=== PATIENT | female | born 1980 | race Asian ===

== ENCOUNTER → 2021-01-28 12:27 | Outpatient (BNVA) | payer MEDICAID, SELFPAY | PROVIDERS: PCP Internal Medicine; Referring Provider Internal Medicine; Visit Provider Physician Assistant | DX: Z01.818 Encounter for other preprocedural examination (principal); E66.01 Morbid (severe) obesity due to excess calories; Z98.84 Bariatric surgery status | CPT/HCPCS: 99202 ==

== ENCOUNTER 2021-02-04 07:30 | Outpatient (REF) | payer MEDICAID, SELFPAY ==
[2021-02-04 07:58] LABS: MANUAL DIFF FLAG NO
[2021-02-04 08:15] LABS: Basophils Percent Auto 0.5 % (0-2); Eosinophils Absolute Auto 0.2 X10*3/uL (0.0-0.4); Eosinophils Percent Auto 2.9 % (0-4); Hemoglobin 12.8 g/dl (12.0-16.0); Imm Gran Abs Auto 0.02 X10*3/uL (0.00-0.03); Imm Gran Pct Auto 0.3 % (0.0-0.4); Lymphocytes Absolute Auto 2.5 X10*3/uL (1.2-4.9); Lymphocytes Percent Auto 33.4 % (20-40); Mean Corpuscular Hemoglobin 28.4 pg (27.0-33.0); Mean Corpuscular Volume 88.9 fL (80.0-98.0); Mean Platelet Volume 10.9 fL (9.4-12.3); Monocytes Absolute Auto 0.5 X10*3/uL (0.1-1.2); Monocytes Percent Auto 6.7 % (2-11); Neutrophils Absolute Auto 4.3 x10*3/uL (2.0-8.3); Neutrophils Percent Auto 56.2 % (45-73); Platelet Count 251 X10*3/uL (160-400); Red Cell Distribution Width 13.9 % (11.0-16.0); White Blood Count 7.6 X10*3/uL (4.8-10.8)
[2021-02-04 08:24] LABS: Estimated Average Glucose 108 mg/dL; Hemoglobin A1c % 5.4 %
[2021-02-04 08:48] LABS: Alanine Aminotransferase 30 U/L (0-31); Albumin Level 3.9 g/dL (3.5-5.0); Alkaline Phosphatase 65 U/L (39-117); Aspartate Amino Transferase 25 U/L (5-31); Bilirubin Direct 0.2 mg/dL (0.0-0.5); Bilirubin Total 0.2 mg/dL (0.0-1.0); Total Protein 6.8 g/dL (6.5-8.0)
[2021-02-04 08:49] LABS: Alanine Aminotransferase 31 U/L (0-31); Albumin Level 3.9 g/dL (3.5-5.0); Alkaline Phosphatase 67 U/L (39-117); Anion Gap 10 (12-20); Aspartate Amino Transferase 27 U/L (5-31); Bilirubin Total 0.3 mg/dL (0.0-1.0); Blood Urea Nitrogen 16 mg/dL (9-16); C Reactive Protein 0.29 mg/dL (< or = 0.50); Calcium 8.8 mg/dL (8.4-10.2); Carbon Dioxide 28 mmol/L (22-29); Chloride 107 mmol/L (96-108); Cholesterol 157 mg/dL; Estimated Glomerular Filt Rate > 60; Glucose Random 100 mg/dL (60-115); HDL Cholesterol 48 mg/dL; Iron 71 mcg/dL (30-160); LDL Cholesterol Calculated 93 mg/dl; Percent Iron Saturation 17 % (15-50); Potassium 4.2 mmol/L (3.3-5.1); Sodium 141 mmol/L (135-145); Total Iron Binding Capacity 423 mcg/dL (228-428); Total Protein 6.7 g/dL (6.5-8.0); Triglycerides 84 mg/dL; Unsaturated Iron Binding 352 ug/dL
[2021-02-04 09:10] LABS: Thyroid Stimulating Hormone 3.94 uIU/mL (0.32-4.0)
[2021-02-04 09:21] LABS: Ferritin 14 ng/mL (10-122); TSH reflex Free T4 3.73 uIU/mL (0.32-4.0); Vitamin D 25-OH Total 26.9 ng/mL (>30)
[2021-02-04 09:29] LABS: Folate 8.4 ng/mL (> or = 4.0); Vitamin B12 1330 pg/mL (200-900)
[2021-02-04 09:45] LABS: Insulin 11 uU/mL (2-29)
[2021-02-07 04:42] LABS: PTHI 32 pg/mL (14-64)
[2021-02-07 15:17] LABS: Zinc 65 mcg/dL (60-130)
[2021-02-08 11:51] LABS: Vitamin B1 11 nmol/L (8-30)
[2021-02-09 00:41] LABS: Vitamin A 32 mcg/dL (38-98)
== END 2021-02-04 07:31 | disposition home or self-care (01) ==
LOC: HO.LAB 07:30
PROVIDERS: Physician Assistant; Absent Provider Physician Assistant Medical; Visit Provider Nurse Practitioner Psychiatric/Mental Health
DX: Z01.818 Encounter for other preprocedural examination (principal); E66.01 Morbid (severe) obesity due to excess calories; F32.A Depression, unspecified; L73.2 Hidradenitis suppurativa; Z79.899 Other long term (current) drug therapy; Z98.84 Bariatric surgery status
CPT/HCPCS: 36415; 80053; 80061; 80076; 82248; 82306; 82607; 82728; 82746; 83036; 83525; 83540; 83970; 84425; 84443; 84590; 84630; 85025; 86140

== ENCOUNTER → 2021-02-16 08:13 | Outpatient (BNVA) | payer MEDICAID, SELFPAY | PROVIDERS: PCP Internal Medicine; Visit Provider Physician Assistant ==

== ENCOUNTER → 2021-03-09 08:11 | Outpatient (BNVA) | payer MEDICAID, SELFPAY | PROVIDERS: PCP Internal Medicine; Visit Provider Dietitian, Registered | DX: E66.01 Morbid (severe) obesity due to excess calories (principal); Z68.41 Body mass index [BMI] 40.0-44.9, adult | CPT/HCPCS: 97802 ==

== ENCOUNTER → 2021-03-16 08:12 | Outpatient (BNVA) | payer MEDICAID, SELFPAY | PROVIDERS: PCP Internal Medicine; Visit Provider Physician Assistant ==

== ENCOUNTER 2021-03-18 08:44 | Outpatient (REF) | payer MEDICAID, SELFPAY ==
--- NOTE | ~2021-03-18 | FL_ITS ---
EXAMINATION: XR FLUOROSCOPY UPPER GI WITH AIR CLINICAL INFORMATION: Preprocedure evaluation. COMPARISON: None TECHNIQUE: Air-contrast upper GI examination. FINDINGS: Patient swallowed thin and thick barium without difficulty. Patient states that she has no trouble swallowing pills. There is normal apposition of the vocal cords while saying E . There is normal elevation of the soft palate while saying candy . No nasopharyngeal reflux or tracheal aspiration was identified. No Zenker's diverticulum or significant cricopharyngeal hypertrophy is seen. The esophagus demonstrated normal distensibility without persistent stricture or ulceration. No significant hiatal hernia identified. No gastroesophageal reflux was elicited during the study including with water siphon test. Patient is status post gastric bypass surgery with no definite ulceration or abnormal mass appreciated on the views that could be obtainable. There is no obstruction to flow of contrast. Visualized bowel loops are unremarkable. FLUOROSCOPY TIME: 2.0 minutes DOSE AREA PRODUCT: 21.069 Gy-cm2 (wilburn-centimeter squared). FL/FL upper GI w air IMPRESSION: No significant abnormality appreciated with patient being status post prior gastric bypass surgery.
--- NOTE | ~2021-03-18 | US_ITS ---
EXAMINATION: US COMPLETE ABDOMEN WITH LIVER ELASTOGRAPHY CLINICAL INFORMATION: Preprocedural examination. COMPARISON: None. TECHNIQUE: Real-time imaging of the abdominal viscera. Noninvasive ultrasound liver fibrosis assessment is performed using Rohit ElastPQ point quantification shear wave elastography (pSWE) with a C5-2 MHz transducer. Multiple elastography samples are obtained. FINDINGS: PANCREAS: Normal. The visualized pancreatic head and body are normal in appearance. The remainder of the pancreas is obscured from visualization by the overlying bowel gas. ABDOMINAL AORTA: The proximal, middle, and distal aortic segments are normal in caliber. INFERIOR VENA CAVA: Visualized portions are normal. LIVER: Normal. The liver demonstrates normal size, contour and echogenicity. No focal lesion or intrahepatic biliary duct dilatation. The right lobe measures 14.7 cm in length. The left lobe measures 10.7 cm in length. Portal flow is towards the liver (hepatopetal). Shear wave liver elastography median stiffness is 1.2 m/s (reference: normal median stiffness is 1.3 m/s or less). IQR/median stiffness to assess sampling precision is 0.15 (reference: good quality data set is IQR/median stiffness of 0.15 or less). GALLBLADDER: Normal. The gallbladder is physiologically distended without evidence of stones, sludge, polyps, wall thickening or pericholecystic fluid. COMMON BILE DUCT: Normal in caliber measuring 0.3 cm in diameter. RIGHT KIDNEY: Normal. No hydronephrosis. No renal calculi or focal parenchymal lesions. The kidney measures 11.7 cm in maximum dimension. LEFT KIDNEY: Normal. No hydronephrosis. No renal calculi or focal parenchymal lesions. The kidney measures 12.0 cm in maximum dimension. SPLEEN: Normal. The spleen measures 11.7 cm in maximum dimension. FREE FLUID: None. US/US abdomen comp w elastography IMPRESSION: 1. Unremarkable sonographic appearance of the abdomen. 2. Liver elastography: Measurements are consistent with a high probability of normal liver stiffness. REFERENCE: Society of Radiologists in Ultrasound Liver Stiffness Thresholds (2020): LIVER STIFFNESS THRESHOLDS: *Liver Stiffness equal or less than 1.3 m/s: High probability of being normal. *Liver Stiffness less than 1.7 m/s: In the absence of other known clinical signs, rules out compensated advanced chronic liver disease. *Liver Stiffness 1.7-2.1 m/s: Suggestive of compensated advanced chronic liver disease but need further test for confirmation. *Liver Stiffness over 2.1 m/s: Rules in compensated advanced chronic liver disease. *Liver Stiffness over 2.4 m/s: Suggestive of clinically significant portal hypertension. QUALITY OF DATA SET: *IQR/Median value equal or less than 0.15 implies a quality data set. *IQR/Median value over 0.15 implies a poor quality data set. SIGNIFICANT CHANGE FROM PRIOR EXAM: Significant change if liver stiffness measurement is 10% or greater from prior exam. OTHER CONSIDERATIONS: The stage of liver fibrosis may be overestimated in the setting of acute hepatitis, liver inflammation, elevated liver function tests, hepatic vascular congestion, obstructive cholestasis, non-fasting state, and infiltrative diseases such as amyloidosis and lymphoma. In some patients with NAFLD, the liver stiffness thresholds for compensated advanced chronic liver disease may be lower. In causes other than viral hepatitis and NAFLD, liver stiffness thresholds are not well established.
== END 2021-03-18 08:45 | disposition home or self-care (01) ==
LOC: HO.US 08:44
PROVIDERS: Visit Provider Physician Assistant
DX: Z01.818 Encounter for other preprocedural examination (principal); E66.01 Morbid (severe) obesity due to excess calories; Z98.84 Bariatric surgery status
CPT/HCPCS: 74246; 76705; 76981

== ENCOUNTER 2021-04-08 12:43 | Outpatient (REF) | payer MEDICAID, SELFPAY ==
[2021-04-09 11:03] LABS: H Pylori Breath Test Negative (Negative)
== END 2021-04-08 12:44 | disposition home or self-care (01) ==
LOC: CF 12:43
PROVIDERS: PCP Internal Medicine; Referring Provider Internal Medicine; Visit Provider Physician Assistant
DX: Z01.818 Encounter for other preprocedural examination (principal); E66.01 Morbid (severe) obesity due to excess calories; Z98.84 Bariatric surgery status; Z11.0 Encounter for screening for intestinal infectious diseases
CPT/HCPCS: 36415; 83013; 99211

== ENCOUNTER → 2021-04-10 07:57 | Outpatient (BNVA) | payer MEDICAID, SELFPAY | PROVIDERS: PCP Internal Medicine; Visit Provider Physician Assistant ==

== ENCOUNTER 2021-04-23 09:16 | Outpatient (REF) | payer MEDICAID, SELFPAY ==
--- NOTE | ~2021-04-23 | XR_ITS ---
EXAMINATION: XR CHEST CLINICAL INFORMATION: Encounter for other preprocedural examination COMPARISON: Previous chest x-ray May 2019 TECHNIQUE: 2 views of the chest were obtained. FINDINGS: No significant abnormality is noted involving the heart, lungs, mediastinum, bony thorax or soft tissues. XR/XR chest 2V IMPRESSION: Unremarkable examination.
--- NOTE | 2021-04-23 09:26 | ECG_ITS ---
Test Reason : z01.818 Blood Pressure : / mmHG Vent. Rate : 075 BPM Atrial Rate : 075 BPM P-R Int : 180 ms QRS Dur : 094 ms QT Int : 392 ms P-R-T Axes : 039 036 021 degrees QTc Int : 437 ms Normal sinus rhythm Nonspecific T wave abnormality Abnormal ECG No previous ECGs available Referred By: Chantell Andrade Electronically Signed By:Rober Mckeon
== END 2021-04-23 09:17 | disposition home or self-care (01) ==
LOC: HO.XRAY 09:16
PROVIDERS: Visit Provider Physician Assistant
DX: Z01.818 Encounter for other preprocedural examination (principal)
CPT/HCPCS: 71046; 93005

== ENCOUNTER 2021-04-30 15:11 | Day surgery (SDC) | payer MEDICAID, SELFPAY ==
--- NOTE | 2021-04-29 10:41 | P.CONAN_ITS ---
Documented by User: Reena Squires NP 04/29/21 10:43 HPI - Anesthesia Eval Consult details Narrative: 40yo F for Upper Endoscopy s/p gastric bypass 2011 [facility] Active Problems Active Problems: All Active Problems (Updated 02/13/21 @ 10:49 by Freya Duarte, [facility]) Bipolar 1 disorder (Acute) Hx of borderline personality disorder (Acute) ADHD (Acute) Chronic post-traumatic stress disorder (PTSD) (Acute) Pre-op evaluation (Acute) Gastric bypass status for obesity (Acute) Morbid obesity (Acute) Past Medical History Medical History ADHD Bipolar 1 disorder Chronic post-traumatic stress disorder (PTSD) Hx of borderline personality disorder Family History Family History Mother Obesity Diabetes mellitus Sister No problems noted. Son Leukemia Obesity Surgical History Surgical History Gastric bypass status for obesity Social History Social History Alcohol intake: never Patient Tobacco Use Status: Never used Tobacco Advance Directives: No Advance Directives Information Provided: No Meds Allergies Allergy/AdvReac Type Severity Reaction Status Date / Time No Known Allergies Allergy Unverified 01/28/21 12:46 Home Medications Medication Instructions Recorded Confirmed Last Taken Type adalimumab 40 mg/0.4 mL 40 mg SUBCUT QWEEK 01/28/21 03/16/21 Unknown History subcutaneous syringe kit (Humira(CF)) bupropion HCl 300 mg 24 hr tablet, 300 mg PO QAM 01/28/21 03/16/21 Unknown History extended release (Wellbutrin XL) clonazepam 1 mg tablet (Klonopin) 1 mg PO DAILY PRN 01/28/21 03/16/21 Unknown History minocycline 100 mg capsule 100 mg PO BID 01/28/21 03/16/21 Unknown History spironolactone 100 mg tablet 100 mg PO BID 01/28/21 03/16/21 Unknown History ziprasidone HCl 80 mg capsule 80 mg PO BID 01/28/21 03/16/21 Unknown History Exam Exam Date and Time: April 29, 2021 1041 Pertinent Lab Results Pertinent Lab Results: Laboratory Tests 02/04/21 02/04/21 07:55 07:55 WBC 7.6 Hgb 12.8 Hct 40.0 Plt Count 251 Sodium 141 Potassium 4.2 Chloride 107 Carbon Dioxide 28 BUN 16 Creatinine 0.90 Narrative Narrative: EKG 04/2021 Vent. Rate : 075 BPM ? ? Atrial Rate : 075 BPM ?? P-R Int : 180 ms? QRS Dur : 094 ms ? ? QT Int : 392 ms ? ? ? P-R-T Axes : 039 036 021 degrees ?? QTc Int : 437 ms ? Normal sinus rhythm Nonspecific T wave abnormality Abnormal ECG No previous ECGs available Assessment and Plan Assessment Anesthesia Assessment: Chart Reviewed Documented by User: Marysol Rasmussen MD 04/30/21 15:48 [facility] Active Problems Active Problems: All Active Problems (Updated 02/13/21 @ 10:49 by Freya Duarte, [facility]) Bipolar 1 disorder (Acute) Hx of borderline personality disorder (Acute) ADHD (Acute) Chronic post-traumatic stress disorder (PTSD) (Acute) Pre-op evaluation (Acute) Gastric bypass status for obesity (Acute) Morbid obesity (Acute) Hydradenitis suppurativa Past Medical History Medical History ADHD Bipolar 1 disorder Chronic post-traumatic stress disorder (PTSD) Hx of borderline personality disorder Family History Family History Mother Obesity Diabetes mellitus Sister No problems noted. Son Leukemia Obesity Family history of problems with anesthesia: No Surgical History Surgical History Gastric bypass status for obesity History of Problems with Anesthesia: No Social History Social History Alcohol intake: never Patient Tobacco Use Status: Never used Tobacco Advance Directives: No Advance Directives Information Provided: No Meds Allergies Allergy/AdvReac Type Severity Reaction Status Date / Time No Known Allergies Allergy Unverified 01/28/21 12:46 Home Medications Medication Instructions Recorded Confirmed Last Taken Type adalimumab 40 mg/0.4 mL 40 mg SUBCUT QWEEK 01/28/21 03/16/21 Unknown History subcutaneous syringe kit (Humira(CF)) bupropion HCl 300 mg 24 hr tablet, 300 mg PO QAM 01/28/21 03/16/21 Unknown History extended release (Wellbutrin XL) clonazepam 1 mg tablet (Klonopin) 1 mg PO DAILY PRN 01/28/21 03/16/21 Unknown History minocycline 100 mg capsule 100 mg PO BID 01/28/21 03/16/21 Unknown History spironolactone 100 mg tablet 100 mg PO BID 01/28/21 03/16/21 Unknown History ziprasidone HCl 80 mg capsule 80 mg PO BID 01/28/21 03/16/21 Unknown History Exam Height,Weight and Vital Signs: Height 5 ft 3 in Weight 106.141 kg Vital Signs Temp Pulse Resp BP Pulse Ox 04/30/21 15:08 97.9 F 77 18 115/74 99 Airway Mallampati Class: II TM Dist: >3cm Neck ROM: Full Loose/Missing/Broken Teeth: Yes (Broken top left) Heart: RRR Lungs: CTAB Assessment and Plan Assessment Anesthesia Assessment: Anesthesia Plan Discussed Final Anesthetic Review Family History of Problems with Anesthesia: No History of Problems with Anesthesia: No NPO: Yes ASA Class: III Final Preanesthetic Review: No Changes in Pt Med Stat, Meds/Allgs Chart Reviewed, Consent Obtained/Reviewed and Anes Risks/Benef Reviewed Patient Risk: Intermediate Procedure Risk: Low Assessment/Block/Sedation in SS: Assess/Block/Sedation-SS Anesthetic Plan Anesthetic Plan: MAC: Disposition: Standard PACU
[2021-04-29 13:37] LABS: COVID-19 Test Negative (Negative); IDNOW Serial# 9DD0AD1C
--- NOTE | 2021-04-29 20:03 | MHC.SHP ---
Pre-Procedural Eval Section A Date of Service: 04/29/21 The patient is an INPATIENT: No The History & Physical has been completed within 30 days and I have reviewed it.: Yes Section B Chief Complaint: bariatric surgery Relevant Family History (Specify if Yes): No Relevant Social History: None Present Medications: None Medical History: No relevant PMH History of Previous Operations: Relevant previous surgery/procedure and date(s) (laparosocpic gastric bypass) Allergies: Allergies Allergy/AdvReac Type Severity Reaction Status Date / Time No Known Allergies Allergy Unverified 01/28/21 12:46 Review of Systems Sugical H&P ROS: Negative: Constitution, Cardiovascular, Respiratory, Neurological, Psychiatric, Hem-Onc, Allergic/Immunologic, Gastrointestinal, Genitourinary, Musculoskeletal, Integumentary, Endocrine and Eyes/Ears/Nose/Throat Exam Surgical H&P Exam: Normal: HEENT, Normal: Heart, Normal: Lungs, Normal: Extremities, Normal: Abdomen, Normal: Skin and Normal: Neurological Plan Diagnosis/Plan: Unchanged (Upper endoscopy to assess causes of GERD, weight gain and anatomy of previous gastric bypass) I have reviewed the history and physical and performed a pertinent physical examination on my patient. No changes have occurred unless specified.
[2021-04-30 15:08] VITALS: BP 115/74; PULSE 77; RESP 18; TEMP 36.6; O2SAT 99; BMI 41.4
[2021-04-30 16:02] LABS: UPreg QC Valid YES; Urine Pregnancy NEGATIVE (NEGATIVE)
--- NOTE | 2021-04-30 16:07 | P.BOP_ITS ---
Brief Operative Note Date of Service: 04/30/21 Pre-op diagnosis: GERD Post-op diagnosis: same Procedure: PROCEDURE DATE: ?04/30/2021 PREOPERATIVE DIAGNOSIS: GERD, s/p gastric bypass POSTOPERATIVE DIAGNOSIS: ?Same as above. 1) Redundant gastric pouch, 2) Candy cane gastro-jejunostomy PROCEDURE: Pefnocbd-iimdil-aftjfazlujz with biopsies Surgeon: ?Jamar Faulkner M.D.. Ph.D. Gas Reverser: ?None ? Anesthesia: IV sedation Estimated blood loss: ?Minimal FINDINGS AND PROCEDURE: ? OPERATIVE INDICATIONS: ?The patient is a 40 year old female known to me who underwent a laparoscopic gastric bypass at [facility]. The patient had inadequate weight loss so far and has GERD.? Based on this information I recommended an upper endoscopy to evaluate the patient's symptoms.? Risks and complications of the surgery were discussed with the patient in advance particularly the possibility of perforation or bleeding that may require surgical intervention. The patient understood the risks and was in agreement with the plan. ? PROCEDURE: After informed consent was obtained by the patient, the patient was ?transferred to the Operating Room and was placed in the supine position.? After successful induction of IV sedation, a mouth block was placed and the patient was placed in the left lateral decubitus position. An upper endoscopy was performed next, the oropharynx and esophagus appeared within the normal limits. There was no hiatal hernia.? The z-line was smooth. Two biopsies were obtained from the distal esophagus 2-3 cm proximal to the GE junction and two biopsies from the GE junction. The gastric pouch was entered, appeared to be large with significant lateral redundancy. There was no gastritis and the gastrojejunostomy was patent. A biopsy was obtained from the gastric pouch. No significant bleeding was noted from any of the biopsy sites. There was no anastomotic ulcer.?There was an elongated blind end of the Paige limb (candy cane anatomy). At that point the scope was advanced into the proximal small intestine (proximal Paige limb) which appeared to be normal as well. The Paige limb and the pouch were decompressed and the scope was withdrawn from the patient's mouth. The patient was awaken and was transferred in stable condition to the Recovery Room for further care. I was present and performed all steps of the procedure. There were no residents to assist with this case. Jamar Faulkner M.D., Ph.D. Surgeon: Mart Faulkner MD Anesthesia: MAC Was an Gas Reverser used for this Procedure?: No Estimated blood loss (mL): 0 IV fluids (mL): 500 Urine output (mL): 0 (No Chery to record) Pathology: other (1) gastric pouch, 2) GEJx1, 3) distal esophagus x1) Condition: stable Disposition: PACU
[2021-04-30 16:34] VITALS: BP 109/77; PULSE 85; RESP 14; TEMP 37.1; O2SAT 98
[2021-04-30 16:49] VITALS: BP 109/67; PULSE 74; RESP 18; O2SAT 100
== END 2021-04-30 17:01 | disposition home or self-care (01) ==
PROVIDERS: Nurse Practitioner; PCP Internal Medicine; Visit Provider Surgery
PROC: 0DJ08ZZ Inspection of Upper Intestinal Tract, Via Natural or Artificial Opening Endoscopic (ICD-10-PCS; CPT 43235; principal; 2021-04-30 15:50)
DX: K21.9 Gastro-esophageal reflux disease without esophagitis (principal); K91.1 Postgastric surgery syndromes; Z98.84 Bariatric surgery status; E66.01 Morbid (severe) obesity due to excess calories; Z68.41 Body mass index [BMI] 40.0-44.9, adult; Z20.822 Contact with and (suspected) exposure to COVID-19
CPT/HCPCS: 43239; 81025; 87635; 88305; 88341; 88342; J2250

== ENCOUNTER → 2021-05-01 08:37 | Outpatient (BNVA) | payer MEDICAID, SELFPAY | PROVIDERS: PCP Internal Medicine; Visit Provider Surgery ==

== ENCOUNTER → 2021-05-05 07:47 | Outpatient (REF) | payer MEDICAID, SELFPAY ==
--- NOTE | 2021-05-05 07:58 | CA_ITS ---
Acquisition Time: 2021-05-05 08:02:21 Total Exercise Time: 00:07:00 Test Indications: Abnormal ECG Medications: BUPROPION CLONAZAPAM MINOCYCLINE ADALIMUMAB Protocol: JAYRO Max HR: 173 BPM 95% of Pred: 182 BPM Max BP: 140/084 mmHG Max Work Load: 8.5 METS Exercise stress test with exercise 7 min of Jayro protocol, without anginal symptoms, with one PVC, with normotensive response to exercise, without EKG changes meeting criteria for ischemia. Test reviewed with Dr Vila. Referred By: Mart Faulkner Overread By: MADIHA ORELLANA
== END ==
LOC: HO.CARD 07:47
PROVIDERS: Visit Provider Surgery
DX: R94.31 Abnormal electrocardiogram [ECG] [EKG] (principal); Z79.899 Other long term (current) drug therapy
CPT/HCPCS: 93017

== ENCOUNTER → 2021-05-06 08:09 | Outpatient (BNVA) | payer MEDICAID, SELFPAY | PROVIDERS: PCP Internal Medicine; Visit Provider Surgery ==

== ENCOUNTER → 2021-05-07 13:45 | Outpatient (BNVA) | payer MEDICAID, SELFPAY | PROVIDERS: PCP Internal Medicine; Visit Provider Surgery ==

== ENCOUNTER 2021-05-13 06:10 | Inpatient (IN) | payer MEDICAID, SELFPAY ==
[2021-05-07 11:32] LABS: MANUAL DIFF FLAG NO
[2021-05-07 11:39] LABS: Basophils Percent Auto 0.4 % (0-2); Eosinophils Absolute Auto 0.2 X10*3/uL (0.0-0.4); Eosinophils Percent Auto 2.6 % (0-4); Hematocrit 40.3 % (37.0-47.0); Hemoglobin 12.9 g/dl (12.0-16.0); Imm Gran Abs Auto 0.08 X10*3/uL (0.00-0.03); Imm Gran Pct Auto 0.9 % (0.0-0.4); Lymphocytes Absolute Auto 2.3 X10*3/uL (1.2-4.9); Lymphocytes Percent Auto 24.6 % (20-40); Mean Corpuscular Hemoglobin 28.2 pg (27.0-33.0); Mean Platelet Volume 10.9 fL (9.4-12.3); Monocytes Absolute Auto 0.5 X10*3/uL (0.1-1.2); Monocytes Percent Auto 5.5 % (2-11); Neutrophils Absolute Auto 6.1 x10*3/uL (2.0-8.3); Platelet Count 276 X10*3/uL (160-400); Red Blood Count 4.58 X10*6/uL (4.20-5.50); Red Cell Distribution Width 13.8 % (11.0-16.0); White Blood Count 9.3 X10*3/uL (4.8-10.8)
[2021-05-07 12:03] LABS: Estimated Average Glucose 114 mg/dL; Hemoglobin A1C 152.6057 umol/L; Hemoglobin A1c % 5.6 %
[2021-05-07 12:11] LABS: Alanine Aminotransferase 32 U/L (0-31); Albumin Level 4.2 g/dL (3.5-5.0); Alkaline Phosphatase 69 U/L (39-117); Anion Gap 11 (12-20); Aspartate Amino Transferase 24 U/L (5-31); Bilirubin Total 0.5 mg/dL (0.0-1.0); Blood Urea Nitrogen 16 mg/dL (9-16); C Reactive Protein 0.26 mg/dL (< or = 0.50); Calcium 9.1 mg/dL (8.4-10.2); Carbon Dioxide 26 mmol/L (22-29); Chloride 104 mmol/L (96-108); Cholesterol 141 mg/dL; Estimated Glomerular Filt Rate > 60; Glucose Random 107 mg/dL (60-115); HDL Cholesterol 43 mg/dL; INTERNATIONAL NORM RATIO 1.1 (0.9-1.1); LDL Cholesterol Calculated 85 mg/dl; Potassium 4.3 mmol/L (3.3-5.1); Prothrombin Time 12.1 SEC (9.9-13.0); Sodium 137 mmol/L (135-145); Total Protein 7.2 g/dL (6.5-8.0); Triglycerides 65 mg/dL
[2021-05-07 12:13] LABS: Partial Thromboplastin Time 36.2 SEC (24.1-38.0)
[2021-05-07 12:24] LABS: TSH reflex Free T4 1.97 uIU/mL (0.32-4.0)
[2021-05-07 12:33] LABS: Insulin 12 uU/mL (2-29)
[2021-05-08 10:07] VITALS: BMI 40.7
--- NOTE | 2021-05-09 00:26 | P.HPSUR_ITS ---
Pre-Procedural Eval Section A Date of Service: 05/09/21 The patient is an INPATIENT: Yes The History & Physical has been completed within 30 days and I have reviewed it.: Yes Section B Chief Complaint: obesity Relevant Family History (Specify if Yes): No Relevant Social History: None Present Medications: None Medical History: No relevant PMH History of Previous Operations: Relevant previous surgery/procedure and date(s) (gastric bypass) Allergies: Allergies Allergy/AdvReac Type Severity Reaction Status Date / Time No Known Allergies Allergy Unverified 05/08/21 10:02 Review of Systems Sugical H&P ROS: Negative: Constitution, Cardiovascular, Respiratory, Neurological, Psychiatric, Hem-Onc, Allergic/Immunologic, Gastrointestinal, Genitourinary, Musculoskeletal, Integumentary, Endocrine and Eyes/Ears/Nos e/Throat Exam Surgical H&P Exam: Normal: HEENT, Normal: Heart, Normal: Lungs, Normal: Extremities, Normal: Abdomen, Normal: Skin and Normal: Neurological Plan Diagnosis/Plan: Unchanged I have reviewed the history and physical and performed a pertinent physical examination on my patient. No changes have occurred unless specified.
--- NOTE | 2021-05-12 10:01 | P.CONAN_ITS ---
Documented by User: Reena Squires NP 05/12/21 10:03 HPI - Anesthesia Eval Consult details Narrative: 40yo F for Gastrectomy Sleeve, EGD, poss diaphragmatic hernia, poss ventral hernia, poss open with Revision Gastric Bypass s/p EGD with TIVA 04/30/2021 s/p gastric bypass 2011 [facility] Active Problems Active Problems: All Active Problems (Updated 05/08/21 @ 10:03 by Mery Mares RN) Morbid obesity (Acute) Pre-op evaluation (Acute) Abnormal EKG (Acute) Gastric bypass status for obesity (Acute) Past Medical History Medical History (Updated 05/13/21 @ 11:20 by Mart Faulkner MD) ADHD Bipolar 1 disorder Chronic post-traumatic stress disorder (PTSD) Depression Hidradenitis Hx of borderline personality disorder Family History Family History Mother Obesity Diabetes mellitus Sister No problems noted. Son Leukemia Obesity Family history of problems with anesthesia: No Surgical History Surgical History (Updated 05/13/21 @ 11:20 by Mart Faulkner MD) Gastric bypass status for obesity Hx of esophagogastroduodenoscopy History of Problems with Anesthesia: No Social History Social History Are you a primary nurse behavioral health care to a significant other at home: No Do you presently have visiting nurse or other home services: No Alcohol intake: never Patient Tobacco Use Status: Never used Tobacco Use of substances other than those prescribed or required for medical reasons: No Currently Displaying Signs/Symptoms of Drug Intoxication Withdrawal: No Have you been hit, kicked, punched, or otherwise hurt by someone within the past year? If so, by whom?: No Are you DNR?: No Advance Directives: No Advance Directives Information Provided: Yes (mailed w/ instructions) Advance Directives on File: No Recently lost weight without trying: No How much weight loss: 24-33 pounds Eating poorly because of decreased appetite: No Nutrition screen score: 3 Nutrition Risks: No Nutritional Risk Patient : No FDLMP: 04/17/21 : No Meds Allergies Allergy/AdvReac Type Severity Reaction Status Date / Time No Known Allergies Allergy Unverified 05/08/21 10:02 Home Medications Medication Instructions Recorded Confirmed Last Taken Type bupropion HCl 300 mg 24 hr tablet, 300 mg PO QAM 01/28/21 05/08/21 05/07/21 History extended release (Wellbutrin XL) clonazepam 1 mg tablet (Klonopin) 1 mg PO DAILY PRN 01/28/21 05/08/21 05/07/21 History minocycline 100 mg capsule 100 mg PO BID 01/28/21 05/08/21 05/07/21 History spironolactone 100 mg tablet 100 mg PO BID 01/28/21 05/08/21 05/07/21 History valacyclovir 500 mg tablet 1 tab PO DAILY 05/08/21 05/08/21 Unknown History ziprasidone HCl 80 mg capsule 2 cap PO BEDTIME 05/08/21 05/08/21 Unknown History Exam Exam Date and Time: May 12, 2021 1001 Height,Weight and Vital Signs: Height 5 ft 3 in Weight 104.326 kg Pertinent Lab Results Pertinent Lab Results: Laboratory Tests 05/07/21 05/07/21 05/07/21 11:16 11:30 11:30 WBC 9.3 RBC 4.58 Hgb 12.9 Hct 40.3 MCV 88.0 MCH 28.2 MCHC 32.0 RDW 13.8 Plt Count 276 MPV 10.9 Immature Gran % (Auto) 0.9 H Neut % (Auto) 66.0 Lymph % (Auto) 24.6 [place] % (Auto) 5.5 Eos % (Auto) 2.6 Baso % (Auto) 0.4 Lymph # (Auto) 2.3 [place] # (Auto) 0.5 Eos # (Auto) 0.2 Baso # (Auto) 0.0 Abs Immat Gran (auto) 0.08 H Absolute Neuts (auto) 6.1 Absolute Nucleated RBC 0.000 Nucleated RBC % (auto) 0.0 PT 12.1 INR 1.1 APTT 36.2 Sodium Potassium Chloride Carbon Dioxide Anion Gap BUN Creatinine Estim Creat Clear Calc Estimated GFR Random Glucose Estimat Average Glucose Hemoglobin A1c % Insulin Level Calcium Total Bilirubin AST ALT Alkaline Phosphatase C-Reactive Protein Total Protein Albumin Triglycerides Cholesterol LDL Cholesterol, Calc HDL Cholesterol TSH Blood Type O Positive Antibody Screen NEGATIVE 05/07/21 05/07/21 11:30 11:30 WBC RBC Hgb Hct MCV MCH MCHC RDW Plt Count MPV Immature Gran % (Auto) Neut % (Auto) Lymph % (Auto) [place] % (Auto) Eos % (Auto) Baso % (Auto) Lymph # (Auto) [place] # (Auto) Eos # (Auto) Baso # (Auto) Abs Immat Gran (auto) Absolute Neuts (auto) Absolute Nucleated RBC Nucleated RBC % (auto) PT INR APTT Sodium 137 Potassium 4.3 Chloride 104 Carbon Dioxide 26 Anion Gap 11 L BUN 16 Creatinine 0.82 Estim Creat Clear Calc TNP Estimated GFR > 60 Random Glucose 107 Estimat Average Glucose 114 Hemoglobin A1c % 5.6 Insulin Level 12 Calcium 9.1 Total Bilirubin 0.5 AST 24 ALT 32 H Alkaline Phosphatase 69 C-Reactive Protein 0.26 Total Protein 7.2 Albumin 4.2 Triglycerides 65 Cholesterol 141 LDL Cholesterol, Calc 85 HDL Cholesterol 43 TSH 1.97 Blood Type Antibody Screen Narrative Narrative: EKG 04/2021 Vent. Rate : 075 BPM ? ? Atrial Rate : 075 BPM ?? P-R Int : 180 ms? QRS Dur : 094 ms ? ? QT Int : 392 ms ? ? ? P-R-T Axes : 039 036 021 degrees ?? QTc Int : 437 ms ? Normal sinus rhythm Nonspecific T wave abnormality Abnormal ECG No previous ECGs available Assessment and Plan Assessment Anesthesia Assessment: Chart Reviewed Final Anesthetic Review Family History of Problems with Anesthesia: No History of Problems with Anesthesia: No Documented by User: Glen Jimenez MD 05/13/21 14:54 [facility] Past Medical History Medical History (Updated 05/13/21 @ 11:20 by Mart Faulkner MD) ADHD Bipolar 1 disorder Chronic post-traumatic stress disorder (PTSD) Depression Hidradenitis Hx of borderline personality disorder Family History Family History Mother Obesity Diabetes mellitus Sister No problems noted. Son Leukemia Obesity Surgical History Surgical History (Updated 05/13/21 @ 11:20 by Mart Faulkner MD) Gastric bypass status for obesity Hx of esophagogastroduodenoscopy Social History Social History Are you a primary nurse behavioral health care to a significant other at home: No Do you presently have visiting nurse or other home services: No Alcohol intake: never Patient Tobacco Use Status: Never used Tobacco Use of substances other than those prescribed or required for medical reasons: No Currently Displaying Signs/Symptoms of Drug Intoxication Withdrawal: No Have you been hit, kicked, punched, or otherwise hurt by someone within the past year? If so, by whom?: No Are you DNR?: No Advance Directives: No Advance Directives Information Provided: Yes (mailed w/ instructions) Advance Directives on File: No Recently lost weight without trying: No How much weight loss: 24-33 pounds Eating poorly because of decreased appetite: No Nutrition screen score: 3 Nutrition Risks: No Nutritional Risk Patient : No FDLMP: 04/17/21 : No Meds Allergies Allergy/AdvReac Type Severity Reaction Status Date / Time No Known Allergies Allergy Unverified 05/08/21 10:02 Home Medications Medication Instructions Recorded Confirmed Last Taken Type bupropion HCl 300 mg 24 hr tablet, 300 mg PO QAM 01/28/21 05/08/21 05/07/21 History extended release (Wellbutrin XL) clonazepam 1 mg tablet (Klonopin) 1 mg PO DAILY PRN 01/28/21 05/08/21 05/07/21 History minocycline 100 mg capsule 100 mg PO BID 01/28/21 05/08/21 05/07/21 History spironolactone 100 mg tablet 100 mg PO BID 01/28/21 05/08/21 05/07/21 History valacyclovir 500 mg tablet 1 tab PO DAILY 05/08/21 05/08/21 Unknown History ziprasidone HCl 80 mg capsule 2 cap PO BEDTIME 05/08/21 05/08/21 Unknown History Exam Airway Mallampati Class: III TM Dist: >3cm Neck ROM: Full Loose/Missing/Broken Teeth: Yes (Molar , chipped ) Heart: rrr Lungs: bl breath sounds Assessment and Plan Assessment Anesthesia Assessment: Anesthesia Plan Discussed Final Anesthetic Review NPO: Yes ASA Class: III Final Preanesthetic Review: Meds/Allgs Chart Reviewed, Consent Obtained/Reviewed and Anes Risks/Benef Reviewed Patient Risk: High Procedure Risk: Intermediate Anesthetic Plan Anesthetic Plan: GA Disposition: Inp. Admit - Standard Bed
[2021-05-12 13:23] LABS: COVID-19 Test Negative (Negative)
[2021-05-13] VITALS (13 sets, daily range): BP systolic 107–138; BP diastolic 58–88; PULSE 62–88; RESP 16–18; TEMP 36.3–37.1; O2SAT 98–100
[2021-05-13 06:35] LABS: UPreg QC Valid YES; Urine Pregnancy NEGATIVE (NEGATIVE)
[2021-05-13] MEDS: Lactated Ringers 1,000 ML 100 ML IVCONT ×3 (07:12→22:24)
--- NOTE | 2021-05-13 08:16 | P.BOP_ITS ---
Brief Operative Note Date of Service: 05/13/21 Pre-op diagnosis: Refractory morbid obesity and comorbidities (see below) Post-op diagnosis: same (Extensive adhesions and large gastric pouch) Procedure: INITIAL PATIENT BMI ON PRESENTATION AT OUR OFFICE: 45.6 kg/m2 LAST BMI BEFORE SURGERY: 41.3 kg/m2 COMORBIDITIES: depression ?The patient presented to the Weight Management Program with significant obesity that was negatively impacting the patient's comorbidities as listed above.? The program is a phased program with a special focus on preoperative medical weight management to promote substantial weight loss and prepare the patients for the second phase of the program: bariatric surgery. The patient participated in an intensive weekly lifestyle ?intervention and exercise program during which the patient ?has lost between the initial office visit and the last preoperative visit 29.4 lbs, or 11.25% of initial actual body weight. It was deemed appropriate for the patient to now have bariatric surgery. In light of the current Covid-19 pandemic and the well documented strong association of obesity and increased risk of worse outcomes if infected with Covid-19 (REFERENCES: https://pubmed.ncbi.nlm.nih.gov/33858073/ ,? https://pubmed.ncbi.nlm.nih.gov/18205817/ ), any delay in undergoing bariatric surgery may lead to the patient's worsening health condition and increased?risk of more severe Covid-19 disease if infected. In addition a recent?study from [facility] published in [facility] on 03/09/2021 ([email or web address]) found that, among patients with obesity, substantial weight loss achieved with surgery was associated with improved outcomes of COVID-19 infection. The findings suggest that obesity can be a modifiable risk factor for the severity of COVID-19 infection. In addition, the patient met the BMI-criteria for bariatric surgery based on the BMI on initial presentation. The patient should not be penalized for achieving such weight loss because ?it is not sustainable long-term without surgical intervention and it was achieved in preparation for bariatric surgery ?under my direction and based on my published research ([email or web address] and? https://www.soard.org/article/[email or web address](02)11841-X/pdf ) ?that a 10% preoperati ve weight loss improves long-term weight loss after surgery and reduces perioperative complications.? Insurance carriers such as [facility] have endorsed my recommendations ?and have included in their policies criteria to include a 10% preoperative weight loss requirement. PROCEDURE: [id number], laparoscopic repair of incarcerated diaphragmatic hernia, laparoscopic lysis of adhesions and laparoscopic sleeve gastrectomy INDICATIONS: This is a 40 year-old female with a history of failed gastric bypass surgery and associated comorbid conditions as described previously. After appropriate workup, the patient was electively scheduled for laparoscopic, possibly open sleeve gastrectomy of the gastric pouch. The risks and complications of the procedure were discussed with the patient in advance, particularly the possibility of ; pulmonary embolism; staple line leak; bleeding; GERD; cardiac, pulmonary, or renal complications; as well as long-term problems such as insufficient weight loss, vitamin deficiency, strictures, or ulcers. The patient understood all the risks, and was in agreement to proceed with surgery. DESCRIPTION OF PROCEDURE: After informed consent was obtained from the patient, the patient was given preoperative antibiotics, and was transferred to the operating room. After successful induction of general anesthesia, pneumatic compressive devices were placed on both lower extremities. An upper endoscopy was performed next. The oropharynx and esophagus appeared to be within normal limits. There was no diaphragmatic hernia present consistent with the findings of the preoperative upper GI. The stomach was entered. Then after all fluid and air were suctioned and the stomach was fully decompressed, the scope was withdrawn and secured in the mid esophagus. The patient was then prepped and draped in the usual sterile manner, and abdominal access was established at the right upper quadrant with the Ellen technique. A 12 mm blunt port was inserted, and the abdomen was insufflated with CO2 to a pressure of 15 mmHg. Under direct visualization, additional ports were placed, specifically two 5 mm Versi-step ports to the left upper quadrant, and a 5 mm Versi-Step port to the right upper quadrant. 1% lidocained plan was used to infiltrate all port sites as well as all fascia defects. Using the EndoClose suture passer device, I placed a #1 Polysorb tie across the falciform ligament in order to retract it up against the abdominal wall and prevent injury of the ligament with our instruments during the procedure. Following that, the patient was placed in a steep reverse Trendelenburg position. An additional 5 mm port was placed to the right flank for the Mediflex retractor that was used to retract the left lobe of the liver. There were adhesions between the undersurface of the left lobe of the liver which was lysed with the Thunderbeat. Once this was done the liver retractor was re-positioned to get exposure to the hiatal area. Some omental fat overlying the Paige limb was mobilized and the gastro- jejunostomy was identified. I continued by dissecting between the gastric remnant and the gastric pouch . There were some posterior short gastric vessels that were not previously divided. Those were clipped and divided with the Thunderbeat. Separation of the gastric pouch from the spleen was difficult because of the severe fibrotic reaction from the use of Peristrips at the previous operation. Nevertheless, those were divided and that allowed exposure to the left deidra The gastro-esophageal fat pad was opened with the ultrasonic device (Thunderbeat, Olympus) and the anterior esophagus and hiatus were exposed. The angle of His was opened with the ultrasonic device the fundus of the stomach from any diaphragmatic and splenic attachments. Adhesiolysis took approximately 90 min to complete. There was an obvious significant-sized hiatal hernia. I continued dissecting along the hiatus toward the left deidra and the angle of His. I fully mobilized the fat pad that was incarcerated in the hernia. I then continued by dissecting even further into the posterior retro-esophageal space all the way to the angle of His. I continued to mobilize the esophagus into the mediastinum circumferentially. Both vagal nerves were seen and preserved. At that point, I was able to have at least 3 to 5 cm of esophagus into the abdomen.? After I completely mobilized the esophagus from both the left and right deidra and I had a good mobilization of the esophagus circumferentially, I closed the hernia defect with two interrupted #0 Surgidac sutures using the Endo Stitch device, which were placed one anterior and one posterior to the esophagus. ? There was significant redundancy of the stomach laterally and posteriorly. The redundant stomach was then divided with one Endo JONATHAN-45 and one JONATHAN-60 articulating purple load using the AEON stapler and loads. Every effort was made that the gastric sleeve had a tubular shape and an even caliber throughout. Once the sleeve resection was completed, the staple line of the gastric sleeve was reinforced with Hemoclips. The resected stomach was retrieved without difficulty from the Ellen port. ?An upper endoscopy was performed. There was no narrowing at the GE junction. The scope was easily advanced all the way to the jejunum which was clearly visualized. There was no narrowing anywhere and the sleeve's caliber was even throughout. The sleeve's staple line was inspected and there was no evidence of ischemia, bleeding or dehiscence. At that point the gastroscope was withdrawn from the patient?s mouth while we were decompressing the bowel and the stomach from any remaining air. I looked into the lesser sac to see how the sleeve was situating and it was situating well. There was no bleeding from the staple line, spleen, or short gastric vessels. The Mediflex retractor was removed, and the undersurface of the liver was inspected and there was no bleeding. The patient was placed in supine position. I closed the fascial defect of the 12 mm port site with a figure of eight #1 Polysorb suture. Then 100 cc 0.25 % Marcaine plain with 10 mg of Dexamethasone were used to infiltrate the fascial closure as well as all skin incisions. At this point, the abdomen was deflated, all ports were removed under direct vision, and no bleeding was noted from any of the port sites. The skin incisions were irrigated with saline and were closed with 4-0 absorbable monofilament sutures. Steri-Strips and OpSites were used to cover all incisions. The patient was extubated and was transferred in stable condition to the recovery room for further care. I was present and performed all kang parts of the procedure. Luisito Andrade was the ophthalmic assistant. There were no residents to assist with this case. Jamar Faulkner MD, PhD, FACS Surgeon: Mart Faulkner MD Anesthesia: GETA, local and other (TAP block) Was an Restaurant Manager used for this Procedure?: No Restaurant Manager: Chantell Andrade Estimated blood loss (mL): 10 IV fluids (mL): 2,800 Pathology: other (stomach) Condition: stable Disposition: PACU
--- NOTE | 2021-05-13 08:19 | PM.PNGS ---
Subjective Subjective Date of Service: 05/14/21 Interval history: Patient has mild incisional pain, but was able to ambulate and use the incentive spirometer. She is tolerating phase 1 bariatric diet Physical Exam Vital Signs: Vital Signs: Last Vital Signs Temp 97.6 F 05/13/21 06:30 Pulse 74 05/13/21 06:30 Resp 18 05/13/21 06:30 BP 122/74 05/13/21 06:30 Pulse Ox 98 05/13/21 06:30 BMI result Body Mass Index 40.7 GI: Inspection: Yes normal to inspection, Yes incision (clean, dry and intact) and Yes obesity Extrem: Right lower extremity: normal to inspection (no calf tenderness) Left lower extremity: normal to inspection (no calf tenderness) Objective Data Active Medications Lactated Ringer's (Lr) 1,000 mls @ 100 mls/hr IVCONT .Q10H [facility] Last Admin: 05/13/21 07:12 Dose: 100 mls/hr Documented by: ERNESTO Labs CBC & Chem 7: 05/14/21 06:05 05/14/21 06:05 Labs: Laboratory Results - last 24 hr 05/12/21 05/13/21 13:00 06:15 Urine Test NEGATIVE COVID-19 (LG) Negative COVID-19 Clin Com See Note Procedures Date of Service Date of Service: 05/14/21 Progress Note: A&P Assessment and plan (1) Morbid obesity: Status: Acute Assessment and Plan: s/p laparoscopic sleeve gastrectomy of the gastric pouch, lysis of adhesions Doing well Check am labs. If OK, will discharge home? (2) Gastric bypass status for obesity: Status: Acute (3) Depression: (4) Hidradenitis: (5) S/P laparoscopic sleeve gastrectomy: Status: Acute (6) Intra-abdominal adhesions: Status: Acute Fall Risk Details Current Medications: Current Medications Lactated Ringer's (Lr) 1,000 mls @ 100 mls/hr IVCONT .Q10H [facility] Last Admin: 05/13/21 07:12 Dose: 100 mls/hr Documented by: Time Spent With Patient Time: Total time spent is greater than 50% in coordination of care (as documented) at patient's floor/unit and/or counseling patient: Time with patient: less than 15 minutes Quality Stroke Does the patient have a stroke diagnosis?: No VTE Prior VTE?: No VTE Risk Level:: Surgical - moderate VTE Device Contraindication: N/A - Device Ordered VTE Drug Contraindication: Treatment Not Indicated
[2021-05-13] MEDS: Famotidine/PF 20 MG/2 ML VIAL IVPUSH ×2 (11:51→20:01)
--- NOTE | 2021-05-13 12:00 | P.DS_ITS ---
DS: Providers Provider Date of Service: 05/14/21 Date of admission: 05/13/21 06:10 Primary care physician: Carlo Santana MD DS: Diagnosis Discharge Diagnosis (1) Morbid obesity: Status: Acute (2) Gastric bypass status for obesity: Status: Acute (3) Depression: (4) Hidradenitis: (5) S/P laparoscopic sleeve gastrectomy: Status: Acute (6) Intra-abdominal adhesions: Status: Acute DS: Summary Hospital Course Hospital Course: ADMITTING DIAGNOSIS: morbid obesity, s/p GBP, ADHD, Bipolar, PTSD DISCHARGE DIAGNOSIS: same, s/p laparoscopic sleeve gastrectomy and lysis of adhesions PAST SURGICAL HISTORY: RNYGBP 2011 PROCEDURE: upper endoscopy, laparoscopic sleeve gastrectomy and lysis of adhesions DISCHARGE SUMMARY: History of Present Illness: The patient is a 40 year-old woman with a BMI of 45.6 kg/m2 and associated co- morbidities as described above. The patient had extensive work-up,lost 29.4 lbs preoperatively and was electively scheduled for laparoscopic, possible open sleeve gastrectomy s/p RNYGBP. Risks and complications of the surgery were discussed with the patient in advance, particularly the possibility of , pulmonary embolism, anastomotic leak, bleeding, bowel injury, GERD, cardiac, renal or pulmonary complications. The patient understood all the risks and was in agreement with the surgical plan. Hospital Course: The patient underwent an uneventful laparoscopic sleeve gastrectomy with lysis of adhesions on the day of admission. Postoperatively, the patient was transferred to the surgical floor. The patient received IV Acetaminophen and IV dilaudid for pain control. Patient was started on bariatric phase 1 diet POD #0. On postoperative day one, the patient was feeling well without nausea, vomiting, fevers, or tachycardia. The patient had some mild incisional pain and the abdomen was soft. Woodrow drain was placed in abdominal cavity. On the morning of postoperative day one, the patient was continued on 1 ounce of water or ice every half hour. During the day, the patient did fairly well, having some incisional pain, but able to ambulate adequately and to tolerate liquids well. Since the patient is doing well, we decided that the patient was ready to be discharged. The patient was given instructions to follow-up with me next week and to call my office for any fever over 101, persistent abdominal pain, nausea, vomiting, GERD, symptoms of DVT such as calf tenderness, or leg swelling, or pulmonary embolism such as chest pain or shortness of breath. The patient was also instructed to drink 40-60 ounces of liquids per day using the 1-ounce cups. The patient had been given prescriptions for Tylenol for pain, Zofran prn for nausea, and pantoprazole and carafate previously. The patient was encouraged to ambulate and use the incentive spirometer. The patient was allowed to shower, but no baths, and encouraged to stay active at home. All of these instructions were given to the patient personally. All questions were answered and the patient understood all instructions, the instructions were also given to the patient in print. Time Spent with Patient Time attestation: Total time spent providing and/or coordinating discharge services: Discharge coordination time: Less than 30 minutes Quality: Stroke Does the patient have a stroke diagnosis?: No Physical Exam Vital Signs: Vital Signs: Last Vital Signs Temp 97.5 F 05/13/21 11:23 Pulse 78 05/13/21 11:53 Resp 16 05/13/21 11:53 BP 127/88 05/13/21 11:53 Pulse Ox 99 05/13/21 11:53 BMI result Body Mass Index 40.7 DS: Data Data Completed and Pending Pending studies at discharge: Pending at discharge 05/13/21 10:52 Surgical [PTH] Routine Labs on day of discharge: Laboratory Results - last 24 hr 05/12/21 05/13/21 13:00 06:15 Urine Test NEGATIVE COVID-19 (LG) Negative COVID-19 Clin Com See Note Discharge Plan Discharge Anticipated Discharge Date/Time: 05/14/21 10:21 Patient Disposition: Home, Self-Care Discharge Diagnosis: s/p sleeve gastrectomy Referrals: Carlo Santana MD [Primary Care Provider] - 1 Week Discharge Medications: Continued ziprasidone HCl 80 mg capsule 2 cap PO BEDTIME 0RF valacyclovir 500 mg tablet 1 tab PO DAILY 0RF pantoprazole 40 mg tablet,delayed release (DR/EC) 40 mg PO DAILY Qty: 30 2RF sucralfate 100 mg/mL suspension 10 ml PO BID Qty: 400 2RF ondansetron HCl 4 mg tablet 4 mg PO Q12H Qty: 20 0RF minocycline 100 mg capsule 100 mg PO BID 0RF bupropion HCl [Wellbutrin XL] 300 mg tablet extended release 24 hr 300 mg PO QAM 0RF clonazepam [Klonopin] 1 mg tablet 1 mg PO DAILY PRN (Reason: Anxiety) 0RF Held spironolactone 100 mg tablet 100 mg PO BID 0RF Hold Instructions: Discuss restart with Dr Faulkner Discontinued cholecalciferol (vitamin D3) 50 mcg (2,000 unit) capsule 50 mcg PO DAILY Qty: 30 6RF vitamin A palmitate 10,000 unit tablet 20,000 unit PO DAILY 14 Days Qty: 28 0RF polyethylene glycol 3350 [Miralax] 17 gram powder in packet 17 g PO DAILY Qty: 14 0RF Rx Instructions: Mix each packet with 8oz of water and do 7 packets on 05/11/21 and another 7 packets on Discharge Orders: Discharge Order (Routine); Ordered 05/14/21 Ordered By: Mart Faulkner Diet: other Activity on Discharge: No heavy lifting Stand Alone Forms: Patient Portal Discharge page Care Plan Goals: weight loss Health Concerns: obesity Plan of Treatment: No tub baths, sex or returning to work until discussed at first post op appointment. No exercise, alcohol, tobacco or illegal drug use. Continue to use incentive spirometer hourly while awake. Walk in home for 5- 10 minutes every 2 hours during the first week. Continue phase 1 diet today and start phase 2 diet tomorrow morning. Follow all instructions in the bariatric handbook and call with any questions. 1. Please call your doctor or come back to the emergency room should any new symptoms arise. 2. You will receive a courtesy call from [facility] 24-48 hours after discharge. 3. Activity: abstain from alcohol, practice limited stair climbing, no bending, no driving, no exercise, no illicit substances, no lifting, no sex, no tub bath, no work. 4. Diet: continue as discussed with Dr. Faulkner. 5. Dressing Change/Wound Care: Do not change or remove surgical dressings unless they are wet or soiled. 6. Call your doctor if: - Your temperature exceeds 101.5 F - You experience excessive pain or swelling - You have an unexpected reaction to medication - You have excessive bleeding - You experience continued vomiting/nausea - Your incision begins to separate - Your incision shows signs of infection such as increased redness, swelling, excessive pain, heat, or drainage (light blood or clear fluid is normal) 7. General instructions: No lifting greater than 5 lbs for the next 4 weeks[address] driving within 24 hours of taking narcotic pain medications. If you do not move your bowels in the next 2 days, please take milk of magnesia over the counter. Please follow the post op diet and do not advance your diet until you are seen in the office in about 2 weeks. Please walk around your home every hour or two to prevent blood clots from forming in your legs. You do not need to wake from sleeping to walk. Please sleep in a bed or couch to prevent kinking at the hips and knees. Please take your incentive spirometer (your lung forge utility worker) home with you and use it for the next few days to prevent pneumonias. You may shower, no hot tubs, baths or swimming pools. Please call the office with any questions or concerns such as increasing abdominal pain, fever, chills, shortness of breath, chest pain, leg pain or swelling, or redness or drainage from your incisions. Do not hesitate to contact the office with any questions at [phone]. 8. Drain care per Dr Faulkner. The patient's medical history has been reviewed and they are considered low risk for post op DVT and therefore DVT prophylaxis is not considered necessary. Travel after surgery was reviewed. The patient has not disclosed any travel plans during the first 30 days after surgery and they have been advised that within the first 30 days after surgery any bus, plane, train or car travel over 2 hours in duration is contraindicated due to the possibility of developing blood clots from immobility. Any travel, needs to include periods of ambulation of 10 minutes in duration every 2 hours. The patient was instructed to discuss any plans for travel during this period with their bariatric surgeon. Assessment: stable, post op sleeve gastrectomy Discharge Date/Time: 05/14/21 09:16
[2021-05-13 12:18] LABS: Hematocrit 37.6 % (37.0-47.0); Hemoglobin 12.1 g/dl (12.0-16.0)
[2021-05-13] MEDS: Metoclopramide HCl 10 MG/2 ML VIAL IVPUSH (12:22)
[2021-05-13 12:31] LABS: Anion Gap 11 (12-20); Blood Urea Nitrogen 12 mg/dL (9-16); Calcium 8.7 mg/dL (8.4-10.2); Carbon Dioxide 26 mmol/L (22-29); Chloride 105 mmol/L (96-108); Creatinine Clr Calc Pharmacy 110.1; Estimated Glomerular Filt Rate > 60; Glucose Random 166 mg/dL (60-115); Potassium 4.3 mmol/L (3.3-5.1); Sodium 138 mmol/L (135-145)
[2021-05-13] MEDS: ondansetron HCL 4 MG/2 ML VIAL IVPUSH ×2 (13:03→19:57)
[2021-05-13] MEDS: ceFAZolin Sodium/Dextrose,Iso 2 GM/50 ML PIGGYBACK IV (13:23)
[2021-05-13] MEDS: clonazePAM 1 MG TABLET PO (21:13)
[2021-05-13] MEDS: HYDROmorphone HCl 0.5 MG/0.5 ML SYRINGE 0.25 MG IVPUSH (23:04)
[2021-05-14 00:05] VITALS: RESP 18
[2021-05-14] MEDS: 0.9 % Sodium Chloride Flush 3 ML SYRINGE IVFLUSH ×2 (00:41→07:11)
[2021-05-14] MEDS: HYDROmorphone HCl 0.5 MG/0.5 ML SYRINGE 0.25 MG IVPUSH (03:06)
[2021-05-14 04:00] VITALS: BP 104/63; PULSE 74; RESP 16; TEMP 36.5; O2SAT 99
[2021-05-14] MEDS: ondansetron HCL 4 MG/2 ML VIAL IVPUSH (04:27)
[2021-05-14 06:52] LABS: MANUAL DIFF FLAG NO
[2021-05-14 06:59] LABS: Basophils Percent Auto 0.1 % (0-2); Eosinophils Percent Auto 0.1 % (0-4); Hematocrit 31.1 % (37.0-47.0); Imm Gran Abs Auto 0.07 X10*3/uL (0.00-0.03); Imm Gran Pct Auto 0.5 % (0.0-0.4); Lymphocytes Absolute Auto 1.9 X10*3/uL (1.2-4.9); Mean Corpuscular HGB Conc 32.2 g/dl (31.0-35.0); Mean Corpuscular Hemoglobin 28.4 pg (27.0-33.0); Mean Corpuscular Volume 88.4 fL (80.0-98.0); Mean Platelet Volume 11.7 fL (9.4-12.3); Monocytes Absolute Auto 0.8 X10*3/uL (0.1-1.2); Neutrophils Absolute Auto 10.9 x10*3/uL (2.0-8.3); Neutrophils Percent Auto 79.3 % (45-73); Platelet Count 209 X10*3/uL (160-400); Red Blood Count 3.52 X10*6/uL (4.20-5.50); Red Cell Distribution Width 13.8 % (11.0-16.0); White Blood Count 13.8 X10*3/uL (4.8-10.8)
[2021-05-14] MEDS: Famotidine/PF 20 MG/2 ML VIAL IVPUSH (07:10)
[2021-05-14] MEDS: buPROPion HCl XL 300 MG TAB.ER.24H PO (07:10)
[2021-05-14 07:19] LABS: Anion Gap 9 (12-20); Blood Urea Nitrogen 9 mg/dL (9-16); Carbon Dioxide 27 mmol/L (22-29); Chloride 106 mmol/L (96-108); Creatinine Clr Calc Pharmacy 135.5; Estimated Glomerular Filt Rate > 60; Glucose Random 95 mg/dL (60-115); Potassium 3.8 mmol/L (3.3-5.1); Sodium 138 mmol/L (135-145)
[2021-05-14 07:20] VITALS: BP 100/56; PULSE 52; RESP 18; TEMP 36.5; O2SAT 100
--- NOTE | 2021-05-14 09:48 | MHC.CM.PN ---
EMR REVIEWED, PT S/P LAP SLEEVE GASTRECTOMY, CM MET W/PT AND S.O. WHO WAS AT BEDSIDE, PT REPORTS SHE LIVES W/S.O., IS INDEPENDENT W/ALL CARE, PT DENIES USE OF DME AND HAS NO HOME SERVICES, PT VERIFIES PCP [facility] PADRON VACCINE X2, PT HAS COMPLETED A HCP AND NAMED HER S.O. DOREEN LANDIN [phone] HER [facility] AND HAS CHOSEN NO ALTERNATE AT THIS TIME. PT WILL D/C W/CARIDAD DRAIN AND HAS HAD SUFFICIENT TRAINING FROM RN. D/C PLAN: HOME TODAY W/OUTPT FOLLOW-UP IN SURGEONS OFFICE, S.O. FOR TRANSPORT.
--- NOTE | 2021-05-14 12:27 | HO.POSTANES ---
Post Anesthesia Evaluation Post Anesthesia Evaluation Vital Signs: Vital Signs Temp Pulse Resp BP Pulse Ox 05/14/21 07:20 97.7 F 52 18 100/56 L 100 05/14/21 04:00 97.7 F 74 16 104/63 99 Anesthesia: General Endotracheal-GETA Mental Status: Awake Pain Control: Satisfactory Nausea/Vomiting: None Hydration: Adequate Anesthesia-Related Issues: No Anes. Related Issues
== END 2021-05-14 09:16 | disposition home or self-care (01) | DRG 403 ==
LOC: HO.SSSA 06:14 → HO.S3 11:16
PROVIDERS: Nurse Practitioner; Physician Assistant; Admitting Provider Surgery; PCP Internal Medicine; Visit Provider Surgery
PROC: 0DB64Z3 Excision of Stomach, Percutaneous Endoscopic Approach, Vertical (ICD-10-PCS; CPT 43845; principal; 2021-05-13 07:30)
DX: E66.01 Morbid (severe) obesity due to excess calories (principal); K44.0 Diaphragmatic hernia with obstruction, without gangrene; F32.A Depression, unspecified; L73.2 Hidradenitis suppurativa; K66.0 Peritoneal adhesions (postprocedural) (postinfection); Z68.41 Body mass index [BMI] 40.0-44.9, adult; Z20.822 Contact with and (suspected) exposure to COVID-19; Z79.899 Other long term (current) drug therapy
CPT/HCPCS: 36415; 80048; 80053; 80061; 81025; 83036; 83525; 84443; 85014; 85018; 85025; 85610; 85730; 86140; 86850; 86900; 86901; 87635; 88307; 88342; 99024; A4649; J0131; J0690; J1100; J1170; J2250; J2370; J2405; J2550; J2765; J3010

== ENCOUNTER → 2021-05-18 07:53 | Outpatient (BNVA) | payer MEDICAID, SELFPAY | PROVIDERS: PCP Internal Medicine; Referring Provider Internal Medicine; Visit Provider Surgery | DX: E66.01 Morbid (severe) obesity due to excess calories (principal); Z68.41 Body mass index [BMI] 40.0-44.9, adult | CPT/HCPCS: 99212 ==

== ENCOUNTER → 2021-06-19 08:22 | Outpatient (BNVA) | payer MEDICAID, SELFPAY | PROVIDERS: PCP Internal Medicine; Visit Provider Surgery | DX: E66.9 Obesity, unspecified (principal); Z68.38 Body mass index [BMI] 38.0-38.9, adult | CPT/HCPCS: 99212 ==

== ENCOUNTER → 2021-07-16 08:10 | Outpatient (BNVA) | payer MEDICAID, SELFPAY | PROVIDERS: PCP Internal Medicine; Visit Provider Dietitian, Registered | DX: Z48.815 Encounter for surgical aftercare following surgery on the digestive system (principal); Z98.84 Bariatric surgery status | CPT/HCPCS: 97803 ==

== ENCOUNTER → 2021-07-21 08:11 | Outpatient (BNVA) | payer MEDICAID, SELFPAY | PROVIDERS: PCP Internal Medicine; Referring Provider Surgery; Visit Provider Dietitian, Registered | DX: Z13.89 Encounter for screening for other disorder (principal) ==

== ENCOUNTER 2021-09-22 11:17 | Outpatient (REF) | payer MEDICAID, SELFPAY ==
[2021-09-22 13:40] LABS: MANUAL DIFF FLAG NO
[2021-09-22 13:46] LABS: Basophils Absolute Auto 0.1 X10*3/uL (0.0-0.2); Basophils Percent Auto 0.6 % (0-2); Eosinophils Absolute Auto 0.2 X10*3/uL (0.0-0.4); Eosinophils Percent Auto 2.5 % (0-4); Hematocrit 41.3 % (37.0-47.0); Hemoglobin 13.4 g/dl (12.0-16.0); Imm Gran Abs Auto 0.04 X10*3/uL (0.00-0.03); Imm Gran Pct Auto 0.4 % (0.0-0.4); Lymphocytes Absolute Auto 2.2 X10*3/uL (1.2-4.9); Lymphocytes Percent Auto 23.3 % (20-40); Mean Corpuscular HGB Conc 32.4 g/dl (31.0-35.0); Mean Corpuscular Hemoglobin 29.6 pg (27.0-33.0); Mean Corpuscular Volume 91.4 fL (80.0-98.0); Mean Platelet Volume 11.3 fL (9.4-12.3); Monocytes Absolute Auto 0.4 X10*3/uL (0.1-1.2); Monocytes Percent Auto 4.5 % (2-11); Neutrophils Absolute Auto 6.5 x10*3/uL (2.0-8.3); Neutrophils Percent Auto 68.7 % (45-73); Platelet Count 269 X10*3/uL (160-400); Red Blood Count 4.52 X10*6/uL (4.20-5.50); Red Cell Distribution Width 15.2 % (11.0-16.0); White Blood Count 9.5 X10*3/uL (4.8-10.8)
[2021-09-22 14:05] LABS: Alanine Aminotransferase 29 U/L (0-31); Albumin Level 4.2 g/dL (3.5-5.0); Alkaline Phosphatase 86 U/L (39-117); Anion Gap 13 (12-20); Aspartate Amino Transferase 27 U/L (5-31); Bilirubin Direct < 0.2 mg/dL (0.0-0.5); Bilirubin Total 0.2 mg/dL (0.0-1.0); Blood Urea Nitrogen 22 mg/dL (9-16); Calcium 9.6 mg/dL (8.4-10.2); Carbon Dioxide 26 mmol/L (22-29); Chloride 103 mmol/L (96-108); Estimated Glomerular Filt Rate > 60; Glucose Random 113 mg/dL (60-115); Potassium 4.8 mmol/L (3.3-5.1); Sodium 137 mmol/L (135-145); Total Protein 7.3 g/dL (6.5-8.0)
[2021-09-26 00:02] LABS: TS Negative Control Passed; TS Panel A 0; TS Panel B 0; TS Positive Control Passed; TSpotTB Negative (Negative)
== END 2021-09-22 11:18 | disposition home or self-care (01) ==
LOC: HO.HMGCLDS 11:17
PROVIDERS: Visit Provider Physician Assistant Medical
DX: L73.2 Hidradenitis suppurativa (principal); Z79.899 Other long term (current) drug therapy
CPT/HCPCS: 36415; 80048; 80076; 85025; 86481

== ENCOUNTER 2022-06-03 18:04 | Outpatient (REF) | payer MEDICAID, SELFPAY ==
--- NOTE | ~2022-06-03 | MR_ITS ---
EXAMINATION: MR LUMBAR SPINE WITHOUT CONTRAST CLINICAL INFORMATION: Lower back pain with left-sided sciatica. COMPARISON: Plain films of the lumbar spine 07/16/2017. TECHNIQUE: MRI of the lumbar spine was obtained using routine sequences without contrast. FINDINGS: VERTEBRAL BODIES AND PARASPINAL STRUCTURES: There is a mild grade 1 anterolisthesis of L4 on L5. There are retrolistheses of L1 on L2 and L3 on L4. There is multilevel narrowing of intervertebral disc height throughout the spine, sparing L5-S1. This is most severe at L1-L2 and L4-L5. Vertebral body heights are maintained, and no fractures are demonstrated. There are degenerative endplate contour changes with mild edematous signal at L3-L4. There is a Schmorl's node in superior endplate of L2 with mild edematous signal. Vertebral body heights are maintained and no fractures are demonstrated. Overall, marrow signal is homogenous. The visualized retroperitoneal structures are unremarkable. There is an incompletely visualized right ovarian cyst measuring up to 5.1 cm. CONUS MEDULLARIS AND CAUDA EQUINA: Normal, terminating at the level of T12-L1. The lower thoracic spinal cord appears normal. The cauda equina nerve roots and filum terminale appear normal. SPINAL LEVELS: T12-L1: The facet joints appear normal bilaterally. Disc contour is normal. There is no central stenosis or foraminal narrowing. L1-L2: There is mild bilateral facet arthropathy with ligamenta flava hypertrophy and small facet joint effusions. There is a shallow posterior disc protrusion without significant mass effect on the thecal sac extending into the inferior neural foramina without definite exiting nerve root impingement. There is no central stenosis. L2-L3: There is mild bilateral facet arthropathy. There is a small right foraminal disc protrusion with an annular fissure and there may be impingement on the exiting right L2 nerve root. The left neural foramen is patent, and there is no central stenosis. L3-L4: There is moderate bilateral facet arthropathy with ligamenta flava hypertrophy and facet joint effusions. There is a broad-based posterior disc protrusion which is focally more prominent in the midline with some distortion of the ventral thecal sac and there is narrowing of the subarticular recess on the left. There is mild central stenosis. There are bilateral foraminal disc protrusions extending far laterally, more prominent on the left and there is impingement on the exiting and extraforaminal L3 nerve roots, more severely on the left. L4-L5: There is severe bilateral facet arthropathy with ligamenta flava hypertrophy and facet joint effusions. There may be a small synovial cyst developing anteromedially off the left facet joint and there is some distortion of the dorsal thecal sac laterally on the left. There is unroofing of the disc as a result of the anterolisthesis. There are bilateral foraminal disc protrusions without definite exiting nerve root impingement. There is mild narrowing of the bilateral subarticular recesses, but there is no significant central stenosis. L5-S1: There is markedly severe right and severe left facet arthropathy. There is a shallow posterior disc protrusion without mass effect on the thecal sac and there is no central stenosis. There is no foraminal nerve root impingement MR/MR lumbar spine wo con IMPRESSION: 1. There is a grade 1 anterolisthesis of L4 on L5 secondary to facet arthropathy. There may be a small synovial cyst developing anteromedially on the left. There are bilateral foraminal disc protrusions without definite exiting nerve root impingement. There is no significant central stenosis. 2. At L3-L4 there is moderate facet arthropathy. There is a broad-based posterior disc protrusion extending far laterally with impingement on the exiting and extraforaminal L3 nerve roots, more severely on the left. There is mild central stenosis. 3. At L2-L3 there is a small right foraminal disc protrusion with an annular fissure and there may be impingement on the exiting right L2 nerve root. There is no central stenosis. 4. At L5-S1 there is markedly severe right and severe left facet arthropathy. There is no central stenosis or foraminal nerve root impingement. 5. There is a right sided ovarian cyst measuring up to 5.1 cm. Recommend prompt follow-up pelvic ultrasound.
== END 2022-06-03 18:05 | disposition home or self-care (01) ==
LOC: HO.MRI 18:04
PROVIDERS: PCP Internal Medicine; Visit Provider Internal Medicine
DX: M54.42 Lumbago with sciatica, left side (principal)
CPT/HCPCS: 72148

== ENCOUNTER 2022-06-21 14:47 | Outpatient (REF) | payer MEDICAID, SELFPAY ==
--- NOTE | ~2022-06-21 | XR_ITS ---
EXAMINATION: XR shoulder LT min 2V, XR shoulder RT min 2V CLINICAL INFORMATION: Reason for Exam pain COMPARISON: None TECHNIQUE: 4 views of the bilateral shoulders XR/XR shoulder LT min 2V FINDINGS/IMPRESSION: * Punctate calcifications adjacent to the right humeral head may reflect intra-articular loose bodies versus early hydroxyapatite deposition disease. * Left shoulder joint is unremarkable.
--- NOTE | ~2022-06-21 | XR_ITS ---
EXAMINATION: XR shoulder LT min 2V, XR shoulder RT min 2V CLINICAL INFORMATION: Reason for Exam pain COMPARISON: None TECHNIQUE: 4 views of the bilateral shoulders XR/XR shoulder RT min 2V FINDINGS/IMPRESSION: * Punctate calcifications adjacent to the right humeral head may reflect intra-articular loose bodies versus early hydroxyapatite deposition disease. * Left shoulder joint is unremarkable.
== END 2022-06-21 14:48 | disposition home or self-care (01) ==
LOC: HO.XRAY 14:47
PROVIDERS: Absent Provider Internal Medicine; PCP Internal Medicine; Visit Provider Internal Medicine
DX: M25.511 Pain in right shoulder (principal); M25.512 Pain in left shoulder
CPT/HCPCS: 73030

== ENCOUNTER 2022-07-07 11:50 | Outpatient (REF) | payer MEDICAID, SELFPAY ==
--- NOTE | ~2022-07-07 | XR_ITS ---
EXAMINATION: Lumbar spine, right shoulder, bilateral foot. CLINICAL INDICATION: Fell in shower with pain. COMPARISON: Right shoulder 06/21/2022 TECHNIQUE: lumbar spine 4 views. Right shoulder 4 views. 3 views each foot. FINDINGS: Lumbar spine: There is normal lumbar lordosis. There is mild dextroscoliosis lumbar spine. No visible acute fracture, dislocation or subluxation seen. No bony erosive changes. SI joints are symmetrical and normal. There is mild loss of L4-L5 disc height. There is minimal ventral spondylosis seen throughout the lumbar spine. Rest of the disc heights, vertebral heights and alignment is normal. No aggressive lytic or sclerotic process seen. Right shoulder: The glenohumeral joint and AC joint space is maintained normal. There is mild superior distal clavicular spurring at the AC joint. No loose bodies or bony erosive changes seen. The soft tissues are normal. Left foot: There is no visible acute fracture, dislocation or subluxation seen. There is an accessory bone at the proximal end of fifth metatarsal. The ankle mortise and subtalar joints are normal. This is associated with this mild soft tissue swelling. There is no abnormal joint effusion. The soft tissues are normal. Right foot: No acute fracture or dislocation seen. A small accessory bone in the proximal end of fifth metatarsal with mild soft tissue swelling. The ankle mortise and subtalar joints are normal. XR/XR foot RT min 3V IMPRESSION: Mild degenerative changes right lateral clavicle. No acute fracture or dislocation seen right shoulder. Mild degenerative changes L4-L5 disc level without any visible acute fracture or dislocation. There is minimal ventral spondylosis throughout lumbar spine. Bilateral axillary ossicles at the proximal end of fifth metatarsal with mild soft tissue swelling likely cause of pain as there is an arrow pointing to the area of pain. No acute fracture or dislocation in either foot.
== END 2022-07-07 11:51 | disposition home or self-care (01) ==
LOC: HO.XRAY 11:50
PROVIDERS: PCP Internal Medicine; Visit Provider Internal Medicine
DX: M79.672 Pain in left foot (principal); M79.671 Pain in right foot
CPT/HCPCS: 73630

== ENCOUNTER 2022-07-08 11:19 | Outpatient (REF) | payer MEDICAID, SELFPAY ==
[2022-07-08 11:39] LABS: MANUAL DIFF FLAG NO
[2022-07-08 12:10] LABS: Basophils Absolute Auto 0.1 X10*3/uL (0.0-0.2); Basophils Percent Auto 0.6 % (0-2); Eosinophils Absolute Auto 0.1 X10*3/uL (0.0-0.4); Eosinophils Percent Auto 0.8 % (0-4); Hematocrit 42.3 % (37.0-47.0); Hemoglobin 14.3 g/dl (12.0-16.0); Imm Gran Abs Auto 0.04 X10*3/uL (0.00-0.03); Imm Gran Pct Auto 0.4 % (0.0-0.4); Lymphocytes Absolute Auto 2.3 X10*3/uL (1.2-4.9); Lymphocytes Percent Auto 24.9 % (20-40); Mean Corpuscular HGB Conc 33.8 g/dl (31.0-35.0); Mean Corpuscular Hemoglobin 31.6 pg (27.0-33.0); Mean Corpuscular Volume 93.6 fL (80.0-98.0); Monocytes Absolute Auto 0.5 X10*3/uL (0.1-1.2); Monocytes Percent Auto 5.5 % (2-11); Neutrophils Absolute Auto 6.3 x10*3/uL (2.0-8.3); Neutrophils Percent Auto 67.8 % (45-73); Platelet Count 260 X10*3/uL (160-400); Red Blood Count 4.52 X10*6/uL (4.20-5.50); Red Cell Distribution Width 12.4 % (11.0-16.0); White Blood Count 9.3 X10*3/uL (4.8-10.8)
[2022-07-08 12:24] LABS: Partial Thromboplastin Time 30.5 SEC (26.0-36.4); Prothrombin Time 11.8 SEC (10.0-13.1)
[2022-07-08 12:48] LABS: Erythrocyte Sedimentation Rate 6 MM/HR (0-20)
[2022-07-15 12:12] LABS: Anti Nuclear Antibody Pattern Nuclear, Homogeneous; Anti Nuclear Antibody Screen POSITIVE (NEGATIVE)
== END 2022-07-08 11:20 | disposition home or self-care (01) ==
LOC: HO.LAB 11:19
PROVIDERS: PCP Internal Medicine; Visit Provider Internal Medicine
DX: Z01.84 Encounter for antibody response examination (principal); G89.29 Other chronic pain; M54.42 Lumbago with sciatica, left side
CPT/HCPCS: 36415; 85025; 85610; 85652; 85730; 86038; 86039

== ENCOUNTER 2022-07-12 07:40 | Emergency (ER) | payer MEDICAID, SELFPAY ==
--- NOTE | ~2022-07-12 | XR_ITS ---
EXAMINATION: Lumbar spine, right shoulder, bilateral foot. CLINICAL INDICATION: Fell in shower with pain. COMPARISON: Right shoulder 06/21/2022 TECHNIQUE: lumbar spine 4 views. Right shoulder 4 views. 3 views each foot. FINDINGS: Lumbar spine: There is normal lumbar lordosis. There is mild dextroscoliosis lumbar spine. No visible acute fracture, dislocation or subluxation seen. No bony erosive changes. SI joints are symmetrical and normal. There is mild loss of L4-L5 disc height. There is minimal ventral spondylosis seen throughout the lumbar spine. Rest of the disc heights, vertebral heights and alignment is normal. No aggressive lytic or sclerotic process seen. Right shoulder: The glenohumeral joint and AC joint space is maintained normal. There is mild superior distal clavicular spurring at the AC joint. No loose bodies or bony erosive changes seen. The soft tissues are normal. Left foot: There is no visible acute fracture, dislocation or subluxation seen. There is an accessory bone at the proximal end of fifth metatarsal. The ankle mortise and subtalar joints are normal. This is associated with this mild soft tissue swelling. There is no abnormal joint effusion. The soft tissues are normal. Right foot: No acute fracture or dislocation seen. A small accessory bone in the proximal end of fifth metatarsal with mild soft tissue swelling. The ankle mortise and subtalar joints are normal. XR/XR lumbar spine 2-3V IMPRESSION: Mild degenerative changes right lateral clavicle. No acute fracture or dislocation seen right shoulder. Mild degenerative changes L4-L5 disc level without any visible acute fracture or dislocation. There is minimal ventral spondylosis throughout lumbar spine. Bilateral axillary ossicles at the proximal end of fifth metatarsal with mild soft tissue swelling likely cause of pain as there is an arrow pointing to the area of pain. No acute fracture or dislocation in either foot.
--- NOTE | ~2022-07-12 | XR_ITS ---
EXAMINATION: Lumbar spine, right shoulder, bilateral foot. CLINICAL INDICATION: Fell in shower with pain. COMPARISON: Right shoulder 06/21/2022 TECHNIQUE: lumbar spine 4 views. Right shoulder 4 views. 3 views each foot. FINDINGS: Lumbar spine: There is normal lumbar lordosis. There is mild dextroscoliosis lumbar spine. No visible acute fracture, dislocation or subluxation seen. No bony erosive changes. SI joints are symmetrical and normal. There is mild loss of L4-L5 disc height. There is minimal ventral spondylosis seen throughout the lumbar spine. Rest of the disc heights, vertebral heights and alignment is normal. No aggressive lytic or sclerotic process seen. Right shoulder: The glenohumeral joint and AC joint space is maintained normal. There is mild superior distal clavicular spurring at the AC joint. No loose bodies or bony erosive changes seen. The soft tissues are normal. Left foot: There is no visible acute fracture, dislocation or subluxation seen. There is an accessory bone at the proximal end of fifth metatarsal. The ankle mortise and subtalar joints are normal. This is associated with this mild soft tissue swelling. There is no abnormal joint effusion. The soft tissues are normal. Right foot: No acute fracture or dislocation seen. A small accessory bone in the proximal end of fifth metatarsal with mild soft tissue swelling. The ankle mortise and subtalar joints are normal. XR/XR shoulder RT min 2V IMPRESSION: Mild degenerative changes right lateral clavicle. No acute fracture or dislocation seen right shoulder. Mild degenerative changes L4-L5 disc level without any visible acute fracture or dislocation. There is minimal ventral spondylosis throughout lumbar spine. Bilateral axillary ossicles at the proximal end of fifth metatarsal with mild soft tissue swelling likely cause of pain as there is an arrow pointing to the area of pain. No acute fracture or dislocation in either foot.
[2022-07-12 07:55] VITALS: BP 142/82; PULSE 94; RESP 16; TEMP 36.6; O2SAT 100; BMI 38.0
--- NOTE | 2022-07-12 08:00 | ED_ITS ---
HPI - Extremity Problem General Chief complaint: Extremity Injury, Upper Stated complaint: Fall T-1/R shoulder pain/Back pain Time Seen by Provider: 07/12/22 07:58 Source: patient Mode of arrival: ambulatory History of Present Illness HPI Narrative: 41-year-old female with past medical history of ADHD, bipolar, PTSD, depression, hidradenitis, s/p gastric sleeve '22, presenting to the ED complaining of right shoulder and low back pain s/p mechanical fall in shower around 22:00 last night. Reports slipped and fell falling onto right side, catching self, denies head trauma or LOC. Denies direct injury to back. Denies incontinence/re tention, numbness, tingling, weakness, hematuria, abdominal pain, headache MD Complaint: extremity pain Related Data Home Medications Medication Instructions Recorded Confirmed bupropion HCl 300 mg 24 hr tablet, 300 mg PO QAM 01/28/21 05/18/21 extended release (Wellbutrin XL) clonazepam 1 mg tablet (Klonopin) 1 mg PO DAILY PRN Anxiety 01/28/21 05/18/21 minocycline 100 mg capsule 100 mg PO BID 01/28/21 05/08/21 spironolactone 100 mg tablet 100 mg PO BID 01/28/21 05/08/21 valacyclovir 500 mg tablet 1 tab PO DAILY 05/08/21 05/08/21 ziprasidone HCl 80 mg capsule 2 cap PO BEDTIME 05/08/21 05/18/21 Previous Rx's Medication Instructions Recorded ondansetron HCl 4 mg tablet 4 mg PO Q12H nausea and vomiting 05/06/21 #20 tabs pantoprazole 40 mg tablet,delayed 40 mg PO DAILY #30 tabs 05/06/21 release sucralfate 100 mg/mL oral 10 ml PO BID #400 mL 05/06/21 suspension Allergies Allergy/AdvReac Type Severity Reaction Status Date / Time No Known Allergies Allergy Verified 07/12/22 07:58 Review of Systems Review of Systems: Constitutional: No Fever, No Chills ENT/Mouth: No Ear Pain, No Nasal Congestion, No sore throat, No Rhinorrhea, No Swallowing Difficulty Cardiovascular: No Chest Pain, No SOB Respiratory: No Cough, No Sputum Gastrointestinal: No Nausea, No Vomiting, No Diarrhea, No Constipation, No Abdominal pain Genitourinary: No Dysuria, No Urinary Frequency, No Hematuria, No Urinary Incontinence/retention, No Flank Pain Musculoskeletal: + joint pain, No Myalgias, No Joint Swelling Skin: No Skin Lesions, No rash Neuro: No Weakness, No Numbness, No Paresthesias Yes all other systems are reviewed and are negative Constitutional: Constitutional: Reports as per [facility] Past Medical History Attestation statement: The following information was validated with the patient. Medical History Abnormal EKG ADHD Bipolar 1 disorder Chronic post-traumatic stress disorder (PTSD) Depression Hidradenitis Hx of borderline personality disorder Intra-abdominal adhesions Pre-op evaluation Surgical History Gastric bypass status for obesity Hx of esophagogastroduodenoscopy S/P laparoscopic sleeve gastrectomy Family History Family History Mother Obesity Diabetes mellitus Sister No problems noted. Son Leukemia Obesity Social History Social History Are you a primary health care facilities inspector to a significant other at home: No Do you presently have visiting nurse or other home services: No Alcohol intake: never Patient Tobacco Use Status: Never used Tobacco Advance Directives: Yes Advance Directives on File: Yes Advance Directives Date on File: 05/15/21 service: No Current occupational status: unemployed Physical Exam Vital Signs: Vital Signs: Last Vital Signs Temp 97.8 F 07/12/22 07:55 Pulse 94 07/12/22 07:55 Resp 16 07/12/22 07:55 BP 142/82 H 07/12/22 07:55 Pulse Ox 100 07/12/22 07:55 O2 Del Method Room Air 07/12/22 07:55 BMI result Body Mass Index 38.0 Const: General: cooperative, healthy appearing and no acute distress Orientation/consciousness: patient oriented x3 Limitations: no limitations HEENT: Head: Yes normal to inspection and Yes atraumatic Ears: hearing grossly normal bilaterally General nose exam: Normal external nose present Face and sinus: Yes normal facial exam Eyes: General: appearance normal, both eyes and all related structures EOM: EOMs intact bilaterally Neck: Neck: Yes normal visual inspection and Yes no meningeal signs Resp: Effort & Inspection: normal respiratory effort and no respiratory distress Auscultation: clear to auscultation bilaterally Cardio: Rate: regular rate Heart sounds: S1 normal heart sound present and S2 normal heart sound present Peripheral pulses: Peripheral pulses 2+ throughout GI: Inspection: Yes normal to inspection Palpation (GI): Soft to palpation, nontender, no guarding and not rigid : General: Yes no CVA tenderness Back/Spine/Pelvis: Other: No midline cervical/thoracic/lumbar spinous tenderness/step-off or deformity. + right-sided trapezius muscle/cervical paraspinal tenderness to palpation. + bilateral lumbar paraspinal/MSK tenderness to palpation reproducing subjective complaints Back: no CVA tenderness Skin: Rashes: no rashes Wounds: no wounds Neuro: Other: Strength intact throughout. No saddle anesthesia. Sensation intact to light touch. Neurovascular intact distally General: patient oriented x3, tone normal, moves all extremities, no meningeal signs, no focal motor deficits and CN's II-XI intact bilaterally Gait exam (Neuro): Normal gait present Motor exam (neuro): 5/5 motor strength present throughout Extrem: General: Yes normal to inspection Course Course Course Narrative: XR lumbar spine 2-3V/XR shoulder RT min 2V IMPRESSION: Mild degenerative changes right lateral clavicle. No acute fracture or dislocation seen right shoulder. ? Mild degenerative changes L4-L5 disc level without any visible acute fracture or dislocation. There is minimal ventral spondylosis throughout lumbar spine. ? Bilateral axillary ossicles at the proximal end of fifth metatarsal with mild soft tissue swelling likely cause of pain as there is an arrow pointing to the area of pain. ? No acute fracture or dislocation in either foot. >> patient outpatient foot x-rays on 07/07 which were read at the same time as ED images today. Results discussed with patient including worrisome signs and symptoms and strict return precautions, and when to return to the emergency department. They verbalized understanding and feel safe for discharge at this time. Medications Administered Discontinued Medications Generic Name Dose Route Start Last Admin Trade Name Fremaggy PRN Reason Stop Dose Admin Lidocaine 1 patch 07/12/22 08:14 07/12/22 09:01 Lidocaine 4 % Patch Adh..Patch TRANSDERMA 07/12/22 08:15 1 patch ONCE ONE Administration Protocol Medical Decision Making Medical Decision Making MDM Narrative: 41-year-old female with past medical history of ADHD, bipolar, PTSD, depression, hidradenitis, s/p gastric sleeve '22, presenting to the ED complaining of right shoulder and low back pain s/p mechanical fall in shower around 22:00 last night. On exam vital signs stable, NAD, nontoxic appearing, no midline spinous tenderness or red flag symptoms. PE as above. Concern for strain vs MSK pain/spasming. Low suspicion for fracture, cauda equina, cord compression, or epidural abscess. Low suspicion for pyelo/UTI were cervical dissection plan: X-ray, pain control, re-evaluate Please refer to course for remaining clinical decision making, interpretation of labs/imaging results, and discussions with consultants and/or family members. Differential Diagnosis Differential Diagnoses: The differential diagnosis associated with the presentation includes As above Admission/Observation Consideration of admission/observation: Escalation of care including admission/observation considered Lab Data MDM Lab Attestation statement: I reviewed the patient's lab results. Radiology Impression Discussion of test interpretation with radiology: I have reviewed the radiologist's reading. External Record Review External record reviewed: Inpatient record, Office record, Outpatient record, Prior outpatient labs, Prior outpatient radiology, Primary care record and Outside ED record Discharge Plan Discharge Patient Disposition: Home, Self-Care Prescriptions: No Action ziprasidone HCl 80 mg capsule 2 cap PO BEDTIME valacyclovir 500 mg tablet 1 tab PO DAILY pantoprazole 40 mg tablet,delayed release (DR/EC) 40 mg PO DAILY Qty: 30 2RF sucralfate 100 mg/mL suspension 10 ml PO BID Qty: 400 2RF ondansetron HCl 4 mg tablet 4 mg PO Q12H Qty: 20 0RF minocycline 100 mg capsule 100 mg PO BID spironolactone 100 mg tablet 100 mg PO BID Hold Instructions: Discuss restart with Dr Faulkner bupropion HCl [Wellbutrin XL] 300 mg tablet extended release 24 hr 300 mg PO QAM clonazepam [Klonopin] 1 mg tablet 1 mg PO DAILY PRN (Reason: Anxiety) Referrals: Carlo Santana MD [Primary Care Provider] - 5 days
[2022-07-12] MEDS: Lidocaine 4 % Patch ADH..PATCH 1 PATCH TRANSDERMA (09:01)
== END 2022-07-12 11:13 | disposition home or self-care (01) ==
PROVIDERS: Emergency Provider Emergency Medicine; PCP Internal Medicine
DX: M25.511 Pain in right shoulder (principal); M54.50 Low back pain, unspecified; Z79.899 Other long term (current) drug therapy
CPT/HCPCS: 72100; 73030; 99282; 99283

== ENCOUNTER 2022-07-16 12:55 | Outpatient (REF) | payer MEDICAID, SELFPAY ==
--- NOTE | ~2022-07-16 | US_ITS ---
EXAMINATION: US PELVIS CLINICAL INFORMATION: Ovarian cyst on MRI. 41-year-old, LMP 06/28/2022 COMPARISON: Lumbar spine MRI dated 06/03/2022 TECHNIQUE: Ultrasound of the pelvis is performed using both transabdominal and transvaginal transducers along with Doppler. Transvaginal imaging is performed due to inadequate visualization transabdominally. FINDINGS: Uterus: The uterus is anteverted and measures 9.0 x 3.6 x 5.1 cm. The double wall endometrial thickness is 0.6 mm. The uterus is smooth in contour and has normal myometrial echogenicity. No visible fibroid. Adnexa: Both ovaries are visualized. There is normal color flow to the adnexa. There is no ovarian torsion. There is no pelvic ascites or fluid collection. Right ovary measures 6.9 x 4.6 x 5.4 cm. Unilocular anechoic avascular cyst measures 5.2 x 3.8 x 4.8 cm. Left ovary measures 4.4 x 2.1 x 1.9 cm. US/US pelvic and transvaginal IMPRESSION: Right ovarian unilocular anechoic avascular cyst measures 5.2 cm. Findings likely represent a probable benign cyst. Recommend followup ultrasonography in 3-6 months.
== END 2022-07-16 12:56 | disposition home or self-care (01) ==
LOC: HO.HMGCX 12:55
PROVIDERS: PCP Internal Medicine; Visit Provider Internal Medicine
DX: N83.201 Unspecified ovarian cyst, right side (principal)
CPT/HCPCS: 76830; 76856

== ENCOUNTER → 2022-07-23 13:13 | Outpatient (BNVA) | payer MEDICAID, SELFPAY | PROVIDERS: PCP Internal Medicine; Visit Provider Nurse Practitioner Family | DX: M54.16 Radiculopathy, lumbar region (principal); M62.838 Other muscle spasm; M47.816 Spondylosis without myelopathy or radiculopathy, lumbar region; M53.3 Sacrococcygeal disorders, not elsewhere classified | CPT/HCPCS: 99202 ==

== ENCOUNTER → 2022-07-29 10:51 | Outpatient (BNVA) | payer MEDICAID, SELFPAY | PROVIDERS: PCP Internal Medicine; Referring Provider Internal Medicine; Visit Provider Physician Assistant Surgical | DX: E66.9 Obesity, unspecified (principal); Z68.37 Body mass index [BMI] 37.0-37.9, adult; Z98.84 Bariatric surgery status | CPT/HCPCS: 99212 ==

== ENCOUNTER 2022-08-17 05:48 | Outpatient (REF) | payer MEDICAID, SELFPAY ==
--- NOTE | ~2022-08-17 | FL_ITS ---
EXAMINATION: XR FLUOROSCOPY WITH IMAGES CLINICAL INFORMATION: Spondylosis without myelopathy or radiculopathy, lumbar region. COMPARISON: None available. TECHNIQUE: Fluoroscopy Supervised By: Dr. Badillo. Fluoroscopy Time: 0.6 min. Cumulative Dose: 8.56 mGy. DAP: 0.148 Gycm2. Images: 6. FINDINGS: Images demonstrate needle placement and contrast injection adjacent to the bilateral lateral L3, L4 and L5 vertebral bodies FL/FL guidance in treatment room IMPRESSION: Fluoroscopy guidance for pain management procedure.
== END 2022-08-17 05:49 | disposition home or self-care (01) ==
LOC: CF 05:48
PROVIDERS: Visit Provider Anesthesiology
DX: M47.816 Spondylosis without myelopathy or radiculopathy, lumbar region (principal); M54.16 Radiculopathy, lumbar region; M62.838 Other muscle spasm; M53.3 Sacrococcygeal disorders, not elsewhere classified
CPT/HCPCS: 64493; 64494

== ENCOUNTER → 2022-08-19 10:38 | Outpatient (BNVA) | payer MEDICAID, SELFPAY | PROVIDERS: PCP Internal Medicine; Visit Provider Nurse Practitioner Family | DX: M53.3 Sacrococcygeal disorders, not elsewhere classified (principal); M47.816 Spondylosis without myelopathy or radiculopathy, lumbar region; M25.50 Pain in unspecified joint | CPT/HCPCS: 99212 ==

== ENCOUNTER 2022-08-23 07:52 | Outpatient (REF) | payer MEDICAID, SELFPAY ==
[2022-08-23 09:07] LABS: Alanine Aminotransferase 25 U/L (0-31); Albumin Level 4.2 g/dL (3.5-5.0); Alkaline Phosphatase 52 U/L (39-117); Anion Gap 11 (12-20); Aspartate Amino Transferase 24 U/L (5-31); Bilirubin Total 0.4 mg/dL (0.0-1.0); Blood Urea Nitrogen 10 mg/dL (9-16); C Reactive Protein < 0.10 mg/dL (< or = 0.50); Calcium 9.5 mg/dL (8.4-10.2); Carbon Dioxide 25 mmol/L (22-29); Chloride 109 mmol/L (96-108); Cholesterol 159 mg/dL; Estimated Glomerular Filt Rate > 60; Glucose Random 91 mg/dL (60-115); HDL Cholesterol 40 mg/dL; LDL Cholesterol Calculated 99 mg/dl; Potassium 4.3 mmol/L (3.3-5.1); Sodium 141 mmol/L (135-145); Total Protein 6.7 g/dL (6.5-8.0); Triglycerides 104 mg/dL
[2022-08-23 09:08] LABS: Estimated Average Glucose 97 mg/dL
[2022-08-23 09:56] LABS: Folate 11.2 ng/mL (> or = 4.0); Insulin 13 uU/mL (2-29); TSH reflex Free T4 1.73 uIU/mL (0.32-4.0); Vitamin B12 773 pg/mL (200-900); Vitamin D 25-OH Total 28.9 ng/mL (>30)
[2022-08-24 12:39] LABS: Calcium (PTHI) 8.8 mg/dL (8.6-10.2); PTHI 10 pg/mL (16-77)
[2022-08-28 00:14] LABS: Zinc 73 mcg/dL (60-130)
[2022-08-28 11:23] LABS: Vitamin B1 8 nmol/L (8-30)
[2022-08-29 01:09] LABS: Vitamin A 51 mcg/dL (38-98)
== END 2022-08-23 07:53 | disposition home or self-care (01) ==
LOC: HO.LAB 07:52
PROVIDERS: PCP Internal Medicine; Visit Provider Physician Assistant Surgical
DX: Z98.84 Bariatric surgery status (principal)
CPT/HCPCS: 36415; 80053; 80061; 82306; 82607; 82746; 83036; 83525; 83970; 84425; 84443; 84590; 84630; 86140

== ENCOUNTER → 2022-09-02 11:31 | Day surgery (SDC) | payer MEDICAID, SELFPAY ==
--- NOTE | 2022-09-01 09:07 | P.CONAN_ITS ---
Documented by User: Reena Squires NP 09/01/22 09:11 HPI - Anesthesia Eval Consult details Narrative: 42yo F for Left L4-L5 Transforaminal Epidural Steroid Injection Hx gastric bypass 05/2021 [facility] Active Problems Active Problems: All Active Problems (Updated 05/18/21 @ 07:59 by Aurora Mena LPN) Polyarthralgia (Acute) Sacroiliac joint pain (Acute) Lumbar facet arthropathy (Acute) Lumbar back pain with radiculopathy affecting left lower extremity (Acute) BMI 38.0-38.9,adult (Acute) Obesity (Acute) Intra-abdominal adhesions (Acute) S/P laparoscopic sleeve gastrectomy (Acute) Morbid obesity (Acute) Gastric bypass status for obesity (Acute) Past Medical History Medical History Abnormal EKG ADHD Bipolar 1 disorder Chronic post-traumatic stress disorder (PTSD) Depression Hidradenitis Hx of borderline personality disorder Intra-abdominal adhesions Pre-op evaluation Family History Family History Mother Obesity Diabetes mellitus Sister No problems noted. Son Leukemia Obesity Family history of problems with anesthesia: No Surgical History Surgical History Gastric bypass status for obesity Hx of esophagogastroduodenoscopy S/P laparoscopic sleeve gastrectomy History of Problems with Anesthesia: No Social History Social History Are you a primary director of healthcare systems to a significant other at home: No Do you presently have visiting nurse or other home services: No Alcohol intake: never Patient Tobacco Use Status: Never used Tobacco Use of substances other than those prescribed or required for medical reasons: No Are you DNR?: No Advance Directives: No Advance Directives Information Provided: Yes Advance Directives Date on File: 05/15/21 service: No Current occupational status: unemployed Meds Allergies Allergy/AdvReac Type Severity Reaction Status Date / Time No Known Allergies Allergy Verified 08/19/22 11:00 Home Medications Medication Instructions Recorded Confirmed Last Taken Type bupropion HCl 300 mg 24 hr tablet, 300 mg PO QAM 01/28/21 07/29/22 05/07/21 History extended release (Wellbutrin XL) minocycline 100 mg capsule 100 mg PO BID 01/28/21 07/29/22 05/07/21 History spironolactone 100 mg tablet 100 mg PO BID 01/28/21 07/29/22 05/07/21 History valacyclovir 500 mg tablet 1 tab PO DAILY 05/08/21 07/29/22 Unknown History ziprasidone HCl 80 mg capsule 2 cap PO BEDTIME 05/08/21 07/29/22 Unknown History amlodipine 5 mg tablet 5 mg PO QAM 07/23/22 07/29/22 Unknown History lidocaine 5 % topical ointment topical mild pain 07/23/22 07/29/22 Unknown History celecoxib 200 mg capsule 200 mg PO moderate pain 07/29/22 07/29/22 Unknown History meloxicam 15 mg tablet 15 mg PO QAM 07/29/22 07/29/22 Unknown History methocarbamol 500 mg tablet 500 mg PO Q6H 07/29/22 07/29/22 Unknown History betamethasone dipropionate 0.05 % topical 08/19/22 Unknown History topical ointment cetirizine 10 mg tablet 10 mg PO QAM 08/19/22 Unknown History dulaglutide 0.75 mg/0.5 mL 0.75 mg subcut QWEEK 08/19/22 Unknown History subcutaneous pen injector (Trulicity) hydrocodone 5 mg-acetaminophen 325 1 tab PO Q6H PRN severe pain 08/19/22 Unknown History mg tablet Exam Exam Date and Time: September 01, 2022 0907 Pertinent Lab Results Pertinent Lab Results: Laboratory Tests 07/08/22 08/23/22 11:37 08:04 WBC 9.3 Hgb 14.3 Hct 42.3 Plt Count 260 Sodium 141 Potassium 4.3 Chloride 109 H Carbon Dioxide 25 BUN 10 Creatinine 0.83 Assessment and Plan Assessment Anesthesia Assessment: Chart Reviewed Final Anesthetic Review Family History of Problems with Anesthesia: No History of Problems with Anesthesia: No Documented by User: Ann Ca MD 09/02/22 12:54 [facility] Past Medical History Medical History Abnormal EKG ADHD Bipolar 1 disorder Chronic post-traumatic stress disorder (PTSD) Depression Hidradenitis Hx of borderline personality disorder Intra-abdominal adhesions Pre-op evaluation Family History Family History Mother Obesity Diabetes mellitus Sister No problems noted. Son Leukemia Obesity Surgical History Surgical History Gastric bypass status for obesity Hx of esophagogastroduodenoscopy S/P laparoscopic sleeve gastrectomy Social History Social History Are you a primary director of healthcare systems to a significant other at home: No Do you presently have visiting nurse or other home services: No Alcohol intake: never Patient Tobacco Use Status: Never used Tobacco Use of substances other than those prescribed or required for medical reasons: No Are you DNR?: No Advance Directives: No Advance Directives Information Provided: Yes Advance Directives Date on File: 05/15/21 service: No Current occupational status: unemployed Meds Allergies Allergy/AdvReac Type Severity Reaction Status Date / Time No Known Allergies Allergy Verified 08/19/22 11:00 Home Medications Medication Instructions Recorded Confirmed Last Taken Type bupropion HCl 300 mg 24 hr tablet, 300 mg PO QAM 01/28/21 07/29/22 05/07/21 History extended release (Wellbutrin XL) minocycline 100 mg capsule 100 mg PO BID 01/28/21 07/29/22 05/07/21 History spironolactone 100 mg tablet 100 mg PO BID 01/28/21 07/29/22 05/07/21 History valacyclovir 500 mg tablet 1 tab PO DAILY 05/08/21 07/29/22 Unknown History ziprasidone HCl 80 mg capsule 2 cap PO BEDTIME 05/08/21 07/29/22 Unknown History amlodipine 5 mg tablet 5 mg PO QAM 07/23/22 07/29/22 Unknown History lidocaine 5 % topical ointment topical mild pain 07/23/22 07/29/22 Unknown History celecoxib 200 mg capsule 200 mg PO moderate pain 07/29/22 07/29/22 Unknown History meloxicam 15 mg tablet 15 mg PO QAM 07/29/22 07/29/22 Unknown History methocarbamol 500 mg tablet 500 mg PO Q6H 07/29/22 07/29/22 Unknown History betamethasone dipropionate 0.05 % topical 08/19/22 Unknown History topical ointment cetirizine 10 mg tablet 10 mg PO QAM 08/19/22 Unknown History dulaglutide 0.75 mg/0.5 mL 0.75 mg subcut QWEEK 08/19/22 Unknown History subcutaneous pen injector (Trulicity) hydrocodone 5 mg-acetaminophen 325 1 tab PO Q6H PRN severe pain 08/19/22 Unknown History mg tablet Exam Airway Mallampati Class: II TM Dist: >3cm Neck ROM: Full Heart: rrr Lungs: cta Assessment and Plan Assessment Anesthesia Assessment: Anesthesia Plan Discussed Final Anesthetic Review NPO: Yes ASA Class: II Final Preanesthetic Review: No Changes in Pt Med Stat, Meds/Allgs Chart Reviewed, Consent Obtained/Reviewed and Anes Risks/Benef Reviewed Patient Risk: Low Procedure Risk: Low Anesthetic Plan Anesthetic Plan: MAC: Disposition: Standard PACU
[2022-09-02 12:39] LABS: UPreg QC Valid YES
[2022-09-02 12:40] LABS: Urine Pregnancy NEGATIVE (NEGATIVE)
[2022-09-02 12:41] VITALS: BP 132/90; PULSE 61; RESP 18; TEMP 36.1; O2SAT 98
--- NOTE | 2022-09-02 13:05 | PC.NURSE ---
pt decision not to consent for injection without anesthesia. self cancel. no iv started
== END ==
PROVIDERS: Nurse Practitioner; PCP Internal Medicine; Visit Provider Anesthesiology
DX: M54.16 Radiculopathy, lumbar region (principal); Z53.29 Procedure and treatment not carried out because of patient's decision for other reasons
CPT/HCPCS: 81025

== ENCOUNTER → 2022-09-03 08:26 | Outpatient (BNVA) | payer MEDICAID, SELFPAY | PROVIDERS: PCP Internal Medicine; Visit Provider Physician Assistant ==

== ENCOUNTER 2022-10-07 13:40 | Outpatient (AMB) | payer MEDICAID, SELFPAY ==
[2022-10-07 14:01] VITALS: BMI 37.2
--- NOTE | 2022-10-07 14:01 | MHC.OFFVIS ---
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 Patient reports that she has had ongoing shoulder pain for about 1-2 year now, painful ROM, weakness and complains of stiff neck. 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 She complains of pain, stiffness, and limited ROM of her shoulder, as well as some stiffness in her neck. She says this has been present for 1-2 years now. She says her pain is worse at night She follows with Pain Management for lumbar arthropathy, polyarthralgia and SI joint pain. She has received a lumbar spine injection on 08/17/22, with some relief. [facility] Medical History Abnormal EKG ADHD Bipolar 1 disorder Chronic post-traumatic stress disorder (PTSD) Depression Hidradenitis Hx of borderline personality disorder Intra-abdominal adhesions Pre-op evaluation Surgical History Gastric bypass status for obesity Hx of esophagogastroduodenoscopy S/P laparoscopic sleeve gastrectomy Family History Mother Obesity Diabetes mellitus Sister No problems noted. Son Leukemia Obesity Social History Are you a primary healthcare sales representative to a significant other at home: No Do you presently have visiting nurse or other home services: No Alcohol intake: never Patient Tobacco Use Status: Never used Tobacco Advance Directives Date on File: 05/15/21 service: No Current occupational status: unemployed Review of Systems Const All systems reviewed & are unremarkable except as noted in HPI and below Physical Exam Vital Signs: BMI result Body Mass Index 37.2 Const General: no acute distress, alert and awake Orientation/consciousness: patient oriented x3 HEENT Head: Yes normocephalic and Yes atraumatic Eyes EOM: EOMs intact bilaterally Resp Effort & Inspection: normal respiratory effort and able to speak in complete sentences Cardio Jugular venous distension: no JVD Skin General skin exam: turgor normal Rashes: no rashes Neuro General: patient oriented x3 Extrem Other: Right Shoulder: + H/N Neg empty can 90/30/130/L5 Psych Appearance: grossly normal Affect: normal affect Attitude: cooperative Office Procedures Joint Injection/Drain Joint Injection/Drain Details: Injected 1 mL of Decadron and 3 mL 1% lidocaine and 3 mL of 0.25% Marcaine. Site was prepped using aseptic technique. Patient tolerated the procedure well. Primary Site: right shoulder Approach Used: posterolateral Coding - Large joint Procedure code (CPT) selection complete Results Reviewed Results Reviewed: 10/07/22 14:28 BUPivacaine MPF 0.25 % [Sensorcaine-MPF 0.25% 10 ML] 10 ml .ROUTE .STK-MED ONE Lidocaine HCl 2 % MPF [Xylocaine 2 % MPF] 5 ml .ROUTE .STK-MED ONE dexAMETHasone sod phosphate [Decadron] 4 mg .ROUTE .STK-MED ONE I personally reviewed relevant radiographs. Nl right shoulder radiographs Assessment & Plan Assessment & Plan (1) Impingement syndrome of right shoulder: Code(s): M75.41 - Impingement syndrome of right shoulder Plan: This is a 42 year old woman with right shoulder impingement, with mild OA on radiographs. She has pain with daily activity, worse with overhead activity and at night. I discussed her diagnosis and treatment options. I injected her right shoulder today, which she tolerated well, and she was provided a handout of shoulder exercises to perform at home. If her symptoms persist or worsen we can consider formal PT. (2) Arthritis of right shoulder region: Code(s): M19.011 - Primary osteoarthritis, right shoulder Plan Scribed for Chuy Noriega MD by Toñito Camarillo, medical genetics director, on 10/07/22 at 2:30 PM, EST. Coding Level of Care Code New Pt Level 4 (09481) Diagnoses Impingement syndrome of right shoulder M75.41 Arthritis of right shoulder region M19.011 CPT Codes Coding - Large joint: 56266 - Large joint ([id number])
== END 2022-10-07 14:37 | disposition home or self-care (01) ==
PROVIDERS: PCP Internal Medicine; Visit Provider Orthopaedic Surgery
DX: M75.41 Impingement syndrome of right shoulder (principal); M19.011 Primary osteoarthritis, right shoulder
CPT/HCPCS: 20610; 99204

== ENCOUNTER → 2022-10-07 13:40 | Outpatient (BNVA) | payer MEDICAID, SELFPAY | PROVIDERS: PCP Internal Medicine; Visit Provider Orthopaedic Surgery | DX: M75.41 Impingement syndrome of right shoulder (principal); M19.011 Primary osteoarthritis, right shoulder | CPT/HCPCS: 20610; 99202; J1100 ==

== ENCOUNTER 2022-10-13 11:03 | Outpatient (AMB) | payer MEDICAID, SELFPAY ==
--- NOTE | 2022-10-13 11:06 | A.OFFVIS_ITS ---
Intake VS Expanded 10/13/22 11:11 Height 5 ft 3.5 in Weight 194 lb 3.2 oz BMI 33.9 BP 126/84 Blood Pressure Location Rt brachial Blood Pressure Position Sitting Pulse 73 Pulse Source Pulse Oximeter Temp 97.8 F Temperature Source Temporal Artery Scan Pulse Oximetry 98 Oxygen Delivery Method Room Air Body Fat 75.8 Body Fat Percentage 39.1 Free Fat Mass 118.2 Muscle Mass 112.2 Visceral Mass 9.0 Water Mass 84.4 BMR 1,634 Intake Visit Reasons: (OV) PO LSG 05/13/21 Allergies No Known Allergies Allergy (Verified 10/13/22 11:08) HPI HPI Comments History of Present Illness Details This?is a?42?yo female who is s/p LSG 05/13/2021. Presents for 17 month post op visit. Weight at last visit on 07/29/2022 was 212.6 pounds with a BMI of 37.7, weight today is 194.2 pounds, representing a 18.4 pound weight loss with a BMI today of 34.4.? Denies abdominal pain, but states many things she eats makes her sick - nauseated. Rare coffee drinker. Present meal plan includes: at last visit discussed goal of 2 premade shakes per day which will get her 60g protein- did not feel full with these eats fruits, veg not taking MVI All meals last 20 - 30 minutes and does not drink and eat at the same time. Exercise routine includes: none, has a lot of fatigue and chronic pain Pt reports problems of excess skin of abdomen and upper legs. Pt reports rashes of excess skin of abdomen, painful and worse when weather is hot. Has tried a chafing deoderant stick which has not resolved the problem. Moisture collects in skin fold and smells unpleasant so she has to wash multiple times a day. Has to wear compressive waistbands on her pants to hold excess skin in place. The excess skin is very heavy and worsens her back pain due to the weight of the skin in front of her body. Pt reports chafing and friction of excess skin of upper thighs. Chafing deoderant stick has not resolved these issues. Cannot wear shorts due to skin being on contact worsening the friction. Has tried shapewear to hold skin in place but this does not help as moisture will collect in the skin folds and fabric, and result in unpleasant odor. Movement and range of motion is limited due to the discomfort resulting from the excess skin, particularly considering her chronic pain and the weight of the excess skin. [facility] Medical History Abnormal EKG ADHD Bipolar 1 disorder Chronic post-traumatic stress disorder (PTSD) Depression Hidradenitis Hx of borderline personality disorder Intra-abdominal adhesions Pre-op evaluation Surgical History Gastric bypass status for obesity Hx of esophagogastroduodenoscopy S/P laparoscopic sleeve gastrectomy Family History Mother Obesity Diabetes mellitus Sister No problems noted. Son Leukemia Obesity Social History Are you a primary child care provider to a significant other at home: No Do you presently have visiting nurse or other home services: No Alcohol intake: never Patient Tobacco Use Status: Never used Tobacco Advance Directives Date on File: 05/15/21 service: No Current occupational status: unemployed Assessment & Plan Assessment & Plan (1) Obesity: Code(s): E66.9 - Obesity, unspecified (2) S/P laparoscopic sleeve gastrectomy: Comment: 05/13/21 Code(s): Z98.84 - Bariatric surgery status Plan Discussed ensuring adequate protein intake every day. Also discussed avoiding triggering foods that can precipitate nausea. Pt may be experiencing a degree of dumping syndrome as she reports nausea after eating foods high in carbs like potato chips. She does not have any difficulty with liquids, meats like chicken, fruits or veg. Gave pt handout on protein cobb and discussed trying unflavored Isopure which pt was interested in. Recommended 2 servings a day for 40g protein and pt should get an additional 35-40g from foods. Clotrimazole ointment ordered for issues of excess skin. PPI refill provided. RTC 3 months. Patient is obese and is not considered stable at this time. I spent a total of 30 minutes reviewing/updating records, examining the patient and counseling the patient on weight management as detailed above. Medications: New clotrimazole 1% 1 appl topical BID 45 grams 3RF Changed From pantoprazole 20 mg PO DAILY 90 tabs 1RF To pantoprazole 40 mg (2 x 20 mg) PO BID 180 tabs 3RF Coding Level of Care Code Est Pt Level 4 (15690) Diagnoses Obesity E66.9 S/P laparoscopic sleeve gastrectomy Z98.84
[2022-10-13 11:11] VITALS: BP 126/84; PULSE 73; TEMP 36.6; O2SAT 98; BMI 33.9
== END 2022-10-13 11:51 | disposition home or self-care (01) ==
PROVIDERS: PCP Internal Medicine; Visit Provider Physician Assistant Surgical
DX: E66.9 Obesity, unspecified (principal); Z98.84 Bariatric surgery status
CPT/HCPCS: 99214

== ENCOUNTER → 2022-10-13 11:03 | Outpatient (BNVA) | payer MEDICAID, SELFPAY | PROVIDERS: PCP Internal Medicine; Visit Provider Physician Assistant Surgical | DX: E66.9 Obesity, unspecified (principal); Z98.84 Bariatric surgery status; Z68.33 Body mass index [BMI] 33.0-33.9, adult | CPT/HCPCS: 99214 ==

== ENCOUNTER 2022-10-15 15:46 | Outpatient (AMB) | payer MEDICAID, SELFPAY ==
--- NOTE | 2022-10-15 15:47 | A.OFFVIS_ITS ---
Intake Vital Signs 10/15/22 15:51 Height 5 ft 3 in Weight 195 lb 6 oz BMI 34.6 BP 130/89 Blood Pressure Location Rt brachial Position Sitting Pulse 72 Pulse Source Pulse Oximeter Pulse Oximetry (%) 98 Oxygen Delivery Method Room Air Intake Visit Reasons: follow up Allergies No Known Allergies Allergy (Verified 10/15/22 15:52) HPI HPI Comments History of Present Illness Details Patient presents today to discuss interventional procedure for left sided radiculopathy. Patient reports she declined Left L4-L5 TFESI injection on 09/02/22 due to local instead of sedation anesthesia. Denies any recent cough, cold, infection, fever or other significant changes in medical history since last office visit. Patient denies any bladder or bowel incontinence or saddle anesthesia. PRIOR: Patient presents today to assess response to Bilateral Diagnostic L3-L4-DRL5 MBB on 08/19/[address] Badillo. Patient reports 0% pain relief since procedure. She endorses left sided radicular pain and pain across her lower back. Patient was informed that lumbar medial branch blocks are diagnostic injections designed to determine if a patient's back pain is generated from the lumbar facet joints. We also reviewed that she has pending injections for left L4-L5 TFESI with sedation. She reports minimal effect with recent Medrol Pedrito, 5 day script of tramadol and muscle relaxant. She was also prescribed recently Vicodin by her PCP with mild analgesia. Patient also reports easy fatigability, numbness and tingling in her upper and lower extremities, multiple symmetrical tender points and multiple joint. She is concerned for inflammatory arthritis and request referral to Rheumatology. Denies any recent cough, cold, infection, fever or other significant changes in medical history since last office visit. Patient denies any bladder or bowel incontinence or saddle anesthesia. PRIOR: Patient is a pleasant 41 years old female presents today with low back pain with left sided radiculopathy. Denies any inciting events. 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 Patient reports pain has been progressively worse since last July 2021. She currently is not employed and has been on permanent disability. Back pain is axial and also radiates to distal left leg laterally and posteriorly with associated numbness and tingling in her left ankle and foot but also reports bilateral neuropathy pain in both feet. Patient reports she tried physical therapy at [facility] but had to stop due to exacerbation of pain. Denies previous back surgery or injections. Reports history of gastric bypass surgery and tries to avoid regular use of NSAIDs. Pain affects her daily activities, functioning, sleep, mood, social interactions and quality of life. Lumbar spine xray and MRI imaging was reviewed and is noted below. Denies any bladder or bowel incontinence or saddle anesthesia. Location Chronic low back pain Duration Since July 2021 Characteristics of symptom or complaint Throbbing, shooting, stabbing, sharp, burning, tingling, heavy, radiating Aggravating or associated factors Sitting, walking standing, changing positions Relieving factors Heat therapy, Tylenol, lidocaine pathces, cyclobenzaprine, Ibuprofen Treatment [facility] Medical History Abnormal EKG ADHD Bipolar 1 disorder Chronic post-traumatic stress disorder (PTSD) Depression Hidradenitis Hx of borderline personality disorder Intra-abdominal adhesions Pre-op evaluation Surgical History Gastric bypass status for obesity Hx of esophagogastroduodenoscopy S/P laparoscopic sleeve gastrectomy Family History Mother Obesity Diabetes mellitus Sister No problems noted. Son Leukemia Obesity Social History Are you a primary day care aide to a significant other at home: No Do you presently have visiting nurse or other home services: No Alcohol intake: never Patient Tobacco Use Status: Never used Tobacco Advance Directives Date on File: 05/15/21 service: No Current occupational status: unemployed Review of Systems Const All systems reviewed & are unremarkable except as noted in HPI and below Physical Exam Vital Signs: Last Vital Signs Pulse 72 10/15/22 15:51 BP 130/89 10/15/22 15:51 Pulse Ox 98 10/15/22 15:51 Oxygen Delivery Method Room Air 10/15/22 15:51 BMI result Body Mass Index 34.6 General: Appears afebrile. Alert and oriented. Mood and affect appropriate. Follows and participates in conversation appropriately. Respiratory effort is unlabored. Able to transition from sit to stand unassisted. Ambulates with bilaterally normal heel strike and toe off, reports imbalance on left side/ Back/Spine/Pelvis Cervical Spine: cervical ROM normal and No Cervical spine tenderness Thoracic/Lumbar Spine: thoracic and lumbar spine normal to inspection, No Thoracic/lumbar spine scar(s), Lasegue's sign positive on the left and localized, pain with thoraco-lumbar ROM, paraspinal muscle tenderness, thoraco- lumbar ROM limited, No thoracic spinal tenderness and lumbar spinal tenderness Pelvis: buttock tenderness on the left Sacroiliac joints: bilaterally tender to palpation Results Reviewed Results Reviewed: Lumbar spine, right shoulder, bilateral foot 07/12/22 CLINICAL INDICATION: Fell in shower with pain. COMPARISON: Right shoulder 06/21/2022 TECHNIQUE: lumbar spine 4 views. Right shoulder 4 views. 3 views each foot. FINDINGS: Lumbar spine: There is normal lumbar lordosis. There is mild dextroscoliosis lumbar spine. No visible acute fracture, dislocation or subluxation seen. No bony erosive changes. SI joints are symmetrical and normal. There is mild loss of L4-L5 disc height. There is minimal ventral spondylosis seen throughout the lumbar spine. Rest of the disc heights, vertebral heights and alignment is normal. No aggressive lytic or sclerotic process seen. Right shoulder: The glenohumeral joint and AC joint space is maintained normal. There is mild superior distal clavicular spurring at the AC joint. No loose bodies or bony erosive changes seen. The soft tissues are normal. Left foot: There is no visible acute fracture, dislocation or subluxation seen. There is an accessory bone at the proximal end of fifth metatarsal. The ankle mortise and subtalar joints are normal. This is associated with this mild soft tissue swelling. There is no abnormal joint effusion. The soft tissues are normal. Right foot: No acute fracture or dislocation seen. A small accessory bone in the proximal end of fifth metatarsal with mild soft tissue swelling. The ankle mortise and subtalar joints are normal. IMPRESSION: Mild degenerative changes right lateral clavicle. No acute fracture or dislocation seen right shoulder. Mild degenerative changes L4-L5 disc level without any visible acute fracture or dislocation. There is minimal ventral spondylosis throughout lumbar spine. Bilateral axillary ossicles at the proximal end of fifth metatarsal with mild soft tissue swelling likely cause of pain as there is an arrow pointing to the area of pain. No acute fracture or dislocation in either foot. MR LUMBAR SPINE WITHOUT CONTRAST 06/03/22 CLINICAL INFORMATION: Lower back pain with left-sided sciatica. COMPARISON: Plain films of the lumbar spine 07/16/2017. FINDINGS: VERTEBRAL BODIES AND PARASPINAL STRUCTURES: There is a mild grade 1 anterolisthesis of L4 on L5. There are retrolistheses of L1 on L2 and L3 on L4. There is multilevel narrowing of intervertebral disc height throughout the spine, sparing L5-S1. This is most severe at L1-L2 and L4-L5. Vertebral body heights are maintained, and no fractures are demonstrated. There are degenerative endplate contour changes with mild edematous signal at L3-L4. There is a Schmorl's node in superior endplate of L2 with mild edematous signal. Vertebral body heights are maintained and no fractures are demonstrated. Overall, marrow signal is homogenous. The visualized retroperitoneal structures are unremarkable. There is an incompletely visualized right ovarian cyst measuring up to 5.1 cm. CONUS MEDULLARIS AND CAUDA EQUINA: Normal, terminating at the level of T12-L1. The lower thoracic spinal cord appears normal. The cauda equina nerve roots and filum terminale appear normal. SPINAL LEVELS: T12-L1: The facet joints appear normal bilaterally. Disc contour is normal. There is no central stenosis or foraminal narrowing. L1-L2: There is mild bilateral facet arthropathy with ligamenta flava hypertrophy and small facet joint effusions. There is a shallow posterior disc protrusion without significant mass effect on the thecal sac extending into the inferior neural foramina without definite exiting nerve root impingement. There is no central stenosis. L2-L3: There is mild bilateral facet arthropathy. There is a small right foraminal disc protrusion with an annular fissure and there may be impingement on the exiting right L2 nerve root. The left neural foramen is patent, and there is no central stenosis. L3-L4: There is moderate bilateral facet arthropathy with ligamenta flava hypertrophy and facet joint effusions. There is a broad-based posterior disc protrusion which is focally more prominent in the midline with some distortion of the ventral thecal sac and there is narrowing of the subarticular recess on the left. There is mild central stenosis. There are bilateral foraminal disc protrusions extending far laterally, more prominent on the left and there is impingement on the exiting and extraforaminal L3 nerve roots, more severely on the left. L4-L5: There is severe bilateral facet arthropathy with ligamenta flava hypertrophy and facet joint effusions. There may be a small synovial cyst developing anteromedially off the left facet joint and there is some distortion of the dorsal thecal sac laterally on the left. There is unroofing of the disc as a result of the anterolisthesis. There are bilateral foraminal disc protrusions without definite exiting nerve root impingement. There is mild narrowing of the bilateral subarticular recesses, but there is no significant central stenosis. L5-S1: There is markedly severe right and severe left facet arthropathy. There is a shallow posterior disc protrusion without mass effect on the thecal sac and there is no central stenosis. There is no foraminal nerve root impingement IMPRESSION: 1. There is a grade 1 anterolisthesis of L4 on L5 secondary to facet arthropathy. There may be a small synovial cyst developing anteromedially on the left. There are bilateral foraminal disc protrusions without definite exiting nerve root impingement. There is no significant central stenosis. 2. At L3-L4 there is moderate facet arthropathy. There is a broad-based posterior disc protrusion extending far laterally with impingement on the exiting and extraforaminal L3 nerve roots, more severely on the left. There is mild central stenosis. 3. At L2-L3 there is a small right foraminal disc protrusion with an annular fissure and there may be impingement on the exiting right L2 nerve root. There is no central stenosis. 4. At L5-S1 there is markedly severe right and severe left facet arthropathy. There is no central stenosis or foraminal nerve root impingement. 5. There is a right sided ovarian cyst measuring up to 5.1 cm. Recommend prompt follow-up pelvic ultrasound. Assessment & Plan Assessment & Plan (1) Sacroiliac joint pain: Code(s): M53.3 - Sacrococcygeal disorders, not elsewhere classified (2) Lumbar facet arthropathy: Code(s): M47.816 - Spondylosis without myelopathy or radiculopathy, lumbar region (3) Lumbar back pain with radiculopathy affecting left lower extremity: Code(s): M54.16 - Radiculopathy, lumbar region Plan 1. Discussed TFESI injections with local vs sedation at greater length. Expectations, risks and benefits were reviewed. Patient requests Dr. Ferrer for her back injection under local anesthesia. 2. For ongoing radicular left sided back pain, will proceed with Left L4-L5 TFESI with local and fluoroscopy. Patient is aware to call if pain worsens or if she develops any red flag symptoms to seek emergency care. Patient denies any cauda equina syndrome symptoms at this time. All questions were answered and patient agreed with the plan. Follow up after injections and sooner if needed. Anticoagulation: Patient not on anticoagulant Justification for interventional therapy: ? Patient with average pain > 6/10 ? Patient has exhausted conservative therapy, NSAIDs, physical therapy The risks, consequences, alternatives, and benefits of various treatment options were discussed with the patient in great detail, including conservative management, injections and procedures. Patient was informed of hyperglycemic effects of steroids. Coding Level of Care Code Est Pt Level 3 (10841) Diagnoses Sacroiliac joint pain M53.3 Lumbar facet arthropathy M47.816 Lumbar back pain with radiculopathy affecting left lower extremity M54.16
[2022-10-15 15:51] VITALS: BP 130/89; PULSE 72; O2SAT 98; BMI 34.6
== END 2022-10-15 16:01 | disposition home or self-care (01) ==
PROVIDERS: PCP Internal Medicine; Visit Provider Nurse Practitioner Family
DX: M53.3 Sacrococcygeal disorders, not elsewhere classified (principal); M47.816 Spondylosis without myelopathy or radiculopathy, lumbar region; M54.16 Radiculopathy, lumbar region
CPT/HCPCS: 99213

== ENCOUNTER → 2022-10-15 15:46 | Outpatient (BNVA) | payer MEDICAID, SELFPAY | PROVIDERS: PCP Internal Medicine; Visit Provider Nurse Practitioner Family | DX: M53.3 Sacrococcygeal disorders, not elsewhere classified (principal); M47.816 Spondylosis without myelopathy or radiculopathy, lumbar region; M54.16 Radiculopathy, lumbar region | CPT/HCPCS: 99213 ==

== ENCOUNTER 2022-11-02 14:03 | Outpatient (REF) | payer MEDICAID, SELFPAY ==
[2022-11-02 18:21] LABS: Appearance Urine Clear; Color Urine Yellow; Glucose Urine UA Negative (Negative); Leukocyte Esterase Urine Negative (Negative); Nitrite Urine Negative (Negative); PH 5.5 (5.0-9.0); Specific Gravity - Urine >= 1.030 (1.005-1.025); Urine Blood Negative (Negative); Urine Ketones 15 mg/dL (Negative); Urine Protein Negative (Neg-Trace)
[2022-11-02 18:46] LABS: TSH reflex Free T4 1.93 uIU/mL (0.32-4.0)
[2022-11-02 19:07] LABS: Alanine Aminotransferase 20 U/L (0-31); Albumin Level 4.1 g/dL (3.5-5.0); Alkaline Phosphatase 54 U/L (39-117); Anion Gap 13 (12-20); Aspartate Amino Transferase 18 U/L (5-31); Bilirubin Total 0.3 mg/dL (0.0-1.0); Blood Urea Nitrogen 12 mg/dL (9-16); Calcium 9.2 mg/dL (8.4-10.2); Carbon Dioxide 23 mmol/L (22-29); Chloride 109 mmol/L (96-108); Estimated Glomerular Filt Rate > 60; Glucose Random 57 mg/dL (60-115); Potassium 3.7 mmol/L (3.3-5.1); Sodium 141 mmol/L (135-145)
== END 2022-11-02 14:04 | disposition home or self-care (01) ==
LOC: HO.CHCLDS 14:03
PROVIDERS: Visit Provider Family Medicine
DX: N39.46 Mixed incontinence (principal); R19.7 Diarrhea, unspecified
CPT/HCPCS: 36415; 80053; 81003; 84443; 87086

== ENCOUNTER 2022-11-04 10:51 | Outpatient (REF) | payer MEDICAID, SELFPAY ==
--- NOTE | ~2022-11-04 | XR_ITS ---
EXAMINATION: XR ABDOMEN KUB CLINICAL INDICATION: Diarrhea and abdominal pain. COMPARISON: None available. TECHNIQUE: AP view of the abdomen. FINDINGS: The bowel gas pattern is normal with no evidence of ileus or obstruction. There are left upper quadrant surgical clips and anastomotic staple lines. No unusual soft tissue calcifications are noted. There is no acute osseous abnormality. There is a mild lumbar dextroscoliosis. XR/XR KUB IMPRESSION: Unremarkable examination.
== END 2022-11-04 10:52 | disposition home or self-care (01) ==
LOC: HO.XRAY 10:51
PROVIDERS: PCP Internal Medicine; Visit Provider Family Medicine
DX: R19.7 Diarrhea, unspecified (principal)
CPT/HCPCS: 74018

== ENCOUNTER 2022-11-10 06:04 | Outpatient (REF) | payer MEDICAID, SELFPAY ==
--- NOTE | ~2022-11-10 | FL_ITS ---
EXAMINATION: XR FLUOROSCOPY WITH IMAGES CLINICAL INFORMATION: Left lumbar injection. Radiculopathy, lumbar region. COMPARISON: None available. TECHNIQUE: Fluoroscopy Supervised By: Dr. Shamar Ferrer. Fluoroscopy Time: 0.4 minutes. Cumulative Dose: 9.22 mGy. DAP: 1.33 Gycm2. Images: 4. FINDINGS: Images demonstrate needle placement and contrast injection adjacent to the left posterior lateral L4 vertebrae FL/FL guidance in treatment room IMPRESSION: Fluoroscopy guidance for pain management procedure
== END 2022-11-10 06:05 | disposition home or self-care (01) ==
LOC: CF 06:04
PROVIDERS: Visit Provider Internal Medicine
DX: M54.16 Radiculopathy, lumbar region (principal)
CPT/HCPCS: 64483; J1100

== ENCOUNTER 2022-11-10 07:32 | Outpatient (AMB) | payer MEDICAID, SELFPAY ==
[2022-11-10 07:37] VITALS: BP 120/86; PULSE 81; RESP 14; O2SAT 99
--- NOTE | 2022-11-10 07:37 | MHC.OFFVIS ---
Intake Vital Signs 11/10/22 07:37 BP 120/86 Blood Pressure Location Rt brachial Position Sitting Respiration 14 Pulse 81 Pulse Source Pulse Oximeter Pulse Oximetry (%) 99 Oxygen Delivery Method Room Air Intake Visit Reasons: Left L4-L5 TFESI Intake Note: Pt states there is no possibility of Allergies No Known Allergies Allergy (Verified 11/10/22 07:39) HPI Left L4-L5 TFESI HPI Details Patient presents for scheduled procedure. Denies any recent cough, cold, infection, fever or other significant changes in medical history since last office visit. [facility]LY [facility] Medical History Abnormal EKG ADHD Bipolar 1 disorder Chronic post-traumatic stress disorder (PTSD) Depression Hidradenitis Hx of borderline personality disorder Intra-abdominal adhesions Pre-op evaluation Surgical History Gastric bypass status for obesity Hx of esophagogastroduodenoscopy S/P laparoscopic sleeve gastrectomy Family History Mother Obesity Diabetes mellitus Sister No problems noted. Son Leukemia Obesity Social History Are you a primary companion caregiver to a significant other at home: No Do you presently have visiting nurse or other home services: No Alcohol intake: never Patient Tobacco Use Status: Never used Tobacco Advance Directives Date on File: 05/15/21 service: No Current occupational status: unemployed Physical Exam Vital Signs: Last Vital Signs Pulse 81 11/10/22 07:37 Resp 14 11/10/22 07:37 BP 120/86 11/10/22 07:37 Pulse Ox 99 11/10/22 07:37 Oxygen Delivery Method Room Air 11/10/22 07:37 Office Procedures Details: Transforaminal epidural steroid injection, Left L4 After obtaining written consent, pre-procedure blood pressure and heart rate were stable and recorded in the nursing record. The patient was placed in the prone position on the fluoroscopy table. The lumbosacral area was prepped with chloraprep, allowed to dry and draped in sterile fashion. Using fluoroscopy, the skin overlying our target was anesthetized with 0.5% lidocaine. A 22 gauge 5 inch spinal needle was advanced to the safe triangle in the upper pole of the left L4 foramen. No paresthesias were elicited with needle placement and aspiration was negative for blood and CSF. Correct needle position was confirmed with approximately 1 ml contrast dye (Isovue 300 mg/ml) injected under real-time fluoroscopy. No evidence of vascular or intrathecal uptake was seen and there was both epidural and peripheral spread of the contrast agent. 10 mg dexamethasone plus 1 ml containing 0.5% lidocaine was slowly injected. The needle was flushed and removed. The skin was cleansed and a sterile bandages were applied. The patient tolerated the procedure well and no complications were encountered. Following the procedure the patient's vital signs were stable. The patient was discharged home in good condition with post-procedural instructions. Time Out: Immediately prior to the procedure, the following was verbally confirmed that there is a signed consent form and that the correct patient, planned procedure, site and side are consistent with documentation and that necessary equipment and/or blood products are available prior to the start of the case. Complications: none EBL: <5 cc 18312 - Lumbar/Sacral Procedure code (CPT) selection complete Assessment & Plan Assessment & Plan (1) Lumbar back pain with radiculopathy affecting left lower extremity: Code(s): M54.16 - Radiculopathy, lumbar region Plan Patient is status post left L4 TFESI. Patient tolerated procedure well and was discharged home in stable condition with discharge instructions. All questions were answered. We will follow-up via telephone or in clinic to assess response to therapy. A follow-up appointment was made during today's visit. Orders: Orders FL guidance in treatment room Today M54.16 - Radiculopathy, lumbar region Coding Level of Care Code Procedure Only Diagnoses Lumbar back pain with radiculopathy affecting left lower extremity M54.16 CPT Codes Transforaminal Epidural Steroid Inj - TESI 3: 60153 - Lumbar/Sacral ([id number])
== END 2022-11-10 08:41 | disposition home or self-care (01) ==
LOC: HO.PMCPRC 07:32
PROVIDERS: PCP Internal Medicine; Visit Provider Internal Medicine
DX: M54.16 Radiculopathy, lumbar region (principal)
CPT/HCPCS: 64483

== ENCOUNTER 2022-12-02 10:51 | Outpatient (AMB) | payer MEDICAID, SELFPAY ==
[2022-12-02 11:01] VITALS: BP 122/74; PULSE 77; TEMP 36.7; O2SAT 98; BMI 33.7
--- NOTE | 2022-12-02 11:01 | A.OFFVIS_ITS ---
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 Required: No Accompanied by: Self / Same As Patient Allergies No Known Allergies Allergy (Verified 12/02/22 11:09) Medication List - Last Reconciled 12/02/22 by Caitlin Bacon MD acetaminophen 500 mg PO Q8H PRN adalimumab (Humira) 40 mg subcut QWEEK amlodipine 5 mg PO QAM betamethasone dipropionate 0.05% topical bupropion HCl (Wellbutrin XL) 300 mg PO QAM celecoxib 200 mg PO cetirizine 10 mg PO QAM cholecalciferol (vitamin D3) 25 mcg PO DAILY clotrimazole 1% 1 appl topical BID dulaglutide (Trulicity) 1.5 mg subcut QWEEK gabapentin 100 mg PO BEDTIME hydrocodone-acetaminophen 5-325 mg 1 tab PO Q6H PRN lidocaine 5% (Lidoderm) 1 patch topical DAILY PRN MDD remove after 12 hours lidocaine 5% topical methocarbamol 750 mg PO Q8H PRN 30 days ondansetron HCl 8 mg PO Q8H PRN pantoprazole 40 mg (2 x 20 mg) PO BID spironolactone 100 mg PO BID valacyclovir 1 tab PO DAILY ziprasidone HCl 2 caps PO BEDTIME HPI HPI Comments History of Present Illness Details This is a 42-year-old female who presents for evaluation of diffuse pain. Patient stated that she has had diffuse pain for at least 2 years. She was evaluated by Pain Management for her back pain and had a procedure and was not helpful. She also did physical therapy and it was not helpful. Patient is on disability on basis of her depression. She is on Humira weekly for hidradenitis suppurativa and states that it is helpful. Patient had 3 pregnancies, 1 live , 1 and 1 miscarriage. No known history of DVT/PE PFSH Medical History Intra-abdominal adhesions Depression Hidradenitis Abnormal EKG Bipolar 1 disorder Hx of borderline personality disorder ADHD Chronic post-traumatic stress disorder (PTSD) Pre-op evaluation Surgical History S/P laparoscopic sleeve gastrectomy Hx of esophagogastroduodenoscopy Gastric bypass status for obesity Family History Mother Obesity Diabetes mellitus Sister No problems noted. Son Leukemia Obesity Social History Are you a primary restorative care technician to a significant other at home: No Do you presently have visiting nurse or other home services: No Alcohol intake: never Patient Tobacco Use Status: Never used Tobacco Advance Directives Date on File: 05/15/21 service: No Current occupational status: unemployed Female Reproductive History Menstrual Total pregnancies: 3 Number of Living Children: 1 Ab induced: 1 Ab spontaneous: 1 Review of Systems Const Reports fatigue and Reports weakness GI Reports constipation and Reports heartburn Musc Reports back pain, Reports arthralgias and Reports stiffness Skin/Breast Reports unusual bruising Neuro Reports weakness Psych Reports anxiety and Reports depression Endo Reports fatigue Physical Exam Vital Signs: Last Vital Signs Temp 98.1 F 12/02/22 11:01 Pulse 77 12/02/22 11:01 BP 122/74 12/02/22 11:01 Pulse Ox 98 12/02/22 11:01 BMI result Body Mass Index 33.7 Const General: cooperative, healthy appearing and comfortable Nutritional Appearance: obese Orientation/consciousness: patient oriented x3 Limitations: no limitations HEENT Head: Yes normocephalic and Yes atraumatic Mouth: moist mucous membranes Resp Effort & Inspection: normal respiratory effort and able to speak in complete sentences Auscultation: clear to auscultation bilaterally Skin Other: tanned skin Neuro General: patient oriented x3 Extrem Other: No active synovitis Normal nailfold capillaroscopy Multiple fibromyalgia tender points Assessment & Plan Assessment & Plan (1) Fibromyalgia, primary: Code(s): M79.7 - Fibromyalgia Plan: This is a 42-year-old female who presents for evaluation of diffuse pain. I do not see any evidence of an autoimmune rheumatic disease upon my evaluation. Clinical picture consistent with fibromyalgia. She is on Humira for hidradenitis suppurativa prescribed by Dermatology Discussed management of fibromyalgia with patient. Is a noninflammatory, non- autoimmune central afferent processing disorder leading to a diffuse pain syndrome. Patient follows up regularly with a psychiatrist and a psychotherapist. Patient had a sleep study recent and sleep apnea was ruled out. advised patient to Try to follow sleep hygiene practices. Discuss CBT for sleep with psychotherapist. Patient would benefit from increased physical activity, either through formal physical therapy or by joining a gym. Advised patient that she should start activity slowly and increase as tolerated. Consider low-impact exercises such as walking, swimming, aqua therapy stretching, yoga. Follow-up with PCP Plan I spent 25 minutes reviewing patient's chart, evaluating patient, counseling patient and documenting in the chart Coding Level of Care Code New Pt Level 3 (55465) Diagnoses Fibromyalgia, primary M79.7
== END 2022-12-02 11:31 | disposition home or self-care (01) ==
PROVIDERS: PCP Internal Medicine; Visit Provider Student in an Organized Health Care Education/Training Program
DX: M79.7 Fibromyalgia (principal)
CPT/HCPCS: 99203

== ENCOUNTER → 2022-12-02 10:51 | Outpatient (BNVA) | payer MEDICAID, SELFPAY | PROVIDERS: PCP Internal Medicine; Visit Provider Student in an Organized Health Care Education/Training Program ==

== ENCOUNTER 2022-12-09 08:38 | Outpatient (AMB) | payer MEDICAID, SELFPAY ==
--- NOTE | 2022-12-09 08:39 | A.OFFVIS_ITS ---
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 Ferrer. Patient reports 0% pain relief post procedure with no improvement in her functioning, mobility or sleep. She continues to reports widespread diffuse body pain consistent with fibromyalgia, axial low back pain with left sided radiculopathy. Patient also had no pain relief with diagnostic lumbar medial branch blocks. Unfortunately, given no pain relief, patient is not candidate for peripheral nerve stimulation with Sprint PNS trial or RFA procedures. We discussed neurosurgical referral for ongoing left sided radiculopathy. Patient is interested in [facility] PT for chronic back pain and fibromyalgia. She was encouraged to follow up with her psychologist for CBT therapy, as well as consider aqua therapy. This was also recommended by recent Rheumatology evaluation. Denies any recent cough, cold, infection, fever or other significant changes in medical history since last office visit. Patient denies any bladder or bowel incontinence or saddle anesthesia. Past Procedures: 11/10/22: Left L4 TFESI-0% pain relief Chris Ferrer 08/19/22: Bilateral Diagnostic L3-L4-DRL 5 MBB-0% pain relief Dr. Badillo PRIOR: Patient is a pleasant 41 years old female presents today with low back pain with left sided radiculopathy. Denies any inciting events. 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 Patient reports pain has been progressively worse since last July 2021. She currently is not employed and has been on permanent disability. Back pain is axial and also radiates to distal left leg laterally and posteriorly with associated numbness and tingling in her left ankle and foot but also reports bilateral neuropathy pain in both feet. Patient reports she tried physical therapy at [facility] but had to stop due to exacerbation of pain. Denies previous back surgery or injections. Reports history of gastric bypass surgery and tries to avoid regular use of NSAIDs. Pain affects her daily activities, functioning, sleep, mood, social interactions and quality of life. Lumbar spine xray and MRI imaging was reviewed and is noted below. Denies any bladder or bowel incontinence or saddle anesthesia. Location Chronic low back pain Duration Since July 2021 Characteristics of symptom or complaint Throbbing, shooting, stabbing, sharp, burning, tingling, heavy, radiating Aggravating or associated factors Sitting, walking standing, changing positions Relieving factors Heat therapy, Tylenol, lidocaine pathces, cyclobenzaprine, Ibuprofen Treatment PT at [facility] Medical History Intra-abdominal adhesions Depression Hidradenitis Abnormal EKG Bipolar 1 disorder Hx of borderline personality disorder ADHD Chronic post-traumatic stress disorder (PTSD) Pre-op evaluation Surgical History S/P laparoscopic sleeve gastrectomy Hx of esophagogastroduodenoscopy Gastric bypass status for obesity Family History Mother Obesity Diabetes mellitus Sister No problems noted. Son Leukemia Obesity Social History Are you a primary toddler caregiver to a significant other at home: No Do you presently have visiting nurse or other home services: No Alcohol intake: never Patient Tobacco Use Status: Never used Tobacco Advance Directives Date on File: 05/15/21 service: No Current occupational status: unemployed Review of Systems Const All systems reviewed & are unremarkable except as noted in HPI and below Reports as per HPI, Reports difficulty sleeping, Reports fatigue, Denies fever(s), Denies frequent falls, Reports lethargy, Denies malaise, Denies weakness and Denies weight loss ENT Reports neck pain Musc Reports back pain, Reports arthralgias, Reports neck pain, Reports radiating pain into limb, Reports stiffness and Reports tingling Neuro Denies frequent falls, Reports tingling and Denies weakness Endo Reports fatigue Physical Exam Vital Signs: Last Vital Signs Pulse 69 12/09/22 08:54 BP 120/61 12/09/22 08:54 Pulse Ox 100 12/09/22 08:54 Oxygen Delivery Method Room Air 12/09/22 08:54 BMI result Body Mass Index 32.6 General: Appears afebrile. Alert and oriented. Mood and affect appropriate. Follows and participates in conversation appropriately. Respiratory effort is unlabored. Able to transition from sit to stand unassisted. Ambulates with bilaterally normal heel strike and toe off Back/Spine/Pelvis Other: Lumbar extension and flexion reproduces significant pain. Multiple widespread TTPs 16/16 bilaterally, including upper and lower extremities. Cervical Spine: cervical ROM normal, cervical muscular tenderness and No Cervical spine tenderness Thoracic/Lumbar Spine: thoracic and lumbar spine normal to inspection, No Thoracic/lumbar spine scar(s), Lasegue's sign negative, straight leg raise negative bilaterally, paraspinal muscle tenderness, No thoracic spinal tenderness and lumbar spinal tenderness Pelvis: buttock tenderness on the left Sacroiliac joints: bilaterally tender to palpation Results Reviewed Results Reviewed: Lumbar spine, right shoulder, bilateral foot 07/12/22 CLINICAL INDICATION: Fell in shower with pain. COMPARISON: Right shoulder 06/21/2022 TECHNIQUE: lumbar spine 4 views. Right shoulder 4 views. 3 views each foot. FINDINGS: Lumbar spine: There is normal lumbar lordosis. There is mild dextroscoliosis lumbar spine. No visible acute fracture, dislocation or subluxation seen. No bony erosive changes. SI joints are symmetrical and normal. There is mild loss of L4-L5 disc height. There is minimal ventral spondylosis seen throughout the lumbar spine. Rest of the disc heights, vertebral heights and alignment is normal. No aggressive lytic or sclerotic process seen. Right shoulder: The glenohumeral joint and AC joint space is maintained normal. There is mild superior distal clavicular spurring at the AC joint. No loose bodies or bony erosive changes seen. The soft tissues are normal. Left foot: There is no visible acute fracture, dislocation or subluxation seen. There is an accessory bone at the proximal end of fifth metatarsal. The ankle mortise and subtalar joints are normal. This is associated with this mild soft tissue swelling. There is no abnormal joint effusion. The soft tissues are normal. Right foot: No acute fracture or dislocation seen. A small accessory bone in the proximal end of fifth metatarsal with mild soft tissue swelling. The ankle mortise and subtalar joints are normal. IMPRESSION: Mild degenerative changes right lateral clavicle. No acute fracture or dislocation seen right shoulder. Mild degenerative changes L4-L5 disc level without any visible acute fracture or dislocation. There is minimal ventral spondylosis throughout lumbar spine. Bilateral axillary ossicles at the proximal end of fifth metatarsal with mild soft tissue swelling likely cause of pain as there is an arrow pointing to the area of pain. No acute fracture or dislocation in either foot. MR LUMBAR SPINE WITHOUT CONTRAST 06/03/22 CLINICAL INFORMATION: Lower back pain with left-sided sciatica. COMPARISON: Plain films of the lumbar spine 07/16/2017. FINDINGS: VERTEBRAL BODIES AND PARASPINAL STRUCTURES: There is a mild grade 1 anterolisthesis of L4 on L5. There are retrolistheses of L1 on L2 and L3 on L4. There is multilevel narrowing of intervertebral disc height throughout the spine, sparing L5-S1. This is most severe at L1-L2 and L4-L5. Vertebral body heights are maintained, and no fractures are demonstrated. There are degenerative endplate contour changes with mild edematous signal at L3-L4. There is a Schmorl's node in superior endplate of L2 with mild edematous signal. Vertebral body heights are maintained and no fractures are demonstrated. Overall, marrow signal is homogenous. The visualized retroperitoneal structures are unremarkable. There is an incompletely visualized right ovarian cyst measuring up to 5.1 cm. CONUS MEDULLARIS AND CAUDA EQUINA: Normal, terminating at the level of T12-L1. The lower thoracic spinal cord appears normal. The cauda equina nerve roots and filum terminale appear normal. SPINAL LEVELS: T12-L1: The facet joints appear normal bilaterally. Disc contour is normal. There is no central stenosis or foraminal narrowing. L1-L2: There is mild bilateral facet arthropathy with ligamenta flava hypertrophy and small facet joint effusions. There is a shallow posterior disc protrusion without significant mass effect on the thecal sac extending into the inferior neural foramina without definite exiting nerve root impingement. There is no central stenosis. L2-L3: There is mild bilateral facet arthropathy. There is a small right foraminal disc protrusion with an annular fissure and there may be impingement on the exiting right L2 nerve root. The left neural foramen is patent, and there is no central stenosis. L3-L4: There is moderate bilateral facet arthropathy with ligamenta flava hypertrophy and facet joint effusions. There is a broad-based posterior disc protrusion which is focally more prominent in the midline with some distortion of the ventral thecal sac and there is narrowing of the subarticular recess on the left. There is mild central stenosis. There are bilateral foraminal disc protrusions extending far laterally, more prominent on the left and there is impingement on the exiting and extraforaminal L3 nerve roots, more severely on the left. L4-L5: There is severe bilateral facet arthropathy with ligamenta flava hypertrophy and facet joint effusions. There may be a small synovial cyst developing anteromedially off the left facet joint and there is some distortion of the dorsal thecal sac laterally on the left. There is unroofing of the disc as a result of the anterolisthesis. There are bilateral foraminal disc protrusions without definite exiting nerve root impingement. There is mild narrowing of the bilateral subarticular recesses, but there is no significant central stenosis. L5-S1: There is markedly severe right and severe left facet arthropathy. There is a shallow posterior disc protrusion without mass effect on the thecal sac and there is no central stenosis. There is no foraminal nerve root impingement IMPRESSION: 1. There is a grade 1 anterolisthesis of L4 on L5 secondary to facet arthropathy. There may be a small synovial cyst developing anteromedially on the left. There are bilateral foraminal disc protrusions without definite exiting nerve root impingement. There is no significant central stenosis. 2. At L3-L4 there is moderate facet arthropathy. There is a broad-based posterior disc protrusion extending far laterally with impingement on the exiting and extraforaminal L3 nerve roots, more severely on the left. There is mild central stenosis. 3. At L2-L3 there is a small right foraminal disc protrusion with an annular fissure and there may be impingement on the exiting right L2 nerve root. There is no central stenosis. 4. At L5-S1 there is markedly severe right and severe left facet arthropathy. There is no central stenosis or foraminal nerve root impingement. 5. There is a right sided ovarian cyst measuring up to 5.1 cm. Recommend prompt follow-up pelvic ultrasound. Assessment & Plan Assessment & Plan (1) Fibromyalgia, primary: Code(s): M79.7 - Fibromyalgia (2) Lumbar back pain with radiculopathy affecting left lower extremity: Code(s): M54.16 - Radiculopathy, lumbar region (3) Polyarthralgia: Code(s): M25.50 - Pain in unspecified joint (4) Sacroiliac joint pain: Code(s): M53.3 - Sacrococcygeal disorders, not elsewhere classified (5) Lumbar facet arthropathy: Code(s): M47.816 - Spondylosis without myelopathy or radiculopathy, lumbar region Plan Patient is status post left L4 TFESI with no pain relief as well as previous diagnostic lumbar MBBs also provided no pain relief. Unfortunately, she is not candidate for further interventional treatments at this time for her low back pain with left radicular symptoms. Recommend to pursue CBT with her current psychologist and consider aqua therapy for widespread body pain consistent with fibromyalgia. Patient is aware importance of daily physical activity, sleep hygiene, weight loss, adequate hydration and stress management. She takes Percocet 5-325 mg TID prn and I will increase her Gabapentin from 100 mg to 300 mg at bedtime. Script sent to [facility] for [facility] for chronic back pain and fibromyalgia. All questions and concerns have been answered and patient agreed with the plan. Follow up as needed. Medications: Changed From gabapentin 100 mg PO BEDTIME M54.16 - Radiculopathy, lumbar region, M79.7 - Fibromyalgia To gabapentin 300 mg PO BEDTIME 30 days 30 caps 1RF pain M54.16 - Radiculopathy, lumbar region, M79.7 - Fibromyalgia Coding Level of Care Code Est Pt Level 4 (66011) Diagnoses Fibromyalgia, primary M79.7 Lumbar back pain with radiculopathy affecting left lower extremity M54.16 Polyarthralgia M25.50 Sacroiliac joint pain M53.3 Lumbar facet arthropathy M47.816
[2022-12-09 08:54] VITALS: BP 120/61; PULSE 69; O2SAT 100; BMI 32.6
== END 2022-12-09 09:15 | disposition home or self-care (01) ==
PROVIDERS: PCP Internal Medicine; Visit Provider Nurse Practitioner Family
DX: M79.7 Fibromyalgia (principal); M54.16 Radiculopathy, lumbar region; M25.50 Pain in unspecified joint; M53.3 Sacrococcygeal disorders, not elsewhere classified; M47.816 Spondylosis without myelopathy or radiculopathy, lumbar region
CPT/HCPCS: 99214

== ENCOUNTER → 2022-12-09 08:38 | Outpatient (BNVA) | payer MEDICAID, SELFPAY | PROVIDERS: PCP Internal Medicine; Visit Provider Nurse Practitioner Family | DX: M79.7 Fibromyalgia (principal); M47.26 Other spondylosis with radiculopathy, lumbar region; M25.50 Pain in unspecified joint; M53.3 Sacrococcygeal disorders, not elsewhere classified; Z98.890 Other specified postprocedural states | CPT/HCPCS: 99212 ==

== ENCOUNTER 2023-01-07 10:38 | Outpatient (AMB) | payer MEDICAID, SELFPAY ==
--- NOTE | 2023-01-07 10:54 | A.OFFVIS_ITS ---
Intake Intake Visit Reasons: stress and urge urinary incontinence Intake Note: NEW Patient presents today to established treatment for Urge Urinary Incontinence: Meds- None Allergies to Antibiotic- No Known Allergies Blood Thinner- None PVR- 16 mL Patient Symptoms: Waking up more than 4x at night, Urine leakage. 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 01/07/2023? She presents today for an evaluation of urge urinary incontinence. She has a past medical history of status post gastric bypass in 2011 at [facility], status post gastric sleeve in 05/13/2021, and history of chronic PTSD, bipolar 1, and depression. She also has a history of chronic lower back pain, fibromyalgia, and arthritis. She states that she has had frequency of urination specifically at night time. She is up 4-6 times to urinate and sometimes she leaks before getting into the bathroom. Patient is taking medication to help her sleep at 8 PM. She also takes Spironolactone 200 mg each morning. FH-her son was diagnosed with leukemia at the age 3 and currently, he is doing well. She states that she has occasional burning with urination that may last about a week and goes away on its own. She drinks only water approximately 60 ounces. She adds lemon juice to the water. Patient states that she does drink soda or coffee. She has been taking Trulicity for weight loss. She was prescribed oxybutynin daily by her PCP which she states did not help her urinary symptoms. She denies any history of cigarette smoking. I reviewed the urine culture results from 11/02/2022 which came back 10,000 to 50,000 cfu/ml mixed bacterial aren characteristic of urogenital contamination. Evaluation today?UA?leukocytes: negative; blood: negative. Plan: Ordered retroperitoneum US. Ordered Vesicare 10 mg at bed time. Follow-up in 3 months. [facility] Medical History Intra-abdominal adhesions Depression Hidradenitis Abnormal EKG Bipolar 1 disorder Hx of borderline personality disorder ADHD Chronic post-traumatic stress disorder (PTSD) Pre-op evaluation Surgical History S/P laparoscopic sleeve gastrectomy Hx of esophagogastroduodenoscopy Gastric bypass status for obesity Family History Mother Obesity Diabetes mellitus Sister No problems noted. Son Leukemia Obesity Social History Are you a primary career advisor to a significant other at home: No Do you presently have visiting nurse or other home services: No Alcohol intake: never Patient Tobacco Use Status: Never used Tobacco Advance Directives Date on File: 05/15/21 service: No Current occupational status: unemployed Review of Systems Const All systems reviewed & are unremarkable except as noted in HPI and below Reports no additional complaints Eyes Reports no additional complaints ENT Reports no additional complaints Card Denies dyspnea Resp Denies cough and Denies dyspnea GI Reports no additional complaints Reports no additional complaints Musc Reports no additional complaints Skin/Breast Denies rash and Denies unusual bruising Neuro Reports no additional complaints Psych Reports no additional complaints Endo Reports no additional complaints Rashard/Lymph Reports no additional complaints Aller/Immun Reports no additional complaints Physical Exam Const General: cooperative, healthy appearing and no acute distress Orientation/consciousness: patient oriented x3 HEENT Head: Yes normal to inspection, Yes normocephalic and Yes atraumatic Eyes Conjunctivae: conjunctivae normal Neck Neck: Yes normal visual inspection and Yes trachea midline Chest Chest palpation & inspection: normal inspection of the chest Resp Effort & Inspection: normal respiratory effort Cardio Rate: regular rate GI Inspection: Yes normal to inspection Skin General skin exam: no rashes or lesions noted Neuro General: patient oriented x3 Extrem General: No edema Psych Appearance: grossly normal Office Procedures Post Void Residual Post Residual Void Post Void Residual (PVR): 16 [id number] Void Residual by ultrasound Results AMB Urinalysis, Automated UA Leukoctes 0 Sera/uL Last Edit by JAMAL Gonzalez on 01/07/23 11:32 UA Nitrite Negative Last Edit by JAMAL Gonzalez on 01/07/23 11:32 UA Urobilinogen 0.2 mg/dL Last Edit by JAMAL Gonzalez on 01/07/23 11:3 2 UA Protein 0 mg/dL Last Edit by JAMAL Gonzalez on 01/07/23 11:32 UA pH 6.0 Last Edit by JAMAL Gonzalez on 01/07/23 11:32 UA Blood 0 Shukri/uL Last Edit by JAMAL Gonzalez on 01/07/23 11:32 UA Specific [place] 1.025 Last Edit by JAMAL Gonzalez on 01/07/23 11: 32 UA Ketone Positive Last Edit by JAMAL Gonzalez on 01/07/23 11:32 15 mg [place] 01/07/23 11:32 UA Bilirubin 0 mg/dL Last Edit by JAMAL Gonzalez on 01/07/23 11:32 UA Glucose 0 mg/dL Last Edit by JAMAL Gonzalez on 01/07/23 11:32 Results Reviewed Results Reviewed: Laboratory Last Values Urine pH (Auto) 6.0 01/07/23 11:30 Specific [place] (Auto) 1.025 01/07/23 11:30 Urine Protein (Auto) 0 mg/dL 01/07/23 11:30 Glucose (UA)(Auto) 0 mg/dL 01/07/23 11:30 Urine Ketones (Auto) Positive 01/07/23 11:30 Urine Blood (Auto) 0 Shukri/uL 01/07/23 11:30 Urine Nitrite (Auto) Negative 01/07/23 11:30 Urine Bilirubin (Auto) 0 mg/dL 01/07/23 11:30 Urine Urobilinogen (Auto) 0.2 mg/dL 01/07/23 11:30 Leukocyte Esterase (Auto) 0 Sera/uL 01/07/23 11:30 Ordered: Urine Culture Procedure Result Verified Site Urine Culture Final 11/04/22-1218 Report Result 10,000 to 50,000 cfu/ml Mixed bacterial aren characteristic of urogenital contamination. Assessment & Plan Assessment & Plan (1) Nocturia: Code(s): R35.1 - Nocturia (2) Urge incontinence of urine: Code(s): N39.41 - Urge incontinence Plan Ordered retroperitoneum US. Ordered Vesicare 10 mg at bed time. Follow-up in 3 months. Orders: Orders AMB Urinalysis Automated Today Z13.9 - Encounter for screening, unspecified AMB Post Void Residual by ultrasound Today N39.8 - Other specified disorders of urinary system US retroperitoneal comp Today R35.1 - Nocturia Medications: New solifenacin (Vesicare) 10 mg PO BEDTIME 30 tabs 3RF Patient Instructions: The patient had an opportunity to ask questions regarding treatment plan. All questions were answered. Imaging, Laboratory studies and physical exam results were discussed and reviewed in detail. No major barriers to understanding were identified. The patient expressed understanding and agreement with the above treatment plan. The patient is aware they should contact our office by phone for worsening of their current condition or the appearance of new symptoms. Compliance is encouraged with any medications and followup testing that is ordered. It is a privilege to be allowed the opportunity to participate in the urologic care of your patient. If you have any questions or concerns regarding treatment for the above conditions please do not hesitate to contact me. The office telephone contact is [phone]. This note is constructed in part using voice recognition software. While every effort has been made to ensure accuracy literary agent errors may have been included. Yours sincerely, Luis Manuel Singh MD Coding Level of Care Code New Pt Level 4 (88349) Diagnoses Nocturia R35.1 Urge incontinence of urine N39.41 CPT Codes Post Residual Void - PVR CPT Code: 85298-Elcb Void Residual by ultrasound ([id number])
== END 2023-01-07 11:53 | disposition home or self-care (01) ==
PROVIDERS: PCP Internal Medicine; Visit Provider Urology
DX: R35.1 Nocturia (principal); N39.41 Urge incontinence; Z13.9 Encounter for screening, unspecified
CPT/HCPCS: 99204

== ENCOUNTER → 2023-01-07 10:38 | Outpatient (BNVA) | payer MEDICAID, SELFPAY | PROVIDERS: PCP Internal Medicine; Visit Provider Urology | DX: R35.1 Nocturia (principal); N39.41 Urge incontinence | CPT/HCPCS: 51798; 81003 ==

== ENCOUNTER 2023-01-18 07:13 | Outpatient (REF) | payer MEDICAID, SELFPAY ==
--- NOTE | ~2023-01-18 | XR_ITS ---
EXAMINATION: XR CERVICAL SPINE CLINICAL INFORMATION: Neck pain for 3 to COMPARISON: None available. TECHNIQUE: 5 views of the cervical spine, inclusive of flexion and extension views, were obtained. FINDINGS: There is straightening of cervical lordosis with narrowing of C5-C6 intervertebral disc space with marginal spurring. Neuroforamina are not encroached. Soft tissues unremarkable. XR/XR cervical spine 5V IMPRESSION: Degenerative changes at C5-C6 level.
== END 2023-01-18 07:14 | disposition home or self-care (01) ==
LOC: HO.XRAY 07:13
PROVIDERS: PCP Internal Medicine; Visit Provider Internal Medicine
DX: M54.2 Cervicalgia (principal)
CPT/HCPCS: 72050

== ENCOUNTER 2023-02-08 13:55 | Outpatient (REF) | payer MEDICAID, SELFPAY | END 2023-02-08 13:56 | disposition home or self-care (01) | LOC: HO.HOSX 13:55 | PROVIDERS: PCP Internal Medicine; Visit Provider Physician Assistant | DX: M47.816 Spondylosis without myelopathy or radiculopathy, lumbar region (principal); M54.2 Cervicalgia | CPT/HCPCS: 99212 ==

== ENCOUNTER 2023-02-08 13:55 | Outpatient (AMB) | payer MEDICAID, SELFPAY ==
--- NOTE | 2023-02-08 14:14 | HO.SPINEOV ---
Intake Intake Visit Reasons: radiculopathy Intake Note: Ms. Sandy is here today c/o neck pain. MRI done @ [facility] [place]. Sign Language Teacher Required: No Allergies No Known Allergies Allergy (Verified 01/07/23 11:21) Assessment & Plan Assessment & Plan (1) Lumbar facet arthropathy: Code(s): M47.816 - Spondylosis without myelopathy or radiculopathy, lumbar region (2) Neck pain: Code(s): M54.2 - Cervicalgia Plan Dear Cary Thank you for referring Mrs Sandy to our office today. She is a 42-year-old female who presents to the office today for evaluation of 2 separate issues. Her original referral was for back pain going down her left leg but she is also telling me now that she has had neck pain on the right side going down her right arm with numbness of her hands now for many months as well. Her back pain and left leg pain started about 2 or 3 years ago and has steadily gotten worse. It starts in her back goes down into her left outer thigh and goes into her left calf. It is aggravated with standing and walking. It will bother her at night however. She went through physical therapy, medication trials including Tylenol, Celebrex, gabapentin as well as Percocet. Nothing seems to help it from a medical standpoint. She tried cortisone injections including median branch blocks and TFE without any significant improvement. In terms of her neck pain, it is mostly on the right side and can radiate down her arm but the primary symptom is neck pain. It goes into her forearm and biceps area. Sometimes she will have to cry herself to sleep. She has an overlapping diagnosis of fibromyalgia. PMH: The patient reports recent diagnosis of hypertension, she has had gastric weight loss surgery twice, currently takes Trulicity to help with weight loss. She has a history of anxiety, depression, borderline personality and is on Geodon, hydroxyzine, intra-abdominal adhesions, sacroiliac pain, fibromyalgia, hidradenitis. She denies any cardiac history, strokes, renal disorders or blood clotting/bleeding disorders. Social hx: She does not smoke, denies any drug use or significant alcohol consumption Medications: Tylenol, Percocet, Trulicity, Geodon, hydroxyzine, Humira, spironolactone, gabapentin, Celebrex, VESIcare, methocarbamol, Wellbutrin, amlodipine Allergies: None Physical exam: She is awake alert oriented, no acute distress, she has some mild strength loss in her hands but I am not sure if this is related to effort. The rest of her motor examination is normal. Positive straight leg raise at 30 degrees in the left side. Reflexes hyperreflexic on the left with a Lay sign on her left hand. Imaging review: Lumbar MRI done at [facility] shows multilevel degenerative disc disease, she has a diffuse degenerative disc at L3-4, at L4-5 there is a grade 1 spondylolisthesis. There is significant facet arthropathy at L4-5 as well as L3-4 on the left. There is a slight amount of facet arthropathy at L2-3 as well. I do not see any evidence of nerve compression. Impression: 42 year old female presents with 2 separate issues today. The 1st is that she has had low back pain going down to her left outer thigh and calf now for a few years. It sounds like lumbar radiculopathy coming from the L4-5 region, however her MRI imaging does not show any nerve compression. She does have evidence of a spondylolisthesis and facet arthropathy at this level so I would like split standing flexion-extension x-rays to evaluate for dynamic instability. At this time she is very scared of having any kind of back surgery and I do not think she is really interested in surgical intervention at this time. I told her she can carry on with foot ever conservative treatment she thinks is helpful and if she does come to the point of surgery we can discuss. As a secondary issue, she talked about her neck pain on the right side of the neck which will radiate down into her right arm and forearm at times. Her neck x-rays show degenerative disc disease at C5-6 with significant anterior osteophytes. She has possibly some hand weakness but does have hyperreflexia. The hyperreflexia can be a side effect of hers psychiatric medications, however because of the degenerative disc at C5-6 I would like to rule out spinal cord compression and will get a cervical MRI. Thank you for allowing us to care for your patient. The total time spent with this visit with this patient was 65 minutes reviewing history, physical exam, cervical x-ray and lumbar MRI imaging review, and implementation of treatment plan or further diagnostic testing Cj Hammond MD,PhD [facility] Orders: Orders XR lumbar spine 4V min Today M47.816 - Spondylosis without myelopathy or radiculopathy, lumbar region MR cervical spine wo con Today M54.2 - Cervicalgia Coding Level of Care Code New Pt Level 5 (93851) Diagnoses Lumbar facet arthropathy M47.816 Neck pain M54.2
== END 2023-02-08 15:01 | disposition home or self-care (01) ==
PROVIDERS: PCP Internal Medicine; Referring Provider Nurse Practitioner Family; Visit Provider Physician Assistant
DX: M47.816 Spondylosis without myelopathy or radiculopathy, lumbar region (principal); M54.2 Cervicalgia
CPT/HCPCS: 99205

== ENCOUNTER 2023-02-10 10:03 | Outpatient (AMB) | payer MEDICAID, SELFPAY ==
--- NOTE | 2023-02-10 10:30 | A.OFFVIS_ITS ---
Intake VS Expanded 02/10/23 10:39 BP 133/62 Blood Pressure Location Rt brachial Blood Pressure Position Sitting Pulse 76 Pulse Source Pulse Oximeter Temp 97.2 F Temperature Source Tympanic Pulse Oximetry 100 Oxygen Delivery Method Room Air Height 5 ft 3.5 in Weight 173 lb 6.4 oz BMI 30.2 Body Fat % 33.3 Body Fat Mass 57.8 Fat Free Mass 115.6 Visceral Fat Rating 6.0 Body Water % 47.6 Body Water Mass 82.4 Muscle Mass/Score 109.6 Basal Metabolic Rate/Score 1,571 Intake Visit Reasons: (OV) PO LSG 05/13/21 Allergies No Known Allergies Allergy (Verified 02/10/23 10:33) Medication List - Last Reconciled 02/10/23 by KAYLEIGH Lord acetaminophen 500 mg PO BID PRN adalimumab (Humira) 40 mg subcut QWEEK amlodipine 5 mg PO QAM betamethasone dipropionate 0.05% topical celecoxib 200 mg PO cetirizine 10 mg PO QAM chlorhexidine gluconate 4% (Hibiclens) topical DAILY cholecalciferol (vitamin D3) 25 mcg PO DAILY clotrimazole 1% 1 appl topical BID dulaglutide (Trulicity) 1.5 mg subcut QWEEK gabapentin 300 mg PO BEDTIME 30 days incontinence pad, liner, disp (Dry Comfort pads) As directed lidocaine 5% (Lidoderm) 1 patch topical DAILY PRN MDD remove after 12 hours lidocaine 5% topical methocarbamol 750 mg PO Q8H PRN 30 days ondansetron HCl 8 mg PO Q8H PRN oxycodone-acetaminophen 5-325 mg 1 tab PO Q6H PRN solifenacin (Vesicare) 10 mg PO BEDTIME spironolactone 100 mg PO BID valacyclovir 1 tab PO DAILY ziprasidone HCl 2 caps PO BEDTIME HPI HPI Comments History of Present Illness Details This?is a?42?yo female who is s/p LSG 05/13/2021. Presents for 20 month post op visit. Weight at last visit on 10/13/2022 was 194.2 pounds with a BMI of 33.9, weight today is 173.4 pounds, representing a 20.8 pound weight loss with a BMI today of 30.2.? No complaints of nausea, emesis, abdominal pain or reflux, or constipation. Present meal plan includes: eating fruits, drinking water thinks she is not getting enough protein in meal plan will have meats like steak with peppers All meals last 20 - 30 minutes and does not drink and eat at the same time. Exercise routine includes: none, has a lot of fatigue and chronic pain Pt reports problems of excess skin of abdomen, upper arms and upper legs. Pt reports rashes of excess skin of abdomen, painful and worse when weather is hot. Has tried a chafing deoderant stick which has not resolved the problem. Mo isture collects in skin fold and smells unpleasant so she has to wash multiple times a day. Has to wear compressive waistbands on her pants to hold excess skin in place. The excess skin is very heavy and worsens her back pain due to the weight of the skin in front of her body. Pt reports chafing and friction of excess skin of upper thighs. Chafing deoderant stick has not resolved these issues. Cannot wear shorts due to skin being on contact worsening the friction. Has tried shapewear to hold skin in place but this does not help as moisture will collect in the skin folds and fabric, and result in unpleasant odor. Movement and range of motion is limited due to the discomfort resulting from the excess skin, particularly considering her chronic pain and the weight of the excess skin. Pt now reports new issues of excess skin of upper arms. She has started to experience rashes and painful chafing where skin rubs against her torso. She has tried the prescription Rx cream given but this did not resolve the problem. Can only wear loose sleeves as tighter clothing irritates the skin. She finds walking to become more difficult because of the rubbing of the skin on her torso when her arms move. The heaviness of the excess skin causes worsening of her chronic pain. She recently found out she has worsening vertebrae problems in her neck and the weight of the excess skin of the arms has been pulling on this and causing increased discomfort. [facility] Medical History Intra-abdominal adhesions Depression Hidradenitis Abnormal EKG Bipolar 1 disorder Hx of borderline personality disorder ADHD Chronic post-traumatic stress disorder (PTSD) Pre-op evaluation Surgical History S/P laparoscopic sleeve gastrectomy Hx of esophagogastroduodenoscopy Gastric bypass status for obesity Family History Mother Obesity Diabetes mellitus Sister No problems noted. Son Leukemia Obesity Social History Are you a primary pediatric critical care nurse to a significant other at home: No Do you presently have visiting nurse or other home services: No Alcohol intake: never Patient Tobacco Use Status: Never used Tobacco Advance Directives Date on File: 05/15/21 service: No Current occupational status: unemployed Physical Exam Vital Signs: Last Vital Signs Temp 97.2 F 02/10/23 10:39 Pulse 76 02/10/23 10:39 BP 133/62 02/10/23 10:39 Pulse Ox 100 02/10/23 10:39 Oxygen Delivery Method Room Air 02/10/23 10:39 BMI result Body Mass Index 30.2 Assessment & Plan Assessment & Plan (1) Obesity: Code(s): E66.9 - Obesity, unspecified (2) S/P laparoscopic sleeve gastrectomy: Comment: 05/13/21 Code(s): Z98.84 - Bariatric surgery status (3) Excess skin: Code(s): L98.7 - Excessive and redundant skin and subcutaneous tissue Plan Pt is mostly interested in skin removal surgery for arms and abdomen at this time. Goal of weight loss of another 10lbs prior to submission to insurance. Pt needs more protein in her meal plan, we discussed again today. She was agreeable to two Isopure shakes per day, unflavored, 1 scoop each; 1 15g protein bar (recommended Celebrate brand as she likes strawberry flavor), and one meal of 4 forks protein, 4 forks salad/veg. Discussed the importance of getting adequate protein intake prior to another operation which requires good nutrition for optimal healing. RTC 3 months, discussed that pt may call office for sooner appt if she reaches her goal weight before then. Patient is obese and is not considered stable at this time. I spent a total of 30 minutes reviewing/updating records, examining the patient and counseling the patient on weight management as detailed above. Coding Level of Care Code Est Pt Level 4 (77925) Diagnoses Obesity E66.9 S/P laparoscopic sleeve gastrectomy Z98.84 Excess skin L98.7
[2023-02-10 10:39] VITALS: BP 133/62; PULSE 76; TEMP 36.2; O2SAT 100; BMI 30.2
== END 2023-02-10 11:08 | disposition home or self-care (01) ==
PROVIDERS: PCP Internal Medicine; Visit Provider Physician Assistant Surgical
DX: E66.9 Obesity, unspecified (principal); Z68.30 Body mass index [BMI] 30.0-30.9, adult; Z90.3 Acquired absence of stomach [part of]; Z98.84 Bariatric surgery status; L98.7 Excessive and redundant skin and subcutaneous tissue
CPT/HCPCS: 99214

== ENCOUNTER 2023-02-10 10:03 | Outpatient (REF) | payer MEDICAID, SELFPAY | END 2023-02-10 10:04 | disposition home or self-care (01) | LOC: HO.XRAY 10:03 | PROVIDERS: Absent Provider Physician Assistant; PCP Internal Medicine; Referring Provider Internal Medicine; Visit Provider Physician Assistant Surgical | DX: M25.551 Pain in right hip (principal); E66.9 Obesity, unspecified; L98.7 Excessive and redundant skin and subcutaneous tissue; Z98.84 Bariatric surgery status | CPT/HCPCS: 99212 ==

== ENCOUNTER 2023-02-11 11:33 | Outpatient (REF) | payer MEDICAID, SELFPAY ==
--- NOTE | ~2023-02-11 | XR_ITS ---
EXAMINATION: XR LUMBOSACRAL SPINE WITH OBLIQUES CLINICAL INFORMATION: Spondylosis without myelopathy or radiculopathy, lumbar region. COMPARISON: None available. TECHNIQUE: 6 views of the lumbar spine including AP, and lateral views as well as lateral view of the lumbosacral junction and flexion and extension views. FINDINGS: Mildly exaggerated lumbar lordosis. There is degenerative change present with marked disc space narrowing at L4-L5 and to a lesser extent at L1-L2. No bony destructive lesions, fractures or dislocations seen. There is grade 1 anterolisthesis with forward slippage of L4 upon L5. In extension, this is 8 mm and in flexion increases to 10 mm. This appears slightly increased when compared to the prior study from 07/12/2022 when this distance was 6 mm. Suture line and surgical clips present overlying the region of the stomach secondary to prior gastric surgery XR/XR lumbar spine 4V min IMPRESSION: Degenerative changes L4-L5 and L1-L2 with grade 1 anterolisthesis of L4 upon L5 which increases from extension to flexion and appears more prominent than in July of 2022.
--- NOTE | ~2023-02-11 | XR_ITS ---
EXAMINATION: XR HIP, RIGHT CLINICAL INFORMATION: Right hip pain COMPARISON: None available. TECHNIQUE: Two views of the right hip. FINDINGS: No fracture. Alignment is anatomic. Hip joint space is maintained. Soft tissues are unremarkable. XR/XR hip RT min 2V IMPRESSION: Normal right hip.
== END 2023-02-11 11:34 | disposition home or self-care (01) ==
LOC: HO.XRAY 11:33
PROVIDERS: PCP Internal Medicine; Visit Provider Physician Assistant
DX: M47.816 Spondylosis without myelopathy or radiculopathy, lumbar region (principal); M25.551 Pain in right hip
CPT/HCPCS: 72110; 73502

== ENCOUNTER 2023-03-30 10:45 | Outpatient (AMB) | payer MEDICAID, SELFPAY ==
--- NOTE | 2023-03-30 10:39 | MHC.OFFVISWM ---
Intake VS Expanded 03/30/23 10:45 Height 5 ft 3.5 in Weight 154 lb 7 oz BMI 26.9 Intake Visit Reasons: VIDEO PO LSG 05/13/21 Allergies No Known Allergies Allergy (Verified 02/10/23 10:33) Medication List - Last Reconciled 03/30/23 by KAYLEIGH Lord acetaminophen 500 mg PO TID PRN adalimumab (Humira) 40 mg subcut QWEEK amlodipine 5 mg PO QAM betamethasone dipropionate 0.05% topical celecoxib 200 mg PO cetirizine 10 mg PO QAM chlorhexidine gluconate 4% (Hibiclens) topical DAILY cholecalciferol (vitamin D3) 25 mcg PO DAILY clotrimazole 1% 1 appl topical BID dulaglutide (Trulicity) 1.5 mg subcut QWEEK gabapentin 300 mg PO BEDTIME 30 days incontinence pad, liner, disp (Dry Comfort pads) As directed lidocaine 5% (Lidoderm) 1 patch topical DAILY PRN MDD remove after 12 hours lidocaine 5% topical methocarbamol 750 mg PO Q8H PRN 30 days ondansetron HCl 8 mg PO Q8H PRN oxycodone-acetaminophen 5-325 mg 1 tab PO Q6H PRN solifenacin (Vesicare) 10 mg PO BEDTIME spironolactone 100 mg PO BID valacyclovir 1 tab PO DAILY ziprasidone HCl 2 caps PO BEDTIME HPI HPI Comments History of Present Illness Details This?is a?42?yo female who is s/p LSG 05/13/2021. Presents for 22 month post op visit. Weight at last visit on 02/10/2023 was 173.4 pounds with a BMI of 30.2, weight today is 154.7 pounds, representing an 18.7 pound weight loss with a BMI today of 26.9.? No complaints of nausea, emesis, abdominal pain or reflux, or constipation. Present meal plan includes: two Isopure shakes per day, unflavored, 1 scoop each; 1 15g protein bar (recommended Celebrate brand as she likes strawberry flavor), and one meal of 4 forks protein, 4 forks salad/veg Pt reports doing well on this meal plan (created at last visit), getting adequate protein. Pt reports ongoing problems of excess skin of abdomen, upper arms and upper legs. Pt reports rashes of excess skin of abdomen, painful and worse when weather is hot. Has tried a chafing deoderant stick which has not resolved the problem. More recently tried clotrimazole ointment and again this did not completely resolve the rashes. Moisture collects in skin fold and smells unpleasant so she has to wash multiple times a day. Has to wear compressive waistbands on her pants to hold excess skin in place. The excess skin is very heavy and worsens her back pain due to the weight of the skin in front of her body. Pt reports chafing and friction of excess skin of upper thighs. Chafing deodorant stick has not resolved these issues. Cannot wear shorts due to skin being on contact worsening the friction. Has tried shapewear to hold skin in place but this does not help as moisture will collect in the skin folds and fabric, and result in unpleasant odor. Movement and range of motion is limited due to the discomfort resulting from the excess skin, particularly considering her chronic pain and the weight of the excess skin. Pt reports new issues of excess skin of upper arms. She has started to experience rashes and painful chafing where skin rubs against her torso. She has tried the prescription Rx cream given but this did not resolve the problem. Can only wear loose sleeves as tighter clothing irritates the skin. She finds walking to become more difficult because of the rubbing of the skin on her torso when her arms move. The heaviness of the excess skin causes worsening of her chronic pain. She recently found out she has worsening vertebrae problems in her neck and the weight of the excess skin of the arms has been pulling on this and causing increased discomfort. [facility] Medical History Intra-abdominal adhesions Depression Hidradenitis Abnormal EKG Bipolar 1 disorder Hx of borderline personality disorder ADHD Chronic post-traumatic stress disorder (PTSD) Pre-op evaluation Surgical History S/P laparoscopic sleeve gastrectomy Hx of esophagogastroduodenoscopy Gastric bypass status for obesity Family History Mother Obesity Diabetes mellitus Sister No problems noted. Son Leukemia Obesity Social History Are you a primary manager care management to a significant other at home: No Do you presently have visiting nurse or other home services: No Alcohol intake: never Patient Tobacco Use Status: Never used Tobacco Advance Directives Date on File: 05/15/21 service: No Current occupational status: unemployed Assessment & Plan Assessment & Plan (1) Excess skin: Code(s): L98.7 - Excessive and redundant skin and subcutaneous tissue (2) S/P laparoscopic sleeve gastrectomy: Comment: 05/13/21 Code(s): Z98.84 - Bariatric surgery status (3) Overweight: Code(s): E66.3 - Overweight Plan At this time pt is primarily interested in excess skin removal of arms/abdomen. Regarding abdomen, pt has been experiencing ongoing painful and malodorous rashes refractory to the use of topical Rx treatment. She is also experiencing ongoing pain and limitation of physical function due to the discomfort caused by the heaviness of the skin, and is experiencing worsening of her chronic pain. She would benefit from definitive treatment of panniculectomy. Regarding upper arms, pt has been experiencing ongoing chafing and painful rashes refractory to the use of topical Rx treatment. She is also experiencing ongoing pain and limitation of physical function due to the discomfort caused by the heaviness of the skin, including limitations of activities of daily living such as walking, and is experiencing worsening of her chronic pain. She would benefit from definitive treatment of brachioplasty. Pt to come into office for an updated physical exam, photos, and weight check. Will then submit to insurance for authorization. Patient is overweight and with ongoing issues of excess skin, and is not considered stable at this time. I spent a total of 30 minutes reviewing/updating records, examining the patient and counseling the patient on weight management as detailed above. Telehealth Telehealth Location of provider rendering services: practice address Location of patient: address on file Patient Identification confirmed using: Name, : Yes Telehealth method: voice only Patient verbally consented to treatment: Yes Patient verbally consented to billing insurance company: Yes Patient informed of any privacy concerns related to visit: Yes Minutes spent on Phone/Video with Pt.: 18 Coding Level of Care Code Tele Est Pt Level 4 (68643) Diagnoses Excess skin L98.7 S/P laparoscopic sleeve gastrectomy Z98.84 Overweight E66.3
[2023-03-30 10:45] VITALS: BMI 26.9
== END 2023-03-30 10:57 | disposition home or self-care (01) ==
LOC: HO.HBS 10:45
PROVIDERS: PCP Internal Medicine; Visit Provider Physician Assistant Surgical
DX: L98.7 Excessive and redundant skin and subcutaneous tissue (principal); Z98.84 Bariatric surgery status; E66.3 Overweight
CPT/HCPCS: 99214

== ENCOUNTER → 2023-03-30 10:45 | Outpatient (BNVA) | payer MEDICAID, SELFPAY | PROVIDERS: PCP Internal Medicine; Visit Provider Physician Assistant Surgical ==

== ENCOUNTER → 2023-03-31 10:41 | Outpatient (BNVA) | payer MEDICAID, SELFPAY | PROVIDERS: PCP Internal Medicine; Visit Provider Physician Assistant Surgical ==

== ENCOUNTER 2023-04-01 08:29 | Outpatient (REF) | payer MEDICAID, SELFPAY ==
--- NOTE | ~2023-04-01 | MR_ITS ---
EXAMINATION: MR CERVICAL SPINE WITHOUT CONTRAST CLINICAL INFORMATION: Cervicalgia COMPARISON: Cervical radiographs 01/18/2023 TECHNIQUE: MRI of the cervical spine was obtained using routine sequences without contrast. FINDINGS: Straightening of the normal cervical lordosis with shallow dextrocurvature of the cervical spine. Cervical vertebral body heights are maintained. No significant spondylolisthesis. Degenerative endplate changes with fatty marrow signal at C5-C6. The cervical spinal cord is normal in signal. C2-C3: No significant spinal canal or neural foraminal stenosis. C3-C4: A central disc protrusion indents the ventral thecal sac without significant spinal canal or neural foraminal stenosis. C4-C5: Trace central disc protrusion indents the ventral thecal sac without significant spinal canal or neural foraminal stenosis. C5-C6: Disc osteophyte complex indents the ventral thecal sac with mild canal stenosis. There is uncovertebral spurring with minimal impingement of the neural foramen. C6-C7: Small central disc protrusion indents the ventral thecal sac without significant spinal canal or neural foraminal stenosis. C7-T1: No significant spinal canal or neural foraminal stenosis. MR/MR cervical spine wo con IMPRESSION: Straightening of the normal cervical lordosis with mild multilevel degenerative changes as described above. This is most prominent at C5-C6 where there is mild spinal canal stenosis and minimal impingement of the neural foramen.
== END 2023-04-01 08:30 | disposition home or self-care (01) ==
LOC: HO.MRI 08:29
PROVIDERS: PCP Internal Medicine; Visit Provider Physician Assistant
DX: M54.2 Cervicalgia (principal)
CPT/HCPCS: 72141

== ENCOUNTER 2023-04-11 11:17 | Outpatient (AMB) | payer MEDICAID, SELFPAY ==
--- NOTE | 2023-04-11 11:18 | A.OFFVIS_ITS ---
Intake Intake Visit Reasons: 3m/US not completed Intake Note: Patient presents today for a follow-up for Urge Urinary Incontinence: Patient No show to US appt. JOHN Meds- Vesicare Allergies to Antibiotic- No Known Allergies Blood Thinner- None Post Void Residual: 17 mL Line Walker Required: No Accompanied by: Self / Same As Patient Allergies No Known Allergies Allergy (Verified 05/13/23 14:07) Medication List - Last Reconciled 04/11/23 by Luis Manuel Singh MD acetaminophen 500 mg PO TID PRN adalimumab (Humira) 40 mg subcut QWEEK amlodipine 5 mg PO QAM betamethasone dipropionate 0.05% topical celecoxib 200 mg PO cetirizine 10 mg PO QAM chlorhexidine gluconate 4% (Hibiclens) topical DAILY cholecalciferol (vitamin D3) 25 mcg PO DAILY clotrimazole 1% 1 appl topical BID dulaglutide (Trulicity) 1.5 mg subcut QWEEK gabapentin 300 mg PO BEDTIME 30 days incontinence pad, liner, disp (Dry Comfort pads) As directed lidocaine 5% (Lidoderm) 1 patch topical DAILY PRN MDD remove after 12 hours lidocaine 5% topical methocarbamol 750 mg PO Q8H PRN 30 days ondansetron HCl 8 mg PO Q8H PRN oxycodone-acetaminophen 5-325 mg 1 tab PO Q6H PRN pantoprazole 20 mg PO BID solifenacin (Vesicare) 10 mg PO BEDTIME spironolactone 100 mg PO BID valacyclovir 1 tab PO DAILY ziprasidone HCl 2 caps PO BEDTIME HPI HPI Comments History of Present Illness Details Peri is a 42-year-old female who presents today to the office for follow up. 04/11/23--Peri is a 42-year-old female who was initially evaluated 01/07/2023 for mixed urinary incontinence. She was started on VESIcare 10 mg daily. She states the medication has been helping. She did not show up for her renal ultrasound that was ordered. Urinalysis-microscopic hematuria. Plan discussed-will reschedule renal ultrasound, continue VESIcare. Consider office cystoscopy on follow-up. Review of chart: 01/07/2023? She presents today for an evaluation of urge urinary incontinence. She has a past medical history of status post gastric bypass in 2011 at [facility], status post gastric sleeve in 05/13/2021, and history of chronic PTSD, bipolar 1, and depression. She also has a history of chronic lower back pain, fibromyalgia, and arthritis. She states that she has had frequency of urination specifically at night time. She is up 4-6 times to urinate and sometimes she leaks before getting into the bathroom. Patient is taking medication to help her sleep at 8 PM. She also takes Spironolactone 200 mg each morning. FH-her son was diagnosed with leukemia at the age 3 and currently, he is doing well. She states that she has occasional burning with urination that may last about a week and goes away on its own. She drinks only water approximately 60 ounces. She adds lemon juice to the water. Patient states that she does drink soda or coffee. She has been taking Trulicity for weight loss. She was prescribed oxybutynin daily by her PCP which she states did not help her urinary symptoms. She denies any history of cigarette smoking. I reviewed the urine culture results from 11/02/2022 which came back 10,000 to 50,000 cfu/ml mixed bacterial aren characteristic of urogenital contamination. Evaluation today?UA?leukocytes: negative; blood: negative. Plan Trial anticholinergic -Vesicare 10 mg daily, renal US ordered. 04/11/23--Plan: retroperitoneum US. Cont Vesicare 10 mg at bed time. Follow-up in 6-8weeks for cysto PFSH Medical History Intra-abdominal adhesions Depression Hidradenitis Abnormal EKG Bipolar 1 disorder Hx of borderline personality disorder ADHD Chronic post-traumatic stress disorder (PTSD) Pre-op evaluation Surgical History S/P laparoscopic sleeve gastrectomy Hx of esophagogastroduodenoscopy Gastric bypass status for obesity Family History Mother Obesity Diabetes mellitus Sister No problems noted. Son Leukemia Obesity Social History Are you a primary long term care pharmacist to a significant other at home: No Do you presently have visiting nurse or other home services: No Alcohol intake: never Patient Tobacco Use Status: Never used Tobacco Advance Directives Date on File: 05/15/21 service: No Current occupational status: unemployed Review of Systems Const All systems reviewed & are unremarkable except as noted in HPI and below Reports no additional complaints Eyes Reports no additional complaints ENT Reports no additional complaints Card Denies dyspnea Resp Denies cough and Denies dyspnea GI Reports no additional complaints Reports no additional complaints Musc Reports no additional complaints Skin/Breast Denies rash and Denies unusual bruising Neuro Reports no additional complaints Psych Reports no additional complaints Endo Reports no additional complaints Rashard/Lymph Reports no additional complaints Aller/Immun Reports no additional complaints Office Procedures Post Void Residual Post Residual Void Post Void Residual (PVR): 17 [id number] Void Residual by ultrasound Results AMB Urinalysis, Automated UA Leukoctes 0 Sera/uL Last Edit by JAMAL Gonzalez on 04/11/23 11:40 UA Nitrite Negative Last Edit by JAMAL Gonzalez on 04/11/23 11:40 UA Urobilinogen 0.2 mg/dL Last Edit by JAMAL Gonzalez on 04/11/23 11:4 0 UA Protein 15 mg/dL Last Edit by JAMAL Gonzalez on 04/11/23 11:40 UA pH 6.0 Last Edit by JAMAL Gonzalez on 04/11/23 11:40 UA Blood 25 Shukri/uL Last Edit by JAMAL Gonzalez on 04/11/23 11:40 UA Specific [place] 1.025 Last Edit by JAMAL Gonzalez on 04/11/23 11: 40 UA Ketone Negative Last Edit by JAMAL Gonzalez on 04/11/23 11:40 UA Bilirubin 0 mg/dL Last Edit by JAMAL Gonzalez on 04/11/23 11:40 UA Glucose 0 mg/dL Last Edit by JAMAL Gonzalez on 04/11/23 11:40 Results Reviewed Results Reviewed: Laboratory Last Values Urine pH (Auto) 6.0 04/11/23 11:24 Specific [place] (Auto) 1.025 04/11/23 11:24 Urine Protein (Auto) 15 mg/dL 04/11/23 11:24 Glucose (UA)(Auto) 0 mg/dL 04/11/23 11:24 Urine Ketones (Auto) Negative 04/11/23 11:24 Urine Blood (Auto) 25 Shukri/uL 04/11/23 11:24 Urine Nitrite (Auto) Negative 04/11/23 11:24 Urine Bilirubin (Auto) 0 mg/dL 04/11/23 11:24 Urine Urobilinogen (Auto) 0.2 mg/dL 04/11/23 11:24 Leukocyte Esterase (Auto) 0 Sera/uL 04/11/23 11:24 Assessment & Plan Assessment & Plan (1) Urge incontinence of urine: Code(s): N39.41 - Urge incontinence (2) Nocturia: Code(s): R35.1 - Nocturia (3) Microscopic hematuria: Code(s): R31.29 - Other microscopic hematuria Plan retroperitoneum US. Cont Vesicare 10 mg at bed time. Follow-up in 6-8weeks for cysto Orders: Orders AMB Urinalysis Automated 04/11/23 Z13.9 - Encounter for screening, unspecified AMB Post Void Residual by ultrasound 04/11/23 N39.8 - Other specified disorders of urinary system US retroperitoneal comp 04/11/23 N39.41 - Urge incontinence, R35.1 - Nocturia Medications: Refilled solifenacin (Vesicare) 10 mg PO BEDTIME 90 tabs 3RF Patient Instructions: The patient had an opportunity to ask questions regarding treatment plan. All questions were answered. Laboratory studies and physical exam results were discussed and reviewed in detail. No major barriers to understanding were identified. The patient expressed understanding and agreement with the above treatment plan. The patient is aware they should contact our office by phone for worsening of their current condition or the appearance of new symptoms. Compliance is encouraged with any medications and followup testing that is ordered. It is a privilege to be allowed the opportunity to participate in the urologic care of your patient. If you have any questions or concerns regarding treatment for the above conditions please do not hesitate to contact me. The office telephone contact is [phone]. This note is constructed in part using voice recognition software. While every effort has been made to ensure accuracy snuff blender errors may have been included. Yours sincerely, Luis Manuel Singh MD Coding Level of Care Code Est Pt Level 4 (52530) Diagnoses Urge incontinence of urine N39.41 Nocturia R35.1 Microscopic hematuria R31.29 CPT Codes Post Residual Void - PVR CPT Code: [id number] Void Residual by ultrasound ([id number])
== END 2023-04-11 12:16 | disposition home or self-care (01) ==
PROVIDERS: PCP Internal Medicine; Visit Provider Urology
DX: N39.41 Urge incontinence (principal); R35.1 Nocturia; R31.29 Other microscopic hematuria
CPT/HCPCS: 99214

== ENCOUNTER → 2023-04-11 11:17 | Outpatient (BNVA) | payer MEDICAID, SELFPAY | PROVIDERS: PCP Internal Medicine; Visit Provider Urology | DX: N39.41 Urge incontinence (principal); R35.1 Nocturia; R31.29 Other microscopic hematuria | CPT/HCPCS: 51798; 81003; 99212 ==

== ENCOUNTER 2023-05-02 17:13 | Emergency (ER) | payer MEDICAID, SELFPAY ==
--- NOTE | 2023-05-02 18:24 | ED_ITS ---
HPI - Extremity Injury (Lower) General Chief Complaint: General Medical Stated Complaint: inner thigh pain Time Seen by Provider: 05/02/23 19:48 Source: patient Mode of arrival: ambulatory Limitations: no limitations History of Present Illness HPI Narrative: Patient is a 42-year-old female who presents to the emergency department for evaluation of chronic right hip pain radiating down to the right lower extremity down to her foot and into her groin. Reports that this has been increasing over the past month. She reports the pain is too severe when she is bending forward to tie her shoes. She is requesting an MRI at this time. She states ?I could call my doctor tomorrow and get an MRI but I want 1 here today?. She denies any precipitating injury, fevers, chills, genitourinary symptoms, bladder bowel dy sfunction, inability to bear weight or ambulate. Related Data Home Medications Medication Instructions Recorded Confirmed spironolactone 100 mg tablet 100 mg PO BID 01/28/21 04/11/23 valacyclovir 500 mg tablet 1 tab PO DAILY 05/08/21 04/11/23 ziprasidone HCl 80 mg capsule 2 cap PO BEDTIME 05/08/21 04/11/23 amlodipine 5 mg tablet 5 mg PO QAM 07/23/22 04/11/23 lidocaine 5 % topical ointment topical mild pain 07/23/22 04/11/23 celecoxib 200 mg capsule 200 mg PO moderate pain 07/29/22 04/11/23 betamethasone dipropionate 0.05 % topical 08/19/22 04/11/23 topical ointment cetirizine 10 mg tablet 10 mg PO QAM 08/19/22 04/11/23 adalimumab 40 mg/0.8 mL 40 mg subcut QWEEK 12/02/22 04/11/23 subcutaneous syringe kit (Humira) dulaglutide 1.5 mg/0.5 mL 1.5 mg subcut QWEEK 12/02/22 04/11/23 subcutaneous pen injector (Trulicity) ondansetron HCl 4 mg tablet 8 mg PO Q8H PRN nausea/vomiting 12/02/22 04/11/23 chlorhexidine gluconate 4 % topical DAILY 12/09/22 04/11/23 topical liquid (Hibiclens) oxycodone-acetaminophen 5 mg-325 1 tab PO Q6H PRN severe pain 12/09/22 04/11/23 mg tablet Previous Rx's Medication Instructions Recorded lidocaine 5 % topical patch 1 patch topical DAILY PRN pain #30 07/12/22 (Lidoderm) ea cholecalciferol (vitamin D3) 25 25 mcg PO DAILY #90 caps 08/30/22 mcg (1,000 unit) capsule incontinence pad, liner, disp (Dry #144 ea 01/17/23 Comfort pads) methocarbamol 750 mg tablet 750 mg PO Q8H PRN muscle 01/17/23 spasticity 30 days #90 tabs acetaminophen 500 mg tablet 500 mg PO TID PRN for pain #90 tabs 03/17/23 gabapentin 300 mg capsule 300 mg PO BEDTIME pain 30 days #30 03/28/23 caps clotrimazole 1 % topical cream 1 appl topical BID #45 grams 03/30/23 pantoprazole 20 mg tablet,delayed 20 mg PO BID #90 tabs 03/31/23 release solifenacin 10 mg tablet (Vesicare) 10 mg PO BEDTIME #90 tabs 04/11/23 Allergies Allergy/AdvReac Type Severity Reaction Status Date / Time No Known Allergies Allergy Verified 04/11/23 11:20 Review of Systems Review of Systems: Yes all other systems are reviewed and are negative PMFSH Past Medical History Attestation statement: The following information was validated with the patient. Source: old records reviewed Medical History Intra-abdominal adhesions Depression Hidradenitis Abnormal EKG Bipolar 1 disorder Hx of borderline personality disorder ADHD Chronic post-traumatic stress disorder (PTSD) Pre-op evaluation Surgical History S/P laparoscopic sleeve gastrectomy Hx of esophagogastroduodenoscopy Gastric bypass status for obesity Family History Family History Mother Obesity Diabetes mellitus Sister No problems noted. Son Leukemia Obesity Social History Social History Are you a primary healthcare advisory services manager to a significant other at home: No Do you presently have visiting nurse or other home services: No Alcohol intake: never Patient Tobacco Use Status: Never used Tobacco Advance Directives: Yes Advance Directives on File: Yes Advance Directives Date on File: 05/15/21 service: No Current occupational status: unemployed Physical Exam Vital Signs: Vital Signs: Last Vital Signs Temp 98.5 F 05/02/23 18:25 Pulse 105 H 05/02/23 18:25 Resp 18 05/02/23 18:25 BP 157/74 H 05/02/23 18:25 Pulse Ox 98 05/02/23 18:25 O2 Del Method Room Air 05/02/23 18:25 BMI result Body Mass Index 29.2 Appearance: Alert.?Oriented to person, place and time. No acute distress.?Normal affect. Eyes: Pupils equal, round and reactive to light.? ENT: Pharynx normal.?? Neck: Normal inspection.? Neck supple.?? CVS: Heart sounds normal. Normal heart rate and rhythm.? Pulses normal.?? Respiratory: No respiratory distress.? Lung sounds clear to auscultation bilaterally?? Abdomen: Soft and non-tender. Normoactive bowel sounds. No CVA tenderness? Back: No midline lumbar spine tenderness, step-offs, deformities. Skin: Skin warm and dry.? Normal skin color.? Extremities: No lower extremity edema.? No calf ttp? Neuro: Moves all extremities spontaneously. Sensation intact bilaterally. No focal neuro deficits. Ambulates with normal steady gait. Course Course Course Narrative: RME: 42 year-old F w/ PMHx depression, bipolar, hidradenitis, ADHD, PTSD, Fibromyalgia, LGS '22 presenting to the ED c/o intermittent right hip pain radiating to RLE and groin x 1 mos. States she is unable to bend over. States she had an MRI of her hip in the summer & is here for another MRI Ambulating w/steady gait Unable to see MRI in system Full HPI, ROS and PE to be performed by primary ED provider. Medical Decision Making Medical Decision Making MDM Narrative: Patient is a 42-year-old female PMHx depression, bipolar, hidradenitis, ADHD, PTSD, Fibromyalgia, LGS '22 presenting for acute on chronic right hip pain over the past month without any recent precipitating injury. Upon review she had an unremarkable x-ray of the hip in February of 2023, when reviewing her pain management note from October of 2022 it does appear as though she had an MRI dated 4 06/03/2022 (though this is not in our medical record system I anticipate that she had this elsewhere), which reveals anterolisthesis and facet arthropa thy as per impression provided below, pain management did not feel as though she was a candidate for any further interventional treatments and recommended CBT/continued management with Percocet t.i.d. and gabapentin 300 mg at bedtime. Upon examination she has near full range of motion to the right hip, no obvious deformity. She is ambulatory with steady gait. Has no reported bladder bowel dysfunction, she declines any examination of rectal tone. Has no midline lumbar spine tenderness, step-offs, deformities. She states that she wants an MRI here today and that is the only reason that she came here, she states ?I do not want any pain medication?. I do not see any indication for emergent MRI of the hip and patient was made aware of this, she did become upset and stated ?I do not need to see you anymore? and then walked out of the room. She was deemed stable for discharge, and I recommended that she follow-up further outpatient with her primary care provider/pain management. Differential Diagnosis Differential Diagnoses: The differential diagnosis associated with the presentation includes (Arthritis, lumbar radiculopathy, muscular strain) Admission/Observation Consideration of admission/observation: Escalation of care including admission/observation considered (See narrative above) Independent Historian Clinical information obtained from an independent historian. History obtained from or confirmed by: Spouse (Present who confirms history) External Record Review External record reviewed: Outpatient record (As per narrative above) and Prior outpatient radiology IMPRESSION: 1. There is a grade 1 anterolisthesis of L4 on L5 secondary to facet arthropathy. There may be a small synovial cyst developing anteromedially on the left. There are bilateral foraminal disc protrusions without definite exiting nerve root impingement. There is no significant central stenosis. 2. At L3-L4 there is moderate facet arthropathy. There is a broad-based posterior disc protrusion extending far laterally with impingement on the exiting and extraforaminal L3 nerve roots, more severely on the left. There is mild central stenosis. 3. At L2-L3 there is a small right foraminal disc protrusion with an annular fissure and there may be impingement on the exiting right L2 nerve root. There is no central stenosis. 4. At L5-S1 there is markedly severe right and severe left facet arthropathy. There is no central stenosis or foraminal nerve root impingement. Tests considered The following testing was considered but not selected: See narrative above Prescription Management I considered prescription management with: Pain Medication (Acetaminophen/ibuprofen, continued outpatient management) Discharge Plan Discharge Clinical Impression: Acute hip pain Patient Disposition: Home, Self-Care Instructions: Hip Pain (ED) Additional Instructions: Continue taking your medications as prescribed. Follow-up with your primary care provider. Prescriptions: No Action cholecalciferol (vitamin D3) 25 mcg (1,000 unit) capsule 25 mcg PO DAILY Qty: 90 3RF (DME) Dry Comfort Pad See Rx Instructions .Route Qty: 144 0RF Rx Instructions: As directed methocarbamol 750 mg tablet 750 mg PO Q8H PRN (Reason: muscle spasticity) 30 Days Qty: 90 3RF acetaminophen 500 mg tablet 500 mg PO TID PRN (Reason: for pain) Qty: 90 3RF gabapentin 300 mg capsule 300 mg PO BEDTIME 30 Days Qty: 30 3RF clotrimazole 1 % cream 1 appl topical BID Qty: 45 3RF ziprasidone HCl 80 mg capsule 2 cap PO BEDTIME valacyclovir 500 mg tablet 1 tab PO DAILY lidocaine [Lidoderm] 5 % adhesive patch,medicated 1 patch topical DAILY MDD remove after 12 hours PRN (Reason: pain) Qty: 30 0RF Rx Instructions: leave on most painful area for up to 12 hrs spironolactone 100 mg tablet 100 mg PO BID Hold Instructions: Discuss restart with Dr Faulkner celecoxib 200 mg capsule 200 mg PO chlorhexidine gluconate [Hibiclens] 4 % liquid topical DAILY oxycodone-acetaminophen 5-325 mg tablet 1 tab PO Q6H PRN (Reason: severe pain) lidocaine 5 % ointment topical amlodipine 5 mg tablet 5 mg PO QAM cetirizine 10 mg tablet 10 mg PO QAM betamethasone dipropionate 0.05 % ointment topical Trulicity 1.5 mg/0.5 mL pen injector 1.5 mg subcut QWEEK ondansetron HCl 4 mg tablet 8 mg PO Q8H PRN (Reason: nausea/vomiting) Humira 40 mg/0.8 mL syringe kit 40 mg subcut QWEEK solifenacin [Vesicare] 10 mg tablet 10 mg PO BEDTIME Qty: 90 3RF pantoprazole 20 mg tablet,delayed release (DR/EC) 20 mg PO BID Qty: 90 3RF Referrals: Carlo Santana MD [Primary Care Provider] -
[2023-05-02 18:25] VITALS: BP 157/74; PULSE 105; RESP 18; TEMP 36.9; O2SAT 98; BMI 29.2
--- NOTE | 2023-05-02 20:36 | PC.NURSE ---
ed provider to bedside. pt states provider cannot help pt. pt left prior to discharge paperwork
== END 2023-05-02 21:26 | disposition home or self-care (01) ==
PROVIDERS: Emergency Provider Student in an Organized Health Care Education/Training Program; PCP Internal Medicine
DX: M25.551 Pain in right hip (principal)
CPT/HCPCS: 99282

== ENCOUNTER 2023-05-06 | Outpatient (REF) | payer MEDICAID, SELFPAY | END 2023-05-06 00:01 | disposition home or self-care (01) | LOC: CF | PROVIDERS: PCP Internal Medicine; Visit Provider Physician Assistant | DX: N39.41 Urge incontinence (principal); R35.1 Nocturia | CPT/HCPCS: 99212 ==

== ENCOUNTER 2023-05-06 10:23 | Outpatient (AMB) | payer MEDICAID, SELFPAY ==
--- NOTE | 2023-05-06 10:38 | A.SPINEOV_ITS ---
Intake Intake Visit Reasons: f/up after ER Intake Note: Ms. Sandy is here today c/o right side joint, groin and leg throbbing pain. No new imaging done. [employer] Required: No Allergies No Known Allergies Allergy (Verified 04/11/23 11:20) Assessment & Plan Assessment & Plan (1) Lumbar radiculopathy: Code(s): M54.16 - Radiculopathy, lumbar region Plan Peri is a pleasant 42-year-old female who comes in today as a follow-up for evaluation of 2-3 weeks of severe low back pain with radiculopathy into her right lower extremity. When describing her radiculopathy she runs her hand over posterior buttocks across her anterior thigh over her anterior knee in terminates it at the anterior ankle. She reports no known inciting incident, but reports over the course of the last few weeks her pain has significantly intensified and turned into a unbearable shooting pain. She also reports hypersensitivity to touch, and states that she can not touch her low back or her right leg without experiencing pain. She reports that in the past she has gone to physical therapy, attempted at home exercise regimens, done regular stretching routines, and used a plethora of [id number] remedies without significant relief of her pain. She is currently taking Percocet which she reports provides only modest relief of her pain. She is here today to inquire about why her pain has significantly intensified. On exam the patient has 5/5 strength of her lower extremities. She has hypersensitivity to touch over her lumbar spine and right lower extremity. The rest of her sensation is grossly intact. Her reflexes are 2+ intact. She is able to ambulate well with the assistance of a cane, and rises from a seated position without much difficulty. (-) Diaz's, (-) clonus, (+) right-sided straight leg raise, (-) left-sided straight leg raise. Peri is a pleasant 42-year-old female who comes in today as a follow-up with severe low back pain and shooting pains into her right lower extremity. She reports this is significantly worse than when she was last seen here. She reports no inciting incident and states this happened idiopathically. When describing her pain seems as though it is in a right-sided L4 distribution, however she has no increased weakness with dorsiflexion or knee extension, and her patellar reflex on the right remains intact. I would like to order her a MRI of the lumbar spine to evaluate for any acute nerve root impingement given her disclosed severity of symptoms and her positive straight leg raise on exam. Total amount of time spent in this visit was 20 minutes in discussion of symptoms, MRI imaging results and subsequent plan of care Karl Hammond MD,PhD [facility] Orders: Orders MR lumbar spine wo con Today M54.16 - Radiculopathy, lumbar region Coding Level of Care Code Est Pt Level 3 (46293) Diagnoses Lumbar radiculopathy M54.16
== END 2023-05-06 11:10 | disposition home or self-care (01) ==
PROVIDERS: PCP Internal Medicine; Visit Provider Physician Assistant
DX: M54.16 Radiculopathy, lumbar region (principal)
CPT/HCPCS: 99213

== ENCOUNTER 2023-05-10 11:14 | Outpatient (AMB) | payer MEDICAID, SELFPAY ==
--- NOTE | 2023-05-10 11:17 | A.OFFVIS_ITS ---
Intake VS Expanded 05/10/23 11:25 BP 122/59 L Blood Pressure Location Rt brachial Blood Pressure Position Sitting Pulse 73 Pulse Source Pulse Oximeter Temp 96.8 F Temperature Source Tympanic Pulse Oximetry 100 Oxygen Delivery Method Room Air Height 5 ft 3.5 in Weight 159 lb 6.4 oz BMI 27.8 Body Fat % 31.7 Body Fat Mass 50.4 Fat Free Mass 109.0 Visceral Fat Rating 6.0 Body Water % 48.8 Body Water Mass 77.8 Muscle Mass/Score 103.4 Basal Metabolic Rate/Score 1,478 Intake Visit Reasons: (OV) PO LSG 05/13/21 Allergies No Known Allergies Allergy (Verified 04/11/23 11:20) Medication List - Last Reconciled 05/10/23 by KAYLEIGH Lord acetaminophen 500 mg PO TID PRN adalimumab (Humira) 40 mg subcut QWEEK amlodipine 5 mg PO QAM betamethasone dipropionate 0.05% topical celecoxib 200 mg PO cetirizine 10 mg PO QAM chlorhexidine gluconate 4% (Hibiclens) topical DAILY cholecalciferol (vitamin D3) 25 mcg PO DAILY clotrimazole 1% 1 appl topical BID dulaglutide (Trulicity) 1.5 mg subcut QWEEK gabapentin 300 mg PO BEDTIME 30 days incontinence pad, liner, disp (Dry Comfort pads) As directed lidocaine 5% (Lidoderm) 1 patch topical DAILY PRN MDD remove after 12 hours lidocaine 5% topical methocarbamol 750 mg PO Q8H PRN ondansetron HCl 8 mg PO Q8H PRN oxycodone-acetaminophen 5-325 mg 1 tab PO Q6H PRN pantoprazole 20 mg PO BID solifenacin (Vesicare) 10 mg PO BEDTIME spironolactone 100 mg PO BID valacyclovir 1 tab PO DAILY ziprasidone HCl 2 caps PO BEDTIME HPI HPI Comments History of Present Illness Details This?is a?42?yo female who is s/p LSG 05/13/2021. Seen in followup for ongoing issues of excess skin. Weight change of -2.4lbs since last visit on 03/30/2023. Present meal plan includes: two Isopure shakes per day, unflavored, 1 scoop each; 1 15g protein bar (recommended Cele[employer] brand as she likes strawberry flavor), and one meal of 4 forks protein, 4 forks salad/veg Pt reports doing well on this meal plan, getting adequate protein. Pt reports ongoing problems of excess skin of abdomen, upper arms and upper legs. Pt reports rashes of excess skin of abdomen, painful and worse when weather is hot. Has tried a chafing deoderant stick which has not resolved the problem. More recently tried clotrimazole ointment and again this did not completely resolve the rashes. Moisture collects in skin fold and smells unpleasant so she has to wash multiple times a day. Has to wear compressive waistbands on her pants to hold excess skin in place. The excess skin is very heavy and worsens her back pain due to the weight of the skin in front of her body. Pt reports chafing and friction of excess skin of upper thighs. Chafing deodorant stick has not resolved these issues. Cannot wear shorts due to skin being on contact worsening the friction. Has tried shapewear to hold skin in place but this does not help as moisture will collect in the skin folds and fabric, and result in unpleasant odor. Movement and range of motion is limited due to the discomfort resulting from the excess skin, particularly considering her chronic pain and the weight of the excess skin. Pt reports issues of excess skin of upper arms. She has started to experience rashes and painful chafing where skin rubs against her torso. She has tried the prescription Rx cream given but this did not resolve the problem. Can only wear loose sleeves as tighter clothing irritates the skin. She finds walking to become more difficult because of the rubbing of the skin on her torso when her arms move. The heaviness of the excess skin causes worsening of her chronic pain. She recently found out she has worsening vertebrae problems in her neck and the weight of the excess skin of the arms has been pulling on this and causing increased discomfort. [facility] Medical History Intra-abdominal adhesions Depression Hidradenitis Abnormal EKG Bipolar 1 disorder Hx of borderline personality disorder ADHD Chronic post-traumatic stress disorder (PTSD) Pre-op evaluation Surgical History S/P laparoscopic sleeve gastrectomy Hx of esophagogastroduodenoscopy Gastric bypass status for obesity Family History Mother Obesity Diabetes mellitus Sister No problems noted. Son Leukemia Obesity Social History Are you a primary client care specialist to a significant other at home: No Do you presently have visiting nurse or other home services: No Alcohol intake: never Patient Tobacco Use Status: Never used Tobacco Advance Directives Date on File: 05/15/21 service: No Current occupational status: unemployed Physical Exam Vital Signs: Last Vital Signs Temp 96.8 F 05/10/23 11:25 Pulse 73 05/10/23 11:25 BP 122/59 L 05/10/23 11:25 Pulse Ox 100 05/10/23 11:25 Oxygen Delivery Method Room Air 05/10/23 11:25 BMI result Body Mass Index 27.8 Assessment & Plan Assessment & Plan (1) Overweight: Code(s): E66.3 - Overweight (2) Excess skin: Code(s): L98.7 - Excessive and redundant skin and subcutaneous tissue (3) S/P laparoscopic sleeve gastrectomy: Comment: 05/13/21 Code(s): Z98.84 - Bariatric surgery status Plan Pt is interested in pursuing arms and abdomen skin removal first. Regarding abdomen, pt has been experiencing ongoing painful and malodorous rashes refractory to the use of topical Rx treatment. She is also experiencing ongoing pain and limitation of physical function due to the discomfort caused by the heaviness of the skin, and is experiencing worsening of her chronic pain. She would benefit from definitive treatment of panniculectomy. Regarding upper arms, pt has been experiencing ongoing chafing and painful rashes refractory to the use of topical Rx treatment. She is also experiencing ongoing pain and limitation of physical function due to the discomfort caused by the heaviness of the skin, including limitations of activities of daily living such as walking, and is experiencing worsening of her chronic pain. She would benefit from definitive treatment of brachioplasty. RTC 1 month to monitor stability of weight. Patient is overweight and with ongoing issues of excess skin, and is not considered stable at this time. I spent a total of 30 minutes reviewing/updating records, examining the patient and counseling the patient on weight management as detailed above. Coding Level of Care Code Est Pt Level 4 (20791) Diagnoses Overweight E66.3 Excess skin L98.7 S/P laparoscopic sleeve gastrectomy Z98.84
[2023-05-10 11:25] VITALS: BP 122/59; PULSE 73; TEMP 36; O2SAT 100; BMI 27.8
== END 2023-05-10 11:54 | disposition home or self-care (01) ==
PROVIDERS: PCP Internal Medicine; Visit Provider Physician Assistant Surgical
DX: E66.3 Overweight (principal); L98.7 Excessive and redundant skin and subcutaneous tissue; Z98.84 Bariatric surgery status
CPT/HCPCS: 99214

== ENCOUNTER → 2023-05-10 11:14 | Outpatient (BNVA) | payer MEDICAID, SELFPAY | PROVIDERS: PCP Internal Medicine; Visit Provider Physician Assistant Surgical | DX: E66.3 Overweight (principal); L98.7 Excessive and redundant skin and subcutaneous tissue; Z98.84 Bariatric surgery status; Z68.27 Body mass index [BMI] 27.0-27.9, adult | CPT/HCPCS: 99212 ==

== ENCOUNTER 2023-05-13 13:59 | Outpatient (AMB) | payer MEDICAID, SELFPAY ==
--- NOTE | 2023-05-13 14:01 | A.OFFVIS_ITS ---
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 Denies any recent trauma, injury or falls. Patient reports her pain starts at right buttock and shoots down into her right groin and right lower extremity at anterior thigh and anterior and lateral lower leg at the ankle level. She has pending repeat lumbar spine MRI scheduled on 05/18/23 per recent [facility] visit. Patient's main concern today is right hip pain. She presents with right groin and right lateral hip pain. Her most recent hip xray imaging in 2022 was normal. Per lumbar spine MRI 05/2022, at L2-L3 there is a small right foraminal disc protrusion with an annular fissure and there may be impingement on the exiting right L2 nerve root. We will re-evaluate this with new upcoming MRI and consider injection at that level. Patient requests right hip MRI. We discussed to hold off on this until her lumbar spine MRI is complete as well as pursue formal physical therapy. Patient declined PT at this time due to significant aggravation of pain with any movement, weight bearing, prolonged walking, standing or sitting. Patient also reports numbness and tingling in her hands and right leg and right foot. She reports history of chronic back and neck pain with radicular symptoms. Patient reports history of RNYGBP done at [facility] 2011 and gastric sleeve in 2021 at [facility] and has been taking vitamin supplements since then. Her vitamin B1 and B12 levels were normal as of 08/2022. She denies previous EMG or NVC studies. Patient denies any fever, chills, shortness of breaths, weakness, foot drop, locking or catching, popping or clicking sensations, instability, swelling, bladder or bowel incontinence or saddle anesthesia. Reports positive COVID illness last week. Past Procedures: 11/10/22: Left L4 TFESI-0% pain relief D eugenia Lopezais 08/19/22: Bilateral Diagnostic L3-L4-DRL 5 MBB-0% pain relief Dr. Badillo PRIOR: Patient is a pleasant 41 years old female presents today with low back pain with left sided radiculopathy. Denies any inciting events. 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 Patient reports pain has been progressively worse since last July 2021. She currently is not employed and has been on permanent disability. Back pain is axial and also radiates to distal left leg laterally and posteriorly with associated numbness and tingling in her left ankle and foot but also reports bilateral neuropathy pain in both feet. Patient reports she tried physical therapy at [facility] but had to stop due to exacerbation of pain. Denies previous back surgery or injections. Reports history of gastric bypass surgery and tries to avoid regular use of NSAIDs. Pain affects her daily activities, functioning, sleep, mood, social interactions and quality of life. Lumbar spine xray and MRI imaging was reviewed and is noted below. Denies any bladder or bowel incontinence or saddle anesthesia. Location Chronic low back pain Duration Since July 2021 Characteristics of symptom or complaint Throbbing, shooting, stabbing, sharp, burning, tingling, heavy, radiating Aggravating or associated factors Sitting, walking standing, changing positions Relieving factors Heat therapy, Tylenol, lidocaine pathces, cyclobenzaprine, Ibuprofen Treatment PT at [facility] Medical History Intra-abdominal adhesions Depression Hidradenitis Abnormal EKG Bipolar 1 disorder Hx of borderline personality disorder ADHD Chronic post-traumatic stress disorder (PTSD) Pre-op evaluation Surgical History S/P laparoscopic sleeve gastrectomy Hx of esophagogastroduodenoscopy Gastric bypass status for obesity Family History Mother Obesity Diabetes mellitus Sister No problems noted. Son Leukemia Obesity Social History Are you a primary resident care coordinator to a significant other at home: No Do you presently have visiting nurse or other home services: No Alcohol intake: never Patient Tobacco Use Status: Never used Tobacco Advance Directives Date on File: 05/15/21 service: No Current occupational status: unemployed Review of Systems Const All systems reviewed & are unremarkable except as noted in HPI and below Physical Exam Vital Signs: Last Vital Signs Pulse 81 05/13/23 14:06 BP 121/65 05/13/23 14:06 Pulse Ox 97 05/13/23 14:06 Oxygen Delivery Method Room Air 05/13/23 14:06 BMI result Body Mass Index 28.1 General: Appears afebrile. Alert and oriented. Mood and affect appropriate. Follows and participates in conversation appropriately. Respiratory effort is unlabored. Able to transition from sit to stand unassisted. Ambulates with bilaterally normal heel strike and toe off Back/Spine/Pelvis Other: Lumbar extension and flexion reproduces significant pain. Right groin pain with I/E hip rotations. Multiple widespread TTPs 16/16 bilaterally, including upper and lower extremities. Cervical Spine: cervical ROM normal, cervical muscular tenderness and No Cervical spine tenderness Thoracic/Lumbar Spine: thoracic and lumbar spine normal to inspection, No Thoracic/lumbar spine scar(s), Lasegue's sign positive on the right and diffuse, paraspinal muscle tenderness, No thoracic spinal tenderness, lumbar spinal tenderness and straight leg raise positive right at 50 degrees Pelvis: buttock tenderness on the right Sacroiliac joints: bilaterally (+Marcus's test) tender to palpation Extrem General: Yes capillary refill normal, Yes no clubbing, cyanosis or edema and Yes no calf tenderness Right lower extremity: hip/thigh Details: tenderness (lateral hip); no swelling, no ecchymosis, no crepitus and no unusual warmth Results Reviewed Results Reviewed: MR LUMBAR SPINE WITHOUT CONTRAST 06/03/22 CLINICAL INFORMATION: Lower back pain with left-sided sciatica. COMPARISON: Plain films of the lumbar spine 07/16/2017. FINDINGS: VERTEBRAL BODIES AND PARASPINAL STRUCTURES: There is a mild grade 1 anterolisthesis of L4 on L5. There are retrolistheses of L1 on L2 and L3 on L4. There is multilevel narrowing of intervertebral disc height throughout the spine, sparing L5-S1. This is most severe at L1-L2 and L4-L5. Vertebral body heights are maintained, and no fractures are demonstrated. There are degenerative endplate contour changes with mild edematous signal at L3-L4. There is a Schmorl's node in superior endplate of L2 with mild edematous signal. Vertebral body heights are maintained and no fractures are demonstrated. Overall, marrow signal is homogenous. The visualized retroperitoneal structures are unremarkable. There is an incompletely visualized right ovarian cyst measuring up to 5.1 cm. CONUS MEDULLARIS AND CAUDA EQUINA: Normal, terminating at the level of T12-L1. The lower thoracic spinal cord appears normal. The cauda equina nerve roots and filum terminale appear normal. SPINAL LEVELS: T12-L1: The facet joints appear normal bilaterally. Disc contour is normal. There is no central stenosis or foraminal narrowing. L1-L2: There is mild bilateral facet arthropathy with ligamenta flava hypertrophy and small facet joint effusions. There is a shallow posterior disc protrusion without significant mass effect on the thecal sac extending into the inferior neural foramina without definite exiting nerve root impingement. There is no central stenosis. L2-L3: There is mild bilateral facet arthropathy. There is a small right foraminal disc protrusion with an annular fissure and there may be impingement on the exiting right L2 nerve root. The left neural foramen is patent, and there is no central stenosis. L3-L4: There is moderate bilateral facet arthropathy with ligamenta flava hypertrophy and facet joint effusions. There is a broad-based posterior disc protrusion which is focally more prominent in the midline with some distortion of the ventral thecal sac and there is narrowing of the subarticular recess on the left. There is mild central stenosis. There are bilateral foraminal disc protrusions extending far laterally, more prominent on the left and there is impingement on the exiting and extraforaminal L3 nerve roots, more severely on the left. L4-L5: There is severe bilateral facet arthropathy with ligamenta flava hypertrophy and facet joint effusions. There may be a small synovial cyst developing anteromedially off the left facet joint and there is some distortion of the dorsal thecal sac laterally on the left. There is unroofing of the disc as a result of the anterolisthesis. There are bilateral foraminal disc protrusions without definite exiting nerve root impingement. There is mild narrowing of the bilateral subarticular recesses, but there is no significant central stenosis. L5-S1: There is markedly severe right and severe left facet arthropathy. There is a shallow posterior disc protrusion without mass effect on the thecal sac and there is no central stenosis. There is no foraminal nerve root impingement IMPRESSION: 1. There is a grade 1 anterolisthesis of L4 on L5 secondary to facet arthropathy. There may be a small synovial cyst developing anteromedially on the left. There are bilateral foraminal disc protrusions without definite exiting nerve root impingement. There is no significant central stenosis. 2. At L3-L4 there is moderate facet arthropathy. There is a broad-based posterior disc protrusion extending far laterally with impingement on the exiting and extraforaminal L3 nerve roots, more severely on the left. There is mild central stenosis. 3. At L2-L3 there is a small right foraminal disc protrusion with an annular fissure and there may be impingement on the exiting right L2 nerve root. There is no central stenosis. 4. At L5-S1 there is markedly severe right and severe left facet arthropathy. There is no central stenosis or foraminal nerve root impingement. 5. There is a right sided ovarian cyst measuring up to 5.1 cm. Recommend prompt follow-up pelvic ultrasound. Assessment & Plan Assessment & Plan (1) Numbness and tingling in both hands: Code(s): R20.0 - Anesthesia of skin; R20.2 - Paresthesia of skin (2) Numbness and tingling of right leg: Code(s): R20.0 - Anesthesia of skin; R20.2 - Paresthesia of skin (3) Lumbar radiculopathy: Code(s): M54.16 - Radiculopathy, lumbar region (4) Lumbar facet arthropathy: Code(s): M47.816 - Spondylosis without myelopathy or radiculopathy, lumbar region (5) Right hip pain: Code(s): M25.551 - Pain in right hip Plan Pending lumbar spine MRI on 05/18/23 with [facility] follow up for surgical candidacy on 05/24/23. Discussed previous lumbar spine MRI results, overlapping symptoms of hip and back radiculopathy pathology. Will hold off on hip MRI at this time. Patient declined PT at this time as this was minimally effective in the past and currently reports significant aggravation of pain with any activity. If no significant changes on new MRI, will consider right L2-L3 YULI injection. If no relief, will proceed with hip MRI then. EMG and NVC studies for upper extremities and RLE to further evaluate chronic numbness and tingling. All questions and concerns have been answered and patient agreed with the plan. Follow up for EMG/NVC studies and sooner as needed. Orders: Orders NE nerve conduction velocity Today R20.0 - Anesthesia of skin, R20.2 - Paresthesia of skin NE electromyogram (EMG) Today R20.0 - Anesthesia of skin, R20.2 - Paresthesia of skin Coding Level of Care Code Est Pt Level 4 (26200) Diagnoses Numbness and tingling in both hands R20.0; R20.2 Numbness and tingling of right leg R20.0; R20.2 Lumbar radiculopathy M54.16 Lumbar facet arthropathy M47.816 Right hip pain M25.551
[2023-05-13 14:06] VITALS: BP 121/65; PULSE 81; O2SAT 97; BMI 28.1
== END 2023-05-13 14:24 | disposition home or self-care (01) ==
PROVIDERS: PCP Internal Medicine; Visit Provider Nurse Practitioner Family
DX: R20.0 Anesthesia of skin (principal); R20.2 Paresthesia of skin; M54.16 Radiculopathy, lumbar region; M47.816 Spondylosis without myelopathy or radiculopathy, lumbar region; M25.551 Pain in right hip
CPT/HCPCS: 99214

== ENCOUNTER → 2023-05-13 13:59 | Outpatient (BNVA) | payer MEDICAID, SELFPAY | PROVIDERS: PCP Internal Medicine; Visit Provider Nurse Practitioner Family | DX: M54.16 Radiculopathy, lumbar region (principal); M47.816 Spondylosis without myelopathy or radiculopathy, lumbar region; M25.551 Pain in right hip; R20.0 Anesthesia of skin; R20.2 Paresthesia of skin | CPT/HCPCS: 99212 ==

== ENCOUNTER 2023-05-17 15:14 | Outpatient (REF) | payer MEDICAID, SELFPAY ==
--- NOTE | ~2023-05-17 | US_ITS ---
EXAMINATION: US RETROPERITONEAL LIMITED (RENAL ONLY) CLINICAL INFORMATION: Urge incontinence. COMPARISON: . Ultrasound abdomen 01/24/2018. TECHNIQUE: Real-time imaging of the kidneys. FINDINGS: RIGHT KIDNEY: 10.3 x 4.2 x 4.9 cm (SAG x AP x TRV). The kidney is normal in size, contour, and echogenicity. Renal cortical thickness is normal. No calculi or focal parenchymal lesions. No hydronephrosis. LEFT KIDNEY: 10.5 x 5.5 x 4.5 cm (SAG x AP x TRV). The kidney is normal in size, contour, and echogenicity. Renal cortical thickness is normal. No calculi or focal parenchymal lesions. No hydronephrosis. US/US retroperitoneal limited IMPRESSION: Unremarkable renal ultrasound.
== END 2023-05-17 15:15 | disposition home or self-care (01) ==
LOC: HO.US 15:14
PROVIDERS: PCP Internal Medicine; Visit Provider Urology
DX: N39.41 Urge incontinence (principal); R35.1 Nocturia
CPT/HCPCS: 76775

== ENCOUNTER 2023-05-18 19:19 | Outpatient (REF) | payer MEDICAID, SELFPAY ==
--- NOTE | ~2023-05-18 | MR_ITS ---
EXAMINATION: MR LUMBAR SPINE WITHOUT CONTRAST CLINICAL INFORMATION: 42-year-old with radiculopathy, lumbar region. Self-reported fibromyalgia with right leg pain and weakness. COMPARISON: 06/03/2022 MRI. TECHNIQUE: MRI of the lumbar spine was obtained using routine sequences without contrast. FINDINGS: CORONAL ALIGNMENT: There is mild lower lumbar dextrocurvature, mildly convex to the right at L4-L5 only partially imaged on current study and not imaged on previous exam. SAGITTAL ALIGNMENT: There is grade 1 rotatory anterolisthesis asymmetric to the left at L4-L5 similar to the previous exam without spondylolysis. There is grade 1 retrolisthesis at L3-L4 slightly progressed from previous study. Mild grade 1 retrolisthesis at L2-L3 also appears slightly more prominent on current study with stable grade 1 retrolisthesis at L1-L2. LUMBOSACRAL JUNCTION: Transitional lumbosacral anatomy with lowest lumbar-like segment labeled as L5, which appears partially sacralized on the right. VERTEBRAL BODIES: Stable vertebral body heights. No interval compression fractures. DISC SPACES AND ENDPLATES: [id number] intervertebral disc space height loss asymmetric to the left at L4-L5 with disc desiccation stable in appearance. [id number] disc volume loss at L3-L4 asymmetric to the left, slightly progressed from previous exam with a stable small Schmorl's node along the superior endplate of L4 on the left. Minor spondylosis is unchanged. Mild disc volume loss at L2-L3 with disc desiccation is stable. [id number] intervertebral disc space height loss asymmetric to the right at L1-L2 with disc desiccation, central Schmorl's nodes and spondylosis stable in appearance. Schmorl's nodes noted along the superior and inferior endplates of T12 are unchanged. SPINAL CANAL: No abnormal developmental findings. BONE MARROW: No significant marrow-replacing process or bone marrow edema. Type I degenerative marrow signal changes are seen along the endplates asymmetric to the left at L3-L4 progressed from previous study. There is a 1 cm low T1/high T2 signal focus in the L2 vertebral body close to the superior endplate which is unchanged in appearance from previous exam and may reflect an atypical lipid poor 9 vertebral hemangioma. CONUS MEDULLARIS: Terminates at L1. Morphology and signal is normal. INTRADURAL NERVE ROOTS: There is some crowding of the intradural nerve roots at L3-L4 progressed from previous study. Otherwise grossly within normal limits. L5-S1: Small, shallow central disc protrusion without neural impingement stable in appearance. Moderate right and mild left-sided facet arthropathy noted without significant canal or neuroforaminal stenosis stable in appearance. L4-L5: Unroofing of the posterior disc margin asymmetric to the left consistent with rotatory anterolisthesis stable in appearance. There is associated mild flattening of the ventral dural sac similar to prior study. Ligamentum flavum thickening and moderate to severe bilateral facet joint arthropathy is similar to the previous exam without significant central spinal canal stenosis. There is narrowing of the left lateral recess, with encroachment on the traversing left L5 nerve root unchanged in appearance. There is mild craniocaudal neuroforaminal narrowing on the left without definite exiting neural impingement stable in appearance. L3-L4: Retrolisthesis at this level somewhat progressed from previous exam. There is disc bulging with a superimposed central disc herniation slightly more apparent on current study, with increased flattening of the ventral dural sac. Ligamentum flavum thickening and moderate to marked bilateral facet joint arthropathy are stable. There is moderate central spinal canal stenosis somewhat progressed from the previous exam with progression of crowding of the intradural nerve roots. There is crowding of the subarticular zones on the current study which encroaches on the traversing L4 nerve roots bilaterally progressed from previous study. There is mild to moderate right and moderate to severe left-sided neural foraminal narrowing impinging on the exiting L3 nerve roots bilaterally similar to the previous exam. L2-L3: Mild retrolisthesis slightly more apparent on current study. Bilateral subarticular to foraminal disc protrusions stable on the right and slightly progressed on the left with mild indentation of the ventral thecal sac on both sides of midline progressed from previous study. No significant central canal stenosis. [id number]-gv-[id number] bilateral facet joint arthropathy is stable with mild narrowing of the subarticular zones bilaterally on current study without neural impingement. No significant neural foraminal stenosis. L1-L2: Stable retrolisthesis, with disc bulging and right paravertebral/posterolateral disc osteophyte complex stable in appearance with mild indentation of the ventral thecal sac asymmetric to the right without central canal stenosis stable in appearance. Minor foraminal narrowing noted on the right without neural impingement unchanged in appearance. T12-L1: Normal annular contour. No facet arthrosis, canal or foraminal stenosis. PARAVERTEBRAL AND INCLUDED EXTRASPINAL SOFT TISSUES: The visualized paravertebral soft tissues and included retroperitoneal structures are unremarkable within the limitations of the exam. Within the pelvis on the employment agency manager view, there is a 5.5 cm cystic structure in the expected location of the right adnexa, similar in appearance to the previous study, based on evaluation of the employment agency manager view. MR/MR lumbar spine wo con IMPRESSION: 1. Mild lower lumbar dextrocurvature convex to the right at L4-L5, not imaged on previous exam. Multilevel subluxations as described, stable at L4-L5, progressed at L3-L4 and L2-L3. 2. Multilevel discogenic degenerative changes and spondylosis, with progression of disc volume loss at L3-L4 since the previous exam and progression of retrolisthesis at this level with disc bulging and central disc herniation at this level. Moderate central spinal canal stenosis at this level progressed from previous study with progression of crowding of the intradural nerve roots and encroachment on the traversing L4 nerve roots bilaterally progressed from previous study. [id number]-ya-ivzysl left and [id number]-[id number] right-sided neural foraminal stenosis at L3-L4, similar to previous exam, with impingement on the exiting L3 nerve roots bilaterally, similar to previous exam. 3. Left lateral recess stenosis at L4-L5 with mild encroachment on the traversing left L5 nerve root unchanged in appearance. 4. Multilevel bilateral facet joint arthropathy as described above largely unchanged in appearance. 5. A 5.5 cm cystic structure in the expected location of the right adnexa on the employment agency manager view similar to the previous study. As noted on the previous study, this likely reflects a physiologic right ovarian cyst but is not definitely characterized as simple-appearing based on this study and therefore follow up ultrasound may be indicated.
== END 2023-05-18 19:20 | disposition home or self-care (01) ==
LOC: HO.MRI 19:19
PROVIDERS: PCP Internal Medicine; Visit Provider Physician Assistant
DX: M54.16 Radiculopathy, lumbar region (principal)
CPT/HCPCS: 72148

== ENCOUNTER → 2023-05-24 14:43 | Outpatient (BNVA) | payer MEDICAID, SELFPAY | PROVIDERS: PCP Internal Medicine; Visit Provider Neurological Surgery | DX: M25.551 Pain in right hip (principal) | CPT/HCPCS: 99212 ==

== ENCOUNTER 2023-06-02 07:39 | Outpatient (AMB) | payer MEDICAID, SELFPAY ==
[2023-06-02 07:42] VITALS: BMI 28.1
--- NOTE | 2023-06-02 07:42 | MHC.OFFVIS ---
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 The patient states that her symptoms have gotten worse over the last year in spite of continued non operative treatments. She did have an MRI of her lumbar spine which showed evidence of severe stenosis. The patient was sent to our office for evaluation of her right hip pain. She describes her hip pain as burning in nature. The pain does at times radiate into her right groin. She has done physical therapy which aggravated her pain. She has also tried Tylenol, anti-inflammatory medicines and narcotics which gave her minimal relief. She does walk with a cane because of her symptoms. The patient does have a history of fibromyalgia. Allergies No Known Allergies Allergy (Verified 05/13/23 14:07) Medication List - Last Reconciled 06/02/23 by Solo Billingsley MD acetaminophen 500 mg PO TID PRN adalimumab (Humira) 40 mg subcut QWEEK amlodipine 5 mg PO QAM aripiprazole 2 mg PO DAILY betamethasone dipropionate 0.05% topical celecoxib 200 mg PO cetirizine 10 mg PO QAM chlorhexidine gluconate 4% (Hibiclens) topical DAILY cholecalciferol (vitamin D3) 25 mcg PO DAILY clonazepam 1 mg PO DAILY PRN clotrimazole 1% 1 appl topical BID dulaglutide (Trulicity) 1.5 mg subcut QWEEK duloxetine 30 mg PO BID gabapentin 300 mg PO BEDTIME 30 days hydroxyzine HCl mg PO incontinence pad, liner, disp (Dry Comfort pads) As directed lidocaine 5% (Lidoderm) 1 patch topical DAILY PRN MDD remove after 12 hours lidocaine 5% topical methocarbamol 750 mg PO Q8H PRN ondansetron HCl 8 mg PO Q8H PRN oxybutynin chloride ER 5 mg PO QAM oxycodone-acetaminophen 5-325 mg 1 tab PO Q6H PRN pantoprazole 20 mg PO BID solifenacin (Vesicare) 10 mg PO BEDTIME spironolactone 100 mg PO BID topiramate 50 mg PO BID valacyclovir 1 tab PO DAILY ziprasidone HCl 2 caps PO BEDTIME PFSH Medical History Intra-abdominal adhesions Depression Hidradenitis Abnormal EKG Bipolar 1 disorder Hx of borderline personality disorder ADHD Chronic post-traumatic stress disorder (PTSD) Pre-op evaluation Surgical History S/P laparoscopic sleeve gastrectomy Hx of esophagogastroduodenoscopy Gastric bypass status for obesity Family History Mother Obesity Diabetes mellitus Sister No problems noted. Son Leukemia Obesity Social History Are you a primary residential child care counselor to a significant other at home: No Do you presently have visiting nurse or other home services: No Alcohol intake: never Patient Tobacco Use Status: Never used Tobacco Advance Directives Date on File: 05/15/21 service: No Current occupational status: unemployed Physical Exam Vital Signs: BMI result Body Mass Index 28.1 Const Other: Well-nourished well-developed very friendly female awake alert and oriented x3 in no acute distress Extrem Other: Bilateral lower extremity examination shows good capillary refill, no skin lesions noted, normal sensation light touch Right hip examination shows slightly decreased range of motion when compared to her left hip, pain with range of motion, diffuse tenderness along her thigh, bursa, low back and sacroiliac joint Results Reviewed Results Reviewed: X-rays of the patient's right hip show no significant degenerative changes Assessment & Plan Assessment & Plan (1) Right hip pain: Code(s): M25.551 - Pain in right hip Plan Ms. Sandy presents with progressively worsening low back pain which radiates down her right leg as well as associated right leg weakness due to lumbar stenosis. She also has right hip pain possibly due to avascular necrosis of her femoral head. Thus, in order to help rule out hip pathology as a main source of her symptoms I will send her for an MRI of her right hip. I will see her back once the MRI is completed to discuss the findings. Feel free to call me at any time should questions regarding her orthopedic management arise. I spent 22 minutes in reviewing the patient's records and imaging studies, seeing the patient and documenting in the medical record. Orders: Orders MR hip RT wo con Today M25.551 - Pain in right hip Coding Level of Care Code New Pt Level 2 (98361) Diagnoses Right hip pain M25.551
== END 2023-06-02 08:06 | disposition home or self-care (01) ==
PROVIDERS: PCP Internal Medicine; Visit Provider Orthopaedic Surgery
DX: M25.551 Pain in right hip (principal)
CPT/HCPCS: 99202

== ENCOUNTER → 2023-06-02 07:39 | Outpatient (BNVA) | payer MEDICAID, SELFPAY | PROVIDERS: PCP Internal Medicine; Visit Provider Orthopaedic Surgery | DX: E66.3 Overweight (principal); L98.7 Excessive and redundant skin and subcutaneous tissue; M54.50 Low back pain, unspecified; M25.551 Pain in right hip; Z71.3 Dietary counseling and surveillance; Z98.84 Bariatric surgery status; Z79.899 Other long term (current) drug therapy | CPT/HCPCS: 99202; 99212 ==

== ENCOUNTER 2023-06-02 11:09 | Outpatient (AMB) | payer MEDICAID, SELFPAY ==
--- NOTE | 2023-06-02 11:13 | A.OFFVIS_ITS ---
Intake VS Expanded 06/02/23 11:18 BP 133/86 Blood Pressure Location Rt brachial Blood Pressure Position Sitting Pulse 77 Pulse Source Pulse Oximeter Temp 97.0 F Temperature Source Tympanic Pulse Oximetry 98 Oxygen Delivery Method Room Air Height 5 ft 3.5 in Weight 156 lb 6.4 oz BMI 27.3 Body Fat % 29.9 Body Fat Mass 46.8 Fat Free Mass 109.6 Visceral Fat Rating 5.0 Body Water % 50.1 Body Water Mass 78.2 Muscle Mass/Score 104.0 Basal Metabolic Rate/Score 1,480 Intake Visit Reasons: (OV) PO LSG 05/13/21 Allergies No Known Allergies Allergy (Verified 06/02/23 11:24) Medication List - Last Reconciled 06/02/23 by KAYLEIGH Lord acetaminophen 500 mg PO TID PRN adalimumab (Humira) 40 mg subcut QWEEK amlodipine 5 mg PO QAM aripiprazole 2 mg PO DAILY betamethasone dipropionate 0.05% topical celecoxib 200 mg PO cetirizine 10 mg PO QAM chlorhexidine gluconate 4% (Hibiclens) topical DAILY cholecalciferol (vitamin D3) 25 mcg PO DAILY clonazepam 1 mg PO DAILY PRN clotrimazole 1% 1 appl topical BID dulaglutide (Trulicity) 1.5 mg subcut QWEEK duloxetine 30 mg PO BID gabapentin 300 mg PO BEDTIME 30 days hydroxyzine HCl mg PO incontinence pad, liner, disp (Dry Comfort pads) As directed lidocaine 5% (Lidoderm) 1 patch topical DAILY PRN MDD remove after 12 hours lidocaine 5% topical methocarbamol 750 mg PO Q8H PRN ondansetron HCl 8 mg PO Q8H PRN oxybutynin chloride ER 5 mg PO QAM oxycodone-acetaminophen 5-325 mg 1 tab PO Q6H PRN pantoprazole 20 mg PO BID solifenacin (Vesicare) 10 mg PO BEDTIME spironolactone 100 mg PO BID topiramate 50 mg PO BID valacyclovir 1 tab PO DAILY ziprasidone HCl 2 caps PO BEDTIME HPI HPI Comments History of Present Illness Details This?is a?42?yo female who is s/p LSG 05/13/2021. Seen in followup for ongoing issues of excess skin. Weight change of -3bs since last visit one month ago. Present meal plan includes: two Isopure shakes per day, unflavored, 1 scoop each; 1 15g protein bar (recommended Celebrate brand as she likes strawberry flavor), and one meal of 4 forks protein, 4 forks salad/veg Pt reports doing well on this meal plan, getting adequate protein. Pt reports ongoing problems of excess skin of abdomen, upper arms and upper legs. Pt reports rashes of excess skin of abdomen, painful and worse when weather is hot. Has tried a chafing deoderant stick which has not resolved the problem. More recently tried clotrimazole ointment and again this did not completely resolve the rashes. Moisture collects in skin fold and smells unpleasant so she has to wash multiple times a day. Has to wear compressive waistbands on her pa nts to hold excess skin in place. The excess skin is very heavy and worsens her back pain due to the weight of the skin in front of her body. Pt reports chafing and friction of excess skin of upper thighs. Chafing deodorant stick has not resolved these issues. Cannot wear shorts due to skin being on contact worsening the friction. Has tried shapewear to hold skin in place but this does not help as moisture will collect in the skin folds and fabric, and result in unpleasant odor. Movement and range of motion is limited due to the discomfort resulting from the excess skin, particularly considering her chronic pain and the weight of the excess skin. Pt reports issues of excess skin of upper arms. She has started to experience rashes and painful chafing where skin rubs against her torso. She has tried the prescription Rx cream given but this did not resolve the problem. Can only wear loose sleeves as tighter clothing irritates the skin. She finds walking to become more difficult because of the rubbing of the skin on her torso when her arms move. The heaviness of the excess skin causes worsening of her chronic pain. She recently found out she has worsening vertebrae problems in her neck and the weight of the excess skin of the arms has been pulling on this and causing increased discomfort. COUNT INCLUDES [facility] Medical History Intra-abdominal adhesions Depression Hidradenitis Abnormal EKG Bipolar 1 disorder Hx of borderline personality disorder ADHD Chronic post-traumatic stress disorder (PTSD) Pre-op evaluation Surgical History S/P laparoscopic sleeve gastrectomy Hx of esophagogastroduodenoscopy Gastric bypass status for obesity Family History Mother Obesity Diabetes mellitus Sister No problems noted. Son Leukemia Obesity Social History Are you a primary career services manager to a significant other at home: No Do you presently have visiting nurse or other home services: No Alcohol intake: never Patient Tobacco Use Status: Never used Tobacco Advance Directives Date on File: 05/15/21 service: No Current occupational status: unemployed Physical Exam Vital Signs: Last Vital Signs Temp 97.0 F 06/02/23 11:18 Pulse 77 06/02/23 11:18 BP 133/86 06/02/23 11:18 Pulse Ox 98 06/02/23 11:18 Oxygen Delivery Method Room Air 06/02/23 11:18 BMI result Body Mass Index 27.3 Assessment & Plan Assessment & Plan (1) Overweight: Code(s): E66.3 - Overweight (2) Excess skin: Code(s): L98.7 - Excessive and redundant skin and subcutaneous tissue (3) S/P laparoscopic sleeve gastrectomy: Comment: 05/13/21 Code(s): Z98.84 - Bariatric surgery status Plan Pt is interested in pursuing arms and abdomen skin removal first. Regarding abdomen, pt has been experiencing ongoing painful and malodorous rashes refractory to the use of topical Rx treatment. She is also experiencing ongoing pain and limitation of physical function due to the discomfort caused by the heaviness of the skin, and is experiencing worsening of her chronic pain. She would benefit from definitive treatment of panniculectomy. Regarding upper arms, pt has been experiencing ongoing chafing and painful rashes refractory to the use of topical Rx treatment. She is also experiencing ongoing pain and limitation of physical function due to the discomfort caused by the heaviness of the skin, including limitations of activities of daily living such as walking, and is experiencing worsening of her chronic pain. She would benefit from definitive treatment of brachioplasty. RTC 1 month to monitor stability of weight. At that time we can take new photos to document extent of excess skin. Patient is overweight and with ongoing issues of excess skin, and is not considered stable at this time. I spent a total of 30 minutes reviewing/updating records, examining the patient and counseling the patient on weight management as detailed above. Coding Level of Care Code Est Pt Level 4 (54317) Diagnoses Overweight E66.3 Excess skin L98.7 S/P laparoscopic sleeve gastrectomy Z98.84
[2023-06-02 11:18] VITALS: BP 133/86; PULSE 77; TEMP 36.1; O2SAT 98; BMI 27.3
== END 2023-06-02 11:53 | disposition home or self-care (01) ==
PROVIDERS: PCP Internal Medicine; Visit Provider Physician Assistant Surgical
DX: E66.3 Overweight (principal); L98.7 Excessive and redundant skin and subcutaneous tissue; Z98.84 Bariatric surgery status
CPT/HCPCS: 99499

== ENCOUNTER 2023-06-09 13:21 | Outpatient (REF) | payer MEDICAID, SELFPAY ==
--- NOTE | 2023-06-09 13:25 | EMG_ITS ---
Chief complaint: Right lower back pain radiating to right leg, tingling on right groin going down to right foot, tingling/pain left hip down to thigh, bilateral hand numbness, right sided neck pain, tingling in right arm Reason for referral: Evaluate for lumbar radiculopathy versus neuropathy, evaluate for Carpal Tunnel Syndrome versus radiculopathy Referred by: Cary Garcia NP Procedure done: Bilateral upper extremities NCS/EMG Precautions and/or limitations: None The limb temperature was monitored continuously and remained between 32-36 degrees C during the performance of the NCS. Nerve Conduction Studies Anti Sensory Summary Table ?Stim Site NR Onset (ms) Norm Onset (ms) Peak (ms) Norm Peak (ms) O-P Amp (?V) Norm O-P Amp Site1 Site2 Delta-0 (ms) Dist (cm) Shaheen (m/s) Norm Shaheen (m/s) Left Median Anti Sensory (2nd Digit) Wrist ? 2.7 3.4 <3.6 49.6 >10 Wrist 2nd Digit 2.7 14.0 52 Right Median Anti Sensory (2nd Digit) Wrist ? 2.7 3.3 <3.6 54.4 >10 Wrist 2nd Digit 2.7 14.0 52 Right Radial Anti Sensory (Thumb) Forearm ? 1.5 2.1 <3.1 35.2 Forearm Thumb 1.5 0.0 Left Sural Anti Sensory (Lat Mall) Calf ? 3.1 3.8 <4.0 7.7 >5.0 Calf Lat Mall 3.1 14.0 45 Right Sural Anti Sensory (Lat Mall) Calf ? 2.8 3.4 <4.0 14.4 >5.0 Calf Lat Mall 2.8 14.0 50 Left Ulnar Anti Sensory (5th Digit) Wrist ? 2.8 3.1 <3.7 24.1 >15.0 Wrist 5th Digit 2.8 14.0 50 Right Ulnar Anti Sensory (5th Digit) Wrist ? 2.3 3.1 <3.7 35.0 >15.0 Wrist 5th Digit 2.3 14.0 61 Motor Summary Table ?Stim Site NR Onset (ms) Norm Onset (ms) O-P Amp (mV) Norm O-P Amp iAmp (mV) Amp (1st) (%) Site1 Site2 Delta-0 (ms) Dist (cm) Shaheen (m/s) Norm Shaheen (m/s) Left Median Motor (Abd Poll Brev) Wrist ? 3.3 <3.9 11.4 >4.5 13.4 100.0 Elbow Wrist 3.5 20.0 57 >45 Elbow ? 6.8 11.2 13.5 98.2 Right Median Motor (Abd Poll Brev) Wrist ? 3.1 <3.9 11.2 >4.5 12.7 100.0 Elbow Wrist 3.4 20.0 59 >45 Elbow ? 6.5 13.1 15.1 117.0 Left Peroneal Motor (Ext Dig Brev) Ankle ? 3.9 <4.0 4.4 >2.5 5.2 100.0 Ankle Ext Dig Brev 3.9 0.0 B Fib ? 11.8 4.2 4.8 95.5 B Fib Ankle 7.9 31.5 40 >40 Poplt ? 13.0 4.1 4.7 93.2 Poplt B Fib 1.2 5.0 42 >40 Right Peroneal Motor (Ext Dig Brev) Ankle ? 4.0 <4.0 5.4 >2.5 6.5 100.0 Ankle Ext Dig Brev 4.0 0.0 B Fib ? 10.6 4.6 5.5 85.2 B Fib Ankle 6.6 30.5 46 >40 Poplt ? 11.6 4.8 5.7 88.9 Poplt B Fib 1.0 4.5 45 >40 Left Tibial Motor (Abd Beal Brev) Ankle ? 3.6 <5 12.9 >2.5 17.7 100.0 Ankle Abd Beal Brev 3.6 0.0 Knee ? 11.2 14.1 19.8 109.3 Knee Ankle 7.6 35.0 46 >40 Right Tibial Motor (Abd Beal Brev) Ankle ? 3.6 <5 16.9 >2.5 22.2 100.0 Ankle Abd Beal Brev 3.6 0.0 Knee ? 11.0 20.0 27.3 118.3 Knee Ankle 7.4 35.0 47 >40 Left Ulnar Motor (Abd Dig Minimi) Wrist ? 3.0 <3.0 8.4 >5 10.5 100.0 B Elbow Wrist 3.0 18.5 62 >45 B Elbow ? 6.0 5.9 7.2 70.2 A Elbow B Elbow 1.0 10.0 100 >45 A Elbow ? 7.0 7.9 9.8 94.0 Right Ulnar Motor (Abd Dig Minimi) Wrist ? 2.9 <3.0 12.9 >5 15.3 100.0 B Elbow Wrist 3.1 18.0 58 >45 B Elbow ? 6.0 12.3 15.0 95.3 A Elbow B Elbow 1.4 10.0 71 >45 A Elbow ? 7.4 12.0 14.7 93.0 EMG ?Side Muscle Nerve Root Ins Act Fibs Psw Amp Dur Poly Recrt Int Pat Comment Right 1stDorInt Ulnar C8-T1 Nml Nml Nml Nml Nml 0 Nml Complete Right FlexCarRad Median C6-7 Nml Nml Nml Nml Nml 0 Nml Complete Right Biceps Musculocut C5-6 Nml Nml Nml Nml Nml 0 Nml Complete Right Triceps Radial C6-7-8 Nml Nml Nml Nml Nml 0 Nml Complete Right Deltoid Axillary C5-6 Nml Nml Nml Nml Nml 0 Nml Complete Right AbdHallucis MedPlantar S1-2 Nml Nml Nml Nml Nml 0 Nml Complete Right AntTibialis Dp Br Peron L4-5 Nml Nml Nml Nml Nml 0 Nml Complete Right PostTibialis Tibial L5, S1 Nml Nml Nml Nml Nml 0 Nml Complete Right MedGastroc Tibial S1-2 Nml Nml Nml Nml Nml 0 Nml Complete Right VastusMed Femoral L2-4 Nml Nml Nml Nml Nml 0 Nml Complete Left AbdHallucis MedPlantar S1-2 Nml Nml Nml Nml Nml 0 Nml Complete Left AntTibialis Dp Br Peron L4-5 Nml Nml Nml Nml Nml 0 Nml Complete Left MedGastroc Tibial S1-2 Nml Nml Nml Nml Nml 0 Nml Complete Left VastusMed Femoral L2-4 Nml Nml Nml Nml Nml 0 Nml Complete Paraspinal EMG ?Side Muscle Nerve Root Ins Act Fibs Psw Comment Right Cervical Upper Rami Nml Nml Nml Right Cervical Mid Rami Nml Nml Nml Right Cervical Lower Rami Nml Nml Nml Right Lumbar Upper Rami Nml Nml Nml Right Lumbar Mid Rami Nml Nml Nml Right Lumbar Lower Rami Nml Nml Nml Left Lumbar Upper Rami Nml Nml Nml Left Lumbar Mid Rami Nml Nml Nml Left Lumbar Lower Rami Nml Nml Nml FINDINGS: All motor and sensory nerves tested on bilateral lower extremities and upper extremities showed normal latencies, amplitudes and conduction velocities. Concentric needle EMG was performed in selected muscles of the bilateral lower extremities, right upper extremity, bilateral lumbar paraspinals, right cervical paraspinals. Study revealed Signs of electric abnormalities as shown in the table below. IMPRESSION: 1. This is a normal study. 2. There is no electrodiagnostic evidence for median neuropathy, ulnar neuropathy, brachial plexopathy, or cervical radiculopathy. 3. There is no electrodiagnostic evidence for peroneal neuropathy, tibial neuropathy, lumbosacral plexopathy, lumbar radiculopathy, or peripheral neuropathy. Thank you for your kind referral. Debbie Boone MD, BATSHEVA Board Certified, [place] [employer] and [employer] (ABPMR) Board Certified, [place] Board [employer] Electrodiagnostic [employer] (ABEM) CODIN [id number] x 3 MTDD
== END 2023-06-09 13:22 | disposition home or self-care (01) ==
LOC: HO.NEURO 13:21
PROVIDERS: PCP Internal Medicine; Visit Provider Nurse Practitioner Family
DX: R20.0 Anesthesia of skin (principal); R20.2 Paresthesia of skin
CPT/HCPCS: 95886; 95913

== ENCOUNTER → 2023-06-09 13:25 | Outpatient (BNV) | payer MEDICAID, SELFPAY | PROVIDERS: PCP Internal Medicine; Visit Provider Physical Medicine & Rehabilitation | DX: M79.604 Pain in right leg (principal); M54.50 Low back pain, unspecified; M25.552 Pain in left hip; M79.641 Pain in right hand; M79.642 Pain in left hand; R20.2 Paresthesia of skin | CPT/HCPCS: 95885; 95886; 95913 ==

== ENCOUNTER 2023-06-14 07:12 | Outpatient (REF) | payer MEDICAID, SELFPAY ==
--- NOTE | ~2023-06-14 | MR_ITS ---
EXAMINATION: MR HIP WITHOUT CONTRAST, RIGHT CLINICAL INFORMATION: Pain in the right hip. COMPARISON: X-ray of the right hip 02/11/2023. MRI lumbosacral spine May 2022. Ultrasound of the pelvis July 2022. TECHNIQUE: MRI of the right hip was obtained using routine sequences on a high-field strength magnet. FINDINGS: BONE/CARTILAGE: There is cartilage thinning and/or heterogeneity along the posterior superior aspect of the joint. There are no marginal osteophytes. Findings indicative of mild arthrosis. There is a mild joint effusion and synovitis. LABRUM/CAPSULE: Intact MUSCLES/TENDONS: Normal. NEUROVASCULAR STRUCTURES: Normal. SUBCUTANEOUS SOFT TISSUES: Normal. ADDITIONAL FINDINGS: Limited evaluation of the pelvis in the coronal plane was also performed as part of the examination protocol. Incidental note made of degenerative disc changes in the lower lumbosacral spine with disc bulging at 2 adjacent levels likely L3-L4 and L4-L5 with a transitional lumbosacral junction. This is more fully evaluated on prior MRI of lumbosacral spine May 2022. Remaining bone and joints in the pelvis unremarkable. There is a prominent septated cyst versus 2 adjacent cysts in the right adnexal region likely reflecting ovarian cyst. The larger cyst or cystic area measures 3.5 cm craniocaudal with the adjacent cyst or cystic area measuring 3.8 cm. Intrapelvic soft tissues otherwise unremarkable. MR/MR hip RT wo con IMPRESSION: 1. Mild arthrosis of the right hip joint with a mild joint effusion and synovitis. 2. Labrum intact. 3. Incidental note made of degenerative disc changes in the lower lumbosacral spine more fully evaluated on prior MRI lumbosacral spine May 2022. Incidental note made of a prominent septated cyst versus 2 adjacent cysts versus slightly complex cyst in the right adnexal region. A single cyst is noted on prior ultrasound July 2022 albeit smaller in size. Consider follow-up ultrasound in 3 to 6 months to ensure stability.
== END 2023-06-14 07:13 | disposition home or self-care (01) ==
LOC: HO.MRI 07:12
PROVIDERS: PCP Internal Medicine; Visit Provider Orthopaedic Surgery
DX: M25.551 Pain in right hip (principal)
CPT/HCPCS: 73721

== ENCOUNTER 2023-06-15 09:33 | Outpatient (AMB) | payer MEDICAID, SELFPAY ==
[2023-06-15 09:34] VITALS: BMI 27.2
--- NOTE | 2023-06-15 09:34 | MHC.OFFVIS ---
Intake Vital Signs 06/15/23 09:34 Height 5 ft 3.5 in Weight 156 lb BMI 27.2 Intake Visit Reasons: ov- right hip MRI Review Intake Note: Peri is a 42 year old female who presents with complaints of progressively worsening low back pain which radiates down her right leg as well as right hip pain. The patient states that her symptoms have gotten worse over the last year in spite of continued non operative treatments. She did have an MRI of her lumbar spine which showed evidence of severe stenosis. The patient was sent to our office for evaluation of her right hip pain. She describes her hip pain as burning in nature. The pain does at times radiate into her right groin. She has done physical therapy which aggravated her pain. She has also tried Tylenol, anti-inflammatory medicines and narcotics which gave her minimal relief. She does walk with a cane because of her symptoms. The patient does have a history of fibromyalgia. The patient walks with a cane because of her symptoms. Allergies No Known Allergies Allergy (Verified 06/02/23 11:24) Medication List - Last Reconciled 06/15/23 by Solo Billingsley MD acetaminophen 500 mg PO TID PRN adalimumab (Humira) 40 mg subcut QWEEK amlodipine 5 mg PO QAM aripiprazole 2 mg PO DAILY betamethasone dipropionate 0.05% topical celecoxib 200 mg PO cetirizine 10 mg PO QAM chlorhexidine gluconate 4% (Hibiclens) topical DAILY cholecalciferol (vitamin D3) 25 mcg PO DAILY clonazepam 1 mg PO DAILY PRN clotrimazole 1% 1 appl topical BID dulaglutide (Trulicity) 1.5 mg subcut QWEEK duloxetine 30 mg PO BID gabapentin 300 mg PO BEDTIME 30 days hydroxyzine HCl mg PO incontinence pad, liner, disp (Dry Comfort pads) As directed lidocaine 5% (Lidoderm) 1 patch topical DAILY PRN MDD remove after 12 hours lidocaine 5% topical methocarbamol 750 mg PO Q8H PRN ondansetron HCl 8 mg PO Q8H PRN oxybutynin chloride ER 5 mg PO QAM oxycodone-acetaminophen 5-325 mg 1 tab PO Q6H PRN pantoprazole 20 mg PO BID solifenacin (Vesicare) 10 mg PO BEDTIME spironolactone 100 mg PO BID topiramate 50 mg PO BID valacyclovir 1 tab PO DAILY ziprasidone HCl 2 caps PO BEDTIME PFSH Medical History Intra-abdominal adhesions Depression Hidradenitis Abnormal EKG Bipolar 1 disorder Hx of borderline personality disorder ADHD Chronic post-traumatic stress disorder (PTSD) Pre-op evaluation Surgical History S/P laparoscopic sleeve gastrectomy Hx of esophagogastroduodenoscopy Gastric bypass status for obesity Family History Mother Obesity Diabetes mellitus Sister No problems noted. Son Leukemia Obesity Social History Are you a primary child care center assistant director to a significant other at home: No Do you presently have visiting nurse or other home services: No Alcohol intake: never Patient Tobacco Use Status: Never used Tobacco Advance Directives Date on File: 05/15/21 service: No Current occupational status: unemployed Physical Exam Vital Signs: BMI result Body Mass Index 27.2 Const Other: Well-nourished well-developed very friendly female awake alert and oriented x3 in no acute distress Extrem Other: Bilateral lower extremity examination shows good capillary refill, no skin lesions noted, normal sensation light touch Right hip examination shows minimal discomfort with range of motion, minimal tenderness over her bursa, no crepitus with range of motion Results Reviewed Results Reviewed: MRI of the patient's right hip shows mild degenerative changes, no evidence of avascular necrosis, no labral tearing Assessment & Plan Assessment & Plan (1) Right hip pain: Code(s): M25.551 - Pain in right hip Plan Ms. Sandy Presents with low back pain which radiates down her right leg most likely due to lumbar stenosis. Based on the patient's physical findings and her right hip MRI which shows only mild degenerative changes I do not feel that the patient's symptoms are coming from hip pathology. The patient is instructed to make a follow-up appointment wiith our neurosurgery team. She will follow up with me on an as-needed basis. I spent 22 minutes in reviewing the patient's records and imaging studies, seeing the patient and documenting in the medical record. Coding Level of Care Code Est Pt Level 2 (78645) Diagnoses Right hip pain M25.551
== END 2023-06-15 10:00 | disposition home or self-care (01) ==
PROVIDERS: PCP Internal Medicine; Referring Provider Internal Medicine; Visit Provider Orthopaedic Surgery
DX: M25.551 Pain in right hip (principal)
CPT/HCPCS: 99213

== ENCOUNTER → 2023-06-15 09:33 | Outpatient (BNVA) | payer MEDICAID, SELFPAY | PROVIDERS: PCP Internal Medicine; Visit Provider Orthopaedic Surgery | DX: M54.50 Low back pain, unspecified (principal); M25.551 Pain in right hip; M79.7 Fibromyalgia | CPT/HCPCS: 99212 ==

== ENCOUNTER 2023-06-21 12:16 | Outpatient (REF) | payer MEDICAID, SELFPAY ==
--- NOTE | ~2023-06-21 | US_ITS ---
EXAMINATION: US PELVIS LIMITED (BLADDER) CLINICAL INFORMATION: Urge incontinence. COMPARISON: Renal ultrasound 05/17/2023. TECHNIQUE: Real-time imaging of the bladder. FINDINGS: BLADDER: Urinary bladder is partially distended and may be equivocally thick-walled given degree of underdistention. Bilateral ureteral jets are demonstrated. Prevoid bladder volume is 183 mL. Postvoid bladder volume is 5.8 mL. ADDITIONAL FINDINGS: A 7.6 cm right ovarian cyst, incompletely assessed increased in size from prior previously 4.9 cm recommend correlation with dedicated transvaginal/transabdominal ultrasound pelvis. US/US retroperitoneal limited IMPRESSION: * Urinary bladder is partially distended and may be equivocally thick-walled given degree of underdistention, recommend correlation with symptoms of cystitis. * A 7.6 cm right ovarian cyst, incompletely assessed, increased in size from prior recommend correlation with dedicated transvaginal/transabdominal ultrasound pelvis, and gynecologic evaluation and management as findings may reflect a low-grade enlarging cystic neoplasm. [place] neon sign erector Elizabeth Miranda confirmed receipt of these findings and recommendations with COLETTE Burgos RN at the office of ordering provider Luis Manuel Singh, at 2:30 PM 06/29/2023 with read back confirmation and it was ascertained that the content and urgency of the report was understood at the time of direct communication.
== END 2023-06-21 12:17 | disposition home or self-care (01) ==
LOC: HO.US 12:16
PROVIDERS: PCP Internal Medicine; Visit Provider Urology
DX: N39.41 Urge incontinence (principal); R35.1 Nocturia
CPT/HCPCS: 76775; 99212

== ENCOUNTER 2023-06-21 13:31 | Outpatient (AMB) | payer MEDICAID, SELFPAY ==
--- NOTE | 2023-06-21 15:46 | A.SPINEOV_ITS ---
Intake Intake Visit Reasons: discuss possible sx Intake Note: Ms. Sandy is here to discuss possible sx [employer] Required: No Allergies No Known Allergies Allergy (Verified 06/21/23 15:47) Assessment & Plan Assessment & Plan (1) Spondylolisthesis, lumbar region: Code(s): M43.16 - Spondylolisthesis, lumbar region Plan Mrs Sandy is back to see us after orthopedic evaluation. Dr Billingsley felt as though the pain coming down her leg into her groin and into her thigh was more consistent with lumbar origin than anything coming from the hip. I reviewed her x-rays and her MRI done at [place] with her again showing grade 1 spondylolisthesis with increased translation anteriorly with flexion almost to a grade 2 spondylolisthesis. She also has degenerative disc disease and moderate stenosis at L3-4. In light of the fact that she has the back pain and the leg pain with a dynamic instability, typically Dr. Hammond treat this with interbody fusion. The typical approaches he would choose would be either oblique lumbar or trans Kambin. We did briefly discuss risks benefits of surger y etc.. I will need to review the films with him for a final surgical opinion. If we did proceed with surgery the patient would have to stop her Humira 6 weeks before surgery to have time for it to clear out, and would need to stop her Trulicity 1 week before. I did discuss this with her. I will call her back once I have a chance to have a final surgical decision with Dr. Hammond. Total amount of time spent in this visit was 20 minutes in discussion of symptoms, lumbar MRI imaging results and subsequent plan of care Cj Hammond MD,PhD [facility] Coding Level of Care Code Est Pt Level 3 (35454) Diagnoses Spondylolisthesis, lumbar region M43.16
== END 2023-06-21 16:09 | disposition home or self-care (01) ==
PROVIDERS: PCP Internal Medicine; Visit Provider Physician Assistant
DX: M43.16 Spondylolisthesis, lumbar region (principal)
CPT/HCPCS: 99213

== ENCOUNTER 2023-06-30 11:12 | Outpatient (AMB) | payer MEDICAID, SELFPAY ==
--- NOTE | 2023-06-30 11:19 | A.OFFVIS_ITS ---
Intake VS Expanded 06/30/23 11:39 BP 131/66 Blood Pressure Location Rt brachial Blood Pressure Position Sitting Pulse 80 Pulse Source Pulse Oximeter Temp 97.5 F Temperature Source Tympanic Pulse Oximetry 97 Oxygen Delivery Method Room Air Height 5 ft 3.5 in Weight 161 lb 3.2 oz BMI 28.1 Body Fat % 25.9 Body Fat Mass 41.6 Fat Free Mass 119.4 Visceral Fat Rating 4.0 Body Water % 52.9 Body Water Mass 85.4 Muscle Mass/Score 113.6 Basal Metabolic Rate/Score 1,593 Intake Visit Reasons: (OV) PO LSG 05/13/21 Allergies No Known Allergies Allergy (Verified 06/30/23 11:51) Medication List - Last Reconciled 06/30/23 by KAYLEIGH Lord acetaminophen 500 mg PO TID PRN adalimumab (Humira) 40 mg subcut QWEEK amlodipine 5 mg PO QAM aripiprazole 2 mg PO DAILY betamethasone dipropionate 0.05% topical celecoxib 200 mg PO cetirizine 10 mg PO QAM chlorhexidine gluconate 4% (Hibiclens) topical DAILY cholecalciferol (vitamin D3) 25 mcg PO DAILY clonazepam 1 mg PO DAILY PRN clotrimazole 1% 1 appl topical BID dulaglutide (Trulicity) 1.5 mg subcut QWEEK duloxetine 30 mg PO BID gabapentin 300 mg PO BEDTIME 30 days hydroxyzine HCl mg PO incontinence pad, liner, disp (Dry Comfort pads) As directed lidocaine 5% (Lidoderm) 1 patch topical DAILY PRN MDD remove after 12 hours lidocaine 5% topical methocarbamol 750 mg PO Q8H PRN ondansetron HCl 8 mg PO Q8H PRN oxybutynin chloride ER 5 mg PO QAM oxycodone-acetaminophen 5-325 mg 1 tab PO Q6H PRN pantoprazole 20 mg PO BID solifenacin (Vesicare) 10 mg PO BEDTIME spironolactone 100 mg PO BID topiramate 50 mg PO BID valacyclovir 1 tab PO DAILY ziprasidone HCl 2 caps PO BEDTIME HPI HPI Comments History of Present Illness Details This?is a?42?yo female who is s/p LSG 05/13/2021. Seen in followup for ongoing issues of excess skin. Weight change of +4.8lbs since last OV 1 month ago. Weight has remained relatively stable for the last 3 months with less than 5% deviance. Olga has been on hold for 3 weeks already. Present meal plan includes: two Isopure shakes per day, unflavored, 1 scoop each; 1 15g protein bar (recommended Celebrate brand as she likes strawberry flavor), and one meal of 4 forks protein, 4 forks salad/veg Pt reports doing well on this meal plan, getting adequate protein. Pt reports ongoing problems of excess skin of abdomen, upper arms and upper legs. Pt reports rashes of excess skin of abdomen, painful and worse when weather is hot. Has tried a chafing deoderant stick which has not resolved the problem. More recently tried clotrimazole ointment and again this did not completely resolve the rashes. Moisture collects in skin fold and smells unpleasant so she has to wash multiple times a day. Has to wear compressive waistbands on her pants to hold excess skin in place. The excess skin is very heavy and worsens her back pain due to the weight of the skin in front of her body. Pt reports chafing and friction of excess skin of upper thighs. Chafing deodorant stick has not resolved these issues. Cannot wear shorts due to skin being on contact worsening the friction. Has tried shapewear to hold skin in place but this does not help as moisture will collect in the skin folds and fabric, and result in unpleasant odor. Movement and range of motion is limited due to the discomfort resulting from the excess skin, particularly considering her chronic pain and the weight of the excess skin. Pt reports issues of excess skin of upper arms. She has started to experience rashes and painful chafing where skin rubs against her torso. She has tried the prescription Rx cream given but this did not resolve the problem. Can only wear loose sleeves as tighter clothing irritates the skin. She finds walking to become more difficult because of the rubbing of the skin on her torso when her arms move. The heaviness of the excess skin causes worsening of her chronic pain. She recently found out she has worsening vertebrae problems in her neck and the weight of the excess skin of the arms has been pulling on this and causing increased discomfort. [facility] Medical History Intra-abdominal adhesions Depression Hidradenitis Abnormal EKG Bipolar 1 disorder Hx of borderline personality disorder ADHD Chronic post-traumatic stress disorder (PTSD) Pre-op evaluation Surgical History S/P laparoscopic sleeve gastrectomy Hx of esophagogastroduodenoscopy Gastric bypass status for obesity Family History Mother Obesity Diabetes mellitus Sister No problems noted. Son Leukemia Obesity Social History Are you a primary childcare center administrator to a significant other at home: No Do you presently have visiting nurse or other home services: No Alcohol intake: never Patient Tobacco Use Status: Never used Tobacco Advance Directives Date on File: 05/15/21 service: No Current occupational status: unemployed Assessment & Plan Assessment & Plan (1) Overweight: Code(s): E66.3 - Overweight (2) Excess skin: Code(s): L98.7 - Excessive and redundant skin and subcutaneous tissue (3) S/P laparoscopic sleeve gastrectomy: Comment: 05/13/21 Code(s): Z98.84 - Bariatric surgery status Plan Pt is interested in pursuing arms and abdomen skin removal first. Regarding abdomen, pt has been experiencing ongoing painful and malodorous rashes refractory to the use of topical Rx treatment. She is also experiencing ongoing pain and limitation of physical function due to the discomfort caused by the heaviness of the skin, and is experiencing worsening of her chronic pain. She would benefit from definitive treatment of panniculectomy. Regarding upper arms, pt has been experiencing ongoing chafing and painful rashes refractory to the use of topical Rx treatment. She is also experiencing ongoing pain and limitation of physical function due to the discomfort caused by the heaviness of the skin, including limitations of activities of daily living such as walking, and is experiencing worsening of her chronic pain. She would benefit from definitive treatment of brachioplasty. Photos taken today. Will submit to insurance for authorization of panniculectomy and brachioplasty. Patient is overweight and with ongoing issues of excess skin, and is not considered stable at this time. I spent a total of 30 minutes reviewing/updating records, examining the patient and counseling the patient on weight management as detailed above. Coding Level of Care Code Est Pt Level 4 (32955) Diagnoses Overweight E66.3 Excess skin L98.7 S/P laparoscopic sleeve gastrectomy Z98.84
[2023-06-30 11:39] VITALS: BP 131/66; PULSE 80; TEMP 36.4; O2SAT 97; BMI 28.1
== END 2023-06-30 12:03 | disposition home or self-care (01) ==
PROVIDERS: PCP Internal Medicine; Visit Provider Physician Assistant Surgical
DX: E66.3 Overweight (principal); L98.7 Excessive and redundant skin and subcutaneous tissue; Z98.84 Bariatric surgery status
CPT/HCPCS: 99214

== ENCOUNTER → 2023-06-30 11:12 | Outpatient (BNVA) | payer MEDICAID, SELFPAY | PROVIDERS: PCP Internal Medicine; Visit Provider Physician Assistant Surgical | DX: E66.3 Overweight (principal); L98.7 Excessive and redundant skin and subcutaneous tissue; L73.2 Hidradenitis suppurativa; K66.0 Peritoneal adhesions (postprocedural) (postinfection); Z68.28 Body mass index [BMI] 28.0-28.9, adult; Z98.84 Bariatric surgery status | CPT/HCPCS: 99212 ==

== ENCOUNTER 2023-07-20 11:23 | Outpatient (AMB) | payer MEDICAID, SELFPAY ==
--- NOTE | 2023-07-20 13:16 | A.OFFVIS_ITS ---
VS Expanded 07/20/23 13:18 Height 5 ft 3.5 in Weight 154 lb BMI 26.8 Intake Visit Reasons: TV Pannic/Brachio Consult *SEE COMMENTS* Allergies No Known Allergies Allergy (Verified 06/30/23 11:51) HPI HPI TV Pannic/Brachio Consult *SEE COMMENTS*: Details: Start time: 1.07pm, End time: 1.37pm ?I spent 25 minutes speaking with the patient on the phone plus an additional 5 minutes reviewing and updating records for a total of 30 minutes HPI Comments Details: This?is a?42?yo female who is s/p LSG 05/13/2021. Seen in followup for ongoing issues of excess skin. Overall weight loss since surgery: 107.4lbs, or 41.1% BWL Present meal plan includes: two Isopure shakes per day, unflavored, 1 scoop each in water; 1 15g protein bar (recommended Celebrate brand as she likes strawberry flavor), and one meal of 4 forks protein, 4 forks salad/veg Pt reports doing well on this meal plan, getting adequate protein. Pt reports ongoing problems of excess skin of abdomen, upper arms and upper legs. Pt reports rashes of excess skin of abdomen, painful and worse when weather is hot. Has tried a chafing deoderant stick which has not resolved the problem. More recently tried clotrimazole ointment and again this did not completely resolve the rashes. Moisture collects in skin fold and smells unpleasant so she has to wash multiple times a day. Has to wear compressive waistbands on her pants to hold excess skin in place. The excess skin is very heavy and worsens her back pain due to the weight of the skin in front of her body. Pt reports issues of excess skin of upper arms. She has started to experience rashes and painful chafing where skin rubs against her torso. She has tried the prescription Rx cream given but this did not resolve the problem. Can only wear loose sleeves as tighter clothing irritates the skin. She finds walking to become more difficult because of the rubbing of the skin on her torso when her arms move. The heaviness of the excess skin causes worsening of her chronic pain. She recently found out she has worsening vertebrae problems in her neck and the weight of the excess skin of the arms has been pulling on this and causing increased discomfort. [facility] Medical History Intra-abdominal adhesions Depression Hidradenitis Abnormal EKG Bipolar 1 disorder Hx of borderline personality disorder ADHD Chronic post-traumatic stress disorder (PTSD) Pre-op evaluation Surgical History S/P laparoscopic sleeve gastrectomy Hx of esophagogastroduodenoscopy Gastric bypass status for obesity Family History Mother Obesity Diabetes mellitus Sister No problems noted. Son Leukemia Obesity Social History Are you a primary emergency care attendant to a significant other at home: No Do you presently have visiting nurse or other home services: No Alcohol intake: never Patient Tobacco Use Status: Never used Tobacco Advance Directives Date on File: 05/15/21 service: No Current occupational status: unemployed Telehealth Telehealth Telehealth Platform: Telephone Location of provider rendering services: practice address Location of patient: address on file Patient Identification confirmed using: Name, : Yes Telehealth method: voice only Patient verbally consented to treatment: Yes Patient verbally consented to billing insurance company: Yes Patient informed of any privacy concerns related to visit: Yes Minutes spent on Phone/Video with Pt.: 30 Assessment & Plan Assessment & Plan (1) Panniculitis: Code(s): M79.3 - Panniculitis, unspecified Category: Medical Plan: 1. Plan for bilateral brachioplasty and panniculectomy. Risks of infection, bleeding, asymmetry, wound dehiscence and blood clots were discussed with the patient. 2. You will have a drain the abdomen that may stay a few weeks before it may be removed 3. You will need to be doing sponge baths the first 1-2 weeks. No showers. You need to have help at home to get you up and limit your activities as much as possible for at least the 4-6 weeks after surgery 4. We will arrange for a visiting nurse to come at home to help you with dressing changes and send me pictures of the procedures. We will send at your home supplies for the dressing changes. 5. Continue same nutritional plan of 2 Isopure shakes with one scoop each in water, one Celebrate protein bar and one meal (4 forks of protein and 4 forks of salad or vegetables) This will improve weight loss and healing after surgery. 6. Continue all vitamins 7. Risks and complications were discussed the possibility of bleeding that may require transfusion, loss of the umbilicus, wound dehiscence or infection, dog ears , flap asymmetry. We also discussed the importance of strict avoidance of weight lifting. . 8 aspirin, motrin, ibuprofen, Aleve, Advil, Naproxyn. Only Tylenol is OK
[2023-07-20 13:18] VITALS: BMI 26.8
== END 2023-07-20 13:38 | disposition home or self-care (01) ==
LOC: HO.HBS 11:23
PROVIDERS: PCP Internal Medicine; Visit Provider Surgery
DX: M79.3 Panniculitis, unspecified (principal); E66.3 Overweight; Z68.26 Body mass index [BMI] 26.0-26.9, adult; Z98.84 Bariatric surgery status
CPT/HCPCS: 99214

== ENCOUNTER → 2023-07-20 11:23 | Outpatient (BNVA) | payer MEDICAID, SELFPAY | PROVIDERS: PCP Internal Medicine; Visit Provider Surgery ==

== ENCOUNTER 2023-07-25 08:21 | Outpatient (AMB) | payer MEDICAID, SELFPAY ==
--- NOTE | 2023-07-25 08:26 | A.OFFVIS_ITS ---
Vital Signs 07/25/23 08:36 Height 5 ft 3.5 in Weight 156 lb 6 oz BMI 27.3 BP 144/88 H Blood Pressure Location Lt brachial Position Left Lateral Respiration 16 Pulse 71 Pulse Source Pulse Oximeter Pulse Oximetry (%) 100 Oxygen Delivery Method Room Air Intake Visit Reasons: Lower back pain goes down both legs Intake Note: Patient comes in for lower back pain that radiates down to bilateral legs. Reports pain 10/10. Allergies No Known Allergies Allergy (Verified 07/25/23 08:38) HPI Comments Details: Peri is very pleasant 42 years old female who is in my office for the follow- up and medication refill. In the past she received medial branch block with me in lower lumbar spine which did not alleviate her pain at all, she also received transforaminal epidural steroid injection (by Dr. Ferrer) which also resulted in no improvement. She is currently under observation of Dr. Hammond, she is planned to go for L4-5 posterior fusion. She is here to renew her medications. I will renew them with 12 refills. [facility] [place] Medical History Intra-abdominal adhesions Depression Hidradenitis Abnormal EKG Bipolar 1 disorder Hx of borderline personality disorder ADHD Chronic post-traumatic stress disorder (PTSD) Pre-op evaluation Surgical History S/P laparoscopic sleeve gastrectomy Hx of esophagogastroduodenoscopy Gastric bypass status for obesity Family History Mother Obesity Diabetes mellitus Sister No problems noted. Son Leukemia Obesity Social History Are you a primary foster care case manager to a significant other at home: No Do you presently have visiting nurse or other home services: No Alcohol intake: never Patient Tobacco Use Status: Never used Tobacco Advance Directives Date on File: 05/15/21 service: No Current occupational status: unemployed Review of Systems Const All systems reviewed & are unremarkable except as noted in HPI and below Physical Exam Vital Signs: Last Vital Signs Pulse 71 07/25/23 08:36 Resp 16 07/25/23 08:36 BP 144/88 H 07/25/23 08:36 Pulse Ox 100 07/25/23 08:36 Oxygen Delivery Method Room Air 07/25/23 08:36 BMI result Body Mass Index 27.3 General: Appears afebrile. Alert and oriented. Mood and affect appropriate. Follows and participates in conversation appropriately. Respiratory effort is unlabored. Able to transition from sit to stand unassisted. Ambulates with bilaterally normal heel strike and toe off Back/Spine/Pelvis Other: Lumbar extension and flexion reproduces significant pain. Right groin pain with I/E hip rotations. Multiple widespread TTPs 16/16 bilaterally, including upper and lower extremities. Cervical Spine: cervical ROM normal, cervical muscular tenderness and No Cervical spine tenderness Thoracic/Lumbar Spine: thoracic and lumbar spine normal to inspection, No Thoracic/lumbar spine scar(s), Lasegue's sign positive on the right and diffuse, paraspinal muscle tenderness, No thoracic spinal tenderness, lumbar spinal tenderness and straight leg raise positive right at 50 degrees Pelvis: buttock tenderness on the right Sacroiliac joints: bilaterally (+Marcus's test) tender to palpation Extrem General: Yes capillary refill normal, Yes no clubbing, cyanosis or edema and Yes no calf tenderness Right lower extremity: hip/thigh Details: tenderness (lateral hip); no swelling, no ecchymosis, no crepitus and no unusual warmth Results Reviewed Results Reviewed: MR LUMBAR SPINE WITHOUT CONTRAST 06/03/22 CLINICAL INFORMATION: Lower back pain with left-sided sciatica. COMPARISON: Plain films of the lumbar spine 07/16/2017. FINDINGS: VERTEBRAL BODIES AND PARASPINAL STRUCTURES: There is a mild grade 1 anterolisthesis of L4 on L5. There are retrolistheses of L1 on L2 and L3 on L4. There is multilevel narrowing of intervertebral disc height throughout the spine, sparing L5-S1. This is most severe at L1-L2 and L4-L5. Vertebral body heights are maintained, and no fractures are demonstrated. There are degenerative endplate contour changes with mild edematous signal at L3-L4. There is a Schmorl's node in superior endplate of L2 with mild edematous signal. Vertebral body heights are maintained and no fractures are demonstrated. Overall, marrow signal is homogenous. The visualized retroperitoneal structures are unremarkable. There is an incompletely visualized right ovarian cyst measuring up to 5.1 cm. CONUS MEDULLARIS AND CAUDA EQUINA: Normal, terminating at the level of T12-L1. The lower thoracic spinal cord appears normal. The cauda equina nerve roots and filum terminale appear normal. SPINAL LEVELS: T12-L1: The facet joints appear normal bilaterally. Disc contour is normal. There is no central stenosis or foraminal narrowing. L1-L2: There is mild bilateral facet arthropathy with ligamenta flava hypertrophy and small facet joint effusions. There is a shallow posterior disc protrusion without significant mass effect on the thecal sac extending into the inferior neural foramina without definite exiting nerve root impingement. There is no central stenosis. L2-L3: There is mild bilateral facet arthropathy. There is a small right foraminal disc protrusion with an annular fissure and there may be impingement on the exiting right L2 nerve root. The left neural foramen is patent, and there is no central stenosis. L3-L4: There is moderate bilateral facet arthropathy with ligamenta flava hypertrophy and facet joint effusions. There is a broad-based posterior disc protrusion which is focally more prominent in the midline with some distortion of the ventral thecal sac and there is narrowing of the subarticular recess on the left. There is mild central stenosis. There are bilateral foraminal disc protrusions extending far laterally, more prominent on the left and there is impingement on the exiting and extraforaminal L3 nerve roots, more severely on the left. L4-L5: There is severe bilateral facet arthropathy with ligamenta flava hypertrophy and facet joint effusions. There may be a small synovial cyst developing anteromedially off the left facet joint and there is some distortion of the dorsal thecal sac laterally on the left. There is unroofing of the disc as a result of the anterolisthesis. There are bilateral foraminal disc protrusions without definite exiting nerve root impingement. There is mild narrowing of the bilateral subarticular recesses, but there is no significant central stenosis. L5-S1: There is markedly severe right and severe left facet arthropathy. There is a shallow posterior disc protrusion without mass effect on the thecal sac and there is no central stenosis. There is no foraminal nerve root impingement IMPRESSION: 1. There is a grade 1 anterolisthesis of L4 on L5 secondary to facet arthropathy. There may be a small synovial cyst developing anteromedially on the left. There are bilateral foraminal disc protrusions without definite exiting nerve root impingement. There is no significant central stenosis. 2. At L3-L4 there is moderate facet arthropathy. There is a broad-based posterior disc protrusion extending far laterally with impingement on the exiting and extraforaminal L3 nerve roots, more severely on the left. There is mild central stenosis. 3. At L2-L3 there is a small right foraminal disc protrusion with an annular fissure and there may be impingement on the exiting right L2 nerve root. There is no central stenosis. 4. At L5-S1 there is markedly severe right and severe left facet arthropathy. There is no central stenosis or foraminal nerve root impingement. 5. There is a right sided ovarian cyst measuring up to 5.1 cm. Recommend prompt follow-up pelvic ultrasound. Assessment & Plan Assessment & Plan (1) Numbness and tingling in both hands: Code(s): R20.0 - Anesthesia of skin; R20.2 - Paresthesia of skin Category: Medical (2) Numbness and tingling of right leg: Code(s): R20.0 - Anesthesia of skin; R20.2 - Paresthesia of skin Category: Medical (3) Lumbar radiculopathy: Code(s): M54.16 - Radiculopathy, lumbar region Category: Medical (4) Lumbar facet arthropathy: Code(s): M47.816 - Spondylosis without myelopathy or radiculopathy, lumbar region Category: Medical (5) Right hip pain: Code(s): M25.551 - Pain in right hip Category: Medical Plan She is scheduled for neurosurgery procedure. Her medications will be refilled as below. She is welcome to come back if her pain persists after neurosurgical procedure. No new appointment for now will be scheduled. She would need to give us a call after surgery if she wants to continue with us. Medications: Changed From methocarbamol 750 mg PO Q8H PRN 90 tabs 3RF for muscle spasm M62.838 - Other muscle spasm To methocarbamol 750 mg PO Q8H PRN 90 tabs 12RF for muscle spasm 30 days M62.838 - Other muscle spasm From acetaminophen 500 mg PO TID PRN 90 tabs 3RF for pain M47.816 - Spondylosis without myelopathy or radiculopathy, lumbar region, M53.3 - Sacrococcygeal disorders, not elsewhere classified, M54.16 - Radiculopathy, lumbar region To acetaminophen 500 mg PO TID PRN 90 tabs 12RF for pain 30 days M47.816 - Spondylosis without myelopathy or radiculopathy, lumbar region, M53.3 - Sacrococcygeal disorders, not elsewhere classified, M54.16 - Radiculopathy, lumbar region Refilled gabapentin 300 mg PO BEDTIME 30 caps 12RF pain 30 days M54.16 - Radiculopathy, lumbar region, M79.7 - Fibromyalgia Coding Level of Care Code Est Pt Level 3 (33961) Diagnoses Numbness and tingling in both hands R20.0; R20.2 Numbness and tingling of right leg R20.0; R20.2 Lumbar radiculopathy M54.16 Lumbar facet arthropathy M47.816 Right hip pain M25.551
[2023-07-25 08:36] VITALS: BP 144/88; PULSE 71; RESP 16; O2SAT 100; BMI 27.3
== END 2023-07-25 09:21 | disposition home or self-care (01) ==
PROVIDERS: PCP Internal Medicine; Referring Provider Internal Medicine; Visit Provider Anesthesiology
DX: R20.0 Anesthesia of skin (principal); R20.2 Paresthesia of skin; M54.16 Radiculopathy, lumbar region; M47.816 Spondylosis without myelopathy or radiculopathy, lumbar region; M25.551 Pain in right hip
CPT/HCPCS: 99213

== ENCOUNTER → 2023-07-25 08:21 | Outpatient (BNVA) | payer MEDICAID, SELFPAY | PROVIDERS: PCP Internal Medicine; Visit Provider Anesthesiology | DX: M25.551 Pain in right hip (principal); M54.16 Radiculopathy, lumbar region; M47.816 Spondylosis without myelopathy or radiculopathy, lumbar region; R20.0 Anesthesia of skin; R20.2 Paresthesia of skin | CPT/HCPCS: 99212 ==

== ENCOUNTER 2023-08-10 13:06 | Outpatient (AMB) | payer MEDICAID, SELFPAY ==
[2023-08-10 15:55] VITALS: BMI 27.2
--- NOTE | 2023-08-10 15:55 | MHC.OFFVISWM ---
VS Expanded 08/10/23 15:55 Height 5 ft 3.5 in Weight 156 lb BMI 27.2 Intake Visit Reasons: TV Pre Op Panniculectomy 08/16/23 Allergies No Known Allergies Allergy (Verified 08/10/23 15:56) Medication List - Last Reconciled 08/10/23 by Mart Faulkner MD acetaminophen 500 mg PO TID PRN 30 days amlodipine 5 mg PO QAM betamethasone dipropionate 0.05% 1 topical DAILY PRN celecoxib 200 mg PO DAILY cephalexin 500 mg PO Q12H cetirizine 10 mg PO QAM cholecalciferol (vitamin D3) 25 mcg PO DAILY clonazepam 1 mg PO DAILY PRN docusate sodium (Colace) 100 mg PO DAILY dulaglutide (Trulicity) 3 mg subcut QWEEK duloxetine 30 mg PO BID hydroxyzine HCl 25 mg PO BEDTIME incontinence pad, liner, disp (Dry Comfort pads) As directed lidocaine 5% (Lidoderm) 1 patch topical DAILY PRN MDD remove after 12 hours lidocaine 5% 1 appl topical DAILY PRN methocarbamol 750 mg PO Q8H PRN 30 days ondansetron HCl 8 mg PO Q8H PRN oxybutynin chloride ER 5 mg PO QAM oxycodone-acetaminophen 7.5-325 mg 1 tab PO Q6H PRN pantoprazole 20 mg PO BID PRN solifenacin (Vesicare) 10 mg PO BEDTIME spironolactone 100 mg PO BID ziprasidone HCl 2 caps PO BEDTIME HPI HPI TV Pre Op Panniculectomy 08/16/23: Details: Start time: 2pm, End time: 2.30pm ?I spent 20 minutes speaking with the patient on the phone plus an additional 10 minutes reviewing and updating records for a total of 30 minutes HPI Comments Details: Overall weight loss: 107lbs, or 41% TBWL Is doing two Isopure protein shakes (half scoop each in water), 2 Celebrate protein bars and one meal PFSH Medical History (Updated 08/10/23 @ 15:54 by Mart Faulkner MD) Postgastrectomy malabsorption History of headache Arthritis Fibromyalgia HTN (hypertension) Intra-abdominal adhesions Depression Hidradenitis Abnormal EKG Bipolar 1 disorder Hx of borderline personality disorder ADHD Chronic post-traumatic stress disorder (PTSD) Pre-op evaluation Surgical History S/P laparoscopic sleeve gastrectomy Hx of esophagogastroduodenoscopy Gastric bypass status for obesity Family History Mother Obesity Diabetes mellitus Sister No problems noted. Son Leukemia Obesity Social History Are you a primary career development coordinator/teacher to a significant other at home: No Do you presently have visiting nurse or other home services: No Alcohol intake: never Patient Tobacco Use Status: Never used Tobacco Advance Directives Date on File: 05/15/21 service: No Current occupational status: unemployed Telehealth Telehealth Telehealth Platform: Telephone Location of provider rendering services: practice address Location of patient: address on file Patient Identification confirmed using: Name, : Yes Telehealth method: voice only Patient verbally consented to treatment: Yes Patient verbally consented to billing insurance company: Yes Patient informed of any privacy concerns related to visit: Yes Minutes spent on Phone/Video with Pt.: 30 Assessment & Plan Assessment & Plan (1) Excess skin: Code(s): L98.7 - Excessive and redundant skin and subcutaneous tissue Category: Medical Plan: 1. Plan for panniculectomy. Risks of infection, bleeding, asymmetry, wound dehiscence and blood clots were discussed with the patient. 2. You will have a drain the abdomen that may stay a few weeks before it may be removed 3. You will need to be doing sponge baths the first 1-2 weeks. No showers. You need to have help at home to get you up and limit your activities as much as possible for at least the 4-6 weeks after surgery 4. We will arrange for a visiting nurse to come at home to help you with dressing changes and send me pictures of the procedures. We will send at your home supplies for the dressing changes. 5. Continue present nutritional plan of two Isopure protein shakes (half scoop each in water), 2 Celebrate protein bars and one meal. This will improve weight loss and healing after surgery. 6. Continue all vitamins 7. Stop Celexocib and Gabapentin as of tomorrow 08/11/23. 8. Do blood work not fasting any day between tomorrow 08/11/23 and Tuesday08/12/23 and mixing picker tender the antibiotic prescription from your pharmacy 9. Risks and complications were discussed the possibility of bleeding that may require transfusion, loss of the umbilicus, wound dehiscence or infection, dog ears , flap asymmetry. We also discussed the importance of strict avoidance of weight lifting. 10. Avoid aspirin, motrin, ibuprofen, Aleve, Advil, Naproxyn. Only Tylenol is OK Orders: Orders Comprehensive Met. Panel Today K91.2 - Postsurgical malabsorption, not elsewhere classified, Z90.3 - Acquired absence of stomach [part of] Vitamin A Today K91.2 - Postsurgical malabsorption, not elsewhere classified, Z90.3 - Acquired absence of stomach [part of] Hemoglobin A1c Today K91.2 - Postsurgical malabsorption, not elsewhere classified, Z90.3 - Acquired absence of stomach [part of] Prothrombin Time INR Today K91.2 - Postsurgical malabsorption, not elsewhere classified, Z90.3 - Acquired absence of stomach [part of] Vitamin B1 Today K91.2 - Postsurgical malabsorption, not elsewhere classified, Z90.3 - Acquired absence of stomach [part of] Lipid Panel Today K91.2 - Postsurgical malabsorption, not elsewhere classified, Z90.3 - Acquired absence of stomach [part of] Type and Screen Today K91.2 - Postsurgical malabsorption, not elsewhere classified, Z90.3 - Acquired absence of stomach [part of] Vitamin B12 Today K91.2 - Postsurgical malabsorption, not elsewhere classified, Z90.3 - Acquired absence of stomach [part of] Partial Thromboplastin Time Today K91.2 - Postsurgical malabsorption, not elsewhere classified, Z90.3 - Acquired absence of stomach [part of] Vitamin D 25-OH Total Today K91.2 - Postsurgical malabsorption, not elsewhere classified, Z90.3 - Acquired absence of stomach [part of] Complete Blood Count Auto Diff Today K91.2 - Postsurgical malabsorption, not elsewhere classified, Z90.3 - Acquired absence of stomach [part of] Ferritin Today K91.2 - Postsurgical malabsorption, not elsewhere classified, Z90.3 - Acquired absence of stomach [part of] TSH reflex Free T4 Today K91.2 - Postsurgical malabsorption, not elsewhere classified, Z90.3 - Acquired absence of stomach [part of] C Reactive Protein Today K91.2 - Postsurgical malabsorption, not elsewhere classified, Z90.3 - Acquired absence of stomach [part of] Zinc Today K91.2 - Postsurgical malabsorption, not elsewhere classified, Z90.3 - Acquired absence of stomach [part of] IRON PROFILE Today K91.2 - Postsurgical malabsorption, not elsewhere classified, Z90.3 - Acquired absence of stomach [part of] Medications: New cephalexin 500 mg PO Q12H 60 caps 2RF M79.3 - Panniculitis, unspecified docusate sodium (Colace) 100 mg PO DAILY 90 caps 0RF K59.00 - Constipation, unspecified
== END 2023-08-10 16:09 | disposition home or self-care (01) ==
LOC: HO.HBS 13:07
PROVIDERS: PCP Internal Medicine; Referring Provider Internal Medicine; Visit Provider Surgery
DX: L98.7 Excessive and redundant skin and subcutaneous tissue (principal)
CPT/HCPCS: 99214

== ENCOUNTER → 2023-08-10 13:06 | Outpatient (BNVA) | payer MEDICAID, SELFPAY | PROVIDERS: PCP Internal Medicine; Visit Provider Surgery ==

== ENCOUNTER → 2023-08-11 10:56 | Outpatient (BNVA) | payer MEDICAID, SELFPAY | PROVIDERS: PCP Internal Medicine; Visit Provider Surgery ==

== ENCOUNTER 2023-08-16 09:04 | Day surgery (SDC) | payer MEDICAID, SELFPAY ==
[2023-08-10 12:52] VITALS: BMI 26.7
[2023-08-13 07:25] LABS: MANUAL DIFF FLAG NO
[2023-08-13 08:43] LABS: Basophils Absolute Auto 0.1 X10*3/uL (0.0-0.2); Eosinophils Absolute Auto 0.1 X10*3/uL (0.0-0.4); Eosinophils Percent Auto 1.9 % (0-4); Hematocrit 42.7 % (37.0-47.0); Hemoglobin 14.3 g/dl (12.0-16.0); Imm Gran Abs Auto 0.02 X10*3/uL (0.00-0.03); Imm Gran Pct Auto 0.3 % (0.0-0.4); Mean Corpuscular HGB Conc 33.5 g/dl (31.0-35.0); Mean Corpuscular Hemoglobin 32.8 pg (27.0-33.0); Mean Corpuscular Volume 97.9 fL (80.0-98.0); Mean Platelet Volume 9.7 fL (9.4-12.3); Monocytes Absolute Auto 0.5 X10*3/uL (0.1-1.2); Monocytes Percent Auto 6.5 % (2-11); Neutrophils Absolute Auto 3.6 x10*3/uL (2.0-8.3); Neutrophils Percent Auto 49.3 % (45-73); Platelet Count 379 X10*3/uL (160-400); Red Blood Count 4.36 X10*6/uL (4.20-5.50); Red Cell Distribution Width 13.2 % (11.0-16.0); White Blood Count 7.3 X10*3/uL (4.8-10.8)
[2023-08-13 08:48] LABS: INTERNATIONAL NORM RATIO 0.9 (0.9-1.1); Prothrombin Time 10.5 SEC (11.1-13.3)
[2023-08-13 08:51] LABS: Partial Thromboplastin Time 28.4 SEC (26.0-36.8)
[2023-08-13 09:25] LABS: Alanine Aminotransferase 28 U/L (0-31); Albumin Level 4.5 g/dL (3.5-5.0); Alkaline Phosphatase 59 U/L (39-117); Anion Gap 12 (12-20); Aspartate Amino Transferase 28 U/L (5-31); Bilirubin Total 0.2 mg/dL (0.0-1.0); Blood Urea Nitrogen 12 mg/dL (9-16); C Reactive Protein < 0.10 mg/dL (< or = 0.50); Calcium 9.7 mg/dL (8.4-10.2); Carbon Dioxide 26 mmol/L (22-29); Chloride 106 mmol/L (96-108); Cholesterol 173 mg/dL (<200); Creatinine Clr Calc Pharmacy 89.3; Estimated Glomerular Filt Rate > 60; Glucose Random 93 mg/dL (60-115); HDL Cholesterol 69 mg/dL (>40); Iron 89 mcg/dL (30-160); LDL Cholesterol Calculated 82 mg/dL (<100); Percent Iron Saturation 24 % (15-50); Potassium 4.4 mmol/L (3.3-5.1); Sodium 140 mmol/L (135-145); Total Iron Binding Capacity 378 mcg/dL (228-428); Total Protein 7.7 g/dL (6.5-8.0); Triglycerides 111 mg/dL (<150); Unsaturated Iron Binding 289 ug/dL
[2023-08-13 09:30] LABS: Estimated Average Glucose 91 mg/dL; Hemoglobin A1c % 4.8 % (<6.0)
[2023-08-13 09:38] LABS: Vitamin B12 561 pg/mL (200-900)
[2023-08-13 09:58] LABS: Ferritin 37 ng/mL (10-250); TSH reflex Free T4 3.94 uIU/mL (0.32-4.0); Vitamin D 25-OH Total 36.8 ng/mL (>30)
[2023-08-16] VITALS (10 sets, daily range): BP systolic 97–122; BP diastolic 56–80; PULSE 76–108; RESP 16; TEMP 36.7–36.9; O2SAT 97–100
[2023-08-16] MEDS: Aprepitant 32 MG/4.4 ML VIAL IVPUSH (09:32)
[2023-08-16] MEDS: Lactated Ringers 1,000 ML 100 ML IVCONT (09:32)
[2023-08-16 09:39] LABS: UPreg QC Valid YES; Urine Pregnancy NEGATIVE (NEGATIVE)
--- NOTE | 2023-08-16 11:10 | P.CONAN_ITS ---
Documented by User: Reena Squires NP 08/15/23 08:47 HPI - Anesthesia Eval Consult details Narrative: 43yo F for Panniculectomy PMFSH Active Problems Active Problems: All Active Problems Postgastrectomy malabsorption (Acute) Ovarian cyst (Acute) Panniculitis (Acute) Spondylolisthesis, lumbar region (Acute) Right hip pain (Acute) Numbness and tingling of right leg (Acute) Numbness and tingling in both hands (Acute) Lumbar radiculopathy (Acute) Microscopic hematuria (Acute) Overweight (Acute) Excess skin (Acute) Neck pain (Acute) Urge incontinence of urine (Acute) Nocturia (Acute) Fibromyalgia, primary (Acute) Arthritis of right shoulder region (Acute) Impingement syndrome of right shoulder (Acute) Polyarthralgia (Acute) Sacroiliac joint pain (Acute) Lumbar facet arthropathy (Acute) Lumbar back pain with radiculopathy affecting left lower extremity (Acute) BMI 38.0-38.9,adult (Acute) Obesity (Acute) Morbid obesity (Acute) Intra-abdominal adhesions (Acute) S/P laparoscopic sleeve gastrectomy (Acute) Gastric bypass status for obesity (Acute) Past Medical History Medical History Postgastrectomy malabsorption History of headache Arthritis Fibromyalgia HTN (hypertension) Intra-abdominal adhesions Depression Hidradenitis Abnormal EKG Bipolar 1 disorder Hx of borderline personality disorder ADHD Chronic post-traumatic stress disorder (PTSD) Pre-op evaluation Family History Family History Mother Obesity Diabetes mellitus Sister No problems noted. Son Leukemia Obesity Family history of problems with anesthesia: No Surgical History Surgical History S/P laparoscopic sleeve gastrectomy Hx of esophagogastroduodenoscopy Gastric bypass status for obesity History of Problems with Anesthesia: No Social History Social History Are you a primary school childcare attendant to a significant other at home: No Do you presently have visiting nurse or other home services: No Alcohol intake: never Patient Tobacco Use Status: Never used Tobacco Use of substances other than those prescribed or required for medical reasons: No Have you been hit, kicked, punched, or otherwise hurt by someone within the past year? If so, by whom?: No Are you DNR?: No Advance Directives: No Advance Directives Information Provided: Yes Advance Directives on File: Yes Advance Directives Date on File: 05/15/21 Recently lost weight without trying: No Eating poorly because of decreased appetite: No Nutrition Risks: No Nutritional Risk Patient : No : No Poor oral hygiene: Yes (crowns upper and lower) service: No Current occupational status: unemployed Meds Allergies Allergy/AdvReac Type Severity Reaction Status Date / Time No Known Allergies Allergy Verified 08/16/23 09:35 Home Medications ?Medication ?Instructions ?Recorded ?Confirmed ?Last Taken ?Type spironolactone 100 mg tablet 100 mg PO BID 01/28/21 08/16/23 08/15/23 History ziprasidone HCl 80 mg capsule 2 cap PO BEDTIME 05/08/21 08/16/23 08/15/23 History amlodipine 5 mg tablet 5 mg PO QAM 07/23/22 08/16/23 08/16/23 History lidocaine 5 % topical ointment 1 appl topical DAILY PRN mild pain 07/23/22 08/10/23 Unknown History celecoxib 200 mg capsule 200 mg PO DAILY moderate pain 07/29/22 08/16/23 08/02/23 History betamethasone dipropionate 0.05 % 1 topical DAILY PRN Rash 08/19/22 08/10/23 Unknown History topical ointment cetirizine 10 mg tablet 10 mg PO QAM 08/19/22 08/16/23 08/16/23 History ondansetron HCl 4 mg tablet 8 mg PO Q8H PRN nausea/vomiting 12/02/22 08/10/23 Unknown History clonazepam 1 mg tablet 1 mg PO DAILY PRN anxiety 05/13/23 08/10/23 Unknown History duloxetine 30 mg capsule,delayed 30 mg PO BID 05/13/23 08/16/23 08/16/23 History release hydroxyzine HCl 25 mg tablet 25 mg PO BEDTIME 05/13/23 08/16/23 08/15/23 History oxybutynin chloride 5 mg 5 mg PO QAM 05/13/23 08/16/23 08/16/23 History tablet,extended release 24 hr dulaglutide 3 mg/0.5 mL 3 mg subcut QWEEK 08/10/23 08/16/23 08/02/23 History subcutaneous pen injector (Trulicity) oxycodone-acetaminophen 7.5 mg-325 1 tab PO Q6H PRN severe pain 08/10/23 08/10/23 Unknown History mg tablet pantoprazole 20 mg tablet,delayed 20 mg PO BID PRN Acid Reflux 08/10/23 08/16/23 08/16/23 History release Exam Height,Weight and Vital Signs: Height 5 ft 3 in Weight 68.492 kg Pertinent Lab Results Pertinent Lab Results: Lab Results 08/13/23 08/13/23 Range/Units 07:18 07:23 WBC 7.3 (4.8-10.8) X10*3/uL RBC 4.36 (4.20-5.50) X10*6/uL Hgb 14.3 (12.0-16.0) g/dl Hct 42.7 (37.0-47.0) % MCV 97.9 (80.0-98.0) fL MCH 32.8 (27.0-33.0) pg MCHC 33.5 (31.0-35.0) g/dl RDW 13.2 (11.0-16.0) % Plt Count 379 D (160-400) X10*3/uL MPV 9.7 (9.4-12.3) fL Immature Gran % (Auto) 0.3 (0.0-0.4) % Neut % (Auto) 49.3 (45-73) % Lymph % (Auto) 41.0 H (20-40) % [place] % (Auto) 6.5 (2-11) % Eos % (Auto) 1.9 (0-4) % Baso % (Auto) 1.0 (0-2) % Lymph # (Auto) 3.0 (1.2-4.9) X10*3/uL [place] # (Auto) 0.5 (0.1-1.2) X10*3/uL Eos # (Auto) 0.1 (0.0-0.4) X10*3/uL Baso # (Auto) 0.1 (0.0-0.2) X10*3/uL Abs Immat Gran (auto) 0.02 (0.00-0.03) X10*3/uL Absolute Neuts (auto) 3.6 (2.0-8.3) x10*3/uL Absolute Nucleated RBC 0.000 (0.0-0.012) X10*3/uL Nucleated RBC % (auto) 0.0 (0.0-0.2) /100WBC PT 10.5 L (11.1-13.3) SEC INR 0.9 (0.9-1.1) APTT 28.4 (26.0-36.8) SEC Sodium 140 (135-145) mmol/L Potassium 4.4 (3.3-5.1) mmol/L Chloride 106 (96-108) mmol/L Carbon Dioxide 26 (22-29) mmol/L Anion Gap 12 (12-20) BUN 12 (9-16) mg/dL Creatinine 0.77 (0.5-1.4) mg/dL Estim Creat Clear Calc 89.3 Estimated GFR > 60 Random Glucose 93 (60-115) mg/dL Estimat Average Glucose 91 mg/dL Hemoglobin A1c % 4.8 (<6.0) % Calcium 9.7 (8.4-10.2) mg/dL Iron 89 (30-160) mcg/dL TIBC 378 (228-428) mcg/dL % Saturation 24 (15-50) % Unsat Iron Binding 289 ug/dL Ferritin 37 (10-250) ng/mL Total Bilirubin 0.2 (0.0-1.0) mg/dL AST 28 (5-31) U/L ALT 28 (0-31) U/L Alkaline Phosphatase 59 (39-117) U/L C-Reactive Protein < 0.10 (< or = 0.50) mg/dL Total Protein 7.7 (6.5-8.0) g/dL Albumin 4.5 (3.5-5.0) g/dL Triglycerides 111 (<150) mg/dL Cholesterol 173 (<200) mg/dL LDL Cholesterol, Calc 82 (<100) mg/dL HDL Cholesterol 69 (>40) mg/dL Vitamin B12 561 (200-900) pg/mL 25-OH Vitamin D Total 36.8 (>30) ng/mL TSH 3.94 (0.32-4.0) uIU/mL Blood Type O Positive Antibody Screen NEGATIVE Narrative Narrative: EKG 2021 Vent. Rate : 075 BPM Atrial Rate : 075 BPM P-R Int : 180 ms QRS Dur : 094 ms QT Int : 392 ms P-R-T Axes : 039 036 021 degrees QTc Int : 437 ms Normal sinus rhythm Nonspecific T wave abnormality Abnormal ECG No previous ECGs available Assessment and Plan Assessment Anesthesia Assessment: Chart Reviewed Final Anesthetic Review Family History of Problems with Anesthesia: No History of Problems with Anesthesia: No Documented by User: Miriam Sousa DO 08/16/23 11:12 HPI - Anesthesia Eval Anesthesia Pre-Procedure Meds Is the patient on any of the following meds?: GLP1/DPP4 If yes to any meds - educate patient: Pt education - increased risk of aspiration and/or euvolemic DKA PMFSH Past Medical History Medical History Postgastrectomy malabsorption History of headache Arthritis Fibromyalgia HTN (hypertension) Intra-abdominal adhesions Depression Hidradenitis Abnormal EKG Bipolar 1 disorder Hx of borderline personality disorder ADHD Chronic post-traumatic stress disorder (PTSD) Pre-op evaluation Family History Family History Mother Obesity Diabetes mellitus Sister No problems noted. Son Leukemia Obesity Family history of problems with anesthesia: No Surgical History Surgical History S/P laparoscopic sleeve gastrectomy Hx of esophagogastroduodenoscopy Gastric bypass status for obesity History of Problems with Anesthesia: No Social History Social History Are you a primary school childcare attendant to a significant other at home: No Do you presently have visiting nurse or other home services: No Alcohol intake: never Patient Tobacco Use Status: Never used Tobacco Use of substances other than those prescribed or required for medical reasons: No Have you been hit, kicked, punched, or otherwise hurt by someone within the past year? If so, by whom?: No Are you DNR?: No Advance Directives: No Advance Directives Information Provided: Yes Advance Directives on File: Yes Advance Directives Date on File: 05/15/21 Recently lost weight without trying: No Eating poorly because of decreased appetite: No Nutrition Risks: No Nutritional Risk Patient : No : No Poor oral hygiene: Yes (crowns upper and lower) service: No Current occupational status: unemployed Meds Allergies Allergy/AdvReac Type Severity Reaction Status Date / Time No Known Allergies Allergy Verified 08/16/23 09:35 Home Medications ?Medication ?Instructions ?Recorded ?Confirmed ?Last Taken ?Type spironolactone 100 mg tablet 100 mg PO BID 01/28/21 08/16/23 08/15/23 History ziprasidone HCl 80 mg capsule 2 cap PO BEDTIME 05/08/21 08/16/23 08/15/23 History amlodipine 5 mg tablet 5 mg PO QAM 07/23/22 08/16/23 08/16/23 History lidocaine 5 % topical ointment 1 appl topical DAILY PRN mild pain 07/23/22 08/10/23 Unknown History celecoxib 200 mg capsule 200 mg PO DAILY moderate pain 07/29/22 08/16/23 08/02/23 History betamethasone dipropionate 0.05 % 1 topical DAILY PRN Rash 08/19/22 08/10/23 Unknown History topical ointment cetirizine 10 mg tablet 10 mg PO QAM 08/19/22 08/16/23 08/16/23 History ondansetron HCl 4 mg tablet 8 mg PO Q8H PRN nausea/vomiting 12/02/22 08/10/23 Unknown History clonazepam 1 mg tablet 1 mg PO DAILY PRN anxiety 05/13/23 08/10/23 Unknown History duloxetine 30 mg capsule,delayed 30 mg PO BID 05/13/23 08/16/23 08/16/23 History release hydroxyzine HCl 25 mg tablet 25 mg PO BEDTIME 05/13/23 08/16/23 08/15/23 History oxybutynin chloride 5 mg 5 mg PO QAM 05/13/23 08/16/23 08/16/23 History tablet,extended release 24 hr dulaglutide 3 mg/0.5 mL 3 mg subcut QWEEK 08/10/23 08/16/23 08/02/23 History subcutaneous pen injector (Trulicity) oxycodone-acetaminophen 7.5 mg-325 1 tab PO Q6H PRN severe pain 08/10/23 08/10/23 Unknown History mg tablet pantoprazole 20 mg tablet,delayed 20 mg PO BID PRN Acid Reflux 08/10/23 08/16/23 08/16/23 History release Exam Exam Date and Time: August 16, 2023 1110 Height,Weight and Vital Signs: Height 5 ft 3 in Weight 68.492 kg Height 5 ft 3 in Weight 68.492 kg Vital Signs Temperature 98.1 F 08/16/23 09:29 Pulse Rate 76 08/16/23 09:29 Respiratory Rate 16 08/16/23 09:29 Blood Pressure 112/80 08/16/23 09:29 Pulse Oximetry 98 08/16/23 09:29 Oxygen Delivery Method Room Air 08/16/23 09:29 Temperature 98.1 F 08/16/23 09:29 Pulse Rate 76 08/16/23 09:29 Respiratory Rate 16 08/16/23 09:29 Blood Pressure 112/80 08/16/23 09:29 Pulse Oximetry 98 08/16/23 09:29 Oxygen Delivery Method Room Air 08/16/23 09:29 Airway Mallampati Class: I TM Dist: >3cm Neck ROM: Full Loose/Missing/Broken Teeth: Yes (broken molar left side, otherwise no loose teeth) Heart: S1S2 Lungs: CTAB Assessment and Plan Assessment Anesthesia Assessment: Anesthesia Plan Discussed and Chart Reviewed Final Anesthetic Review Family History of Problems with Anesthesia: No History of Problems with Anesthesia: No NPO: Yes ASA Class: III Final Preanesthetic Review: No Changes in Pt Med Stat, Meds/Allgs Chart Reviewed, Consent Obtained/Reviewed and Anes Risks/Benef Reviewed Patient Risk: Low Procedure Risk: Low Anesthetic Plan Anesthetic Plan: GA and Agree w/ Assess. and Plan Disposition: Standard PACU
--- NOTE | 2023-08-16 11:29 | P.BOP_ITS ---
Brief Operative Note Date of Service: 08/16/23 Pre-op diagnosis: Excess skin Post-op diagnosis: same Procedure: PROCEDURE: Panniculectomy with umbilical transposition and bilateral subcutaneous fat flaps INDICATION: This a 43 year old female who underwent laparoscopic sleeve gastrectomy on 05/13/2021. She had an excellent result achieving a BMI of 26.9 kg/m2 with a total weight loss of 107.4lbs, or 41% of her TBWL. As a result, she has developed panniculitis which has not resolved despite continuous use of clotrimazole ointment as well as skin irritation. On exam she has extreme skin laxity due to massive weight loss, with the abdominal pannus completely hanging 4cm below the pubis. Panniculectomy was recommended. We discussed the two options for the panniculectomy of using a combined vertical and horizontal incisions or just a horizontal (bikini) incision. It was my recommendation to do only horizontal incision based on her body habitus and skin laxity. The patient agreed with this. Risks and complications were discussed with the patient including bleeding, infection, umbilical loss, flap necrosis, asymmetry, dehiscence, seroma, VTE. The patient understood the risks and was in agreement to proceed with surgery. PROCEDURE: The incisions were appropriately marked at the preop area with the patient standing and laying down. After induction of general anesthesia a Chery catheter and pneumatic compression devices were placed. The patient was prepped and draped in the usual sterile manner and the incisions were marked again and confirmed. The skin was infiltrated with lidocaine and epinephrine. The #10 blade scalpel was used for the large incisions and the #15 blade scalpel for the umbilicus. Cautery was used to divide the subcutaneous tissues until the fascia was identified. Then I used the cautery to separate the pannus from the fascia. The inferior incision was made initially and I mobilized the flap for a several centimeters cephalad to the umbilicus. The umbilicus was incised circumferentially and detached from the surrounding tissues all the way to the fascia while its stalk was preserved. With the patient in reflex position I confirmed that the skin flaps were appropriate and would allow for the tissues to come together with reasonable tension. At that point a horizontal incision was made 4 cm above the umbilicus. #10 blade was used for the skin, cautery for the dermis and for the remaining tissues. A subcutaneous fat flap was raised from the upper skin flap in order to fill the space under the skin and support the closure of the two flaps. In addition the inferior flap was mobilized caudally for a few centimeters to create a space for the subcutaneous fat flap as well as relieve tension from the closure. A circumferential incision was made at the area where the umbilicus would be re-implanted. The umbilicus was appropriately oriented and was delivered through the defect and was secured in place with a Foss. No bleeding was noted anywhere. One CARIDAD drain was placed from the left corner of the horizontal incision across the wound and was secured in place with a silk suture. A total of 7ml of Zynrelef was applied on top of the fascia and under the subcutaneous fat flaps. The subcutaneous fat flap was secured under the inferior flap with several interrupted 3.0 Monocryl sutures. The two flaps were brought together and were attached at the midline of the horizontal incision with a #3.0 Monocryl suture. At that point the umbilicus was properly oriented and was re-approximated to the skin with 8 interrupted 3.0 Monocryl sutures. In a similar fashion the skin flaps were re-approximated with multiple 3.0 Monocryl sutures. The skin was closed in all incisions and umbilicus with 4.0 Monocryl sutures. Steri-strips, xeroform gauzes and gauzes were used to cover the incisions. An abdominal binder was also placed. The was awaken and was transferred to the recover room in a stable condition. I was present and performed the entire procedure. Leeann was the application assistant. Jamar Faulkner MD, PhD, FACS Surgeon: Mart Faulkner MD Anesthesia: GETA, local and other (7ml Zynrelef) Was an Weigher Alloy used for this Procedure?: No Weigher Alloy: Cira Bradshaw Estimated blood loss (mL): 10 IV fluids (mL): 2,000 Urine output (mL): 200 Pathology: other (abdominal pannus) Condition: stable Disposition: PACU
--- NOTE | 2023-08-16 11:41 | MHC.SHP ---
Pre-Procedural Eval Section A - 24 Hr Update-Section A only Date of Service: 08/16/23 The patient is an INPATIENT: No The patient has been examined within 24 hours of the surgical procedure. The History & Physical has been completed within 30 days and I have reviewed it.: No Section B - Complete if H&P > 30 days Chief Complaint: Excessive and redundant skin and subcutaneous Relevant Family History (Specify if Yes): No Relevant Social History: None Present Medications: None Medical History: No relevant PMH History of Previous Operations: Relevant previous surgery/procedure and date(s) (lap sleeve gastrectomy) Allergies: Allergies Allergy/AdvReac Type Severity Reaction Status Date / Time No Known Allergies Allergy Verified 08/16/23 09:35 Review of Systems Sugical H&P ROS: Negative: Constitution, Cardiovascular, Respiratory, Neurological, Psychiatric, Hem-Onc, Allergic/Immunologic, Gastrointestinal, Genitourinary, Musculoskeletal, Integumentary, Endocrine and Eyes/Ears/Nose/Throat Exam Surgical H&P Exam: Normal: HEENT, Normal: Heart, Normal: Lungs, Normal: Extremities, Normal: Abdomen, Normal: Skin and Normal: Neurological Plan Diagnosis/Plan: Unchanged I have reviewed the history and physical and performed a pertinent physical examination on my patient. No changes have occurred unless specified. Time Spent With Patient Time: Total time managing care of this patient today ____ minutes.
[2023-08-16 12:18] LABS: Zinc 102 mcg/dL (60-130)
--- NOTE | 2023-08-16 15:30 | P.F2F_ITS ---
Service Date Service Date: 08/16/23 Encounter Date of encounter: 08/16/23 Reasons for Services Signs and symptoms assessed: s/p panniculectomy with drain placement Reason for group home: other (wound care, drain care) Homebound: Leaving the home is medically contraindicated at this time without the asist of a device and/or another person due th the listed conditions above and below. Reason homebound: unable to drive Certification: Based on the above findings, I certify that this patient is confined to the home and needs intermittent group home care, physical therapy and/or speech therapy, or continues to need occupational therapy. The patient is under my care, and I have initiated the establishment of the plan of care. The patient will be followed by a physician who will periodically review the plan of care. Time Spent With Patient Time: Total time managing care of this patient today __30__ minutes.
[2023-08-17 14:38] LABS: Vitamin A 76 mcg/dL (38-98)
[2023-08-18 15:58] LABS: Vitamin B1 10 nmol/L (8-30)
== END 2023-08-16 17:16 | disposition home or self-care (01) ==
PROVIDERS: Nurse Practitioner; PCP Internal Medicine; Visit Provider Surgery
PROC: 0JB80ZZ Excision of Abdomen Subcutaneous Tissue and Fascia, Open Approach (ICD-10-PCS; CPT 15830; principal; 2023-08-16 11:40)
DX: L98.7 Excessive and redundant skin and subcutaneous tissue (principal); M79.3 Panniculitis, unspecified; K91.2 Postsurgical malabsorption, not elsewhere classified; I10 Essential (primary) hypertension; Z98.84 Bariatric surgery status
CPT/HCPCS: 15830; 15847; 36415; 80053; 80061; 81025; 82306; 82607; 82728; 83036; 83540; 84425; 84443; 84590; 84630; 85025; 85610; 85730; 86140; 86850; 86900; 86901; 88304; C9088; C9145; J0131; J0690; J1100; J2250; J2405; J2704; J3010; J3370

== ENCOUNTER → 2023-08-16 09:04 | Outpatient (BNV) | payer MEDICAID, SELFPAY | PROVIDERS: PCP Internal Medicine; Visit Provider Surgery | DX: M79.3 Panniculitis, unspecified (principal); L98.7 Excessive and redundant skin and subcutaneous tissue | CPT/HCPCS: 15830 ==

== ENCOUNTER → 2023-08-18 13:30 | Outpatient (BNVA) | payer MEDICAID, SELFPAY | PROVIDERS: PCP Internal Medicine; Visit Provider Surgery | DX: Z48.817 Encounter for surgical aftercare following surgery on the skin and subcutaneous tissue (principal); K91.2 Postsurgical malabsorption, not elsewhere classified; Z90.3 Acquired absence of stomach [part of]; Z98.84 Bariatric surgery status; T81.31XA Disruption of external operation (surgical) wound, not elsewhere classified, initial encounter | CPT/HCPCS: 99212 ==

== ENCOUNTER 2023-08-18 14:06 | Outpatient (AMB) | payer MEDICAID, SELFPAY ==
[2023-08-18 15:09] VITALS: BP 143/73; PULSE 85; TEMP 36; O2SAT 100
--- NOTE | 2023-08-18 15:09 | MHC.OFFVISWM ---
VS Expanded 08/18/23 15:09 BP 143/73 H Blood Pressure Location Rt brachial Blood Pressure Position Sitting Pulse 85 Pulse Source Pulse Oximeter Temp 96.8 F Temperature Source Tympanic Pulse Oximetry 100 Oxygen Delivery Method Room Air Intake Visit Reasons: (OV) s/p Panniculectomy 08/16/23 Allergies No Known Allergies Allergy (Verified 08/18/23 15:11) HPI Comments Details: 43 yo female s/p panniculectomy 08/16/23, developed 3 areas of dehiscence mid-incision. This was fairly superficial in nature. Patient was prepped and draped in standard surgical sterile fashion. The area was anesthetized with 15 mL 1% lidocaine. A running 2 0 nylon suture was placed to encompass approximated skin, the areas of dehiscence, and then approximated skin. Patient tolerated the procedure well and the entire incision was dressed with Xeroform, folded 4 x 4, ABD pad and Medipore tape. She will return to the office as previously scheduled on Tuesday. She will continue antibiotics as she has been doing. She will continue the meal plan as she has been doing. [facility] Medical History (Updated 08/18/23 @ 15:28 by KAYLEIGH Ross) Postgastrectomy malabsorption History of headache Arthritis Fibromyalgia HTN (hypertension) Intra-abdominal adhesions Depression Hidradenitis Abnormal EKG Bipolar 1 disorder Hx of borderline personality disorder ADHD Chronic post-traumatic stress disorder (PTSD) Pre-op evaluation Surgical History S/P laparoscopic sleeve gastrectomy Hx of esophagogastroduodenoscopy Gastric bypass status for obesity Family History Mother Obesity Diabetes mellitus Sister No problems noted. Son Leukemia Obesity Social History Are you a primary career professional to a significant other at home: No Do you presently have visiting nurse or other home services: No Alcohol intake: never Patient Tobacco Use Status: Never used Tobacco Advance Directives Date on File: 05/15/21 service: No Current occupational status: unemployed Physical Exam Vital Signs: Last Vital Signs Temp 96.8 F 08/18/23 15:09 Pulse 85 08/18/23 15:09 BP 143/73 H 06/06/24 15:09 Pulse Ox 100 08/18/23 15:09 Oxygen Delivery Method Room Air 08/18/23 15:09 Skin Other: Assessment & Plan Assessment & Plan (1) External incisional dehiscence: Code(s): T81.31XA - Disruption of external operation (surgical) wound, not elsewhere classified, initial encounter Category: Medical Plan: Dehiscence corrected. Continue antibiotics. Continue meal plan. Return to the office as scheduled on Tuesday. Text with any questions or concerns.
== END 2023-08-18 15:28 | disposition home or self-care (01) ==
LOC: HO.HBS 14:06
PROVIDERS: PCP Internal Medicine; Visit Provider Physician Assistant Surgical
DX: T81.31XA Disruption of external operation (surgical) wound, not elsewhere classified, initial encounter (principal)
CPT/HCPCS: 99024

== ENCOUNTER 2023-08-22 10:17 | Outpatient (AMB) | payer MEDICAID, SELFPAY ==
--- NOTE | 2023-08-22 10:20 | A.OFFVIS_ITS ---
VS Expanded 08/22/23 10:44 BP 137/73 Blood Pressure Location Rt brachial Blood Pressure Position Sitting Pulse 91 Pulse Source Pulse Oximeter Temp 96.7 F L Temperature Source Tympanic Pulse Oximetry 98 Oxygen Delivery Method Room Air Intake Visit Reasons: (OV) s/p Panniculectomy 08/16/23 Allergies No Known Allergies Allergy (Verified 08/18/23 15:11) HPI Comments Details: Patient is a pleasant 43-year-old female who returns to the office today in follow-up. She is status post panniculectomy on 08/16/2023. She developed midline incisional dehiscence on 08/18/2023 and came into the office for a 2 0 nylon running stitch to correct the defect. She reports no complaints of pain or excess drainage. No further evidence of dehiscence. She continues antibiotics and meal plan. [facility] Medical History (Updated 08/18/23 @ 15:28 by KAYLEIGH Rsos) Postgastrectomy malabsorption History of headache Arthritis Fibromyalgia HTN (hypertension) Intra-abdominal adhesions Depression Hidradenitis Abnormal EKG Bipolar 1 disorder Hx of borderline personality disorder ADHD Chronic post-traumatic stress disorder (PTSD) Pre-op evaluation Surgical History (Updated 08/22/23 @ 10:44 by KAYLEIGH Ross) S/P laparoscopic sleeve gastrectomy Hx of esophagogastroduodenoscopy Gastric bypass status for obesity Family History Mother Obesity Diabetes mellitus Sister No problems noted. Son Leukemia Obesity Social History Are you a primary daycare provider to a significant other at home: No Do you presently have visiting nurse or other home services: No Alcohol intake: never Patient Tobacco Use Status: Never used Tobacco Advance Directives Date on File: 05/15/21 service: No Current occupational status: unemployed Physical Exam Skin Other: Previously noted area of dehiscence, subsequently corrected by a running suture remains intact. The rest of the incision is clean, dry, intact. Umbilicus is somewhat ecchymotic although viable. No evidence of infection. Assessment & Plan Assessment & Plan (1) S/P panniculectomy: Code(s): Z98.890 - Other specified postprocedural states Category: Surgical Plan: Doing well after correction of deficit from midline incisional dehiscence. Reports 40-50 mL of serosanguineous fluid from the collection bulb. She will continue to wear her abdominal binder, continue antibiotics and meal plan. Return to the office in 1 week.
[2023-08-22 10:44] VITALS: BP 137/73; PULSE 91; TEMP 35.9; O2SAT 98
== END 2023-08-22 10:45 | disposition home or self-care (01) ==
LOC: HO.HBS 10:17
PROVIDERS: PCP Internal Medicine; Visit Provider Physician Assistant Surgical
DX: Z48.89 Encounter for other specified surgical aftercare (principal)
CPT/HCPCS: 99024

== ENCOUNTER → 2023-08-22 10:17 | Outpatient (BNVA) | payer MEDICAID, SELFPAY | PROVIDERS: PCP Internal Medicine; Visit Provider Physician Assistant Surgical | DX: Z48.817 Encounter for surgical aftercare following surgery on the skin and subcutaneous tissue (principal); Z98.890 Other specified postprocedural states | CPT/HCPCS: 99212 ==

== ENCOUNTER → 2023-08-29 10:54 | Outpatient (BNVA) | payer MEDICAID, SELFPAY | PROVIDERS: PCP Internal Medicine; Visit Provider Surgery ==

== ENCOUNTER 2023-09-01 11:18 | Outpatient (AMB) | payer MEDICAID, SELFPAY ==
[2023-09-01 13:11] VITALS: BP 122/64; PULSE 78; TEMP 36.6; O2SAT 99
--- NOTE | 2023-09-01 13:11 | MHC.OFFVISWM ---
VS Expanded 09/01/23 13:11 BP 122/64 Blood Pressure Location Rt brachial Blood Pressure Position Sitting Pulse 78 Pulse Source Pulse Oximeter Temp 97.8 F Temperature Source Temporal Artery Scan Pulse Oximetry 99 Oxygen Delivery Method Room Air Intake Visit Reasons: (OV) s/p Panniculectomy 08/16/23 Allergies No Known Allergies Allergy (Verified 09/01/23 13:11) HPI Comments Details: Patient is a 43-year-old female who underwent panniculectomy on 08/16/2023. She had midline transverse abdominal incision dehiscence on 08/18 23, this was sutured. She returned to the office several days later having done too much activity with increased drainage from the dehisced area. The tissue further as result of the increased activity requiring quarter-inch packing. She returned to the office again today after having had a fall last night and concerned that the drain was not functioning. The area of dehiscence worsened slightly and she denies any other pain. She denies fevers although the fluid collection is now somewhat more purulent. Additionally, the drain suture while still intact, is somewhat loose. [facility] Medical History (Updated 08/18/23 @ 15:28 by KAYLEIGH Ross) Postgastrectomy malabsorption History of headache Arthritis Fibromyalgia HTN (hypertension) Intra-abdominal adhesions Depression Hidradenitis Abnormal EKG Bipolar 1 disorder Hx of borderline personality disorder ADHD Chronic post-traumatic stress disorder (PTSD) Pre-op evaluation Surgical History S/P laparoscopic sleeve gastrectomy Hx of esophagogastroduodenoscopy Gastric bypass status for obesity Family History Mother Obesity Diabetes mellitus Sister No problems noted. Son Leukemia Obesity Social History Are you a primary post acute care nurse to a significant other at home: No Do you presently have visiting nurse or other home services: No Alcohol intake: never Patient Tobacco Use Status: Never used Tobacco Advance Directives Date on File: 05/15/21 service: No Current occupational status: unemployed Physical Exam Vital Signs: Last Vital Signs Temp 97.8 F 09/01/23 13:11 Pulse 78 09/01/23 13:11 BP 122/64 09/01/23 13:11 Pulse Ox 99 09/01/23 13:11 Oxygen Delivery Method Room Air 09/01/23 13:11 Skin Other: Seropurulent discharge from midline incisional dehiscence. Assessment & Plan Assessment & Plan (1) S/P panniculectomy: Code(s): Z98.890 - Other specified postprocedural states Category: Surgical Plan: Patient again instructed to be more careful and do no significant activity. She did have a slip and fall as this was an accident. Given the change in drainage, I will add doxycycline 100 mg p.o. b.i.d. for 2 weeks. The drain was secured with another 3-0 polypropylene suture. The drain itself is functioning appropriately. We will have her return to the office on Tuesday. Medications: New doxycycline monohydrate 100 mg PO BID 28 tabs 0RF 14 days
== END 2023-09-01 16:30 | disposition home or self-care (01) ==
LOC: HO.HBS 11:18
PROVIDERS: PCP Internal Medicine; Visit Provider Physician Assistant Surgical
DX: Z98.890 Other specified postprocedural states (principal)
CPT/HCPCS: 99024

== ENCOUNTER → 2023-09-01 11:18 | Outpatient (BNVA) | payer MEDICAID, SELFPAY | PROVIDERS: PCP Internal Medicine; Visit Provider Physician Assistant Surgical | DX: Z48.817 Encounter for surgical aftercare following surgery on the skin and subcutaneous tissue (principal); T81.32XA Disruption of internal operation (surgical) wound, not elsewhere classified, initial encounter; K91.2 Postsurgical malabsorption, not elsewhere classified; Z90.3 Acquired absence of stomach [part of]; Z98.84 Bariatric surgery status | CPT/HCPCS: 99212 ==

== ENCOUNTER 2023-09-05 12:09 | Outpatient (AMB) | payer MEDICAID, SELFPAY ==
--- NOTE | 2023-09-05 12:01 | A.OFFVIS_ITS ---
Intake Visit Reasons: (OV) s/p Panniculectomy 08/16/23 Allergies No Known Allergies Allergy (Verified 09/01/23 13:11) HPI Comments Details: 43-year-old female returns to the office today in follow-up at the request of Dr. Faulkner for evaluation of her midline incisional dehiscence. Over the weekend, the wound opened further. She states that due to her air conditioning being broken, she had increased perspiration and when she went to change her dressing the midline incision opened further. She has been packing this with iodoform gauze. Additionally, she states approximately 100 mL of serosanguineous fluid within the collection bulb. This appears less purulent. She continues taking the ceftriaxone and doxycycline. She continues the meal plan as directed by Dr. Faulkner. [facility] Medical History (Updated 08/18/23 @ 15:28 by AKYLEIGH Ross) Postgastrectomy malabsorption History of headache Arthritis Fibromyalgia HTN (hypertension) Intra-abdominal adhesions Depression Hidradenitis Abnormal EKG Bipolar 1 disorder Hx of borderline personality disorder ADHD Chronic post-traumatic stress disorder (PTSD) Pre-op evaluation Surgical History S/P laparoscopic sleeve gastrectomy Hx of esophagogastroduodenoscopy Gastric bypass status for obesity Family History Mother Obesity Diabetes mellitus Sister No problems noted. Son Leukemia Obesity Social History Are you a primary neonatal intensive care unit nurse to a significant other at home: No Do you presently have visiting nurse or other home services: No Alcohol intake: never Patient Tobacco Use Status: Never used Tobacco Advance Directives Date on File: 05/15/21 service: No Current occupational status: unemployed Physical Exam Skin Other: Midline incisional dehiscence measuring approximately 2 x 3 cm. This tunnels approximately 3.7 cm inferiorly and slightly towards the left. There is no significant odor or drainage. The base of the wound has healthy granular tissue. Assessment & Plan Assessment & Plan (1) External incisional dehiscence: Code(s): T81.31XA - Disruption of external operation (surgical) wound, not elsewhere classified, initial encounter Category: Medical Plan: Continue all treatment plans including dual antibiotics, packing the open wound, dressing the rest of the wound. Continue meal plan as directed by Dr. Faulkner. Continue abdominal binder. Return to the clinic 1 week.
== END 2023-09-05 12:48 | disposition home or self-care (01) ==
LOC: HO.HBS 12:09
PROVIDERS: PCP Internal Medicine; Visit Provider Physician Assistant Surgical
DX: T81.31XA Disruption of external operation (surgical) wound, not elsewhere classified, initial encounter (principal)
CPT/HCPCS: 99024

== ENCOUNTER → 2023-09-05 12:09 | Outpatient (BNVA) | payer MEDICAID, SELFPAY | PROVIDERS: PCP Internal Medicine; Visit Provider Physician Assistant Surgical | DX: T81.31XA Disruption of external operation (surgical) wound, not elsewhere classified, initial encounter (principal) | CPT/HCPCS: 99212 ==

== ENCOUNTER 2023-09-13 14:41 | Outpatient (AMB) | payer MEDICAID, SELFPAY ==
[2023-09-13 15:16] VITALS: BP 139/79; PULSE 70; TEMP 36.7; O2SAT 100
--- NOTE | 2023-09-13 15:16 | MHC.OFFVISWM ---
VS Expanded 09/13/23 15:16 BP 139/79 Blood Pressure Location Rt brachial Blood Pressure Position Sitting Pulse 70 Pulse Source Pulse Oximeter Temp 98.1 F Temperature Source Temporal Artery Scan Pulse Oximetry 100 Oxygen Delivery Method Room Air Intake Visit Reasons: (OV) s/p Panniculectomy 08/16/23 Allergies No Known Allergies Allergy (Verified 09/13/23 15:17) Medication List - Last Reconciled 09/13/23 by KAYLEIGH Lord acetaminophen 500 mg PO TID PRN 30 days amlodipine 5 mg PO QAM betamethasone dipropionate 0.05% 1 topical DAILY PRN celecoxib 200 mg PO DAILY cephalexin 500 mg PO Q12H cetirizine 10 mg PO QAM cholecalciferol (vitamin D3) 25 mcg PO DAILY clonazepam 1 mg PO DAILY PRN docusate sodium (Colace) 100 mg PO DAILY doxycycline monohydrate 100 mg PO BID 14 days dulaglutide (Trulicity) 3 mg subcut QWEEK duloxetine 30 mg PO BID hydroxyzine HCl 25 mg PO BEDTIME incontinence pad, liner, disp (Dry Comfort pads) As directed lidocaine 5% (Lidoderm) 1 patch topical DAILY PRN MDD remove after 12 hours lidocaine 5% 1 appl topical DAILY PRN methocarbamol 750 mg PO Q8H PRN 30 days ondansetron HCl 8 mg PO Q8H PRN oxybutynin chloride ER 5 mg PO QAM oxycodone-acetaminophen 7.5-325 mg 1 tab PO Q6H PRN pantoprazole 20 mg PO BID PRN solifenacin (Vesicare) 10 mg PO BEDTIME spironolactone 100 mg PO BID ziprasidone HCl 2 caps PO BEDTIME HPI Comments Details: Pt seen in followup of dehiscence after panniculectomy. On dual abx. Has been changing wound packing daily. Drain output between 20-50ml daily. No fevers at home. Drain stops holding suction when packing is removed. [facility] Medical History (Updated 08/18/23 @ 15:28 by KAYLEIGH Ross) Postgastrectomy malabsorption History of headache Arthritis Fibromyalgia HTN (hypertension) Intra-abdominal adhesions Depression Hidradenitis Abnormal EKG Bipolar 1 disorder Hx of borderline personality disorder ADHD Chronic post-traumatic stress disorder (PTSD) Pre-op evaluation Surgical History S/P laparoscopic sleeve gastrectomy Hx of esophagogastroduodenoscopy Gastric bypass status for obesity Family History Mother Obesity Diabetes mellitus Sister No problems noted. Son Leukemia Obesity Social History Are you a primary customer care consultant to a significant other at home: No Do you presently have visiting nurse or other home services: No Alcohol intake: never Patient Tobacco Use Status: Never used Tobacco Advance Directives Date on File: 05/15/21 service: No Current occupational status: unemployed Physical Exam Vital Signs: Last Vital Signs Temp 98.1 F 09/13/23 15:16 Pulse 70 09/13/23 15:16 BP 139/79 09/13/23 15:16 Pulse Ox 100 09/13/23 15:16 Oxygen Delivery Method Room Air 09/13/23 15:16 Const General: cooperative, comfortable and no acute distress Orientation/consciousness: patient oriented x3 GI Other: wound appears clean with pink base and granulation tissue. Open area at surface 4.5x3cm with maximum depth 2.5cm. tunnels from 3-7o'clock with max tunneling at 4 o'clock to 5cm Neuro General: patient oriented x3 Assessment & Plan Assessment & Plan (1) S/P panniculectomy: Code(s): Z98.890 - Other specified postprocedural states Category: Surgical (2) External incisional dehiscence: Code(s): T81.31XA - Disruption of external operation (surgical) wound, not elsewhere classified, initial encounter Category: Medical (3) Overweight: Code(s): E66.3 - Overweight Category: Medical (4) S/P laparoscopic sleeve gastrectomy: Comment: 05/13/21 Code(s): Z98.84 - Bariatric surgery status Category: Surgical Plan Wound repacked, photos taken and sent to Dr. Atkinson. Continue to measure drain output daily. Concern for connection between drain and open wound- Dr Atkinson notified and will proceed based on his opinion. Continue dual abx. RTC 1 week. I spent a total of 30 minutes reviewing/updating records, examining the patient and counseling the patient on weight management as detailed above.
== END 2023-09-13 15:47 | disposition home or self-care (01) ==
PROVIDERS: PCP Internal Medicine; Visit Provider Physician Assistant Surgical
DX: Z98.890 Other specified postprocedural states (principal); T81.31XA Disruption of external operation (surgical) wound, not elsewhere classified, initial encounter; E66.3 Overweight; Z98.84 Bariatric surgery status
CPT/HCPCS: 99024

== ENCOUNTER → 2023-09-13 14:41 | Outpatient (BNVA) | payer MEDICAID, SELFPAY | PROVIDERS: PCP Internal Medicine; Visit Provider Physician Assistant Surgical | DX: T81.31XD Disruption of external operation (surgical) wound, not elsewhere classified, subsequent encounter (principal); E66.3 Overweight; Z98.890 Other specified postprocedural states; Z98.84 Bariatric surgery status; Z79.2 Long term (current) use of antibiotics | CPT/HCPCS: 99212 ==

== ENCOUNTER 2023-09-20 11:01 | Outpatient (AMB) | payer MEDICAID, SELFPAY ==
--- NOTE | 2023-09-20 11:04 | MHC.OFFVISWM ---
VS Expanded 09/20/23 11:14 BP 134/79 Blood Pressure Location Rt brachial Blood Pressure Position Sitting Pulse 77 Pulse Source Pulse Oximeter Temp 96.3 F L Temperature Source Tympanic Pulse Oximetry 95 Oxygen Delivery Method Room Air Intake Visit Reasons: (OV) s/p Panniculectomy 08/16/23 Allergies No Known Allergies Allergy (Verified 09/20/23 11:17) Medication List - Last Reconciled 09/20/23 by KAYLEIGH Lord acetaminophen 500 mg PO TID PRN 30 days amlodipine 5 mg PO QAM betamethasone dipropionate 0.05% 1 topical DAILY PRN celecoxib 200 mg PO DAILY cephalexin 500 mg PO Q12H cetirizine 10 mg PO QAM cholecalciferol (vitamin D3) 25 mcg PO DAILY clonazepam 1 mg PO DAILY PRN docusate sodium (Colace) 100 mg PO DAILY doxycycline monohydrate 100 mg PO BID 14 days dulaglutide (Trulicity) 3 mg subcut QWEEK duloxetine 30 mg PO BID hydroxyzine HCl 25 mg PO BEDTIME incontinence pad, liner, disp (Dry Comfort pads) As directed lidocaine 5% (Lidoderm) 1 patch topical DAILY PRN MDD remove after 12 hours lidocaine 5% 1 appl topical DAILY PRN methocarbamol 750 mg PO Q8H PRN 30 days ondansetron HCl 8 mg PO Q8H PRN oxybutynin chloride ER 5 mg PO QAM oxycodone-acetaminophen 7.5-325 mg 1 tab PO Q6H PRN pantoprazole 20 mg PO BID PRN solifenacin (Vesicare) 10 mg PO BEDTIME spironolactone 100 mg PO BID ziprasidone HCl 2 caps PO BEDTIME HPI Comments Details: Pt seen in followup of dehiscence after panniculectomy. On dual abx. Has been changing wound packing daily and moistening packing as recommended by Dr. Atkinson after last visit. Pt believes character of drain output has changed. No fevers at home. [facility] Medical History (Updated 08/18/23 @ 15:28 by KAYLEIGH Ross) Postgastrectomy malabsorption History of headache Arthritis Fibromyalgia HTN (hypertension) Intra-abdominal adhesions Depression Hidradenitis Abnormal EKG Bipolar 1 disorder Hx of borderline personality disorder ADHD Chronic post-traumatic stress disorder (PTSD) Pre-op evaluation Surgical History S/P laparoscopic sleeve gastrectomy Hx of esophagogastroduodenoscopy Gastric bypass status for obesity Family History Mother Obesity Diabetes mellitus Sister No problems noted. Son Leukemia Obesity Social History Are you a primary insurance healthcare representative to a significant other at home: No Do you presently have visiting nurse or other home services: No Alcohol intake: never Patient Tobacco Use Status: Never used Tobacco Advance Directives Date on File: 05/15/21 service: No Current occupational status: unemployed Physical Exam Vital Signs: Last Vital Signs Temp 96.3 F L 09/20/23 11:14 Pulse 77 09/20/23 11:14 BP 134/79 09/20/23 11:14 Pulse Ox 95 09/20/23 11:14 Oxygen Delivery Method Room Air 09/20/23 11:14 Const General: cooperative, comfortable and no acute distress Orientation/consciousness: patient oriented x3 GI Other: soft, nontender, nondistended, edges of panniculectomy incision healing well, open area 4x4x1.5cm, max undermining 4cm at 4oclock with undermining from 3-7oclock with some granulation/fibrinous tissue at base, no necrotic tissue, drain output cloudy red Neuro General: patient oriented x3 Assessment & Plan Assessment & Plan (1) S/P panniculectomy: Code(s): Z98.890 - Other specified postprocedural states Category: Surgical (2) External incisional dehiscence: Code(s): T81.31XA - Disruption of external operation (surgical) wound, not elsewhere classified, initial encounter Category: Medical (3) Overweight: Code(s): E66.3 - Overweight Category: Medical Plan Will replace packing and cover with Tegaderm per Dr. Atkinson to help ensure a seal so drain can hold suction. Monitor drain output volume and character. Continue binder, replaced with smaller size to help maintain pressure/support. Continue abx. RTC 1 week. I spent a total of 45 minutes reviewing/updating records, examining the patient and counseling the patient on weight management as detailed above.
[2023-09-20 11:14] VITALS: BP 134/79; PULSE 77; TEMP 35.7; O2SAT 95
== END 2023-09-20 12:25 | disposition home or self-care (01) ==
LOC: HO.HBS 11:01
PROVIDERS: PCP Internal Medicine; Visit Provider Physician Assistant Surgical
DX: E66.3 Overweight (principal); Z48.817 Encounter for surgical aftercare following surgery on the skin and subcutaneous tissue; Z98.890 Other specified postprocedural states
CPT/HCPCS: 99024

== ENCOUNTER → 2023-09-20 11:01 | Outpatient (BNVA) | payer MEDICAID, SELFPAY | PROVIDERS: PCP Internal Medicine; Visit Provider Physician Assistant Surgical | DX: T81.31XA Disruption of external operation (surgical) wound, not elsewhere classified, initial encounter (principal); E66.3 Overweight | CPT/HCPCS: 99212 ==

== ENCOUNTER 2023-09-22 10:58 | Outpatient (AMB) | payer MEDICAID, SELFPAY ==
--- NOTE | 2023-09-22 11:19 | A.OFFVIS_ITS ---
Vital Signs 09/22/23 11:24 Height 5 ft 3.5 in Weight 149 lb 8 oz BMI 26.1 BP 134/78 Blood Pressure Location Lt brachial Position Sitting Respiration 16 Pulse 84 Pulse Source Pulse Oximeter Pulse Oximetry (%) 100 Oxygen Delivery Method Room Air Intake Visit Reasons: TINGLING IN HANDS Intake Note: Patient comes in for tingling in hands. Reports pain /10. Allergies No Known Allergies Allergy (Verified 09/22/23 11:23) HPI Comments Details: Peri is very pleasant 42 years old female who is in my office for the follow- up and medication refill. In the past she received medial branch block with me in lower lumbar spine which did not alleviate her pain at all, she also received transforaminal epidural steroid injection (by Dr. Ferrer) which also resulted in no improvement. She is currently under observation of Dr. Hammond, she is arcelia nned to go for L4-5 posterior fusion. She was rescheduled for 11/23/2023 to go for this procedure. She also reports tingling sensation in bilateral hands. She was diagnose with nerve root compression cervical spine. She is considered to be a candidate for cervical surgery as well. Attention was attracted today on physical exam that she might have some sacroiliac joint problems on the right. The physical exam see as below. I will schedule her for diagnostic sacroiliac joint injection on the right. She would like to have Ativan prescribed before the procedure. I will do so when she has in the injection area. She is here to renew her medications. I will renew them with 12 refills. [facility] Medical History (Updated 09/22/23 @ 16:30 by Noel Badillo MD) Postgastrectomy malabsorption History of headache Arthritis Fibromyalgia HTN (hypertension) Intra-abdominal adhesions Depression Hidradenitis Abnormal EKG Bipolar 1 disorder Hx of borderline personality disorder ADHD Chronic post-traumatic stress disorder (PTSD) Pre-op evaluation Surgical History S/P laparoscopic sleeve gastrectomy Hx of esophagogastroduodenoscopy Gastric bypass status for obesity Family History Mother Obesity Diabetes mellitus Sister No problems noted. Son Leukemia Obesity Social History (Reviewed 09/13/23 @ 15:17 by ANTHONY Lubin Are you a primary animal care worker to a significant other at home: No Do you presently have visiting nurse or other home services: No Alcohol intake: never Patient Tobacco Use Status: Never used Tobacco Advance Directives Date on File: 05/15/21 service: No Current occupational status: unemployed Review of Systems Const All systems reviewed & are unremarkable except as noted in HPI and below Physical Exam Vital Signs: Last Vital Signs Pulse 84 09/22/23 11:24 Resp 16 09/22/23 11:24 BP 134/78 09/22/23 11:24 Pulse Ox 100 09/22/23 11:24 Oxygen Delivery Method Room Air 09/22/23 11:24 BMI result Body Mass Index 26.1 General: Appears afebrile. Alert and oriented. Mood and affect appropriate. Follows and participates in conversation appropriately. Respiratory effort is unlabored. Able to transition from sit to stand unassisted. Ambulates with bilaterally normal heel strike and toe off Back/Spine/Pelvis Other: Lumbar extension and flexion reproduces significant pain. Right groin pain with I/E hip rotations. Multiple widespread TTPs 16/16 bilaterally, including upper and lower extremities. Marcus test, pelvic compression test, Gaenslen test, all positive on the right. Cervical Spine: cervical ROM normal, cervical muscular tenderness and No Cervical spine tenderness Thoracic/Lumbar Spine: thoracic and lumbar spine normal to inspection, Lasegue's sign positive on the right and diffuse, paraspinal muscle tenderness, No thoracic spinal tenderness, lumbar spinal tenderness and straight leg raise positive right at 50 degrees Pelvis: buttock tenderness on the right Sacroiliac joints: bilaterally (+Marcus's test) tender to palpation Extrem General: Yes capillary refill normal, Yes no clubbing, cyanosis or edema and Yes no calf tenderness Right lower extremity: hip/thigh Details: tenderness (lateral hip); no swelling, no ecchymosis, no crepitus and no unusual warmth Assessment & Plan Assessment & Plan (1) Numbness and tingling in both hands: Code(s): R20.0 - Anesthesia of skin; R20.2 - Paresthesia of skin Category: Medical (2) Numbness and tingling of right leg: Code(s): R20.0 - Anesthesia of skin; R20.2 - Paresthesia of skin Category: Medical (3) Lumbar radiculopathy: Code(s): M54.16 - Radiculopathy, lumbar region Category: Medical (4) Lumbar facet arthropathy: Code(s): M47.816 - Spondylosis without myelopathy or radiculopathy, lumbar region Category: Medical (5) Right hip pain: Code(s): M25.551 - Pain in right hip Category: Medical (6) Sacroiliitis: Code(s): M46.1 - Sacroiliitis, not elsewhere classified Category: Medical (7) Sacroiliac joint dysfunction of right side: Code(s): M53.3 - Sacrococcygeal disorders, not elsewhere classified Category: Medical Plan She is scheduled for neurosurgery procedure. Attention was attracted today on possible sacroiliitis on the right. I will schedule this patient for sacroiliac joint injection diagnostic on the right. She wants Ativan for this procedure will give her Ativan order before the injection in the injection area. She is under care of Dr. Faulkner and team for dehiscence of the panniculectomy wound. However I do not think that this is something which could prevent me to perform diagnostic SI joint injection. We will be no steroid in the injectate. Patient Instructions: I here by testify that I spent 35 minutes in conversation with this patient as well as planning her care and organizing this note. Coding Level of Care Code Est Pt Level 4 (12275) Diagnoses Numbness and tingling in both hands R20.0; R20.2 Numbness and tingling of right leg R20.0; R20.2 Lumbar radiculopathy M54.16 Lumbar facet arthropathy M47.816 Right hip pain M25.551 Sacroiliitis M46.1 Sacroiliac joint dysfunction of right side M53.3
[2023-09-22 11:24] VITALS: BP 134/78; PULSE 84; RESP 16; O2SAT 100; BMI 26.1
== END 2023-09-22 12:07 | disposition home or self-care (01) ==
PROVIDERS: PCP Internal Medicine; Visit Provider Anesthesiology
DX: R20.0 Anesthesia of skin (principal); R20.2 Paresthesia of skin; M54.16 Radiculopathy, lumbar region; M47.816 Spondylosis without myelopathy or radiculopathy, lumbar region; M25.551 Pain in right hip; M46.1 Sacroiliitis, not elsewhere classified; M53.3 Sacrococcygeal disorders, not elsewhere classified
CPT/HCPCS: 99214

== ENCOUNTER → 2023-09-22 10:58 | Outpatient (BNVA) | payer MEDICAID, SELFPAY | PROVIDERS: PCP Internal Medicine; Visit Provider Anesthesiology | DX: M54.16 Radiculopathy, lumbar region (principal); M47.816 Spondylosis without myelopathy or radiculopathy, lumbar region; M25.551 Pain in right hip; M46.1 Sacroiliitis, not elsewhere classified; M53.3 Sacrococcygeal disorders, not elsewhere classified; R20.0 Anesthesia of skin; R20.2 Paresthesia of skin | CPT/HCPCS: 99212 ==

== ENCOUNTER 2023-09-27 11:37 | Outpatient (AMB) | payer MEDICAID, SELFPAY ==
--- NOTE | 2023-09-27 11:44 | MHC.OFFVISWM ---
VS Expanded 09/27/23 11:47 BP 141/82 H Blood Pressure Location Rt brachial Blood Pressure Position Sitting Pulse 79 Pulse Source Pulse Oximeter Temp 97.2 F Temperature Source Tympanic Pulse Oximetry 100 Oxygen Delivery Method Room Air Intake Visit Reasons: (OV) s/p Panniculectomy 08/16/23 Allergies No Known Allergies Allergy (Verified 09/27/23 11:50) HPI Comments Details: 43-year-old female is status post panniculectomy performed on 08/16/2023. She has had incisional dehiscence. This unfortunately happened due to an accident at home. The area of dehiscence is midline, with approximately 3-3.5 cm of undermining in the inferior and slight left position. The exposed tissue is healthy and granular. When the dehisced area is not covered with a Tegaderm, the collection bulb does not hold suction. Otherwise she has approximately 20-25 mL of seropurulent fluid coming from the collection bulb daily. She continues her antibiotics, abdominal binder, and reports following the prescribed meal plan. She denies any fever or pain. [facility] Medical History (Updated 09/22/23 @ 16:30 by Noel Badillo MD) Postgastrectomy malabsorption History of headache Arthritis Fibromyalgia HTN (hypertension) Intra-abdominal adhesions Depression Hidradenitis Abnormal EKG Bipolar 1 disorder Hx of borderline personality disorder ADHD Chronic post-traumatic stress disorder (PTSD) Pre-op evaluation Surgical History S/P laparoscopic sleeve gastrectomy Hx of esophagogastroduodenoscopy Gastric bypass status for obesity Family History Mother Obesity Diabetes mellitus Sister No problems noted. Son Leukemia Obesity Social History Are you a primary healthcare analyst to a significant other at home: No Do you presently have visiting nurse or other home services: No Alcohol intake: never Patient Tobacco Use Status: Never used Tobacco Advance Directives Date on File: 05/15/21 service: No Current occupational status: unemployed Physical Exam Vital Signs: Last Vital Signs Temp 97.2 F 09/27/23 11:47 Pulse 79 09/27/23 11:47 BP 141/82 H 09/27/23 11:47 Pulse Ox 100 09/27/23 11:47 Oxygen Delivery Method Room Air 09/27/23 11:47 Skin Other: Approximately 1.5 x 2 cm open area with a proximally 3 cm of undermining in the inferior and slight left position. Healthy granular tissue. No odor. Assessment & Plan Assessment & Plan (1) S/P panniculectomy: Code(s): Z98.890 - Other specified postprocedural states Category: Surgical Plan: Continue current treatment plans with abdominal binder, monitoring drainage. She has been instructed to continue to pack her open wound as directed. Return to clinic 1 week. (2) External incisional dehiscence: Code(s): T81.31XA - Disruption of external operation (surgical) wound, not elsewhere classified, initial encounter Category: Medical Plan: As above
[2023-09-27 11:47] VITALS: BP 141/82; PULSE 79; TEMP 36.2; O2SAT 100
== END 2023-09-27 12:07 | disposition home or self-care (01) ==
PROVIDERS: PCP Internal Medicine; Visit Provider Physician Assistant Surgical
DX: Z98.890 Other specified postprocedural states (principal); T81.31XA Disruption of external operation (surgical) wound, not elsewhere classified, initial encounter
CPT/HCPCS: 99024

== ENCOUNTER → 2023-09-27 11:37 | Outpatient (BNVA) | payer MEDICAID, SELFPAY | PROVIDERS: PCP Internal Medicine; Visit Provider Physician Assistant Surgical | DX: T81.31XA Disruption of external operation (surgical) wound, not elsewhere classified, initial encounter (principal); X58.XXXA Exposure to other specified factors, initial encounter; Y93.9 Activity, unspecified; Y92.9 Unspecified place or not applicable; Y99.9 Unspecified external cause status; Z48.817 Encounter for surgical aftercare following surgery on the skin and subcutaneous tissue; Z87.2 Personal history of diseases of the skin and subcutaneous tissue | CPT/HCPCS: 99212 ==

== ENCOUNTER 2023-10-14 10:02 | Outpatient (AMB) | payer MEDICAID, SELFPAY ==
--- NOTE | 2023-10-14 10:03 | A.OFFVIS_ITS ---
VS Expanded 10/14/23 10:06 BP 126/75 Blood Pressure Location Rt brachial Blood Pressure Position Sitting Pulse 95 Pulse Source Pulse Oximeter Temp 96.3 F L Temperature Source Temporal Artery Scan Pulse Oximetry 97 Oxygen Delivery Method Room Air Intake Visit Reasons: (OV) s/p Panniculectomy 08/16/23 Allergies No Known Allergies Allergy (Verified 10/14/23 10:06) HPI Comments Details: 43-year-old female is status post panniculectomy performed on 08/16/2023. She has had incisional dehiscence. This unfortunately happened due to an accident at home. The area of dehiscence is midline, with approximately 3-3.5 cm of undermining in the inferior and slight left position. The exposed tissue is healthy and granular. She reports mild drainage from the midline dehiscence and continues approximately 20 mL of serous fluid from the collection bulb. The skin suture is no longer attached although the black dot of the Woodrow drain remains within the body and suctioned is held when Tegaderm as over the midline dehiscence. She was scheduled to be seen in the wound clinic on 10/23 however we were able to get her an appointment sooner on 10/18. She continues antibiotics. [facility] Medical History (Updated 09/22/23 @ 16:30 by Noel Badillo MD) Postgastrectomy malabsorption History of headache Arthritis Fibromyalgia HTN (hypertension) Intra-abdominal adhesions Depression Hidradenitis Abnormal EKG Bipolar 1 disorder Hx of borderline personality disorder ADHD Chronic post-traumatic stress disorder (PTSD) Pre-op evaluation Surgical History S/P laparoscopic sleeve gastrectomy Hx of esophagogastroduodenoscopy Gastric bypass status for obesity Family History Mother Obesity Diabetes mellitus Sister No problems noted. Son Leukemia Obesity Social History Are you a primary senior care manager to a significant other at home: No Do you presently have visiting nurse or other home services: No Alcohol intake: never Patient Tobacco Use Status: Never used Tobacco Advance Directives Date on File: 05/15/21 service: No Current occupational status: unemployed Physical Exam Vital Signs: Last Vital Signs Temp 96.3 F L 10/14/23 10:06 Pulse 95 10/14/23 10:06 BP 126/75 10/14/23 10:06 Pulse Ox 97 10/14/23 10:06 Oxygen Delivery Method Room Air 10/14/23 10:06 Skin Other: Approximately 2.5 x 1.3 by 1.5 cm open area with greatest tunneling inferiorly at 3.5 cm. No significant odor or purulent drainage. Granular base. Assessment & Plan Assessment & Plan (1) S/P panniculectomy: Code(s): Z98.890 - Other specified postprocedural states Category: Surgical Plan: Status post panniculectomy on 08/16/2023. Despite the skin suture of the Woodrow drain becoming dislodged, the black dot of the drain remains within the body and suctioned is held when Tegaderm was placed over the midline incision. I suspect that the drain will become dislodged or will need to be removed at her appointment with wound clinic on 10/18. This is a reasonable approach, es pecially if no longer holding suction. Continue oral antibiotics for 2 weeks once the drain comes out. (2) External incisional dehiscence: Code(s): T81.31XA - Disruption of external operation (surgical) wound, not elsewhere classified, initial encounter Category: Medical Plan: Continue packing with 1 in packing strip until seen by wound clinic on 10/19/2023.
[2023-10-14 10:06] VITALS: BP 126/75; PULSE 95; TEMP 35.7; O2SAT 97
== END 2023-10-14 10:41 | disposition home or self-care (01) ==
PROVIDERS: PCP Internal Medicine; Visit Provider Physician Assistant Surgical
DX: Z98.890 Other specified postprocedural states (principal); T81.31XA Disruption of external operation (surgical) wound, not elsewhere classified, initial encounter
CPT/HCPCS: 99024

== ENCOUNTER → 2023-10-14 10:02 | Outpatient (BNVA) | payer MEDICAID, SELFPAY | PROVIDERS: PCP Internal Medicine; Visit Provider Physician Assistant Surgical | DX: T81.31XA Disruption of external operation (surgical) wound, not elsewhere classified, initial encounter (principal); Z98.890 Other specified postprocedural states | CPT/HCPCS: 99212 ==

== ENCOUNTER 2023-10-17 14:10 | Outpatient (AMB) | payer MEDICAID, SELFPAY ==
--- NOTE | 2023-10-17 14:13 | MHC.OFFVIS ---
Vital Signs 10/17/23 14:18 Height 5 ft 3.5 in Weight 149 lb 8 oz BMI 26.1 BP 134/70 Blood Pressure Location Lt brachial Position Sitting Respiration 16 Pulse 69 Pulse Source Pulse Oximeter Pulse Oximetry (%) 98 Oxygen Delivery Method Room Air Intake Visit Reasons: Tingling on right tight Intake Note: Patient comes in for follow up. Reports pain 09/20. Allergies No Known Allergies Allergy (Verified 10/14/23 10:06) HPI Comments Details: Peri is very pleasant 42 years old female who is in my office for the follow-up In the past she received medial branch block with me in lower lumbar spine which did not alleviate her pain at all, she also received transforaminal epidural steroid injection (by Dr. Ferrer) which also resulted in no improvement. She is currently under observation of Dr. Hammond, she is planned to go for L4-5 posterior fusion. She was rescheduled for 11/23/2023 to go for this procedure. She also reports tingling sensation in bilateral hands. She was diagnose with nerve root compression cervical spine. She is considered to be a candidate for cervical surgery as well. Attention was attracted today on physical exam that she might have some sacroiliac joint problems on the right. she went for bariatric surgery and after significant pain reduction she went for panniculectomy. Unfortunately the panniculectomy got complicated by wound dehiscence. Dr. Hammond he is reluctant to operate on her it was planned before until the dehiscence wound will completely heal. She requests me to prescribe some medications to temporize her pain syndrome. We agreed that we will try gabapentin 600 mg t.i.d.. [facility] Medical History (Updated 09/22/23 @ 16:30 by Noel Badillo MD) Postgastrectomy malabsorption History of headache Arthritis Fibromyalgia HTN (hypertension) Intra-abdominal adhesions Depression Hidradenitis Abnormal EKG Bipolar 1 disorder Hx of borderline personality disorder ADHD Chronic post-traumatic stress disorder (PTSD) Pre-op evaluation Surgical History S/P laparoscopic sleeve gastrectomy Hx of esophagogastroduodenoscopy Gastric bypass status for obesity Family History Mother Obesity Diabetes mellitus Sister No problems noted. Son Leukemia Obesity Social History Are you a primary care consultant to a significant other at home: No Do you presently have visiting nurse or other home services: No Alcohol intake: never Patient Tobacco Use Status: Never used Tobacco Advance Directives Date on File: 05/15/21 service: No Current occupational status: unemployed Review of Systems Const All systems reviewed & are unremarkable except as noted in HPI and below Physical Exam Vital Signs: Last Vital Signs Pulse 69 10/17/23 14:18 Resp 16 10/17/23 14:18 BP 134/70 10/17/23 14:18 Pulse Ox 98 10/17/23 14:18 Oxygen Delivery Method Room Air 10/17/23 14:18 BMI result Body Mass Index 26.1 General: Appears afebrile. Alert and oriented. Mood and affect appropriate. Follows and participates in conversation appropriately. Respiratory effort is unlabored. Able to transition from sit to stand unassisted. Ambulates with bilaterally normal heel strike and toe off Back/Spine/Pelvis Other: Lumbar extension and flexion reproduces significant pain. Right groin pain with I/E hip rotations. Multiple widespread TTPs 16/16 bilaterally, including upper and lower extremities. Marcus test, pelvic compression test, Gaenslen test, all positive on the right. Cervical Spine: cervical ROM normal, cervical muscular tenderness and No Cervical spine tenderness Thoracic/Lumbar Spine: thoracic and lumbar spine normal to inspection, Lasegue's sign positive on the right and diffuse, paraspinal muscle tenderness, No thoracic spinal tenderness, lumbar spinal tenderness and straight leg raise positive right at 50 degrees Pelvis: buttock tenderness on the right Sacroiliac joints: bilaterally (+Marcus's test) tender to palpation Extrem General: Yes capillary refill normal, Yes no clubbing, cyanosis or edema and Yes no calf tenderness Right lower extremity: hip/thigh Details: tenderness (lateral hip); no swelling, no ecchymosis, no crepitus and no unusual warmth Assessment & Plan Assessment & Plan (1) Numbness and tingling in both hands: Code(s): R20.0 - Anesthesia of skin; R20.2 - Paresthesia of skin Category: Medical (2) Numbness and tingling of right leg: Code(s): R20.0 - Anesthesia of skin; R20.2 - Paresthesia of skin Category: Medical (3) Lumbar radiculopathy: Code(s): M54.16 - Radiculopathy, lumbar region Category: Medical (4) Lumbar facet arthropathy: Code(s): M47.816 - Spondylosis without myelopathy or radiculopathy, lumbar region Category: Medical (5) Right hip pain: Code(s): M25.551 - Pain in right hip Category: Medical (6) Sacroiliitis: Code(s): M46.1 - Sacroiliitis, not elsewhere classified Category: Medical (7) Sacroiliac joint dysfunction of right side: Code(s): M53.3 - Sacrococcygeal disorders, not elsewhere classified Category: Medical Plan She is scheduled for neurosurgery procedure however unable to go for it because of the implications from panniculectomy/wound dehiscence.. Sacroiliac joint diagnostic injection of the left was planned in the past to help her pain.. She requests me to prescribe some medications for her to help her to go for the procedure. I discussed it with the patient today and offered her 600 mg of gabapentin meanwhile to help her pain. Medications: New gabapentin 600 mg PO TID 90 tabs 4RF 30 days Coding Level of Care Code Est Pt Level 3 (06201) Diagnoses Numbness and tingling in both hands R20.0; R20.2 Numbness and tingling of right leg R20.0; R20.2 Lumbar radiculopathy M54.16 Lumbar facet arthropathy M47.816 Right hip pain M25.551 Sacroiliitis M46.1 Sacroiliac joint dysfunction of right side M53.3
[2023-10-17 14:18] VITALS: BP 134/70; PULSE 69; RESP 16; O2SAT 98; BMI 26.1
== END 2023-10-17 15:37 | disposition home or self-care (01) ==
PROVIDERS: PCP Internal Medicine; Referring Provider Internal Medicine; Visit Provider Anesthesiology
DX: R20.0 Anesthesia of skin (principal); R20.2 Paresthesia of skin; M54.16 Radiculopathy, lumbar region; M47.816 Spondylosis without myelopathy or radiculopathy, lumbar region; M25.551 Pain in right hip; M46.1 Sacroiliitis, not elsewhere classified; M53.3 Sacrococcygeal disorders, not elsewhere classified
CPT/HCPCS: 99213

== ENCOUNTER → 2023-10-17 14:10 | Outpatient (BNVA) | payer MEDICAID, SELFPAY | PROVIDERS: PCP Internal Medicine; Visit Provider Anesthesiology | DX: M47.26 Other spondylosis with radiculopathy, lumbar region (principal); M25.551 Pain in right hip; M46.1 Sacroiliitis, not elsewhere classified; R20.2 Paresthesia of skin; R20.0 Anesthesia of skin; M53.3 Sacrococcygeal disorders, not elsewhere classified | CPT/HCPCS: 99212 ==

== ENCOUNTER 2023-10-19 08:09 | Outpatient (RCR) | payer MEDICAID, SELFPAY | END 2024-02-03 13:59 | disposition home or self-care (01) | LOC: HO.WCC 08:09 | PROVIDERS: PCP Internal Medicine; Visit Provider Surgery | DX: T81.31XD Disruption of external operation (surgical) wound, not elsewhere classified, subsequent encounter (principal); Z79.899 Other long term (current) drug therapy | CPT/HCPCS: 11042; 97597; 99212 ==

== ENCOUNTER 2023-12-17 09:23 | Outpatient (REF) | payer MEDICAID, SELFPAY ==
[2023-12-17 09:43] LABS: MANUAL DIFF FLAG NO
[2023-12-17 10:49] LABS: Basophils Absolute Auto 0.1 X10*3/uL (0.0-0.2); Basophils Percent Auto 0.9 % (0-2); Eosinophils Absolute Auto 0.2 X10*3/uL (0.0-0.4); Eosinophils Percent Auto 3.4 % (0-4); Hematocrit 38.1 % (37.0-47.0); Hemoglobin 12.9 g/dl (12.0-16.0); Imm Gran Abs Auto 0.01 X10*3/uL (0.00-0.03); Imm Gran Pct Auto 0.1 % (0.0-0.4); Lymphocytes Absolute Auto 2.6 X10*3/uL (1.2-4.9); Lymphocytes Percent Auto 38.3 % (20-40); Mean Corpuscular HGB Conc 33.9 g/dl (31.0-35.0); Mean Corpuscular Hemoglobin 32.4 pg (27.0-33.0); Mean Corpuscular Volume 95.7 fL (80.0-98.0); Mean Platelet Volume 9.8 fL (9.4-12.3); Monocytes Absolute Auto 0.6 X10*3/uL (0.1-1.2); Monocytes Percent Auto 9.3 % (2-11); Neutrophils Absolute Auto 3.2 x10*3/uL (2.0-8.3); Platelet Count 543 X10*3/uL (160-400); Red Blood Count 3.98 X10*6/uL (4.20-5.50); Red Cell Distribution Width 13.7 % (11.0-16.0); White Blood Count 6.7 X10*3/uL (4.8-10.8)
[2023-12-17 11:55] LABS: Alanine Aminotransferase 24 U/L (0-31); Albumin Level 3.4 g/dL (3.5-5.0); Alkaline Phosphatase 83 U/L (39-117); Anion Gap 12 (12-20); Aspartate Amino Transferase 19 U/L (5-31); Bilirubin Total 0.3 mg/dL (0.0-1.0); Blood Urea Nitrogen 13 mg/dL (9-16); C Reactive Protein 1.02 mg/dL (< or = 0.50); Calcium 8.4 mg/dL (8.4-10.2); Carbon Dioxide 23 mmol/L (22-29); Chloride 110 mmol/L (96-108); Estimated Glomerular Filt Rate > 60; Glucose Random 83 mg/dL (60-115); Potassium 3.8 mmol/L (3.3-5.1); Sodium 141 mmol/L (135-145); Total Protein 6.3 g/dL (6.5-8.0)
[2023-12-17 12:32] LABS: Erythrocyte Sedimentation Rate 12 MM/HR (0-20)
[2023-12-19 20:59] LABS: Immunoglobulin A 149 mg/dL (47-310); Transglutaminase IgA <1.0 U/mL
== END 2023-12-17 09:24 | disposition home or self-care (01) ==
LOC: HO.LAB 09:23
PROVIDERS: PCP Internal Medicine; Visit Provider Internal Medicine
DX: R19.7 Diarrhea, unspecified (principal)
CPT/HCPCS: 36415; 80053; 82784; 85025; 85652; 86140; 86364

== ENCOUNTER 2023-12-18 08:29 | Outpatient (REF) | payer MEDICAID, SELFPAY ==
[2023-12-19 09:40] LABS: Leukocytes Stool Qualitative NEGATIVE (NEGATIVE)
[2023-12-19 12:22] LABS: Adenovirus F 40/41 Not Detected (Not Detect.); Astrovirus Not Detected (Not Detect.); Campylobacter Not Detected (Not Detect.); Cryptosporidium Not Detected (Not Detect.); Cyclospora cayetanensis Not Detected (Not Detect.); E. coli EAEC Not Detected (Not Detect.); E. coli EPEC Not Detected (Not Detect.); E. coli ETEC Not Detected (Not Detect.); E. coli STEC Not Detected (Not Detect.); Entamoeba histolytica Not Detected (Not Detect.); Giardia lamblia Not Detected (Not Detect.); Norovirus GI/GII Not Detected (Not Detect.); Plesiomonas shigelloides Not Detected (Not Detect.); Rotavirus A Not Detected (Not Detect.); Salmonella Not Detected (Not Detect.); Sapovirus Not Detected (Not Detect.); Shigella sp./EIEC Not Detected (Not Detect.); Vibrio Not Detected (Not Detect.); Vibrio Cholerae Not Detected (Not Detect.); Yersinia enterocolitica Not Detected (Not Detect.)
[2023-12-26 01:54] LABS: Calprotectin, Fecal 3410 mcg/g
== END 2023-12-18 08:30 | disposition home or self-care (01) ==
LOC: HO.LNP 08:29
PROVIDERS: Visit Provider Internal Medicine
DX: R19.7 Diarrhea, unspecified (principal)
CPT/HCPCS: 83993; 87507; 89055

== ENCOUNTER 2023-12-21 10:12 | Outpatient (REF) | payer MEDICAID, SELFPAY ==
[2023-12-21 11:29] LABS: MANUAL DIFF FLAG NO
[2023-12-21 11:56] LABS: Prothrombin Time 11.2 SEC (10.9-12.4)
[2023-12-21 11:59] LABS: Basophils Absolute Auto 0.1 X10*3/uL (0.0-0.2); Basophils Percent Auto 0.7 % (0-2); Eosinophils Absolute Auto 0.2 X10*3/uL (0.0-0.4); Eosinophils Percent Auto 2.7 % (0-4); Hematocrit 39.7 % (37.0-47.0); Hemoglobin 13.1 g/dl (12.0-16.0); Imm Gran Abs Auto 0.01 X10*3/uL (0.00-0.03); Imm Gran Pct Auto 0.1 % (0.0-0.4); Lymphocytes Absolute Auto 1.6 X10*3/uL (1.2-4.9); Lymphocytes Percent Auto 23.5 % (20-40); Mean Corpuscular Hemoglobin 31.6 pg (27.0-33.0); Mean Corpuscular Volume 95.9 fL (80.0-98.0); Mean Platelet Volume 9.7 fL (9.4-12.3); Monocytes Percent Auto 15.1 % (2-11); Neutrophils Absolute Auto 3.9 x10*3/uL (2.0-8.3); Neutrophils Percent Auto 57.9 % (45-73); Platelet Count 532 X10*3/uL (160-400); Red Blood Count 4.14 X10*6/uL (4.20-5.50); Red Cell Distribution Width 13.4 % (11.0-16.0); White Blood Count 6.8 X10*3/uL (4.8-10.8)
[2023-12-21 12:21] LABS: Anion Gap 10 (12-20); Blood Urea Nitrogen 16 mg/dL (9-16); Calcium 8.7 mg/dL (8.4-10.2); Carbon Dioxide 22 mmol/L (22-29); Chloride 111 mmol/L (96-108); Estimated Glomerular Filt Rate > 60; Glucose Random 102 mg/dL (60-115); Potassium 4.1 mmol/L (3.3-5.1); Sodium 139 mmol/L (135-145)
== END 2023-12-21 10:13 | disposition home or self-care (01) ==
LOC: HO.CHCLDS 10:12
PROVIDERS: Visit Provider Family Medicine
DX: Z01.810 Encounter for preprocedural cardiovascular examination (principal); R20.0 Anesthesia of skin; R20.2 Paresthesia of skin; M54.16 Radiculopathy, lumbar region; M47.816 Spondylosis without myelopathy or radiculopathy, lumbar region; M53.3 Sacrococcygeal disorders, not elsewhere classified
CPT/HCPCS: 36415; 80048; 85025; 85610; 99212

== ENCOUNTER 2023-12-21 15:08 | Outpatient (AMB) | payer MEDICAID, SELFPAY ==
--- NOTE | 2023-12-21 15:11 | A.OFFVIS_ITS ---
Vital Signs 12/21/23 15:16 Height 5 ft 3.5 in Weight 124 lb 8 oz BMI 21.7 BP 123/58 L Blood Pressure Location Lt brachial Position Sitting Respiration 16 Pulse 75 Pulse Source Pulse Oximeter Pulse Oximetry (%) 100 Oxygen Delivery Method Room Air Intake Visit Reasons: discuss other options Intake Note: Patient comes in to discuss options. Reports pain 10/21. Allergies No Known Allergies Allergy (Verified 12/21/23 15:16) HPI Comments Details: Peri is very pleasant 42 years old female who is in my office for the follow- up .In the past she received medial branch block with me in lower lumbar spine which did not alleviate her pain at all, she also received transforaminal epidural steroid injection (by Dr. Ferrer) which also resulted in no improvement. She is currently under observation of Dr. Hammond, she is planned to go for L4-5 posterior fusion. She was rescheduled for 11/23/2023 to go for this procedure, then it was canceled again because of the dehiscence of the a panniculectomy wound and now it is scheduled for 01/04/2024. She requests me to help her pain until the surgery. She requests me to increase the dose of methocarbamol. I will increase it to 1000 mg t.i.d.. This is still a moderate dose maximal dose of methocarbamol is 4-5000 mg in divided doses a day. She is also requesting me to prescribe her Tylenol Arthritis 650 mg extended- release. I will prescribe her this medication. She was diagnose with nerve root compression cervical spine. She is considered to be a candidate for cervical surgery as well. In the past on physical exam attention was attracted to sacroiliac joint problems on the right. she went for bariatric surgery and after significant pain reduction she went for panniculectomy. Unfortunately the panniculectomy got complicated by wound dehiscence. Dr. Hammond he is reluctant to operate on her it was planned before until the dehiscence wound will completely heal. She requests me to prescribe some medications to temporize her pain syndrome. [facility] Medical History (Updated 09/22/23 @ 16:30 by Noel Badillo MD) Postgastrectomy malabsorption History of headache Arthritis Fibromyalgia HTN (hypertension) Intra-abdominal adhesions Depression Hidradenitis Abnormal EKG Bipolar 1 disorder Hx of borderline personality disorder ADHD Chronic post-traumatic stress disorder (PTSD) Pre-op evaluation Surgical History S/P laparoscopic sleeve gastrectomy Hx of esophagogastroduodenoscopy Gastric bypass status for obesity Family History Mother Obesity Diabetes mellitus Sister No problems noted. Son Leukemia Obesity Social History Are you a primary primary care nurse practitioner to a significant other at home: No Do you presently have visiting nurse or other home services: No Alcohol intake: never Patient Tobacco Use Status: Never used Tobacco Advance Directives Date on File: 05/15/21 service: No Current occupational status: unemployed Review of Systems Const All systems reviewed & are unremarkable except as noted in HPI and below Physical Exam Vital Signs: Last Vital Signs Pulse 75 12/21/23 15:16 Resp 16 12/21/23 15:16 BP 123/58 L 12/21/23 15:16 Pulse Ox 100 12/21/23 15:16 Oxygen Delivery Method Room Air 12/21/23 15:16 BMI result Body Mass Index 21.7 General: Appears afebrile. Alert and oriented. Mood and affect appropriate. Follows and participates in conversation appropriately. Respiratory effort is unlabored. Able to transition from sit to stand unassisted. Ambulates with bilaterally normal heel strike and toe off Back/Spine/Pelvis Other: Lumbar extension and flexion reproduces significant pain. Right groin pain with I/E hip rotations. Multiple widespread TTPs bilaterally, including upper and lower extremities. Marcus test, pelvic compression test, Gaenslen test, all positive on the right. Cervical Spine: cervical ROM normal, cervical muscular tenderness and No Cervical spine tenderness Thoracic/Lumbar Spine: thoracic and lumbar spine normal to inspection, Lasegue's sign positive on the right and diffuse, paraspinal muscle tenderness, No thoracic spinal tenderness, lumbar spinal tenderness and straight leg raise positive right at 50 degrees Pelvis: buttock tenderness on the right Sacroiliac joints: bilaterally (+Marcus's test) tender to palpation Extrem General: Yes capillary refill normal, Yes no clubbing, cyanosis or edema and Yes no calf tenderness Right lower extremity: hip/thigh Details: tenderness (lateral hip); no swelling, no ecchymosis, no crepitus and no unusual warmth Assessment & Plan Assessment & Plan (1) Numbness and tingling in both hands: Code(s): R20.0 - Anesthesia of skin; R20.2 - Paresthesia of skin Category: Medical (2) Numbness and tingling of right leg: Code(s): R20.0 - Anesthesia of skin; R20.2 - Paresthesia of skin Category: Medical (3) Lumbar radiculopathy: Code(s): M54.16 - Radiculopathy, lumbar region Category: Medical (4) Lumbar facet arthropathy: Code(s): M47.816 - Spondylosis without myelopathy or radiculopathy, lumbar region Category: Medical (5) Right hip pain: Code(s): M25.551 - Pain in right hip Category: Medical (6) Sacroiliitis: Code(s): M46.1 - Sacroiliitis, not elsewhere classified Category: Medical (7) Sacroiliac joint dysfunction of right side: Code(s): M53.3 - Sacrococcygeal disorders, not elsewhere classified Category: Medical Plan She is scheduled for neurosurgery procedure however unable to go for it because of the implications from panniculectomy/wound dehiscence. Finally she will be able to be scheduled for surgery to be performed on 01/04/2024. Hopefully this will help most of her lower back pain. In the past sacroiliac joint problem on the left worse also considered by me.. Sacroiliac joint diagnostic injection of the left was planned in the past to help her pain.. She requests me to increase the dose of methocarbamol and also order Tylenol Arthritis 650 mg for her because [id number] it is quite expensive for her she can not afford it. This patient will schedule appointment with me as needed in the future after she goes for a surgery with Dr. Hammond. Medications: New methocarbamol 1,000 mg PO TID 90 tabs 5RF 30 days acetaminophen ER (Tylenol Arthritis Pain) 650 mg PO Q8H PRN 90 tabs 5RF pain 30 days Discontinued methocarbamol Discontinued Reason: Doctor's Order 750 mg PO Q8H 30 days PRN 90 tabs 6RF for muscle spasm M62.838 - Other muscle spasm Coding Level of Care Code Est Pt Level 3 (64667) Diagnoses Numbness and tingling in both hands R20.0; R20.2 Numbness and tingling of right leg R20.0; R20.2 Lumbar radiculopathy M54.16 Lumbar facet arthropathy M47.816 Right hip pain M25.551 Sacroiliitis M46.1 Sacroiliac joint dysfunction of right side M53.3
[2023-12-21 15:16] VITALS: BP 123/58; PULSE 75; RESP 16; O2SAT 100; BMI 21.7
== END 2023-12-21 15:22 | disposition home or self-care (01) ==
PROVIDERS: PCP Internal Medicine; Referring Provider Internal Medicine; Visit Provider Anesthesiology
DX: R20.0 Anesthesia of skin (principal); R20.2 Paresthesia of skin; M54.16 Radiculopathy, lumbar region; M47.816 Spondylosis without myelopathy or radiculopathy, lumbar region; M25.551 Pain in right hip; M46.1 Sacroiliitis, not elsewhere classified; M53.3 Sacrococcygeal disorders, not elsewhere classified
CPT/HCPCS: 99213

== ENCOUNTER 2023-12-22 | Outpatient (REF) | payer MEDICAID, SELFPAY ==
[2023-12-22 10:29] VITALS: BP 116/60; PULSE 89; RESP 16; O2SAT 99; BMI 22.5
--- NOTE | 2023-12-23 13:07 | HO.ANESPROP2 ---
HPI - Anesthesia Eval Consult details Narrative: 43yo F for L4-5 Oblique Lumbar Interbody Fusion, 01/31/24 Medically optimized s/p panniculectomy 08/2023 with GA-ETT 7 PONV: good effect with scop patch Anesthesia Pre-Procedure Meds Is the patient on any of the following meds?: GLP1/DPP4 PMFSH Active Problems Active Problems: All Active Problems Sacroiliac joint dysfunction of right side (Acute) Sacroiliitis (Acute) S/P panniculectomy (Acute) External incisional dehiscence (Acute) Ovarian cyst (Acute) Panniculitis (Acute) Spondylolisthesis, lumbar region (Acute) Right hip pain (Acute) Numbness and tingling of right leg (Acute) Numbness and tingling in both hands (Acute) Lumbar radiculopathy (Acute) Microscopic hematuria (Acute) Overweight (Acute) Excess skin (Acute) Neck pain (Acute) Urge incontinence of urine (Acute) Nocturia (Acute) Fibromyalgia, primary (Acute) Arthritis of right shoulder region (Acute) Impingement syndrome of right shoulder (Acute) Polyarthralgia (Acute) Sacroiliac joint pain (Acute) Lumbar facet arthropathy (Acute) Lumbar back pain with radiculopathy affecting left lower extremity (Acute) BMI 38.0-38.9,adult (Acute) Obesity (Acute) Morbid obesity (Acute) Postgastrectomy malabsorption (Acute) Intra-abdominal adhesions (Acute) S/P laparoscopic sleeve gastrectomy (Acute) Gastric bypass status for obesity (Acute) Past Medical History Medical History (Updated 12/22/23 @ 10:14 by Ashli Ivan RN) Back pain Diarrhea Numbness Insomnia Postgastrectomy malabsorption History of headache Arthritis Fibromyalgia HTN (hypertension) Intra-abdominal adhesions Depression Hidradenitis Abnormal EKG Bipolar 1 disorder Hx of borderline personality disorder ADHD Chronic post-traumatic stress disorder (PTSD) Pre-op evaluation Family History Family History Mother Obesity Diabetes mellitus Sister No problems noted. Son Leukemia Obesity Family history of problems with anesthesia: No Surgical History Surgical History S/P panniculectomy S/P laparoscopic sleeve gastrectomy Hx of esophagogastroduodenoscopy Gastric bypass status for obesity History of Problems with Anesthesia: Yes (PONV) Social History Social History Are you a primary health care sanitary technician to a significant other at home: No Do you presently have visiting nurse or other home services: No Alcohol intake: never Patient Tobacco Use Status: Never used Tobacco Advance Directives Date on File: 05/15/21 service: No Current occupational status: unemployed Meds Allergies Allergy/AdvReac Type Severity Reaction Status Date / Time No Known Allergies Allergy Verified 01/27/24 10:25 Home Medications ?Medication ?Instructions ?Recorded ?Confirmed ?Last Taken ?Type spironolactone 100 mg tablet 200 mg PO QAM 01/28/21 12/22/23 08/15/23 History ziprasidone HCl 80 mg capsule 2 cap PO BEDTIME 05/08/21 12/22/23 08/15/23 History amlodipine 5 mg tablet 5 mg PO QAM 07/23/22 12/22/23 08/16/23 History lidocaine 5 % topical ointment 1 appl topical DAILY PRN mild pain 07/23/22 12/22/23 Unknown History celecoxib 200 mg capsule 200 mg PO DAILY PRN moderate pain 07/29/22 12/22/23 08/02/23 History ondansetron HCl 4 mg tablet 8 mg PO Q8H PRN nausea/vomiting 12/02/22 12/22/23 Unknown History clonazepam 1 mg tablet 1 mg PO BEDTIME PRN anxiety 05/13/23 12/22/23 Unknown History duloxetine 30 mg capsule,delayed 30 mg PO BID 05/13/23 12/22/23 08/16/23 History release oxybutynin chloride 5 mg 5 mg PO BEDTIME 05/13/23 12/22/23 08/16/23 History tablet,extended release 24 hr methocarbamol 1,000 mg tablet 1,000 mg PO TID PRN Muscle Spasm 12/22/23 12/22/23 Unknown History oxycodone-acetaminophen 7.5 mg-325 1 tab PO Q6H PRN severe pain 12/22/23 12/22/23 Unknown History mg tablet pantoprazole 20 mg tablet,delayed 20 mg PO BID PRN Acid Reflux 12/22/23 12/22/23 Unknown History release Exam Height,Weight and Vital Signs: Height 5 ft 3 in Weight 57.606 kg Last Vital Signs Pulse 89 12/22/23 10:29 Resp 16 12/22/23 10:29 BP 116/60 12/22/23 10:29 Pulse Ox 99 12/22/23 10:29 O2 Del Method Room Air 12/22/23 10:29 Pertinent Lab Results Pertinent Lab Results: Laboratory Tests 12/22/23 11:15 Blood Type O Positive Antibody Screen NEGATIVE Laboratory Tests 12/21/23 10:18 WBC 6.8 Hgb 13.1 Hct 39.7 Plt Count 532 H Sodium 139 Potassium 4.1 Chloride 111 H Carbon Dioxide 22 BUN 16 Creatinine 0.78 Narrative Narrative: EKG 11/2023 SR Slight left precordial repolarization disturbance Exercise stress 2021 Protocol: JAYRO Max HR: 173 BPM 95% of Pred: 182 BPM Max BP: 140/084 mmHG Max Work Load: 8.5 METS Exercise stress test with exercise 7 min of Jayro protocol, without anginal symptoms, with one PVC, with normotensive response to exercise, without EKG changes meeting criteria for ischemia. Test reviewed with Dr Vila. Assessment and Plan Assessment Anesthesia Assessment: Anesthesia Plan Discussed and PAT Visit Final Anesthetic Review Family History of Problems with Anesthesia: No History of Problems with Anesthesia: Yes (PONV)
== END 2023-12-22 00:01 ==
LOC: HO.PAT
PROVIDERS: PCP Internal Medicine; Visit Provider Neurological Surgery
DX: Z01.812 Encounter for preprocedural laboratory examination (principal); M43.16 Spondylolisthesis, lumbar region
CPT/HCPCS: 86850; 86900; 86901

== ENCOUNTER 2023-12-23 22:33 | Emergency (ER) | payer MEDICAID, SELFPAY ==
--- NOTE | 2023-12-23 | ECG_ITS ---
Test Reason : CHEST PAIN Blood Pressure : / mmHG Vent. Rate : 074 BPM Atrial Rate : 074 BPM P-R Int : 164 ms QRS Dur : 080 ms QT Int : 354 ms P-R-T Axes : 045 067 -49 degrees QTc Int : 392 ms Normal sinus rhythm Cannot rule out Anterior infarct , age undetermined Abnormal ECG When compared with ECG of 23-APR-2021 09:32, Nonspecific T wave abnormality, worse in Inferior leads Referred By: Generic ED Physician Electronically Signed By:SANTOS MENDENHALL MD
[2023-12-23 22:46] VITALS: BP 117/68; PULSE 86; RESP 18; TEMP 36.2; O2SAT 99; BMI 21.1
[2023-12-23 23:10] LABS: MANUAL DIFF FLAG NO
[2023-12-23 23:11] LABS: Basophils Percent Auto 0.6 % (0-2); Eosinophils Absolute Auto 0.1 X10*3/uL (0.0-0.4); Eosinophils Percent Auto 2.1 % (0-4); Hematocrit 36.1 % (37.0-47.0); Hemoglobin 12.4 g/dl (12.0-16.0); Imm Gran Abs Auto 0.02 X10*3/uL (0.00-0.03); Imm Gran Pct Auto 0.3 % (0.0-0.4); Lymphocytes Absolute Auto 2.6 X10*3/uL (1.2-4.9); Lymphocytes Percent Auto 37.6 % (20-40); Mean Corpuscular HGB Conc 34.3 g/dl (31.0-35.0); Mean Corpuscular Hemoglobin 32.5 pg (27.0-33.0); Mean Corpuscular Volume 94.8 fL (80.0-98.0); Mean Platelet Volume 9.4 fL (9.4-12.3); Monocytes Percent Auto 14.3 % (2-11); Neutrophils Absolute Auto 3.1 x10*3/uL (2.0-8.3); Neutrophils Percent Auto 45.1 % (45-73); Platelet Count 463 X10*3/uL (160-400); Red Blood Count 3.81 X10*6/uL (4.20-5.50); Red Cell Distribution Width 13.3 % (11.0-16.0); White Blood Count 6.8 X10*3/uL (4.8-10.8)
[2023-12-23 23:25] LABS: Alanine Aminotransferase 22 U/L (0-31); Albumin Level 3.3 g/dL (3.5-5.0); Alkaline Phosphatase 84 U/L (39-117); Anion Gap 12 (12-20); Aspartate Amino Transferase 31 U/L (5-31); Bilirubin Total 0.2 mg/dL (0.0-1.0); Blood Urea Nitrogen 18 mg/dL (9-16); Calcium 8.7 mg/dL (8.4-10.2); Carbon Dioxide 19 mmol/L (22-29); Chloride 109 mmol/L (96-108); Creatinine Clr Calc Pharmacy 76.5; Estimated Glomerular Filt Rate > 60; Glucose Random 107 mg/dL (60-115); Lipase 13 U/L (8-78); Sodium 136 mmol/L (135-145); Total Protein 6.1 g/dL (6.5-8.0)
[2023-12-23 23:34] LABS: Troponin-I High Sensitivity < 2.7 ng/L (<3.5-17.0)
[2023-12-23 23:51] LABS: Influenza A PCR NEGATIVE (Negative); Influenza B PCR NEGATIVE (Negative); Resp Syncy Virus RNA Qual PCR NEGATIVE (Negative); SARS COV2 PCR INHOUSE NEGATIVE (Negative)
== END 2023-12-24 00:30 | disposition left against medical advice (07) ==
LOC: HO.ED 12-24 00:30
PROVIDERS: Emergency Provider Emergency Medicine; PCP Internal Medicine
DX: R19.7 Diarrhea, unspecified (principal); R51.9 Headache, unspecified; R68.83 Chills (without fever); Z03.818 Encounter for observation for suspected exposure to other biological agents ruled out
CPT/HCPCS: 0241U; 80053; 83690; 84484; 85025; 93005; 99283

== ENCOUNTER → 2023-12-23 22:53 | Outpatient (BNV) | payer MEDICAID, SELFPAY | PROVIDERS: Emergency Provider Emergency Medicine; PCP Internal Medicine; Visit Provider Internal Medicine Cardiovascular Disease | DX: R94.31 Abnormal electrocardiogram [ECG] [EKG] (principal) | CPT/HCPCS: 93010 ==

== ENCOUNTER 2023-12-24 | Outpatient (REF) | payer MEDICAID, SELFPAY ==
[2023-12-27 13:56] LABS: Adenovirus F 40/41 Not Detected (Not Detect.); Astrovirus Not Detected (Not Detect.); Campylobacter Not Detected (Not Detect.); Cryptosporidium Not Detected (Not Detect.); Cyclospora cayetanensis Not Detected (Not Detect.); E. coli EAEC Not Detected (Not Detect.); E. coli EPEC Not Detected (Not Detect.); E. coli ETEC Not Detected (Not Detect.); E. coli STEC Not Detected (Not Detect.); Entamoeba histolytica Not Detected (Not Detect.); Giardia lamblia Not Detected (Not Detect.); Norovirus GI/GII Not Detected (Not Detect.); Plesiomonas shigelloides Not Detected (Not Detect.); Rotavirus A Not Detected (Not Detect.); Salmonella Not Detected (Not Detect.); Sapovirus Not Detected (Not Detect.); Shigella sp./EIEC Not Detected (Not Detect.); Vibrio Not Detected (Not Detect.); Vibrio Cholerae Not Detected (Not Detect.); Yersinia enterocolitica Not Detected (Not Detect.)
== END 2023-12-24 00:01 | disposition home or self-care (01) ==
LOC: HO.LNP
PROVIDERS: Visit Provider Internal Medicine
DX: R19.7 Diarrhea, unspecified (principal)
CPT/HCPCS: 87507

== ENCOUNTER 2024-01-06 13:16 | Outpatient (REF) | payer MEDICAID, SELFPAY ==
[2024-01-06 14:57] LABS: C Reactive Protein < 0.10 mg/dL (< or = 0.50)
== END 2024-01-06 13:17 | disposition home or self-care (01) ==
LOC: HO.CHCLDS 13:16
PROVIDERS: Visit Provider Internal Medicine
DX: R19.7 Diarrhea, unspecified (principal)
CPT/HCPCS: 36415; 86140

== ENCOUNTER 2024-01-19 09:11 | Outpatient (REF) | payer MEDICAID, SELFPAY ==
[2024-01-28 03:19] LABS: Calprotectin, Fecal 11 mcg/g
== END 2024-01-19 09:12 | disposition home or self-care (01) ==
LOC: HO.LNP 09:11
PROVIDERS: Visit Provider Internal Medicine
DX: R19.7 Diarrhea, unspecified (principal)
CPT/HCPCS: 83993

== ENCOUNTER 2024-01-26 11:57 | Outpatient (REF) | payer MEDICAID, SELFPAY ==
[2024-01-27 08:24] LABS: HBS Num1 20.73 mIU/mL (0-7.99); HBsAGNum1 0.26 S/CO (0.00-0.99); HIV AB/AG Nonreactive (Nonreactive); HIV Num 1 0.07 S/CO (0.00-0.99); Hepatitis B Surface Antigen Negative (Negative); ~Hepatitis B Surface Antibody REACTIVE (Nonreactive); ~Hepatitis C Antibody Nonreactive (Nonreactive)
== END 2024-01-26 11:58 | disposition home or self-care (01) ==
LOC: HO.CHCLDS 11:57
PROVIDERS: Visit Provider Internal Medicine
DX: R19.7 Diarrhea, unspecified (principal)
CPT/HCPCS: 36415; 86706; 86803; 87340; 87389

== ENCOUNTER 2024-01-27 10:08 | Outpatient (AMB) | payer MEDICAID, SELFPAY ==
--- NOTE | 2024-01-27 10:19 | A.OFFVIS_ITS ---
VS Expanded 01/27/24 10:32 BP 130/78 Blood Pressure Location Rt brachial Blood Pressure Position Sitting Pulse 87 Pulse Source Pulse Oximeter Temp 97.9 F Temperature Source Temporal Artery Scan Pulse Oximetry 100 Oxygen Delivery Method Room Air Height 5 ft 3.5 in Weight 117 lb 3.2 oz BMI 20.4 Body Fat % 16.6 Body Fat Mass 19.4 Fat Free Mass 97.6 Visceral Fat Rating 2.0 Body Water % 59.5 Body Water Mass 69.6 Muscle Mass/Score 92.6 Basal Metabolic Rate/Score 1,291 Intake Visit Reasons: (ov) PO LSG 05/13/21 - PO s/p Panniculectomy 08/16/23 Allergies No Known Allergies Allergy (Verified 01/27/24 10:25) HPI Comments Details: 43-year-old female returns to the office today in follow-up. She is status post panniculectomy performed 08/16/2023 and sleeve gastrectomy performed 05/13/2021. She did have dehiscence of the midline of the panniculectomy necessitating referral to the wound clinic. She has since healed from that. She presents to the office today in follow-up. Weight today is 117.2 lb with a BMI of 20.4. She states that she was scheduled to have laminectomy of the lumbar spine but this has been put on hold as her primary care physician whom she said she saw this month said she should not have surgery as she may have underlying Crohn's disease. Workup for this is pending. She is scheduled to see GI on 02/07/2024. She additionally is receiving nutritional recommendations through her primary care physician who suggested she do boost ready to drink shake 2 per day. She states that she is doing this as well as a Argentine yogurt and snacking on fruit such as oranges, bananas, berries. She does state that she does does have protein including beef, fish, chicken although is unable to quantify how much. She does not like vegetables very much but does eat salad. She reports taking a multivitamin. She is not exercising regularly but is walking her dog daily. [facility] Medical History (Updated 12/22/23 @ 10:14 by Ashli Ivan RN) Back pain Diarrhea Numbness Insomnia Postgastrectomy malabsorption History of headache Arthritis Fibromyalgia HTN (hypertension) Intra-abdominal adhesions Depression Hidradenitis Abnormal EKG Bipolar 1 disorder Hx of borderline personality disorder ADHD Chronic post-traumatic stress disorder (PTSD) Pre-op evaluation Surgical History S/P panniculectomy S/P laparoscopic sleeve gastrectomy Hx of esophagogastroduodenoscopy Gastric bypass status for obesity Family History Mother Obesity Diabetes mellitus Sister No problems noted. Son Leukemia Obesity Social History Are you a primary outdoor emergency care technician to a significant other at home: No Do you presently have visiting nurse or other home services: No Alcohol intake: never Patient Tobacco Use Status: Never used Tobacco Advance Directives Date on File: 05/15/21 service: No Current occupational status: unemployed Physical Exam Vital Signs: Last Vital Signs Temp 97.9 F 01/27/24 10:32 Pulse 87 01/27/24 10:32 BP 130/78 01/27/24 10:32 Pulse Ox 100 01/27/24 10:32 Oxygen Delivery Method Room Air 01/27/24 10:32 BMI result Body Mass Index 20.4 Skin Other: Transverse abdominal incision has healed. Assessment & Plan Assessment & Plan (1) S/P laparoscopic sleeve gastrectomy: Comment: 05/13/21 Code(s): Z98.84 - Bariatric surgery status Category: Surgical Plan: Patient is receiving nutritional care through her primary care physician. I did encourage her to continue the boost supplement although suggested increasing her vegetables to include green leafy vegetables such as broccoli or spinach or Kale. I suggested Argentine yogurt. She is walking as she is able. She is currently under the care of her primary care physician regarding the diarrhea and has been prescribed prednisone. She additionally has been referred to GI for workup of possible Crohn's disease. She certainly may continue to follow-up here in our office and we will have her return to the office for her 3 year postop appointment in May. Recommend bariatric multivitamin as well as calcium plus D. (2) S/P panniculectomy: Code(s): Z98.890 - Other specified postprocedural states Category: Surgical Plan: Healed
[2024-01-27 10:32] VITALS: BP 130/78; PULSE 87; TEMP 36.6; O2SAT 100; BMI 20.4
== END 2024-01-27 10:48 | disposition home or self-care (01) ==
PROVIDERS: PCP Internal Medicine; Visit Provider Physician Assistant Surgical
DX: L98.7 Excessive and redundant skin and subcutaneous tissue (principal); Z90.3 Acquired absence of stomach [part of]; Z98.84 Bariatric surgery status
CPT/HCPCS: 99213

== ENCOUNTER → 2024-01-27 10:08 | Outpatient (BNVA) | payer MEDICAID, SELFPAY | PROVIDERS: PCP Internal Medicine; Visit Provider Physician Assistant Surgical | DX: Z98.84 Bariatric surgery status (principal); Z98.890 Other specified postprocedural states | CPT/HCPCS: 99212 ==

== ENCOUNTER 2024-02-02 09:01 | Outpatient (REF) | payer MEDICAID, SELFPAY ==
--- NOTE | ~2024-02-02 | XR_ITS ---
EXAMINATION: XR RIBS, LEFT CLINICAL INFORMATION: tenderness and depression of the left lower rib cage COMPARISON: Chest radiograph 04/23/2021 TECHNIQUE: 3 views of the left ribs were obtained. FINDINGS: The visualized lungs are clear. No consolidation, pneumothorax, or pleural effusion. The cardiomediastinal silhouette and visualized pulmonary vasculature are normal. Osseous structures are unremarkable. Ribs are intact. No fractures are identified. XR/XR ribs LT 2V IMPRESSION: No acute osseous abnormalities. Electronically signed by: Alexy Lai MD 02/22/2024 05:12 PM DOMENICO
== END 2024-02-02 09:02 | disposition home or self-care (01) ==
LOC: HO.XRAY 09:01
PROVIDERS: PCP Internal Medicine; Visit Provider Internal Medicine
DX: R07.81 Pleurodynia (principal)
CPT/HCPCS: 71100

== ENCOUNTER 2024-02-07 15:00 | Outpatient (AMB) | payer MEDICAID, SELFPAY ==
[2024-02-07 15:10] VITALS: BP 139/90; PULSE 70; BMI 21.8
--- NOTE | 2024-02-07 15:10 | A.OFFVIS_ITS ---
Vital Signs 02/07/24 15:10 Height 5 ft 3.5 in Weight 124 lb 12.506 oz BMI 21.8 BP 139/90 H Blood Pressure Location Lt brachial Position Sitting Pulse 70 Intake Visit Reasons: incontinence on bowels Intake Note: Peri presents to in office visit today as a new patient for bowel incontinence. CC: Onset of fecal incontinence a year ago. Now worse per patient, she states that after she eats then food gets right through her . She also reports rectal mucous and pain around navel. Stools are most of the time watery and patient has to wear Depends underwear. Business Support Coordinator Required: No Accompanied by: Self / Same As Patient Allergies No Known Allergies Allergy (Verified 02/07/24 15:21) HPI HPI incontinence on bowels: Details: 43-year-old female with past medical history of panniculitis, status post panniculectomy, spondylolisthesis of lumbar region, lumbar radiculopathy, abdirahman yarthralgia, history of morbid obesity is here today for initial consultation. Patient reports that she lost over 100 lb and was able to do that by doing gastric bypass in 2011 at [facility], however patient lost weight and then she gained all of her weight back. Patient had postsurgical wound adhesions and excess skin and had panniculectomy. In 07/01/2021 patient had laparoscopic sleeve gastrectomy and last year she started developing symptoms of diarrhea no matter what she eats. Patient currently weighs 124 lb her BMI is 21.8. Patient reports that no matter what she eats solid or liquid she would have diarrhea almost immediately. Patient reports that she has been wearing diapers as time because she is upright that she will have accident. Patient denies any melena, hematochezia, unintentional weight loss. Patient has been followed in bariatric every few months. Last visit was 1 week ago. Patient denies any dyspepsia, dysphagia or odynophagia. Denies any chills or fevers. Patient denies any family history of inflammatory bowel disease. [facility] Medical History (Updated 02/21/24 @ 19:46 by Cristel Rendon, VP [employer]-) Overweight Morbid obesity Obesity BMI 38.0-38.9,adult Back pain Diarrhea Numbness Insomnia Postgastrectomy malabsorption History of headache Arthritis Fibromyalgia HTN (hypertension) Intra-abdominal adhesions Depression Hidradenitis Abnormal EKG Bipolar 1 disorder Hx of borderline personality disorder ADHD Chronic post-traumatic stress disorder (PTSD) Pre-op evaluation Surgical History (Updated 02/21/24 @ 19:48 by Cristel Rendon [facility]) S/P panniculectomy S/P laparoscopic sleeve gastrectomy Hx of esophagogastroduodenoscopy Gastric bypass status for obesity Family History Mother Obesity Diabetes mellitus Sister No problems noted. Son Leukemia Obesity Social History Are you a primary resident care associate to a significant other at home: No Do you presently have visiting nurse or other home services: No Alcohol intake: never Patient Tobacco Use Status: Never used Tobacco Advance Directives Date on File: 05/15/21 service: No Current occupational status: unemployed Review of Systems Const Denies weight gain and Denies weight loss ENT Reports no additional complaints, Denies dysphagia and Denies odynophagia Card Reports no additional complaints Resp Reports no additional complaints GI Reports abdominal pain, Denies belching, Denies melena, Reports bloating, Denies change in bowel habits, Denies dysphagia, Denies excessive flatus, Denies dyspepsia, Denies heartburn, Reports diarrhea, Reports loose stools, Denies nausea, Denies odynophagia and Denies vomiting Musc Reports no additional complaints Neuro Reports no additional complaints Psych Reports no additional complaints Endo Reports no additional complaints Physical Exam Vital Signs: Last Vital Signs Pulse 70 02/07/24 15:10 BP 139/90 H 02/07/24 15:10 BMI result Body Mass Index 21.8 Const General: healthy appearing, no acute distress and well developed Nutritional Appearance: well nourished Orientation/consciousness: patient oriented x3 Resp Effort & Inspection: normal respiratory effort, able to speak in complete sentences, no tracheal deviation and symmetric chest movement Auscultation: clear to auscultation bilaterally Cardio Rate: regular rate GI Inspection: No distended Palpation (GI): Soft to palpation, not firm, nontender and No hepatosplenomegaly present Auscultation: normal bowel sounds General: Yes no CVA tenderness Back/Spine/Pelvis Back: no CVA tenderness Skin General skin exam: elasticity normal, turgor normal and dry skin Neuro General: patient oriented x3 Psych Appearance: grossly normal Mental Status: mental status grossly normal Assessment & Plan Assessment & Plan (1) S/P laparoscopic sleeve gastrectomy: Code(s): Z98.84 - Bariatric surgery status Category: Surgical (2) S/P panniculectomy: Code(s): Z98.890 - Other specified postprocedural states Category: Surgical (3) Postprandial diarrhea: Code(s): K52.9 - Noninfective gastroenteritis and colitis, unspecified (4) Postgastrectomy malabsorption: Code(s): K91.2 - Postsurgical malabsorption, not elsewhere classified; Z90.3 - Acquired absence of stomach [part of] Category: Medical Plan Most likely patient is suffering from post gastrectomy malabsorption, will check her vitamin levels, will check fecal calprotectin and pancreatic elastase to rule out inflammatory bowel disease and pancreatic insufficiency. Will check vitamin B12, folate, vitamin-D level. Patient was encouraged to increase fiber in her diet and take probiotics. Discussed with patient low FODMAP diet. List of food recommended as well as list of food to avoid given to patient. Due to patient's change in the bowel pattern in the last year patient will be sent for colonoscopy. Patient will return to the office in 2 months, sooner on as needed basis. She is agreeable to this plan and verbalizes understanding of instructions. She was given the opportunity to ask questions and all questions answered. Thank you for allowing me to participate in her care Orders: Orders Vitamin B12 and Folate 02/07/24 R19.7 - Diarrhea, unspecified Calprotectin, Fecal 02/07/24 R15.9 - Full incontinence of feces Pancreatic Elastase-1 02/07/24 R10.9 - Unspecified abdominal pain Vitamin D 25-OH (D2 and D3) 02/07/24 E55.9 - Vitamin D deficiency, unspecified Coding Level of Care Code New Pt Level 4 (19133) Diagnoses S/P laparoscopic sleeve gastrectomy Z98.84 S/P panniculectomy Z98.890 Postprandial diarrhea K52.9 Postgastrectomy malabsorption K91.2; Z90.3 Time Spent (min) 45 Comment 30 minutes spent with patient and additional 15 minutes spent reviewing her records
== END 2024-02-07 15:50 | disposition home or self-care (01) ==
PROVIDERS: PCP Internal Medicine; Visit Provider Nurse Practitioner Family
DX: Z98.84 Bariatric surgery status (principal); Z98.890 Other specified postprocedural states; K52.9 Noninfective gastroenteritis and colitis, unspecified; K91.2 Postsurgical malabsorption, not elsewhere classified; Z90.3 Acquired absence of stomach [part of]
CPT/HCPCS: 99204

== ENCOUNTER → 2024-02-07 15:00 | Outpatient (BNVA) | payer MEDICAID, SELFPAY | PROVIDERS: PCP Internal Medicine; Visit Provider Nurse Practitioner Family | DX: K52.9 Noninfective gastroenteritis and colitis, unspecified (principal); K91.2 Postsurgical malabsorption, not elsewhere classified; R15.9 Full incontinence of feces; E55.9 Vitamin D deficiency, unspecified; R10.9 Unspecified abdominal pain; Z98.84 Bariatric surgery status; Z98.890 Other specified postprocedural states | CPT/HCPCS: 99212 ==

== ENCOUNTER 2024-02-29 07:27 | Outpatient (REF) | payer MEDICAID, SELFPAY ==
--- OUTSIDE RECORDS SUMMARY | 2024-02-29 07:31 | XMS_ITS | Continuity of Care Document ---
Author Organization [facility] ter Address [address] [place] [id number] Care Team Providers Care Call Center Professional Name Role Phone Max CAPELLAN, Carlo Primary Care Physician [facility] [id number] Date(s): 12/26/23 - 02/12/[address] [id number] Attending Physician: Oscar Aquino MD Admitting Physician: Oscar Aquino MD Referring Physician: Aubrey Gunn DO Encounter Type: Pre-Outpt Allergies, Adverse Reactions, Alerts Substance Criticality Severity Reaction Reaction Severity Status cyclobenzaprine ? reaction Act shalom Immunizations Given and Recorded Vaccine Date Status Refusal Reason influenza virus vaccine, inactivated 1 02/24/10 [facility] anthony tetanus-diphtheria toxoids (Td) 2 11/13/08 Given FluLaval (oldterm) 3 11/13/08 Given 1Admin Note: vis given 10/21/09 2Admin Note: VIS given dated 01/30/08 3Admin Note: VIS given dated 10/22/08 Medications Geodon 60 mg oral capsule 2 capsules, By Mouth, Daily, 0 Refills, Maintenance, 10/06/12 2:36:35 PM EDT Start Date: 10/06/12 Status: Ordered Repeat number: 1 Klonopin 1 mg oral tablet 1 tablet = 1 mg, By Mouth, Daily at bedtime, PRN Anxiety, 0 Refills, Maintenance, 05/23/13 2:02:10 PM EDT Start Date: 05/23/13 Status: Ordered Repeat number: 1 minocycline 50 mg oral tablet 1 tablet = 50 mg, By Mouth, Daily, 0 Refills, Maintenance, 03/28/12 9:55:38 AM EST Start Date: 03/28/12 Status: Ordered Repeat number: 1 Multivitamin By Mouth, Daily, 0 Refills, Maintenance, 03/28/12 9:56:10 AM EST Start Date: 03/28/12 Status: Ordered Repeat number: 1 omeprazole 20 mg oral enteric coated capsule 1 capsule = 20 mg, By Mouth, 2 times a day, # 60 capsule, 6 Refills, Maintenance, 08/29/20 2:01:00 PM EDT, [facility]/pharmacy #[id number] Start Date: 08/29/20 Status: Ordered Quantity: 60.0 Unit: capsule Repeat number: 7 Spironolactone By Mouth, 0 Refills, Maintenance, 07/30/10 6:39:26 PM EDT Start Date: 07/30/10 Status: Ordered Repeat number: 1 Problem List Condition Confirmation Course Effective Dates Status Health St atus Informant Bipolar disorder Confirmed Active Obesity (BMI 30-39.9) Confirmed Active Depression Confirmed Active Infertility, female, secondary Confirmed Active PCOS (polycystic ovarian syndrome) Confirmed Active Social History Social History Type Response Smoking Status Never (less than 100 in lifetime) entered on: 06/08/18 Sex Sex Representation Female (finding) Patient Care team information Care Team Personnel Name: Carlo Santana MD Position: [facility] Outreach Member Role: PCP Address: [address] [place] [address] Telecom: Care Team Related Persons Name: DOREEN LANDIN Insurance Providers Guarantor name: LEWIS ABAD Health Plan Information #: 1 Payer: [employer] Member Number: [id number] Policy Number: NA Group Number: NA Health Plan Information #: 2 Payer: [employer] Member Number: [id number] Policy Number: NA Group Number: NA
[2024-02-29 09:12] LABS: Folate 6.6 ng/mL (> or = 4.0); Vitamin B12 643 pg/mL (200-900)
[2024-03-05 11:04] LABS: Vitamin D 25-OH, D2 <4 ng/mL; Vitamin D 25-OH, D3 24 ng/mL; Vitamin D 25-OH, Total 24 ng/mL (30-100)
== END 2024-02-29 07:28 | disposition home or self-care (01) ==
LOC: HO.LAB 07:27
PROVIDERS: PCP Internal Medicine; Visit Provider Nurse Practitioner Family
DX: R19.7 Diarrhea, unspecified (principal); E55.9 Vitamin D deficiency, unspecified
CPT/HCPCS: 36415; 82306; 82607; 82746

== ENCOUNTER 2024-03-08 08:32 | Outpatient (REF) | payer MEDICAID, SELFPAY ==
[2024-03-13 18:54] LABS: Pancreatic Elastase-1 501 mcg/g (>200)
[2024-03-14 19:09] LABS: Calprotectin, Fecal 368 mcg/g
== END 2024-03-08 08:33 | disposition home or self-care (01) ==
LOC: HO.LAB 08:32
PROVIDERS: PCP Internal Medicine; Visit Provider Nurse Practitioner Family
DX: R15.9 Full incontinence of feces (principal); R10.9 Unspecified abdominal pain
CPT/HCPCS: 82656; 83993

== ENCOUNTER 2024-03-16 09:12 | Outpatient (AMB) | payer MEDICAID, SELFPAY ==
[2024-03-16 09:16] VITALS: BP 124/62; PULSE 64; O2SAT 100; BMI 22.5
--- NOTE | 2024-03-16 09:16 | A.OFFVIS_ITS ---
Vital Signs 03/16/24 09:16 Height 5 ft 3 in Weight 126 lb 15.78 oz BMI 22.5 BP 124/62 Blood Pressure Location Lt brachial Position Sitting Pulse 64 Pulse Source Pulse Oximeter Pulse Oximetry (%) 100 Oxygen Delivery Method Room Air Intake Visit Reasons: Discuss colo FUV Intake Note: ESTABLISHED PATIENT Reason; 2 mos FUV. Changes/concerns? Discuss colo. Needs pads, PCP ordered previously but was not approved. Allergies No Known Allergies Allergy (Verified 03/16/24 09:16) HPI HPI Discuss colo FUV: Details: LAST VISIT: S/P laparoscopic sleeve gastrectomy S/P panniculectomy Postprandial diarrhea Postgastrectomy malabsorption Plan Most likely patient is suffering from post gastrectomy malabsorption, will check her vitamin levels, will check fecal calprotectin and pancreatic elastase to rule out inflammatory bowel disease and pancreatic insufficiency. Will check vitamin B12, folate, vitamin-D level. Patient was encouraged to increase fiber in her diet and take probiotics. Discussed with patient low FODMAP diet. List of food recommended as well as list of food to avoid given to patient. Due to patient's change in the bowel pattern in the last year patient will be sent for colonoscopy. Patient will return to the office in 2 months, sooner on as needed basis. She is agreeable to this plan and verbalizes understanding of instructions. She was given the opportunity to ask questions and all questions answered. ? Thank you for allowing me to participate in her care Orders Orders Vitamin B12 and Folate 02/07/24 R19.7 Calprotectin, Fecal 02/07/24 R15.9 Pancreatic Elastase-1 02/07/24 R10.9 Vitamin D 25-OH (D2 and D3) 02/07/24 E55.9 TODAY'S VISIT: Patient is here today for follow-up and to discuss lab results. Normal pancreatic elastase, vitamin-D level slightly low. Patient is taking supplements. Fecal calprotectin continues to be high. Patient reports no family history of IBD. She continues to have a postprandial loose stools. Denies any mucus or blood in her stool. Patient reports that she is trying to avoid dietary triggers. Trying to eat more fiber. Takes fiber supplements. Symptoms slightly better but she continues to have loose stools. Patient denies melena, hematochezia, unintentional weight loss or ribbon like stools. Patient denies any dyspepsia, dysphagia or odynophagia. Patient reports pain in the lower abdomen, over the area where she surgeries. Patient reports feeling tender to touch. Feeling like she is swollen and hard in low pelvic area where she had her surgery [facility] Medical History (Updated 03/16/24 @ 09:54 by Cristel Rendon, [facility]-) Elevated fecal calprotectin Overweight Morbid obesity Obesity BMI 38.0-38.9,adult Back pain Diarrhea Numbness Insomnia Postgastrectomy malabsorption History of headache Arthritis Fibromyalgia HTN (hypertension) Intra-abdominal adhesions Depression Hidradenitis Abnormal EKG Bipolar 1 disorder Hx of borderline personality disorder ADHD Chronic post-traumatic stress disorder (PTSD) Pre-op evaluation Surgical History S/P panniculectomy S/P laparoscopic sleeve gastrectomy Hx of esophagogastroduodenoscopy Gastric bypass status for obesity Family History Mother Obesity Diabetes mellitus Sister No problems noted. Son Leukemia Obesity Social History Are you a primary caretaker resort to a significant other at home: No Do you presently have visiting nurse or other home services: No Alcohol intake: never Patient Tobacco Use Status: Never used Tobacco Advance Directives Date on File: 05/15/21 service: No Current occupational status: unemployed Review of Systems Const Denies weight gain and Denies weight loss ENT Reports no additional complaints, Denies dysphagia and Denies odynophagia Card Reports no additional complaints Resp Reports no additional complaints GI Reports abdominal pain, Denies belching, Denies melena, Reports bloating, Denies change in bowel habits, Denies dysphagia, Denies excessive flatus, Denies dyspep yomi, Denies heartburn, Denies diarrhea, Reports loose stools, Denies nausea, Denies odynophagia and Denies vomiting Reports no additional complaints Musc Reports no additional complaints Neuro Reports no additional complaints Psych Reports no additional complaints Endo Reports no additional complaints Physical Exam Vital Signs: Last Vital Signs Pulse 64 03/16/24 09:16 BP 124/62 03/16/24 09:16 Pulse Ox 100 03/16/24 09:16 Oxygen Delivery Method Room Air 03/16/24 09:16 BMI result Body Mass Index 22.5 Const General: healthy appearing, no acute distress and well developed Nutritional Appearance: well nourished Orientation/consciousness: patient oriented x3 Resp Effort & Inspection: normal respiratory effort, able to speak in complete sentences, no tracheal deviation and symmetric chest movement Auscultation: clear to auscultation bilaterally Cardio Rate: regular rate GI Other: Postsurgical scars Inspection: No distended Palpation (GI): Soft to palpation, not firm, Tenderness to palpation present (GI) and No hepatosplenomegaly present Auscultation: normal bowel sounds General: Yes no CVA tenderness Back/Spine/Pelvis Back: no CVA tenderness Skin General skin exam: elasticity normal, turgor normal and dry skin Neuro General: patient oriented x3 Psych Appearance: grossly normal Mental Status: mental status grossly normal Assessment & Plan Assessment & Plan (1) S/P laparoscopic sleeve gastrectomy: Code(s): Z98.84 - Bariatric surgery status Category: Surgical (2) S/P panniculectomy: Code(s): Z98.890 - Other specified postprocedural states Category: Surgical (3) Postgastrectomy malabsorption: Code(s): K91.2 - Postsurgical malabsorption, not elsewhere classified; Z90.3 - Acquired absence of stomach [part of] Category: Medical (4) Elevated fecal calprotectin: Code(s): R19.5 - Other fecal abnormalities Category: Medical (5) Postprandial diarrhea: Code(s): K52.9 - Noninfective gastroenteritis and colitis, unspecified Plan Patient continues to have a positive fecal calprotectin. Will schedule her for colonoscopy. Message will be sent to surgical schedulers to book that for patient. In the meantime I will send patient for CT enterography to rule out IBD. Patient will get BUN and creatinine before going for the scan. Patient reports that her bowels are better, less diarrhea. Patient is avoiding dietary triggers. Eating very small amounts. Abdominal pain and tenderness in the lower abdomen possible adhesion versus ventral post surgical hernia. Patient denies any fever or chills. Status post panniculectomy. Patient denies any melena, hematochezia. Patient did not lose any more weight currently her weight is stable at 126. Patient has a follow-up appointment with me in April. She is agreeable to current plan of care and verbalizes understanding of instructions. She was given the opportunity to ask questions and all questions answered. Thank you for allowing me to participate in her care Orders: Orders Blood Urea Nitrogen Today R10.11 - Right upper quadrant pain CT enterography Today R19.5 - Other fecal abnormalities Creatinine Today R10.11 - Right upper quadrant pain Coding Level of Care Code Est Pt Level 4 (32794) Diagnoses S/P laparoscopic sleeve gastrectomy Z98.84 S/P panniculectomy Z98.890 Postgastrectomy malabsorption K91.2; Z90.3 Elevated fecal calprotectin R19.5 Postprandial diarrhea K52.9 Time Spent (min) 35 Comment 20 minutes spent with patient and additional 15 minutes spent reviewing her records
== END 2024-03-16 09:49 | disposition home or self-care (01) ==
PROVIDERS: PCP Internal Medicine; Visit Provider Nurse Practitioner Family
DX: Z98.84 Bariatric surgery status (principal); Z98.890 Other specified postprocedural states; K91.2 Postsurgical malabsorption, not elsewhere classified; Z90.3 Acquired absence of stomach [part of]; R19.5 Other fecal abnormalities; K52.9 Noninfective gastroenteritis and colitis, unspecified
CPT/HCPCS: 99214

== ENCOUNTER → 2024-03-16 09:12 | Outpatient (BNVA) | payer MEDICAID, SELFPAY | PROVIDERS: PCP Internal Medicine; Visit Provider Nurse Practitioner Family | DX: K91.2 Postsurgical malabsorption, not elsewhere classified (principal); K52.9 Noninfective gastroenteritis and colitis, unspecified; R19.5 Other fecal abnormalities; Z90.3 Acquired absence of stomach [part of]; Z98.890 Other specified postprocedural states; Z98.84 Bariatric surgery status | CPT/HCPCS: 99212 ==

== ENCOUNTER 2024-04-05 09:34 | Outpatient (REF) | payer MEDICAID, SELFPAY ==
--- NOTE | ~2024-04-05 | CT_ITS ---
EXAMINATION: CT ABDOMEN PELVIS ENTEROGRAPHY WITHOUT IV CONTRAST HISTORY: R19.5 - Other fecal abnormalities COMPARISON: There are no prior studies for comparison. TECHNIQUE: CT scan of the abdomen and pelvis was performed following administration of 85 mL Omnipaque 350 using standard departmental protocol. Coronal and sagittal reformatted images were generated and reviewed. The patient received low density Volumen oral contrast material for CT enterography. This CT exam was performed with one or more of the following dose reduction techniques: automated exposure control, adjustment of the mA and/or kV according to patient size, use of iterative reconstruction technique. DLP: 295 mGy-cm FINDINGS: LOWER CHEST: The visualized lung bases are clear. There is no pleural effusion. CARDIOVASCULATURE: The heart is normal in size. There is no pericardial effusion. LIVER: The liver is normal in size and contour. No liver mass is identified. The hepatic and portal veins are patent. GALLBLADDER / BILE DUCTS: The gallbladder is unremarkable. There is no intra or extrahepatic biliary ductal dilatation. SPLEEN: The spleen is normal in size. No focal splenic lesion is identified. PANCREAS: The pancreas is unremarkable in appearance. ADRENAL GLANDS: Within normal limits. KIDNEYS/RETROPERITONEUM: No renal calculi are identified. There is no hydronephrosis. There is a 1.5 cm cyst at the upper pole of the left kidney. LYMPH NODES: No abdominal or pelvic lymphadenopathy. VASCULATURE: The abdominal aorta is normal in caliber. MESENTERY/PERITONEUM: No free fluid. No masses. There is no free intraperitoneal gas. STOMACH: Postsurgical changes are noted involving the stomach. SMALL BOWEL: Small bowel is normal in caliber and is distended with oral contrast. There is a small bowel anastomosis in the left upper quadrant. There is no abnormal small bowel mucosal hyperenhancement. No stricture is seen. COLON: The colon is unremarkable. APPENDIX: Normal. URINARY BLADDER/PELVIC ORGANS: The urinary bladder is unremarkable. The uterus is unremarkable. There is a 5.2 cm cystic structure in the right posterior pelvis, likely related to the right ovary. The left ovary is unremarkable. BONES / SOFT TISSUES: No suspicious bony or soft tissue abnormalities. CT/CT enterography IMPRESSION: 1. Postsurgical changes involving the stomach and proximal small bowel. Otherwise unremarkable CT enterography. 2. 5.2 cm probable right ovarian cyst. Correlation with ultrasound is suggested. Electronically signed by: Freeman Scanlon MD 04/05/2024 11:34 AM DOMENICO
[2024-04-05] MEDS: Sorbitol/Mannit/Xanth Imaging 500 ML LIQUID 1500 ML PO (11:11)
[2024-04-05] MEDS: iohexoL 350 MG/ML 100 ML INFUS..BTL IV (11:11)
== END 2024-04-05 09:35 | disposition home or self-care (01) ==
LOC: HO.CT 09:34
PROVIDERS: PCP Internal Medicine; Visit Provider Nurse Practitioner Family
DX: R19.5 Other fecal abnormalities (principal)
CPT/HCPCS: 74177; Q9967

== ENCOUNTER → 2024-04-05 09:41 | Outpatient (BNV) | payer MEDICAID, SELFPAY | PROVIDERS: PCP Internal Medicine; Visit Provider Radiology Diagnostic Radiology | DX: N83.201 Unspecified ovarian cyst, right side (principal) | CPT/HCPCS: 74177 ==

== ENCOUNTER 2024-04-09 08:48 | Outpatient (AMB) | payer MEDICAID, SELFPAY ==
--- NOTE | 2024-04-09 08:53 | MHC.OFFVIS ---
Intake Visit Reasons: follow up leakage Intake Note: Patient is present for Urinary Leakage Concerns Urology Med: Oxybutynin, Incontinence Pad Antibiotic Allergies: None Blood Thinners: None Last PVR:17ml PVR: 19ml Signal Worker Required: No Accompanied by: Self / Same As Patient Allergies No Known Allergies Allergy (Verified 04/09/24 09:01) Medication List - Last Reconciled 04/09/24 by Luis Manuel Singh MD acetaminophen (Tylenol) 325 mg PO TID PRN 30 days amlodipine 5 mg PO QAM clonazepam 1 mg PO BEDTIME PRN dulaglutide (Trulicity) mg subcut QWEEK duloxetine 30 mg PO BID food supplemt, lactose-reduced (Boost High Protein) ea PO BID hydroxyzine pamoate 50 mg PO Q8H PRN incontinence pad, liner, disp (Dry Comfort pads) As directed lidocaine 5% 1 appl topical DAILY PRN methocarbamol 750 mg PO Q8H PRN ondansetron HCl 8 mg PO Q8H PRN oxybutynin chloride ER 10 mg PO DAILY pantoprazole 20 mg PO BID PRN spironolactone 200 mg PO QAM topiramate 50 mg PO BID PRN ziprasidone HCl 2 caps PO BEDTIME HPI Comments Details: 04/09/24--Peri is a 43-year-old female who presents today to the office for follow up mixed urinary incontinence. Peri is currently on oxybutynin 5 mg daily. She states that the VESIcare was not covered. She is wearing pads for intermittent urine leakage and also fecal incontinence. She states she is being followed by GI for her bowel symptoms. She had a recent CT scan 04/05/2024 ordered by GI. I have reviewed results small left renal cyst no hydronephrosis or suspicious parenchymal lesions. Again noted right ovarian cyst. The patient states that she we will be following up with teletypesetter operator regarding the ovarian cyst. She states she is following up with [facility] for possible back surgery due to degenerative disc disease in her lumbar and cervical vertebrae. I will increase oxybutynin from 5 mg to 10 mg. I have discussed other therapies to consider include neuromodulation, InterStim therapy. 04/11/23--Peri is a 42-year-old female who was initially evaluated 01/07/2023 for mixed urinary incontinence. She was started on VESIcare 10 mg daily. She states the medication has been helping. She did not show up for her renal ultrasound that was ordered. Urinalysis-microscopic hematuria. Plan discussed-will reschedule renal ultrasound, continue VESIcare. Consider office cystoscopy on follow-up. 01/07/2023?She presents today for an evaluation of urge urinary incontinence. She has a past medical history of status post gastric bypass in 2011 at [facility], status post gastric sleeve in 05/13/2021, and history of chronic PTSD, bipolar 1, and depression. She also has a history of chronic lower back pain, fibromyalgia, and arthritis. She states that she has had frequency of urination specifically at night time. She is up 4-6 times to urinate and sometimes she leaks before getting into the bathroom. Patient is taking medication to help her sleep at 8 PM. She also takes Spironolactone 200 mg each morning. FH-her son was diagnosed with leukemia at the age 3 and currently, he is doing well. She states that she has occasional burning with urination that may last about a week and goes away on its own. She drinks only water approximately 60 ounces. She adds lemon juice to the water. Patient states that she does drink soda or coffee. She has been taking Trulicity for weight loss. She was prescribed oxybutynin daily by her PCP which she states did not help her urinary symptoms. She denies any history of cigarette smoking. I reviewed the urine culture results from 11/02/2022 which came back 10,000 to 50,000 cfu/ml mixed bacterial aren characteristic of urogenital contamination. Evaluation today?UA?leukocytes: negative; blood: negative. Plan Trial anticholinergic -Vesicare 10 mg daily, renal US ordered. REPLACED BY [facility] Medical History Elevated fecal calprotectin Overweight Morbid obesity Obesity BMI 38.0-38.9,adult Back pain Diarrhea Numbness Insomnia Postgastrectomy malabsorption History of headache Arthritis Fibromyalgia HTN (hypertension) Intra-abdominal adhesions Depression Hidradenitis Abnormal EKG Bipolar 1 disorder Hx of borderline personality disorder ADHD Chronic post-traumatic stress disorder (PTSD) Pre-op evaluation Surgical History S/P panniculectomy S/P laparoscopic sleeve gastrectomy Hx of esophagogastroduodenoscopy Gastric bypass status for obesity Family History Mother Obesity Diabetes mellitus Sister No problems noted. Son Leukemia Obesity Social History Are you a primary director of primary care to a significant other at home: No Do you presently have visiting nurse or other home services: No Alcohol intake: never Patient Tobacco Use Status: Never used Tobacco Advance Directives Date on File: 05/15/21 service: No Current occupational status: unemployed Review of Systems Const All systems reviewed & are unremarkable except as noted in HPI and below Reports no additional complaints Eyes Reports no additional complaints ENT Reports no additional complaints Card Reports no additional complaints Resp Reports no additional complaints GI Reports no additional complaints Reports as per HPI Musc Reports no additional complaints Skin/Breast Reports system reviewed and no additional complaints, except as documented Neuro Reports no additional complaints Psych Reports no additional complaints Endo Reports no additional complaints Rashard/Lymph Reports no additional complaints Aller/Immun Reports no additional complaints Office Procedures Post Void Residual Post Residual Void Post Void Residual (PVR): 19 [id number]-[id number] Void Residual by ultrasound Results AMB Urinalysis, Automated UA Leukoctes 0 Sera/uL Last Edit by JAMAL Rey on 04/09/24 09:12 UA Nitrite Negative Last Edit by April Espinal [facility] on 04/09/24 09:12 UA Urobilinogen 0.2 mg/dL Last Edit by JAMAL Rey on 04/09/24 09:12 UA Protein 15 mg/dL Last Edit by April Espinal [facility] on 04/09/24 09:12 UA pH 5.5 Last Edit by JAMAL Rey on 04/09/24 09:12 UA Blood 0 Shukri/uL Last Edit by April Espinal [facility] on 04/09/24 09:12 UA Specific Aurora 1.025 Last Edit by KELSIE Rey on 04/09/24 09:12 UA Ketone Negative Last Edit by JAMAL Rey on 04/09/24 09:12 UA Bilirubin 0 mg/dL Last Edit by JAMAL Rey on 04/09/24 09:12 UA Glucose 0 mg/dL Last Edit by JAMAL Rey on 04/09/24 09:12 Results Reviewed Results Reviewed: Date of Service: 04/05/24 EXAMINATION: CT ABDOMEN PELVIS ENTEROGRAPHY WITHOUT IV CONTRAST HISTORY: R19.5 - Other fecal abnormalities COMPARISON: There are no prior studies for comparison. TECHNIQUE: CT scan of the abdomen and pelvis was performed following administration of 85 mL Omnipaque 350 using standard departmental protocol. Coronal and sagittal reformatted images were generated and reviewed. The patient received low density Volumen oral contrast material for CT enterography. This CT exam was performed with one or more of the following dose reduction techniques: automated exposure control, adjustment of the mA and/or kV according to patient size, use of iterative reconstruction technique. DLP: 295 mGy-cm FINDINGS: LOWER CHEST: The visualized lung bases are clear. There is no pleural effusion. CARDIOVASCULATURE: The heart is normal in size. There is no pericardial effusion. LIVER: The liver is normal in size and contour. No liver mass is identified. The hepatic and portal veins are patent. GALLBLADDER / BILE DUCTS: The gallbladder is unremarkable. There is no intra or extrahepatic biliary ductal dilatation. SPLEEN: The spleen is normal in size. No focal splenic lesion is identified. PANCREAS: The pancreas is unremarkable in appearance. ADRENAL GLANDS: Within normal limits. KIDNEYS/RETROPERITONEUM: No renal calculi are identified. There is no hydronephrosis. There is a 1.5 cm cyst at the upper pole of the left kidney. LYMPH NODES: No abdominal or pelvic lymphadenopathy. VASCULATURE: The abdominal aorta is normal in caliber. MESENTERY/PERITONEUM: No free fluid. No masses. There is no free intraperitoneal gas. STOMACH: Postsurgical changes are noted involving the stomach. SMALL BOWEL: Small bowel is normal in caliber and is distended with oral contrast. There is a small bowel anastomosis in the left upper quadrant. There is no abnormal small bowel mucosal hyperenhancement. No stricture is seen. COLON: The colon is unremarkable. APPENDIX: Normal. URINARY BLADDER/PELVIC ORGANS: The urinary bladder is unremarkable. The uterus is unremarkable. There is a 5.2 cm cystic structure in the right posterior pelvis, likely related to the right ovary. The left ovary is unremarkable. BONES / SOFT TISSUES: No suspicious bony or soft tissue abnormalities. IMPRESSION: 1. Postsurgical changes involving the stomach and proximal small bowel. Otherwise unremarkable CT enterography. 2. 5.2 cm probable right ovarian cyst. Correlation with ultrasound is suggested. Date of Service: 06/21/23 US PELVIS LIMITED (BLADDER) CLINICAL INFORMATION: Urge incontinence. COMPARISON: Renal ultrasound 05/17/2023. TECHNIQUE: Real-time imaging of the bladder. FINDINGS: BLADDER: Urinary bladder is partially distended and may be equivocally thick-walled given degree of underdistention. Bilateral ureteral jets are demonstrated. Prevoid bladder volume is 183 mL. Postvoid bladder volume is 5.8 mL. ADDITIONAL FINDINGS: A 7.6 cm right ovarian cyst, incompletely assessed increased in size from prior previously 4.9 cm recommend correlation with dedicated transvaginal/transabdominal ultrasound pelvis. IMPRESSION: * Urinary bladder is partially distended and may be equivocally thick-walled given degree of underdistention, recommend correlation with symptoms of cystitis. * A 7.6 cm right ovarian cyst, incompletely assessed, increased in size from prior recommend correlation with dedicated transvaginal/transabdominal ultrasound pelvis, and gynecologic evaluation and management as findings may reflect a low-grade enlarging cystic neoplasm. Assessment & Plan Assessment & Plan (1) Urge incontinence of urine: Code(s): N39.41 - Urge incontinence Category: Medical (2) Fecal incontinence: Code(s): R15.9 - Full incontinence of feces Category: Medical (3) Voiding dysfunction: Code(s): N39.8 - Other specified disorders of urinary system Category: Medical Plan Increase oxybutynin to 10 mg daily. Protective pads refilled. Follow-up in 6 months Orders: Orders AMB Urinalysis Automated Today Z13.9 - Encounter for screening, unspecified AMB Post Void Residual by ultrasound Today N39.41 - Urge incontinence Medications: New oxybutynin chloride ER 10 mg PO DAILY 90 tabs 4RF Refilled incontinence pad, liner, disp (Dry Comfort pads) As directed 144 ea 3RF Patient Instructions: The patient had an opportunity to ask questions regarding treatment plan. The patient expressed understanding and agreement with the above treatment plan. The patient is aware they should contact our office by phone for worsening of their current condition or the appearance of new symptoms. Compliance is encouraged with any medications and followup testing that is ordered. It is a privilege to be allowed the opportunity to participate in the urologic care of your patient. If you have any questions or concerns regarding treatment for the above conditions please do not hesitate to contact me. The office telephone contact is [phone]. This note is constructed in part using voice recognition software. While every effort has been made to ensure accuracy outside plant engineer errors may have been included. Yours sincerely, Luis Manuel Singh MD Coding Level of Care Code Est Pt Level 4 (18838) Diagnoses Urge incontinence of urine N39.41 Fecal incontinence R15.9 Voiding dysfunction N39.8 CPT Codes Post Residual Void - PVR CPT Code: 96716-Wmrw Void Residual by ultrasound ([id number])
--- OUTSIDE RECORDS SUMMARY | 2024-04-09 12:57 | XMS_ITS | Encounter Summary ---
Author Organization [employer] Address [address] [place] [address] Care Team Providers Care Spud Grader Name Role Phone Carlo Santana MD Primary Care Provider [phone] Reason for Visit * Reason Onset Date Comments Med Refill 01/25/2024 Encounter Details Date Type Department Care Team ([facility] st Contact Info) Description 01/25/2024 Telephone [facility] [address] [place] [address] Carlo Santana MD [address] [place], [place] [id number] Med Refill Social History Tobacco Use Types Packs/Day Years Used Date Smoking Tobacco: Never Passive Smoke Exposure: Never Smokeless Tobacco: Never Alcohol Use Standard Drinks/Week Comments Never 0 (1 standard drink = 0.6 oz pur e alcohol) Depression Answer Date Recorded Patient Health Questionnaire-9 Score 15 01/26/2024 Patient Health Questionnaire-9 Score 15 01/26/2024 Last PHQ-9: Questionnaire Data Not on file 1 03/27/2023 Housing Stability Answer Date Recorded What is your housing situation today? I have dionne william 01/19/[address] you li ve. Do you have problems with any of the following? None of the above 01/19/2024 Food Insecurity Answer Date Recorded Within the past 12 months, y ou worried that your food would run out before you got money to buy more: Never True 01/19/2024 Within the past 12 months,th e food you bought just didn't last and you didn't have enough money to get more: Never True 09/2023 Transportation Answer Date Recorded In the past 12 months, has l ack of transportation kept you from medical appts, meetings, work or from getting things needed for daily living? No 01/19/2024 Utilities Answer Date Recorded In the past 12 months, has t he electric, gas, oil or water company threatened to shut off services in your home? No 01/19/2024 Depression Answer Date Recorded Patient Health Questionnaire-2 Score 3 01/26/2024 Internet Access Answer Date Recorded Internet Access Q1 Yes 01/19/2024 Internet Access Q2 Not on file 01/19/2024 Comments No Sex and Gender Information Value Date Recorded Sex Assigned at Female 01/11/2022 10:34 AM EDT Legal Sex Female 10:34 AM EDT Gender Identity Female 01/11/2022 10:34 AM EDT Sexual Orientation Straight 01/11/2022 10 :34 AM EDT documented as of this encounter Miscellaneous Notes * Telephone Encounter - Braden Cool - 01/25/2024 8:33 AM EST Tc from pt requesting a refill for oxyCODONE-acetaminophen (Percocet) 7.5-325 MG tablet documented in this encounter Plan of Treatment Upcoming Encounters Date Type Department Care Team ([facility] st Contact Info) Description 05/31/2024 11:00 AM EDT Clinical Support [facility] [address] [place] [address] 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 RN [address] [place] [address] documented as of this encounter Visit Diagnoses Not on filedocumented in this encounter Additional Health Concerns Assessment Noted Time PHQ-9 Depression Total Score: 3 06/04/19 23 3:42 PM EDT documented as of this encounter Care Teams Spud Grader Relationship Specialty Start Date End Date Carlo Santana MD [address] [place] [address] PCP - General Internal Medicine 12/28/17 documented as of this encounter
--- OUTSIDE RECORDS SUMMARY | 2024-04-09 12:57 | XMS_ITS | Encounter Summary ---
Author Organization [employer] Address [address] [place] [address] Care Team Providers Care Head Of Visual Merchandising Name Role Phone Carlo Santana MD Primary Care Provider [phone]- [phone] Reason for Visit * Reason Onset Date Comments Results 01/03/2024 Encounter Details Date Type Department Care Team ([facility] st Contact Info) Description 01/03/2024 Telephone [facility] [address] [place] [address] Carlo Santana MD [address] [place], [place] [phone] Results Social History Tobacco Use Types Packs/Day Years Used Date Smoking Tobacco: Never Passive Smoke Exposure: Never Smokeless Tobacco: Never Alcohol Use Standard Drinks/Week Comments Never 0 (1 standard drink = 0.6 oz pur e alcohol) Depression Answer Date Recorded Patient Health Questionnaire-9 Score 3 06/03/2022 Housing Stability Answer Date Recorded What is your housing situation today? I have dionne william 12/27/[address] you li ve. Do you have problems with any of the following? None of the above 12/27/2022 Food Insecurity Answer Date Recorded Within the past 12 months, y ou worried that your food would run out before you got money to buy more: Never True 12/27/2022 Within the past 12 months,th e food you bought just didn't last and you didn't have enough money to get more: Never True Transportation Answer Date Recorded In the past 12 months, has l ack of transportation kept you from medical appts, meetings, work or from getting things needed for daily living? No 12/27/2022 Utilities Answer Date Recorded In the past 12 months, has t he electric, gas, oil or water company threatened to shut off services in your home? No 12/27/2022 Depression Answer Date Recorded Patient Health Questionnaire-2 Score 0 06/03/2022 Comments No Sex and Gender Information Value Date Recorded Sex Assigned at Female 01/11/2022 10:34 AM EDT Legal Sex Female 10:34 AM EDT Gender Identity Female 01/11/2022 10:34 AM EDT Sexual Orientation Straight 01/11/2022 10 :34 AM EDT documented as of this encounter Miscellaneous Notes * Telephone Encounter - Wing Romeo RN - 01/06/2024 12:45 PM EDT Please advise, [facility] stated insurance has a DUR on the oxycodone. Spoke to Gala who recommended PCP to call pt's insurance and have a peer to peer to clear up what the issue is. Relayed this to pt and she is waiting to get active labs done at the moment. * Telephone Encounter - Carlo Santana MD - 01/06/2024 8:52 AM EDT I met Ms Peri Sandy this morning in the lobby who reports missing her oxycodone. A new script will be generated. I communicated the results of the colby protectin to her which is c/w IBD. Pt has an appointment w/ GI in January. Still has watery diarrhea and is losing weight. Treatment could be started but C diff is missing. I will also order fecal lactoferrin, a CRP to confirm the diagnosis prior to starting treatment. * Telephone Encounter - Fallon Lindsey RN - 01/05/2024 11:27 AM EDT Calprotectin 3410 H mcg/g Reference Range: <50 Normal 50-120 Borderline >120 Elevated Calprotectin in Crohn's disease and ulcerative colitis can be five to several thousand times above the reference population (50 mcg/g or less). Levels are usually 50 mcg/g or less in healthy patients and with irritable bowel syndrome. Repeat testing in 4-6 weeks is suggested for borderline values. THIS TEST WAS PERFORMED AT: [email or web address] [address] [place] [address] CHERYL MOLINA MD,PHD,BATSHEVA Dr. Santana, This is the results found on [employer] for pt recent Calprotectin stool testing. Pt would like a call back with the interpretation of the results. * Telephone Encounter - Quan Mena - 01/03/2024 11:01 AM EDT TC from pt requesting call back regarding Results. Type of results: Labs Date when done: 12/24/23 Facility: [facility] labs documented in this encounter Plan of Treatment Upcoming Encounters Date Type Department Care Team (Late st Contact Info) Description 05/31/2024 11:00 AM EDT Clinical Support [facility] [address] [place] [address] 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, HUGO [address] [place] [address] documented as of this encounter Visit Diagnoses Not on filedocumented in this encounter Additional Health Concerns Assessment Noted Time PHQ-9 Depression Total Score: 3 06/04/19 23 3:42 PM EDT documented as of this encounter Care Teams Head Of Visual Merchandising Relationship Specialty Start Date End Date Carlo Santana MD [address] [place] [address] PCP - General Internal Medicine 12/28/17 documented as of this encounter
--- OUTSIDE RECORDS SUMMARY | 2024-04-09 12:57 | XMS_ITS | Encounter Summary ---
Author Organization [employer] Address [address] [place] [address] 7 [place] [address] Care Team Providers Care Dial Brusher Name Role Phone Carlo Santana MD Primary Care Provider +1- [phone] Reason for Visit * Reason Onset Date Comments Medication Question 01/31/2024 Encounter Details Date Type Department Care Team ([facility] Contact Info) Description 01/31/2024 Telephone [facility] MED & PEDS [address] [place] [address] Carlo Santana MD 505 [place] [address] Medication Question Social History Tobacco Use Types Packs/Day Years [...] encounter Miscellaneous Notes * Telephone Encounter - Kallie Mayorga LPN - 01/31/2024 10:10 AM EST Game Warden communicated with the patient's insurance provider, who indicated that prior authorization is not required. Oxycodone was discontinued because the patient received a prescription for acetaminophen 600 mg from another physician's office on January 25, 2024. I requested that the [place] CST nurse join this discussion to ensure she is informed about the patient's situation. The insurance expressed concerns regarding the patient's liver health due to the use of these medications. An override for Oxycodone was granted; however, it was noted that it will be revoked if the patient continuesto use this medication (acetaminophen 600 mg). This information is being shared with both the RIB BUILDER nurse and the primary care physician to facilitate discussion at the next appointment. * Telephone Encounter - 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 RN - 01/31/2024 9:33 AM EST TC to pt's pharm, [facility] regarding message below. Per pharmacist PA is required and can't do short supply. Pt will be out of medication today. Please f/u. Ty! * Telephone Encounter - Maddie Emely - 01/31/2024 8:12 AM EST Tc from pt requesting a call back regarding medication oxyCODONE-acetaminophen (Percocet) 7.5-325 MG tablet . States PA is needed but wanted to know if some medication can be given until PA is approved. ( PA request has been sent to specialist) documented in this encounter Plan of Treatment Upcoming Encounters Date Type Department Care Team (Late st Contact Info) Description 05/31/2024 11:00 AM EDT Clinical Support [facility] MED & PEDS [address] [place] [address] 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, HUGO 505 [place] [address] documented as of this encounter Visit Diagnoses Not on filedocumented in this encounter Additional Health Concerns Assessment Noted Time PHQ-9 Depression Total Score: 15 024 11:50 AM EST documented as of this encounter Care Teams Dial Brusher Relationship Specialty Start Date End Date Carlo Santana MD 505 [place] [address] PCP - General Internal Medicine 12/28/17 documented as of this encounter
--- OUTSIDE RECORDS SUMMARY | 2024-04-09 12:57 | XMS_ITS | Encounter Summary ---
Author Organization [employer] Address [address] [facility] 7 [place] [address] Care Team Providers Care Service Desk Associate Name Role Phone Carlo Santana MD Primary Care Provider +1- [phone] Reason for Visit * Reason Comments Med Refill Encounter Details Date Type Department Care Team ([facility] st Contact Info) Description 04/09/2024 Refill [facility] MEDICINE [address] [place] [address] Carlo Santana MD 505 [place], [place] [phone] Diarrhea, unspecified type; Bipolar affective disorder, remission status unspecified (CMS/HCC); Diarrhea, unspecified type; [place] (generalized anxiety disorder) Social History Tobacco Use Types Packs/Day Years [...] AM EDT documented as of this encounter Plan of Treatment Upcoming Encounters Date Type Department Care Team (Late st Contact Info) Description 05/31/2024 11:00 AM EDT Clinical Support [facility] CHC MED & PEDS 505 [place] [address] 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, HUGO 505 [place] [address] documented as of this encounter Visit Diagnoses Diagnosis Diarrhea, unspecified type Bipolar affective disorder, remission status unspecified ([facility]) [place] (generalized anxiety disorder) Generalized anxiety disorder documented in this encounter Additional Health Concerns Assessment Noted Time PHQ-9 Depression Total Score: 15 024 11:50 AM EST documented as of this encounter Care Teams Service Desk Associate Relationship Specialty Start Date End Date Carlo Santana MD 505 [place] [address] PCP - General Internal Medicine 12/28/17 documented as of this encounter
--- OUTSIDE RECORDS SUMMARY | 2024-04-09 12:57 | XMS_ITS | Encounter Summary ---
Author Organization [employer] Address [address] [place] [address] 7 [place] [address] Care Team Providers Care Automatic Nailing Machine Feeder Name Role Phone Carlo Santana MD Primary Care Provider +1- [phone] Reason for Visit * Reason Onset Date Comments PA 01/31/2024 Encounter Details Date Type Department Care Team ([facility] st Contact Info) Description 01/31/2024 Telephone [facility] CHC MED & PEDS [address] [place] [address] Carlo Santana MD 505 [place] [address] PA Social History Tobacco Use Types Packs/Day Years [...] encounter Miscellaneous Notes * Telephone Encounter - Maddie Han - 01/31/2024 8:09 AM EST Tc from pt calling to inform needs a PA for medication oxyCODONE-acetaminophen (Percocet) 7.5-325 MG tablet . documented in this encounter Plan of Treatment Upcoming Encounters Date Type Department Care Team ([facility] st Contact Info) Description 05/31/2024 11:00 AM EDT Clinical Support [facility] CHC MED & PEDS [address] [place] [address] 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 RN 505 [place] [address] documented as of this encounter Visit Diagnoses Not on filedocumented in this encounter Additional Health Concerns Assessment Noted Time PHQ-9 Depression Total Score: 15 024 11:50 AM EST documented as of this encounter Care Teams Automatic Nailing Machine Feeder Relationship Specialty Start Date End Date Carlo Santana MD [address] [place] [address] PCP - General Internal Medicine 12/28/17 documented as of this encounter
--- OUTSIDE RECORDS SUMMARY | 2024-04-09 12:57 | XMS_ITS | Encounter Summary ---
Author Organization [employer] Address [address] [place] [address] 7 [place] [address] Care Team Providers Care Sociology Faculty Member Name Role Phone Carlo Santana MD Primary Care Provider +1- [phone] Reason for Visit * Reason Onset Date Comments Med Change Request 09/14/2023 Encounter Details Date Type Department Care Team ([facility] st Contact Info) Description 09/14/2023 Telephone [facility] MED & PEDS 505 [place] [address] Carlo Santana MD 505 [place] [address] Med Change Request Social History Tobacco Use Types Packs/Day Years [...] Patient Health Questionnaire-2 Score 0 06/03/2022 Comments Unknown Sex and Gender Information Value Date Recorded Sex Assigned at Female 01/11/2022 10:34 AM EDT Legal Sex Female 10:34 AM EDT Gender Identity Female 01/11/2022 10:34 AM EDT Sexual Orientation Straight 01/11/2022 10 :34 AM EDT documented as of this encounter Miscellaneous Notes * Telephone Encounter - Ashley Romaine - 09/14/2023 11:56 AM EDT Tc from pt states ziprasidone (Geodon) 80 MG capsule directions was made wrong. States is supposed to take 2 in the morning and prescription was written for 1 in the morning. Please contact pt at [phone] documented in this encounter Plan of Treatment Upcoming Encounters Date Type Department Care Team ([facility] st Contact Info) Description 05/31/2024 11:00 AM EDT Clinical Support [facility] CHC MED & PEDS 505 [place] [address] 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, HUGO 505 [place] [address] documented as of this encounter Visit Diagnoses Not on filedocumented in this encounter Additional Health Concerns Assessment Noted Time PHQ-9 Depression Total Score: 3 06/04/19 23 3:42 PM EDT documented as of this encounter Care Teams Sociology Faculty Member Relationship Specialty Start Date End Date Carlo Santana MD 505 [place] [address] PCP - General Internal Medicine 12/28/17 documented as of this encounter
--- OUTSIDE RECORDS SUMMARY | 2024-04-09 12:57 | XMS_ITS | Encounter Summary ---
Author Organization [employer] Address 75 [facility] 7 [place] [address] Care Team Providers Care Mold Press Operator Name Role Phone Carlo Santana MD Primary Care Provider +1- [phone] Reason for Visit * Reason Onset Date Comments Prior Authorization 02/07/2024 Encounter Details Date Type Department Care Team ([facility] st Contact Info) Description 02/07/2024 Telephone [facility] MEDICINE [address] [place] [address] Carlo Santana MD 505 [place] [address] Prior Authorization Social History Tobacco Use Types Packs/Day Years [...] Telephone Encounter - Kallie Mayorga LPN - 02/08/2024 10:28 AM EST No pa needed. Rx has no refills needs new Rx * Telephone Encounter - Quan Mena - 02/07/2024 9:45 AM EST Tc from pt bernard in regards to clonazePAM (KlonoPIN) 1 MG tablet stating medication needs a PA. documented in this encounter Plan of Treatment Upcoming Encounters Date Type Department Care Team (Late st Contact Info) Description 05/31/2024 11:00 AM EDT Clinical Support [facility] CHC MED & PEDS 505 [place] [address] 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, RN 505 [place] [address] documented as of this encounter Visit Diagnoses Not on filedocumented in this encounter Additional Health Concerns Assessment Noted Time PHQ-9 Depression Total Score: 15 024 11:50 AM EST documented as of this encounter Care Teams Mold Press Operator Relationship Specialty Start Date End Date Carlo Santana MD [address] [place] [address] PCP - General Internal Medicine 12/28/17 documented as of this encounter
--- OUTSIDE RECORDS SUMMARY | 2024-04-09 12:57 | XMS_ITS | Encounter Summary ---
Author Organization [employer] Address [address] [place] [address] 7 [place] [address] Care Team Providers Care Drug Room Clerk Name Role Phone Carlo Santana MD Primary Care Provider +1- [phone] Reason for Visit * Reason Onset Date Comments Med Refill 09/14/2023 Encounter Details Date Type Department Care Team ([facility] st Contact Info) Description 09/14/2023 Telephone [facility] MED & PEDS [address] [place] [address] Carlo Santana MD 505 [place] [address] Med Refill Social History Tobacco Use Types [...] encounter Miscellaneous Notes * Telephone Encounter - Hien Jarquin - 09/14/2023 3:55 PM EDT Pt is also requesting: lidocaine (Xylocaine) 5 % ointment * Telephone Encounter - Ashley Gavin - 09/14/2023 11:58 AM EDT TC from pt requesting medication refill. Medications needing refill : lidocaine (Lidoderm) 5 % patch To be sent to: [facility]/pharmacy #[id number] LEATHA PHILLIPS - [address] [facility] documented in this encounter Plan of Treatment Upcoming Encounters Date Type Department Care Team ([facility] st Contact Info) Description 05/31/2024 11:00 AM EDT Clinical Support [facility] MED & PEDS [address] [place] [address] 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, HUGO 505 [place] [address] documented as of this encounter Visit Diagnoses Not on filedocumented in this encounter Additional Health Concerns Assessment Noted Time PHQ-9 Depression Total Score: 3 06/04/19 23 3:42 PM EDT documented as of this encounter Care Teams Drug Room Clerk Relationship Specialty Start Date End Date Carlo Santana MD 505 [place] [address] PCP - General Internal Medicine 12/28/17 documented as of this encounter
--- OUTSIDE RECORDS SUMMARY | 2024-04-09 12:57 | XMS_ITS | Encounter Summary ---
Author Organization [employer] Address [address] [facility] 7 [place] [address] Care Team Providers Care Battery Builder Name Role Phone Carlo Santana MD Primary Care Provider +1- [phone] Reason for Visit * Reason Onset Date Comments Prior Authorization 12/29/2023 Encounter Details Date Type Department Care Team ([facility] st Contact Info) Description 12/29/2023 Telephone [facility] MEDICINE [address] [place] [address] Carlo Santana MD 505 [place], [place] [phone] Prior Authorization Social History Tobacco Use Types [...] encounter Miscellaneous Notes * Telephone Encounter - Rand Savage RN - 01/03/2024 1:56 PM EDT Noted. PA was generated and sent to , pending approval. * Telephone Encounter - Quan Mena - 12/29/2023 9:06 AM EDT Tc from pt stating she was informed by [facility] pharmacy that oxyCODONE-acetaminophen (Percocet) 7.5-325MG tablet needs a PA. If any questions for the pt you can contact them at [phone]. documented in this encounter Plan of Treatment Upcoming Encounters Date Type Department Care Team (Late st Contact Info) Description 05/31/2024 11:00 AM EDT Clinical Support [facility] MED & PEDS 505 [place] [address] 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, RN 505 [place] [address] documented as of this encounter Visit Diagnoses Not on filedocumented in this encounter Additional Health Concerns Assessment Noted Time PHQ-9 Depression Total Score: 3 06/04/19 23 3:42 PM EDT documented as of this encounter Care Teams Battery Builder Relationship Specialty Start Date End Date Carlo Santana MD [address] [place] [address] PCP - General Internal Medicine 12/28/17 documented as of this encounter
--- OUTSIDE RECORDS SUMMARY | 2024-04-09 12:57 | XMS_ITS | Encounter Summary ---
Author Organization [employer] Address [address] [place] [address] 7 [place] [address] Care Team Providers Care Dean Of Students Name Role Phone Carlo Santana MD Primary Care Provider +1- [phone] Reason for Visit * Reason Onset Date Comments Prior Authorization 09/02/2023 Encounter Details Date Type Department Care Team ([facility] Contact Info) Description 09/02/2023 Telephone [facility] MED & PEDS [address] [place] [address] Carlo Santana MD 505 [place] [address] Prior Authorization Social History Tobacco Use Types [...] Telephone Encounter - Kallie Mayorga LPN - 09/06/2023 10:30 AM EDT Tc from pt requesting states on PA for medication ziprasidone (Geodon) 80 MG capsule . If changed to One capsule pa not needed , per * Telephone Encounter - Maddie Han - 09/06/2023 9:17 AM EDT Tc from pt requesting states on PA for medication ziprasidone (Geodon) 80 MG capsule . * Telephone Encounter - Ashley Gavin - 09/02/2023 12:43 PM EDT Tc from pt states PA is needed for ziprasidone (Geodon) 80 MG capsule documented in this encounter Plan of Treatment Upcoming Encounters Date Type Department Care Team (Late st Contact Info) Description 05/31/2024 11:00 AM EDT Clinical Support [facility] MED & PEDS [address] [place] [address] 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, RN 505 [place] [address] documented as of this encounter Visit Diagnoses Diagnosis Bipolar affective disorder, remission status unspecified (CMS/[facility]) documented in this encounter Additional Health Concerns Assessment Noted Time PHQ-9 Depression Total Score: 3 06/04/19 23 3:42 PM EDT documented as of this encounter Care Teams Dean Of Students Relationship Specialty Start Date End Date Carlo Santana MD [address] [place] [address] PCP - General Internal Medicine 12/28/17 documented as of this encounter
--- OUTSIDE RECORDS SUMMARY | 2024-04-09 12:57 | XMS_ITS | Encounter Summary ---
Author Organization [employer] Address [address] [facility] 7 [place] [address] Care Team Providers Care Direct Sales Professional Name Role Phone Carlo Santana MD Primary Care Provider +1- [phone] Reason for Visit * Reason Onset Date Comments Med Refill 12/28/2023 Encounter Details Date Type Department Care Team ([facility] st Contact Info) Description 12/28/2023 Telephone [facility] MEDICINE [address] [place] [address] Carlo Santana MD [address] [facility] [address] [place], [place] [phone] Med Refill Social History Tobacco Use Types Packs/Day Years Used Date Smoking Tobacco: Never Passive Smoke Exposure: Never Smokeless Tobacco: Never Alcohol Use Standard Drinks/Week Comments Never 0 (1 standard drink = 0.6 oz pur e alcohol) Depression Answer Date Recorded Patient Health Questionnaire-9 Score 3 06/03/2022 Housing Stability Answer Date Recorded What is your housing situation today? I have dionnenicole william 12/27/[address] you [...] encounter Miscellaneous Notes * Telephone Encounter - Олег Neil - 12/28/2023 2:12 PM EDT TC from pt requesting medication refill. Medications needing refill : oxyCODONE-acetaminophen (Percocet) 7.5-325 MG tablet To be sent to: [facility]/pharmacy #[id number] Patient indicated lost medication further information not provided documented in this encounter Plan of Treatment Upcoming Encounters Date Type Department Care Team (Late st Contact Info) Description 05/31/2024 11:00 AM EDT Clinical Support [facility] MED & PEDS 505 [place] [address] 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 RN 505 [place] [address] documented as of this encounter Visit Diagnoses Not on filedocumented in this encounter Additional Health Concerns Assessment Noted Time PHQ-9 Depression Total Score: 3 06/04/19 23 3:42 PM EDT documented as of this encounter Care Teams Direct Sales Professional Relationship Specialty Start Date End Date Carlo Santana MD 505 [place] [address] PCP - General Internal Medicine 12/28/17 documented as of this encounter
--- OUTSIDE RECORDS SUMMARY | 2024-04-09 12:57 | XMS_ITS | Encounter Summary ---
Author Organization [employer] Address [address] [facility] 7 [place] [address] Care Team Providers Care Wood Type Cutter Name Role Phone Carlo Santana MD Primary Care Provider +1- [phone] Reason for Visit * Reason Onset Date Comments Medication Question 12/28/2023 Encounter Details Date Type Department Care Team ([facility] st Contact Info) Description 12/28/2023 Telephone [facility] MEDICINE [address] [place] [address] Carlo Santana MD [address] [facility] [address] [place], [place] [phone] Medication Question Social History Tobacco Use Types [...] encounter Miscellaneous Notes * Telephone Encounter - Quan Mena - 12/29/2023 9:04 AM EDT Tc from pt called in regards to message prior stated she did officially receive medication. * Telephone Encounter - Quan Mena - 12/28/2023 2:46 PM EDT Tc from pt calling In regards to sulfamethoxazole-trimethoprim (Bactrim DS) 800- 160 MG tablet stating she lost medication and is requesting for pcp to send a new script. If any questions you can contact pt at [phone]. documented in this encounter Plan of Treatment Upcoming Encounters Date Type Department Care Team ([facility] st Contact Info) Description 05/31/2024 11:00 AM EDT Clinical Support [facility] MED & PEDS 505 [place] [address] 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, HGUO 505 [place] [address] documented as of this encounter Visit Diagnoses Not on filedocumented in this encounter Additional Health Concerns Assessment Noted Time PHQ-9 Depression Total Score: 3 06/04/19 23 3:42 PM EDT documented as of this encounter Care Teams Wood Type Cutter Relationship Specialty Start Date End Date Carlo Santana MD [address] [place] [address] PCP - General Internal Medicine 12/28/17 documented as of this encounter
--- OUTSIDE RECORDS SUMMARY | 2024-04-09 12:58 | XMS_ITS | Encounter Summary ---
Author Organization [employer] Address [address] [place] [address] 7 [place] [address] Care Team Providers Care Washer Operator Name Role Phone Carlo Santana MD Primary Care Provider +1- [phone] Encounter Details Date Type Department Care Team ([facility] st Contact Info) Description 01/06/2024 Orders Only [facility] CHC MED & PEDS [address] [place], [place] [phone] Carlo Santana MD 505 [place] [address] Diarrhea, unspecified type (Primary Dx); Chronic left-sided low back pain with left-sided sciatica Social History Tobacco Use Types Packs/Day Years [...] Description 05/31/2024 11:00 AM EDT Clinical Support [facility] MED & PEDS 505 [place] [address] 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 RN 505 [place] [address] Scheduled Orders Name Type Priority Associated Diagnoses Orde r Schedule Lactoferrin, Qualitative, Stool Lab Routine Diarrhea, unspecified type Expected: 01/06/2024 (Approximate), Expires: 01/05/2025 Clostridioides difficile Toxins A and B, EIA Microbiology Routine Diarrhea, unspecified type Expected: 01/06/2024 (Approximate), Expires: 01/05/2025 documented as of this encounter Procedures Procedure Name Priority Date/Time Associated Diagnosis Comments C-REACTIVE PROTEIN Routine 01/06/2024 1: 18 PM EDT Diarrhea, unspecified type documented in this encounter Results * C-reactive Protein (01/06/2024 1:18 PM EDT) C Reactive Protein <0.10 < or = 0.50 mg/dL [facility] Blood Venous blood specimen / Unknown 01/06/2024 1:18 PM EDT 01/06/2024 2:16 PM EDT Carlo Santana MD LAB BLOOD ORDERABLES Final Result [facility] [address] [place] [address] [phone] documented in this encounter Visit Diagnoses Diagnosis Diarrhea, unspecified type- Primary Chronic left-sided low back pain with left-sided sciatica documented in this encounter Additional Health Concerns Assessment Noted Time PHQ-9 Depression Total Score: 3 06/04/19 23 3:42 PM EDT documented as of this encounter Care Teams Washer Operator Relationship Specialty Start Date End Date Carlo Satnana MD [address] [place] [address] PCP - General Internal Medicine 12/28/17 documented as of this encounter
--- OUTSIDE RECORDS SUMMARY | 2024-04-09 12:58 | XMS_ITS | Encounter Summary ---
Author Organization [employer] Address [address] [facility] 7 [place] [address] Care Team Providers Care Kelp Or Seagrass Gatherer Name Role Phone Carlo Santana MD Primary Care Provider +1- [phone] Encounter Details Date Type Department Care Team (Late st Contact Info) Description 04/03/2024 Telephone [facility] MEDICINE [address] [place] [address] Carlo Santana MD [address] [facility] [address] [place], [place] [phone] Social History Tobacco Use Types Packs/Day Years [...] housing situation today? I have dionnenicole william 01/19/[address] you [...] Description 05/31/2024 11:00 AM EDT Clinical Support [facility] CHC MED & PEDS [address] [place] [address] 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, RN [address] [place] [address] documented as of this encounter Visit Diagnoses Not on filedocumented in this encounter Additional Health Concerns Assessment Noted Time PHQ-9 Depression Total Score: 15 024 11:50 AM EST documented as of this encounter Care Teams Kelp Or Seagrass Gatherer Relationship Specialty Start Date End Date Carlo Santana MD 505 [place] [address] PCP - General Internal Medicine 12/28/17 documented as of this encounter
--- OUTSIDE RECORDS SUMMARY | 2024-04-09 12:58 | XMS_ITS | Encounter Summary ---
Author Organization [employer] Address 75 [facility] 7 [place] [address] Care Team Providers Care Salon Leader Name Role Phone Carlo Santana MD Primary Care Provider +1- [phone] Reason for Visit * Reason Onset Date Comments Nurse Triage 04/03/2024 Encounter Details Date Type Department Care Team (Late st Contact Info) Description 04/03/2024 Telephone [facility] MEDICINE [address] [place] [address] Carlo Santana MD [address] [facility] [address] [place], [place] [phone] Nurse Triage Social History Tobacco Use Types Packs/Day Years [...] encounter Miscellaneous Notes * Telephone Encounter - Louise Rosenberg RN - 04/03/2024 4:20 PM EST called pt to triage, spoke to pt. pt states several months duration of strange episodes of chills, sweats, intermittent dizziness, night sweats, intermittent weakness, feeling faint intermittently, and headaches. pt denies actual fainting, illness symptoms, fevers, or other associated symptoms. pt has already scheduled appt with PCP on 04/09 and she is ok with waiting for that appt. advised to call back if worsening or new concerns. pt understands and agrees with plan. insurance verified. Protocol Used: No Protocol Available (Adult) Protocol-Based Disposition: See in Office or Video Visit within 2 Weeks Video visit offer not recorded Positive Triage Question: * Nursing judgment * All higher-acuity triage questions were negative Care Advice Discussed: * Reasons To Call Back - New symptoms develop - You become worse * Telephone Encounter - Urvashi Martinez - 04/03/2024 1:27 PM EST Symptoms: Headache, Flashes Outcome: Schedule a same-day appointment or talk to a nurse or provider today Reason: Caller denied all higher acuity questions The caller accepted this outcome. [phone] documented in this encounter Plan of Treatment Upcoming Encounters Date Type Department Care Team ([facility] st Contact Info) Description 05/31/2024 11:00 AM EDT Clinical Support [facility] MED & PEDS [address] [place] [address] 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, HUGO [address] [place] [address] documented as of this encounter Visit Diagnoses Not on filedocumented in this encounter Additional Health Concerns Assessment Noted Time PHQ-9 Depression Total Score: 15 024 11:50 AM EST documented as of this encounter Care Teams Salon Leader Relationship Specialty Start Date End Date Carlo Santana MD [address] [place] [address] PCP - General Internal Medicine 12/28/17 documented as of this encounter
--- OUTSIDE RECORDS SUMMARY | 2024-04-09 12:58 | XMS_ITS | Encounter Summary ---
Author Organization [employer] Address [address] [place] [address] 7 [place] [address] Care Team Providers Care Property Claims Manager Name Role Phone Carlo Santana MD Primary Care Provider +1- [phone] Reason for Visit * Reason Onset Date Comments Prior Authorization 03/23/2024 Encounter Details Date Type Department Care Team ([facility] Contact Info) Description 03/23/2024 Telephone [facility] MED & PEDS [address] [place] [address] Carlo Santana MD [address] [place] [address] Prior Authorization Social History Tobacco Use Types [...] Telephone Encounter - Kallie Mayorga LPN - 03/23/2024 9:55 AM EST Pa submitted for OXY to documented in this encounter Plan of Treatment Upcoming Encounters Date Type Department Care Team ([facility] st Contact Info) Description 05/31/2024 11:00 AM EDT Clinical Support [facility] MED & PEDS [address] [place] [address] 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 RN [address] [place] [address] documented as of this encounter Visit Diagnoses Not on filedocumented in this encounter Additional Health Concerns Assessment Noted Time PHQ-9 Depression Total Score: 15 024 11:50 AM EST documented as of this encounter Care Teams Property Claims Manager Relationship Specialty Start Date End Date Carlo Santana MD [address] [place] [address] PCP - General Internal Medicine 12/28/17 documented as of this encounter
--- OUTSIDE RECORDS SUMMARY | 2024-04-09 12:58 | XMS_ITS | Encounter Summary ---
Author Organization [employer] Address 75 [facility] 7 [place] [address] Care Team Providers Care Cloth Bin Packer Name Role Phone Carlo Santana MD Primary Care Provider +1- [phone] Reason for Visit * Reason Onset Date Comments Nurse Triage 03/21/2024 Encounter Details Date Type Department Care Team (Late st Contact Info) Description 03/21/2024 Telephone [facility] MEDICINE [address] [place] [address] Carlo Santana MD [address] [facility] [address] [place], [place] [phone] Nurse Triage Social History Tobacco Use Types [...] encounter Miscellaneous Notes * Telephone Encounter - Rosalina Armenta RN - 03/21/2024 3:54 PM EST Triage call Pt reports seen by chief safety officer and Pt believes they may have Crohns disease. Pt report cold sores on inside of mouth for several days. Pt reports chronic right sided pain , right shoulder to shoulder blade and elbow to shoulder. Pt reports , I have fibromyalgia . Pt reports painis so much worse, severe and requests to see only Dr. Santana. ASK apt 03/22/24 @ 230pm. Pt agreeswith disposition and insurance is verified as active prior to booking. Protocol Used: Muscle Aches and Body Pain (Adult) Protocol-Based Disposition: Go to Office or Video Visit Now Override (Final) Disposition: See in Office or Video Visit Today or Tomorrow Override Reason: Desired specific provider Positive Triage Question: * Severe pain (e.g., excruciating, unable to do any normal activities) and not improved 2 hours after pain medicine * All higher-acuity triage questions were negative Care Advice Discussed: * Reassurance and Education - Mild Muscle Pain * Pain Medicines * Pain Medicines - Extra Notes and Warnings * Reasons To Call Back - Fever occurs - Pain lasts longer than 7 days - You become worse * Telephone Encounter - Quan Mena - 03/21/2024 3:31 PM EST Symptoms: Pain - Severe Outcome: Schedule an urgent appointment (within 1 hour) or talk to a nurse or provider soon Reason: Joint pain Please contact pt at [phone]. documented in this encounter Plan of Treatment Upcoming Encounters Date Type Department Care Team (Late st Contact Info) Description 05/31/2024 11:00 AM EDT Clinical Support [facility] MED & PEDS [address] [place] [address] 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 RN 505 [place] [address] documented as of this encounter Visit Diagnoses Diagnosis Acute pain of both shoulders documented in this encounter Additional Health Concerns Assessment Noted Time PHQ-9 Depression Total Score: 15 024 11:50 AM EST documented as of this encounter Care Teams Cloth Bin Packer Relationship Specialty Start Date End Date Carlo Santana MD [address] [place] [address] PCP - General Internal Medicine 12/28/17 documented as of this encounter
--- OUTSIDE RECORDS SUMMARY | 2024-04-09 12:58 | XMS_ITS | Encounter Summary ---
Author Organization [employer] Address 75 [facility] 7 [place] [address] Care Team Providers Care Webmethods Consultant Name Role Phone Carlo Santana MD Primary Care Provider +1- [phone] Reason for Visit * Reason Onset Date Comments Med Refill 03/21/2024 Encounter Details Date Type Department Care Team (Late st Contact Info) Description 03/21/2024 Refill [facility] MEDICINE [address] [place] [address] Carlo Santana MD [address] [place], [place] [phone] Chronic left-sided low back pain with left-sided [...] Telephone Encounter - Quan Mena - 03/21/2024 3:34 PM EST TC from pt requesting medication refill. Medications needing refill: oxyCODONE-acetaminophen (Percocet) 7.5-325 MG tablet To be sent to: [facility]/pharmacy #[id number] - [place]HA PHILLIPS - [address] [facility] documented in this encounter Plan of Treatment Upcoming Encounters Date Type Department Care Team ([facility] st Contact Info) Description 05/31/2024 11:00 AM EDT Clinical Support [facility] MED & PEDS [address] [place] [address] 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, HUGO [address] [place] [address] documented as of this encounter Visit Diagnoses Diagnosis Chronic left-sided low back pain with left-sided sciatica documented in this encounter Additional Health Concerns Assessment Noted Time PHQ-9 Depression Total Score: 15 024 11:50 AM EST documented as of this encounter Care Teams Webmethods Consultant Relationship Specialty Start Date End Date Carlo Santana MD [address] [place] [address] PCP - General Internal Medicine 12/28/17 documented as of this encounter
--- OUTSIDE RECORDS SUMMARY | 2024-04-09 12:59 | XMS_ITS | Encounter Summary ---
Author Organization [employer] Address [address] [place] [address] 7 [place] [address] Care Team Providers Care Cement Tester Assistant Name Role Phone Carlo Santana MD Primary Care Provider +1- [phone] Reason for Visit * Reason Comments controlled substance treatment Encounter Details Date Type Department Care Team ([facility] Contact Info) Description 03/12/2024 9:30 AM EST Telemedicine [facility] MED & PEDS [address] [place] [address] 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, RN [address] [place] [address] Chronic left-sided low back pain with left-sided [...] AM EDT documented as of this encounter Progress Notes * 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 RN - 03/12/2024 9:30 AM EST S: HOUSE DIRECTOR Televisit. Patient is taking Percocet 7.5-325mg Q 6hr PRN for low back pain. Clonazepam 1mg every day PRN. No adverse effects. Current pain level is 7- 8/10 located in the R leg, neck and back.Patient reports 50% pain relief from the medication. Gabapentin 100mg tid. Patient denies smoking cigarettes, ETOH or illicit drugs use. Patient f/u with pain management. Patient also uses Lidocaine ointment. No questions/ concerns at this time. O: VSS. HOUSE DIRECTOR tier 4. DIRECTOR OF OPTIMIZATION checked on 03/12/24. No discrepancies noted. Pill count performed over the phone. Patient stated she has 56 Percocet left, 54 expected. 0 Clonazepam, 0 expected. Medication isnot being overused. A: Chronic opioid use r/t chronic pain. P: Patient to cont. with current pain medication regimen, and take medications only as directed. f/u for next HOUSE DIRECTOR NV, scheduled for 05/31/24 @11am. f/u sooner PRN. Patient verbalized understanding andagreed to plan. documented in this encounter Plan of Treatment Upcoming Encounters Date Type Department Care Team ([facility] st Contact Info) Description 05/31/2024 11:00 AM EDT Clinical Support [facility] MED & PEDS [address] [place] [address] 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 RN [address] [place] [address] documented as of this encounter Visit Diagnoses Diagnosis Chronic left-sided low back pain with left-sided sciatica documented in this encounter Additional Health Concerns Assessment Noted Time PHQ-9 Depression Total Score: 15 024 11:50 AM EST documented as of this encounter Care Teams Cement Tester Assistant Relationship Specialty Start Date End Date Carlo Santana MD [address] [place] [address] PCP - General Internal Medicine 12/28/17 documented as of this encounter
--- OUTSIDE RECORDS SUMMARY | 2024-04-09 12:59 | XMS_ITS | Encounter Summary ---
Author Organization [employer] Address [address] [place] [address] 7t [place] [address] Care Team Providers Care Oil Tank Car Cleaner Name Role Phone Carlo Santana MD Primary Care Provider +1 [phone] Encounter Details Date Type Department Care Team (Late st Contact Info) Description 03/08/2024 Orders Only GENERIC EXTERNAL DATA DEPARTMENT Provider, Generic External Data Social History Tobacco Use Types Packs/Day Years [...] t he electric, gas, oil or water [employer] threatened to shut off services in your [...] Upcoming Encounters Date Type Department Care Team ([facility] st Contact Info) Description 05/31/2024 11:00 AM EDT Clinical Support [facility] MED & PEDS [address] [place] [address] 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, RN [address] [place] [address] documented as of this encounter Procedures Procedure Name Priority Date/Time Associated Diagnosis Comments CT ENTEROGRAPHY ABDOMEN PELVIS W CONTRAST Routine 04/05/2024 10:51 AM EST CALPROTECTIN, STOOL Routine 03/08/2024 7 :47 AM EST PANCREATIC ELASTASE, FECAL Routine 03/08/2024 7:47 AM EST documented in this encounter Results * CT Enterography Abdomen Pelvis w/ Contrast (04/05/2024 10:51 AM EST) Anatomical Region Laterality Modality Computed Tomogra phy 04/05/2024 10:5 1 AM EST Narrative 04/05/2024 11:37 AM EST ? [facility] ?[address] ?[place] [address] ? CT Scan Report ? Signed ? Patient: Du,Peri M ?MR#: [id number] ?? [id number] ? : 1980 ?Acct:[id number] ? Age/Sex: 43 / F ?ADM Date: /23/25 ? Loc: HO.CT ? Attending Dr: Cristel ARIAS ? Ordering Physician: Cristel Rendon ?? Date of Service: 04/05/24 ?? Procedure(s): CT enterography ?? Accession Number(s): [id number] ? cc: Carlo Santana MD; Cristel Rendon ? Report Number: ?? [id number]: Total DLP = ??295.00 mGy-cm ?? EXAMINATION: ??CT ABDOMEN PELVIS ENTEROGRAPHY WITHOUT IV CONTRAST ? HISTORY: R19.5 - Other fecal abnormalities ? COMPARISON: There are no prior studies for comparison. ? TECHNIQUE: CT scan of the abdomen and pelvis was performed following ?? administration of 85 mL Omnipaque 350 using standard departmental ?? protocol. ?? Coronal and sagittal reformatted images were generated and ?? reviewed. The patient received low density Volumen oral contrast ?? material for CT enterography. ? This CT exam was performed with one or more of the following dose ?? reduction techniques: automated exposure control, adjustment of the mA ?? and/or kV according to patient size, use of iterative reconstruction ?? technique. ? DLP: 295 mGy-cm ? FINDINGS: ? LOWER CHEST: The visualized lung bases are clear. There is no pleural ?? effusion. ? CARDIOVASCULATURE: The heart is normal in size. ??There is no ?? pericardial effusion. ? LIVER: ??The liver is normal in size and contour. ??No liver mass is ?? identified. ??The hepatic and portal veins are patent. ? GALLBLADDER / BILE DUCTS: ??The gallbladder is unremarkable. There is no ?? intra or extrahepatic biliary ductal dilatation. ? SPLEEN: The spleen is normal in size. No focal splenic lesion is ?? identified. ? PANCREAS: The pancreas is unremarkable in appearance. ? ADRENAL GLANDS: Within normal limits. ? KIDNEYS/RETROPERITONEUM: No renal calculi are identified. There is no ?? hydronephrosis. ??There is a 1.5 cm cyst at the upper pole of the left ?? kidney. ? LYMPH NODES: ??No abdominal or pelvic lymphadenopathy. ? VASCULATURE: ??The abdominal aorta is normal in caliber. ? MESENTERY/PERITONEUM: No free fluid. No masses. ??There is no free ?? intraperitoneal gas. ? STOMACH: ??Postsurgical changes are noted involving the stomach. ? SMALL BOWEL: ?? Small bowel is normal in caliber and is distended with ?? oral contrast. There is a small bowel anastomosis in the left upper ?? quadrant. There is no abnormal small bowel mucosal hyperenhancement. No ?? stricture is seen. ? COLON: ??The colon is unremarkable. ? APPENDIX: ??Normal. ? URINARY BLADDER/PELVIC ORGANS: The urinary bladder is unremarkable. ? The uterus is unremarkable. There is a 5.2 cm cystic structure in the ?? right posterior pelvis, likely related to the right ovary. The left ?? ovary is unremarkable. ? BONES / SOFT TISSUES: ??No suspicious bony or soft tissue abnormalities. ? CT/CT enterography ?? IMPRESSION: ?? 1. Postsurgical changes involving the stomach and proximal small bowel. ?? Otherwise unremarkable CT enterography. ? 2. 5.2 cm probable right ovarian cyst. Correlation with ultrasound is ?? suggested. ? Electronically signed by: ??Freeman Scanlon MD ??04/05/2024 11:34 AM EST ?? RP ? Dictated By: ?Freeman Scanlon MD ? Signed By: ?<Electronically signed by Freeman Scanlon MD in OV> ?04/05/24 1134 ? DD/ 1051 ? TD/TT: 04/05/24 1108 ? Paleologist: ? Procedure Note Geovanny Villalobos - 04/05/[address] [address] [address] Scan Report Signed Patient: Peri Sandy MMR#: [id number] : 1980Acct:[id number] Age/Sex: 43 / FADM Date: 04/05/24 Loc: HO.CT Attending Dr: Cristel Rendon [facility] Ordering Physician: Cristel Rendon [facility] Date of Service: 04/05/24 Procedure(s): CT enterography Accession Number(s): [id number] cc: Carlo Santana MD; Cristel Rendon [facility] Report Number: [id number]: Total DLP = 295.00 mGy-cm EXAMINATION: CT ABDOMEN PELVIS ENTEROGRAPHY WITHOUT IV CONTRAST HISTORY: R19.5 - Other fecal abnormalities COMPARISON: There are no prior studies for comparison. TECHNIQUE: CT scan of the abdomen and pelvis was performed following administration of 85 mL Omnipaque 350 using standard departmental protocol. Coronal and sagittal reformatted images were generated and reviewed. The patient received low density Volumen oral contrast material for CT enterography. This CT exam was performed with one or more of the following dose reduction techniques: automated exposure control, adjustment of the mA and/or kV according to patient size, use of iterative reconstruction technique. DLP: 295 mGy-cm FINDINGS: LOWER CHEST: The visualized lung bases are clear. There is no pleural effusion. CARDIOVASCULATURE: The heart is normal in size. There is no pericardial effusion. LIVER: The liver is normal in size and contour. No liver mass is identified. The hepatic and portal veins are patent. GALLBLADDER / BILE DUCTS: The gallbladder is unremarkable. There is no intra or extrahepatic biliary ductal dilatation. SPLEEN: The spleen is normal in size. No focal splenic lesion is identified. PANCREAS: The pancreas is unremarkable in appearance. ADRENAL GLANDS: Within normal limits. KIDNEYS/RETROPERITONEUM: No renal calculi are identified. There is no hydronephrosis. There is a 1.5 cm cyst at the upper pole of the left kidney. LYMPH NODES: No abdominal or pelvic lymphadenopathy. VASCULATURE: The abdominal aorta is normal in caliber. MESENTERY/PERITONEUM: No free fluid. No masses. There is no free intraperitoneal gas. STOMACH: Postsurgical changes are noted involving the stomach. SMALL BOWEL: Small bowel is normal in caliber and is distended with oral contrast. There is a small bowel anastomosis in the left upper quadrant. There is no abnormal small bowel mucosal hyperenhancement. No stricture is seen. COLON: The colon is unremarkable. APPENDIX: Normal. URINARY BLADDER/PELVIC ORGANS: The urinary bladder is unremarkable. The uterus is unremarkable. There is a 5.2 cm cystic structure in the right posterior pelvis, likely related to the right ovary. The left ovary is unremarkable. BONES / SOFT TISSUES: No suspicious bony or soft tissue abnormalities. CT/CT enterography IMPRESSION: 1. Postsurgical changes involving the stomach and proximal small bowel. Otherwise unremarkable CT enterography. 2. 5.2 cm probable right ovarian cyst. Correlation with ultrasound is suggested. Electronically signed by: Freeman Scanlon MD 04/05/2024 11:34 AM EST RP Dictated By: Freeman Scanlon MD Signed By: <Electronically signed by Freeman Scanlon MD in OV> 04/05/24 1134 DD/ 1051 TD/TT: 04/05/24 1108 Paleologist: [facility] External Provider IMG CT PROCEDURES Final Result * (ABNORMAL) Calprotectin, Stool (03/08/2024 7:47 AM EST) Calprotectin,Fecal 368(A) mcg/g [facility] Comment:Reference Range: <50 Normal 50-120 Borderline >120 ElevatedCalprotectin in Crohn's disease and ulcerative colitis canbe five to several thousand times above the referencepopulation (50 mcg/g or less). Levels are usually 50 mcg/gor less in healthy patients and with irritable bowelsyndrome. Repeat testing in 4-6 weeks is suggested forborderline values.THIS TEST WAS PERFORMED AT:[email or web address] [id number] [facility] [place] [address]ITONOCHERYL MOLINA MD,PHD,BATSHEVA 03/08/2024 7:47 AM EST 03/08/2024 9:18 AM EST Generic External Data Provider LAB BODY FLUIDS A ND STOOLS ORDERABLES Final Result [facility] [address] [place] [address] [phone] * Pancreatic elastase, fecal (03/08/2024 7:47 AM EST) Pancreatic Elastase 1 501 >200 mcg/g [facility] Comment:E-1 mcg/g feces Inte rpretation <100 Severe exocrine pancreatic insufficiency 100-200 Mild to moderate exocrine pancreatic insufficiency >200 NormalTHIS TEST WAS PERFORMED AT:[email or web address] [id number] [place] [address]JZLEPCHERYL MOLINA MD,PHD,BATSHEVA 03/08/2024 7:47 AM EST 03/08/2024 9:18 AM EST us Generic External Data Provider LAB BODY FLUIDS A ND STOOLS ORDERABLES Final Result [facility] [address] [place] [address] [phone] documented in this encounter Visit Diagnoses Not on filedocumented in this encounter Additional Health Concerns Assessment Noted Time PHQ-9 Depression Total Score: 15 01/25/ 024 11:50 AM EST documented as of this encounter Care Teams Oil Tank Car Cleaner Relationship Specialty Start Date End Date Carlo Santana MD [address] [place] [address] PCP - General Internal Medicine 12/28/17 documented as of this encounter
--- OUTSIDE RECORDS SUMMARY | 2024-04-09 12:59 | XMS_ITS | Encounter Summary ---
Author Organization [employer] Address [address] [facility] 7 [place] [address] Care Team Providers Care Refrigeration Service Technician Name Role Phone Carlo Santana MD Primary Care Provider +1- [phone] Reason for Visit * Reason Onset Date Comments Medication Question 08/15/2023 Encounter Details Date Type Department Care Team ([facility] st Contact Info) Description 08/15/2023 Telephone [facility] [address] [place] [address] Carlo Santana MD [address] [address] [place], [place] [id number] Medication Question Social History Tobacco Use Types [...] your housing situation today? I have dionne iwlliam 01/19/[address] you li [...] Access Q2 Not on file 01/19/2024 Comments Unknown Sex and Gender Information Value Date Recorded Sex Assigned at Female 01/11/2022 10:34 AM EDT Legal Sex Female 10:34 AM EDT Gender Identity Female 01/11/2022 10:34 AM EDT Sexual Orientation Straight 01/11/2022 10 :34 AM EDT documented as of this encounter Miscellaneous Notes * Telephone Encounter - Abby Man RN - 08/18/2023 11:56 AM EDT Tc from pt requesting a call back , states discussed with PCP on refilling script for clonazepam 1 mg, hydroxyzine 25 mg and ziprasidone 80 mg. Pt stated they are currently on a wait list to see a new psychiatrist and would like to know if PCP will sign off on script until they are seen. Would you be willing to continue these medications for pt. Until she gets to see new Psychiatrist or do you want me to make appt for pt. To discuss with you? Please Advise. * Telephone Encounter - Braden Cool - 08/15/2023 3:22 PM EDT Tc from pt requesting a call back , states discussed with PCP on refilling script for clonazepam 1 mg, hydroxyzine 25 mg and ziprasidone 80 mg. Pt stated they are currently on a wait list to see a new psychiatrist and would like to know if PCP will sign off on script until they are seen. Please contact at [phone] documented in this encounter Plan of Treatment Upcoming Encounters Date Type Department Care Team (Late st Contact Info) Description 05/31/2024 11:00 AM EDT Clinical Support [facility] [address] [place] [address] 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, RN [address] [place] [address] documented as of this encounter Visit Diagnoses Not on filedocumented in this encounter Additional Health Concerns Assessment Noted Time PHQ-9 Depression Total Score: 3 06/04/19 23 3:42 PM EDT documented as of this encounter Care Teams Refrigeration Service Technician Relationship Specialty Start Date End Date Carlo Santana MD [address] [place] [address] PCP - General Internal Medicine 12/28/17 documented as of this encounter
--- OUTSIDE RECORDS SUMMARY | 2024-04-09 12:59 | XMS_ITS | Encounter Summary ---
Author Organization [employer] Address [address] [place] [address] Care Team Providers Care Electric Wirer Name Role Phone Carlo Santana MD Primary Care Provider +1- [phone] Reason for Referral * Imaging (Routine) - Authorized Specialty Diagnoses / Procedures Referred By Contac t Referred To Contact Radiology Diagnoses Transaminitis Procedures US Abdomen Complete Carlo Santana MD [address] [place] [address] Phone: tel: fax: [address] Phone: tel: fax: Referral ID Status Reason Start Date Expiration Date V isits Requested Visits Authorized [id number] Authorized 03/23/2024 03/23/2025 1 1 Reason for Visit * Reason Comments Med Refill Encounter Details Date Type Department Care Team (Late st Contact Info) Description 03/21/2024 Refill [facility] MED & PEDS [address] [place] [address] Carlo Santana MD [address] [place] [address] Chronic left-sided low back pain with left-sided sciatica (Primary Dx); Transaminitis Social History Tobacco Use Types Packs/Day Years [...] encounter Miscellaneous Notes * Telephone Encounter - 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 RN - 03/23/2024 11:35 AM EST Spoke with PCP. Per PCP ok to send Oxycodone 10mg tid PRN and Tylenol 325mg. TC to pt, pt notified,verbalized understanding. * Telephone Encounter - 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 RN - 03/23/2024 8:50 AM EST Pharmacy stating Percocet 7.5-325 mg needs a PA. Asking if we can send Rx for Oxycodone only, without Tylenol. Can you please send it if you agree. Pt will be out of med. documented in this encounter Plan of Treatment Upcoming Encounters Date Type Department Care Team ([facility] st Contact Info) Description 05/31/2024 11:00 AM EDT Clinical Support [facility] CH[facility] MED & PEDS [address] [place] [address] 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 RN [address] [place] [address] Scheduled Orders Name Type Priority Associated Diagnoses Orde r Schedule US Abdomen Complete Imaging Routine Transaminitis Expected: 03/23/2024, Expires: 03/23/2025 documented as of this encounter Visit Diagnoses Diagnosis Chronic left-sided low back pain with left-sided sciatica- Primary Transaminitis Nonspecific elevation of levels of transaminase or lactic acid dehydrogenase (LDH) documented in this encounter Additional Health Concerns Assessment Noted Time PHQ-9 Depression Total Score: 15 01/25/ 024 11:50 AM EST documented as of this encounter Care Teams Electric Wirer Relationship Specialty Start Date End Date Carlo Santana MD [address] [place] [address] PCP - General Internal Medicine 12/28/17 documented as of this encounter
--- OUTSIDE RECORDS SUMMARY | 2024-04-09 12:59 | XMS_ITS | Encounter Summary ---
Author Organization [employer] Address [address] [place] [address] Care Team Providers Care Casting Machine Operator Helper Name Role Phone Carlo Santana MD Primary Care Provider [phone]- [phone] Reason for Referral * Consultation (Routine) - Authorized Specialty Diagnoses / Procedures Referred By Contac t Referred To Contact Neurosurgery Diagnoses Chronic left-sided low back pain with left-sided sciatica Carlo Santana MD [address] [place] [address] Phone: tel: fax: Neurosurgery, [address] [place] [address] Phone: tel: fax: Referral ID Status Reason Start Date Expiration Date Visits Requested Visits Authorized [id number] Authorized Specialty Services Required 03/22/2024 03/22/2025 1 1 Reason for Visit * Reason Comments Shoulder Pain Encounter Details Date Type Department Care Team (Latest Contact Info) Description 03/22/2024 2:30 PM EST Office Visit [facility] MED & PEDS [address] [place], [place] [phone] Carlo Santana MD [address] [place] [address] Chronic left shoulder pain (Primary Dx); Muscle spasm; Rib pain; Chronic left-sided low back pain with left-sided sciatica; Neck pain; Lumbar radiculopathy Social History Tobacco Use Types Packs/Day Years [...] AM EDT documented as of this encounter Last Filed Vital Signs Vital Sign Reading Time Taken Comments Blood Pressure 136/80 03/22/2024 2:47 PM EST Pulse 101 03/22/2024 2:47 PM EST Temperature 36.4 ??C (97.5 ??F) 03/22/2024 2:47 PM ES T Respiratory Rate 20 03/22/2024 2:47 PM EST Oxygen Saturation 98% 03/22/2024 2:47 PM EST Inhaled Oxygen Concentration - - Weight 57.2 kg (126 lb) 03/22/2024 2:47 PM EST Height 161.3 cm (5' 3.5 ) 03/22/2024 2:47 PM EST Body Mass Index 21.97 03/22/2024 2:47 PM EST documented in this encounter Progress Notes * Carlo Santana MD - 03/22/2024 2:30 PM EST Subjective Patient ID: Peri Sandy is a 43 y.o. female who presents for Shoulder Pain. Shoulder Pain This is a new problem. The current episode started more than 1 month ago. The problem occurs constantly. Started insidiously 6 months ago. Was initially intermittent and is becoming more constant. Exacerbated by reaching overhead, Improved w/ rest and not moving. Cannot pinpoint the culprit. No h/o fall or trauma reported. No associated fever. Patient Active Problem List Diagnosis Chronic right-sided low back pain with right-sided sciatica Acute pain of both shoulders Borderline personality disorder (CMS/HCC) Insomnia Bipolar disorder (CMS/HCC) Obesity with body mass index 30 or greater PCOS (polycystic ovarian syndrome) Posttraumatic stress disorder Very poor mobility Mixed stress and urge urinary incontinence Diarrhea VALENTINA (generalized anxiety disorder) Secondary female infertility Heartburn Acne Depressive disorder Hidradenitis suppurativa Preop cardiovascular exam Current Outpatient Medications on File Prior to Visit Medication Sig Dispense Refill amLODIPine (Norvasc) 5 MG tablet TAKE 1 TABLET BY MOUTH EVERY MORNING 90 tablet 2 ARIPiprazole (Abilify) 2 MG tablet Take 2 mg by mouth Once per day. cetirizine (ZyrTEC) 10 MG tablet TAKE 1 TABLET BY MOUTH EVERY DAY IN THE MORNING 90 tablet 3 clonazePAM (KlonoPIN) 1 MG tablet Take 1 tablet (1 mg) by mouth if needed each day for anxiety. 30 tablet 0 D3-1000 25 MCG (1000 UT) capsule Take 1 capsule (25 mcg) by mouth Once per day. 90 capsule 0 DULoxetine (Cymbalta) [address] capsule TAKE 1 CAPSULE BY MOUTH TWICE A DAY. DO NOT CRUSH OR CHEW. 60 capsule 2 gabapentin (Neurontin) 600 MG tablet TAKE 1 TABLET BY MOUTH 3 TIMES A DAY FOR 30 DAYS hydrOXYzine pamoate (Vistaril) 50 MG capsule TAKE 1 CAPSULE BY MOUTH EVERY 8 HOURS IF NEEDED FOR ITCHING 90 capsule 3 lidocaine (Lidoderm) 5 % patch APPLY 1 PATCH TOPICALLY EVERY DAY REMOVE AND DISCARD PATCH WITHIN 12HOURS OR DIRECTED BY MD. 30 patch 1 methocarbamol (Robaxin) 500 MG tablet Take 1 tablet (500 mg) by mouth 4 times daily. 30 tablet 0 naloxone (Narcan) 4 mg/0.1 mL nasal spray Administer 0.1 mL into affected nostril(s). [place] 0.1 milliliter by intranasal route in 1 nostril may repeat dose every 2-3 minutes as needed alternating nostrils with each dose Nutritional Supplements (Boost High Protein) liquid DRINK 1 CAN TWICE DAILY 5688 mL 11 ondansetron (Zofran) 4 MG tablet TAKE 2 TABLETS BY MOUTH EVERY 8 HOURS NEEDED FOR NAUSEA OR VOMITING 30 tablet 3 oxybutynin XL (Ditropan-XL) 5 MG 24 hr tablet TAKE 1 TABLET (5 MG) BY MOUTH IN THE MORNING . DO NOTCRUSH, CHEW, OR SPLIT 30 tablet 2 [START ON 03/23/2024] oxyCODONE-acetaminophen (Percocet) 7.5-325 MG tablet Take 1 tablet by mouth every 6 (six) hours if needed for severe pain. Do not start before March 23, 2024. 112 tablet 0 solifenacin (VESIcare) 10 MG tablet Take 10 mg by mouth at bedtime. spironolactone (Aldactone) 50 MG tablet Take 1 tablet by mouth 1 (one) time each day. topiramate 50 MG tablet TAKE 1 TABLET BY MOUTH TWICE A DAY 60 tablet 11 valACYclovir (Valtrex) 500 MG tablet Take 500 mg by mouth Once per day. ziprasidone (Geodon) 80 MG capsule TAKE 1 CAPSULE BY MOUTH IN THE EVENING. 60 capsule 1 [DISCONTINUED] celecoxib (CeleBREX) 200 MG capsule TAKE 1 CAPSULE BY MOUTH IN THE MORNING AND AT BEDTIME NEEDED FOR MODERATE PAIN 60 capsule 0 [DISCONTINUED] lidocaine (Xylocaine) 5 % ointment APPLY 5 GRAMS TO AFFECTED AREA 4 TIMES A DAY NEEDED FOR MILD PAIN 240 g 0 [DISCONTINUED] Nutritional Supplements (Ensure High Protein) liquid DRINK 1 CAN TWICE DAILY 237 mL 0 [DISCONTINUED] oxyCODONE-acetaminophen (Percocet) 7.5-325 MG tablet Take 1 tablet by mouth every 6 (six) hours if needed for severe pain. Do not start before February 28, 2024. 112 tablet 0 No current facility-administered medications on file prior to visit. Allergies Allergen Reactions Cyclobenzaprine Other reaction(s): ? reaction Review of Systems Constitutional: Negative for appetite change, chills and diaphoresis. Eyes: Negative for pain, redness and itching. Respiratory: Negative for shortness of breath, wheezing and stridor. Cardiovascular: Negative for leg swelling. Gastrointestinal: Negative for anal bleeding and blood in stool. Musculoskeletal: Left shoulder pain Objective BP 136/80 (BP Location: Left arm, Patient Position: Sitting, BP Cuff Size: Adult) Pulse 101 Temp 97.5 ??F (36.4 ??C) (Oral) Resp 20 Ht 5' 3.5 (1.613 m) Wt 126 lb (57.2 kg) SpO2 98% BMI21.97 kg/m?? Physical Exam Constitutional: General: She is not in acute distress. Appearance: Normal appearance. She is not ill-appearing, toxic-appearing or diaphoretic. Cardiovascular: Rate and Rhythm: Normal rate. Pulmonary: Effort: Pulmonary effort is normal. Breath sounds: No rales. Musculoskeletal: Right shoulder: Normal. Left shoulder: Tenderness present. Decreased range of motion. Neurological: Mental Status: She is alert. Assessment/Plan Diagnoses and all orders for this visit: Chronic left shoulder pain Comments: Moist heat Pt declines a steroid injections ? Bicipital tendinitis I will refer to physical therapy if the x-ray is normal. I believe this will prevent frozen shoulder. Orders: - celecoxib (CeleBREX) 200 MG capsule; TAKE 1 CAPSULE BY MOUTH IN THE MORNING AND AT BEDTIME NEEDED FOR MODERATE PAIN - lidocaine (Xylocaine) 5 % ointment; APPLY 5 GRAMS TO AFFECTED AREA 4 TIMES A DAY NEEDED FOR MILD PAIN - XR Shoulder 2+ Views Left; Future Muscle spasm - celecoxib (CeleBREX) 200 MG capsule; TAKE 1 CAPSULE BY MOUTH IN THE MORNING AND AT BEDTIME NEEDED FOR MODERATE PAIN Rib pain - lidocaine (Xylocaine) 5 % ointment; APPLY 5 GRAMS TO AFFECTED AREA 4 TIMES A DAY NEEDED FOR MILD PAIN Chronic left-sided low back pain with left-sided sciatica Comments: Follow up w/ pain management Continue w. COT for now Moist heat/lidocaine as directed Orders: - lidocaine (Xylocaine) 5 % ointment; APPLY 5 GRAMS TO AFFECTED AREA 4 TIMES A DAY NEEDED FOR MILD PAIN - Referral to Neurosurgery; Future Neck pain Comments: Continue with the COT and lidocaine as prescribed Orders: - lidocaine (Xylocaine) 5 % ointment; APPLY 5 GRAMS TO AFFECTED AREA 4 TIMES A DAY NEEDED FOR MILD PAIN documented in this encounter Plan of Treatment Upcoming Encounters Date Type Department Care Team (Late st Contact Info) Description 05/31/2024 11:00 AM EDT Clinical Support [facility] & PEDS [address] [place] [address] 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 RN [address] [place] [address] Scheduled Orders Name Type Priority Associated Diagnoses Orde r Schedule XR Shoulder 2+ Views Left Imaging Routine Chronic left shoulder pain Expected: 03/22/2024, Expires: 03/22/2025 Scheduled Referrals Name Type Priority Associated Diagnoses Order Schedule Referral to Neurosurgery Outpatient Referral Routine Chronic left-sided low back pain with left-sided sciatica Expected: 03/22/2024 (Approximate), Expires: 03/22/2025 documented as of this encounter Visit Diagnoses Diagnosis Chronic left shoulder pain- Primary Pain in joint, shoulder region Muscle spasm Spasm of muscle Rib pain Unspecified chest pain Chronic left-sided low back pain with left-sided sciatica Neck pain Cervicalgia Lumbar radiculopathy Thoracic or lumbosacral neuritis or radiculitis, unspecified documented in this encounter Additional Health Concerns Assessment Noted Time PHQ-9 Depression Total Score: 15 024 11:50 AM EST documented as of this encounter Care Teams Casting Machine Operator Helper Relationship Specialty Start Date End Date Carlo Santana MD [address] [place] [address] PCP - General Internal Medicine 12/28/17 documented as of this encounter
--- OUTSIDE RECORDS SUMMARY | 2024-04-09 12:59 | XMS_ITS | Encounter Summary ---
Author Organization [employer] Address [address] [facility] 7 [place] [address] Care Team Providers Care Machine Operators Name Role Phone Carlo Santana MD Primary Care Provider [phone]- [phone] Reason for Visit * Reason Onset Date Comments Results 03/15/2024 Encounter Details Date Type Department Care Team (Late st Contact Info) Description 03/15/2024 Telephone [facility] MEDICINE [address] [place] [address] Carlo Santana MD [address] [facility] [facility] [address] [place], [place] [phone] Results Social History Tobacco Use Types Packs/Day [...] encounter Miscellaneous Notes * Telephone Encounter - Fallon Lindsey RN - 03/16/2024 2:00 PM EST TC placed to pt to inform that the Calprotectin, stool testing and pancreatic elastase were orderedby [facility]. Pt confirms that she had a f/u with them today and they addressed all questions and concerns that she had. * Telephone Encounter - Rosita Deleon RN - 03/15/2024 9:44 AM EST Please review and advise. * Telephone Encounter - Patricia Espinal - 03/15/2024 8:05 AM EST TC from pt requesting call back regarding Results. Type of results: Calprotectin, stool pancreatic elastase Date when done: 03/08/2024 Facility: [facility] documented in this encounter Plan of Treatment Upcoming Encounters Date Type Department Care Team (Late st Contact Info) Description 05/31/2024 11:00 AM EDT Clinical Support [facility] MED & PEDS [address] [place] [address] 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, HUGO [address] [place] [address] documented as of this encounter Visit Diagnoses Not on filedocumented in this encounter Additional Health Concerns Assessment Noted Time PHQ-9 Depression Total Score: 15 024 11:50 AM EST documented as of this encounter Care Teams Machine Operators Relationship Specialty Start Date End Date Carlo Santana MD [address] [place] [address] PCP - General Internal Medicine 12/28/17 documented as of this encounter
--- OUTSIDE RECORDS SUMMARY | 2024-04-09 12:59 | XMS_ITS | Encounter Summary ---
Author Organization [employer] Address [address] [facility] 7t [place] [address] Care Team Providers Care Program Engineer Name Role Phone Carlo Santana MD Primary Care Provider [phone] Encounter Details Date Type Department Care Team (Latest Contact Info) Description 03/12/2024 Travel Social History Tobacco Use Types Packs/Day Years [...] t he electric, gas, oil or water [employer] threatened to shut off services in your [...] Description 05/31/2024 11:00 AM EDT Clinical Support [facility] PEDS [address] [place] [address] 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, RN [address] [place] [address] documented as of this encounter Visit Diagnoses Not on filedocumented in this encounter Additional Health Concerns Assessment Noted Time PHQ-9 Depression Total Score: 15 024 11:50 AM EST documented as of this encounter Care Teams Program Engineer Relationship Specialty Start Date End Date Carlo Santana MD [address] [place] [address] PCP - General Internal Medicine 12/28/17 documented as of this encounter
--- OUTSIDE RECORDS SUMMARY | 2024-04-09 12:59 | XMS_ITS | Encounter Summary ---
Author Organization [employer] Address [address] [facility] 7t [place] [address] Care Team Providers Care Gold Leaf Laborer Name Role Phone Carlo Santana MD Primary Care Provider +1 [phone] Encounter Details Date Type Department Care Team (Latest Contact Info) Description 03/22/2024 Travel Social History Tobacco Use Types Packs/Day [...] t he electric, gas, oil or water [employer] threatened to shut off services in your [...] 11:00 AM EDT Clinical Support [facility] CHC MED & PEDS [address] [place] [address] 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, RN [address] [place] [address] documented as of this encounter Visit Diagnoses Not on filedocumented in this encounter Additional Health Concerns Assessment Noted Time PHQ-9 Depression Total Score: 15 024 11:50 AM EST documented as of this encounter Care Teams Gold Leaf Laborer Relationship Specialty Start Date End Date Carlo Santana MD [address] [place] [address] PCP - General Internal Medicine 12/28/17 documented as of this encounter
--- OUTSIDE RECORDS SUMMARY | 2024-04-09 12:59 | XMS_ITS | Encounter Summary ---
Author Organization [employer] Address [address] [place] [address] 7 [place] [address] Care Team Providers Care Licensed Funeral Director Name Role Phone Carlo Santana MD Primary Care Provider +1- [phone] Reason for Visit * Reason Onset Date Comments Med Refill 03/12/2024 Encounter Details Date Type Department Care Team ([facility] st Contact Info) Description 03/12/2024 Refill [facility] CHC MED & PEDS [address] [place] [address] Carlo Santana MD [address] [place] [address] VALENTINA (generalized anxiety disorder) Social History Tobacco [...] * Telephone Encounter - Maddie Han - 03/12/2024 11:28 AM EST TC from pt requesting medication refill. Medications needing refill : oxyCODONE-acetaminophen (Percocet) 7.5-325 MG tablet clonazePAM (KlonoPIN) 1 MG tablet To be sent to: [facility]/pharmacy #[id number] - [place]HA PHILLIPS - [address] [facility] documented in this encounter Plan of Treatment Upcoming Encounters Date Type Department Care Team (Late st Contact Info) Description 05/31/2024 11:00 AM EDT Clinical Support [facility] MED & PEDS [address] [place] [address] 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, HUGO [address] [place] [address] documented as of this encounter Visit Diagnoses Diagnosis VALENTINA (generalized anxiety disorder) Generalized anxiety disorder documented in this encounter Additional Health Concerns Assessment Noted Time PHQ-9 Depression Total Score: 15 024 11:50 AM EST documented as of this encounter Care Teams Licensed Funeral Director Relationship Specialty Start Date End Date Carlo Santana MD [address] [place] [address] PCP - General Internal Medicine 12/28/17 documented as of this encounter
--- OUTSIDE RECORDS SUMMARY | 2024-04-09 12:59 | XMS_ITS | Encounter Summary ---
Author Organization [employer] Address [address] [facility] 7 [place] [address] Care Team Providers Care Quality Director Name Role Phone Carlo Santana MD Primary Care Provider +1- [phone] Reason for Visit * Reason Onset Date Comments Medication Question 03/23/2024 Encounter Details Date Type Department Care Team ([facility] st Contact Info) Description 03/23/2024 Telephone [facility] MEDICINE [address] [place] [address] Carlo Santana MD [address] [facility] [address] [place], [place] [phone] Medication Question Social History Tobacco Use Types [...] encounter Miscellaneous Notes * Telephone Encounter - Patricia Espinal - 03/23/2024 8:23 AM EST Tc from pt requesting a callback as Oxycodone needs a PA due tylenol being in pt med list [phone] documented in this encounter Plan of Treatment Upcoming Encounters Date Type Department Care Team ([facility] st Contact Info) Description 05/31/2024 11:00 AM EDT Clinical Support [facility] CHC MED & PEDS [address] [place] [address] 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, HUGO [address] [place] [address] documented as of this encounter Visit Diagnoses Not on filedocumented in this encounter Additional Health Concerns Assessment Noted Time PHQ-9 Depression Total Score: 15 024 11:50 AM EST documented as of this encounter Care Teams Quality Director Relationship Specialty Start Date End Date Carlo Santana MD [address] [place] [address] PCP - General Internal Medicine 12/28/17 documented as of this encounter
--- OUTSIDE RECORDS SUMMARY | 2024-04-09 13:00 | XMS_ITS | Encounter Summary ---
Author Organization [employer] Address [address] [place] [address] Care Team Providers Care Hand Flatwork Finisher Name Role Phone Carlo Santana MD Primary Care Provider +1- [phone] Reason for Referral * Imaging (Routine) - Closed Specialty Diagnoses / Procedures Referred By Contac t Referred To Contact Diagnoses Right ovarian cyst Procedures Us Pelvis complete Carlo Santana MD [address] [place] [address] Phone: tel: fax: [address] Phone: tel: fax: Referral ID Status Reason Start Date Expiration Date Visits Re quested Visits Authorized [id number] Closed 07/08/2022 01/04/2023 1 1 * Imaging (Routine) - Closed Specialty Diagnoses / Procedures Referred By Contac t Referred To Contact Diagnoses Right ovarian cyst Procedures US Pelvis Transvaginal Carlo Santana MD [address] [place] [address] Phone: tel: fax: [address] Phone: tel: fax: Referral ID Status Reason Start Date Expiration Date Visits Re quested Visits Authorized [id number] Closed 07/08/2022 01/04/2023 1 1 Encounter Details Date Type Department Care Team ([facility] Contact Info) Description 07/08/2022 Orders Only [facility] MED & PEDS [address] [place] [address] Carlo Santana MD [address] [place] [address] Right ovarian cyst (Primary Dx) Social History Tobacco Use Types Packs/Day Years Used Date Smoking Tobacco: Never Passive Smoke Exposure: Never Smokeless Tobacco: Never Alcohol Use Standard Drinks/Week Comments Never 0 (1 standard drink = 0.6 oz pur e alcohol) Depression Answer Date Recorded Patient Health Questionnaire-9 Score 3 06/03/2022 Depression Answer Date Recorded Patient Health Questionnaire-2 Score 0 06/03/2022 Comments Unknown Sex and Gender Information Value Date Recorded Sex Assigned at Female 01/11/2022 10:34 AM EDT Legal Sex Female 10:34 AM EDT Gender Identity Female 01/11/2022 10:34 AM EDT Sexual Orientation Straight 01/11/2022 10 :34 AM EDT COVID-19 Exposure Response Date Recorded In the last 10 days, have yo u been in contact with someone who was confirmed or suspected to have Coronavirus/COVID-19? No / Unsure 07/05/2022 12:34 PM EDT documented as of this encounter Plan of Treatment Upcoming Encounters Date Type Department Care Team ([facility] Contact Info) Description 05/31/2024 11:00 AM EDT Clinical Support [facility] MED & PEDS [address] [place] [address] 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 RN 505 [place] [address] Scheduled Orders Name Type Priority Associated Diagnoses Orde r Schedule US Pelvis Transvaginal Imaging Routine Right ovarian cyst Expected: 07/08/2022, Expires: 07/09/2023 Us Pelvis complete Imaging Routine Right ovarian cyst Expected: 07/08/2022, Expires: 07/09/2023 documented as of this encounter Procedures Procedure Name Priority Date/Time Associated Diagnosis Comments CBC WITH AUTO DIFFERENTIAL Routine 07/08/2022 11:37 AM EDT Right ovarian cyst APTT Routine 07/08/2022 11:37 AM EDT Right ovarian cyst SED RATE BY MODIFIED WESTERGREN Routine 07/08/2022 11:37 AM EDT Right ovarian cyst PROTHROMBIN TIME-INR Routine 07/08/2022 11:37 AM EDT Right ovarian cyst TRUDY SCREEN, IFA, W/REFL TITER AND PATTERN Routine 07/08/2022 11:37 AM EDT Right ovarian cyst documented in this encounter Results * (ABNORMAL) TRUDY SCR, IFA W/Refl Titer and Pattern (07/08/2022 11:37 AM EDT) Anti Nuclear Antibody Screen POSITIV E(A) NEGATIVE [facility] Comment:TRUDY IFA is a first l ine screen for detecting thepresence of up to approximately 150 autoantibodies invarious autoimmune diseases. A positive TRUDY IFA resultis suggestive of autoimmune disease and reflexes totiter and pattern. Further laboratory testing may beconsidered if clinically indicated.For additional information, please refer [email or web address]/faq/[email or web address](This link is being provided for informational/educational purposes only.) TRUDY Titer 1:640(A ) titer [facility] Comment:Reference Range <1:4 0 Negative 1:40-1:80 Low Antibody Level >1:80 Elevated Antibody Level TRUDY Pattern Nuclear , Homogen eous(A) [facility] Comment:Homogeneous pattern is associated with systemic lupuserythematosus (SLE), drug-induced lupus and juvenileidiopathic arthritis.AC-1: HomogeneousInternational Consensus on TRUDY Patterns(https://doi.org/10.1515/tmge-5232-4524)THIS TEST WAS PERFORMED AT:[address] [place] [phone] [id number] HUTTON MD TRUDY TITER 2 (REF LAB) [facility] 2 [facility] TRUDY TITER 3 [facility] TRUDY PATTERN 3 [facility] 07/08/2022 11:3 7 AM EDT 07/08/2022 11:37 AM EDT [facility] External Provider LAB BLO OD ORDERABLES Final Result Performing Organization Address [facility] Co de Phone Number [facility] [address] [place] [address] [phone] * Sed Rate by Modified Magdalene (07/08/2022 11:37 AM EDT) Erythrocyte Sedimentation Rate 6 0 - 20 MM/HR [facility] Comment:Patients with polycy themia and many hemoglobin abnormalitiesmay have depressed sed rates whereas patients with anemiamay have elevated sed rates. 07/08/2022 11:3 7 AM EDT 07/08/2022 11:37 AM EDT [facility] External Provider LAB BLO OD ORDERABLES Final Result Performing Organization Address [facility] de Phone Number [facility] [address] [place] [address] [phone] * APTT (07/08/2022 11:37 AM EDT) Partial Thromboplastin Time 30.5 26.0 - 36.4 SEC [facility] 07/08/2022 11:3 7 AM EDT 07/08/2022 11:37 AM EDT [facility] External Provider LAB BLO OD ORDERABLES Final Result Performing Organization Address [facility] de Phone Number [facility] [address] [place] [address] [phone] * Prothrombin Time-INR (07/08/2022 11:37 AM EDT) [facility] Prothrombin Time 11.8 10.0 - 13.1 SEC [facility] INTERNATIONAL NORM RATIO 1.0 0.9 - 1.1 [facility] Comment:INTERNATIONAL NORMAL IZED RATIO (INR) REFERENCE RANGES Reference RangeFor patients not on anticoagulant therapy: 0.9 - 1.1INR ranges for oral anticoagulanttherapy:For prevention and treatment of venous thrombosis and pulmonary embolism: 2.0 - 3.0For acute myocardial infarction with aspirin therapy: 2.0 - 3.0For acute myocardial infarction without aspirin therapy: 3.0 - 4.0For patients with mechanical prosthetic heart valves: 2.5 - 3.5 07/08/2022 11:3 7 AM EDT 07/08/2022 11:37 AM EDT [facility] External Provider LAB BLO OD ORDERABLES Final Result Performing Organization Address City/State/[facility] Co de Phone Number [facility] [address] [place] [phone] * (ABNORMAL) CBC auto differential (07/08/2022 11:37 AM EDT) [facility] White Blood Count 9.3 4.8 - 10.8 X10*3/uL [facility] Red Blood Count 4.52 4.20 - 5.50 X10*6/uL [facility] Hemoglobin 14.3 12.0 - 16.0 g/dl [facility] Hematocrit 42.3 37.0 - 47.0 % [facility] Mean Corpuscular Volume 93.6 80.0 - 98.0 fL [facility] Mean Corpuscular Hemoglobin 31.6 27.0 - 33.0 pg [facility] Mean Corpuscular HGB Conc 33.8 31.0 - 35.0 g/dl [facility] Red Cell Distribution Width 12.4 11.0 - 16.0 % [facility] Platelet Count 260 160 - 400 X10*3/uL [facility] Mean Platelet Volume 11.0 9.4 - 12.3 fL [facility] Neutrophils Percent Auto 67.8 45 - 73 % [facility] Imm Gran Pct Auto 0.4 0.0 - 0.4 % [facility] Lymphocytes Percent Auto 24.9 20 - 40 % [facility] Monocytes Percent Auto 5.5 2 - 11 % [facility] Eosinophils Percent Auto 0.8 0 - 4 % [facility] Basophils Percent Auto 0.6 0 - 2 % [facility] NRBC Pct Auto 0.0 0.0 - 0.2 /100WBC [facility] Neutrophils Absolute Auto 6.3 2.0 - 8.3 x10*3/uL [facility] Imm Gran Abs Auto 0.04(H) 0.00 - 0.03 X10*3/uL [facility] Lymphocytes Absolute Auto 2.3 1.2 - 4.9 X10*3/uL [facility] Monocytes Absolute Auto 0.5 0.1 - 1.2 X10*3/uL [facility] Eosinophils Absolute Auto 0.1 0.0 - 0.4 X10*3/uL [facility] Basophils Absolute Auto 0.1 0.0 - 0.2 X10*3/uL [facility] NRBC Abs Auto 0.000 0.0 - 0.012 X10*3/uL [facility] 07/08/2022 11:3 7 AM EDT 07/08/2022 11:37 AM EDT us [facility] External Provider LAB BLO OD ORDERABLES Final Result [facility] [address] [place] [address] [phone] documented in this encounter Visit Diagnoses Diagnosis Right ovarian cyst- Primary Other and unspecified ovarian cyst documented in this encounter Additional Health Concerns Assessment Noted Time PHQ-9 Depression Total Score: 3 06/04/19 23 3:42 PM EDT documented as of this encounter Care Teams Hand Flatwork Finisher Relationship Specialty Start Date End Date Carlo Santana MD [address] [place] [address] PCP - General Internal Medicine 12/28/17 documented as of this encounter
--- OUTSIDE RECORDS SUMMARY | 2024-04-09 13:00 | XMS_ITS | Encounter Summary ---
Author Organization [employer] Address [address] [facility] 7 [place] [address] Care Team Providers Care Timber Management Assistant Name Role Phone Carlo Santana MD Primary Care Provider [phone]- [phone] Reason for Visit * Reason Onset Date Comments FYI 08/10/2023 Encounter Details Date Type Department Care Team (Late st Contact Info) Description 08/10/2023 Telephone [facility] MEDICINE [address] [place] [address] Carlo Santana MD [address] [place], [place] [phone] FYI Social History Tobacco Use Types Packs/Day Years [...] encounter Miscellaneous Notes * Telephone Encounter - Angel Luis Oreilly - 08/10/2023 2:06 PM EDT Tc from patient calling to report to the provider that the following medication is functioning oxyCODONE-acetaminophen (Percocet) 7.5-325 MG tablet , ondansetron (Zofran) 4 MG tablet and ziprasidone (Geodon) 60 MG capsule documented in this encounter Plan of Treatment Upcoming Encounters Date Type Department Care Team (Late st Contact Info) Description 05/31/2024 11:00 AM EDT Clinical Support [facility] MED & PEDS [address] [place] [address] 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, HUGO [address] [place] [address] documented as of this encounter Visit Diagnoses Not on filedocumented in this encounter Additional Health Concerns Assessment Noted Time PHQ-9 Depression Total Score: 3 06/04/19 23 3:42 PM EDT documented as of this encounter Care Teams Timber Management Assistant Relationship Specialty Start Date End Date Carlo Santana MD [address] [place] [address] PCP - General Internal Medicine 12/28/17 documented as of this encounter
--- OUTSIDE RECORDS SUMMARY | 2024-04-09 13:00 | XMS_ITS | Encounter Summary ---
Author Organization [employer] Address [address] [place] [address] [address], [place] [address] Care Team Providers Care Sweatband Cutting Machine Operator Name Role Phone Carlo Santana MD Primary Care Provider Encounter Details Date Type Department Care Team (Late st Contact Info) Description 11/03/2022 Orders Only [facility] MED & PEDS [address] [place] [address] Carlo Santana MD [address] [place] [address] Obesity (BMI 30-39.9) (Primary Dx); Chronic left-sided low back pain [...] 11:00 AM EDT Clinical Support [facility] MED & PEDS [address] [place] [address] 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, RN [address] [place] [address] documented as of this encounter Visit Diagnoses Diagnosis Obesity (BMI 30-39.9)- Primary Chronic left-sided low back pain with left-sided sciatica documented in this encounter Additional Health Concerns Assessment Noted Time PHQ-9 Depression Total Score: 3 06/04/19 23 3:42 PM EDT documented as of this encounter Care Teams Sweatband Cutting Machine Operator Relationship Specialty Start Date End Date Carlo Santana MD [address] [place] [address] PCP - General Internal Medicine 12/28/17 documented as of this encounter
--- OUTSIDE RECORDS SUMMARY | 2024-04-09 13:00 | XMS_ITS | Encounter Summary ---
Author Organization [employer] Address [address] [facility] 7 [place] [address] Care Team Providers Care Lab Technician Name Role Phone Carlo Santana MD Primary Care Provider +1- [phone] Reason for Visit * Reason Onset Date Comments Med Refill 12/27/2023 Encounter Details Date Type Department Care Team ([facility] st Contact Info) Description 12/27/2023 Telephone [facility] MEDICINE [address] [place] [address] Carlo Santana MD [address] [facility] [address] [place], [place] [phone] Med Refill Social History Tobacco Use Types [...] * Telephone Encounter - Braden Cool - 12/27/2023 8:13 AM EDT Tc from pt requesting a refill for oxyCODONE-acetaminophen (Percocet) 7.5-325 MG tablet documented in this encounter Plan of Treatment Upcoming Encounters Date Type Department Care Team ([facility] st Contact Info) Description 05/31/2024 11:00 AM EDT Clinical Support [facility] MED & PEDS [address] [place] [address] 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 RN [address] [place] [address] documented as of this encounter Visit Diagnoses Not on filedocumented in this encounter Additional Health Concerns Assessment Noted Time PHQ-9 Depression Total Score: 3 06/04/19 23 3:42 PM EDT documented as of this encounter Care Teams Lab Technician Relationship Specialty Start Date End Date Carlo Santana MD [address] [place] [address] PCP - General Internal Medicine 12/28/17 documented as of this encounter
--- OUTSIDE RECORDS SUMMARY | 2024-04-09 13:00 | XMS_ITS | Encounter Summary ---
Author Organization [employer] Address [address] [facility] 7 [place] [address] Care Team Providers Care Hospice Director Name Role Phone Carol Santana MD Primary Care Provider [phone]- [phone] Reason for Visit * Reason Onset Date Comments Call Back Request 07/20/2023 Encounter Details Date Type Department Care Team ([facility] st Contact Info) Description 07/20/2023 Telephone [facility] MEDICINE [address] [place] [address] Carlo Santana MD [address] [facility] [address] [place], [place] [phone] Call Back Request Social History Tobacco Use Types Packs/Day [...] * Telephone Encounter - Hien Jarquin - 07/20/2023 8:10 AM EDT Tc from pt requesting a call back in regards appt for today, no further details provided. documented in this encounter Plan of Treatment Upcoming Encounters Date Type Department Care Team (Late st Contact Info) Description 05/31/2024 11:00 AM EDT Clinical Support [facility] MED & PEDS [address] [place] [address] 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, HUGO [address] [place] [address] documented as of this encounter Visit Diagnoses Not on filedocumented in this encounter Additional Health Concerns Assessment Noted Time PHQ-9 Depression Total Score: 3 06/04/19 23 3:42 PM EDT documented as of this encounter Care Teams Hospice Director Relationship Specialty Start Date End Date Carlo Santana MD [address] [place] [address] PCP - General Internal Medicine 12/28/17 documented as of this encounter
--- OUTSIDE RECORDS SUMMARY | 2024-04-09 13:00 | XMS_ITS | Encounter Summary ---
Author Organization [employer] Address [address] [place] [address] Care Team Providers Care Mobile Marketing Specialist Name Role Phone Carlo Santana MD Primary Care Provider +1- [phone] Reason for Referral * Consultation (Routine) - Closed Specialty Diagnoses / Procedures Referred By Contfina t Referred To Contact Pain Medicine Diagnoses Chronic left-sided low back pain with left-sided sciatica Lumbar radiculopathy Chronic right-sided low back pain with right-sided sciatica Carlo Santana MD [address] [place] [address] Phone: tel: fax: [facility] [address] [place] [address] Phone: tel: fax: Referral ID Status Reason Start Date Expiration Date V isits Requested Visits Authorized [id number] Closed Specialty Services Required 07/29/2023 07/28/2024 1 1 Encounter Details Date Type Department Care Team ([facility] st Contact Info) Description 07/29/2023 Orders Only [facility] CH[facility] MED & PEDS [address] [place] [address] Carlo Santana MD [address] [place] [address] Chronic left-sided low back pain with left-sided sciatica (Primary Dx); Lumbar radiculopathy; Chronic right-sided low back pain with right-sided sciatica Social History Tobacco Use Types Packs/Day [...] 05/31/2024 11:00 AM EDT Clinical Support [facility] MED & PEDS [address] [place] [address] 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, HUGO [address] [place] [address] Scheduled Referrals Name Type Priority Associated Diagnoses Orde r Schedule Referral to Pain Medicine Outpatient Referral Routine Chronic left-sided low back pain with left-sided sciatica Lumbar radiculopathy Chronic right-sided low back pain with right-sided sciatica Expected: 07/29/2023 (Approximate), Expires: 07/28/2024 documented as of this encounter Visit Diagnoses Diagnosis Chronic left-sided low back pain with left-sided sciatica- Primary Lumbar radiculopathy Thoracic or lumbosacral neuritis or radiculitis, unspecified Chronic right-sided low back pain with right-sided sciatica documented in this encounter Additional Health Concerns Assessment Noted Time PHQ-9 Depression Total Score: 3 06/04/19 23 3:42 PM EDT documented as of this encounter Care Teams Mobile Marketing Specialist Relationship Specialty Start Date End Date Carlo Santana MD [address] [place] [address] PCP - General Internal Medicine 12/28/17 documented as of this encounter
--- OUTSIDE RECORDS SUMMARY | 2024-04-09 13:00 | XMS_ITS | Encounter Summary ---
Author Organization [employer] Address [address] [facility] 7 [place] [address] Care Team Providers Care Salesperson Recreational Vehicles Name Role Phone Carlo Santana MD Primary Care Provider +1- [phone] Reason for Visit * Reason Onset Date Comments Medication Question 12/01/2022 Encounter Details Date Type Department Care Team ([facility] st Contact Info) Description 12/01/2022 Telephone [facility] MEDICINE [address] [place] [address] Carlo Santana MD [address] [facility] [address] [place], [place] [phone] Medication Question Social History Tobacco Use Types [...] * Telephone Encounter - Braden Cool - 12/01/2022 10:33 AM EDT Tc from pt requesting to speak a RN or PCP in regards to script for lidocaine (Xylocaine) 5 % ointment, states would like an increase in grams. Please contact at [phone] documented in this encounter Plan of Treatment Upcoming Encounters Date Type Department Care Team ([facility] Contact Info) Description 05/31/2024 11:00 AM EDT Clinical Support [facility] MED & PEDS [address] [place] [address] 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 RN [address] [place] [address] documented as of this encounter Visit Diagnoses Not on filedocumented in this encounter Additional Health Concerns Assessment Noted Time PHQ-9 Depression Total Score: 3 06/04/19 23 3:42 PM EDT documented as of this encounter Care Teams Salesperson Recreational Vehicles Relationship Specialty Start Date End Date Carlo Santana MD [address] [place] [address] PCP - General Internal Medicine 12/28/17 documented as of this encounter
--- OUTSIDE RECORDS SUMMARY | 2024-04-09 13:00 | XMS_ITS | Encounter Summary ---
Author Organization [employer] Address [address] [facility] 7 [place] [address] Care Team Providers Care Fan Runner Name Role Phone Carlo Santana MD Primary Care Provider +1- [phone] Reason for Visit * Reason Onset Date Comments Med Refill 11/25/2022 Encounter Details Date Type Department Care Team (Late st Contact Info) Description 11/25/2022 Telephone [facility] MEDICINE [address] [place] [address] Carlo Santana MD [address] [place], [place] [phone] Med Refill Social History Tobacco Use Types [...] * Telephone Encounter - Braden Cool - 11/25/2022 9:14 AM EDT Tc from pt requesting a refill for oxyCODONE-acetaminophen (Percocet) 5-325 MG tablet documented in this encounter Plan of Treatment Upcoming Encounters Date Type Department Care Team ([facility] st Contact Info) Description 05/31/2024 11:00 AM EDT Clinical Support [facility] MED & PEDS [address] [place] [address] 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 RN [address] [place] [address] documented as of this encounter Visit Diagnoses Not on filedocumented in this encounter Additional Health Concerns Assessment Noted Time PHQ-9 Depression Total Score: 3 06/04/19 23 3:42 PM EDT documented as of this encounter Care Teams Fan Runner Relationship Specialty Start Date End Date Carlo Santana MD [address] [place] [address] PCP - General Internal Medicine 12/28/17 documented as of this encounter
--- OUTSIDE RECORDS SUMMARY | 2024-04-09 13:00 | XMS_ITS | Encounter Summary ---
Author Organization [employer] Address [address] [facility] 7 [place] [address] Care Team Providers Care Architectural Technologist Name Role Phone Carlo Santana MD Primary Care Provider +1- [phone] Reason for Visit * Reason Onset Date Comments Prior Authorization 12/27/2023 Encounter Details Date Type Department Care Team ([facility] st Contact Info) Description 12/27/2023 Telephone [facility] MEDICINE [address] [place] [address] Carlo Santana MD [address] [place] [address] Prior Authorization Social History Tobacco Use Types [...] Telephone Encounter - Rand Savage RN - 12/28/2023 10:57 AM EDT PA was initiated and sent to for approval. Pending decision. Notes were sent to [facility]. * Telephone Encounter - Braden Cool - 12/27/2023 8:12 AM EDT Tc from pt stating script for clonazePAM (KlonoPIN) 1 MG tablet requires a PA. documented in this encounter Plan of Treatment Upcoming Encounters Date Type Department Care Team (Late st Contact Info) Description 05/31/2024 11:00 AM EDT Clinical Support [facility] MED & PEDS 505 [facility] [place] [address] 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, HUGO [address] [place] [address] documented as of this encounter Visit Diagnoses Not on filedocumented in this encounter Additional Health Concerns Assessment Noted Time PHQ-9 Depression Total Score: 3 06/04/19 23 3:42 PM EDT documented as of this encounter Care Teams Architectural Technologist Relationship Specialty Start Date End Date Carlo Santana MD [address] [place] [address] PCP - General Internal Medicine 12/28/17 documented as of this encounter
--- OUTSIDE RECORDS SUMMARY | 2024-04-09 13:00 | XMS_ITS | Encounter Summary ---
Author Organization [employer] Address 75 [facility] 7 [place] [address] Care Team Providers Care Charge Authorizer Name Role Phone Carlo Santana MD Primary Care Provider +1- [phone] Reason for Visit * Reason Onset Date Comments triage 08/10/2022 Encounter Details Date Type Department Care Team (Late st Contact Info) Description 08/10/2022 Telephone [facility] MEDICINE [address] [place] [address] Carlo Santana MD [address] [place], [place] [phone] triage Social History Tobacco Use Types Packs/Day Years [...] suspected to have Coronavirus/COVID-19? No / Unsure 08/05/2022 3:30 PM EDT documented as of this encounter Miscellaneous Notes * Telephone Encounter - Ashley Romaine - 08/10/2022 4:05 PM EDT Symptom: Medication Reaction Outcome: Schedule an urgent appointment (within 1 hour) or talk to a nurse or provider soon Reason: Caller denied all higher acuity questions The caller accepted this outcome documented in this encounter Plan of Treatment Upcoming Encounters Date Type Department Care Team (Late st Contact Info) Description 05/31/2024 11:00 AM EDT Clinical Support [facility] MED & PEDS [address] [place] [address] 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 RN 505 [place] [address] documented as of this encounter Visit Diagnoses Not on filedocumented in this encounter Additional Health Concerns Assessment Noted Time PHQ-9 Depression Total Score: 3 06/04/19 23 3:42 PM EDT documented as of this encounter Care Teams Charge Authorizer Relationship Specialty Start Date End Date Carlo Santana MD 505 [place] [address] PCP - General Internal Medicine 12/28/17 documented as of this encounter
--- OUTSIDE RECORDS SUMMARY | 2024-04-09 13:00 | XMS_ITS | Encounter Summary ---
Author Organization [id number] Address 75 [facility] 7 [place] [address] Care Team Providers Care Light Rail Signal Technician Name Role Phone Carlo Santana MD Primary Care Provider +1- [phone] Encounter Details Date Type Department Care Team (Late st Contact Info) Description 08/05/2023 Telephone [facility] MEDICINE 230 [place] [address] Carlo Santana MD [address] [facility] [address] [place], [place] [phone] Social History Tobacco Use Types Packs/Day Years [...] Upcoming Encounters Date Type Department Care Team ([facility] st Contact Info) Description 05/31/2024 11:00 AM EDT Clinical Support [facility] MED & PEDS 505 [place] [address] 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, RN 505 [place] [address] documented as of this encounter Visit Diagnoses Not on filedocumented in this encounter Additional Health Concerns Assessment Noted Time PHQ-9 Depression Total Score: 3 06/04/19 23 3:42 PM EDT documented as of this encounter Care Teams Light Rail Signal Technician Relationship Specialty Start Date End Date Carlo Santana MD 505 [place] [address] PCP - General Internal Medicine 12/28/17 documented as of this encounter
--- OUTSIDE RECORDS SUMMARY | 2024-04-09 13:00 | XMS_ITS | Encounter Summary ---
Author Organization [employer] Address 75 [facility] 7 [place] [address] Care Team Providers Care Stereoplotter Operator Name Role Phone Carlo Santana MD Primary Care Provider +1- [phone] Reason for Visit * Reason Onset Date Comments r/s SANTHOSH ARIAS 08/17/2022 Encounter Details Date Type Department Care Team (Late st Contact Info) Description 08/17/2022 Telephone [facility] MEDICINE 230 [place] [address] Carlo Santana MD 505 [place], [place] [phone] r/s SANTHOSH RN Social History Tobacco Use Types Packs/Day Years [...] suspected to have Coronavirus/COVID-19? No / Unsure 09/10/2022 10:30 AM EDT documented as of this encounter Miscellaneous Notes * Telephone Encounter - Braden Cool - 08/17/2022 11:47 AM EDT Tc from pt requesting to r/s UNIT REACTOR OPERATOR RN appt scheduled for 08/17/22 @ 10am Please contact at [phone] documented in this encounter Plan of Treatment Upcoming Encounters Date Type Department Care Team (Late st Contact Info) Description 05/31/2024 11:00 AM EDT Clinical Support [facility] CHC MED & PEDS 505 [place] [address] 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, RN 505 [place] [address] documented as of this encounter Visit Diagnoses Not on filedocumented in this encounter Additional Health Concerns Assessment Noted Time PHQ-9 Depression Total Score: 3 06/04/19 23 3:42 PM EDT documented as of this encounter Care Teams Stereoplotter Operator Relationship Specialty Start Date End Date Carlo Santana MD [address] [place] [address] PCP - General Internal Medicine 12/28/17 documented as of this encounter
--- OUTSIDE RECORDS SUMMARY | 2024-04-09 13:00 | XMS_ITS | Encounter Summary ---
Author Organization [employer] Address 75 [facility] 7 [place] [address] Care Team Providers Care Bundler Seasonal Greenery Name Role Phone Carlo Santana MD Primary Care Provider +1- [phone] Reason for Visit * Reason Onset Date Comments Referral 07/25/2023 Encounter Details Date Type Department Care Team (Late st Contact Info) Description 07/25/2023 Telephone [facility] MEDICINE [address] [place] [address] Carlo Santana MD [address] [facility] [address] [place], [place] [phone] Referral Social History Tobacco Use Types Packs/Day Years [...] Telephone Encounter - Wing Romeo RN - 07/29/2023 11:46 AM EDT Please advise, tc to pt in regards to moving pain management to [facility] in [place]. Pt stated she called the [place] office and it didn't go well. States she felt like shewasn't getting good treatment there. Stated message for new referral suggestion would be sent to PCP and advised that it would be up to the provider and the referral wait time could be lengthy. Pt verbalized understanding and agreement with plan. * Telephone Encounter - Ashley Gavin - 07/29/2023 8:12 AM EDT Tc from pt requesting to speak with a nurse in regards to message above. States will be moving forward with switching locations. Please contact pt at [phone] * Telephone Encounter - Rand Savage RN - 07/28/2023 2:55 PM EDT Returned call to pt regarding message below. Pt stated she did not say another referral to Urology she said pain management. Pt is currently seen Pain management in [place] and has tried two different doctors. The first one told her her pain was in her head, and was very rude and dismissive. The socond doctor, she stated was no well prepared for her visit and not aware of what she has tried and not tried. I advised pt that if she decides to go with a different location, the wait times for EDGING CATCHER appts can be lengthy. Pt advised if maybe she can try to resolve issues directly with this office so there won't be a lapse in care. Pt states she will call [facility] and speak to their client service and consulting manager andsee if maybe she can try another provider. Pt advised to call their office and based on response they give her she can think about it and decide and speak with PCP next on appt. Pt agrees with plan. Will send to PCP as FYI and if pt does decide she will wants to switch [place] * Telephone Encounter - Quan Mena - 07/25/2023 3:01 PM EDT Tc from pt calling in regards to urology referral, stating she's not satisfied with care and would like to change location. Pt is requesting to be referred to [facility] instead pt provided location [address] [facility]. If nay questions you can contact pt at [phone]. documented in this encounter Plan of Treatment Upcoming Encounters Date Type Department Care Team (Late st Contact Info) Description 05/31/2024 11:00 AM EDT Clinical Support [facility] CHC MED & PEDS 505 [place] [address] 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 RN 505 [place] [address] documented as of this encounter Visit Diagnoses Not on filedocumented in this encounter Additional Health Concerns Assessment Noted Time PHQ-9 Depression Total Score: 3 06/04/19 23 3:42 PM EDT documented as of this encounter Care Teams Bundler Seasonal Greenery Relationship Specialty Start Date End Date Carlo Santana MD 505 [place] [address] PCP - General Internal Medicine 12/28/17 documented as of this encounter
--- OUTSIDE RECORDS SUMMARY | 2024-04-09 13:00 | XMS_ITS | Encounter Summary ---
Author Organization [employer] Address 75 [facility] 7 [place] [address] Care Team Providers Care Box Toe Stitcher Name Role Phone Carlo Santana MD Primary Care Provider +1- [phone] Reason for Visit * Reason Onset Date Comments Med Refill 01/17/2023 Encounter Details Date Type Department Care Team ([facility] st Contact Info) Description 01/17/2023 Telephone [facility] MEDICINE [address] [place] [address] Carlo Santana MD [address] [place], [place] [phone] Med Refill Social History Tobacco Use Types [...] * Telephone Encounter - Braden Cool - 01/17/2023 9:24 AM EST Tc from pt requesting a refill for celecoxib (CeleBREX) 200 MG capsule & Hydroxyzine HCL 25 mg however financial underwriter does not script on med list, Please contact at [phone] documented in this encounter Plan of Treatment Upcoming Encounters Date Type Department Care Team ([facility] st Contact Info) Description 05/31/2024 11:00 AM EDT Clinical Support [facility] MED & PEDS 505 [place] [address] 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 RN 505 [place] [address] documented as of this encounter Visit Diagnoses Not on filedocumented in this encounter Additional Health Concerns Assessment Noted Time PHQ-9 Depression Total Score: 3 06/04/19 23 3:42 PM EDT documented as of this encounter Care Teams Box Toe Stitcher Relationship Specialty Start Date End Date Carlo Santana MD 505 [place] [address] PCP - General Internal Medicine 12/28/17 documented as of this encounter
--- OUTSIDE RECORDS SUMMARY | 2024-04-09 13:00 | XMS_ITS | Encounter Summary ---
Author Organization [employer] Address [address] [place] [address] 7 [place] [address] Care Team Providers Care Drone Pilot Name Role Phone Carlo Santana MD Primary Care Provider +1- [phone] Encounter Details Date Type Department Care Team ([facility] st Contact Info) Description 01/19/2023 Orders Only [facility] CHC MED & PEDS [address] [place], [place] [phone] Carlo Santana MD 505 [place], [place] [phone] Neck pain (Primary Dx); Chronic left-sided low back pain [...] 11:00 AM EDT Clinical Support [facility] MED & PEDS [address] [place] [address] 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 RN 505 [place] [address] documented as of this encounter Visit Diagnoses Diagnosis Neck pain- Primary Cervicalgia Chronic left-sided low back pain with left-sided sciatica documented in this encounter Additional Health Concerns Assessment Noted Time PHQ-9 Depression Total Score: 3 06/04/19 23 3:42 PM EDT documented as of this encounter Care Teams Drone Pilot Relationship Specialty Start Date End Date Carlo Santana MD 505 [place] [address] PCP - General Internal Medicine 12/28/17 documented as of this encounter
--- OUTSIDE RECORDS SUMMARY | 2024-04-09 13:00 | XMS_ITS | Encounter Summary ---
Author Organization [employer] Address [address] [place] [address] 7 [place] [address] Care Team Providers Care Extrusion Supervisor Name Role Phone Carlo Santana MD Primary Care Provider +1- [phone] Encounter Details Date Type Department Care Team ([facility] st Contact Info) Description 08/17/2023 Orders Only [facility] CHC MED & PEDS [address] [place], [place] [phone] Carlo Santana MD 505 [place], [place] [phone] Bipolar affective disorder, remission status unspecified (CMS/HCC) (Primary Dx) Social History Tobacco Use Types [...] Upcoming Encounters Date Type Department Care Team ([facility] st Contact Info) Description 05/31/2024 11:00 AM EDT Clinical Support [facility] MED & PEDS [address] [place] [address] 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 RN 505 [place] [address] documented as of this encounter Visit Diagnoses Diagnosis Bipolar affective disorder, remission status unspecified (CMS/[facility])- Primary documented in this encounter Additional Health Concerns Assessment Noted Time PHQ-9 Depression Total Score: 3 06/04/19 23 3:42 PM EDT documented as of this encounter Care Teams Extrusion Supervisor Relationship Specialty Start Date End Date Carlo Santana MD 505 [place] [address] PCP - General Internal Medicine 12/28/17 documented as of this encounter
--- OUTSIDE RECORDS SUMMARY | 2024-04-09 13:01 | XMS_ITS | Encounter Summary ---
Author Organization [employer] Address 75 [facility] 7 [place] [address] Care Team Providers Care Duty Manager Name Role Phone Carlo Santana MD Primary Care Provider +1- [phone] Reason for Visit * Reason Onset Date Comments Med Refill 09/22/2023 Encounter Details Date Type Department Care Team (Late st Contact Info) Description 09/22/[address] [facility] MEDICINE [address] [place] [address] Carlo Santana MD 505 [place], [place] [phone] Med Refill Social History Tobacco Use Types [...] Telephone Encounter - Rand Savage RN - 09/26/2023 3:48 PM EDT Noted. Pt is scheduled with PCP this Tuesday. * Telephone Encounter - Roberta Reid LPN - 09/22/2023 12:42 PM EDT Triage call returned to patient at listed number. CHC identified to patient and patient confirmed . Patient reports that incoming message was incorrectly sent to Triage. Denies urinary symptoms atthis time. The reason for the call is related to fecal incontinence. Happens at night mostly I have to fart and I shit myself . Patient reports that she was previously on medication but it didn't work . Patient denies specific foods as triggers to incontinence. Patient is reporting that she wants a televisit to discuss multiple medical concerns with PCP. No additional information obtained. ( please see 09/19 note post office visit with [facility]). Patient is angry at baseline and correcting any question as asked by Triage. Unable to discuss home care recommendations at time of call. Team tasked to update PCP and follow with patient. Phone number as listed is accurate. Multiple (2) protocols were used on this call. Disposition for Call: Discuss with PCP and Callback by Nurse within 1 Hour Protocol Used: Difficult Call (Adult) Protocol-Based Disposition: Discuss with PCP and Callback by Nurse within 1 Hour Video visit not offered Positive Triage Question: * Angry or rude caller and doesn't respond to 5 minutes of triager counseling and sick adult (or caller) * All higher-acuity triage questions were negative Care Advice Discussed: * Reasons To Call Back - You have other questions or concerns - You become worse Protocol Used: Diarrhea (Adult) Protocol-Based Disposition: See in Office or Video Visit within 3 Days Override (Final) Disposition: Discuss with PCP and Callback by Nurse Today Override Reason: Caller refused suggested disposition Override Notes: Patient wants Televisit with PCP only for medical concerns Video visit not offered Positive Triage Question: * Patient wants to be seen * All higher-acuity triage questions were negative * Telephone Encounter - Braden Cool - 09/22/2023 12:17 PM EDT Symptom: Urine Symptoms Outcome: Schedule a same-day appointment or talk to a nurse or provider today Reason: Frequent urination - unable to hold urine. The caller accepted this outcome Please contact at [phone] documented in this encounter Plan of Treatment Upcoming Encounters Date Type Department Care Team (Late st Contact Info) Description 05/31/2024 11:00 AM EDT Clinical Support [facility] MED & PEDS [address] [place] [address] 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, HUGO 505 [place], [place] [phone] documented as of this encounter Visit Diagnoses Not on filedocumented in this encounter Additional Health Concerns Assessment Noted Time PHQ-9 Depression Total Score: 3 06/04/19 23 3:42 PM EDT documented as of this encounter Care Teams Duty Manager Relationship Specialty Start Date End Date Carlo Santana MD [address] [place] [address] PCP - General Internal Medicine 12/28/17 documented as of this encounter
--- OUTSIDE RECORDS SUMMARY | 2024-04-09 13:01 | XMS_ITS | Encounter Summary ---
Author Organization [employer] Address 75 [facility] 7 [place] [address] Care Team Providers Care Billing And Insurance Coordinator Name Role Phone Carlo Santana MD Primary Care Provider +1- [phone] Reason for Visit * Reason Onset Date Comments Med Refill 01/14/2023 Encounter Details Date Type Department Care Team ([facility] st Contact Info) Description 01/14/2023 Telephone [facility] MEDICINE [address] [place] [address] Carlo Santana MD [address] [facility] [address] [place], [place] [phone] Med Refill Social History Tobacco Use Types [...] Telephone Encounter - Angel Luis Oreilly - 01/14/2023 10:04 AM EDT Tc from patient requesting medication refill for oxyCODONE-acetaminophen (Percocet) 5-325 MG tablet. documented in this encounter Plan of Treatment Upcoming Encounters Date Type Department Care Team (Late st Contact Info) Description 05/31/2024 11:00 AM EDT Clinical Support [facility] CHC MED & PEDS 505 [place] [address] 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, HUGO 505 [place] [address] documented as of this encounter Visit Diagnoses Not on filedocumented in this encounter Additional Health Concerns Assessment Noted Time PHQ-9 Depression Total Score: 3 06/04/19 23 3:42 PM EDT documented as of this encounter Care Teams Billing And Insurance Coordinator Relationship Specialty Start Date End Date Carlo Santana MD 505 [place] [address] PCP - General Internal Medicine 12/28/17 documented as of this encounter
--- OUTSIDE RECORDS SUMMARY | 2024-04-09 13:01 | XMS_ITS | Encounter Summary ---
Author Organization [employer] Address 75 [facility] 7 [place] [address] Care Team Providers Care Advisor Advocate Angel Co Founder Name Role Phone Carlo Santana MD Primary Care Provider +1- [phone] Reason for Visit * Reason Onset Date Comments Referral 07/26/2022 Encounter Details Date Type Department Care Team (Late st Contact Info) Description 07/26/2022 Telephone [facility] MEDICINE [address] [place] [address] Carlo Santana MD 505 [place], [place] [phone] Referral Social History Tobacco Use Types Packs/Day [...] suspected to have Coronavirus/COVID-19? No / Unsure 07/27/2022 1:29 PM EDT documented as of this encounter Miscellaneous Notes * Telephone Encounter - Michael Martins - 07/26/2022 10:01 AM EDT Tc from pt requesting a call back regarding pain management referral stated was not satisfied. Please contact pt at [phone] documented in this encounter Plan of Treatment Upcoming Encounters Date Type Department Care Team (Late st Contact Info) Description 05/31/2024 11:00 AM EDT Clinical Support [facility] MED & PEDS 505 [place] [address] 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, RN 505 [place] [address] documented as of this encounter Visit Diagnoses Not on filedocumented in this encounter Additional Health Concerns Assessment Noted Time PHQ-9 Depression Total Score: 3 06/04/19 23 3:42 PM EDT documented as of this encounter Care Teams Advisor Advocate Angel Co Founder Relationship Specialty Start Date End Date Carlo Santana MD 505 [place] [address] PCP - General Internal Medicine 12/28/17 documented as of this encounter
--- OUTSIDE RECORDS SUMMARY | 2024-04-09 13:01 | XMS_ITS | Encounter Summary ---
Author Organization [employer] Address 75 [facility] 7 [place] [address] Care Team Providers Care Personal Financial Advisor Name Role Phone Carlo Santana MD Primary Care Provider +1- [phone] Reason for Visit * Reason Onset Date Comments Med Refill 02/28/2024 Medication Question 02/28/2024 Encounter Details Date Type Department Care Team ([facility] st Contact Info) Description 02/28/2024 Telephone [facility] MEDICINE 230 [place] [address] Carlo Santana MD [address] [facility] [address] [place], [place] [phone] Med Refill; Medication Question Social History Tobacco Use Types [...] encounter Miscellaneous Notes * Telephone Encounter - Grabiel Taylor - 02/28/2024 8:07 AM EST TC from pt stating that She needs a PA for med oxyCODONE-acetaminophen (Percocet) 7.5-325 MG tablet If any questions contact pt at [phone] documented in this encounter Plan of Treatment Upcoming Encounters Date Type Department Care Team ([facility] st Contact Info) Description 05/31/2024 11:00 AM EDT Clinical Support [facility] MED & PEDS 505 [place] [address] 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 RN 505 [place] [address] documented as of this encounter Visit Diagnoses Not on filedocumented in this encounter Additional Health Concerns Assessment Noted Time PHQ-9 Depression Total Score: 15 024 11:50 AM EST documented as of this encounter Care Teams Personal Financial Advisor Relationship Specialty Start Date End Date Carlo Santana MD 505 [place] [address] PCP - General Internal Medicine 12/28/17 documented as of this encounter
--- OUTSIDE RECORDS SUMMARY | 2024-04-09 13:01 | XMS_ITS | Encounter Summary ---
Author Organization [employer] [facility] Address [address] [place] [address] 7 [place] [address] Care Team Providers Care Tool Clerk Name Role Phone Carlo Santana MD Primary Care Provider +1- [phone] Encounter Details Date Type Department Care Team (Latest Contact Info) Description 10/14/2021 Abstract [facility] CONVERSIONS Dental, Provider, DDS Social History Tobacco Use Types Packs/Day Years Used Date Smoking Tobacco: Never Assessed Comments Unknown Sex and Gender Information Value [...] Description 05/31/2024 11:00 AM EDT Clinical Support [facility] CHC MED & PEDS 505 [place] [address] 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, HUGO 505 [place] [address] documented as of this encounter Visit Diagnoses Not on filedocumented in this encounter Care Teams Tool Clerk Relationship Specialty Start Date End Date Carlo Santana MD 505 [place] [address] PCP - General Internal Medicine 12/28/17 documented as of this encounter
--- OUTSIDE RECORDS SUMMARY | 2024-04-09 13:01 | XMS_ITS | Encounter Summary ---
Author Organization [employer] Address 75 [facility] 7 [place] [address] Care Team Providers Care Plate Take Out Worker Name Role Phone Carlo Santana MD Primary Care Provider +1- [phone] Reason for Visit * Reason Onset Date Comments Appointment Request 09/20/2023 Encounter Details Date Type Department Care Team ([facility] st Contact Info) Description 09/20/2023 Telephone [facility] MEDICINE 230 [place] [address] Carlo Santana MD [address] [facility] [address] [place], [place] [phone] Appointment Request Social History Tobacco Use Types Packs/Day [...] * Telephone Encounter - Hien Jarquin - 09/20/2023 9:15 AM EDT Tc from pt requesting a tele health visit with PCP. Stated just a follow up, no further details provided. documented in this encounter Plan of Treatment Upcoming Encounters Date Type Department Care Team (Late st Contact Info) Description 05/31/2024 11:00 AM EDT Clinical Support [facility] MED & PEDS 505 [place] [address] 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 RN 505 [place] [address] documented as of this encounter Visit Diagnoses Not on filedocumented in this encounter Additional Health Concerns Assessment Noted Time PHQ-9 Depression Total Score: 3 06/04/19 23 3:42 PM EDT documented as of this encounter Care Teams Plate Take Out Worker Relationship Specialty Start Date End Date Carlo Santana MD 505 [place] [address] PCP - General Internal Medicine 12/28/17 documented as of this encounter
--- OUTSIDE RECORDS SUMMARY | 2024-04-09 13:01 | XMS_ITS | Encounter Summary ---
Author Organization [employer] Address [address] [facility] 7 [place] [address] Care Team Providers Care Security Supervisor Name Role Phone Cralo Santana MD Primary Care Provider [phone]- [phone] Reason for Visit * Reason Onset Date Comments Med Refill 09/17/2023 Encounter Details Date Type Department Care Team (Late st Contact Info) Description 09/17/2023 Refill [facility] MEDICINE [address] [place] [address] Carlo Santana MD [address] [place], [place] [phone] Chronic left-sided low back pain with left-sided [...] & [facility] MED [facility]EDS [address] [place] [address] 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, HUGO [address] [place] [address] documented as of this encounter Visit Diagnoses Diagnosis Chronic left-sided low back pain with left-sided sciatica documented in this encounter Additional Health Concerns Assessment Noted Time PHQ-9 Depression Total Score: 3 06/04/19 23 3:42 PM EDT documented as of this encounter Care Teams Security Supervisor Relationship Specialty Start Date End Date Carlo Santana MD [address] [place] [address] PCP - General Internal Medicine 12/28/17 documented as of this encounter
--- OUTSIDE RECORDS SUMMARY | 2024-04-09 13:01 | XMS_ITS | Encounter Summary ---
Author Organization [employer] Address [address] [place] [address] 7 [place] [address] Care Team Providers Care Chief Operator Synthesis Name Role Phone Carlo Santana MD Primary Care Provider +1- [phone] Reason for Visit * Reason Onset Date Comments Medication Question 01/25/2023 Encounter Details Date Type Department Care Team ([facility] st Contact Info) Description 01/25/2023 Telephone [facility] CHC MED & PEDS [address] [place] [address] Carlo Santana MD [address] [place] [address] Medication Question Social History Tobacco Use Types [...] Telephone Encounter - Rand Savage RN - 01/28/2023 9:09 AM EST TC X2 to pt regarding message below. Unable to LVM as VM is not set up. * Telephone Encounter - Jaylen Thibodeaux - 01/27/2023 3:56 PM EST Tc from pt returning phone call Please contact pt at [phone] * Telephone Encounter - Rand Savage RN - 01/27/2023 3:29 PM EST TC X1 to pt regarding message below. No answer and VM is not set up. Pt to return call PRN. * Telephone Encounter - Rand Savage RN - 01/26/2023 9:29 AM EST Pt was last seen on 01/13/23. Pt is stating trulicity is not helping her loose weight. Please adviseif appt should be scheduled to discuss different options. Please advise. * Telephone Encounter - Jaylen Thibodeaux - 01/25/2023 2:33 PM EST Tc from pt requesting a call from a nurse to call in regards to medication being used to lose weight: dulaglutide (Trulicity) 1.5 MG/0.5ML solution pen-injector. Pt states medication is no longer working states not losing any weight. Please contact pt at [phone] documented in this encounter Plan of Treatment Upcoming Encounters Date Type Department Care Team (Late st Contact Info) Description 05/31/2024 11:00 AM EDT Clinical Support [facility] MED & PEDS [address] [place] [address] 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, RN [address] [place] [address] documented as of this encounter Visit Diagnoses Diagnosis Low back pain radiating down leg documented in this encounter Additional Health Concerns Assessment Noted Time PHQ-9 Depression Total Score: 3 06/04/19 23 3:42 PM EDT documented as of this encounter Care Teams Chief Operator Synthesis Relationship Specialty Start Date End Date Carlo Santana MD [address] [place] [address] PCP - General Internal Medicine 12/28/17 documented as of this encounter
--- OUTSIDE RECORDS SUMMARY | 2024-04-09 13:01 | XMS_ITS | Encounter Summary ---
Author Organization [employer] [facility] Address [address] [place] [address] 7 [place] [address] Care Team Providers Care Unemployment Benefits Claims Taker Name Role Phone Carlo Santana MD Primary Care Provider +1- [phone] Encounter Details Date Type Department Care Team (Latest Contact Info) Description 04/18/2018 Abstract [facility] CONVERSIONS Dental, Provider, DDS Social History Tobacco [...] Description 05/31/2024 11:00 AM EDT Clinical Support [facility] CHC MED & PEDS [address] [place] [address] 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, HUGO [address] [place] [address] documented as of this encounter Visit Diagnoses Not on filedocumented in this encounter Care Teams Unemployment Benefits Claims Taker Relationship Specialty Start Date End Date Carlo Santana MD [address] [place] [address] PCP - General Internal Medicine 12/28/17 documented as of this encounter
--- OUTSIDE RECORDS SUMMARY | 2024-04-09 13:01 | XMS_ITS | Encounter Summary ---
Author Organization [employer] Address [address] [facility] 7 [place] [address] Care Team Providers Care Travel Money Advisor Name Role Phone Carlo Santana MD Primary Care Provider +1- [phone] Reason for Visit * Reason Onset Date Comments Call Back Request 02/28/2024 Encounter Details Date Type Department Care Team ([facility] st Contact Info) Description 02/28/2024 Telephone [facility] MEDICINE [address] [place] [address] Carlo Santana MD [address] [facility] [place] [address] Call Back Request Social History Tobacco Use [...] * Telephone Encounter - Quan Mena - 02/28/2024 4:08 PM EST Tc from pt requesting call back regarding upcoming appt on 03/12. documented in this encounter Plan of Treatment Upcoming Encounters Date Type Department Care Team ([facility] st Contact Info) Description 05/31/2024 11:00 AM EDT Clinical Support [facility] MED & PEDS [address] [place] [address] 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 RN [address] [place] [address] documented as of this encounter Visit Diagnoses Not on filedocumented in this encounter Additional Health Concerns Assessment Noted Time PHQ-9 Depression Total Score: 15 024 11:50 AM EST documented as of this encounter Care Teams Travel Money Advisor Relationship Specialty Start Date End Date Carlo Santana MD [address] [place] [address] PCP - General Internal Medicine 12/28/17 documented as of this encounter
--- OUTSIDE RECORDS SUMMARY | 2024-04-09 13:01 | XMS_ITS | Encounter Summary ---
Author Organization [employer] Address [address] [place] [address] 7 [place] [address] Care Team Providers Care Welt Sole Layer Name Role Phone Carlo Santana MD Primary Care Provider +1- [phone] Reason for Visit * Reason Onset Date Comments Results 02/14/2023 Encounter Details Date Type Department Care Team ([facility] st Contact Info) Description 02/14/2023 Telephone [facility] CHC MED & PEDS [address] [place] [address] Carlo Santana MD [address] [place] [address] Results Social History Tobacco Use Types Packs/Day [...] Telephone Encounter - Rand Savage RN - 02/18/2023 3:38 PM EST Returned call to pt and informed of normal XR of R hip. Pt verbalized understanding and agrees withplan. * Telephone Encounter - Ashley Gavin - 02/14/2023 9:01 AM EST Tc from pt requesting results on xray to hip on 02/09. Please contact pt at [phone] documented in this encounter Plan of Treatment Upcoming Encounters Date Type Department Care Team (Late st Contact Info) Description 05/31/2024 11:00 AM EDT Clinical Support [facility] MED & PEDS [address] [place] [address] 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, HUGO [address] [place] [address] documented as of this encounter Visit Diagnoses Not on filedocumented in this encounter Additional Health Concerns Assessment Noted Time PHQ-9 Depression Total Score: 3 06/04/19 23 3:42 PM EDT documented as of this encounter Care Teams Welt Sole Layer Relationship Specialty Start Date End Date Carlo Santana MD [address] [place] [address] PCP - General Internal Medicine 12/28/17 documented as of this encounter
--- OUTSIDE RECORDS SUMMARY | 2024-04-09 13:01 | XMS_ITS | Encounter Summary ---
Author Organization [employer] Address [address] [facility] 7 [place] [address] Care Team Providers Care Insurance Compliance Analyst Name Role Phone Carlo Santana MD Primary Care Provider +1- [phone] Reason for Visit * Reason Onset Date Comments Med Refill 08/10/2022 Encounter Details Date Type Department Care Team (Late st Contact Info) Description 08/10/2022 Telephone [facility] MEDICINE [address] [place] [address] Carlo Santana MD [address] [place], [place] [phone] Med Refill Social History Tobacco Use Types [...] * Telephone Encounter - Braden Cool - 08/10/2022 8:50 AM EDT Tc from pt requesting refill for HYDROcodone-acetaminophen ([place]) 5-325 MG tablet documented in this encounter Plan of Treatment Upcoming Encounters Date Type Department Care Team (Late st Contact Info) Description 05/31/2024 11:00 AM EDT Clinical Support [facility] MED & PEDS [address] [place] [address] 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, HUGO [address] [place] [address] documented as of this encounter Visit Diagnoses Not on filedocumented in this encounter Additional Health Concerns Assessment Noted Time PHQ-9 Depression Total Score: 3 06/04/19 23 3:42 PM EDT documented as of this encounter Care Teams Insurance Compliance Analyst Relationship Specialty Start Date End Date Carlo Santana MD [address] [place] [address] PCP - General Internal Medicine 12/28/17 documented as of this encounter
--- OUTSIDE RECORDS SUMMARY | 2024-04-09 13:01 | XMS_ITS | Clinical Summary ---
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 reaction Medications * This document contains information received from the source organization and may not represent a complete record from that organization. naloxone (Narcan) 4 mg/0.1 mL nasal spray Administer 0.1 mL into affected nostril(s). [place] 0.1 milliliter by intranasal route in 1 nostril may repeat dose every 2-3 minutes as needed alternating nostrils with each dose 11/12/19 22 Active spironolactone (Aldactone) 50 MG tablet Take 1 tablet by mouth 1 (one) time each day. Active amLODIPine (Norvasc) 5 MG tablet TAKE 1 TABLET BY MOUTH EVERY MORNING 90 tablet 2 07/01/19 24 Active cetirizine (ZyrTEC) 10 MG tabletIndicati ons:Seasonal allergies TAKE 1 TABLET BY MOUTH EVERY DAY IN THE MORNING 90 tablet 3 07/07/19 24 Active oxybutynin XL (Ditropan-XL) 5 MG 24 hr tablet TAKE 1 TABLET (5 MG) BY MOUTH IN THE MORNING . DO NOT CRUSH, CHEW, OR SPLIT 30 tablet 2 10/11/19 24 Active methocarbamol (Robaxin) 500 MG tabletIndicati ons:Muscle spasm Take 1 tablet (500 mg) by mouth 4 times daily. 30 tablet 11/07/19 24 Active topiramate 50 MG tabletIndicati ons:New daily persistent headache TAKE 1 TABLET BY MOUTH TWICE A DAY 60 tablet 11 12/02/19 24 Active ziprasidone (Geodon) 80 MG capsuleIndicat ions:Bipolar affective disorder, remission status unspecified (CMS/HCC) TAKE 1 CAPSULE BY MOUTH IN THE EVENING. 60 capsule 1 12/05/19 24 Active ARIPiprazole (Abilify) 2 MG tablet Take 2 mg by mouth Once per day. 09/08/19 24 Active solifenacin (VESIcare) 10 MG tablet Take 10 mg by mouth at bedtime. 10/19/19 24 Active valACYclovir (Valtrex) 500 MG tablet Take 500 mg by mouth Once per day. 04/11/19 24 Active gabapentin (Neurontin) 600 MG tablet TAKE 1 TABLET BY MOUTH 3 TIMES A DAY FOR 30 DAYS 10/17/19 24 Active DULoxetine (Cymbalta) [address] capsule TAKE 1 CAPSULE BY MOUTH TWICE A DAY. DO NOT CRUSH OR CHEW. 60 capsule 2 12/20/19 24 Active hydrOXYzine pamoate (Vistaril) 50 MG capsuleIndicat ions:Bipolar affective disorder, remission status unspecified (CMS/HCC) TAKE 1 CAPSULE BY MOUTH EVERY 8 HOURS IF NEEDED FOR ITCHING 90 capsule 3 12/28/19 24 Active ondansetron (Zofran) 4 MG tablet TAKE 2 TABLETS BY MOUTH EVERY 8 HOURS NEEDED FOR NAUSEA OR VOMITING 30 tablet 3 02/07/20 24 Active D3-1000 25 MCG (1000 UT) capsule Take 1 capsule (25 mcg) by mouth Once per day. 90 capsule 02/20/20 24 Active lidocaine (Lidoderm) 5 % patchIndicatio ns:Chronic left-sided low back pain with left-sided sciatica APPLY 1 PATCH TOPICALLY EVERY DAY REMOVE AND DISCARD PATCH WITHIN 12 HOURS OR DIRECTED BY MD. 30 patch 1 02/20/20 24 Active Nutritional Supplements (Boost High Protein) liquidIndicati ons:Hypoprotei nemia (CMS/HCC) DRINK 1 CAN TWICE DAILY 5688 mL 11 03/16/19 25 Active oxyCODONE-acet aminophen (Percocet) 7.5-325 MG tabletIndicati ons:Chronic left-sided low back pain with left-sided sciatica Take 1 tablet by mouth every 6 (six) hours if needed for severe pain. Do not start before March 23, 2024. 112 tablet 03/23/19 25 Active celecoxib (CeleBREX) 200 MG capsuleIndicat ions:Chronic left shoulder pain,Muscle spasm TAKE 1 CAPSULE BY MOUTH IN THE MORNING AND AT BEDTIME NEEDED FOR MODERATE PAIN 60 capsule 03/22/19 25 Active lidocaine (Xylocaine) 5 % ointmentIndica tions:Chronic left shoulder pain,Rib pain,Chronic left-sided low back pain with left-sided sciatica,Neck pain APPLY 5 GRAMS TO AFFECTED AREA 4 TIMES A DAY NEEDED FOR MILD PAIN 240 g 03/22/19 25 Active oxyCODONE (Roxicodone) 10 MG immediate release tabletIndicati ons:Chronic left-sided low back pain with left-sided sciatica Take 1 tablet (10 mg) by mouth every 8 (eight) hours if needed for severe pain for up to 28 days. 84 tablet 03/23/19 25 025 Active acetaminophen (Tylenol) 325 MG tabletIndicati ons:Chronic left-sided low back pain with left-sided sciatica Take 2 tablets (650 mg) by mouth every 6 (six) hours if needed for mild pain. 84 tablet 03/23/19 25 Active amitriptyline (Elavil) 10 MG tabletIndicati ons:Diarrhea, unspecified type Take 1 tablet (10 mg) by mouth at bedtime. 30 tablet 04/09/19 25 025 Active clonazePAM (KlonoPIN) 1 MG tabletIndicati ons:VALENTINA (generalized anxiety disorder) Take 1 tablet (1 mg) by mouth if needed each day for anxiety. 30 tablet 04/09/19 25 Active lidocaine (Xylocaine) 5 % ointmentIndica tions:Rib pain,Chronic left-sided low back pain with left-sided sciatica,Neck pain APPLY 5 GRAMS TO AFFECTED AREA 4 TIMES A DAY NEEDED FOR MILD PAIN 240 g 01/26/20 24 025 Discontinued(R eorder (will not trigger notification to Pharmacy)) Nutritional Supplements (Ensure High Protein) liquidIndicati ons:Hypoprotei nemia (CMS/HCC) DRINK 1 CAN TWICE DAILY 237 mL 01/31/20 24 025 Discontinued clonazePAM (KlonoPIN) 1 MG tabletIndicati ons:VALENTINA (generalized anxiety disorder) Take 1 tablet (1 mg) by mouth if needed each day for anxiety. 30 tablet 02/08/20 24 024 Discontinued(R eorder (will not trigger notification to Pharmacy)) oxyCODONE-acet aminophen (Percocet) 7.5-325 MG tabletIndicati ons:Chronic left-sided low back pain with left-sided sciatica Take 1 tablet by mouth every 6 (six) hours if needed for severe pain. Do not start before February 28, 2024. 112 tablet 02/28/20 24 025 Discontinued(R eorder (will not trigger notification to Pharmacy)) celecoxib (CeleBREX) 200 MG capsuleIndicat ions:Muscle spasm TAKE 1 CAPSULE BY MOUTH IN THE MORNING AND AT BEDTIME NEEDED FOR MODERATE PAIN 60 capsule 02/28/20 24 025 Discontinued(R eorder (will not trigger notification to Pharmacy)) clonazePAM (KlonoPIN) 1 MG tabletIndicati ons:VALENTINA (generalized anxiety disorder) Take 1 tablet (1 mg) by mouth if needed each day for anxiety. 30 tablet 03/12/20 24 025 Discontinued(R eorder (will not trigger notification to Pharmacy)) Active Problems Problem Noted Date Diagnosed Date Lumbar radiculopathy 03/22/2024 Secondary female infertility 12/09/2023 Depressive disorder 12/09/2023 Hidradenitis suppurativa 12/09/2023 Preop cardiovascular exam 12/09/2023 Assessment & Plan (12/09/2023 9:58 AM EDT): Patient was seen for pre-operative evaluation. Patient reports no symptoms of CP at rest or with exertion, dyspnea at rest or with exertion, PND, LE edema, claudication, or palpitations. Patient has no hx of ischemic heart disease, CHF, CVD, diabetes, recent anticoagulant or antithrombotic use, person or family hx of coagulopathy. Patient reports no history of stress test, cardiac cath or coronary revascularization. Patients without any known cardiac risk factors (will undergo low risk surgery, no hx of ischemic heart disease, no h/o CVD, no h/o CHF, & no insulin dependent diabetes mellitus or known renal failure). According to the RCRI, this number of risk factors stratifies the patient to Class O, which carries a 0.4% risk of major CV complications. In this case, CV Risk is low for the intended procedure. VALENTINA (generalized anxiety disorder) 08/01/2023 Assessment & Plan (08/01/2023 3:27 PM EDT): During IBH Consult Peri presenting with excessive worry/anxiety, difficulty controlling worry, restless/keyed up/On edge, easily fatigued, difficulty concentrating/Mind going blank , irritability, and sleep disturbance difficulty falling asleep and Fear of abandonment, Pattern of unstable and intense interpersonal relationships, Impulsivity, Feelings of emptiness, and Intense anger; for a period of 18+ mo, for all symptoms in the context of family issues. Peri reports having a complicated sleep routine making it difficult to manage sxs. Was connected with services for the last 15 years. Now engaged with [facility] for OP, and waiting to be connected with psych provider. Severe anxiety is interfering with daily activities and affecting her interpersonal relationships. PLAN: (check all that apply) Continue with current services (defined as services in the past 12 months) Behavioral Health Integration Plan Patient Self Plan Patient to utilize skills provided in intervention , Patient to reach out to [facility] team as needed, Patient to engage in OP therapy , and Patient to reach out to [facility] as needed. Pt reports being connected with [facility] for individual therapy. She completed third OP session and was added to wait list for psych provider within [facility]. Mixed stress and urge urinary incontinence 11/02 Assessment & Plan (11/02/2022 3:34 PM EDT): Patient with history of stress incontinence and urgency, ? bladder prolapse during pelvic exam. Will refer to urologist for further evaluation. Will send urine for culture. Will start oxybutinin. Diarrhea 11/02/2022 Assessment & Plan (11/02/2022 2:11 PM EDT): Patient with watery diarrhea present for x4 weeks. Normal tone upon examination with internal Hemorid. Will send KUB and labs. and start on imodium. Very poor mobility 08/26/2022 Borderline personality disorder 07/06/2022 Insomnia 07/06/2022 Bipolar disorder 07/06/2022 Assessment & Plan (08/01/2023 3:27 PM EDT): During IBH Consult Peri presenting with excessive worry/anxiety, difficulty controlling worry, restless/keyed up/On edge, easily fatigued, difficulty concentrating/Mind going blank , irritability, and sleep disturbance difficulty falling asleep and Fear of abandonment, Pattern of unstable and intense interpersonal relationships, Impulsivity, Feelings of emptiness, and Intense anger; for a period of 18+ mo, for all symptoms in the context of family issues. Peri reports having a complicated sleep routine making it difficult to manage sxs. Was connected with MH services for the last 15 years. Now engaged with [facility] for OP, and waiting to be connected with psych provider. Severe anxiety is interfering with daily activities and affecting her interpersonal relationships. PLAN: (check all that apply) Continue with current services (defined as services in the past 12 months) Behavioral Health Integration Plan Patient Self Plan Patient to utilize skills provided in intervention , Patient to reach out to [facility] team as needed, Patient to engage in OP therapy , and Patient to reach out to [facility] as needed. Pt reports being connected with [facility] for individual therapy. She completed third OP session and was added to wait list for psych provider within [facility]. Obesity with body mass index 30 or greater 07/06 PCOS (polycystic ovarian syndrome) 07/06/2022 Posttraumatic stress disorder 07/06/2022 Acute pain of both shoulders 06/03/2022 Assessment & Plan (06/04/2022 9:23 AM EDT): No recent traumatic event, ordered xray, told to rest, avoid heavy lifting, apply lidocaine and cold pads Chronic right-sided low back pain with right-jamal ed sciatica 04/26/2022 Assessment & Plan (04/26/2022 5:23 PM EST): No warning sign/symptoms, chronic pain, she never visited ortho, denied recent injury. Told to rest, apply ice/heat pads, will provide lidocaine patches and will order meloxicam to be taken PRN, patient not interested in PT, she has tried it before without improvement of symptoms, also will place order for MRI. Heartburn 11/20/2015 Acne 05/21/2013 Encounters Date Type Department Care Team Description 04/09/2024 11:00 AM EST Office Visit [facility] [address] [place] [address] Carlo Santana MD Diarrhea, unspecified type (Primary Dx); Muscle spasm; Lumbar radiculopathy; VALENTINA (generalized anxiety disorder) 04/09/2024 Refill [facility] [address] [place] [address] Carlo Santana MD Diarrhea, unspecified type; Bipolar affective disorder, remission status unspecified ([facility]); Diarrhea, unspecified type; VALENTINA (generalized anxiety disorder) 04/03/[address] [address] Carlo Santana MD 04/03/[address] [address] Carlo Santana MD Nurse Triage 03/23/2024 Telephone [facility] [address] [place] [address] Carlo Santana MD Prior Authorization 03/23/[address] [address] Carlo Santana MD Medication Question 03/22/2024 2:30 PM EST Office Visit [facility] [address] [place] [address] Carlo Santana MD Chronic left shoulder pain (Primary Dx); Muscle spasm; Rib pain; Chronic left-sided low back pain with left-sided sciatica; Neck pain; Lumbar radiculopathy 03/22/2024 Travel 03/21/2024 Refill [facility] [address] [place] [address] Carlo Santana MD Chronic left-sided low back pain with left-sided sciatica 03/21/[address] [address] Carlo Santana MD Nurse Triage 03/21/2024 Refill [facility] [address] [place] [address] Carlo Santana MD Chronic left-sided low back pain with left-sided sciatica (Primary Dx); Transaminitis 03/15/2024 Refill [facility] [address] [place] [address] Carlo Santana MD Hypoproteinemia (CMS/HCC) 03/15/2024 Telephone [facility] [address] [place] [address] Carlo Santana MD Results 03/12/2024 9:30 AM EST Telemedicine [facility] [address] [place] [address] 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 RN Chronic left-sided low back pain with left-sided sciatica 03/12/2024 Refill [facility] [address] [place] [address] Carlo Santana MD VALENTINA (generalized anxiety disorder) 03/12/2024 Travel 03/08/2024 Orders Only GENERIC EXTERNAL DATA DEPARTMENT Provider, Generic External Data 03/05/2024 Orders Only [facility] [address] [place] [address] Carlo Santana MD 02/29/2024 Orders Only GENERIC EXTERNAL DATA DEPARTMENT Provider, Generic External Data 02/28/[address] [address] Carlo Santana MD Call Back Request 02/28/[address] [address] Carlo Santana MD Med Refill; Medication Question 02/28/2024 Refill [facility] [address] [place] [address] Carlo Santana MD Muscle spasm 02/27/[address] [address] Carlo Santana MD callback requested 02/23/2024 Orders Only [facility] [address] [place] [address] Alpa Avila MD Borderline personality disorder (CMS/HCC) (Primary Dx); Posttraumatic stress disorder; VALENTINA (generalized anxiety disorder); Depressive disorder 02/22/[address] [address] Carlo Santana MD Referral 02/20/2024 Refill [facility] [address] [place] [address] Carlo Santana MD Chronic left-sided low back pain with left-sided sciatica 02/20/[address] [address] Carlo Santana MD Med Refill 02/20/[address] [address] Carlo Santana MD Med Refill 02/20/2024 Refill [facility] [address] [place] [address] Carlo Santana MD Chronic left-sided low back pain with left-sided sciatica 02/08/2024 Orders Only [facility] [address] [place] [address] Carlo Santana MD VALENTINA (generalized anxiety disorder) (Primary Dx) 02/07/2024 Telephone [facility] [address] [place] [address] Jaquelin Mason, typing teacher Question 02/07/[address] [address] Carlo Santana MD Prior Authorization 02/07/2024 Refill [facility] [address] [place] [address] Carlo Santana MD 02/07/[address] [address] Carlo Santana MD Med Refill 01/31/2024 Refill [facility] [address] [place] [address] Carlo Santana MD Hypoproteinemia (CMS/HCC) 01/31/2024 Telephone [facility] [address] [place] [address] Carlo Santana MD Medication Question 01/31/2024 Telephone [facility] [address] [place] [address] Carlo Santana MD PA 01/30/2024 Telephone [facility] [address] [place] [address] Carlo Santana MD Results 01/26/2024 10:45 AM EST Office Visit [facility] [address] [place] [address] Carlo Santana MD Annual physical exam (Primary Dx); Diarrhea, unspecified type; Encounter for screening mammogram for malignant neoplasm of breast; Rib pain; Need for vaccination; Chronic left-sided low back pain with left-sided sciatica; Chronic left-sided low back pain with left-sided sciatica; Neck pain 01/26/2024 Refill [facility] [address] [place] [address] Carlo Santana MD Muscle spasm 01/26/2024 Travel 01/25/2024 Refill [facility] [address] [place] [address] Carlo Santana MD Chronic left-sided low back pain with left-sided sciatica 01/25/2024 Telephone [facility] [address] [place] [address] Carlo Santana MD Med Refill 01/25/2024 Refill [facility] [address] [place] [address] Carlo Santana MD Chronic left-sided low back pain with left-sided sciatica; Neck pain; Chronic left-sided low back pain with left-sided sciatica 01/19/2024 Patient Outreach [facility] [address] [place] [address] Carlo Santana MD Pre-visit Planning (SDOH negative, Tobacco screening negative. ) 01/18/2024 Telephone [facility] [address] [place] [address] Carlo Santana MD Nurse Triage from Last 3 Months Immunizations Name Administration Dates Next Due Influenza Whole 11/13/2008 Influenza injectable quadriv alent IIV4 with preservative 12/26/2018,12/30/2017 Influenza injectable quadrivalent preservative f ree 01/17/2023,01/07/2021 Influenza, IIV3, injectable 05/21/2013, 0 Influenza, seasonal, injectable, preservative fr ee 01/26/2024 Moderna Covid-19 Vaccine 12+ 08/10/2020 PPD Test 11/24/2015 Pfizer Covid-19 Vaccine 12+ 01/26/2024 Td (adult), unspecified 11/13/2008 Tdap 01/18/2018,05/21/2013 Social History Tobacco Use Types Packs/Day Years Used Date Smoking Tobacco: Never Passive Smoke Exposure: Never Smokeless Tobacco: Never Tobacco Cessation:Counseling Given: Not Answered Alcohol Use Standard Drinks/Week Comments Never 0 [...] Orientation Straight 01/11/2022 10 :34 AM EDT Last Filed Vital Signs Vital Sign Reading Time Taken Comments Blood Pressure 116/80 04/09/2024 10:37 AM EST Pulse 78 04/09/2024 10:37 AM EST Temperature 36.9 ??C (98.4 ??F) 04/09/2024 10:[address] Respiratory Rate 20 04/09/2024 10:37 AM EST Oxygen Saturation 98% 04/09/2024 10:37 AM EST Inhaled Oxygen Concentration - - Weight 63.7 kg (140 lb 6.4 oz) 04/09/2024 10:37 AM EST Height 160 cm (5' 3 ) 04/09/2024 10:37 AM EST Body Mass Index 24.87 04/09/2024 10:37 AM EST Plan of Treatment Upcoming Encounters Date Type Department Care Team (Late st Contact Info) Description 05/31/2024 11:00 AM EDT Clinical Support [facility] [address] [place] [address] 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, HUGO [address] [place] [address] Health Maintenance Due Date Last Done Comments Family Planning (PISQ) 1997 Hepatitis B Vaccines (1 of 3 - 19+ 3-dose series) 2001 Dental X-Ray: Full Mouth 04/19/2021 04/18/2018 Dental Oral Exam 04/17/2022 10/14/2021, 04/18/2018 Dental Prophylaxis 04/17/2022 10/14/2021, 1 03/20/2018, 05/24/2018 Mammogram 2022 Dental X-Ray: Bitewings 10/15/2022 10/15/19 22, 05/16/2018, 04/18/2018 Depression Monitoring (PHQ-9) 07/25/2024 01/26/2024, 01/26/2024 SDOH Screening 01/18/2025 01/19/2024 Alcohol/Substance Use Screening 01/25/2025 01/26/2024 Depression Screening 01/25/2025 01/26/2024, 01/26/20 24 Tobacco Screening 03/22/2025 03/22/2024 Cervical Cancer Screening 02/11/2026 HPV/Cotest 02/11/2026 02/11/2021 Pap Smear 02/11/2026 02/11/2021 DTaP/Tdap/Td Vaccines (3 - Td or Tdap) 01/19/2028 01/18/2018, 05/21/2013, 11/13/2008 Lipid Panel 08/12/2028 08/13/2023, 08/23/2022 Zoster Vaccines (1 of 2) 2032 RSV Patients and Patients Aged 60 years or older (1 - 1-dose 75+ series) 2057 COVID-19 Vaccine Completed 01/26/2024, 07/2020, 08/10/2020, Additional history exists HIV Screening Completed 01/26/2024 Hepatitis C Screening Completed 01/26/2024 Influenza Vaccine Completed 01/26/2024, , 01/07/2021, Additional history exists HIB Vaccines Aged Out No longer eligi ble based on patient's age to complete this topic HPV Vaccines Aged Out No longer eligi ble based on patient's age to complete this topic Hepatitis A Vaccines Aged Out No long er eligible based on patient's age to complete this topic IPV Vaccines Aged Out No longer eligi ble based on patient's age to complete this topic Meningococcal Vaccine Aged Out No marlo regine eligible based on patient's age to complete this topic Pneumococcal Vaccine: Pediatrics (0 to 5 Years) and At-Risk Patients (6 to 64 Years) Aged Out No longer eligible based on patient's age to complete this topic RSV under 20 months Aged Out No longe r eligible based on patient's age to complete this topic Rotavirus Vaccines Aged Out No longer eligible based on patient's age to complete this topic Procedures Procedure Name Priority Date/Time Associated Diagnosis Comments CT ENTEROGRAPHY ABDOMEN PELVIS W CONTRAST Routine 04/05/2024 10:51 AM EST CALPROTECTIN, STOOL Routine 03/08/2024 7 :47 AM EST PANCREATIC ELASTASE, FECAL Routine 03/08/2024 7:47 AM EST VITAMIN D 25-OH (D2 AND D3) Routine 02/29/2024 7:44 AM EST VITAMIN B12/FOLATE, SERUM PANEL Routine 02/29/2024 7:44 AM EST XR RIBS 2 VIEWS LEFT Routine 02/02/2024 9:18 AM EST Rib pain HEPATITIS B SURFACE ANTIGEN, EIA Routine 01/26/2024 11:58 AM EST Diarrhea, unspecified type HEPATITIS B SURFACE ANTIBODY, QUALITATIVE Routine 01/26/2024 11:58 AM EST Diarrhea, unspecified type HEPATITIS C AB W/REFL TO HCV RNA, QN, PCR Routine 01/26/2024 11:58 AM EST Diarrhea, unspecified type HIV 1/2 ANTIGEN/ANTIBODY, FOURTH GENERATION W/RFL Routine 01/26/2024 11:58 AM EST Diarrhea, unspecified type CALPROTECTIN, STOOL Routine 01/19/2024 3 :19 AM EST Diarrhea, unspecified type LIPID PANEL, STANDARD Routine 08/13/2023 7:23 AM EDT PROPHYLAXIS - ADULT Routine 10/14/2021 1 2:00 AM EDT BITEWINGS - 4 RADIOGRAPHIC IMAGES Routine 10/14/2021 12:00 AM EDT PERIODIC ORAL EVALUATION - ESTABLISHED PATIENT Routine 10/14/2021 12:00 AM EDT HM PAP/HPV Routine 02/11/2021 DIAGNOSTIC - DIAGNOSTIC IMAGING - INTRAORAL - COMPREHENSIVE SERIES OF RADIOGRAPHIC IMAGES Routine 04/18/2018 12:00 AM EST from Last 3 Months or Most Recently Relevant to Health Maintenance Results * CT Enterography Abdomen Pelvis w/ Contrast (04/05/2024 10:51 AM EST) Anatomical Region Laterality Modality Computed Tomogra phy 04/05/2024 10:5 1 AM EST Narrative 04/05/2024 11:37 AM EST ? [facility] ?[address] ?[place] [address] ? CT Scan Report ? Signed ? Patient: DuPeri Vera ?MR#: [id number] ?? [id number] ? : 1980 ?Acct:[id number] ? Age/Sex: 43 / F ?ADM Date: 04/05/24 ? Loc: HO.CT ? Attending Dr: Cristel ARIAS ? Ordering Physician: Cristel Rendon ?? Date of Service: 04/05/24 ?? Procedure(s): CT enterography ?? Accession Number(s): [id number] ? cc: Carlo Santana MD; Cristel Rendon ? Report Number: ?? [id number]: Total DLP = ??295.00 mGy-cm ?? EXAMINATION: [...] signed by Freeman Scanlon MD in OV> ?04/05/241133 ? DD/ 1051 ? TD/TT: 04/05/24 1108 ? Third Grade Teacher: ? Procedure Note Donotuseinterpreter, Image - 04/05/[address] [address] [address] Scan Report Signed Patient: Peri Sandy MMR#: [id number] : 1980Acct:[id number] Age/Sex: 43 / FADM Date: 04/05/24 Loc: HO.CT Attending Dr: Cristel Rendon [facility] Ordering Physician: Cristel Rendon [facility] Date of Service: 04/05/24 Procedure(s): CT enterography Accession Number(s): [id number] cc: Carlo Santana MD; Cristel Rendon [facility] Report Number: [id number]: Total DLP = 295.00 mGy-cm EXAMINATION: CT [...] Freeman Scanlon MD 04/05/2024 11:34 AM EST Dictated By: Freeman Scanlon MD Signed By: <Electronically signed by Freeman Scanlon MD in OV> 04/05/24 1134 DD/ 1051 TD/TT: 04/05/24 1108 Third Grade Teacher: [facility] External Provider IMG CT PROCEDURES Final Result * (ABNORMAL) Calprotectin, Stool (03/08/2024 7:47 AM EST) Only the most recent of2 resultswithin the time period is included. Calprotectin,Fecal 368(A) mcg/g [facility] Comment:Reference Range: <50 Normal 50-120 Borderline >120 ElevatedCalprotectin in Crohn's disease and ulcerative colitis canbe five to several thousand times above the referencepopulation (50 mcg/g or less). Levels are usually 50 mcg/gor less in healthy patients and with irritable bowelsyndrome. Repeat testing in 4-6 weeks is suggested forborderline values.THIS TEST WAS PERFORMED AT:[employer] [id number] [place] [address]NHHJUCHERYL MOLINA MD,PHD,BATSHEVA 03/08/2024 7:47 AM EST 03/08/2024 9:18 AM EST Generic External Data Provider LAB BODY FLUIDS A ND STOOLS ORDERABLES Final Result Performing Organization Address [facility] Phone Number [facility] [address] [place] [address] [phone] * Pancreatic elastase, fecal (03/08/2024 7:47 AM EST) Pancreatic Elastase 1 501 >200 mcg/g [facility] Comment:E-1 mcg/g feces Inte rpretation <100 Severe exocrine pancreatic insufficiency 100-200 Mild to moderate exocrine pancreatic insufficiency >200 NormalTHIS TEST WAS PERFORMED AT:[employer] [id number] [place] [address]ZTJBHCHERYL MOLINA MD,PHD,BATSHEVA 03/08/2024 7:47 AM EST 03/08/2024 9:18 AM EST Generic External Data Provider LAB BODY FLUIDS A ND STOOLS ORDERABLES Final Result Performing Organization Address [facility] Phone Number [facility] [address] [place] [phone] * (ABNORMAL) VITAMIN D 25-OH (D2 AND D3) (02/29/2024 7:44 AM EST) Vitamin D, 25-OH, D2 <4 ng/mL [facility] Comment:This test was develo ped and its analytical performancecharacteristics have been determined by [employer] [place], [place]. It hasnot been cleared or approved by the U.S. Food and DrugAdministration. This assay has been validated pursuantto the CLIA regulations and is used for clinicalpurposes.THIS TEST WAS PERFORMED AT:[employer] [id number] [place] [address]YADAKGPOK KOENIG MD,PHD Vitamin D, 25-OH, D3 24 ng/mL [facility] Comment:This test was develo ped and its analytical performancecharacteristics have been determined by [employer] [place], [place]. It hasnot been cleared or approved by the U.S. Food and DrugAdministration. This assay has been validated pursuantto the CLIA regulations and is used for clinicalpurposes. Vitamin D, 25-OH, Total 24(A) 30 - 100 ng/mL [facility] Comment:Vitamin D, 25-Hydrox y reports concentrations of twocommon forms, 25-OHD2 and 25-OHD3. 25-OHD3 indicatesboth endogenous production and supplementation.25-OHD2 is an indicator of exogenous sources such asdiet or supplementation. Therapy is based onmeasurement of Total 25-OHD, with levels <20 ng/mLindicative of Vitamin D deficiency, while levelsbetween 20 ng/mL and 30 ng/mL suggest insufficiency.Optimal levels are > or = 30 ng/mL.For additional information, please refer tohttp://education.[employer]/faq/ZAS072(This link is being provided for informational/educational purposes only.) 02/29/2024 7:44 AM EST 02/29/2024 7:44 AM EST us Generic External Data Provider LAB BLOOD ORDERAB LES Final Result [facility] [address] [place] [address] [phone] * Vitamin B12 (Cobalamin) and Folate Panel, Serum (02/29/2024 7:44 AM EST) Vitamin B12 643 200 - 900 pg/mL [facility] Comment:NORMAL 200-900 PG/ML INDETERMINATE 160-199 PG/ML DEFICIENT < 160 PG/ML Folate 6.6 > or = 4.0 ng/mL [facility] Comment:Reference Values:> o r = 4.0 ng/mL< 4.0 ng/mL suggests folate deficiency Methotrexate, aminopterin and folinic acid(leucovorin) are chemotherapeutic agents whose molecularstructures are similar to folate; therefore, the Architectfolate assay cannot be used for patients using these drugs. 02/29/2024 7:44 AM EST 02/29/2024 7:44 AM EST Generic External Data Provider LAB BLOOD ORDERAB LES Final Result Performing Organization Address [facility] de Phone Number [facility] [address] [place] [address] [phone] * XR Ribs 2 Views Left (02/02/2024 9:18 AM EST) Anatomical Region Laterality Modality Rib, Abdomen Left Radiographic Yi ging 02/02/2024 9:18 AM EST Narrative 02/22/2024 5:15 PM EST ? [facility] ?[address] ?[place] [address] ?XRay Report ? Signed ? Patient: Du,Peri Vera ?MR#: [id number] ?? [id number] ? : 1980 ?Acct:[id number] ? Age/Sex: 43 / F ?ADM Date: 11/21/24 ? Loc: HO.XRAY ? Attending Dr: Carlo Santana MD ? Ordering Physician: Carlo Santana MD ?? Date of Service: 02/02/24 ?? Procedure(s): XR ribs LT 2V ?? Accession Number(s): [id number] ? cc: Carlo Santana MD ? EXAMINATION: ?? XR RIBS, LEFT ? CLINICAL INFORMATION: ?? tenderness and depression of the left lower rib cage ? COMPARISON: ?? Chest radiograph 04/23/2021 ? TECHNIQUE: ?? 3 views of the left ribs were obtained. ? FINDINGS: ?? The visualized lungs are clear. No consolidation, pneumothorax, or ?? pleural effusion. The cardiomediastinal silhouette and visualized ?? pulmonary vasculature are normal. ? Osseous structures are unremarkable. Ribs are intact. No fractures are ?? identified. ? XR/XR ribs LT 2V ?? IMPRESSION: ?? No acute osseous abnormalities. ? Electronically signed by: ??Alexy Lai MD ??02/22/2024 05:12 PM EST ?? RP ? Dictated By: ?Alexy Lai MD ? Signed By: ?<Electronically signed by Alexy Lai MD in OV> ? 02/22/24 1712 ? DD/ 0918 ? TD/TT: 02/02/24 0936 ? Third Grade Teacher: SS ? Procedure Note Wilfredo, Image - 02/22/2024 [place] [address] XRay Report Signed Patient: Peri Sandy [facility]#: [id number] : 1980Acct:[id number] Age/Sex: 43 / FADM Date: 02/02/24 Loc: [facility] Attending Dr: Carlo Santana MD Ordering Physician: Carlo Santana MD Date of Service: 02/02/24 Procedure(s): XR ribs LT 2V Accession Number(s): [id number] cc: Carlo Santana MD EXAMINATION: XR RIBS, LEFT CLINICAL INFORMATION: tenderness and depression of the left lower rib cage COMPARISON: Chest radiograph 04/23/2021 TECHNIQUE: 3 views of the left ribs were obtained. FINDINGS: The visualized lungs are clear. No consolidation, pneumothorax, or pleural effusion. The cardiomediastinal silhouette and visualized pulmonary vasculature are normal. Osseous structures are unremarkable. Ribs are intact. No fractures are identified. XR/XR ribs LT 2V IMPRESSION: No acute osseous abnormalities. Electronically signed by: Alexy Lai MD 02/22/2024 05:12 PM EST Dictated By: Alexy Lai MD Signed By: <Electronically signed by Alexy Lai MD in OV> 02/22/24 1712 DD/ TD/TT: 02/02/24 0936 Third Grade Teacher: SS us Carlo Santana MD IMG XR PROCEDURES Final Res ult * Hepatitis C Antibody with Reflex to HCV, RNA, Quantitative, Real-Time PCR (01/26/2024 11:58 AM EST) Hepatitis C Antibody Nonreactive Nonreactive [facility] Comment:Antibodies to HCV no t detected; does not exclude early acuteHCV infection. Blood Venous blood specimen / Unknown 01/26/2024 11:58 AM EST 01/26/2024 2:10 PM EST us Carlo Santana MD LAB BLOOD ORDERABLES Final Result Performing Organization Address [facility] Co de Phone Number [facility] [address] [place] [phone] * Hepatitis B surface antigen, EIA (01/26/2024 11:58 AM EST) Hepatitis B Surface Ag Negative Negative [facility] Blood Venous blood specimen / Unknown 01/26/2024 11:58 AM EST 01/26/2024 2:10 PM EST us Carlo Santana MD LAB BLOOD ORDERABLES Final Result Performing Organization Address [facility] Co de Phone Number [facility] [address] [place] [phone] * HIV-1/2 Antigen and Antibodies, Fourth Generation, with Reflexes (01/26/2024 11:58 AM EST) Pathologist [facility] HIV AB/AG Nonreactive Nonreactive [facility] Comment:HIV-1 p24 Ag and/or HIV-1/HIV-2 Ab not detected.A test result that is nonreactive does not exclude thepossibility of exposure to or infection with HIV-1 and/orHIV-2. Nonreactive results in this assay for individualswith prior exposure to HIV-1 and/or HIV-2 may be due toantigen and antibody levels that are below the limit ofdetection of this assay.The Entrecard HIV Ag/Ab Combo assay result andsupplemental assay results should be interpreted inconjunction with the patient's clinical presentation,history and other laboratory results. If the results areinconsistent with clinical evidence, additional testing issuggested to confirm the result. Blood Venous blood specimen / Unknown 01/26/2024 11:58 AM EST 01/26/2024 2:10 PM EST us Carlo Santana MD LAB BLOOD ORDERABLES Final Result Performing Organization Address [facility]/ZIP Co de Phone Number [facility] [address] [place] [phone] * Hepatitis B Surface Antibody, Qualitative (01/26/2024 11:58 AM EST) Pathologist [facility] ~Hepatitis B Surface Antibody REACTIVE Nonreactive [facility] Comment:REACTIVE: > 11.99 mI U/mL Blood Venous blood specimen / Unknown 01/26/2024 11:58 AM EST 01/26/2024 2:10 PM EST Carlo Santana MD LAB BLOOD ORDERABLES Final Result Performing Organization Address [facility] Co de Phone Number [facility] [address] [place] [phone] * Lipid Panel, Standard (08/13/2023 7:23 AM EDT) [facility] Triglycerides 111 <150 mg/dL [facility] Comment:Desirable Triglyceri de: less than 150 mg/dLBorderline High Triglyceride 150-199 mg/dLHigh Triglyceride: 200-499 mg/dLVery High Triglyceride: greater than or equal to 5OO mg/dL Cholesterol 173 <200 mg/dL [facility] Comment:Desirable Cholestero l: less than 200 mg/dLBorderline High Cholesterol: 200-239 mg/dLHigh Cholesterol: greater than 239 mg/dL LDL Cholesterol Calculated 82 <100 mg/dL [facility] Comment:Desirable LDL: less than 100 mg/dLNear Optimal/Above Optimal LDL: 110- 129 mg/dLBorderline High LDL: 130-159 mg/dLHigh LDL: 160-189 mg/dLVery High LDL: greater than or equal to 190 mg/dL HDL Cholesterol 69 >40 mg/dL [facility] Comment:Desirable HDL: great er than 40 mg/dL Note: This HDL assay may give artificially low results in patients with liver disease. 08/13/2023 7:23 AM EDT 08/13/2023 7:23 AM EDT us Generic External Data Provider LAB BLOOD ORDERAB LES Final Result [facility] [address] [place] [phone] [phone] * Pap Smear (02/11/2021) Pap Negative for intraephithelial lesion or malignancy Negative for intraephithelial lesion or malignancy, Other HPV Undetected Undetected, Indeterminate, Quantitative, Not Detected us Historical Provider HEALTH MAINTENANCE Final Result from Last 3 Months or Most Recently Relevant to Health Maintenance [facility] [employer] [facility] STAND ADULT Care Teams Slip Cover Cutter Relationship Specialty Start Date End Date Carlo Santana MD [address] [place] [address] LEATHA Phillips [address] PCP - General Internal Medicine 12/28/17
--- OUTSIDE RECORDS SUMMARY | 2024-04-09 13:01 | XMS_ITS | Encounter Summary ---
Author Organization [employer] [facility] Address [address] [place] [address] 7 [place] [address] Care Team Providers Care Medical Lab Assistant Name Role Phone Carlo Santana MD Primary Care Provider [phone]- [phone] Encounter Details Date Type Department Care Team (Latest Contact Info) Description 01/18/2019 Abstract [facility] CONVERSIONS Dental, Provider, DDS Social [...] Description 05/31/2024 11:00 AM EDT Clinical Support [facility] CHC MED & PEDS [address] [place] [address] 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, HUGO [address] [place] [address] documented as of this encounter Visit Diagnoses Not on filedocumented in this encounter Care Teams Medical Lab Assistant Relationship Specialty Start Date End Date Carlo Santana MD [address] [place] [address] PCP - General Internal Medicine 12/28/17 documented as of this encounter
--- OUTSIDE RECORDS SUMMARY | 2024-04-09 13:01 | XMS_ITS | Encounter Summary ---
Author Organization [email or web address] Address [address] [facility] 7 [place] [address] Care Team Providers Care Network Professional Name Role Phone Carlo Santana MD Primary Care Provider [phone]- [phone] Reason for Visit * Reason Onset Date Comments Appointment Request 01/31/2023 Encounter Details Date Type Department Care Team ([facility] st Contact Info) Description 01/31/[address] [facility] MEDICINE [address] [place] [address] Carlo Santana MD [address] [facility] [address] [place], [place] [phone] Appointment Request Social History Tobacco Use Types [...] * Telephone Encounter - Braden Cool - 01/31/2023 8:33 AM EST Tc from pt requesting a OV appt with PCP, States would like to go over XRAY results. Please contact at [phone] documented in this encounter Plan of Treatment Upcoming Encounters Date Type Department Care Team ([facility] st Contact Info) Description 05/31/2024 11:00 AM EDT Clinical Support [facility] MED & PEDS [address] [place] [address] 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 RN [address] [place] [address] documented as of this encounter Visit Diagnoses Not on filedocumented in this encounter Additional Health Concerns Assessment Noted Time PHQ-9 Depression Total Score: 3 06/04/19 23 3:42 PM EDT documented as of this encounter Care Teams Network Professional Relationship Specialty Start Date End Date Carlo Santana MD [address] [place] [address] PCP - General Internal Medicine 12/28/17 documented as of this encounter
--- OUTSIDE RECORDS SUMMARY | 2024-04-09 13:01 | XMS_ITS | Encounter Summary ---
Author Organization [employer] Address [address] [facility] 7 [place] [address] Care Team Providers Care Printed Circuit Layout Taper Name Role Phone Carlo Santana MD Primary Care Provider +1- [phone] Reason for Visit * Reason Onset Date Comments Triage 08/10/2022 Encounter Details Date Type Department Care Team (Late st Contact Info) Description 08/10/2022 Telephone [facility] MEDICINE [address] [place] [address] Carlo Santana MD [address] [facility] [address] [place], [place] [phone] Triage Social History Tobacco Use Types Packs/Day [...] Telephone Encounter - Braden Cool - 08/10/2022 8:43 AM EDT Symptom: Medication Reaction Outcome: Schedule an urgent appointment (within 1 hour) or talk to a nurse or provider soon Reason: headache, diarrhea , ( trulicity 0.75 mg ) , pt is requesting alternative ( [employer]. ) The caller accepted this outcome Please contact at [phone] documented in this encounter Plan of Treatment Upcoming Encounters Date Type Department Care Team ([facility] st Contact Info) Description 05/31/2024 11:00 AM EDT Clinical Support [facility] MED & PEDS [address] [place] [address] 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, RN [address] [place] [address] documented as of this encounter Visit Diagnoses Not on filedocumented in this encounter Additional Health Concerns Assessment Noted Time PHQ-9 Depression Total Score: 3 06/04/19 23 3:42 PM EDT documented as of this encounter Care Teams [employer] Layout Taper Relationship Specialty Start Date End Date Carlo Santana MD [address] [place] [address] PCP - General Internal Medicine 12/28/17 documented as of this encounter
--- OUTSIDE RECORDS SUMMARY | 2024-04-09 13:01 | XMS_ITS | Encounter Summary ---
Author Organization [employer] Address [address] [facility] 7 [place] [address] Care Team Providers Care Plate Cutter Name Role Phone Carlo Santana MD Primary Care Provider +1- [phone] Reason for Visit * Reason Comments Med Refill Encounter Details Date Type Department Care Team ([facility] st Contact Info) Description 01/16/2023 Refill [facility] MEDICINE [address] [place] [address] Carlo Santana MD [address] [place], [place] [phone] Muscle spasm Social History Tobacco Use Types Packs/Day Years [...] 11:00 AM EDT Clinical Support [facility] MED & PEDS [address] [place] [address] 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 RN [address] [place] [address] documented as of this encounter Visit Diagnoses Diagnosis Muscle spasm Spasm of muscle documented in this encounter Additional Health Concerns Assessment Noted Time PHQ-9 Depression Total Score: 3 06/04/19 23 3:42 PM EDT documented as of this encounter Care Teams Plate Cutter Relationship Specialty Start Date End Date Carlo Santana MD [address] [place] [address] PCP - General Internal Medicine 12/28/17 documented as of this encounter
--- OUTSIDE RECORDS SUMMARY | 2024-04-09 13:02 | XMS_ITS | Encounter Summary ---
Author Organization [employer] Address [address] [facility] 7 [place] [address] Care Team Providers Care Ostomy Rn Name Role Phone Carlo Santana MD Primary Care Provider +1- [phone] Reason for Visit * Reason Onset Date Comments Med Refill 02/20/2024 Encounter Details Date Type Department Care Team ([facility] st Contact Info) Description 02/20/2024 Telephone [facility] MEDICINE [address] [place] [address] Carlo Santana MD [address] [place], [place] [phone] Med Refill Social History Tobacco Use Types [...] * Telephone Encounter - Grabiel Taylor - 02/20/2024 9:11 AM EST TC from pt requesting medication refill. Medications needing refill : D3-1000 25 MCG (1000 UT) capsule To be sent to: [facility]/pharmacy #[id number] LEATHA PHILLIPS - [id number] [facility] documented in this encounter Plan of Treatment Upcoming Encounters Date Type Department Care Team ([facility] Contact Info) Description 05/31/2024 11:00 AM EDT Clinical Support [facility] CH[facility] MED & PEDS [address] [place] [address] 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, HUGO [address] [place] [address] documented as of this encounter Visit Diagnoses Not on filedocumented in this encounter Additional Health Concerns Assessment Noted Time PHQ-9 Depression Total Score: 15 024 11:50 AM EST documented as of this encounter Care Teams Ostomy Rn Relationship Specialty Start Date End Date Carlo Santana MD [address] [facility] [place] [address] PCP - General Internal Medicine 12/28/17 documented as of this encounter
--- OUTSIDE RECORDS SUMMARY | 2024-04-09 13:02 | XMS_ITS | Encounter Summary ---
Author Organization [employer] Address [address] [place] [address] 7 [place] [address] Care Team Providers Care Dock Operator Name Role Phone Carlo Santana MD Primary Care Provider +1- [phone] Encounter Details Date Type Department Care Team ([facility] st Contact Info) Description 02/08/2024 Orders Only [facility] CHC MED & PEDS [address] [place], [place] [phone] Carlo Santana MD [address] [place], [place] [phone] [place] (generalized anxiety disorder) (Primary Dx) Social History Tobacco Use Types [...] Upcoming Encounters Date Type Department Care Team ([facility] st Contact Info) Description 05/31/2024 11:00 AM EDT Clinical Support [facility] MED & PEDS [address] [place] [address] Fraiba Gandhi, HUGO [address] [place] [address] documented as of this encounter Visit Diagnoses Diagnosis [place]ENT[place] (generalized anxiety disorder)- Primary Generalized anxiety disorder documented in this encounter Additional Health Concerns Assessment Noted Time PHQ-9 Depression Total Score: 15 024 11:50 AM EST documented as of this encounter Care Teams Dock Operator Relationship Specialty Start Date End Date Carlo Santana MD [address] [place] [address] PCP - General Internal Medicine 12/28/17 documented as of this encounter
--- OUTSIDE RECORDS SUMMARY | 2024-04-09 13:02 | XMS_ITS | Encounter Summary ---
Author Organization [employer] Address [address] [facility] 7 [place] [address] Care Team Providers Care Group Home Worker Name Role Phone Carlo Santana MD Primary Care Provider +1- [phone] Reason for Visit * Reason Onset Date Comments Med Refill 02/20/2024 Encounter Details Date Type Department Care Team ([facility] st Contact Info) Description 02/20/2024 Telephone [facility] MEDICINE [address] [place] [address] Carlo Santana MD [address] [place], [place] [phone] Med Refill Social History Tobacco Use Types [...] Telephone Encounter - Rand Savage RN - 02/20/2024 4:47 PM EST Disposable underpads order sent to [facility] and signed rx sent to scan pending decision. * Telephone Encounter - Grabiel Taylor - 02/20/2024 9:08 AM EST Tc from pt stating that the doctor stated that he would prescribe disposable bed pads. Pt would like for them to go to [facility]. If any question you can contact pt at [phone] documented in this encounter Plan of Treatment Upcoming Encounters Date Type Department Care Team ([facility] st Contact Info) Description 05/31/2024 11:00 AM EDT Clinical Support [facility] MED & PEDS [address] [place] [address] 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, RN [address] [place] [address] documented as of this encounter Visit Diagnoses Not on filedocumented in this encounter Additional Health Concerns Assessment Noted Time PHQ-9 Depression Total Score: 15 024 11:50 AM EST documented as of this encounter Care Teams Group Home Worker Relationship Specialty Start Date End Date Calro Santana MD [address] [place] [address] PCP - General Internal Medicine 12/28/17 documented as of this encounter
--- OUTSIDE RECORDS SUMMARY | 2024-04-09 13:02 | XMS_ITS | Encounter Summary ---
Author Organization [employer] Address [address] [place] [address] 7 [place] [address] Care Team Providers Care Tie Man Name Role Phone Carlo Santana MD Primary Care Provider +1- [phone] Reason for Visit * Reason Onset Date Comments Prior Authorization 09/14/2023 Encounter Details Date Type Department Care Team ([facility] st Contact Info) Description 09/14/2023 Telephone [facility] CHC MED & PEDS [address] [place] [address] Carlo Santana MD 505 [place] [address] Prior Authorization Social History Tobacco Use Types [...] Miscellaneous Notes * Telephone Encounter - Ashley Gavin - 09/14/2023 11:59 AM EDT Tc from pt states PA is needed for clonazePAM (KlonoPIN) 1 MG tablet documented in this encounter Plan of Treatment Upcoming Encounters Date Type Department Care Team (Late st Contact Info) Description 05/31/2024 11:00 AM EDT Clinical Support [facility] CHC MED & PEDS [address] [place] [address] 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, RN 505 [place] [address] documented as of this encounter Visit Diagnoses Diagnosis Chronic left-sided low back pain with left-sided sciatica documented in this encounter Additional Health Concerns Assessment Noted Time PHQ-9 Depression Total Score: 3 06/04/19 23 3:42 PM EDT documented as of this encounter Care Teams Tie Man Relationship Specialty Start Date End Date Carlo Santana MD [address] [place] [address] PCP - General Internal Medicine 12/28/17 documented as of this encounter
--- OUTSIDE RECORDS SUMMARY | 2024-04-09 13:03 | XMS_ITS | Encounter Summary ---
Author Organization [employer] Address [address] [place] [address] [place] [address] Care Team Providers Care Irrigation Equipment Remover Name Role Phone Carlo Santana MD Primary Care Provider +1- [phone] Reason for Visit * Reason Onset Date Comments Appointment Request 05/04/2022 Encounter Details Date Type Department Care Team ([facility] Contact Info) Description 05/04/2022 Telephone [facility] CHC MED & PEDS [address] [place] [address] Carlo Santana MD [address] [place] [address] Appointment Request Social History Tobacco Use Types [...] Miscellaneous Notes * Telephone Encounter - Angel Gavin RN - 05/04/2022 10:10 AM EST MRI was ordered on 04/26/22. Will forward to Dx specialist to f/u with the ordered MRI. Please contact pt with status. Thank you. * Telephone Encounter - Jaylen Thibodeaux - 05/04/2022 10:06 AM EST Tc from pt requesting to be contacted by provider. Pt states the reason why is because she is required to get an MRI done for the low back pain but [facility] advised to pt that she is not ableto make the appt , the provider has to make the appt for her. Please contact pt at [phone] documented in this encounter Plan of Treatment Upcoming Encounters Date Type Department Care Team (Late st Contact Info) Description 05/31/2024 11:00 AM EDT Clinical Support [facility] CHC MED & PEDS [address] [place] [address] 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, RN 505 [place] [address] documented as of this encounter Visit Diagnoses Not on filedocumented in this encounter Care Teams Irrigation Equipment Remover Relationship Specialty Start Date End Date Carlo Santana MD [address] [place] [address] PCP - General Internal Medicine 12/28/17 documented as of this encounter
--- OUTSIDE RECORDS SUMMARY | 2024-04-09 13:03 | XMS_ITS | Encounter Summary ---
Author Organization [employer] Address [address] [facility] 7 [place] [address] Care Team Providers Care Hospital Chief Financial Officer Name Role Phone Carlo Santana MD Primary Care Provider +1- [phone] Reason for Visit * Reason Onset Date Comments Referral 02/22/2024 Encounter Details Date Type Department Care Team (Late st Contact Info) Description 02/22/2024 Telephone [facility] MEDICINE [address] [place] [address] Carlo Santana MD [address] [facility] [address] [place], [place] [phone] Referral Social History Tobacco Use Types Packs/Day [...] Telephone Encounter - Rand Savage RN - 02/23/2024 11:34 AM EST Pt requesting Neurosurgeon referral for [facility]. * Telephone Encounter - Patricia Espinal - 02/22/2024 10:11 AM EST Tc from pt requesting a callback as she will like a referral for a Neurosurgery and a second referral for Outpatient Therapy, Callback number [phone] documented in this encounter Plan of Treatment Upcoming Encounters Date Type Department Care Team (Late st Contact Info) Description 05/31/2024 11:00 AM EDT Clinical Support [facility] CHC MED & PEDS 505 [place] [address] 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, RN 505 [place] [address] documented as of this encounter Visit Diagnoses Not on filedocumented in this encounter Additional Health Concerns Assessment Noted Time PHQ-9 Depression Total Score: 15 024 11:50 AM EST documented as of this encounter Care Teams Hospital Chief Financial Officer Relationship Specialty Start Date End Date Carlo Santana MD [address] [place] [address] PCP - General Internal Medicine 12/28/17 documented as of this encounter
--- OUTSIDE RECORDS SUMMARY | 2024-04-09 13:03 | XMS_ITS | Encounter Summary ---
Author Organization [employer] Address [address] [place] [address] 7 [place] [address] Care Team Providers Care Thermometer Maker Name Role Phone Carlo Santana MD Primary Care Provider +1- [phone] Encounter Details Date Type Department Care Team ([facility] st Contact Info) Description 09/16/2023 Orders Only [facility] CHC MED & PEDS [address] [place], [place] [phone] Carlo Santana MD 505 [place] [address] Bipolar affective disorder, remission status unspecified ([facility]) Social History Tobacco Use Types Packs/Day Years [...] [facility] MED & PEDS 505 [place] [address] 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, HUGO 505 [place] [address] documented as of this encounter Visit Diagnoses Diagnosis Bipolar affective disorder, remission status unspecified ([facility]) documented in this encounter Additional Health Concerns Assessment Noted Time PHQ-9 Depression Total Score: 3 06/04/19 23 3:42 PM EDT documented as of this encounter Care Teams Thermometer Maker Relationship Specialty Start Date End Date Carlo Santana MD 505 [place] [address] PCP - General Internal Medicine 12/28/17 documented as of this encounter
--- OUTSIDE RECORDS SUMMARY | 2024-04-09 13:03 | XMS_ITS | Encounter Summary ---
Author Organization [employer] Address [address] [place] [address] 7 [place] [address] Care Team Providers Care Home Demonstrator Name Role Phone Carlo Santana MD Primary Care Provider +1- [phone] Reason for Visit * Reason Comments Med Change Request Encounter Details Date Type Department Care Team ([facility] Contact Info) Description 04/08/2023 Refill [facility] CHC MED & PEDS 505 [place] [address] Carlo Santana MD 505 [place] [address] Obesity (BMI 30-39.9) Social History Tobacco Use Types Packs/Day Years [...] Upcoming Encounters Date Type Department Care Team ([facility] st Contact Info) Description 05/31/2024 11:00 AM EDT Clinical Support [facility] MED & PEDS 505 [place] [address] 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 RN 505 [place] [address] documented as of this encounter Visit Diagnoses Diagnosis Obesity (BMI 30-39.9) documented in this encounter Additional Health Concerns Assessment Noted Time PHQ-9 Depression Total Score: 3 06/04/19 23 3:42 PM EDT documented as of this encounter Care Teams Home Demonstrator Relationship Specialty Start Date End Date Carlo Santana MD 505 [place] [address] PCP - General Internal Medicine 12/28/17 documented as of this encounter
--- OUTSIDE RECORDS SUMMARY | 2024-04-09 13:03 | XMS_ITS | Encounter Summary ---
Author Organization [employer] Address [address] [facility] 7 [place] [address] Care Team Providers Care Firearms Assembly Supervisor Name Role Phone Carlo Santana MD Primary Care Provider +1- [phone] Reason for Visit * Reason Onset Date Comments Referral 12/13/2023 Encounter Details Date Type Department Care Team (Late st Contact Info) Description 12/13/2023 Telephone [facility] MEDICINE [address] [place] [address] Carlo Santana MD [address] [facility] [address] [place], [place] [phone] Referral Social History Tobacco Use Types Packs/Day [...] encounter Miscellaneous Notes * Telephone Encounter - Edna Espinal - 12/15/2023 12:38 PM EDT Referral re-faxed to office * Telephone Encounter - Lizet Marroquin RN - 12/15/2023 12:00 PM EDT TC placed to pt [phone] in regards to below message. Pt did not answer, RN left requesting CB to red team nurses. TC placed to [phone] in regards to below message. Pt reports she does NOT want to be referred to PT. Pt reports she is looking to have referral to [facility]. Pt reports she received a call from [facility] advising pt that she needs a NEW referral to [facility] stating specifically OUTPATIENT MEDICATION THERAPY as [facility] is interpreting the referral as inpatient. RN advised pt a message would be sent to [facility]/ team for them to f/u w/ [facility] to determine what exactly is needed/how to alter referral to their request. Pt also reports Dr. Blanchard's office (supervisor drying) is requesting a copy of the referral to be sent to their office with a START and END date on the referral. Pt reports she has an appt on 12/26 and was advised they need this letter prior to the appt. Pt was advised RN would send message to referral team. Pt verbalized understanding. Pt to f/u PRN. * Telephone Encounter - Quan Mena - 12/13/2023 1:40 PM EDT Tc from pt calling in regard to message prior stating she does not want termite exterminator care she only wants physical therapy to obtain proper diagnoses. Pt also requesting for Dermatology referral to be fixed stating it needs a start and end date. If any questions you can contact pt at [phone]. * Telephone Encounter - Braden Cool - 12/13/2023 8:27 AM EDT Tc from pt requesting a referral for outpatient therapy at [facility] [address] [place] [id number] - states will be seeing a therapist. Please contact at [phone] documented in this encounter Plan of Treatment Upcoming Encounters Date Type Department Care Team ([facility] st Contact Info) Description 05/31/2024 11:00 AM EDT Clinical Support [facility] CHC MED & PEDS 505 [place] [address] 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, HUGO 505 [place] [address] documented as of this encounter Visit Diagnoses Not on filedocumented in this encounter Additional Health Concerns Assessment Noted Time PHQ-9 Depression Total Score: 3 06/04/19 23 3:42 PM EDT documented as of this encounter Care Teams Firearms Assembly Supervisor Relationship Specialty Start Date End Date Carlo Santana MD 505 [place] [address] PCP - General Internal Medicine 12/28/17 documented as of this encounter
--- OUTSIDE RECORDS SUMMARY | 2024-04-09 13:03 | XMS_ITS | Encounter Summary ---
Author Organization [employer] Address [address] [facility] 7 [place] [address] Care Team Providers Care Drafter Civil (Cad) Name Role Phone Carlo Santana MD Primary Care Provider +1- [phone] Reason for Visit * Reason Comments Med Refill Encounter Details Date Type Department Care Team ([facility] st Contact Info) Description 03/31/2023 Refill [facility] MEDICINE 230 [place] [address] Carlo Santana MD 505 [place], [place] [phone] Chronic left-sided low back pain with left-sided sciatica; Low back pain radiating down leg Social History Tobacco Use Types Packs/Day Years [...] 11:00 AM EDT Clinical Support [facility] MED & PEDS 505 [place] [address] 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 RN 505 [place] [address] documented as of this encounter Visit Diagnoses Diagnosis Chronic left-sided low back pain with left-sided sciatica Low back pain radiating down leg documented in this encounter Additional Health Concerns Assessment Noted Time PHQ-9 Depression Total Score: 3 06/04/19 23 3:42 PM EDT documented as of this encounter Care Teams Drafter Civil (Cad) Relationship Specialty Start Date End Date Carlo Santana MD [address] [place] [address] PCP - General Internal Medicine 12/28/17 documented as of this encounter
--- OUTSIDE RECORDS SUMMARY | 2024-04-09 13:03 | XMS_ITS | Encounter Summary ---
Author Organization [employer] Address [address] [place] [address] 7 [place] [address] Care Team Providers Care Switch Inspector Name Role Phone Carlo Santana MD Primary Care Provider +1- [phone] Reason for Visit * Reason Onset Date Comments Appointment Request 09/16/2023 Encounter Details Date Type Department Care Team ([facility] st Contact Info) Description 09/16/2023 Telephone [facility] CHC MED & PEDS 505 [place] [address] Carlo Santana MD 505 [place] [address] Appointment Request Social History Tobacco Use Types [...] encounter Miscellaneous Notes * Telephone Encounter - Suyapa Santacruz - 09/16/2023 10:37 AM EDT Tc from pt requesting telehealth with PCP to discuss medication. Elevator Constructor Helper attempted to schedule for November but pt declined and stated would like a sooner appointment. Denied triage. Contact pt at [phone] documented in this encounter Plan of Treatment Upcoming Encounters Date Type Department Care Team (Late st Contact Info) Description 05/31/2024 11:00 AM EDT Clinical Support [facility] CHC MED & PEDS 505 [place] [address] 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, HUGO 505 [place] [address] documented as of this encounter Visit Diagnoses Not on filedocumented in this encounter Additional Health Concerns Assessment Noted Time PHQ-9 Depression Total Score: 3 06/04/19 23 3:42 PM EDT documented as of this encounter Care Teams Switch Inspector Relationship Specialty Start Date End Date Carlo Santana MD 505 [place] [address] PCP - General Internal Medicine 12/28/17 documented as of this encounter
--- OUTSIDE RECORDS SUMMARY | 2024-04-09 13:03 | XMS_ITS | Encounter Summary ---
Author Organization [employer] Address [address] [facility] 7 [place] [address] Care Team Providers Care Structural Engineer Name Role Phone Carlo Santana MD Primary Care Provider +1- [phone] Reason for Visit * Reason Onset Date Comments Med Refill 12/05/2023 Encounter Details Date Type Department Care Team (Late st Contact Info) Description 12/05/2023 Telephone [facility] MEDICINE 230 [place] [address] Carlo Santana MD 505 [place], [place] [phone] Med Refill Social History Tobacco Use Types [...] * Telephone Encounter - Braden Cool - 12/05/2023 4:16 PM EDT Tc from pt requesting a refill for ziprasidone (Geodon) 80 MG capsule , states [pharmacy advised they do not have refills. documented in this encounter Plan of Treatment Upcoming Encounters Date Type Department Care Team ([facility] st Contact Info) Description 05/31/2024 11:00 AM EDT Clinical Support [facility] MED & PEDS 505 [place] [address] 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 RN 505 [place] [address] documented as of this encounter Visit Diagnoses Not on filedocumented in this encounter Additional Health Concerns Assessment Noted Time PHQ-9 Depression Total Score: 3 06/04/19 23 3:42 PM EDT documented as of this encounter Care Teams Structural Engineer Relationship Specialty Start Date End Date Carlo Santana MD 505 [place] [address] PCP - General Internal Medicine 12/28/17 documented as of this encounter
--- OUTSIDE RECORDS SUMMARY | 2024-04-09 13:03 | XMS_ITS | Encounter Summary ---
Author Organization [employer] Address [address] [facility] 7 [place] [address] Care Team Providers Care P D Driver Name Role Phone Carlo Santana MD Primary Care Provider +1- [phone] Reason for Visit * Reason Onset Date Comments Call Back Request 10/13/2023 Encounter Details Date Type Department Care Team ([facility] st Contact Info) Description 10/13/2023 Telephone [facility] 230 [place] [address] Carlo Santana MD [address] [facility] [address] [place], [place] [phone] Call Back Request Social History Tobacco Use [...] * Telephone Encounter - Hien Jarquin - 10/13/2023 9:42 AM EDT Tc from pt requesting a call back in regards [facility] appt. No further details provided. documented in this encounter Plan of Treatment Upcoming Encounters Date Type Department Care Team (Late st Contact Info) Description 05/31/2024 11:00 AM EDT Clinical Support [facility] CHC MED & PEDS 505 [place] [address] 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, HUGO 505 [place] [address] documented as of this encounter Visit Diagnoses Not on filedocumented in this encounter Additional Health Concerns Assessment Noted Time PHQ-9 Depression Total Score: 3 06/04/19 23 3:42 PM EDT documented as of this encounter Care Teams P D Driver Relationship Specialty Start Date End Date Carlo Santana MD 505 [place] [address] PCP - General Internal Medicine 12/28/17 documented as of this encounter
--- OUTSIDE RECORDS SUMMARY | 2024-04-09 13:03 | XMS_ITS | Encounter Summary ---
Author Organization [employer] Address 75 [facility] 7 [place] [address] Care Team Providers Care Medical Billing Specialist Name Role Phone Carlo Santana MD Primary Care Provider +1- [phone] Reason for Visit * Reason Comments Med Refill Encounter Details Date Type Department Care Team ([facility] st Contact Info) Description 11/02/2023 Refill [facility] MEDICINE 230 [place] [address] aCrlo Santana MD 505 [place], [place] [phone] Chronic left-sided low back pain with left-sided [...] Upcoming Encounters Date Type Department Care Team ([facility] st Contact Info) Description 05/31/2024 11:00 AM EDT Clinical Support [facility] MED & PEDS 505 [place] [address] 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 RN 505 [place] [address] documented as of this encounter Visit Diagnoses Diagnosis Chronic left-sided low back pain with left-sided sciatica documented in this encounter Additional Health Concerns Assessment Noted Time PHQ-9 Depression Total Score: 3 06/04/19 23 3:42 PM EDT documented as of this encounter Care Teams Medical Billing Specialist Relationship Specialty Start Date End Date Carlo Santana MD 505 [place] [address] PCP - General Internal Medicine 12/28/17 documented as of this encounter
--- OUTSIDE RECORDS SUMMARY | 2024-04-09 13:03 | XMS_ITS | Encounter Summary ---
Author Organization [employer] Address [address] [place] [address] 7 [place] [address] Care Team Providers Care Hospital Food Service Worker Name Role Phone Carlo Santana MD Primary Care Provider +1- [phone] Encounter Details Date Type Department Care Team ([facility] st Contact Info) Description 11/07/2023 Orders Only [facility] CHC MED & PEDS 505 [place], [place] [phone] Carlo Santana MD 505 [place] [address] Muscle spasm Social History Tobacco Use Types [...] Description 05/31/2024 11:00 AM EDT Clinical Support [facility] CHC MED & PEDS 505 [place] [address] 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, HUGO 505 [place] [address] documented as of this encounter Visit Diagnoses Diagnosis Muscle spasm Spasm of muscle documented in this encounter Additional Health Concerns Assessment Noted Time PHQ-9 Depression Total Score: 3 06/04/19 23 3:42 PM EDT documented as of this encounter Care Teams Hospital Food Service Worker Relationship Specialty Start Date End Date Carlo Santana MD 505 [place] [address] PCP - General Internal Medicine 12/28/17 documented as of this encounter
--- OUTSIDE RECORDS SUMMARY | 2024-04-09 13:03 | XMS_ITS | Encounter Summary ---
Author Organization [employer] Address [address] [facility] 7 [place] [address] Care Team Providers Care Sales Development Representative Name Role Phone Carlo Santana MD Primary Care Provider +1- [phone] Reason for Visit * Reason Onset Date Comments Med Refill 10/18/2023 Encounter Details Date Type Department Care Team (Late st Contact Info) Description 10/18/2023 Telephone [facility] MEDICINE 230 [place] [address] Carlo Santana MD 505 [place], [place] [phone] Med Refill Social History Tobacco Use Types [...] encounter Miscellaneous Notes * Telephone Encounter - Jaylen Thibodeaux - 10/18/2023 3:00 PM EDT TC from pt requesting medication refill. Medications needing refill : clonazePAM (KlonoPIN) 1 MG tablet To be sent to: [facility] documented in this encounter Plan of Treatment Upcoming Encounters Date Type Department Care Team (Late st Contact Info) Description 05/31/2024 11:00 AM EDT Clinical Support [facility] CHC MED & PEDS 505 [place] [address] 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, RN 505 [place] [address] documented as of this encounter Visit Diagnoses Not on filedocumented in this encounter Additional Health Concerns Assessment Noted Time PHQ-9 Depression Total Score: 3 06/04/19 23 3:42 PM EDT documented as of this encounter Care Teams Sales Development Representative Relationship Specialty Start Date End Date Carlo Santana MD 505 [place] [address] PCP - General Internal Medicine 12/28/17 documented as of this encounter
--- OUTSIDE RECORDS SUMMARY | 2024-04-09 13:03 | XMS_ITS | Encounter Summary ---
Author Organization [employer] Address [address] [facility] 7 [place] [address] Care Team Providers Care Dry Kiln Burner Name Role Phone Carlo Santana MD Primary Care Provider +1- [phone] Reason for Visit * Reason Onset Date Comments Med Refill 05/04/2023 Encounter Details Date Type Department Care Team ([facility] st Contact Info) Description 05/04/2023 Telephone [facility] MEDICINE 230 [place] [address] Carlo Santana MD [address] [facility] [address] [place], [place] [phone] Med Refill Social History Tobacco Use Types [...] * Telephone Encounter - Hien Jarquin - 05/04/2023 10:06 AM EST TC from pt requesting medication refill. Medications needing refill : DULoxetine (Cymbalta) 30 MG capsule celecoxib (CeleBREX) 200 MG capsule To be sent to: [facility]acy [id number] [place] [facility] [address] [facility] documented in this encounter Plan of Treatment Upcoming Encounters Date Type Department Care Team (Late st Contact Info) Description 05/31/2024 11:00 AM EDT Clinical Support [facility] MED & PEDS 505 [place] [address] 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, HUGO 505 [place] [address] documented as of this encounter Visit Diagnoses Not on filedocumented in this encounter Additional Health Concerns Assessment Noted Time PHQ-9 Depression Total Score: 3 06/04/19 23 3:42 PM EDT documented as of this encounter Care Teams Dry Kiln Burner Relationship Specialty Start Date End Date Carlo Santana MD 505 [place] [address] PCP - General Internal Medicine 12/28/17 documented as of this encounter
--- OUTSIDE RECORDS SUMMARY | 2024-04-09 13:03 | XMS_ITS | Encounter Summary ---
Author Organization [employer] Address [address] [place] [address] [address] [place] [address] Care Team Providers Care Zigzag Stitcher Name Role Phone Carlo Santana MD Primary Care Provider [phone]- [phone] Reason for Visit * Reason Comments Med Refill Encounter Details Date Type Department Care Team ([facility] Contact Info) Description 12/06/2023 Refill [facility] [address] [place] [address] Carlo Santana MD [address] [place] [address] Bipolar affective disorder, remission status unspecified (CMS/HCC) Social History Tobacco Use Types Packs/Day Years [...] Upcoming Encounters Date Type Department Care Team ([facility] st Contact Info) Description 05/31/2024 11:00 AM EDT Clinical Support [facility] [address] [place] [address] 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 RN [address] [place] [address] documented as of this encounter Visit Diagnoses Diagnosis Bipolar affective disorder, remission status unspecified (CMS/HCC) documented in this encounter Additional Health Concerns Assessment Noted Time PHQ-9 Depression Total Score: 3 06/04/19 23 3:42 PM EDT documented as of this encounter Care Teams Zigzag Stitcher Relationship Specialty Start Date End Date Carlo Santana MD [address] [place] [address] PCP - General Internal Medicine 12/28/17 documented as of this encounter
--- OUTSIDE RECORDS SUMMARY | 2024-04-09 13:03 | XMS_ITS | Encounter Summary ---
Author Organization [employer] Address [address] [facility] 7 [place] [address] Care Team Providers Care Machine Binding Folder Name Role Phone Carlo Santana MD Primary Care Provider [phone]- [phone] Reason for Visit * Reason Onset Date Comments Nurse Triage 10/31/2023 Encounter Details Date Type Department Care Team (Late st Contact Info) Description 10/31/2023 Telephone [facility] [address] [place] [address] Carlo Santana MD [address] [facility] [address] [place], [place] [id number] Nurse Triage Social History Tobacco Use Types [...] Telephone Encounter - Wing Romeo RN - 10/31/2023 4:00 PM EDT Tc to pt regarding need for follow-up with a provider. Suggested [facility] but pt wanted to see PCP for stronger lidocaine patches for her back. Pt reports pain as a constant 7-8/10 and can barely move. Reiterated that pt should be seen for the fall to be properly evaluated and there was not same daycare appt at [facility]. Pt declined [place] and ended call. * Telephone Encounter - Abby Man RN - 10/31/2023 8:59 AM EDT Called pt. She states that she fell over the weekend. Pt states that her inner right hip clicks when she walks and she lost her balance and fell over. No injury but, it makes her leg weak when she walks and inner upper hip/thigh area and causes weakness in her leg. Pt. Does have up coming pre-op appt on 11/09/23 with PCP but pt. Was wondering if there are any stronger % of lidocaine patches as sheis on 5% strength at present for her previous low back pain.. Protocol Used: Hip Pain (Adult) Protocol-Based Disposition: See in Office or Video Visit within 2 Weeks- Pt. Has upcoming appt. On 11/09/23 at 2pm. Video visit not offered Positive Triage Question: * Hip pain is a chronic symptom (recurrent or ongoing AND present > 4 weeks) * All higher-acuity triage questions were negative Care Advice Discussed: * Reassurance and Education - Hip Pain * Pain Medicines * Rest Your Hip for the Next Couple Days * Use Heat After 48 Hours for Pain * Local Heat (Bathtub Option) * Rest * Telephone Encounter - Angel Luis Oreilly - 10/31/2023 8:23 AM EDT Symptom: Fall Outcome: Schedule an urgent appointment (within 1 hour) or talk to a nurse or provider soon Reason: Happened within the past 24 hours The caller accepted this outcome documented in this encounter Plan of Treatment Upcoming Encounters Date Type Department Care Team ([facility] st Contact Info) Description 05/31/2024 11:00 AM EDT Clinical Support [facility] [address] [place] [address] 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 RN [address] [place] [address] documented as of this encounter Visit Diagnoses Not on filedocumented in this encounter Additional Health Concerns Assessment Noted Time PHQ-9 Depression Total Score: 3 06/04/19 23 3:42 PM EDT documented as of this encounter Care Teams Machine Binding Folder Relationship Specialty Start Date End Date Carlo Santana MD [address] [place] [address] PCP - General Internal Medicine 12/28/17 documented as of this encounter
--- OUTSIDE RECORDS SUMMARY | 2024-04-09 13:03 | XMS_ITS | Encounter Summary ---
Author Organization [employer] Address [address] [facility] 7 [place] [address] Care Team Providers Care Calcine Furnace Loader Name Role Phone Carlo Santana MD Primary Care Provider [phone]- [phone] Reason for Visit * Reason Onset Date Comments Nurse Triage 04/12/2023 Encounter Details Date Type Department Care Team (Late st Contact Info) Description 04/12/2023 Telephone [facility] [address] [place] [address] Carlo Santana MD [address] [facility] [address] [place], [place] [phone] Nurse Triage Social History Tobacco Use Types [...] Telephone Encounter - Rosalina Armenta RN - 04/12/2023 12:59 PM EST Triage call Pt reports excessive fatigue and headache. Pt reports a feeling of motion sickness like symptoms. Pt feels, run down and just sick . Pt is neg for Covid tested today. Headache comes and goes for last 3 days. Neg for fever, cough, SCOTT sx, sore throat. Blood pressure has been fine. Pt reports having fibromyalgia but, this doesn't seem to be caused by that. Pt feels that medicationsaren't helping symptoms. Tylenol/motrin not affecting headache. Pt is not drinking adequate liquidsand is advised to increase liquids to 6-8 glasses daily including broth, decaf tea. Pt agrees with disposition and home care reviewed. Apt [facility] 04/13/23 @ 1120am. Insurance is veriifed as active prior to scheduling Protocol Used: Headache (Adult) Protocol-Based Disposition: See in Office or Video Visit Today or Tomorrow Video visit not offered Positive Triage Question: * Unexplained headache that is present > 24 hours * All higher-acuity triage questions were negative Care Advice Discussed: * Pain Medicines * Pain Medicines - Extra Notes and Warnings * Rest for Headache * Cold Pack for Headache * Stretching * Reasons To Call Back - Severe headache persists over 2 hours after pain medicine - Headache lasts over 24 hours despite using a pain medicine - You become worse * Telephone Encounter - Angel Luis Oreilly - 04/12/2023 12:04 PM EST Symptoms: Lethargic (Tired), Headache, Nausea But No Vomiting Outcome: Schedule an urgent appointment (within 4 hours) or talk to a nurse or provider soon Reason: Started within the past 3 days The caller accepted this outcome documented in this encounter Plan of Treatment Upcoming Encounters Date Type Department Care Team (Late st Contact Info) Description 05/31/2024 11:00 AM EDT Clinical Support [facility] [address] [place] [address] 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, RN [address] [place] [address] documented as of this encounter Visit Diagnoses Not on filedocumented in this encounter Additional Health Concerns Assessment Noted Time PHQ-9 Depression Total Score: 3 06/04/19 23 3:42 PM EDT documented as of this encounter Care Teams Calcine Furnace Loader Relationship Specialty Start Date End Date Carlo Santana MD [address] [place] [address] PCP - General Internal Medicine 12/28/17 documented as of this encounter
--- OUTSIDE RECORDS SUMMARY | 2024-04-09 13:03 | XMS_ITS | Encounter Summary ---
Author Organization [employer] Address [address] [place] [address] [address] [place] [address] Care Team Providers Care Shirt Bander Name Role Phone Carlo Santana MD Primary Care Provider [phone]- [phone] Encounter Details Date Type Department Care Team ([facility] st Contact Info) Description 05/02/2023 Orders Only [facility] [address] [place], [place] [phone] Carol Santana MD [address] [place], [place] [phone] New daily persistent headache (Primary Dx) Social History Tobacco Use Types [...] Upcoming Encounters Date Type Department Care Team ([facility] st Contact Info) Description 05/31/2024 11:00 AM EDT Clinical Support [facility] MED [facility] PEDS [address] [place] [address] 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, RN [address] [place] [address] documented as of this encounter Procedures Procedure Name Priority Date/Time Associated Diagnosis Comments MR LUMBAR SPINE WO CONTRAST Routine 05/18/2023 8:07 PM EST US RETROPERITONEAL LIMITED Routine 05/17/2023 3:44 PM EST documented in this encounter Results * MR Lumbar Spine w/o Contrast (05/18/2023 8:07 PM EST) Anatomical Region Laterality Modality Spine, L-spine Magnetic Resonan ce 05/18/2023 8:07 PM EST Narrative 05/23/2023 11:39 AM EDT ? [facility] ?[address] ?[place] [address] ? Magnetic Resonance Report ? Signed ? Patient: Du,Peri Vera ?MR#: [id number] ?? 338 ? : 1980 ?Acct:[id number] ? Age/Sex: 42 / F ?ADM Date: 03/06/24 ? Loc: HO.MRI ? Attending Dr: Karl VICTOR ? Ordering Physician: Karl Meade ?? Date of Service: 05/18/23 ?? Procedure(s): MR lumbar spine wo con ?? Accession Number(s): [id number] ? cc: Carlo Santana MD; Karl Meade ? EXAMINATION: ?? MR LUMBAR SPINE WITHOUT CONTRAST ? CLINICAL INFORMATION: ?? 42-year-old with radiculopathy, lumbar region. Self-reported ?? fibromyalgia with right leg pain and weakness. ? COMPARISON: ?? 06/03/2022 MRI. ? TECHNIQUE: ?? MRI of the lumbar spine was obtained using routine sequences without ?? contrast. ? FINDINGS: ? CORONAL ALIGNMENT: There is mild lower lumbar dextrocurvature, mildly ?? convex to the right at L4-L5 only partially imaged on current study and ?? not imaged on previous exam. ? SAGITTAL ALIGNMENT: There is grade 1 rotatory anterolisthesis ?? asymmetric to the left at L4-L5 similar to the previous exam without ?? spondylolysis. There is grade 1 retrolisthesis at L3-L4 slightly ?? progressed from previous study. Mild grade 1 retrolisthesis at L2-L3 ?? also appears slightly more prominent on current study with stable grade ?? 1 retrolisthesis at L1-L2. ? LUMBOSACRAL JUNCTION: Transitional lumbosacral anatomy with lowest ?? lumbar-like segment labeled as L5, which appears partially sacralized ?? on the right. ? VERTEBRAL BODIES: Stable vertebral body heights. ??No interval ?? compression fractures. ? DISC SPACES AND ENDPLATES: Gkjjgeeo-vk-idmvuq intervertebral disc space ?? height loss asymmetric to the left at L4-L5 with disc desiccation ?? stable in appearance. Gope-mn-cseyjqwi disc volume loss at L3-L4 ?? asymmetric to the left, slightly progressed from previous exam with a ?? stable small Schmorl's node along the superior endplate of L4 on the ?? left. Minor spondylosis is unchanged. Mild disc volume loss at L2-L3 ?? with disc desiccation is stable. Mpuhvmhm-bz-wrzube intervertebral disc ?? space height loss asymmetric to the right at L1-L2 with disc ?? desiccation, central Schmorl's nodes and spondylosis stable in ?? appearance. Schmorl's nodes noted along the superior and inferior ?? endplates of T12 are unchanged. ? SPINAL CANAL: No abnormal developmental findings. ? BONE MARROW: No significant marrow-replacing process or bone marrow ?? edema. Type I degenerative marrow signal changes are seen along the ?? endplates asymmetric to the left at L3-L4 progressed from previous ?? study. There is a 1 cm low T1/high T2 signal focus in the L2 vertebral ?? body close to the superior endplate which is unchanged in appearance ?? from previous exam and may reflect an atypical lipid poor 9 vertebral ?? hemangioma. ? CONUS MEDULLARIS: Terminates at L1. Morphology and signal is normal. ? INTRADURAL NERVE ROOTS: There is some crowding of the intradural nerve ?? roots at L3-L4 progressed from previous study. Otherwise grossly within ?? normal limits. ? L5-S1: Small, shallow central disc protrusion without neural ?? impingement stable in appearance. Moderate right and mild left-sided ?? facet arthropathy noted without significant canal or neuroforaminal ?? stenosis stable in appearance. ? L4-L5: Unroofing of the posterior disc margin asymmetric to the left ?? consistent with rotatory anterolisthesis stable in appearance. There is ?? associated mild flattening of the ventral dural sac similar to prior ?? study. Ligamentum flavum thickening and moderate to severe bilateral ?? facet joint arthropathy is similar to the previous exam without ?? significant central spinal canal stenosis. There is narrowing of the ?? left lateral recess, with encroachment on the traversing left L5 nerve ?? root unchanged in appearance. There is mild craniocaudal neuroforaminal ?? narrowing on the left without definite exiting neural impingement ?? stable in appearance. ? L3-L4: Retrolisthesis at this level somewhat progressed from previous ?? exam. There is disc bulging with a superimposed central disc herniation ?? slightly more apparent on current study, with increased flattening of ?? the ventral dural sac. Ligamentum flavum thickening and moderate to ?? marked bilateral facet joint arthropathy are stable. There is moderate ?? central spinal canal stenosis somewhat progressed from the previous ?? exam with progression of crowding of the intradural nerve roots. There ?? is crowding of the subarticular zones on the current study which ?? encroaches on the traversing L4 nerve roots bilaterally progressed from ?? previous study. There is mild to moderate right and moderate to severe ?? left-sided neural foraminal narrowing impinging on the exiting L3 nerve ?? roots bilaterally similar to the previous exam. ? L2-L3: Mild retrolisthesis slightly more apparent on current study. ?? Bilateral subarticular to foraminal disc protrusions stable on the ?? right and slightly progressed on the left with mild indentation of the ?? ventral thecal sac on both sides of midline progressed from previous ?? study. No significant central canal stenosis. Bukx-fi-iqcjxnjp ?? bilateral facet joint arthropathy is stable with mild narrowing of the ?? subarticular zones bilaterally on current study without neural ?? impingement. No significant neural foraminal stenosis. ? L1-L2: Stable retrolisthesis, with disc bulging and right ?? paravertebral/posterolateral disc osteophyte complex stable in ?? appearance with mild indentation of the ventral thecal sac asymmetric ?? to the right without central canal stenosis stable in appearance. Minor ?? foraminal narrowing noted on the right without neural impingement ?? unchanged in appearance. ? T12-L1: Normal annular contour. No facet arthrosis, canal or foraminal ?? stenosis. ? PARAVERTEBRAL AND INCLUDED EXTRASPINAL SOFT TISSUES: The visualized ?? paravertebral soft tissues and included retroperitoneal structures are ?? unremarkable within the limitations of the exam. Within the pelvis on ?? the pleating machine operator view, there is a 5.5 cm cystic structure in the expected ?? location of the right adnexa, similar in appearance to the previous ?? study, based on evaluation of the pleating machine operator view. ? MR/MR lumbar spine wo con ?? IMPRESSION: ?? 1. Mild lower lumbar dextrocurvature convex to the right at L4-L5, not ?? imaged on previous exam. Multilevel subluxations as described, stable ?? at L4-L5, progressed at L3-L4 and L2-L3. ? 2. Multilevel discogenic degenerative changes and spondylosis, with ?? progression of disc volume loss at L3-L4 since the previous exam and ?? progression of retrolisthesis at this level with disc bulging and ?? central disc herniation at this level. Moderate central spinal canal ?? stenosis at this level progressed from previous study with progression ?? of crowding of the intradural nerve roots and encroachment on the ?? traversing L4 nerve roots bilaterally progressed from previous study. ?? Ujuhibso-ek-pszoyr left and rdph-iq-nkazdimb right-sided neural ?? foraminal stenosis at L3-L4, similar to previous exam, with impingement ?? on the exiting L3 nerve roots bilaterally, similar to previous exam. ? 3. Left lateral recess stenosis at L4-L5 with mild encroachment on the ?? traversing left L5 nerve root unchanged in appearance. ? 4. Multilevel bilateral facet joint arthropathy as described above ?? largely unchanged in appearance. ? 5. A 5.5 cm cystic structure in the expected location of the right ?? adnexa on the pleating machine operator view similar to the previous study. As noted on the ?? previous study, this likely reflects a physiologic right ovarian cyst ?? but is not definitely characterized as simple-appearing based on this ?? study and therefore follow up ultrasound may be indicated. ? Dictated By: ?JOVANY BARROS MD ? Signed By: ?<Electronically signed by JOVANY BARROS MD in OV> ? 05/23/23 1135 ? DD/ 2007 ? TD/TT: ? Proof Reader: ? Procedure Note Wilfredo, Image - 05/23/2023 [place] [address] Magnetic Resonance Report Signed Patient: Peri Sandy MMR#: [id number] 338 : 1980Acct:[id number] Age/Sex: 42 / FADM Date: 05/18/23 Loc: HO.MRI Attending Dr: Karl VICTOR Ordering Physician: Karl Meade Date of Service: 05/18/23 Procedure(s): MR lumbar spine wo con Accession Number(s): [id number] cc: Carlo Santana MD; Karl Meade EXAMINATION: MR LUMBAR SPINE WITHOUT CONTRAST CLINICAL INFORMATION: 42-year-old with radiculopathy, lumbar region. Self-reported fibromyalgia with right leg pain and weakness. COMPARISON: 06/03/2022 MRI. TECHNIQUE: MRI of the lumbar spine was obtained using routine sequences without contrast. FINDINGS: CORONAL ALIGNMENT: There is mild lower lumbar dextrocurvature, mildly convex to the right at L4-L5 only partially imaged on current study and not imaged on previous exam. SAGITTAL ALIGNMENT: There is grade 1 rotatory anterolisthesis asymmetric to the left at L4-L5 similar to the previous exam without spondylolysis. There is grade 1 retrolisthesis at L3-L4 slightly progressed from previous study. Mild grade 1 retrolisthesis at L2-L3 also appears slightly more prominent on current study with stable grade 1 retrolisthesis at L1-L2. LUMBOSACRAL JUNCTION: Transitional lumbosacral anatomy with lowest lumbar-like segment labeled as L5, which appears partially sacralized on the right. VERTEBRAL BODIES: Stable vertebral body heights. No interval compression fractures. DISC SPACES AND ENDPLATES: Nlrnrnax-ja-culkpd intervertebral disc space height loss asymmetric to the left at L4-L5 with disc desiccation stable in appearance. Pdwq-bi-gccbxmxc disc volume loss at L3-L4 asymmetric to the left, slightly progressed from previous exam with a stable small Schmorl's node along the superior endplate of L4 on the left. Minor spondylosis is unchanged. Mild disc volume loss at L2-L3 with disc desiccation is stable. Jcyayprl-qy-pgvfbx intervertebral disc space height loss asymmetric to the right at L1-L2 with disc desiccation, central Schmorl's nodes and spondylosis stable in appearance. Schmorl's nodes noted along the superior and inferior endplates of T12 are unchanged. SPINAL CANAL: No abnormal developmental findings. BONE MARROW: No significant marrow-replacing process or bone marrow edema. Type I degenerative marrow signal changes are seen along the endplates asymmetric to the left at L3-L4 progressed from previous study. There is a 1 cm low T1/high T2 signal focus in the L2 vertebral body close to the superior endplate which is unchanged in appearance from previous exam and may reflect an atypical lipid poor 9 vertebral hemangioma. CONUS MEDULLARIS: Terminates at L1. Morphology and signal is normal. INTRADURAL NERVE ROOTS: There is some crowding of the intradural nerve roots at L3-L4 progressed from previous study. Otherwise grossly within normal limits. L5-S1: Small, shallow central disc protrusion without neural impingement stable in appearance. Moderate right and mild left-sided facet arthropathy noted without significant canal or neuroforaminal stenosis stable in appearance. L4-L5: Unroofing of the posterior disc margin asymmetric to the left consistent with rotatory anterolisthesis stable in appearance. There is associated mild flattening of the ventral dural sac similar to prior study. Ligamentum flavum thickening and moderate to severe bilateral facet joint arthropathy is similar to the previous exam without significant central spinal canal stenosis. There is narrowing of the left lateral recess, with encroachment on the traversing left L5 nerve root unchanged in appearance. There is mild craniocaudal neuroforaminal narrowing on the left without definite exiting neural impingement stable in appearance. L3-L4: Retrolisthesis at this level somewhat progressed from previous exam. There is disc bulging with a superimposed central disc herniation slightly more apparent on current study, with increased flattening of the ventral dural sac. Ligamentum flavum thickening and moderate to marked bilateral facet joint arthropathy are stable. There is moderate central spinal canal stenosis somewhat progressed from the previous exam with progression of crowding of the intradural nerve roots. There is crowding of the subarticular zones on the current study which encroaches on the traversing L4 nerve roots bilaterally progressed from previous study. There is mild to moderate right and moderate to severe left-sided neural foraminal narrowing impinging on the exiting L3 nerve roots bilaterally similar to the previous exam. L2-L3: Mild retrolisthesis slightly more apparent on current study. Bilateral subarticular to foraminal disc protrusions stable on the right and slightly progressed on the left with mild indentation of the ventral thecal sac on both sides of midline progressed from previous study. No significant central canal stenosis. Olkb-ac-vmuftgjk bilateral facet joint arthropathy is stable with mild narrowing of the subarticular zones bilaterally on current study without neural impingement. No significant neural foraminal stenosis. L1-L2: Stable retrolisthesis, with disc bulging and right paravertebral/posterolateral disc osteophyte complex stable in appearance with mild indentation of the ventral thecal sac asymmetric to the right without central canal stenosis stable in appearance. Minor foraminal narrowing noted on the right without neural impingement unchanged in appearance. T12-L1: Normal annular contour. No facet arthrosis, canal or foraminal stenosis. PARAVERTEBRAL AND INCLUDED EXTRASPINAL SOFT TISSUES: The visualized paravertebral soft tissues and included retroperitoneal structures are unremarkable within the limitations of the exam. Within the pelvis on the pleating machine operator view, there is a 5.5 cm cystic structure in the expected location of the right adnexa, similar in appearance to the previous study, based on evaluation of the pleating machine operator view. MR/MR lumbar spine wo con IMPRESSION: 1. Mild lower lumbar dextrocurvature convex to the right at L4-L5, not imaged on previous exam. Multilevel subluxations as described, stable at L4-L5, progressed at L3-L4 and L2-L3. 2. Multilevel discogenic degenerative changes and spondylosis, with progression of disc volume loss at L3-L4 since the previous exam and progression of retrolisthesis at this level with disc bulging and central disc herniation at this level. Moderate central spinal canal stenosis at this level progressed from previous study with progression of crowding of the intradural nerve roots and encroachment on the traversing L4 nerve roots bilaterally progressed from previous study. Uiamuzoc-wd-ctchla left and fjed-rh-vllsmrid right-sided neural foraminal stenosis at L3-L4, similar to previous exam, with impingement on the exiting L3 nerve roots bilaterally, similar to previous exam. 3. Left lateral recess stenosis at L4-L5 with mild encroachment on the traversing left L5 nerve root unchanged in appearance. 4. Multilevel bilateral facet joint arthropathy as described above largely unchanged in appearance. 5. A 5.5 cm cystic structure in the expected location of the right adnexa on the pleating machine operator view similar to the previous study. As noted on the previous study, this likely reflects a physiologic right ovarian cyst but is not definitely characterized as simple-appearing based on this study and therefore follow up ultrasound may be indicated. Dictated By: JOVANY BARROS MD Signed By: <Electronically signed by JOVANY BARROS MD in OV> 05/23/23 1135 DD/ 06 TD/TT: Proof Reader: us [facility] External Provider IMG MRI PROCEDURES Final Result * US RETROPERITONEAL LIMITED (05/17/2023 3:44 PM EST) Anatomical Region Laterality Modality Abdomen Ultrasound 05/17/2023 3:44 PM EST Narrative 05/19/2023 7:57 PM EST ? [facility] ?[address] ?[place] [address] ? Ultrasound Report ? Signed ? Patient: Du,Peri M ?MR#: [id number] ?? 338 ? : 1980 ?Acct:[id number] ? Age/Sex: 42 / F ?ADM Date: 05/17/23 ? Loc: HO.US ? Attending Dr: Luis Manuel Singh MD ? Ordering Physician: Luis Manuel Singh MD ?? Date of Service: 05/17/23 ?? Procedure(s): US retroperitoneal limited ?? Accession Number(s): [id number] ? cc: Luis Manuel Singh MD; Carlo Santana MD ? EXAMINATION: ?? US RETROPERITONEAL LIMITED (RENAL ONLY) ? CLINICAL INFORMATION: ?? Urge incontinence. ? COMPARISON: ?? . Ultrasound abdomen 01/24/2018. ? TECHNIQUE: ?? Real-time imaging of the kidneys. ? FINDINGS: ? RIGHT KIDNEY: 10.3 x 4.2 x 4.9 cm (SAG x AP x TRV). The kidney is ?? normal in size, contour, and echogenicity. Renal cortical thickness is ?? normal. No calculi or focal parenchymal lesions. No hydronephrosis. ? LEFT KIDNEY: 10.5 x 5.5 x 4.5 cm (SAG x AP x TRV). The kidney is normal ?? in size, contour, and echogenicity. Renal cortical thickness is normal. ?? No calculi or focal parenchymal lesions. No hydronephrosis. ? US/US retroperitoneal limited ?? IMPRESSION: ?? Unremarkable renal ultrasound. ? Dictated By: ?Nidhi Shaw MD ? Signed By: ?<Electronically signed by Nidhi Shaw MD in OV> ?05/19/233 ? DD/ 1544 ? TD/TT: ? Proof Reader: ? Procedure Note Geovanny Villalobos - 05/19/[address] [address] Ultrasound Report Signed Patient: Peri Sandy MMR#: [id number] 338 : 1980Acct:[id number] Age/Sex: 42 / FADM Date: 05/17/23 Loc: HO.US Attending Dr: Luis Manuel Singh MD Ordering Physician: Luis Manuel Singh MD Date of Service: 05/17/23 Procedure(s): US retroperitoneal limited Accession Number(s): [id number] cc: Luis Manuel Singh MD; Carlo Santana MD EXAMINATION: US RETROPERITONEAL LIMITED (RENAL ONLY) CLINICAL INFORMATION: Urge incontinence. COMPARISON: . Ultrasound abdomen 01/24/2018. TECHNIQUE: Real-time imaging of the kidneys. FINDINGS: RIGHT KIDNEY: 10.3 x 4.2 x 4.9 cm (SAG x AP x TRV). The kidney is normal in size, contour, and echogenicity. Renal cortical thickness is normal. No calculi or focal parenchymal lesions. No hydronephrosis. LEFT KIDNEY: 10.5 x 5.5 x 4.5 cm (SAG x AP x TRV). The kidney is normal in size, contour, and echogenicity. Renal cortical thickness is normal. No calculi or focal parenchymal lesions. No hydronephrosis. US/US retroperitoneal limited IMPRESSION: Unremarkable renal ultrasound. Dictated By: Nidhi Shaw MD Signed By: <Electronically signed by Nidhi Shaw MD in OV> 05/19/231952 DD/ 1544 TD/TT: Proof Reader: [facility] External Provider IMG US PROCEDURES Final Result documented in this encounter Visit Diagnoses Diagnosis New daily persistent headache- Primary documented in this encounter Additional Health Concerns Assessment Noted Time PHQ-9 Depression Total Score: 3 06/04/19 23 3:42 PM EDT documented as of this encounter Care Teams Shirt Bander Relationship Specialty Start Date End Date Carlo Santana MD [address] [place] [address] PCP - General Internal Medicine 12/28/17 documented as of this encounter
--- OUTSIDE RECORDS SUMMARY | 2024-04-09 13:03 | XMS_ITS | Encounter Summary ---
Author Organization [employer] Address [address] [facility] 7 [place] [address] Care Team Providers Care Medical Claims Specialist Name Role Phone Carlo Santana MD Primary Care Provider [phone]- [phone] Reason for Visit * Reason Onset Date Comments r/s SANTHOSH RN APPT 03/21/2023 Encounter Details Date Type Department Care Team (Late st Contact Info) Description 03/21/2023 Telephone [facility] MEDICINE [address] [place] [address] Carlo Santana MD [address] [place] [address] r/s LEAD TRAINER RN APPT Social History Tobacco Use Types Packs/Day Years [...] * Telephone Encounter - Braden Cool - 03/21/2023 8:52 AM EST Tc from pt requesting to r/s LEAD TRAINER RN appt scheduled for 03/22/23. Appt has been cancelled. documented in this encounter Plan of Treatment Upcoming Encounters Date Type Department Care Team ([facility] st Contact Info) Description 05/31/2024 11:00 AM EDT Clinical Support [facility] MED & PEDS [address] [place] [address] 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, HUGO [address] [place] [address] documented as of this encounter Visit Diagnoses Not on filedocumented in this encounter Additional Health Concerns Assessment Noted Time PHQ-9 Depression Total Score: 3 06/04/19 23 3:42 PM EDT documented as of this encounter Care Teams Medical Claims Specialist Relationship Specialty Start Date End Date Carlo Santana MD [address] [place] [address] PCP - General Internal Medicine 12/28/17 documented as of this encounter
--- OUTSIDE RECORDS SUMMARY | 2024-04-09 13:03 | XMS_ITS | Encounter Summary ---
Author Organization [employer] Address [address] [place] [address] 7 [place] [address] Care Team Providers Care Wood Milling Machine Hand Name Role Phone Carlo Santana MD Primary Care Provider [phone]- [phone] Reason for Visit * Reason Onset Date Comments Med Refill 09/16/2022 Encounter Details Date Type Department Care Team ([facility] st Contact Info) Description 09/16/2022 Telephone [facility] MED & PEDS [address] [place] [address] Carlo Santana MD [address] [place] [address] Med Refill Social History Tobacco Use Types [...] * Telephone Encounter - Ashley Gavin - 09/16/2022 10:39 AM EDT Tc from pt requesting medication refill on oxyCODONE-acetaminophen (Percocet) 5- 325 MG tablet documented in this encounter Plan of Treatment Upcoming Encounters Date Type Department Care Team (Late st Contact Info) Description 05/31/2024 11:00 AM EDT Clinical Support [facility] MED & PEDS [address] [place] [address] 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, HUGO [address] [place] [address] documented as of this encounter Visit Diagnoses Not on filedocumented in this encounter Additional Health Concerns Assessment Noted Time PHQ-9 Depression Total Score: 3 06/04/19 23 3:42 PM EDT documented as of this encounter Care Teams Wood Milling Machine Hand Relationship Specialty Start Date End Date Carlo Santana MD [address] [place] [address] PCP - General Internal Medicine 12/28/17 documented as of this encounter
--- OUTSIDE RECORDS SUMMARY | 2024-04-09 13:03 | XMS_ITS | Encounter Summary ---
Author Organization [email or web address] Address [address] 7 [place] [address] Care Team Providers Care Canoe Maker Name Role Phone Carlo Santana MD Primary Care Provider +1- [phone] Reason for Visit * Reason Onset Date Comments Med Refill 11/02/2023 Encounter Details Date Type Department Care Team (Late st Contact Info) Description 11/02/2023 Telephone [facility] MEDICINE 230 [place] [address] Carlo Santana MD 505 [place], [place] [phone] Med Refill Social History Tobacco Use Types [...] * Telephone Encounter - Braden Cool - 11/03/2023 9:27 AM EDT Tc from pt requesting script for oxycodone to be sent to [facility] on file. * Telephone Encounter - Quan Mena - 11/02/2023 9:15 AM EDT Tc from pt stating oxyCODONE-acetaminophen (Percocet) 7.5-325 MG tablet was sent to the wrong pharmacy and was advised by the pharmacy to contact pcp to have script transferred to the right pharmacy.Pt is requesting to have script sent to [facility]. If any questions you can contact pt at [phone]. documented in this encounter Plan of Treatment Upcoming Encounters Date Type Department Care Team (Late st Contact Info) Description 05/31/2024 11:00 AM EDT Clinical Support [facility] MED & PEDS 505 [place] [address] 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, HUGO 505 [place] [address] documented as of this encounter Visit Diagnoses Not on filedocumented in this encounter Additional Health Concerns Assessment Noted Time PHQ-9 Depression Total Score: 3 06/04/19 23 3:42 PM EDT documented as of this encounter Care Teams Canoe Maker Relationship Specialty Start Date End Date Carlo Santana MD [address] [place] [address] PCP - General Internal Medicine 12/28/17 documented as of this encounter
--- OUTSIDE RECORDS SUMMARY | 2024-04-09 13:03 | XMS_ITS | Encounter Summary ---
Author Organization [employer] Address 75 [facility] 7 [place] [address] Care Team Providers Care Track Grinder Name Role Phone Carlo Santana MD Primary Care Provider +1- [phone] Reason for Visit * Reason Onset Date Comments Referral 12/01/2023 Encounter Details Date Type Department Care Team (Late st Contact Info) Description 12/01/2023 Telephone [facility] MEDICINE [address] [place] [address] Carlo Santana MD [address] [facility] [address] [place], [place] [address] Referral Social History Tobacco Use Types Packs/Day [...] * Telephone Encounter - Suyapa Santacruz - 12/05/2023 10:14 AM EDT Tc from pt requesting a referral to [facility]. Stated not satisfied with [facility]. Specialty: [facility] Behavioral Health - Adult Outpatient Address: [address] [place] [address] If any questions contact pt at [phone] * Telephone Encounter - Angel Luis Oreilly - 12/01/2023 10:34 AM EDT Tc from patient calling to request a referral for a therapist states has been waiting for a call back from [facility] and has not heard a response documented in this encounter Plan of Treatment Upcoming Encounters Date Type Department Care Team (Late st Contact Info) Description 05/31/2024 11:00 AM EDT Clinical Support [facility] MED & PEDS 505 [place] [address] 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, HUGO 505 [place] [address] documented as of this encounter Visit Diagnoses Not on filedocumented in this encounter Additional Health Concerns Assessment Noted Time PHQ-9 Depression Total Score: 3 06/04/19 3:42 PM EDT documented as of this encounter Care Teams Track Grinder Relationship Specialty Start Date End Date Carlo Santana MD [address] [place] [address] PCP - General Internal Medicine 12/28/17 documented as of this encounter
--- OUTSIDE RECORDS SUMMARY | 2024-04-09 13:03 | XMS_ITS | Encounter Summary ---
Author Organization [employer] Address [address] [place] [address] 7 [place] [address] Care Team Providers Care Wheelabrator Operator Name Role Phone Carlo Santana MD Primary Care Provider +1- [phone] Reason for Visit * Reason Onset Date Comments Appointment Request 11/08/2023 Encounter Details Date Type Department Care Team ([facility] st Contact Info) Description 11/08/2023 Telephone [facility] MED & PEDS 505 [place] [address] Carlo Santana MD 505 [place] [address] Appointment Request Social History Tobacco Use Types [...] * Telephone Encounter - Suyapa Santacruz - 11/08/2023 3:51 PM EDT Outgoing call to inform pt pre op has been r/s for 12/07/23 at 09:15AM with Vicente. No answer. No voicemail option. * Telephone Encounter - Maddie Han - 11/08/2023 1:27 PM EDT Tc from pt requesting to r/s pre op . Appt was not canceled due to call disconnecting. documented in this encounter Plan of Treatment Upcoming Encounters Date Type Department Care Team ([facility] st Contact Info) Description 05/31/2024 11:00 AM EDT Clinical Support [facility] MED & PEDS 505 [place] [address] 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 RN 505 [place] [address] documented as of this encounter Visit Diagnoses Not on filedocumented in this encounter Additional Health Concerns Assessment Noted Time PHQ-9 Depression Total Score: 3 06/04/19 23 3:42 PM EDT documented as of this encounter Care Teams Wheelabrator Operator Relationship Specialty Start Date End Date Carlo Santana MD [address] [place] [address] PCP - General Internal Medicine 12/28/17 documented as of this encounter
--- OUTSIDE RECORDS SUMMARY | 2024-04-09 13:03 | XMS_ITS | Encounter Summary ---
Author Organization [employer] Address 75 [facility] 7t [place] [address] Care Team Providers Care Children'S Service Supervisor Name Role Phone Carlo Santnaa MD Primary Care Provider +1- [phone] Encounter Details Date Type Department Care Team (Late st Contact Info) Description 11/02/2023 Orders Only [facility] 230 [place] [address] Carlo Santana MD [address] [place], [place] [phone] Chronic left-sided low back pain with left-sided [...] Upcoming Encounters Date Type Department Care Team ([facility] st Contact Info) Description 05/31/2024 11:00 AM EDT Clinical Support [facility] MED & PEDS 505 [place] [address] 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, HUGO 505 [place] [address] documented as of this encounter Visit Diagnoses Diagnosis Chronic left-sided low back pain with left-sided sciatica documented in this encounter Additional Health Concerns Assessment Noted Time PHQ-9 Depression Total Score: 3 06/04/19 23 3:42 PM EDT documented as of this encounter Care Teams Children'S Service Supervisor Relationship Specialty Start Date End Date Carlo Santana MD 505 [place] [address] PCP - General Internal Medicine 12/28/17 documented as of this encounter
--- OUTSIDE RECORDS SUMMARY | 2024-04-09 13:03 | XMS_ITS | Encounter Summary ---
Author Organization [employer] Address [address] [place] [address] Care Team Providers Care Clinical Neuropsychologist Name Role Phone Carlo Santana MD Primary Care Provider +1- [phone] Reason for Visit * Reason Comments Med Refill Encounter Details Date Type Department Care Team (Late Contact Info) Description 05/19/2022 Refill [facility] MED & PEDS 505 [place] [address] Servando Howard MD 505 [place] [address] Chronic left-sided low back pain with left-sided [...] Encounters Date Type Department Care Team (Late Contact Info) Description 05/31/2024 11:00 AM EDT Clinical Support [facility] MED & PEDS 505 [place] [address] 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 RN 505 [place], [place] [phone] documented as of this encounter Visit Diagnoses Diagnosis Chronic left-sided low back pain with left-sided sciatica documented in this encounter Care Teams Clinical Neuropsychologist Relationship Specialty Start Date End Date Carlo Santana MD [address] [place] [address] PCP - General Internal Medicine 12/28/17 documented as of this encounter
--- OUTSIDE RECORDS SUMMARY | 2024-04-09 13:03 | XMS_ITS | Encounter Summary ---
Author Organization [employer] Address [address] [facility] 7 [place] [address] Care Team Providers Care Family Law Attorney Name Role Phone Carlo Santana MD Primary Care Provider +1- [phone] Reason for Visit * Reason Onset Date Comments Med Refill 03/01/2023 Encounter Details Date Type Department Care Team ([facility] st Contact Info) Description 03/01/2023 Telephone [facility] MEDICINE 230 [place] [address] Carlo Santana MD [address] [facility] [facility] [address] [place], [place] [phone] Med Refill Social History Tobacco Use Types [...] * Telephone Encounter - Hien Jarquin - 03/01/2023 12:53 PM EST Tc from pt requesting med refill on oxyCODONE-acetaminophen (Percocet) 5-325 MG tablet [facility]/pharmacy #[id number] LE[place]HA PHILLIPS - [address] [facility] documented in this encounter Plan of Treatment Upcoming Encounters Date Type Department Care Team (Late st Contact Info) Description 05/31/2024 11:00 AM EDT Clinical Support [facility] MED & PEDS 505 [place] [address] 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, RN 505 [place] [address] documented as of this encounter Visit Diagnoses Not on filedocumented in this encounter Additional Health Concerns Assessment Noted Time PHQ-9 Depression Total Score: 3 06/04/19 23 3:42 PM EDT documented as of this encounter Care Teams Family Law Attorney Relationship Specialty Start Date End Date Carlo Santana MD 505 [place] [address] PCP - General Internal Medicine 12/28/17 documented as of this encounter
--- OUTSIDE RECORDS SUMMARY | 2024-04-09 13:03 | XMS_ITS | Encounter Summary ---
Author Organization [employer] Address [address] [place] [address] Care Team Providers Care Manager Nursing Name Role Phone Carlo Santana MD Primary Care Provider +1- [phone] Reason for Visit * Reason Comments Med Refill Encounter Details Date Type Department Care Team (Late Contact Info) Description 05/06/2022 Refill [facility] MED & PEDS [address] [place] [address] Servando Howard MD 505 [place] [address] Chronic left-sided low back pain with left-sided [...] [facility] MED [facility] PEDS [address] [place] [address] 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 RN 505 [place], [place] [phone] documented as of this encounter Visit Diagnoses Diagnosis Chronic left-sided low back pain with left-sided sciatica documented in this encounter Care Teams Manager Nursing Relationship Specialty Start Date End Date Carlo Santana MD [address] [place] [address] PCP - General Internal Medicine 12/28/17 documented as of this encounter
--- OUTSIDE RECORDS SUMMARY | 2024-04-09 13:03 | XMS_ITS | Encounter Summary ---
Author Organization [employer] Address [address] [facility] 7 [place] [address] Care Team Providers Care Line Installer Trolley Name Role Phone Carlo Santana MD Primary Care Provider +1- [phone] Reason for Visit * Reason Onset Date Comments Med Refill 11/01/2023 Encounter Details Date Type Department Care Team (Late st Contact Info) Description 11/01/2023 Telephone [facility] MEDICINE 230 [place] [address] Carlo Santana MD 505 [place], [place] [phone] Med Refill Social History Tobacco Use Types [...] Telephone Encounter - Angel Luis Oreilly - 11/01/2023 9:00 AM EDT TC from pt requesting medication refill. Medications needing refill : oxyCODONE-acetaminophen (Percocet) 7.5-325 MG tablet To be sent to: [facility]/pharmacy #[id number] [place] - [address] [facility] documented in this encounter Plan of Treatment Upcoming Encounters Date Type Department Care Team ([facility] st Contact Info) Description 05/31/2024 11:00 AM EDT Clinical Support [facility] MED & PEDS 505 [place] [address] 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, HUGO 505 [place] [address] documented as of this encounter Visit Diagnoses Not on filedocumented in this encounter Additional Health Concerns Assessment Noted Time PHQ-9 Depression Total Score: 3 06/04/19 23 3:42 PM EDT documented as of this encounter Care Teams Line Installer Trolley Relationship Specialty Start Date End Date Carlo Santana MD 505 [place] [address] PCP - General Internal Medicine 12/28/17 documented as of this encounter
--- OUTSIDE RECORDS SUMMARY | 2024-04-09 13:03 | XMS_ITS | Encounter Summary ---
Author Organization [employer] Address [address] [facility] 7 [place] [address] Care Team Providers Care Technical Data Analyst Name Role Phone Carlo Santana MD Primary Care Provider +1- [phone] Reason for Visit * Reason Onset Date Comments Med Refill 09/13/2022 Encounter Details Date Type Department Care Team (Late st Contact Info) Description 09/13/2022 Telephone [facility] MEDICINE 230 [place] [address] Carlo Santana MD 505 [place], [place] [phone] Med Refill Social History Tobacco Use Types [...] * Telephone Encounter - Braden Cool - 09/13/2022 8:55 AM EDT Tc from pt requesting a refill for oxycodone 5 mg , would like script sent to [facility] on file. documented in this encounter Plan of Treatment Upcoming Encounters Date Type Department Care Team ([facility] st Contact Info) Description 05/31/2024 11:00 AM EDT Clinical Support [facility] MED & PEDS 505 [place] [address] 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 RN 505 [place] [address] documented as of this encounter Visit Diagnoses Not on filedocumented in this encounter Additional Health Concerns Assessment Noted Time PHQ-9 Depression Total Score: 3 06/04/19 23 3:42 PM EDT documented as of this encounter Care Teams Technical Data Analyst Relationship Specialty Start Date End Date Carlo Santana MD [address] [place] [address] PCP - General Internal Medicine 12/28/17 documented as of this encounter
--- OUTSIDE RECORDS SUMMARY | 2024-04-09 13:03 | XMS_ITS | Encounter Summary ---
Author Organization [employer] Address [address] [place] [address] 7 [place] [address] Care Team Providers Care Piping Blocker Name Role Phone Carlo Santana MD Primary Care Provider +1- [phone] Reason for Visit * Reason Onset Date Comments Nurse Triage 11/09/2023 Encounter Details Date Type Department Care Team ([facility] st Contact Info) Description 11/09/2023 Telephone [facility] MED & PEDS 505 [place] [address] Carlo Santana MD 505 [place] [address] Nurse Triage Social History Tobacco Use Types [...] Telephone Encounter - Rosalina Armenta RN - 11/09/2023 10:28 AM EDT Triage call attempted x2. Phone went directly to fax line. Unable to leave message. * Telephone Encounter - Maddie Han - 11/09/2023 9:25 AM EDT Symptom: joint pain - Not From Injury Outcome: Schedule an appointment to be seen within 24 hours Reason: Caller denied all higher acuity questions The caller accepted this outcome documented in this encounter Plan of Treatment Upcoming Encounters Date Type Department Care Team (Late st Contact Info) Description 05/31/2024 11:00 AM EDT Clinical Support [facility] MED & PEDS 505 [place] [address] 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 RN 505 [place] [address] documented as of this encounter Visit Diagnoses Not on filedocumented in this encounter Additional Health Concerns Assessment Noted Time PHQ-9 Depression Total Score: 3 06/04/19 23 3:42 PM EDT documented as of this encounter Care Teams Piping Blocker Relationship Specialty Start Date End Date Carlo Santana MD [address] [place] [address] PCP - General Internal Medicine 12/28/17 documented as of this encounter
--- OUTSIDE RECORDS SUMMARY | 2024-04-09 13:03 | XMS_ITS | Encounter Summary ---
Author Organization [employer] Address 75 [facility] 7 [place] [address] Care Team Providers Care Director Clinical Information Services Name Role Phone Carlo Santana MD Primary Care Provider +1- [phone] Reason for Visit * Reason Onset Date Comments Med Refill 04/21/2023 Encounter Details Date Type Department Care Team (Late st Contact Info) Description 04/21/2023 Refill [facility] MEDICINE 230 [place] [address] Carlo Santana MD 505 [place], [place] [phone] Low back pain radiating down leg Social [...] Upcoming Encounters Date Type Department Care Team ([facility] st Contact Info) Description 05/31/2024 11:00 AM EDT Clinical Support [facility] MED & PEDS 505 [place] [address] 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 RN 505 [place] [address] documented as of this encounter Visit Diagnoses Diagnosis Low back pain radiating down leg documented in this encounter Additional Health Concerns Assessment Noted Time PHQ-9 Depression Total Score: 3 06/04/19 23 3:42 PM EDT documented as of this encounter Care Teams Director Clinical Information Services Relationship Specialty Start Date End Date Carlo Santana MD 505 [place] [address] PCP - General Internal Medicine 12/28/17 documented as of this encounter
--- OUTSIDE RECORDS SUMMARY | 2024-04-09 13:04 | XMS_ITS | Encounter Summary ---
Author Organization [employer] Address 75 [facility] 7 [place] [address] Care Team Providers Care Criminal Investigative Agent Name Role Phone Carlo Santana MD Primary Care Provider +1- [phone] Encounter Details Date Type Department Care Team (Late st Contact Info) Description 06/09/2023 Telephone [facility] MEDICINE 230 [place] [address] Carlo Santana MD [address] [facility] [address] [place], [place] [phone] Social History Tobacco Use Types Packs/Day Years [...] Upcoming Encounters Date Type Department Care Team ([facility] st Contact Info) Description 05/31/2024 11:00 AM EDT Clinical Support [facility] MED & PEDS 505 [place] [address] 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, RN 505 [place] [address] documented as of this encounter Visit Diagnoses Not on filedocumented in this encounter Additional Health Concerns Assessment Noted Time PHQ-9 Depression Total Score: 3 06/04/19 23 3:42 PM EDT documented as of this encounter Care Teams Criminal Investigative Agent Relationship Specialty Start Date End Date Carlo Santana MD 505 [place] [address] PCP - General Internal Medicine 12/28/17 documented as of this encounter
--- OUTSIDE RECORDS SUMMARY | 2024-04-09 13:04 | XMS_ITS | Encounter Summary ---
Author Organization [employer] Address 75 [facility] 7 [place] [address] Care Team Providers Care Dehydrator Operator Name Role Phone Carlo Santana MD Primary Care Provider +1- [phone] Reason for Visit * Reason Onset Date Comments Appointment Request 12/13/2023 Encounter Details Date Type Department Care Team ([facility] st Contact Info) Description 12/13/[address] [facility] MEDICINE 230 [place] [address] Carlo Santana MD [address] [facility] [address] [place], [place] [phone] Appointment Request Social History Tobacco Use Types [...] Telephone Encounter - Angel Luis Oreilly - 12/13/2023 2:29 PM EDT Tc from patient calling to cancel appt for 12/13 states would like to see the provider only documented in this encounter Plan of Treatment Upcoming Encounters Date Type Department Care Team (Late st Contact Info) Description 05/31/2024 11:00 AM EDT Clinical Support [facility] MED & PEDS 505 [place] [address] 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, HUGO 505 [place] [address] documented as of this encounter Visit Diagnoses Not on filedocumented in this encounter Additional Health Concerns Assessment Noted Time PHQ-9 Depression Total Score: 3 06/04/19 23 3:42 PM EDT documented as of this encounter Care Teams Dehydrator Operator Relationship Specialty Start Date End Date Carlo Santana MD 505 [place] [address] PCP - General Internal Medicine 12/28/17 documented as of this encounter
--- OUTSIDE RECORDS SUMMARY | 2024-04-09 13:04 | XMS_ITS | Encounter Summary ---
Author Organization [employer] Address [address] [place] [address] 7 [place] [address] Care Team Providers Care Oil House Attendant Name Role Phone Carlo Santana MD Primary Care Provider +1- [phone] Encounter Details Date Type Department Care Team ([facility] st Contact Info) Description 03/05/2024 Orders Only [facility] MED & PEDS 505 [place], [place] [phone] Carlo Santana MD 505 [place] [address] Social History Tobacco Use Types Packs/Day Years [...] Description 05/31/2024 11:00 AM EDT Clinical Support [facility] MED & PEDS 505 [place] [address] 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, HUGO 505 [place] [address] documented as of this encounter Visit Diagnoses Not on filedocumented in this encounter Additional Health Concerns Assessment Noted Time PHQ-9 Depression Total Score: 15 024 11:50 AM EST documented as of this encounter Care Teams Oil House Attendant Relationship Specialty Start Date End Date Carlo Santana MD 505 [place] [address] PCP - General Internal Medicine 12/28/17 documented as of this encounter
--- OUTSIDE RECORDS SUMMARY | 2024-04-09 13:04 | XMS_ITS | Encounter Summary ---
Author Organization [employer] Address 75 [facility] 7 [place] [address] Care Team Providers Care Equipment Tester Name Role Phone Carlo Santana MD Primary Care Provider +1- [phone] Reason for Visit * Reason Onset Date Comments Medication Question 05/06/2023 Encounter Details Date Type Department Care Team ([facility] st Contact Info) Description 05/06/[address] [facility] MEDICINE 230 [place] [address] Carlo Santana MD [address] [facility] [address] [place], [place] [phone] Medication Question Social History Tobacco Use Types [...] Telephone Encounter - Rand Savage RN - 05/10/2023 11:26 AM EST TC X1 to pt regarding message below. Unable to LVM as phone rang a few times and loud fax like noise sounded. Pt has appt on 05/12/23 and can discuss with PCP or return call PRN. * Telephone Encounter - Wing Romeo RN - 05/09/2023 3:21 PM EST Telephone call from pt who reported that Duloxetine medication worked at night but not during the day. Pt requests a higher dose of the medication. Pt did no elaborate on what symptoms she was havingduring the day. * Telephone Encounter - Angel Luis Oreilly - 05/06/2023 2:31 PM EST Tc from patient calling in regards to the medication DULoxetine (Cymbalta) [address] capsule patientstated it works very good at night but not during the day and was requesting a higher dosage documented in this encounter Plan of Treatment Upcoming Encounters Date Type Department Care Team (Late st Contact Info) Description 05/31/2024 11:00 AM EDT Clinical Support [facility] MED & PEDS 505 [place] [address] 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, HUGO 505 [place] [address] documented as of this encounter Visit Diagnoses Not on filedocumented in this encounter Additional Health Concerns Assessment Noted Time PHQ-9 Depression Total Score: 3 06/04/19 23 3:42 PM EDT documented as of this encounter Care Teams Equipment Tester Relationship Specialty Start Date End Date Carlo Santana MD 505 [place] [address] PCP - General Internal Medicine 12/28/17 documented as of this encounter
--- OUTSIDE RECORDS SUMMARY | 2024-04-09 13:04 | XMS_ITS | Encounter Summary ---
Author Organization [employer] Address [address] [facility] 7t [place] [address] Care Team Providers Care Furnace Loader Name Role Phone Carlo Santana MD Primary Care Provider +1- [phone] Reason for Visit * Reason Comments Med Change Request Encounter Details Date Type Department Care Team ([facility] st Contact Info) Description 12/20/2023 Refill [facility] WALK[facility]ENTER [address] [place] [address] Carlo Santana MD [address] [facility] [address] [place], [place] [id number] Hypoproteinemia (CMS/HCC) Social History Tobacco Use Types Packs/Day [...] Upcoming Encounters Date Type Department Care Team ([facility] st Contact Info) Description 05/31/2024 11:00 AM EDT Clinical Support [facility] MED & PEDS 505 [place] [address] 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 RN 505 [place] [address] documented as of this encounter Visit Diagnoses Diagnosis Hypoproteinemia (CMS/HCC) Other disorders of plasma protein metabolism documented in this encounter Additional Health Concerns Assessment Noted Time PHQ-9 Depression Total Score: 3 06/04/19 23 3:42 PM EDT documented as of this encounter Care Teams Furnace Loader Relationship Specialty Start Date End Date Carlo Santana MD 505 [place] [address] PCP - General Internal Medicine 12/28/17 documented as of this encounter
--- OUTSIDE RECORDS SUMMARY | 2024-04-09 13:04 | XMS_ITS | Encounter Summary ---
Author Organization [employer] Address [address] [facility] 7 [place] [address] Care Team Providers Care Head Resident Name Role Phone Carlo Santana MD Primary Care Provider +1- [phone] Reason for Visit * Reason Onset Date Comments Med Refill 11/28/2023 Encounter Details Date Type Department Care Team (Late st Contact Info) Description 11/28/[address] [facility] MEDICINE 230 [place] [address] Carlo Santana MD 505 [place], [place] [phone] Med Refill Social History Tobacco Use Types [...] * Telephone Encounter - Braden Cool - 11/28/2023 8:31 AM EDT Tc from pt requesting a refill for oxyCODONE-acetaminophen (Percocet) 7.5-325 MG tablet documented in this encounter Plan of Treatment Upcoming Encounters Date Type Department Care Team ([facility] st Contact Info) Description 05/31/2024 11:00 AM EDT Clinical Support [facility] MED & PEDS 505 [place] [address] 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 RN 505 [place] [address] documented as of this encounter Visit Diagnoses Not on filedocumented in this encounter Additional Health Concerns Assessment Noted Time PHQ-9 Depression Total Score: 3 06/04/19 23 3:42 PM EDT documented as of this encounter Care Teams Head Resident Relationship Specialty Start Date End Date Carlo Santana MD 505 [place] [address] PCP - General Internal Medicine 12/28/17 documented as of this encounter
--- OUTSIDE RECORDS SUMMARY | 2024-04-09 13:04 | XMS_ITS | Encounter Summary ---
Author Organization [employer] Address [address] [facility] 7 [place] [address] Care Team Providers Care Activity Coordinator Name Role Phone Carlo Santana MD Primary Care Provider +1- [phone] Reason for Visit * Reason Onset Date Comments Med Refill 10/14/2022 Encounter Details Date Type Department Care Team (Late st Contact Info) Description 10/14/2022 Telephone [facility] MEDICINE 230 [place] [address] Carlo Santana MD 505 [place], [place] [phone] Med Refill Social History Tobacco Use Types [...] * Telephone Encounter - Braden Cool - 10/14/2022 8:04 AM EDT Tc from pt requesting a med refill for oxyCODONE-acetaminophen (Percocet) 5-325 MG tablet documented in this encounter Plan of Treatment Upcoming Encounters Date Type Department Care Team (Late st Contact Info) Description 05/31/2024 11:00 AM EDT Clinical Support [facility] MED & PEDS 505 [place] [address] 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 RN 505 [place] [address] documented as of this encounter Visit Diagnoses Not on filedocumented in this encounter Additional Health Concerns Assessment Noted Time PHQ-9 Depression Total Score: 3 06/04/19 23 3:42 PM EDT documented as of this encounter Care Teams Activity Coordinator Relationship Specialty Start Date End Date Carlo Santana MD 505 [place] [address] PCP - General Internal Medicine 12/28/17 documented as of this encounter
--- OUTSIDE RECORDS SUMMARY | 2024-04-09 13:04 | XMS_ITS | Encounter Summary ---
Author Organization [employer] Address [address] [facility] 7t [place] [address] Care Team Providers Care Pilates Instructor Name Role Phone Carlo Santana MD Primary Care Provider +1- [phone] Encounter Details Date Type Department Care Team (Late st Contact Info) Description 12/20/2023 Orders Only [facility] WALK-IN CENTER 230 [place] [address] Carlo Santana MD [address] [facility] [address] [place], [place] [phone] Hypoproteinemia (CMS/HCC) (Primary Dx) Social History Tobacco Use [...] [facility] 505 [place] [address] 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, HUGO 505 [place] [address] documented as of this encounter Visit Diagnoses Diagnosis Hypoproteinemia (CMS/HCC)- Primary Other disorders of plasma protein metabolism documented in this encounter Additional Health Concerns Assessment Noted Time PHQ-9 Depression Total Score: 3 06/04/19 23 3:42 PM EDT documented as of this encounter Care Teams Pilates Instructor Relationship Specialty Start Date End Date Carlo Santana MD 505 [place] [address] PCP - General Internal Medicine 12/28/17 documented as of this encounter
--- OUTSIDE RECORDS SUMMARY | 2024-04-09 13:04 | XMS_ITS | Encounter Summary ---
Author Organization [employer] Address [address] [place] [address] 7 [place] [address] Care Team Providers Care Guitar Maker Name Role Phone Carlo Santana MD Primary Care Provider +1- [phone] Reason for Visit * Reason Comments Med Change Request Encounter Details Date Type Department Care Team ([facility] Contact Info) Description 06/21/2022 Refill [facility] MED & PEDS 505 [place] [address] Carlo Santana MD 505 [place] [address] Chronic left-sided low back pain with left-sided [...] suspected to have Coronavirus/COVID-19? No / Unsure 06/03/2022 2:39 PM EDT documented as of this encounter Miscellaneous Notes * Telephone Encounter - Servando Jones MD - 07/05/2022 6:42 PM EDT Please notify shoulder xray results - left shoulder was unremarkable - right shoulder shows loose bodies (which usually results from injury to the articular cartilage) vs hydroxyapatite deposition disease which can cause inflamation at the joint, will refer to ortho documented in this encounter Plan of Treatment Upcoming Encounters Date Type Department Care Team (Late st Contact Info) Description 05/31/2024 11:00 AM EDT Clinical Support [facility] MED & PEDS 505 [place] [address] 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, RN 505 [place] [address] documented as of this encounter Visit Diagnoses Diagnosis Chronic left-sided low back pain with left-sided sciatica documented in this encounter Additional Health Concerns Assessment Noted Time PHQ-9 Depression Total Score: 3 06/04/19 23 3:42 PM EDT documented as of this encounter Care Teams Guitar Maker Relationship Specialty Start Date End Date Carlo Santana MD 505 [place] [address] PCP - General Internal Medicine 12/28/17 documented as of this encounter
--- OUTSIDE RECORDS SUMMARY | 2024-04-09 13:04 | XMS_ITS | Encounter Summary ---
Author Organization [employer] Address 75 [facility] 7 [place] [address] Care Team Providers Care Hotel Recreational Facilities Manager Name Role Phone Carlo Santana MD Primary Care Provider +1- [phone] Reason for Visit * Reason Onset Date Comments Nurse Triage 11/22/2023 Encounter Details Date Type Department Care Team (Late st Contact Info) Description 11/22/2023 Telephone [facility] MEDICINE 230 [place] [address] Carlo Santana MD [address] [facility] [address] [place], [place] [phone] Nurse Triage Social History Tobacco Use Types [...] Telephone Encounter - Rand Savage RN - 11/24/2023 4:19 PM EDT Noted. * Telephone Encounter - Roberta Reid LPN - 11/22/2023 1:49 PM EDT Triage call returned to patient who reports onset of new pain on left side from hip to knee and also severe pain in heel. Patient reports that all previous issues have been right sided. No recent accident or injury, did have a fall several weeks ago but reports that pain on left side was present prior. Current meds for pain per patient really are not doing much. Has discussed meds with PCP previously. Patient due for back surgery on 01/04/24 and has preop appt. Scheduled with . Date and time reminded. Patient with heel pain that feels like you stood on it too long. No redness reported. Patient advised of PCP schedule for new pain evaluation of heel and left leg. Is unable to cometo appts as offered as due to pain. Disposition reviewed and patient in agreement with plan. Team tasked to update PCP on patient concern and follow with patient as indicated. Reviewed with patient home care recommendations, reasons to call back and symptoms that require immediate evaluation in UC or ER. Pt verbalized understanding and agrees. Multiple (2) protocols were used on this call. Disposition for Call: Discuss with PCP and Callback by Nurse Today Protocol Used: Foot Pain (Adult) Protocol-Based Disposition: See in Office or Video Visit within 3 Days Override (Final) Disposition: Discuss with PCP and Callback by Nurse Today Override Reason: Caller refused suggested disposition Video visit not offered Positive Triage Question: * Moderate pain (e.g., interferes with normal activities, limping) and present > 3 days * All higher-acuity triage questions were negative Care Advice Discussed: * Foot Pain - Aggravating Factors * Pain Medicines * Reasons To Call Back - Swelling, redness, or fever occur - Severe pain not relieved by pain medicine - Pain lasts over 7 days - You become worse Protocol Used: Leg Pain (Adult) Protocol-Based Disposition: See in Office or Video Visit within 3 Days Video visit not offered Positive Triage Question: * Moderate pain (e.g., interferes with normal activities, limping) and present > 3 days * All higher-acuity triage questions were negative Care Advice Discussed: * Pain Medicines * Reasons To Call Back - Moderate pain (such as limping) lasts more than 3 days - Mild pain lasts more than 7 days - Signs of infection occur (such as spreading redness, warmth, fever) - You become worse * Rest * Pain Medicines * Reasons To Call Back - You become worse * Telephone Encounter - Braden Cool - 11/22/2023 1:25 PM EDT Symptom: Leg Pain - Not From Injury Outcome: Schedule an urgent appointment (within 1 hour) or talk to a nurse or provider soon Reason: Severe pain now The caller accepted this outcome Please contact at [phone] documented in this encounter Plan of Treatment Upcoming Encounters Date Type Department Care Team (Late st Contact Info) Description 05/31/2024 11:00 AM EDT Clinical Support [facility] MED & PEDS 505 [place] [address] 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, RN 505 [place] [address] documented as of this encounter Visit Diagnoses Not on filedocumented in this encounter Additional Health Concerns Assessment Noted Time PHQ-9 Depression Total Score: 3 06/04/19 23 3:42 PM EDT documented as of this encounter Care Teams Hotel Recreational Facilities Manager Relationship Specialty Start Date End Date Carlo Santana MD 505 [place] [address] PCP - General Internal Medicine 12/28/17 documented as of this encounter
--- OUTSIDE RECORDS SUMMARY | 2024-04-09 13:04 | XMS_ITS | Encounter Summary ---
Author Organization [employer] Address [address] [place] [address] 7 [place] [address] Care Team Providers Care Shaker Plate Operator Name Role Phone Carlo Santana MD Primary Care Provider +1- [phone] Reason for Visit * Reason Onset Date Comments Nurse Triage 12/20/2023 Encounter Details Date Type Department Care Team ([facility] st Contact Info) Description 12/20/2023 Telephone [facility] CHC MED & PEDS 505 [place] [address] Carlo Santana MD 505 [place] [address] Nurse Triage Social History Tobacco Use Types [...] encounter Miscellaneous Notes * Telephone Encounter - Carlo Santana MD - 12/22/2023 11:15 AM EDT Thank you for your help. * Telephone Encounter - Carlo Santana MD - 12/21/2023 10:34 PM EDT Please reach out to this patient and see how you can assist her * Telephone Encounter - Carlo Santana MD - 12/21/2023 10:33 PM EDT Please reach out to this patient and find out how you can assist her * Telephone Encounter - 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 RN - 12/21/2023 9:39 AM EDT Pt asking to speak with KELSEY, states she never got a call back. Asking to directly speak with Sheila Almeida. Pt states she met with her in the past, really liked her and would like to speak with her again. Can you please f/u? Ty! * Telephone Encounter - Louise Rosenberg RN - 12/20/2023 10:43 AM EDT called pt to triage, spoke to pt. pt states seen on 12/15 for persistent diarrhea x1 month. pt states is not improving and requesting another appt. looking in the chart, pt had blood work as well as stool samples and not all back for review. pt denies worsening, fevers, abdominal pain, vomiting, or other associated symptoms. pt reports loose/watery diarrhea up to 10 times daily. advised home care:rest, fluids, gatorade, lie down, monitor symptoms, light diet, avoid dairy for now, and call back if worsening or new concerns. will task to team nurses to follow up as needed per PCP. pt will keep next follow up appt and call back as needed. insurance verified. Protocol Used: Diarrhea (Adult) Protocol-Based Disposition: Home Care Positive Triage Question: * Severe diarrhea (e.g., 7 or more times / day more than normal) * All higher-acuity triage questions were negative Care Advice Discussed: * Reassurance and Education - Diarrhea * Fluid Therapy During Severe Diarrhea * Food and Nutrition During Severe Diarrhea * Wash Your Hands * Reasons To Call Back - Signs of dehydration occur (such as no urine over 12 hours, very dry mouth, lightheaded, etc.) - Severe diarrhea lasts more than a day - Diarrhea lasts over 7 days - You become worse * Telephone Encounter - Suyapa Santacruz - 12/20/2023 9:14 AM EDT Symptom: Diarrhea Outcome: Schedule an appointment to be seen within 24 hours Reason: Caller denied all higher acuity questions The caller accepted this outcome. Pt was seen same day care on 12/15. Reported symptoms have not improved and is requesting an urgentappointment. Contact pt at [phone] documented in this encounter Plan of Treatment Upcoming Encounters Date Type Department Care Team (Late st Contact Info) Description 05/31/2024 11:00 AM EDT Clinical Support [facility] MED & PEDS 505 [place] [address] 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, HUGO 505 [place] [address] documented as of this encounter Visit Diagnoses Not on filedocumented in this encounter Additional Health Concerns Assessment Noted Time PHQ-9 Depression Total Score: 3 06/04/19 23 3:42 PM EDT documented as of this encounter Care Teams Shaker Plate Operator Relationship Specialty Start Date End Date Carlo Santana MD 505 [place] [address] PCP - General Internal Medicine 12/28/17 documented as of this encounter
--- OUTSIDE RECORDS SUMMARY | 2024-04-09 13:04 | XMS_ITS | Encounter Summary ---
Author Organization [employer] Address [address] [facility] 7 [place] [address] Care Team Providers Care Patent Examiner Name Role Phone Carlo Santana MD Primary Care Provider +1- [phone] Encounter Details Date Type Department Care Team (Late st Contact Info) Description 04/21/2023 Telephone [facility] MEDICINE [address] [place] [address] Carlo Santana MD [address] [facility] [address] [place], [place] [phone] Social History Tobacco Use Types Packs/Day Years [...] 05/31/2024 11:00 AM EDT Clinical Support [facility] MED & PEDS 505 [place] [address] 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, RN 505 [place] [address] documented as of this encounter Visit Diagnoses Not on filedocumented in this encounter Additional Health Concerns Assessment Noted Time PHQ-9 Depression Total Score: 3 06/04/19 23 3:42 PM EDT documented as of this encounter Care Teams Patent Examiner Relationship Specialty Start Date End Date Carlo Santana MD 505 [place] [address] PCP - General Internal Medicine 12/28/17 documented as of this encounter
--- OUTSIDE RECORDS SUMMARY | 2024-04-09 13:04 | XMS_ITS | Encounter Summary ---
Author Organization [employer] Address [address] [place] [address] Care Team Providers Care Inspector Scales Name Role Phone Carlo Santana MD Primary Care Provider +1- [phone] Reason for Visit * Reason Comments Med Refill Encounter Details Date Type Department Care Team (Late Contact Info) Description 10/28/2022 Refill [facility] MED & PEDS [address] [place] [address] Carlo Santana MD 505 [place] [address] Muscle spasm Social History Tobacco Use Types [...] 05/31/2024 11:00 AM EDT Clinical Support [facility] MED & PEDS 505 [place] [address] 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, HUGO 505 [place] [address] documented as of this encounter Visit Diagnoses Diagnosis Muscle spasm Spasm of muscle documented in this encounter Additional Health Concerns Assessment Noted Time PHQ-9 Depression Total Score: 3 06/04/19 23 3:42 PM EDT documented as of this encounter Care Teams Inspector Scales Relationship Specialty Start Date End Date Carlo Santana MD 505 [place] [address] PCP - General Internal Medicine 12/28/17 documented as of this encounter
--- OUTSIDE RECORDS SUMMARY | 2024-04-09 13:04 | XMS_ITS | Encounter Summary ---
Author Organization [employer] Address [address] [facility] 7 [place] [address] Care Team Providers Care Band Tier Name Role Phone Carlo Santana MD Primary Care Provider +1- [phone] Reason for Visit * Reason Comments Med Refill Encounter Details Date Type Department Care Team ([facility] st Contact Info) Description 06/20/2022 Refill [facility] MEDICINE 230 [place] [address] Carlo Santana MD 505 [place], [place] [phone] Chronic left-sided low back pain with left-sided [...] 05/31/2024 11:00 AM EDT Clinical Support [facility] MED & PEDS 505 [place] [address] 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, RN 505 [place] [address] documented as of this encounter Visit Diagnoses Diagnosis Chronic left-sided low back pain with left-sided sciatica documented in this encounter Additional Health Concerns Assessment Noted Time PHQ-9 Depression Total Score: 3 06/04/19 3:42 PM EDT documented as of this encounter Care Teams Band Tier Relationship Specialty Start Date End Date Carlo Santana MD 505 [place] [address] PCP - General Internal Medicine 12/28/17 documented as of this encounter
--- OUTSIDE RECORDS SUMMARY | 2024-04-09 13:04 | XMS_ITS | Encounter Summary ---
Author Organization [employer] Address [address] [facility] 7 [place] [address] Care Team Providers Care Linux Admin Engineer Name Role Phone Carlo Santana MD Primary Care Provider +1- [phone] Reason for Visit * Reason Onset Date Comments Med Refill 11/03/2022 Encounter Details Date Type Department Care Team ([facility] st Contact Info) Description 11/03/2022 Telephone [facility] MEDICINE [address] [place] [address] Carlo Santana MD 505 [place], [place] [phone] Med Refill Social History Tobacco Use Types [...] * Telephone Encounter - Braden Cool - 11/03/2022 8:10 AM EDT Tc from pt requesting a new script for glucose meter. Please contact at [phone] documented in this encounter Plan of Treatment Upcoming Encounters Date Type Department Care Team ([facility] st Contact Info) Description 05/31/2024 11:00 AM EDT Clinical Support [facility] MED & PEDS 505 [place] [address] 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 RN 505 [place] [address] documented as of this encounter Visit Diagnoses Not on filedocumented in this encounter Additional Health Concerns Assessment Noted Time PHQ-9 Depression Total Score: 3 06/04/19 23 3:42 PM EDT documented as of this encounter Care Teams Linux Admin Engineer Relationship Specialty Start Date End Date Carlo Santana MD [address] [place] [address] PCP - General Internal Medicine 12/28/17 documented as of this encounter
--- OUTSIDE RECORDS SUMMARY | 2024-04-09 13:04 | XMS_ITS | Encounter Summary ---
Author Organization [employer] Address [address] [place] [address] 7 [place] [address] Care Team Providers Care Refinery Technician Name Role Phone Carlo Santana MD Primary Care Provider +1- [phone] Reason for Visit * Reason Onset Date Comments Durable Medical Equipment 12/23/2023 Encounter Details Date Type Department Care Team ([facility] st Contact Info) Description 12/23/2023 Telephone [facility] MED & PEDS [address] [place] [address] Carlo Santana MD 505 [place] [address] Durable Medical Equipment Social History Tobacco Use Types Packs/Day Years [...] Telephone Encounter - Kallie Mayorga LPN - 12/27/2023 9:33 AM EDT Rx generated and faxed to [facility] * Telephone Encounter - Suyapa Santacruz - 12/23/2023 11:58 AM EDT Tc from pt requesting DME. Adult pull ups size small If any questions contact pt at [phone] documented in this encounter Plan of Treatment Upcoming Encounters Date Type Department Care Team ([facility] st Contact Info) Description 05/31/2024 11:00 AM EDT Clinical Support [facility] MED & PEDS [address] [place] [address] 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, HUGO 505 [place] [address] documented as of this encounter Visit Diagnoses Diagnosis Chronic left-sided low back pain with left-sided sciatica documented in this encounter Additional Health Concerns Assessment Noted Time PHQ-9 Depression Total Score: 3 06/04/19 23 3:42 PM EDT documented as of this encounter Care Teams Refinery Technician Relationship Specialty Start Date End Date Carlo Santana MD 505 [place] [address] PCP - General Internal Medicine 12/28/17 documented as of this encounter
--- OUTSIDE RECORDS SUMMARY | 2024-04-09 13:04 | XMS_ITS | Encounter Summary ---
Author Organization [employer] Address 75 [facility] 7 [place] [address] Care Team Providers Care Exercise Science Instructor Name Role Phone Carlo Santana MD Primary Care Provider +1- [phone] Reason for Visit * Reason Onset Date Comments Call Back Request 06/09/2023 Encounter Details Date Type Department Care Team ([facility] st Contact Info) Description 06/09/2023 Telephone [facility] MEDICINE [address] [place] [address] Carlo Santana MD [address] [place], [place] [phone] Call Back Request Social History Tobacco Use [...] * Telephone Encounter - Hien Jarquin - 06/09/2023 8:20 AM EDT Tc from pt requesting a call back, music writer ask pt if wanted to r/s appt but pt sated I wanted to talk about it documented in this encounter Plan of Treatment Upcoming Encounters Date Type Department Care Team (Late st Contact Info) Description 05/31/2024 11:00 AM EDT Clinical Support [facility] MED & PEDS 505 [place] [address] 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, HUGO 505 [place] [address] documented as of this encounter Visit Diagnoses Not on filedocumented in this encounter Additional Health Concerns Assessment Noted Time PHQ-9 Depression Total Score: 3 06/04/19 23 3:42 PM EDT documented as of this encounter Care Teams Exercise Science Instructor Relationship Specialty Start Date End Date Carlo Santana MD 505 [place] [address] PCP - General Internal Medicine 12/28/17 documented as of this encounter
--- OUTSIDE RECORDS SUMMARY | 2024-04-09 13:04 | XMS_ITS | Encounter Summary ---
Author Organization [employer] Address [address] [place] [address] 7 [place] [address] Care Team Providers Care Lathe Sander Name Role Phone Carlo Santana MD Primary Care Provider +1- [phone] Encounter Details Date Type Department Care Team ([facility] st Contact Info) Description 12/21/2023 Orders Only [facility] MED & PEDS [address] [place], [place] [phone] Carlo Santana MD 505 [place], [place] [phone] Hypoproteinemia (CMS/HCC) (Primary Dx); Diarrhea, unspecified type Social History Tobacco Use Types Packs/Day Years [...] Upcoming Encounters Date Type Department Care Team ([facility] st Contact Info) Description 05/31/2024 11:00 AM EDT Clinical Support [facility] MED & PEDS 505 [place] [address] 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 RN 505 [place] [address] documented as of this encounter Procedures Procedure Name Priority Date/Time Associated Diagnosis Comments GASTROINTESTINAL PANEL Routine 5:33 PM EDT Diarrhea, unspecified type documented in this encounter Results * Gastrointestinal panel (aka ova & parasites) (12/24/2023 5:33 PM EDT) Campylobacter Not Detected Not Detect. [facility] Plesiomonas shigelloides Not Detected Not Detect. [facility] Salmonella Not Detected Not Detect. [facility] Vibrio Not Detected Not Detect. [facility] Vibrio cholerae Not Detected Not Detect. [facility] YERSINIA ENTEROCOLITICA Not Detected Not Detect. [facility] Enteroaggregative E. coli (EAEC) Not Detected Not Detect. [facility] Enteropathogenic E. coli (EPEC) Not Detected Not Detect. [facility] Enterotoxigenic E. coli (ETEC) lt/st Not Detected Not Detect. [facility] Shiga-like toxin-producing E. coli (STEC) stx1/stx2 Not Detected Not Detect. [facility] E coli O157 Not applicable Not Detect. [facility] Comment:E. coli containing t he O157 antigen are a subset ofShiga-like toxin- producing E. coli (STEC). Shigella/Enteroinvasive E. coli (EIEC) Not Detected Not Detect. [facility] Cryptosporidium Not Detected Not Detect. [facility] Cyclospora cayetanensis Not Detected Not Detect. [facility] Entamoeba histolytica Not Detected Not Detect. [facility] Giardia lamblia Not Detected Not Detect. [facility] Adenovirus F 40/41 Not Detected Not Detect. [facility] Astrovirus Not Detected Not Detect. [facility] Norovirus GI/GII Not Detected Not Detect. [facility] Rotavirus A Not Detected Not Detect. [facility] Sapovirus Not Detected Not Detect. [facility] Comment: All results must be correlated with clinical findings.Negative results do not exclude the possibility ofgastrointestinal infection and should not be used as thesole basis for diagnosis, treatment, or other managementdecisions. Virus, bacteria, and parasite nucleic acid maypersist in vivo independently of organism viability.Additionally, some organisms may be carried symptomatically.Detection of organism targets does not imply that thecorresponding organisms are infectious or are the causativeagents for clinical symptoms. There is a risk of falsenegative values due to the presence of sequence variants inthe gene targets of the assay, amplification inhibitors inspecimens, or inadequate numbers of organisms foramplification.The identification of several diarrheagenic E. colipathotypes has historically relied upon phenotypiccharacteristics. This panel targets genetic determinantscharacteristic of most pathogenic strains, but may notdetect all strains having phenotypic characteristics of apathotype.The performance of this test has not been established formonitoring treatment of infection with any of the panelorganisms.This assay is performed by Multiplexed PCR, utilizing [employer] Array. Stool Rectal contents / Unknown 12/24/2023 5:33 PM EDT 12/27/2023 12:21 PM EDT Carlo Santana MD LAB MICROBIOLOGY - GENERAL ORDERABLES Final Result [facility] [address] [place] [address] [phone] documented in this encounter Visit Diagnoses Diagnosis Hypoproteinemia (CMS/HCC)- Primary Other disorders of plasma protein metabolism Diarrhea, unspecified type documented in this encounter Additional Health Concerns Assessment Noted Time PHQ-9 Depression Total Score: 3 06/04/19 23 3:42 PM EDT documented as of this encounter Care Teams Lathe Sander Relationship Specialty Start Date End Date Carol Santana MD [address] [place] [address] PCP - General Internal Medicine 12/28/17 documented as of this encounter
--- OUTSIDE RECORDS SUMMARY | 2024-04-09 13:04 | XMS_ITS | Encounter Summary ---
Author Organization [email or web address] Address 75 [facility] 7 [place] [address] Care Team Providers Care Soft Sugar Operator Head Name Role Phone Carlo Santana MD Primary Care Provider +1- [phone] Reason for Visit * Reason Onset Date Comments Med Management 12/21/2023 Encounter Details Date Type Department Care Team (Late st Contact Info) Description 12/21/2023 Telephone [facility] MEDICINE [address] [place] [address] Carlo Santana MD [address] [place], [place] [phone] Med Management Social History Tobacco Use Types Packs/Day Years [...] * Telephone Encounter - Олег Neil - 12/21/2023 1:34 PM EDT Tc from pt wantted to inform has 29 pills left of her oxyCODONE-acetaminophen (Percocet) 7.5-325 MGtablet documented in this encounter Plan of Treatment Upcoming Encounters Date Type Department Care Team (Late st Contact Info) Description 05/31/2024 11:00 AM EDT Clinical Support [facility] CH[facility] MED & PEDS [address] [place] [address] 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, HUGO 505 [place] [address] documented as of this encounter Visit Diagnoses Not on filedocumented in this encounter Additional Health Concerns Assessment Noted Time PHQ-9 Depression Total Score: 3 06/04/19 23 3:42 PM EDT documented as of this encounter Care Teams Soft Sugar Operator Head Relationship Specialty Start Date End Date Carlo Santana MD 505 [place] [address] PCP - General Internal Medicine 12/28/17 documented as of this encounter
--- OUTSIDE RECORDS SUMMARY | 2024-04-09 13:04 | XMS_ITS | Encounter Summary ---
Author Organization [employer] Address [address] [place] [address] 7 [place] [address] Care Team Providers Care Mold Making Plastics Sheets Supervisor Name Role Phone Carlo Santana MD Primary Care Provider +1- [phone] Reason for Visit * Reason Comments Med Refill Encounter Details Date Type Department Care Team ([facility] Contact Info) Description 06/20/2022 Refill [facility] MED & PEDS 505 [place] [address] Servando Howard MD 505 [place] [address] Social History Tobacco Use Types Packs/Day Years [...] [facility] MED & PEDS [address] [place] [address] 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, HUGO 505 [place] [address] documented as of this encounter Visit Diagnoses Not on filedocumented in this encounter Additional Health Concerns Assessment Noted Time PHQ-9 Depression Total Score: 3 06/04/19 23 3:42 PM EDT documented as of this encounter Care Teams Mold Making Plastics Sheets Supervisor Relationship Specialty Start Date End Date Carlo Santana MD 505 [place] [address] PCP - General Internal Medicine 12/28/17 documented as of this encounter
--- OUTSIDE RECORDS SUMMARY | 2024-04-09 13:04 | XMS_ITS | Encounter Summary ---
Author Organization [employer] Address [address] [place] [address] Care Team Providers Care Dispatch Specialist Name Role Phone Carlo Santana MD Primary Care Provider +1- [phone] Reason for Visit * Reason Onset Date Comments Med Refill 10/28/2022 Encounter Details Date Type Department Care Team ([facility] st Contact Info) Description 10/28/2022 Telephone [facility] CH[facility] MED & PEDS 505 [place] [address] Carlo Santana MD 505 [place] [address] Med Refill Social History Tobacco Use Types [...] * Telephone Encounter - Ashley Gavin - 10/28/2022 8:53 AM EDT Tc from pt requesting medication refill on celecoxib (CeleBREX) 200 MG capsule. Pt is also stating that she was told by PCP lidocaine (Xylocaine) 5 % ointment can be refilled every week and pharmacy will not fill her rx until next week. documented in this encounter Plan of Treatment Upcoming Encounters Date Type Department Care Team (Late st Contact Info) Description 05/31/2024 11:00 AM EDT Clinical Support [facility] MED & PEDS 505 [place] [address] 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, RN 505 [place] [address] documented as of this encounter Visit Diagnoses Not on filedocumented in this encounter Additional Health Concerns Assessment Noted Time PHQ-9 Depression Total Score: 3 06/04/19 23 3:42 PM EDT documented as of this encounter Care Teams Dispatch Specialist Relationship Specialty Start Date End Date Carlo Santana MD 505 [place] [address] PCP - General Internal Medicine 12/28/17 documented as of this encounter
--- OUTSIDE RECORDS SUMMARY | 2024-04-09 13:04 | XMS_ITS | Encounter Summary ---
Author Organization [employer] Address [address] [place] [address] 7 [place] [address] Care Team Providers Care Apple Thinner Name Role Phone Carlo Santana MD Primary Care Provider +1- [phone] Reason for Visit * Reason Comments Med Refill Encounter Details Date Type Department Care Team ([facility] Contact Info) Description 12/19/2023 Refill [facility] MED & PEDS 505 [place] [address] Carlo Santana MD 505 [place] [address] Diarrhea, unspecified type Social History Tobacco Use [...] [facility] 505 [place] [address] 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, HUGO 505 [place] [address] documented as of this encounter Visit Diagnoses Diagnosis Diarrhea, unspecified type documented in this encounter Additional Health Concerns Assessment Noted Time PHQ-9 Depression Total Score: 3 06/04/19 23 3:42 PM EDT documented as of this encounter Care Teams Apple Thinner Relationship Specialty Start Date End Date Carlo Santana MD 505 [place] [address] PCP - General Internal Medicine 12/28/17 documented as of this encounter
--- OUTSIDE RECORDS SUMMARY | 2024-04-09 13:04 | XMS_ITS | Encounter Summary ---
Author Organization [employer] Address 75 [facility] 7 [place] [address] Care Team Providers Care Tree Feller Name Role Phone Carlo Santana MD Primary Care Provider +1- [phone] Reason for Visit * Reason Onset Date Comments Referral 12/20/2023 Encounter Details Date Type Department Care Team (Late st Contact Info) Description 12/20/2023 Telephone [facility] MEDICINE [address] [place] [address] Carlo Santana MD [address] [place], [place] [phone] Referral Social History Tobacco Use Types Packs/Day [...] * Telephone Encounter - Edna Espinal - 12/20/2023 4:41 PM EDT TC to Dr. Blanchard office and verified fax number. Referral re-faxed today to their office at [phone], Attn: Aundrea. * Telephone Encounter - Braden Cool - 12/20/2023 4:09 PM EDT Tc from pt requesting for referral [facility] to be updated , states facility will not accept insurance due to not having a begin and end date, pt stated they are scheduled for 12/27/23 @. Please contact at [phone] documented in this encounter Plan of Treatment Upcoming Encounters Date Type Department Care Team ([facility] st Contact Info) Description 05/31/2024 11:00 AM EDT Clinical Support [facility] MED & PEDS 505 [place] [address] 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, HUGO 505 [place] [address] documented as of this encounter Visit Diagnoses Not on filedocumented in this encounter Additional Health Concerns Assessment Noted Time PHQ-9 Depression Total Score: 3 06/04/19 23 3:42 PM EDT documented as of this encounter Care Teams Tree Feller Relationship Specialty Start Date End Date Carlo Santana MD 505 [place] [address] PCP - General Internal Medicine 12/28/17 documented as of this encounter
--- OUTSIDE RECORDS SUMMARY | 2024-04-09 13:04 | XMS_ITS | Encounter Summary ---
Author Organization [employer] Address 75 [facility] 7 [place] [address] Care Team Providers Care Senior Risk Analyst Name Role Phone Carlo Santana MD Primary Care Provider +1- [phone] Reason for Visit * Reason Onset Date Comments Results 12/19/2023 Encounter Details Date Type Department Care Team (Late st Contact Info) Description 12/19/2023 Telephone [facility] MEDICINE [address] [place] [address] Carlo Santana MD [address] [place], [place] [phone] Results Social History Tobacco Use Types Packs/Day [...] Telephone Encounter - Angel Luis Oreilly - 12/19/2023 11:59 AM EDT TC from pt requesting call back regarding Results. Type of results: Labs Date when done: 12/15 Facility: [facility] documented in this encounter Plan of Treatment Upcoming Encounters Date Type Department Care Team (Late st Contact Info) Description 05/31/2024 11:00 AM EDT Clinical Support [facility] MED & PEDS 505 [place] [address] 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 RN 505 [place] [address] documented as of this encounter Visit Diagnoses Not on filedocumented in this encounter Additional Health Concerns Assessment Noted Time PHQ-9 Depression Total Score: 3 06/04/19 23 3:42 PM EDT documented as of this encounter Care Teams Senior Risk Analyst Relationship Specialty Start Date End Date Carlo Santana MD 505 [place] [address] PCP - General Internal Medicine 12/28/17 documented as of this encounter
--- OUTSIDE RECORDS SUMMARY | 2024-04-09 13:05 | XMS_ITS | Encounter Summary ---
Author Organization [employer] Address [address] [place] [address] 7 [place] [address] Care Team Providers Care Sheet Metal Shop Helper Name Role Phone Carlo Santana MD Primary Care Provider +1- [phone] Reason for Visit * Reason Onset Date Comments Med Refill 10/18/2022 Encounter Details Date Type Department Care Team ([facility] st Contact Info) Description 10/18/2022 Telephone [facility] CHC MED & PEDS [address] [place] [address] Carlo Santana MD [address] [place] [address] Med Refill Social History Tobacco Use Types [...] * Telephone Encounter - Jaylen Thibodeaux - 10/18/2022 4:03 PM EDT Tc from pt requesting status on script. Please contact at [phone] * Telephone Encounter - Avelina Brown - 10/18/2022 8:27 AM EDT Tc from patient requesting a med refill for medication oxycodone 5 mg. Please send to [facility]/pharmacy #[id number] - [place]IPS - [address] [facility] [facility] PCP [address] Santana documented in this encounter Plan of Treatment Upcoming Encounters Date Type Department Care Team ([facility] st Contact Info) Description 05/31/2024 11:00 AM EDT Clinical Support [facility] MED & PEDS [address] [place] [address] 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, RN 505 [place] [address] documented as of this encounter Visit Diagnoses Diagnosis Low back pain radiating down leg documented in this encounter Additional Health Concerns Assessment Noted Time PHQ-9 Depression Total Score: 3 06/04/19 23 3:42 PM EDT documented as of this encounter Care Teams Sheet Metal Shop Helper Relationship Specialty Start Date End Date Carlo Santana MD [address] [place] [address] PCP - General Internal Medicine 12/28/17 documented as of this encounter
--- OUTSIDE RECORDS SUMMARY | 2024-04-09 13:05 | XMS_ITS | Encounter Summary ---
Author Organization [employer] Address 75 [facility] 7 [place] [address] Care Team Providers Care Disc Inspector Name Role Phone Carlo Santana MD Primary Care Provider +1- [phone] Reason for Visit * Reason Onset Date Comments Call Back Request 12/19/2023 Encounter Details Date Type Department Care Team ([facility] st Contact Info) Description 12/19/2023 Telephone [facility] MEDICINE [address] [place] [address] Carlo Santana MD [address] [facility] [address] [place], [place] [phone] Call Back Request Social History Tobacco Use [...] Encounter - Angel Luis Oreilly - 12/19/2023 12:02 PM EDT Tc from patient calling to request the appt for 12/20 can be moved up to a earlier time due to having other appts scheduled for that date documented in this encounter Plan of Treatment Upcoming Encounters Date Type Department Care Team (Late st Contact Info) Description 05/31/2024 11:00 AM EDT [facility]ED[facility] 505 [place] [address] 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, HUGO 505 [place] [address] documented as of this encounter Visit Diagnoses Not on filedocumented in this encounter Additional Health Concerns Assessment Noted Time PHQ-9 Depression Total Score: 3 06/04/19 23 3:42 PM EDT documented as of this encounter Care Teams Disc Inspector Relationship Specialty Start Date End Date Carlo Santana MD 505 [place] [address] PCP - General Internal Medicine 12/28/17 documented as of this encounter
== END 2024-04-09 09:31 | disposition home or self-care (01) ==
PROVIDERS: PCP Internal Medicine; Visit Provider Urology
DX: N39.41 Urge incontinence (principal); R15.9 Full incontinence of feces; N39.8 Other specified disorders of urinary system; Z13.9 Encounter for screening, unspecified
CPT/HCPCS: 99214

== ENCOUNTER → 2024-04-09 08:48 | Outpatient (BNVA) | payer MEDICAID, SELFPAY | PROVIDERS: PCP Internal Medicine; Visit Provider Urology | DX: N39.46 Mixed incontinence (principal); R15.9 Full incontinence of feces; N39.8 Other specified disorders of urinary system | CPT/HCPCS: 51798; 81003; 99212 ==

== ENCOUNTER 2024-04-11 11:15 | Outpatient (REF) | payer MEDICAID, SELFPAY ==
--- OUTSIDE RECORDS SUMMARY | 2024-04-11 13:34 | XMS_ITS | Encounter Summary ---
Author Organization [employer] Address 75 [facility] 7 [place] [address] Care Team Providers Care Window And Door Installer Name Role Phone Carlo Santana MD Primary Care Provider +1- [phone] Reason for Visit * Reason Onset Date Comments Med Refill 01/25/2024 Encounter Details Date Type Department Care Team ([facility] st Contact Info) Description 01/25/2024 Telephone [facility] MEDICINE 230 [place] [address] Carlo Santana MD [address] [place], [place] [phone] Med Refill Social History Tobacco Use Types [...] Upcoming Encounters Date Type Department Care Team ([facility] st Contact Info) Description 05/31/2024 11:00 AM EDT Clinical Support [facility] MED & PEDS 505 [place] [address] 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 RN 505 [place] [address] documented as of this encounter Visit Diagnoses Not on filedocumented in this encounter Additional Health Concerns Assessment Noted Time PHQ-9 Depression Total Score: 3 06/04/19 23 3:42 PM EDT documented as of this encounter Care Teams Window And Door Installer Relationship Specialty Start Date End Date Carlo Santana MD [address] [place] [address] PCP - General Internal Medicine 12/28/17 documented as of this encounter
--- OUTSIDE RECORDS SUMMARY | 2024-04-11 13:34 | XMS_ITS | Encounter Summary ---
Author Organization [employer] Address 75 [facility] 7 [place] [address] Care Team Providers Care Scientologist Name Role Phone Carlo Santana MD Primary Care Provider +1- [phone] Reason for Visit * Reason Onset Date Comments Nurse Triage 04/03/2024 Encounter Details Date Type Department Care Team (Late st Contact Info) Description 04/03/2024 Telephone [facility] MEDICINE [address] [place] [address] Carlo Santaan MD [address] [facility] [address] [place], [place] [phone] Nurse Triage Social History Tobacco Use Types [...] acuity questions The caller accepted this outcome. [phone] documented in this encounter Plan of Treatment Upcoming Encounters Date Type Department Care Team ([facility] st Contact Info) Description 05/31/2024 11:00 AM EDT Clinical Support [facility] MED & PEDS [address] [place] [address] 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, HUGO 505 [place] [address] documented as of this encounter Visit Diagnoses Not on filedocumented in this encounter Additional Health Concerns Assessment Noted Time PHQ-9 Depression Total Score: 15 024 11:50 AM EST documented as of this encounter Care Teams Scientologist Relationship Specialty Start Date End Date Carlo Santana MD 505 [place] [address] PCP - General Internal Medicine 12/28/17 documented as of this encounter
--- OUTSIDE RECORDS SUMMARY | 2024-04-11 13:34 | XMS_ITS | Encounter Summary ---
Author Organization [employer] Address [address] [place] [address] Care Team Providers Care Tenterer Name Role Phone Carlo Santana MD Primary Care Provider +1- [phone] Reason for Referral * Consultation (Routine) - Authorized Specialty Diagnoses / Procedures Referred By Contac t Referred To Contact Neurosurgery Diagnoses Chronic left-sided low back pain with left-sided sciatica Carlo Santana MD 505 [place] [address] Phone: tel: fax: Neurosurgery, [address] [place] [address] Phone: tel: fax: Referral ID Status Reason Start Date Expiration Date Visits Requested Visits Authorized [id number] Authorized Specialty Services Required 03/22/2024 03/22/2025 1 1 Reason for Visit * Reason Comments Shoulder Pain Encounter Details Date Type Department Care Team (Latest Contact Info) Description 03/22/2024 2:30 PM EST Office Visit [facility] MED & PEDS 505 [place], [place] [phone] Carlo Santana MD [address] [place] [address] Chronic left shoulder pain (Primary Dx); Muscle [...] spray Administer 0.1 mL into affected nostril(s). [place] 0.1 milliliter by intranasal route in 1 [...] Description 05/31/2024 11:00 AM EDT Clinical Support [facility] MED & PEDS 505 [place] [address] 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 RN 505 [place] [address] Scheduled Orders Name Type Priority Associated Diagnoses [...] documented as of this encounter Care Teams Tenterer Relationship Specialty Start Date End Date Carlo Santana MD 505 [place] [address] PCP - General Internal Medicine 12/28/17 documented as of this encounter
--- OUTSIDE RECORDS SUMMARY | 2024-04-11 13:34 | XMS_ITS | Encounter Summary ---
Author Organization [employer] Address [address] [place] [address] 7 [place] [address] Care Team Providers Care Manager Primary Care Name Role Phone Carlo Santana MD Primary Care Provider +1- [phone] Encounter Details Date Type Department Care Team ([facility] st Contact Info) Description 08/17/2023 Orders Only [facility] CHC MED & PEDS [address] [place], [place] [phone] Carlo Santana MD 505 [place], [place] [phone] Bipolar affective disorder, remission status unspecified (CMS/HCC) [...] Description 05/31/2024 11:00 AM EDT Clinical Support [facility] MED & PEDS 505 [place] [address] 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 RN 505 [place] [address] documented as of this encounter Visit Diagnoses Diagnosis Bipolar affective disorder, remission status unspecified (CMS/[facility])- Primary documented in this encounter Additional Health Concerns Assessment Noted Time PHQ-9 Depression Total Score: 3 06/04/19 23 3:42 PM EDT documented as of this encounter Care Teams Manager Primary Care Relationship Specialty Start Date End Date Carlo Santana MD [address] [place] [address] PCP - General Internal Medicine 12/28/17 documented as of this encounter
--- OUTSIDE RECORDS SUMMARY | 2024-04-11 13:34 | XMS_ITS | Encounter Summary ---
Author Organization [employer] Address [address] [place] [address] 7 [place] [address] Care Team Providers Care Deli/Bakery Associate Name Role Phone Carlo Santana MD Primary Care Provider +1- [phone] Encounter Details Date Type Department Care Team ([facility] st Contact Info) Description 01/06/2024 Orders Only [facility] CHC MED & PEDS [address] [place], [place] [phone] Carlo Santana MD 505 [place] [address] Diarrhea, unspecified type (Primary Dx); Chronic left-sided [...] [facility] [address] [place] [address] 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 RN 505 [place] [address] Scheduled Orders Name Type Priority Associated Diagnoses [...] Protein <0.10 < or = 0.50 mg/dL [facility] Blood Venous blood specimen / Unknown 01/06/2024 1:18 PM EDT 01/06/2024 2:16 PM EDT Carlo Santana MD LAB BLOOD ORDERABLES Final Result [facility] [address] [place] [address] [phone] documented in this encounter Visit Diagnoses Diagnosis Diarrhea, unspecified type- Primary Chronic left-sided low back pain with left-sided sciatica documented in this encounter Additional Health Concerns Assessment Noted Time PHQ-9 Depression Total Score: 3 06/04/19 23 3:42 PM EDT documented as of this encounter Care Teams Deli/Bakery Associate Relationship Specialty Start Date End Date Carlo Santana MD [address] [place] [phone] PCP - General Internal Medicine 12/28/17 documented as of this encounter
--- OUTSIDE RECORDS SUMMARY | 2024-04-11 13:34 | XMS_ITS | Encounter Summary ---
Author Organization [employer] Address [address] [place] [address] 7 [place] [address] Care Team Providers Care Culinary Artist Name Role Phone Carlo Santana MD Primary Care Provider +1- [phone] Reason for Visit * Reason Onset Date Comments Medication Question 01/31/2024 Encounter Details Date Type Department Care Team ([facility] Contact Info) Description 01/31/2024 Telephone [facility] CHC MED & PEDS 505 [place] [address] Carlo Santana MD 505 [place] [address] Medication Question Social History Tobacco Use Types [...] Mayorga LPN - 01/31/2024 10:10 AM EST [employer] communicated with the patient's insurance provider, who indicated that prior authorization is not required. Oxycodone was discontinued because the patient received a prescription for acetaminophen 600 mg from another physician's office on January 25, 2024. I requested that the [place] CST nurse join this discussion to ensure she is informed about the patient's situation. The insurance expressed concerns regarding the patient's liver health due to the use of these medications. An override for Oxycodone was granted; however, it was noted that it will be revoked if the patient continuesto use this medication (acetaminophen 600 mg). This information is being shared with both the CRAB FISHERMAN nurse and the primary care physician to [...] EDT Clinical Support [facility] MED & PEDS 505 [place] [address] 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, HUGO 505 [place] [address] documented as of this encounter Visit Diagnoses Not on filedocumented in this encounter Additional Health Concerns Assessment Noted Time PHQ-9 Depression Total Score: 15 024 11:50 AM EST documented as of this encounter Care Teams Culinary Artist Relationship Specialty Start Date End Date Carlo Santana MD 505 [place] [address] PCP - General Internal Medicine 12/28/17 documented as of this encounter
--- OUTSIDE RECORDS SUMMARY | 2024-04-11 13:34 | XMS_ITS | Encounter Summary ---
Author Organization [employer] Address [address] [place] [address] 7 [place] [address] Care Team Providers Care Gaming Worker Name Role Phone Carlo Santana MD Primary Care Provider +1- [phone] Reason for Visit * Reason Onset Date Comments Prior Authorization 09/02/2023 Encounter Details Date Type Department Care Team ([facility] Contact Info) Description 09/02/2023 Telephone [facility] MED & PEDS 505 [place] [address] Carlo Santana MD 505 [place] [address] Prior Authorization Social History Tobacco Use Types [...] Support [facility] MED & PEDS [address] [place] [address] 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, RN 505 [place] [address] documented as of this encounter Visit Diagnoses Diagnosis Bipolar affective disorder, remission status unspecified (CMS/[facility]) documented in this encounter Additional Health Concerns Assessment Noted Time PHQ-9 Depression Total Score: 3 06/04/19 23 3:42 PM EDT documented as of this encounter Care Teams Gaming Worker Relationship Specialty Start Date End Date Carlo Santana MD [address] [place] [address] PCP - General Internal Medicine 12/28/17 documented as of this encounter
--- OUTSIDE RECORDS SUMMARY | 2024-04-11 13:34 | XMS_ITS | Encounter Summary ---
Author Organization [employer] Address [address] [facility] 7 [place] [address] Care Team Providers Care Biscuit Maker Name Role Phone Carlo aSntana MD Primary Care Provider +1- [phone] Reason for Visit * Reason Onset Date Comments Results 01/03/2024 Encounter Details Date Type Department Care Team ([facility] st Contact Info) Description 01/03/2024 Telephone [facility] MEDICINE [address] [place] [address] Carlo Santana MD [address] [place], [place] [phone] Results Social History Tobacco Use Types Packs/Day [...] borderline values. THIS TEST WAS PERFORMED AT: [facility] [address] [place] [address] CHERYL MOLINA MD,PHD,BATSHEVA Dr. Santana, This is the results found on Miira for pt recent Calprotectin stool testing. Pt would like a call back with the interpretation of the results. * Telephone Encounter - Quan Mena - 01/03/2024 11:01 AM EDT TC from pt requesting call back regarding Results. Type of results: Labs Date when done: 12/24/23 Facility: [facility] labs documented in this encounter Plan of Treatment Upcoming Encounters Date Type Department Care Team (Late st Contact Info) Description 05/31/2024 11:00 AM EDT Clinical Support [facility] CHC MED & PEDS [address] [place] [address] 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, HUGO 505 [place] [address] documented as of this encounter Visit Diagnoses Not on filedocumented in this encounter Additional Health Concerns Assessment Noted Time PHQ-9 Depression Total Score: 3 06/04/19 23 3:42 PM EDT documented as of this encounter Care Teams Biscuit Maker Relationship Specialty Start Date End Date Carlo Santana MD 505 [place] [address] PCP - General Internal Medicine 12/28/17 documented as of this encounter
--- OUTSIDE RECORDS SUMMARY | 2024-04-11 13:34 | XMS_ITS | Encounter Summary ---
Author Organization [employer] Address [address] [place] [address] Care Team Providers Care Control Supervisor Name Role Phone Carlo Santana MD Primary Care Provider +1- [phone] Reason for Referral * Imaging (Routine) - Authorized Specialty Diagnoses / Procedures Referred By Contac t Referred To Contact Radiology Diagnoses Transaminitis Procedures US Abdomen Complete Carlo Santana MD 505 [place] [address] Phone: tel: fax: [address] Phone: tel: fax: Referral ID Status Reason Start Date Expiration Date V isits Requested Visits Authorized [id number] Authorized 03/23/2024 03/23/2025 1 1 Reason for Visit * Reason Comments Med Refill Encounter Details Date Type Department Care Team (Late st Contact Info) Description 03/21/2024 Refill [facility] CHC MED & PEDS 505 [place] [address] Carlo Santana MD 505 [place] [address] Chronic left-sided low back pain with left-sided [...] Encounters Date Type Department Care Team ([facility] st Contact Info) Description 05/31/2024 11:00 AM EDT Clinical Support [facility] CHC MED & PEDS 505 [place] [address] 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 RN 505 [place] [address] Scheduled Orders Name Type Priority Associated Diagnoses [...] documented as of this encounter Care Teams Control Supervisor Relationship Specialty Start Date End Date Carlo Santana MD 505 [place] [address] PCP - General Internal Medicine 12/28/17 documented as of this encounter
--- OUTSIDE RECORDS SUMMARY | 2024-04-11 13:34 | XMS_ITS | Encounter Summary ---
Author Organization [employer] Address [address] [facility] 7t [place] [address] Care Team Providers Care Software Systems Engineer Name Role Phone Carlo Santana MD Primary Care Provider +1 [phone] Encounter Details Date Type Department Care Team [...] t he electric, gas, oil or water [employer] threatened to shut off services in your [...] 05/31/2024 11:00 AM EDT Clinical Support [facility] CHC MED & PEDS 505 [place] [address] 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, RN 505 [place] [address] documented as of this encounter Visit Diagnoses Not on filedocumented in this encounter Additional Health Concerns Assessment Noted Time PHQ-9 Depression Total Score: 15 024 11:50 AM EST documented as of this encounter Care Teams Software Systems Engineer Relationship Specialty Start Date End Date Carlo Santana MD 505 [place] [address] PCP - General Internal Medicine 12/28/17 documented as of this encounter
--- OUTSIDE RECORDS SUMMARY | 2024-04-11 13:34 | XMS_ITS | Encounter Summary ---
Author Organization [employer] Address [address] [facility] 7 [place] [address] Care Team Providers Care Teacher Industrial Arts Name Role Phone Carlo Santana MD Primary Care Provider +1- [phone] Reason for Visit * Reason Onset Date Comments Med Refill 12/28/2023 Encounter Details Date Type Department Care Team ([facility] st Contact Info) Description 12/28/2023 Telephone [facility] MEDICINE [address] [place] [address] Carlo Santana MD [address] [place], [place] [phone] Med Refill Social History Tobacco Use Types [...] 7.5-325 MG tablet To be sent to: [facility]/pharmacy #[id number] Patient indicated lost medication further information not provided documented in this encounter Plan of Treatment Upcoming Encounters Date Type Department Care Team (Late st Contact Info) Description 05/31/2024 11:00 AM EDT Clinical Support [facility] MED & PEDS 505 [place] [address] 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 RN 505 [place] [address] documented as of this encounter Visit Diagnoses Not on filedocumented in this encounter Additional Health Concerns Assessment Noted Time PHQ-9 Depression Total Score: 3 06/04/19 23 3:42 PM EDT documented as of this encounter Care Teams Teacher Industrial Arts Relationship Specialty Start Date End Date Carlo Santana MD 505 [place] [address] PCP - General Internal Medicine 12/28/17 documented as of this encounter
--- OUTSIDE RECORDS SUMMARY | 2024-04-11 13:34 | XMS_ITS | Encounter Summary ---
Author Organization [employer] Address [address] [place] [address] 7 [place] [address] Care Team Providers Care Needle Loom Operator Helper Name Role Phone Carlo Santana MD Primary Care Provider +1- [phone] Reason for Visit * Reason Onset Date Comments Med Refill 03/12/2024 Encounter Details Date Type Department Care Team ([facility] st Contact Info) Description 03/12/[address] [facility] CHC MED & PEDS 505 [place] [address] Carlo Santana MD 505 [place] [address] [place] (generalized anxiety disorder) Social History Tobacco [...] 1 MG tablet To be sent to: [facility]/pharmacy #[id number] - [place]IPS - [address] [facility] documented in this encounter Plan of Treatment Upcoming Encounters Date Type Department Care Team (Late st Contact Info) Description 05/31/2024 11:00 AM EDT Clinical Support [facility] MED & PEDS 505 [place] [address] 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, HUGO 505 [place] [address] documented as of this encounter Visit Diagnoses Diagnosis [place] (generalized anxiety disorder) Generalized anxiety disorder documented in this encounter Additional Health Concerns Assessment Noted Time PHQ-9 Depression Total Score: 15 024 11:50 AM EST documented as of this encounter Care Teams Needle Loom Operator Helper Relationship Specialty Start Date End Date Carlo Santana MD [address] [place] [address] PCP - General Internal Medicine 12/28/17 documented as of this encounter
--- OUTSIDE RECORDS SUMMARY | 2024-04-11 13:34 | XMS_ITS | Encounter Summary ---
Author Organization [employer] Address [address] [place] [address] 7 [place] [address] Care Team Providers Care Automotive Parts Specialist Name Role Phone Carlo Santana MD Primary Care Provider +1- [phone] Reason for Visit * Reason Onset Date Comments Med Change Request 09/14/2023 Encounter Details Date Type Department Care Team ([facility] st Contact Info) Description 09/14/2023 Telephone [facility] MED & PEDS 505 [place] [address] Carlo Santana MD 505 [place] [address] Med Change Request Social History Tobacco Use [...] in the morning. Please contact pt at [phone] documented in this encounter Plan of Treatment Upcoming Encounters Date Type Department Care Team ([facility] st Contact Info) Description 05/31/2024 11:00 AM EDT Clinical Support [facility] CHC MED & PEDS 505 [place] [address] 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, HUGO 505 [place] [address] documented as of this encounter Visit Diagnoses Not on filedocumented in this encounter Additional Health Concerns Assessment Noted Time PHQ-9 Depression Total Score: 3 06/04/19 23 3:42 PM EDT documented as of this encounter Care Teams Automotive Parts Specialist Relationship Specialty Start Date End Date Carlo Santana MD 505 [place] [address] PCP - General Internal Medicine 12/28/17 documented as of this encounter
--- OUTSIDE RECORDS SUMMARY | 2024-04-11 13:34 | XMS_ITS | Encounter Summary ---
Author Organization [employer] Address [address] [facility] 7 [place] [address] Care Team Providers Care Director Digital Advertising Name Role Phone Carlo Santana MD Primary Care Provider +1- [phone] Reason for Visit * Reason Onset Date Comments Nurse Triage 03/21/2024 Encounter Details Date Type Department Care Team (Late st Contact Info) Description 03/21/2024 Telephone [facility] MEDICINE [address] [place] [address] Carlo Santana MD [address] [place], [place] [phone] Nurse Triage Social History Tobacco Use Types [...] EST Triage call Pt reports seen by logistics center manager and Pt believes they may have Crohns [...] Reason: Joint pain Please contact pt at [phone]. documented in this encounter Plan of Treatment Upcoming Encounters Date Type Department Care Team (Late st Contact Info) Description 05/31/2024 11:00 AM EDT Clinical Support [facility] MED & PEDS [address] [place] [address] 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 RN 505 [place] [address] documented as of this encounter Visit Diagnoses Diagnosis Acute pain of both shoulders documented in this encounter Additional Health Concerns Assessment Noted Time PHQ-9 Depression Total Score: 15 024 11:50 AM EST documented as of this encounter Care Teams Director Digital Advertising Relationship Specialty Start Date End Date Carlo Santana MD 505 [place] [address] PCP - General Internal Medicine 12/28/17 documented as of this encounter
--- OUTSIDE RECORDS SUMMARY | 2024-04-11 13:34 | XMS_ITS | Encounter Summary ---
Author Organization [employer] Address [address] [facility] 7 [place] [address] Care Team Providers Care Photographic Printer Name Role Phone Carlo Santana MD Primary Care Provider +1- [phone] Reason for Visit * Reason Onset Date Comments Results 03/15/2024 Encounter Details Date Type Department Care Team (Late st Contact Info) Description 03/15/2024 Telephone [facility] MEDICINE [address] [place] [address] Carlo Santana MD [address] [facility] [address] [place], [place] [phone] Results Social History Tobacco Use Types Packs/Day [...] stool testing and pancreatic elastase were [facility]. Pt confirms that she had a [...] pancreatic elastase Date when done: 03/08/2024 Facility: [facility] documented in this encounter Plan of Treatment Upcoming Encounters Date Type Department Care Team (Late st Contact Info) Description 05/31/2024 11:00 AM EDT Clinical Support [facility] CHC MED & PEDS 505 [place] [address] 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, HUGO 505 [place] [address] documented as of this encounter Visit Diagnoses Not on filedocumented in this encounter Additional Health Concerns Assessment Noted Time PHQ-9 Depression Total Score: 15 024 11:50 AM EST documented as of this encounter Care Teams Photographic Printer Relationship Specialty Start Date End Date Carlo Santana MD 505 [place] [address] PCP - General Internal Medicine 12/28/17 documented as of this encounter
--- OUTSIDE RECORDS SUMMARY | 2024-04-11 13:34 | XMS_ITS | Encounter Summary ---
Author Organization [employer] Address [address] [place] [address] 7 [place] [address] Care Team Providers Care Spear Fisher Name Role Phone Carlo Santana MD Primary Care Provider +1- [phone] Reason for Visit * Reason Onset Date Comments Prior Authorization 03/23/2024 Encounter Details Date Type Department Care Team ([facility] Contact Info) Description 03/23/2024 Telephone [facility] CHC MED & PEDS 505 [place] [address] Carlo Santana MD 505 [place] [address] Prior Authorization Social History Tobacco Use Types [...] Upcoming Encounters Date Type Department Care Team ([facility] st Contact Info) Description 05/31/2024 11:00 AM EDT Clinical Support [facility] MED & PEDS 505 [place] [address] 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 RN 505 [place] [address] documented as of this encounter Visit Diagnoses Not on filedocumented in this encounter Additional Health Concerns Assessment Noted Time PHQ-9 Depression Total Score: 15 024 11:50 AM EST documented as of this encounter Care Teams Spear Fisher Relationship Specialty Start Date End Date Carlo Santana MD 505 [place] [address] PCP - General Internal Medicine 12/28/17 documented as of this encounter
--- OUTSIDE RECORDS SUMMARY | 2024-04-11 13:34 | XMS_ITS | Encounter Summary ---
Author Organization [employer] Address [address] [place] [address] 7 [place] [address] Care Team Providers Care Commercial Sales Specialist Name Role Phone Carlo Santana MD Primary Care Provider +1- [phone] Reason for Visit * Reason Onset Date Comments Med Refill 09/14/2023 Encounter Details Date Type Department Care Team ([facility] st Contact Info) Description 09/14/2023 Telephone [facility] MED & PEDS [address] [place] [address] Carlo Santana MD 505 [place] [address] Med Refill Social History Tobacco Use Types [...] 5 % patch To be sent to: [facility]/pharmacy #[id number] LEATHA PHILLIPS - [address] [facility] documented in this encounter Plan of Treatment Upcoming Encounters Date Type Department Care Team ([facility] st Contact Info) Description 05/31/2024 11:00 AM EDT Clinical Support [facility] MED & PEDS 505 [place] [address] 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, HUGO 505 [place] [address] documented as of this encounter Visit Diagnoses Not on filedocumented in this encounter Additional Health Concerns Assessment Noted Time PHQ-9 Depression Total Score: 3 06/04/19 23 3:42 PM EDT documented as of this encounter Care Teams Commercial Sales Specialist Relationship Specialty Start Date End Date Carlo Santana MD 505 [place] [address] PCP - General Internal Medicine 12/28/17 documented as of this encounter
--- OUTSIDE RECORDS SUMMARY | 2024-04-11 13:34 | XMS_ITS | Encounter Summary ---
Author Organization [employer] Address [address] [facility] 7 [place] [address] Care Team Providers Care Postal Delivery Officer Name Role Phone Carlo Santana MD Primary Care Provider +1- [phone] Reason for Visit * Reason Onset Date Comments Medication Question 03/23/2024 Encounter Details Date Type Department Care Team ([facility] st Contact Info) Description 03/23/2024 Telephone [facility] MEDICINE [address] [place] [address] Carlo Santana MD [address] [facility] [address] [place], [place] [phone] Medication Question Social History Tobacco Use Types [...] due tylenol being in pt med list [phone] documented in this encounter Plan of Treatment Upcoming Encounters Date Type Department Care Team ([facility] st Contact Info) Description 05/31/2024 11:00 AM EDT Clinical Support [facility] CHC MED & PEDS 505 [place] [address] 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, HUGO 505 [place] [address] documented as of this encounter Visit Diagnoses Not on filedocumented in this encounter Additional Health Concerns Assessment Noted Time PHQ-9 Depression Total Score: 15 024 11:50 AM EST documented as of this encounter Care Teams Postal Delivery Officer Relationship Specialty Start Date End Date Carlo Santana MD 505 [place] [address] PCP - General Internal Medicine 12/28/17 documented as of this encounter
--- OUTSIDE RECORDS SUMMARY | 2024-04-11 13:34 | XMS_ITS | Encounter Summary ---
Author Organization [employer] Address [address] [facility] 7t [place] [address] Care Team Providers Care Commander Police Reserves Name Role Phone Carlo Santana MD Primary Care Provider +1 [phone] Encounter Details Date Type Department Care Team [...] t he electric, gas, oil or water [employer] threatened to shut off services in your [...] [facility] 505 [place] [address] 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, RN 505 [place] [address] documented as of this encounter Visit Diagnoses Not on filedocumented in this encounter Additional Health Concerns Assessment Noted Time PHQ-9 Depression Total Score: 15 024 11:50 AM EST documented as of this encounter Care Teams Commander Police Reserves Relationship Specialty Start Date End Date Carlo Santana MD 505 [place] [address] PCP - General Internal Medicine 12/28/17 documented as of this encounter
--- OUTSIDE RECORDS SUMMARY | 2024-04-11 13:34 | XMS_ITS | Encounter Summary ---
Author Organization [employer] Address [address] [place] [address] 7t [place] [address] Care Team Providers Care Senior Counsel Name Role Phone Carlo Santana MD Primary Care Provider +1 [phone] Encounter Details Date Type Department Care Team [...] t he electric, gas, oil or water [employer] threatened to shut off services in your [...] Upcoming Encounters Date Type Department Care Team ([facility] st Contact Info) Description 05/31/2024 11:00 AM EDT Clinical Support [facility] MED & PEDS 505 [place] [address] 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, RN 505 [place] [address] documented as of this encounter Procedures Procedure [...] EST Narrative 04/05/2024 11:37 AM EST ? [facility] ?[address] ?[place] [address] ? CT Scan Report ? Signed ? Patient: Du,Peri M ?MR#: [id number] ?? [id number] ? : 1980 ?Acct:[id number] ? Age/Sex: 43 / F ?ADM Date: /23/25 ? Loc: HO.CT ? Attending Dr: Cristel ARIAS ? Ordering Physician: Cristel Rendon ?? Date of Service: 04/05/24 ?? Procedure(s): CT enterography ?? Accession Number(s): [id number] ? cc: Carlo Santana MD; Cristel Rendon ? Report Number: ?? [id number]: Total DLP = ??295.00 mGy-cm ?? EXAMINATION: [...] DD/ 1051 ? TD/TT: 04/05/24 1108 ? Seed Sorter: ? Procedure Note Geovanny Villalobos - 04/05/[address] [address] [address] Scan Report Signed Patient: Peri Sandy MMR#: [id number] : 1980Acct:[id number] Age/Sex: 43 / FADM Date: 04/05/24 Loc: HO.CT Attending Dr: Cristel Rendon [facility] Ordering Physician: Cristel Rendon [facility] Date of Service: 04/05/24 Procedure(s): CT enterography Accession Number(s): [id number] cc: Carlo Santana MD; Cristel Rendon [facility] Report Number: [id number]: Total DLP = 295.00 mGy-cm EXAMINATION: CT [...] 04/05/24 1134 DD/ 1051 TD/TT: 04/05/24 1108 Seed Sorter: [facility] External Provider IMG CT PROCEDURES Final Result * (ABNORMAL) Calprotectin, Stool (03/08/2024 7:47 AM EST) Calprotectin,Fecal 368(A) mcg/g [facility] Comment:Reference Range: <50 Normal 50-120 Borderline >120 ElevatedCalprotectin in Crohn's disease and ulcerative colitis canbe five to several thousand times above the referencepopulation (50 mcg/g or less). Levels are usually 50 mcg/gor less in healthy patients and with irritable bowelsyndrome. Repeat testing in 4-6 weeks is suggested forborderline values.THIS TEST WAS PERFORMED AT:[employer] [id number] [facility] [place] [address]QFENDCHERYL MOLINA MD,PHD,BATSHEVA 03/08/2024 7:47 AM EST 03/08/2024 9:18 AM EST Generic External Data Provider LAB BODY FLUIDS A ND STOOLS ORDERABLES Final Result [facility] [address] [place] [address] [phone] * Pancreatic elastase, fecal (03/08/2024 7:47 AM EST) Pancreatic Elastase 1 501 >200 mcg/g [facility] Comment:E-1 mcg/g feces Inte rpretation <100 Severe exocrine pancreatic insufficiency 100-200 Mild to moderate exocrine pancreatic insufficiency >200 NormalTHIS TEST WAS PERFORMED AT:[employer] [id number] [place] [address]AQRYWCHERYL MOLINA MD,PHD,BATSHEVA 03/08/2024 7:47 AM EST 03/08/2024 9:18 AM EST us Generic External Data Provider LAB BODY FLUIDS A ND STOOLS ORDERABLES Final Result [facility] [address] [place] [address] [phone] documented in this encounter Visit Diagnoses Not on filedocumented in this encounter Additional Health Concerns Assessment Noted Time PHQ-9 Depression Total Score: 15 01/25/ 024 11:50 AM EST documented as of this encounter Care Teams Senior Counsel Relationship Specialty Start Date End Date Carlo Santana MD [address] [place] [address] PCP - General Internal Medicine 12/28/17 documented as of this encounter
--- OUTSIDE RECORDS SUMMARY | 2024-04-11 13:34 | XMS_ITS | Encounter Summary ---
Author Organization [employer] Address [address] [place] [address] 7 [place] [address] Care Team Providers Care Draw Off Worker Name Role Phone Carlo Santana MD Primary Care Provider +1- [phone] Reason for Visit * Reason Onset Date Comments PA 01/31/2024 Encounter Details Date Type Department Care Team ([facility] st Contact Info) Description 01/31/2024 Telephone [facility] MED & PEDS 505 [place] [address] Carlo Santana MD 505 [place] [address] PA Social History Tobacco Use Types Packs/Day [...] Upcoming Encounters Date Type Department Care Team ([facility] st Contact Info) Description 05/31/2024 11:00 AM EDT Clinical Support [facility] MED & PEDS [address] [place] [address] 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 RN 505 [place] [address] documented as of this encounter Visit Diagnoses Not on filedocumented in this encounter Additional Health Concerns Assessment Noted Time PHQ-9 Depression Total Score: 15 024 11:50 AM EST documented as of this encounter Care Teams Draw Off Worker Relationship Specialty Start Date End Date Carlo Santana MD 505 [place] [address] PCP - General Internal Medicine 12/28/17 documented as of this encounter
--- OUTSIDE RECORDS SUMMARY | 2024-04-11 13:34 | XMS_ITS | Encounter Summary ---
Author Organization [employer] Address [address] [facility] 7 [place] [address] Care Team Providers Care Prefitter Doors Name Role Phone Carlo Santana MD Primary Care Provider +1- [phone] Reason for Visit * Reason Onset Date Comments Medication Question 12/28/2023 Encounter Details Date Type Department Care Team ([facility] st Contact Info) Description 12/28/2023 Telephone [facility] MEDICINE [address] [place] [address] Carlo Santana MD [address] [facility] [address] [place], [place] [phone] Medication Question Social History Tobacco Use Types [...] any questions you can contact pt at [phone]. documented in this encounter Plan of Treatment Upcoming Encounters Date Type Department Care Team ([facility] st Contact Info) Description 05/31/2024 11:00 AM EDT Clinical Support [facility] MED & PEDS 505 [place] [address] 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, HUGO 505 [place] [address] documented as of this encounter Visit Diagnoses Not on filedocumented in this encounter Additional Health Concerns Assessment Noted Time PHQ-9 Depression Total Score: 3 06/04/19 23 3:42 PM EDT documented as of this encounter Care Teams Prefitter Doors Relationship Specialty Start Date End Date Carlo Santana MD [address] [place] [address] PCP - General Internal Medicine 12/28/17 documented as of this encounter
--- OUTSIDE RECORDS SUMMARY | 2024-04-11 13:34 | XMS_ITS | Encounter Summary ---
Author Organization [employer] Address 75 [facility] 7 [place] [address] Care Team Providers Care Freight Car Loader Name Role Phone Carlo Santana MD Primary Care Provider +1- [phone] Encounter Details Date Type Department Care Team (Late st Contact Info) Description 04/03/2024 Telephone [facility] MEDICINE 230 [place] [address] Carlo Santana MD [address] [place], [place] [phone] Social History Tobacco Use Types Packs/Day Years [...] [facility] 505 [place] [address] 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, RN 505 [place] [address] documented as of this encounter Visit Diagnoses Not on filedocumented in this encounter Additional Health Concerns Assessment Noted Time PHQ-9 Depression Total Score: 15 024 11:50 AM EST documented as of this encounter Care Teams Freight Car Loader Relationship Specialty Start Date End Date Carlo Santana MD 505 [place] [address] PCP - General Internal Medicine 12/28/17 documented as of this encounter
--- OUTSIDE RECORDS SUMMARY | 2024-04-11 13:34 | XMS_ITS | Encounter Summary ---
Author Organization [employer] Address 75 [facility] 7 [place] [address] Care Team Providers Care Radiology Aide Name Role Phone Carlo Santana MD Primary Care Provider +1- [phone] Reason for Visit * Reason Comments Med Refill Encounter Details Date Type Department Care Team ([facility] st Contact Info) Description 04/09/2024 Refill [facility] MEDICINE 230 [place] [address] Carlo Santana MD 505 [place], [place] [phone] Diarrhea, unspecified type; Bipolar affective disorder, remission [...] 11:00 AM EDT Clinical Support [facility] MED & PEDS 505 [place] [address] 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, HUGO 505 [place] [address] documented as of this encounter Visit Diagnoses Diagnosis Diarrhea, unspecified type Bipolar affective disorder, remission status unspecified ([facility] [place] (generalized anxiety disorder) Generalized anxiety disorder documented in this encounter Additional Health Concerns Assessment Noted Time PHQ-9 Depression Total Score: 15 024 11:50 AM EST documented as of this encounter Care Teams Radiology Aide Relationship Specialty Start Date End Date Carlo Santana MD 505 [place] [address] PCP - General Internal Medicine 12/28/17 documented as of this encounter
--- OUTSIDE RECORDS SUMMARY | 2024-04-11 13:34 | XMS_ITS | Encounter Summary ---
Author Organization [employer] Address 75 [facility] 7 [place] [address] Care Team Providers Care Powder Line Repairer Name Role Phone Carlo Santana MD Primary Care Provider +1- [phone] Reason for Visit * Reason Onset Date Comments Prior Authorization 12/29/2023 Encounter Details Date Type Department Care Team ([facility] st Contact Info) Description 12/29/2023 Telephone [facility] MEDICINE 230 [place] [address] Carlo Santana MD 505 [place], [place] [phone] Prior Authorization Social History Tobacco Use Types [...] from pt stating she was informed by [facility] pharmacy that oxyCODONE-acetaminophen (Percocet) 7.5-325MG tablet needs a PA. If any questions for the pt you can contact them at [phone]. documented in this encounter Plan of Treatment Upcoming Encounters Date Type Department Care Team (Late st Contact Info) Description 05/31/2024 11:00 AM EDT Clinical Support [facility] MED & PEDS 505 [place] [address] 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, RN 505 [place] [address] documented as of this encounter Visit Diagnoses Not on filedocumented in this encounter Additional Health Concerns Assessment Noted Time PHQ-9 Depression Total Score: 3 06/04/19 23 3:42 PM EDT documented as of this encounter Care Teams Powder Line Repairer Relationship Specialty Start Date End Date Carlo Santana MD [address] [place] [address] PCP - General Internal Medicine 12/28/17 documented as of this encounter
--- OUTSIDE RECORDS SUMMARY | 2024-04-11 13:34 | XMS_ITS | Encounter Summary ---
Author Organization [employer] Address 75 [facility] 7 [place] [address] Care Team Providers Care Bond Underwriter Name Role Phone Carlo Santana MD Primary Care Provider +1- [phone] Reason for Visit * Reason Onset Date Comments Med Refill 03/21/2024 Encounter Details Date Type Department Care Team (Late st Contact Info) Description 03/21/2024 Refill [facility] MEDICINE 230 [place] [address] Carlo Santana MD 505 [place], [place] [phone] Chronic left-sided low back pain with left-sided [...] MG tablet To be sent to: [facility]/pharmacy #[id number] - [place] - [address] [facility] documented in this encounter Plan of Treatment Upcoming Encounters Date Type Department Care Team ([facility] st Contact Info) Description 05/31/2024 11:00 AM EDT Clinical Support [facility] MED & PEDS 505 [place] [address] 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, HUGO 505 [place] [address] documented as of this encounter Visit Diagnoses Diagnosis Chronic left-sided low back pain with left-sided sciatica documented in this encounter Additional Health Concerns Assessment Noted Time PHQ-9 Depression Total Score: 15 024 11:50 AM EST documented as of this encounter Care Teams Bond Underwriter Relationship Specialty Start Date End Date Carlo Santana MD [address] [place] [address] PCP - General Internal Medicine 12/28/17 documented as of this encounter
--- OUTSIDE RECORDS SUMMARY | 2024-04-11 13:34 | XMS_ITS | Encounter Summary ---
Author Organization [employer] Address 75 [facility] 7 [place] [address] Care Team Providers Care Behavioral Services Tech Name Role Phone Carlo Santana MD Primary Care Provider +1- [phone] Reason for Visit * Reason Onset Date Comments Medication Question 08/15/2023 Encounter Details Date Type Department Care Team ([facility] st Contact Info) Description 08/15/2023 Telephone [facility] MEDICINE 230 [place] [address] Carlo Santana MD [address] [facility] [address] [place], [place] [phone] Medication Question Social History Tobacco Use Types [...] until they are seen. Please contact at [phone] documented in this encounter Plan of Treatment Upcoming Encounters Date Type Department Care Team (Late st Contact Info) Description 05/31/2024 11:00 AM EDT Clinical Support [facility] MED & PEDS 505 [place] [address] 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, RN 505 [place] [address] documented as of this encounter Visit Diagnoses Not on filedocumented in this encounter Additional Health Concerns Assessment Noted Time PHQ-9 Depression Total Score: 3 06/04/19 23 3:42 PM EDT documented as of this encounter Care Teams Behavioral Services Tech Relationship Specialty Start Date End Date Carlo Santana MD 505 [place] [address] PCP - General Internal Medicine 12/28/17 documented as of this encounter
--- OUTSIDE RECORDS SUMMARY | 2024-04-11 13:34 | XMS_ITS | Encounter Summary ---
Author Organization [employer] Address 75 [facility] 7 [place] [address] Care Team Providers Care Correctional Counselor/Case Manager Name Role Phone Carlo Santana MD Primary Care Provider +1- [phone] Reason for Visit * Reason Onset Date Comments Prior Authorization 02/07/2024 Encounter Details Date Type Department Care Team ([facility] st Contact Info) Description 02/07/2024 Telephone [facility] MEDICINE 230 [place] [address] Carlo Santana MD 505 [place] [address] Prior Authorization Social History Tobacco Use Types [...] Description 05/31/2024 11:00 AM EDT Clinical Support [facility] CHC MED & PEDS 505 [place] [address] 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, RN 505 [place] [address] documented as of this encounter Visit Diagnoses Not on filedocumented in this encounter Additional Health Concerns Assessment Noted Time PHQ-9 Depression Total Score: 15 024 11:50 AM EST documented as of this encounter Care Teams Correctional Counselor/Case Manager Relationship Specialty Start Date End Date Carlo Santana MD [address] [place] [address] PCP - General Internal Medicine 12/28/17 documented as of this encounter
--- OUTSIDE RECORDS SUMMARY | 2024-04-11 13:34 | XMS_ITS | Encounter Summary ---
Author Organization [facility] Address [address] [facility] [place] [address] Care Team Providers Care Allopathic Doctor Name Role Phone Chandni Boogie MD Primary Care Provider Unavailable Mary Lott MD Primary Care Provider Unavail able Maria Antonia Gerber MD Primary Care Provider Unavaila [facility], Pcp Primary Care Provider Unavailabl e Encounter Details Date Type Department Care Team Description 05/23/2014 Release of Information Medical Records [address] [place] [address] [facility] [place] [address] Abstract, Provider Social History Tobacco Use Types Packs/Day Years Used Date Smoking Tobacco: Never Smokeless Tobacco: Never Alcohol Use Standard Drinks/Week Comments No 0 (1 standard drink = 0.6 oz pur e alcohol) Sex Assigned at Date Recorded Not on file documented as of this encounter Plan of Treatment Not on file documented as of this encounter Visit Diagnoses Not on filedocumented in this encounter Care Teams Allopathic Doctor Relationship Specialty Start Date End Date Chandni Boogie MD PCP - General Internal Medicine 06/09/1204/19 Mary Lott MD PCP - General Internal Medicine 04/20/16 07/15/16 Maria Antonia Gerber MD PCP - General Internal Medicine 07/16/16 01/22/18 [facility], [facility] PCP - General Internal Medicine 01/23/18 documented as of this encounter
--- OUTSIDE RECORDS SUMMARY | 2024-04-11 13:34 | XMS_ITS | Encounter Summary ---
Author Organization [facility] Address [address] [facility] [place] [address] Care Team Providers Care Human Service Technician Name Role Phone Chandni Boogie MD Primary Care Provider Unavailable Mary oLtt MD Primary Care Provider Unavail able Maria Antonia Gerber MD Primary Care Provider Unavaila [facility], Pcp Primary Care Provider Unavailabl e Encounter Details Date Type Department Care Team Description 04/08/2014 Release of Information Medical Records [address] [place] [address] [facility] [place] [address] Abstract, Provider Social History Tobacco Use Types [...] on filedocumented in this encounter Care Teams Human Service Technician Relationship Specialty Start Date End Date Chandni Boogie MD PCP - General Internal Medicine 06/09/1204/19 Mary Lott MD PCP - General Internal Medicine 04/20/16 07/15/16 Maria Antonia Gerber MD PCP - General Internal Medicine 07/16/16 01/22/18 [facility] PCP - General Internal Medicine 01/23/18 documented as of this encounter
--- OUTSIDE RECORDS SUMMARY | 2024-04-11 13:34 | XMS_ITS | Encounter Summary ---
Author Organization [employer] Address [address] [place] [address] 7 [place] [address] Care Team Providers Care Assurance Analyst Name Role Phone Carlo Santana MD Primary Care Provider +1- [phone] Reason for Visit * Reason Comments Med Refill Encounter Details Date Type Department Care Team ([facility] Contact Info) Description 03/15/2024 Refill [facility] MED & PEDS 505 [place] [address] Carlo Santana MD 505 [place] [address] Hypoproteinemia (CMS/HCC) Social History Tobacco Use Types [...] Description 05/31/2024 11:00 AM EDT Clinical Support [facility] MED & PEDS 505 [place] [address] 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, HUGO 505 [place] [address] documented as of this encounter Visit Diagnoses Diagnosis Hypoproteinemia (CMS/HCC) Other disorders of plasma protein metabolism documented in this encounter Additional Health Concerns Assessment Noted Time PHQ-9 Depression Total Score: 15 024 11:50 AM EST documented as of this encounter Care Teams Assurance Analyst Relationship Specialty Start Date End Date Carlo Santana MD 505 [place] [address] PCP - General Internal Medicine 12/28/17 documented as of this encounter
--- OUTSIDE RECORDS SUMMARY | 2024-04-11 13:34 | XMS_ITS | Encounter Summary ---
Author Organization [employer] Address [address] [place] [address] 7 [place] [address] Care Team Providers Care Bank Vault Clerk Name Role Phone Carlo Santana MD Primary Care Provider +1- [phone] Reason for Visit * Reason Comments controlled substance treatment Encounter Details Date Type Department Care Team ([facility] Contact Info) Description 03/12/2024 9:30 AM EST Telemedicine [facility] CHC MED & PEDS 505 [place] [address] 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, RN 505 [place] [address] Chronic left-sided low back pain with left-sided [...] RN - 03/12/2024 9:30 AM EST 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 Patient is taking Percocet 7.5-325mg Q [...] questions/ concerns at this time. 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 DIRECTOR CARD checked on 03/12/24. No discrepancies noted. Pill count performed over the phone. Patient stated she has 56 Percocet left, 54 expected. 0 Clonazepam, 0 expected. Medication isnot being overused. A: Chronic opioid use r/t chronic pain. P: Patient to cont. with current pain medication regimen, and take medications only as directed. f/u for next HIGH SCHOOL MATHEMATICS TEACHER [place], scheduled for 05/31/24 @11am. f/u sooner PRN. Patient verbalized understanding andagreed to plan. documented in this encounter Plan of Treatment Upcoming Encounters Date Type Department Care Team ([facility] st Contact Info) Description 05/31/2024 11:00 AM EDT Clinical Support [facility] MED & PEDS 505 [place] [address] 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 RN 505 [place] [address] documented as of this encounter Visit Diagnoses Diagnosis Chronic left-sided low back pain with left-sided sciatica documented in this encounter Additional Health Concerns Assessment Noted Time PHQ-9 Depression Total Score: 15 024 11:50 AM EST documented as of this encounter Care Teams Bank Vault Clerk Relationship Specialty Start Date End Date Carlo Santana MD 505 [place] [address] PCP - General Internal Medicine 12/28/17 documented as of this encounter
--- OUTSIDE RECORDS SUMMARY | 2024-04-11 13:35 | XMS_ITS | Encounter Summary ---
Author Organization [employer] Address 75 [facility] 7 [place] [address] Care Team Providers Care Human Resources Officer Name Role Phone Carlo Santana MD Primary Care Provider +1- [phone] Reason for Visit * Reason Onset Date Comments Med Refill 12/27/2023 Encounter Details Date Type Department Care Team ([facility] st Contact Info) Description 12/27/2023 Telephone [facility] MEDICINE 230 [place] [address] Carlo Santana MD [address] [facility] [address] [place], [place] [phone] Med Refill Social History Tobacco Use Types [...] [facility] 505 [place] [address] 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 RN 505 [place] [address] documented as of this encounter Visit Diagnoses Not on filedocumented in this encounter Additional Health Concerns Assessment Noted Time PHQ-9 Depression Total Score: 3 06/04/19 23 3:42 PM EDT documented as of this encounter Care Teams Human Resources Officer Relationship Specialty Start Date End Date Carlo Santana MD 505 [place] [address] PCP - General Internal Medicine 12/28/17 documented as of this encounter
--- OUTSIDE RECORDS SUMMARY | 2024-04-11 13:35 | XMS_ITS | Encounter Summary ---
Author Organization [employer] Address [address] [facility] 7 [place] [address] Care Team Providers Care Equal Opportunity Specialist Name Role Phone Carlo Santana MD Primary Care Provider +1- [phone] Reason for Visit * Reason Onset Date Comments Appointment Request 01/31/2023 Encounter Details Date Type Department Care Team ([facility] st Contact Info) Description 01/31/2023 Telephone [facility] MEDICINE [address] [place] [address] Carlo Santana MD [address] [place], [place] [phone] Appointment Request Social History Tobacco Use Types [...] go over XRAY results. Please contact at [phone] documented in this encounter Plan of Treatment Upcoming Encounters Date Type Department Care Team ([facility] st Contact Info) Description 05/31/2024 11:00 AM EDT Clinical Support [facility] MED & PEDS 505 [place] [address] 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 RN 505 [place] [address] documented as of this encounter Visit Diagnoses Not on filedocumented in this encounter Additional Health Concerns Assessment Noted Time PHQ-9 Depression Total Score: 3 06/04/19 23 3:42 PM EDT documented as of this encounter Care Teams Equal Opportunity Specialist Relationship Specialty Start Date End Date Carlo Santana MD 505 [place] [address] PCP - General Internal Medicine 12/28/17 documented as of this encounter
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
--- OUTSIDE RECORDS SUMMARY | 2024-04-11 13:35 | XMS_ITS | Encounter Summary ---
Author Organization [employer] Address [address] [place] [address] 7 [place] [address] Care Team Providers Care Gluing Machine Operator Automatic Name Role Phone Carlo Santana MD Primary Care Provider +1- [phone] Encounter Details Date Type Department Care Team ([facility] st Contact Info) Description 01/19/2023 Orders Only [facility] CH[facility] MED & PEDS 505 [place], [place] [phone] Carlo Santana MD 505 [place], [place] [phone] Neck pain (Primary Dx); Chronic left-sided low [...] Upcoming Encounters Date Type Department Care Team ([facility] st Contact Info) Description 05/31/2024 11:00 AM EDT Clinical Support [facility] MED & PEDS 505 [place] [address] 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 RN 505 [place] [address] documented as of this encounter Visit Diagnoses Diagnosis Neck pain- Primary Cervicalgia Chronic left-sided low back pain with left-sided sciatica documented in this encounter Additional Health Concerns Assessment Noted Time PHQ-9 Depression Total Score: 3 06/04/19 23 3:42 PM EDT documented as of this encounter Care Teams Gluing Machine Operator Automatic Relationship Specialty Start Date End Date Carlo Santana MD 505 [place] [address] PCP - General Internal Medicine 12/28/17 documented as of this encounter
--- OUTSIDE RECORDS SUMMARY | 2024-04-11 13:35 | XMS_ITS | Encounter Summary ---
Author Organization [employer] Address [address] [facility] 7 [place] [address] Care Team Providers Care Travel Services Professional Name Role Phone Carlo Santana MD Primary Care Provider +1- [phone] Reason for Visit * Reason Onset Date Comments Call Back Request 07/20/2023 Encounter Details Date Type Department Care Team ([facility] st Contact Info) Description 07/20/2023 Telephone [facility] MEDICINE 230 [place] [address] Carlo Santana MD [address] [facility] [address] [place], [place] [phone] Call Back Request Social History Tobacco Use [...] [facility] 505 [place] [address] 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, HUGO 505 [place] [address] documented as of this encounter Visit Diagnoses Not on filedocumented in this encounter Additional Health Concerns Assessment Noted Time PHQ-9 Depression Total Score: 3 06/04/19 23 3:42 PM EDT documented as of this encounter Care Teams Travel Services Professional Relationship Specialty Start Date End Date Carlo Santana MD 505 [place] [address] PCP - General Internal Medicine 12/28/17 documented as of this encounter
--- OUTSIDE RECORDS SUMMARY | 2024-04-11 13:35 | XMS_ITS | Encounter Summary ---
Author Organization [employer] Address [address] [facility] 7 [place] [address] Care Team Providers Care Linux Systems Analyst Name Role Phone Carlo Santana MD Primary Care Provider +1- [phone] Reason for Visit * Reason Onset Date Comments Triage 08/10/2022 Encounter Details Date Type Department Care Team (Late st Contact Info) Description 08/10/2022 Telephone [facility] MEDICINE 230 [place] [address] Carlo Santana MD [address] [facility] [address] [place], [place] [phone] Triage Social History Tobacco Use Types Packs/Day [...] caller accepted this outcome Please contact at [phone] documented in this encounter Plan of Treatment Upcoming Encounters Date Type Department Care Team ([facility] st Contact Info) Description 05/31/2024 11:00 AM EDT Clinical Support [facility] CH[facility] MED & PEDS 505 [place] [address] 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, RN 505 [place] [address] documented as of this encounter Visit Diagnoses Not on filedocumented in this encounter Additional Health Concerns Assessment Noted Time PHQ-9 Depression Total Score: 3 06/04/19 23 3:42 PM EDT documented as of this encounter Care Teams Linux Systems Analyst Relationship Specialty Start Date End Date Carlo Santana MD [address] [place] [address] PCP - General Internal Medicine 12/28/17 documented as of this encounter
--- OUTSIDE RECORDS SUMMARY | 2024-04-11 13:35 | XMS_ITS | Encounter Summary ---
Author Organization [employer] Address [address] [facility] 7 [place] [address] Care Team Providers Care Day Care Aide Name Role Phone Carlo Santana MD Primary Care Provider +1- [phone] Reason for Visit * Reason Onset Date Comments Med Refill 08/10/2022 Encounter Details Date Type Department Care Team (Late st Contact Info) Description 08/10/2022 Telephone [facility] MEDICINE 230 [place] [address] Carlo Santana MD 505 [place], [place] [phone] Med Refill Social History Tobacco Use Types [...] Tc from pt requesting refill for HYDROcodone-acetaminophen ([place]) 5-325 MG tablet documented in this encounter Plan of Treatment Upcoming Encounters Date Type Department Care Team (Late st Contact Info) Description 05/31/2024 11:00 AM EDT Clinical Support [facility] MED & PEDS 505 [place] [address] 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, HUGO 505 [place] [address] documented as of this encounter Visit Diagnoses Not on filedocumented in this encounter Additional Health Concerns Assessment Noted Time PHQ-9 Depression Total Score: 3 06/04/19 23 3:42 PM EDT documented as of this encounter Care Teams Day Care Aide Relationship Specialty Start Date End Date Carlo Santana MD [address] [place] [address] PCP - General Internal Medicine 12/28/17 documented as of this encounter
--- OUTSIDE RECORDS SUMMARY | 2024-04-11 13:35 | XMS_ITS | Encounter Summary ---
Author Organization [facility] Address [address] [facility] [place] [address] Care Team Providers Care Pipe Cleaning Machine Operator Name Role Phone Chandni Boogie MD Primary Care Provider Unavailable Mary Lott MD Primary Care Provider Unavail able Maria Antonia Gerber MD Primary [facility] Primary Care Provider Unavailabl e Reason for Visit * Reason Onset Date Comments Testing 04/12/2016 Encounter Details Date Type Department Care Team Description 04/12/2016 Telephone Radiology - [address] [address] Peri Hancock, [facility] [address] [place] [address] Testing Social History Tobacco Use Types Packs/Day Years Used Date Smoking Tobacco: Never Smokeless Tobacco: Never Alcohol Use Standard Drinks/Week Comments Yes 0 (1 standard drink = 0.6 oz pur e alcohol) Sex Assigned at Date Recorded Not on file documented as of this encounter Miscellaneous Notes * Telephone Encounter - April Darnell - 04/12/2016 12:07 PM EST Peri Sandy has not responded to the telephone calls that were made as well as the letter that was sent to schedule a SONO PELVIS COMPLETE ordered 12/04/15 Therefore we are removing the test from our Scheduled Orders Report. Please note that this test must be reordered if required in the future. Thank you, Radiology documented in this encounter Plan of Treatment Not on file documented as of this encounter Visit Diagnoses Not on filedocumented in this encounter Care Teams Pipe Cleaning Machine Operator Relationship Specialty Start Date End Date Chandni Boogie MD PCP - General Internal Medicine 06/09/1204/19 Mary Lott MD PCP - General Internal Medicine 04/20/16 07/15/16 Maria Antonia Gerber MD PCP - General Internal Medicine 07/16/16 01/22/18 [facility] PCP - General Internal Medicine 01/23/18 documented as of this encounter
--- OUTSIDE RECORDS SUMMARY | 2024-04-11 13:35 | XMS_ITS | Encounter Summary ---
Author Organization [employer] Address [address] [facility] 7 [place] [address] Care Team Providers Care Second Baker Name Role Phone Carlo Santana MD Primary Care Provider +1- [phone] Reason for Visit * Reason Onset Date Comments Prior Authorization 12/27/2023 Encounter Details Date Type Department Care Team ([facility] st Contact Info) Description 12/27/2023 Telephone [facility] MEDICINE 230 [place] [address] Carlo Santana MD 505 [place] [address] Prior Authorization Social History Tobacco Use Types [...] approval. Pending decision. [facility]. * Telephone Encounter - Braden Cool - 12/27/2023 8:12 AM EDT Tc from pt stating script for clonazePAM (KlonoPIN) 1 MG tablet requires a PA. documented in this encounter Plan of Treatment Upcoming Encounters Date Type Department Care Team (Late st Contact Info) Description 05/31/2024 11:00 AM EDT Clinical Support [facility] MED & PEDS [address] [facility] [place] [address] 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, HUGO 505 [facility] [place] [address] documented as of this encounter Visit Diagnoses Not on filedocumented in this encounter Additional Health Concerns Assessment Noted Time PHQ-9 Depression Total Score: 3 06/04/19 23 3:42 PM EDT documented as of this encounter Care Teams Second Baker Relationship Specialty Start Date End Date Carlo Santana MD [address] [place] [address] PCP - General Internal Medicine 12/28/17 documented as of this encounter
--- OUTSIDE RECORDS SUMMARY | 2024-04-11 13:35 | XMS_ITS | Encounter Summary ---
Author Organization [employer] Address [address] [facility] 7 [place] [address] Care Team Providers Care Programmer Analyst Consultant Name Role Phone Carlo Santana MD Primary Care Provider +1- [phone] Reason for Visit * Reason Onset Date Comments Referral 07/25/2023 Encounter Details Date Type Department Care Team (Late st Contact Info) Description 07/25/2023 Telephone [facility] MEDICINE 230 [place] [address] Carlo Santana MD [address] [facility] [address] [place], [place] [phone] Referral Social History Tobacco Use Types Packs/Day [...] in regards to moving pain management to [facility] in [place]. Pt stated she called the [place] office and it didn't go well. States [...] with switching locations. Please contact pt at [phone] * Telephone Encounter - Rand Savage RN - 07/28/2023 2:55 PM EDT Returned call to pt regarding message below. Pt stated she did not say another referral to Urology she said pain management. Pt is currently seen Pain management in [place] and has tried two different doctors. The first one told her her pain was in her head, and was very rude and dismissive. The socond doctor, she stated was no well prepared for her visit and not aware of what she has tried and not tried. I advised pt that if she decides to go with a different location, the wait times for ENGINEERING PROGRAMMER appts can be lengthy. Pt advised if maybe she can try to resolve issues directly with this office so there won't be a lapse in care. Pt states she will call [place] office and speak to their manager asset andsee if maybe she can try another provider. Pt advised to call their office and based on response they give her she can think about it and decide and speak with PCP next on appt. Pt agrees with plan. Will send to PCP as FYI and if pt does decide she will wants to switch she would like a location in [place]. * Telephone Encounter - Quan Mena - 07/25/2023 3:01 PM EDT Tc from pt calling in regards to urology referral, stating she's not satisfied with care and would like to change location. Pt is requesting to be referred to [facility] instead pt provided location [address] [facility]. If nay questions you can contact pt at [phone]. documented in this encounter Plan of Treatment Upcoming Encounters Date Type Department Care Team (Late st Contact Info) Description 05/31/2024 11:00 AM EDT Clinical Support [facility] CHC MED & PEDS 505 [place] [address] 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 RN 505 [place] [address] documented as of this encounter Visit Diagnoses Not on filedocumented in this encounter Additional Health Concerns Assessment Noted Time PHQ-9 Depression Total Score: 3 06/04/19 23 3:42 PM EDT documented as of this encounter Care Teams Programmer Analyst Consultant Relationship Specialty Start Date End Date Carlo Santana MD 505 [place] [address] PCP - General Internal Medicine 12/28/17 documented as of this encounter
--- OUTSIDE RECORDS SUMMARY | 2024-04-11 13:35 | XMS_ITS | Encounter Summary ---
Author Organization [employer] [facility] Address [address] [place] [address] 7 [place] [address] Care Team Providers Care Public Relations Officer Name Role Phone Carlo Santana MD Primary Care Provider +1- [phone] Encounter Details Date Type Department Care Team (Latest Contact Info) Description 01/18/2019 Abstract [facility] CONVERSIONS Dental, Provider, DDS Social History [...] Description 05/31/2024 11:00 AM EDT Clinical Support [facility] CHC MED & PEDS 505 [place] [address] 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, HUGO 505 [place] [address] documented as of this encounter Visit Diagnoses Not on filedocumented in this encounter Care Teams Public Relations Officer Relationship Specialty Start Date End Date Carlo Santana MD 505 [place] [address] PCP - General Internal Medicine 12/28/17 documented as of this encounter
--- OUTSIDE RECORDS SUMMARY | 2024-04-11 13:35 | XMS_ITS | Encounter Summary ---
Author Organization [facility] Address [address] [facility] [place] [address] Care Team Providers Care Licensed Final Expense Agents Name Role Phone Chandni Boogie MD Primary Care Provider Unavailable Mary Lott MD Primary Care Provider Unavail able Maria Antonia Gerber MD [facility] Primary Care Provider Unavailabl e Reason for Visit * Reason Onset Date Comments Faxed Refill 04/14/2016 Encounter Details Date Type Department Care Team Description 04/14/2016 Refill Dermatology - [address] [phone] Curtis Vasques PA-C Faxed Refill Social History Tobacco Use Types Packs/Day Years Used Date Smoking Tobacco: Never Smokeless Tobacco: Never Alcohol Use Standard Drinks/Week Comments Yes 0 (1 standard drink = 0.6 oz pur e alcohol) Sex Assigned at Date Recorded Not on file documented as of this encounter Miscellaneous Notes * Telephone Encounter - Anabell Somers C.M.A. - 04/14/2016 1:05 PM EST Pt said her acne is good. She takes one Spironolactone 100 mg qd and Minocycline 100 mg BID. Pt checks her BP daily and it is good. Pt advised to attempt to decrease Minocycline 100 mg to qd. Pt advised lab work is needed and order placed. * Telephone Encounter - Kaitlynn Noble - 04/14/2016 11:38 AM EST Patient would like script to be: E-PRESCRIBED/FAXED TO PHARMACY WHEN WAS THE PATIENT'S LAST APPOINTMENT IN ADULT MEDICINE? WHEN WAS THE LAST TIME THE PATIENT SAW THEIR PCP? Does patient have an upcoming appointment? (THE MEDICATION REQUESTED IS ON THE MED LIST ABOVE) All of the medications requested were on the CURRENT MEDS list Did you check the Pharmacy information above?: YES Patient wants: 30 -day supply Is this a mail order prescription request ? NO Patients current insurance carrier is: Payor: [facility] MEDICAID / Plan: [place] MEDICAID HMO $0 [place] / Product Type: HMO [id number] documented in this encounter Plan of Treatment Not on file documented as of this encounter Visit Diagnoses Not on filedocumented in this encounter Care Teams Licensed Final Expense Agents Relationship Specialty Start Date End Date Chandni Boogie MD PCP - General Internal Medicine 06/09/1204/19 Mary Lott MD PCP - General Internal Medicine 04/20/16 07/15/16 Maria Antonia Gerber MD PCP - General Internal Medicine 07/16/16 01/22/18 [facility] Jose Eduardo PCP - General Internal Medicine 01/23/18 documented as of this encounter
--- OUTSIDE RECORDS SUMMARY | 2024-04-11 13:35 | XMS_ITS | Encounter Summary ---
Author Organization [employer] Address [address] [facility] 7 [place] [address] Care Team Providers Care Medical Leader Name Role Phone Carlo Santana MD Primary Care Provider +1- [phone] Reason for Visit * Reason Onset Date Comments triage 08/10/2022 Encounter Details Date Type Department Care Team (Late st Contact Info) Description 08/10/2022 Telephone [facility] MEDICINE 230 [place] [address] Carlo Santana MD [address] [facility] [address] [place], [place] [phone] triage Social History Tobacco Use Types Packs/Day [...] Description 05/31/2024 11:00 AM EDT Clinical Support [facility] MED & PEDS 505 [place] [address] 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 RN 505 [place] [address] documented as of this encounter Visit Diagnoses Not on filedocumented in this encounter Additional Health Concerns Assessment Noted Time PHQ-9 Depression Total Score: 3 06/04/19 23 3:42 PM EDT documented as of this encounter Care Teams Medical Leader Relationship Specialty Start Date End Date Carlo Santana MD 505 [place] [address] PCP - General Internal Medicine 12/28/17 documented as of this encounter
--- OUTSIDE RECORDS SUMMARY | 2024-04-11 13:35 | XMS_ITS | Encounter Summary ---
Author Organization [employer] Address [address] [facility] 7 [place] [address] Care Team Providers Care Drum Saw Operator Name Role Phone Carlo Santana MD Primary Care Provider +1- [phone] Reason for Visit * Reason Onset Date Comments Med Refill 01/14/2023 Encounter Details Date Type Department Care Team ([facility] st Contact Info) Description 01/14/2023 Telephone [facility] MEDICINE 230 [place] [address] Carlo Santana MD [address] [facility] [address] [place], [place] [phone] Med Refill Social History Tobacco Use Types [...] Description 05/31/2024 11:00 AM EDT Clinical Support [facility] MED & PEDS 505 [place] [address] 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, HUGO 505 [place] [address] documented as of this encounter Visit Diagnoses Not on filedocumented in this encounter Additional Health Concerns Assessment Noted Time PHQ-9 Depression Total Score: 3 06/04/19 23 3:42 PM EDT documented as of this encounter Care Teams Drum Saw Operator Relationship Specialty Start Date End Date Carlo Santana MD 505 [place] [address] PCP - General Internal Medicine 12/28/17 documented as of this encounter
--- OUTSIDE RECORDS SUMMARY | 2024-04-11 13:35 | XMS_ITS | Encounter Summary ---
Author Organization [employer] Address 75 [facility] 7 [place] [address] Care Team Providers Care Baker Test Name Role Phone Carlo Santana MD Primary Care Provider +1- [phone] Reason for Visit * Reason Comments Med Refill Encounter Details Date Type Department Care Team ([facility] st Contact Info) Description 01/16/2023 Refill [facility] MEDICINE 230 [place] [address] Carlo Santana MD 505 [place], [place] [phone] Muscle spasm Social History Tobacco Use Types [...] [facility] MED & PEDS 505 [place] [address] 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 RN 505 [place] [address] documented as of this encounter Visit Diagnoses Diagnosis Muscle spasm Spasm of muscle documented in this encounter Additional Health Concerns Assessment Noted Time PHQ-9 Depression Total Score: 3 06/04/19 23 3:42 PM EDT documented as of this encounter Care Teams Baker Test Relationship Specialty Start Date End Date Carlo Santana MD [address] [place] [address] PCP - General Internal Medicine 12/28/17 documented as of this encounter
--- OUTSIDE RECORDS SUMMARY | 2024-04-11 13:35 | XMS_ITS | Encounter Summary ---
Author Organization [employer] Address [address] [place] [address] 7 [place] [address] Care Team Providers Care Continuous Still Operator Name Role Phone Carlo Santana MD Primary Care Provider +1- [phone] Reason for Visit * Reason Onset Date Comments Medication Question 01/25/2023 Encounter Details Date Type Department Care Team ([facility] st Contact Info) Description 01/25/2023 Telephone [facility] CH[facility] MED & PEDS [address] [place] [address] Carlo Santana MD [address] [place] [address] Medication Question Social History Tobacco Use Types [...] returning phone call Please contact pt at [phone] * Telephone Encounter - Rand Savage RN [...] losing any weight. Please contact pt at [phone] documented in this encounter Plan of Treatment Upcoming Encounters Date Type Department Care Team (Late st Contact Info) Description 05/31/2024 11:00 AM EDT Clinical Support [facility] MED & PEDS [address] [place] [address] 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, RN [address] [place] [address] documented as of this encounter Visit Diagnoses Diagnosis Low back pain radiating down leg documented in this encounter Additional Health Concerns Assessment Noted Time PHQ-9 Depression Total Score: 3 06/04/19 23 3:42 PM EDT documented as of this encounter Care Teams Continuous Still Operator Relationship Specialty Start Date End Date Carlo Santana MD [address] [place] [address] PCP - General Internal Medicine 12/28/17 documented as of this encounter
--- OUTSIDE RECORDS SUMMARY | 2024-04-11 13:35 | XMS_ITS | Encounter Summary ---
Author Organization [employer] Address [address] [facility] 7 [place] [address] Care Team Providers Care Technology Administrator Name Role Phone Carlo Santana MD Primary Care Provider +1- [phone] Reason for Visit * Reason Onset Date Comments Medication Question 12/01/2022 Encounter Details Date Type Department Care Team ([facility] st Contact Info) Description 12/01/2022 Telephone [facility] MEDICINE [address] [place] [address] Carlo Santana MD [address] [employer] [place], [place] [phone] Medication Question Social History Tobacco Use Types [...] an increase in grams. Please contact at [phone] documented in this encounter Plan of Treatment Upcoming Encounters Date Type Department Care Team ([facility] Contact Info) Description 05/31/2024 11:00 AM EDT Clinical Support [facility] MED & PEDS [address] [place] [address] 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 RN 505 [place] [address] documented as of this encounter Visit Diagnoses Not on filedocumented in this encounter Additional Health Concerns Assessment Noted Time PHQ-9 Depression Total Score: 3 06/04/19 23 3:42 PM EDT documented as of this encounter Care Teams Technology Administrator Relationship Specialty Start Date End Date Carlo Santana MD [address] [place] [address] PCP - General Internal Medicine 12/28/17 documented as of this encounter
--- OUTSIDE RECORDS SUMMARY | 2024-04-11 13:35 | XMS_ITS | Encounter Summary ---
Author Organization [employer] Address [address] [facility] 7 [place] [address] Care Team Providers Care Crop Grain Or Livestock Farmer Name Role Phone Carlo Santana MD Primary Care Provider +1- [phone] Reason for Visit * Reason Onset Date Comments Referral 07/26/2022 Encounter Details Date Type Department Care Team (Late st Contact Info) Description 07/26/2022 Telephone [facility] MEDICINE [address] [place] [address] Carlo Santana MD [address] [place], [place] [phone] Referral Social History Tobacco Use Types Packs/Day [...] was not satisfied. Please contact pt at [phone] documented in this encounter Plan of Treatment Upcoming Encounters Date Type Department Care Team (Late st Contact Info) Description 05/31/2024 11:00 AM EDT Clinical Support [facility] MED & PEDS [address] [place] [address] 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, RN [address] [place] [address] documented as of this encounter Visit Diagnoses Not on filedocumented in this encounter Additional Health Concerns Assessment Noted Time PHQ-9 Depression Total Score: 3 06/04/19 23 3:42 PM EDT documented as of this encounter Care Teams Crop Grain Or Livestock Farmer Relationship Specialty Start Date End Date Carlo Santana MD [address] [place] [address] PCP - General Internal Medicine 12/28/17 documented as of this encounter
--- OUTSIDE RECORDS SUMMARY | 2024-04-11 13:35 | XMS_ITS | Encounter Summary ---
Author Organization [employer] Address [address] [facility] 7 [place] [address] Care Team Providers Care Dye House Hand Name Role Phone Carlo Santana MD Primary Care Provider +1- [phone] Reason for Visit * Reason Onset Date Comments Med Refill 01/17/2023 Encounter Details Date Type Department Care Team ([facility] st Contact Info) Description 01/17/2023 Telephone [facility] MEDICINE [address] [place] [address] Carlo Santana MD [address] [place], [place] [phone] Med Refill Social History Tobacco Use Types [...] capsule & Hydroxyzine HCL 25 mg however speech writer does not script on med list, Please contact at [phone] documented in this encounter Plan of Treatment Upcoming Encounters Date Type Department Care Team ([facility] st Contact Info) Description 05/31/2024 11:00 AM EDT Clinical Support [facility] MED & PEDS [address] [place] [address] 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 RN [address] [place] [address] documented as of this encounter Visit Diagnoses Not on filedocumented in this encounter Additional Health Concerns Assessment Noted Time PHQ-9 Depression Total Score: 3 06/04/19 23 3:42 PM EDT documented as of this encounter Care Teams Dye House Hand Relationship Specialty Start Date End Date Carlo Santana MD [address] [place] [address] PCP - General Internal Medicine 12/28/17 documented as of this encounter
--- OUTSIDE RECORDS SUMMARY | 2024-04-11 13:35 | XMS_ITS | Encounter Summary ---
Author Organization [employer] Address [address] [facility] 7 [place] [address] Care Team Providers Care Butcher Name Role Phone Carlo Santana MD Primary Care Provider +1- [phone] Reason for Visit * Reason Onset Date Comments Call Back Request 02/28/2024 Encounter Details Date Type Department Care Team ([facility] st Contact Info) Description 02/28/2024 Telephone [facility] MEDICINE [address] [place] [address] Carlo Santana MD [address] [place] [address] Call Back Request Social History Tobacco Use [...] Upcoming Encounters Date Type Department Care Team ([facility] st Contact Info) Description 05/31/2024 11:00 AM EDT Clinical Support [facility] MED & PEDS [address] [place] [address] 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 RN [address] [place] [address] documented as of this encounter Visit Diagnoses Not on filedocumented in this encounter Additional Health Concerns Assessment Noted Time PHQ-9 Depression Total Score: 15 024 11:50 AM EST documented as of this encounter Care Teams Butcher Relationship Specialty Start Date End Date aCrlo Santana MD [address] [place] [address] PCP - General Internal Medicine 12/28/17 documented as of this encounter
--- OUTSIDE RECORDS SUMMARY | 2024-04-11 13:35 | XMS_ITS | Encounter Summary ---
Author Organization [employer] Address [address] [place] [address] Care Team Providers Care Bender Helper Name Role Phone Carlo Santana MD Primary Care Provider +1- [phone] Reason for Referral * Imaging (Routine) - Closed Specialty Diagnoses / Procedures Referred By Contac t Referred To Contact Diagnoses Right ovarian cyst Procedures Us Pelvis complete Carlo Santana MD [address] [place] [address] Phone: tel: fax: [address] Phone: tel: fax: Referral ID Status Reason Start Date Expiration Date Visits Re quested Visits Authorized [id number] Closed 07/08/2022 01/04/2023 1 1 * Imaging (Routine) - Closed Specialty Diagnoses / Procedures Referred By Contac t Referred To Contact Diagnoses Right ovarian cyst Procedures US Pelvis Transvaginal Carlo Santana MD [address] [place] [address] Phone: tel: fax: [address] Phone: tel: fax: Referral ID Status Reason Start Date Expiration Date Visits Re quested Visits Authorized [id number] Closed 07/08/2022 01/04/2023 1 1 Encounter Details Date Type Department Care Team ([facility] Contact Info) Description 07/08/2022 Orders Only [facility] MED & PEDS [address] [place] [address] Carlo Santana MD [address] [place] [address] Right ovarian cyst (Primary Dx) Social History [...] Upcoming Encounters Date Type Department Care Team ([facility] Contact Info) Description 05/31/2024 11:00 AM EDT Clinical Support [facility] MED & PEDS [address] [place] [address] 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 RN [address] [place] [address] Scheduled Orders Name Type Priority Associated Diagnoses [...] Anti Nuclear Antibody Screen POSITIV E(A) NEGATIVE [facility] Comment:TRUDY IFA is a first l ine screen for detecting thepresence of up to approximately 150 autoantibodies invarious autoimmune diseases. A positive TRUDY IFA resultis suggestive of autoimmune disease and reflexes totiter and pattern. Further laboratory testing may beconsidered if clinically indicated.For additional information, please refer tohttp://education.1Cast/faq/CKX215(This link is being provided for informational/educational purposes only.) TRUDY Titer 1:640(A ) titer [facility] Comment:Reference Range <1:4 0 Negative 1:40-1:80 Low Antibody Level >1:80 Elevated Antibody Level TRUDY Pattern Nuclear , Homogen eous(A) [facility] Comment:Homogeneous pattern is associated with systemic lupuserythematosus (SLE), drug-induced lupus and juvenileidiopathic arthritis.AC-1: HomogeneousInternational Consensus on TRUDY Patterns(https://doi.org/10.1515/qynw-9572-8104)THIS TEST WAS PERFORMED AT:[address] [place] [phone] HUTTON MD TRUDY TITER 2 (REF LAB) [facility] TRUD[facility] 2 [facility] TRUDY TITER 3 [facility] TRUDY PATTERN 3 [facility] 07/08/2022 11:3 7 AM EDT 07/08/2022 11:37 AM EDT [facility] External Provider LAB BLO OD ORDERABLES Final Result Performing Organization Address [facility] Co de Phone Number [facility] [address] [place] [address] [phone] * Sed Rate by Modified Magdalene (07/08/2022 11:37 AM EDT) Erythrocyte Sedimentation Rate 6 0 - 20 MM/HR [facility] Comment:Patients with polycy themia and many hemoglobin abnormalitiesmay have depressed sed rates whereas patients with anemiamay have elevated sed rates. 07/08/2022 11:3 7 AM EDT 07/08/2022 11:37 AM EDT [facility] External Provider LAB BLO OD ORDERABLES Final Result Performing Organization Address [facility] de Phone Number [facility] [address] [place] [address] [phone] * APTT (07/08/2022 11:37 AM EDT) Partial Thromboplastin Time 30.5 26.0 - 36.4 SEC [facility] 07/08/2022 11:3 7 AM EDT 07/08/2022 11:37 AM EDT [facility] External Provider LAB BLO OD ORDERABLES Final Result Performing Organization Address [facility] de Phone Number [facility] [address] [place] [address] [phone] * Prothrombin Time-INR (07/08/2022 11:37 AM EDT) [facility] Prothrombin Time 11.8 10.0 - 13.1 SEC [facility] INTERNATIONAL NORM RATIO 1.0 0.9 - 1.1 [facility] Comment:INTERNATIONAL NORMAL IZED RATIO (INR) [...] 7 AM EDT 07/08/2022 11:37 AM EDT [facility] External Provider LAB BLO OD ORDERABLES Final Result Performing Organization Address City/State/[facility] Co de Phone Number [facility] [address] [place] [phone] * (ABNORMAL) CBC auto differential (07/08/2022 11:37 AM EDT) [facility] White Blood Count 9.3 4.8 - 10.8 X10*3/uL [facility] Red Blood Count 4.52 4.20 - 5.50 X10*6/uL [facility] Hemoglobin 14.3 12.0 - 16.0 g/dl [facility] Hematocrit 42.3 37.0 - 47.0 % [facility] Mean Corpuscular Volume 93.6 80.0 - 98.0 fL [facility] Mean Corpuscular Hemoglobin 31.6 27.0 - 33.0 pg [facility] Mean Corpuscular HGB Conc 33.8 31.0 - 35.0 g/dl [facility] Red Cell Distribution Width 12.4 11.0 - 16.0 % [facility] Platelet Count 260 160 - 400 X10*3/uL [facility] Mean Platelet Volume 11.0 9.4 - 12.3 fL [facility] Neutrophils Percent Auto 67.8 45 - 73 % [facility] Imm Gran Pct Auto 0.4 0.0 - 0.4 % [facility] Lymphocytes Percent Auto 24.9 20 - 40 % [facility] Monocytes Percent Auto 5.5 2 - 11 % [facility] Eosinophils Percent Auto 0.8 0 - 4 % [facility] Basophils Percent Auto 0.6 0 - 2 % [facility] NRBC Pct Auto 0.0 0.0 - 0.2 /100WBC [facility] Neutrophils Absolute Auto 6.3 2.0 - 8.3 x10*3/uL [facility] Imm Gran Abs Auto 0.04(H) 0.00 - 0.03 X10*3/uL [facility] Lymphocytes Absolute Auto 2.3 1.2 - 4.9 X10*3/uL [facility] Monocytes Absolute Auto 0.5 0.1 - 1.2 X10*3/uL [facility] Eosinophils Absolute Auto 0.1 0.0 - 0.4 X10*3/uL [facility] Basophils Absolute Auto 0.1 0.0 - 0.2 X10*3/uL [facility] NRBC Abs Auto 0.000 0.0 - 0.012 X10*3/uL [facility] 07/08/2022 11:3 7 AM EDT 07/08/2022 11:37 AM EDT us [facility] External Provider LAB BLO OD ORDERABLES Final Result [facility] [address] [place] [address] [phone] documented in this encounter Visit Diagnoses Diagnosis Right ovarian cyst- Primary Other and unspecified ovarian cyst documented in this encounter Additional Health Concerns Assessment Noted Time PHQ-9 Depression Total Score: 3 06/04/19 23 3:42 PM EDT documented as of this encounter Care Teams Bender Helper Relationship Specialty Start Date End Date Carlo Santana MD [address] [place] [address] PCP - General Internal Medicine 12/28/17 documented as of this encounter
--- OUTSIDE RECORDS SUMMARY | 2024-04-11 13:35 | XMS_ITS | Encounter Summary ---
Author Organization [employer] Address [address] [place] [address] [address] [address] Care Team Providers Care Mixed Livestock Farm Worker Name Role Phone Carlo Santana MD Primary Care Provider [phone] Encounter Details Date Type Department Care Team (Late st Contact Info) Description 11/03/2022 Orders Only [facility] CHC MED & PEDS [address] [place] [address] Carlo Santana MD [address] [place] [address] Obesity (BMI 30-39.9) (Primary Dx); Chronic left-sided [...] Description 05/31/2024 11:00 AM EDT Clinical Support [facility] MED & PEDS [address] [place] [address] 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, RN [address] [place] [address] documented as of this encounter Visit Diagnoses Diagnosis Obesity (BMI 30-39.9)- Primary Chronic left-sided low back pain with left-sided sciatica documented in this encounter Additional Health Concerns Assessment Noted Time PHQ-9 Depression Total Score: 3 06/04/19 23 3:42 PM EDT documented as of this encounter Care Teams Mixed Livestock Farm Worker Relationship Specialty Start Date End Date Carlo Santana MD [address] [place] [address] PCP - General Internal Medicine 12/28/17 documented as of this encounter
--- OUTSIDE RECORDS SUMMARY | 2024-04-11 13:35 | XMS_ITS | Encounter Summary ---
Author Organization [facility] Address [address] [place] [address] Care Team Providers Care Chrome Polisher Name Role Phone Chandni Boogie MD Primary Care Provider Unavailable Mary Lott MD Primary Care Provider Unavail able Maria Antonia Gerber MD [facility] Primary Care Provider Unavailabl e Reason for Visit * Reason Onset Date Comments refill request 01/02/2015 dr thomas Encounter Details Date Type Department Care Team Description 01/02/2015 Refill OBGYN - [address] [address] Karolyn Bustillo DO refill request (dr thomas) Social History Tobacco Use Types Packs/Day Years Used Date Smoking Tobacco: Never Smokeless Tobacco: Never Alcohol Use Standard Drinks/Week Comments No 0 (1 standard drink = 0.6 oz pur e alcohol) Sex Assigned at Date Recorded Not on file documented as of this encounter Miscellaneous Notes * Telephone Encounter - Dary Corral - 01/02/2015 8:47 AM EDT WHEN WAS THE PATIENTS LAST ANNUAL MISSILE PAD MECHANIC EXAM? 04/12/13 Does patient have an upcoming appointment? Yes 01/06/15 (THE MEDICATION REQUESTED IS ON THE MED LIST ABOVE) Did you check the Pharmacy information above?: YES Indicate how soon the patient needs the script: BY THE END OF THE DAY Patient would like script to be: E-PRESCRIBED/FAXED TO PHARMACY Is the doctor here today?: YES Can the message wait until the doctor returns?: NO Has the patient been told that the prescription will not be filled until the end of the day? NO Payor: [facility] MEDICAID / Plan: [place] MEDICAID HMO $0 [place] / Product Type: HMO [id number] documented in this encounter Plan of Treatment Not on file documented as of this encounter Visit Diagnoses Not on filedocumented in this encounter Care Teams Chrome Polisher Relationship Specialty Start Date End Date Chandni Boogie MD PCP - General Internal Medicine 06/09/1204/19 Mary Lott MD PCP - General Internal Medicine 04/20/16 07/15/16 Maria Antonia Gerber MD PCP - General Internal Medicine 07/16/16 01/22/18 [facility] Pcp PCP - General Internal Medicine 01/23/18 documented as of this encounter
--- OUTSIDE RECORDS SUMMARY | 2024-04-11 13:35 | XMS_ITS | Encounter Summary ---
Author Organization [employer] Address [address] [facility] 7 [place] [address] Care Team Providers Care Tobacco Feeder Catcher Name Role Phone Carlo Santana MD Primary Care Provider +1- [phone] Encounter Details Date Type Department Care Team (Late st Contact Info) Description 08/05/2023 Telephone [facility] MEDICINE [address] [place] [address] Carlo Santana MD [address] [facility] [address] [place], [place] [phone] Social History Tobacco Use Types Packs/Day Years [...] Upcoming Encounters Date Type Department Care Team ([facility] st Contact Info) Description 05/31/2024 11:00 AM EDT Clinical Support [facility] MED & PEDS [address] [place] [address] 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, RN [address] [place] [address] documented as of this encounter Visit Diagnoses Not on filedocumented in this encounter Additional Health Concerns Assessment Noted Time PHQ-9 Depression Total Score: 3 06/04/19 23 3:42 PM EDT documented as of this encounter Care Teams Tobacco Feeder Catcher Relationship Specialty Start Date End Date Carlo Santana MD [address] [place] [address] PCP - General Internal Medicine 12/28/17 documented as of this encounter
--- OUTSIDE RECORDS SUMMARY | 2024-04-11 13:35 | XMS_ITS | Encounter Summary ---
Author Organization [employer] Address [address] [place] [address] Care Team Providers Care Heel Room Supervisor Name Role Phone Carlo Santana MD Primary Care Provider +1- [phone] Reason for Referral * Consultation (Routine) - Closed Specialty Diagnoses / Procedures Referred By Contfina t Referred To Contact Pain Medicine Diagnoses Chronic left-sided low back pain with left-sided sciatica Lumbar radiculopathy Chronic right-sided low back pain with right-sided sciatica Carlo Santana MD [address] [place] [address] Phone: tel: fax: [facility] [address] [place] [address] Phone: tel: fax: Referral ID Status Reason Start Date Expiration Date V isits Requested Visits Authorized [id number] Closed Specialty Services Required 07/29/2023 07/28/2024 1 1 Encounter Details Date Type Department Care Team ([facility] st Contact Info) Description 07/29/2023 Orders Only [facility] CHC MED & PEDS [address] [place] [address] Carlo Santana MD [address] [place] [address] Chronic left-sided low back pain with left-sided [...] Description 05/31/2024 11:00 AM EDT Clinical Support [facility] CHC MED & PEDS [address] [place] [address] 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, HUGO [address] [place] [address] Scheduled Referrals Name Type Priority Associated Diagnoses [...] documented as of this encounter Care Teams Heel Room Supervisor Relationship Specialty Start Date End Date Carlo Santana MD [address] [place] [address] PCP - General Internal Medicine 12/28/17 documented as of this encounter
--- OUTSIDE RECORDS SUMMARY | 2024-04-11 13:35 | XMS_ITS | Encounter Summary ---
Author Organization [facility] Address [address] [facility] [place] [address] Care Team Providers Care Title Manager Name Role Phone Chandni Boogie MD Primary Care Provider Unavailable Mary Lott MD Primary Care Provider Unavail able Maria Antonia Gerber MD Primary Care Provider Unavaila [facility], Pcp Primary Care Provider Unavailabl e Reason for Visit * Reason Onset Date Comments refill request 10/11/2014 Encounter Details Date Type Department Care Team Description 10/11/2014 Refill Medicine/Pediatrics - [address] [phone] Chandni Boogie MD refill request Social History Tobacco Use Types Packs/Day Years [...] on filedocumented in this encounter Care Teams Title Manager Relationship Specialty Start Date End Date Chandni Boogie MD PCP - General Internal Medicine 06/09/1204/19 Mary Lott MD PCP - General Internal Medicine 04/20/16 07/15/16 Maria Antonia Gerber MD PCP - General Internal Medicine 07/16/16 01/22/18 [facility], Pcp PCP - General Internal Medicine 01/23/18 documented as of this encounter
--- OUTSIDE RECORDS SUMMARY | 2024-04-11 13:35 | XMS_ITS | Encounter Summary ---
Author Organization [employer] Address [address] [place] [address] 7 [place] [address] Care Team Providers Care Lining Repairer Name Role Phone Carlo Santana MD Primary Care Provider +1- [phone] Reason for Visit * Reason Onset Date Comments Results 02/14/2023 Encounter Details Date Type Department Care Team ([facility] st Contact Info) Description 02/14/2023 Telephone [facility] CHC MED & PEDS [address] [place] [address] Carlo Santana MD [address] [place] [address] Results Social History Tobacco Use Types Packs/Day [...] and agrees withplan. * Telephone Encounter - Ashely Gavin - 02/14/2023 9:01 AM EST Tc from pt requesting results on xray to hip on 02/09. Please contact pt at [phone] documented in this encounter Plan of Treatment Upcoming Encounters Date Type Department Care Team (Late st Contact Info) Description 05/31/2024 11:00 AM EDT Clinical Support [facility] MED & PEDS [address] [place] [address] 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, HUGO [address] [place] [address] documented as of this encounter Visit Diagnoses Not on filedocumented in this encounter Additional Health Concerns Assessment Noted Time PHQ-9 Depression Total Score: 3 06/04/19 23 3:42 PM EDT documented as of this encounter Care Teams Lining Repairer Relationship Specialty Start Date End Date Carlo Santana MD [address] [place] [address] PCP - General Internal Medicine 12/28/17 documented as of this encounter
--- OUTSIDE RECORDS SUMMARY | 2024-04-11 13:35 | XMS_ITS | Encounter Summary ---
Author Organization [employer] Address [address] [facility] 7 [place] [address] Care Team Providers Care Public Address Announcer Name Role Phone Carlo Santana MD Primary Care Provider +1- [phone] Reason for Visit * Reason Onset Date Comments Med Refill 09/22/2023 Encounter Details Date Type Department Care Team (Late st Contact Info) Description 09/22/2023 Telephone [facility] MEDICINE [address] [place] [address] Carlo Santana MD [address] [place], [place] [phone] Med Refill Social History Tobacco Use Types [...] caller accepted this outcome Please contact at [phone] documented in this encounter Plan of Treatment Upcoming Encounters Date Type Department Care Team (Late st Contact Info) Description 05/31/2024 11:00 AM EDT Clinical Support [facility] MED & PEDS [address] [place] [address] 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, HUGO [address] [place], [place] [phone] documented as of this encounter Visit Diagnoses Not on filedocumented in this encounter Additional Health Concerns Assessment Noted Time PHQ-9 Depression Total Score: 3 06/04/19 23 3:42 PM EDT documented as of this encounter Care Teams Public Address Announcer Relationship Specialty Start Date End Date Carlo Santana MD [address] [place] [address] PCP - General Internal Medicine 12/28/17 documented as of this encounter
--- OUTSIDE RECORDS SUMMARY | 2024-04-11 13:35 | XMS_ITS | Encounter Summary ---
Author Organization [employer] Address [address] [facility] 7 [place] [address] Care Team Providers Care Operations Support Specialist Name Role Phone Carlo Santana MD Primary Care Provider +1- [phone] Reason for Visit * Reason Onset Date Comments Med Refill 11/25/2022 Encounter Details Date Type Department Care Team (Late st Contact Info) Description 11/25/2022 Telephone [facility] MEDICINE [address] [place] [address] Carlo Santana MD [address] [place], [place] [phone] Med Refill Social History Tobacco Use Types [...] Description 05/31/2024 11:00 AM EDT Clinical Support [facility] MED & PEDS [address] [place] [address] 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 RN [address] [place] [address] documented as of this encounter Visit Diagnoses Not on filedocumented in this encounter Additional Health Concerns Assessment Noted Time PHQ-9 Depression Total Score: 3 06/04/19 23 3:42 PM EDT documented as of this encounter Care Teams Operations Support Specialist Relationship Specialty Start Date End Date Carlo Santana MD [address] [place] [address] PCP - General Internal Medicine 12/28/17 documented as of this encounter
--- OUTSIDE RECORDS SUMMARY | 2024-04-11 13:35 | XMS_ITS | Encounter Summary ---
Author Organization [employer] [facility] Address [address] [place] [address] 7 [place] [address] Care Team Providers Care Cork Sorter Name Role Phone Carlo Santana MD Primary Care Provider +1- [phone] Encounter Details Date Type Department Care Team (Latest Contact Info) Description 04/18/2018 Abstract [facility] CONVERSIONS Dental, Provider, DDS Social [...] 11:00 AM EDT Clinical Support [facility] MED & PEDS [address] [place] [address] 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, HUGO [address] [place] [address] documented as of this encounter Visit Diagnoses Not on filedocumented in this encounter Care Teams Cork Sorter Relationship Specialty Start Date End Date Carlo Santana MD [address] [place] [address] PCP - General Internal Medicine 12/28/17 documented as of this encounter
--- OUTSIDE RECORDS SUMMARY | 2024-04-11 13:35 | XMS_ITS | Encounter Summary ---
Author Organization [facility] Address [address] [place] [address] Care Team Providers Care Sql Developer Dba Name Role Phone Chandni Boogie MD Primary Care Provider Unavailable Mary Lott MD Primary Care Provider Unavail able Maria Antonia Gerber MD [facility] Provider Unavailabl e Reason for Visit * Reason Comments E-prescribe Rx Request Encounter Details Date Type Department Care Team Description 07/29/2014 Refill Dermatology [address] [place] [address] Alexy Monae MD E-prescribe Rx Request Social History Tobacco Use Types Packs/Day Years Used Date Smoking Tobacco: Never Smokeless Tobacco: Never Alcohol Use Standard Drinks/Week Comments No 0 (1 standard drink = 0.6 oz pur e alcohol) Sex Assigned at Date Recorded Not on file documented as of this encounter Miscellaneous Notes * Telephone Encounter - Maddie Gupta - 07/30/2014 10:20 AM EDT Left message for pt to return my call * Telephone Encounter - Alexy Monae MD - 07/30/2014 7:27 AM EDT Please let the patient know I did refill one month of minocycline. However, if she is still needing this medication, she would also need to schedule a follow up as I have not seen her in over one year. * Telephone Encounter - April Doshiating - 07/30/2014 7:18 AM EDT Patient would like script to be: E-PRESCRIBED/FAXED TO PHARMACY (THE MEDICATION REQUESTED IS ON THE MED LIST ABOVE) All of the medications requested were on the CURRENT MEDS list Did you check the Pharmacy information above?: YES Patient wants: 30 -day supply Is this a mail order prescription request ? NO Patients current insurance carrier is: Payor: [employer] FFS / Plan: FFS HMO $0 On[place]ax [id number] / Product Type: MEDICAID RISK documented in this encounter Plan of Treatment Not on file documented as of this encounter Visit Diagnoses Not on filedocumented in this encounter Care Teams Sql Developer Dba Relationship Specialty Start Date End Date Chandni Boogie MD PCP - General Internal Medicine 06/09/1204/19 Mary Lott MD PCP - General Internal Medicine 04/20/16 07/15/16 Maria Antonia Gerber MD PCP - General Internal Medicine 07/16/16 01/22/18 [facility], Pcp PCP - General Internal Medicine 01/23/18 documented as of this encounter
--- OUTSIDE RECORDS SUMMARY | 2024-04-11 13:35 | XMS_ITS | Encounter Summary ---
Author Organization [employer] Address [address] [facility] 7 [place] [address] Care Team Providers Care Screw Machine Tool Setter Name Role Phone Carlo Santana MD Primary Care Provider +1- [phone] Reason for Visit * Reason Onset Date Comments FYI 08/10/2023 Encounter Details Date Type Department Care Team (Late st Contact Info) Description 08/10/[address] [facility] MEDICINE [address] [place] [address] Carlo Santana MD [address] [facility] [address] [place], [place] [phone] FYI Social History Tobacco Use Types Packs/Day [...] [facility] [address] [place] [address] 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, HUGO [address] [place] [address] documented as of this encounter Visit Diagnoses Not on filedocumented in this encounter Additional Health Concerns Assessment Noted Time PHQ-9 Depression Total Score: 3 06/04/19 23 3:42 PM EDT documented as of this encounter Care Teams Screw Machine Tool Setter Relationship Specialty Start Date End Date Carlo Santana MD [address] [place] [address] PCP - General Internal Medicine 12/28/17 documented as of this encounter
--- OUTSIDE RECORDS SUMMARY | 2024-04-11 13:35 | XMS_ITS | Encounter Summary ---
Author Organization [employer] Address [address] [facility] 7 [place] [address] Care Team Providers Care Maintainer Sewer And Waterworks Name Role Phone Carlo Santana MD Primary Care Provider +1- [phone] Reason for Visit * Reason Onset Date Comments r/s SANTHOSH ARIAS 08/17/2022 Encounter Details Date Type Department Care Team (Late st Contact Info) Description 08/17/2022 Telephone [facility] MEDICINE [address] [place] [address] Carlo Santana MD [address] [place], [place] [phone] r/s SANTHOSH RN Social History Tobacco Use [...] EDT Tc from pt requesting to r/s BILLING REP RN appt scheduled for 08/17/22 @ 10am Please contact at [phone] documented in this encounter Plan of Treatment Upcoming Encounters Date Type Department Care Team (Late st Contact Info) Description 05/31/2024 11:00 AM EDT Clinical Support [facility] CH[facility] MED & PEDS [address] [place] [address] 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, RN [address] [place] [address] documented as of this encounter Visit Diagnoses Not on filedocumented in this encounter Additional Health Concerns Assessment Noted Time PHQ-9 Depression Total Score: 3 06/04/19 23 3:42 PM EDT documented as of this encounter Care Teams Maintainer [employer]er [employer] Waterworks Relationship Specialty Start Date End Date Carlo Santana MD [address] [place] [address] PCP - General Internal Medicine 12/28/17 documented as of this encounter
--- OUTSIDE RECORDS SUMMARY | 2024-04-11 13:35 | XMS_ITS | Encounter Summary ---
Author Organization [employer] [facility] Address [address] [place] [address] 7 [place] [address] Care Team Providers Care Eeo Officer Name Role Phone Carlo Santana MD Primary Care Provider +1- [phone] Encounter Details Date Type Department Care Team (Latest Contact Info) Description 10/14/2021 Abstract [facility] CONVERSIONS Dental, Provider, DDS Social History Tobacco [...] 11:00 AM EDT Clinical Support [facility] MED & PEDS [address] [place] [address] 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, HUGO [address] [place] [address] documented as of this encounter Visit Diagnoses Not on filedocumented in this encounter Care Teams Eeo Officer Relationship Specialty Start Date End Date Carlo Santana MD [address] [place] [address] PCP - General Internal Medicine 12/28/17 documented as of this encounter
--- OUTSIDE RECORDS SUMMARY | 2024-04-11 13:36 | XMS_ITS | Clinical Summary ---
Author Organization [employer] Address [address] [place] [address] 7[address] [place] [address] Care Team Providers Care Energy Management Specialist Name Role Phone Carlo Santana MD Primary Care Provider Allergies Active Allergy Reactions Criticality Noted Date Comments Cyclobenzaprine 07/27/2022 Other reaction(s): ? reaction Medications * This document contains information received from the source organization and may not represent a complete record from that organization. naloxone (Narcan) 4 mg/0.1 mL nasal spray Administer 0.1 mL into affected nostril(s). [place] 0.1 milliliter by intranasal route in 1 [...] DAY FOR 30 DAYS 10/17/19 24 Active D3-1000 25 MCG (1000 UT) [...] MILD PAIN 240 g 03/22/19 25 Active acetaminophen (Tylenol) 325 MG tabletIndicati ons:Chronic left-sided low back pain with left-sided sciatica Take 2 tablets (650 mg) by mouth every 6 (six) hours if needed for mild pain. 84 tablet 03/23/19 25 Active Anti-Diarrheal 2 MG tabletIndicati ons:Diarrhea, unspecified type TAKE 1 TO 2 TABLETS (2 TO 4 MG TOTAL) BY MOUTH IF NEEDED IN THE MORNING, AT 12PM, IN THE EVENING, AND AT BEDTIME FOR DIARRHEA FOR UP TO 10 DAYS. 30 tablet 04/09/19 25 Active DULoxetine (Cymbalta) [address] capsule TAKE 1 CAPSULE BY MOUTH TWICE A DAY. DO NOT CRUSH OR CHEW. 60 capsule 2 04/09/19 25 Active hydrOXYzine pamoate (Vistaril) 50 MG capsuleIndicat ions:Bipolar affective disorder, remission status unspecified (CMS/HCC) TAKE 1 CAPSULE BY MOUTH EVERY 8 HOURS IF NEEDED FOR ITCHING 90 capsule 3 04/09/19 25 Active ondansetron (Zofran) 4 MG tablet TAKE 2 TABLETS BY MOUTH EVERY 8 HOURS NEEDED FOR NAUSEA AND VOMITING 30 tablet 3 04/09/19 25 Active predniSONE (Deltasone) 20 MG tabletIndicati ons:Diarrhea, unspecified type TAKE 2 TABLETS (40 MG) BY MOUTH ONCE PER DAY FOR 5 DAYS. 10 tablet 04/09/19 25 025 Active econazole nitrate 1 % cream APPLY TO AFFECTED AREA TWICE A DAY FOR 21 DAYS 30 g 11 04/09/19 25 Active clonazePAM (KlonoPIN) 1 MG tabletIndicati ons:[place] (generalized anxiety disorder) TAKE 1 TABLET (1 MG) BY MOUTH EVERY DAY NEEDED FOR ANXIETY 30 tablet 04/09/19 25 Active amitriptyline (Elavil) 10 MG tabletIndicati ons:Diarrhea, unspecified type Take 1 tablet (10 mg) by mouth at bedtime. 30 tablet 04/09/19 25 025 Active clonazePAM (KlonoPIN) 1 MG tabletIndicati ons:[place] (generalized anxiety disorder) Take 1 tablet (1 mg) by mouth if needed each day for anxiety. 30 tablet 04/09/19 25 Active oxyCODONE (Roxicodone) 10 MG immediate release tabletIndicati ons:Chronic left-sided low back pain with left-sided sciatica Take 1 tablet (10 mg) by mouth every 8 (eight) hours if needed for severe pain for up to 28 days. Do not start before April 19, 2024. 84 tablet 04/19/19 25 025 Active loperamide (Imodium A-D) 2 MG tabletIndicati ons:Diarrhea, unspecified type Take 1-2 tablets (2-4 mg) by mouth if needed in the morning, at noon, in the evening, and at bedtime for diarrhea for up to 10 days. 30 tablet 12/20/19 025 Discontinued DULoxetine (Cymbalta) [address] capsule TAKE 1 CAPSULE BY MOUTH TWICE A DAY. DO NOT CRUSH OR CHEW. 60 capsule 2 12/20/19 025 Discontinued hydrOXYzine pamoate (Vistaril) 50 MG capsuleIndicat ions:Bipolar affective disorder, remission status unspecified ([facility]) TAKE 1 CAPSULE BY MOUTH EVERY 8 HOURS IF NEEDED FOR ITCHING 90 capsule 3 12/28/19 025 Discontinued predniSONE (Deltasone) 20 MG tabletIndicati ons:Diarrhea, unspecified type Take 2 tablets (40 mg) by mouth Once per day for 5 days. 10 tablet 01/26/20 025 Discontinued lidocaine (Xylocaine) 5 % ointmentIndica tions:Rib pain,Chronic left-sided low back pain with left-sided sciatica,Neck pain APPLY 5 GRAMS TO AFFECTED AREA 4 TIMES A DAY NEEDED FOR MILD PAIN 240 g 01/26/20 025 Discontinued(R eorder (will not trigger notification to Pharmacy)) Nutritional Supplements (Ensure High Protein) liquidIndicati ons:Hypoprotei nemia ([facility]) DRINK 1 CAN TWICE DAILY 237 mL 01/31/20 025 Discontinued ondansetron (Zofran) 4 MG tablet TAKE 2 TABLETS BY MOUTH EVERY 8 HOURS NEEDED FOR NAUSEA OR VOMITING 30 tablet 3 02/07/20 025 Discontinued oxyCODONE-acet aminophen (Percocet) 7.5-325 MG tabletIndicati ons:Chronic [...] eorder (will not trigger notification to Pharmacy)) oxyCODONE (Roxicodone) 10 MG immediate release tabletIndicati ons:Chronic left-sided low back pain with left-sided sciatica Take 1 tablet (10 mg) by mouth every 8 (eight) hours if needed for severe pain for up to 28 days. 84 tablet 03/23/19 25 025 Discontinued(R eorder (will not trigger notification [...] the last 15 years. Now engaged with [facility] for OP, and waiting to be connected with psych provider. Severe anxiety is interfering with daily activities and affecting her interpersonal relationships. PLAN: (check all that apply) Continue with current services (defined as services in the past 12 months) Behavioral Health Integration Plan Patient Self Plan Patient to utilize skills provided in intervention , Patient to reach out to [facility] team as needed, Patient to engage in OP therapy , and Patient to reach out to [facility] as needed. Pt reports being connected with [facility] for individual therapy. She completed third OP session and was added to wait list for psych provider within [facility]. Mixed stress and urge urinary incontinence 11/02 [...] the last 15 years. Now engaged with [facility] for OP, and waiting to be connected with psych provider. Severe anxiety is interfering with daily activities and affecting her interpersonal relationships. PLAN: (check all that apply) Continue with current services (defined as services in the past 12 months) Behavioral Health Integration Plan Patient Self Plan Patient to utilize skills provided in intervention , [facility], Patient to engage in OP therapy , and Patient to reach out to [facility] as needed. Pt reports being connected with [facility] for individual therapy. She completed third OP session and was added to wait list for psych provider within [facility]. Obesity with body mass index 30 or [...] Description 04/09/2024 11:00 AM EST Office Visit [facility] [address] [place] [address] Carlo Santana MD Diarrhea, unspecified type (Primary Dx); Muscle spasm; Lumbar radiculopathy; [place] (generalized anxiety disorder) 04/09/2024 Refill [facility] [address] [place] [address] Carlo Santana MD Chronic left-sided low back pain with left-sided sciatica 04/09/2024 Refill [facility] [address] [place] [phone] Carlo Santana MD Diarrhea, unspecified type; Bipolar affective disorder, remission status unspecified ([facility]); Diarrhea, unspecified type; [place] (generalized anxiety disorder) 04/03/2024 Telephone [facility] [address] [place] [phone] Carlo Santana MD 04/03/2024 Telephone [facility] [address] [place] [phone] Carlo Santana MD Nurse Triage 03/23/2024 Telephone [facility] [address] [place] [address] Carlo Santana MD Prior Authorization 03/23/[address] [address] Carlo Santana MD Medication Question 03/22/2024 2:30 PM EST Office Visit [facility] [address] [place] [address] Carlo Santana MD Chronic left shoulder pain (Primary Dx); Muscle spasm; Rib pain; Chronic left-sided low back pain with left-sided sciatica; Neck pain; Lumbar radiculopathy 03/22/2024 Travel 03/21/2024 Refill [facility] [address] [place] [phone] Carlo Santana MD Chronic left-sided low back pain with left-sided sciatica 03/21/2024 Telephone [facility] [address] [place] [phone] Carlo Santana MD Nurse Triage 03/21/2024 Refill [facility] [address] [place] [address] Carlo Santana MD Chronic left-sided low back pain with left-sided sciatica (Primary Dx); Transaminitis 03/15/2024 Refill [facility] [address] [place] [address] Carlo Santana MD Hypoproteinemia (CMS/HCC) 03/15/2024 Telephone [facility] [address] [place] [phone] Carlo Santana MD Results 03/12/2024 9:30 AM EST Telemedicine [facility] [address] [place] [address] 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 RN Chronic left-sided low back pain with left-sided sciatica 03/12/2024 Refill [facility] [address] [place] [address] Carlo Santana MD [place] (generalized anxiety disorder) 03/12/2024 Travel 03/08/2024 Orders Only GENERIC EXTERNAL DATA DEPARTMENT Provider, Generic External Data 03/05/2024 Orders Only [facility] [address] [place] [address] Carlo Santana MD 02/29/2024 Orders Only GENERIC EXTERNAL DATA DEPARTMENT Provider, Generic External Data 02/28/2024 Telephone [facility] [address] [place] [phone] Carlo Santana MD Call Back Request 02/28/[address] [address] Carlo Santana MD Med Refill; Medication Question 02/28/2024 Refill [facility] [address] [place] [address] Carlo Santana MD Muscle spasm 02/27/2024 Telephone [facility] [address] [place] [phone] Carlo Santana MD callback requested 02/23/2024 Orders Only [facility] [address] [place] [phone] Alpa Avila MD Borderline personality disorder (CMS/HCC) (Primary Dx); Posttraumatic stress disorder; [place] (generalized anxiety disorder); Depressive disorder 02/22/2024 Telephone [facility] [address] [place] [phone] Carlo Santana MD Referral 02/20/2024 Refill [facility] [address] [place] [phone] Carlo Santana MD Chronic left-sided low back pain with left-sided sciatica 02/20/[address] [address] Carlo Santana MD Med Refill 02/20/[address] [address] Carlo Santana MD Med Refill 02/20/[address] [address] Carlo Santana MD Chronic left-sided low back pain with left-sided sciatica 02/08/2024 Orders Only [facility] [address] [place] [address] Carlo Santana MD [place] (generalized anxiety disorder) (Primary Dx) 02/07/2024 Telephone [facility] [address] [place] [address] Jaquelin Mason, holistic specialist Question 02/07/[address] [address] Carlo Santana MD Prior Authorization 02/07/2024 Refill [facility] [address] [place] [phone] Carlo Santana MD 02/07/2024 Telephone [facility] [address] [place] [phone] Carlo Santana MD Med Refill 01/31/2024 Refill [facility] [address] [place] [address] Carlo Santana MD Hypoproteinemia (CMS/HCC) 01/31/2024 Telephone [facility] [address] [place] [address] Carlo Santana MD Medication Question 01/31/2024 Telephone [facility] [address], [place] [phone] Carlo Santana MD PA 01/30/[address] [address] Carlo Santana MD Results 01/26/2024 10:45 AM EST Office Visit [facility] [address] [place] [address] Carlo Santana MD Annual physical exam (Primary Dx); Diarrhea, unspecified type; Encounter for screening mammogram for malignant neoplasm of breast; Rib pain; Need for vaccination; Chronic left-sided low back pain with left-sided sciatica; Chronic left-sided low back pain with left-sided sciatica; Neck pain 01/26/2024 Refill [facility] [address] [place] [address] Carlo Santana MD Muscle spasm 01/26/2024 Travel 01/25/2024 Refill [facility] [address] [place] [phone] Carlo Santana MD Chronic left-sided low back pain with left-sided sciatica 01/25/[address] [address] Carlo Santana MD Med Refill 01/25/2024 Refill [facility] [address] [place], [place] [phone] Carlo Santana MD Chronic left-sided low back pain with left-sided sciatica; Neck pain; Chronic left-sided low back pain with left-sided sciatica 01/19/2024 Patient Outreach [facility] [address] [place] [address] Carlo Santana MD Pre-visit Planning (SDOH negative, Tobacco screening negative. ) 01/18/2024 Telephone [facility] [address], [place] [phone] Carlo Santana MD Nurse Triage from Last [...] [facility] [address] [place] [address] 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, HUGO [address] [place] [address] Health Maintenance Due Date Last Done Comments [...] Screening 01/25/2025 01/26/2024, 01/26/20 24 Tobacco Screening 04/09/2025 04/09/2024 Cervical Cancer Screening 02/11/2026 HPV/Cotest 02/11/2026 02/11/2021 [...] 5 Years) and At-Risk Patients (6 to 49) Years) Aged Out No longer eligible based [...] EST Narrative 04/05/2024 11:37 AM EST ? [facility] ?[address] ?[place] [address] ? CT Scan Report ? Signed ? Patient: Peri Sandy ?MR#: [id number] ?? 338 ? : 1980 ?Acct:[id number] ? Age/Sex: 43 / F ?ADM Date: 04/05/24 ? Loc: HO.CT ? Attending Dr: Cristel GONZALEZ-BC ? Ordering Physician: Cristel RendonP-BC ?? Date of Service: 04/05/24 ?? Procedure(s): CT enterography ?? Accession Number(s): [id number] ? cc: Carlo Santana MD; Cristel RendonP-BC ? Report Number: ?? [id number]: Total DLP = ??295.00 mGy-cm ?? EXAMINATION: [...] DD/ 1051 ? TD/TT: 04/05/24 1108 ? Divisional Storekeeper: ? Procedure Note Wilfredo, Image - 04/05/[address] [place] [address] [address] Scan Report Signed Patient: Peri Sandy MMR#: [id number] 338 : 1980Acct:[id number] Age/Sex: 43 / FADM Date: 04/05/24 Loc: HO.CT Attending Dr: Cristel ARIAS Ordering Physician: Cristel Rednon Date of Service: 04/05/24 Procedure(s): CT enterography Accession Number(s): [id number] cc: Carlo Santana MD; Cristel Rendon Report Number: [id number]: Total DLP = 295.00 mGy-cm EXAMINATION: CT [...] 04/05/24 1134 DD/ 1051 TD/TT: 04/05/24 1108 Divisional Storekeeper: [facility] External Provider IMG CT PROCEDURES Final Result * (ABNORMAL) Calprotectin, Stool (03/08/2024 7:47 AM EST) Only the most recent of2 resultswithin the time period is included. Calprotectin,Fecal 368(A) mcg/g [facility] Comment:Reference Range: <50 Normal 50-120 Borderline >120 ElevatedCalprotectin in Crohn's disease and ulcerative colitis canbe five to several thousand times above the referencepopulation (50 mcg/g or less). Levels are usually 50 mcg/gor less in healthy patients and with irritable bowelsyndrome. Repeat testing in 4-6 weeks is suggested forborderline values.THIS TEST WAS PERFORMED AT:[id number] [place] [address]ENXFECHERYL MOLINA MD,PHD,BATSHEVA 03/08/2024 7:47 AM EST 03/08/2024 9:18 AM EST Generic External Data Provider LAB BODY FLUIDS A ND STOOLS ORDERABLES Final Result Performing Organization Address [facility] Co de Phone Number [facility] [address] [place] [address] [phone] * Pancreatic elastase, fecal (03/08/2024 7:47 AM EST) Pancreatic Elastase 1 501 >200 mcg/g [facility] Comment:E-1 mcg/g feces Int erpretation <100 Severe exocrine pancreatic insufficiency 100-200 Mild to moderate exocrine pancreatic insufficiency >200 NormalTHIS TEST WAS PERFORMED AT:[employer] [id number] [address]XHSSUCHERYL MOLINA MD,PHD,BATSHEVA 03/08/2024 7:47 AM EST 03/08/2024 9:18 AM EST Generic External Data Provider LAB BODY FLUIDS A ND STOOLS ORDERABLES Final Result Performing Organization Address City/[facility]/ZIP Co de Phone Number [facility] [address] [place] [phone] * (ABNORMAL) VITAMIN D 25-OH (D2 AND D3) (02/29/2024 7:44 AM EST) Vitamin D, 25-OH, D2 <4 ng/mL [facility] Comment:This test was develo ped and its analytical performancecharacteristics have been determined by [employer] [place], [place]. It hasnot been cleared or approved by the U.S. Food and DrugAdministration. This assay has been validated pursuantto the CLIA regulations and is used for clinicalpurposes.THIS TEST WAS PERFORMED AT:[employer] [id number] [place] [address]GBWXEILOK KOENIG MD,PHD Vitamin D, 25-OH, D3 24 ng/mL [facility] Comment:This test was develo ped and its analytical performancecharacteristics have been determined by [employer] [place], [place]. It hasnot been cleared or approved by the U.S. Food and DrugAdministration. This assay has been validated pursuantto the CLIA regulations and is used for clinicalpurposes. Vitamin D, 25-OH, Total 24(A) 30 - 100 ng/mL [facility] Comment:Vitamin D, 25-Hydrox y reports concentrations [...] = 30 ng/mL.For additional information, please refer tohttp://education.Cloudadmin/faq/AKX191(This link is being provided for informational/educational purposes only.) 02/29/2024 7:44 AM EST 02/29/2024 7:44 AM EST Generic External Data Provider LAB BLOOD ORDERAB LES Final Result Performing Organization Address [facility] Phone Number [facility] [address] [place] [phone] * Vitamin B12 (Cobalamin) and Folate Panel, Serum (02/29/2024 7:44 AM EST) Vitamin B12 643 200 - 900 pg/mL [facility] Comment:NORMAL 200-900 PG/ML INDETERMINATE 160-199 PG/ML DEFICIENT < 160 PG/ML Folate 6.6 > or = 4.0 ng/mL [facility] Comment:Reference Values:> o r = 4.0 ng/mL< 4.0 ng/mL suggests folate deficiency Methotrexate, aminopterin and folinic acid(leucovorin) are chemotherapeutic agents whose molecularstructures are similar to folate; therefore, the Architectfolate assay cannot be used for patients using these drugs. 02/29/2024 7:44 AM EST 02/29/2024 7:44 AM EST Generic External Data Provider LAB BLOOD ORDERAB LES Final Result Performing Organization Address [facility] Phone Number [facility] [address] [place] [phone] * XR Ribs 2 Views Left (02/02/2024 9:18 AM EST) Anatomical Region Laterality Modality Rib, Abdomen Left Radiographic Yi ging 02/02/2024 9:18 AM EST Narrative 02/22/2024 5:15 PM EST ? [facility] ?[address] ?[place] [address] ?XRay Report ? Signed ? Patient: Du,Peri M ?MR#: [id number] ?? 338 ? : 1980 ?Acct:[id number] ? Age/Sex: 43 / F ?ADM Date: 11/21/24 ? Loc: HO.XRAY ? Attending Dr: Carlo Santana MD ? Ordering Physician: Carlo Santana MD ?? Date of Service: 02/02/24 ?? Procedure(s): XR ribs LT 2V ?? Accession Number(s): [id number] ? cc: Carlo Santana MD ? EXAMINATION: [...] ??Alexy Lai MD ??02/22/2024 05:12 PM EST ? Dictated By: ?Alexy Lai MD ? Signed By: ?<Electronically signed by Alexy Lai MD in OV> ? 02/22/24 1712 ? DD/ 0918 ? TD/TT: 02/02/24 0936 ? Divisional Storekeeper: SS ? Procedure Note Geovanny Villalobos - 02/22/2024 [place] [address] XRay Report Signed Patient: Peri Sandy [facility]#: [id number] 338 : 1980Acct:[id number] Age/Sex: 43 / FADM Date: 02/02/24 Loc: [facility] Attending Dr: Carlo Santana MD Ordering Physician: Carlo Santana MD Date of Service: 02/02/24 Procedure(s): XR ribs LT 2V Accession Number(s): [id number] cc: Carlo Santana MD EXAMINATION: XR RIBS, [...] Lai MD in OV> 02/22/24 1712 DD/ 7 TD/TT: 02/02/24935 Divisional Storekeeper: SS us Carlo Santana MD IMG XR PROCEDURES Final Res ult * Hepatitis C Antibody with Reflex to HCV, RNA, Quantitative, Real-Time PCR (01/26/2024 11:58 AM EST) Hepatitis C Antibody Nonreactive Nonreactive [facility] Comment:Antibodies to HCV no t detected; does not exclude early acuteHCV infection. Blood Venous blood specimen / Unknown 01/26/2024 11:58 AM EST 01/26/2024 2:10 PM EST us Carlo Santana MD LAB BLOOD ORDERABLES Final Result Performing Organization Address [facility] Co de Phone Number [facility] [address] [place] [phone] * Hepatitis B surface antigen, EIA (01/26/2024 11:58 AM EST) Hepatitis B Surface Ag Negative Negative [facility] Blood Venous blood specimen / Unknown 01/26/2024 11:58 AM EST 01/26/2024 2:10 PM EST us Carlo Santana MD LAB BLOOD ORDERABLES Final Result Performing Organization Address [facility] Co de Phone Number [facility] [address] [place] [phone] * HIV-1/2 Antigen and Antibodies, Fourth Generation, with Reflexes (01/26/2024 11:58 AM EST) Pathologist [facility] HIV AB/AG Nonreactive Nonreactive [facility] Comment:HIV-1 p24 Ag and/or HIV-1/HIV-2 Ab not detected.A test result that is nonreactive does not exclude thepossibility of exposure to or infection with HIV-1 and/orHIV-2. Nonreactive results in this assay for individualswith prior exposure to HIV-1 and/or HIV-2 may be due toantigen and antibody levels that are below the limit ofdetection of this assay.The [employer] HIV Ag/Ab Combo assay result andsupplemental assay results should be interpreted inconjunction with the patient's clinical presentation,history and other laboratory results. If the results areinconsistent with clinical evidence, additional testing issuggested to confirm the result. Blood Venous blood specimen / Unknown 01/26/2024 11:58 AM EST 01/26/2024 2:10 PM EST Carlo Santana MD LAB BLOOD ORDERABLES Final Result Performing Organization Address City/[facility]/ZIP Co de Phone Number [facility] [address] [place] [phone] * Hepatitis B Surface Antibody, Qualitative (01/26/2024 11:58 AM EST) Pathologist [facility] ~Hepatitis B Surface Antibody REACTIVE Nonreactive [facility] Comment:REACTIVE: > 11.99 mI U/mL Blood Venous blood specimen / Unknown 01/26/2024 11:58 AM EST 01/26/2024 2:10 PM EST Carlo Santana MD LAB BLOOD ORDERABLES Final Result [facility] [address] [place] [phone] * Lipid Panel, Standard (08/13/2023 7:23 AM EDT) Triglycerides 111 <150 mg/dL [facility] Comment:Desirable Triglyceri de: less than 150 mg/dLBorderline High Triglyceride 150-199 mg/dLHigh Triglyceride: 200-499 mg/dLVery High Triglyceride: greater than or equal to 5OO mg/dL Cholesterol 173 <200 mg/dL [facility] Comment:Desirable Cholestero l: less than 200 mg/dLBorderline High Cholesterol: 200-239 mg/dLHigh Cholesterol: greater than 239 mg/dL LDL Cholesterol Calculated 82 <100 mg/dL [facility] Comment:Desirable LDL: less than 100 mg/dLNear Optimal/Above Optimal LDL: 110- 129 mg/dLBorderline High LDL: 130-159 mg/dLHigh LDL: 160-189 mg/dLVery High LDL: greater than or equal to 190 mg/dL HDL Cholesterol 69 >40 mg/dL [facility] Comment:Desirable HDL: great er than 40 mg/dL Note: This HDL assay may give artificially low results in patients with liver disease. 08/13/2023 7:23 AM EDT 08/13/2023 7:23 AM EDT Generic External Data Provider LAB BLOOD ORDERAB LES Final Result [facility] [address] [place] [phone] * Pap Smear (02/11/2021) Pap Negative for intraephithelial lesion or malignancy Negative for intraephithelial lesion or malignancy, Other HPV Undetected Undetected, Indeterminate, Quantitative, Not Detected Historical Provider HEALTH MAINTENANCE Final Result from Last 3 Months or Most Recently Relevant to Health Maintenance [place] [facility] STAND ADULT [address] JACQUELINE LEATHA Care Teams Energy Management Specialist Relationship Specialty Start Date End Date Carlo Santana MD [address] [place] [address] LEATHA Phillips [address] PCP - General Internal Medicine 12/28/17
--- OUTSIDE RECORDS SUMMARY | 2024-04-11 13:36 | XMS_ITS | Encounter Summary ---
Author Organization [employer] Address [address] [place] [address] 7 [place] [address] Care Team Providers Care Performance Makeup Artist Name Role Phone Carlo Santana MD Primary Care Provider +1- [phone] Encounter Details Date Type Department Care Team ([facility] st Contact Info) Description 11/07/2023 Orders Only [facility] & [facility]EDS [address] [place], [place] [phone] Carlo Santana MD 505 [place] [address] Muscle spasm Social History Tobacco Use Types [...] 05/31/2024 11:00 AM EDT Clinical Support [facility] MED & PEDS [address] [place] [address] 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, HUGO 505 [place] [address] documented as of this encounter Visit Diagnoses Diagnosis Muscle spasm Spasm of muscle documented in this encounter Additional Health Concerns Assessment Noted Time PHQ-9 Depression Total Score: 3 06/04/19 23 3:42 PM EDT documented as of this encounter Care Teams Performance Makeup Artist Relationship Specialty Start Date End Date Carlo Santana MD 505 [place] [address] PCP - General Internal Medicine 12/28/17 documented as of this encounter
--- OUTSIDE RECORDS SUMMARY | 2024-04-11 13:36 | XMS_ITS | Encounter Summary ---
Author Organization [employer] Address 75 [facility] 7 [place] [address] Care Team Providers Care Health Diagnostics Teacher Name Role Phone Carlo Santana MD Primary Care Provider +1- [phone] Reason for Visit * Reason Comments Med Refill Encounter Details Date Type Department Care Team ([facility] st Contact Info) Description 03/31/2023 Refill [facility] [address] [place] [address] Carlo Santana MD 505 [place], [place] [phone] Chronic left-sided low back pain with left-sided [...] [facility] MED & PEDS 505 [place] [address] 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 RN 505 [place] [address] documented as of this encounter Visit Diagnoses Diagnosis Chronic left-sided low back pain with left-sided sciatica Low back pain radiating down leg documented in this encounter Additional Health Concerns Assessment Noted Time PHQ-9 Depression Total Score: 3 06/04/19 23 3:42 PM EDT documented as of this encounter Care Teams Health Diagnostics Teacher Relationship Specialty Start Date End Date Carlo Santana MD 505 [place] [address] PCP - General Internal Medicine 12/28/17 documented as of this encounter
--- OUTSIDE RECORDS SUMMARY | 2024-04-11 13:36 | XMS_ITS | Encounter Summary ---
Author Organization [employer] Address [address] [place] [address] 7 [place] [address] Care Team Providers Care Outreach Liaison Name Role Phone Carlo Santana MD Primary Care Provider +1- [phone] Encounter Details Date Type Department Care Team ([facility] st Contact Info) Description 09/16/2023 Orders Only [facility] MED & PEDS 505 [place], [place] [phone] Carlo Santana MD 505 [place] [address] Bipolar affective disorder, remission status unspecified ([facility]) Social History Tobacco Use Types [...] Upcoming Encounters Date Type Department Care Team ([facility] st Contact Info) Description 05/31/2024 11:00 AM EDT Clinical Support [facility] MED & PEDS 505 [place] [address] 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, HUGO 505 [place] [address] documented as of this encounter Visit Diagnoses Diagnosis Bipolar affective disorder, remission status unspecified ([facility]) documented in this encounter Additional Health Concerns Assessment Noted Time PHQ-9 Depression Total Score: 3 06/04/19 23 3:42 PM EDT documented as of this encounter Care Teams Outreach Liaison Relationship Specialty Start Date End Date Carlo Santana MD 505 [place] [address] PCP - General Internal Medicine 12/28/17 documented as of this encounter
--- OUTSIDE RECORDS SUMMARY | 2024-04-11 13:36 | XMS_ITS | Encounter Summary ---
Author Organization [employer] Address [address] [place] [address] 7 [place] [address] Care Team Providers Care Cracking Unit Operator Name Role Phone Carlo Santana MD Primary Care Provider +1- [phone] Reason for Visit * Reason Comments Med Change Request Encounter Details Date Type Department Care Team ([facility] Contact Info) Description 04/08/[address] [facility] MED & PEDS 505 [place] [address] Carlo Santana MD 505 [place] [address] Obesity (BMI 30-39.9) Social History Tobacco Use [...] Upcoming Encounters Date Type Department Care Team ([facility] st Contact Info) Description 05/31/2024 11:00 AM EDT Clinical Support [facility] MED & PEDS 505 [place] [address] 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 RN 505 [place] [address] documented as of this encounter Visit Diagnoses Diagnosis Obesity (BMI 30-39.9) documented in this encounter Additional Health Concerns Assessment Noted Time PHQ-9 Depression Total Score: 3 06/04/19 23 3:42 PM EDT documented as of this encounter Care Teams Cracking Unit Operator Relationship Specialty Start Date End Date Carlo Santana MD 505 [place] [address] PCP - General Internal Medicine 12/28/17 documented as of this encounter
--- OUTSIDE RECORDS SUMMARY | 2024-04-11 13:36 | XMS_ITS | Encounter Summary ---
Author Organization [employer] Address [address] [facility] 7 [place] [address] Care Team Providers Care Nuclear Reactor Engineer Name Role Phone Carlo Santana MD Primary Care Provider +1- [phone] Reason for Visit * Reason Onset Date Comments Med Refill 11/02/2023 Encounter Details Date Type Department Care Team (Late st Contact Info) Description 11/02/2023 Telephone [facility] 230 [place] [address] Carlo Santana MD 505 [place], [place] [phone] Med Refill Social History Tobacco Use Types [...] script for oxycodone to be sent to [facility] on file. * Telephone Encounter - Quan Mena - 11/02/2023 9:15 AM EDT Tc from pt stating oxyCODONE-acetaminophen (Percocet) 7.5-325 MG tablet was sent to the wrong pharmacy and was advised by the pharmacy to contact pcp to have script transferred to the right pharmacy.Pt is requesting to have script sent to [facility]. If any questions you can contact pt at [phone]. documented in this encounter Plan of Treatment Upcoming Encounters Date Type Department Care Team (Late st Contact Info) Description 05/31/2024 11:00 AM EDT Clinical Support [facility] MED & PEDS 505 [place] [address] 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, HUGO 505 [place] [address] documented as of this encounter Visit Diagnoses Not on filedocumented in this encounter Additional Health Concerns Assessment Noted Time PHQ-9 Depression Total Score: 3 06/04/19 23 3:42 PM EDT documented as of this encounter Care Teams Nuclear Reactor Engineer Relationship Specialty Start Date End Date Carlo Santana MD [address] [place] [id number] PCP - General Internal Medicine 12/28/17 documented as of this encounter
--- OUTSIDE RECORDS SUMMARY | 2024-04-11 13:36 | XMS_ITS | Encounter Summary ---
Author Organization [employer] Address [address] [facility] 7 [place] [address] Care Team Providers Care Auto Repair Shop Manager Name Role Phone Carlo Santana MD Primary Care Provider +1- [phone] Reason for Visit * Reason Onset Date Comments Med Refill 09/13/2022 Encounter Details Date Type Department Care Team (Late st Contact Info) Description 09/13/2022 Telephone [facility] MEDICINE 230 [place] [address] Carlo Santana MD 505 [place], [place] [phone] Med Refill Social History Tobacco Use Types [...] is your housing situation today? I have dionen william 01/19/[address] you [...] mg , would like script sent to [facility] on file. documented in this encounter Plan of Treatment Upcoming Encounters Date Type Department Care Team ([facility] st Contact Info) Description 05/31/2024 11:00 AM EDT Clinical Support [facility] MED & PEDS [address] [facility] [place] [address] 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 RN 505 [place] [address] documented as of this encounter Visit Diagnoses Not on filedocumented in this encounter Additional Health Concerns Assessment Noted Time PHQ-9 Depression Total Score: 3 06/04/19 23 3:42 PM EDT documented as of this encounter Care Teams Auto Repair Shop Manager Relationship Specialty Start Date End Date Carlo Santana MD [address] [place] [address] PCP - General Internal Medicine 12/28/17 documented as of this encounter
--- OUTSIDE RECORDS SUMMARY | 2024-04-11 13:36 | XMS_ITS | Encounter Summary ---
Author Organization [employer] Address 75 [facility] 7 [place] [address] Care Team Providers Care Coffee Attendant Name Role Phone Carlo Santana MD Primary Care Provider +1- [phone] Reason for Visit * Reason Onset Date Comments Med Refill 09/17/2023 Encounter Details Date Type Department Care Team (Late st Contact Info) Description 09/17/2023 Refill [facility] MED[facility] 230 [place] [address] Carlo Santana MD 505 [place], [place] [phone] Chronic left-sided low back pain with left-sided [...] [facility] MED & PEDS 505 [place] [address] 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, HUGO 505 [place] [address] documented as of this encounter Visit Diagnoses Diagnosis Chronic left-sided low back pain with left-sided sciatica documented in this encounter Additional Health Concerns Assessment Noted Time PHQ-9 Depression Total Score: 3 06/04/19 23 3:42 PM EDT documented as of this encounter Care Teams Coffee Attendant Relationship Specialty Start Date End Date Carlo Santana MD 505 [place] [address] PCP - General Internal Medicine 12/28/17 documented as of this encounter
--- OUTSIDE RECORDS SUMMARY | 2024-04-11 13:36 | XMS_ITS | Encounter Summary ---
Author Organization [employer] Address [address] [facility] 7 [place] [address] Care Team Providers Care Felter Tennis Balls Name Role Phone Carlo Santana MD Primary Care Provider +1- [phone] Reason for Visit * Reason Onset Date Comments Med Refill 02/20/2024 Encounter Details Date Type Department Care Team ([facility] st Contact Info) Description 02/20/2024 Telephone [facility] MEDICINE 230 [place] [address] Carlo Santana MD 505 [place], [place] [phone] Med Refill Social History Tobacco Use Types [...] (1000 UT) capsule To be sent to: [facility]/pharmacy #[id number] LEATHA PHILLIPS - [phone] [facility] documented in this encounter Plan of Treatment Upcoming Encounters Date Type Department Care Team ([facility] Contact Info) Description 05/31/2024 11:00 AM EDT Clinical Support [facility] MED & PEDS 505 [place] [address] 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, HUGO 505 [place] [address] documented as of this encounter Visit Diagnoses Not on filedocumented in this encounter Additional Health Concerns Assessment Noted Time PHQ-9 Depression Total Score: 15 024 11:50 AM EST documented as of this encounter Care Teams Felter Tennis Balls Relationship Specialty Start Date End Date Carlo Santana MD 505 [place] [address] PCP - General Internal Medicine 12/28/17 documented as of this encounter
--- OUTSIDE RECORDS SUMMARY | 2024-04-11 13:36 | XMS_ITS | Encounter Summary ---
Author Organization [employer] Address 75 [facility] 7 [place] [address] Care Team Providers Care Refrigeration System Installer Name Role Phone Carlo Santana MD Primary Care Provider +1- [phone] Reason for Visit * Reason Onset Date Comments Med Refill 02/20/2024 Encounter Details Date Type Department Care Team ([facility] st Contact Info) Description 02/20/2024 Telephone [facility] MEDICINE 230 [place] [address] Carlo Santana MD 505 [place], [place] [phone] Med Refill Social History Tobacco Use Types [...] PM EST Disposable underpads order sent to [facility] and signed rx sent to scan pending decision. * Telephone Encounter - Grabiel Taylor - 02/20/2024 9:08 AM EST Tc from pt stating that the doctor stated that he would prescribe disposable bed pads. Pt would like for them to go to [facility]. If any question you can contact pt at [phone] documented in this encounter Plan of Treatment Upcoming Encounters Date Type Department Care Team ([facility] st Contact Info) Description 05/31/2024 11:00 AM EDT Clinical Support [facility] MED & PEDS 505 [place] [address] 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, RN 505 [place] [address] documented as of this encounter Visit Diagnoses Not on filedocumented in this encounter Additional Health Concerns Assessment Noted Time PHQ-9 Depression Total Score: 15 024 11:50 AM EST documented as of this encounter Care Teams Refrigeration System Installer Relationship Specialty Start Date End Date Carlo Santana MD [address] [place] [address] PCP - General Internal Medicine 12/28/17 documented as of this encounter
--- OUTSIDE RECORDS SUMMARY | 2024-04-11 13:36 | XMS_ITS | Encounter Summary ---
Author Organization [employer] Address 75 [facility] 7t [place] [address] Care Team Providers Care Trials Manager Name Role Phone Carlo Santana MD Primary Care Provider +1- [phone] Encounter Details Date Type Department Care Team (Late st Contact Info) Description 11/02/2023 Orders Only [facility] 230 [place] [address] Carlo Santana MD [address] [facility] [address] [place], [place] [phone] Chronic left-sided low back pain with left-sided [...] Upcoming Encounters Date Type Department Care Team ([facility] st Contact Info) Description 05/31/2024 11:00 AM EDT Clinical Support [facility] MED & PEDS 505 [place] [address] 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, HUGO 505 [place] [address] documented as of this encounter Visit Diagnoses Diagnosis Chronic left-sided low back pain with left-sided sciatica documented in this encounter Additional Health Concerns Assessment Noted Time PHQ-9 Depression Total Score: 3 06/04/19 23 3:42 PM EDT documented as of this encounter Care Teams Trials Manager Relationship Specialty Start Date End Date Carlo Santana MD 505 [place] [address] PCP - General Internal Medicine 12/28/17 documented as of this encounter
--- OUTSIDE RECORDS SUMMARY | 2024-04-11 13:36 | XMS_ITS | Encounter Summary ---
Author Organization [employer] Address [address] [place] [address] 7 [place] [address] Care Team Providers Care Fur Blower Operator Name Role Phone Carlo Santana MD Primary Care Provider +1- [phone] Reason for Visit * Reason Onset Date Comments Prior Authorization 09/14/2023 Encounter Details Date Type Department Care Team ([facility] st Contact Info) Description 09/14/2023 Telephone [facility] MED & PEDS 505 [place] [address] Carlo Santana MD 505 [place] [address] Prior Authorization Social History Tobacco Use Types [...] Description 05/31/2024 11:00 AM EDT Clinical Support [facility] MED & PEDS 505 [place] [address] 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, RN 505 [place] [address] documented as of this encounter Visit Diagnoses Diagnosis Chronic left-sided low back pain with left-sided sciatica documented in this encounter Additional Health Concerns Assessment Noted Time PHQ-9 Depression Total Score: 3 06/04/19 23 3:42 PM EDT documented as of this encounter Care Teams Fur Blower Operator Relationship Specialty Start Date End Date Carlo Santana MD 505 [place] [address] PCP - General Internal Medicine 12/28/17 documented as of this encounter
--- OUTSIDE RECORDS SUMMARY | 2024-04-11 13:36 | XMS_ITS | Encounter Summary ---
Author Organization [employer] Address 75 [facility] 7 [place] [address] Care Team Providers Care Commercial Airline Pilot Name Role Phone Carlo Santana MD Primary Care Provider +1- [phone] Reason for Visit * Reason Onset Date Comments Med Refill 02/28/2024 Medication Question 02/28/2024 Encounter Details Date Type Department Care Team ([facility] st Contact Info) Description 02/28/2024 Telephone [facility] MEDICINE 230 [place] [address] Carol Santana MD [address] [facility] [address] [place], [place] [phone] Med Refill; Medication Question Social History Tobacco [...] tablet If any questions contact pt at [phone] documented in this encounter Plan of Treatment Upcoming Encounters Date Type Department Care Team ([facility] st Contact Info) Description 05/31/2024 11:00 AM EDT Clinical Support [facility] MED & PEDS 505 [place] [address] 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 RN 505 [place] [address] documented as of this encounter Visit Diagnoses Not on filedocumented in this encounter Additional Health Concerns Assessment Noted Time PHQ-9 Depression Total Score: 15 024 11:50 AM EST documented as of this encounter Care Teams Commercial Airline Pilot Relationship Specialty Start Date End Date Carlo Santana MD 505 [place] [address] PCP - General Internal Medicine 12/28/17 documented as of this encounter
--- OUTSIDE RECORDS SUMMARY | 2024-04-11 13:36 | XMS_ITS | Encounter Summary ---
Author Organization [employer] Address 75 [facility] 7 [place] [address] Care Team Providers Care Decontaminator Name Role Phone Carlo Santana MD Primary Care Provider +1- [phone] Reason for Visit * Reason Onset Date Comments Nurse Triage 10/31/2023 Encounter Details Date Type Department Care Team (Late st Contact Info) Description 10/31/2023 Telephone [facility] MEDICINE 230 [place] [address] Carlo Santana MD [address] [facility] [address] [place], [place] [phone] Nurse Triage Social History Tobacco Use Types [...] need for follow-up with a provider. Suggested [facility] but pt wanted to see PCP for stronger lidocaine patches for her back. Pt reports pain as a constant 7-8/10 and can barely move. Reiterated that pt should be seen for the fall to be properly evaluated and there was not same daycare appt at [facility]. Pt declined [place] and ended call. [...] Upcoming Encounters Date Type Department Care Team ([facility] st Contact Info) Description 05/31/2024 11:00 AM EDT Clinical Support [facility] MED & PEDS 505 [place] [address] Fariba Gandhi RN 505 [place] [address] documented as of this encounter Visit Diagnoses Not on filedocumented in this encounter Additional Health Concerns Assessment Noted Time PHQ-9 Depression Total Score: 3 06/04/19 23 3:42 PM EDT documented as of this encounter Care Teams Decontaminator Relationship Specialty Start Date End Date Carlo Santana MD 505 [place] [address] PCP - General Internal Medicine 12/28/17 documented as of this encounter
--- OUTSIDE RECORDS SUMMARY | 2024-04-11 13:36 | XMS_ITS | Encounter Summary ---
Author Organization [employer] Address 75 [facility] 7 [place] [address] Care Team Providers Care Kitchen Stewardess Name Role Phone Carlo Santana MD Primary Care Provider +1- [phone] Reason for Visit * Reason Comments Med Refill Encounter Details Date Type Department Care Team ([facility] st Contact Info) Description 11/02/2023 Refill [facility]INE 230 [place] [address] Carlo Santana MD 505 [place], [place] [phone] Chronic left-sided low back pain with left-sided [...] Upcoming Encounters Date Type Department Care Team ([facility] st Contact Info) Description 05/31/2024 11:00 AM EDT Clinical Support [facility] MED & PEDS 505 [place] [address] Fariba Gandhi RN 505 [place] [address] documented as of this encounter Visit Diagnoses Diagnosis Chronic left-sided low back pain with left-sided sciatica documented in this encounter Additional Health Concerns Assessment Noted Time PHQ-9 Depression Total Score: 3 06/04/19 23 3:42 PM EDT documented as of this encounter Care Teams Kitchen Stewardess Relationship Specialty Start Date End Date Carlo Santana MD 505 [place] [address] PCP - General Internal Medicine 12/28/17 documented as of this encounter
--- OUTSIDE RECORDS SUMMARY | 2024-04-11 13:36 | XMS_ITS | Encounter Summary ---
Author Organization [employer] Address [address] [facility] 7 [place] [address] Care Team Providers Care Audio Video Tech Name Role Phone Carlo Santana MD Primary Care Provider +1- [phone] Reason for Visit * Reason Onset Date Comments Referral 02/22/2024 Encounter Details Date Type Department Care Team (Late st Contact Info) Description 02/22/2024 Telephone [facility] MEDICINE 230 [place] [address] Carlo Santana MD [address] [facility] [address] [place], [place] [phone] Referral Social History Tobacco Use Types Packs/Day [...] second referral for Outpatient Therapy, Callback number [phone] documented in this encounter Plan of Treatment Upcoming Encounters Date Type Department Care Team (Late st Contact Info) Description 05/31/2024 11:00 AM EDT Clinical Support [facility] MED & PEDS 505 [place] [address] Fariba Gandhi, RN 505 [place] [address] documented as of this encounter Visit Diagnoses Not on filedocumented in this encounter Additional Health Concerns Assessment Noted Time PHQ-9 Depression Total Score: 15 024 11:50 AM EST documented as of this encounter Care Teams Audio Video Tech Relationship Specialty Start Date End Date Carlo Santana MD [address] [place] [address] PCP - General Internal Medicine 12/28/17 documented as of this encounter
--- OUTSIDE RECORDS SUMMARY | 2024-04-11 13:36 | XMS_ITS | Encounter Summary ---
Author Organization [employer] Address 75 [facility] 7 [place] [address] Care Team Providers Care Wire Preparation Machine Tender Name Role Phone Carlo Santana MD Primary Care Provider +1- [phone] Reason for Visit * Reason Onset Date Comments r/s SANTHOSH RN APPT 03/21/2023 Encounter Details Date Type Department Care Team (Late st Contact Info) Description 03/21/2023 Telephone [facility] MEDICINE [address] [place] [address] Carlo Santana MD [address] [place] [address] r/s BOTTLE HOP RN APPT Social History Tobacco Use Types [...] EST Tc from pt requesting to r/s BOTTLE HOP RN appt scheduled for 03/22/23. Appt has been cancelled. documented in this encounter Plan of Treatment Upcoming Encounters Date Type Department Care Team ([facility] st Contact Info) Description 05/31/2024 11:00 AM EDT Clinical Support [facility] MED & PEDS 505 [place] [address] Fariba Gandhi, HUGO 505 [place] [address] documented as of this encounter Visit Diagnoses Not on filedocumented in this encounter Additional Health Concerns Assessment Noted Time PHQ-9 Depression Total Score: 3 06/04/19 23 3:42 PM EDT documented as of this encounter Care Teams Wire Preparation Machine Tender Relationship Specialty Start Date End Date Carlo Santana MD [address] [place] [address] PCP - General Internal Medicine 12/28/17 documented as of this encounter
--- OUTSIDE RECORDS SUMMARY | 2024-04-11 13:36 | XMS_ITS | Encounter Summary ---
Author Organization [employer] Address [address] [place] [address] 7 [place] [address] Care Team Providers Care Trailer Assembler Name Role Phone Carlo Santana MD Primary Care Provider +1- [phone] Reason for Visit * Reason Onset Date Comments Appointment Request 09/16/2023 Encounter Details Date Type Department Care Team ([facility] st Contact Info) Description 09/16/2023 Telephone [facility] MED & PEDS 505 [place] [address] Carlo Santana MD 505 [place] [address] Appointment Request Social History Tobacco Use Types [...] requesting telehealth with PCP to discuss medication. Mmd Unit Teacher attempted to schedule for November but pt declined and stated would like a sooner appointment. Denied triage. Contact pt at [phone] documented in this encounter Plan of Treatment Upcoming Encounters Date Type Department Care Team (Late st Contact Info) Description 05/31/2024 11:00 AM EDT Clinical Support [facility] MED & PEDS [address] [place] [address] Fariba Gandhi, HUGO 505 [place] [address] documented as of this encounter Visit Diagnoses Not on filedocumented in this encounter Additional Health Concerns Assessment Noted Time PHQ-9 Depression Total Score: 3 06/04/19 23 3:42 PM EDT documented as of this encounter Care Teams Trailer Assembler Relationship Specialty Start Date End Date Carlo Santana MD 505 [place] [address] PCP - General Internal Medicine 12/28/17 documented as of this encounter
--- OUTSIDE RECORDS SUMMARY | 2024-04-11 13:36 | XMS_ITS | Encounter Summary ---
Author Organization [employer] Address [address] [place] [address] 7 [place] [address] Care Team Providers Care Automobile Locator Name Role Phone Carlo Santana MD Primary Care Provider +1- [phone] Encounter Details Date Type Department Care Team ([facility] st Contact Info) Description 02/08/2024 Orders Only [facility] MED & PEDS 505 [place], [place] [phone] Carlo Santana MD 505 [place], [place] [phone] [place] (generalized anxiety disorder) (Primary Dx) Social [...] Encounters Date Type Department Care Team ([facility] st Contact Info) Description 05/31/2024 11:00 AM EDT Clinical Support [facility] MED & PEDS 505 [place] [address] Fariba Gandhi, HUGO 505 [place] [address] documented as of this encounter Visit Diagnoses Diagnosis [place] (generalized anxiety disorder)- Primary Generalized anxiety disorder documented in this encounter Additional Health Concerns Assessment Noted Time PHQ-9 Depression Total Score: 15 024 11:50 AM EST documented as of this encounter Care Teams Automobile Locator Relationship Specialty Start Date End Date Carlo Santana MD 505 [place] [address] PCP - General Internal Medicine 12/28/17 documented as of this encounter
--- OUTSIDE RECORDS SUMMARY | 2024-04-11 13:36 | XMS_ITS | Encounter Summary ---
Author Organization [employer] Address 75 [facility] 7 [place] [address] Care Team Providers Care Email Administrator Name Role Phone Carlo Santana MD Primary Care Provider +1- [phone] Reason for Visit * Reason Onset Date Comments Appointment Request 09/20/2023 Encounter Details Date Type Department Care Team ([facility] st Contact Info) Description 09/20/2023 Telephone [facility] MEDICINE 230 [place] [address] Carlo Santana MD [address] [facility] [address] [place], [place] [phone] Appointment Request Social History Tobacco Use Types [...] Clinical Support [facility] MED & PEDS 505 [place] [address] Fariba Gandhi RN 505 [place] [address] documented as of this encounter Visit Diagnoses Not on filedocumented in this encounter Additional Health Concerns Assessment Noted Time PHQ-9 Depression Total Score: 3 06/04/19 23 3:42 PM EDT documented as of this encounter Care Teams Email Administrator Relationship Specialty Start Date End Date Carlo Santana MD 505 [place] [address] PCP - General Internal Medicine 12/28/17 documented as of this encounter
--- OUTSIDE RECORDS SUMMARY | 2024-04-11 13:36 | XMS_ITS | Encounter Summary ---
Author Organization [employer] Address 75 [facility] 7 [place] [address] Care Team Providers Care Mva Reactor Operator Head Name Role Phone Carlo Santana MD Primary Care Provider +1- [phone] Reason for Visit * Reason Onset Date Comments Med Refill 11/01/2023 Encounter Details Date Type Department Care Team (Late st Contact Info) Description 11/01/2023 Telephone [facility] MEDICINE 230 [place] [address] Carlo Santana MD 505 [place], [place] [phone] Med Refill Social History Tobacco Use Types [...] 7.5-325 MG tablet To be sent to: [facility]/pharmacy #[id number] [place] - [address] [facility] documented in this encounter Plan of Treatment Upcoming Encounters Date Type Department Care Team ([facility] st Contact Info) Description 05/31/2024 11:00 AM EDT Clinical Support [facility] MED & PEDS 505 [place] [address] Fariba Gandhi, HUGO 505 [place] [address] documented as of this encounter Visit Diagnoses Not on filedocumented in this encounter Additional Health Concerns Assessment Noted Time PHQ-9 Depression Total Score: 3 06/04/19 23 3:42 PM EDT documented as of this encounter Care Teams Mva Reactor Operator Head Relationship Specialty Start Date End Date Carlo Santana MD 505 [place] [address] PCP - General Internal Medicine 12/28/17 documented as of this encounter
--- OUTSIDE RECORDS SUMMARY | 2024-04-11 13:37 | XMS_ITS | Encounter Summary ---
Author Organization [employer] Address 75 [facility] 7 [place] [address] Care Team Providers Care Commercial Announcer Name Role Phone Carlo Santana MD Primary Care Provider +1- [phone] Reason for Visit * Reason Onset Date Comments Med Refill 11/03/2022 Encounter Details Date Type Department Care Team ([facility] st Contact Info) Description 11/03/2022 Telephone [facility] MEDICINE 230 [place] [address] Carlo Santana MD 505 [place] [address] Med Refill Social History Tobacco Use Types [...] script for glucose meter. Please contact at [phone] documented in this encounter Plan of Treatment Upcoming Encounters Date Type Department Care Team ([facility] st Contact Info) Description 05/31/2024 11:00 AM EDT Clinical Support [facility] MED & PEDS 505 [place] [address] Fariba Gandhi RN 505 [place] [address] documented as of this encounter Visit Diagnoses Not on filedocumented in this encounter Additional Health Concerns Assessment Noted Time PHQ-9 Depression Total Score: 3 06/04/19 23 3:42 PM EDT documented as of this encounter Care Teams Commercial Announcer Relationship Specialty Start Date End Date Carlo Santana MD 505 [place] [address] PCP - General Internal Medicine 12/28/17 documented as of this encounter
--- OUTSIDE RECORDS SUMMARY | 2024-04-11 13:37 | XMS_ITS | Encounter Summary ---
Author Organization [employer] Address 75 [facility] 7 [place] [address] Care Team Providers Care Meringuer Name Role Phone Carlo Santana MD Primary Care Provider +1- [phone] Reason for Visit * Reason Onset Date Comments Nurse Triage 11/22/2023 Encounter Details Date Type Department Care Team (Late st Contact Info) Description 11/22/2023 Telephone [facility] MED[facility] 230 [place] [address] Carlo Santana MD [address] [facility] [address] [place], [place] [phone] Nurse Triage Social History Tobacco Use Types [...] caller accepted this outcome Please contact at [phone] documented in this encounter Plan of Treatment Upcoming Encounters Date Type Department Care Team (Late st Contact Info) Description 05/31/2024 11:00 AM EDT Clinical Support [facility] MED & PEDS 505 [place] [address] Fariba Gandhi, RN 505 [place] [address] documented as of this encounter Visit Diagnoses Not on filedocumented in this encounter Additional Health Concerns Assessment Noted Time PHQ-9 Depression Total Score: 3 06/04/19 23 3:42 PM EDT documented as of this encounter Care Teams Meringuer Relationship Specialty Start Date End Date Carlo Santana MD 505 [place] [address] PCP - General Internal Medicine 12/28/17 documented as of this encounter
--- OUTSIDE RECORDS SUMMARY | 2024-04-11 13:37 | XMS_ITS | Encounter Summary ---
Author Organization [employer] Address [address] [place] [address] 7 [place] [address] Care Team Providers Care Receiving Clerk Name Role Phone Carlo Santana MD Primary Care Provider +1- [phone] Reason for Visit * Reason Onset Date Comments Durable Medical Equipment 12/23/2023 Encounter Details Date Type Department Care Team ([facility] st Contact Info) Description 12/23/2023 Telephone [facility] MED & PEDS 505 [place] [address] Carol Santana MD 505 [place] [address] Durable Medical Equipment Social History Tobacco Use [...] small If any questions contact pt at [phone] documented in this encounter Plan of Treatment Upcoming Encounters Date Type Department Care Team ([facility] st Contact Info) Description 05/31/2024 11:00 AM EDT Clinical Support [facility] MED & PEDS 505 [place] [address] Fariba Gandhi, HUGO 505 [place] [address] documented as of this encounter Visit Diagnoses Diagnosis Chronic left-sided low back pain with left-sided sciatica documented in this encounter Additional Health Concerns Assessment Noted Time PHQ-9 Depression Total Score: 3 06/04/19 23 3:42 PM EDT documented as of this encounter Care Teams Receiving Clerk Relationship Specialty Start Date End Date Carlo Santana MD 505 [place] [address] PCP - General Internal Medicine 12/28/17 documented as of this encounter
--- OUTSIDE RECORDS SUMMARY | 2024-04-11 13:37 | XMS_ITS | Encounter Summary ---
Author Organization [employer] Address [address] [place] [address] 7 [place] [address] Care Team Providers Care Flight Instructor Name Role Phone Carlo Santana MD Primary Care Provider +1- [phone] Reason for Visit * Reason Onset Date Comments Nurse Triage 11/09/2023 Encounter Details Date Type Department Care Team ([facility] st Contact Info) Description 11/09/2023 Telephone [facility] MED & PEDS 505 [place] [address] Carlo Santana MD 505 [place] [address] Nurse Triage Social History Tobacco Use Types [...] Description 05/31/2024 11:00 AM EDT Clinical Support [facility] MED & PEDS 505 [place] [address] Fariba Gandhi RN 505 [place] [address] documented as of this encounter Visit Diagnoses Not on filedocumented in this encounter Additional Health Concerns Assessment Noted Time PHQ-9 Depression Total Score: 3 06/04/19 23 3:42 PM EDT documented as of this encounter Care Teams Flight Instructor Relationship Specialty Start Date End Date Carlo Santana MD [address] [place] [address] PCP - General Internal Medicine 12/28/17 documented as of this encounter
--- OUTSIDE RECORDS SUMMARY | 2024-04-11 13:37 | XMS_ITS | Encounter Summary ---
Author Organization [employer] Address 75 [facility] 7 [place] [address] Care Team Providers Care Station Mechanic Apprentice Name Role Phone Carlo Santana MD Primary Care Provider +1- [phone] Reason for Visit * Reason Onset Date Comments Med Refill 04/21/2023 Encounter Details Date Type Department Care Team (Late st Contact Info) Description 04/21/2023 Refill [facility] MEDICINE 230 [place] [address] Carlo Santana MD 505 [place], [place] [phone] Low back pain radiating down leg Social [...] Upcoming Encounters Date Type Department Care Team ([facility] st Contact Info) Description 05/31/2024 11:00 AM EDT Clinical Support [facility] MED & PEDS 505 [place] [address] Fariba Gandhi RN 505 [place] [address] documented as of this encounter Visit Diagnoses Diagnosis Low back pain radiating down leg documented in this encounter Additional Health Concerns Assessment Noted Time PHQ-9 Depression Total Score: 3 06/04/19 23 3:42 PM EDT documented as of this encounter Care Teams Station Mechanic Apprentice Relationship Specialty Start Date End Date Carlo Santana MD [address] [place] [address] PCP - General Internal Medicine 12/28/17 documented as of this encounter
--- OUTSIDE RECORDS SUMMARY | 2024-04-11 13:37 | XMS_ITS | Encounter Summary ---
Author Organization [employer] Address [address] [place] [address] Care Team Providers Care Certified Coder Name Role Phone Carlo Santana MD Primary Care Provider +1- [phone] Reason for Visit * Reason Comments Med Refill Encounter Details Date Type Department Care Team (Late Contact Info) Description 10/28/2022 Refill [facility] MED & PEDS 505 [place] [address] Carlo Santana MD 505 [place] [address] Muscle spasm Social History Tobacco Use Types [...] [facility] MED & PEDS 505 [place] [address] Fraiba Gandhi, HUGO 505 [place] [address] documented as of this encounter Visit Diagnoses Diagnosis Muscle spasm Spasm of muscle documented in this encounter Additional Health Concerns Assessment Noted Time PHQ-9 Depression Total Score: 3 06/04/19 23 3:42 PM EDT documented as of this encounter Care Teams Certified Coder Relationship Specialty Start Date End Date Carlo Santana MD 505 [place] [address] PCP - General Internal Medicine 12/28/17 documented as of this encounter
--- OUTSIDE RECORDS SUMMARY | 2024-04-11 13:37 | XMS_ITS | Encounter Summary ---
Author Organization [employer] Address 75 [facility] 7t [place] [address] Care Team Providers Care Senior Care Assistant Name Role Phone Carlo Santana MD Primary Care Provider +1- [phone] Encounter Details Date Type Department Care Team (Late st Contact Info) Description 12/20/2023 Orders Only [facility] 230 [place] [address] Carlo Santana MD [address] [place], [place] [phone] Hypoproteinemia (CMS/HCC) (Primary Dx) Social History Tobacco [...] [facility] MED & PEDS 505 [place] [address] Fariba Gandhi, HUGO 505 [place] [address] documented as of this encounter Visit Diagnoses Diagnosis Hypoproteinemia (CMS/HCC)- Primary Other disorders of plasma protein metabolism documented in this encounter Additional Health Concerns Assessment Noted Time PHQ-9 Depression Total Score: 3 06/04/19 23 3:42 PM EDT documented as of this encounter Care Teams Senior Care Assistant Relationship Specialty Start Date End Date Carlo Santana MD [address] [place] [address] PCP - General Internal Medicine 12/28/17 documented as of this encounter
--- OUTSIDE RECORDS SUMMARY | 2024-04-11 13:37 | XMS_ITS | Encounter Summary ---
Author Organization [employer] Address 75 [facility] 7 [place] [address] Care Team Providers Care Kitchen Manager Name Role Phone Carlo Santana MD Primary Care Provider +1- [phone] Reason for Visit * Reason Onset Date Comments Call Back Request 06/09/2023 Encounter Details Date Type Department Care Team ([facility] st Contact Info) Description 06/09/2023 Telephone [facility] MEDICINE 230 [place] [address] Carlo Santana MD [address] [facility] [address] [place], [place] [phone] Call Back Request Social History Tobacco Use [...] Tc from pt requesting a call back, screen writer ask pt if wanted to r/s appt but pt sated I wanted to talk about it documented in this encounter Plan of Treatment Upcoming Encounters Date Type Department Care Team (Late st Contact Info) Description 05/31/2024 11:00 AM EDT Clinical Support [facility] MED & PEDS 505 [place] [address] Fariba Gandhi, HUGO 505 [place] [address] documented as of this encounter Visit Diagnoses Not on filedocumented in this encounter Additional Health Concerns Assessment Noted Time PHQ-9 Depression Total Score: 3 06/04/19 23 3:42 PM EDT documented as of this encounter Care Teams Kitchen Manager Relationship Specialty Start Date End Date Carlo Santana MD 505 [place] [address] PCP - General Internal Medicine 12/28/17 documented as of this encounter
--- OUTSIDE RECORDS SUMMARY | 2024-04-11 13:37 | XMS_ITS | Encounter Summary ---
Author Organization [employer] Address 75 [facility] 7 [place] [address] Care Team Providers Care Naphthalene Operator Name Role Phone Carlo Santana MD Primary Care Provider +1- [phone] Reason for Visit * Reason Onset Date Comments Med Management 12/21/2023 Encounter Details Date Type Department Care Team (Late st Contact Info) Description 12/21/2023 Telephone [facility] MEDICINE 230 [place] [address] Carlo Santana MD [address] [facility] [address] [address] [place], [place] [phone] Med Management Social History Tobacco Use Types [...] Description 05/31/2024 11:00 AM EDT Clinical Support [facility] MED & PEDS 505 [place] [address] Fariba Gandhi, HUGO 505 [place] [address] documented as of this encounter Visit Diagnoses Not on filedocumented in this encounter Additional Health Concerns Assessment Noted Time PHQ-9 Depression Total Score: 3 06/04/19 23 3:42 PM EDT documented as of this encounter Care Teams Naphthalene Operator Relationship Specialty Start Date End Date Carlo Santana MD 505 [place] [address] PCP - General Internal Medicine 12/28/17 documented as of this encounter
--- OUTSIDE RECORDS SUMMARY | 2024-04-11 13:37 | XMS_ITS | Encounter Summary ---
Author Organization [employer] Address 75 [facility] 7 [place] [address] Care Team Providers Care Risk Control Representative Name Role Phone Carlo Santana MD Primary Care Provider +1- [phone] Reason for Visit * Reason Onset Date Comments Med Refill 11/28/2023 Encounter Details Date Type Department Care Team (Late st Contact Info) Description 11/28/2023 Telephone [facility] MEDICINE 230 [place] [address] Carlo Santana MD 505 [place], [place] [phone] Med Refill Social History Tobacco Use Types [...] 11:00 AM EDT Clinical Support [facility] MED & PEDS 505 [place] [address] Fariba Gandhi RN 505 [place] [address] documented as of this encounter Visit Diagnoses Not on filedocumented in this encounter Additional Health Concerns Assessment Noted Time PHQ-9 Depression Total Score: 3 06/04/19 23 3:42 PM EDT documented as of this encounter Care Teams Risk Control Representative Relationship Specialty Start Date End Date Carlo Santana MD 505 [place] [address] PCP - General Internal Medicine 12/28/17 documented as of this encounter
--- OUTSIDE RECORDS SUMMARY | 2024-04-11 13:37 | XMS_ITS | Encounter Summary ---
Author Organization [employer] Address [address] [place] [address] [place] [address] Care Team Providers Care Mutual Fund Accountant Name Role Phone Carlo Santana MD Primary Care Provider +1- [phone] Reason for Visit * Reason Onset Date Comments Appointment Request 05/04/2022 Encounter Details Date Type Department Care Team ([facility] Contact Info) Description 05/04/2022 Telephone [facility] MED & PEDS 505 [place] [address] Carlo Santana MD 505 [place] [address] Appointment Request Social History Tobacco Use Types [...] done for the low back pain but [facility] advised to pt that she is not ableto make the appt , the provider has to make the appt for her. Please contact pt at [phone] documented in this encounter Plan of Treatment Upcoming Encounters Date Type Department Care Team (Late st Contact Info) Description 05/31/2024 11:00 AM EDT Clinical Support [facility] MED & PEDS 505 [place] [address] Fariba Gandhi, RN 505 [place] [address] documented as of this encounter Visit Diagnoses Not on filedocumented in this encounter Care Teams Mutual Fund Accountant Relationship Specialty Start Date End Date Carlo Santana MD 505 [place] [address] PCP - General Internal Medicine 12/28/17 documented as of this encounter
--- OUTSIDE RECORDS SUMMARY | 2024-04-11 13:37 | XMS_ITS | Encounter Summary ---
Author Organization [employer] Address [address] [place] [address] 7 [place] [address] Care Team Providers Care Poultry Slaughterer Name Role Phone Carlo Santana MD Primary Care Provider +1- [phone] Reason for Visit * Reason Comments Med Refill Encounter Details Date Type Department Care Team ([facility] Contact Info) Description 12/06/2023 Refill [facility] MED & PEDS 505 [place] [address] Carlo Santana MD 505 [place] [address] Bipolar affective disorder, remission status unspecified (CMS/HCC) [...] [facility] MED & PEDS 505 [place] [address] Fariba Gandhi RN 505 [place] [address] documented as of this encounter Visit Diagnoses Diagnosis Bipolar affective disorder, remission status unspecified (CMS/HCC) documented in this encounter Additional Health Concerns Assessment Noted Time PHQ-9 Depression Total Score: 3 06/04/19 23 3:42 PM EDT documented as of this encounter Care Teams Poultry Slaughterer Relationship Specialty Start Date End Date Carlo Santana MD 505 [place] [address] PCP - General Internal Medicine 12/28/17 documented as of this encounter
--- OUTSIDE RECORDS SUMMARY | 2024-04-11 13:37 | XMS_ITS | Encounter Summary ---
Author Organization [employer] Address 75 [facility] 7 [place] [address] Care Team Providers Care Car Wiper Name Role Phone Carlo Santana MD Primary Care Provider +1- [phone] Reason for Visit * Reason Comments Med Refill Encounter Details Date Type Department Care Team ([facility] st Contact Info) Description 06/20/2022 Refill [facility] MEDICINE 230 [place] [address] Carlo Santana MD 505 [place], [place] [phone] Chronic left-sided low back pain with left-sided [...] [facility] MED & PEDS 505 [place] [address] Fariba Gandhi, RN 505 [place] [address] documented as of this encounter Visit Diagnoses Diagnosis Chronic left-sided low back pain with left-sided sciatica documented in this encounter Additional Health Concerns Assessment Noted Time PHQ-9 Depression Total Score: 3 06/04/19 3:42 PM EDT documented as of this encounter Care Teams Car Wiper Relationship Specialty Start Date End Date Carlo Santana MD 505 [place] [address] PCP - General Internal Medicine 12/28/17 documented as of this encounter
--- OUTSIDE RECORDS SUMMARY | 2024-04-11 13:37 | XMS_ITS | Encounter Summary ---
Author Organization [employer] Address 75 [facility] 7 [place] [address] Care Team Providers Care Donation Worker Name Role Phone Carlo Santana MD Primary Care Provider +1- [phone] Reason for Visit * Reason Onset Date Comments Nurse Triage 04/12/2023 Encounter Details Date Type Department Care Team (Late st Contact Info) Description 04/12/[address] [facility] MEDICINE 230 [place] [address] Carlo Santana MD [address] [place], [place] [phone] Nurse Triage Social History Tobacco Use Types [...] with disposition and home care reviewed. [address] [place] 04/13/23 @ 1120am. Insurance is veriifed as [...] [facility] 505 [place] [address] Fariba Gandhi, RN 505 [place] [address] documented as of this encounter Visit Diagnoses Not on filedocumented in this encounter Additional Health Concerns Assessment Noted Time PHQ-9 Depression Total Score: 3 06/04/19 23 3:42 PM EDT documented as of this encounter Care Teams Donation Worker Relationship Specialty Start Date End Date Carlo Santana MD 505 [place] [address] PCP - General Internal Medicine 12/28/17 documented as of this encounter
--- OUTSIDE RECORDS SUMMARY | 2024-04-11 13:37 | XMS_ITS | Encounter Summary ---
Author Organization [employer] Address 75 [facility] 7 [place] [address] Care Team Providers Care Food Manager Name Role Phone Carlo Santana MD Primary Care Provider +1- [phone] Reason for Visit * Reason Onset Date Comments Med Refill 10/18/2023 Encounter Details Date Type Department Care Team (Late st Contact Info) Description 10/18/2023 Telephone [facility] MEDICINE 230 [place] [address] Carlo Santana MD 505 [place], [place] [phone] Med Refill Social History Tobacco Use Types [...] 1 MG tablet To be sent to: [facility] documented in this encounter Plan of Treatment Upcoming Encounters Date Type Department Care Team (Late st Contact Info) Description 05/31/2024 11:00 AM EDT Clinical Support [facility] MED & PEDS 505 [place] [address] Fariba Gandhi, RN 505 [place] [address] documented as of this encounter Visit Diagnoses Not on filedocumented in this encounter Additional Health Concerns Assessment Noted Time PHQ-9 Depression Total Score: 3 06/04/19 23 3:42 PM EDT documented as of this encounter Care Teams Food Manager Relationship Specialty Start Date End Date Carlo Santana MD 505 [place] [address] PCP - General Internal Medicine 12/28/17 documented as of this encounter
--- OUTSIDE RECORDS SUMMARY | 2024-04-11 13:37 | XMS_ITS | Encounter Summary ---
Author Organization [employer] Address 75 [facility] 7 [place] [address] Care Team Providers Care Reed Maker Name Role Phone Carlo Santana MD Primary Care Provider +1- [phone] Encounter Details Date Type Department Care Team (Late st Contact Info) Description 04/21/2023 Telephone [facility] MEDICINE 230 [place] [address] Carlo Santana MD [address] [facility] [address] [place], [place] [phone] Social History Tobacco Use Types Packs/Day Years [...] 05/31/2024 11:00 AM EDT Clinical Support [facility] MED & PEDS 505 [place] [address] Fariba Gandhi, RN 505 [place] [address] documented as of this encounter Visit Diagnoses Not on filedocumented in this encounter Additional Health Concerns Assessment Noted Time PHQ-9 Depression Total Score: 3 06/04/19 23 3:42 PM EDT documented as of this encounter Care Teams Reed Maker Relationship Specialty Start Date End Date Carlo Santana MD 505 [place] [address] PCP - General Internal Medicine 12/28/17 documented as of this encounter
--- OUTSIDE RECORDS SUMMARY | 2024-04-11 13:37 | XMS_ITS | Encounter Summary ---
Author Organization [employer] Address 75 [facility] 7 [place] [address] Care Team Providers Care Culinary Manager Name Role Phone Carlo Santana MD Primary Care Provider +1- [phone] Reason for Visit * Reason Onset Date Comments Med Refill 03/01/2023 Encounter Details Date Type Department Care Team ([facility] st Contact Info) Description 03/01/2023 Telephone [facility] MEDICINE 230 [place] [address] Carlo Santana MD [address] [place], [place] [phone] Med Refill Social History Tobacco Use Types [...] refill on oxyCODONE-acetaminophen (Percocet) 5-325 MG tablet [facility]/pharmacy #[id number] LEATHA PHILLIPS - [address] [facility] documented in this encounter Plan of Treatment Upcoming Encounters Date Type Department Care Team (Late st Contact Info) Description 05/31/2024 11:00 AM EDT Clinical Support [facility] MED & PEDS 505 [place] [address] Fariba Gandhi, RN 505 [place] [address] documented as of this encounter Visit Diagnoses Not on filedocumented in this encounter Additional Health Concerns Assessment Noted Time PHQ-9 Depression Total Score: 3 06/04/19 23 3:42 PM EDT documented as of this encounter Care Teams Culinary Manager Relationship Specialty Start Date End Date Carlo Santana MD 505 [place] [address] PCP - General Internal Medicine 12/28/17 documented as of this encounter
--- OUTSIDE RECORDS SUMMARY | 2024-04-11 13:37 | XMS_ITS | Encounter Summary ---
Author Organization [employer] Address [address] [place] [address] 7 [place] [address] Care Team Providers Care Ethylene Plant Operator Name Role Phone Carlo Santana MD Primary Care Provider +1- [phone] Encounter Details Date Type Department Care Team ([facility] st Contact Info) Description 03/05/2024 Orders Only [facility] CH[facility] MED & PEDS 505 [place], [place] [phone] Carlo Santana MD 505 [place] [address] Social History Tobacco Use Types Packs/Day Years [...] Upcoming Encounters Date Type Department Care Team ([facility] st Contact Info) Description 05/31/2024 11:00 AM EDT Clinical Support [facility] CH[facility] MED & PEDS 505 [place] [address] Fariba Gandhi, HUGO 505 [place] [address] documented as of this encounter Visit Diagnoses Not on filedocumented in this encounter Additional Health Concerns Assessment Noted Time PHQ-9 Depression Total Score: 15 024 11:50 AM EST documented as of this encounter Care Teams Ethylene Plant Operator Relationship Specialty Start Date End Date Carlo Santana MD 505 [place] [address] PCP - General Internal Medicine 12/28/17 documented as of this encounter
--- OUTSIDE RECORDS SUMMARY | 2024-04-11 13:37 | XMS_ITS | Encounter Summary ---
Author Organization [employer] Address 75 [facility] 7 [place] [address] Care Team Providers Care Truck Assembler Name Role Phone Carlo Santana MD Primary Care Provider +1- [phone] Reason for Visit * Reason Onset Date Comments Medication Question 05/06/2023 Encounter Details Date Type Department Care Team ([facility] st Contact Info) Description 05/06/2023 Telephone [facility] MEDICINE 230 [place] [address] Carlo Santana MD [address] [facility] [address] [facility] [address] [place], [place] [phone] Medication Question Social History Tobacco Use Types [...] [facility] MED & PEDS 505 [place] [address] Fariba Gandhi, HUGO 505 [place] [address] documented as of this encounter Visit Diagnoses Not on filedocumented in this encounter Additional Health Concerns Assessment Noted Time PHQ-9 Depression Total Score: 3 06/04/19 23 3:42 PM EDT documented as of this encounter Care Teams Truck Assembler Relationship Specialty Start Date End Date Carlo Santana MD 505 [place] [address] PCP - General Internal Medicine 12/28/17 documented as of this encounter
--- OUTSIDE RECORDS SUMMARY | 2024-04-11 13:37 | XMS_ITS | Encounter Summary ---
Author Organization [employer] Address 75 [facility] 7 [place] [address] Care Team Providers Care Welder Gas Automatic Name Role Phone Carlo Santana MD Primary Care Provider +1- [phone] Reason for Visit * Reason Onset Date Comments Referral 12/13/2023 Encounter Details Date Type Department Care Team (Late st Contact Info) Description 12/13/2023 Telephone [facility] MEDICINE 230 [place] [address] Carlo Santana MD [address] [place], [place] [phone] Referral Social History Tobacco Use Types Packs/Day [...] 12:00 PM EDT TC placed to pt [phone] in regards to below message. Pt did not answer, RN left requesting CB to red team nurses. TC placed to [phone] in regards to below message. Pt reports she does NOT want to be referred to PT. Pt reports she is looking to have referral to [facility] Adult edited. Pt reports she received a call from [facility] advising pt that she needs a NEW referral to [facility] stating specifically OUTPATIENT MEDICATION THERAPY as [facility] is interpreting the referral as inpatient. RN advised pt a message would be sent to [place]/ team for them to f/u w/ [facility] to determine what exactly is needed/how to alter referral to their request. Pt also reports Dr. Blanchard's office (isotope technician) is requesting a copy of the referral [...] message prior stating she does not want director long term care care she only wants physical therapy to obtain proper diagnoses. Pt also requesting for Dermatology referral to be fixed stating it needs a start and end date. If any questions you can contact pt at [phone]. * Telephone Encounter - Braden Cool - 12/13/2023 8:27 AM EDT Tc from pt requesting a referral for outpatient therapy at [facility] Out[facility]- [address] [place] [id number] - states will be seeing a therapist. Please contact at [phone] documented in this encounter Plan of Treatment Upcoming Encounters Date Type Department Care Team ([facility] st Contact Info) Description 05/31/2024 11:00 AM EDT Clinical Support [facility] MED & PEDS 505 [place] [address] Fariba Gandhi, HUGO 505 [place] [address] documented as of this encounter Visit Diagnoses Not on filedocumented in this encounter Additional Health Concerns Assessment Noted Time PHQ-9 Depression Total Score: 3 06/04/19 23 3:42 PM EDT documented as of this encounter Care Teams Welder Gas Automatic Relationship Specialty Start Date End Date Carlo Santana MD 505 [place] [address] PCP - General Internal Medicine 12/28/17 documented as of this encounter
--- OUTSIDE RECORDS SUMMARY | 2024-04-11 13:37 | XMS_ITS | Encounter Summary ---
Author Organization [employer] Address 75 [facility] 7 [place] [address] Care Team Providers Care Cementer Oil Well Name Role Phone Carlo Santana MD Primary Care Provider +1- [phone] Reason for Visit * Reason Onset Date Comments Call Back Request 10/13/2023 Encounter Details Date Type Department Care Team ([facility] st Contact Info) Description 10/13/2023 Telephone [facility] MEDICINE 230 [place] [address] Carlo Santana MD [address] [place], [place] [phone] Call Back Request Social History Tobacco Use [...] pt requesting a call back in regards MARKETING AUTOMATION SPECIALIST appt. No further details provided. documented in this encounter Plan of Treatment Upcoming Encounters Date Type Department Care Team (Late st Contact Info) Description 05/31/2024 11:00 AM EDT Clinical Support [facility] CH[facility] MED & PEDS 505 [place] [address] Fariba Gnadhi, HUGO 505 [place] [address] documented as of this encounter Visit Diagnoses Not on filedocumented in this encounter Additional Health Concerns Assessment Noted Time PHQ-9 Depression Total Score: 3 06/04/19 23 3:42 PM EDT documented as of this encounter Care Teams Cementer Oil Well Relationship Specialty Start Date End Date Carlo Santana MD 505 [place] [address] PCP - General Internal Medicine 12/28/17 documented as of this encounter
--- OUTSIDE RECORDS SUMMARY | 2024-04-11 13:37 | XMS_ITS | Encounter Summary ---
Author Organization [employer] Address [address] [place] [address] Care Team Providers Care Card Doffer Name Role Phone Carlo Santana MD Primary Care Provider +1- [phone] Reason for Visit * Reason Comments Med Refill Encounter Details Date Type Department Care Team (Late Contact Info) Description 05/19/2022 Refill [facility] MED & PEDS 505 [place] [address] Servando Howard MD 505 [place] [address] Chronic left-sided low back pain with left-sided [facility] 505 [place] [address] Fariba Gandhi RN 505 [place], [place] [phone] documented as of this encounter Visit Diagnoses Diagnosis Chronic left-sided low back pain with left-sided sciatica documented in this encounter Care Teams Card Doffer Relationship Specialty Start Date End Date Carlo Santana MD [address] [place] [address] PCP - General Internal Medicine 12/28/17 documented as of this encounter
--- OUTSIDE RECORDS SUMMARY | 2024-04-11 13:37 | XMS_ITS | Encounter Summary ---
Author Organization [employer] Address [address] [place] [address] 7 [place] [address] Care Team Providers Care Spanner Operator Name Role Phone Carlo Santana MD Primary Care Provider +1- [phone] Reason for Visit * Reason Onset Date Comments Nurse Triage 12/20/2023 Encounter Details Date Type Department Care Team ([facility] st Contact Info) Description 12/20/2023 Telephone [facility] CH[facility] MED & PEDS 505 [place] [address] Carlo Santana MD 505 [place] [address] Nurse Triage Social History Tobacco Use Types [...] is requesting an urgentappointment. Contact pt at [phone] documented in this encounter Plan of Treatment Upcoming Encounters Date Type Department Care Team (Late st Contact Info) Description 05/31/2024 11:00 AM EDT Clinical Support [facility] MED & PEDS 505 [place] [address] Fariba Gandhi, HUGO 505 [place] [address] documented as of this encounter Visit Diagnoses Not on filedocumented in this encounter Additional Health Concerns Assessment Noted Time PHQ-9 Depression Total Score: 3 06/04/19 23 3:42 PM EDT documented as of this encounter Care Teams Spanner Operator Relationship Specialty Start Date End Date Carlo Santana MD 505 [place] [address] PCP - General Internal Medicine 12/28/17 documented as of this encounter
--- OUTSIDE RECORDS SUMMARY | 2024-04-11 13:37 | XMS_ITS | Encounter Summary ---
Author Organization [employer] Address [address] [place] [address] 7 [place] [address] Care Team Providers Care Pharmacist Helper Name Role Phone Carlo Santana MD Primary Care Provider +1- [phone] Encounter Details Date Type Department Care Team ([facility] st Contact Info) Description 05/02/2023 Orders Only [facility] CH[facility] MED & PEDS 505 [place], [place] [phone] Carlo Santana MD 505 [place], [place] [phone] New daily persistent headache (Primary Dx) Social [...] Upcoming Encounters Date Type Department Care Team ([facility] st Contact Info) Description 05/31/2024 11:00 AM EDT Clinical Support [facility] MED & PEDS 505 [place] [address] Fariba Gandhi, RN 505 [place] [address] documented as of this encounter Procedures Procedure [...] EST Narrative 05/23/2023 11:39 AM EDT ? [facility] ?[address] ?[place] [address] ? Magnetic Resonance Report ? Signed ? Patient: Du,Peri Vera ?MR#: [id number] ?? [id number] ? : 1980 ?Acct:[id number] ? Age/Sex: 42 / F ?ADM Date: 03/06/24 ? Loc: HO.MRI ? Attending Dr: Karl VICTOR ? Ordering Physician: Karl Meade ?? Date of Service: 05/18/23 ?? Procedure(s): MR lumbar spine wo con ?? Accession Number(s): [id number] ? cc: Carlo Santana MD; Karl Meade [...] compression fractures. ? DISC SPACES AND ENDPLATES: Eivtidye-on-hpjgli intervertebral disc space ?? height loss asymmetric to the left at L4-L5 with disc desiccation ?? stable in appearance. Rvhi-fp-fyrnyqgz disc volume loss at L3-L4 ?? asymmetric to the left, slightly progressed from previous exam with a ?? stable small Schmorl's node along the superior endplate of L4 on the ?? left. Minor spondylosis is unchanged. Mild disc volume loss at L2-L3 ?? with disc desiccation is stable. Adanjkul-tj-hvmupb intervertebral disc ?? space height loss asymmetric [...] ?? study. No significant central canal stenosis. Fght-oj-nbbgfwoq ?? bilateral facet joint arthropathy is stable [...] exam. Within the pelvis on ?? the mastic sprayer view, there is a 5.5 cm cystic structure in the expected ?? location of the right adnexa, similar in appearance to the previous ?? study, based on evaluation of the mastic sprayer view. ? MR/MR lumbar spine wo con [...] roots bilaterally progressed from previous study. ?? Lddwbulv-jr-igizqe left and mzzk-zq-omajluru right-sided neural ?? foraminal stenosis at L3-L4, [...] of the right ?? adnexa on the mastic sprayer view similar to the previous study. As [...] 1135 ? DD/ 2007 ? TD/TT: ? Preschool Teacher Aide: ? Procedure Note Wilfredo, Image - 05/23/2023 [place] [address] Magnetic Resonance Report Signed Patient: Peri Sandy MMR#: [id number] : 1980Acct:[id number] Age/Sex: 42 / FADM Date: 05/18/23 Loc: HO.MRI Attending Dr: Karl VICTOR Ordering Physician: Karl Meade Date of Service: 05/18/23 Procedure(s): MR lumbar spine wo con Accession Number(s): [id number] cc: Carlo Santana MD; Karl Meade EXAMINATION: [...] interval compression fractures. DISC SPACES AND ENDPLATES: Rhobshde-uq-ovybpc intervertebral disc space height loss asymmetric to the left at L4-L5 with disc desiccation stable in appearance. Qcbd-oc-hqalibvz disc volume loss at L3-L4 asymmetric to the left, slightly progressed from previous exam with a stable small Schmorl's node along the superior endplate of L4 on the left. Minor spondylosis is unchanged. Mild disc volume loss at L2-L3 with disc desiccation is stable. Hfvclyjn-lg-vfkhjs intervertebral disc space height loss asymmetric to [...] previous study. No significant central canal stenosis. Dgxk-kf-mrmlwaso bilateral facet joint arthropathy is stable with [...] the exam. Within the pelvis on the mastic sprayer view, there is a 5.5 cm cystic structure in the expected location of the right adnexa, similar in appearance to the previous study, based on evaluation of the mastic sprayer view. MR/MR lumbar spine wo con IMPRESSION: [...] nerve roots bilaterally progressed from previous study. Ligjnmah-hr-oaiowe left and vhaz-dk-jpouztqy right-sided neural foraminal stenosis at L3-L4, similar [...] location of the right adnexa on the mastic sprayer view similar to the previous study. As noted on the previous study, this likely reflects a physiologic right ovarian cyst but is not definitely characterized as simple-appearing based on this study and therefore follow up ultrasound may be indicated. Dictated By: JOVANY BARROS MD Signed By: <Electronically signed by JOVANY BARROS MD in OV> 05/23/23 1135 DD/ 06 TD/TT: Preschool Teacher Aide: us [facility] External Provider IMG MRI PROCEDURES Final Result * US RETROPERITONEAL LIMITED (05/17/2023 3:44 PM EST) Anatomical Region Laterality Modality Abdomen Ultrasound 05/17/2023 3:44 PM EST Narrative 05/19/2023 7:57 PM EST ? [place] [facility] ?[address] ?[place] [address] ? Ultrasound Report ? Signed ? Patient: Du,Peri M ?MR#: [id number] ?? [id number] ? : 1980 ?Acct:[id number] ? Age/Sex: 42 / F ?ADM Date: 05/17/23 ? Loc: HO.US ? Attending Dr: Luis Manuel Singh MD ? Ordering Physician: Luis Manuel Singh MD ?? Date of Service: 05/17/23 ?? Procedure(s): US retroperitoneal limited ?? Accession Number(s): [id number] ? cc: Luis Manuel Singh MD; Carlo [...] ?05/19/233 ? DD/ 1544 ? TD/TT: ? Preschool Teacher Aide: ? Procedure Note Geovanny Villalobos - 05/19/[address] [address] Ultrasound Report Signed Patient: Peri Sandy MMR#: [id number] : 1980Acct:[id number] Age/Sex: 42 / FADM Date: 05/17/23 Loc: HO.US Attending Dr: Luis Manuel Singh MD Ordering Physician: Luis Manuel Singh MD Date of Service: 05/17/23 Procedure(s): US retroperitoneal limited Accession Number(s): [id number] cc: Luis Manuel Singh MD; Carlo Santana [...] MD in OV> 05/19/231952 DD/ 1544 TD/TT: Preschool Teacher Aide: [facility] External Provider IMG US PROCEDURES Final Result documented in this encounter Visit Diagnoses Diagnosis New daily persistent headache- Primary documented in this encounter Additional Health Concerns Assessment Noted Time PHQ-9 Depression Total Score: 3 06/04/19 23 3:42 PM EDT documented as of this encounter Care Teams Pharmacist Helper Relationship Specialty Start Date End Date Carlo Santana MD [address] [place] [address] PCP - General Internal Medicine 12/28/17 documented as of this encounter
--- OUTSIDE RECORDS SUMMARY | 2024-04-11 13:37 | XMS_ITS | Encounter Summary ---
Author Organization [employer] Address [address] [place] [address] 7 [place] [address] Care Team Providers Care Tray Worker Name Role Phone Carlo Santana MD Primary Care Provider +1- [phone] Reason for Visit * Reason Comments Med Refill Encounter Details Date Type Department Care Team ([facility] Contact Info) Description 06/20/2022 Refill [facility] MED & PEDS 505 [place] [address] Servando Howard MD 505 [place] [address] Social History Tobacco Use Types Packs/Day Years [...] [facility] MED & PEDS 505 [place] [address] Fariba Gandhi, HUGO 505 [place] [address] documented as of this encounter Visit Diagnoses Not on filedocumented in this encounter Additional Health Concerns Assessment Noted Time PHQ-9 Depression Total Score: 3 06/04/19 23 3:42 PM EDT documented as of this encounter Care Teams Tray Worker Relationship Specialty Start Date End Date Carlo Santana MD 505 [place] [address] PCP - General Internal Medicine 12/28/17 documented as of this encounter
--- OUTSIDE RECORDS SUMMARY | 2024-04-11 13:37 | XMS_ITS | Encounter Summary ---
Author Organization [employer] Address [address] [facility] 7t [place] [address] Care Team Providers Care Jalousie Installer Name Role Phone Carlo Santana MD Primary Care Provider +1- [phone] Reason for Visit * Reason Comments Med Change Request Encounter Details Date Type Department Care Team ([facility] st Contact Info) Description 12/20/2023 Refill [facility] [address] [place] [address] Carlo Santana MD [address] [facility] [address] [place], [place] [phone] Hypoproteinemia (CMS/HCC) Social History Tobacco Use Types [...] Upcoming Encounters Date Type Department Care Team ([facility] st Contact Info) Description 05/31/2024 11:00 AM EDT Clinical Support [facility] MED & PEDS 505 [place] [address] Fariba Gandhi RN 505 [place] [address] documented as of this encounter Visit Diagnoses Diagnosis Hypoproteinemia (CMS/HCC) Other disorders of plasma protein metabolism documented in this encounter Additional Health Concerns Assessment Noted Time PHQ-9 Depression Total Score: 3 06/04/19 23 3:42 PM EDT documented as of this encounter Care Teams Jalousie Installer Relationship Specialty Start Date End Date Carlo Santana MD 505 [place] [address] PCP - General Internal Medicine 12/28/17 documented as of this encounter
--- OUTSIDE RECORDS SUMMARY | 2024-04-11 13:37 | XMS_ITS | Encounter Summary ---
Author Organization [employer] Address [address] [place] [address] 7 [place] [address] Care Team Providers Care Medical Office Receptionist Assistant Name Role Phone Carlo Santana MD Primary Care Provider +1- [phone] Reason for Visit * Reason Onset Date Comments Med Refill 09/16/2022 Encounter Details Date Type Department Care Team ([facility] st Contact Info) Description 09/16/2022 Telephone [facility] MED & PEDS [address] [place] [address] Carlo Santana MD 505 [place] [address] Med Refill Social History Tobacco Use Types [...] [facility] 505 [place] [address] Fariba Gandhi, HUGO 505 [place] [address] documented as of this encounter Visit Diagnoses Not on filedocumented in this encounter Additional Health Concerns Assessment Noted Time PHQ-9 Depression Total Score: 3 06/04/19 23 3:42 PM EDT documented as of this encounter Care Teams Medical Office Receptionist Assistant Relationship Specialty Start Date End Date Carlo Santana MD 505 [place] [address] PCP - General Internal Medicine 12/28/17 documented as of this encounter
--- OUTSIDE RECORDS SUMMARY | 2024-04-11 13:37 | XMS_ITS | Encounter Summary ---
Author Organization [employer] Address [address] [facility] 7 [place] [address] Care Team Providers Care Public Safety Teacher Name Role Phone Carlo Santana MD Primary Care Provider +1- [phone] Reason for Visit * Reason Onset Date Comments Med Refill 12/05/2023 Encounter Details Date Type Department Care Team (Late st Contact Info) Description 12/05/2023 Telephone [facility] MED[facility] 230 [place] [address] Carlo Santana MD 505 [place], [place] [phone] Med Refill Social History Tobacco Use Types [...] Upcoming Encounters Date Type Department Care Team ([facility] st Contact Info) Description 05/31/2024 11:00 AM EDT Clinical Support [facility] MED & PEDS 505 [place] [address] Fariba Gandhi RN 505 [place] [address] documented as of this encounter Visit Diagnoses Not on filedocumented in this encounter Additional Health Concerns Assessment Noted Time PHQ-9 Depression Total Score: 3 06/04/19 23 3:42 PM EDT documented as of this encounter Care Teams Public Safety Teacher Relationship Specialty Start Date End Date Carlo Santana MD 505 [place] [address] PCP - General Internal Medicine 12/28/17 documented as of this encounter
--- OUTSIDE RECORDS SUMMARY | 2024-04-11 13:37 | XMS_ITS | Encounter Summary ---
Author Organization [employer] Address [address] [place] [address] 7 [place] [address] Care Team Providers Care Dairy Machine Operator Farmworker Name Role Phone Carlo Santana MD Primary Care Provider +1- [phone] Reason for Visit * Reason Comments Med Refill Encounter Details Date Type Department Care Team ([facility] Contact Info) Description 12/19/2023 Refill [facility] MED & PEDS [address] [place] [address] Carlo Santana MD 505 [place] [address] Diarrhea, unspecified type Social History Tobacco Use [...] [facility] [address] [place] [address] Fariba Gandhi, HUGO 505 [place] [address] documented as of this encounter Visit Diagnoses Diagnosis Diarrhea, unspecified type documented in this encounter Additional Health Concerns Assessment Noted Time PHQ-9 Depression Total Score: 3 06/04/19 23 3:42 PM EDT documented as of this encounter Care Teams Dairy Machine Operator Farmworker Relationship Specialty Start Date End Date Carlo Santana MD 505 [place] [address] PCP - General Internal Medicine 12/28/17 documented as of this encounter
--- OUTSIDE RECORDS SUMMARY | 2024-04-11 13:37 | XMS_ITS | Encounter Summary ---
Author Organization [email or web address] Address [address] [facility] 7 [place] [address] Care Team Providers Care Water Purifier Name Role Phone Carlo Santana MD Primary Care Provider +1- [phone] Reason for Visit * Reason Onset Date Comments Referral 12/01/2023 Encounter Details Date Type Department Care Team (Late st Contact Info) Description 12/01/2023 Telephone [facility] [address] [place] [address] Carlo Santana MD [address] [facility] [address] [place], [place] [phone] Referral Social History Tobacco Use Types Packs/Day [...] Tc from pt requesting a referral to [facility]. Stated not satisfied with [facility]. Specialty: [facility] Behavioral Health - Adult Outpatient Address: [address] [place] [address] If any questions contact pt at [phone] * Telephone Encounter - Angel Luis Oreilly - 12/01/2023 10:34 AM EDT Tc from patient calling to request a referral for a therapist states has been waiting for a call back from [facility] and has not heard a response documented in this encounter Plan of Treatment Upcoming Encounters Date Type Department Care Team (Late st Contact Info) Description 05/31/2024 11:00 AM EDT Clinical Support [facility] MED & PEDS 505 [place] [address] Fariba Gandhi, HUGO 505 [place] [address] documented as of this encounter Visit Diagnoses Not on filedocumented in this encounter Additional Health Concerns Assessment Noted Time PHQ-9 Depression Total Score: 3 06/04/19 3:42 PM EDT documented as of this encounter Care Teams Water Purifier Relationship Specialty Start Date End Date Carlo Santana MD [address] [place] [address] PCP - General Internal Medicine 12/28/17 documented as of this encounter
--- OUTSIDE RECORDS SUMMARY | 2024-04-11 13:37 | XMS_ITS | Encounter Summary ---
Author Organization [employer] Address [address] [place] [address] 7 [place] [address] Care Team Providers Care Pharmacy Customer Care Specialist Name Role Phone Carlo Santana MD Primary Care Provider +1- [phone] Reason for Visit * Reason Onset Date Comments Med Refill 04/09/2024 Encounter Details Date Type Department Care Team ([facility] st Contact Info) Description 04/09/2024 Refill [facility] MED & PEDS 505 [place] [address] Carlo Santana MD 505 [place] [address] Chronic left-sided low back pain with left-sided [...] * Telephone Encounter - Maddie Han - 04/09/2024 1:23 PM EST TC from pt requesting medication refill. Medications needing refill : oxyCODONE (Roxicodone) 10 MG immediate release tablet To be sent to: [facility]/pharmacy #[id number] - [place] - [address] [facility] documented in this encounter Plan of Treatment Upcoming Encounters Date Type Department Care Team ([facility] st Contact Info) Description 05/31/2024 11:00 AM EDT Clinical Support [facility] MED & PEDS 505 [place] [address] Fariba Gandhi, HUGO 505 [place] [address] documented as of this encounter Visit Diagnoses Diagnosis Chronic left-sided low back pain with left-sided sciatica documented in this encounter Additional Health Concerns Assessment Noted Time PHQ-9 Depression Total Score: 15 024 11:50 AM EST documented as of this encounter Care Teams Pharmacy Customer Care Specialist Relationship Specialty Start Date End Date Carlo Santana MD [address] [place] [address] PCP - General Internal Medicine 12/28/17 documented as of this encounter
--- OUTSIDE RECORDS SUMMARY | 2024-04-11 13:37 | XMS_ITS | Encounter Summary ---
Author Organization [employer] Address [address] [place] [address] 7 [place] [address] Care Team Providers Care Fiscal Clerk Name Role Phone Carlo Santana MD Primary Care Provider +1- [phone] Reason for Visit * Reason Comments Med Change Request Encounter Details Date Type Department Care Team ([facility] Contact Info) Description 06/21/2022 Refill [facility] MED & PEDS [address] [place] [address] Carlo Santana MD 505 [place] [address] Chronic left-sided low back pain with left-sided [...] [facility] 505 [place] [address] Fariba Gandhi, RN 505 [place] [address] documented as of this encounter Visit Diagnoses Diagnosis Chronic left-sided low back pain with left-sided sciatica documented in this encounter Additional Health Concerns Assessment Noted Time PHQ-9 Depression Total Score: 3 06/04/19 23 3:42 PM EDT documented as of this encounter Care Teams Fiscal Clerk Relationship Specialty Start Date End Date Carlo Santana MD 505 [place] [address] PCP - General Internal Medicine 12/28/17 documented as of this encounter
--- OUTSIDE RECORDS SUMMARY | 2024-04-11 13:37 | XMS_ITS | Encounter Summary ---
Author Organization [employer] Address [address] [facility] 7 [place] [address] Care Team Providers Care Sugar Coating Hand Name Role Phone Carlo Santana MD Primary Care Provider +1- [phone] Reason for Visit * Reason Onset Date Comments Referral 12/20/2023 Encounter Details Date Type Department Care Team (Late st Contact Info) Description 12/20/2023 Telephone [facility] MEDICINE 230 [place] [address] Carlo Santana MD [address] [facility] [address] [place], [place] [phone] Referral Social History Tobacco Use Types Packs/Day [...] Referral re-faxed today to their office at [phone], Attn: Aundrea. * Telephone Encounter - Braden Cool - 12/20/2023 4:09 PM EDT Tc from pt requesting for referral [facility] to be updated , states facility will not accept insurance due to not having a begin and end date, pt stated they are scheduled for 12/27/23 @. Please contact at [phone] documented in this encounter Plan of Treatment Upcoming Encounters Date Type Department Care Team ([facility] st Contact Info) Description 05/31/2024 11:00 AM EDT Clinical Support [facility] MED & PEDS 505 [place] [address] Fariba Gandhi, HUGO 505 [place] [address] documented as of this encounter Visit Diagnoses Not on filedocumented in this encounter Additional Health Concerns Assessment Noted Time PHQ-9 Depression Total Score: 3 06/04/19 23 3:42 PM EDT documented as of this encounter Care Teams Sugar Coating Hand Relationship Specialty Start Date End Date Carlo Santana MD 505 [facility] [place] [address] PCP - General Internal Medicine 12/28/17 documented as of this encounter
--- OUTSIDE RECORDS SUMMARY | 2024-04-11 13:37 | XMS_ITS | Encounter Summary ---
Author Organization [employer] Address [address] [place] [address] Care Team Providers Care Tier Truck Driver Name Role Phone Carlo Santana MD Primary Care Provider +1- [phone] Reason for Visit * Reason Onset Date Comments Med Refill 10/28/2022 Encounter Details Date Type Department Care Team ([facility] st Contact Info) Description 10/28/2022 Telephone [facility] MED [facility] PEDS 505 [place] [address] Carlo Santana MD 505 [place] [address] Med Refill Social History Tobacco Use Types [...] [facility] MED & PEDS 505 [place] [address] Fariba Gandhi, RN 505 [place] [address] documented as of this encounter Visit Diagnoses Not on filedocumented in this encounter Additional Health Concerns Assessment Noted Time PHQ-9 Depression Total Score: 3 06/04/19 23 3:42 PM EDT documented as of this encounter Care Teams Tier Truck Driver Relationship Specialty Start Date End Date Carlo Santana MD 505 [place] [address] PCP - General Internal Medicine 12/28/17 documented as of this encounter
--- OUTSIDE RECORDS SUMMARY | 2024-04-11 13:37 | XMS_ITS | Encounter Summary ---
Author Organization [employer] Address [address] [place] [address] Care Team Providers Care Lawn Care Specialist Name Role Phone Carlo Santana MD Primary Care Provider +1- [phone] Reason for Visit * Reason Comments Med Refill Encounter Details Date Type Department Care Team (Late Contact Info) Description 05/06/2022 Refill [facility] MED & PEDS 505 [place] [address] Servando Howard MD 505 [place] [address] Chronic left-sided low back pain with left-sided [...] [facility] MED & PEDS 505 [place] [address] Fariba Gandhi RN 505 [place], [place] [phone] documented as of this encounter Visit Diagnoses Diagnosis Chronic left-sided low back pain with left-sided sciatica documented in this encounter Care Teams Lawn Care Specialist Relationship Specialty Start Date End Date Carlo Santana MD [address] [place] [address] PCP - General Internal Medicine 12/28/17 documented as of this encounter
--- OUTSIDE RECORDS SUMMARY | 2024-04-11 13:37 | XMS_ITS | Encounter Summary ---
Author Organization [employer] Address [address] [facility] 7 [place] [address] Care Team Providers Care Ed Tech Name Role Phone Carlo Santana MD Primary Care Provider +1- [phone] Reason for Visit * Reason Onset Date Comments Med Refill 05/04/2023 Encounter Details Date Type Department Care Team ([facility] st Contact Info) Description 05/04/2023 Telephone [facility] MEDICINE 230 [place] [address] Carlo Santana MD [address] [facility] [address] [place], [place] [phone] Med Refill Social History Tobacco Use Types [...] 200 MG capsule To be sent to: [facility]/pharmacy #[id number] [place] - [address] [facility] documented in this encounter Plan of Treatment Upcoming Encounters Date Type Department Care Team (Late st Contact Info) Description 05/31/2024 11:00 AM EDT Clinical Support [facility] MED & PEDS 505 [place] [address] Fariba Gandhi, HUGO 505 [place] [address] documented as of this encounter Visit Diagnoses Not on filedocumented in this encounter Additional Health Concerns Assessment Noted Time PHQ-9 Depression Total Score: 3 06/04/19 23 3:42 PM EDT documented as of this encounter Care Teams Ed Tech Relationship Specialty Start Date End Date Carlo Santana MD 505 [place] [address] PCP - General Internal Medicine 12/28/17 documented as of this encounter
--- OUTSIDE RECORDS SUMMARY | 2024-04-11 13:37 | XMS_ITS | Encounter Summary ---
Author Organization [employer] Address [address] [place] [address] 7 [place] [address] Care Team Providers Care Inshore Undersea Warfare Officer Name Role Phone Carlo Santana MD Primary Care Provider +1- [phone] Reason for Visit * Reason Onset Date Comments Appointment Request 11/08/2023 Encounter Details Date Type Department Care Team ([facility] st Contact Info) Description 11/08/2023 Telephone [facility] MED & PEDS [address] [place] [address] Carlo Santana MD 505 [place] [address] Appointment Request Social History Tobacco Use Types [...] Upcoming Encounters Date Type Department Care Team ([facility] st Contact Info) Description 05/31/2024 11:00 AM EDT Clinical Support [facility] MED & PEDS 505 [place] [address] Fariba Gandhi RN 505 [place] [address] documented as of this encounter Visit Diagnoses Not on filedocumented in this encounter Additional Health Concerns Assessment Noted Time PHQ-9 Depression Total Score: 3 06/04/19 23 3:42 PM EDT documented as of this encounter Care Teams Inshore Undersea Warfare Officer Relationship Specialty Start Date End Date Carlo Santana MD [address] [place] [address] PCP - General Internal Medicine 12/28/17 documented as of this encounter
--- OUTSIDE RECORDS SUMMARY | 2024-04-11 13:37 | XMS_ITS | Encounter Summary ---
Author Organization [employer] Address [address] [place] [address] 7 [place] [address] Care Team Providers Care Regional Economic Liaison Name Role Phone Carlo Santnaa MD Primary Care Provider +1- [phone] Reason for Visit * Reason Comments Follow-up Encounter Details Date Type Department Care Team ([facility] Contact Info) Description 04/09/2024 11:00 AM EST Office Visit [facility] MED & PEDS [address] [place] [address] Carlo Santana MD 505 [place] [address] Diarrhea, unspecified type (Primary Dx); Muscle spasm; Lumbar radiculopathy; VALENTINA (generalized anxiety disorder) Social History Tobacco [...] Mass Index 24.87 04/09/2024 10:37 AM EST documented in this encounter Progress Notes * Carlo Santana MD - 04/09/2024 11:00 AM EST Subjective Patient ID: Peri Sandy is a 43 y.o. female who presents for No chief complaint on file.. HPI Patient with history of chronic diarrhea here for follow-up. Had a CT scan of the abdomen ordered by gastroenterology showing postsurgical changes involving the stomach and proximal small bowel. Otherwise unremarkable CT enterography. Patient reports she is still having diarrhea which is triggered by eating. She is currently receiving a protein supplement that she is using faithfully. Also complaining of chronic low back pain partially alleviated by her chronic opioid treatment and the use of lidocaine patches. She reports having tingling and throbbing pain of the upper extremities bilaterally. Patient Active Problem List Diagnosis Chronic right-sided [...] Depressive disorder Hidradenitis suppurativa Preop cardiovascular exam Lumbar radiculopathy Current Outpatient Medications on File Prior to Visit Medication Sig Dispense Refill acetaminophen (Tylenol) 325 MG tablet Take 2 tablets (650 mg) by mouth every 6 (six) hours if needed for mild pain. 84 tablet 0 amLODIPine (Norvasc) 5 MG tablet TAKE 1 TABLET BY MOUTH EVERY MORNING 90 tablet 2 ARIPiprazole (Abilify) 2 MG tablet Take 2 mg by mouth Once per day. celecoxib (CeleBREX) 200 MG capsule TAKE 1 CAPSULE BY MOUTH IN THE MORNING AND AT BEDTIME NEEDEDFOR MODERATE PAIN 60 capsule 0 cetirizine (ZyrTEC) 10 MG tablet TAKE 1 TABLET BY MOUTH EVERY DAY IN THE MORNING 90 tablet 3 D3-1000 25 MCG (1000 UT) capsule Take [...] OR DIRECTED BY MD. 30 patch 1 lidocaine (Xylocaine) 5 % ointment APPLY 5 GRAMS TO AFFECTED AREA 4 TIMES A DAY NEEDED FOR MILD PAIN 240 g 0 methocarbamol (Robaxin) 500 MG tablet Take 1 tablet (500 mg) by mouth 4 times daily. 30 tablet 0 naloxone (Narcan) 4 mg/0.1 mL nasal spray Administer 0.1 mL into affected nostril(s). [place] 0.1 milliliter by intranasal route in 1 [...] NOTCRUSH, CHEW, OR SPLIT 30 tablet 2 oxyCODONE (Roxicodone) 10 MG immediate release tablet Take 1 tablet (10 mg) by mouth every 8 (eight) hours if needed for severe pain for up to 28 days. 84 tablet 0 oxyCODONE-acetaminophen (Percocet) 7.5-325 MG tablet Take 1 [...] IN THE EVENING. 60 capsule 1 [DISCONTINUED] clonazePAM (KlonoPIN) 1 MG tablet Take 1 tablet (1 mg) by mouth if needed each day for anxiety. 30 tablet 0 No current facility-administered medications on file prior to visit. Allergies Allergen Reactions Cyclobenzaprine Other reaction(s): ? reaction Review of Systems Constitutional: Negative for appetite change, chills and diaphoresis. Eyes: Negative for photophobia, pain and redness. Respiratory: Negative for cough and choking. Gastrointestinal: Positive for diarrhea. Musculoskeletal: Positive for arthralgias and back pain. Objective BP 116/80 (BP Location: Right arm, Patient Position: Sitting, BP Cuff Size: Adult) Pulse 78 Temp 98.4 ??F (36.9 ??C) (Oral) Resp 20 Ht 5' 3 (1.6 m) Wt 140 lb 6.4 oz (63.7 kg) SpO2 98% BMI 24.87 kg/m?? Physical Exam Constitutional: General: She is not in acute distress. Appearance: Normal appearance. She is obese. She is not ill-appearing, toxic- appearing or diaphoretic. Neurological: Mental Status: She is alert. Assessment/Plan documented in this encounter Plan of Treatment Upcoming Encounters Date Type Department Care Team (Late st Contact Info) Description 05/31/2024 11:00 AM EDT Clinical Support [facility] MED & PEDS 505 [place] [address] Fariba Gandhi RN 505 [place], [place] [phone] Scheduled Orders Name Type Priority Associated Diagnoses Orde r Schedule CBC auto differential Lab Routine Lumbar radiculopathy Expected: 04/09/2024 (Approximate), Expires: 04/09/2025 Magnesium Lab Routine Lumbar radiculopathy Expected: 04/09/2024, Expires: 04/09/2025 Vitamin B12/Folate, Serum Panel Lab Routine Lumbar radiculopathy Expected: 04/09/2024, Expires: 04/09/2025 documented as of this encounter Visit Diagnoses Diagnosis Diarrhea, unspecified type- Primary Muscle spasm Spasm of muscle Lumbar radiculopathy Thoracic or lumbosacral neuritis or radiculitis, unspecified [place] (generalized anxiety disorder) Generalized anxiety disorder documented in this encounter Additional Health Concerns Assessment Noted Time PHQ-9 Depression Total Score: 15 024 11:50 AM EST documented as of this encounter Care Teams Regional Economic Liaison Relationship Specialty Start Date End Date Carlo Santana MD 505 [place] [address] PCP - General Internal Medicine 12/28/17 documented as of this encounter
--- OUTSIDE RECORDS SUMMARY | 2024-04-11 13:37 | XMS_ITS | Encounter Summary ---
Author Organization [employer] Address [address] [place] [address] 7 [place] [address] Care Team Providers Care Chairperson Anesthesiology Name Role Phone Carlo Santana MD Primary Care Provider +1- [phone] Encounter Details Date Type Department Care Team ([facility] st Contact Info) Description 12/21/2023 Orders Only [facility] MED & PEDS 505 [place], [place] [phone] Carlo Santana MD 505 [place], [place] [phone] Hypoproteinemia (CMS/HCC) (Primary Dx); Diarrhea, unspecified type [...] [facility] MED & PEDS 505 [place] [address] Fariba Gandhi RN 505 [place] [address] documented as of this encounter Procedures Procedure Name Priority Date/Time Associated Diagnosis Comments GASTROINTESTINAL PANEL Routine 5:33 PM EDT Diarrhea, unspecified type documented in this encounter Results * Gastrointestinal panel (aka ova & parasites) (12/24/2023 5:33 PM EDT) Campylobacter Not Detected Not Detect. [facility] Plesiomonas shigelloides Not Detected Not Detect. [facility] Salmonella Not Detected Not Detect. [facility] Vibrio Not Detected Not Detect. [facility] Vibrio cholerae Not Detected Not Detect. [facility] YERSINIA ENTEROCOLITICA Not Detected Not Detect. [facility] Enteroaggregative E. coli (EAEC) Not Detected Not Detect. [facility] Enteropathogenic E. coli (EPEC) Not Detected Not Detect. [facility] Enterotoxigenic E. coli (ETEC) lt/st Not Detected Not Detect. [facility] Shiga-like toxin-producing E. coli (STEC) stx1/stx2 Not Detected Not Detect. [facility] E coli O157 Not applicable Not Detect. [facility] Comment:E. coli containing t he O157 antigen are a subset ofShiga-like toxin- producing E. coli (STEC). Shigella/Enteroinvasive E. coli (EIEC) Not Detected Not Detect. [facility] Cryptosporidium Not Detected Not Detect. [facility] Cyclospora cayetanensis Not Detected Not Detect. [facility] Entamoeba histolytica Not Detected Not Detect. [facility] Giardia lamblia Not Detected Not Detect. [facility] Adenovirus F 40/41 Not Detected Not Detect. [facility] Astrovirus Not Detected Not Detect. [facility] Norovirus GI/GII Not Detected Not Detect. [facility] Rotavirus A Not Detected Not Detect. [facility] Sapovirus Not Detected Not Detect. [facility] Comment: All results must be correlated [...] assay is performed by Multiplexed PCR, utilizing [employer] Array. Stool Rectal contents / Unknown 12/24/2023 5:33 PM EDT 12/27/2023 12:21 PM EDT Carlo Santana MD LAB MICROBIOLOGY - GENERAL ORDERABLES Final Result [facility] [address] [place] [address] [phone] documented in this encounter Visit Diagnoses Diagnosis Hypoproteinemia (CMS/HCC)- Primary Other disorders of plasma protein metabolism Diarrhea, unspecified type documented in this encounter Additional Health Concerns Assessment Noted Time PHQ-9 Depression Total Score: 3 06/04/19 23 3:42 PM EDT documented as of this encounter Care Teams Chairperson Anesthesiology Relationship Specialty Start Date End Date Carlo Santana MD [address] [place] [address] PCP - General Internal Medicine 12/28/17 documented as of this encounter
--- OUTSIDE RECORDS SUMMARY | 2024-04-11 13:37 | XMS_ITS | Encounter Summary ---
Author Organization [employer] Address [address] [facility] [address] [place] [address] Care Team Providers Care Immigration Services Officer Name Role Phone Carlo Santana MD Primary Care Provider +1- [phone] Encounter Details Date Type Department Care Team (Late st Contact Info) Description 06/09/[address] [facility] MEDICINE [address] [place] [address] Carlo Santana MD [address] [facility] [address] [place], [place] [phone] Social History Tobacco Use Types Packs/Day Years [...] [facility] MED & PEDS 505 [place] [address] Fariba Gandhi, RN 505 [place] [address] documented as of this encounter Visit Diagnoses Not on filedocumented in this encounter Additional Health Concerns Assessment Noted Time PHQ-9 Depression Total Score: 3 06/04/19 23 3:42 PM EDT documented as of this encounter Care Teams Immigration Services Officer Relationship Specialty Start Date End Date Carlo Santana MD 505 [place] [address] PCP - General Internal Medicine 12/28/17 documented as of this encounter
--- OUTSIDE RECORDS SUMMARY | 2024-04-11 13:38 | XMS_ITS | Encounter Summary ---
Author Organization [employer] Address [address] [place] [address] 7 [place] [address] Care Team Providers Care Wood Lather Name Role Phone Carlo Santana MD Primary Care Provider +1- [phone] Reason for Visit * Reason Onset Date Comments Med Refill 10/18/2022 Encounter Details Date Type Department Care Team ([facility] st Contact Info) Description 10/18/2022 Telephone [facility] CH[facility] MED & PEDS 505 [place] [address] Carlo Santana MD 505 [place] [address] Med Refill Social History Tobacco Use Types [...] requesting status on script. Please contact at [phone] * Telephone Encounter - Avelina Brown - 10/18/2022 8:27 AM EDT Tc from patient requesting a med refill for medication oxycodone 5 mg. [id number] - LEATHA PHILLIPS - [phone] [facility] PCP Dr. Santana documented in this encounter Plan of Treatment Upcoming Encounters Date Type Department Care Team ([facility] st Contact Info) Description 05/31/2024 11:00 AM EDT Clinical Support [facility] MED & PEDS 505 [place] [address] Fariba Gandhi, RN 505 [place] [address] documented as of this encounter Visit Diagnoses Diagnosis Low back pain radiating down leg documented in this encounter Additional Health Concerns Assessment Noted Time PHQ-9 Depression Total Score: 3 06/04/19 23 3:42 PM EDT documented as of this encounter Care Teams Wood Lather Relationship Specialty Start Date End Date Carlo Santana MD 505 [place] [address] PCP - General Internal Medicine 12/28/17 documented as of this encounter
--- OUTSIDE RECORDS SUMMARY | 2024-04-11 13:38 | XMS_ITS | Encounter Summary ---
Author Organization [employer] Address [address] [facility] 7 [place] [address] Care Team Providers Care Office Cleaner Name Role Phone Carlo Santana MD Primary Care Provider +1- [phone] Reason for Visit * Reason Onset Date Comments Call Back Request 12/19/2023 Encounter Details Date Type Department Care Team ([facility] st Contact Info) Description 12/19/2023 Telephone [facility] MEDICINE 230 [place] [address] Carlo Santana MD [address] [facility] [address] [place], [place] [phone] Call Back Request Social History Tobacco Use [...] [facility] 505 [place] [address] Fariba Gandhi, HUGO 505 [place] [address] documented as of this encounter Visit Diagnoses Not on filedocumented in this encounter Additional Health Concerns Assessment Noted Time PHQ-9 Depression Total Score: 3 06/04/19 23 3:42 PM EDT documented as of this encounter Care Teams Office Cleaner Relationship Specialty Start Date End Date Carlo Santana MD 505 [place] [address] PCP - General Internal Medicine 12/28/17 documented as of this encounter
--- OUTSIDE RECORDS SUMMARY | 2024-04-11 13:38 | XMS_ITS | Encounter Summary ---
Author Organization [employer] Address [address] [facility] 7 [place] [address] Care Team Providers Care Gate Manager Name Role Phone Carlo Santana MD Primary Care Provider +1- [phone] Reason for Visit * Reason Onset Date Comments Appointment Request 12/13/2023 Encounter Details Date Type Department Care Team ([facility] st Contact Info) Description 12/13/2023 Telephone [facility] MEDICINE 230 [place] [address] Carlo Santana MD [address] [facility] [address] [place], [place] [phone] Appointment Request Social History Tobacco Use Types [...] Description 05/31/2024 11:00 AM EDT Clinical Support [facility] CH[facility] MED & PEDS 505 [place] [address] Fariba Gandhi, HUGO 505 [place] [address] documented as of this encounter Visit Diagnoses Not on filedocumented in this encounter Additional Health Concerns Assessment Noted Time PHQ-9 Depression Total Score: 3 06/04/19 23 3:42 PM EDT documented as of this encounter Care Teams Gate Manager Relationship Specialty Start Date End Date Carlo Santana MD 505 [place] [address] PCP - General Internal Medicine 12/28/17 documented as of this encounter
--- OUTSIDE RECORDS SUMMARY | 2024-04-11 13:38 | XMS_ITS | Encounter Summary ---
Author Organization [employer] Address [address] [facility] 7 [place] [address] Care Team Providers Care Library Serials Assistant Name Role Phone Carlo Santana MD Primary Care Provider +1- [phone] Reason for Visit * Reason Onset Date Comments Results 12/19/2023 Encounter Details Date Type Department Care Team (Late st Contact Info) Description 12/19/2023 Telephone [facility] MEDICINE 230 [place] [address] Carlo Santana MD [address] [facility] [address] [place], [place] [phone] Results Social History Tobacco Use Types Packs/Day [...] results: Labs Date when done: 12/15 Facility: [facility] documented in this encounter Plan of Treatment Upcoming Encounters Date Type Department Care Team (Late st Contact Info) Description 05/31/2024 11:00 AM EDT Clinical Support [facility] MED & PEDS 505 [place] [address] Fariba Gandhi RN 505 [place] [address] documented as of this encounter Visit Diagnoses Not on filedocumented in this encounter Additional Health Concerns Assessment Noted Time PHQ-9 Depression Total Score: 3 06/04/19 23 3:42 PM EDT documented as of this encounter Care Teams Library Serials Assistant Relationship Specialty Start Date End Date Carlo Santana MD 505 [place] [address] PCP - General Internal Medicine 12/28/17 documented as of this encounter
--- OUTSIDE RECORDS SUMMARY | 2024-04-11 13:38 | XMS_ITS | Encounter Summary ---
Author Organization [employer] Address [address] [facility] 7 [place] [address] Care Team Providers Care Director Of Therapy Services Name Role Phone Carlo Santana MD Primary Care Provider +1- [phone] Reason for Visit * Reason Onset Date Comments Med Refill 10/14/2022 Encounter Details Date Type Department Care Team (Late st Contact Info) Description 10/14/2022 Telephone [facility] MEDICINE 230 [place] [address] Carlo Santana MD 505 [place], [place] [phone] Med Refill Social History Tobacco Use Types [...] [facility] MED & PEDS 505 [place] [address] Fariba Gandhi RN 505 [place] [address] documented as of this encounter Visit Diagnoses Not on filedocumented in this encounter Additional Health Concerns Assessment Noted Time PHQ-9 Depression Total Score: 3 06/04/19 23 3:42 PM EDT documented as of this encounter Care Teams Director Of Therapy Services Relationship Specialty Start Date End Date Carlo Santana MD 505 [place] [address] PCP - General Internal Medicine 12/28/17 documented as of this encounter
[2024-04-11 14:48] LABS: MANUAL DIFF FLAG NO
[2024-04-11 14:57] LABS: Basophils Absolute Auto 0.1 X10*3/uL (0.0-0.2); Basophils Percent Auto 0.7 % (0-2); Eosinophils Absolute Auto 0.2 X10*3/uL (0.0-0.4); Eosinophils Percent Auto 2.3 % (0-4); Hematocrit 34.3 % (37.0-47.0); Hemoglobin 11.5 g/dl (12.0-16.0); Imm Gran Abs Auto 0.02 X10*3/uL (0.00-0.03); Imm Gran Pct Auto 0.3 % (0.0-0.4); Lymphocytes Absolute Auto 2.1 X10*3/uL (1.2-4.9); Mean Corpuscular HGB Conc 33.5 g/dl (31.0-35.0); Mean Corpuscular Hemoglobin 31.9 pg (27.0-33.0); Mean Platelet Volume 9.3 fL (9.4-12.3); Monocytes Absolute Auto 0.3 X10*3/uL (0.1-1.2); Monocytes Percent Auto 4.7 % (2-11); Neutrophils Absolute Auto 4.4 x10*3/uL (2.0-8.3); Platelet Count 396 X10*3/uL (160-400); Red Blood Count 3.61 X10*6/uL (4.20-5.50); Red Cell Distribution Width 13.3 % (11.0-16.0)
[2024-04-11 15:05] LABS: Blood Urea Nitrogen 11 mg/dL (9-16); Estimated Glomerular Filt Rate > 60
[2024-04-11 15:17] LABS: Alanine Aminotransferase 94 U/L (0-31); Albumin Level 3.8 g/dL (3.5-5.0); Alkaline Phosphatase 63 U/L (39-117); Anion Gap 8 (12-20); Aspartate Amino Transferase 39 U/L (5-31); Bilirubin Total 0.2 mg/dL (0.0-1.0); Blood Urea Nitrogen 10 mg/dL (9-16); Calcium 8.7 mg/dL (8.4-10.2); Carbon Dioxide 27 mmol/L (22-29); Chloride 106 mmol/L (96-108); Estimated Glomerular Filt Rate > 60; Glucose Fasting 86 mg/dL (60-99); Potassium 4.1 mmol/L (3.3-5.1); Sodium 137 mmol/L (135-145); Total Protein 6.7 g/dL (6.5-8.0)
[2024-04-11 15:40] LABS: Folate 11.6 ng/mL (> or = 4.0); Vitamin B12 462 pg/mL (200-900)
[2024-04-14 15:44] LABS: TS Negative Control Passed; TS Panel A 0; TS Panel B 1; TS Positive Control Passed; TSpotTB Negative (Negative)
== END 2024-04-11 11:16 | disposition home or self-care (01) ==
LOC: HO.CHCLDS 11:15
PROVIDERS: PCP Internal Medicine; Referring Provider Dermatology; Visit Provider Nurse Practitioner Family
DX: R10.11 Right upper quadrant pain (principal); M54.16 Radiculopathy, lumbar region; L73.2 Hidradenitis suppurativa; Z79.899 Other long term (current) drug therapy
CPT/HCPCS: 36415; 80053; 82565; 82607; 82746; 83735; 84520; 85025; 86481

== ENCOUNTER 2024-06-22 18:04 | Emergency (ER) | payer MEDICAID, SELFPAY ==
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
[2024-06-22 18:10] VITALS: BP 120/80; PULSE 88
[2024-06-22 18:14] VITALS: BP 124/73; PULSE 96; RESP 18; TEMP 36.8; O2SAT 99; BMI 24.1
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
[2024-06-22 18:27] LABS: Appearance Urine Clear; Color Urine Yellow; Glucose Urine UA Negative (Negative); Leukocyte Esterase Urine Negative (Negative); Nitrite Urine Negative (Negative); PH 5.5 (5.0-9.0); Urine Blood Negative (Negative); Urine Ketones Negative (Negative); Urine Protein Negative (Neg-Trace)
[2024-06-22 18:36] LABS: Amphetamine Screen Urine Not Detected (Not Detect); Barbiturates, Urine Not Detected (Not Detect); Benzodiazepines Screen Urine Not Detected (Not Detect); Buprenorphine Scr Not Detected (Not Detect); Cannabinoid Screen Urine Not Detected (Not Detect); Cocaine Screen Urine Not Detected (Not Detect); Fentanyl, urine Not Detected (Not Detect); Methadone Screen, Urine Not Detected (Not Detect); Opiate Screen Urine Not Detected (Not Detect); Oxycodone Screen Urine Positive (Not Detect); Phencyclidine Screen Urine Not Detected (Not Detect)
--- NOTE | 2024-06-22 18:39 | ECG_ITS ---
Test Reason : jackie Blood Pressure : */* mmHG Vent. Rate : 91 BPM Atrial Rate : 91 BPM P-R Int : 168 ms QRS Dur : 86 ms QT Int : 348 ms P-R-T Axes : 11 8 49 degrees QTcB Int : 428 ms Normal sinus rhythm Cannot rule out Inferior infarct , age undetermined Possible Anterior infarct (cited on or before 23-Dec-2023) Abnormal ECG When compared with ECG of 23-Dec-2023 22:53, Minimal criteria for Inferior infarct are now Present Nonspecific T wave abnormality no longer evident in Inferior leads Nonspecific T wave abnormality, improved in Anterolateral leads Referred By: Javier Dubois Electronically Signed By: Rober Mckeon
--- NOTE | 2024-06-22 18:42 | PC.NURSE ---
Patient continues to decline to international exchange coordinator , provider aware
--- OUTSIDE RECORDS SUMMARY | 2024-06-22 18:49 | XMS_ITS | Encounter Summary ---
Author Organization [employer] Address 75 [facility] 7 [place] [address] Care Team Providers Care Fire Protection Designer Name Role Phone Carlo Santana MD Primary Care Provider +1- [phone] Reason for Visit * Reason Onset Date Comments Prior Authorization 12/29/2023 Encounter Details Date Type Department Care Team ([facility] st Contact Info) Description 12/29/2023 Telephone [facility] MEDICINE 230 [place] [address] Carlo Santana MD 505 [place], [place] [phone] Prior Authorization Social History Tobacco Use Types [...] from pt stating she was informed by [facility] pharmacy that oxyCODONE-acetaminophen (Percocet) 7.5-325MG tablet needs a PA. If any questions for the pt you can contact them at [phone]. documented in this encounter Plan of Treatment Upcoming Encounters Date Type Department Care Team (Late st Contact Info) Description 07/12/2024 9:30 AM EDT Clinical Support [facility] MED & PEDS 505 [place] [address] Fariba Gandhi, HUGO 505 [place] [address] documented as of this encounter Visit Diagnoses Not on filedocumented in this encounter Additional Health Concerns Assessment Noted Time PHQ-9 Depression Total Score: 3 06/04/19 23 3:42 PM EDT documented as of this encounter Care Teams Fire Protection Designer Relationship Specialty Start Date End Date Carlo Santana MD [address] [place] [address] PCP - General Internal Medicine 12/28/17 documented as of this encounter
--- OUTSIDE RECORDS SUMMARY | 2024-06-22 18:49 | XMS_ITS | Encounter Summary ---
Author Organization [employer] Address [address] [place] [address] 7 [place] [address] Care Team Providers Care Pharmacy Technician Instructor Name Role Phone Carlo Santana MD Primary Care Provider +1- [phone] Encounter Details Date Type Department Care Team ([facility] st Contact Info) Description 01/06/2024 Orders Only [facility] CH[facility] MED & PEDS 505 [place], [place] [phone] Carlo Santana MD 505 [place] [address] Diarrhea, unspecified type (Primary Dx); Chronic left-sided [...] Description 07/12/2024 9:30 AM EDT Clinical Support [facility] MED & PEDS 505 [place] [address] Fariba Gandhi RN 505 [place] [address] Scheduled Orders Name Type Priority Associated Diagnoses [...] Protein <0.10 < or = 0.50 mg/dL [facility] Blood Venous blood specimen / Unknown 01/06/2024 1:18 PM EDT 01/06/2024 2:16 PM EDT Carlo Santana MD LAB BLOOD ORDERABLES Final Result [facility] 575 [place] [address] [phone] documented in this encounter Visit Diagnoses Diagnosis Diarrhea, unspecified type- Primary Chronic left-sided low back pain with left-sided sciatica documented in this encounter Additional Health Concerns Assessment Noted Time PHQ-9 Depression Total Score: 3 06/04/19 23 3:42 PM EDT documented as of this encounter Care Teams Pharmacy Technician Instructor Relationship Specialty Start Date End Date Carlo Santana MD [address] [place] [address] PCP - General Internal Medicine 12/28/17 documented as of this encounter
--- OUTSIDE RECORDS SUMMARY | 2024-06-22 18:49 | XMS_ITS | Encounter Summary ---
Author Organization [employer] Address 75 [facility] 7 [place] [address] Care Team Providers Care Sawing And Assembly Supervisor Name Role Phone Carlo Santana MD Primary Care Provider +1- [phone] Reason for Visit * Reason Onset Date Comments Results 01/03/2024 Encounter Details Date Type Department Care Team ([facility] st Contact Info) Description 01/03/2024 Telephone [facility] MEDICINE 230 [place] [address] Carlo Santana MD [address] [facility] [address] [place], [place] [phone] Results Social History Tobacco Use Types Packs/Day [...] borderline values. THIS TEST WAS PERFORMED AT: [employer] [facility] [address] [place] [address] CHERYL MOLINA MD,PHD,BATSHEVA Dr. Santana, This is the results found on Roomlr for pt recent Calprotectin stool testing. Pt would like a call back with the interpretation of the results. * Telephone Encounter - Quan Mena - 01/03/2024 11:01 AM EDT TC from pt requesting call back regarding Results. Type of results: Labs Date when done: 12/24/23 Facility: [facility] labs documented in this encounter Plan of Treatment Upcoming Encounters Date Type Department Care Team (Late st Contact Info) Description 07/12/2024 9:30 AM EDT Clinical Support [facility] CHC MED & PEDS 505 [place] [address] Fariba Gandhi, HUGO 505 [place] [address] documented as of this encounter Visit Diagnoses Not on filedocumented in this encounter Additional Health Concerns Assessment Noted Time PHQ-9 Depression Total Score: 3 06/04/19 23 3:42 PM EDT documented as of this encounter Care Teams Sawing And Assembly Supervisor Relationship Specialty Start Date End Date Carlo Santana MD 505 [place] [address] PCP - General Internal Medicine 12/28/17 documented as of this encounter
--- OUTSIDE RECORDS SUMMARY | 2024-06-22 18:49 | XMS_ITS | Encounter Summary ---
Author Organization [employer] Address [address] [place] [address] Care Team Providers Care Access Specialist Name Role Phone Carlo Santana MD Primary Care Provider +1- [phone] Reason for Referral * Imaging (Routine) - Closed Specialty Diagnoses / Procedures Referred By Contac t Referred To Contact Radiology Diagnoses Transaminitis Procedures US Abdomen Complete Carlo Santana MD 505 [place] [address] Phone: tel: fax: [address] Phone: tel: fax: Referral ID Status Reason Start Date Expiration Date Visits Re quested Visits Authorized [id number] Closed 03/23/2024 03/23/2025 1 1 Reason for Visit * Reason Comments Med Refill Encounter Details Date Type Department Care Team (Late st Contact Info) Description 03/21/2024 Refill [facility] CHC MED & PEDS 505 [place] [address] Carlo Santana MD 505 [place] [address] Chronic left-sided low back pain with left-sided [...] Description 07/12/2024 9:30 AM EDT Clinical Support [facility] CHC MED & PEDS 505 [place] [address] Fariba Gandhi RN 505 [place] [address] Scheduled Orders Name Type Priority Associated Diagnoses [...] documented as of this encounter Care Teams Access Specialist Relationship Specialty Start Date End Date Carlo Santana MD 505 [place] [address] PCP - General Internal Medicine 12/28/17 documented as of this encounter
--- OUTSIDE RECORDS SUMMARY | 2024-06-22 18:49 | XMS_ITS | Encounter Summary ---
Author Organization [employer] Address [address] [place] [address] 7 [place] [address] Care Team Providers Care Loom Checker Name Role Phone Carlo Santana MD Primary Care Provider +1- [phone] Reason for Visit * Reason Onset Date Comments Med Refill 09/14/2023 Encounter Details Date Type Department Care Team ([facility] st Contact Info) Description 09/14/2023 Telephone [facility] MED & PEDS 505 [place] [address] Carlo Santana MD 505 [place] [address] Med Refill Social History Tobacco Use Types [...] 5 % patch To be sent to: [facility]/pharmacy #[id number] LEATHA PHILLIPS - [phone] [facility] documented in this encounter Plan of Treatment Upcoming Encounters Date Type Department Care Team (Late st Contact Info) Description 07/12/2024 9:30 AM EDT Clinical Support [facility] MED & PEDS 505 [place] [address] Fariba Gandhi, HUGO 505 [place] [address] documented as of this encounter Visit Diagnoses Not on filedocumented in this encounter Additional Health Concerns Assessment Noted Time PHQ-9 Depression Total Score: 3 06/04/19 23 3:42 PM EDT documented as of this encounter Care Teams Loom Checker Relationship Specialty Start Date End Date Carlo Santana MD 505 [place] [address] PCP - General Internal Medicine 12/28/17 documented as of this encounter
--- OUTSIDE RECORDS SUMMARY | 2024-06-22 18:49 | XMS_ITS | Encounter Summary ---
Author Organization [employer] Address [address] [place] [address] 7 [place] [address] Care Team Providers Care Cloth Winding Supervisor Name Role Phone Carlo Santana MD Primary Care Provider +1- [phone] Reason for Visit * Reason Onset Date Comments PA 01/31/2024 Encounter Details Date Type Department Care Team ([facility] st Contact Info) Description 01/31/2024 Telephone [facility] CH[facility] MED & PEDS 505 [place] [address] Carlo Santana MD 505 [place] [address] PA Social History Tobacco Use Types Packs/Day [...] ([facility] st Contact Info) Description 07/12/2024 9:30 AM EDT Clinical Support [facility] CHC MED & PEDS 505 [place] [address] Fariba Gandhi RN 505 [place] [address] documented as of this encounter Visit Diagnoses Not on filedocumented in this encounter Additional Health Concerns Assessment Noted Time PHQ-9 Depression Total Score: 15 024 11:50 AM EST documented as of this encounter Care Teams Cloth Winding Supervisor Relationship Specialty Start Date End Date Carlo Santana MD 505 [place] [address] PCP - General Internal Medicine 12/28/17 documented as of this encounter
--- OUTSIDE RECORDS SUMMARY | 2024-06-22 18:49 | XMS_ITS | Encounter Summary ---
Author Organization [employer] Address [address] [place] [address] 7 [place] [address] Care Team Providers Care Electronics Engineer Name Role Phone Carlo Santana MD Primary Care Provider +1- [phone] Reason for Visit * Reason Onset Date Comments Prior Authorization 09/02/2023 Encounter Details Date Type Department Care Team ([facility] Contact Info) Description 09/02/2023 Telephone [facility] MED & PEDS 505 [place] [address] Carlo Santana MD 505 [place] [address] Prior Authorization Social History Tobacco Use Types [...] 07/12/2024 9:30 AM EDT Clinical Support [facility] MED & PEDS 505 [place] [address] Fariba Gandhi, RN 505 [place] [address] documented as of this encounter Visit Diagnoses Diagnosis Bipolar affective disorder, remission status unspecified ([facility]) documented in this encounter Additional Health Concerns Assessment Noted Time PHQ-9 Depression Total Score: 3 06/04/19 23 3:42 PM EDT documented as of this encounter Care Teams Electronics Engineer Relationship Specialty Start Date End Date Carlo Santana MD [address] [place] [address] PCP - General Internal Medicine 12/28/17 documented as of this encounter
--- OUTSIDE RECORDS SUMMARY | 2024-06-22 18:49 | XMS_ITS | Encounter Summary ---
Author Organization [employer] Address 75 [facility] 7 [place] [address] Care Team Providers Care Front Office Attendant Name Role Phone Carlo Santana MD Primary Care Provider +1- [phone] Reason for Visit * Reason Onset Date Comments Medication Question 12/28/2023 Encounter Details Date Type Department Care Team ([facility] st Contact Info) Description 12/28/2023 Telephone [facility] MED[facility]INE [address] [place] [address] Carlo Santana MD [address] [facility] [address] [place], [place] [phone] Medication Question Social History Tobacco Use Types [...] any questions you can contact pt at [phone]. documented in this encounter Plan of Treatment Upcoming Encounters Date Type Department Care Team ([facility] st Contact Info) Description 07/12/2024 9:30 AM EDT Clinical Support [facility] MED & PEDS 505 [place] [address] Fariba Gandhi, HUGO 505 [place] [address] documented as of this encounter Visit Diagnoses Not on filedocumented in this encounter Additional Health Concerns Assessment Noted Time PHQ-9 Depression Total Score: 3 06/04/19 23 3:42 PM EDT documented as of this encounter Care Teams Front Office Attendant Relationship Specialty Start Date End Date Carlo Santana MD [address] [place] [address] PCP - General Internal Medicine 12/28/17 documented as of this encounter
--- OUTSIDE RECORDS SUMMARY | 2024-06-22 18:49 | XMS_ITS | Encounter Summary ---
Author Organization [employer] Address 75 [facility] 7 [place] [address] Care Team Providers Care Weaver Tire Cord Name Role Phone Carlo Santana MD Primary Care Provider +1- [phone] Reason for Visit * Reason Onset Date Comments Prior Authorization 02/07/2024 Encounter Details Date Type Department Care Team ([facility] st Contact Info) Description 02/07/2024 Telephone [facility] MEDICINE 230 [place] [address] Carlo Santana MD 505 [place] [address] Prior Authorization Social History Tobacco Use Types [...] Description 07/12/2024 9:30 AM EDT Clinical Support [facility] MED & PEDS 505 [place] [address] Fariba Gandhi, RN 505 [place] [address] documented as of this encounter Visit Diagnoses Not on filedocumented in this encounter Additional Health Concerns Assessment Noted Time PHQ-9 Depression Total Score: 15 024 11:50 AM EST documented as of this encounter Care Teams Weaver Tire Cord Relationship Specialty Start Date End Date Carlo Santana MD [address] [place] [address] PCP - General Internal Medicine 12/28/17 documented as of this encounter
--- OUTSIDE RECORDS SUMMARY | 2024-06-22 18:49 | XMS_ITS | Encounter Summary ---
Author Organization [employer] Address [address] [place] [address] 7 [place] [address] Care Team Providers Care Personnel Monitor Name Role Phone Carlo Santana MD Primary Care Provider +1- [phone] Reason for Visit * Reason Onset Date Comments Medication Question 01/31/2024 Encounter Details Date Type Department Care Team ([facility] Contact Info) Description 01/31/2024 Telephone [facility] CHC MED & PEDS 505 [place] [address] Carlo Santana MD 505 [place] [address] Medication Question Social History Tobacco Use Types [...] Mayorga LPN - 01/31/2024 10:10 AM EST Cobol Engineer communicated with the patient's insurance provider, who indicated that prior authorization is not required. Oxycodone was discontinued because the patient received a prescription for acetaminophen 600 mg from another physician's office on January 25, 2024. I requested that the [facility] CST nurse join this discussion to ensure she is informed about the patient's situation. The insurance expressed concerns regarding the patient's liver health due to the use of these medications. An override for Oxycodone was granted; however, it was noted that it will be revoked if the patient continuesto use this medication (acetaminophen 600 mg). This information is being shared with both the CLERICAL CAR CHECKER nurse and the primary care physician to [...] Description 07/12/2024 9:30 AM EDT Clinical Support [facility] MED & PEDS 505 [place] [address] Fariba Gandhi, HUGO 505 [place] [address] documented as of this encounter Visit Diagnoses Not on filedocumented in this encounter Additional Health Concerns Assessment Noted Time PHQ-9 Depression Total Score: 15 024 11:50 AM EST documented as of this encounter Care Teams Personnel Monitor Relationship Specialty Start Date End Date Carlo Santana MD 505 [place] [address] PCP - General Internal Medicine 12/28/17 documented as of this encounter
--- OUTSIDE RECORDS SUMMARY | 2024-06-22 18:49 | XMS_ITS | Encounter Summary ---
Author Organization [employer] Address [address] [place] [address] 7 [place] [address] Care Team Providers Care Body Finisher Name Role Phone Carlo Santana MD Primary Care Provider +1- [phone] Reason for Visit * Reason Onset Date Comments Med Change Request 09/14/2023 Encounter Details Date Type Department Care Team ([facility] Contact Info) Description 09/14/2023 Telephone [facility] MED & PEDS 505 [place] [address] Carlo Santana MD 505 [place] [address] Med Change Request Social History Tobacco Use [...] in the morning. Please contact pt at [phone] documented in this encounter Plan of Treatment Upcoming Encounters Date Type Department Care Team ([facility] st Contact Info) Description 07/12/2024 9:30 AM EDT Clinical Support [facility] CHC MED & PEDS 505 [place] [address] Fariba Gandhi, HUGO 505 [place] [address] documented as of this encounter Visit Diagnoses Not on filedocumented in this encounter Additional Health Concerns Assessment Noted Time PHQ-9 Depression Total Score: 3 06/04/19 23 3:42 PM EDT documented as of this encounter Care Teams Body Finisher Relationship Specialty Start Date End Date Carlo Santana MD 505 [place] [address] PCP - General Internal Medicine 12/28/17 documented as of this encounter
--- OUTSIDE RECORDS SUMMARY | 2024-06-22 18:49 | XMS_ITS | Encounter Summary ---
Author Organization [employer] Address 75 [facility] 7 [place] [address] Care Team Providers Care Senior Market Intelligence Consultant Name Role Phone Carlo Santana MD Primary Care Provider +1- [phone] Reason for Visit * Reason Onset Date Comments Nurse Triage 03/21/2024 Encounter Details Date Type Department Care Team (Late st Contact Info) Description 03/21/[address] [facility] MEDICINE 230 [place] [address] Carlo Santana MD [address] [facility] [address] [place], [place] [phone] Nurse Triage Social History Tobacco Use Types [...] EST Triage call Pt reports seen by small engine technician and Pt believes they may have Crohns disease. Ptreport cold sores on inside of mouth for several days. Pt reports chronic right sided pain , right shoulder to shoulder blade and elbow to shoulder. Pt reports , I have fibromyalgia . Pt reports pain is so much worse, severe and requests to see only Dr. Santana. ASK apt 03/22/24 @ 230pm. Pt agrees with disposition and insurance is verified as active [...] Reason: Joint pain Please contact pt at [phone]. documented in this encounter Plan of Treatment Upcoming Encounters Date Type Department Care Team (Late st Contact Info) Description 07/12/2024 9:30 AM EDT Clinical Support [facility] MED & PEDS 505 [place] [address] Fariba Gandhi, HUGO 505 [place] [address] documented as of this encounter Visit Diagnoses Diagnosis Acute pain of both shoulders documented in this encounter Additional Health Concerns Assessment Noted Time PHQ-9 Depression Total Score: 15 024 11:50 AM EST documented as of this encounter Care Teams Senior Market Intelligence Consultant Relationship Specialty Start Date End Date Carlo Santana MD 505 [place] [address] PCP - General Internal Medicine 12/28/17 documented as of this encounter
--- OUTSIDE RECORDS SUMMARY | 2024-06-22 18:49 | XMS_ITS | Continuity of Care Document ---
Author Organization [facility] Address [address] [place] [address], [address] [place] [address]- Care Team Providers Care Numerical Control Machine Operator Name Role Phone Carlo Santana MD Primary Care Physician [phone] Encounter [facility] Date(s): 05/21/24 - 06/20/24 [facility] [address] [place] [address] Drive [address] [place], [place] [address] Encounter Type: Triage Allergies, Adverse Reactions, Alerts Substance Criticality Severity Reaction Reaction Severity Status cyclobenzaprine ? reaction Act shalom Immunizations Given and Recorded Vaccine Date Status Refusal Reason influenza virus vaccine, inactivated 1 02/24/10 Gi mark anthony tetanus-diphtheria toxoids (Td) 2 11/13/08 Given FluLaval (oldterm) 3 11/13/08 Given 1Admin Note: vis given 10/21/09 2Admin Note: VIS given dated 01/30/08 3Admin Note: VIS given dated 10/22/08 Medications acetaminophen 325 mg oral tablet Refills 0, Maintenance, 04/12/24 3:20:00 PM EST, Partial fill upon patient request if the prescription is for a schedule II opioid drug. Start Date: 04/12/24 Status: Ordered Repeat number: 1 acetaminophen-oxycodone 325 mg-7.5 mg oral tablet 0 Refills, Maintenance, 04/12/24 3:24:00 PM EST, Partial fill upon patient request if the prescription is for a schedule II opioid drug. Start Date: 04/12/24 Status: Ordered Repeat number: 1 Amlodipine By Mouth, Daily, 0 Refills, Maintenance, 04/12/24 3:27:00 PM EST, Partial fill upon patient request if the prescription is for a schedule II opioid drug. Start Date: 04/12/24 Status: Ordered Repeat number: 1 ARIPiprazole 2 mg oral tablet Refills 0, Maintenance, 04/12/24 3:27:00 PM EST, Partial fill upon patient request if the prescription is for a schedule II opioid drug. Start Date: 04/12/24 Status: Ordered Repeat number: 1 celecoxib 200 mg oral capsule 0 Refills, Maintenance, 04/12/24 3:22:00 PM EST, Partial fill upon patient request if the prescription is for a schedule II opioid drug. Start Date: 04/12/24 Status: Ordered Repeat number: 1 duloxetine 30 mg oral enteric coated capsule 0 Refills, Maintenance, 04/12/24 3:24:00 PM EST, Partial fill upon patient request if the prescription is for a schedule II opioid drug. Start Date: 04/12/24 Status: Ordered Repeat number: 1 gabapentin 600 mg oral tablet 0 Refills, Maintenance, 04/12/24 3:26:00 PM EST, Partial fill upon patient request if the prescription is for a schedule II opioid drug. Start Date: 04/12/24 Status: Ordered Repeat number: 1 Geodon 60 mg oral capsule 2 capsules, By Mouth, Daily, 0 Refills, Maintenance, 10/06/12 2:36:35 PM EDT Start Date: 10/06/12 Status: Ordered Repeat number: 1 hydrOXYzine pamoate 50 mg oral capsule 0 Refills, Maintenance, 04/12/24 3:23:00 PM EST, Partial fill upon patient request if the prescription is for a schedule II opioid drug. Start Date: 04/12/24 Status: Ordered Repeat number: 1 Klonopin 1 mg oral tablet 1 tablet = 1 mg, By Mouth, Daily at bedtime, PRN Anxiety, 0 Refills, Maintenance, 05/23/13 2:02:10 PM EDT Start Date: 05/23/13 Status: Ordered Repeat number: 1 lidocaine 5% topical film 0 Refills, Maintenance, 04/12/24 3:22:00 PM EST, Partial fill upon patient request if the prescription is for a schedule II opioid drug. Start Date: 04/12/24 Status: Ordered Repeat number: 1 loperamide 2 mg oral capsule Refills 0, Maintenance, 04/12/24 3:25:00 PM EST, Partial fill upon patient request if the prescription is for a schedule II opioid drug. Start Date: 04/12/24 Status: Ordered Repeat number: 1 methocarbamol 500 mg oral tablet 0 Refills, Maintenance, 04/12/24 3:23:00 PM EST, Partial fill upon patient request if the prescription is for a schedule II opioid drug. Start Date: 04/12/24 Status: Ordered Repeat number: 1 minocycline 50 [...] 6 Refills, Maintenance, 08/29/20 2:01:00 PM EDT, [facility]/pharmacy #[id number] Start Date: 08/29/20 Status: Ordered Quantity: 60.0 Unit: capsule Repeat number: 7 ondansetron 4 mg oral tablet 0 Refills, Maintenance, 04/12/24 3:21:00 PM EST, Partial fill upon patient request if the prescription is for a schedule II opioid drug. Start Date: 04/12/24 Status: Ordered Repeat number: 1 oxybutynin 10 mg/24 hr oral tablet, extended release 0 Refills, Maintenance, 04/12/24 3:21:00 PM EST, Partial fill upon patient request if the prescription is for a schedule II opioid drug. Start Date: 04/12/24 Status: Ordered Repeat number: 1 Spironolactone By Mouth, 0 Refills, Maintenance, 07/30/10 6:39:26 PM EDT Start Date: 07/30/10 Status: Ordered Repeat number: 1 topiramate 50 mg oral tablet 0 Refills, Maintenance, 04/12/24 3:22:00 PM EST, Partial fill upon patient request if the prescription is for a schedule II opioid drug. Start Date: 04/12/24 Status: Ordered Repeat number: 1 valACYclovir 500 mg oral tablet Refills 0, Maintenance, 04/12/24 3:23:00 PM EST, Partial fill upon patient request if the prescription is for a schedule II opioid drug. Start Date: 04/12/24 Status: Ordered Repeat number: 1 Problem List [...] Team Personnel Name: Carlo Santana MD Position: [facility] Outreach Member Role: PCP Address: [address] [place] [address] Telecom: Care Team Related Persons Name: DOREEN LANDIN Insurance Providers Guarantor name: LEWIS ABAD [facility] Plan Information #: 1 Payer: [facility] Member Number: NA Policy Number: NA Group Number: [id number]
--- OUTSIDE RECORDS SUMMARY | 2024-06-22 18:49 | XMS_ITS | Encounter Summary ---
Author Organization [employer] Address [address] [place] [address] 7 [place] [address] Care Team Providers Care Flight Operation Coordinator Name Role Phone Carlo Santana MD Primary Care Provider +1- [phone] Encounter Details Date Type Department Care Team ([facility] st Contact Info) Description 08/17/2023 Orders Only [facility] CHC MED & PEDS [address] [place], [place] [phone] Carlo Santana MD 505 [place], [place] [phone] Bipolar affective disorder, remission status unspecified (CMS/HCC) [...] ([facility] st Contact Info) Description 07/12/2024 9:30 AM EDT Clinical Support [facility] MED & PEDS 505 [place] [address] Fariba Gandhi RN 505 [place] [address] documented as of this encounter Visit Diagnoses Diagnosis Bipolar affective disorder, remission status unspecified ([facility] Primary documented in this encounter Additional Health Concerns Assessment Noted Time PHQ-9 Depression Total Score: 3 06/04/19 23 3:42 PM EDT documented as of this encounter Care Teams Flight Operation Coordinator Relationship Specialty Start Date End Date Carlo Santana MD 505 [place] [address] PCP - General Internal Medicine 12/28/17 documented as of this encounter
--- OUTSIDE RECORDS SUMMARY | 2024-06-22 18:49 | XMS_ITS | Encounter Summary ---
Author Organization [employer] Address 75 [facility] 7 [place] [address] Care Team Providers Care Location Man Name Role Phone Carlo Santana MD Primary Care Provider +1- [phone] Encounter Details Date Type Department Care Team (Late st Contact Info) Description 04/03/2024 Telephone [facility] MEDICINE [address] [place] [address] Carlo Santana MD [address] [facility] [address] [place], [place] [phone] Social History Tobacco Use Types Packs/Day Years [...] Description 07/12/2024 9:30 AM EDT Clinical Support [facility] CHC MED & PEDS 505 [place] [address] Fariba Gandhi, RN 505 [place] [address] documented as of this encounter Visit Diagnoses Not on filedocumented in this encounter Additional Health Concerns Assessment Noted Time PHQ-9 Depression Total Score: 15 024 11:50 AM EST documented as of this encounter Care Teams Location Man Relationship Specialty Start Date End Date Carlo Santana MD 505 [place] [address] PCP - General Internal Medicine 12/28/17 documented as of this encounter
--- OUTSIDE RECORDS SUMMARY | 2024-06-22 18:50 | XMS_ITS | Encounter Summary ---
Author Organization [employer] Address 75 [facility] 7 [place] [address] Care Team Providers Care Telecommunications Specialist Name Role Phone Carlo Santana MD Primary Care Provider +1- [phone] Reason for Visit * Reason Onset Date Comments Med Refill 09/17/2023 Encounter Details Date Type Department Care Team (Late st Contact Info) Description 09/17/2023 Refill [facility] MEDICINE 230 [place] [address] Carlo Santana MD 505 [place], [place] [phone] Chronic left-sided low back pain with left-sided [...] 07/12/2024 9:30 AM EDT Clinical Support [facility] MED & PEDS 505 [place] [address] Fariba Gandhi, HUGO 505 [place] [address] documented as of this encounter Visit Diagnoses Diagnosis Chronic left-sided low back pain with left-sided sciatica documented in this encounter Additional Health Concerns Assessment Noted Time PHQ-9 Depression Total Score: 3 06/04/19 23 3:42 PM EDT documented as of this encounter Care Teams Telecommunications Specialist Relationship Specialty Start Date End Date Carlo Santana MD 505 [place] [address] PCP - General Internal Medicine 12/28/17 documented as of this encounter
--- OUTSIDE RECORDS SUMMARY | 2024-06-22 18:50 | XMS_ITS | Encounter Summary ---
Author Organization [employer] Address [address] [place] [address] 7 [place] [address] Care Team Providers Care Spring Tester Name Role Phone Carlo Santana MD Primary Care Provider +1- [phone] Encounter Details Date Type Department Care Team ([facility] st Contact Info) Description 06/21/2024 Telephone [facility] MED & PEDS 505 [place] [address] Fariba Gandhi, HUGO 505 [place] [address] Social History Tobacco Use Types Packs/Day Years [...] Telephone Encounter - Fariba Gandhi RN - 06/21/2024 4:13 PM EDT TC back to pt, no answer. Lvm for pt. documented in this encounter Plan of Treatment Upcoming Encounters Date Type Department Care Team (Late st Contact Info) Description 07/12/2024 9:30 AM EDT Clinical Support [facility] CH[facility] MED & PEDS [address] [place] [address] Fariba Gandhi RN 505 [place] [address] documented as of this encounter Visit Diagnoses Not on filedocumented in this encounter Additional Health Concerns Assessment Noted Time PHQ-9 Depression Total Score: 15 024 11:50 AM EST documented as of this encounter Care Teams Spring Tester Relationship Specialty Start Date End Date Carlo Santana MD 505 [place] [address] PCP - General Internal Medicine 12/28/17 documented as of this encounter
--- OUTSIDE RECORDS SUMMARY | 2024-06-22 18:50 | XMS_ITS | Encounter Summary ---
Author Organization [employer] Address [address] [place] [address] Care Team Providers Care Edge Grinder Machine Name Role Phone Carlo Santana MD Primary Care Provider +1- [phone] Reason for Referral * Consultation (Routine) - Closed Specialty Diagnoses / Procedures Referred By Contfina t Referred To Contact Pain Medicine Diagnoses Chronic left-sided low back pain with left-sided sciatica Lumbar radiculopathy Chronic right-sided low back pain with right-sided sciatica Carlo Santana MD 505 [place] [address] Phone: tel: fax: [facility] [address] [place] [address] Phone: tel: fax: Referral ID Status Reason Start Date Expiration Date V isits Requested Visits Authorized [id number] Closed Specialty Services Required 07/29/2023 07/28/2024 1 1 Encounter Details Date Type Department Care Team ([facility] st Contact Info) Description 07/29/2023 Orders Only [facility] CH[facility] MED & PEDS [address] [place] [address] Carlo Santana MD 505 [place] [address] Chronic left-sided low back pain with left-sided [...] [facility] 505 [place] [address] Fariba Gandhi, RN 505 [place] [address] Scheduled Referrals Name Type Priority Associated Diagnoses [...] documented as of this encounter Care Teams Edge Grinder Machine Relationship Specialty Start Date End Date Carlo Santana MD [address] [place] [address] PCP - General Internal Medicine 12/28/17 documented as of this encounter
--- OUTSIDE RECORDS SUMMARY | 2024-06-22 18:50 | XMS_ITS | Clinical Summary ---
Author Organization [employer] Address [address] [place] [address] [address] [place] [address] Care Team Providers Care Counter Professional Name Role Phone Carlo Santana MD Primary Care Provider Allergies Active Allergy Reactions Criticality Noted Date Comments Cyclobenzaprine 07/27/2022 Other reaction(s): ? reaction Medications * This document contains information received from the source organization and may not represent a complete record from that organization. naloxone (Narcan) 4 mg/0.1 mL nasal spray Administer 0.1 mL into affected nostril(s). Massey 0.1 milliliter by intranasal route in 1 [...] SPLIT 30 tablet 2 10/11/19 24 Active topiramate 50 MG tabletIndicati ons:New daily persistent headache TAKE 1 TABLET BY MOUTH TWICE A DAY 60 tablet 11 12/02/19 24 Active ARIPiprazole (Abilify) 2 MG tablet [...] DAY FOR 30 DAYS 10/17/19 24 Active Nutritional Supplements (Boost High Protein) liquidIndicati ons:Hypoprotei nemia (CMS/HCC) DRINK 1 CAN TWICE DAILY 5688 mL 11 03/16/19 25 Active DULoxetine (Cymbalta) [address] capsule TAKE 1 CAPSULE BY MOUTH TWICE A DAY. DO NOT CRUSH OR CHEW. 60 capsule 2 04/09/19 25 Active hydrOXYzine pamoate (Vistaril) 50 MG capsuleIndicat ions:Bipolar affective disorder, remission status unspecified (CMS/HCC) TAKE 1 CAPSULE BY MOUTH EVERY 8 HOURS IF NEEDED FOR ITCHING 90 capsule 3 04/09/19 25 Active econazole nitrate 1 % cream APPLY TO AFFECTED AREA TWICE A DAY FOR 21 DAYS 30 g 11 04/09/19 25 Active clonazePAM (KlonoPIN) 1 MG tabletIndicati ons:[place] (generalized anxiety disorder) Take 1 tablet (1 mg) by mouth if needed each day for anxiety. 30 tablet 04/09/19 25 Active ferrous sulfate (Fe Tabs) 325 (65 Fe) MG EC tabletIndicati ons:Normocytic anemia Take 1 tablet (325 mg) by mouth with breakfast. Do not crush, chew, or split. 90 tablet 3 04/11/19 25 026 Active ziprasidone (Geodon) 80 MG capsuleIndicat ions:Bipolar affective disorder, remission status unspecified (CMS/HCC) TAKE 1 CAPSULE BY MOUTH TWICE DAILY. 60 capsule 2 04/24/19 25 Active loperamide (Anti-Diarrhea l) 2 MG tabletIndicati ons:Diarrhea, unspecified type Take 1 tablet (2 mg) by mouth if needed in the morning, at noon, in the evening, and at bedtime for diarrhea. 30 tablet 2 04/17/19 25 Active lidocaine (Lidoderm) 5 % patchIndicatio ns:Chronic left-sided low back pain with left-sided sciatica APPLY 1 PATCH TOPICALLY EVERY DAY REMOVE AND DISCARD PATCH WITHIN 12 HOURS OR DIRECTED BY MD. 30 patch 1 04/18/19 25 Active acetaminophen (Tylenol) 325 MG tabletIndicati ons:Chronic left-sided low back pain with left-sided sciatica TAKE TWO TABLETS EVERY 6 HOURS NEEDED FOR MILD PAIN 84 tablet 04/24/19 25 Active ondansetron (Zofran) 4 MG tablet TAKE 2 TABLETS BY MOUTH EVERY 8 HOURS NEEDED FOR NAUSEA AND VOMITING 30 tablet 3 05/09/19 25 Active lidocaine (Xylocaine) 5 % ointmentIndica tions:Chronic left shoulder pain,Rib pain,Chronic left-sided low back pain with left-sided sciatica,Neck pain APPLY 5 GRAMS TO AFFECTED AREA 4 TIMES A DAY NEEDED FOR MILD PAIN 248.08 g 11 05/25/19 25 Active clonazePAM (KlonoPIN) 1 MG tabletIndicati ons:[place] (generalized anxiety disorder) Take 1 tablet (1 mg) by mouth Once per day. Do not start before June 08, 2024. 30 tablet 06/09/19 25 Active methocarbamol (Robaxin) 500 MG tabletIndicati ons:Muscle spasm TAKE 1 TABLET BY MOUTH FOUR TIMES A DAY 120 tablet 06/05/19 25 Active loperamide (Imodium) 2 MG capsuleIndicat ions:Diarrhea, unspecified type TAKE 1 TO 2 CAPSULES (2 TO 4 MG TOTAL) BY MOUTH IF NEEDED IN THE MORNING, AT 12PM, IN THE EVENING, AND AT BEDTIME FOR DIARRHEA FOR UP TO 10 DAYS. 30 capsule 06/08/19 25 Active cholecalcifero l (Vitamin D-3) 25 MCG (1000 UT) capsule TAKE 1 CAPSULE BY MOUTH EVERY DAY 90 capsule 06/08/19 25 Active celecoxib (CeleBREX) 200 MG capsuleIndicat ions:Chronic left shoulder pain,Muscle spasm TAKE 1 CAPSULE BY MOUTH IN THE MORNING AND AT BEDTIME NEEDED FOR MODERATE PAIN 60 capsule 06/09/19 25 Active amitriptyline (Elavil) 10 MG tabletIndicati ons:Diarrhea, unspecified type TAKE 1 TABLET BY MOUTH EVERYDAY AT BEDTIME 30 tablet 06/09/19 25 Active oxyCODONE (Roxicodone) 10 MG immediate release tabletIndicati ons:Chronic left-sided low back pain with left-sided sciatica Take 1 tablet (10 mg) by mouth every 8 (eight) hours if needed for severe pain for up to 28 days. Do not start before June 14, 2024. 84 tablet 06/15/19 25 025 Active oxyCODONE-acet aminophen (Percocet) 7.5-325 MG tabletIndicati ons:Chronic left-sided low back pain with left-sided sciatica Take 1 tablet by mouth every 6 (six) hours if needed for severe pain. 112 tablet 06/15/19 25 Active methocarbamol (Robaxin) 500 MG tabletIndicati ons:Muscle spasm Take 1 tablet (500 mg) by mouth 4 times daily. 30 tablet 11/07/19 025 Discontinued(R eorder (will not trigger notification to Pharmacy)) D3-1000 25 MCG (1000 UT) capsule Take 1 capsule (25 mcg) by mouth Once per day. 90 capsule 02/20/20 24 025 Discontinued oxyCODONE-acet aminophen (Percocet) 7.5-325 MG tabletIndicati ons:Chronic left-sided low back pain with left-sided sciatica Take 1 tablet by mouth every 6 (six) hours if needed for severe pain. Do not start before March 23, 2024. 112 tablet 03/23/19 25 025 Discontinued(R eorder (will not trigger notification to Pharmacy)) oxyCODONE (Roxicodone) 10 MG immediate release tabletIndicati ons:Chronic left-sided low back pain with left-sided sciatica TAKE ONE TABLET EVERY 8 HOURS NEEDED FOR SEVERE PAIN 84 tablet 04/24/19 25 025 Discontinued(R eorder (will not trigger notification to Pharmacy)) clonazePAM (KlonoPIN) 1 MG tabletIndicati ons:[place] (generalized anxiety disorder) Take 1 tablet (1 mg) by mouth Once per day. Do not start before May 09, 2024. 30 tablet 05/09/19 25 025 Discontinued(R eorder (will not trigger notification to Pharmacy)) celecoxib (CeleBREX) 200 MG capsuleIndicat ions:Chronic left shoulder pain,Muscle spasm TAKE 1 CAPSULE BY MOUTH IN THE MORNING AND AT BEDTIME NEEDED FOR MODERATE PAIN 60 capsule 05/08/19 25 025 Discontinued amitriptyline (Elavil) 10 MG tabletIndicati ons:Diarrhea, unspecified type TAKE 1 TABLET BY MOUTH EVERYDAY AT BEDTIME 30 tablet 05/08/19 25 025 Discontinued lidocaine (Xylocaine) 5 % ointmentIndica tions:Chronic left shoulder pain,Rib pain,Chronic left-sided low back pain with left-sided sciatica,Neck pain APPLY 5 GM TO AFFECTED AREA FOUR TIMES DAILY NEEDED FOR MILD PAIN 50 g 6 05/09/19 25 025 Discontinued methocarbamol (Robaxin) 500 MG tabletIndicati ons:Muscle spasm TAKE 1 TABLET BY MOUTH FOUR TIMES A DAY 30 tablet 05/26/19 25 025 Discontinued(R eorder (will not trigger notification to Pharmacy)) methocarbamol (Robaxin) 500 MG tabletIndicati ons:Muscle spasm TAKE 1 TABLET BY MOUTH FOUR TIMES A DAY 120 tablet 05/26/19 25 025 Discontinued(R eorder (will not trigger notification to Pharmacy)) oxyCODONE (Roxicodone) 10 MG immediate release tabletIndicati ons:Chronic left-sided low back pain with left-sided sciatica Take 1 tablet (10 mg) by mouth every 8 (eight) hours if needed for severe pain for up to 7 days. Do not start before June 08, 2024. 21 tablet 06/09/19 25 025 Discontinued(R eorder (will not trigger [...] the last 15 years. Now engaged with [facility] for OP, and waiting [...] Patient to reach out to [facility] team as needed, Patient to engage in OP therapy , and Patient to reach out to [facility] as needed. Pt reports being connected with [facility] for individual therapy. She completed third OP session and was added to wait list for psych provider within [facility]. Mixed stress and urge [...] the last 15 years. Now engaged with [facility] for OP, and waiting to be connected with psych provider. Severe anxiety is interfering with daily activities and affecting her interpersonal relationships. PLAN: (check all that apply) Continue with current services (defined as services in the past 12 months) Behavioral Health Integration Plan Patient Self Plan Patient to utilize skills provided in intervention , Patient to reach out to [facility] team as needed, Patient to engage in OP therapy , and Patient to reach out to [facility] as needed. Pt reports being connected with [facility] for individual therapy. She completed third OP session and was added to wait list for psych provider within [facility]. Obesity with body mass [...] for MRI. Heartburn 11/20/2015 Acne 05/21/2013 Encounters * This document contains information received from the source organization and may not represent a complete record from that organization. Date Type Department Care Team Description 06/22/2024 Telephone [facility] [address] [place] [address] Fariba Gandhi RN 06/22/2024 Travel 06/21/2024 Telephone [facility] [address] [place] [address] Fariba Gandhi RN 06/21/[address] [address] Carlo Santana MD Call Back Request 06/21/[address] [address] Carlo Santana MD Med Refill 06/14/2024 Orders Only [facility] [address] [place] [address] Carlo Santana MD Chronic left-sided low back pain with left-sided sciatica 06/14/2024 Refill [facility] [address] [place] [address] Carlo Santana MD Chronic left-sided low back pain with left-sided sciatica 06/14/2024 Telephone [facility] [address] [place] [address] Carlo Santana MD Pharmacy Change Request 06/14/[address] [phone] Carlo Santana MD Med Refill 06/11/2024 Refill [facility] [address] [place] [address] 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, 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, 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-sided low back pain with left-sided sciatica 06/11/2024 Telephone [facility] [address] [place] [address] Carlo Santana MD Medication Question 06/07/2024 Refill [facility] [address] [place] [address] Carlo Santana MD Chronic left shoulder pain; Muscle spasm; Diarrhea, unspecified type 06/04/2024 Refill [facility] [address] [place] [address] Kia Zhang MD 06/04/2024 Refill [facility] [address] [place] [phone] Carlo Santana MD Diarrhea, unspecified type 06/04/2024 Travel 06/04/2024 Refill [facility] [address] [place] [address] Fariba Gandhi RN Chronic left-sided low back pain with left-sided sciatica 06/04/2024 Telephone [facility] [address] [place] [address] 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 06/04/2024 Refill [facility] [address] [place] [phone] Carlo Santana MD Muscle spasm 06/04/2024 Telephone [facility] [address] [place] [phone] Carlo Santana MD Med Refill 06/04/2024 Telephone [facility] [address] [place] [phone] Carlo Santana MD Appointment Request 05/31/2024 Telephone [facility] [address] [place] [address] Fariba Gandhi RN 05/31/2024 Refill [facility] [address] [place] [phone] Carlo Santana MD Muscle spasm 05/31/2024 Telephone [facility] [address] [place] [address] 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, 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 05/25/2024 Telephone [facility] [address], [place] [phone] Carlo Santana MD Medication Question 05/25/2024 Population Health Risk Score [facility] () [address] [phone] Provider, Population Health Generic 05/25/2024 Refill [facility] [address], [place] [phone] Fariba Gandhi RN [place] (generalized anxiety disorder) 05/25/2024 Telephone [facility] [address], [place] [phone] Carlo Santana MD Nurse Triage 05/25/2024 Telephone [facility] [address], [place] [phone] Carlo Santana MD Med Refill 05/25/2024 Refill [facility] [address] [place] [address] Carlo Santana MD Muscle spasm 05/23/2024 Refill [facility] [address], [place] [phone] Carlo Santana MD Chronic left shoulder pain; Rib pain; Chronic left-sided low back pain with left-sided sciatica; Neck pain 05/09/2024 Refill [facility] [address], [place] [phone] Carlo Santana MD Diarrhea, unspecified type; Chronic left shoulder pain; Rib pain; Chronic left-sided low back pain with left-sided sciatica; Neck pain 05/07/2024 Refill [facility] [address] [place] [address] Carlo Santana MD Chronic left shoulder pain; Muscle spasm; Diarrhea, unspecified type 05/02/2024 Refill [facility] [address] [place] [address] Carlo Santana MD [place] (generalized anxiety disorder) 04/25/2024 Telephone [facility] [address] [place] [address] Fariba Gandhi, HUGO 04/25/[address] [address] Carlo Santana MD Medication Question 04/23/2024 Refill [facility] [address] [place] [address] Carlo Santana MD Chronic left-sided low back pain with left-sided sciatica 04/18/2024 Refill [facility] [address] [place] [phone] Carlo Santana MD Bipolar affective disorder, remission status unspecified ([facility]/HCC); Chronic left-sided low back pain with left-sided sciatica 04/17/2024 Refill [facility] [address] [place] [address] Carlo Santana MD Diarrhea, unspecified type 04/17/2024 Telephone [facility] [address] [place] [phone] Carlo Santana MD Medication Question; Med Refill 04/15/2024 Refill [facility] [address] [place] [phone] Carlo Santana MD Bipolar affective disorder, remission status unspecified (CMS/HCC) 04/11/2024 Orders Only [facility] [address] [place] [address] Carlo Santana MD Normocytic anemia (Primary Dx); Transaminitis 04/11/2024 Orders Only GENERIC EXTERNAL DATA DEPARTMENT Provider, Generic External Data 04/09/2024 11:00 AM EST Office Visit [facility] [address] [place] [address] Carlo Santana MD Diarrhea, unspecified type (Primary Dx); Muscle spasm; Lumbar radiculopathy; [place] (generalized anxiety disorder) 04/09/2024 Refill [facility] [address] [place] [address] Carlo Santana MD Chronic left-sided low back pain with left-sided sciatica 04/09/2024 Refill [facility] [address] [place] [address] Carlo Santana MD Diarrhea, unspecified type; Bipolar affective disorder, remission status unspecified ([facility]/HCC); Diarrhea, unspecified type; [place] (generalized anxiety disorder) 04/03/2024 Telephone [facility] [address] [place] [address] Carlo Santana MD 04/03/2024 Telephone [facility] [address], [place] [phone] Carlo Santana MD Nurse Triage from Last [...] Description 07/12/2024 9:30 AM EDT Clinical Support [facility] [address] [place] [address] Fariba Gandhi, HUGO [address] [place] [address] Health Maintenance Due Date Last Done Comments Family Planning (PISQ) 1997 Hepatitis B Vaccines (1 of 3 - 19+ 3-dose series) 2001 Dental X-Ray: Full Mouth 04/19/2021 04/18/2018 Dental Oral Exam 04/17/2022 10/14/2021, 04/18/2018 Dental Prophylaxis 04/17/2022 10/14/2021, 1 03/20/2018, 05/24/2018 Mammogram 2022 Dental X-Ray: Bitewings 10/15/2022 10/15/19 22, 05/16/2018, 04/18/2018 Depression Monitoring 07/25/2024 01/26/2024, 024 SDOH Screening 01/18/2025 01/19/2024 Alcohol/Substance Use Screening 01/25/2025 01/26/2024 Depression Screening 01/25/2025 01/26/2024, 01/26/20 24 Tobacco Screening 04/09/2025 04/09/2024 Cervical Cancer Screening 02/11/2026 HPV/Cotest 02/11/2026 02/11/2021 Pap Smear 02/11/2026 02/11/2021 DTaP/Tdap/Td Vaccines (3 - Td or Tdap) 01/19/2028 01/18/2018, 05/21/2013, 11/13/2008 Zoster Vaccines (1 of 2) 2032 RSV [...] Procedure Name Priority Date/Time Associated Diagnosis Comments AMB REFERRAL TO NEUROSURGERY Routine 04/12/2024 Chronic left-sided low back pain with left-sided sciatica T-SPOT(R).TB Routine 04/11/2024 11:20 AM EST Normocytic anemia COMPREHENSIVE METABOLIC PANEL, FASTING Routine 04/11/2024 11:20 AM EST CREATININE, SERUM Routine 04/11/2024 11: 20 AM EST UREA NITROGEN (BUN) Routine 04/11/2024 1 1:20 AM EST VITAMIN B12/FOLATE, SERUM PANEL Routine 04/11/2024 11:20 AM EST Lumbar radiculopathy MAGNESIUM Routine 04/11/2024 11:20 AM EST Lumbar radiculopathy CBC WITH AUTO DIFFERENTIAL Routine 04/11/2024 11:20 AM EST Lumbar radiculopathy CT ENTEROGRAPHY ABDOMEN PELVIS W CONTRAST Routine 04/05/2024 10:51 AM EST HEPATITIS C AB W/REFL TO HCV RNA, QN, PCR Routine 01/26/2024 11:58 AM EST Diarrhea, unspecified type HIV 1/2 ANTIGEN/ANTIBODY, FOURTH GENERATION W/RFL Routine 01/26/2024 11:58 AM EST Diarrhea, unspecified type PROPHYLAXIS - ADULT Routine 10/14/2021 1 2:00 AM EDT BITEWINGS - 4 RADIOGRAPHIC IMAGES Routine 10/14/2021 12:00 AM EDT PERIODIC ORAL EVALUATION - ESTABLISHED PATIENT Routine 10/14/2021 12:00 AM EDT HM PAP/HPV Routine 02/11/2021 INTRAORAL - COMPLETE SERIES OF RADIOGRAPHIC IMAGES Routine 04/18/2018 12:00 AM EST from Last 3 Months or Most Recently Relevant to Health Maintenance Results * Referral to Neurosurgery (04/12/2024) us Carlo Santana MD OUTPATIENT REFERRAL ORDERAB LES Final Result * (ABNORMAL) Comprehensive Metabolic Panel, Fasting (04/11/2024 11:20 AM EST) Sodium 137 135 - 145 mmol/L [facility] Potassium 4.1 3.3 - 5.1 mmol/L [facility] Chloride 106 96 - 108 mmol/L [facility] Carbon Dioxide 27 22 - 29 mmol/L [facility] Anion Gap 8(L) 12 - 20 [facility] Urea Nitrogen (BUN) 10 9 - 16 mg/dL [facility] Creatinine, Serum 0.59 0.5 - 1.4 mg/dL [facility] Estimated Glomerular Filt Rate >60 [facility] Comment:Chronic Kidney Disea se: Estimated GFR < 60 mL/min/[id number] Kidney Disease: Estimated GFR < 15 mL/min/1.73m2 Glucose Fasting 86 60 - 99 mg/dL [facility] Calcium 8.7 8.4 - 10.2 mg/dL [facility] Bilirubin, Total 0.2 0.0 - 1.0 mg/dL [facility] Aspartate Amino Transferase 39(H) 5 - 31 U/L [facility] Alanine Aminotransferase 94(H) 0 - 31 U/L [facility] Total Protein 6.7 6.5 - 8.0 g/dL [facility] Albumin Level 3.8 3.5 - 5.0 g/dL [facility] Alkaline Phosphatase 63 39 - 117 U/L [facility] 04/11/2024 11:2 0 AM EST 04/11/2024 2:48 PM EST us Carlo Santana MD LAB BLOOD ORDERABLES Final Result Performing Organization Address [facility]/ZIP Co de Phone Number [facility] [address] [place] [phone] * Vitamin B12/Folate, Serum Panel (04/11/2024 11:20 AM EST) Pathologist [facility] Vitamin B12 462 200 - 900 pg/mL [facility] Comment:NORMAL 200-900 PG/ML INDETERMINATE 160-199 PG/ML DEFICIENT < 160 PG/ML Folate 11.6 > or = 4.0 ng/mL [facility] Comment:Reference Values:> o r = 4.0 ng/mL< 4.0 ng/mL suggests folate deficiency Methotrexate, aminopterin and folinic acid(leucovorin) are chemotherapeutic agents whose molecularstructures are similar to folate; therefore, the Architectfolate assay cannot be used for patients using these drugs. Blood Venous blood specimen / Unknown 04/11/2024 11:20 AM EST 04/11/2024 2:48 PM EST us Carlo Santana MD LAB BLOOD ORDERABLES Final Result Performing Organization Address [facility] Co de Phone Number [facility] [address] [place] [phone] * T-SPOT??.TB (04/11/2024 11:20 AM EST) T Spot TB Negative Negative [facility] Comment:A negative test resu lt does not exclude the possibilityof exposure to or infection with Mycobacteriumtuberculosis (M. tuberculosis). Patients with recentexposure to TB infected individuals exhibiting anegative T-SPOT.TB result should be considered forretesting within 6 weeks or if other relevant clinicalsymptoms indicate. Results from T-SPOT.TB testing mustbe used in conjunction with each individual'sepidemiological history, current medical status,and results of other diagnostic evaluations.The T-SPOT.TB test is qualitative and results arereported as positive, borderline, or negative, giventhat the test controls perform as expected. In linewith the Centers for Disease Control and Prevention's2010 recommendation to report quantitative measurementsalongside the qualitative result, the laboratoryprovides spot counts for informational purposes only.The T-SPOT.TB test should not be interpreted as aquantitative test. TS PANEL A 0 [facility] TS PANEL B 1 [facility] Negative Control Passed [facility] Positive Control Passed [facility] Comment:For additional infor mation, please refer [email or web address].[employer]/faq/[email or web address](This link is being provided for informational/educational purposes only.)THIS TEST WAS PERFORMED AT:[employer] [id number] [place] [id number] KOENIG MD,PHD 04/11/2024 11:2 0 AM EST 04/11/2024 2:39 PM EST us Carlo Santana MD LAB BLOOD ORDERABLES Final Result Performing Organization Address City/[facility]/ZIP Co de Phone Number [facility] [address] [place] [phone] * Creatinine, Serum (04/11/2024 11:20 AM EST) Creatinine, Serum 0.60 0.5 - 1.4 mg/dL [facility] Estimated Glomerular Filt Rate >60 [facility] Comment:Chronic Kidney Disea se: Estimated GFR < 60 mL/min/[id number] Kidney Disease: Estimated GFR < 15 mL/min/1.73m2 04/11/2024 11:2 0 AM EST 04/11/2024 2:48 PM EST us Generic External Data Provider LAB BLOOD ORDERAB LES Final Result Performing Organization Address City/[facility]/ZIP Co de Phone Number [facility] [address] [place] [phone] * (ABNORMAL) CBC auto differential (04/11/2024 11:20 AM EST) White Blood Count 7.0 4.8 - 10.8 X10*3/uL [facility] Red Blood Count 3.61(L) 4.20 - 5.50 X10*6/uL [facility] Hemoglobin 11.5(L) 12.0 - 16.0 g/dl [facility] Hematocrit 34.3(L) 37.0 - 47.0 % [facility] Mean Corpuscular Volume 95.0 80.0 - 98.0 fL [facility] Mean Corpuscular Hemoglobin 31.9 27.0 - 33.0 pg [facility] Mean Corpuscular HGB Conc 33.5 31.0 - 35.0 g/dl [facility] Red Cell Distribution Width 13.3 11.0 - 16.0 % [facility] Platelet Count 396 160 - 400 X10*3/uL [facility] Mean Platelet Volume 9.3(L) 9.4 - 12.3 fL [facility] Neutrophils Percent Auto 62.0 45 - 73 % [facility] Imm Gran Pct Auto 0.3 0.0 - 0.4 % [facility] Lymphocytes Percent Auto 30.0 20 - 40 % [facility] Monocytes Percent Auto 4.7 2 - 11 % [facility] Eosinophils Percent Auto 2.3 0 - 4 % [facility] Basophils Percent Auto 0.7 0 - 2 % [facility] [facility] NRBC Pct Auto 0.0 0.0 - 0.2 /100WBC [facility] Neutrophils Absolute Auto 4.4 2.0 - 8.3 x10*3/uL [facility] Imm Gran Abs Auto 0.02 0.00 - 0.03 X10*3/uL [facility] Lymphocytes Absolute Auto 2.1 1.2 - 4.9 X10*3/uL [facility] Monocytes Absolute Auto 0.3 0.1 - 1.2 X10*3/uL [facility] Eosinophils Absolute Auto 0.2 0.0 - 0.4 X10*3/uL [facility] Basophils Absolute Auto 0.1 0.0 - 0.2 X10*3/uL [facility] NRBC Abs Auto 0.000 0.0 - 0.012 X10*3/uL [facility] Blood Venous blood specimen / Unknown 04/11/2024 11:20 AM EST 04/11/2024 2:39 PM EST us Carlo Santana MD LAB BLOOD ORDERABLES Final Result Performing Organization Address [facility]/ZIP Co de Phone Number [facility] [address] [place] [phone] * BUN (Blood Urea Nitrogen) (04/11/2024 11:20 AM EST) Urea Nitrogen (BUN) 11 9 - 16 mg/dL [facility] 04/11/2024 11:2 0 AM EST 04/11/2024 2:48 PM EST us Generic External Data Provider LAB BLOOD ORDERAB LES Final Result Performing Organization Address [facility] Co de Phone Number [facility] [address] [place] [address] [phone] * Magnesium (04/11/2024 11:20 AM EST) Magnesium 2.0 1.6 - 2.6 mg/dL [facility] Blood Venous blood specimen / Unknown 04/11/2024 11:20 AM EST 04/11/2024 2:48 PM EST us Carlo Santana MD LAB BLOOD ORDERABLES Final Result Performing Organization Address [facility] Co de Phone Number [facility] [address] [place] [phone] * CT Enterography Abdomen Pelvis w/ Contrast (04/05/2024 10:51 AM EST) Anatomical Region Laterality Modality Computed Tomogra phy 04/05/2024 10:5 1 AM EST Narrative 04/05/2024 11:37 AM EST ? [facility] ?[address] ?[place] [address] ? CT Scan Report ? Signed ? Patient: Peri Sandy ?MR#: [id number] ?? [id number] ? : 1980 ?Acct:[id number] ? Age/Sex: 43 / F ?ADM Date: 04/05/24 ? Loc: HO.CT ? Attending Dr: Cristel ARIAS ? Ordering Physician: Cristel Rendon ?? Date of Service: 04/05/24 ?? Procedure(s): CT enterography ?? Accession Number(s): [id number] ? cc: Carlo Santana MD; Cristel Rendon ? Report Number: ?? [id number]: Total DLP = ??295.00 mGy-cm ?? EXAMINATION: [...] DD/ 1051 ? TD/TT: 04/05/24 1108 ? Speeder Operator: ? Procedure Note Donotuseinterpreter, Image - 04/05/[address] [address] [address] Scan Report Signed Patient: Peri Sandy MMR#: [id number] : 1980Acct:[id number] Age/Sex: 43 / FADM Date: 04/05/24 Loc: HO.CT Attending Dr: Cristel Rendon [facility]- Ordering Physician: Cristel Rendon Date of Service: 04/05/24 Procedure(s): CT enterography Accession Number(s): [id number] cc: Carlo Santana MD; Cristel Rendon [facility]- Report Number: [id number]: Total DLP = 295.00 mGy-cm EXAMINATION: CT [...] 04/05/24 1134 DD/ 1051 TD/TT: 04/05/24 1108 Speeder Operator: [facility] External Provider IMG CT PROCEDURES Final Result * Hepatitis C Antibody with Reflex to HCV, RNA, Quantitative, Real-Time PCR (01/26/2024 11:58 AM EST) Hepatitis C Antibody Nonreactive Nonreactive [facility] Comment:Antibodies to HCV no t detected; does not exclude early acuteHCV infection. Blood Venous blood specimen / Unknown 01/26/2024 11:58 AM EST 01/26/2024 2:10 PM EST Carlo Santana MD LAB BLOOD ORDERABLES Final Result Performing Organization Address [facility] Co de Phone Number [facility] [address] [place] [phone] * HIV-1/2 Antigen and Antibodies, Fourth Generation, with Reflexes (01/26/2024 11:58 AM EST) HIV AB/AG Nonreactive Nonreactive [facility] Comment:HIV-1 p24 Ag and/or HIV-1/HIV-2 Ab not detected.A test result that is nonreactive does not exclude thepossibility of exposure to or infection with HIV-1 and/orHIV-2. Nonreactive results in this assay for individualswith prior exposure to HIV-1 and/or HIV-2 may be due toantigen and antibody levels that are below the limit ofdetection of this assay.The [employer] HIV Ag/Ab Combo assay result andsupplemental assay results should be interpreted inconjunction with the patient's clinical presentation,history and other laboratory results. If the results areinconsistent with clinical evidence, additional testing issuggested to confirm the result. Blood Venous blood specimen / Unknown 01/26/2024 11:58 AM EST 01/26/2024 2:10 PM EST us Carlo Santana MD LAB BLOOD ORDERABLES Final Result Performing Organization Address [facility] Co de Phone Number [facility] [address] [place] [address] [phone] * Pap Smear (02/11/2021) Pap Negative for intraephithelial lesion or malignancy Negative for intraephithelial lesion or malignancy, Other HPV Undetected Undetected, Indeterminate, Quantitative, Not Detected us Historical Provider HEALTH MAINTENANCE Final Result from Last 3 Months or Most Recently Relevant to Health Maintenance Insurance [place] [id number] [place] Care Teams Counter Professional Relationship Specialty Start Date End Date Carlo Santana MD [address] [place] [address] Deana LEATHA PCP - General Internal Medicine 12/28/17
--- OUTSIDE RECORDS SUMMARY | 2024-06-22 18:50 | XMS_ITS | Encounter Summary ---
Author Organization [employer] Address [address] [facility] 7 [place] [address] Care Team Providers Care Director Regulatory Compliance Name Role Phone Carlo Santana MD Primary Care Provider +1- [phone] Reason for Visit * Reason Onset Date Comments Medication Question 06/11/2024 Encounter Details Date Type Department Care Team ([facility] st Contact Info) Description 06/11/2024 Telephone [facility] MEDICINE [address] [place] [address] Carlo Santana MD [address] [place], [place] [phone] Medication Question Social History Tobacco Use Types [...] * Telephone Encounter - Grabiel Taylor - 06/11/2024 8:24 AM EDT Tc from pt requesting a call back to Discuss medication oxyCODONE (Roxicodone) 10 MG immediate release tablet. Contact pt at [phone] documented in this encounter Plan of Treatment Upcoming Encounters Date Type Department Care Team ([facility] st Contact Info) Description 07/12/2024 9:30 AM EDT Clinical Support [facility] MED & PEDS 505 [place] [address] Fariba Gandhi RN 505 [place] [address] documented as of this encounter Visit Diagnoses Not on filedocumented in this encounter Additional Health Concerns Assessment Noted Time PHQ-9 Depression Total Score: 15 024 11:50 AM EST documented as of this encounter Care Teams Director Regulatory Compliance Relationship Specialty Start Date End Date Carlo Santana MD 505 [place] [address] PCP - General Internal Medicine 12/28/17 documented as of this encounter
--- OUTSIDE RECORDS SUMMARY | 2024-06-22 18:50 | XMS_ITS | Encounter Summary ---
Author Organization [employer] Address [address] [place] [address] 7 [place] [address] Care Team Providers Care Head Bellhop Captain Name Role Phone Carlo Santana MD Primary Care Provider +1- [phone] Reason for Visit * Reason Onset Date Comments Medication Question 01/25/2023 Encounter Details Date Type Department Care Team ([facility] st Contact Info) Description 01/25/2023 Telephone [facility]C MED & PEDS [address] [place] [address] Carlo Santana MD 505 [place] [address] Medication Question Social History Tobacco Use Types [...] returning phone call Please contact pt at [phone] * Telephone Encounter - Rand Savage RN [...] losing any weight. Please contact pt at [phone] documented in this encounter Plan of Treatment Upcoming Encounters Date Type Department Care Team (Late st Contact Info) Description 07/12/2024 9:30 AM EDT Clinical Support [facility] MED & PEDS [address] [place] [address] Fariba Gandhi, RN 505 [place] [address] documented as of this encounter Visit Diagnoses Diagnosis Low back pain radiating down leg documented in this encounter Additional Health Concerns Assessment Noted Time PHQ-9 Depression Total Score: 3 06/04/19 23 3:42 PM EDT documented as of this encounter Care Teams Head Bellhop Captain Relationship Specialty Start Date End Date Carlo Santana MD [address] [place] [address] PCP - General Internal Medicine 12/28/17 documented as of this encounter
--- OUTSIDE RECORDS SUMMARY | 2024-06-22 18:50 | XMS_ITS | Encounter Summary ---
Author Organization [employer] Address [address] [facility] 7 [place] [address] Care Team Providers Care Scraper Loader Operator Name Role Phone Carlo Santana MD Primary Care Provider +1- [phone] Reason for Visit * Reason Onset Date Comments Med Refill 02/20/2024 Encounter Details Date Type Department Care Team ([facility] st Contact Info) Description 02/20/2024 Telephone [facility] MEDICINE [address] [place] [address] Carlo Santana MD 505 [place], [place] [phone] Med Refill Social History Tobacco Use Types [...] PM EST Disposable underpads order sent to [facility] and signed rx sent to scan pending decision. * Telephone Encounter - Grabiel Taylor - 02/20/2024 9:08 AM EST Tc from pt stating that the doctor stated that he would prescribe disposable bed pads. Pt would like for them to go to [facility]. If any question you can contact pt at [phone] documented in this encounter Plan of Treatment Upcoming Encounters Date Type Department Care Team ([facility] st Contact Info) Description 07/12/2024 9:30 AM EDT Clinical Support [facility] MED & PEDS 505 [place] [address] Fariba Gandhi, RN 505 [place] [address] documented as of this encounter Visit Diagnoses Not on filedocumented in this encounter Additional Health Concerns Assessment Noted Time PHQ-9 Depression Total Score: 15 024 11:50 AM EST documented as of this encounter Care Teams Scraper Loader Operator Relationship Specialty Start Date End Date Carlo Santana MD [address] [place] [address] PCP - General Internal Medicine 12/28/17 documented as of this encounter
--- OUTSIDE RECORDS SUMMARY | 2024-06-22 18:50 | XMS_ITS | Encounter Summary ---
Author Organization [employer] Address [address] [facility] 7 [place] [address] Care Team Providers Care Penology Professor Name Role Phone Carlo Santana MD Primary Care Provider +1- [phone] Reason for Visit * Reason Onset Date Comments Med Refill 06/21/2024 Encounter Details Date Type Department Care Team (Late st Contact Info) Description 06/21/2024 Telephone [facility] MEDICINE [address] [place] [address] Carlo Santana MD 505 [place], [place] [phone] Med Refill Social History Tobacco Use Types [...] * Telephone Encounter - Олег Neil - 06/21/2024 1:03 PM EDT TC from pt requesting medication refill. Medications needing refill : lidocaine (Lidoderm) 5 % patch To be sent to: [facility]/pharmacy #[id number] - [place]IPS - [address] [facility] documented in this encounter Plan of Treatment Upcoming Encounters Date Type Department Care Team ([facility] Contact Info) Description 07/12/2024 9:30 AM EDT Clinical Support [facility] CHC MED & PEDS 505 [place] [address] Fariba Gandhi RN 505 [place] [address] documented as of this encounter Visit Diagnoses Not on filedocumented in this encounter Additional Health Concerns Assessment Noted Time PHQ-9 Depression Total Score: 15 024 11:50 AM EST documented as of this encounter Care Teams Penology Professor Relationship Specialty Start Date End Date Carlo Santana MD 505 [place] [address] PCP - General Internal Medicine 12/28/17 documented as of this encounter
--- OUTSIDE RECORDS SUMMARY | 2024-06-22 18:50 | XMS_ITS | Encounter Summary ---
Author Organization [employer] Address [address] [place] [address] 7 [place] [address] Care Team Providers Care Health Director Name Role Phone Carlo Santana MD Primary Care Provider +1- [phone] Reason for Visit * Reason Onset Date Comments Prior Authorization 09/14/2023 Encounter Details Date Type Department Care Team ([facility] st Contact Info) Description 09/14/2023 Telephone [facility] CHC MED & PEDS [address] [place] [address] Carlo Santana MD 505 [place] [address] Prior Authorization Social History Tobacco Use Types [...] Description 07/12/2024 9:30 AM EDT Clinical Support [facility] CHC MED & PEDS [address] [place] [address] Fariba Gandhi, RN 505 [place] [address] documented as of this encounter Visit Diagnoses Diagnosis Chronic left-sided low back pain with left-sided sciatica documented in this encounter Additional Health Concerns Assessment Noted Time PHQ-9 Depression Total Score: 3 06/04/19 23 3:42 PM EDT documented as of this encounter Care Teams Health Director Relationship Specialty Start Date End Date Carlo Santana MD [address] [place] [address] PCP - General Internal Medicine 12/28/17 documented as of this encounter
--- OUTSIDE RECORDS SUMMARY | 2024-06-22 18:50 | XMS_ITS | Encounter Summary ---
Author Organization [employer] Address [address] [facility] 7 [place] [address] Care Team Providers Care Art Gilder Name Role Phone Carlo Santana MD Primary Care Provider +1- [phone] Reason for Visit * Reason Onset Date Comments Referral 07/26/2022 Encounter Details Date Type Department Care Team (Late st Contact Info) Description 07/26/2022 Telephone [facility] MEDICINE [address] [place] [address] Carlo Santana MD [address] [place], [place] [phone] Referral Social History Tobacco Use Types Packs/Day [...] was not satisfied. Please contact pt at [phone] documented in this encounter Plan of Treatment Upcoming Encounters Date Type Department Care Team (Late st Contact Info) Description 07/12/2024 9:30 AM EDT Clinical Support [facility] MED & PEDS 505 [place] [address] Fariba Gandhi, RN 505 [place] [address] documented as of this encounter Visit Diagnoses Not on filedocumented in this encounter Additional Health Concerns Assessment Noted Time PHQ-9 Depression Total Score: 3 06/04/19 23 3:42 PM EDT documented as of this encounter Care Teams Art Gilder Relationship Specialty Start Date End Date Carlo Santana MD [address] [place] [address] PCP - General Internal Medicine 12/28/17 documented as of this encounter
--- OUTSIDE RECORDS SUMMARY | 2024-06-22 18:50 | XMS_ITS | Encounter Summary ---
Author Organization [employer] Address [address] [facility] 7 [place] [address] Care Team Providers Care Assembler Dc Field Ring Name Role Phone Carlo Santana MD Primary Care Provider +1- [phone] Reason for Visit * Reason Onset Date Comments Med Refill 06/14/2024 Encounter Details Date Type Department Care Team (Late st Contact Info) Description 06/14/2024 Telephone [facility] MEDICINE 230 [place] [address] Carlo Santana MD 505 [place], [place] [phone] Med Refill Social History Tobacco Use Types [...] encounter Miscellaneous Notes * Telephone Encounter - Urvashi Martinez - 06/14/2024 8:10 AM EDT TC from pt requesting medication refill. Medications needing refill : oxyCODONE (Roxicodone) 10 MG immediate release tablet To be sent to: [facility] documented in this encounter Plan of Treatment Upcoming Encounters Date Type Department Care Team ([facility] st Contact Info) Description 07/12/2024 9:30 AM EDT Clinical Support [facility] MED & PEDS [address] [place] [address] Fariba Gandhi, HUGO 505 [place] [address] documented as of this encounter Visit Diagnoses Not on filedocumented in this encounter Additional Health Concerns Assessment Noted Time PHQ-9 Depression Total Score: 15 024 11:50 AM EST documented as of this encounter Care Teams Assembler Dc Field Ring Relationship Specialty Start Date End Date Carlo Santana MD 505 [place] [address] PCP - General Internal Medicine 12/28/17 documented as of this encounter
--- OUTSIDE RECORDS SUMMARY | 2024-06-22 18:50 | XMS_ITS | Encounter Summary ---
Author Organization [employer] Address [address] [facility] 7t [place] [address] Care Team Providers Care Public Speaking Coach Name Role Phone Carlo Santana MD Primary Care Provider +1 [phone] Encounter Details Date Type Department Care Team (Latest Contact Info) Description 06/22/2024 Travel Social History Tobacco Use Types Packs/Day [...] t he electric, gas, oil or water [employer] threatened to shut off services in your [...] Description 07/12/2024 9:30 AM EDT Clinical Support [facility] CHC MED & PEDS 505 [place] [address] Fariba Gandhi, RN 505 [place] [address] documented as of this encounter Visit Diagnoses Not on filedocumented in this encounter Additional Health Concerns Assessment Noted Time PHQ-9 Depression Total Score: 15 024 11:50 AM EST documented as of this encounter Care Teams Public Speaking Coach Relationship Specialty Start Date End Date Carlo Santana MD 505 [place] [address] PCP - General Internal Medicine 12/28/17 documented as of this encounter
--- OUTSIDE RECORDS SUMMARY | 2024-06-22 18:50 | XMS_ITS | Encounter Summary ---
Author Organization [employer] [facility] Address [address] [place] [address] 7 [place] [address] Care Team Providers Care Bottling Room Worker Name Role Phone Carlo Santana MD Primary Care Provider +1- [phone] Encounter Details Date Type Department Care Team (Latest Contact Info) Description 10/14/2021 Abstract [facility] CONVERSIONS Dental, Provider, DDS Social History [...] Description 07/12/2024 9:30 AM EDT Clinical Support [facility] CHC MED & PEDS [address] [place] [address] Fariba Gandhi, HUGO [address] [place] [address] documented as of this encounter Visit Diagnoses Not on filedocumented in this encounter Care Teams Bottling Room Worker Relationship Specialty Start Date End Date Carlo Santana MD 505 [place] [address] PCP - General Internal Medicine 12/28/17 documented as of this encounter
--- OUTSIDE RECORDS SUMMARY | 2024-06-22 18:50 | XMS_ITS | Encounter Summary ---
Author Organization [employer] Address [address] [place] [address] 7 [place] [address] Care Team Providers Care Hris Manager Name Role Phone Carlo Santana MD Primary Care Provider +1- [phone] Encounter Details Date Type Department Care Team ([facility] st Contact Info) Description 06/14/2024 Orders Only [facility] CHC MED & PEDS 505 [place], [place] [phone] Carlo Santana MD 505 [place] [address] Chronic left-sided low back pain with left-sided [...] 9:30 AM EDT Clinical Support [facility] MED & PEDS 505 [place] [address] Fariba Gandhi, RN 505 [place] [address] documented as of this encounter Visit Diagnoses Diagnosis Chronic left-sided low back pain with left-sided sciatica documented in this encounter Additional Health Concerns Assessment Noted Time PHQ-9 Depression Total Score: 15 024 11:50 AM EST documented as of this encounter Care Teams Hris Manager Relationship Specialty Start Date End Date Carlo Santana MD [address] [place] [address] PCP - General Internal Medicine 12/28/17 documented as of this encounter
--- OUTSIDE RECORDS SUMMARY | 2024-06-22 18:50 | XMS_ITS | Encounter Summary ---
Author Organization [employer] Address [address] [facility] 7 [place] [address] Care Team Providers Care Mold Maker Plaster Name Role Phone Carlo Santana MD Primary Care Provider +1- [phone] Reason for Visit * Reason Onset Date Comments Call Back Request 06/21/2024 Encounter Details Date Type Department Care Team ([facility] st Contact Info) Description 06/21/2024 Telephone [facility] MEDICINE [address] [place] [address] Carlo Santana MD [address] [facility] [address] [place], [place] [phone] Call Back Request Social History Tobacco Use [...] Telephone Encounter - Carlo Santana MD - 06/22/2024 10:20 AM EDT FYI. * Telephone Encounter - Олег Neil - 06/21/2024 1:04 PM EDT TC from pt requesting a call back from nurse Link documented in this encounter Plan of Treatment Upcoming Encounters Date Type Department Care Team (Late st Contact Info) Description 07/12/2024 9:30 AM EDT Clinical Support [facility] MED & PEDS [address] [place] [address] Fariba Gandhi RN 505 [place] [address] documented as of this encounter Visit Diagnoses Diagnosis Chronic left-sided low back pain with left-sided sciatica documented in this encounter Additional Health Concerns Assessment Noted Time PHQ-9 Depression Total Score: 15 024 11:50 AM EST documented as of this encounter Care Teams Mold Maker Plaster Relationship Specialty Start Date End Date Carlo Santana MD [address] [place] [address] PCP - General Internal Medicine 12/28/17 documented as of this encounter
--- OUTSIDE RECORDS SUMMARY | 2024-06-22 18:50 | XMS_ITS | Encounter Summary ---
Author Organization [employer] Address [address] [facility] 7 [place] [address] Care Team Providers Care Licensed Nurse Practitioner Name Role Phone Carlo Santana MD Primary Care Provider +1- [phone] Reason for Visit * Reason Onset Date Comments Med Refill 02/28/2024 Medication Question 02/28/2024 Encounter Details Date Type Department Care Team ([facility] st Contact Info) Description 02/28/2024 Telephone [facility] MEDICINE 230 [place] [address] Carlo Santana MD [address] [place], [place] [phone] Med Refill; Medication Question Social History Tobacco [...] tablet If any questions contact pt at [phone] documented in this encounter Plan of Treatment Upcoming Encounters Date Type Department Care Team ([facility] st Contact Info) Description 07/12/2024 9:30 AM EDT Clinical Support [facility] MED & PEDS 505 [place] [address] Fariba Gandhi RN 505 [place] [address] documented as of this encounter Visit Diagnoses Not on filedocumented in this encounter Additional Health Concerns Assessment Noted Time PHQ-9 Depression Total Score: 15 024 11:50 AM EST documented as of this encounter Care Teams Licensed Nurse Practitioner Relationship Specialty Start Date End Date Carlo Santana MD 505 [place] [address] PCP - General Internal Medicine 12/28/17 documented as of this encounter
--- OUTSIDE RECORDS SUMMARY | 2024-06-22 18:50 | XMS_ITS | Encounter Summary ---
Author Organization [email or web address] Address 75 [facility] 7 [place] [address] Care Team Providers Care Logistics/Shipper Name Role Phone Carlo Santana MD Primary Care Provider +1- [phone] Reason for Visit * Reason Onset Date Comments triage 08/10/2022 Encounter Details Date Type Department Care Team (Late st Contact Info) Description 08/10/2022 Telephone [facility] MEDICINE 230 [place] [address] Carlo Santana MD [address] [facility] [address] [place], [place] [phone] triage Social History Tobacco Use Types Packs/Day [...] Description 07/12/2024 9:30 AM EDT Clinical Support [facility] MED & PEDS 505 [place] [address] Fariba Gandhi RN 505 [place] [address] documented as of this encounter Visit Diagnoses Not on filedocumented in this encounter Additional Health Concerns Assessment Noted Time PHQ-9 Depression Total Score: 3 06/04/19 23 3:42 PM EDT documented as of this encounter Care Teams Logistics/Shipper Relationship Specialty Start Date End Date Carlo Santana MD 505 [place] [address] PCP - General Internal Medicine 12/28/17 documented as of this encounter
--- OUTSIDE RECORDS SUMMARY | 2024-06-22 18:50 | XMS_ITS | Encounter Summary ---
Author Organization [employer] Address 75 [facility] 7 [place] [address] Care Team Providers Care Mechanical Systems Design Engineer Name Role Phone Carlo Santana MD Primary Care Provider +1- [phone] Reason for Visit * Reason Onset Date Comments Appointment Request 09/20/2023 Encounter Details Date Type Department Care Team ([facility] st Contact Info) Description 09/20/2023 Telephone [facility] MEDICINE 230 [place] [address] Carlo Santana MD [address] [facility] [address] [place], [place] [phone] Appointment Request Social History Tobacco Use Types [...] Description 07/12/2024 9:30 AM EDT Clinical Support [facility] MED & PEDS 505 [place] [address] Fariba Gandhi RN 505 [place] [address] documented as of this encounter Visit Diagnoses Not on filedocumented in this encounter Additional Health Concerns Assessment Noted Time PHQ-9 Depression Total Score: 3 06/04/19 23 3:42 PM EDT documented as of this encounter Care Teams Mechanical Systems Design Engineer Relationship Specialty Start Date End Date Carlo Santana MD 505 [place] [address] PCP - General Internal Medicine 12/28/17 documented as of this encounter
--- OUTSIDE RECORDS SUMMARY | 2024-06-22 18:50 | XMS_ITS | Encounter Summary ---
Author Organization [employer] Address [address] [place] [address] 7 [place] [address] Care Team Providers Care Senior Communications Engineer Name Role Phone Carlo Santana MD Primary Care Provider +1- [phone] Encounter Details Date Type Department Care Team ([facility] st Contact Info) Description 06/22/2024 Telephone [facility] MED & PEDS 505 [place] [address] Fariba Gandhi, HUGO 505 [place] [address] Social History Tobacco Use Types Packs/Day Years [...] Telephone Encounter - Fariba Gandhi RN - 06/22/2024 10:53 AM EDT TC to pt again. Pt stated she had to file a restraining order against her boyfriend and is currently out of town, asking to r/s TRAY CASTING MACHINE OPERATOR appt. R/s from 07/05/24 to 07/12/24 @ 9:30am. documented in this encounter Plan of Treatment Upcoming Encounters Date Type Department Care Team ([facility] st Contact Info) Description 07/12/2024 9:30 AM EDT Clinical Support [facility] MED & PEDS [address] [place] [address] Fariba Gandhi RN 505 [place] [address] documented as of this encounter Visit Diagnoses Not on filedocumented in this encounter Additional Health Concerns Assessment Noted Time PHQ-9 Depression Total Score: 15 024 11:50 AM EST documented as of this encounter Care Teams Senior Communications Engineer Relationship Specialty Start Date End Date Carlo Santana MD 505 [place] [address] PCP - General Internal Medicine 12/28/17 documented as of this encounter
--- OUTSIDE RECORDS SUMMARY | 2024-06-22 18:50 | XMS_ITS | Encounter Summary ---
Author Organization [employer] Address 75 [facility] 7 [place] [address] Care Team Providers Care Flux Core Welder Name Role Phone Carlo Santana MD Primary Care Provider +1- [phone] Reason for Visit * Reason Onset Date Comments Med Refill 02/20/2024 Encounter Details Date Type Department Care Team ([facility] st Contact Info) Description 02/20/2024 Telephone [facility] MEDICINE 230 [place] [address] Carlo Santana MD 505 [place], [place] [phone] Med Refill Social History Tobacco Use Types [...] (1000 UT) capsule To be sent to: [facility]/pharmacy #[id number] LEATHA PHILLIPS - [address] [facility] documented in this encounter Plan of Treatment Upcoming Encounters Date Type Department Care Team ([facility] st Contact Info) Description 07/12/2024 9:30 AM EDT Clinical Support [facility] CH[facility] MED & PEDS 505 [place] [address] Fariba Gandhi, HUGO 505 [place] [address] documented as of this encounter Visit Diagnoses Not on filedocumented in this encounter Additional Health Concerns Assessment Noted Time PHQ-9 Depression Total Score: 15 024 11:50 AM EST documented as of this encounter Care Teams Flux Core Welder Relationship Specialty Start Date End Date Carlo Santana MD 505 [facility] [place] [address] PCP - General Internal Medicine 12/28/17 documented as of this encounter
--- OUTSIDE RECORDS SUMMARY | 2024-06-22 18:50 | XMS_ITS | Encounter Summary ---
Author Organization [employer] Address [address] [place] [address] 7 [place] [address] Care Team Providers Care Director Of Child Welfare Services Name Role Phone Carlo Santana MD Primary Care Provider +1- [phone] Encounter Details Date Type Department Care Team ([facility] st Contact Info) Description 01/19/2023 Orders Only [facility] CHC MED & PEDS 505 [place], [place] [phone] Carlo Santana MD 505 [place], [place] [phone] Neck pain (Primary Dx); Chronic left-sided low [...] Upcoming Encounters Date Type Department Care Team ([facility] st Contact Info) Description 07/12/2024 9:30 AM EDT Clinical Support [facility] MED & PEDS 505 [place] [address] Fariba Gandhi RN 505 [place] [address] documented as of this encounter Visit Diagnoses Diagnosis Neck pain- Primary Cervicalgia Chronic left-sided low back pain with left-sided sciatica documented in this encounter Additional Health Concerns Assessment Noted Time PHQ-9 Depression Total Score: 3 06/04/19 23 3:42 PM EDT documented as of this encounter Care Teams Director Of Child Welfare Services Relationship Specialty Start Date End Date Carlo Santana MD 505 [place] [address] PCP - General Internal Medicine 12/28/17 documented as of this encounter
--- OUTSIDE RECORDS SUMMARY | 2024-06-22 18:50 | XMS_ITS | Encounter Summary ---
Author Organization [employer] Address [address] [place] [address] 7 [place] [address] Care Team Providers Care Moisture Meter Reader Name Role Phone Carlo Santana MD Primary Care Provider +1- [phone] Encounter Details Date Type Department Care Team ([facility] st Contact Info) Description 02/08/2024 Orders Only [facility] CHC MED & PEDS 505 [place], [place] [phone] Carlo Santana MD 505 [place], [place] [phone] [place] (generalized anxiety disorder) (Primary Dx) Social [...] Description 07/12/2024 9:30 AM EDT Clinical Support [facility] MED & PEDS 505 [place] [address] Fariba Gandhi, HUGO 505 [place] [address] documented as of this encounter Visit Diagnoses Diagnosis [place] (generalized anxiety disorder)- Primary Generalized anxiety disorder documented in this encounter Additional Health Concerns Assessment Noted Time PHQ-9 Depression Total Score: 15 024 11:50 AM EST documented as of this encounter Care Teams Moisture Meter Reader Relationship Specialty Start Date End Date Carlo Santana MD 505 [place] [address] PCP - General Internal Medicine 12/28/17 documented as of this encounter
--- OUTSIDE RECORDS SUMMARY | 2024-06-22 18:50 | XMS_ITS | Encounter Summary ---
Author Organization [employer] Address [address] [place] [address] 7 [place] [address] Care Team Providers Care Sign Builder Supervisor Name Role Phone Carlo Santana MD Primary Care Provider +1- [phone] Reason for Visit * Reason Onset Date Comments Appointment Request 09/16/2023 Encounter Details Date Type Department Care Team ([facility] st Contact Info) Description 09/16/2023 Telephone [facility] CHC MED & PEDS 505 [place] [address] Carlo Santana MD 505 [place] [address] Appointment Request Social History Tobacco Use Types [...] requesting telehealth with PCP to discuss medication. Hot Metal Crane Operator attempted to schedule for November but pt declined and stated would like a sooner appointment. Denied triage. Contact pt at [phone] documented in this encounter Plan of Treatment Upcoming Encounters Date Type Department Care Team (Late st Contact Info) Description 07/12/2024 9:30 AM EDT Clinical Support [facility] CH[facility] MED & PEDS 505 [place] [address] Fariba Gandhi, HUGO 505 [place] [address] documented as of this encounter Visit Diagnoses Not on filedocumented in this encounter Additional Health Concerns Assessment Noted Time PHQ-9 Depression Total Score: 3 06/04/19 23 3:42 PM EDT documented as of this encounter Care Teams Sign Builder Supervisor Relationship Specialty Start Date End Date Carlo Snatana MD 505 [place] [address] PCP - General Internal Medicine 12/28/17 documented as of this encounter
--- OUTSIDE RECORDS SUMMARY | 2024-06-22 18:50 | XMS_ITS | Encounter Summary ---
Author Organization [employer] Address [address] [place] [address] 7 [place] [address] Care Team Providers Care Scene Shifter Name Role Phone Carlo Santana MD Primary Care Provider +1- [phone] Reason for Visit * Reason Onset Date Comments Results 02/14/2023 Encounter Details Date Type Department Care Team ([facility] st Contact Info) Description 02/14/2023 Telephone [facility] MED & PEDS 505 [place] [address] Carlo Santana MD 505 [place] [address] Results Social History Tobacco Use Types Packs/Day [...] hip on 02/09. Please contact pt at [phone] documented in this encounter Plan of Treatment Upcoming Encounters Date Type Department Care Team (Late st Contact Info) Description 07/12/2024 9:30 AM EDT Clinical Support [facility] CH[facility] MED & PEDS 505 [place] [address] Fariba Gandhi, HUGO 505 [place] [address] documented as of this encounter Visit Diagnoses Not on filedocumented in this encounter Additional Health Concerns Assessment Noted Time PHQ-9 Depression Total Score: 3 06/04/19 23 3:42 PM EDT documented as of this encounter Care Teams Scene Shifter Relationship Specialty Start Date End Date Carlo Santana MD 505 [place] [address] PCP - General Internal Medicine 12/28/17 documented as of this encounter
--- OUTSIDE RECORDS SUMMARY | 2024-06-22 18:50 | XMS_ITS | Encounter Summary ---
Author Organization [employer] Address [address] [facility] 7 [place] [address] Care Team Providers Care Special Weapons And Tactics Officer Name Role Phone Carlo Santana MD Primary Care Provider +1- [phone] Reason for Visit * Reason Onset Date Comments FYI 08/10/2023 Encounter Details Date Type Department Care Team (Late st Contact Info) Description 08/10/2023 Telephone [facility] MEDICINE 230 [place] [address] Carlo Santana MD [address] [place], [place] [phone] FYI Social History Tobacco Use Types Packs/Day [...] 9:30 AM EDT Clinical Support [facility] MED & PEDS 505 [place] [address] Fariba Gandhi, HUGO 505 [place] [address] documented as of this encounter Visit Diagnoses Not on filedocumented in this encounter Additional Health Concerns Assessment Noted Time PHQ-9 Depression Total Score: 3 06/04/19 23 3:42 PM EDT documented as of this encounter Care Teams Special Weapons And Tactics Officer Relationship Specialty Start Date End Date Carlo Santana MD 505 [place] [address] PCP - General Internal Medicine 12/28/17 documented as of this encounter
--- OUTSIDE RECORDS SUMMARY | 2024-06-22 18:50 | XMS_ITS | Encounter Summary ---
Author Organization [employer] Address 75 [facility] 7 [place] [address] Care Team Providers Care Bottom Liquor Attendant Name Role Phone Carlo Santana MD Primary Care Provider +1- [phone] Reason for Visit * Reason Onset Date Comments Referral 02/22/2024 Encounter Details Date Type Department Care Team (Late st Contact Info) Description 02/22/2024 Telephone [facility] MEDICINE 230 [place] [address] Carlo Santana MD [address] [facility] [address] [place], [place] [phone] Referral Social History Tobacco Use Types Packs/Day [...] second referral for Outpatient Therapy, Callback number [phone] documented in this encounter Plan of Treatment Upcoming Encounters Date Type Department Care Team (Late st Contact Info) Description 07/12/2024 9:30 AM EDT Clinical Support [facility] CHC MED & PEDS 505 [place] [address] Fariba Gandhi, RN 505 [place] [address] documented as of this encounter Visit Diagnoses Not on filedocumented in this encounter Additional Health Concerns Assessment Noted Time PHQ-9 Depression Total Score: 15 024 11:50 AM EST documented as of this encounter Care Teams Bottom Liquor Attendant Relationship Specialty Start Date End Date Carlo Santana MD [address] [place] [address] PCP - General Internal Medicine 12/28/17 documented as of this encounter
--- OUTSIDE RECORDS SUMMARY | 2024-06-22 18:50 | XMS_ITS | Encounter Summary ---
Author Organization [employer] Address [address] [facility] 7 [place] [address] Care Team Providers Care Relief Mate Name Role Phone Carlo Santana MD Primary Care Provider +1- [phone] Reason for Visit * Reason Onset Date Comments Med Refill 06/04/2024 Encounter Details Date Type Department Care Team ([facility] st Contact Info) Description 06/04/2024 Telephone [facility] MEDICINE 230 [place] [address] Carlo Santana MD 505 [place], [place] [phone] Med Refill Social History Tobacco Use Types [...] * Telephone Encounter - Grabiel Taylor - 06/04/2024 8:13 AM EDT TC from pt requesting medication refill. Medications needing refill : oxyCODONE (Roxicodone) 10 MG immediate release tablet To be sent to: [facility]/pharmacy #[id number] - LEATHA PHILLIPS - [address] [facility] documented in this encounter Plan of Treatment Upcoming Encounters Date Type Department Care Team ([facility] st Contact Info) Description 07/12/2024 9:30 AM EDT Clinical Support [facility] CHC MED & PEDS 505 [place] [address] Fariba Gandhi RN 505 [place] [address] documented as of this encounter Visit Diagnoses Not on filedocumented in this encounter Additional Health Concerns Assessment Noted Time PHQ-9 Depression Total Score: 15 024 11:50 AM EST documented as of this encounter Care Teams Relief Mate Relationship Specialty Start Date End Date Carlo Santana MD 505 [facility] [address] PCP - General Internal Medicine 12/28/17 documented as of this encounter
--- OUTSIDE RECORDS SUMMARY | 2024-06-22 18:50 | XMS_ITS | Encounter Summary ---
Author Organization [employer] Address [address] [facility] 7 [place] [address] Care Team Providers Care Machine Sign Writer Name Role Phone Carlo Santana MD Primary Care Provider +1- [phone] Reason for Visit * Reason Onset Date Comments Appointment Request 06/04/2024 Encounter Details Date Type Department Care Team ([facility] st Contact Info) Description 06/04/2024 Telephone [facility] MEDICINE 230 [place] [address] Carlo Santana MD [address] [facility] [address] [place], [place] [phone] Appointment Request Social History Tobacco Use Types [...] Telephone Encounter - Grabiel Taylor - 06/04/2024 8:12 AM EDT Tc from pt requesting to R/s ppt from 05/31/24. Contact pt at [phone] documented in this encounter Plan of Treatment Upcoming Encounters Date Type Department Care Team ([facility] st Contact Info) Description 07/12/2024 9:30 AM EDT Clinical Support [facility] CHC MED & PEDS 505 [place] [address] Fariba Gandhi RN 505 [place] [address] documented as of this encounter Visit Diagnoses Not on filedocumented in this encounter Additional Health Concerns Assessment Noted Time PHQ-9 Depression Total Score: 15 024 11:50 AM EST documented as of this encounter Care Teams Machine Sign Writer Relationship Specialty Start Date End Date Carlo Santana MD 505 [place] [address] PCP - General Internal Medicine 12/28/17 documented as of this encounter
--- OUTSIDE RECORDS SUMMARY | 2024-06-22 18:50 | XMS_ITS | Encounter Summary ---
Author Organization [employer] [facility] Address [address] [place] [address] 7 [place] [address] Care Team Providers Care Waiter/Waitress Informal Name Role Phone Carlo Santana MD Primary Care Provider +1- [phone] Encounter Details Date Type Department Care Team (Latest Contact Info) Description 01/18/2019 Abstract [facility] CONVERSIONS Dental, Provider, DDS Social History [...] Description 07/12/2024 9:30 AM EDT Clinical Support [facility] CHC MED & PEDS 505 [place] [address] Fariba Gandhi, HUGO 505 [place] [address] documented as of this encounter Visit Diagnoses Not on filedocumented in this encounter Care Teams Waiter/Waitress Informal Relationship Specialty Start Date End Date Carlo Santana MD 505 [place] [address] PCP - General Internal Medicine 12/28/17 documented as of this encounter
--- OUTSIDE RECORDS SUMMARY | 2024-06-22 18:50 | XMS_ITS | Encounter Summary ---
Author Organization [employer] Address 75 [facility] 7 [place] [address] Care Team Providers Care Enforcement Officer Name Role Phone Carlo Santana MD Primary Care Provider +1- [phone] Reason for Visit * Reason Comments Med Refill Encounter Details Date Type Department Care Team ([facility] st Contact Info) Description 01/16/2023 Refill [facility] MEDICINE 230 [place] [address] Carlo Santana MD 505 [place], [place] [phone] Muscle spasm Social History Tobacco Use Types [...] 9:30 AM EDT Clinical Support [facility] MED & PEDS 505 [place] [address] Fariba Gandhi, HUGO 505 [place] [address] documented as of this encounter Visit Diagnoses Diagnosis Muscle spasm Spasm of muscle documented in this encounter Additional Health Concerns Assessment Noted Time PHQ-9 Depression Total Score: 3 06/04/19 23 3:42 PM EDT documented as of this encounter Care Teams Enforcement Officer Relationship Specialty Start Date End Date Carlo Santana MD 505 [place] [address] PCP - General Internal Medicine 12/28/17 documented as of this encounter
--- OUTSIDE RECORDS SUMMARY | 2024-06-22 18:50 | XMS_ITS | Encounter Summary ---
Author Organization [employer] Address [address] [place] [address] 7 [place] [address] Care Team Providers Care Rug Touch Up Painter Name Role Phone Carlo Santana MD Primary Care Provider Encounter Details Date Type Department Care Team (Late st Contact Info) Description 11/03/2022 Orders Only [facility] CHC MED & PEDS 505 [place] [address] Carlo Santana MD 505 [place] [address] Obesity (BMI 30-39.9) (Primary Dx); Chronic left-sided [...] - [facility] & PEDS 505 [place] [address] Fariba Gandhi, RN 505 [place] [address] documented as of this encounter Visit Diagnoses Diagnosis Obesity (BMI 30-39.9)- Primary Chronic left-sided low back pain with left-sided sciatica documented in this encounter Additional Health Concerns Assessment Noted Time PHQ-9 Depression Total Score: 3 06/04/19 23 3:42 PM EDT documented as of this encounter Care Teams Rug Touch Up Painter Relationship Specialty Start Date End Date Carlo Santana MD 505 [place] [address] PCP - General Internal Medicine 12/28/17 documented as of this encounter
--- OUTSIDE RECORDS SUMMARY | 2024-06-22 18:50 | XMS_ITS | Encounter Summary ---
Author Organization [employer] Address 75 [facility] 7 [place] [address] Care Team Providers Care Anthropological Linguist Name Role Phone Carlo Santana MD Primary Care Provider +1- [phone] Encounter Details Date Type Department Care Team (Late st Contact Info) Description 08/05/[address] [facility] MEDICINE 230 [place] [address] Carlo Santana MD [address] [facility] [address] [place], [place] [phone] Social History Tobacco Use Types Packs/Day Years [...] [facility] st Contact Info) Description 07/12/2024 9:30 AM EDT Clinical Support [facility] MED & PEDS 505 [place] [address] Fariba Gandhi, RN 505 [place] [address] documented as of this encounter Visit Diagnoses Not on filedocumented in this encounter Additional Health Concerns Assessment Noted Time PHQ-9 Depression Total Score: 3 06/04/19 23 3:42 PM EDT documented as of this encounter Care Teams Anthropological Linguist Relationship Specialty Start Date End Date Carlo Santana MD 505 [place] [address] PCP - General Internal Medicine 12/28/17 documented as of this encounter
--- OUTSIDE RECORDS SUMMARY | 2024-06-22 18:50 | XMS_ITS | Encounter Summary ---
Author Organization [employer] [facility] Address [address] [place] [address] 7 [place] [address] Care Team Providers Care Operating Room Specialist Name Role Phone Carlo Santana MD Primary Care Provider +1- [phone] Encounter Details Date Type Department Care Team (Latest Contact Info) Description 04/18/2018 Abstract [facility] CONVERSIONS Dental, Provider, DDS Social History [...] Description 07/12/2024 9:30 AM EDT Clinical Support [facility] CHC MED & PEDS 505 [place] [address] Fariba Gandhi, HUGO 505 [place] [address] documented as of this encounter Visit Diagnoses Not on filedocumented in this encounter Care Teams Operating Room Specialist Relationship Specialty Start Date End Date Carlo Santana MD 505 [place] [address] PCP - General Internal Medicine 12/28/17 documented as of this encounter
--- OUTSIDE RECORDS SUMMARY | 2024-06-22 18:50 | XMS_ITS | Encounter Summary ---
Author Organization [employer] Address [address] [facility] 7 [place] [address] Care Team Providers Care Dry Boss Name Role Phone Carlo Santana MD Primary Care Provider +1- [phone] Reason for Visit * Reason Onset Date Comments Referral 07/25/2023 Encounter Details Date Type Department Care Team (Late st Contact Info) Description 07/25/2023 Telephone [facility] MEDICINE [address] [place] [address] Carlo Santana MD [address] [facility] [place], [place] [phone] Referral Social History Tobacco Use Types Packs/Day [...] in regards to moving pain management to [facility] in [place]. Pt stated she called the [place] office and it didn't go well. States [...] with switching locations. Please contact pt at [phone] * Telephone Encounter - Rand Savage RN - 07/28/2023 2:55 PM EDT Returned call to pt regarding message below. Pt stated she did not say another referral to Urology she said pain management. Pt is currently seen Pain management in [place] and has tried two different doctors. The first one told her her pain was in her head, and was very rude and dismissive. The socond doctor, she stated was no well prepared for her visit and not aware of what she has tried and not tried. I advised pt that if she decides to go with a different location, the wait times for [facility] appts can be lengthy. Pt advised if maybe she can try to resolve issues directly with this office so there won't be a lapse in care. Pt states she will call [place] [facility] and speak to their assistant product manager andsee if maybe she can try another provider. Pt advised to call their office and based on response they give her she can think about it and decide and speak with PCP next on appt. Pt agrees with plan. Will send to PCP as FYI and if pt does decide she will wants to switch she would like a location in [place]. * Telephone Encounter - Quan Mena - 07/25/2023 3:01 PM EDT Tc from pt calling in regards to urology referral, stating she's not satisfied with care and would like to change location. Pt is requesting to be referred to [facility] instead pt provided location [address] [facility]. If nay questions you can contact pt at [phone]. documented in this encounter Plan of Treatment Upcoming Encounters Date Type Department Care Team (Late st Contact Info) Description 07/12/2024 9:30 AM EDT Clinical Support [facility] MED & PEDS [address] [place] [address] Fariba Gandhi RN 505 [place] [address] documented as of this encounter Visit Diagnoses Not on filedocumented in this encounter Additional Health Concerns Assessment Noted Time PHQ-9 Depression Total Score: 3 06/04/19 23 3:42 PM EDT documented as of this encounter Care Teams Dry Boss Relationship Specialty Start Date End Date Carlo Santana MD 505 [place] [address] PCP - General Internal Medicine 12/28/17 documented as of this encounter
--- OUTSIDE RECORDS SUMMARY | 2024-06-22 18:50 | XMS_ITS | Encounter Summary ---
Author Organization [employer] Address [address] [facility] 7 [place] [address] Care Team Providers Care Database Engineer Name Role Phone Carlo Santana MD Primary Care Provider +1- [phone] Reason for Visit * Reason Onset Date Comments Call Back Request 07/20/2023 Encounter Details Date Type Department Care Team ([facility] st Contact Info) Description 07/20/2023 Telephone [facility] MEDICINE [address] [place] [address] Carlo Santana MD [address] [place], [place] [phone] Call Back Request Social History Tobacco Use [...] Description 07/12/2024 9:30 AM EDT Clinical Support [facility] CH[facility] MED & PEDS 505 [place] [address] Fariba Gandhi, HUGO 505 [place] [address] documented as of this encounter Visit Diagnoses Not on filedocumented in this encounter Additional Health Concerns Assessment Noted Time PHQ-9 Depression Total Score: 3 06/04/19 23 3:42 PM EDT documented as of this encounter Care Teams Database Engineer Relationship Specialty Start Date End Date Carlo Santana MD 505 [place] [address] PCP - General Internal Medicine 12/28/17 documented as of this encounter
--- OUTSIDE RECORDS SUMMARY | 2024-06-22 18:50 | XMS_ITS | Encounter Summary ---
Author Organization [employer] Address [address] [place] [address] 7 [place] [address] Care Team Providers Care Deputy Sheriff Bailiff Name Role Phone Carlo Santana MD Primary Care Provider +1- [phone] Reason for Visit * Reason Onset Date Comments Pharmacy Change Request 06/14/2024 Encounter Details Date Type Department Care Team ([facility] Contact Info) Description 06/14/2024 Telephone [facility] MED & PEDS 505 [place] [address] Carlo Santana MD 505 [place] [address] Pharmacy Change Request Social History Tobacco Use Types [...] encounter Miscellaneous Notes * Telephone Encounter - Veronica Burns RN - 06/14/2024 9:19 AM EDT TC to pt pharmacy. Author informed pharmacy that [facility]. Pharmacy stated unable to send script due to medication type and advised that provider would have to send new script to preferred pharmacy. Author requested to cancel the script at [facility]. Routing to provider to complete script for [facility] pharmacy. documented in this encounter Plan of Treatment Upcoming Encounters Date Type Department Care Team (Late st Contact Info) Description 07/12/2024 9:30 AM EDT Clinical Support [facility] MED & PEDS 505 [place] [address] Fariba Gandhi RN 505 [place] [address] documented as of this encounter Visit Diagnoses Not on filedocumented in this encounter Additional Health Concerns Assessment Noted Time PHQ-9 Depression Total Score: 15 01/25/2 024 11:50 AM EST documented as of this encounter Care Teams Deputy Sheriff Bailiff Relationship Specialty Start Date End Date Carlo Santana MD [address] [place] [address] PCP - General Internal Medicine 12/28/17 documented as of this encounter
--- OUTSIDE RECORDS SUMMARY | 2024-06-22 18:50 | XMS_ITS | Encounter Summary ---
Author Organization [employer] Address [address] [place] [address] 7 [place] [address] Care Team Providers Care Circulation Clerk Name Role Phone Carlo Santana MD Primary Care Provider +1- [phone] Encounter Details Date Type Department Care Team ([facility] st Contact Info) Description 09/16/2023 Orders Only [facility] CH[facility] MED & PEDS 505 [place], [place] [phone] Carlo Santana MD 505 [place] [address] Bipolar affective disorder, remission status unspecified ([facility]) Social History Tobacco Use Types [...] ([facility] st Contact Info) Description 07/12/2024 9:30 AM EDT Clinical Support [facility] MED & PEDS 505 [place] [address] Fariba Gandhi, HUGO 505 [place] [address] documented as of this encounter Visit Diagnoses Diagnosis Bipolar affective disorder, remission status unspecified ([facility]) documented in this encounter Additional Health Concerns Assessment Noted Time PHQ-9 Depression Total Score: 3 06/04/19 23 3:42 PM EDT documented as of this encounter Care Teams Circulation Clerk Relationship Specialty Start Date End Date Carlo Santana MD 505 [place] [address] PCP - General Internal Medicine 12/28/17 documented as of this encounter
--- OUTSIDE RECORDS SUMMARY | 2024-06-22 18:50 | XMS_ITS | Encounter Summary ---
Author Organization [employer] Address [address] [place] [address] 7 [place] [address] Care Team Providers Care Bee Raiser Name Role Phone Carlo Santana MD Primary Care Provider +1- [phone] Encounter Details Date Type Department Care Team ([facility] st Contact Info) Description 11/07/2023 Orders Only [facility] CHC MED & PEDS [address] [place], [place] [phone] Carlo Santana MD 505 [place] [address] Muscle spasm Social History Tobacco Use Types [...] Description 07/12/2024 9:30 AM EDT Clinical Support [facility] CH[facility] MED & PEDS [address] [place] [address] Fariba Gandhi, HUGO 505 [place] [address] documented as of this encounter Visit Diagnoses Diagnosis Muscle spasm Spasm of muscle documented in this encounter Additional Health Concerns Assessment Noted Time PHQ-9 Depression Total Score: 3 06/04/19 23 3:42 PM EDT documented as of this encounter Care Teams Bee Raiser Relationship Specialty Start Date End Date Carlo Santana MD 505 [place] [address] PCP - General Internal Medicine 12/28/17 documented as of this encounter
--- OUTSIDE RECORDS SUMMARY | 2024-06-22 18:50 | XMS_ITS | Encounter Summary ---
Author Organization [employer] Address [address] [facility] 7 [place] [address] Care Team Providers Care Web Services Manager Name Role Phone Carlo Santana MD Primary Care Provider +1- [phone] Reason for Visit * Reason Onset Date Comments Call Back Request 02/28/2024 Encounter Details Date Type Department Care Team ([facility] st Contact Info) Description 02/28/2024 Telephone [facility] MEDICINE [address] [place] [address] Carlo Santana MD 505 [place] [address] Call Back Request Social History Tobacco Use [...] Description 07/12/2024 9:30 AM EDT Clinical Support [facility] MED & PEDS 505 [place] [address] Fariba Gandhi RN 505 [place] [address] documented as of this encounter Visit Diagnoses Not on filedocumented in this encounter Additional Health Concerns Assessment Noted Time PHQ-9 Depression Total Score: 15 024 11:50 AM EST documented as of this encounter Care Teams Web Services Manager Relationship Specialty Start Date End Date Carlo Santana MD 505 [place] [address] PCP - General Internal Medicine 12/28/17 documented as of this encounter
--- OUTSIDE RECORDS SUMMARY | 2024-06-22 18:50 | XMS_ITS | Encounter Summary ---
Author Organization [employer] Address [address] [place] [address] 7 [place] [address] Care Team Providers Care Cashier And Salesperson Name Role Phone Carlo Santana MD Primary Care Provider +1- [phone] Reason for Visit * Reason Comments Med Change Request Encounter Details Date Type Department Care Team ([facility] Contact Info) Description 04/08/2023 Refill [facility] CHC MED & PEDS [address] [place] [address] Carlo Santana MD 505 [place] [address] Obesity (BMI 30-39.9) Social History Tobacco Use [...] 07/12/2024 9:30 AM EDT Clinical Support [facility] MED & PEDS 505 [place] [address] Fariba Gandhi RN 505 [place] [address] documented as of this encounter Visit Diagnoses Diagnosis Obesity (BMI 30-39.9) documented in this encounter Additional Health Concerns Assessment Noted Time PHQ-9 Depression Total Score: 3 06/04/19 23 3:42 PM EDT documented as of this encounter Care Teams Cashier And Salesperson Relationship Specialty Start Date End Date Carlo Santana MD 505 [place] [address] PCP - General Internal Medicine 12/28/17 documented as of this encounter
--- OUTSIDE RECORDS SUMMARY | 2024-06-22 18:50 | XMS_ITS | Encounter Summary ---
Author Organization [employer] Address [address] [place] [address] Care Team Providers Care Tack Picker Name Role Phone aCrlo Santana MD Primary Care Provider +1- [phone] Reason for Referral * Imaging (Routine) - Closed Specialty Diagnoses / Procedures Referred By Contac t Referred To Contact Diagnoses Right ovarian cyst Procedures Us Pelvis complete Carlo Santana MD [address] [place] [address] Phone: tel: fax: [address] Phone: tel: fax: Referral ID Status Reason Start Date Expiration Date Visits Re quested Visits Authorized [id number] Closed 07/08/2022 01/04/2023 1 1 * Imaging (Routine) - Closed Specialty Diagnoses / Procedures Referred By Contac t Referred To Contact Diagnoses Right ovarian cyst Procedures US Pelvis Transvaginal Carlo Santana MD [address] [place] [address] Phone: tel: fax: [address] Phone: tel: fax: Referral ID Status Reason Start Date Expiration Date Visits Re quested Visits Authorized [id number] Closed 07/08/2022 01/04/2023 1 1 Encounter Details Date Type Department Care Team ([facility] Contact Info) Description 07/08/2022 Orders Only [facility] MED & PEDS [address] [place] [address] Carlo Santana MD [address] [place] [address] Right ovarian cyst (Primary Dx) Social History [...] Upcoming Encounters Date Type Department Care Team ([facility] Contact Info) Description 07/12/2024 9:30 AM EDT Clinical Support [facility] MED & PEDS [address] [place] [address] Farbia Gandhi RN 505 [place] [address] Scheduled Orders Name Type Priority Associated Diagnoses [...] Anti Nuclear Antibody Screen POSITIV E(A) NEGATIVE [facility] Comment:TRUDY IFA is a first l ine screen for detecting thepresence of up to approximately 150 autoantibodies invarious autoimmune diseases. A positive TRUDY IFA resultis suggestive of autoimmune disease and reflexes totiter and pattern. Further laboratory testing may beconsidered if clinically indicated.For additional information, please refer tohttp://education.iAmplify/faq/LHG179(This link is being provided for informational/educational purposes only.) TRUDY Titer 1:640(A ) titer [facility] Comment:Reference Range <1:4 0 Negative 1:40-1:80 Low Antibody Level >1:80 Elevated Antibody Level TRUDY Pattern Nuclear , Homogen eous(A) [facility] Comment:Homogeneous pattern is associated with systemic lupuserythematosus (SLE), drug-induced lupus and juvenileidiopathic arthritis.AC-1: HomogeneousInternational Consensus on TRUDY Patterns(https://doi.org/10.1515/wwat-0128-9729)THIS TEST WAS PERFORMED AT:[facility] [place] [phone] HUTTON MD TRUDY TITER 2 (REF LAB) [facility] TRUDY Pattern 2 [facility] TRUDY TITER 3 [facility] TRUDY PATTERN 3 [facility] 07/08/2022 11:3 7 AM EDT 07/08/2022 11:37 AM EDT [facility] External Provider LAB BLO OD ORDERABLES Final Result Performing Organization Address [facility] Co de Phone Number [facility] [address] [place] [address] [phone] * Sed Rate by Modified Magdalene (07/08/2022 11:37 AM EDT) Erythrocyte Sedimentation Rate 6 0 - 20 MM/HR [facility] Comment:Patients with polycy themia and many hemoglobin abnormalitiesmay have depressed sed rates whereas patients with anemiamay have elevated sed rates. 07/08/2022 11:3 7 AM EDT 07/08/2022 11:37 AM EDT [facility] External Provider LAB BLO OD ORDERABLES Final Result Performing Organization Address [facility] de Phone Number [facility] [address] [place] [address] [phone] * APTT (07/08/2022 11:37 AM EDT) Partial Thromboplastin Time 30.5 26.0 - 36.4 SEC [facility] 07/08/2022 11:3 7 AM EDT 07/08/2022 11:37 AM EDT [facility] External Provider LAB BLO OD ORDERABLES Final Result Performing Organization Address [facility] de Phone Number [facility] [address] [place] [address] [phone] * Prothrombin Time-INR (07/08/2022 11:37 AM EDT) [facility] Prothrombin Time 11.8 10.0 - 13.1 SEC [facility] INTERNATIONAL NORM RATIO 1.0 0.9 - 1.1 [facility] Comment:INTERNATIONAL NORMAL IZED RATIO (INR) [...] 7 AM EDT 07/08/2022 11:37 AM EDT [facility] External Provider LAB BLO OD ORDERABLES Final Result Performing Organization Address City/State/[facility] Co de Phone Number [facility] [address] [place] [phone] * (ABNORMAL) CBC auto differential (07/08/2022 11:37 AM EDT) [facility] White Blood Count 9.3 4.8 - 10.8 X10*3/uL [facility] Red Blood Count 4.52 4.20 - 5.50 X10*6/uL [facility] Hemoglobin 14.3 12.0 - 16.0 g/dl [facility] Hematocrit 42.3 37.0 - 47.0 % [facility] Mean Corpuscular Volume 93.6 80.0 - 98.0 fL [facility] Mean Corpuscular Hemoglobin 31.6 27.0 - 33.0 pg [facility] Mean Corpuscular HGB Conc 33.8 31.0 - 35.0 g/dl [facility] Red Cell Distribution Width 12.4 11.0 - 16.0 % [facility] Platelet Count 260 160 - 400 X10*3/uL [facility] Mean Platelet Volume 11.0 9.4 - 12.3 fL [facility] Neutrophils Percent Auto 67.8 45 - 73 % [facility] Imm Gran Pct Auto 0.4 0.0 - 0.4 % [facility] Lymphocytes Percent Auto 24.9 20 - 40 % [facility] Monocytes Percent Auto 5.5 2 - 11 % [facility] Eosinophils Percent Auto 0.8 0 - 4 % [facility] Basophils Percent Auto 0.6 0 - 2 % [facility] NRBC Pct Auto 0.0 0.0 - 0.2 /100WBC [facility] Neutrophils Absolute Auto 6.3 2.0 - 8.3 x10*3/uL [facility] Imm Gran Abs Auto 0.04(H) 0.00 - 0.03 X10*3/uL [facility] Lymphocytes Absolute Auto 2.3 1.2 - 4.9 X10*3/uL [facility] Monocytes Absolute Auto 0.5 0.1 - 1.2 X10*3/uL [facility] Eosinophils Absolute Auto 0.1 0.0 - 0.4 X10*3/uL [facility] Basophils Absolute Auto 0.1 0.0 - 0.2 X10*3/uL [facility] NRBC Abs Auto 0.000 0.0 - 0.012 X10*3/uL [facility] 07/08/2022 11:3 7 AM EDT 07/08/2022 11:37 AM EDT [facility] External Provider LAB BLO OD ORDERABLES Final Result [facility] [address] [place] [address] [phone] documented in this encounter Visit Diagnoses Diagnosis Right ovarian cyst- Primary Other and unspecified ovarian cyst documented in this encounter Additional Health Concerns Assessment Noted Time PHQ-9 Depression Total Score: 3 06/04/19 23 3:42 PM EDT documented as of this encounter Care Teams Tack Picker Relationship Specialty Start Date End Date Carlo Santana MD [address] [place] [address] PCP - General Internal Medicine 12/28/17 documented as of this encounter
--- OUTSIDE RECORDS SUMMARY | 2024-06-22 18:50 | XMS_ITS | Encounter Summary ---
Author Organization [employer] Address [address] [facility] 7 [place] [address] Care Team Providers Care House Carpenter Name Role Phone Carlo Santana MD Primary Care Provider +1- [phone] Reason for Visit * Reason Onset Date Comments Med Refill 01/14/2023 Encounter Details Date Type Department Care Team ([facility] st Contact Info) Description 01/14/2023 Telephone [facility] [address] [place] [address] Carlo Santana MD [address] [place], [place] [phone] Med Refill Social History Tobacco Use Types [...] 07/12/2024 9:30 AM EDT Clinical Support [facility] MED [facility] PEDS [address] [place] [address] Fariba Gandhi, HUGO [address] [place] [address] documented as of this encounter Visit Diagnoses Not on filedocumented in this encounter Additional Health Concerns Assessment Noted Time PHQ-9 Depression Total Score: 3 06/04/19 23 3:42 PM EDT documented as of this encounter Care Teams House Carpenter Relationship Specialty Start Date End Date Carlo Santana MD 505 [place] [address] PCP - General Internal Medicine 12/28/17 documented as of this encounter
--- OUTSIDE RECORDS SUMMARY | 2024-06-22 18:51 | XMS_ITS | Encounter Summary ---
Author Organization [employer] Address [address] [place] [address] 7 [place] [address] Care Team Providers Care Mailing Specialist Name Role Phone Carlo Santana MD Primary Care Provider +1- [phone] Reason for Visit * Reason Onset Date Comments Med Refill 10/18/2022 Encounter Details Date Type Department Care Team ([facility] st Contact Info) Description 10/18/2022 Telephone [facility] CHC MED & PEDS [address] [place] [address] Carlo Santana MD [address] [place] [address] Med Refill Social History Tobacco Use Types [...] requesting status on script. Please contact at [phone] * Telephone Encounter - Avelina Brown - 10/18/2022 8:27 AM EDT Tc from patient requesting a med refill for medication oxycodone 5 mg. Please send to [facility]/pharmacy #[id number] - [place]HA PHILLIPS - [phone] Santana documented in this encounter Plan of Treatment Upcoming Encounters Date Type Department Care Team ([facility] st Contact Info) Description 07/12/2024 9:30 AM EDT Clinical Support [facility] MED & PEDS [address] [place] [address] Fariba Gandhi, RN 505 [place] [address] documented as of this encounter Visit Diagnoses Diagnosis Low back pain radiating down leg documented in this encounter Additional Health Concerns Assessment Noted Time PHQ-9 Depression Total Score: 3 06/04/19 23 3:42 PM EDT documented as of this encounter Care Teams Mailing Specialist Relationship Specialty Start Date End Date Carlo Santana MD [address] [place] [address] PCP - General Internal Medicine 12/28/17 documented as of this encounter
--- OUTSIDE RECORDS SUMMARY | 2024-06-22 18:51 | XMS_ITS | Encounter Summary ---
Author Organization [employer] Address [address] [place] [address] Care Team Providers Care Games Dealer Name Role Phone Carlo Santana MD Primary Care Provider +1- [phone] Reason for Visit * Reason Comments Med Refill Encounter Details Date Type Department Care Team (Late Contact Info) Description 10/28/2022 Refill [facility] MED & PEDS [address] [place] [address] Carlo Santana MD [address] [place] [address] Muscle spasm Social History Tobacco Use Types [...] Upcoming Encounters Date Type Department Care Team ([facility] Contact Info) Description 07/12/2024 9:30 AM EDT Clinical Support [facility] MED & PEDS [address] [place] [address] Fariba Gandhi, HUGO [address] [place] [address] documented as of this encounter Visit Diagnoses Diagnosis Muscle spasm Spasm of muscle documented in this encounter Additional Health Concerns Assessment Noted Time PHQ-9 Depression Total Score: 3 06/04/19 23 3:42 PM EDT documented as of this encounter Care Teams Games Dealer Relationship Specialty Start Date End Date Carlo Santana MD [address] [place] [address] PCP - General Internal Medicine 12/28/17 documented as of this encounter
--- OUTSIDE RECORDS SUMMARY | 2024-06-22 18:51 | XMS_ITS | Encounter Summary ---
Author Organization [employer] Address [address] [place] [address] 7 [place] [address] Care Team Providers Care Conveyor Installer Name Role Phone Carlo Santana MD Primary Care Provider +1- [phone] Reason for Visit * Reason Comments Med Refill Encounter Details Date Type Department Care Team ([facility] Contact Info) Description 06/20/2022 Refill [facility] MED & PEDS 505 [place] [address] Servando Howard MD 505 [place] [address] Social History Tobacco Use Types Packs/Day Years [...] 9:30 AM EDT Clinical Support [facility] MED & PEDS 505 [place] [address] Fariba Gandhi, HUGO 505 [place] [address] documented as of this encounter Visit Diagnoses Not on filedocumented in this encounter Additional Health Concerns Assessment Noted Time PHQ-9 Depression Total Score: 3 06/04/19 23 3:42 PM EDT documented as of this encounter Care Teams Conveyor Installer Relationship Specialty Start Date End Date Carlo Santana MD 505 [place] [address] PCP - General Internal Medicine 12/28/17 documented as of this encounter
--- OUTSIDE RECORDS SUMMARY | 2024-06-22 18:51 | XMS_ITS | Encounter Summary ---
Author Organization [employer] Address [address] [facility] 7 [place] [address] Care Team Providers Care General Manager Farm Name Role Phone Carlo Santana MD Primary Care Provider +1- [phone] Reason for Visit * Reason Onset Date Comments Med Refill 11/01/2023 Encounter Details Date Type Department Care Team (Late st Contact Info) Description 11/01/2023 Telephone [facility] MEDICINE 230 [place] [address] Carlo Santana MD 505 [place], [place] [phone] Med Refill Social History Tobacco Use Types [...] 7.5-325 MG tablet To be sent to: [facility]/pharmacy #[id number] [place] - [address] [facility] documented in this encounter Plan of Treatment Upcoming Encounters Date Type Department Care Team (Late st Contact Info) Description 07/12/2024 9:30 AM EDT Clinical Support [facility] MED & PEDS 505 [place] [address] Fariba Gandhi, HUGO 505 [place] [address] documented as of this encounter Visit Diagnoses Not on filedocumented in this encounter Additional Health Concerns Assessment Noted Time PHQ-9 Depression Total Score: 3 06/04/19 23 3:42 PM EDT documented as of this encounter Care Teams General Manager Farm Relationship Specialty Start Date End Date Carlo Santana MD 505 [place] [address] PCP - General Internal Medicine 12/28/17 documented as of this encounter
--- OUTSIDE RECORDS SUMMARY | 2024-06-22 18:51 | XMS_ITS | Encounter Summary ---
Author Organization [employer] Address [address] [facility] 7 [place] [address] Care Team Providers Care Shipfitter Apprentice Name Role Phone Carlo Santana MD Primary Care Provider +1- [phone] Reason for Visit * Reason Onset Date Comments Med Refill 10/18/2023 Encounter Details Date Type Department Care Team (Late st Contact Info) Description 10/18/[address] [facility] MEDICINE 230 [place] [address] Carlo Santana MD 505 [place], [place] [phone] Med Refill Social History Tobacco Use Types [...] 1 MG tablet To be sent to: [facility] documented in this encounter Plan of Treatment Upcoming Encounters Date Type Department Care Team (Late st Contact Info) Description 07/12/2024 9:30 AM EDT Clinical Support [facility] MED & PEDS 505 [place] [address] Fariba Gandhi, RN 505 [place] [address] documented as of this encounter Visit Diagnoses Not on filedocumented in this encounter Additional Health Concerns Assessment Noted Time PHQ-9 Depression Total Score: 3 06/04/19 23 3:42 PM EDT documented as of this encounter Care Teams Shipfitter Apprentice Relationship Specialty Start Date End Date Carlo Santana MD 505 [place] [address] PCP - General Internal Medicine 12/28/17 documented as of this encounter
--- OUTSIDE RECORDS SUMMARY | 2024-06-22 18:51 | XMS_ITS | Encounter Summary ---
Author Organization [email or web address] Address [address] [facility] 7 [place] [address] Care Team Providers Care Marketing Agent Name Role Phone Carlo Santana MD Primary Care Provider +1- [phone] Reason for Visit * Reason Onset Date Comments Nurse Triage 04/12/2023 Encounter Details Date Type Department Care Team (Late st Contact Info) Description 04/12/2023 Telephone [facility] MEDICINE 230 [place] [address] Carlo Santana MD [address] [facility] [address] [place], [place] [phone] Nurse Triage Social History Tobacco Use Types [...] with disposition and home care reviewed. [facility] 04/13/23 @ 1120am. Insurance is veriifed as [...] [facility] MED & PED[facility] 505 [place] [address] Fariba Gandhi, RN 505 [place] [address] documented as of this encounter Visit Diagnoses Not on filedocumented in this encounter Additional Health Concerns Assessment Noted Time PHQ-9 Depression Total Score: 3 06/04/19 23 3:42 PM EDT documented as of this encounter Care Teams Marketing Agent Relationship Specialty Start Date End Date Carlo Santana MD 505 [place] [address] PCP - General Internal Medicine 12/28/17 documented as of this encounter
--- OUTSIDE RECORDS SUMMARY | 2024-06-22 18:51 | XMS_ITS | Encounter Summary ---
Author Organization [employer] Address 75 [facility] 7t [place] [address] Care Team Providers Care General Activities Therapist Name Role Phone Carlo Santana MD Primary Care Provider +1- [phone] Reason for Visit * Reason Comments Med Change Request Encounter Details Date Type Department Care Team ([facility] st Contact Info) Description 12/20/2023 Refill [facility] 230 [place] [address] Carlo Santana MD [address] [facility] [address] [place], [place] [phone] Hypoproteinemia (CMS/HCC) Social History Tobacco Use Types [...] Upcoming Encounters Date Type Department Care Team ([facility] st Contact Info) Description 07/12/2024 9:30 AM EDT Clinical Support [facility] MED & PEDS 505 [place] [address] Fariba Gandhi RN 505 [place] [address] documented as of this encounter Visit Diagnoses Diagnosis Hypoproteinemia (CMS/HCC) Other disorders of plasma protein metabolism documented in this encounter Additional Health Concerns Assessment Noted Time PHQ-9 Depression Total Score: 3 06/04/19 23 3:42 PM EDT documented as of this encounter Care Teams General Activities Therapist Relationship Specialty Start Date End Date Carlo Santana MD 505 [place] [address] PCP - General Internal Medicine 12/28/17 documented as of this encounter
--- OUTSIDE RECORDS SUMMARY | 2024-06-22 18:51 | XMS_ITS | Encounter Summary ---
Author Organization [employer] Address [address] [facility] 7 [place] [address] Care Team Providers Care Lmsw Name Role Phone Carlo Santana MD Primary Care Provider +1- [phone] Reason for Visit * Reason Onset Date Comments Call Back Request 10/13/2023 Encounter Details Date Type Department Care Team (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 No further details provided. documented in this encounter Plan of Treatment Upcoming Encounters Date Type Department Care Team (Late st Contact Info) Description 07/12/2024 9:30 AM EDT Clinical Support [facility] MED & PEDS 505 [place] [address] Fariba Gandhi, HUGO 505 [place] [address] documented as of this encounter Visit Diagnoses Not on filedocumented in this encounter Additional Health Concerns Assessment Noted Time PHQ-9 Depression Total Score: 3 06/04/19 23 3:42 PM EDT documented as of this encounter Care Teams Lmsw Relationship Specialty Start Date End Date Carlo Santana MD 505 [place] [address] PCP - General Internal Medicine 12/28/17 documented as of this encounter
--- OUTSIDE RECORDS SUMMARY | 2024-06-22 18:51 | XMS_ITS | Encounter Summary ---
Author Organization [employer] Address [address] [facility] 7 [place] [address] Care Team Providers Care Business Office Associate Name Role Phone Carlo Santana MD Primary Care Provider +1- [phone] Encounter Details Date Type Department Care Team (Late st Contact Info) Description 06/09/2023 Telephone [facility] MEDICINE 230 [place] [address] Carlo Santana MD [address] [place], [place] [phone] Social History Tobacco Use Types Packs/Day Years [...] 07/12/2024 9:30 AM EDT Clinical Support [facility] MED & PEDS 505 [place] [address] Fariba Gandhi, RN 505 [place] [address] documented as of this encounter Visit Diagnoses Not on filedocumented in this encounter Additional Health Concerns Assessment Noted Time PHQ-9 Depression Total Score: 3 06/04/19 23 3:42 PM EDT documented as of this encounter Care Teams Business Office Associate Relationship Specialty Start Date End Date Carlo Santana MD 505 [place] [address] PCP - General Internal Medicine 12/28/17 documented as of this encounter
--- OUTSIDE RECORDS SUMMARY | 2024-06-22 18:51 | XMS_ITS | Encounter Summary ---
Author Organization [employer] Address [address] [place] [address] Care Team Providers Care Inker Name Role Phone Carlo Santana MD Primary Care Provider +1- [phone] Reason for Visit * Reason Comments Med Refill Encounter Details Date Type Department Care Team (Late Contact Info) Description 05/06/2022 Refill [facility] MED & PEDS 505 [place] [address] Servando Howard MD 505 [place] [address] Chronic left-sided low back pain with left-sided [...] Department Care Team (Late Contact Info) Description 07/12/2024 9:30 AM EDT Clinical Support [facility] MED & PEDS 505 [place] [address] Fariba Gandhi RN 505 [place], [place] [phone] documented as of this encounter Visit Diagnoses Diagnosis Chronic left-sided low back pain with left-sided sciatica documented in this encounter Care Teams Inker Relationship Specialty Start Date End Date Carlo Santana MD [address] [place] [address] PCP - General Internal Medicine 12/28/17 documented as of this encounter
--- OUTSIDE RECORDS SUMMARY | 2024-06-22 18:51 | XMS_ITS | Encounter Summary ---
Author Organization [employer] Address [address] [place] [address] Care Team Providers Care Pantry Cook Name Role Phone Carlo Santana MD Primary Care Provider +1- [phone] Reason for Referral * Imaging (Routine) - Canceled Specialty Diagnoses / Procedures Referred By Lisseth weaver Referred To Contact Radiology Diagnoses Transaminitis Procedures US Abdomen Complete Carlo Santana MD 505 [place] [address] Phone: tel: fax: Referral ID Status Reason Start Date Expiration Date V isits Requested Visits Authorized [id number] Canceled 04/11/2024 04/11/2025 1 1 Encounter Details Date Type Department Care Team ([facility] st Contact Info) Description 04/11/2024 Orders Only [facility] & [facility]EDS 505 [place] [address] Carlo Santana MD 505 [place] [address] Normocytic anemia (Primary Dx); Transaminitis Social History Tobacco Use [...] Description 07/12/2024 9:30 AM EDT Clinical Support [facility] MED & PEDS 505 [place] [address] Fariba Gandhi, HUGO 505 [place] [address] Scheduled Orders Name Type Priority Associated Diagnoses Orde r Schedule Hepatitis A,B,C Profile Lab Routine Normocytic anemia Transaminitis Expected: 04/11/2024, Expires: 04/11/2025 US Abdomen Complete Imaging Routine Transaminitis Expected: 04/11/2024, Expires: 04/11/2025 Mitochondrial Antibody with Reflex to Titer Lab Routine Transaminitis Expected: 04/11/2024 (Approximate), Expires: 04/11/2025 documented as of this encounter Procedures Procedure Name Priority Date/Time Associated Diagnosis Comments T-SPOT(R).TB Routine 04/11/2024 11:20 AM EST Normocytic anemia documented in this encounter Results * T-SPOT??.TB (04/11/2024 11:20 AM EST) T Spot TB Negative Negative [facility] Comment:A negative test resu lt does [...] as aquantitative test. TS PANEL A 0 [facility] TS PANEL B 1 [facility] Negative Control Passed [facility] Positive Control Passed [facility] Comment:For additional infor matpaulie, please refer tohttp://education.Remedify/faq/XBI517(This link is being provided for informational/educational purposes only.)THIS TEST WAS PERFORMED AT:[id number] [place] [address]CMBMSYFOK KOENIG MD,PHD 04/11/2024 11:2 0 AM EST 04/11/2024 2:39 PM EST Carlo Santana MD LAB BLOOD ORDERABLES Final Result [facility] [address] [place] [address] [phone] documented in this encounter Visit Diagnoses Diagnosis Normocytic anemia- Primary Unspecified anemia Transaminitis Nonspecific elevation of levels of transaminase or lactic acid dehydrogenase (LDH) documented in this encounter Additional Health Concerns Assessment Noted Time PHQ-9 Depression Total Score: 15 024 11:50 AM EST documented as of this encounter Care Teams Pantry Cook Relationship Specialty Start Date End Date Carlo Santana MD [address] [place] [address] PCP - General Internal Medicine 12/28/17 documented as of this encounter
--- OUTSIDE RECORDS SUMMARY | 2024-06-22 18:51 | XMS_ITS | Encounter Summary ---
Author Organization [employer] Address [address] [facility] 7 [place] [address] Care Team Providers Care Pipe Fitter Gas Pipe Name Role Phone Carlo Santana MD Primary Care Provider +1- [phone] Reason for Visit * Reason Onset Date Comments Med Refill 03/01/2023 Encounter Details Date Type Department Care Team ([facility] st Contact Info) Description 03/01/2023 Telephone [facility] MEDICINE 230 [place] [address] Carlo Santana MD [address] [facility] [address] [place], [place] [phone] Med Refill Social History Tobacco Use Types [...] refill on oxyCODONE-acetaminophen (Percocet) 5-325 MG tablet [facility]acy #[id number] [place]HA [place] - [address] [facility] documented in this encounter Plan of Treatment Upcoming Encounters Date Type Department Care Team (Late st Contact Info) Description 07/12/2024 9:30 AM EDT Clinical Support [facility]EDS 505 [place] [address] Fariba Gandhi, RN 505 [place] [address] documented as of this encounter Visit Diagnoses Not on filedocumented in this encounter Additional Health Concerns Assessment Noted Time PHQ-9 Depression Total Score: 3 06/04/19 23 3:42 PM EDT documented as of this encounter Care Teams Pipe Fitter Gas Pipe Relationship Specialty Start Date End Date Carlo Santana MD [address] [place] [address] PCP - General Internal Medicine 12/28/17 documented as of this encounter
--- OUTSIDE RECORDS SUMMARY | 2024-06-22 18:51 | XMS_ITS | Encounter Summary ---
Author Organization [employer] Address [address] [facility] 7 [place] [address] Care Team Providers Care Skiver Hand Name Role Phone Carlo Sanat[place] MD Primary Care Provider +1- [phone] Reason for Visit * Reason Onset Date Comments Medication Question 04/17/2024 Med Refill 04/17/2024 Encounter Details Date Type Department Care Team ([facility] st Contact Info) Description 04/17/2024 Telephone [facility] MEDICINE 230 [place] [address] Carlo Santana MD [address] [facility] [address] [place], [place] [phone] Medication Question; Med Refill Social History Tobacco Use Types [...] * Telephone Encounter - Grabiel Taylor - 04/17/2024 8:03 AM EST Tc from pt asking to see if it possible to get Medication oxyCODONE (Roxicodone) 10 MG immediate release tablet Earlier because pt only has 2 left. Contact pt at [phone] documented in this encounter Plan of Treatment Upcoming Encounters Date Type Department Care Team ([facility] st Contact Info) Description 07/12/2024 9:30 AM EDT Clinical Support [facility] MED & PEDS 505 [place] [address] Fariba Gandhi RN 505 [place] [address] documented as of this encounter Visit Diagnoses Not on filedocumented in this encounter Additional Health Concerns Assessment Noted Time PHQ-9 Depression Total Score: 15 024 11:50 AM EST documented as of this encounter Care Teams Skiver Hand Relationship Specialty Start Date End Date Carlo Santana MD 505 [place] [address] PCP - General Internal Medicine 12/28/17 documented as of this encounter
--- OUTSIDE RECORDS SUMMARY | 2024-06-22 18:51 | XMS_ITS | Encounter Summary ---
Author Organization [employer] Address [address] [facility] 7 [place] [address] Care Team Providers Care Director Public Service Name Role Phone Carlo Santana MD Primary Care Provider +1- [phone] Reason for Visit * Reason Onset Date Comments Results 12/19/2023 Encounter Details Date Type Department Care Team (Late st Contact Info) Description 12/19/2023 Telephone [facility] MEDICINE 230 [place] [address] Carlo Santana MD [address] [facility] [address] [place], [place] [phone] Results Social History Tobacco Use Types Packs/Day [...] Notes * Telephone Encounter - Angel Luis Perez - 12/19/2023 11:59 AM EDT TC from pt requesting call back regarding Results. Type of results: Labs Date when done: 12/15 Facility: [facility] documented in this encounter Plan of Treatment Upcoming Encounters Date Type Department Care Team (Late st Contact Info) Description 07/12/2024 9:30 AM EDT Clinical Support [facility] MED & PEDS 505 [place] [address] Fariba Gandhi RN 505 [place] [address] documented as of this encounter Visit Diagnoses Not on filedocumented in this encounter Additional Health Concerns Assessment Noted Time PHQ-9 Depression Total Score: 3 06/04/19 23 3:42 PM EDT documented as of this encounter Care Teams Director Public Service Relationship Specialty Start Date End Date Carlo Santana MD 505 [place] [address] PCP - General Internal Medicine 12/28/17 documented as of this encounter
--- OUTSIDE RECORDS SUMMARY | 2024-06-22 18:51 | XMS_ITS | Encounter Summary ---
Author Organization [employer] Address [address] [place] [address] 7 [place] [address] Care Team Providers Care Impregnator And Drier Helper Name Role Phone Carlo Santana MD Primary Care Provider +1- [phone] Reason for Visit * Reason Onset Date Comments Durable Medical Equipment 12/23/2023 Encounter Details Date Type Department Care Team ([facility] st Contact Info) Description 12/23/2023 Telephone [facility] MED & PEDS 505 [place] [address] Carlo Santana MD 505 [place] [address] Durable Medical Equipment Social History Tobacco Use [...] small If any questions contact pt at [phone] documented in this encounter Plan of Treatment Upcoming Encounters Date Type Department Care Team ([facility] st Contact Info) Description 07/12/2024 9:30 AM EDT Clinical Support [facility] MED & PEDS 505 [place] [address] Fariba Gandhi, HUGO 505 [place] [address] documented as of this encounter Visit Diagnoses Diagnosis Chronic left-sided low back pain with left-sided sciatica documented in this encounter Additional Health Concerns Assessment Noted Time PHQ-9 Depression Total Score: 3 06/04/19 23 3:42 PM EDT documented as of this encounter Care Teams Impregnator And Drier Helper Relationship Specialty Start Date End Date Carlo Santana MD 505 [place] [address] PCP - General Internal Medicine 12/28/17 documented as of this encounter
--- OUTSIDE RECORDS SUMMARY | 2024-06-22 18:51 | XMS_ITS | Encounter Summary ---
Author Organization [employer] Address [address] [facility] 7 [place] [address] Care Team Providers Care Dispatcher Refinery Name Role Phone Carlo Santana MD Primary Care Provider +1- [phone] Reason for Visit * Reason Comments Med Refill Encounter Details Date Type Department Care Team ([facility] st Contact Info) Description 03/31/2023 Refill [facility] MEDICINE 230 [place] [address] Carlo Santana MD 505 [place], [place] [phone] Chronic left-sided low back pain with left-sided [...] [facility] MED & PEDS 505 [place] [address] Fariba Gandhi RN 505 [place] [address] documented as of this encounter Visit Diagnoses Diagnosis Chronic left-sided low back pain with left-sided sciatica Low back pain radiating down leg documented in this encounter Additional Health Concerns Assessment Noted Time PHQ-9 Depression Total Score: 3 06/04/19 23 3:42 PM EDT documented as of this encounter Care Teams Dispatcher Refinery Relationship Specialty Start Date End Date Carlo Santana MD 505 [place] [address] PCP - General Internal Medicine 12/28/17 documented as of this encounter
--- OUTSIDE RECORDS SUMMARY | 2024-06-22 18:51 | XMS_ITS | Encounter Summary ---
Author Organization [employer] Address 75 [facility] 7 [place] [address] Care Team Providers Care Web Ui Software Engineer Name Role Phone Carlo Santana MD Primary Care Provider +1- [phone] Reason for Visit * Reason Comments Med Refill Encounter Details Date Type Department Care Team ([facility] st Contact Info) Description 05/09/2024 Refill [facility] MEDICINE 230 [place] [address] Carlo Santana MD 505 [place], [place] [phone] Diarrhea, unspecified type; Chronic left shoulder pain; Rib pain; Chronic left-sided low back pain with left-sided sciatica; Neck pain Social History Tobacco Use Types Packs/Day Years [...] Description 07/12/2024 9:30 AM EDT Clinical Support [facility] MED & PEDS 505 [place] [address] Fariba Gandhi, HUGO 505 [place] [address] documented as of this encounter Visit Diagnoses Diagnosis Diarrhea, unspecified type Chronic left shoulder pain Pain in joint, shoulder region Rib pain Unspecified chest pain Chronic left-sided low back pain with left-sided sciatica Neck pain Cervicalgia documented in this encounter Additional Health Concerns Assessment Noted Time PHQ-9 Depression Total Score: 15 024 11:50 AM EST documented as of this encounter Care Teams Web Ui Software Engineer Relationship Specialty Start Date End Date Carlo Santana MD 505 [place] [address] PCP - General Internal Medicine 12/28/17 documented as of this encounter
--- OUTSIDE RECORDS SUMMARY | 2024-06-22 18:51 | XMS_ITS | Encounter Summary ---
Author Organization [employer] Address 75 [facility] 7 [place] [address] Care Team Providers Care Engineering Department Chair Name Role Phone Carlo Santana MD Primary Care Provider +1- [phone] Reason for Visit * Reason Onset Date Comments Appointment Request 12/13/2023 Encounter Details Date Type Department Care Team ([facility] st Contact Info) Description 12/13/2023 Telephone [facility] MEDICINE 230 [place] [address] Carlo Santana MD [address] [place], [place] [phone] Appointment Request Social History Tobacco Use Types [...] Description 07/12/2024 9:30 AM EDT Clinical Support [facility] CH[facility] MED & PEDS 505 [place] [address] aFriba Gandhi, HUGO 505 [place] [address] documented as of this encounter Visit Diagnoses Not on filedocumented in this encounter Additional Health Concerns Assessment Noted Time PHQ-9 Depression Total Score: 3 06/04/19 23 3:42 PM EDT documented as of this encounter Care Teams Engineering Department Chair Relationship Specialty Start Date End Date Carlo Santana MD 505 [place] [address] PCP - General Internal Medicine 12/28/17 documented as of this encounter
--- OUTSIDE RECORDS SUMMARY | 2024-06-22 18:51 | XMS_ITS | Encounter Summary ---
Author Organization [employer] Address 75 [facility] 7 [place] [address] Care Team Providers Care Railroad Engineer Name Role Phone Carlo Santana MD Primary Care Provider +1- [phone] Reason for Visit * Reason Onset Date Comments Nurse Triage 10/31/2023 Encounter Details Date Type Department Care Team (Late st Contact Info) Description 10/31/2023 Telephone [facility] 230 [place] [address] Carlo Santana MD [address] [place], [place] [phone] Nurse Triage Social History Tobacco Use Types [...] need for follow-up with a provider. Suggested [facility] but pt wanted to see PCP for stronger lidocaine patches for her back. Pt reports pain as a constant 7-8/10 and can barely move. Reiterated that pt should be seen for the fall to be properly evaluated and there was not same daycare appt at [facility]. Pt declined [place] and ended call. * [...] 9:30 AM EDT Clinical Support [facility] MED & PEDS 505 [place] [address] Fariba Gandhi RN 505 [place] [address] documented as of this encounter Visit Diagnoses Not on filedocumented in this encounter Additional Health Concerns Assessment Noted Time PHQ-9 Depression Total Score: 3 06/04/19 23 3:42 PM EDT documented as of this encounter Care Teams Railroad Engineer Relationship Specialty Start Date End Date Carlo Santana MD 505 [place] [address] PCP - General Internal Medicine 12/28/17 documented as of this encounter
--- OUTSIDE RECORDS SUMMARY | 2024-06-22 18:51 | XMS_ITS | Encounter Summary ---
Author Organization [employer] Address 75 [facility] 7t [place] [address] Care Team Providers Care Organizational Development Director Name Role Phone Carlo Santnaa MD Primary Care Provider +1- [phone] Encounter Details Date Type Department Care Team (Late st Contact Info) Description 12/20/2023 Orders Only [facility] 230 [place] [address] Carlo Santana MD [address] [place], [place] [phone] Hypoproteinemia (CMS/HCC) (Primary Dx) Social History Tobacco [...] Description 07/12/2024 9:30 AM EDT Clinical Support [facility] MED & PEDS 505 [place] [address] Fariba Gandhi, HUGO 505 [place] [address] documented as of this encounter Visit Diagnoses Diagnosis Hypoproteinemia (CMS/HCC)- Primary Other disorders of plasma protein metabolism documented in this encounter Additional Health Concerns Assessment Noted Time PHQ-9 Depression Total Score: 3 06/04/19 23 3:42 PM EDT documented as of this encounter Care Teams Organizational Development Director Relationship Specialty Start Date End Date Carlo Santana MD 505 [place] [address] PCP - General Internal Medicine 12/28/17 documented as of this encounter
--- OUTSIDE RECORDS SUMMARY | 2024-06-22 18:51 | XMS_ITS | Encounter Summary ---
Author Organization [employer] Address 75 [facility] 7 [place] [address] Care Team Providers Care Greige Mender Name Role Phone Carlo Santana MD Primary Care Provider +1- [phone] Reason for Visit * Reason Onset Date Comments Medication Question 05/06/2023 Encounter Details Date Type Department Care Team ([facility] st Contact Info) Description 05/06/2023 Telephone [facility] MEDICINE 230 [place] [address] Carlo Santana MD [address] [place], [place] [phone] Medication Question Social History Tobacco Use Types [...] 9:30 AM EDT Clinical Support [facility] MED & PEDS 505 [place] [address] Fariba Gandhi, HUGO 505 [place] [address] documented as of this encounter Visit Diagnoses Not on filedocumented in this encounter Additional Health Concerns Assessment Noted Time PHQ-9 Depression Total Score: 3 06/04/19 23 3:42 PM EDT documented as of this encounter Care Teams Greige Mender Relationship Specialty Start Date End Date Carlo Santana MD 505 [place] [address] PCP - General Internal Medicine 12/28/17 documented as of this encounter
--- OUTSIDE RECORDS SUMMARY | 2024-06-22 18:51 | XMS_ITS | Encounter Summary ---
Author Organization [employer] Address [address] [place] [address] 7 [place] [address] Care Team Providers Care Dredgemaster Name Role Phone Carlo Santana MD Primary Care Provider +1- [phone] Reason for Visit * Reason Onset Date Comments Appointment Request 11/08/2023 Encounter Details Date Type Department Care Team ([facility] st Contact Info) Description 11/08/2023 Telephone [facility] CH[facility] MED & PEDS 505 [place] [address] Carlo Santana MD 505 [place] [address] Appointment Request Social History Tobacco Use Types [...] Upcoming Encounters Date Type Department Care Team ([facility] st Contact Info) Description 07/12/2024 9:30 AM EDT Clinical Support [facility] MED & PEDS 505 [place] [address] Fariba Gandhi RN 505 [place] [address] documented as of this encounter Visit Diagnoses Not on filedocumented in this encounter Additional Health Concerns Assessment Noted Time PHQ-9 Depression Total Score: 3 06/04/19 23 3:42 PM EDT documented as of this encounter Care Teams Dredgemaster Relationship Specialty Start Date End Date Carlo Santana MD [address] [place] [address] PCP - General Internal Medicine 12/28/17 documented as of this encounter
--- OUTSIDE RECORDS SUMMARY | 2024-06-22 18:51 | XMS_ITS | Encounter Summary ---
Author Organization [employer] Address 75 [facility] 7 [place] [address] Care Team Providers Care Nursing Unit Manager Name Role Phone Carlo Santana MD Primary Care Provider +1- [phone] Reason for Visit * Reason Comments Med Refill Encounter Details Date Type Department Care Team ([facility] st Contact Info) Description 11/02/2023 Refill [facility] MEDICINE 230 [place] [address] Carlo Santana MD 505 [place], [place] [phone] Chronic left-sided low back pain with left-sided [...] Upcoming Encounters Date Type Department Care Team ([facility] st Contact Info) Description 07/12/2024 9:30 AM EDT Clinical Support [facility] MED & PEDS 505 [place] [address] Fariba Gandhi RN 505 [place] [address] documented as of this encounter Visit Diagnoses Diagnosis Chronic left-sided low back pain with left-sided sciatica documented in this encounter Additional Health Concerns Assessment Noted Time PHQ-9 Depression Total Score: 3 06/04/19 23 3:42 PM EDT documented as of this encounter Care Teams Nursing Unit Manager Relationship Specialty Start Date End Date Carlo Santana MD 505 [place] [address] PCP - General Internal Medicine 12/28/17 documented as of this encounter
--- OUTSIDE RECORDS SUMMARY | 2024-06-22 18:51 | XMS_ITS | Encounter Summary ---
Author Organization [employer] Address 75 [facility] 7 [place] [address] Care Team Providers Care Chief Gauger Name Role Phone Carlo Santana MD Primary Care Provider +1- [phone] Reason for Visit * Reason Onset Date Comments Med Refill 11/02/2023 Encounter Details Date Type Department Care Team (Late st Contact Info) Description 11/02/2023 Telephone [facility] 230 [place] [address] Carlo Santana MD 505 [place], [place] [phone] Med Refill Social History Tobacco Use Types [...] script for oxycodone to be sent to [facility] on file. * Telephone Encounter - Quan Mena - 11/02/2023 9:15 AM EDT Tc from pt stating oxyCODONE-acetaminophen (Percocet) 7.5-325 MG tablet was sent to the wrong pharmacy and was advised by the pharmacy to contact pcp to have script transferred to the right pharmacy.Pt is requesting to have script sent to [facility]. If any questions you can contact pt at [phone]. documented in this encounter Plan of Treatment Upcoming Encounters Date Type Department Care Team (Late st Contact Info) Description 07/12/2024 9:30 AM EDT Clinical Support [facility] MED & PEDS 505 [place] [address] Fariba Gandhi, RN 505 [place] [address] documented as of this encounter Visit Diagnoses Not on filedocumented in this encounter Additional Health Concerns Assessment Noted Time PHQ-9 Depression Total Score: 3 06/04/19 23 3:42 PM EDT documented as of this encounter Care Teams Chief Gauger Relationship Specialty Start Date End Date Carlo Santana MD [address] [place] [address] PCP - General Internal Medicine 12/28/17 documented as of this encounter
--- OUTSIDE RECORDS SUMMARY | 2024-06-22 18:51 | XMS_ITS | Encounter Summary ---
Author Organization [employer] Address 75 [facility] 7 [place] [address] Care Team Providers Care Machined Parts Quality Inspector Name Role Phone Carlo Santana MD Primary Care Provider +1- [phone] Reason for Visit * Reason Onset Date Comments Call Back Request 12/19/2023 Encounter Details Date Type Department Care Team ([facility] st Contact Info) Description 12/19/2023 Telephone [facility] MEDICINE 230 [place] [address] Carlo Santana MD [address] [place], [place] [phone] Call Back Request Social History Tobacco Use [...] Description 07/12/2024 9:30 AM EDT Clinical Support [facility] MED & PEDS 505 [place] [address] Fariba Gandhi, HUGO 505 [place] [address] documented as of this encounter Visit Diagnoses Not on filedocumented in this encounter Additional Health Concerns Assessment Noted Time PHQ-9 Depression Total Score: 3 06/04/19 23 3:42 PM EDT documented as of this encounter Care Teams Machined Parts Quality Inspector Relationship Specialty Start Date End Date Carlo Santana MD 505 [place] [address] PCP - General Internal Medicine 12/28/17 documented as of this encounter
--- OUTSIDE RECORDS SUMMARY | 2024-06-22 18:51 | XMS_ITS | Encounter Summary ---
Author Organization [employer] Address 75 [facility] 7 [place] [address] Care Team Providers Care Senior Construction Project Manager Name Role Phone Carlo Santana MD Primary Care Provider +1- [phone] Reason for Visit * Reason Onset Date Comments Med Refill 04/21/2023 Encounter Details Date Type Department Care Team (Late st Contact Info) Description 04/21/2023 Refill [facility] MEDICINE 230 [place] [address] Carlo Santana MD 505 [place], [place] [phone] Low back pain radiating down leg Social [...] - [facility] 505 [place] [address] Fariba Gandhi RN 505 [place] [address] documented as of this encounter Visit Diagnoses Diagnosis Low back pain radiating down leg documented in this encounter Additional Health Concerns Assessment Noted Time PHQ-9 Depression Total Score: 3 06/04/19 23 3:42 PM EDT documented as of this encounter Care Teams Senior Construction Project Manager Relationship Specialty Start Date End Date Carlo Santana MD 505 [place] [address] PCP - General Internal Medicine 12/28/17 documented as of this encounter
--- OUTSIDE RECORDS SUMMARY | 2024-06-22 18:51 | XMS_ITS | Encounter Summary ---
Author Organization [employer] Address [address] [place] [address] 7 [place] [address] Care Team Providers Care History Professor Name Role Phone Carlo Santana MD Primary Care Provider +1- [phone] Encounter Details Date Type Department Care Team ([facility] st Contact Info) Description 03/05/2024 Orders Only [facility] CHC MED & PEDS 505 [place], [place] [phone] Carlo Santana MD 505 [place] [address] Social History Tobacco Use Types Packs/Day Years [...] [facility] Contact Info) Description 07/12/2024 9:30 AM EDT Clinical Support [facility] MED & PEDS 505 [place] [address] Fariba Gandhi, HUGO 505 [place] [address] documented as of this encounter Visit Diagnoses Not on filedocumented in this encounter Additional Health Concerns Assessment Noted Time PHQ-9 Depression Total Score: 15 024 11:50 AM EST documented as of this encounter Care Teams History Professor Relationship Specialty Start Date End Date Carlo Santana MD [address] [place] [address] PCP - General Internal Medicine 12/28/17 documented as of this encounter
--- OUTSIDE RECORDS SUMMARY | 2024-06-22 18:51 | XMS_ITS | Encounter Summary ---
Author Organization [employer] Address [address] [place] [address] 7 [place] [address] Care Team Providers Care Fire Lieutenant Marine Name Role Phone Carlo Santana MD Primary Care Provider +1- [phone] Reason for Visit * Reason Onset Date Comments Med Refill 09/16/2022 Encounter Details Date Type Department Care Team ([facility] st Contact Info) Description 09/16/2022 Telephone [facility] MED & PEDS 505 [place] [address] Carlo Santana MD 505 [place] [address] Med Refill Social History Tobacco Use Types [...] 9:30 AM EDT Clinical Support [facility] MED & PEDS 505 [place] [address] Fariba Gandhi, HUGO 505 [place] [address] documented as of this encounter Visit Diagnoses Not on filedocumented in this encounter Additional Health Concerns Assessment Noted Time PHQ-9 Depression Total Score: 3 06/04/19 23 3:42 PM EDT documented as of this encounter Care Teams Fire Lieutenant Marine Relationship Specialty Start Date End Date Carlo Santana MD 505 [place] [address] PCP - General Internal Medicine 12/28/17 documented as of this encounter
--- OUTSIDE RECORDS SUMMARY | 2024-06-22 18:51 | XMS_ITS | Encounter Summary ---
Author Organization [employer] Address 75 [facility] 7t [place] [address] Care Team Providers Care Pewter Fabricator Name Role Phone Carlo Santana MD Primary Care Provider +1- [phone] Encounter Details Date Type Department Care Team (Late st Contact Info) Description 11/02/2023 Orders Only [facility] 230 [place] [address] Carlo Santana MD [address] [facility] [address] [place], [place] [phone] Chronic left-sided low back pain with left-sided [...] 9:30 AM EDT Clinical Support [facility] MED & PEDS 505 [place] [address] Fariba Gandhi, HUGO 505 [place] [address] documented as of this encounter Visit Diagnoses Diagnosis Chronic left-sided low back pain with left-sided sciatica documented in this encounter Additional Health Concerns Assessment Noted Time PHQ-9 Depression Total Score: 3 06/04/19 23 3:42 PM EDT documented as of this encounter Care Teams Pewter Fabricator Relationship Specialty Start Date End Date Carlo Santana MD 505 [place] [address] PCP - General Internal Medicine 12/28/17 documented as of this encounter
--- OUTSIDE RECORDS SUMMARY | 2024-06-22 18:51 | XMS_ITS | Encounter Summary ---
Author Organization [employer] Address [address] [place] [address] [place] [address] Care Team Providers Care Refinery Operator Crude Unit Name Role Phone Carlo Santana MD Primary Care Provider +1- [phone] Reason for Visit * Reason Onset Date Comments Med Refill 10/28/2022 Encounter Details Date Type Department Care Team ([facility] st Contact Info) Description 10/28/2022 Telephone [facility] CHC MED & PEDS 505 [place] [address] Carlo Santana MD 505 [place] [address] Med Refill Social History Tobacco Use Types [...] 9:30 AM EDT Clinical Support [facility] MED & PEDS 505 [place] [address] Fariba Gandhi, RN 505 [place], [place] [phone] documented as of this encounter Visit Diagnoses Not on filedocumented in this encounter Additional Health Concerns Assessment Noted Time PHQ-9 Depression Total Score: 3 06/04/19 23 3:42 PM EDT documented as of this encounter Care Teams Refinery Operator Crude Unit Relationship Specialty Start Date End Date Carlo Santana MD 505 [place] [address] PCP - General Internal Medicine 12/28/17 documented as of this encounter
--- OUTSIDE RECORDS SUMMARY | 2024-06-22 18:51 | XMS_ITS | Encounter Summary ---
Author Organization [employer] Address [address] [place] [address] 7 [place] [address] Care Team Providers Care Entry Level Name Role Phone Carlo Santana MD Primary Care Provider +1- [phone] Reason for Visit * Reason Comments Med Refill Encounter Details Date Type Department Care Team ([facility] Contact Info) Description 12/19/2023 Refill [facility] MED & PEDS 505 [place] [address] Carlo Santana MD 505 [place] [address] Diarrhea, unspecified type Social History Tobacco Use [...] [facility] 505 [place] [address] Fariba Gandhi, HUGO 505 [place] [address] documented as of this encounter Visit Diagnoses Diagnosis Diarrhea, unspecified type documented in this encounter Additional Health Concerns Assessment Noted Time PHQ-9 Depression Total Score: 3 06/04/19 23 3:42 PM EDT documented as of this encounter Care Teams Entry Level Relationship Specialty Start Date End Date Carlo Santana MD 505 [place] [address] PCP - General Internal Medicine 12/28/17 documented as of this encounter
--- OUTSIDE RECORDS SUMMARY | 2024-06-22 18:51 | XMS_ITS | Encounter Summary ---
Author Organization [employer] Address [address] [place] [address] 7 [place] [address] Care Team Providers Care Fashion Artist Name Role Phone Carlo Santana MD Primary Care Provider +1- [phone] Reason for Visit * Reason Onset Date Comments Nurse Triage 12/20/2023 Encounter Details Date Type Department Care Team ([facility] st Contact Info) Description 12/20/[address] [facility] CHC MED & PEDS 505 [place] [address] Carlo Santana MD 505 [place] [address] Nurse Triage Social History Tobacco Use Types [...] is requesting an urgentappointment. Contact pt at [phone] documented in this encounter Plan of Treatment Upcoming Encounters Date Type Department Care Team (Late st Contact Info) Description 07/12/2024 9:30 AM EDT Clinical Support [facility] MED & PEDS 505 [place] [address] Fariba Gandhi, HUGO 505 [place] [address] documented as of this encounter Visit Diagnoses Not on filedocumented in this encounter Additional Health Concerns Assessment Noted Time PHQ-9 Depression Total Score: 3 06/04/19 23 3:42 PM EDT documented as of this encounter Care Teams Fashion Artist Relationship Specialty Start Date End Date Carlo Santana MD 505 [place] [address] PCP - General Internal Medicine 12/28/17 documented as of this encounter
--- OUTSIDE RECORDS SUMMARY | 2024-06-22 18:51 | XMS_ITS | Encounter Summary ---
Author Organization [employer] Address [address] [place] [address] 7 [place] [address] Care Team Providers Care Concrete Polisher Name Role Phone Carlo Santana MD Primary Care Provider +1- [phone] Reason for Visit * Reason Comments Med Change Request Encounter Details Date Type Department Care Team ([facility] Contact Info) Description 06/21/2022 Refill [facility] CH[facility] MED & PEDS 505 [place] [address] Carlo Santana MD 505 [place] [address] Chronic left-sided low back pain with left-sided [...] [facility] 505 [place] [address] Fariba Gandhi, RN 505 [place] [address] documented as of this encounter Visit Diagnoses Diagnosis Chronic left-sided low back pain with left-sided sciatica documented in this encounter Additional Health Concerns Assessment Noted Time PHQ-9 Depression Total Score: 3 06/04/19 23 3:42 PM EDT documented as of this encounter Care Teams Concrete Polisher Relationship Specialty Start Date End Date Carlo Santana MD 505 [place] [address] PCP - General Internal Medicine 12/28/17 documented as of this encounter
--- OUTSIDE RECORDS SUMMARY | 2024-06-22 18:51 | XMS_ITS | Encounter Summary ---
Author Organization [employer] Address 75 [facility] 7 [place] [address] Care Team Providers Care Csw Name Role Phone Carlo Santana MD Primary Care Provider +1- [phone] Reason for Visit * Reason Onset Date Comments Med Refill 05/04/2023 Encounter Details Date Type Department Care Team ([facility] st Contact Info) Description 05/04/2023 Telephone [facility] MEDICINE 230 [place] [address] Carlo Santana MD [address] [place], [place] [phone] Med Refill Social History Tobacco Use Types [...] 200 MG capsule To be sent to: [facility]/pharmacy #[id number] [place] [facility] [address] [facility] documented in this encounter Plan of Treatment Upcoming Encounters Date Type Department Care Team (Late st Contact Info) Description 07/12/2024 9:30 AM EDT Clinical Support [facility] MED & PEDS 505 [place] [address] Fariba Gandhi, HUGO 505 [place] [address] documented as of this encounter Visit Diagnoses Not on filedocumented in this encounter Additional Health Concerns Assessment Noted Time PHQ-9 Depression Total Score: 3 06/04/19 23 3:42 PM EDT documented as of this encounter Care Teams Csw Relationship Specialty Start Date End Date Carlo Santana MD 505 [place] [address] PCP - General Internal Medicine 12/28/17 documented as of this encounter
--- OUTSIDE RECORDS SUMMARY | 2024-06-22 18:51 | XMS_ITS | Encounter Summary ---
Author Organization [employer] Address [address] [place] [address] [place] [address] Care Team Providers Care Housing Inspectors Name Role Phone Carlo Santana MD Primary Care Provider +1- [phone] Reason for Visit * Reason Onset Date Comments Appointment Request 05/04/2022 Encounter Details Date Type Department Care Team ([facility] Contact Info) Description 05/04/2022 Telephone [facility] MED & PEDS 505 [place] [address] Carlo Santana MD 505 [place] [address] Appointment Request Social History Tobacco Use Types [...] done for the low back pain but [facility] advised to pt that she is not ableto make the appt , the provider has to make the appt for her. Please contact pt at [phone] documented in this encounter Plan of Treatment Upcoming Encounters Date Type Department Care Team (Late st Contact Info) Description 07/12/2024 9:30 AM EDT Clinical Support [facility] MED & PEDS 505 [place] [address] Fariba Gandhi, RN 505 [place] [address] documented as of this encounter Visit Diagnoses Not on filedocumented in this encounter Care Teams Housing Inspectors Relationship Specialty Start Date End Date Carlo Santana MD 505 [place] [address] PCP - General Internal Medicine 12/28/17 documented as of this encounter
--- OUTSIDE RECORDS SUMMARY | 2024-06-22 18:51 | XMS_ITS | Encounter Summary ---
Author Organization [employer] Address [address] [facility] 7 [place] [address] Care Team Providers Care Turning Machine Operator Name Role Phone Carlo Santana MD Primary Care Provider +1- [phone] Encounter Details Date Type Department Care Team (Late st Contact Info) Description 04/21/2023 Telephone [facility] MEDICINE [address] [place] [address] Carlo Santana MD [address] [facility] [address] [place], [place] [phone] Social History Tobacco Use Types Packs/Day Years [...] [facility] st Contact Info) Description 07/12/2024 9:30 AM EDT Clinical Support [facility] MED & PEDS 505 [place] [address] Fariba Gandhi, RN 505 [place] [address] documented as of this encounter Visit Diagnoses Not on filedocumented in this encounter Additional Health Concerns Assessment Noted Time PHQ-9 Depression Total Score: 3 06/04/19 23 3:42 PM EDT documented as of this encounter Care Teams Turning Machine Operator Relationship Specialty Start Date End Date Carlo Santana MD 505 [place] [address] PCP - General Internal Medicine 12/28/17 documented as of this encounter
--- OUTSIDE RECORDS SUMMARY | 2024-06-22 18:51 | XMS_ITS | Encounter Summary ---
Author Organization [employer] Address 75 [facility] 7 [place] [address] Care Team Providers Care Range Mechanic Name Role Phone Carlo Santana MD Primary Care Provider +1- [phone] Reason for Visit * Reason Comments Med Refill Encounter Details Date Type Department Care Team ([facility] st Contact Info) Description 06/20/2022 Refill [facility] MEDICINE 230 [place] [address] Carlo Santana MD 505 [place], [place] [phone] Chronic left-sided low back pain with left-sided [...] 07/12/2024 9:30 AM EDT Clinical Support [facility] MED & PEDS 505 [place] [address] Fariba Gandhi, RN 505 [place] [address] documented as of this encounter Visit Diagnoses Diagnosis Chronic left-sided low back pain with left-sided sciatica documented in this encounter Additional Health Concerns Assessment Noted Time PHQ-9 Depression Total Score: 3 06/04/19 23 3:42 PM EDT documented as of this encounter Care Teams Range Mechanic Relationship Specialty Start Date End Date Carlo Santana MD 505 [place] [address] PCP - General Internal Medicine 12/28/17 documented as of this encounter
--- OUTSIDE RECORDS SUMMARY | 2024-06-22 18:51 | XMS_ITS | Encounter Summary ---
Author Organization [employer] Address [address] [place] [address] 7 [place] [address] Care Team Providers Care Windows Systems Administrator Name Role Phone Carlo Santana MD Primary Care Provider +1- [phone] Encounter Details Date Type Department Care Team ([facility] st Contact Info) Description 12/21/2023 Orders Only [facility] CHC MED & PEDS 505 [place], [place] [phone] Carlo Santana MD 505 [place], [place] [phone] Hypoproteinemia (CMS/HCC) (Primary Dx); Diarrhea, unspecified type [...] Upcoming Encounters Date Type Department Care Team ([facility] st Contact Info) Description 07/12/2024 9:30 AM EDT Clinical Support [facility] MED & PEDS 505 [place] [address] Fariba Gandhi RN 505 [place] [address] documented as of this encounter Procedures Procedure Name Priority Date/Time Associated Diagnosis Comments GASTROINTESTINAL PANEL Routine 5:33 PM EDT Diarrhea, unspecified type documented in this encounter Results * Gastrointestinal panel (aka ova & parasites) (12/24/2023 5:33 PM EDT) Campylobacter Not Detected Not Detect. [facility] Plesiomonas shigelloides Not Detected Not Detect. [facility] Salmonella Not Detected Not Detect. [facility] Vibrio Not Detected Not Detect. [facility] Vibrio cholerae Not Detected Not Detect. [facility] YERSINIA ENTEROCOLITICA Not Detected Not Detect. [facility] Enteroaggregative E. coli (EAEC) Not Detected Not Detect. [facility] Enteropathogenic E. coli (EPEC) Not Detected Not Detect. [facility] Enterotoxigenic E. coli (ETEC) lt/st Not Detected Not Detect. [facility] Shiga-like toxin-producing E. coli (STEC) stx1/stx2 Not Detected Not Detect. [facility] E coli O157 Not applicable Not Detect. [facility] Comment:E. coli containing t he O157 antigen are a subset ofShiga-like toxin- producing E. coli (STEC). Shigella/Enteroinvasive E. coli (EIEC) Not Detected Not Detect. [facility] Cryptosporidium Not Detected Not Detect. [facility] Cyclospora cayetanensis Not Detected Not Detect. [facility] Entamoeba histolytica Not Detected Not Detect. [facility] Giardia lamblia Not Detected Not Detect. [facility] Adenovirus F 40/41 Not Detected Not Detect. [facility] Astrovirus Not Detected Not Detect. [facility] Norovirus GI/GII Not Detected Not Detect. [facility] Rotavirus A Not Detected Not Detect. [facility] Sapovirus Not Detected Not Detect. [facility] Comment: All results must be [...] assay is performed by Multiplexed PCR, utilizing [employer]. Stool Rectal contents / Unknown 12/24/2023 5:33 PM EDT 12/27/2023 12:21 PM EDT Carlo Santana MD LAB MICROBIOLOGY - GENERAL ORDERABLES Final Result [facility] [address] [place] [address] [phone] documented in this encounter Visit Diagnoses Diagnosis Hypoproteinemia (CMS/HCC)- Primary Other disorders of plasma protein metabolism Diarrhea, unspecified type documented in this encounter Additional Health Concerns Assessment Noted Time PHQ-9 Depression Total Score: 3 06/04/19 23 3:42 PM EDT documented as of this encounter Care Teams Windows Systems Administrator Relationship Specialty Start Date End Date Carlo Santana MD [address] [place] [address] PCP - General Internal Medicine 12/28/17 documented as of this encounter
--- OUTSIDE RECORDS SUMMARY | 2024-06-22 18:51 | XMS_ITS | Encounter Summary ---
Author Organization [employer] Address [address] [place] [address] 7 [place] [address] Care Team Providers Care Outboard Technician Name Role Phone Carlo Santana MD Primary Care Provider +1- [phone] Reason for Visit * Reason Comments Med Refill Encounter Details Date Type Department Care Team ([facility] Contact Info) Description 12/06/2023 Refill [facility] MED & PEDS 505 [place] [address] Carlo Santana MD 505 [place] [address] Bipolar affective disorder, remission status unspecified (CMS/HCC) [...] [facility] 505 [place] [address] Fariba Gandhi RN 505 [place] [address] documented as of this encounter Visit Diagnoses Diagnosis Bipolar affective disorder, remission status unspecified (CMS/HCC) documented in this encounter Additional Health Concerns Assessment Noted Time PHQ-9 Depression Total Score: 3 06/04/19 23 3:42 PM EDT documented as of this encounter Care Teams Outboard Technician Relationship Specialty Start Date End Date Carlo Santana MD 505 [place] [address] PCP - General Internal Medicine 12/28/17 documented as of this encounter
--- OUTSIDE RECORDS SUMMARY | 2024-06-22 18:51 | XMS_ITS | Encounter Summary ---
Author Organization [employer] Address [address] [place] [address] 7 [place] [address] Care Team Providers Care Fabric Stretcher Name Role Phone Carlo Santana MD Primary Care Provider +1- [phone] Reason for Visit * Reason Onset Date Comments Nurse Triage 11/09/2023 Encounter Details Date Type Department Care Team ([facility] st Contact Info) Description 11/09/2023 Telephone [facility] CHC MED & PEDS 505 [place] [address] Carlo Santana MD 505 [place] [address] Nurse Triage Social History Tobacco Use Types [...] Description 07/12/2024 9:30 AM EDT Clinical Support [facility] MED & PEDS 505 [place] [address] Fariba Gandhi RN 505 [place] [address] documented as of this encounter Visit Diagnoses Not on filedocumented in this encounter Additional Health Concerns Assessment Noted Time PHQ-9 Depression Total Score: 3 06/04/19 23 3:42 PM EDT documented as of this encounter Care Teams Fabric Stretcher Relationship Specialty Start Date End Date Carlo Santana MD [address] [place] [address] PCP - General Internal Medicine 12/28/17 documented as of this encounter
--- OUTSIDE RECORDS SUMMARY | 2024-06-22 18:51 | XMS_ITS | Encounter Summary ---
Author Organization [employer] Address 75 [facility] 7 [place] [address] Care Team Providers Care Importer Or Exporter Name Role Phone Carlo Santana MD Primary Care Provider +1- [phone] Reason for Visit * Reason Onset Date Comments Medication Question 04/25/2024 Encounter Details Date Type Department Care Team ([facility] st Contact Info) Description 04/25/2024 Telephone [facility] MEDICINE 230 [place] [address] Carlo Santana MD [address] [facility] [address] [place], [place] [phone] Medication Question Social History Tobacco Use Types [...] * Telephone Encounter - Quan Mena - 04/25/2024 2:09 PM EST Tc from pt calling in regards to oxyCODONE (Roxicodone) 10 MG immediate release tablet stating she wanted the 5 MG not the 10 MG. If any questions you can contact pt at [phone]. documented in this encounter Plan of Treatment Upcoming Encounters Date Type Department Care Team ([facility] st Contact Info) Description 07/12/2024 9:30 AM EDT Clinical Support [facility] CHC MED & PEDS 505 [place] [address] Fariba Gandhi, HUGO 505 [place] [address] documented as of this encounter Visit Diagnoses Not on filedocumented in this encounter Additional Health Concerns Assessment Noted Time PHQ-9 Depression Total Score: 15 024 11:50 AM EST documented as of this encounter Care Teams Importer Or Exporter Relationship Specialty Start Date End Date Carlo Santana MD 505 [place] [address] PCP - General Internal Medicine 12/28/17 documented as of this encounter
--- OUTSIDE RECORDS SUMMARY | 2024-06-22 18:51 | XMS_ITS | Encounter Summary ---
Author Organization [employer] Address 75 [facility] 7 [place] [address] Care Team Providers Care Compress Engineer Name Role Phone Carlo Santana MD Primary Care Provider +1- [phone] Reason for Visit * Reason Onset Date Comments Call Back Request 06/09/2023 Encounter Details Date Type Department Care Team ([facility] st Contact Info) Description 06/09/2023 Telephone [facility] MEDICINE 230 [place] [address] Carlo Santana MD [address] [facility] [address] [place], [place] [phone] Call Back Request Social History Tobacco Use [...] Tc from pt requesting a call back, process description writer ask pt if wanted to r/s appt but pt sated I wanted to talk about it documented in this encounter Plan of Treatment Upcoming Encounters Date Type Department Care Team (Late st Contact Info) Description 07/12/2024 9:30 AM EDT Clinical Support [facility] MED & PEDS 505 [place] [address] Fariba Gandhi, HUGO 505 [place] [address] documented as of this encounter Visit Diagnoses Not on filedocumented in this encounter Additional Health Concerns Assessment Noted Time PHQ-9 Depression Total Score: 3 06/04/19 23 3:42 PM EDT documented as of this encounter Care Teams Compress Engineer Relationship Specialty Start Date End Date Carlo Santana MD 505 [place] [address] PCP - General Internal Medicine 12/28/17 documented as of this encounter
--- OUTSIDE RECORDS SUMMARY | 2024-06-22 18:51 | XMS_ITS | Encounter Summary ---
Author Organization [employer] Address 75 [facility] 7 [place] [address] Care Team Providers Care Creative Coordinator Name Role Phone Carlo Santana MD Primary Care Provider +1- [phone] Reason for Visit * Reason Onset Date Comments Referral 12/01/2023 Encounter Details Date Type Department Care Team (Late st Contact Info) Description 12/01/2023 Telephone [facility] MEDICINE 230 [place] [address] Carlo Santana MD [address] [facility] [address] [place], [place] [phone] Referral Social History Tobacco Use Types Packs/Day [...] Tc from pt requesting a referral to [facility]. Stated not satisfied with [facility]. Specialty: [facility] Address: [address] [place] [address] If any questions contact pt at [phone] * Telephone Encounter - Angel Luis Oreilly - 12/01/2023 10:34 AM EDT Tc from patient calling to request a referral for a therapist states has been waiting for a call back from [facility] and has not heard a response documented in this encounter Plan of Treatment Upcoming Encounters Date Type Department Care Team (Late st Contact Info) Description 07/12/2024 9:30 AM EDT Clinical Support [facility] MED & PEDS 505 [place] [address] Fariba Gandhi, HUGO 505 [place] [address] documented as of this encounter Visit Diagnoses Not on filedocumented in this encounter Additional Health Concerns Assessment Noted Time PHQ-9 Depression Total Score: 3 06/04/19 23 3:42 PM EDT documented as of this encounter Care Teams Creative Coordinator Relationship Specialty Start Date End Date Carlo Santana MD [address] [place] [address] PCP - General Internal Medicine 12/28/17 documented as of this encounter
--- OUTSIDE RECORDS SUMMARY | 2024-06-22 18:51 | XMS_ITS | Encounter Summary ---
Author Organization [employer] Address [address] [place] [address] Care Team Providers Care Cartridge Belt Puncher Name Role Phone Carlo Santana MD Primary Care Provider +1- [phone] Reason for Visit * Reason Comments Med Refill Encounter Details Date Type Department Care Team (Late Contact Info) Description 05/19/2022 Refill [facility] MED & PEDS [address] [place] [address] Servando Howard MD 505 [place] [address] Chronic left-sided low back pain with left-sided [...] [facility] [address] [place] [address] Fariba Gandhi RN 505 [place], [place] [phone] documented as of this encounter Visit Diagnoses Diagnosis Chronic left-sided low back pain with left-sided sciatica documented in this encounter Care Teams Cartridge Belt Puncher Relationship Specialty Start Date End Date Carlo Santana MD [address] [place] [address] PCP - General Internal Medicine 12/28/17 documented as of this encounter
--- OUTSIDE RECORDS SUMMARY | 2024-06-22 18:51 | XMS_ITS | Encounter Summary ---
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 Name Role Phone Carlo Santana MD Primary Care Provider +1- [phone] Encounter Details Date Type Department Care Team ([facility] st Contact Info) Description 05/02/2023 Orders Only [facility] CHC MED & PEDS 505 [place], [place] [phone] Carlo Santana MD 505 [place], [place] [phone] New daily persistent headache (Primary Dx) Social [...] Upcoming Encounters Date Type Department Care Team ([facility] st Contact Info) Description 07/12/2024 9:30 AM EDT Clinical Support [facility] MED & PEDS 505 [place] [address] Fariba Gandhi, RN 505 [place] [address] documented as of this encounter Procedures Procedure [...] EST Narrative 05/23/2023 11:39 AM EDT ? [facility] ?[address] ?[place] [address] ? Magnetic Resonance Report ? Signed ? Patient: Du,Peri Vera ?MR#: [id number] ?? [id number] ? : 1980 ?Acct:[id number] ? Age/Sex: 42 / F ?ADM Date: 03/06/24 ? Loc: HO.MRI ? Attending Dr: Karl VICTOR ? Ordering Physician: Karl Meade ?? Date of Service: 05/18/23 ?? Procedure(s): MR lumbar spine wo con ?? Accession Number(s): [id number] ? cc: Carlo Santana MD; Karl Meade [...] compression fractures. ? DISC SPACES AND ENDPLATES: Pafeovhw-ex-bjzdlo intervertebral disc space ?? height loss asymmetric to the left at L4-L5 with disc desiccation ?? stable in appearance. Oxcx-vh-vktsuvdm disc volume loss at L3-L4 ?? asymmetric to the left, slightly progressed from previous exam with a ?? stable small Schmorl's node along the superior endplate of L4 on the ?? left. Minor spondylosis is unchanged. Mild disc volume loss at L2-L3 ?? with disc desiccation is stable. Sorvmvkg-qk-hzergw intervertebral disc ?? space height loss asymmetric [...] ?? study. No significant central canal stenosis. Ltje-lj-xlkrzqth ?? bilateral facet joint arthropathy is stable [...] exam. Within the pelvis on ?? the import/export analyst view, there is a 5.5 cm cystic structure in the expected ?? location of the right adnexa, similar in appearance to the previous ?? study, based on evaluation of the import/export analyst view. ? MR/MR lumbar spine wo con [...] roots bilaterally progressed from previous study. ?? Omjpxcke-ya-ursigx left and cszq-rc-dekgwehy right-sided neural ?? foraminal stenosis at L3-L4, [...] of the right ?? adnexa on the import/export analyst view similar to the previous study. As [...] 1135 ? DD/ 2007 ? TD/TT: ? Provider Relations Coordinator: ? Procedure Note Wilfredo, Image - 05/23/2023 [place] [address] Magnetic Resonance Report Signed Patient: Peri Sandy MMR#: [id number] : 1980Acct:[id number] Age/Sex: 42 / FADM Date: 05/18/23 Loc: HO.MRI Attending Dr: Karl VICTOR Ordering Physician: Karl Meade Date of Service: 05/18/23 Procedure(s): MR lumbar spine wo con Accession Number(s): [id number] cc: Carlo Santana MD; Karl Meade EXAMINATION: [...] interval compression fractures. DISC SPACES AND ENDPLATES: Gxywvbzt-gx-rjimnc intervertebral disc space height loss asymmetric to the left at L4-L5 with disc desiccation stable in appearance. Vuzt-tn-brhrrgoj disc volume loss at L3-L4 asymmetric to the left, slightly progressed from previous exam with a stable small Schmorl's node along the superior endplate of L4 on the left. Minor spondylosis is unchanged. Mild disc volume loss at L2-L3 with disc desiccation is stable. Vsurhyhd-fy-iabbgh intervertebral disc space height loss asymmetric to [...] previous study. No significant central canal stenosis. Vvef-sc-cawflgui bilateral facet joint arthropathy is stable with [...] the exam. Within the pelvis on the import/export analyst view, there is a 5.5 cm cystic structure in the expected location of the right adnexa, similar in appearance to the previous study, based on evaluation of the import/export analyst view. MR/MR lumbar spine wo con IMPRESSION: [...] nerve roots bilaterally progressed from previous study. Ytqwsyqn-pr-incstr left and vakl-ke-rsaszkty right-sided neural foraminal stenosis at L3-L4, similar [...] location of the right adnexa on the import/export analyst view similar to the previous study. As noted on the previous study, this likely reflects a physiologic right ovarian cyst but is not definitely characterized as simple-appearing based on this study and therefore follow up ultrasound may be indicated. Dictated By: JOVANY BARROS MD Signed By: <Electronically signed by JOVANY BARROS MD in OV> 05/23/23 1135 DD/ 06 TD/TT: Provider Relations Coordinator: us [facility] External Provider IMG MRI PROCEDURES Final Result * US RETROPERITONEAL LIMITED (05/17/2023 3:44 PM EST) Anatomical Region Laterality Modality Abdomen Ultrasound 05/17/2023 3:44 PM EST Narrative 05/19/2023 7:57 PM EST ? [place] [facility] ?[address] ?[place] [address] ? Ultrasound Report ? Signed ? Patient: Du,Peri M ?MR#: [id number] ?? [id number] ? : 1980 ?Acct:[id number] ? Age/Sex: 42 / F ?ADM Date: 05/17/23 ? Loc: HO.US ? Attending Dr: Luis Manuel Singh MD ? Ordering Physician: Luis Manuel Singh MD ?? Date of Service: 05/17/23 ?? Procedure(s): US retroperitoneal limited ?? Accession Number(s): [id number] ? cc: Luis Manuel Singh MD; Carlo [...] ?05/19/233 ? DD/ 1544 ? TD/TT: ? Provider Relations Coordinator: ? Procedure Note Geovanny Villalobos - 05/19/[address] [address] Ultrasound Report Signed Patient: Peri Sandy MMR#: [id number] : 1980Acct:[id number] Age/Sex: 42 / FADM Date: 05/17/23 Loc: HO.US Attending Dr: Luis Manuel Singh MD Ordering Physician: Luis Manuel Singh MD Date of Service: 05/17/23 Procedure(s): US retroperitoneal limited Accession Number(s): [id number] cc: Luis Manuel Singh MD; Carlo Santana [...] MD in OV> 05/19/231952 DD/ 1544 TD/TT: Provider Relations Coordinator: [facility] External Provider IMG US PROCEDURES Final Result documented in this encounter Visit Diagnoses Diagnosis New daily persistent headache- Primary documented in this encounter Additional Health Concerns Assessment Noted Time PHQ-9 Depression Total Score: 3 06/04/19 23 3:42 PM EDT documented as of this encounter Care Teams Steam Shovel Operating Engineer Relationship Specialty Start Date End Date Carlo Santana MD [address] [place] [address] PCP - General Internal Medicine 12/28/17 documented as of this encounter
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
[2024-06-22 19:32] LABS: MANUAL DIFF FLAG NO
[2024-06-22 19:33] LABS: Basophils Absolute Auto 0.1 X10*3/uL (0.0-0.2); Basophils Percent Auto 0.7 % (0-2); Eosinophils Absolute Auto 0.2 X10*3/uL (0.0-0.4); Eosinophils Percent Auto 2.5 % (0-4); Hemoglobin 13.5 g/dl (12.0-16.0); Imm Gran Abs Auto 0.02 X10*3/uL (0.00-0.03); Imm Gran Pct Auto 0.3 % (0.0-0.4); Lymphocytes Absolute Auto 1.6 X10*3/uL (1.2-4.9); Lymphocytes Percent Auto 20.6 % (20-40); Mean Corpuscular HGB Conc 34.6 g/dl (31.0-35.0); Mean Corpuscular Hemoglobin 32.1 pg (27.0-33.0); Mean Corpuscular Volume 92.6 fL (80.0-98.0); Mean Platelet Volume 8.5 fL (9.4-12.3); Monocytes Absolute Auto 0.3 X10*3/uL (0.1-1.2); Monocytes Percent Auto 3.9 % (2-11); Neutrophils Absolute Auto 5.5 x10*3/uL (2.0-8.3); Platelet Count 329 X10*3/uL (160-400); Red Blood Count 4.21 X10*6/uL (4.20-5.50); Red Cell Distribution Width 12.3 % (11.0-16.0); White Blood Count 7.6 X10*3/uL (4.8-10.8)
[2024-06-22 19:43] LABS: Anion Gap 13 (12-20); Blood Urea Nitrogen 17 mg/dL (9-16); Calcium 8.8 mg/dL (8.4-10.2); Carbon Dioxide 20 mmol/L (22-29); Chloride 112 mmol/L (96-108); Estimated Glomerular Filt Rate > 60; Ethanol 216 mg/dL; Glucose Random 105 mg/dL (60-115); Potassium 4.7 mmol/L (3.3-5.1); Sodium 140 mmol/L (135-145)
[2024-06-22 19:54] LABS: HCG Quantitative < 2 mIU/mL
--- NOTE | 2024-06-22 20:08 | PC.NURSE ---
pt given food per request
--- NOTE | 2024-06-22 20:25 | PC.NURSE ---
pt ambulates to the bathroom with very unsteady gait. assist back to bed
--- NOTE | 2024-06-22 21:42 | PC.NURSE ---
son present to bring pt home
[2024-06-22 21:44] VITALS: BP 111/61; PULSE 96; RESP 16; TEMP 37.1; O2SAT 98
[2024-06-22 21:46] VITALS: BP 111/61; PULSE 96; RESP 16; TEMP 37.1; O2SAT 98
== END 2024-06-22 21:47 | disposition home or self-care (01) ==
PROVIDERS: Physician Assistant; Emergency Provider Emergency Medicine; PCP Internal Medicine
DX: S60.511A Abrasion of right hand, initial encounter (principal); S60.512A Abrasion of left hand, initial encounter; S89.91XA Unspecified injury of right lower leg, initial encounter; R51.9 Headache, unspecified; R94.31 Abnormal electrocardiogram [ECG] [EKG]; R07.89 Other chest pain; M54.2 Cervicalgia; V43.62XA Car passenger injured in collision with other type car in traffic accident, initial encounter; Y93.9 Activity, unspecified; Y92.488 Other paved roadways as the place of occurrence of the external cause; Y99.8 Other external cause status; Z51.81 Encounter for therapeutic drug level monitoring; Z79.899 Other long term (current) drug therapy
CPT/HCPCS: 36415; 70450; 71045; 72125; 73564; 80048; 80307; 81003; 84702; 85025; 93005; 99284

== ENCOUNTER → 2024-06-22 18:39 | Outpatient (BNV) | payer MEDICAID, SELFPAY | PROVIDERS: Emergency Provider Emergency Medicine; PCP Internal Medicine; Visit Provider Internal Medicine Cardiovascular Disease | DX: R94.31 Abnormal electrocardiogram [ECG] [EKG] (principal); Z13.6 Encounter for screening for cardiovascular disorders | CPT/HCPCS: 93010 ==

== ENCOUNTER → 2024-06-22 18:41 | Outpatient (BNV) | payer MEDICAID, SELFPAY | PROVIDERS: Emergency Provider Emergency Medicine; PCP Internal Medicine; Visit Provider Radiology Diagnostic Radiology | DX: M25.561 Pain in right knee (principal); R07.9 Chest pain, unspecified; S00.93XA Contusion of unspecified part of head, initial encounter; M54.2 Cervicalgia | CPT/HCPCS: 70450; 71045; 72125; 73564 ==

== ENCOUNTER 2024-07-11 13:34 | Outpatient (AMB) | payer MEDICAID, SELFPAY ==
--- NOTE | 2024-07-11 13:49 | A.OFFVIS_ITS ---
Vital Signs 07/11/24 13:50 Height 5 ft 2 in Weight 123 lb BMI 22.5 BP 122/74 Blood Pressure Location Lt brachial Position Sitting Respiration 16 Pulse 69 Pulse Source Pulse Oximeter Pulse Oximetry (%) 99 Oxygen Delivery Method Room Air Intake Visit Reasons: Lower back pain must keep appt Etched Circuit Processor Required: No Allergies No Known Allergies Allergy (Verified 07/11/24 13:51) Medication List - Last Reconciled 07/11/24 by Karely Arvizu LPN acetaminophen (Tylenol) 325 mg PO TID PRN 30 days amlodipine 5 mg PO QAM clonazepam 1 mg PO BEDTIME PRN duloxetine 30 mg PO BID food supplemt, lactose-reduced (Boost High Protein) ea PO BID hydroxyzine pamoate 50 mg PO Q8H PRN incontinence pad, liner, disp (Dry Comfort pads) As directed lidocaine 5% 1 appl topical DAILY PRN methocarbamol 1,000 mg PO TID PRN 30 days ondansetron HCl 8 mg PO Q8H PRN oxybutynin chloride ER 10 mg PO DAILY pantoprazole 20 mg PO BID PRN spironolactone 200 mg PO QAM topiramate 50 mg PO BID PRN underpads (Bed Underpads) As directed two nightly. ziprasidone HCl 2 caps PO BEDTIME HPI Comments Details: Peri is in my office on the 6th attempt to see me. Before that she is scheduled 5 appointments with me and no showed for the appointment. She presented today with complains on pain in the right shoulder. She reported images of the right shoulder were done long time ago. I offered her the repeated image of the right shoulder and possibility to perform injections into right shoulder. very pleasant 42 years old female who is in my office for the follow-up .In the past she received medial branch block with me in lower lumbar spine which did not alleviate her pain at all, she also received transforaminal epidural steroid injection (by Dr. Ferrer) which also resulted in no improvement. She is no longer under observation of Dr. Hammond, she was planned to go for L4-5 posterior fusion. She cancel numerous appointment with neurosurgery office and now she is banned from visiting this office. I recommended her to see help elsewhere with her lower back pain problem. I recommended her potentially to seek attention of Dr. Temi Rooney She was diagnose with nerve root compression cervical spine. She is considered to be a candidate for cervical surgery as well. In the past on physical exam attention was attracted to sacroiliac joint problems on the right. she went for bariatric surgery and after significant pain reduction she went for panniculectomy. Unfortunately the panniculectomy got complicated by wound dehiscence. Dr. Hammond he is reluctant to operate on her it was planned before until the dehiscence wound will completely heal. She requests me to prescribe some medications to temporize her pain syndrome. [facility] Medical History Elevated fecal calprotectin Overweight Morbid obesity Obesity BMI 38.0-38.9,adult Back pain Diarrhea Numbness Insomnia Postgastrectomy malabsorption History of headache Arthritis Fibromyalgia HTN (hypertension) Intra-abdominal adhesions Depression Hidradenitis Abnormal EKG Bipolar 1 disorder Hx of borderline personality disorder ADHD Chronic post-traumatic stress disorder (PTSD) Pre-op evaluation Surgical History S/P panniculectomy S/P laparoscopic sleeve gastrectomy Hx of esophagogastroduodenoscopy Gastric bypass status for obesity Family History Mother Obesity Diabetes mellitus Sister No problems noted. Son Leukemia Obesity Social History Are you a primary day care director to a significant other at home: No Do you presently have visiting nurse or other home services: No Alcohol intake: current Alcohol intake frequency: a few times a week Patient Tobacco Use Status: Never used Tobacco Advance Directives Date on File: 05/15/21 service: No Current occupational status: unemployed Review of Systems Const All systems reviewed & are unremarkable except as noted in HPI and below Physical Exam Vital Signs: Last Vital Signs Pulse 69 07/11/24 13:50 Resp 16 07/11/24 13:50 BP 122/74 07/11/24 13:50 Pulse Ox 99 07/11/24 13:50 Oxygen Delivery Method Room Air 07/11/24 13:50 BMI result Body Mass Index 22.5 General: Appears afebrile. Alert and oriented. Mood and affect appropriate. Follows and participates in conversation appropriately. Respiratory effort is unlabored. Able to transition from sit to stand unassisted. Ambulates with bilaterally normal heel strike and toe off Back/Spine/Pelvis Other: Lumbar extension and flexion reproduces significant pain. Right groin pain with I/E hip rotations. Multiple widespread TTPs 16/16 bilaterally, including upper and lower extremities. Marcus test, pelvic compression test, Gaenslen test, all positive on the right. Cervical Spine: cervical ROM normal, cervical muscular tenderness and No Cervical spine tenderness Thoracic/Lumbar Spine: thoracic and lumbar spine normal to inspection, Lasegue's sign positive on the right and diffuse, paraspinal muscle tenderness, No thoracic spinal tenderness, lumbar spinal tenderness and straight leg raise positive right at 50 degrees Pelvis: buttock tenderness on the right Sacroiliac joints: bilaterally (+Marcus's test) tender to palpation Extrem General: Yes capillary refill normal, Yes no clubbing, cyanosis or edema and Yes no calf tenderness Right lower extremity: hip/thigh Details: tenderness (lateral hip); no swelling, no ecchymosis, no crepitus and no unusual warmth Results Reviewed Results Reviewed: MR LUMBAR SPINE WITHOUT CONTRAST 06/03/22 CLINICAL INFORMATION: Lower back pain with left-sided sciatica. COMPARISON: Plain films of the lumbar spine 07/16/2017. FINDINGS: VERTEBRAL BODIES AND PARASPINAL STRUCTURES: There is a mild grade 1 anterolisthesis of L4 on L5. There are retrolistheses of L1 on L2 and L3 on L4. There is multilevel narrowing of intervertebral disc height throughout the spine, sparing L5-S1. This is most severe at L1-L2 and L4-L5. Vertebral body heights are maintained, and no fractures are demonstrated. There are degenerative endplate contour changes with mild edematous signal at L3-L4. There is a Schmorl's node in superior endplate of L2 with mild edematous signal. Vertebral body heights are maintained and no fractures are demonstrated. Overall, marrow signal is homogenous. The visualized retroperitoneal structures are unremarkable. There is an incompletely visualized right ovarian cyst measuring up to 5.1 cm. CONUS MEDULLARIS AND CAUDA EQUINA: Normal, terminating at the level of T12-L1. The lower thoracic spinal cord appears normal. The cauda equina nerve roots and filum terminale appear normal. SPINAL LEVELS: T12-L1: The facet joints appear normal bilaterally. Disc contour is normal. There is no central stenosis or foraminal narrowing. L1-L2: There is mild bilateral facet arthropathy with ligamenta flava hypertrophy and small facet joint effusions. There is a shallow posterior disc protrusion without significant mass effect on the thecal sac extending into the inferior neural foramina without definite exiting nerve root impingement. There is no central stenosis. L2-L3: There is mild bilateral facet arthropathy. There is a small right foraminal disc protrusion with an annular fissure and there may be impingement on the exiting right L2 nerve root. The left neural foramen is patent, and there is no central stenosis. L3-L4: There is moderate bilateral facet arthropathy with ligamenta flava hypertrophy and facet joint effusions. There is a broad-based posterior disc protrusion which is focally more prominent in the midline with some distortion of the ventral thecal sac and there is narrowing of the subarticular recess on the left. There is mild central stenosis. There are bilateral foraminal disc protrusions extending far laterally, more prominent on the left and there is impingement on the exiting and extraforaminal L3 nerve roots, more severely on the left. L4-L5: There is severe bilateral facet arthropathy with ligamenta flava hypertrophy and facet joint effusions. There may be a small synovial cyst developing anteromedially off the left facet joint and there is some distortion of the dorsal thecal sac laterally on the left. There is unroofing of the disc as a result of the anterolisthesis. There are bilateral foraminal disc protrusions without definite exiting nerve root impingement. There is mild narrowing of the bilateral subarticular recesses, but there is no significant central stenosis. L5-S1: There is markedly severe right and severe left facet arthropathy. There is a shallow posterior disc protrusion without mass effect on the thecal sac and there is no central stenosis. There is no foraminal nerve root impingement IMPRESSION: 1. There is a grade 1 anterolisthesis of L4 on L5 secondary to facet arthropathy. There may be a small synovial cyst developing anteromedially on the left. There are bilateral foraminal disc protrusions without definite exiting nerve root impingement. There is no significant central stenosis. 2. At L3-L4 there is moderate facet arthropathy. There is a broad-based posterior disc protrusion extending far laterally with impingement on the exiting and extraforaminal L3 nerve roots, more severely on the left. There is mild central stenosis. 3. At L2-L3 there is a small right foraminal disc protrusion with an annular fissure and there may be impingement on the exiting right L2 nerve root. There is no central stenosis. 4. At L5-S1 there is markedly severe right and severe left facet arthropathy. There is no central stenosis or foraminal nerve root impingement. 5. There is a right sided ovarian cyst measuring up to 5.1 cm. Recommend prompt follow-up pelvic ultrasound. Assessment & Plan Assessment & Plan (1) Numbness and tingling in both hands: Code(s): R20.0 - Anesthesia of skin; R20.2 - Paresthesia of skin Category: Medical (2) Numbness and tingling of right leg: Code(s): R20.0 - Anesthesia of skin; R20.2 - Paresthesia of skin Category: Medical (3) Lumbar radiculopathy: Code(s): M54.16 - Radiculopathy, lumbar region Category: Medical (4) Lumbar facet arthropathy: Code(s): M47.816 - Spondylosis without myelopathy or radiculopathy, lumbar region Category: Medical (5) Right hip pain: Code(s): M25.551 - Pain in right hip Category: Medical (6) Sacroiliitis: Code(s): M46.1 - Sacroiliitis, not elsewhere classified Category: Medical (7) Sacroiliac joint dysfunction of right side: Code(s): M53.3 - Sacrococcygeal disorders, not elsewhere classified Category: Medical (8) Arthritis of right shoulder: Code(s): M19.011 - Primary osteoarthritis, right shoulder Category: Medical (9) Right shoulder pain: Code(s): M25.511 - Pain in right shoulder Category: Medical Plan She is no longer allowed to go to Neurosurgery to Dr. Hammond because she missed so many appointments with him. She is interested in neurosurgery I recommended to seek neurosurgical attention elsewhere, for example [facility] Dr. Temi Bhatti. She also missed appointment with me 5 times. She presents today with complains on pain in the right shoulder. She reports no recent right shoulder images. I will send her for x-ray of the right shoulder. I will perform right shoulder steroid injections if there are any significant changes on right shoulder joint. I will see her in 2 weeks when results of the shoulder x-ray will be ready. Orders: Orders XR shoulder RT min 2V Today M19.011 - Primary osteoarthritis, right shoulder, M25.511 - Pain in right shoulder Coding Level of Care Code Est Pt Level 3 (82698) Diagnoses Numbness and tingling in both hands R20.0; R20.2 Numbness and tingling of right leg R20.0; R20.2 Lumbar radiculopathy M54.16 Lumbar facet arthropathy M47.816 Right hip pain M25.551 Sacroiliitis M46.1 Sacroiliac joint dysfunction of right side M53.3 Arthritis of right shoulder M19.011 Right shoulder pain M25.511
[2024-07-11 13:50] VITALS: BP 122/74; PULSE 69; RESP 16; O2SAT 99; BMI 22.5
--- OUTSIDE RECORDS SUMMARY | 2024-07-11 14:52 | XMS_ITS | Encounter Summary ---
Author Organization [employer] Address [address] [facility] 7 [place] [address] Care Team Providers Care Undercutter Name Role Phone Carlo Santana MD Primary Care Provider +1- [phone] Encounter Details Date Type Department Care Team (Late st Contact Info) Description 04/03/2024 Telephone [facility] MEDICINE [address] [place] [address] Carlo Santana MD [address] [place], [place] [phone] Social History Tobacco Use Types Packs/Day Years [...] Description 07/12/2024 9:30 AM EDT Clinical Support [facility] MED & PEDS [address] [place] [address] Fariba Gandhi, RN [address] [place] [address] documented as of this encounter Visit Diagnoses Not on filedocumented in this encounter Additional Health Concerns Assessment Noted Time PHQ-9 Depression Total Score: 15 024 11:50 AM EST documented as of this encounter Care Teams Undercutter Relationship Specialty Start Date End Date Carlo Santana MD [address] [place] [address] PCP - General Internal Medicine 12/28/17 documented as of this encounter
--- OUTSIDE RECORDS SUMMARY | 2024-07-11 14:52 | XMS_ITS | Encounter Summary ---
Author Organization [employer] Address [address] [facility] 7 [place] [address] Care Team Providers Care Scorekeeper Name Role Phone Carlo Santana MD Primary Care Provider [phone]- [phone] Reason for Visit * Reason Onset Date Comments FYI 08/10/2023 Encounter Details Date Type Department Care Team (Late st Contact Info) Description 08/10/2023 Telephone [facility] MEDICINE [address] [place] [address] Carlo Santana MD [address] [place], [place] [phone] FYI Social History Tobacco Use Types Packs/Day [...] [facility] [address] [place] [address] Fariba Gandhi, HUGO [address] [place] [address] documented as of this encounter Visit Diagnoses Not on filedocumented in this encounter Additional Health Concerns Assessment Noted Time PHQ-9 Depression Total Score: 3 06/04/19 23 3:42 PM EDT documented as of this encounter Care Teams Scorekeeper Relationship Specialty Start Date End Date Carlo Santana MD [address] [place] [address] PCP - General Internal Medicine 12/28/17 documented as of this encounter
--- OUTSIDE RECORDS SUMMARY | 2024-07-11 14:52 | XMS_ITS | Encounter Summary ---
Author Organization [facility] Address [address] [facility] [place] [address] Care Team Providers Care Certified Surgical Technologist Name Role Phone Chandni Boogie MD Primary Care Provider Unavailable Mary Lott MD Primary Care Provider Unavail able Maria Antonia Gerber MD Primary Care Provider Unavaila [facility], Pcp Primary Care Provider Unavailabl e Encounter Details Date Type Department Care Team Description 01/06/2016 Release of Information Medical Records [address] [place] [address] [facility] [place] [address] Abstract, Provider Social History Tobacco Use Types [...] on filedocumented in this encounter Care Teams Certified Surgical Technologist Relationship Specialty Start Date End Date Chandni Boogie MD PCP - General Internal Medicine 06/09/1204/19 Mary Lott MD PCP - General Internal Medicine 04/20/16 07/15/16 Maria Antonia Gerber MD PCP - General Internal Medicine 07/16/16 01/22/18 [facility] PCP - General Internal Medicine 01/23/18 documented as of this encounter
--- OUTSIDE RECORDS SUMMARY | 2024-07-11 14:52 | XMS_ITS | Encounter Summary ---
Author Organization [employer] Address [address] [place] [address] 7 [place] [address] Care Team Providers Care Dredge Hand Name Role Phone Carlo Santana MD Primary Care Provider +1- [phone] Reason for Visit * Reason Onset Date Comments Med Refill 09/14/2023 Encounter Details Date Type Department Care Team ([facility] st Contact Info) Description 09/14/2023 Telephone [facility] MED & PEDS [address] [place] [address] Carlo Santana MD [address] [place] [address] Med Refill Social History Tobacco Use Types [...] 5 % patch To be sent to[facility]/pharmacy #[id number] [place] - [address] [facility] documented in this encounter Plan of Treatment Upcoming Encounters Date Type Department Care Team (Late st Contact Info) Description 07/12/2024 9:30 AM EDT Clinical Support [facility] MED & PEDS [address] [place] [address] Fariba Gandhi, HUGO [address] [place] [address] documented as of this encounter Visit Diagnoses Not on filedocumented in this encounter Additional Health Concerns Assessment Noted Time PHQ-9 Depression Total Score: 3 06/04/19 23 3:42 PM EDT documented as of this encounter Care Teams Dredge Hand Relationship Specialty Start Date End Date Carlo Santana MD [address] [place] [address] PCP - General Internal Medicine 12/28/17 documented as of this encounter
--- OUTSIDE RECORDS SUMMARY | 2024-07-11 14:52 | XMS_ITS | Encounter Summary ---
Author Organization [employer] Address [address] [facility] 7 [place] [address] Care Team Providers Care Tent Assembler Name Role Phone Carlo Santana MD Primary Care Provider +1- [phone] Reason for Visit * Reason Onset Date Comments Results 01/03/2024 Encounter Details Date Type Department Care Team ([facility] st Contact Info) Description 01/03/2024 Telephone [facility] MEDICINE [address] [place] [address] Carlo Santana MD [address] [facility] [address] [place], [place] [phone] Results Social History Tobacco Use Types Packs/Day Years Used Date Smoking Tobacco: Never Passive Smoke Exposure: Never Smokeless Tobacco: Never Alcohol Use Standard Drinks/Week Comments Never 0 (1 standard drink = 0.6 oz pur e alcohol) Depression Answer Date Recorded Patient Health Questionnaire-9 Score 3 06/03/2022 Housing Stability Answer Date Recorded What is your housing situation today? I have dionne willaim 12/27/[address] you li [...] borderline values. THIS TEST WAS PERFORMED AT: [employer] [facility] [address] [place] [address] CHERYL MOLINA MD,PHD,BATSHEVA Dr. Santana, This is the results found on [employer] for pt recent Calprotectin stool testing. Pt would like a call back with the interpretation of the results. * Telephone Encounter - Quan Mena - 01/03/2024 11:01 AM EDT TC from pt requesting call back regarding Results. Type of results: Labs Date when done: 12/24/23 Facility: [facility] labs documented in this encounter Plan of Treatment Upcoming Encounters Date Type Department Care Team (Late st Contact Info) Description 07/12/2024 9:30 AM EDT Clinical Support [facility] CH[facility] MED & PEDS [address] [place] [address] Fariba Gandhi, HUGO [address] [place] [address] documented as of this encounter Visit Diagnoses Not on filedocumented in this encounter Additional Health Concerns Assessment Noted Time PHQ-9 Depression Total Score: 3 06/04/19 23 3:42 PM EDT documented as of this encounter Care Teams Tent Assembler Relationship Specialty Start Date End Date Carlo Santana MD 505 [place] [address] PCP - General Internal Medicine 12/28/17 documented as of this encounter
--- OUTSIDE RECORDS SUMMARY | 2024-07-11 14:52 | XMS_ITS | Encounter Summary ---
Author Organization [employer] Address [address] [facility] 7 [place] [address] Care Team Providers Care Administrator Health Care Facility Name Role Phone Carlo Santana MD Primary Care Provider +1- [phone] Reason for Visit * Reason Onset Date Comments Med Refill 06/14/2024 Encounter Details Date Type Department Care Team (Late st Contact Info) Description 06/14/2024 Telephone [facility] MEDICINE [address] [place] [address] Carlo Santana MD [address] [place], [place] [phone] Med Refill Social History Tobacco Use Types [...] Upcoming Encounters Date Type Department Care Team ([facility] st Contact Info) Description 07/12/2024 9:30 AM EDT Clinical Support [facility] MED & PEDS [address] [place] [address] Fariba Gandhi, UHGO 505 [place] [address] documented as of this encounter Visit Diagnoses Not on filedocumented in this encounter Additional Health Concerns Assessment Noted Time PHQ-9 Depression Total Score: 15 024 11:50 AM EST documented as of this encounter Care Teams Administrator Health Care Facility Relationship Specialty Start Date End Date Carlo Santana MD [address] [place] [address] PCP - General Internal Medicine 12/28/17 documented as of this encounter
--- OUTSIDE RECORDS SUMMARY | 2024-07-11 14:52 | XMS_ITS | Encounter Summary ---
Author Organization [employer] Address [address] [facility] 7 [place] [address] Care Team Providers Care Four Roll Calender Operator Name Role Phone Carlo Santana MD Primary Care Provider +1- [phone] Reason for Visit * Reason Onset Date Comments Prior Authorization 02/07/2024 Encounter Details Date Type Department Care Team ([facility] st Contact Info) Description 02/07/2024 Telephone [facility] MEDICINE [address] [place] [address] Carlo Santana MD 505 [place] [address] Prior Authorization Social History Tobacco Use Types [...] Description 07/12/2024 9:30 AM EDT Clinical Support [facility] MED & PEDS [address] [place] [address] Fariba Gandhi, RN [address] [place] [address] documented as of this encounter Visit Diagnoses Not on filedocumented in this encounter Additional Health Concerns Assessment Noted Time PHQ-9 Depression Total Score: 15 024 11:50 AM EST documented as of this encounter Care Teams Four Roll Calender Operator Relationship Specialty Start Date End Date Carlo Santana MD [address] [place] [address] PCP - General Internal Medicine 12/28/17 documented as of this encounter
--- OUTSIDE RECORDS SUMMARY | 2024-07-11 14:52 | XMS_ITS | Encounter Summary ---
Author Organization [employer] Address [address] [place] [address] 7 [place] [address] Care Team Providers Care Commercial Lending Relationship Manager Name Role Phone Carlo Santana MD Primary Care Provider +1- [phone] Reason for Visit * Reason Onset Date Comments Medication Question 01/31/2024 Encounter Details Date Type Department Care Team ([facility] Contact Info) Description 01/31/2024 Telephone [facility] CHC MED & PEDS [address] [place] [address] Carlo Santana MD [address] [place] [address] Medication Question Social History Tobacco Use Types [...] Mayorga LPN - 01/31/2024 10:10 AM EST [employer] Floor Supervisor communicated with the patient's insurance provider, who indicated that prior authorization is not required. Oxycodone was discontinued because the patient received a prescription for acetaminophen 600 mg from another physician's office on January 25, 2024. I requested that the [place] CST nurse join this discussion to ensure she is informed about the patient's situation. The insurance expressed concerns regarding the patient's liver health due to the use of these medications. An override for Oxycodone was granted; however, it was noted that it will be revoked if the patient continuesto use this medication (acetaminophen 600 mg). This information is being shared with both the MEDICAL ADMINISTRATIVE ASSISTANT nurse and the primary care physician to [...] 9:30 AM EDT Clinical Support [facility] MED & PEDS [address] [place] [address] Fariba Gandhi, HUGO [address] [place] [address] documented as of this encounter Visit Diagnoses Not on filedocumented in this encounter Additional Health Concerns Assessment Noted Time PHQ-9 Depression Total Score: 15 024 11:50 AM EST documented as of this encounter Care Teams Commercial Lending Relationship Manager Relationship Specialty Start Date End Date Carlo Santana MD [address] [place] [address] PCP - General Internal Medicine 12/28/17 documented as of this encounter
--- OUTSIDE RECORDS SUMMARY | 2024-07-11 14:52 | XMS_ITS | Encounter Summary ---
Author Organization [employer] Address 75 [facility] 7 [place] [address] Care Team Providers Care Personal Coach Name Role Phone Carlo Santana MD Primary Care Provider +1- [phone] Encounter Details Date Type Department Care Team (Late st Contact Info) Description 08/05/2023 Telephone [facility] MEDICINE [address] [place] [address] Carlo Santana MD [address] [facility] [address] [address] [place], [place] [phone] Social History Tobacco Use Types Packs/Day Years [...] Encounters Date Type Department Care Team ([facility] st Contact Info) Description 07/12/2024 9:30 AM EDT Clinical Support [facility] MED & PEDS [address] [place] [address] Fariba Gandhi, RN 505 [place] [address] documented as of this encounter Visit Diagnoses Not on filedocumented in this encounter Additional Health Concerns Assessment Noted Time PHQ-9 Depression Total Score: 3 06/04/19 23 3:42 PM EDT documented as of this encounter Care Teams Personal Coach Relationship Specialty Start Date End Date Carlo Santana MD 505 [place] [address] PCP - General Internal Medicine 12/28/17 documented as of this encounter
--- OUTSIDE RECORDS SUMMARY | 2024-07-11 14:52 | XMS_ITS | Encounter Summary ---
Author Organization [employer] Address 75 [facility] 7 [place] [address] Care Team Providers Care Dairy Tester Name Role Phone Carlo Santana MD Primary Care Provider +1- [phone] Reason for Visit * Reason Onset Date Comments Medication Question 06/11/2024 Encounter Details Date Type Department Care Team ([facility] st Contact Info) Description 06/11/2024 Telephone [facility] MEDICINE [address] [place] [address] Carlo Santana MD [address] [facility] [address] [place], [place] [phone] Medication Question Social History Tobacco Use Types [...] MG immediate release tablet. Contact pt at [phone] documented in this encounter Plan of Treatment Upcoming Encounters Date Type Department Care Team ([facility] st Contact Info) Description 07/12/2024 9:30 AM EDT Clinical Support [facility] MED & PEDS [address] [place] [address] Fariba Gandhi RN 505 [place] [address] documented as of this encounter Visit Diagnoses Not on filedocumented in this encounter Additional Health Concerns Assessment Noted Time PHQ-9 Depression Total Score: 15 024 11:50 AM EST documented as of this encounter Care Teams Dairy Tester Relationship Specialty Start Date End Date Carlo Santana MD [address] [place] [address] PCP - General Internal Medicine 12/28/17 documented as of this encounter
--- OUTSIDE RECORDS SUMMARY | 2024-07-11 14:52 | XMS_ITS | Encounter Summary ---
Author Organization [employer] Address 75 [facility] 7 [place] [address] Care Team Providers Care Time Clock Mechanic Name Role Phone Carlo Santana MD Primary Care Provider +1- [phone] Reason for Visit * Reason Onset Date Comments Appointment Request 06/04/2024 Encounter Details Date Type Department Care Team ([facility] st Contact Info) Description 06/04/2024 Telephone [facility] MEDICINE [address] [place] [address] Carlo Santana MD [address] [facility] [address] [place], [place] [phone] Appointment Request Social History Tobacco Use Types [...] R/s ppt from 05/31/24. Contact pt at [phone] documented in this encounter Plan of Treatment Upcoming Encounters Date Type Department Care Team ([facility] st Contact Info) Description 07/12/2024 9:30 AM EDT Clinical Support [facility] CHC MED & PEDS 505 [place] [address] Fariba Gandhi RN 505 [place] [address] documented as of this encounter Visit Diagnoses Not on filedocumented in this encounter Additional Health Concerns Assessment Noted Time PHQ-9 Depression Total Score: 15 024 11:50 AM EST documented as of this encounter Care Teams Time Clock Mechanic Relationship Specialty Start Date End Date aCrlo Santana MD 505 [place] [address] PCP - General Internal Medicine 12/28/17 documented as of this encounter
--- OUTSIDE RECORDS SUMMARY | 2024-07-11 14:52 | XMS_ITS | Encounter Summary ---
Author Organization [employer] Address [address] [place] [address] 7 [place] [address] Care Team Providers Care Soda Maker Name Role Phone Carlo Santana MD Primary Care Provider +1- [phone] Encounter Details Date Type Department Care Team ([facility] st Contact Info) Description 06/14/2024 Orders Only [facility] MED & PEDS 505 [place], [place] [phone] Carlo Santana MD 505 [place] [address] Chronic left-sided low back pain with left-sided [...] [facility] 505 [place] [address] Fariba Gandhi, RN 505 [place] [address] documented as of this encounter Procedures Procedure Name Priority Date/Time Associated Diagnosis Comments XR KNEE 4+ VIEWS RIGHT Routine 06/22/2024 7:58 PM EDT XR CHEST 1 VIEW Routine 06/22/2024 7:[address] CERVICAL SPINE WO CONTRAST Routine 06/22/2024 7:[address] HEAD WO CONTRAST Routine 06/22/2024 7 :16 PM EDT documented in this encounter Results * XR Knee 4+ Views Right (06/22/2024 7:58 PM EDT) Anatomical Region Laterality Modality Lower Extremities, Knee Right [facility] 06/22/2024 7:58 PM EDT Narrative 06/22/2024 8:00 PM EDT ? [facility] ?[address] ?[place] [address] ?XRay Report ? Signed ? Patient: Du,Peri M ?MR#: [id number] ?? 338 ? : 1980 ?Acct:[id number] ? Age/Sex: 43 / F ?ADM Date: 06/22/24 ? Loc: HO.ED ? Attending Dr: ? Ordering Physician: Javier Dubois ?? Date of Service: 06/22/24 ?? Procedure(s): XR knee RT 4V ?? Accession Number(s): [id number] ? cc: Carlo Santana MD; Javier uDbois ? CLINICAL HISTORY: trauma,pain ? 4 view right knee ? Comparison: None ? Findings: ?? No fractures or dislocations. ?? No significant loss of joint space, osteophytes, or erosions. ?? No joint effusion. ?? No radiopaque foreign body. ? IMPRESSION: ?? 1. No acute findings. ? This document has been electronically signed by: Luisito Goldman MD on ?? 06/22/2024 19:58:57 ? Dictated By: ?Luisito Goldman MD ? Signed By: ?<Electronically signed by Luisito Goldman MD in OV> ? 06/22/241999 ? DD/ 57 ? TD/TT: 06/22/241957 ? Certified Travel Counselor: ? Procedure Note Wilfredo, Geovanny - 06/22/2024 [place] [address] XRay Report Signed Patient: Peri Sandy MMR#: [id number] 338 : 1980Acct:[id number] Age/Sex: 43 / FADM Date: 06/22/24 Loc: HO.ED Attending Dr: Ordering Physician: Javier Dubois Date of Service: 06/22/24 Procedure(s): XR knee RT 4V Accession Number(s): [id number] cc: Carlo Santana MD; Javier Dubois CLINICAL HISTORY: trauma,pain 4 view right knee Comparison: None Findings: No fractures or dislocations. No significant loss of joint space, osteophytes, or erosions. No joint effusion. No radiopaque foreign body. IMPRESSION: 1. No acute findings. This document has been electronically signed by: Luisito Goldman MD on 06/22/2024 19:58:57 Dictated By: Luisito Goldman MD Signed By: <Electronically signed by Luisito Goldman MD in OV> 06/22/241999 DD/ 57 TD/TT: 06/22/241957 Certified Travel Counselor: us [facility] External Provider IMG XR PROCEDURES Edited Result - Final * CT Cervical Spine w/o Contrast (06/22/2024 7:56 PM EDT) Anatomical Region Laterality Modality Spine, C-spine Computed Tomogra phy 06/22/2024 7:56 PM EDT Narrative 06/22/2024 7:58 PM EDT ? [facility] ?[address] ?[place] [address] ? CT Scan Report ? Signed ? Patient: Peri Sandy ?MR#: [id number] ?? 338 ? : 1980 ?Acct:[id number] ? Age/Sex: 43 / F ?ADM Date: 06/22/24 ? Loc: HO.ED ? Attending Dr: ? Ordering Physician: Javier Dubois ?? Date of Service: 06/22/24 ?? Procedure(s): CT cervical spine wo IV con ?? Accession Number(s): [id number] ? cc: Carlo Santana MD; Javier Dubois ? Report Number: ?? [id number]: Total DLP = ??333.00 mGy-cm ? CLINICAL HISTORY: trauma ? CT cervical spine without contrast ? Comparison: MR/DE/SR - MR CERVICAL SPINE WO CON - 04/01/23 08:50 EST ? Findings: ?? Normal vertebral body alignment. ?? No significant degenerative change. ?? No acute fractures or dislocations. ?? No acute findings on limited view of the intracranial contents. ?? No cervical fluid collections or masses. ?? No consolidation or effusion at the lung apices. ? IMPRESSION: ?? No acute findings. ? This document has been electronically signed by: Luisito Goldman MD on ?? 06/22/2024 19:56:52 ? Dictated By: ?Luisito Goldman MD ? Signed By: ?<Electronically signed by Luisito Goldman MD in OV> ? 06/22/241957 ? DD/ 55 ? TD/TT: 06/22/241955 ? Certified Travel Counselor: ? Procedure Note Donotluisinterpreter, Image - 06/22/[address] [address] [address] Scan Report Signed Patient: Peri Sandy MMR#: [id number] 338 : 1980Acct:[id number] Age/Sex: 43 / FADM Date: 06/22/24 Loc: HO.ED Attending Dr: Ordering Physician: Javier Dubois Date of Service: 06/22/24 Procedure(s): CT cervical spine wo IV con Accession Number(s): [id number] cc: Carlo Santana MD; Javier Dubois Report Number: [id number]: Total DLP = 333.00 mGy-cm CLINICAL HISTORY: trauma CT cervical spine without contrast Comparison: MR/DE/SR - MR CERVICAL SPINE WO CON - 04/01/23 08:50 EST Findings: Normal vertebral body alignment. No significant degenerative change. No acute fractures or dislocations. No acute findings on limited view of the intracranial contents. No cervical fluid collections or masses. No consolidation or effusion at the lung apices. IMPRESSION: No acute findings. This document has been electronically signed by: Luisito Goldman MD on 06/22/2024 19:56:52 Dictated By: Luisito Goldman MD Signed By: <Electronically signed by Luisito Goldman MD in OV> 06/22/241957 DD/ 55 TD/TT: 06/22/241955 Certified Travel Counselor: [facility] External Provider IMG CT PROCEDURES Edited Result - Final * XR Chest 1 View (06/22/2024 7:56 PM EDT) Anatomical Region Laterality Modality Chest Radiographic Yi ging 06/22/2024 7:56 PM EDT Narrative 06/22/2024 7:58 PM EDT ? [facility] ?[address] ?[place] [address] ?XRay Report ? Signed ? Patient: Du,Peri M ?MR#: [id number] ?? 338 ? : 1980 ?Acct:[id number] ? Age/Sex: 43 / F ?ADM Date: 06/22/24 ? Loc: HO.ED ? Attending Dr: ? Ordering Physician: Javier Dubois ?? Date of Service: 06/22/24 ?? Procedure(s): XR chest 1V ?? Accession Number(s): [id number] ? cc: Carlo Santana MD; Javier Dubois ? CLINICAL HISTORY: trauma ? EXAM: One view chest x-ray ? COMPARISON: None ? FINDINGS: ?? Normal cardiac, mediastinal, and hilar contours. ?? Normal heart size. ?? No pleural effusion or pneumothorax. ?? Lungs are clear. ?? No acute bone finding. ? IMPRESSION: ?? 1. No acute cardiopulmonary process demonstrated. ? This document has been electronically signed by: Luisito Goldman MD on ?? 06/22/2024 19:56:47 ? Dictated By: ?Luisito Goldman MD ? Signed By: ?<Electronically signed by Luisito Goldman MD in OV> ? 06/22/241957 ? DD/ 55 ? TD/TT: 06/22/241955 ? Certified Travel Counselor: ? Procedure Note Geovanny Villalobos - 06/22/[address] [address] XRay Report Signed Patient: Peri Sandy MMR#: [id number] 338 : 1980Acct:[id number] Age/Sex: 43 / FADM Date: 06/22/24 Loc: HO.ED Attending Dr: Ordering Physician: Javier Dubois Date of Service: 06/22/24 Procedure(s): XR chest 1V Accession Number(s): [id number] cc: Carlo Santana MD; Javier Dubois CLINICAL HISTORY: trauma EXAM: One view chest x-ray COMPARISON: None FINDINGS: Normal cardiac, mediastinal, and hilar contours. Normal heart size. No pleural effusion or pneumothorax. Lungs are clear. No acute bone finding. IMPRESSION: 1. No acute cardiopulmonary process demonstrated. This document has been electronically signed by: Luisito Goldman MD on 06/22/2024 19:56:47 Dictated By: Luisito Goldman MD Signed By: <Electronically signed by Luisito Goldman MD in OV> 06/22/241957 DD/ 55 TD/TT: 06/22/241955 Certified Travel Counselor: us [facility] External Provider IMG XR PROCEDURES Edited Result - Final * CT Head w/o Contrast (06/22/2024 7:16 PM EDT) Anatomical Region Laterality Modality Head, Neck Computed Tomogra phy 06/22/2024 7:16 PM EDT Narrative 06/22/2024 7:18 PM EDT ? [facility] ?[address] ?[place] [address] ? CT Scan Report ? Signed ? Patient: Peri Sandy ?MR#: [id number] ?? 338 ? : 1980 ?Acct:[id number] ? Age/Sex: 43 / F ?ADM Date: 06/22/24 ? Loc: HO.ED ? Attending Dr: ? Ordering Physician: Javier Dubois ?? Date of Service: 06/22/24 ?? Procedure(s): CT head/brain wo IV con ?? Accession Number(s): [id number] ? cc: Carlo Santana MD; Javier Dubois ? Report Number: ?? [id number]: Total DLP = ??967.00 mGy-cm ? CLINICAL HISTORY: trauma ? CT head without contrast ? COMPARISON: None ? FINDINGS: ?? Motion degraded examination. ?? No acute intracranial hemorrhage, extra-axial fluid collection, mass ?? effect, or midline shift. ?? Ventricular system and basilar cisterns are patent. ?? Pedro-white matter differentiation is maintained. ?? No gross orbital abnormality. ?? No suspicious or acute bone lesion. ?? Mastoid air cells and paranasal sinuses are predominantly clear. ? IMPRESSION: ?? 1. No acute intracranial abnormality. ? This document has been electronically signed by: Luisito Goldman MD on ?? 06/22/2024 19:16:59 ? Dictated By: ?Luisito Goldman MD ? Signed By: ?<Electronically signed by Luisito Goldman MD in OV> ? 06/22/241917 ? DD/ 15 ? TD/TT: 06/22/241915 ? Certified Travel Counselor: ? Procedure Note Geovanny Villalobos - 06/22/[address] [address] [address] Scan Report Signed Patient: Peri Sandy MMR#: [id number] 338 : 1980Acct:[id number] Age/Sex: 43 / FADM Date: 06/22/24 Loc: HO.ED Attending Dr: Ordering Physician: Javier Dubois Date of Service: 06/22/24 Procedure(s): CT head/brain wo IV con Accession Number(s): [id number] cc: Carlo Santana MD; Javier Dubois Report Number: [id number]: Total DLP = 967.00 mGy-cm CLINICAL HISTORY: trauma CT head without contrast COMPARISON: None FINDINGS: Motion degraded examination. No acute intracranial hemorrhage, extra-axial fluid collection, mass effect, or midline shift. Ventricular system and basilar cisterns are patent. Pedro-white matter differentiation is maintained. No gross orbital abnormality. No suspicious or acute bone lesion. Mastoid air cells and paranasal sinuses are predominantly clear. IMPRESSION: 1. No acute intracranial abnormality. This document has been electronically signed by: Luisito Goldman MD on 06/22/2024 19:16:59 Dictated By: Luisito Goldman MD Signed By: <Electronically signed by Luisito Goldman MD in OV> 06/22/241917 DD/ 15 TD/TT: 06/22/241915 Certified Travel Counselor: [facility] External Provider IMG CT PROCEDURES Edited Result - Final documented in this encounter Visit Diagnoses Diagnosis Chronic left-sided low back pain with left-sided sciatica documented in this encounter Additional Health Concerns Assessment Noted Time PHQ-9 Depression Total Score: 15 01/25/ 024 11:50 AM EST documented as of this encounter Care Teams Soda Maker Relationship Specialty Start Date End Date Carlo Santana MD [address] [place] [address] PCP - General Internal Medicine 12/28/17 documented as of this encounter
--- OUTSIDE RECORDS SUMMARY | 2024-07-11 14:52 | XMS_ITS | Encounter Summary ---
Author Organization [employer] Address 75 [facility] 7 [place] [address] Care Team Providers Care Supervisor Air Conditioning Installer Name Role Phone Carlo Santana MD Primary Care Provider +1- [phone] Reason for Visit * Reason Onset Date Comments Referral 07/25/2023 Encounter Details Date Type Department Care Team (Late st Contact Info) Description 07/25/[address] [facility] MEDICINE [address] [place] [address] Carlo Santana MD [address] [facility] [address] [place], [place] [phone] Referral Social History Tobacco Use Types Packs/Day [...] in regards to moving pain management to [facility] in [place]. Pt stated she called the [place] office and it didn't go well. States [...] with switching locations. Please contact pt at [phone] * Telephone Encounter - Rand Savage RN - 07/28/2023 2:55 PM EDT Returned call to pt regarding message below. Pt stated she did not say another referral to Urology she said pain management. Pt is currently seen Pain management in [place] and has tried two different doctors. The first one told her her pain was in her head, and was very rude and dismissive. The socond doctor, she stated was no well prepared for her visit and not aware of what she has tried and not tried. I advised pt that if she decides to go with a different location, the wait times for [facility] appts can be lengthy. Pt advised if maybe she can try to resolve issues directly with this office so there won't be a lapse in care. Pt states she will call [place] office and speak to their creative services manager andsee if maybe she can try another provider. Pt advised to call their office and based on response they give her she can think about it and decide and speak with PCP next on appt. Pt agrees with plan. Will send to PCP as FYI and if pt does decide she will wants to switch she would like a location in [place]. * Telephone Encounter - Quan Mena - 07/25/2023 3:01 PM EDT Tc from pt calling in regards to urology referral, stating she's not satisfied with care and would like to change location. Pt is requesting to be referred to [facility] instead pt provided location [address] [facility]. If nay questions you can contact pt at [phone]. documented in this encounter Plan of Treatment Upcoming Encounters Date Type Department Care Team (Late st Contact Info) Description 07/12/2024 9:30 AM EDT Clinical Support [facility] CH[facility] MED & PEDS [address] [place] [address] Fariba Gandhi RN 505 [place] [address] documented as of this encounter Visit Diagnoses Not on filedocumented in this encounter Additional Health Concerns Assessment Noted Time PHQ-9 Depression Total Score: 3 06/04/19 23 3:42 PM EDT documented as of this encounter Care Teams Supervisor Air Conditioning Installer Relationship Specialty Start Date End Date Carlo Santana MD 505 [place] [address] PCP - General Internal Medicine 12/28/17 documented as of this encounter
--- OUTSIDE RECORDS SUMMARY | 2024-07-11 14:52 | XMS_ITS | Encounter Summary ---
Author Organization [employer] Address [address] [place] [address] 7 [place] [address] Care Team Providers Care It Network Administrator Name Role Phone Carlo Santana MD Primary Care Provider +1- [phone] Encounter Details Date Type Department Care Team ([facility] st Contact Info) Description 08/17/2023 Orders Only [facility] CHC MED & PEDS [address] [place], [place] [phone] Carlo Santana MD 505 [place], [place] [phone] Bipolar affective disorder, remission status unspecified (CMS/HCC) [...] 9:30 AM EDT Clinical Support [facility] MED & PEDS [address] [place] [address] Fariba Gandhi RN 505 [place] [address] documented as of this encounter Visit Diagnoses Diagnosis Bipolar affective disorder, remission status unspecified (CMS/[facility])- Primary documented in this encounter Additional Health Concerns Assessment Noted Time PHQ-9 Depression Total Score: 3 06/04/19 23 3:42 PM EDT documented as of this encounter Care Teams It Network Administrator Relationship Specialty Start Date End Date Carlo Santana MD [address] [place] [address] PCP - General Internal Medicine 12/28/17 documented as of this encounter
--- OUTSIDE RECORDS SUMMARY | 2024-07-11 14:52 | XMS_ITS | Encounter Summary ---
Author Organization [employer] Address [address] [place] [address] 7 [place] [address] Care Team Providers Care Tyre Builder Name Role Phone Carlo Santana MD Primary Care Provider +1- [phone] Encounter Details Date Type Department Care Team ([facility] st Contact Info) Description 01/06/2024 Orders Only [facility] CHC MED & PEDS [address] [place], [place] [phone] Carlo Santana MD [address] [place], [place] [phone] Diarrhea, unspecified type (Primary Dx); Chronic left-sided [...] 07/12/2024 9:30 AM EDT Clinical Support [facility] MED & PEDS [address] [place] [address] Fariba Gandhi RN 505 [place] [address] Scheduled Orders Name Type Priority Associated Diagnoses [...] Protein <0.10 < or = 0.50 mg/dL [facility] Blood Venous blood specimen / Unknown 01/06/2024 1:18 PM EDT 01/06/2024 2:16 PM EDT Carlo Santana MD LAB BLOOD ORDERABLES Final Result [facility] [address] [place] [address] [phone] documented in this encounter Visit Diagnoses Diagnosis Diarrhea, unspecified type- Primary Chronic left-sided low back pain with left-sided sciatica documented in this encounter Additional Health Concerns Assessment Noted Time PHQ-9 Depression Total Score: 3 06/04/19 23 3:42 PM EDT documented as of this encounter Care Teams Tyre Builder Relationship Specialty Start Date End Date Carlo Santana MD [address] [place] [address] PCP - General Internal Medicine 12/28/17 documented as of this encounter
--- OUTSIDE RECORDS SUMMARY | 2024-07-11 14:52 | XMS_ITS | Encounter Summary ---
Author Organization [employer] Address [address] [place] [address] 7 [place] [address] Care Team Providers Care Type Proof Reproducer Name Role Phone Carlo Santana MD Primary Care Provider +1- [phone] Reason for Visit * Reason Onset Date Comments Prior Authorization 09/02/2023 Encounter Details Date Type Department Care Team ([facility] Contact Info) Description 09/02/2023 Telephone [facility] MED & PEDS [address] [place] [address] Carlo Santana MD 505 [place] [address] Prior Authorization Social History Tobacco Use Types [...] [facility] [address] [place] [address] Fariba Gandhi, RN [address] [place] [address] documented as of this encounter Visit Diagnoses Diagnosis Bipolar affective disorder, remission status unspecified (CMS/[facility]) documented in this encounter Additional Health Concerns Assessment Noted Time PHQ-9 Depression Total Score: 3 06/04/19 23 3:42 PM EDT documented as of this encounter Care Teams Type Proof Reproducer Relationship Specialty Start Date End Date Carlo Santana MD [address] [place] [address] PCP - General Internal Medicine 12/28/17 documented as of this encounter
--- OUTSIDE RECORDS SUMMARY | 2024-07-11 14:52 | XMS_ITS | Encounter Summary ---
Author Organization [facility] Address [address] [place] [address] Care Team Providers Care Jacquard Loom Weaver Name Role Phone Chandni Boogie MD Primary Care Provider Unavailable Mary Lott MD Primary Care Provider Unavail able Maria Antonia Gerber MD Primary Care Provider Unavaila [facility], Pcp Primary Care Provider Unavailabl e Encounter Details Date Type Department Care Team Description 05/23/2014 Release of Information Medical Records [address] [place] [address] [facility] [place] [address] Abstract, Provider Social History Tobacco Use Types [...] on filedocumented in this encounter Care Teams Jacquard Loom Weaver Relationship Specialty Start Date End Date Chandni Boogie MD PCP - General Internal Medicine 06/09/1204/19 Mary Lott MD PCP - General Internal Medicine 04/20/16 07/15/16 Maria Antonia Gerber MD PCP - General Internal Medicine 07/16/16 01/22/18 [facility], [facility] PCP - General Internal Medicine 01/23/18 documented as of this encounter
--- OUTSIDE RECORDS SUMMARY | 2024-07-11 14:52 | XMS_ITS | Encounter Summary ---
Author Organization [employer] Address [address] [place] [address] 7 [place] [address] Care Team Providers Care Block Setter Gypsum Name Role Phone Carlo Santana MD Primary Care Provider +1- [phone] Reason for Visit * Reason Onset Date Comments Med Change Request 09/14/2023 Encounter Details Date Type Department Care Team ([facility] st Contact Info) Description 09/14/2023 Telephone [facility] MED & PEDS [address] [place] [address] Carlo Santana MD [address] [place] [address] Med Change Request Social History Tobacco Use [...] in the morning. Please contact pt at [phone] documented in this encounter Plan of Treatment Upcoming Encounters Date Type Department Care Team ([facility] st Contact Info) Description 07/12/2024 9:30 AM EDT Clinical Support [facility] CHC MED & PEDS [address] [place] [address] Fariba Gandhi, HUGO 505 [place] [address] documented as of this encounter Visit Diagnoses Not on filedocumented in this encounter Additional Health Concerns Assessment Noted Time PHQ-9 Depression Total Score: 3 06/04/19 23 3:42 PM EDT documented as of this encounter Care Teams Block Setter Gypsum Relationship Specialty Start Date End Date Carlo Santana MD [address] [place] [address] PCP - General Internal Medicine 12/28/17 documented as of this encounter
--- OUTSIDE RECORDS SUMMARY | 2024-07-11 14:52 | XMS_ITS | Encounter Summary ---
Author Organization [employer] Address [address] [facility] 7 [place] [address] Care Team Providers Care Building Construction Foreman Name Role Phone Carlo Santana MD Primary Care Provider +1- [phone] Reason for Visit * Reason Onset Date Comments Nurse Triage 03/21/2024 Encounter Details Date Type Department Care Team (Late st Contact Info) Description 03/21/2024 Telephone [facility] MEDICINE [address] [place] [address] Carlo Santana MD [address] [place], [place] [phone] Nurse Triage Social History Tobacco Use Types [...] EST Triage call Pt reports seen by technical publications manager and Pt believes they may have [...] Reason: Joint pain Please contact pt at [phone]. documented in this encounter Plan of Treatment Upcoming Encounters Date Type Department Care Team (Late st Contact Info) Description 07/12/2024 9:30 AM EDT Clinical Support [facility] MED & PEDS [address] [place] [address] Fariba Gandhi, HUGO 505 [place] [address] documented as of this encounter Visit Diagnoses Diagnosis Acute pain of both shoulders documented in this encounter Additional Health Concerns Assessment Noted Time PHQ-9 Depression Total Score: 15 024 11:50 AM EST documented as of this encounter Care Teams Building Construction Foreman Relationship Specialty Start Date End Date Carlo Santana MD 505 [place] [address] PCP - General Internal Medicine 12/28/17 documented as of this encounter
--- OUTSIDE RECORDS SUMMARY | 2024-07-11 14:52 | XMS_ITS | Encounter Summary ---
Author Organization [employer] Address [address] [place] [address] 7 [place] [address] Care Team Providers Care Buffing Turner And Counter Name Role Phone Carlo Santana MD Primary Care Provider +1- [phone] Reason for Visit * Reason Onset Date Comments PA 01/31/2024 Encounter Details Date Type Department Care Team ([facility] st Contact Info) Description 01/31/2024 Telephone [facility] CHC MED & PEDS [address] [place] [address] Carlo Santana MD 505 [place] [address] PA Social History Tobacco Use Types Packs/Day [...] Upcoming Encounters Date Type Department Care Team ([facility] st Contact Info) Description 07/12/2024 9:30 AM EDT Clinical Support [facility] CHC MED & PEDS [address] [place] [address] Fariba Gandhi RN 505 [place] [address] documented as of this encounter Visit Diagnoses Not on filedocumented in this encounter Additional Health Concerns Assessment Noted Time PHQ-9 Depression Total Score: 15 024 11:50 AM EST documented as of this encounter Care Teams Buffing Turner And Counter Relationship Specialty Start Date End Date Carlo Santana MD 505 [place] [address] PCP - General Internal Medicine 12/28/17 documented as of this encounter
--- OUTSIDE RECORDS SUMMARY | 2024-07-11 14:52 | XMS_ITS ---
Author Organization [employer] Address [address] [place] [address] Care Team Providers Care Photolithographic Stripper Name Role Phone Carlo Santana MD Primary Care Provider +1- [phone] CHW Complex Status:Outreach In Progress (Enrolling) Start date:06/25/2024 Enrollment reason:ADT Feed Overview ADT- ED [facility] 06/22/24. Please outreach for enrollment. Case Team Name Relationship Phone Emely Mena (Responsible Staff) Continued Care and Services Coordination
--- OUTSIDE RECORDS SUMMARY | 2024-07-11 14:52 | XMS_ITS ---
Author Organization [employer] Address [address] [place] [address] Care Team Providers Care Wood Tank Erector Name Role Phone Carlo Santana MD Primary Care Provider [phone] CM Complex Status:Outreach In Progress (Enrolling) Start date:06/25/2024 Enrollment reason:ADT Feed Overview ADT- ED [facility] 06/22/24 Case Team Name Relationship Phone Angel Gavin RN Registered Nurse(Responsible S taff) Continued Care and Services Coordination
--- OUTSIDE RECORDS SUMMARY | 2024-07-11 14:52 | XMS_ITS | Encounter Summary ---
Author Organization [employer] Address [address] [facility] 7 [place] [address] Care Team Providers Care Cap Jewel Plate Assembler Name Role Phone Carlo Santana MD Primary Care Provider +1- [phone] Reason for Visit * Reason Onset Date Comments Prior Authorization 12/29/2023 Encounter Details Date Type Department Care Team ([facility] st Contact Info) Description 12/29/2023 Telephone [facility] MEDICINE [address] [place] [address] Carlo Santana MD 505 [place], [place] [phone] Prior Authorization Social History Tobacco Use Types [...] from pt stating she was informed by [facility] pharmacy that oxyCODONE-acetaminophen (Percocet) 7.5-325MG tablet needs a PA. If any questions for the pt you can contact them at [phone]. documented in this encounter Plan of Treatment Upcoming Encounters Date Type Department Care Team (Late st Contact Info) Description 07/12/2024 9:30 AM EDT Clinical Support [facility] MED & PEDS 505 [place] [address] Fariba Gandhi, HUGO [address] [place] [address] documented as of this encounter Visit Diagnoses Not on filedocumented in this encounter Additional Health Concerns Assessment Noted Time PHQ-9 Depression Total Score: 3 06/04/19 23 3:42 PM EDT documented as of this encounter Care Teams Cap Jewel Plate Assembler Relationship Specialty Start Date End Date Carlo Santana MD [address] [place] [address] PCP - General Internal Medicine 12/28/17 documented as of this encounter
--- OUTSIDE RECORDS SUMMARY | 2024-07-11 14:52 | XMS_ITS | Encounter Summary ---
Author Organization [employer] Address [address] [place] [address] Care Team Providers Care Commercial Lending Assistant Name Role Phone Carlo Santana MD Primary Care Provider +1- [phone] Reason for Referral * Consultation (Routine) - Closed Specialty Diagnoses / Procedures Referred By Contfina t Referred To Contact Pain Medicine Diagnoses Chronic left-sided low back pain with left-sided sciatica Lumbar radiculopathy Chronic right-sided low back pain with right-sided sciatica Carlo Santana MD [address] [place] [address] Phone: tel: fax: [facility] [address] [place] [address] Phone: tel: fax: Referral ID Status Reason Start Date Expiration Date V isits Requested Visits Authorized [id number] Closed Specialty Services Required 07/29/2023 07/28/2024 1 1 Encounter Details Date Type Department Care Team ([facility] st Contact Info) Description 07/29/2023 Orders Only [facility] CHC MED & PEDS [address] [place] [address] Carlo Santana MD [address] [place] [address] Chronic left-sided low back pain with left-sided [...] Description 07/12/2024 9:30 AM EDT Clinical Support [facility] CHC MED & PEDS [address] [place] [address] Fariba Gandhi, RN 505 [place] [address] Scheduled Referrals Name Type Priority Associated Diagnoses [...] of this encounter Care Teams Commercial Lending Assistant Relationship Specialty Start Date End Date Carlo Santana MD [address] [place] [address] PCP - General Internal Medicine 12/28/17 documented as of this encounter
--- OUTSIDE RECORDS SUMMARY | 2024-07-11 14:52 | XMS_ITS | Encounter Summary ---
Author Organization [employer] Address [address] [place] [address] Care Team Providers Care Fleet Service Manager Name Role Phone Carlo Santana MD Primary Care Provider +1- [phone] Reason for Referral * Imaging (Routine) - Closed Specialty Diagnoses / Procedures Referred By Contac t Referred To Contact Radiology Diagnoses Transaminitis Procedures US Abdomen Complete Carlo Santana MD 505 [place] [address] Phone: tel: fax: [address] Phone: tel: fax: Referral ID Status Reason Start Date Expiration Date Visits Re quested Visits Authorized [id number] Closed 03/23/2024 03/23/2025 1 1 Reason for Visit * Reason Comments Med Refill Encounter Details Date Type Department Care Team (Late st Contact Info) Description 03/21/2024 Refill [facility] CHC MED & PEDS [address] [place] [address] Carlo Santana MD 505 [place] [address] Chronic left-sided low back pain with left-sided [...] 9:30 AM EDT Clinical Support [facility] CHC MED & PEDS [address] [place] [address] Fariba Gandhi RN 505 [place] [address] Scheduled Orders Name Type Priority Associated Diagnoses [...] documented as of this encounter Care Teams Fleet Service Manager Relationship Specialty Start Date End Date Carlo Santana MD [address] [place] [address] PCP - General Internal Medicine 12/28/17 documented as of this encounter
--- OUTSIDE RECORDS SUMMARY | 2024-07-11 14:52 | XMS_ITS | Encounter Summary ---
Author Organization [employer] Address [address] [facility] 7 [place] [address] Care Team Providers Care Cavity Pump Operator Name Role Phone Carlo Santana MD Primary Care Provider +1- [phone] Reason for Visit * Reason Onset Date Comments Medication Question 12/28/2023 Encounter Details Date Type Department Care Team ([facility] st Contact Info) Description 12/28/2023 Telephone [facility] MEDICINE [address] [place] [address] Carlo Santana MD [address] [facility] [address] [place], [place] [phone] Medication Question Social History Tobacco Use Types [...] any questions you can contact pt at [phone]. documented in this encounter Plan of Treatment Upcoming Encounters Date Type Department Care Team ([facility] st Contact Info) Description 07/12/2024 9:30 AM EDT Clinical Support [facility] MED & PEDS [address] [place] [address] Fariba Gandhi, HUGO [address] [place] [address] documented as of this encounter Visit Diagnoses Not on filedocumented in this encounter Additional Health Concerns Assessment Noted Time PHQ-9 Depression Total Score: 3 06/04/19 23 3:42 PM EDT documented as of this encounter Care Teams Cavity Pump Operator Relationship Specialty Start Date End Date Carlo Santana MD [address] [place] [address] PCP - General Internal Medicine 12/28/17 documented as of this encounter
--- OUTSIDE RECORDS SUMMARY | 2024-07-11 14:53 | XMS_ITS | Encounter Summary ---
Author Organization [employer] Address [address] [place] [address] 7 [place] [address] Care Team Providers Care Therapeutic Recreation Leader Name Role Phone Carlo Santana MD Primary Care Provider +1- [phone] Encounter Details Date Type Department Care Team (Latest Contact Info) Description 10/14/2021 Abstract [facility] CONVERSIONS Dental, Provider, DDS Social History [...] Description 07/12/2024 9:30 AM EDT Clinical Support [facility] CHC MED & PEDS [address] [place] [address] Fariba Gandhi, HUGO 505 [place] [address] documented as of this encounter Visit Diagnoses Not on filedocumented in this encounter Care Teams Therapeutic Recreation Leader Relationship Specialty Start Date End Date Carlo Santana MD 505 [place] [address] PCP - General Internal Medicine 12/28/17 documented as of this encounter
--- OUTSIDE RECORDS SUMMARY | 2024-07-11 14:53 | XMS_ITS | Encounter Summary ---
Author Organization [employer] Address [address] [place] [address] 7 [place] [address] Care Team Providers Care Kitchen Bath Designer Name Role Phone Carlo Santana MD Primary Care Provider +1- [phone] Encounter Details Date Type Department Care Team ([facility] st Contact Info) Description 09/16/[address] [facility] CHC MED & PEDS [address] [place], [place] [phone] Carlo Santana MD 505 [place], [place] [phone] Bipolar affective disorder, remission status unspecified (CMS/[facility]) Social History Tobacco Use Types Packs/Day Years [...] ([facility] st Contact Info) Description 07/12/2024 9:30 AM EDT Clinical Support [facility] MED & PEDS 505 [place] [address] Fariba Gandhi, HUGO 505 [place] [address] documented as of this encounter Visit Diagnoses Diagnosis Bipolar affective disorder, remission status unspecified (CMS/[facility]) documented in this encounter Additional Health Concerns Assessment Noted Time PHQ-9 Depression Total Score: 3 06/04/19 23 3:42 PM EDT documented as of this encounter Care Teams Kitchen Bath Designer Relationship Specialty Start Date End Date Carlo Santana MD 505 [place] [address] PCP - General Internal Medicine 12/28/17 documented as of this encounter
--- OUTSIDE RECORDS SUMMARY | 2024-07-11 14:53 | XMS_ITS | Encounter Summary ---
Author Organization [employer] Address [address] [facility] 7 [place] [address] Care Team Providers Care Clipper Counters Name Role Phone Carlo Santana MD Primary Care Provider +1- [phone] Reason for Visit * Reason Onset Date Comments Med Refill 06/21/2024 Encounter Details Date Type Department Care Team (Late st Contact Info) Description 06/21/2024 Telephone [facility] MEDICINE [address] [place] [address] Carlo Santana MD 505 [place], [place] [phone] Med Refill Social History Tobacco Use Types [...] 5 % patch To be sent to: [facility]/pharmacy #[id number] - [place] - [address] [facility] documented in this encounter Plan of Treatment Upcoming Encounters Date Type Department Care Team ([facility] Contact Info) Description 07/12/2024 9:30 AM EDT Clinical Support [facility] CHC MED & PEDS 505 [place] [address] Fariba Gandhi RN 505 [place] [address] documented as of this encounter Visit Diagnoses Not on filedocumented in this encounter Additional Health Concerns Assessment Noted Time PHQ-9 Depression Total Score: 15 024 11:50 AM EST documented as of this encounter Care Teams Clipper Counters Relationship Specialty Start Date End Date Carlo Santana MD 505 [facility] [place] [address] PCP - General Internal Medicine 12/28/17 documented as of this encounter
--- OUTSIDE RECORDS SUMMARY | 2024-07-11 14:53 | XMS_ITS | Encounter Summary ---
Author Organization [employer] Address [address] [facility] 7 [place] [address] Care Team Providers Care Electrical Appliance Servicer Name Role Phone Carlo Santana MD Primary Care Provider +1- [phone] Reason for Visit * Reason Onset Date Comments Call Back Request 02/28/2024 Encounter Details Date Type Department Care Team ([facility] st Contact Info) Description 02/28/2024 Telephone [facility] MEDICINE [address] [place] [address] Carlo Santana MD [address] [place] [address] Call Back Request Social History Tobacco Use [...] [facility] [address] [place] [address] Fariba Gandhi RN 505 [place] [address] documented as of this encounter Visit Diagnoses Not on filedocumented in this encounter Additional Health Concerns Assessment Noted Time PHQ-9 Depression Total Score: 15 024 11:50 AM EST documented as of this encounter Care Teams Electrical Appliance Servicer Relationship Specialty Start Date End Date Carlo Santana MD [address] [place] [address] PCP - General Internal Medicine 12/28/17 documented as of this encounter
--- OUTSIDE RECORDS SUMMARY | 2024-07-11 14:53 | XMS_ITS | Encounter Summary ---
Author Organization [employer] Address [address] [place] [address] 7 [place] [address] Care Team Providers Care Traffic Operator Name Role Phone Carlo Santana MD Primary Care Provider Encounter Details Date Type Department Care Team (Late st Contact Info) Description 11/03/2022 Orders Only [facility] CHC MED & PEDS [address] [place] [address] Carlo Santana MD [address] [place] [address] Obesity (BMI 30-39.9) (Primary Dx); Chronic left-sided [...] 9:30 AM EDT Clinical Support [facility] MED & PEDS [address] [place] [address] Fariba Gandhi, RN 505 [place] [address] documented as of this encounter Visit Diagnoses Diagnosis Obesity (BMI 30-39.9)- Primary Chronic left-sided low back pain with left-sided sciatica documented in this encounter Additional Health Concerns Assessment Noted Time PHQ-9 Depression Total Score: 3 06/04/19 23 3:42 PM EDT documented as of this encounter Care Teams Traffic Operator Relationship Specialty Start Date End Date Carlo Santana MD 505 [place] [address] PCP - General Internal Medicine 12/28/17 documented as of this encounter
--- OUTSIDE RECORDS SUMMARY | 2024-07-11 14:53 | XMS_ITS | Encounter Summary ---
Author Organization [employer] Address [address] [facility] 7 [place] [address] Care Team Providers Care Senior Graduate Advisor Name Role Phone Carlo Santana MD Primary Care Provider +1- [phone] Reason for Visit * Reason Onset Date Comments Med Refill 01/14/2023 Encounter Details Date Type Department Care Team ([facility] st Contact Info) Description 01/14/2023 Telephone [facility] MEDICINE [address] [place] [address] Carlo Santana MD [address] [facility] [address] [place], [place] [phone] Med Refill Social History Tobacco Use Types [...] Description 07/12/2024 9:30 AM EDT Clinical Support [facility] CHC MED & PEDS [address] [place] [address] Fariba Gandhi, HUGO 505 [place] [address] documented as of this encounter Visit Diagnoses Not on filedocumented in this encounter Additional Health Concerns Assessment Noted Time PHQ-9 Depression Total Score: 3 06/04/19 23 3:42 PM EDT documented as of this encounter Care Teams Senior Graduate Advisor Relationship Specialty Start Date End Date Carlo Santana MD 505 [place] [address] PCP - General Internal Medicine 12/28/17 documented as of this encounter
--- OUTSIDE RECORDS SUMMARY | 2024-07-11 14:53 | XMS_ITS | Encounter Summary ---
Author Organization [employer] Address [address] [facility] 7 [place] [address] Care Team Providers Care Director Of Research Center Name Role Phone Carlo Santana MD Primary Care Provider +1- [phone] Reason for Visit * Reason Onset Date Comments Appointment Request 09/20/2023 Encounter Details Date Type Department Care Team ([facility] st Contact Info) Description 09/20/2023 Telephone [facility] MEDICINE [address] [place] [address] Carlo Santana MD [address] [facility] [address] [place], [place] [phone] Appointment Request Social History Tobacco Use Types [...] [facility] MED & PEDS 505 [place] [address] Fariba Gandhi RN 505 [place] [address] documented as of this encounter Visit Diagnoses Not on filedocumented in this encounter Additional Health Concerns Assessment Noted Time PHQ-9 Depression Total Score: 3 06/04/19 23 3:42 PM EDT documented as of this encounter Care Teams Director Of Research Center Relationship Specialty Start Date End Date Carlo Santana MD 505 [place] [address] PCP - General Internal Medicine 12/28/17 documented as of this encounter
--- OUTSIDE RECORDS SUMMARY | 2024-07-11 14:53 | XMS_ITS | Clinical Summary ---
Author Organization [facility] Address [address] [facility] [place] [address] Care Team Providers Care Medical Numerical Control Operator Name Role Phone Community, Pcp Primary Care Provider Unavailabl e Allergies No known active allergies Medications Medication Sig Dispensed Refills Start Date End Date Status omeprazole (PRILOSEC) 20 MG capsule Take 1 Cap by mouth daily. 30 Cap 5 05/21/2013 Active lamotrigine (LAMICTAL) 200 MG tablet 200 mg 2 times daily. 0 11/10/2015 Active ziprasidone (GEODON) 80 MG capsule 80 mg 2 times daily. 0 11/10/2015 Active spironolactone (ALDACTONE) 100 MG tablet Take 1 Tab by mouth 2 times daily. 60 Tab 3 11/27/2015 Active nabumetone (RELAFEN) 750 MG tablet Take 1 Tab by mouth 2 times daily. 30 Tab 0 01/08/2016 Active minocycline (MINOCIN,DYNACIN) 100 MG capsule TAKE 1 CAPSULE BY MOUTH 2 TIMES DAILY 60 Cap 5 01/12/2016 Active fluticasone 50 MCG/ACT nasal spray USE 1 SPRAY IN EACH NOSTRIL 1 TO 2 TIMES DAILY 1 Bottle 3 03/10/2016 Active lithium 300 MG capsule 0 02/13/2016 Active Active Problems Problem Noted Date Heartburn 11/20/2015 Major depression 05/21/2013 Acne 05/21/2013 Bipolar disorder S/P gastric bypass PCOS (polycystic ovarian syndrome) Immunizations Name Administration Dates Next Due Influenza (> 6 Months) 05/21/2013 PPD Negative Response(Internal) 11/26/2015 PPD-RBMG 11/24/2015 Tdap 05/21/2013 Family History Medical History Relation Name Comments Diabetes Maternal Grandmother Hypertension Maternal Grandmother CA Ovarian Mother Diabetes Mother Hypertension Mother Cancer of the Breast Mother's side 2 GGM, 1 relative Leukemia Son 2 ALL Relation Name Status Comments Maternal Grandmother Mother Mother's side 1 Mother's side 2 Son 1 Son 2 Social History Tobacco Use Types Packs/Day Years Used Date Smoking Tobacco: Never Smokeless Tobacco: Never Alcohol Use Standard Drinks/Week Comments Yes 0 (1 standard drink = 0.6 oz pur e alcohol) Sex Assigned at Date Recorded Not on file Last Filed Vital Signs Vital Sign Reading Time Taken Comments Blood Pressure 116/76 04/23/2016 9:44 AM EST Pulse 64 04/23/2016 9:44 AM EST Temperature 37.2 ??C (98.9 ??F) 04/23/2016 9:44 AM ES T Respiratory Rate 16 04/23/2016 9:44 AM EST Oxygen Saturation - - Inhaled Oxygen Concentration - - Weight 84.2 kg (185 lb 9.6 oz) 04/23/2016 9:44 A M EST Height 160 cm (5' 3 ) 04/23/2016 9:44 AM EST Body Mass Index 32.88 04/23/2016 9:44 AM EST Plan of Treatment Health Maintenance Due Date Last Done Comments Covid-19 Vaccine (#1) 02/07/1983 TOBACCO CHECK/ADVISE 2000 CERVICAL CANCER SCREENING 04/12/2016 04/12/2013 CHOLESTEROL SCREENING 06/06/2018 06/06/2013 BASELINE HEALTH EXAM 40-64 08/07/202211/19, 06/06/2013, 05/21/2013 MAMMOGRAM 2022 DTAP/TDAP/TD (2 - Td or Tdap) 05/22/2023 05/21/2013 BMI CHECK/ADVISE 03/14/2024 04/23/2016, , 11/20/2015, Additional history exists INFLUENZA (Season Ended) 2024 017 (Refused), 05/21/2013 PNEUMOCOCCAL VACCINE FOR HIG H RISK PATIENTS (#1) 08/08/2047 Care Teams Medical Numerical Control Operator Relationship Specialty Start Date End Date Community, Pcp PCP - General Internal Medicine 01/23/18
--- OUTSIDE RECORDS SUMMARY | 2024-07-11 14:53 | XMS_ITS | Encounter Summary ---
Author Organization [employer] Address [address] [facility] 7 [place] [address] Care Team Providers Care Clinical Information Systems Director Name Role Phone Carlo Santana MD Primary Care Provider +1- [phone] Reason for Visit * Reason Onset Date Comments Call Back Request 07/20/2023 Encounter Details Date Type Department Care Team ([facility] st Contact Info) Description 07/20/2023 Telephone [facility] MEDICINE [address] [place] [address] Carlo Santana MD [address] [facility] [address] [place], [place] [phone] Call Back Request Social History Tobacco Use [...] 07/12/2024 9:30 AM EDT Clinical Support [facility] CHC MED & PEDS [address] [place] [address] Fariba Gandhi, HUGO 505 [place] [address] documented as of this encounter Visit Diagnoses Not on filedocumented in this encounter Additional Health Concerns Assessment Noted Time PHQ-9 Depression Total Score: 3 06/04/19 23 3:42 PM EDT documented as of this encounter Care Teams Clinical Information Systems Director Relationship Specialty Start Date End Date Carlo Santana MD 505 [place] [address] PCP - General Internal Medicine 12/28/17 documented as of this encounter
--- OUTSIDE RECORDS SUMMARY | 2024-07-11 14:53 | XMS_ITS | Encounter Summary ---
Author Organization [employer] Address [address] [facility] 7 [place] [address] Care Team Providers Care Prepress Specialist Name Role Phone Carlo Santana MD Primary Care Provider +1- [phone] Reason for Visit * Reason Onset Date Comments Med Refill 02/20/2024 Encounter Details Date Type Department Care Team ([facility] st Contact Info) Description 02/20/2024 Telephone [facility] MEDICINE [address] [place] [address] Carlo Santana MD 505 [place], [place] [phone] Med Refill Social History Tobacco Use Types [...] PM EST Disposable underpads order sent to [facility] and signed rx sent to scan pending decision. * Telephone Encounter - Grabiel Taylor - 02/20/2024 9:08 AM EST Tc from pt stating that the doctor stated that he would prescribe disposable bed pads. Pt would like for them to go to [facility]. If any question you can contact pt at [phone] documented in this encounter Plan of Treatment Upcoming Encounters Date Type Department Care Team ([facility] st Contact Info) Description 07/12/2024 9:30 AM EDT Clinical Support [facility] MED & PEDS [address] [place] [address] Fariba Gandhi, RN [address] [place] [address] documented as of this encounter Visit Diagnoses Not on filedocumented in this encounter Additional Health Concerns Assessment Noted Time PHQ-9 Depression Total Score: 15 024 11:50 AM EST documented as of this encounter Care Teams Prepress Specialist Relationship Specialty Start Date End Date Carlo Santana MD [address] [place] [address] PCP - General Internal Medicine 12/28/17 documented as of this encounter
--- OUTSIDE RECORDS SUMMARY | 2024-07-11 14:53 | XMS_ITS | Encounter Summary ---
Author Organization [employer] Address [address] [place] [address] 7 [place] [address] Care Team Providers Care Floor Person Name Role Phone Carlo Santana MD Primary Care Provider +1- [phone] Reason for Visit * Reason Comments Med Change Request Encounter Details Date Type Department Care Team ([facility] Contact Info) Description 04/08/2023 Refill [facility] CHC MED & PEDS [address] [place] [address] Carlo Santana MD [address] [place] [address] Obesity (BMI 30-39.9) Social History Tobacco Use [...] [facility] [address] [place] [address] Fariba Gandhi RN [address] [place] [address] documented as of this encounter Visit Diagnoses Diagnosis Obesity (BMI 30-39.9) documented in this encounter Additional Health Concerns Assessment Noted Time PHQ-9 Depression Total Score: 3 06/04/19 23 3:42 PM EDT documented as of this encounter Care Teams Floor Person Relationship Specialty Start Date End Date Carlo Santana MD [address] [place] [address] PCP - General Internal Medicine 12/28/17 documented as of this encounter
--- OUTSIDE RECORDS SUMMARY | 2024-07-11 14:53 | XMS_ITS | Encounter Summary ---
Author Organization [employer] Address [address] [place] [address] 7 [place] [address] Care Team Providers Care Summer Child Caregiver Name Role Phone Carlo Santana MD Primary Care Provider +1- [phone] Encounter Details Date Type Department Care Team ([facility] st Contact Info) Description 01/19/2023 Orders Only [facility] CHC MED & PEDS [address] [place], [place] [phone] Carlo Santana MD [address] [place], [place] [phone] Neck pain (Primary Dx); Chronic left-sided low [...] Upcoming Encounters Date Type Department Care Team ([facility] st Contact Info) Description 07/12/2024 9:30 AM EDT Clinical Support [facility] MED & PEDS [address] [place] [address] Fariba Gandhi RN 505 [place] [address] documented as of this encounter Visit Diagnoses Diagnosis Neck pain- Primary Cervicalgia Chronic left-sided low back pain with left-sided sciatica documented in this encounter Additional Health Concerns Assessment Noted Time PHQ-9 Depression Total Score: 3 06/04/19 23 3:42 PM EDT documented as of this encounter Care Teams Summer Child Caregiver Relationship Specialty Start Date End Date Carlo Santana MD [address] [place] [address] PCP - General Internal Medicine 12/28/17 documented as of this encounter
--- OUTSIDE RECORDS SUMMARY | 2024-07-11 14:53 | XMS_ITS | Encounter Summary ---
Author Organization [employer] [facility] Address [address] [place] [address] 7 [place] [address] Care Team Providers Care Sign Writer Letterer Or Painter Name Role Phone Carlo Santana MD Primary Care Provider +1- [phone] Encounter Details Date Type Department Care Team (Latest Contact Info) Description 04/18/2018 Abstract [facility] CONVERSIONS Dental, Provider, DDS Social History [...] Description 07/12/2024 9:30 AM EDT Clinical Support [facility] CHC MED & PEDS 505 [place] [address] Fariba Gandhi, HUGO 505 [place] [address] documented as of this encounter Visit Diagnoses Not on filedocumented in this encounter Care Teams Sign Writer Letterer Or Painter Relationship Specialty Start Date End Date Carlo Santana MD 505 [place] [address] PCP - General Internal Medicine 12/28/17 documented as of this encounter
--- OUTSIDE RECORDS SUMMARY | 2024-07-11 14:53 | XMS_ITS | Encounter Summary ---
Author Organization [employer] Address [address] [place] [address] 7 [place] [address] Care Team Providers Care Marketing Database Coordinator Name Role Phone Carlo Santana MD Primary Care Provider +1- [phone] Encounter Details Date Type Department Care Team ([facility] st Contact Info) Description 02/08/2024 Orders Only [facility] CHC MED & PEDS [address] [place], [place] [phone] Carlo Santana MD [address] [place], [place] [phone] VALENTINA (generalized anxiety disorder) (Primary Dx) Social [...] [facility] MED & PEDS [address] [place] [address] Fariba Gandhi, HUGO 505 [place] [address] documented as of this encounter Visit Diagnoses Diagnosis VALENTINA (generalized anxiety disorder)- Primary Generalized anxiety disorder documented in this encounter Additional Health Concerns Assessment Noted Time PHQ-9 Depression Total Score: 15 024 11:50 AM EST documented as of this encounter Care Teams Marketing Database Coordinator Relationship Specialty Start Date End Date Carlo Santana MD [address] [place] [address] PCP - General Internal Medicine 12/28/17 documented as of this encounter
--- OUTSIDE RECORDS SUMMARY | 2024-07-11 14:53 | XMS_ITS | Encounter Summary ---
Author Organization [employer] Address [address] [facility] 7 [place] [address] Care Team Providers Care Title I Teacher Name Role Phone Carlo Santana MD Primary Care Provider +1- [phone] Reason for Visit * Reason Comments Med Refill Encounter Details Date Type Department Care Team ([facility] st Contact Info) Description 01/16/2023 Refill [facility] MEDICINE [address] [place] [address] Carlo Santana MD [address] [place], [place] [phone] Muscle spasm Social History Tobacco Use Types [...] Description 07/12/2024 9:30 AM EDT Clinical Support [facility] MED & PEDS [address] [place] [address] Fariba Gandhi, HUGO [address] [place] [address] documented as of this encounter Visit Diagnoses Diagnosis Muscle spasm Spasm of muscle documented in this encounter Additional Health Concerns Assessment Noted Time PHQ-9 Depression Total Score: 3 06/04/19 23 3:42 PM EDT documented as of this encounter Care Teams Title I Teacher Relationship Specialty Start Date End Date Carlo Santana MD [address] [place] [address] PCP - General Internal Medicine 12/28/17 documented as of this encounter
--- OUTSIDE RECORDS SUMMARY | 2024-07-11 14:53 | XMS_ITS | Encounter Summary ---
Author Organization [employer] Address [address] [facility] 7 [place] [address] Care Team Providers Care Spanish Instructor Name Role Phone Carlo Santana MD Primary Care Provider +1- [phone] Reason for Visit * Reason Onset Date Comments Med Refill 09/17/2023 Encounter Details Date Type Department Care Team (Late st Contact Info) Description 09/17/2023 Refill [facility] MEDICINE [address] [place] [address] Carlo Santana MD 505 [place], [place] [phone] Chronic left-sided low back pain with left-sided [...] [facility] [address] [place] [address] Fariba Gandhi, HUGO [address] [place] [address] documented as of this encounter Visit Diagnoses Diagnosis Chronic left-sided low back pain with left-sided sciatica documented in this encounter Additional Health Concerns Assessment Noted Time PHQ-9 Depression Total Score: 3 06/04/19 23 3:42 PM EDT documented as of this encounter Care Teams Spanish Instructor Relationship Specialty Start Date End Date Carlo Santana MD [address] [place] [address] PCP - General Internal Medicine 12/28/17 documented as of this encounter
--- OUTSIDE RECORDS SUMMARY | 2024-07-11 14:53 | XMS_ITS | Encounter Summary ---
Author Organization [employer] [facility] Address [address] [place] [address] 7 [place] [address] Care Team Providers Care Radio Mechanic Apprentice Name Role Phone Carlo Santana MD Primary Care Provider +1- [phone] Encounter Details Date Type Department Care Team (Latest Contact Info) Description 01/18/2019 Abstract [facility] CONVERSIONS Dental, Provider, DDS Social History [...] 9:30 AM EDT Clinical Support [facility] CHC MED & PEDS [address] [place] [address] Fariba Gandhi, HUGO [address] [place] [address] documented as of this encounter Visit Diagnoses Not on filedocumented in this encounter Care Teams Radio Mechanic Apprentice Relationship Specialty Start Date End Date Carlo Santana MD [address] [place] [address] PCP - General Internal Medicine 12/28/17 documented as of this encounter
--- OUTSIDE RECORDS SUMMARY | 2024-07-11 14:53 | XMS_ITS | Clinical Summary ---
Author Organization [employer] Address [address] [place] [address] [address] [place] [address] Care Team Providers Care Information Security Engineer Name Role Phone Carlo Santana MD Primary Care Provider Allergies Active Allergy Reactions Criticality Noted Date Comments Cyclobenzaprine 07/27/2022 Other reaction(s): ? reaction Medications * This document contains information received from the source organization and may not represent a complete record from that organization. naloxone (Narcan) 4 mg/0.1 mL nasal spray Administer 0.1 mL into affected nostril(s). Hooper 0.1 milliliter by intranasal route in 1 [...] DAILY 5688 mL 11 03/16/19 25 Active hydrOXYzine pamoate (Vistaril) 50 MG [...] DAILY. 60 capsule 2 04/24/19 25 Active acetaminophen (Tylenol) 325 MG tabletIndicati ons:Chronic left-sided low back pain with left-sided sciatica TAKE TWO TABLETS EVERY 6 HOURS NEEDED FOR MILD PAIN 84 tablet 04/24/19 25 Active lidocaine (Xylocaine) 5 % ointmentIndica tions:Chronic left shoulder pain,Rib pain,Chronic left-sided low back pain with left-sided sciatica,Neck pain APPLY 5 GRAMS TO AFFECTED AREA 4 TIMES A DAY NEEDED FOR MILD PAIN 248.08 g 11 05/25/19 25 Active methocarbamol (Robaxin) 500 MG tabletIndicati [...] EVERY DAY 90 capsule 06/08/19 25 Active oxyCODONE-acet aminophen (Percocet) 7.5-325 MG tabletIndicati ons:Chronic left-sided low back pain with left-sided sciatica Take 1 tablet by mouth every 6 (six) hours if needed for severe pain. 112 tablet 06/15/19 25 Active oxyCODONE (Roxicodone) 10 MG immediate release tabletIndicati ons:Chronic left-sided low back pain with left-sided sciatica Take 1 tablet (10 mg) by mouth every 8 (eight) hours if needed for severe pain for up to 28 days. 84 tablet 06/26/19 25 025 Active amitriptyline (Elavil) 10 MG tabletIndicati ons:Diarrhea, unspecified type TAKE 1 TABLET BY MOUTH EVERYDAY AT BEDTIME 30 tablet 07/04/19 25 Active DULoxetine (Cymbalta) [address] capsule TAKE 1 CAPSULE BY MOUTH TWICE A DAY. DO NOT CRUSH OR CHEW. 60 capsule 2 07/04/19 25 Active loperamide (Imodium) 2 MG capsuleIndicat ions:Diarrhea, unspecified type TAKE 1 CAPSULE (2 MG) BY MOUTH IF NEEDED IN THE MORNING, AT NOON, IN THE EVENING, AND AT BEDTIME FOR DIARRHEA. 30 capsule 2 07/04/19 25 Active celecoxib (CeleBREX) 200 MG capsuleIndicat ions:Chronic left shoulder pain,Muscle spasm TAKE 1 CAPSULE BY MOUTH IN THE MORNING AND AT BEDTIME NEEDED FOR MODERATE PAIN 60 capsule 07/04/19 25 Active ondansetron (Zofran) 4 MG tablet TAKE 2 TABLETS BY MOUTH EVERY 8 HOURS NEEDED FOR NAUSEA AND VOMITING 30 tablet 3 07/04/19 25 Active lidocaine (Lidoderm) 5 % patchIndicatio ns:Chronic left-sided low back pain with left-sided sciatica APPLY 1 PATCH TOPICALLY EVERY DAY REMOVE AND DISCARD PATCH WITHIN 12 HOURS OR DIRECTED BY . 30 patch 1 07/10/19 25 Active clonazePAM (KlonoPIN) 1 MG tabletIndicati ons:VALENT[place] (generalized anxiety disorder) Take 1 tablet (1 mg) by mouth Once per day. 30 tablet 07/10/19 25 Active oxyCODONE-acet aminophen (Percocet) 7.5-325 MG tabletIndicati ons:Chronic left-sided low back pain with left-sided sciatica Take 1 tablet by mouth every 6 (six) hours if needed for severe pain. Do not start before March 23, 2024. 112 tablet 03/23/19 25 025 Discontinued(R eorder (will not trigger notification to Pharmacy)) DULoxetine (Cymbalta) [address] capsule TAKE 1 CAPSULE BY MOUTH TWICE A DAY. DO NOT CRUSH OR CHEW. 60 capsule 2 04/09/19 25 025 Discontinued loperamide (Anti-Diarrhea l) 2 MG tabletIndicati ons:Diarrhea, unspecified type Take 1 tablet (2 mg) by mouth if needed in the morning, at noon, in the evening, and at bedtime for diarrhea. 30 tablet 2 04/17/19 25 025 Discontinued lidocaine (Lidoderm) 5 % patchIndicatio ns:Chronic left-sided low back pain with left-sided sciatica APPLY 1 PATCH TOPICALLY EVERY DAY REMOVE AND DISCARD PATCH WITHIN 12 HOURS OR DIRECTED BY . 30 patch 1 04/18/19 25 025 Discontinued(R eorder (will not trigger notification to Pharmacy)) ondansetron (Zofran) 4 MG tablet TAKE 2 TABLETS BY MOUTH EVERY 8 HOURS NEEDED FOR NAUSEA AND VOMITING 30 tablet 3 05/09/19 25 025 Discontinued clonazePAM (KlonoPIN) 1 MG tabletIndicati ons:VALENTINA (generalized anxiety disorder) Take 1 tablet (1 mg) by mouth Once per day. Do not start before June 08, 2024. 30 tablet 06/09/19 25 025 Discontinued(R eorder (will not trigger notification to Pharmacy)) celecoxib (CeleBREX) 200 MG capsuleIndicat ions:Chronic left shoulder pain,Muscle spasm TAKE 1 CAPSULE BY MOUTH IN THE MORNING AND AT BEDTIME NEEDED FOR MODERATE PAIN 60 capsule 06/09/19 25 025 Discontinued amitriptyline (Elavil) 10 MG tabletIndicati ons:Diarrhea, unspecified type TAKE 1 TABLET BY MOUTH EVERYDAY AT BEDTIME 30 tablet 06/09/19 25 025 Discontinued oxyCODONE (Roxicodone) 10 MG immediate release tabletIndicati ons:Chronic left-sided low back pain with left-sided sciatica Take 1 tablet (10 mg) by mouth every 8 (eight) hours if needed for severe pain for up to 28 days. Do not start before June 14, 2024. 84 tablet 06/15/19 25 025 Discontinued(R eorder (will not trigger [...] the last 15 years. Now engaged with [facility] for OP, and waiting to be connected with psych provider. Severe anxiety is interfering with daily activities and affecting her interpersonal relationships. PLAN: (check all that apply) Continue with current services (defined as services in the past 12 months) Behavioral Health Integration Plan Patient Self Plan Patient to utilize skills provided in intervention , Patient to reach out to [facility] team as needed, Patient to engage in OP therapy , and Patient to reach out to [facility] as needed. Pt reports being connected with [facility] for individual therapy. She completed third OP session and was added to wait list for psych provider within [facility]. Mixed stress and urge urinary incontinence 11/02 [...] the last 15 years. Now engaged with [facility] for OP, and waiting to be connected with psych provider. Severe anxiety is interfering with daily activities and affecting her interpersonal relationships. PLAN: (check all that apply) Continue with current services (defined as services in the past 12 months) Behavioral Health Integration Plan Patient Self Plan Patient to utilize skills provided in intervention , Patient to reach out to [facility] team as needed, Patient to engage in OP therapy , and Patient to reach out to [facility] as needed. Pt reports being connected with [facility] for individual therapy. She completed third OP session and was added to wait list for psych provider within [facility]. Obesity with body mass index 30 or [...] organization. Date Type Department Care Team Description 07/10/2024 Refill [facility] [address] [place] [address] Carlo Santana MD Chronic left-sided low back pain with left-sided sciatica; Chronic left-sided low back pain with left-sided sciatica 07/10/2024 Telephone [facility] [address] [place] [address] Fariba Gandhi, RN 07/10/[address] [address] Carlo Santana MD Call Back Request 07/10/2024 Patient Outreach [address] [address] Carlo Santana MD 07/10/[address] [phone] Carlo Santana MD Prior Authorization 07/09/2024 Patient Outreach [address] [address] Carlo Santana MD 07/09/2024 Refill [facility] [address] [place] [address] Carlo Santana MD Chronic left-sided low back pain with left-sided sciatica 07/09/2024 Refill [facility] [address] [place] [address] Carlo Santana MD VALENTINA (generalized anxiety disorder) 07/02/2024 Refill [facility] [address] [place] [address] Carlo Santana MD Diarrhea, unspecified type; Diarrhea, unspecified type; Chronic left shoulder pain; Muscle spasm 06/26/2024 Patient Outreach [address] [address] Carlo Santana MD Care Coordination (CM/CHW outreach) 06/26/2024 Telephone [facility] [address] [place] [address] Fariba Gandhi, RN Call Back Request (/) 06/25/2024 Telephone [facility] [address] [place] [address] Carlo Santana MD Medication Question; Med Refill 06/25/2024 Patient Outreach [address] [address] Carlo Santana MD Care Coordination (W Chart Review) 06/25/2024 Patient Outreach [address] [phone] Carlo Santana MD Care Coordination ([facility]- chart review) 06/25/2024 Patient Outreach [address] [address] Carlo Santana MD 06/24/2024 Refill [facility] [address] [place], [place] [phone] Carlo Santana MD Chronic left-sided low back pain with left-sided sciatica 06/22/2024 Telephone [facility] [address] [place], [place] [phone] Fariba Gandhi, RN 06/22/2024 Travel 06/21/2024 Telephone [facility] [address] [place], [place] [phone] Fariba Gandhi, RN 06/21/[address] [address] Carlo Santana MD Call Back Request 06/21/[address] [address] Carlo Santana MD Med Refill 06/14/2024 Orders Only [facility] [address] [place] [address] Carlo Santana MD Chronic left-sided low back pain with left-sided sciatica 06/14/2024 Refill [facility] [address] [place] [address] Carlo Santana MD Chronic left-sided low back pain with left-sided sciatica 06/14/2024 Telephone [facility] [address] [place], [place] [phone] Carlo Santana MD Pharmacy Change Request 06/14/2024 Telephone [facility] [address] [place] [address] Carlo Santana MD Med Refill 06/11/2024 Refill [facility] [address] [place] [address] Fariba Gandhi, concrete buster operator left-sided low back pain with left-sided sciatica 06/11/2024 Telephone [facility] [address] [place] [address] Carlo Santana MD Medication Question 06/07/2024 Refill [facility] [address] [place] [address] Carlo Santana MD Chronic left shoulder pain; Muscle spasm; Diarrhea, unspecified type 06/04/2024 Refill [facility] [address] [place] [address] Kia Zhang MD 06/04/2024 Refill [facility] [address] [place] [address] Carlo Santana MD Diarrhea, unspecified type 06/04/2024 Travel 06/04/2024 Refill [facility] [address] [place] [address] Fariba Gandhi, concrete buster operator left-sided low back pain with left-sided sciatica 06/04/2024 Telephone [facility] [address] [place] [address] Fariba Gandhi, HUGO signals intelligence analysis manager 06/04/2024 Refill [facility] [address] [place] [address] Carlo Santana MD Muscle spasm 06/04/2024 Telephone [facility] [address] [place] [address] Carlo Santana MD Med Refill 06/04/2024 Telephone [facility] [address] [place] [address] Carlo Santana MD Appointment Request 05/31/2024 Telephone [facility] [address] [place] [address] Fariba Gandhi, HUGO 05/31/2024 Refill [facility] [address] [place] [address] Carlo Santana MD Muscle spasm 05/31/2024 Telephone [facility] [address] [place] [address] Fariba Gandhi, RN signals intelligence analysis manager 05/25/2024 Telephone [facility] [address] [place] [address] Carlo Santana MD Medication Question 05/25/2024 Population Health Risk Score [facility] () Department [address] [place] [address] [phone] Provider, Population Health Generic 05/25/2024 Refill [facility] [address] [place] [address] Fariba Gandhi, RN VALENTINA (generalized anxiety disorder) 05/25/2024 Telephone [facility] [address] [place] [address] Carlo Santana MD Nurse Triage 05/25/2024 Telephone [facility] [address] [place] [address] Carlo Santana MD Med Refill 05/25/2024 Refill [facility] [address] [place] [phone] Carlo Santana MD Muscle spasm 05/23/2024 Refill [facility] [address] [place] [address] Carlo Santana MD Chronic left shoulder pain; Rib pain; Chronic left-sided low back pain with left-sided sciatica; Neck pain 05/09/2024 Refill [facility] [address] [place] [address] Carlo Santana MD Diarrhea, unspecified type; Chronic left shoulder pain; Rib pain; Chronic left-sided low back pain with left-sided sciatica; Neck pain 05/07/2024 Refill [facility] [address] [place] [address] Carlo Santana MD Chronic left shoulder pain; Muscle spasm; Diarrhea, unspecified type 05/02/2024 Refill [facility] [address] [place] [address] Carlo Santana MD VALENTINA (generalized anxiety disorder) 04/25/2024 Telephone [facility] [address] [place] [address] Fariba Gandhi RN 04/25/2024 Telephone [facility] [address] [place] [address] Carlo Santana MD Medication Question 04/23/2024 Refill [facility] [address] [place] [address] Carlo Santana MD Chronic left-sided low back pain with left-sided sciatica 04/18/2024 Refill [facility] [address] [place] [address] Carlo Santana MD Bipolar affective disorder, remission status unspecified ([facility]); Chronic left-sided low back pain with left-sided sciatica 04/17/2024 Refill [facility] [address] [place] [address] Carlo Santana MD Diarrhea, unspecified type 04/17/2024 Telephone [facility] [address] [place] [address] Carlo Santana MD Medication Question; Med Refill 04/15/2024 Refill [facility] [address] [place] [address] Carlo Santana MD Bipolar affective disorder, remission status unspecified ([facility]) from Last 3 Months Immunizations Name Administration [...] [facility] [address] [place] [address] Fariba Gandhi, RN [address] [place] [address] Health Maintenance Due Date Last Done Comments Family Planning (PISQ) 1997 Hepatitis B Vaccines (1 of 3 - 19+ 3-dose series) 2001 Dental X-Ray: Full Mouth 04/19/2021 04/18/2018 Dental Oral Exam 04/17/2022 10/14/2021, 04/18/2018 Dental Prophylaxis 04/17/2022 10/14/2021, 1 03/20/2018, 05/24/2018 Mammogram 2022 Dental X-Ray: Bitewings 10/15/2022 10/15/19 22, 05/16/2018, 04/18/2018 SDOH Screening 01/18/2025 01/19/2024 Alcohol/Substance Use Screening [...] VIEWS RIGHT Routine 06/22/2024 7:[address] CERVICAL SPINE WO CONTRAST Routine 06/22/2024 7:56 PM EDT XR CHEST 1 VIEW Routine 06/22/2024 7:[address] HEAD WO CONTRAST Routine 06/22/2024 7 :16 PM EDT AMB REFERRAL TO NEUROSURGERY Routine 04/12/2024 Chronic left-sided low back pain with left-sided sciatica HEPATITIS C AB W/REFL TO HCV RNA, [...] Recently Relevant to Health Maintenance Results * XR Knee 4+ Views Right (06/22/2024 7:58 PM EDT) Anatomical Region Laterality Modality Lower Extremities, Knee Right Radiogra phic Imaging 06/22/2024 7:58 PM EDT Narrative 06/22/2024 8:00 PM EDT ? [facility] ?[address] ?[place] [id number] ?XRay Report ? Signed ? Patient: Peri Sandy ?MR#: [id number] ?? 338 ? : 1980 ?Acct:[id number] ? Age/Sex: 43 / F ?ADM Date: 06/22/24 ? Loc: HO.ED ? Attending Dr: ? Ordering Physician: Javier Dubois ?? Date of Service: 06/22/24 ?? Procedure(s): XR knee RT 4V ?? Accession Number(s): [id number] ? cc: Carlo Santana MD; Javier Dubois ? CLINICAL HISTORY: trauma,pain ? 4 view [...] ? DD/ 57 ? TD/TT: 06/22/241957 ? Switchboard Operator Receptionist: ? Procedure Note Donrodriguez, Image - 06/22/2024 [place] [address] XRay Report Signed Patient: Peri Sandy MMR#: [id number] 338 : 1980Acct:[id number] Age/Sex: 43 / FADM Date: 06/22/24 Loc: HO.ED Attending Dr: Ordering Physician: Javier Dubois Date of Service: 06/22/24 Procedure(s): XR knee RT 4V Accession Number(s): [id number] cc: Carlo Santana MD; Javier Dubois CLINICAL [...] in OV> 06/22/241999 DD/ 57 TD/TT: 06/22/241957 Switchboard Operator Receptionist: us [facility] External Provider IMG XR PROCEDURES Edited Result - Final * XR Chest 1 View (06/22/2024 7:56 PM EDT) Anatomical Region Laterality Modality Chest Radiographic Yi ging 06/22/2024 7:56 PM EDT Narrative 06/22/2024 7:58 PM EDT ? [facility] [facility] ?[address] ?[place] [address] ?XRay Report ? Signed ? Patient: Du,Peri M ?MR#: [id number] ?? 338 ? : 1980 ?Acct:[id number] ? Age/Sex: 43 / F ?ADM Date: 06/22/24 ? Loc: HO.ED ? Attending Dr: ? Ordering Physician: Javier Dubois ?? Date of Service: 06/22/24 ?? Procedure(s): XR chest 1V ?? Accession Number(s): [id number] ? cc: Carlo Santana MD; Javier Dubois [...] ? DD/ 55 ? TD/TT: 06/22/241955 ? Switchboard Operator Receptionist: ? Procedure Note Geovanny Villalobos - 06/22/2024 [place] [address] XRay Report Signed Patient: Peri Sandy MMR#: [id number] 338 : 1980Acct:[id number] Age/Sex: 43 / FADM Date: 06/22/24 Loc: HO.ED Attending Dr: Ordering Physician: Javier Dubois Date of Service: 06/22/24 Procedure(s): XR chest 1V Accession Number(s): [id number] cc: Carlo Santana MD; Javier Dubois CLINICAL [...] in OV> 06/22/241957 DD/ 55 TD/TT: 06/22/241955 Switchboard Operator Receptionist: us [facility] External Provider IMG XR PROCEDURES Edited Result - Final * CT Cervical Spine w/o Contrast (06/22/2024 7:56 PM EDT) Anatomical Region Laterality Modality Spine, C-spine Computed Tomogra phy 06/22/2024 7:56 PM EDT Narrative 06/22/2024 7:58 PM EDT ? [facility] ?[address] ?[place] [id number] ? CT Scan Report ? Signed ? Patient: Peri Sandy ?MR#: [id number] ?? 338 ? : 1980 ?Acct:[id number] ? Age/Sex: 43 / F ?ADM Date: 06/22/24 ? Loc: HO.ED ? Attending Dr: ? Ordering Physician: Javier Dubois ?? Date of Service: 06/22/24 ?? Procedure(s): CT cervical spine wo IV con ?? Accession Number(s): [id number] ? cc: Carlo Santana MD; Javier Dubois ? Report Number: ?? [id number]: Total DLP = ??333.00 mGy-cm ? CLINICAL HISTORY: trauma ? CT cervical spine without contrast ? Comparison: MR/WV/SR - MR CERVICAL SPINE WO CON - [...] ? DD/ 55 ? TD/TT: 06/22/241955 ? Switchboard Operator Receptionist: ? Procedure Note Donrodriguez, Geovanny - 06/22/[address] [place] [address] [address] Scan Report Signed Patient: Peri Sandy MMR#: [id number] 338 : 1980Acct:[id number] Age/Sex: 43 / FADM Date: 06/22/24 Loc: HO.ED Attending Dr: Ordering Physician: Javier Dubois Date of Service: 06/22/24 Procedure(s): CT cervical spine wo IV con Accession Number(s): [id number] cc: Carlo Santana MD; Javier Dubois Report Number: [id number]: Total DLP = 333.00 mGy-cm CLINICAL HISTORY: trauma CT cervical spine without contrast Comparison: MR/WV/SR - MR CERVICAL SPINE WO CON - [...] in OV> 06/22/241957 DD/ 55 TD/TT: 06/22/241955 Switchboard Operator Receptionist: [facility] External Provider IMG CT PROCEDURES Edited Result - Final * CT Head w/o Contrast (06/22/2024 7:16 PM EDT) Anatomical Region Laterality Modality Head, Neck Computed Tomogra phy 06/22/2024 7:16 PM EDT Narrative 06/22/2024 7:18 PM EDT ? [facility] [facility] ?[address] ?[place] [address] ? CT Scan Report ? Signed ? Patient: Du,Peri M ?MR#: [id number] ?? 338 ? : 1980 ?Acct:[id number] ? Age/Sex: 43 / F ?ADM Date: 06/22/24 ? Loc: HO.ED ? Attending Dr: ? Ordering Physician: Javier Dubois ?? Date of Service: 06/22/24 ?? Procedure(s): CT head/brain wo IV con ?? Accession Number(s): [id number] ? cc: Carlo Santana MD; Javier Dubois ? Report Number: ?? [id number]: Total DLP = ??967.00 mGy-cm ? CLINICAL [...] ? DD/ 15 ? TD/TT: 06/22/241915 ? Switchboard Operator Receptionist: ? Procedure Note Geovanny Villalobos - 06/22/[address] [address] [address] Scan Report Signed Patient: Peri Sandy MMR#: [id number] 338 : 1980Acct:[id number] Age/Sex: 43 / FADM Date: 06/22/24 Loc: HO.ED Attending Dr: Ordering Physician: Javier Dubois Date of Service: 06/22/24 Procedure(s): CT head/brain wo IV con Accession Number(s): [id number] cc: Carlo Santana MD; [email or web address] Report Number: [id number]: Total DLP = 967.00 mGy-cm CLINICAL HISTORY: [...] in OV> 06/22/241917 DD/ 15 TD/TT: 06/22/241915 Switchboard Operator Receptionist: [facility] External Provider IMG CT PROCEDURES Edited Result - Final * Referral to Neurosurgery (04/12/2024) Carlo Santana MD OUTPATIENT REFERRAL ORDERAB LES Final Result * Hepatitis C Antibody with Reflex to HCV, RNA, Quantitative, Real-Time PCR (01/26/2024 11:58 AM EST) Pathologist [facility] Hepatitis C Antibody Nonreactive Nonreactive [facility] Comment:Antibodies to HCV no t detected; does not exclude early acuteHCV infection. Blood Venous blood specimen / Unknown 01/26/2024 11:58 AM EST 01/26/2024 2:10 PM EST Carlo Santana MD LAB BLOOD ORDERABLES Final Result [facility] [address] [place] [phone] * HIV-1/2 Antigen and Antibodies, Fourth Generation, with Reflexes (01/26/2024 11:58 AM EST) HIV AB/AG Nonreactive Nonreactive [facility] Comment:HIV-1 p24 Ag and/or HIV-1/HIV-2 Ab not detected.A test result that is nonreactive does not exclude thepossibility of exposure to or infection with HIV-1 and/orHIV-2. Nonreactive results in this assay for individualswith prior exposure to HIV-1 and/or HIV-2 may be due toantigen and antibody levels that are below the limit ofdetection of this assay.The [employer] HIV Ag/Ab Combo assay result andsupplemental assay results should be interpreted inconjunction with the patient's clinical presentation,history and other laboratory results. If the results areinconsistent with clinical evidence, additional testing issuggested to confirm the result. Blood Venous blood specimen / Unknown 01/26/2024 11:58 AM EST 01/26/2024 2:10 PM EST Carlo Santana MD LAB BLOOD ORDERABLES Final Result [facility] [address] [place] [phone] * Pap Smear (02/11/2021) Pap Negative for intraephithelial lesion or malignancy Negative for intraephithelial lesion or malignancy, Other HPV Undetected Undetected, Indeterminate, Quantitative, Not Detected Historical Provider HEALTH MAINTENANCE Final Result from Last 3 Months or Most Recently Relevant to Health Maintenance [facility] [employer] AD[place] Care Teams Information Security Engineer Relationship Specialty Start Date End Date Carlo Santana MD [address] [place] [address] LEATHA Leblanc [address] PCP - General Internal Medicine 12/28/17
--- OUTSIDE RECORDS SUMMARY | 2024-07-11 14:53 | XMS_ITS | Encounter Summary ---
Author Organization [employer] Address [address] [place] [address] 7 [place] [address] Care Team Providers Care Director Epidemiology Name Role Phone Carlo Santana MD Primary Care Provider +1- [phone] Reason for Visit * Reason Onset Date Comments Prior Authorization 09/14/2023 Encounter Details Date Type Department Care Team ([facility] st Contact Info) Description 09/14/2023 Telephone [facility] MED & PEDS [address] [place] [address] Carlo Santana MD 505 [place] [address] Prior Authorization Social History Tobacco Use Types [...] Description 07/12/2024 9:30 AM EDT Clinical Support [facility] MED & PEDS 505 [place] [address] Fariba Gandhi, RN 505 [place] [address] documented as of this encounter Visit Diagnoses Diagnosis Chronic left-sided low back pain with left-sided sciatica documented in this encounter Additional Health Concerns Assessment Noted Time PHQ-9 Depression Total Score: 3 06/04/19 23 3:42 PM EDT documented as of this encounter Care Teams Director Epidemiology Relationship Specialty Start Date End Date Carlo Santana MD 505 [place] [address] PCP - General Internal Medicine 12/28/17 documented as of this encounter
--- OUTSIDE RECORDS SUMMARY | 2024-07-11 14:53 | XMS_ITS | Encounter Summary ---
Author Organization [facility] Address [address] [place] [address] Care Team Providers Care Propeller Engineer Name Role Phone Chandni Boogie MD Primary Care Provider Unavailable Mary Lott MD Primary Care Provider Unavail able Maria Antonia Gerber MD Primary Care Provider Unavaila [facility], Pcp Primary Care Provider Unavailabl e Reason for Visit * Reason Onset Date Comments refill request 10/11/2014 Encounter Details Date Type Department Care Team Description 10/11/2014 Refill Medicine/Pediatrics - [address] [id number] Chandni Boogie MD refill request Social History [...] on filedocumented in this encounter Care Teams Propeller Engineer Relationship Specialty Start Date End Date Chandni Boogie MD PCP - General Internal Medicine 06/09/1204/19 Mary Lott MD PCP - General Internal Medicine 04/20/16 07/15/16 Maria Antonia Gerber MD PCP - General Internal Medicine 07/16/16 01/22/18 Count Includes [facility], Pcp PCP - General Internal Medicine 01/23/18 documented as of this encounter
--- OUTSIDE RECORDS SUMMARY | 2024-07-11 14:53 | XMS_ITS | Encounter Summary ---
Author Organization [employer] Address [address] [facility] 7 [place] [address] Care Team Providers Care Brass Polisher Name Role Phone Carlo Santana MD Primary Care Provider +1- [phone] Reason for Visit * Reason Onset Date Comments Call Back Request 06/21/2024 Encounter Details Date Type Department Care Team ([facility] st Contact Info) Description 06/21/2024 Telephone [facility] MEDICINE [address] [place] [address] Carlo Santana MD [address] [place], [place] [phone] Call Back Request Social History Tobacco Use [...] [facility] MED & PEDS 505 [place] [address] Fariba Gandhi RN 505 [facility] [place] [address] documented as of this encounter Visit Diagnoses Diagnosis Chronic left-sided low back pain with left-sided sciatica documented in this encounter Additional Health Concerns Assessment Noted Time PHQ-9 Depression Total Score: 15 024 11:50 AM EST documented as of this encounter Care Teams Brass Polisher Relationship Specialty Start Date End Date Carlo Santana MD [address] [place] [address] PCP - General Internal Medicine 12/28/17 documented as of this encounter
--- OUTSIDE RECORDS SUMMARY | 2024-07-11 14:53 | XMS_ITS | Encounter Summary ---
Author Organization [employer] Address [address] [place] [address] 7 [place] [address] Care Team Providers Care Machine Shop Apprentice Name Role Phone Carlo Santana MD Primary Care Provider +1- [phone] Reason for Visit * Reason Onset Date Comments Appointment Request 09/16/2023 Encounter Details Date Type Department Care Team ([facility] st Contact Info) Description 09/16/2023 Telephone [facility] CHC MED & PEDS 505 [place] [address] Carlo Santana MD 505 [place] [address] Appointment Request Social History Tobacco Use Types [...] requesting telehealth with PCP to discuss medication. Vaccine Customer Representative attempted to schedule for November but pt declined and stated would like a sooner appointment. Denied triage. Contact pt at [phone] documented in this encounter Plan of Treatment Upcoming Encounters Date Type Department Care Team (Late st Contact Info) Description 07/12/2024 9:30 AM EDT Clinical Support [facility] CHC MED & PEDS 505 [place] [address] Fariba Gandhi, HUGO 505 [place] [address] documented as of this encounter Visit Diagnoses Not on filedocumented in this encounter Additional Health Concerns Assessment Noted Time PHQ-9 Depression Total Score: 3 06/04/19 23 3:42 PM EDT documented as of this encounter Care Teams Machine Shop Apprentice Relationship Specialty Start Date End Date Carlo Santana MD 505 [place] [address] PCP - General Internal Medicine 12/28/17 documented as of this encounter
--- OUTSIDE RECORDS SUMMARY | 2024-07-11 14:53 | XMS_ITS | Encounter Summary ---
Author Organization [id number] Address [address] [facility] 7 [place] [address] Care Team Providers Care Tanning Wheel Operator Name Role Phone Carlo Santana MD Primary Care Provider +1- [phone] Reason for Visit * Reason Onset Date Comments triage 08/10/2022 Encounter Details Date Type Department Care Team (Late st Contact Info) Description 08/10/2022 Telephone [facility] 230 [place] [address] Carlo Santana MD [address] [address] [place], [place] [phone] triage Social History Tobacco Use Types Packs/Day [...] [facility] MED & PEDS 505 [place] [address] Fariba Gandhi RN 505 [place] [address] documented as of this encounter Visit Diagnoses Not on filedocumented in this encounter Additional Health Concerns Assessment Noted Time PHQ-9 Depression Total Score: 3 06/04/19 23 3:42 PM EDT documented as of this encounter Care Teams Tanning Wheel Operator Relationship Specialty Start Date End Date Carlo Santana MD 505 [place] [address] PCP - General Internal Medicine 12/28/17 documented as of this encounter
--- OUTSIDE RECORDS SUMMARY | 2024-07-11 14:53 | XMS_ITS | Encounter Summary ---
Author Organization [employer] Address [address] [facility] 7 [place] [address] Care Team Providers Care Director Internal Communications Name Role Phone Carlo Santana MD Primary Care Provider +1- [phone] Reason for Visit * Reason Onset Date Comments Med Refill 02/20/2024 Encounter Details Date Type Department Care Team ([facility] st Contact Info) Description 02/20/2024 Telephone [facility] 230 [place] [address] Carlo Santana MD 505 [place], [place] [id number] Med Refill Social History Tobacco Use Types [...] (1000 UT) capsule To be sent to: [facility]/pharmacy #[id number] LEATHA PHILLIPS - [address] [facility] documented in this encounter Plan of Treatment Upcoming Encounters Date Type Department Care Team ([facility] st Contact Info) Description 07/12/2024 9:30 AM EDT Clinical Support [facility] CH[facility] MED & PEDS 505 [place] [address] Fariba Gandhi, HUGO 505 [place] [address] documented as of this encounter Visit Diagnoses Not on filedocumented in this encounter Additional Health Concerns Assessment Noted Time PHQ-9 Depression Total Score: 15 024 11:50 AM EST documented as of this encounter Care Teams Director Internal Communications Relationship Specialty Start Date End Date Carlo Santana MD 505 [place] [address] PCP - General Internal Medicine 12/28/17 documented as of this encounter
--- OUTSIDE RECORDS SUMMARY | 2024-07-11 14:53 | XMS_ITS | Encounter Summary ---
Author Organization [employer] Address [address] [facility] 7 [place] [address] Care Team Providers Care Automobile Glass Technician Name Role Phone Carlo Santana MD Primary Care Provider +1- [phone] Reason for Visit * Reason Onset Date Comments Referral 02/22/2024 Encounter Details Date Type Department Care Team (Late st Contact Info) Description 02/22/2024 Telephone [facility] MEDICINE 230 [place] [address] Carlo Santana MD [address] [address] [place], [place] [phone] Referral Social History Tobacco Use Types Packs/Day [...] second referral for Outpatient Therapy, Callback number [phone] documented in this encounter Plan of Treatment Upcoming Encounters Date Type Department Care Team (Late st Contact Info) Description 07/12/2024 9:30 AM EDT Clinical Support [facility] MED & PEDS 505 [place] [address] Fariba Gandhi, RN 505 [place] [address] documented as of this encounter Visit Diagnoses Not on filedocumented in this encounter Additional Health Concerns Assessment Noted Time PHQ-9 Depression Total Score: 15 024 11:50 AM EST documented as of this encounter Care Teams Automobile Glass Technician Relationship Specialty Start Date End Date Carlo Santana MD [address] [place] [address] PCP - General Internal Medicine 12/28/17 documented as of this encounter
--- OUTSIDE RECORDS SUMMARY | 2024-07-11 14:53 | XMS_ITS | Encounter Summary ---
Author Organization [employer] Address [address] [facility] 7 [place] [address] Care Team Providers Care Reproduction Order Processor Name Role Phone Carlo Santana MD Primary Care Provider +1- [phone] Reason for Visit * Reason Onset Date Comments Referral 07/26/2022 Encounter Details Date Type Department Care Team (Late st Contact Info) Description 07/26/2022 Telephone [facility] MEDICINE 230 [place] [address] Carlo Santana MD 505 [place], [place] [phone] Referral Social History Tobacco Use Types Packs/Day [...] was not satisfied. Please contact pt at [phone] documented in this encounter Plan of Treatment Upcoming Encounters Date Type Department Care Team (Late st Contact Info) Description 07/12/2024 9:30 AM EDT Clinical Support [facility] MED & PEDS 505 [place] [address] Fariba Gandhi, RN 505 [place] [address] documented as of this encounter Visit Diagnoses Not on filedocumented in this encounter Additional Health Concerns Assessment Noted Time PHQ-9 Depression Total Score: 3 06/04/19 23 3:42 PM EDT documented as of this encounter Care Teams Reproduction Order Processor Relationship Specialty Start Date End Date Carlo Santana MD 505 [place] [address] PCP - General Internal Medicine 12/28/17 documented as of this encounter
--- OUTSIDE RECORDS SUMMARY | 2024-07-11 14:53 | XMS_ITS | Encounter Summary ---
Author Organization [employer] Address [address] [facility] 7 [place] [address] Care Team Providers Care Electric Trucker Name Role Phone Carlo Santana MD Primary Care Provider +1- [phone] Reason for Visit * Reason Onset Date Comments Med Refill 02/28/2024 Medication Question 02/28/2024 Encounter Details Date Type Department Care Team ([facility] st Contact Info) Description 02/28/[address] [facility] MEDICINE 230 [place] [address] Carlo Santana MD [address] [facility] [facility] [address] [place], [place] [phone] Med Refill; Medication Question Social History Tobacco [...] tablet If any questions contact pt at [phone] documented in this encounter Plan of Treatment Upcoming Encounters Date Type Department Care Team ([facility] st Contact Info) Description 07/12/2024 9:30 AM EDT Clinical Support [facility] MED & PEDS 505 [place] [address] Fariba Gandhi RN 505 [place] [address] documented as of this encounter Visit Diagnoses Not on filedocumented in this encounter Additional Health Concerns Assessment Noted Time PHQ-9 Depression Total Score: 15 024 11:50 AM EST documented as of this encounter Care Teams Electric Trucker Relationship Specialty Start Date End Date Carlo Santana MD 505 [place] [address] PCP - General Internal Medicine 12/28/17 documented as of this encounter
--- OUTSIDE RECORDS SUMMARY | 2024-07-11 14:53 | XMS_ITS | Encounter Summary ---
Author Organization [facility] Address [address] [place] [address] Care Team Providers Care Lumber Straightener Name Role Phone Chandni Boogie MD Primary Care Provider Unavailable Mary Lott MD Primary Care Provider Unavail able Maria Antonia Gerber MD [facility] Primary Care Provider Unavailabl e Reason for Referral * Non CINDY (Routine) - Authorized/Booked Specialty Diagnoses / Procedures Referred By Lisseth weaver Referred To Contact Dermatology Procedures REFERRAL TO DERMATOLOGY Chandni Boogie MD [address] [place] [address] Derm/[place] [address] [place] [address] Referral ID Status Reason Start Date Expiration Date V isits Requested Visits Authorized NOT REQUIRED Authorized/ Booked 08/09/2014 08/09/2015 1 1 Reason for Visit * Reason Onset Date Comments Commercial Drone Software Developer Feedback 2014 derm Encounter Details Date Type Department Care Team Description 2014 Telephone Adult Medicine - [place] 230 [place] [address] Chandni Boogie MD Commercial Drone Software Developer Feedback (derm) Social History Tobacco Use Types Packs/Day Years Used Date Smoking Tobacco: Never Smokeless Tobacco: Never Alcohol Use Standard Drinks/Week Comments No 0 (1 standard drink = 0.6 oz pur e alcohol) Sex Assigned at Date Recorded Not on file documented as of this encounter Miscellaneous Notes * Telephone Encounter - Bryce Patel MD - 08/09/2014 4:38 PM EDT Order signed * Telephone Encounter - Jeannette RosasPLuisitoNLuisito - 08/09/2014 3:52 PM EDT Can you review and sign in the absence of Dr. Boogie. * Telephone Encounter - Karolyn Young - 2014 4:28 PM EDT Please review this patients new referral request. The referral has been pended. Please complete thefollowing: If approved> sign order If denied>please give instructions and route to your practice nursing pool. Practice nurse should inform referrals and the patient if denied. * Telephone Encounter - Crystal Orellana - 2014 4:17 PM EDT acne * Telephone Encounter - Karolyn Young - 2014 4:[address] Monae would not see a patient with this diagnosis. Can we clarify this is the correct department patient is looking for? Thank you, Fabiana Referrals Coordinator * Telephone Encounter - Crystal Orellana - 2014 3:51 PM EDT Polycystic ovary syndrome * Telephone Encounter - Karolyn Young - 2014 3:48 PM EDT Please specify diagnosis Thank you, Fabiana Referrals Coordinator * Telephone Encounter - Crystal Orellana - 2014 3:44 PM EDT Did you verify this is patients current insurance? YES Payor: Patient [employer] FFS / Plan: FFS HMO $0 [place] [id number] / Product Type: MEDICAID RISK Effective 12/12/08: BC[employer] will not retro referral requests over 90 days. If request is for this please instruct patient to call the 800# on their insurance card to appeal. Do not submit a request. Referrals cannot be processed if the insurance is not accurate. If the insurance listed above in red is NO BILLING INFORMATION FOUND FOR THIS ENCOUTNER The patients correct insurance must be obtained and registered in [employer] or their referral can not be processed. Who is calling to request this referral? THE PT If the caller is not the patient, what is their name? FIRST and LAST NAME of SPECIALIST PATIENT is seeing: Dr Monae What specialty is this? derm DIAGNOSIS Patient is being seen for (Not a body part or a procedure): pcos Have you seen this SPECIALIST for this PROBLEM/DX before?YES If YES, when:2013 Have you checked REVIEW or the APPT DESK to see if this referral has already been done or has visits left? YES Who referred the patient to this specialty? Chandni Boogie Is this visit:Follow Up Address of Specialist: [address] [place] [address] Phone # of Specialist:[phone] Fax #: (if applicable): Does patient have an appointment scheduled?: NO Date of appointment- (including a retro-request): Is this appointment related to: Not MVA, WC or Surgery related documented in this encounter Plan of Treatment Not on file documented as of this encounter Visit Diagnoses Not on filedocumented in this encounter Care Teams Lumber Straightener Relationship Specialty Start Date End Date Chandni Boogie MD PCP - General Internal Medicine 06/09/1204/19 Mary Lott MD PCP - General Internal Medicine 2/7/17 5/4/17 Maria Antonia Gerber MD PCP - General Internal Medicine 07/16/16 01/22/18 [facility], Pcp PCP - General Internal Medicine 01/23/18 documented as of this encounter
--- OUTSIDE RECORDS SUMMARY | 2024-07-11 14:53 | XMS_ITS | Encounter Summary ---
Author Organization [facility] Address [address] [place] [address] Care Team Providers Care Electronic Technologist Name Role Phone Chandni Boogie MD Primary Care Provider Unavailable Mary Lott MD Primary Care Provider Unavail able Maria Antonia Gerber MD [facility] Primary Care Provider Unavailabl e Reason for Visit * Reason Onset Date Comments er follow up 04/19/2016 Encounter Details Date Type Department Care Team Description 04/19/2016 Telephone Adult Medicine - [address] [address] Chandni Boogie MD er follow up Social [...] on filedocumented in this encounter Care Teams Electronic Technologist Relationship Specialty Start Date End Date Chandni Boogie MD PCP - General Internal Medicine 06/09/1204/19 Mary Lott MD PCP - General Internal Medicine 04/20/16 07/15/16 Mari aAntonia Gerber MD PCP - General Internal Medicine 07/16/16 01/22/18 [facility], Pcp PCP - General Internal Medicine 01/23/18 documented as of this encounter
--- OUTSIDE RECORDS SUMMARY | 2024-07-11 14:53 | XMS_ITS | Encounter Summary ---
Author Organization [employer] Address [address] [place] [address] 7 [place] [address] Care Team Providers Care Tight Barrel Inspector Name Role Phone Carlo Santana MD Primary Care Provider +1- [phone] Reason for Visit * Reason Onset Date Comments Results 02/14/2023 Encounter Details Date Type Department Care Team ([facility] st Contact Info) Description 02/14/2023 Telephone [facility] CHC MED & PEDS 505 [place] [address] Carlo Santana MD 505 [place] [address] Results Social History Tobacco Use Types Packs/Day [...] hip on 02/09. Please contact pt at [phone] documented in this encounter Plan of Treatment Upcoming Encounters Date Type Department Care Team (Late st Contact Info) Description 07/12/2024 9:30 AM EDT Clinical Support [facility] CHC MED & PEDS 505 [place] [address] Fariba Gandhi, HUGO 505 [place] [address] documented as of this encounter Visit Diagnoses Not on filedocumented in this encounter Additional Health Concerns Assessment Noted Time PHQ-9 Depression Total Score: 3 06/04/19 23 3:42 PM EDT documented as of this encounter Care Teams Tight Barrel Inspector Relationship Specialty Start Date End Date Carlo Santana MD 505 [place] [address] PCP - General Internal Medicine 12/28/17 documented as of this encounter
--- OUTSIDE RECORDS SUMMARY | 2024-07-11 14:53 | XMS_ITS | Encounter Summary ---
Author Organization [employer] Address [address] [place] [address] 7 [place] [address] Care Team Providers Care Stable Hand Name Role Phone Carlo Santana MD Primary Care Provider +1- [phone] Reason for Visit * Reason Onset Date Comments Medication Question 01/25/2023 Encounter Details Date Type Department Care Team ([facility] st Contact Info) Description 01/25/2023 Telephone [facility] CHC MED & PEDS [address] [place] [address] Carlo Santana MD [address] [place] [address] Medication Question Social History Tobacco Use Types [...] returning phone call Please contact pt at [phone] * Telephone Encounter - Rand Savage RN [...] losing any weight. Please contact pt at [phone] documented in this encounter Plan of Treatment Upcoming Encounters Date Type Department Care Team (Late st Contact Info) Description 07/12/2024 9:30 AM EDT Clinical Support [facility] MED & PEDS 505 [place] [address] Fariba Gandhi, RN 505 [place] [address] documented as of this encounter Visit Diagnoses Diagnosis Low back pain radiating down leg documented in this encounter Additional Health Concerns Assessment Noted Time PHQ-9 Depression Total Score: 3 06/04/19 23 3:42 PM EDT documented as of this encounter Care Teams Stable Hand Relationship Specialty Start Date End Date Carlo Santana MD [address] [place] [address] PCP - General Internal Medicine 12/28/17 documented as of this encounter
--- OUTSIDE RECORDS SUMMARY | 2024-07-11 14:53 | XMS_ITS | Encounter Summary ---
Author Organization [employer] Address [address] [place] [address] Care Team Providers Care Woodworking Machine Offbearer Name Role Phone Carlo Santana MD Primary Care Provider +1- [phone] Reason for Referral * Imaging (Routine) - Closed Specialty Diagnoses / Procedures Referred By Contac t Referred To Contact Diagnoses Right ovarian cyst Procedures Us Pelvis complete Carlo Santana MD [address] [place] [address] Phone: tel: fax: [address] Phone: tel: fax: Referral ID Status Reason Start Date Expiration Date Visits Re quested Visits Authorized [id number] Closed 07/08/2022 01/04/2023 1 1 * Imaging (Routine) - Closed Specialty Diagnoses / Procedures Referred By Contac t Referred To Contact Diagnoses Right ovarian cyst Procedures US Pelvis Transvaginal Carlo Santana MD [address] [place] [address] Phone: tel: fax: [address] Phone: tel: fax: Referral ID Status Reason Start Date Expiration Date Visits Re quested Visits Authorized [id number] Closed 07/08/2022 01/04/2023 1 1 Encounter Details Date Type Department Care Team ([facility] Contact Info) Description 07/08/2022 Orders Only [facility] MED & PEDS [address] [place] [address] Carlo Santana MD [address] [place] [address] Right ovarian cyst (Primary Dx) Social History [...] Upcoming Encounters Date Type Department Care Team ([facility] Contact Info) Description 07/12/2024 9:30 AM EDT Clinical Support [facility] [address] [place] [address] Fariba Gandhi RN [address] [place] [address] Scheduled Orders Name Type Priority Associated Diagnoses [...] Anti Nuclear Antibody Screen POSITIV E(A) NEGATIVE [facility] Comment:TRUDY IFA is a first l ine screen for detecting thepresence of up to approximately 150 autoantibodies invarious autoimmune diseases. A positive TRUDY IFA resultis suggestive of autoimmune disease and reflexes totiter and pattern. Further laboratory testing may beconsidered if clinically indicated.For additional information, please refer tohttp://education.Loaded Pocket/faq/BUO661(This link is being provided for informational/educational purposes only.) TRUDY Titer 1:640(A ) titer [facility] Comment:Reference Range <1:4 0 Negative 1:40-1:80 Low Antibody Level >1:80 Elevated Antibody Level TRUDY Pattern Nuclear , Homogen eous(A) [facility] Comment:Homogeneous pattern is associated with systemic lupuserythematosus (SLE), drug-induced lupus and juvenileidiopathic arthritis.AC-1: HomogeneousInternational Consensus on TRUDY Patterns(https://doi.org/10.1515/ckib-7635-6455)THIS TEST WAS PERFORMED AT:[id number] [place] [id number] HUTTON MD TRUDY TITER 2 (REF LAB) [facility]ITER 3 [facility] PAT[facility] 3 [facility] 07/08/2022 11:3 7 AM EDT 07/08/2022 11:37 AM EDT [facility] External Provider LAB BLO OD ORDERABLES Final Result Performing Organization Address [facility] Co de Phone Number [facility] [address] [place] [address] [phone] * Sed Rate by Modified Magdalene (07/08/2022 11:37 AM EDT) Erythrocyte Sedimentation Rate 6 0 - 20 MM/HR [facility] Comment:Patients with polycy themia and many hemoglobin abnormalitiesmay have depressed sed rates whereas patients with anemiamay have elevated sed rates. 07/08/2022 11:3 7 AM EDT 07/08/2022 11:37 AM EDT [facility] External Provider LAB BLO OD ORDERABLES Final Result Performing Organization Address [facility] de Phone Number [facility] [address] [place] [address] [phone] * APTT (07/08/2022 11:37 AM EDT) Partial Thromboplastin Time 30.5 26.0 - 36.4 SEC [facility] 07/08/2022 11:3 7 AM EDT 07/08/2022 11:37 AM EDT [facility] External Provider LAB BLO OD ORDERABLES Final Result Performing Organization Address [facility] de Phone Number [facility] [address] [place] [address] [phone] * Prothrombin Time-INR (07/08/2022 11:37 AM EDT) [facility] Prothrombin Time 11.8 10.0 - 13.1 SEC [facility] INTERNATIONAL NORM RATIO 1.0 0.9 - 1.1 [facility] Comment:INTERNATIONAL NORMAL IZED RATIO (INR) REFERENCE [...] 7 AM EDT 07/08/2022 11:37 AM EDT [facility] External Provider LAB BLO OD ORDERABLES Final Result Performing Organization Address City/State/[facility] Co de Phone Number [facility] [address] [place] [phone] * (ABNORMAL) CBC auto differential (07/08/2022 11:37 AM EDT) [facility] White Blood Count 9.3 4.8 - 10.8 X10*3/uL [facility] Red Blood Count 4.52 4.20 - 5.50 X10*6/uL [facility] Hemoglobin 14.3 12.0 - 16.0 g/dl [facility] Hematocrit 42.3 37.0 - 47.0 % [facility] Mean Corpuscular Volume 93.6 80.0 - 98.0 fL [facility] Mean Corpuscular Hemoglobin 31.6 27.0 - 33.0 pg [facility] Mean Corpuscular HGB Conc 33.8 31.0 - 35.0 g/dl [facility] Red Cell Distribution Width 12.4 11.0 - 16.0 % [facility] Platelet Count 260 160 - 400 X10*3/uL [facility] Mean Platelet Volume 11.0 9.4 - 12.3 fL [facility] Neutrophils Percent Auto 67.8 45 - 73 % [facility] Imm Gran Pct Auto 0.4 0.0 - 0.4 % [facility] Lymphocytes Percent Auto 24.9 20 - 40 % [facility] Monocytes Percent Auto 5.5 2 - 11 % [facility] Eosinophils Percent Auto 0.8 0 - 4 % [facility] Basophils Percent Auto 0.6 0 - 2 % [facility] NRBC Pct Auto 0.0 0.0 - 0.2 /100WBC [facility] Neutrophils Absolute Auto 6.3 2.0 - 8.3 x10*3/uL [facility] Imm Gran Abs Auto 0.04(H) 0.00 - 0.03 X10*3/uL [facility] Lymphocytes Absolute Auto 2.3 1.2 - 4.9 X10*3/uL [facility] Monocytes Absolute Auto 0.5 0.1 - 1.2 X10*3/uL [facility] Eosinophils Absolute Auto 0.1 0.0 - 0.4 X10*3/uL [facility] Basophils Absolute Auto 0.1 0.0 - 0.2 X10*3/uL [facility] NRBC Abs Auto 0.000 0.0 - 0.012 X10*3/uL [facility] 07/08/2022 11:3 7 AM EDT 07/08/2022 11:37 AM EDT [facility] External Provider LAB BLO OD ORDERABLES Final Result [facility] [address] [place] [address] [phone] documented in this encounter Visit Diagnoses Diagnosis Right ovarian cyst- Primary Other and unspecified ovarian cyst documented in this encounter Additional Health Concerns Assessment Noted Time PHQ-9 Depression Total Score: 3 06/04/19 23 3:42 PM EDT documented as of this encounter Care Teams Woodworking Machine Offbearer Relationship Specialty Start Date End Date Carlo Santana MD [address] [place] [address] PCP - General Internal Medicine 12/28/17 documented as of this encounter
--- OUTSIDE RECORDS SUMMARY | 2024-07-11 14:53 | XMS_ITS | Encounter Summary ---
Author Organization [employer] Address [address] 7 [place] [address] Care Team Providers Care Stamp Collector Name Role Phone Carlo Santana MD Primary Care Provider +1- [phone] Reason for Visit * Reason Onset Date Comments Med Refill 06/04/2024 Encounter Details Date Type Department Care Team ([facility] st Contact Info) Description 06/04/2024 Telephone [facility] MEDICINE [address] [place] [address] Carlo Santana MD [address] [place], [place] [phone] Med Refill Social History Tobacco Use Types [...] immediate release tablet To be sent to: [facility]/pharmacy #[id number] - [place]IPS - [address] [facility] documented in this encounter Plan of Treatment Upcoming Encounters Date Type Department Care Team ([facility] st Contact Info) Description 07/12/2024 9:30 AM EDT Clinical Support [facility] MED & PEDS [address] [place] [address] Fariba Gandhi RN [address] [place] [address] documented as of this encounter Visit Diagnoses Not on filedocumented in this encounter Additional Health Concerns Assessment Noted Time PHQ-9 Depression Total Score: 15 024 11:50 AM EST documented as of this encounter Care Teams Stamp Collector Relationship Specialty Start Date End Date Carlo Santana MD [address] [facility] [address] PCP - General Internal Medicine 12/28/17 documented as of this encounter
--- OUTSIDE RECORDS SUMMARY | 2024-07-11 14:54 | XMS_ITS | Encounter Summary ---
Author Organization [employer] Address [address] [facility] 7 [place] [address] Care Team Providers Care Turbine Inspector Name Role Phone Carlo Santana MD Primary Care Provider +1- [phone] Reason for Visit * Reason Onset Date Comments Med Refill 03/01/2023 Encounter Details Date Type Department Care Team ([facility] st Contact Info) Description 03/01/[address] [facility] MEDICINE [address] [place] [address] Carlo Santana MD [address] [facility] [address] [place], [place] [phone] Med Refill Social History Tobacco Use Types [...] refill on oxyCODONE-acetaminophen (Percocet) 5-325 MG tablet [facility]/pharmacy #[id number] [place]IPS - [address] [facility] documented in this encounter Plan of Treatment Upcoming Encounters Date Type Department Care Team (Late st Contact Info) Description 07/12/2024 9:30 AM EDT Clinical Support [facility] MED & PEDS [address] [place] [address] Fariba Gandhi, RN [address] [place] [address] documented as of this encounter Visit Diagnoses Not on filedocumented in this encounter Additional Health Concerns Assessment Noted Time PHQ-9 Depression Total Score: 3 06/04/19 23 3:42 PM EDT documented as of this encounter Care Teams Turbine Inspector Relationship Specialty Start Date End Date Carlo Santana MD [address] [place] [address] PCP - General Internal Medicine 12/28/17 documented as of this encounter
--- OUTSIDE RECORDS SUMMARY | 2024-07-11 14:54 | XMS_ITS | Encounter Summary ---
Author Organization [employer] Address [address] [place] [address] Care Team Providers Care Medical Staff Specialist Name Role Phone Carlo Santana MD Primary Care Provider +1- [phone] Reason for Visit * Reason Comments Med Refill Encounter Details Date Type Department Care Team (Late Contact Info) Description 05/06/2022 Refill [facility] MED & PEDS [address] [place] [address] Servando Howard MD [address] [place] [address] Chronic left-sided low back pain with left-sided [...] [facility] [address] [place] [address] Fariba Gandhi RN [address] [place], [place] [phone] documented as of this encounter Visit Diagnoses Diagnosis Chronic left-sided low back pain with left-sided sciatica documented in this encounter Care Teams Medical Staff Specialist Relationship Specialty Start Date End Date Carlo Santana MD [address] [place] [address] PCP - General Internal Medicine 12/28/17 documented as of this encounter
--- OUTSIDE RECORDS SUMMARY | 2024-07-11 14:54 | XMS_ITS | Encounter Summary ---
Author Organization [employer] Address [address] [place] [address] 7 [place] [address] Care Team Providers Care Care Transition Coordinator Name Role Phone Carlo Santana MD Primary Care Provider +1- [phone] Encounter Details Date Type Department Care Team ([facility] st Contact Info) Description 05/02/2023 Orders Only [facility] CHC MED & PEDS [address] [place], [place] [phone] Carlo Santana MD [address] [place], [place] [phone] New daily persistent headache (Primary Dx) Social [...] Upcoming Encounters Date Type Department Care Team ([facility] st Contact Info) Description 07/12/2024 9:30 AM EDT Clinical Support [facility] MED & PEDS [address] [place] [address] Fariba Gandhi, RN [address] [place] [address] documented as of this encounter Procedures Procedure [...] EST Narrative 05/23/2023 11:39 AM EDT ? [facility] ?[address] ?[place] [address] ? Magnetic Resonance Report ? Signed ? Patient: Du,Peri Vera ?MR#: [id number] ?? [id number] ? : 1980 ?Acct:[id number] ? Age/Sex: 42 / F ?ADM Date: 03/06/24 ? Loc: HO.MRI ? Attending Dr: Karl VICTOR ? Ordering Physician: Karl Meade ?? Date of Service: 05/18/23 ?? Procedure(s): MR lumbar spine wo con ?? Accession Number(s): [id number] ? cc: Carlo Santana MD; Karl Meade [...] compression fractures. ? DISC SPACES AND ENDPLATES: Vrbuvqpv-vb-zatpkb intervertebral disc space ?? height loss asymmetric to the left at L4-L5 with disc desiccation ?? stable in appearance. Sfgr-zy-zqvrwdjl disc volume loss at L3-L4 ?? asymmetric to the left, slightly progressed from previous exam with a ?? stable small Schmorl's node along the superior endplate of L4 on the ?? left. Minor spondylosis is unchanged. Mild disc volume loss at L2-L3 ?? with disc desiccation is stable. Hertjrrb-yd-lvnyrf intervertebral disc ?? space height loss asymmetric [...] ?? study. No significant central canal stenosis. Dewi-mt-opzxnoat ?? bilateral facet joint arthropathy is stable [...] exam. Within the pelvis on ?? the second time worker view, there is a 5.5 cm cystic structure in the expected ?? location of the right adnexa, similar in appearance to the previous ?? study, based on evaluation of the second time worker view. ? MR/MR lumbar spine wo con [...] roots bilaterally progressed from previous study. ?? Ppxgmote-me-vgfvig left and blsp-ni-sjmcbtzu right-sided neural ?? foraminal stenosis at L3-L4, [...] of the right ?? adnexa on the second time worker view similar to the previous study. As [...] 1135 ? DD/ 2007 ? TD/TT: ? Soccer Commentator: ? Procedure Note Wilfredo, Image - 05/23/2023 [place] [address] Magnetic Resonance Report Signed Patient: Peri Sandy MMR#: [id number] : 1980Acct:[id number] Age/Sex: 42 / FADM Date: 05/18/23 Loc: HO.MRI Attending Dr: Karl VICTOR Ordering Physician: Karl Meade Date of Service: 05/18/23 Procedure(s): MR lumbar spine wo con Accession Number(s): [id number] cc: Carlo Santana MD; Karl Meade EXAMINATION: [...] interval compression fractures. DISC SPACES AND ENDPLATES: Ktvdsvtw-lr-jjnjlp intervertebral disc space height loss asymmetric to the left at L4-L5 with disc desiccation stable in appearance. Xqlt-mz-duxmmfmj disc volume loss at L3-L4 asymmetric to the left, slightly progressed from previous exam with a stable small Schmorl's node along the superior endplate of L4 on the left. Minor spondylosis is unchanged. Mild disc volume loss at L2-L3 with disc desiccation is stable. Smhtjugq-ij-iivlin intervertebral disc space height loss asymmetric to [...] previous study. No significant central canal stenosis. Eiec-dj-rkisgunf bilateral facet joint arthropathy is stable with [...] the exam. Within the pelvis on the second time worker view, there is a 5.5 cm cystic structure in the expected location of the right adnexa, similar in appearance to the previous study, based on evaluation of the second time worker view. MR/MR lumbar spine wo con IMPRESSION: [...] nerve roots bilaterally progressed from previous study. Qsogamuw-tl-jevgqd left and errr-mt-tacasger right-sided neural foraminal stenosis at L3-L4, similar [...] location of the right adnexa on the second time worker view similar to the previous study. As noted on the previous study, this likely reflects a physiologic right ovarian cyst but is not definitely characterized as simple-appearing based on this study and therefore follow up ultrasound may be indicated. Dictated By: JOVANY BARROS MD Signed By: <Electronically signed by JOVANY BARROS MD in OV> 05/23/23 1135 DD/ 06 TD/TT: Soccer Commentator: us [facility] External Provider IMG MRI PROCEDURES Final Result * US RETROPERITONEAL LIMITED (05/17/2023 3:44 PM EST) Anatomical Region Laterality Modality Abdomen Ultrasound 05/17/2023 3:44 PM EST Narrative 05/19/2023 7:57 PM EST ? [place] [facility] ?[address] ?[place] [address] ? Ultrasound Report ? Signed ? Patient: Du,Peri M ?MR#: [id number] ?? 338 ? : 1980 ?Acct:[id number] ? Age/Sex: 42 / F ?ADM Date: 05/17/23 ? Loc: HO.US ? Attending Dr: Luis Manuel Singh MD ? Ordering Physician: Luis Manuel Singh MD ?? Date of Service: 05/17/23 ?? Procedure(s): US retroperitoneal limited ?? Accession Number(s): [id number] ? cc: Luis Manuel Singh MD; Carlo [...] ?05/19/233 ? DD/ 1544 ? TD/TT: ? Soccer Commentator: ? Procedure Note Geovanny Villalobos - 05/19/[address] [address] Ultrasound Report Signed Patient: Peri Sandy MMR#: [id number] : 1980Acct:[id number] Age/Sex: 42 / FADM Date: 05/17/23 Loc: HO.US Attending Dr: Luis Manuel Singh MD Ordering Physician: Luis Manuel Singh MD Date of Service: 05/17/23 Procedure(s): US retroperitoneal limited Accession Number(s): [id number] cc: Luis Manuel Singh MD; Carlo Santana [...] MD in OV> 05/19/231952 DD/ 1544 TD/TT: Soccer Commentator: [facility] External Provider IMG US PROCEDURES Final Result documented in this encounter Visit Diagnoses Diagnosis New daily persistent headache- Primary documented in this encounter Additional Health Concerns Assessment Noted Time PHQ-9 Depression Total Score: 3 06/04/19 23 3:42 PM EDT documented as of this encounter Care Teams Care Transition Coordinator Relationship Specialty Start Date End Date Carlo Santana MD [address] [place] [address] PCP - General Internal Medicine 12/28/17 documented as of this encounter
--- OUTSIDE RECORDS SUMMARY | 2024-07-11 14:54 | XMS_ITS | Encounter Summary ---
Author Organization [employer] Address [address] [place] [address] 7 [place] [address] Care Team Providers Care Airport Manager Name Role Phone Carlo Santana MD Primary Care Provider [phone]- [phone] Encounter Details Date Type Department Care Team ([facility] st Contact Info) Description 12/21/2023 Orders Only [facility] CHC MED & PEDS [address] [place], [place] [phone] Carlo Santana MD 505 [place], [place] [phone] Hypoproteinemia (CMS/HCC) (Primary Dx); Diarrhea, unspecified type [...] Upcoming Encounters Date Type Department Care Team ([facility] st Contact Info) Description 07/12/2024 9:30 AM EDT Clinical Support [facility] MED & PEDS [address] [place] [address] Fariba Gandhi RN [address] [place] [address] documented as of this encounter Procedures Procedure Name Priority Date/Time Associated Diagnosis Comments GASTROINTESTINAL PANEL Routine 5:33 PM EDT Diarrhea, unspecified type documented in this encounter Results * Gastrointestinal panel (aka ova & parasites) (12/24/2023 5:33 PM EDT) Campylobacter Not Detected Not Detect. [facility] Plesiomonas shigelloides Not Detected Not Detect. [facility] Salmonella Not Detected Not Detect. [facility] Vibrio Not Detected Not Detect. [facility] Vibrio cholerae Not Detected Not Detect. [facility] YERSINIA ENTEROCOLITICA Not Detected Not Detect. [facility] Enteroaggregative E. coli (EAEC) Not Detected Not Detect. [facility] Enteropathogenic E. coli (EPEC) Not Detected Not Detect. [facility] Enterotoxigenic E. coli (ETEC) lt/st Not Detected Not Detect. [facility] Shiga-like toxin-producing E. coli (STEC) stx1/stx2 Not Detected Not Detect. [facility] E coli O157 Not applicable Not Detect. [facility] Comment:E. coli containing t he O157 antigen are a subset ofShiga-like toxin- producing E. coli (STEC). Shigella/Enteroinvasive E. coli (EIEC) Not Detected Not Detect. [facility] Cryptosporidium Not Detected Not Detect. [facility] Cyclospora cayetanensis Not Detected Not Detect. [facility] Entamoeba histolytica Not Detected Not Detect. [facility] Giardia lamblia Not Detected Not Detect. [facility] Adenovirus F 40/41 Not Detected Not Detect. [facility] Astrovirus Not Detected Not Detect. [facility] Norovirus GI/GII Not Detected Not Detect. [facility] Rotavirus A Not Detected Not Detect. [facility] Sapovirus Not Detected Not Detect. [facility] Comment: All results must be correlated [...] assay is performed by Multiplexed PCR, utilizing [employer] Array. Stool Rectal contents / Unknown 12/24/2023 5:33 PM EDT 12/27/2023 12:21 PM EDT Carlo Santana MD LAB MICROBIOLOGY - GENERAL ORDERABLES Final Result [facility] [address] [place] [address] [phone] documented in this encounter Visit Diagnoses Diagnosis Hypoproteinemia (CMS/HCC)- Primary Other disorders of plasma protein metabolism Diarrhea, unspecified type documented in this encounter Additional Health Concerns Assessment Noted Time PHQ-9 Depression Total Score: 3 06/04/19 23 3:42 PM EDT documented as of this encounter Care Teams Airport Manager Relationship Specialty Start Date End Date Carlo Santana MD [address] [place] [address] PCP - General Internal Medicine 12/28/17 documented as of this encounter
--- OUTSIDE RECORDS SUMMARY | 2024-07-11 14:54 | XMS_ITS | Encounter Summary ---
Author Organization [employer] Address [address] [place] [address] 7 [place] [address] Care Team Providers Care Packing Line Operator Name Role Phone Carlo Santana MD Primary Care Provider +1- [phone] Reason for Visit * Reason Comments Med Refill Encounter Details Date Type Department Care Team ([facility] Contact Info) Description 12/06/2023 Refill [facility] MED & PEDS 505 [place] [address] Carlo Santana MD 505 [place] [address] Bipolar affective disorder, remission status unspecified (CMS/HCC) [...] Description 07/12/2024 9:30 AM EDT Clinical Support [facility] MED & PEDS 505 [place] [address] Fariba Gandhi RN 505 [place] [address] documented as of this encounter Visit Diagnoses Diagnosis Bipolar affective disorder, remission status unspecified (CMS/HCC) documented in this encounter Additional Health Concerns Assessment Noted Time PHQ-9 Depression Total Score: 3 06/04/19 23 3:42 PM EDT documented as of this encounter Care Teams Packing Line Operator Relationship Specialty Start Date End Date Carlo Santana MD 505 [place] [address] PCP - General Internal Medicine 12/28/17 documented as of this encounter
--- OUTSIDE RECORDS SUMMARY | 2024-07-11 14:54 | XMS_ITS | Encounter Summary ---
Author Organization [employer] Address [address] [place] [address] 7 [place] [address] Care Team Providers Care Threading Machine Feeder Automatic Name Role Phone Carlo Santana MD Primary Care Provider +1- [phone] Reason for Visit * Reason Onset Date Comments Med Refill 07/09/2024 Encounter Details Date Type Department Care Team ([facility] st Contact Info) Description 07/09/[address] [facility] MED & PEDS 505 [place] [address] Carlo Santana MD 505 [place] [address] Chronic left-sided low back pain with left-sided [...] * Telephone Encounter - Suyapa Santacruz - 07/09/2024 9:56 AM EDT TC from pt requesting medication refill. Medications needing refill : lidocaine (Lidoderm) 5 % patch To be sent to: [facility]/pharmacy #[id number] - [place] - [address] [facility] documented in this encounter Plan of Treatment Upcoming Encounters Date Type Department Care Team ([facility] st Contact Info) Description 07/12/2024 9:30 AM EDT Clinical Support [facility] MED & PEDS 505 [place] [address] Fariba Gandhi, HUGO 505 [place] [address] documented as of this encounter Visit Diagnoses Diagnosis Chronic left-sided low back pain with left-sided sciatica documented in this encounter Additional Health Concerns Assessment Noted Time PHQ-9 Depression Total Score: 15 024 11:50 AM EST documented as of this encounter Care Teams Threading Machine Feeder Automatic Relationship Specialty Start Date End Date Carlo Santana MD [address] [place] [address] PCP - General Internal Medicine 12/28/17 documented as of this encounter
--- OUTSIDE RECORDS SUMMARY | 2024-07-11 14:54 | XMS_ITS | Encounter Summary ---
Author Organization [employer] Address [address] [place] [address] 7 [place] [address] Care Team Providers Care Novelty Dipper Name Role Phone Carlo Santana MD Primary Care Provider +1- [phone] Reason for Visit * Reason Onset Date Comments Med Refill 09/16/2022 Encounter Details Date Type Department Care Team ([facility] st Contact Info) Description 09/16/2022 Telephone [facility] MED & PEDS 505 [place] [address] Carlo Santana MD 505 [place] [address] Med Refill Social History Tobacco Use Types [...] 9:30 AM EDT Clinical Support [facility] MED & PEDS 505 [place] [address] Fariba Gandhi, HUGO 505 [place] [address] documented as of this encounter Visit Diagnoses Not on filedocumented in this encounter Additional Health Concerns Assessment Noted Time PHQ-9 Depression Total Score: 3 06/04/19 23 3:42 PM EDT documented as of this encounter Care Teams Novelty Dipper Relationship Specialty Start Date End Date Carlo Santana MD 505 [place] [address] PCP - General Internal Medicine 12/28/17 documented as of this encounter
--- OUTSIDE RECORDS SUMMARY | 2024-07-11 14:54 | XMS_ITS | Encounter Summary ---
Author Organization [employer] Address [address] [facility] 7t [place] [address] Care Team Providers Care Developer Designer Name Role Phone Carlo Santana MD Primary Care Provider +1- [phone] Encounter Details Date Type Department Care Team (Late st Contact Info) Description 11/02/2023 Orders Only [facility] [address] [place] [address] Carlo Santana MD [address] [place], [place] [phone] Chronic left-sided low back pain with left-sided [...] [facility] 505 [place] [address] Fariba Gandhi, HUGO 505 [place] [address] documented as of this encounter Visit Diagnoses Diagnosis Chronic left-sided low back pain with left-sided sciatica documented in this encounter Additional Health Concerns Assessment Noted Time PHQ-9 Depression Total Score: 3 06/04/19 23 3:42 PM EDT documented as of this encounter Care Teams Developer Designer Relationship Specialty Start Date End Date Carlo Santana MD 505 [place] [address] PCP - General Internal Medicine 12/28/17 documented as of this encounter
--- OUTSIDE RECORDS SUMMARY | 2024-07-11 14:54 | XMS_ITS | Encounter Summary ---
Author Organization [employer] Address [address] [place] [address] 7 [place] [address] Care Team Providers Care Reel Assembler Name Role Phone Carlo Santana MD Primary Care Provider +1- [phone] Reason for Visit * Reason Comments Med Change Request Encounter Details Date Type Department Care Team ([facility] Contact Info) Description 06/21/2022 Refill [facility] MED & PEDS 505 [place] [address] Carlo Santana MD 505 [place] [address] Chronic left-sided low back pain with left-sided [...] [facility] [address] [place] [address] Fariab Gandhi, RN 505 [place] [address] documented as of this encounter Visit Diagnoses Diagnosis Chronic left-sided low back pain with left-sided sciatica documented in this encounter Additional Health Concerns Assessment Noted Time PHQ-9 Depression Total Score: 3 06/04/19 23 3:42 PM EDT documented as of this encounter Care Teams Reel Assembler Relationship Specialty Start Date End Date Carlo Santana MD 505 [place] [address] PCP - General Internal Medicine 12/28/17 documented as of this encounter
--- OUTSIDE RECORDS SUMMARY | 2024-07-11 14:54 | XMS_ITS | Encounter Summary ---
Author Organization [employer] Address [address] [facility] 7 [place] [address] Care Team Providers Care Jewel Blocker And Sawyer Name Role Phone Carlo Santana MD Primary Care Provider +1- [phone] Reason for Visit * Reason Comments Med Refill Encounter Details Date Type Department Care Team ([facility] st Contact Info) Description 03/31/2023 Refill [facility] MEDICINE 230 [place] [address] Carlo Santana MD 505 [place], [place] [phone] Chronic left-sided low back pain with left-sided [...] 07/12/2024 9:30 AM EDT Clinical Support [facility] MED & PEDS 505 [place] [address] Fariba Gandhi RN 505 [place] [address] documented as of this encounter Visit Diagnoses Diagnosis Chronic left-sided low back pain with left-sided sciatica Low back pain radiating down leg documented in this encounter Additional Health Concerns Assessment Noted Time PHQ-9 Depression Total Score: 3 06/04/19 23 3:42 PM EDT documented as of this encounter Care Teams Jewel Blocker And Sawyer Relationship Specialty Start Date End Date Carlo Santana MD 505 [place] [address] PCP - General Internal Medicine 12/28/17 documented as of this encounter
--- OUTSIDE RECORDS SUMMARY | 2024-07-11 14:54 | XMS_ITS | Encounter Summary ---
Author Organization [employer] Address [address] [facility] 7 [place] [address] Care Team Providers Care Advertising Sales Associate Name Role Phone Carlo Santana MD Primary Care Provider +1- [phone] Reason for Visit * Reason Onset Date Comments Referral 12/01/2023 Encounter Details Date Type Department Care Team (Late st Contact Info) Description 12/01/2023 Telephone [facility] MEDICINE 230 [place] [address] Carlo Santana MD [address] [place], [place] [phone] Referral Social History Tobacco Use Types Packs/Day [...] Tc from pt requesting a referral to [facility]. Stated not satisfied with [facility]. Specialty: [facility] Behavioral Health - Adult Outpatient Address: [address] [place] [address] If any questions contact pt at [phone] * Telephone Encounter - Angel Luis Oreilly - 12/01/2023 10:34 AM EDT Tc from patient calling to request a referral for a therapist states has been waiting for a call back from [facility] and has not heard a response documented in this encounter Plan of Treatment Upcoming Encounters Date Type Department Care Team (Late st Contact Info) Description 07/12/2024 9:30 AM EDT Clinical Support [facility] MED & PEDS 505 [place] [address] Fariba Gandhi, HUGO 505 [place] [address] documented as of this encounter Visit Diagnoses Not on filedocumented in this encounter Additional Health Concerns Assessment Noted Time PHQ-9 Depression Total Score: 3 06/04/19 23 3:42 PM EDT documented as of this encounter Care Teams Advertising Sales Associate Relationship Specialty Start Date End Date Carlo Santana MD [address] [place] [address] PCP - General Internal Medicine 12/28/17 documented as of this encounter
--- OUTSIDE RECORDS SUMMARY | 2024-07-11 14:54 | XMS_ITS | Encounter Summary ---
Author Organization [employer] Address [address] [facility] 7 [place] [address] Care Team Providers Care Drafting Instructor Name Role Phone Carlo Santana MD Primary Care Provider +1- [phone] Reason for Visit * Reason Onset Date Comments Med Refill 05/04/2023 Encounter Details Date Type Department Care Team ([facility] st Contact Info) Description 05/04/2023 Telephone [facility] MEDICINE 230 [place] [address] Carlo Santana MD [address] [address] [address] [place], [place] [phone] Med Refill Social History Tobacco Use Types [...] 200 MG capsule To be sent to: [facility]/pharmacy #[id number] [place] - [address] [facility] documented in this encounter Plan of Treatment Upcoming Encounters Date Type Department Care Team (Late st Contact Info) Description 07/12/2024 9:30 AM EDT Clinical Support [facility] MED & PEDS 505 [place] [address] Fariba Gandhi, HUGO 505 [place] [address] documented as of this encounter Visit Diagnoses Not on filedocumented in this encounter Additional Health Concerns Assessment Noted Time PHQ-9 Depression Total Score: 3 06/04/19 23 3:42 PM EDT documented as of this encounter Care Teams Drafting Instructor Relationship Specialty Start Date End Date Carlo Santana MD 505 [place] [address] PCP - General Internal Medicine 12/28/17 documented as of this encounter
--- OUTSIDE RECORDS SUMMARY | 2024-07-11 14:54 | XMS_ITS | Encounter Summary ---
Author Organization [employer] Address [address] [facility] 7 [place] [address] Care Team Providers Care Box Loader Name Role Phone Carlo Santana MD Primary Care Provider +1- [phone] Reason for Visit * Reason Onset Date Comments Nurse Triage 04/12/2023 Encounter Details Date Type Department Care Team (Late st Contact Info) Description 04/12/2023 Telephone [facility] MEDICINE 230 [place] [address] Carlo Santana MD [address] [facility] [address] [place], [place] [phone] Nurse Triage Social History Tobacco Use Types [...] with disposition and home care reviewed. [facility]pt [facility] 04/13/23 @ 1120am. Insurance is veriifed [...] [facility] MED & PEDS 505 [place] [address] Fariba Gandhi, RN 505 [place] [address] documented as of this encounter Visit Diagnoses Not on filedocumented in this encounter Additional Health Concerns Assessment Noted Time PHQ-9 Depression Total Score: 3 06/04/19 23 3:42 PM EDT documented as of this encounter Care Teams Box Loader Relationship Specialty Start Date End Date Carlo Santana MD 505 [place] [address] PCP - General Internal Medicine 12/28/17 documented as of this encounter
--- OUTSIDE RECORDS SUMMARY | 2024-07-11 14:54 | XMS_ITS | Encounter Summary ---
Author Organization [employer] Address [address] [place] [address] Care Team Providers Care Extractor Filler Name Role Phone Carlo Santana MD Primary Care Provider +1- [phone] Reason for Visit * Reason Comments Med Refill Encounter Details Date Type Department Care Team (Late Contact Info) Description 05/19/2022 Refill [facility] MED & PEDS 505 [place] [address] Servando Howrad MD 505 [place] [address] Chronic left-sided low back pain with left-sided [...] Description 07/12/2024 9:30 AM EDT Clinical Support [facility] MED & PEDS 505 [place] [address] Fariba Gandhi RN 505 [place], [place] [phone] documented as of this encounter Visit Diagnoses Diagnosis Chronic left-sided low back pain with left-sided sciatica documented in this encounter Care Teams Extractor Filler Relationship Specialty Start Date End Date Carlo Santana MD [address] [place] [address] PCP - General Internal Medicine 12/28/17 documented as of this encounter
--- OUTSIDE RECORDS SUMMARY | 2024-07-11 14:54 | XMS_ITS | Encounter Summary ---
Author Organization [employer] Address [address] [facility] 7 [place] [address] Care Team Providers Care Canteen Attendant Name Role Phone Carlo Santana MD Primary Care Provider +1- [phone] Reason for Visit * Reason Comments Med Refill Encounter Details Date Type Department Care Team ([facility] st Contact Info) Description 05/09/2024 Refill [facility] MEDICINE [address] [place] [address] Carlo Santana MD 505 [place], [place] [phone] Diarrhea, unspecified type; Chronic left shoulder pain; [...] [facility] MED & PEDS 505 [place] [address] Fariba Gandhi, HUGO 505 [place] [address] documented as of this encounter Visit Diagnoses Diagnosis Diarrhea, unspecified type Chronic left shoulder pain Pain in joint, shoulder region Rib pain Unspecified chest pain Chronic left-sided low back pain with left-sided sciatica Neck pain Cervicalgia documented in this encounter Additional Health Concerns Assessment Noted Time PHQ-9 Depression Total Score: 15 024 11:50 AM EST documented as of this encounter Care Teams Canteen Attendant Relationship Specialty Start Date End Date Carlo Santana MD 505 [place] [address] PCP - General Internal Medicine 12/28/17 documented as of this encounter
--- OUTSIDE RECORDS SUMMARY | 2024-07-11 14:54 | XMS_ITS | Encounter Summary ---
Author Organization [employer] Address [address] [place] [address] Care Team Providers Care Dimensional Engineer Name Role Phone Carlo Santana MD Primary Care Provider +1- [phone] Reason for Visit * Reason Comments Med Refill Encounter Details Date Type Department Care Team (Late Contact Info) Description 10/28/2022 Refill [facility] MED & PEDS 505 [place] [address] Carlo Santana MD 505 [place] [address] Muscle spasm Social History Tobacco Use Types [...] Upcoming Encounters Date Type Department Care Team ([facility] Contact Info) Description 07/12/2024 9:30 AM EDT Clinical Support [facility] MED & PEDS [address] [place] [address] Fariba Gandhi, HUGO 505 [place] [address] documented as of this encounter Visit Diagnoses Diagnosis Muscle spasm Spasm of muscle documented in this encounter Additional Health Concerns Assessment Noted Time PHQ-9 Depression Total Score: 3 06/04/19 23 3:42 PM EDT documented as of this encounter Care Teams Dimensional Engineer Relationship Specialty Start Date End Date Carlo Santana MD 505 [place] [address] PCP - General Internal Medicine 12/28/17 documented as of this encounter
--- OUTSIDE RECORDS SUMMARY | 2024-07-11 14:54 | XMS_ITS | Encounter Summary ---
Author Organization [employer] Address [address] [place] [address] [place] [address] Care Team Providers Care Store Sales Consultant Name Role Phone Carlo Santana MD Primary Care Provider +1- [phone] Reason for Visit * Reason Onset Date Comments Med Refill 10/28/2022 Encounter Details Date Type Department Care Team ([facility] st Contact Info) Description 10/28/2022 Telephone [facility] MED & PEDS 505 [place] [address] Carlo Santana MD 505 [place] [address] Med Refill Social History Tobacco Use Types [...] Description 07/12/2024 9:30 AM EDT Clinical Support [facility] MED & PEDS 505 [place] [address] Fariba Gandhi, RN 505 [place], [place] [phone] documented as of this encounter Visit Diagnoses Not on filedocumented in this encounter Additional Health Concerns Assessment Noted Time PHQ-9 Depression Total Score: 3 06/04/19 23 3:42 PM EDT documented as of this encounter Care Teams Store Sales Consultant Relationship Specialty Start Date End Date Carlo Santana MD 505 [place] [address] PCP - General Internal Medicine 12/28/17 documented as of this encounter
--- OUTSIDE RECORDS SUMMARY | 2024-07-11 14:54 | XMS_ITS | Encounter Summary ---
Author Organization [employer] Address [address] [facility] 7 [place] [address] Care Team Providers Care Title Curative Specialist Name Role Phone Carlo Santana MD Primary Care Provider +1- [phone] Reason for Visit * Reason Onset Date Comments Call Back Request 10/13/2023 Encounter Details Date Type Department Care Team ([facility] st Contact Info) Description 10/13/2023 Telephone [facility] 230 [place] [address] Carlo Santana MD [address] [facility] [address] [place], [place] [phone] Call Back Request Social History Tobacco Use [...] pt requesting a call back in regards RELAYS DRAFTSPERSON appt. No further details provided. documented in this encounter Plan of Treatment Upcoming Encounters Date Type Department Care Team (Late st Contact Info) Description 07/12/2024 9:30 AM EDT Clinical Support [facility] MED & [facility]EDS 505 [place] [address] aFriba Gandhi, HUGO 505 [place] [address] documented as of this encounter Visit Diagnoses Not on filedocumented in this encounter Additional Health Concerns Assessment Noted Time PHQ-9 Depression Total Score: 3 06/04/19 23 3:42 PM EDT documented as of this encounter Care Teams Title Curative Specialist Relationship Specialty Start Date End Date Carlo Santana MD 505 [place] [address] PCP - General Internal Medicine 12/28/17 documented as of this encounter
--- OUTSIDE RECORDS SUMMARY | 2024-07-11 14:54 | XMS_ITS | Encounter Summary ---
Author Organization [employer] Address [address] [facility] 7 [place] [address] Care Team Providers Care Teen Counselor Name Role Phone Carlo Santana MD Primary Care Provider +1- [phone] Encounter Details Date Type Department Care Team (Late st Contact Info) Description 07/10/2024 Patient Outreach [facility] MEDICINE 230 [place] [address] Carlo Santana MD 505 [place], [place] [phone] Social History Tobacco Use Types Packs/Day Years [...] Description 07/12/2024 9:30 AM EDT Clinical Support [facility] MED & PEDS 505 [place] [address] Fariba Gandhi, HUGO 505 [place] [address] documented as of this encounter Visit Diagnoses Not on filedocumented in this encounter Additional Health Concerns Assessment Noted Time PHQ-9 Depression Total Score: 15 024 11:50 AM EST documented as of this encounter Care Teams Teen Counselor Relationship Specialty Start Date End Date Carlo Santana MD 505 [place] [address] PCP - General Internal Medicine 12/28/17 documented as of this encounter
--- OUTSIDE RECORDS SUMMARY | 2024-07-11 14:54 | XMS_ITS | Encounter Summary ---
Author Organization [employer] Address [address] [facility] 7 [place] [address] Care Team Providers Care College Or University Faculty Member Name Role Phone Carlo Santana MD Primary Care Provider +1- [phone] Reason for Visit * Reason Comments Med Refill Encounter Details Date Type Department Care Team ([facility] st Contact Info) Description 11/02/2023 Refill [facility] MEDICINE 230 [place] [address] Carlo Santana MD 505 [place], [place] [phone] Chronic left-sided low back pain with left-sided [...] Upcoming Encounters Date Type Department Care Team ([facility] st Contact Info) Description 07/12/2024 9:30 AM EDT Clinical Support [facility] MED & PEDS 505 [place] [address] Fariba Gandhi RN 505 [place] [address] documented as of this encounter Visit Diagnoses Diagnosis Chronic left-sided low back pain with left-sided sciatica documented in this encounter Additional Health Concerns Assessment Noted Time PHQ-9 Depression Total Score: 3 06/04/19 23 3:42 PM EDT documented as of this encounter Care Teams College Or University Faculty Member Relationship Specialty Start Date End Date Carlo Santana MD 505 [place] [address] PCP - General Internal Medicine 12/28/17 documented as of this encounter
--- OUTSIDE RECORDS SUMMARY | 2024-07-11 14:54 | XMS_ITS | Encounter Summary ---
Author Organization [employer] Address [address] [facility] 7 [place] [address] Care Team Providers Care Filleter Name Role Phone Carlo Santana MD Primary Care Provider +1- [phone] Encounter Details Date Type Department Care Team (Late st Contact Info) Description 07/09/2024 Patient Outreach [facility] MEDICINE 230 [place] [address] Carlo Santana MD 505 [place], [place] [phone] Social History Tobacco Use Types Packs/Day Years [...] [facility] st Contact Info) Description 07/12/2024 9:30 AM EDT Clinical Support [facility] MED & PEDS 505 [place] [address] Fariba Gandhi, HUGO 505 [place] [address] documented as of this encounter Visit Diagnoses Not on filedocumented in this encounter Additional Health Concerns Assessment Noted Time PHQ-9 Depression Total Score: 15 024 11:50 AM EST documented as of this encounter Care Teams Filleter Relationship Specialty Start Date End Date Carlo Santana MD 505 [place] [address] PCP - General Internal Medicine 12/28/17 documented as of this encounter
--- OUTSIDE RECORDS SUMMARY | 2024-07-11 14:54 | XMS_ITS | Encounter Summary ---
Author Organization [employer] Address 75 [facility] 7 [place] [address] Care Team Providers Care Recreation Clerk Name Role Phone Carlo Santana MD Primary Care Provider +1- [phone] Encounter Details Date Type Department Care Team (Late st Contact Info) Description 04/21/2023 Telephone [facility] MEDICINE 230 [place] [address] Carlo Santana MD [address] [facility] [address] [address] [address] [place], [place] [phone] Social History Tobacco Use Types Packs/Day Years [...] Upcoming Encounters Date Type Department Care Team ([facility] st Contact Info) Description 07/12/2024 9:30 AM EDT Clinical Support [facility] MED & PEDS 505 [place] [address] Fariba Gandhi, RN 505 [place] [address] documented as of this encounter Visit Diagnoses Not on filedocumented in this encounter Additional Health Concerns Assessment Noted Time PHQ-9 Depression Total Score: 3 06/04/19 23 3:42 PM EDT documented as of this encounter Care Teams Recreation Clerk Relationship Specialty Start Date End Date Carlo Santana MD 505 [place] [address] PCP - General Internal Medicine 12/28/17 documented as of this encounter
--- OUTSIDE RECORDS SUMMARY | 2024-07-11 14:54 | XMS_ITS | Encounter Summary ---
Author Organization [employer] Address 75 [facility] 7 [place] [address] Care Team Providers Care Brand Leader Name Role Phone Carlo Santana MD Primary Care Provider +1- [phone] Reason for Visit * Reason Onset Date Comments Med Refill 11/02/2023 Encounter Details Date Type Department Care Team (Late st Contact Info) Description 11/02/2023 Telephone [facility] MEDICINE 230 [place] [address] Carlo Santana MD 505 [place], [place] [phone] Med Refill Social History Tobacco Use Types [...] script for oxycodone to be sent to [facility] on file. * Telephone Encounter - Quan Mena - 11/02/2023 9:15 AM EDT Tc from pt stating oxyCODONE-acetaminophen (Percocet) 7.5-325 MG tablet was sent to the wrong pharmacy and was advised by the pharmacy to contact pcp to have script transferred to the right pharmacy.Pt is requesting to have script sent to [facility]. If any questions you can contact pt at [phone]. documented in this encounter Plan of Treatment Upcoming Encounters Date Type Department Care Team (Late st Contact Info) Description 07/12/2024 9:30 AM EDT Clinical Support [facility] MED & PEDS 505 [place] [address] Fariba Gandhi, RN 505 [place] [address] documented as of this encounter Visit Diagnoses Not on filedocumented in this encounter Additional Health Concerns Assessment Noted Time PHQ-9 Depression Total Score: 3 06/04/19 23 3:42 PM EDT documented as of this encounter Care Teams Brand Leader Relationship Specialty Start Date End Date Carlo Santana MD [address] [place] [address] PCP - General Internal Medicine 12/28/17 documented as of this encounter
--- OUTSIDE RECORDS SUMMARY | 2024-07-11 14:54 | XMS_ITS | Encounter Summary ---
Author Organization [employer] Address 75 [facility] 7 [place] [address] Care Team Providers Care Natural Developer Name Role Phone Carlo Santana MD Primary Care Provider +1- [phone] Reason for Visit * Reason Onset Date Comments Prior Authorization 07/10/2024 Encounter Details Date Type Department Care Team ([facility] st Contact Info) Description 07/10/[address] [facility] MEDICINE 230 [place] [address] Carlo Santana MD 505 [place], [place] [phone] Prior Authorization Social History Tobacco Use Types [...] Telephone Encounter - Kallie Mayorga LPN - 07/10/2024 2:24 PM EDT PER MADDISON:TC to pt regarding message below. Pt stated she was told by [facility] pharm. She can't shredder picker her Oxycodone 10mg. [facility] pt [facility] been using 2 pharmacies, [facility] and [facility], ptto use only 1 pharmacy d/t med being a controlled substance. Oxycodone will be ready for a pickup at 3pm today. TC to pt, pt notified, verbalized understanding. stated she will use [facility] pharmacy. TC from pt requesting a PA for med oxyCODONE (Roxicodone) 10 MG immediate release tablet. Contact pt at [phone] * Telephone Encounter - Grabiel Taylor - 07/10/2024 8:21 AM EDT TC from pt requesting a PA for med oxyCODONE (Roxicodone) 10 MG immediate release tablet. Contact pt at [phone] documented in this encounter Plan of Treatment Upcoming Encounters Date Type Department Care Team (Late st Contact Info) Description 07/12/2024 9:30 AM EDT Clinical Support [facility] MED & PEDS 505 [place] [address] Madd[place] Gandhi, RN 505 [place] [address] documented as of this encounter Visit Diagnoses Not on filedocumented in this encounter Additional Health Concerns Assessment Noted Time PHQ-9 Depression Total Score: 15 024 11:50 AM EST documented as of this encounter Care Teams Natural Developer Relationship Specialty Start Date End Date Carlo Santana MD 505 [place] [address] PCP - General Internal Medicine 12/28/17 documented as of this encounter
--- OUTSIDE RECORDS SUMMARY | 2024-07-11 14:54 | XMS_ITS | Encounter Summary ---
Author Organization [employer] Address 75 [facility] 7 [place] [address] Care Team Providers Care Nuclear Medicine Physician Name Role Phone Carlo Santana MD Primary Care Provider +1- [phone] Reason for Visit * Reason Onset Date Comments Med Refill 10/18/2023 Encounter Details Date Type Department Care Team (Late st Contact Info) Description 10/18/2023 Telephone [facility] MEDICINE 230 [place] [address] Carlo Santana MD 505 [place], [place] [phone] Med Refill Social History Tobacco Use Types [...] 1 MG tablet To be sent to: [facility] documented in this encounter Plan of Treatment Upcoming Encounters Date Type Department Care Team (Late st Contact Info) Description 07/12/2024 9:30 AM EDT Clinical Support [facility] MED & PEDS 505 [place] [address] Fariba Gandhi, RN 505 [place] [address] documented as of this encounter Visit Diagnoses Not on filedocumented in this encounter Additional Health Concerns Assessment Noted Time PHQ-9 Depression Total Score: 3 06/04/19 23 3:42 PM EDT documented as of this encounter Care Teams Nuclear Medicine Physician Relationship Specialty Start Date End Date Carlo Santana MD 505 [place] [address] PCP - General Internal Medicine 12/28/17 documented as of this encounter
--- OUTSIDE RECORDS SUMMARY | 2024-07-11 14:54 | XMS_ITS | Encounter Summary ---
Author Organization [employer] Address 75 [facility] 7 [place] [address] Care Team Providers Care Pharmacy Sales Representative Name Role Phone Carlo Santana MD Primary Care Provider +1- [phone] Reason for Visit * Reason Onset Date Comments Medication Question 04/25/2024 Encounter Details Date Type Department Care Team ([facility] st Contact Info) Description 04/25/2024 Telephone [facility] MEDICINE 230 [place] [address] Carlo Santana MD [address] [place], [place] [phone] Medication Question Social History Tobacco Use Types [...] any questions you can contact pt at [phone]. documented in this encounter Plan of Treatment Upcoming Encounters Date Type Department Care Team ([facility] st Contact Info) Description 07/12/2024 9:30 AM EDT Clinical Support [facility] MED & PEDS 505 [place] [address] Fariba Gandhi, HUGO 505 [place] [address] documented as of this encounter Visit Diagnoses Not on filedocumented in this encounter Additional Health Concerns Assessment Noted Time PHQ-9 Depression Total Score: 15 024 11:50 AM EST documented as of this encounter Care Teams Pharmacy Sales Representative Relationship Specialty Start Date End Date Carlo Santana MD 505 [place] [address] PCP - General Internal Medicine 12/28/17 documented as of this encounter
--- OUTSIDE RECORDS SUMMARY | 2024-07-11 14:54 | XMS_ITS | Encounter Summary ---
Author Organization [employer] Address 75 [facility] 7 [place] [address] Care Team Providers Care Lead Android Developer Name Role Phone Carlo Santana MD Primary Care Provider +1- [phone] Reason for Visit * Reason Onset Date Comments Call Back Request 07/10/2024 Encounter Details Date Type Department Care Team ([facility] st Contact Info) Description 07/10/2024 Telephone [facility] MEDICINE 230 [place] [address] Carlo Santana MD [address] [place], [place] [phone] Call Back Request Social History Tobacco Use [...] Telephone Encounter - Grabiel Taylor - 07/10/2024 10:59 AM EDT Tc from pt requesting a call back from Fariba regarding her appt, Contact pt at [phone] documented in this encounter Plan of Treatment Upcoming Encounters Date Type Department Care Team ([facility] st Contact Info) Description 07/12/2024 9:30 AM EDT Clinical Support [facility] MED & PEDS 505 [place] [address] Fariba Gandhi RN 505 [place] [address] documented as of this encounter Visit Diagnoses Not on filedocumented in this encounter Additional Health Concerns Assessment Noted Time PHQ-9 Depression Total Score: 15 024 11:50 AM EST documented as of this encounter Care Teams Lead Android Developer Relationship Specialty Start Date End Date Carlo Santana MD 505 [place] [address] PCP - General Internal Medicine 12/28/17 documented as of this encounter
--- OUTSIDE RECORDS SUMMARY | 2024-07-11 14:54 | XMS_ITS | Encounter Summary ---
Author Organization [employer] Address [address] [place] [address] 7 [place] [address] Care Team Providers Care Coldfusion Name Role Phone Carlo Santana MD Primary Care Provider +1- [phone] Encounter Details Date Type Department Care Team ([facility] st Contact Info) Description 11/07/[address] [facility] CHC MED & PEDS 505 [place], [place] [address] Carlo Santana MD 505 [place] [address] Muscle spasm Social History Tobacco Use Types [...] [facility] 505 [place] [address] Fariba Gandhi, HUGO 505 [place] [address] documented as of this encounter Visit Diagnoses Diagnosis Muscle spasm Spasm of muscle documented in this encounter Additional Health Concerns Assessment Noted Time PHQ-9 Depression Total Score: 3 06/04/19 23 3:42 PM EDT documented as of this encounter Care Teams Coldfusion Relationship Specialty Start Date End Date Carlo Santana MD 505 [place] [address] PCP - General Internal Medicine 12/28/17 documented as of this encounter
--- OUTSIDE RECORDS SUMMARY | 2024-07-11 14:54 | XMS_ITS | Encounter Summary ---
Author Organization [employer] Address 75 [facility] 7 [place] [address] Care Team Providers Care Sheriffs Name Role Phone Carlo Santana MD Primary Care Provider +1- [phone] Reason for Visit * Reason Onset Date Comments Med Refill 04/21/2023 Encounter Details Date Type Department Care Team (Late st Contact Info) Description 04/21/2023 Refill [facility] MEDICINE 230 [place] [address] Carlo Santana MD 505 [place], [place] [phone] Low back pain radiating down leg Social [...] [facility] MED & PEDS 505 [place] [address] Fariba Gandhi RN 505 [place] [address] documented as of this encounter Visit Diagnoses Diagnosis Low back pain radiating down leg documented in this encounter Additional Health Concerns Assessment Noted Time PHQ-9 Depression Total Score: 3 06/04/19 23 3:42 PM EDT documented as of this encounter Care Teams Sheriffs Relationship Specialty Start Date End Date Carlo Santana MD 505 [place] [address] PCP - General Internal Medicine 12/28/17 documented as of this encounter
--- OUTSIDE RECORDS SUMMARY | 2024-07-11 14:54 | XMS_ITS | Encounter Summary ---
Author Organization [employer] Address [address] [place] [address] 7 [place] [address] Care Team Providers Care Frozen Foods Manager Name Role Phone Carlo Santana MD Primary Care Provider +1- [phone] Reason for Visit * Reason Onset Date Comments Nurse Triage 11/09/2023 Encounter Details Date Type Department Care Team ([facility] st Contact Info) Description 11/09/2023 Telephone [facility] CH[facility] MED & PEDS 505 [place] [address] Carlo Santana MD 505 [place] [address] Nurse Triage Social History Tobacco Use Types [...] 9:30 AM EDT Clinical Support [facility] MED & PEDS 505 [place] [address] Fariba Gandhi RN 505 [place] [address] documented as of this encounter Visit Diagnoses Not on filedocumented in this encounter Additional Health Concerns Assessment Noted Time PHQ-9 Depression Total Score: 3 06/04/19 23 3:42 PM EDT documented as of this encounter Care Teams Frozen Foods Manager Relationship Specialty Start Date End Date Carlo Santana MD [address] [place] [address] PCP - General Internal Medicine 12/28/17 documented as of this encounter
--- OUTSIDE RECORDS SUMMARY | 2024-07-11 14:54 | XMS_ITS | Encounter Summary ---
Author Organization [employer] Address [address] [place] [address] [place] [address] Care Team Providers Care Relay Shop Tester Name Role Phone Carlo Santana MD Primary Care Provider +1- [phone] Reason for Visit * Reason Onset Date Comments Appointment Request 05/04/2022 Encounter Details Date Type Department Care Team ([facility] Contact Info) Description 05/04/2022 Telephone [facility] CHC MED & PEDS 505 [place] [address] Carlo Santana MD 505 [place] [address] Appointment Request Social History Tobacco Use Types [...] done for the low back pain but [facility] advised to pt that she is not ableto make the appt , the provider has to make the appt for her. Please contact pt at [phone] documented in this encounter Plan of Treatment Upcoming Encounters Date Type Department Care Team (Late st Contact Info) Description 07/12/2024 9:30 AM EDT Clinical Support [facility] MED & PEDS 505 [place] [address] Fariba Gandhi, RN 505 [place] [address] documented as of this encounter Visit Diagnoses Not on filedocumented in this encounter Care Teams Relay Shop Tester Relationship Specialty Start Date End Date Carlo Santana MD 505 [place] [address] PCP - General Internal Medicine 12/28/17 documented as of this encounter
--- OUTSIDE RECORDS SUMMARY | 2024-07-11 14:54 | XMS_ITS | Encounter Summary ---
Author Organization [employer] Address 75 [facility] 7 [place] [address] Care Team Providers Care Stone Finisher Name Role Phone Carlo Santana MD Primary Care Provider +1- [phone] Reason for Visit * Reason Onset Date Comments Med Refill 11/01/2023 Encounter Details Date Type Department Care Team (Late st Contact Info) Description 11/01/2023 Telephone [facility] MEDICINE 230 [place] [address] Carlo Santana MD 505 [place], [place] [phone] Med Refill Social History Tobacco Use Types [...] 7.5-325 MG tablet To be sent to: [facility]/pharmacy #[id number] [place] - [address] [facility] documented in this encounter Plan of Treatment Upcoming Encounters Date Type Department Care Team (Late st Contact Info) Description 07/12/2024 9:30 AM EDT Clinical Support [facility] MED & PEDS 505 [place] [address] Fariba Gandhi, HUGO 505 [place] [address] documented as of this encounter Visit Diagnoses Not on filedocumented in this encounter Additional Health Concerns Assessment Noted Time PHQ-9 Depression Total Score: 3 06/04/19 23 3:42 PM EDT documented as of this encounter Care Teams Stone Finisher Relationship Specialty Start Date End Date Carlo Santana MD 505 [place] [address] PCP - General Internal Medicine 12/28/17 documented as of this encounter
--- OUTSIDE RECORDS SUMMARY | 2024-07-11 14:54 | XMS_ITS | Encounter Summary ---
Author Organization [employer] Address [address] [place] [address] 7 [place] [address] Care Team Providers Care Bacteriologist Medical Name Role Phone Carlo Santana MD Primary Care Provider +1- [phone] Reason for Visit * Reason Onset Date Comments Appointment Request 11/08/2023 Encounter Details Date Type Department Care Team ([facility] st Contact Info) Description 11/08/2023 Telephone [facility] MED & PEDS 505 [place] [address] Carlo Santana MD 505 [place] [address] Appointment Request Social History Tobacco Use Types [...] [facility] st Contact Info) Description 07/12/2024 9:30 AM EDT Clinical Support [facility] MED & PEDS 505 [place] [address] Fariba Gandhi RN 505 [place] [address] documented as of this encounter Visit Diagnoses Not on filedocumented in this encounter Additional Health Concerns Assessment Noted Time PHQ-9 Depression Total Score: 3 06/04/19 23 3:42 PM EDT documented as of this encounter Care Teams Bacteriologist Medical Relationship Specialty Start Date End Date Carlo Santana MD [address] [place] [address] PCP - General Internal Medicine 12/28/17 documented as of this encounter
--- OUTSIDE RECORDS SUMMARY | 2024-07-11 14:54 | XMS_ITS | Encounter Summary ---
Author Organization [employer] Address [address] [place] [address] 7 [place] [address] Care Team Providers Care Showroom Executive Director Name Role Phone Carlo Santana MD Primary Care Provider +1- [phone] Reason for Visit * Reason Onset Date Comments Med Refill 07/09/2024 Encounter Details Date Type Department Care Team ([facility] st Contact Info) Description 07/09/2024 Refill [facility] MED & PEDS 505 [place] [address] Carlo Santana MD 505 [place] [address] [place] (generalized anxiety disorder) Social History Tobacco [...] Telephone Encounter - Suyapa Santacruz - 07/09/2024 9:55 AM EDT TC from pt requesting medication refill. Medications needing refill : clonazePAM (KlonoPIN) 1 MG tablet To be sent to: [facility]/pharmacy #[id number] LEATHA [place] - [id number] [facility] documented in this encounter Plan of Treatment Upcoming Encounters Date Type Department Care Team ([facility] st Contact Info) Description 07/12/2024 9:30 AM EDT Clinical Support [facility] MED & PEDS 505 [place] [address] Fariba Gandhi, HUGO 505 [place] [address] documented as of this encounter Visit Diagnoses Diagnosis VALENT[place] (generalized anxiety disorder) Generalized anxiety disorder documented in this encounter Additional Health Concerns Assessment Noted Time PHQ-9 Depression Total Score: 15 024 11:50 AM EST documented as of this encounter Care Teams Showroom Executive Director Relationship Specialty Start Date End Date Carlo Santana MD [address] [place] [address] PCP - General Internal Medicine 12/28/17 documented as of this encounter
--- OUTSIDE RECORDS SUMMARY | 2024-07-11 14:54 | XMS_ITS | Encounter Summary ---
Author Organization [employer] Address [address] [place] [address] 7 [place] [address] Care Team Providers Care Regulator Mechanic Name Role Phone Carlo Santana MD Primary Care Provider +1- [phone] Reason for Visit * Reason Onset Date Comments Durable Medical Equipment 12/23/2023 Encounter Details Date Type Department Care Team ([facility] st Contact Info) Description 12/23/2023 Telephone [facility] MED & PEDS 505 [place] [address] Carlo Santana MD 505 [place] [address] Durable Medical Equipment Social History Tobacco Use [...] small If any questions contact pt at [phone] documented in this encounter Plan of Treatment Upcoming Encounters Date Type Department Care Team ([facility] st Contact Info) Description 07/12/2024 9:30 AM EDT Clinical Support [facility] CHC MED & PEDS [address] [place] [address] Fariba Gandhi, HUGO 505 [place] [address] documented as of this encounter Visit Diagnoses Diagnosis Chronic left-sided low back pain with left-sided sciatica documented in this encounter Additional Health Concerns Assessment Noted Time PHQ-9 Depression Total Score: 3 06/04/19 23 3:42 PM EDT documented as of this encounter Care Teams Regulator Mechanic Relationship Specialty Start Date End Date Carlo Santana MD 505 [place] [address] PCP - General Internal Medicine 12/28/17 documented as of this encounter
--- OUTSIDE RECORDS SUMMARY | 2024-07-11 14:54 | XMS_ITS | Encounter Summary ---
Author Organization [employer] Address 75 [facility] 7 [place] [address] Care Team Providers Care Mathematics Professor Name Role Phone Carlo Santana MD Primary Care Provider +1- [phone] Reason for Visit * Reason Onset Date Comments Nurse Triage 10/31/2023 Encounter Details Date Type Department Care Team (Late st Contact Info) Description 10/31/2023 Telephone [facility] MEDICINE 230 [place] [address] Carlo Santana MD [address] [facility] [address] [place], [place] [phone] Nurse Triage Social History Tobacco Use Types [...] need for follow-up with a provider. Suggested [facility] WIC but pt wanted to see PCP for stronger lidocaine patches for her back. Pt reports pain as a constant 7-8/10 and can barely move. Reiterated that pt should be seen for the fall to be properly evaluated and there was not same daycare appt at [facility]. Pt declined [place] and ended call. * [...] [facility] 505 [place] [address] Fariba Gandhi RN 505 [place] [address] documented as of this encounter Visit Diagnoses Not on filedocumented in this encounter Additional Health Concerns Assessment Noted Time PHQ-9 Depression Total Score: 3 06/04/19 23 3:42 PM EDT documented as of this encounter Care Teams Mathematics Professor Relationship Specialty Start Date End Date Carlo Santana MD 505 [place] [address] PCP - General Internal Medicine 12/28/17 documented as of this encounter
--- OUTSIDE RECORDS SUMMARY | 2024-07-11 14:55 | XMS_ITS | Encounter Summary ---
Author Organization [employer] Address [address] [place] [address] 7 [place] [address] Care Team Providers Care Outdoor Education Teacher Name Role Phone Carlo Santana MD Primary Care Provider +1- [phone] Reason for Visit * Reason Comments Med Refill Encounter Details Date Type Department Care Team ([facility] Contact Info) Description 12/19/2023 Refill [facility] MED & PEDS 505 [place] [address] Carlo Santana MD 505 [place] [address] Diarrhea, unspecified type Social History Tobacco Use [...] [facility] MED & [facility]EDS 505 [place] [address] Fariba Gandhi, HUGO 505 [place] [address] documented as of this encounter Visit Diagnoses Diagnosis Diarrhea, unspecified type documented in this encounter Additional Health Concerns Assessment Noted Time PHQ-9 Depression Total Score: 3 06/04/19 23 3:42 PM EDT documented as of this encounter Care Teams Outdoor Education Teacher Relationship Specialty Start Date End Date Carlo Santana MD 505 [place] [address] PCP - General Internal Medicine 12/28/17 documented as of this encounter
--- OUTSIDE RECORDS SUMMARY | 2024-07-11 14:55 | XMS_ITS | Encounter Summary ---
Author Organization [employer] Address [address] [place] [address] 7 [place] [address] Care Team Providers Care Director Of Development And Marketing Name Role Phone Carlo Santana MD Primary Care Provider +1- [phone] Reason for Visit * Reason Comments Med Refill Encounter Details Date Type Department Care Team ([facility] Contact Info) Description 06/20/2022 Refill [facility] MED & PEDS 505 [place] [address] Servando Howard MD 505 [place] [address] Social History Tobacco Use Types Packs/Day Years [...] [facility] 505 [place] [address] Fariba Gandhi, HUGO 505 [place] [address] documented as of this encounter Visit Diagnoses Not on filedocumented in this encounter Additional Health Concerns Assessment Noted Time PHQ-9 Depression Total Score: 3 06/04/19 23 3:42 PM EDT documented as of this encounter Care Teams Director Of Development And Marketing Relationship Specialty Start Date End Date Carlo Santana MD 505 [place] [address] PCP - General Internal Medicine 12/28/17 documented as of this encounter
--- OUTSIDE RECORDS SUMMARY | 2024-07-11 14:55 | XMS_ITS | Encounter Summary ---
Author Organization [employer] Address [address] [place] [address] 7 [place] [address] Care Team Providers Care Jetting Machine Operator Name Role Phone Carlo Santana MD Primary Care Provider +1- [phone] Reason for Visit * Reason Onset Date Comments Med Refill 10/18/2022 Encounter Details Date Type Department Care Team ([facility] st Contact Info) Description 10/18/2022 Telephone [facility] MED & PEDS 505 [place] [address] Carlo Santana MD 505 [place] [address] Med Refill Social History Tobacco Use Types [...] requesting status on script. Please contact at [phone] * Telephone Encounter - Avelina Brown - 10/18/2022 8:27 AM EDT Tc from patient requesting a med refill for medication oxycodone 5 mg. Please send to [facility]/pharmacy #[id number] - [place]HA PHILLIPS - [phone] Santana documented in this encounter Plan of Treatment Upcoming Encounters Date Type Department Care Team ([facility] st Contact Info) Description 07/12/2024 9:30 AM EDT Clinical Support [facility] MED & PEDS 505 [place] [address] Fariba Gandhi, RN 505 [place] [address] documented as of this encounter Visit Diagnoses Diagnosis Low back pain radiating down leg documented in this encounter Additional Health Concerns Assessment Noted Time PHQ-9 Depression Total Score: 3 06/04/19 23 3:42 PM EDT documented as of this encounter Care Teams Jetting Machine Operator Relationship Specialty Start Date End Date Carlo Santana MD 505 [place] [address] PCP - General Internal Medicine 12/28/17 documented as of this encounter
--- OUTSIDE RECORDS SUMMARY | 2024-07-11 14:55 | XMS_ITS | Encounter Summary ---
Author Organization [employer] Address 75 [facility] 7 [place] [address] Care Team Providers Care Upsetting Machine Operator Name Role Phone Carlo Santana MD Primary Care Provider +1- [phone] Reason for Visit * Reason Onset Date Comments Results 12/19/2023 Encounter Details Date Type Department Care Team (Late st Contact Info) Description 12/19/2023 Telephone [facility] MEDICINE [address] [place] [address] Carlo Santana MD [address] [facility] [address] [place], [place] [phone] Results Social History Tobacco Use Types Packs/Day [...] results: Labs Date when done: 12/15 Facility: [facility] documented in this encounter Plan of Treatment Upcoming Encounters Date Type Department Care Team (Late st Contact Info) Description 07/12/2024 9:30 AM EDT Clinical Support [facility] MED & PEDS 505 [place] [address] Fariba Gandhi RN 505 [place] [address] documented as of this encounter Visit Diagnoses Not on filedocumented in this encounter Additional Health Concerns Assessment Noted Time PHQ-9 Depression Total Score: 3 06/04/19 23 3:42 PM EDT documented as of this encounter Care Teams Upsetting Machine Operator Relationship Specialty Start Date End Date Carlo Santana MD 505 [place] [address] PCP - General Internal Medicine 12/28/17 documented as of this encounter
--- OUTSIDE RECORDS SUMMARY | 2024-07-11 14:55 | XMS_ITS | Encounter Summary ---
Author Organization [employer] Address [address] [place] [address] Care Team Providers Care Embroidery Designer Name Role Phone Carlo Santana MD Primary Care Provider +1- [phone] Reason for Referral * Imaging (Routine) - Canceled Specialty Diagnoses / Procedures Referred By Lisseth weaver Referred To Contact Radiology Diagnoses Transaminitis Procedures US Abdomen Complete Carlo Santana MD [address] [place] [address] Phone: tel: fax: Referral ID Status Reason Start Date Expiration Date V isits Requested Visits Authorized [id number] Canceled 04/11/2024 04/11/2025 1 1 Encounter Details Date Type Department Care Team ([facility] st Contact Info) Description 04/11/2024 Orders Only [facility] MED & PEDS 505 [place] [address] Carlo Santana MD [address] [place] [address] Normocytic anemia (Primary Dx); Transaminitis Social History [...] [facility] MED & PEDS 505 [place] [address] Fariba Gandhi, HUGO 505 [place] [address] Scheduled Orders Name Type Priority Associated Diagnoses [...] AM EST) T Spot TB Negative Negative [facility] Comment:A negative test resu lt [...] as aquantitative test. TS PANEL A 0 [facility] TS PANEL B 1 [facility] Negative Control Passed [facility] Positive Control Passed [facility] Comment:For additional infor matpaulie, please refer [email or web address]/[email or web address](This link is being provided for informational/educational purposes only.)THIS TEST WAS PERFORMED AT:[id number] [place] [id number] KOENIG MD,PHD 04/11/2024 11:2 0 AM EST 04/11/2024 2:39 PM EST Carlo Santana MD LAB BLOOD ORDERABLES Final Result [facility] [address] [place] [address] [phone] documented in this encounter Visit Diagnoses Diagnosis Normocytic anemia- Primary Unspecified anemia Transaminitis Nonspecific elevation of levels of transaminase or lactic acid dehydrogenase (LDH) documented in this encounter Additional Health Concerns Assessment Noted Time PHQ-9 Depression Total Score: 15 024 11:50 AM EST documented as of this encounter Care Teams Embroidery Designer Relationship Specialty Start Date End Date Carlo Santana MD [address] [place] [address] PCP - General Internal Medicine 12/28/17 documented as of this encounter
--- OUTSIDE RECORDS SUMMARY | 2024-07-11 14:55 | XMS_ITS | Encounter Summary ---
Author Organization [employer] Address [address] [place] [address] 7 [place] [address] Care Team Providers Care Tubing Mill Setter Name Role Phone Carlo Santana MD Primary Care Provider +1- [phone] Encounter Details Date Type Department Care Team ([facility] st Contact Info) Description 07/10/2024 Telephone [facility] CH[facility] MED & PEDS 505 [place] [address] Fariba Gandhi, HUGO 505 [place] [address] Social History Tobacco Use Types Packs/Day Years [...] Telephone Encounter - Fariba Gandhi RN - 07/10/2024 11:43 AM EDT TC to pt regarding message below. Pt stated she was told by [facility]. 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 [facility] Per [facility] pt has been using 2 pharmacies, [facility] and [facility], pt to use only1 pharmacy d/t med being a controlled substance. Oxycodone will be ready for a pickup at 3pm today.TC to pt, pt notified, verbalized understanding. stated she will use [facility] pharmacy. documented in this encounter Plan of Treatment Upcoming Encounters Date Type Department Care Team (Late st Contact Info) Description 07/12/2024 9:30 AM EDT Clinical Support [facility] MED & PEDS 505 [place] [address] Fariba Gandhi RN 505 [place] [address] documented as of this encounter Visit Diagnoses Not on filedocumented in this encounter Additional Health Concerns Assessment Noted Time PHQ-9 Depression Total Score: 15 024 11:50 AM EST documented as of this encounter Care Teams Tubing Mill Setter Relationship Specialty Start Date End Date Carlo Santana MD [address] [place] [address] PCP - General Internal Medicine 12/28/17 documented as of this encounter
--- OUTSIDE RECORDS SUMMARY | 2024-07-11 14:55 | XMS_ITS | Encounter Summary ---
Author Organization [employer] Address 75 [facility] 7 [place] [address] Care Team Providers Care Seo Associate Name Role Phone Carlo Santana MD Primary Care Provider +1- [phone] Reason for Visit * Reason Onset Date Comments Medication Question 04/17/2024 Med Refill 04/17/2024 Encounter Details Date Type Department Care Team ([facility] st Contact Info) Description 04/17/2024 Telephone [facility] MEDICINE [address] [place] [address] Carlo Santana MD [address] [facility] [address] [place], [place] [phone] Medication Question; Med Refill Social History Tobacco [...] only has 2 left. Contact pt at [phone] documented in this encounter Plan of Treatment Upcoming Encounters Date Type Department Care Team ([facility] st Contact Info) Description 07/12/2024 9:30 AM EDT Clinical Support [facility] CHC MED & PEDS 505 [place] [address] Fariba Gandhi RN 505 [place] [address] documented as of this encounter Visit Diagnoses Not on filedocumented in this encounter Additional Health Concerns Assessment Noted Time PHQ-9 Depression Total Score: 15 024 11:50 AM EST documented as of this encounter Care Teams Seo Associate Relationship Specialty Start Date End Date Carlo Santana MD 505 [place] [address] PCP - General Internal Medicine 12/28/17 documented as of this encounter
--- OUTSIDE RECORDS SUMMARY | 2024-07-11 14:55 | XMS_ITS | Encounter Summary ---
Author Organization [employer] Address 75 [facility] 7t [place] [address] Care Team Providers Care Study Director Name Role Phone Carlo Santana MD Primary Care Provider +1- [phone] Encounter Details Date Type Department Care Team (Late st Contact Info) Description 12/20/2023 Orders Only [facility] 230 [place] [address] Carlo Santana MD [address] [facility] [address] [place], [place] [phone] Hypoproteinemia (CMS/HCC) (Primary Dx) Social History Tobacco [...] [facility] 505 [place] [address] Fariba Gandhi, HUGO 505 [place] [address] documented as of this encounter Visit Diagnoses Diagnosis Hypoproteinemia (CMS/HCC)- Primary Other disorders of plasma protein metabolism documented in this encounter Additional Health Concerns Assessment Noted Time PHQ-9 Depression Total Score: 3 06/04/19 23 3:42 PM EDT documented as of this encounter Care Teams Study Director Relationship Specialty Start Date End Date Carlo Santana MD 505 [place] [address] PCP - General Internal Medicine 12/28/17 documented as of this encounter
--- OUTSIDE RECORDS SUMMARY | 2024-07-11 14:55 | XMS_ITS | Encounter Summary ---
Author Organization [employer] Address [address] [place] [address] 7 [place] [address] Care Team Providers Care Golf Ball Trimmer Name Role Phone Carlo Santana MD Primary Care Provider +1- [phone] Encounter Details Date Type Department Care Team ([facility] st Contact Info) Description 03/05/2024 Orders Only [facility] CHC MED & PEDS 505 [place], [place] [phone] Carlo Santana MD 505 [place] [address] Social History Tobacco Use Types Packs/Day Years [...] Description 07/12/2024 9:30 AM EDT Clinical Support [facility] MED & PEDS 505 [place] [address] Fariba Gandhi, HUGO 505 [place] [address] documented as of this encounter Visit Diagnoses Not on filedocumented in this encounter Additional Health Concerns Assessment Noted Time PHQ-9 Depression Total Score: 15 024 11:50 AM EST documented as of this encounter Care Teams Golf Ball Trimmer Relationship Specialty Start Date End Date Carlo Santana MD 505 [place] [address] PCP - General Internal Medicine 12/28/17 documented as of this encounter
--- OUTSIDE RECORDS SUMMARY | 2024-07-11 14:55 | XMS_ITS | Encounter Summary ---
Author Organization [employer] Address 75 [facility] 7 [place] [address] Care Team Providers Care Scrap Baler Name Role Phone Carlo Santana MD Primary Care Provider +1- [phone] Reason for Visit * Reason Onset Date Comments Call Back Request 06/09/2023 Encounter Details Date Type Department Care Team ([facility] st Contact Info) Description 06/09/2023 Telephone [facility] MEDICINE 230 [place] [address] Carlo Santana MD [address] [facility] [address] [place], [place] [phone] Call Back Request Social History Tobacco Use [...] [facility] MED & PEDS 505 [place] [address] Fariba Gandhi, HUGO 505 [place] [address] documented as of this encounter Visit Diagnoses Not on filedocumented in this encounter Additional Health Concerns Assessment Noted Time PHQ-9 Depression Total Score: 3 06/04/19 23 3:42 PM EDT documented as of this encounter Care Teams Scrap Baler Relationship Specialty Start Date End Date Carlo Santana MD 505 [place] [address] PCP - General Internal Medicine 12/28/17 documented as of this encounter
--- OUTSIDE RECORDS SUMMARY | 2024-07-11 14:55 | XMS_ITS | Encounter Summary ---
Author Organization [employer] Address 75 [facility] 7 [place] [address] Care Team Providers Care Senior Physical Therapist Name Role Phone Carlo Santana MD Primary Care Provider +1- [phone] Reason for Visit * Reason Onset Date Comments Medication Question 05/06/2023 Encounter Details Date Type Department Care Team ([facility] st Contact Info) Description 05/06/2023 Telephone [facility] MEDICINE 230 [place] [address] Carlo Santana MD [address] [facility] [address] [place], [place] [phone] Medication Question Social History Tobacco Use Types [...] [facility] MED & PEDS 505 [place] [address] Fariba Gandhi, HUGO 505 [place] [address] documented as of this encounter Visit Diagnoses Not on filedocumented in this encounter Additional Health Concerns Assessment Noted Time PHQ-9 Depression Total Score: 3 06/04/19 23 3:42 PM EDT documented as of this encounter Care Teams Senior Physical Therapist Relationship Specialty Start Date End Date Carlo Santana MD 505 [place] [address] PCP - General Internal Medicine 12/28/17 documented as of this encounter
--- OUTSIDE RECORDS SUMMARY | 2024-07-11 14:55 | XMS_ITS | Encounter Summary ---
Author Organization [employer] Address 75 [facility] 7 [place] [address] Care Team Providers Care Clinical Editor Name Role Phone Carlo Santana MD Primary Care Provider +1- [phone] Reason for Visit * Reason Comments Med Refill Encounter Details Date Type Department Care Team ([facility] st Contact Info) Description 06/20/2022 Refill [facility] MEDICINE [address] [place] [address] Carlo Santana MD 505 [place], [place] [phone] Chronic left-sided low back pain with left-sided [...] Description 07/12/2024 9:30 AM EDT Clinical Support [facility] MED & PEDS 505 [place] [address] Fariba Gandhi, RN 505 [place] [address] documented as of this encounter Visit Diagnoses Diagnosis Chronic left-sided low back pain with left-sided sciatica documented in this encounter Additional Health Concerns Assessment Noted Time PHQ-9 Depression Total Score: 3 06/04/19 23 3:42 PM EDT documented as of this encounter Care Teams Clinical Editor Relationship Specialty Start Date End Date Carlo Santana MD 505 [place] [address] PCP - General Internal Medicine 12/28/17 documented as of this encounter
--- OUTSIDE RECORDS SUMMARY | 2024-07-11 14:55 | XMS_ITS | Encounter Summary ---
Author Organization [employer] Address 75 [facility] 7 [place] [address] Care Team Providers Care Medical Staff Services Coordinator Name Role Phone Carlo Santana MD Primary Care Provider +1- [phone] Encounter Details Date Type Department Care Team (Late st Contact Info) Description 06/09/2023 Telephone [facility] MEDICINE 230 [place] [address] Carlo Santana MD [address] [facility] [address] [place], [place] [phone] Social History Tobacco Use Types Packs/Day Years [...] Description 07/12/2024 9:30 AM EDT Clinical Support [facility] MED & PEDS 505 [place] [address] Fariba Gandhi, RN 505 [place] [address] documented as of this encounter Visit Diagnoses Not on filedocumented in this encounter Additional Health Concerns Assessment Noted Time PHQ-9 Depression Total Score: 3 06/04/19 23 3:42 PM EDT documented as of this encounter Care Teams Medical Staff Services Coordinator Relationship Specialty Start Date End Date Carlo Santana MD 505 [place] [address] PCP - General Internal Medicine 12/28/17 documented as of this encounter
--- OUTSIDE RECORDS SUMMARY | 2024-07-11 14:55 | XMS_ITS | Encounter Summary ---
Author Organization [employer] Address [address] [place] [address] 7 [place] [address] Care Team Providers Care Specialist Physician Name Role Phone Carlo Santana MD Primary Care Provider +1- [phone] Reason for Visit * Reason Onset Date Comments Nurse Triage 12/20/2023 Encounter Details Date Type Department Care Team ([facility] st Contact Info) Description 12/20/2023 Telephone [facility] MED & PEDS 505 [place] [address] Carlo Santana MD 505 [place] [address] Nurse Triage Social History Tobacco Use Types [...] assist her * Telephone Encounter - Carlo Santnaa MD - 12/21/2023 10:33 PM EDT Please [...] is requesting an urgentappointment. Contact pt at [phone] documented in this encounter Plan of Treatment Upcoming Encounters Date Type Department Care Team (Late st Contact Info) Description 07/12/2024 9:30 AM EDT Clinical Support [facility] MED & PEDS 505 [place] [address] Fariba Gandhi, HUGO 505 [place] [address] documented as of this encounter Visit Diagnoses Not on filedocumented in this encounter Additional Health Concerns Assessment Noted Time PHQ-9 Depression Total Score: 3 06/04/19 23 3:42 PM EDT documented as of this encounter Care Teams Specialist Physician Relationship Specialty Start Date End Date Carlo Santana MD 505 [place] [address] PCP - General Internal Medicine 12/28/17 documented as of this encounter
--- OUTSIDE RECORDS SUMMARY | 2024-07-11 14:55 | XMS_ITS | Encounter Summary ---
Author Organization [employer] Address 75 [facility] 7 [place] [address] Care Team Providers Care Straightener Gun Parts Name Role Phone Carlo Santana MD Primary Care Provider +1- [phone] Reason for Visit * Reason Onset Date Comments Appointment Request 12/13/2023 Encounter Details Date Type Department Care Team ([facility] st Contact Info) Description 12/13/2023 Telephone [facility] MEDICINE 230 [place] [address] Carlo Santana MD [address] [facility] [address] [place], [place] [phone] Appointment Request Social History Tobacco Use Types [...] 9:30 AM EDT Clinical Support [facility] MED & PEDS 505 [place] [address] Fariba Gandhi, HUGO 505 [place] [address] documented as of this encounter Visit Diagnoses Not on filedocumented in this encounter Additional Health Concerns Assessment Noted Time PHQ-9 Depression Total Score: 3 06/04/19 23 3:42 PM EDT documented as of this encounter Care Teams Straightener Gun Parts Relationship Specialty Start Date End Date Carlo Santana MD 505 [place] [address] PCP - General Internal Medicine 12/28/17 documented as of this encounter
--- OUTSIDE RECORDS SUMMARY | 2024-07-11 14:55 | XMS_ITS | Encounter Summary ---
Author Organization [employer] Address 75 [facility] 7t [place] [address] Care Team Providers Care Senior Editor Name Role Phone Carlo Santana MD Primary Care Provider +1- [phone] Reason for Visit * Reason Comments Med Change Request Encounter Details Date Type Department Care Team ([facility] st Contact Info) Description 12/20/2023 Refill [facility] 230 [place] [address] Carlo Santana MD [address] [facility] [address] [place], [place] [phone] Hypoproteinemia (CMS/HCC) Social History Tobacco Use Types [...] Team ([facility] st Contact Info) Description 07/12/2024 9:30 AM EDT Clinical Support [facility] MED & PEDS 505 [place] [address] Fariba Gandhi RN 505 [place] [address] documented as of this encounter Visit Diagnoses Diagnosis Hypoproteinemia (CMS/HCC) Other disorders of plasma protein metabolism documented in this encounter Additional Health Concerns Assessment Noted Time PHQ-9 Depression Total Score: 3 06/04/19 23 3:42 PM EDT documented as of this encounter Care Teams Senior Editor Relationship Specialty Start Date End Date Carlo Santana MD 505 [place] [address] PCP - General Internal Medicine 12/28/17 documented as of this encounter
--- OUTSIDE RECORDS SUMMARY | 2024-07-11 14:55 | XMS_ITS | Encounter Summary ---
Author Organization [employer] Address 75 [facility] 7 [place] [address] Care Team Providers Care Parts Coordinator Name Role Phone Carlo Santana MD Primary Care Provider +1- [phone] Reason for Visit * Reason Onset Date Comments Call Back Request 12/19/2023 Encounter Details Date Type Department Care Team ([facility] st Contact Info) Description 12/19/2023 Telephone [facility] MEDICINE 230 [place] [address] Carlo Santana MD [address] [facility] [address] [place], [place] [phone] Call Back Request Social History Tobacco Use [...] [facility] MED & PEDS 505 [place] [address] Fariba Gandhi, HUGO 505 [place] [address] documented as of this encounter Visit Diagnoses Not on filedocumented in this encounter Additional Health Concerns Assessment Noted Time PHQ-9 Depression Total Score: 3 06/04/19 23 3:42 PM EDT documented as of this encounter Care Teams Parts Coordinator Relationship Specialty Start Date End Date Carlo Santana MD 505 [place] [address] PCP - General Internal Medicine 12/28/17 documented as of this encounter
--- OUTSIDE RECORDS SUMMARY | 2024-07-11 14:55 | XMS_ITS | Encounter Summary ---
Author Organization [employer] Address [address] [place] [address] 7 [place] [address] Care Team Providers Care Senior Compensation Analyst Name Role Phone Carlo Santana MD Primary Care Provider [phone] Reason for Visit * Reason Comments Med Refill Encounter Details Date Type Department Care Team ([facility] Contact Info) Description 07/10/2024 Refill [facility] MED & PEDS [address] [place] [address] Carlo Santana MD 505 [place] [address] Chronic left-sided low back pain with left-sided [...] Description 07/12/2024 9:30 AM EDT Clinical Support [facility] MED & PEDS [address] [place] [address] Fariba Gandhi, HUGO 505 [place] [address] documented as of this encounter Visit Diagnoses Diagnosis Chronic left-sided low back pain with left-sided sciatica documented in this encounter Additional Health Concerns Assessment Noted Time PHQ-9 Depression Total Score: 15 024 11:50 AM EST documented as of this encounter Care Teams Senior Compensation Analyst Relationship Specialty Start Date End Date Carlo Santana MD [address] [place] [address] PCP - General Internal Medicine 12/28/17 documented as of this encounter
== END 2024-07-11 14:02 | disposition home or self-care (01) ==
LOC: HO.PMC 13:35
PROVIDERS: PCP Internal Medicine; Visit Provider Anesthesiology
DX: R20.0 Anesthesia of skin (principal); R20.2 Paresthesia of skin; M54.16 Radiculopathy, lumbar region; M47.816 Spondylosis without myelopathy or radiculopathy, lumbar region; M25.551 Pain in right hip; M46.1 Sacroiliitis, not elsewhere classified; M53.3 Sacrococcygeal disorders, not elsewhere classified; M19.011 Primary osteoarthritis, right shoulder; M25.511 Pain in right shoulder
CPT/HCPCS: 99213

== ENCOUNTER → 2024-07-11 13:34 | Outpatient (BNVA) | payer MEDICAID, SELFPAY | PROVIDERS: PCP Internal Medicine; Visit Provider Anesthesiology | DX: M54.16 Radiculopathy, lumbar region (principal); M47.816 Spondylosis without myelopathy or radiculopathy, lumbar region; M25.551 Pain in right hip; M46.1 Sacroiliitis, not elsewhere classified; M53.3 Sacrococcygeal disorders, not elsewhere classified; M19.011 Primary osteoarthritis, right shoulder; M25.511 Pain in right shoulder; R20.0 Anesthesia of skin; R20.2 Paresthesia of skin | CPT/HCPCS: 99212 ==

== ENCOUNTER 2024-08-16 10:58 | Outpatient (REF) | payer MEDICAID, SELFPAY ==
--- NOTE | ~2024-08-16 | XR_ITS ---
CLINICAL HISTORY: M25.511 - Pain in right shoulder Four views of the right shoulder. COMPARISON: None FINDINGS: Proximal right humerus, in the right scapula appear intact. Well corticated ossification present along the distal aspect of the clavicle adjacent to the acromioclavicular joint. Humeral head is appropriately seated in the glenoid. Moderate hypertrophy of the right acromioclavicular joint. Visualized portions of the right lung are clear. IMPRESSION: 1. 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 2. Moderate acromioclavicular joint hypertrophy. This document has been electronically signed by: Roberto Hernandez MD on 08/16/2024 15:12:19
--- OUTSIDE RECORDS SUMMARY | 2024-08-16 12:59 | XMS_ITS | Encounter Summary ---
Author Organization [employer] Address [address] [facility] 7t [place] [address] Care Team Providers Care Insurance Defense Paralegal Name Role Phone Carlo Santana MD Primary Care Provider [phone] Reason for Visit * Reason Onset Date Comments Med Refill 07/30/2024 Encounter Details Date Type Department Care Team (Late st Contact Info) Description 07/30/[address] [facility] MEDICINE [address] [place] [address] Carlo Santana MD [address] [facility] [address] [place], [place] [phone] Med Refill Social History Tobacco Use Types [...] Miscellaneous Notes * Telephone Encounter - Patricia sEpinal - 07/30/2024 8:32 AM EDT TC from pt requesting medication refill. Medications needing refill : oxyCODONE (Roxicodone) 10 MG immediate release tablet To be sent to: [facility]/pharmacy #[id number] - [place]HA PHILLIPS - [id number] [facility] documented in this encounter Plan of Treatment Upcoming Encounters Date Type Department Care Team ([facility] st Contact Info) Description 09/24/2024 10:00 AM EDT Telemedicine [facility] CH[facility] MED & PEDS 505 [place] [address] Fariba Gandhi, HUGO 505 [place] [address] documented as of this encounter Visit Diagnoses Not on filedocumented in this encounter Additional Health Concerns Assessment Noted Time PHQ-9 Depression Total Score: 15 024 11:50 AM EST documented as of this encounter Care Teams Insurance Defense Paralegal Relationship Specialty Start Date End Date Carlo Santana MD [address] [facility] [place] [address] PCP - General Internal Medicine 12/28/17 documented as of this encounter
[2024-08-16 13:17] LABS: HBS Num1 17.87 mIU/mL (0-7.99); HBc Num1 0.09 S/CO (0.00-0.79); HBsAGNum1 0.27 S/CO (0.00-0.99); Hepatitis A Antibody IgM 0.17 Index (0-0.79); Hepatitis B Core Antibody Nonreactive (Nonreactive); Hepatitis B Surface Antigen Negative (Negative); ~HepC Num1 0.12 S/CO (0.00-0.79); ~Hepatitis A Antibody IgM Nonreactive (Nonreactive); ~Hepatitis B Surface Antibody REACTIVE (Nonreactive); ~Hepatitis C Antibody Nonreactive (Nonreactive)
[2024-08-20 14:39] LABS: Mitochondrial Antibodies NEGATIVE (NEGATIVE)
== END 2024-08-16 10:59 | disposition home or self-care (01) ==
LOC: HO.XRAY 10:58
PROVIDERS: Absent Provider Anesthesiology; PCP Internal Medicine; Visit Provider Internal Medicine
DX: D64.9 Anemia, unspecified (principal); R74.01 Elevation of levels of liver transaminase levels; M19.011 Primary osteoarthritis, right shoulder; M25.511 Pain in right shoulder
CPT/HCPCS: 36415; 73030; 86381; 86704; 86706; 86709; 86803; 87340

== ENCOUNTER → 2024-08-16 11:12 | Outpatient (BNV) | payer MEDICAID, SELFPAY | PROVIDERS: Absent Provider Anesthesiology; PCP Internal Medicine; Visit Provider Radiology Diagnostic Radiology | DX: M89.311 Hypertrophy of bone, right shoulder (principal) | CPT/HCPCS: 73030 ==

== ENCOUNTER 2024-08-21 12:29 | Outpatient (REF) | payer MEDICAID, SELFPAY ==
--- NOTE | ~2024-08-21 | XR_ITS ---
CLINICAL HISTORY: chronic back pain worse after a fall 5 views lumbar spine Comparison: None Findings: Grade 2 anterolisthesis of the L4-L5. Transitional vertebral anatomy. Asymmetric diminutive 12th ribs for the purposes of this dictation only. Five lumbar type vertebrae with prominent L5 transverse processes. Partial obscuration of the pars without definite lysis. Degenerative changes are multifocal with disc height losses including severe at L1-L2 and moderate to severe at L4-L5 and L5-S1 by this numbering system. Mild rightward curvature of the lumbar spine. Facet arthropathy is multifocal and most pronounced of the lower lumbar spine. Schmorl's nodes noted including imaged T12. Surgical clips noted in the aaxdo-bf-liae. Sacrum and SI joints are mostly obscured. IMPRESSION: 1. Degenerative disc changes include L1-L2, L4-L5, and L5-S1. 2. Listhesis at L4-L5 with transitional vertebral anatomy. 3. Additional degenerative changes include facet arthropathy. This document has been electronically signed by: Toñito Godinez MD on 08/21/2024 19:19:32
--- NOTE | ~2024-08-21 | XR_ITS ---
CLINICAL HISTORY: h o chronic left shoulder pain, getting worse. H o falls. 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 Mild osteoarthritis of the left glenohumeral joint. No acute fracture or dislocation. Mild atelectasis in the hirew-ml-icjv. No radiopaque retained foreign body. IMPRESSION: 1. 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 2. mild osteoarthritis of the left glenohumeral joint. This document has been electronically signed by: Toñito Godinez MD on 08/21/2024 19:18:22
--- OUTSIDE RECORDS SUMMARY | 2024-08-21 14:42 | XMS_ITS | Encounter Summary ---
Author Organization [employer] Address [address] [facility] 7t [place] [address] Care Team Providers Care Hat Maker Name Role Phone Carlo Santana MD Primary Care Provider [phone] Reason for Visit * Reason Onset Date Comments Med Refill 07/30/2024 Encounter Details Date Type Department Care Team (Late st Contact Info) Description 07/30/2024 Telephone [facility] MEDICINE [address] [place] [address] Carlo Santana MD [address] [facility] [address] [place], [place] [phone] Med Refill Social History Tobacco Use Types [...] * Telephone Encounter - Patricia Espinal - 07/30/2024 8:32 AM EDT TC from pt requesting medication refill. Medications needing refill : oxyCODONE (Roxicodone) 10 MG immediate release tablet To be sent to: [facility]/pharmacy #[id number] - [place] PHILLIPS - [id number] [facility] documented in this encounter Plan of Treatment Upcoming Encounters Date Type Department Care Team ([facility] st Contact Info) Description 09/24/2024 10:00 AM EDT Telemedicine [facility] CHC MED & PEDS 505 [place] [address] Fariba Gandhi, HUGO 505 [place] [address] documented as of this encounter Visit Diagnoses Not on filedocumented in this encounter Additional Health Concerns Assessment Noted Time PHQ-9 Depression Total Score: 15 024 11:50 AM EST documented as of this encounter Care Teams Hat Maker Relationship Specialty Start Date End Date Carlo Santana MD 505 [place] [address] PCP - General Internal Medicine 12/28/17 documented as of this encounter
== END 2024-08-21 12:30 | disposition home or self-care (01) ==
LOC: HO.XRAY 12:29
PROVIDERS: PCP Internal Medicine; Visit Provider Internal Medicine
DX: Z91.81 History of falling (principal); M25.512 Pain in left shoulder; G89.29 Other chronic pain; M54.41 Lumbago with sciatica, right side; M54.42 Lumbago with sciatica, left side
CPT/HCPCS: 72110; 73030

== ENCOUNTER → 2024-08-21 12:33 | Outpatient (BNV) | payer MEDICAID, SELFPAY | PROVIDERS: PCP Internal Medicine; Visit Provider Radiology Neuroradiology | DX: M51.360 Other intervertebral disc degeneration, lumbar region with discogenic back pain only (principal); M43.16 Spondylolisthesis, lumbar region; M19.012 Primary osteoarthritis, left shoulder | CPT/HCPCS: 72110; 73030 ==

== ENCOUNTER 2024-09-06 13:17 | Outpatient (REF) | payer MEDICAID, SELFPAY ==
--- OUTSIDE RECORDS SUMMARY | 2024-09-06 16:08 | XMS_ITS | Encounter Summary ---
Author Organization [employer] Address [address] [facility] 7t [place] [address] Care Team Providers Care Bilingual Customer Service Specialist Name Role Phone Cralo Santana MD Primary Care Provider [phone] Reason for Visit * Reason Onset Date Comments Med Refill 07/30/2024 Encounter Details Date Type Department Care Team (Late st Contact Info) Description 07/30/2024 Telephone [facility] MEDICINE [address] [place] [address] Carlo Santana MD [address] [facility] [address] [place], [place] [phone] Med Refill Social History Tobacco Use Types [...] immediate release tablet To be sent to: [facility]/pharmacy #[id number] - [place]HA PHILLIPS - [id number] [facility] documented in this encounter Plan of Treatment Upcoming Encounters Date Type Department Care Team ([facility] st Contact Info) Description 09/24/2024 10:00 AM EDT Telemedicine [facility] CH[facility] MED & PEDS 505 [place] [address] Fariba Gandhi, HUGO 505 [place] [address] documented as of this encounter Visit Diagnoses Not on filedocumented in this encounter Additional Health Concerns Assessment Noted Time PHQ-9 Depression Total Score: 15 024 11:50 AM EST documented as of this encounter Care Teams Bilingual Customer Service Specialist Relationship Specialty Start Date End Date Carlo Santana MD 505 [place] [address] PCP - General Internal Medicine 12/28/17 documented as of this encounter
== END 2024-09-06 13:18 | disposition home or self-care (01) ==
LOC: HO.CHCLNP 13:17
PROVIDERS: PCP Internal Medicine; Visit Provider Internal Medicine
DX: S01.21XA Laceration without foreign body of nose, initial encounter (principal)
CPT/HCPCS: 87070; 87077; 87147; 87186; 87205

== ENCOUNTER 2024-12-12 11:02 | Outpatient (REF) | payer MEDICAID, SELFPAY ==
--- OUTSIDE RECORDS SUMMARY | 2024-12-12 12:33 | XMS_ITS | Encounter Summary ---
Author Organization [employer] Address 75 [facility] 7t [place] [address] Care Team Providers Care Endoscopy Support Specialist Name Role Phone Carlo Santana MD Primary Care Provider [phone] Reason for Visit * Reason Onset Date Comments Med Refill 09/14/2023 Encounter Details Date Type Department Care Team ([facility] Contact Info) Description 09/14/2023 Telephone [facility] MED & PEDS 505 [place] [address] Carlo Santana MD 505 [place] [address] Med Refill Social History Tobacco Use Types [...] patch To be sent to: [facility]/pharmacy #[id number] - [place]HA PHILLIPS - [address] [facility] documented in this encounter Plan of Treatment Upcoming Encounters Date Type Department Care Team (Late st Contact Info) Description 01/02/2025 2:15 PM EDT Clinical Support [facility] MED & PEDS [address] [place] [address] Fariba Gandhi, HUGO 505 [facility] [place] [address] documented as of this encounter Visit Diagnoses Not on filedocumented in this encounter Additional Health Concerns Assessment Noted Time PHQ-9 Depression Total Score: 3 06/04/19 23 3:42 PM EDT documented as of this encounter Care Teams Endoscopy Support Specialist Relationship Specialty Start Date End Date Carlo Santana MD 505 [place] [address] PCP - General Internal Medicine 12/28/17 documented as of this encounter
--- OUTSIDE RECORDS SUMMARY | 2024-12-12 12:33 | XMS_ITS | Encounter Summary ---
Author Organization [employer] Address [address] [place] [address] 7 [place] [address] Care Team Providers Care Ese Teacher Name Role Phone Carlo Santana MD Primary Care Provider [phone] Reason for Referral * Imaging (Routine) - Closed Specialty Diagnoses / Procedures Referred By Contac t Referred To Contact Radiology Diagnoses Transaminitis Procedures US Abdomen Complete Carlo Santana MD 505 [place] [address] Phone: tel: fax: [address] Phone: tel: fax: Referral ID Status Reason Start Date Expiration Date Visits Re quested Visits Authorized [id number] Closed 03/23/2024 03/23/2025 1 1 Reason for Visit * Reason Comments Med Refill Encounter Details Date Type Department Care Team (Late st Contact Info) Description 03/21/2024 Refill [facility] CHC MED & PEDS [address] [place] [address] Carlo Santana MD 505 [place] [address] Chronic left-sided low back pain with left-sided [...] Description 01/02/2025 2:15 PM EDT Clinical Support [facility] MED & PEDS 505 [place] [address] Fariba Gandhi RN 505 [place] [address] Scheduled Orders Name Type Priority Associated Diagnoses [...] documented as of this encounter Care Teams Ese Teacher Relationship Specialty Start Date End Date Carlo Santana MD 505 [place] [address] PCP - General Internal Medicine 12/28/17 documented as of this encounter
--- OUTSIDE RECORDS SUMMARY | 2024-12-12 12:33 | XMS_ITS | Encounter Summary ---
Author Organization [employer] Address [address] [facility] 7t [place] [address] Care Team Providers Care Trial Management Associate Name Role Phone Carlo Santana MD Primary Care Provider [phone] Reason for Visit * Reason Onset Date Comments Prior Authorization 02/07/2024 Encounter Details Date Type Department Care Team ([facility] st Contact Info) Description 02/07/2024 Telephone [facility] MEDICINE [address] [place] [address] Carlo Santana MD 505 [place], [place] [phone] Prior Authorization Social History Tobacco Use Types [...] Description 01/02/2025 2:15 PM EDT Clinical Support [facility] CHC MED & PEDS 505 [place] [address] Fariba Gandhi, HUGO 505 [place] [address] documented as of this encounter Visit Diagnoses Not on filedocumented in this encounter Additional Health Concerns Assessment Noted Time PHQ-9 Depression Total Score: 15 024 11:50 AM EST documented as of this encounter Care Teams Trial Management Associate Relationship Specialty Start Date End Date Carlo Santana MD [address] [place] [address] PCP - General Internal Medicine 12/28/17 documented as of this encounter
--- OUTSIDE RECORDS SUMMARY | 2024-12-12 12:33 | XMS_ITS | Encounter Summary ---
Author Organization [employer] Address [address] [facility] 7 [place] [address] Care Team Providers Care Sample Stitcher Name Role Phone Carlo Santana MD Primary Care Provider [phone] Encounter Details Date Type Department Care Team ([facility] st Contact Info) Description 10/26/2024 Orders Only [facility] CHC MED & PEDS 505 [place], [place] [phone] Carlo Santana MD 505 [place], [place] [phone] Chronic left-sided low back pain with left-sided sciatica Social History Tobacco Use Types Packs/Day Years Used Date Smoking Tobacco: Never Passive Smoke Exposure: Never Smokeless Tobacco: Never Alcohol Use Standard Drinks/Week Comments Never 0 (1 standard drink = 0.6 oz pur e alcohol) Depression Answer Date Recorded Patient Health Questionnaire-9 Score 6 08/21/2024 Patient Health Questionnaire-9 Score 6 08/21/2024 Last PHQ-9: Questionnaire Data Not on file 0 08/21/2024 Housing Stability Answer Date Recorded What is [...] Answer Date Recorded Patient Health Questionnaire-2 Score 1 08/21/2024 Internet Access Answer Date Recorded Internet Access [...] Upcoming Encounters Date Type Department Care Team ([facility] st Contact Info) Description 01/02/2025 2:15 PM EDT Clinical Support [facility] CHC MED & PEDS 505 [place] [address] Fariba Gandhi, HUGO 505 [place] [address] documented as of this encounter Visit Diagnoses Diagnosis Chronic left-sided low back pain with left-sided sciatica documented in this encounter Additional Health Concerns Assessment Noted Time PHQ-9 Depression Total Score: 6 08/22/19 25 10:16 AM EDT documented as of this encounter Care Teams Sample Stitcher Relationship Specialty Start Date End Date Carlo Santana MD 505 [place] [address] PCP - General Internal Medicine 12/28/17 documented as of this encounter
--- OUTSIDE RECORDS SUMMARY | 2024-12-12 12:33 | XMS_ITS | Encounter Summary ---
Author Organization [employer] Address 75 [facility] 7t [place] [address] Care Team Providers Care Pumper Gauger Apprentice Name Role Phone Carlo Santana MD Primary Care Provider [phone] Reason for Visit * Reason Comments Med Refill Encounter Details Date Type Department Care Team ([facility] Contact Info) Description 11/13/2024 Refill [facility] CHC MED & PEDS 505 [place], [place] [phone] Carlo Santana MD 505 [place] [address] Chronic left-sided low back pain with left-sided [...] Upcoming Encounters Date Type Department Care Team ([facility] st Contact Info) Description 01/02/2025 2:15 PM EDT Clinical Support [facility] MED & PEDS 505 [place] [address] Fariba Gandhi, HUGO 505 [place] [address] documented as of this encounter Visit Diagnoses Diagnosis Chronic left-sided low back pain with left-sided sciatica documented in this encounter Additional Health Concerns Assessment Noted Time PHQ-9 Depression Total Score: 6 08/22/19 25 10:16 AM EDT documented as of this encounter Care Teams Pumper Gauger Apprentice Relationship Specialty Start Date End Date Carlo Santana MD 505 [place] [address] PCP - General Internal Medicine 12/28/17 documented as of this encounter
--- OUTSIDE RECORDS SUMMARY | 2024-12-12 12:33 | XMS_ITS | Encounter Summary ---
Author Organization [employer] Address [address] [facility] [address] [address] 7t [place] [address] Care Team Providers Care Linoleum Mechanic Name Role Phone Carlo Santana MD Primary Care Provider [phone] Reason for Visit * Reason Comments Med Refill Encounter Details Date Type Department Care Team ([facility] st Contact Info) Description 10/26/2024 Refill [facility] 230 [place] [address] Carlo Santana MD 505 [place], [place] [phone] Chronic left-sided low back pain with left-sided [...] [facility] Contact Info) Description 01/02/2025 2:15 PM EDT Clinical Support [facility] MED & PEDS 505 [place] [address] Fariba Gandhi, HUGO 505 [place] [address] documented as of this encounter Visit Diagnoses Diagnosis Chronic left-sided low back pain with left-sided sciatica documented in this encounter Additional Health Concerns Assessment Noted Time PHQ-9 Depression Total Score: 6 08/22/19 25 10:16 AM EDT documented as of this encounter Care Teams Linoleum Mechanic Relationship Specialty Start Date End Date Carlo Santana MD 505 [place] [address] PCP - General Internal Medicine 12/28/17 documented as of this encounter
--- OUTSIDE RECORDS SUMMARY | 2024-12-12 12:33 | XMS_ITS | Encounter Summary ---
Author Organization [employer] Address [address] [facility] 7t [place] [address] Care Team Providers Care Bell Neck Hammerer Name Role Phone Carlo Santana MD Primary Care Provider [phone] Encounter Details Date Type Department Care Team ([facility] st Contact Info) Description 08/05/2023 Telephone [facility] MEDICINE 230 [place] [address] Carlo Santana MD 505 [place], [place] [phone] Social History Tobacco Use Types Packs/Day Years [...] Description 01/02/2025 2:15 PM EDT Clinical Support [facility] MED & PEDS 505 [place] [address] Fariba Gandhi, HUGO 505 [place] [address] documented as of this encounter Visit Diagnoses Not on filedocumented in this encounter Additional Health Concerns Assessment Noted Time PHQ-9 Depression Total Score: 3 06/04/19 23 3:42 PM EDT documented as of this encounter Care Teams Bell Neck Hammerer Relationship Specialty Start Date End Date Carlo Santana MD 505 [place] [address] PCP - General Internal Medicine 12/28/17 documented as of this encounter
--- OUTSIDE RECORDS SUMMARY | 2024-12-12 12:33 | XMS_ITS | Encounter Summary ---
Author Organization [employer] Address [address] [facility] 7t h Floor [address] Care Team Providers Care Gas Welding Machine Operator Name Role Phone Carlo Santana MD Primary Care Provider [phone] Reason for Visit * Reason Onset Date Comments Medication Question 01/31/2024 Encounter Details Date Type Department Care Team ([facility] Contact Info) Description 01/31/2024 Telephone [facility] CHC MED & PEDS [address] [place] [address] Carlo Santana MD 505 [place] [address] Medication Question Social History Tobacco Use Types [...] Mayorga LPN - 01/31/2024 10:10 AM EST Physician Assistant Surgery communicated with the patient's insurance provider, who indicated that prior authorization is not required. Oxycodone was discontinued because the patient received a prescription for acetaminophen 600 mg from another physician's office on January 25, 2024. I requested that the [facility] nurse join this discussion to ensure she is informed about the patient's situation. The insurance expressed concerns regarding the patient's liver health due to the use of these medications. An override for Oxycodone was granted; however, it was noted that it will be revoked if the patient continuesto use this medication (acetaminophen 600 mg). This information is being shared with both the SPRING FORMER MACHINE nurse and the primary care physician to [...] [facility] st Contact Info) Description 01/02/2025 2:15 PM EDT Clinical Support [facility] MED & PEDS [address] [place] [address] Fariba Gandhi RN 505 [place] [address] documented as of this encounter Visit Diagnoses Not on filedocumented in this encounter Additional Health Concerns Assessment Noted Time PHQ-9 Depression Total Score: 15 024 11:50 AM EST documented as of this encounter Care Teams Gas Welding Machine Operator Relationship Specialty Start Date End Date Carlo Santana MD 505 [place] [address] PCP - General Internal Medicine 12/28/17 documented as of this encounter
--- OUTSIDE RECORDS SUMMARY | 2024-12-12 12:33 | XMS_ITS | Encounter Summary ---
Author Organization [employer] Address [address] [facility] 7t [place] [address] Care Team Providers Care Recreation Specialist Name Role Phone Carlo Santana MD Primary Care Provider [phone] Reason for Visit * Reason Onset Date Comments Nurse Triage 03/21/2024 Encounter Details Date Type Department Care Team ([facility] st Contact Info) Description 03/21/2024 Telephone [facility] MEDICINE [address] [place] [address] Carlo Santana MD 505 [place], [place] [phone] Nurse Triage Social History Tobacco Use Types [...] EST Triage call Pt reports seen by dry janitor and Pt believes they may have Crohns [...] Reason: Joint pain Please contact pt at [phone]. documented in this encounter Plan of Treatment Upcoming Encounters Date Type Department Care Team ([facility] st Contact Info) Description 01/02/2025 2:15 PM EDT Clinical Support [facility] MED & PEDS [address] [place] [address] Fariba Gandhi RN 505 [place] [address] documented as of this encounter Visit Diagnoses Diagnosis Acute pain of both shoulders documented in this encounter Additional Health Concerns Assessment Noted Time PHQ-9 Depression Total Score: 15 024 11:50 AM EST documented as of this encounter Care Teams Recreation Specialist Relationship Specialty Start Date End Date Cralo Santana MD 505 [place] [address] PCP - General Internal Medicine 12/28/17 documented as of this encounter
--- OUTSIDE RECORDS SUMMARY | 2024-12-12 12:33 | XMS_ITS | Encounter Summary ---
Author Organization [employer] Address [address] [facility] 7t [place] [address] Care Team Providers Care Electro Mechanic Name Role Phone Carlo Santana MD Primary Care Provider [phone] Reason for Visit * Reason Onset Date Comments FYI 08/10/2023 Encounter Details Date Type Department Care Team ([facility] st Contact Info) Description 08/10/2023 Telephone [facility] MEDICINE 230 [place] [address] Carlo Santana MD 505 [place], [place] [phone] FYI Social History Tobacco Use Types Packs/Day [...] Description 01/02/2025 2:15 PM EDT Clinical Support [facility] CHC MED & PEDS 505 [place] [address] Fariba Gandhi, HUGO 505 [place] [address] documented as of this encounter Visit Diagnoses Not on filedocumented in this encounter Additional Health Concerns Assessment Noted Time PHQ-9 Depression Total Score: 3 06/04/19 23 3:42 PM EDT documented as of this encounter Care Teams Electro Mechanic Relationship Specialty Start Date End Date Carlo Santana MD 505 [place] [address] PCP - General Internal Medicine 12/28/17 documented as of this encounter
--- OUTSIDE RECORDS SUMMARY | 2024-12-12 12:33 | XMS_ITS | Encounter Summary ---
Author Organization [employer] Address 75 [facility] 7t [place] [address] Care Team Providers Care Employment And Claims Aide Name Role Phone Carlo Santana MD Primary Care Provider [phone] Reason for Visit * Reason Onset Date Comments Prior Authorization 09/02/2023 Encounter Details Date Type Department Care Team ([facility] Contact Info) Description 09/02/2023 Telephone [facility] MED & PEDS [address] [place] [address] Carlo Santana MD 505 [place] [address] Prior Authorization Social History Tobacco Use Types [...] Team ([facility] st Contact Info) Description 01/02/2025 2:15 PM EDT Clinical Support [facility] MED & PEDS [address] [place] [address] Fariba Gandhi, RN 505 [place] [address] documented as of this encounter Visit Diagnoses Diagnosis Bipolar affective disorder, remission status unspecified (CMS/HCC) (HCC) documented in this encounter Additional Health Concerns Assessment Noted Time PHQ-9 Depression Total Score: 3 06/04/19 23 3:42 PM EDT documented as of this encounter Care Teams Employment And Claims Aide Relationship Specialty Start Date End Date Carlo Santana MD [address] [place] [address] PCP - General Internal Medicine 12/28/17 documented as of this encounter
--- OUTSIDE RECORDS SUMMARY | 2024-12-12 12:33 | XMS_ITS | Encounter Summary ---
Author Organization [employer] Address [address] [facility] [facility] [address] 7t [place] [address] Care Team Providers Care Window Shade Installer Name Role Phone Carlo Santana MD Primary Care Provider [phone] Reason for Visit * Reason Onset Date Comments Medication Question 12/28/2023 Encounter Details Date Type Department Care Team ([facility] st Contact Info) Description 12/28/2023 Telephone [facility] MEDICINE [address] [place] [address] Carlo Santana MD 505 [place], [place] [phone] Medication Question Social History Tobacco Use Types [...] any questions you can contact pt at [phone]. documented in this encounter Plan of Treatment Upcoming Encounters Date Type Department Care Team ([facility] st Contact Info) Description 01/02/2025 2:15 PM EDT Clinical Support [facility] MED & PEDS 505 [place] [address] Fariba Gandih RN 505 [place] [address] documented as of this encounter Visit Diagnoses Not on filedocumented in this encounter Additional Health Concerns Assessment Noted Time PHQ-9 Depression Total Score: 3 06/04/19 23 3:42 PM EDT documented as of this encounter Care Teams Window Shade Installer Relationship Specialty Start Date End Date Carlo Santana MD [address] [place] [address] PCP - General Internal Medicine 12/28/17 documented as of this encounter
--- OUTSIDE RECORDS SUMMARY | 2024-12-12 12:33 | XMS_ITS | Encounter Summary ---
Author Organization [employer] Address 75 [facility] 7t [place] [address] Care Team Providers Care Dental Intern Name Role Phone Carlo Santana MD Primary Care Provider [phone] Reason for Visit * Reason Onset Date Comments Med Refill 06/14/2024 Encounter Details Date Type Department Care Team (Late st Contact Info) Description 06/14/2024 Telephone [facility] MEDICINE 230 [place] [address] Carlo Santana MD 505 [place], [place] [phone] Med Refill Social History Tobacco Use Types [...] Health Care Facility st Contact Info) Description 01/02/2025 2:15 PM EDT Clinical Support [facility] MED & PEDS 505 [place] [address] Fariba Gandhi RN 505 [place] [address] documented as of this encounter Visit Diagnoses Not on filedocumented in this encounter Additional Health Concerns Assessment Noted Time PHQ-9 Depression Total Score: 15 024 11:50 AM EST documented as of this encounter Care Teams Dental Intern Relationship Specialty Start Date End Date Carlo Santana MD 505 [facility] [place] [address] PCP - General Internal Medicine 12/28/17 documented as of this encounter
--- OUTSIDE RECORDS SUMMARY | 2024-12-12 12:33 | XMS_ITS | Encounter Summary ---
Author Organization [employer] Address 75 [facility] 7t [place] [address] Care Team Providers Care Chief Of Anesthesiology Name Role Phone Carlo Santana MD Primary Care Provider [phone] Reason for Visit * Reason Onset Date Comments Medication Question 06/11/2024 Encounter Details Date Type Department Care Team ([facility] Contact Info) Description 06/11/2024 Telephone [facility] MEDICINE 230 [place] [address] Carlo Santana MD 505 [place], [place] [phone] Medication Question Social History Tobacco Use Types [...] MG immediate release tablet. Contact pt at [phone] documented in this encounter Plan of Treatment Upcoming Encounters Date Type Department Care Team ([facility] st Contact Info) Description 01/02/2025 2:15 PM EDT Clinical Support [facility] CHC MED & PEDS 505 [place] [address] Fariba Gandhi RN 505 [place] [address] documented as of this encounter Visit Diagnoses Not on filedocumented in this encounter Additional Health Concerns Assessment Noted Time PHQ-9 Depression Total Score: 15 024 11:50 AM EST documented as of this encounter Care Teams Chief Of Anesthesiology Relationship Specialty Start Date End Date Carlo Santana MD 505 [place] [address] PCP - General Internal Medicine 12/28/17 documented as of this encounter
--- OUTSIDE RECORDS SUMMARY | 2024-12-12 12:33 | XMS_ITS | Encounter Summary ---
Author Organization [employer] Address [address] [facility] 7t [place] [address] Care Team Providers Care Entertainment Musician Name Role Phone Carlo Santana MD Primary Care Provider [phone] Reason for Visit * Reason Onset Date Comments Prior Authorization 12/29/2023 Encounter Details Date Type Department Care Team ([facility] st Contact Info) Description 12/29/2023 Telephone [facility] MEDICINE 230 [place] [address] Carlo Santana MD 505 [place], [place] [phone] Prior Authorization Social History Tobacco Use Types [...] from pt stating she was informed by [facility] pharmacy that oxyCODONE-acetaminophen (Percocet) 7.5-325MG tablet needs a PA. If any questions for the pt you can contact them at [phone]. documented in this encounter Plan of Treatment Upcoming Encounters Date Type Department Care Team (Late st Contact Info) Description 01/02/2025 2:15 PM EDT Clinical Support [facility] MED & PEDS 505 [place] [address] Fariba Gandhi, HUGO 505 [place] [address] documented as of this encounter Visit Diagnoses Not on filedocumented in this encounter Additional Health Concerns Assessment Noted Time PHQ-9 Depression Total Score: 3 06/04/19 23 3:42 PM EDT documented as of this encounter Care Teams Entertainment Musician Relationship Specialty Start Date End Date Carlo Santana MD [address] [place] [address] PCP - General Internal Medicine 12/28/17 documented as of this encounter
--- OUTSIDE RECORDS SUMMARY | 2024-12-12 12:33 | XMS_ITS | Encounter Summary ---
Author Organization [employer] Address 75 [facility] 7 [place] [address] Care Team Providers Care Process Control Board Operator Name Role Phone Carlo Santana MD Primary Care Provider [phone] Encounter Details Date Type Department Care Team ([facility] st Contact Info) Description 06/14/2024 Orders Only [facility] CHC MED & PEDS 505 [place], [place] [phone] Carlo Santana MD 505 [place], [place] [phone] Chronic left-sided low back pain with left-sided [...] ([facility] st Contact Info) Description 01/02/2025 2:15 PM EDT Clinical Support [facility] MED & PEDS 505 [place] [address] Fariba Gandhi, RN 505 [place] [address] documented as of this encounter Procedures Procedure [...] PM EDT Narrative 06/22/2024 8:00 PM EDT [address] [address] XRay Report Signed Patient: Peri Sandy MR#: [id number] 338 : 1980 Acct:[id number] Age/Sex: 43 / F ADM Date: 06/22/24 Loc: HO.ED Attending Dr: Ordering Physician: Javier Dubois Date of Service: 06/22/24 Procedure(s): XR knee RT 4V Accession Number(s): [id number] cc: Carlo Santana MD; Javier Dubois CLINICAL [...] in OV> 06/22/241999 DD/ 57 TD/TT: 06/22/241957 Lithographic Press Operator Apprentice: Procedure Note Donotluisinterpreter, Image - 06/22/[address] [address] XRay Report Signed Patient: Peri Sandy MMR#: [id number] 338 : 1980Acct:[id number] Age/Sex: 43 / FADM Date: 06/22/24 Loc: .ED Attending Dr: Ordering Physician: Javier Dubois Date of Service: 06/22/24 Procedure(s): XR knee RT 4V Accession Number(s): [id number] cc: Carlo Santana MD; Javier Dubois CLINICAL [...] in OV> 06/22/241999 DD/ 57 TD/TT: 06/22/241957 Lithographic Press Operator Apprentice: [facility] External Provider IMG XR PROCEDURES Edited Result - Final * CT Cervical Spine w/o Contrast (06/22/2024 7:56 PM EDT) Anatomical Region Laterality Modality Spine, C-spine Computed Tomogra phy 06/22/2024 7:56 PM EDT Narrative 06/22/2024 7:58 PM EDT [place] [address] [address] Scan Report Signed Patient: Peri Sandy MR#: [id number] 338 : 1980 Acct:[id number] Age/Sex: 43 / F ADM Date: 06/22/24 Loc: HO.ED Attending Dr: Ordering Physician: Javier Dubois Date of Service: 06/22/24 Procedure(s): CT cervical spine wo IV con Accession Number(s): [id number] cc: Carlo Santana MD; Javier Dubois Report Number: [id number]: Total DLP = 333.00 mGy-cm CLINICAL HISTORY: [...] in OV> 06/22/241957 DD/ 55 TD/TT: 06/22/241955 Lithographic Press Operator Apprentice: Procedure Note Donotuseinterpreter, Image - 06/22/[address] [address] [address] Scan Report Signed Patient: Peri Sandy MMR#: [id number] 338 : 1980Acct:[id number] Age/Sex: 43 / FADM Date: 06/22/24 Loc: HO.ED Attending Dr: Ordering Physician: Javier Dubois Date of Service: 06/22/24 Procedure(s): CT cervical spine wo IV con Accession Number(s): [id number] cc: Carlo Santana MD; aJvier Dubois Report Number: [id number]: Total DLP = 333.00 mGy-cm CLINICAL HISTORY: [...] in OV> 06/22/241957 DD/ 55 TD/TT: 06/22/241955 Lithographic Press Operator Apprentice: us [facility] External Provider IMG CT PROCEDURES Edited Result - Final * XR Chest 1 View (06/22/2024 7:56 PM EDT) Anatomical Region Laterality Modality Chest Radiographic Yi ging 06/22/2024 7:56 PM EDT Narrative 06/22/2024 7:58 PM EDT [address] [address] XRay Report Signed Patient: Peri Sandy MR#: [id number] 338 : 1980 Acct:[id number] Age/Sex: 43 / F ADM Date: 06/22/24 Loc: HO.ED Attending Dr: Ordering Physician: Javier Dubois Date of Service: 06/22/24 Procedure(s): XR chest 1V Accession Number(s): [id number] cc: Carlo Santana MD; Javier Dubois CLINICAL [...] in OV> 06/22/241957 DD/ 55 TD/TT: 06/22/241955 Lithographic Press Operator Apprentice: Procedure Note Donotuseinterpreter, Image - 06/22/2024 [place] [address] XRay Report Signed Patient: Peri Sandy MMR#: [id number] 338 : 1980Acct:[id number] Age/Sex: 43 / FADM Date: 06/22/24 Loc: .ED Attending Dr: Ordering Physician: Javier Dubois Date of Service: 06/22/24 Procedure(s): XR chest 1V Accession Number(s): [id number] cc: Carlo Santana MD; Javier Dubois CLINICAL [...] in OV> 06/22/241957 DD/ 55 TD/TT: 06/22/241955 Lithographic Press Operator Apprentice: [facility] External Provider IMG XR PROCEDURES Edited Result - Final * CT Head w/o Contrast (06/22/2024 7:16 PM EDT) Anatomical Region Laterality Modality Head, Neck Computed Tomogra phy 06/22/2024 7:16 PM EDT Narrative 06/22/2024 7:18 PM EDT [place] [address] [address] Scan Report Signed Patient: Peri Sandy MR#: [id number] 338 : 1980 Acct:[id number] Age/Sex: 43 / F ADM Date: 06/22/24 Loc: HO.ED Attending Dr: Ordering Physician: Javier Dubois Date of Service: 06/22/24 Procedure(s): CT head/brain wo IV con Accession Number(s): [id number] cc: Carlo Santana MD; Javier Dubois Report Number: [id number]: Total DLP = 967.00 mGy-cm CLINICAL HISTORY: [...] in OV> 06/22/241917 DD/ 15 TD/TT: 06/22/241915 Lithographic Press Operator Apprentice: Procedure Note Donotuseinterpreter, Image - 06/22/[address] [address] [address] Scan Report Signed Patient: Peri Sandy MMR#: [id number] 338 : 1980Acct:[id number] Age/Sex: 43 / FADM Date: 06/22/24 Loc: HO.ED Attending Dr: Ordering Physician: Javier Dubois Date of Service: 06/22/24 Procedure(s): CT head/brain wo IV con Accession Number(s): [id number] cc: Carlo Santana MD; Javier Dubois Report Number: [id number]: Total DLP = 967.00 mGy-cm CLINICAL HISTORY: [...] This document has been electronically signed by: Liusito Goldman MD on 06/22/2024 19:16:59 Dictated By: Luisito Goldman MD Signed By: <Electronically signed by Luisito Goldman MD in OV> 06/22/241917 DD/ 15 TD/TT: 06/22/241915 Lithographic Press Operator Apprentice: [facility] External Provider IMG CT PROCEDURES Edited Result - Final documented in this encounter Visit Diagnoses Diagnosis Chronic left-sided low back pain with left-sided sciatica documented in this encounter Additional Health Concerns Assessment Noted Time PHQ-9 Depression Total Score: 15 01/25/ 024 11:50 AM EST documented as of this encounter Care Teams Process Control Board Operator Relationship Specialty Start Date End Date Carlo Santana MD 505 [place] [address] PCP - General Internal Medicine 12/28/17 documented as of this encounter
--- OUTSIDE RECORDS SUMMARY | 2024-12-12 12:33 | XMS_ITS | Encounter Summary ---
Author Organization [employer] Address 75 [facility] 7t [place] [address] Care Team Providers Care Cnc Field Service Engineer Name Role Phone Carlo Santana MD Primary Care Provider [phone] Reason for Visit * Reason Onset Date Comments Med Change Request 09/14/2023 Encounter Details Date Type Department Care Team ([facility] Contact Info) Description 09/14/2023 Telephone [facility] MED & PEDS 505 [place] [address] Carlo Santana MD 505 [place] [address] Med Change Request Social History Tobacco Use [...] in the morning. Please contact pt at [phone] documented in this encounter Plan of Treatment Upcoming Encounters Date Type Department Care Team (Late st Contact Info) Description 01/02/2025 2:15 PM EDT Clinical Support [facility] CHC MED & PEDS 505 [place] [address] Fariba Gandhi, RN 505 [place] [address] documented as of this encounter Visit Diagnoses Not on filedocumented in this encounter Additional Health Concerns Assessment Noted Time PHQ-9 Depression Total Score: 3 06/04/19 23 3:42 PM EDT documented as of this encounter Care Teams Cnc Field Service Engineer Relationship Specialty Start Date End Date Carlo Santana MD 505 [place] [address] PCP - General Internal Medicine 12/28/17 documented as of this encounter
--- OUTSIDE RECORDS SUMMARY | 2024-12-12 12:33 | XMS_ITS | Encounter Summary ---
Author Organization [employer] Address 75 [facility] 7t [place] [address] Care Team Providers Care Volunteer Manager Name Role Phone Carlo Santana MD Primary Care Provider [phone] Reason for Visit * Reason Onset Date Comments Med Refill 11/19/2024 Encounter Details Date Type Department Care Team ([facility] Contact Info) Description 11/19/2024 Telephone [facility] 505 [place] [address] Carlo Santana MD 505 [place] [address] Med Refill Social History Tobacco Use Types [...] Miscellaneous Notes * Telephone Encounter - April Beard LPN - 11/19/2024 9:01 AM EDT Medication was sent to [facility] on 11/13/24 with 3 refills. * Telephone Encounter - Francesca Solares - 11/19/2024 8:59 AM EDT TC from pt requesting medication refill. Medications needing refill : tiZANidine (Zanaflex) 4 MG tablet To be sent to: [facility] - LEATHA Leblanc - [address] documented in this encounter Plan of Treatment Upcoming Encounters Date Type Department Care Team (Late st Contact Info) Description 01/02/2025 2:15 PM EDT Clinical Support [facility]EDS [address] [place] [address] Fariba Gandhi, RN [address] [place] [address] documented as of this encounter Visit Diagnoses Not on filedocumented in this encounter Additional Health Concerns Assessment Noted Time PHQ-9 Depression Total Score: 6 08/22/19 25 10:16 AM EDT documented as of this encounter Care Teams Volunteer Manager Relationship Specialty Start Date End Date Carlo Santana MD [address] [place] [address] PCP - General Internal Medicine 12/28/17 documented as of this encounter
--- OUTSIDE RECORDS SUMMARY | 2024-12-12 12:33 | XMS_ITS | Encounter Summary ---
Author Organization [employer] Address [address] [facility] [address] 7t [place] [address] Care Team Providers Care Laborer Tanbark Name Role Phone Carlo Santana MD Primary Care Provider [phone] Reason for Visit * Reason Onset Date Comments Referral 07/25/2023 Encounter Details Date Type Department Care Team ([facility] st Contact Info) Description 07/25/2023 Telephone [facility] MEDICINE [address] [place] [address] Carlo Santana MD [address] [place], [place] [phone] Referral Social History Tobacco Use Types Packs/Day [...] in regards to moving pain management to [facility] in [place]. Pt stated she called the [place] office and it didn't go well. States [...] with switching locations. Please contact pt at [phone] * Telephone Encounter - Rand Savage RN - 07/28/2023 2:55 PM EDT Returned call to pt regarding message below. Pt stated she did not say another referral to Urology she said pain management. Pt is currently seen Pain management in [place] and has tried two different doctors. The first one told her her pain was in her head, and was very rude and dismissive. The socond doctor, she stated was no well prepared for her visit and not aware of what she has tried and not tried. I advised pt that if she decides to go with a different location, the wait times for FIRE TECHNOLOGY INSTRUCTOR appts can be lengthy. Pt advised if maybe she can try to resolve issues directly with this office so there won't be a lapse in care. Pt states she will call [place] office and speak to their technical manager andsee if maybe she can try another provider. Pt advised to call their office and based on response they give her she can think about it and decide and speak with PCP next on appt. Pt agrees with plan. Will send to PCP as FYI and if pt does decide she will wants to switch she would like a location in [place]. * Telephone Encounter - Quan Mena - 07/25/2023 3:01 PM EDT Tc from pt calling in regards to urology referral, stating she's not satisfied with care and would like to change location. Pt is requesting to be referred to [facility] instead pt provided location [address] If nay questions you can contact pt at [phone]. documented in this encounter Plan of Treatment Upcoming Encounters Date Type Department Care Team ([facility] st Contact Info) Description 01/02/2025 2:15 PM EDT Clinical Support [facility] CHC MED & PEDS [address] [place] [address] Fariba Gandhi RN 505 [place] [address] documented as of this encounter Visit Diagnoses Not on filedocumented in this encounter Additional Health Concerns Assessment Noted Time PHQ-9 Depression Total Score: 3 06/04/19 23 3:42 PM EDT documented as of this encounter Care Teams Laborer Tanbark Relationship Specialty Start Date End Date Cralo Santana MD 505 [place] [address] PCP - General Internal Medicine 12/28/17 documented as of this encounter
--- OUTSIDE RECORDS SUMMARY | 2024-12-12 12:33 | XMS_ITS | Encounter Summary ---
Author Organization [employer] Address [address] [place] [address] 7t [place] [address] Care Team Providers Care Live Hanger Name Role Phone Carlo Santana MD Primary Care Provider [phone] Reason for Visit * Reason Comments Med Refill Encounter Details Date Type Department Care Team ([facility] Contact Info) Description 11/11/2024 Refill [facility] CHC MED & PEDS [address] [place], [place] [phone] Carlo Santana MD 505 [place] [address] Chronic left shoulder pain; Muscle spasm Social History Tobacco Use Types [...] Upcoming Encounters Date Type Department Care Team ([facility] st Contact Info) Description 01/02/2025 2:15 PM EDT Clinical Support [facility] MED & PEDS 505 [place] [address] Fariba Gandhi, HUGO 505 [place] [address] documented as of this encounter Visit Diagnoses Diagnosis Chronic left shoulder pain Pain in joint, shoulder region Muscle spasm Spasm of muscle documented in this encounter Additional Health Concerns Assessment Noted Time PHQ-9 Depression Total Score: 6 08/22/19 25 10:16 AM EDT documented as of this encounter Care Teams Live Hanger Relationship Specialty Start Date End Date Carlo Santana MD 505 [place] [address] PCP - General Internal Medicine 12/28/17 documented as of this encounter
--- OUTSIDE RECORDS SUMMARY | 2024-12-12 12:33 | XMS_ITS | Encounter Summary ---
Author Organization [employer] Address 75 [facility] 7t [place] [address] Care Team Providers Care Manager Recruitment Name Role Phone Carlo Santana MD Primary Care Provider [phone] Encounter Details Date Type Department Care Team ([facility] st Contact Info) Description 08/17/2023 Orders Only [facility] CHC MED & PEDS [address] [place], [place] [phone] Carlo Santana MD 505 [place], [place] [phone] Bipolar affective disorder, remission status unspecified (CMS/HCC) [...] Description 01/02/2025 2:15 PM EDT Clinical Support [facility] MED & PEDS [address] [place] [address] Fariba Gandhi, HUGO 505 [place] [address] documented as of this encounter Visit Diagnoses Diagnosis Bipolar affective disorder, remission status unspecified (CMS/HCC) ([facility])- Primary documented in this encounter Additional Health Concerns Assessment Noted Time PHQ-9 Depression Total Score: 3 06/04/19 23 3:42 PM EDT documented as of this encounter Care Teams Manager Recruitment Relationship Specialty Start Date End Date Carlo Santana MD [address] [place] [address] PCP - General Internal Medicine 12/28/17 documented as of this encounter
--- OUTSIDE RECORDS SUMMARY | 2024-12-12 12:33 | XMS_ITS | Encounter Summary ---
Author Organization [employer] Address [address] [facility] [address] 7t [place] [address] Care Team Providers Care Director Supplier Quality Name Role Phone Carlo Santana MD Primary Care Provider [phone] Reason for Visit * Reason Onset Date Comments Results 01/03/2024 Encounter Details Date Type Department Care Team ([facility] st Contact Info) Description 01/03/2024 Telephone [facility] MEDICINE [address] [place] [address] Carlo Santana MD [address] [facility] [address] [place], [place] [phone] Results Social History Tobacco Use Types Packs/Day [...] borderline values. THIS TEST WAS PERFORMED AT: [employer]/[facility] [address] [place] [address] CHERYL MOLINA MD,PHD,BATSHEVA Dr. Santana, This is the results found on [email or web address] for pt recent Calprotectin stool testing. Pt would like a call back with the interpretation of the results. * Telephone Encounter - Quan Mena - 01/03/2024 11:01 AM EDT TC from pt requesting call back regarding Results. Type of results: Labs Date when done: 12/24/23 Facility: [facility] labs documented in this encounter Plan of Treatment Upcoming Encounters Date Type Department Care Team (Late st Contact Info) Description 01/02/2025 2:15 PM EDT Clinical Support [facility] CHC MED & PEDS 505 [place] [address] Fariba Gandhi RN 505 [place] [address] documented as of this encounter Visit Diagnoses Not on filedocumented in this encounter Additional Health Concerns Assessment Noted Time PHQ-9 Depression Total Score: 3 06/04/19 23 3:42 PM EDT documented as of this encounter Care Teams Director Supplier Quality Relationship Specialty Start Date End Date Carlo Santana MD 505 [place] [address] PCP - General Internal Medicine 12/28/17 documented as of this encounter
--- OUTSIDE RECORDS SUMMARY | 2024-12-12 12:33 | XMS_ITS | Encounter Summary ---
Author Organization [employer] Address 75 [facility] 7t h Floor [address] Care Team Providers Care Biometric Fingerprinting Technician Name Role Phone Carlo Santana MD Primary Care Provider [phone] Encounter Details Date Type Department Care Team ([facility] st Contact Info) Description 01/06/2024 Orders Only [facility] CHC MED & PEDS 505 [place], [place] [phone] Carlo Santana MD 505 [place], [place] [phone] Diarrhea, unspecified type (Primary Dx); Chronic left-sided [...] 01/02/2025 2:15 PM EDT Clinical Support [facility] MED & PEDS 505 [place] [address] Fariba Gandhi RN 505 [place] [address] Scheduled Orders Name Type Priority Associated Diagnoses [...] Protein <0.10 < or = 0.50 mg/dL [facility] Blood Venous blood specimen / Unknown 01/06/2024 1:18 PM EDT 01/06/2024 2:16 PM EDT Carlo Santana MD LAB BLOOD ORDERABLES Final Result [facility] [address] [place] [address] [phone] documented in this encounter Visit Diagnoses Diagnosis Diarrhea, unspecified type- Primary Chronic left-sided low back pain with left-sided sciatica documented in this encounter Additional Health Concerns Assessment Noted Time PHQ-9 Depression Total Score: 3 06/04/19 23 3:42 PM EDT documented as of this encounter Care Teams Biometric Fingerprinting Technician Relationship Specialty Start Date End Date Carlo Santana MD [address] [place] [address] PCP - General Internal Medicine 12/28/17 documented as of this encounter
--- OUTSIDE RECORDS SUMMARY | 2024-12-12 12:33 | XMS_ITS | Encounter Summary ---
Author Organization [email or web address] Address 75 [facility] 7t [place] [address] Care Team Providers Care Supervisor Aircraft Maintenance Name Role Phone Carlo Santana MD Primary Care Provider [phone] Encounter Details Date Type Department Care Team ([facility] st Contact Info) Description 04/03/2024 Telephone [facility] MEDICINE [address] [place] [address] Carlo Santana MD 505 [place], [place] [phone] Social History Tobacco Use Types Packs/Day Years [...] Description 01/02/2025 2:15 PM EDT Clinical Support [facility] MED & PEDS 505 [place] [address] Fariba Gandhi, HUGO 505 [place] [address] documented as of this encounter Visit Diagnoses Not on filedocumented in this encounter Additional Health Concerns Assessment Noted Time PHQ-9 Depression Total Score: 15 024 11:50 AM EST documented as of this encounter Care Teams Supervisor Aircraft Maintenance Relationship Specialty Start Date End Date Carlo Santana MD 505 [place] [address] PCP - General Internal Medicine 12/28/17 documented as of this encounter
--- OUTSIDE RECORDS SUMMARY | 2024-12-12 12:33 | XMS_ITS | Encounter Summary ---
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-sided sciatica Lumbar radiculopathy Chronic right-sided low back pain with right-sided sciatica Carlo Santana MD 505 [place] [address] Phone: tel: fax: [facility] [address] [place] [address] Phone: tel: fax: Referral ID Status Reason Start Date Expiration Date V isits Requested Visits Authorized [id number] Closed Specialty Services Required 07/29/2023 07/28/2024 1 1 Encounter Details Date Type Department Care Team ([facility] st Contact Info) Description 07/29/2023 Orders Only [facility] CHC MED & PEDS 505 [place] [address] Carlo Santana MD 505 [place] [address] Chronic left-sided low back pain with left-sided [...] AM EDT documented as of this encounter Functional Status * Over the last 2 weeks, how often have you been bothered by any of the following problems? Question Answer Date of Assessment Author Feeling nervous, anxious, or on edge 3 08/01/2023 3:07 PM EDT Angelique Castro ctoria Not being able to stop or control worrying 3 08/01/2023 3:07 PM EDT Angelique Castro ctoria Worrying too much about different things 3 08/01/2023 3:07 PM EDT Angelique Castro ctnghia Trouble relaxing 2 08/01/2023 3:07 PM EDT Sheila Alanis Being so restless that it is hard to sit still 2 08/01/2023 3:07 PM EDT Angelique Castro ctnghia Becoming easily annoyed or irritable 2 08/01/2023 3:07 PM EDT Angelique Castro ctoria Feeling afraid as if somethi ng awful might happen 3 08/01/2023 3:07 PM EDT Angelique Castro ctoria VALENTINA-7 Total Score 18 08/01/2023 3:07 PM EDT Sheila Castro documented as of this encounter Plan of Treatment Upcoming Encounters Date Type Department Care Team (Late st Contact Info) Description 01/02/2025 2:15 PM EDT Clinical Support [facility] MED & PEDS 505 [place] [address] Fariba Gandhi RN 505 [place] [address] Scheduled Referrals Name Type Priority Associated Diagnoses [...] documented as of this encounter Care Teams Waste Water Operator Relationship Specialty Start Date End Date Carlo Santana MD 505 [place] [address] PCP - General Internal Medicine 12/28/17 documented as of this encounter
--- OUTSIDE RECORDS SUMMARY | 2024-12-12 12:33 | XMS_ITS | Encounter Summary ---
Author Organization [employer] Address 75 [facility] 7t [place] [address] Care Team Providers Care Screw Machine Tender Name Role Phone Carlo Santana MD Primary Care Provider [phone] Reason for Visit * Reason Onset Date Comments Med Refill 07/30/2024 Encounter Details Date Type Department Care Team ([facility] st Contact Info) Description 07/30/2024 Telephone [facility] MEDICINE [address] [place] [address] Carlo Santana MD 505 [place], [place] [phone] Med Refill Social History Tobacco Use Types [...] Telephone Encounter - April Beard LPN - 07/30/2024 8:42 AM EDT Both medications requested have refills. * Telephone Encounter - Patricia Espinal - 07/30/2024 8:31 AM EDT TC from pt requesting medication refill. Medications needing refill : lidocaine (Lidoderm) 5 % patch lidocaine (Xylocaine) 5 % ointment To be sent to: [facility]/pharmacy #[id number] LEATHA PHILLIPS - [id number] [facility] documented in this encounter Plan of Treatment Upcoming Encounters Date Type Department Care Team ([facility] st Contact Info) Description 01/02/2025 2:15 PM EDT Clinical Support [facility] CHC MED & PEDS 505 [place] [address] Fariba Gandhi, RN 505 [place] [address] documented as of this encounter Visit Diagnoses Not on filedocumented in this encounter Additional Health Concerns Assessment Noted Time PHQ-9 Depression Total Score: 15 024 11:50 AM EST documented as of this encounter Care Teams Screw Machine Tender Relationship Specialty Start Date End Date Carlo Santana MD [address] [place] [address] PCP - General Internal Medicine 12/28/17 documented as of this encounter
--- OUTSIDE RECORDS SUMMARY | 2024-12-12 12:33 | XMS_ITS | Encounter Summary ---
Author Organization [employer] Address [address] [place] [address] 7t [place] [address] Care Team Providers Care Iron Miner Name Role Phone Carlo Santana MD Primary Care Provider [phone] Reason for Visit * Reason Onset Date Comments PA 01/31/2024 Encounter Details Date Type Department Care Team ([facility] Contact Info) Description 01/31/2024 Telephone [facility] CHC MED & PEDS 505 [place] [address] Carlo Santana MD 505 [place] [address] PA Social History Tobacco Use Types Packs/Day [...] ([facility] st Contact Info) Description 01/02/2025 2:15 PM EDT Clinical Support [facility] CHC MED & PEDS 505 [place] [address] Fariba Gandhi RN 505 [place] [address] documented as of this encounter Visit Diagnoses Not on filedocumented in this encounter Additional Health Concerns Assessment Noted Time PHQ-9 Depression Total Score: 15 024 11:50 AM EST documented as of this encounter Care Teams Iron Miner Relationship Specialty Start Date End Date Carlo Santana MD 505 [place] [address] PCP - General Internal Medicine 12/28/17 documented as of this encounter
--- OUTSIDE RECORDS SUMMARY | 2024-12-12 12:34 | XMS_ITS | Encounter Summary ---
Author Organization [employer] Address 75 [facility] 7t [place] [address] Care Team Providers Care Lidar Scientist Name Role Phone Carlo Santana MD Primary Care Provider [phone] Reason for Visit * Reason Comments Med Refill Encounter Details Date Type Department Care Team ([facility] st Contact Info) Description 01/16/2023 Refill [facility] MEDICINE [address] [place] [address] Carlo Santana MD [address] [facility] [address] [place], [place] [phone] Muscle spasm Social History Tobacco Use Types [...] Description 01/02/2025 2:15 PM EDT Clinical Support [facility] CH[facility] MED & PEDS 505 [place] [address] Fariba Gandhi, HUGO 505 [place] [address] documented as of this encounter Visit Diagnoses Diagnosis Muscle spasm Spasm of muscle documented in this encounter Additional Health Concerns Assessment Noted Time PHQ-9 Depression Total Score: 3 06/04/19 23 3:42 PM EDT documented as of this encounter Care Teams Lidar Scientist Relationship Specialty Start Date End Date Carlo Santana MD 505 [place] [address] PCP - General Internal Medicine 12/28/17 documented as of this encounter
--- OUTSIDE RECORDS SUMMARY | 2024-12-12 12:34 | XMS_ITS | Encounter Summary ---
Author Organization [employer] Address [address] [place] [address] 7 [place] [address] Care Team Providers Care Dye Colorist Dyer Name Role Phone Carlo Santana MD Primary Care Provider [phone] Encounter Details Date Type Department Care Team (Late st Contact Info) Description 11/03/2022 Orders Only [facility] CHC MED & PEDS 505 [place], [place] [phone] Carlo Sanatna MD 505 [place] [address] Obesity (BMI 30-39.9) (Primary Dx); Chronic left-sided [...] Description 01/02/2025 2:15 PM EDT Clinical Support [facility] MED & PEDS 505 [place] [address] Fariba Gandhi, RN 505 [place] [address] documented as of this encounter Visit Diagnoses Diagnosis Obesity (BMI 30-39.9)- Primary Chronic left-sided low back pain with left-sided sciatica documented in this encounter Additional Health Concerns Assessment Noted Time PHQ-9 Depression Total Score: 3 06/04/19 23 3:42 PM EDT documented as of this encounter Care Teams Dye Colorist Dyer Relationship Specialty Start Date End Date Carlo Santana MD 505 [place] [address] PCP - General Internal Medicine 12/28/17 documented as of this encounter
--- OUTSIDE RECORDS SUMMARY | 2024-12-12 12:34 | XMS_ITS | Encounter Summary ---
Author Organization [employer] Address 75 [facility] 7t [place] [address] Care Team Providers Care Stage Manager Name Role Phone Carlo Santana MD Primary Care Provider [phone] Reason for Visit * Reason Onset Date Comments Call Back Request 07/20/2023 Encounter Details Date Type Department Care Team ([facility] st Contact Info) Description 07/20/2023 Telephone [facility] MEDICINE 230 [place] [address] Carlo Santana MD [address] [facility] [address] [place], [place] [phone] Call Back Request Social History Tobacco Use [...] 2:15 PM EDT Clinical Support [facility] MED & PEDS 505 [place] [address] Fariba Gandhi, HUGO 505 [place] [address] documented as of this encounter Visit Diagnoses Not on filedocumented in this encounter Additional Health Concerns Assessment Noted Time PHQ-9 Depression Total Score: 3 06/04/19 23 3:42 PM EDT documented as of this encounter Care Teams Stage Manager Relationship Specialty Start Date End Date Carlo Santana MD 505 [place] [address] PCP - General Internal Medicine 12/28/17 documented as of this encounter
--- OUTSIDE RECORDS SUMMARY | 2024-12-12 12:34 | XMS_ITS | Encounter Summary ---
Author Organization [employer] Address 75 [facility] [address], [place] [address] Care Team Providers Care Senior Systems Programmer Name Role Phone Carlo Santana MD Primary Care Provider [phone] Reason for Referral * Consultation (Routine) - Authorized Specialty Diagnoses / Procedures Referred By Contac t Referred To Contact Physiatry Diagnoses History of fall Chronic left-sided low back pain with left-sided sciatica Carlo Santana MD 505 [place] [address] Phone: tel: fax: [facility] [address] Phone: tel: fax: Referral ID Status Reason Start Date Expiration Date Visits Requested Visits Authorized [id number] Authorized Specialty Services Required 08/29/2024 08/29/2025 1 1 * Neurology (Routine) - Closed Specialty Diagnoses / Procedures Referred By Contac t Referred To Contact Diagnoses History of fall Dizziness Procedures EEG awake or drowsy routine Carlo Santana MD 505 [place] [address] Phone: tel: fax: [address] Phone: tel: fax: Referral ID Status Reason Start Date Expiration Date Visits Re quested Visits Authorized [id number] Closed 08/23/2024 08/23/2025 1 1 Encounter Details Date Type Department Care Team ([facility] st Contact Info) Description 08/23/2024 Orders Only [facility] CHC MED & PEDS 505 [place] [address] Carlo Santana MD 505 [place] [address] History of fall (Primary Dx); Dizziness; Chronic left-sided low back pain with left-sided [...] 01/02/2025 2:15 PM EDT Clinical Support [facility] MED & PEDS 505 [place] [address] Fariba Gandhi, HUGO 505 [place] [address] Scheduled Orders Name Type Priority Associated Diagnoses Orde r Schedule EEG awake or drowsy routine Neurology Routine History of fall Dizziness Expected: 08/23/2024 (Approximate), Expires: 08/23/2025 Scheduled Referrals Name Type Priority Associated Diagnoses Orde r Schedule Referral to Physiatry Outpatient Referral Routine History of fall Chronic left-sided low back pain with left-sided sciatica Expected: 08/29/2024 (Approximate), Expires: 08/29/2025 documented as of this encounter Visit Diagnoses Diagnosis History of fall- Primary Personal history of fall Dizziness Dizziness and giddiness Chronic left-sided low back pain with left-sided sciatica documented in this encounter Additional Health Concerns Assessment Noted Time PHQ-9 Depression Total Score: 6 08/22/19 25 10:16 AM EDT documented as of this encounter Care Teams Senior Systems Programmer Relationship Specialty Start Date End Date Carlo Santana MD 505 [place] [address] PCP - General Internal Medicine 12/28/17 documented as of this encounter
--- OUTSIDE RECORDS SUMMARY | 2024-12-12 12:34 | XMS_ITS | Encounter Summary ---
Author Organization [facility] Address [address] [place] [address] 7 [place] [address] Care Team Providers Care Manager Privacy Name Role Phone Carlo Santana MD Primary Care Provider [phone] Encounter Details Date Type Department Care Team (Latest Contact Info) Description 10/14/2021 Abstract [facility] CONVERSIONS Dental, Provider, DDS Social History [...] Description 01/02/2025 2:15 PM EDT Clinical Support [facility] CHC MED & PEDS 505 [place] [address] Fariba Gandhi, HUGO 505 [place] [address] documented as of this encounter Visit Diagnoses Not on filedocumented in this encounter Care Teams Manager Privacy Relationship Specialty Start Date End Date Carlo Santana MD 505 [place] [address] PCP - General Internal Medicine 12/28/17 documented as of this encounter
--- OUTSIDE RECORDS SUMMARY | 2024-12-12 12:34 | XMS_ITS | Encounter Summary ---
Author Organization [employer] Address [address] [place] [address] 7[address] [place] [address] Care Team Providers Care Ammonia Solution Preparer Name Role Phone Carlo Santana MD Primary Care Provider [phone] Encounter Details Date Type Department Care Team (Latest Contact Info) Description 01/18/2019 Abstract [facility] CONVERSIONS Dental, Provider, DDS Social History Tobacco [...] Description 01/02/2025 2:15 PM EDT Clinical Support [facility] CHC MED & PEDS [address] [place] [address] Fariba Gandhi, HUGO 505 [place] [address] documented as of this encounter Visit Diagnoses Not on filedocumented in this encounter Care Teams Ammonia Solution Preparer Relationship Specialty Start Date End Date Carlo Santana MD 505 [place] [address] PCP - General Internal Medicine 12/28/17 documented as of this encounter
--- OUTSIDE RECORDS SUMMARY | 2024-12-12 12:34 | XMS_ITS | Encounter Summary ---
Author Organization [employer] Address 75 [facility] 7t [place] [address] Care Team Providers Care Medical Laboratory Scientist Name Role Phone Carlo Santana MD Primary Care Provider [phone] Reason for Visit * Reason Comments Med Change Request Encounter Details Date Type Department Care Team ([facility] st Contact Info) Description 09/11/2024 Refill [facility] 230 [place] [address] Carlo Santana MD 505 [place], [place] [phone] Bipolar affective disorder, remission status unspecified (CMS/HCC) [...] ([facility] st Contact Info) Description 01/02/2025 2:15 PM EDT Clinical Support [facility] MED & PEDS 505 [place] [address] Fariba Gandhi, HUGO 505 [place] [address] documented as of this encounter Visit Diagnoses Diagnosis Bipolar affective disorder, remission status unspecified (CMS/HCC) (HCC) documented in this encounter Additional Health Concerns Assessment Noted Time PHQ-9 Depression Total Score: 6 08/22/19 25 10:16 AM EDT documented as of this encounter Care Teams Medical Laboratory Scientist Relationship Specialty Start Date End Date Carlo Santana MD 505 [place] [address] PCP - General Internal Medicine 12/28/17 documented as of this encounter
--- OUTSIDE RECORDS SUMMARY | 2024-12-12 12:34 | XMS_ITS | Clinical Summary ---
Author Organization [employer] Address [address] [place] [address] Care Team Providers Care Interpreter Deaf Name Role Phone Carlo Santana MD Primary Care Provider [phone] Allergies No known active allergies Medications * This document contains information received from the source organization and may not represent a complete record from that organization. naloxone (Narcan) 4 mg/0.1 mL nasal spray Administer 0.1 mL into affected nostril(s). [place] 0.1 milliliter by intranasal route in 1 [...] DAY FOR 30 DAYS 10/17/19 24 Active econazole nitrate 1 % cream APPLY TO AFFECTED AREA TWICE A DAY FOR 21 DAYS 30 g 11 04/09/19 25 Active ferrous sulfate (Fe Tabs) 325 (65 Fe) MG EC tabletIndicati ons:Normocytic anemia Take 1 tablet (325 mg) by mouth with breakfast. Do not crush, chew, or split. 90 tablet 3 04/11/19 25 026 Active acetaminophen (Tylenol) 325 MG tabletIndicati ons:Chronic [...] 10 DAYS. 30 capsule 06/08/19 25 Active oxyCODONE-acet aminophen (Percocet) 7.5-325 MG tabletIndicati ons:Chronic left-sided low back pain with left-sided sciatica Take 1 tablet by mouth every 6 (six) hours if needed for severe pain. 112 tablet 06/15/19 25 Active loperamide (Imodium) 2 MG capsuleIndicat ions:Diarrhea, unspecified type TAKE 1 CAPSULE (2 MG) BY MOUTH IF NEEDED IN THE MORNING, AT NOON, IN THE EVENING, AND AT BEDTIME FOR DIARRHEA. 30 capsule 2 07/04/19 25 Active amitriptyline (Elavil) 10 MG tabletIndicati ons:Diarrhea, unspecified type TAKE 1 TABLET BY MOUTH EVERY NIGHT AT BEDTIME. 90 tablet 08/01/19 25 Active clonazePAM (KlonoPIN) 1 MG tabletIndicati ons:[place] (generalized anxiety disorder) TAKE 1 TABLET (1 MG) BY MOUTH EVERY DAY NEEDED FOR ANXIETY 30 tablet 09/19/19 25 Active cyclobenzaprin e (Flexeril) 10 MG tablet Take 1 tablet (10 mg) by mouth 2 times daily. 60 tablet 10/04/19 25 Active clonazePAM (KlonoPIN) 1 MG tabletIndicati ons:[place] (generalized anxiety disorder) Take 1 tablet (1 mg) by mouth if needed each day for anxiety. Do not start before October 17, 2024. 30 tablet 10/18/19 25 Active hydrOXYzine pamoate (Vistaril) 50 MG capsuleIndicat ions:Bipolar affective disorder, remission status unspecified ([facility]) ([facility]) TAKE 1 CAPSULE BY MOUTH EVERY 8 HOURS IF NEEDED FOR ITCHING 270 capsule 10/27/19 25 Active albuterol 108 (90 Base) MCG/ACT inhalerIndicat ions:SOB (shortness of breath) INHALE 2 PUFFS BY MOUTH EVERY 4 HOURS NEEDED FOR WHEEZING 18 g 11/01/19 25 Active Nutritional Supplements (Boost High Protein) liquidIndicati ons:Hypoprotei nemia ([facility]) DRINK 1 CAN TWICE DAILY 5688 mL 11 11/03/19 25 Active ziprasidone (Geodon) 80 MG capsuleIndicat ions:Bipolar affective disorder, remission status unspecified ([facility]) ([facility]) Take 1 capsule (80 mg) by mouth 2 times daily. 60 capsule 2 11/08/19 25 Active clonazePAM (KlonoPIN) 1 MG tabletIndicati ons:[place] (generalized anxiety disorder) Take 1 tablet (1 mg) by mouth Once per day. Do not start before November 16, 2024. 30 tablet 11/17/19 25 Active hydrOXYzine pamoate (Vistaril) 50 MG capsuleIndicat ions:Anxiety Take 1 capsule (50 mg) by mouth every 8 (eight) hours if needed for itching for up to 10 days. 90 capsule 2 11/21/19 25 Active lidocaine (Lidoderm) 5 % patchIndicatio ns:Chronic left-sided low back pain with left-sided sciatica APPLY 3 PATCHES TOPICALLY EVERY DAY REMOVE AND DISCARD PATCH WITHIN 12 HOURS. 90 patch 3 11/21/19 25 Active tiZANidine (Zanaflex) 4 MG tabletIndicati ons:Chronic left-sided low back pain with left-sided sciatica TAKE 1 TABLET BY MOUTH EVERY 6 HOURS NEEDED FOR MUSCLE SPASMS FOR UP TO 10 DAYS 90 tablet 3 11/21/19 25 Active econazole nitrate 1 % cream Apply topically Once per day. Active econazole nitrate 1 % creamIndicatio ns:Seborrheic dermatitis Apply topically Once per day. 30 g 1 11/23/19 25 026 Active ondansetron (Zofran) 4 MG tablet TAKE 2 TABLETS BY MOUTH EVERY 8 HOURS NEEDED FOR NAUSEA AND VOMITING 30 tablet 3 11/23/19 25 Active econazole nitrate 1 % creamIndicatio ns:Seborrheic dermatitis Apply topically Once per day. 30 g 11/23/19 25 026 Active DULoxetine (Cymbalta) [address] capsule TAKE 1 CAPSULE BY MOUTH TWICE A DAY. DO NOT CRUSH OR CHEW. 180 capsule 12/04/19 25 Active ascorbic acid (Vitamin C) 500 MG tabletIndicati ons:Laceration of nose without foreign body, initial encounter TAKE 1 TABLET BY MOUTH EVERY DAY 90 tablet 1 12/04/19 25 Active cholecalcifero l (Vitamin D3) 25 MCG (1000 UT) tablet TAKE 1 TABLET BY MOUTH EVERY DAY 90 tablet 1 12/04/19 25 Active celecoxib (CeleBREX) 200 MG capsuleIndicat ions:Chronic left shoulder pain,Muscle spasm TAKE 1 CAPSULE BY MOUTH IN THE MORNING AND AT BEDTIME NEEDED FOR MODERATE PAIN 60 capsule 12/04/19 25 Active oxyCODONE (Roxicodone) 10 MG immediate release tabletIndicati ons:Chronic left-sided low back pain with left-sided sciatica Take 1 tablet (10 mg) by mouth every 8 (eight) hours if needed for severe pain for up to 28 days. Do not start before December 19, 2024. 84 tablet 12/20/19 25 025 Active ondansetron (Zofran) 4 MG tablet TAKE 2 TABLETS BY MOUTH EVERY 8 HOURS NEEDED FOR NAUSEA AND VOMITING 30 tablet 3 07/04/19 25 025 Discontinued(R eorder (will not trigger notification to Pharmacy)) clonazePAM (KlonoPIN) 1 MG tabletIndicati ons:[place] (generalized anxiety disorder) Take 1 tablet (1 mg) by mouth Once per day. 30 tablet 07/10/19 25 025 Discontinued(R eorder (will not trigger notification to Pharmacy)) ascorbic acid (Vitamin C) 500 MG tabletIndicati ons:Laceration of nose without foreign body, initial encounter Take 1 tablet (500 mg) by mouth Once per day. 30 tablet 11 09/07/19 25 025 Discontinued(R eorder (will not trigger notification to Pharmacy)) cholecalcifero l (Vitamin D3) 25 MCG (1000 UT) tablet TAKE 1 TABLET BY MOUTH EVERY DAY 90 tablet 09/19/19 025 Discontinued(R eorder (will not trigger notification to Pharmacy)) DULoxetine (Cymbalta) [address] capsule TAKE 1 CAPSULE BY MOUTH TWICE A DAY. DO NOT CRUSH OR CHEW. 180 capsule 10/23/19 25 025 Discontinued(R eorder (will not trigger notification to Pharmacy)) oxyCODONE (Roxicodone) 10 MG immediate release tabletIndicati ons:Chronic left-sided low back pain with left-sided sciatica Take 1 tablet (10 mg) by mouth every 8 (eight) hours if needed for severe pain for up to 28 days. 84 tablet 10/27/19 25 025 Discontinued(R eorder (will not trigger notification to Pharmacy)) lidocaine (Lidoderm) 5 % patchIndicatio ns:Chronic left-sided low back pain with left-sided sciatica APPLY 2 PATCHES TOPICALLY EVERY DAY REMOVE AND DISCARD PATCH WITHIN 12 HOURS. 60 patch 3 11/01/19 25 025 Discontinued(O ther) celecoxib (CeleBREX) 200 MG capsuleIndicat ions:Chronic left shoulder pain,Muscle spasm TAKE 1 CAPSULE BY MOUTH IN THE MORNING AND AT BEDTIME NEEDED FOR MODERATE PAIN 60 capsule 11/10/19 25 025 Discontinued(R eorder (will not trigger notification to Pharmacy)) tiZANidine (Zanaflex) 4 MG tabletIndicati ons:Chronic left-sided low back pain with left-sided sciatica TAKE 1 TABLET BY MOUTH EVERY 6 HOURS NEEDED FOR MUSCLE SPASMS FOR UP TO 10 DAYS 30 tablet 11/10/19 25 025 Discontinued tiZANidine (Zanaflex) 4 MG tabletIndicati ons:Chronic left-sided low back pain with left-sided sciatica TAKE 1 TABLET BY MOUTH EVERY 6 HOURS NEEDED FOR MUSCLE SPASMS FOR UP TO 10 DAYS 30 tablet 3 11/14/19 25 025 Discontinued(R eorder (will not trigger notification to Pharmacy)) oxyCODONE (Roxicodone) 10 MG immediate release tabletIndicati ons:Chronic left-sided low back pain with left-sided sciatica Take 1 tablet (10 mg) by mouth every 8 (eight) hours if needed for severe pain for up to 28 days. Do not start before November 22, 2024. 84 tablet 11/23/19 25 025 Discontinued(R eorder (will not trigger notification to Pharmacy)) econazole nitrate 1 % creamIndicatio ns:Seborrheic dermatitis Apply topically Once per day. 30 g 2 11/22/19 25 025 Discontinued(R eorder (will not trigger [...] the last 15 years. Now engaged with [facility] for OP, and waiting to be connected with psych provider. Severe anxiety is interfering with daily activities and affecting her interpersonal relationships. PLAN: (check all that apply) Continue with current services (defined as services in the past 12 months) Behavioral Health Integration Plan Patient Self Plan Patient to utilize skills provided in intervention , Patient to reach out to [facility] team as needed, Patient to engage in OP therapy , and Patient to reach out to [facility] as needed. Pt reports being connected with [facility] for individual therapy. She completed third OP session and was added to wait list for psych provider within [facility]. Mixed stress and urge urinary incontinence [...] Very poor mobility 08/26/2022 Borderline personality disorder (CMS/HCC) 2022 Insomnia 07/06/2022 Bipolar disorder 07/06/2022 Assessment & [...] the last 15 years. Now engaged with [facility] for OP, and waiting to be connected with psych provider. Severe anxiety is interfering with daily activities and affecting her interpersonal relationships. PLAN: (check all that apply) Continue with current services (defined as services in the past 12 months) Behavioral Health Integration Plan Patient Self Plan Patient to utilize skills provided in intervention , Patient to reach out to [facility] team as needed, Patient to engage in OP therapy , and Patient to reach out to [facility] as needed. Pt reports being connected with [facility] for individual therapy. She completed third OP session and was added to wait list for psych provider within [facility]. Obesity with body mass index 30 [...] Encounters Date Type Department Care Team Description 12/06/[address] [phone] Carlo Santana MD Med Refill 12/06/[address] [address] Carlo Santana MD Med Refill 12/04/[address] [address] Carlo Santana MD 12/03/2024 Refill [facility] [address] [place] [address] Carlo Santana MD Chronic left-sided low back pain with left-sided sciatica 12/03/2024 Refill [facility] [address] [place] [address] Carlo Santana MD Laceration of nose without foreign body, initial encounter; Chronic left shoulder pain; Muscle spasm 11/22/[address] [address] Carlo Pinto MD 11/21/2024 Orders Only [facility] [address] [place] [address] Carlo Santana MD Daily headache (Primary Dx) 11/21/2024 Telephone [facility] [address] [place] [phone] Carlo Santana MD MRI BRAIN ORDER 11/20/2024 11:15 AM EDT Office Visit [facility] [address] [place] [address] Carlo Santana MD Daily headache (Primary Dx); Paresthesia; Anxiety; Chronic left-sided low back pain with left-sided sciatica; Seborrheic dermatitis 11/20/2024 Travel 11/19/2024 Telephone [facility] [address] [place] [address] Carlo Santana MD Chart Prep 11/19/2024 Telephone [facility] [address] [place] [address] Carlo Santana MD Medication Question 11/19/2024 Telephone [facility] [address] [place], [place] [phone] Carlo Santana MD Med Refill 11/16/2024 Refill [facility] [address] [place] [address] Carlo Santana MD Chronic left-sided low back pain with left-sided sciatica 11/13/2024 Refill [facility] [address] [place], [place] [phone] Carlo Santana MD Chronic left-sided low back pain with left-sided sciatica 11/13/2024 Telephone [facility] [address] [place] [address] Carlo Santana MD Med Refill 11/13/2024 Refill [facility] [address] [place] [address] Carlo Santana MD VALENTINA (generalized anxiety disorder) 11/11/2024 Refill [facility] [address] [place] [address] Carlo Santana MD Chronic left shoulder pain; Muscle spasm 11/09/2024 Refill [facility] [address] [place] [address] Carlo Santana MD Chronic left shoulder pain; Muscle spasm; Chronic left-sided low back pain with left-sided sciatica 11/07/2024 Telephone [facility] [address] [place] [address] Carlo Santana MD Med Refill 11/07/2024 Telephone [facility] [address] [place] [address] Carlo Santana MD FYI 11/06/2024 Refill [facility] [address] [place] [address] Carlo Santana MD Chronic left-sided low back pain with left-sided sciatica 11/02/2024 Refill [facility] [address] [place] [address] Carlo Santana MD Hypoproteinemia (CMS/HCC) 10/30/2024 Telephone [facility] [address] [place] [address] Carlo Santana MD Medication Question 10/30/2024 Telephone [facility] [address] [place] [address] Carlo Santana MD Med Refill 10/30/2024 Refill [facility] [address] [place] [address] Carlo Santana MD SOB (shortness of breath); Chronic left-sided low back pain with left-sided sciatica 10/29/2024 Telephone [facility] [address] [place] [address] Carlo Santana MD Med Refill 10/26/2024 Orders Only [facility] [address] [place] [address] Carlo Santana MD Chronic left-sided low back pain with left-sided sciatica 10/26/2024 Refill [facility] [address] [place] [address] Carlo Santana MD Chronic left-sided low back pain with left-sided sciatica 10/26/2024 Telephone [facility] [address] [place] [address] Carlo Santana MD Nurse Triage 10/26/2024 Telephone [facility] [address] [place] [address] Carlo Santana MD Med Refill 10/25/2024 Telephone [facility] [address] [place] [address] Carlo Santana MD Medication Question 10/25/2024 Refill [facility] [address] [place] [address] Carlo Santana MD Bipolar affective disorder, remission status unspecified ([facility]/HCC) 10/25/2024 Telephone [facility] [address] [place] [address] Carlo Santana MD Med Refill 10/25/2024 Refill [facility] [address] [place], [place] [phone] Carlo Santana MD Bipolar affective disorder, remission status unspecified ([facility]/HCC); Chronic left-sided low back pain with left-sided sciatica 10/23/2024 Telephone [facility] [address] [place], [place] [phone] Carlo Santana MD Medication Question 10/23/2024 Refill [facility] [address] [place], [place] [phone] Carlo Santana MD SOB (shortness of breath) 10/23/2024 Refill [facility] [address] [place], [place] [phone] Carlo Santana MD Chronic left shoulder pain; Rib pain; Chronic left-sided low back pain with left-sided sciatica; Neck pain 10/22/2024 Telephone [facility] [address] [place], [place] [phone] Carlo Santana MD no show 10/22/2024 Telephone [facility] [address] [place], [place] [phone] Carlo Santana MD Referral 10/22/2024 Refill [facility] [address] [place], [place] [phone] Carlo Santana MD Chronic left-sided low back pain with left-sided sciatica 10/22/2024 Refill [facility] [address] [place], [place] [phone] Carlo Santana MD 10/19/2024 Refill [facility] [address] [place], [place] [phone] Carlo Santana MD Chronic left-sided low back pain with left-sided sciatica 10/18/2024 Telephone [facility] [address] [place] [address] Carlo Santana MD Nurse Triage 10/18/2024 Telephone [facility] [address] [place] [address] Carlo Santana MD Med Refill 10/15/2024 Telephone [facility] [address] [place], [place] [phone] Carlo Santana MD Med Refill 10/15/2024 Refill [facility] [address] [place], [place] [phone] Oneal Liu MD Chronic left shoulder pain; Muscle spasm; Chronic left-sided low back pain with left-sided sciatica 10/11/2024 Refill [facility] [address] [place] [address] Carlo Santana MD Bipolar affective disorder, remission status unspecified ([facility]) 10/11/2024 Refill [facility] [address] [place] [address] Carlo Santana MD VAL[place]INA (generalized anxiety disorder) 10/08/2024 10:30 AM EDT Telemedicine [facility] [address] [place] [address] Fariba Gandhi, travel registered nurse pacu right-sided low back pain with right-sided sciatica 10/08/2024 Refill [facility] [address] [place], [place] [phone] Fariba Gandhi, travel registered nurse pacu left-sided low back pain with left-sided sciatica 10/08/2024 Travel 10/04/2024 Telephone [facility] [address] [place] [address] Carlo Santana MD Medication Question 10/03/2024 3:40 PM EDT Office Visit [facility] [address] [place] [address] Nataly Choe MD Severe low back pain (Primary Dx) 10/03/2024 Travel 10/03/2024 Telephone [facility] [address] [place] [address] Carlo Santana MD Nurse Triage 09/28/2024 Orders Only [facility] [address] [place] [address] Carlo Santana MD 09/28/2024 Refill [facility] [address] [place] [address] Kia Zhang MD Chronic left-sided low back pain with left-sided sciatica 09/28/2024 Telephone [facility] [address] [place] [address] Carlo Santana MD Med Refill 09/27/2024 Telephone [facility] [address] [place] [address] Carlo Santana MD Med Refill 09/24/2024 Travel 09/24/2024 Telephone [facility] [address] [place] [address] Carlo Santana MD Med Refill 09/24/2024 Refill [facility] [address] [place] [address] Carlo Santana MD Chronic left-sided low back pain with left-sided sciatica 09/21/2024 Telephone [facility] [address] [place] [address] Carlo Santana MD Medication Question 09/19/2024 Telephone [facility] [address] [place] [address] Carlo Santana MD Appointment Request 09/18/2024 Refill [facility] [address] [place] [address] Carlo Santana MD Chronic left-sided low back pain with left-sided sciatica 09/18/2024 Telephone [facility] [address] [place] [address] Carlo Santana MD Med Refill 09/17/2024 Refill [facility] [address] [place] [address] Carlo Santana MD Chronic left-sided low back pain with left-sided sciatica 09/16/2024 Refill [facility] [address] [place] [address] Carlo Santana MD VALENTINA (generalized anxiety disorder); Laceration of nose without foreign body, initial encounter; Chronic left shoulder pain; Muscle spasm; Tinea pedis of both feet; Chronic left-sided low back pain with left-sided sciatica 09/11/2024 Refill [facility] [address] [place], [place] [phone] Carlo Santana MD Bipolar affective disorder, remission status unspecified ([facility]) 09/11/2024 Refill [facility] [address] [place] [address] Carlo aSntana MD Chronic left-sided low back pain with left-sided sciatica from Last 3 Months Immunizations Immunization Administration Dates Next Due Influenza Whole 11/13/2008 Influenza injectable quadriv alent IIV4 with preservative 12/26/2018,12/30/2017 Influenza injectable quadrivalent preservative f ree 01/17/2023,01/07/2021 Influenza, IIV3, injectable 05/21/2013, 0 Influenza, seasonal, injectable, preservative fr ee 01/26/2024 Moderna Covid-19 Vaccine 12+ 08/10/2020 PPD Test 11/24/2015 Pfizer Covid-19 Vaccine + 01/26/2024 Td (adult), unspecified 11/13/2008 Tdap 01/18/2018,05/21/2013 [...] Sign Reading Time Taken Comments Blood Pressure 142/91 11/20/2024 11:24 AM EDT Pulse 75 11/20/2024 11:24 AM EDT Temperature 36.5 C (97.7 F) 11/20/2024 11:24 AM EDT Respiratory Rate 20 11/20/2024 11:24 AM EDT Oxygen Saturation 98% 11/20/2024 11:24 AM EDT Inhaled Oxygen Concentration - - Weight 68 kg (150 lb) 11/20/2024 11:24 AM EDT Height 160 cm (5' 3 ) 11/20/2024 11:24 AM EDT Body Mass Index 26.57 11/20/2024 11:24 AM EDT Plan of Treatment Upcoming Encounters Date Type Department Care Team ([facility] st Contact Info) Description 01/02/2025 2:15 PM EDT Clinical Support [facility] [address] [place] [address] Fariba Gandhi, RN [address] [place] [address] Health Maintenance Due Date Last Done Comments Disability Screening 1982 Family Planning (PISQ) 1997 HPV Vaccines (1 - 3-dose series) 1997 Hepatitis B Vaccines (1 of 3 - 19+ 3-dose series) 2001 Dental X-Ray: Full Mouth 04/19/2021 04/18/2018 Dental Oral Exam 04/17/2022 10/14/2021, 04/18/2018 Dental Prophylaxis 04/17/2022 10/14/2021, 1 03/20/2018, 05/24/2018 Mammogram 2022 Dental X-Ray: Bitewings 10/15/2022 10/15/19 22, 05/16/2018, 04/18/2018 Influenza Vaccine (#1) 2024 , 01/17/2023, 01/07/2021, Additional history exists SDOH Screening 01/18/2025 01/19/2024 Alcohol/Substance Use Screening 01/25/2025 01/26/2024 Depression Screening 08/21/2025 08/21/2024, 08/22/19 25 Tobacco Screening 11/21/2025 11/21/2024 Cervical Cancer Screening 02/11/2026 HPV/Cotest 02/11/2026 02/11/2021 Pap Smear 02/11/2026 02/11/2021 DTaP/Tdap/Td Vaccines (3 - Td or Tdap) 01/19/2028 01/18/2018, 05/21/2013, 11/13/2008 Zoster Vaccines (1 of 2) 2032 RSV Patients and Patients Aged 60 years or older (1 - 1-dose 75+ series) 2057 COVID-19 Vaccine Completed 01/26/2024, 07/2020, 08/10/2020, Additional history exists HIV Screening Completed 01/26/2024 Hepatitis C Screening Completed 08/16/2024, 024 HIB Vaccines Aged Out No longer eligi ble based on patient's age to complete this topic Hepatitis A Vaccines Aged Out No long er eligible based on patient's age to complete this topic IPV Vaccines Aged Out No longer eligi ble based on patient's age to complete this topic Meningococcal B Vaccine Aged Out No l onger eligible based on patient's age to complete this topic Meningococcal Vaccine Aged Out No marlo regine eligible based on patient's age to complete this topic Pneumococcal Vaccine: Pediatrics (0 to 5 Years) and At-Risk Patients (6 to 49) Years Aged Out No longer eligible based on patient's age to complete this topic RSV under 20 months Aged Out No longe r eligible based on patient's age to complete this topic Rotavirus Vaccines Aged Out No longer eligible based on patient's age to complete this topic Procedures Procedure Name Priority Date/Time Associated Diagnosis Comments HEPATITIS PANEL, GENERAL Routine 08/16/2024 11:35 AM EDT Normocytic anemia Transaminitis HIV 1/2 ANTIGEN/ANTIBODY, FOURTH GENERATION W/RFL Routine [...] Recently Relevant to Health Maintenance Results * Hepatitis A,B,C Profile (08/16/2024 11:35 AM EDT) Hepatitis A IgM Nonreactive Nonreactive [facility] [facility] Comment:IgM antibodies to OLIVA V not detected; does not exclude earlyacute or recovered HAV infection. ~Hepatitis B Surface Antibody REACTIVE Nonreactive [facility] Comment:REACTIVE: > 11.99 mI U/mL Hepatitis B Core Antibody Nonreactive Nonreactive [facility] Hepatitis C Antibody Nonreactive Nonreactive [facility] Comment:Antibodies to HCV no t detected; does not exclude early acuteHCV infection. Hepatitis B Surface Ag Negative Negative [facility] Blood Venous blood specimen / Unknown 08/16/2024 11:35 AM EDT 08/16/2024 11:35 AM EDT us Carlo Santana MD LAB BLOOD ORDERABLES Final Result Performing Organization Address [facility]/ZIP Co de Phone Number [facility] [address] [place] [phone] * HIV-1/2 Antigen and Antibodies, Fourth Generation, with Reflexes (01/26/2024 11:58 AM EST) HIV AB/AG Nonreactive Nonreactive [facility] Comment:HIV-1 p24 Ag and/or HIV-1/HIV-2 Ab not detected.A test result that is nonreactive does not exclude thepossibility of exposure to or infection with HIV-1 and/orHIV-2. Nonreactive results in this assay for individualswith prior exposure to HIV-1 and/or HIV-2 may be due toantigen and antibody levels that are below the limit ofdetection of this assay.[employer] HIV Ag/Ab Combo assay result andsupplemental assay results should be interpreted inconjunction with the patient's clinical presentation,history and other laboratory results. If the results areinconsistent with clinical evidence, additional testing issuggested to confirm the result. Blood Venous blood specimen / Unknown 01/26/2024 11:58 AM EST 01/26/2024 2:10 PM EST us Carlo Santana MD LAB BLOOD ORDERABLES Final Result Performing Organization Address [facility]/ZIP Co de Phone Number [facility] [address] [place] [phone] * Pap Smear (02/11/2021) Pap Negative for intraephithelial lesion or malignancy Negative for intraephithelial lesion or malignancy, Other HPV Undetected Undetected, Indeterminate, Quantitative, Not Detected Historical Provider MD HEALTH MAINTENANCE Final Result from Last 3 Months or Most Recently Relevant to Health Maintenance Insurance [facility] C3 DENTAL-[facility] MEDICAID STAND ADULT Care Teams Interpreter Deaf Relationship Specialty Start Date End Date Carlo Santana MD [address] [place] [address] [place] [address] PCP - General Internal Medicine 12/28/17
--- OUTSIDE RECORDS SUMMARY | 2024-12-12 12:34 | XMS_ITS | Encounter Summary ---
Author Organization [employer] Address [address] [facility] 7t [place] [address] Care Team Providers Care Senior Accounting Associate Name Role Phone Carlo Santana MD Primary Care Provider [phone] Reason for Visit * Reason Onset Date Comments Call Back Request 06/21/2024 Encounter Details Date Type Department Care Team ([facility] st Contact Info) Description 06/21/2024 Telephone [facility] [address] [place] [address] Carlo Santana MD [address] [facility] [address] [facility] [address] [place], [place] [phone] Call Back Request Social History Tobacco Use [facility] [address] [place] [address] Fariba Gandhi RN 505 [place] [address] documented as of this encounter Visit Diagnoses Diagnosis Chronic left-sided low back pain with left-sided sciatica documented in this encounter Additional Health Concerns Assessment Noted Time PHQ-9 Depression Total Score: 15 024 11:50 AM EST documented as of this encounter Care Teams Senior Accounting Associate Relationship Specialty Start Date End Date Carlo Santana MD [address] [place] [address] PCP - General Internal Medicine 12/28/17 documented as of this encounter
--- OUTSIDE RECORDS SUMMARY | 2024-12-12 12:34 | XMS_ITS | Encounter Summary ---
Author Organization [employer] Address 75 [facility] 7t [place] [address] Care Team Providers Care Transport Truck Driver Name Role Phone Carlo Santana MD Primary Care Provider [phone] Reason for Visit * Reason Onset Date Comments Results 02/14/2023 Encounter Details Date Type Department Care Team ([facility] Contact Info) Description 02/14/2023 Telephone [facility] MED & PEDS 505 [place] [address] aCrlo Santana MD 505 [place] [address] Results Social History Tobacco Use Types Packs/Day [...] hip on 02/09. Please contact pt at [phone] documented in this encounter Plan of Treatment Upcoming Encounters Date Type Department Care Team (Late st Contact Info) Description 01/02/2025 2:15 PM EDT Clinical Support [facility] MED & PEDS 505 [place] [address] Fariba Gandhi RN 505 [place] [address] documented as of this encounter Visit Diagnoses Not on filedocumented in this encounter Additional Health Concerns Assessment Noted Time PHQ-9 Depression Total Score: 3 06/04/19 23 3:42 PM EDT documented as of this encounter Care Teams Transport Truck Driver Relationship Specialty Start Date End Date Carlo Santana MD [address] [place] [address] PCP - General Internal Medicine 12/28/17 documented as of this encounter
--- OUTSIDE RECORDS SUMMARY | 2024-12-12 12:34 | XMS_ITS | Encounter Summary ---
Author Organization [employer] Address 75 [facility] 7t [place] [address] Care Team Providers Care Aircraft Machinist Name Role Phone Carlo Santana MD Primary Care Provider [phone] Reason for Visit * Reason Onset Date Comments Med Refill 10/26/2024 Encounter Details Date Type Department Care Team ([facility] st Contact Info) Description 10/26/2024 Telephone [facility]INE [address] [place] [address] Carlo Santana MD [address] [place], [place] [phone] Med Refill Social History Tobacco Use Types [...] * Telephone Encounter - Quan Mena - 10/26/2024 8:38 AM EDT Tc from pt requesting to send oxyCODONE (Roxicodone) 10 MG immediate [facility]. If any questions you can contact pt at [phone]. documented in this encounter Plan of Treatment Upcoming Encounters Date Type Department Care Team ([facility] st Contact Info) Description 01/02/2025 2:15 PM EDT Clinical Support [facility] MED & PEDS 505 [place] [address] Fariba Gandhi RN 505 [place] [address] documented as of this encounter Visit Diagnoses Not on filedocumented in this encounter Additional Health Concerns Assessment Noted Time PHQ-9 Depression Total Score: 6 08/22/19 25 10:16 AM EDT documented as of this encounter Care Teams Aircraft Machinist Relationship Specialty Start Date End Date Carlo Santana MD 505 [place] [address] PCP - General Internal Medicine 12/28/17 documented as of this encounter
--- OUTSIDE RECORDS SUMMARY | 2024-12-12 12:34 | XMS_ITS | Encounter Summary ---
Author Organization [employer] Address 75 [facility] 7t [place] [address] Care Team Providers Care Filenet Developer Name Role Phone Carlo Santana MD Primary Care Provider [phone] Reason for Visit * Reason Onset Date Comments Med Refill 06/04/2024 Encounter Details Date Type Department Care Team (Late st Contact Info) Description 06/04/2024 Telephone [facility] 230 [place] [address] Carlo Santana MD 505 [place], [place] [phone] Med Refill Social History Tobacco Use Types [...] immediate release tablet To be sent to: [facility]/pharmacy #[id number] [place]HA [place] - [id number] [facility] documented in this encounter Plan of Treatment Upcoming Encounters Date Type Department Care Team ([facility] Contact Info) Description 01/02/2025 2:15 PM EDT Clinical Support [facility]EDS 505 [place] [address] Fariba Gandhi RN 505 [place] [address] documented as of this encounter Visit Diagnoses Not on filedocumented in this encounter Additional Health Concerns Assessment Noted Time PHQ-9 Depression Total Score: 15 024 11:50 AM EST documented as of this encounter Care Teams Filenet Developer Relationship Specialty Start Date End Date Carlo Santana MD 505 [place] [address] PCP - General Internal Medicine 12/28/17 documented as of this encounter
--- OUTSIDE RECORDS SUMMARY | 2024-12-12 12:34 | XMS_ITS | Encounter Summary ---
Author Organization [employer] Address 75 [facility] 7t [place] [address] Care Team Providers Care Security Control Room Officer Name Role Phone Carlo Santana MD Primary Care Provider [phone] Reason for Visit * Reason Onset Date Comments Med Refill 09/17/2024 Encounter Details Date Type Department Care Team (Late st Contact Info) Description 09/17/2024 Refill [facility] 230 [place] [address] Carlo Santana MD 505 [place], [place] [phone] Chronic left-sided low back pain with left-sided [...] ([facility] st Contact Info) Description 01/02/2025 2:15 PM EDT Clinical Support [facility] 505 [place] [address] Fariba Gandhi, HUGO 505 [place] [address] documented as of this encounter Visit Diagnoses Diagnosis Chronic left-sided low back pain with left-sided sciatica documented in this encounter Additional Health Concerns Assessment Noted Time PHQ-9 Depression Total Score: 6 08/22/19 25 10:16 AM EDT documented as of this encounter Care Teams Security Control Room Officer Relationship Specialty Start Date End Date Carlo Santana MD 505 [place] [address] PCP - General Internal Medicine 12/28/17 documented as of this encounter
--- OUTSIDE RECORDS SUMMARY | 2024-12-12 12:34 | XMS_ITS | Encounter Summary ---
Author Organization [employer] Address 75 [facility] 7t [place] [address] Care Team Providers Care Superintendent Job Name Role Phone Carlo Santana MD Primary Care Provider [phone] Reason for Visit * Reason Onset Date Comments Results 08/22/2024 Encounter Details Date Type Department Care Team ([facility] Contact Info) Description 08/22/2024 Telephone [facility] MEDICINE 230 [place] [address] Carlo Santana MD 505 [place], [place] [phone] Results Social History Tobacco Use Types Packs/Day [...] * Telephone Encounter - Urvashi Martinez - 08/22/2024 12:52 PM EDT TC from pt requesting call back regarding Results. Type of results: XR Shoulder., XR Lumbar Spine Date when done: 08/22 Facility: [facility] documented in this encounter Plan of Treatment Upcoming Encounters Date Type Department Care Team ([facility] st Contact Info) Description 01/02/2025 2:15 PM EDT Clinical Support [facility] MED & PEDS 505 [place] [address] Fariba Gandhi RN 505 [place] [address] documented as of this encounter Visit Diagnoses Not on filedocumented in this encounter Additional Health Concerns Assessment Noted Time PHQ-9 Depression Total Score: 6 08/22/19 25 10:16 AM EDT documented as of this encounter Care Teams Superintendent Job Relationship Specialty Start Date End Date Carlo Santana MD 505 [place] [address] PCP - General Internal Medicine 12/28/17 documented as of this encounter
--- OUTSIDE RECORDS SUMMARY | 2024-12-12 12:34 | XMS_ITS | Encounter Summary ---
Author Organization [employer] Address 75 [facility] 7t [place] [address] Care Team Providers Care Health Care Coach Name Role Phone Carlo Santana MD Primary Care Provider [phone] Reason for Visit * Reason Onset Date Comments Med Refill 10/18/2024 Encounter Details Date Type Department Care Team (Late st Contact Info) Description 10/18/2024 Telephone [facility] MEDICINE 230 [place] [address] Carlo Santana MD 505 [place], [place] [phone] Med Refill Social History Tobacco Use Types [...] Telephone Encounter - Rand Savage RN - 10/19/2024 1:38 PM EDT Refill too soon. Pt filled 28 day supply on 10/01/24. Not due until 10/29/24 * Telephone Encounter - Олег Neil - 10/18/2024 10:56 AM EDT TC from pt requesting medication refill. Medications needing refill : oxyCODONE (Roxicodone) 10 MG immediate release tablet To be sent to: [facility]/pharmacy #[id number] - [place] - [address] *aware due next week documented in this encounter Plan of Treatment Upcoming Encounters Date Type Department Care Team ([facility] st Contact Info) Description 01/02/2025 2:15 PM EDT Clinical Support [facility]S 505 [place] [address] Fariba Gandhi, HUGO 505 [place] [address] documented as of this encounter Visit Diagnoses Not on filedocumented in this encounter Additional Health Concerns Assessment Noted Time PHQ-9 Depression Total Score: 6 08/22/19 25 10:16 AM EDT documented as of this encounter Care Teams Health Care Coach Relationship Specialty Start Date End Date Carlo Santana MD [address] [place] [address] PCP - General Internal Medicine 12/28/17 documented as of this encounter
--- OUTSIDE RECORDS SUMMARY | 2024-12-12 12:34 | XMS_ITS | Encounter Summary ---
Author Organization [employer] Address 75 [facility] 7t [place] [address] Care Team Providers Care Surgical Appliance Fitter Name Role Phone Carlo Santana MD Primary Care Provider [phone] Reason for Visit * Reason Onset Date Comments Durable Medical Equipment 08/27/2024 Encounter Details Date Type Department Care Team ([facility] Contact Info) Description 08/27/2024 Telephone [facility] 505 [place] [address] Carlo Santana MD 505 [place] [address] Durable Medical Equipment Social History Tobacco Use [...] Telephone Encounter - Kallie Mayorga LPN - 08/27/2024 10:49 AM EDT Rx generated and faxed to [facility] for size change as requested . Tc from pt requesting to change the size of depends from a small to a size medium. Contact pt at [phone] * Telephone Encounter - Francesca Solares - 08/27/2024 8:22 AM EDT Tc from pt requesting to change the size of depends from a small to a size medium. Contact pt at [phone] documented in this encounter Plan of Treatment Upcoming Encounters Date Type Department Care Team ([facility] st Contact Info) Description 01/02/2025 2:15 PM EDT Clinical Support [facility] MED & PEDS 505 [place] [address] Fariba Gandhi, RN 505 [place] [address] documented as of this encounter Visit Diagnoses Diagnosis Chronic left-sided low back pain with left-sided sciatica documented in this encounter Additional Health Concerns Assessment Noted Time PHQ-9 Depression Total Score: 6 08/22/19 25 10:16 AM EDT documented as of this encounter Care Teams Surgical Appliance Fitter Relationship Specialty Start Date End Date Carlo Santana MD [address] [place] [address] PCP - General Internal Medicine 12/28/17 documented as of this encounter
--- OUTSIDE RECORDS SUMMARY | 2024-12-12 12:34 | XMS_ITS | Encounter Summary ---
Author Organization [employer] Address [address] [place] [address] 7 [place] [address] Care Team Providers Care Airport Ramp Supervisor Name Role Phone Carlo Santana MD Primary Care Provider [phone] Reason for Referral * Imaging (Routine) - Closed Specialty Diagnoses / Procedures Referred By Contac t Referred To Contact Diagnoses Right ovarian cyst Procedures Us Pelvis complete Carlo Santana MD [address] [place] [address] Phone: tel: fax: [address] Phone: tel: fax: Referral ID Status Reason Start Date Expiration Date Visits Re quested Visits Authorized [id number] Closed 07/08/2022 01/04/2023 1 1 * Imaging (Routine) - Closed Specialty Diagnoses / Procedures Referred By Contac t Referred To Contact Diagnoses Right ovarian cyst Procedures US Pelvis Transvaginal Carlo Santana MD [address] [place] [address] Phone: tel: fax: [address] Phone: tel: fax: Referral ID Status Reason Start Date Expiration Date Visits Re quested Visits Authorized [id number] Closed 07/08/2022 01/04/2023 1 1 Encounter Details Date Type Department Care Team ([facility] Contact Info) Description 07/08/2022 Orders Only [facility] MED & PEDS [address] [place] [address] Carlo Santana MD 505 [place] [address] Right ovarian cyst (Primary Dx) Social History [...] [facility] Contact Info) Description 01/02/2025 2:15 PM EDT Clinical Support [facility] MED & PEDS [address] [place] [address] Fariba Gandhi, HUGO 505 [place] [address] Scheduled Orders Name Type Priority Associated Diagnoses [...] Anti Nuclear Antibody Screen POSITIV E(A) NEGATIVE [facility] Comment:TRUDY IFA is a first l ine screen for detecting thepresence of up to approximately 150 autoantibodies invarious autoimmune diseases. A positive TRUDY IFA resultis suggestive of autoimmune disease and reflexes totiter and pattern. Further laboratory testing may beconsidered if clinically indicated.For additional information, please refer tohttp://education.[employer]/faq/NQC468(This link is being provided for informational/educational purposes only.) TRUDY Titer 1:640(A ) titer [facility] Comment:Reference Range <1:4 0 Negative 1:40-1:80 Low Antibody Level >1:80 Elevated Antibody Level TRUDY Pattern Nuclear , Homogen eous(A) [facility] Comment:Homogeneous pattern is associated with systemic lupuserythematosus (SLE), drug-induced lupus and juvenileidiopathic arthritis.AC-1: HomogeneousInternational Consensus on TRUDY Patterns(https://doi.org/10.1515/kpvq-7538-5440)THIS TEST WAS PERFORMED AT:[facility] [place] [phone]- [phone] HUTTON MD TRUDY TITER 2 (REF LAB) [facility] TRUDY Pattern 2 [facility] TRUD[facility] TITER 3 [facility] TRUDY PATTERN 3 [facility] 07/08/2022 11:3 7 AM EDT 07/08/2022 11:37 AM EDT [facility] External Provider LAB BLO OD ORDERABLES Final Result Performing Organization Address [facility] Co de Phone Number [facility] [address] [place] [address] [phone] * Sed Rate by Modified Magdalene (07/08/2022 11:37 AM EDT) Pathologist [facility] Erythrocyte Sedimentation Rate 6 0 - 20 MM/HR [facility] Comment:Patients with polycy themia and many hemoglobin abnormalitiesmay have depressed sed rates whereas patients with anemiamay have elevated sed rates. 07/08/2022 11:3 7 AM EDT 07/08/2022 11:37 AM EDT [facility] External Provider LAB BLO OD ORDERABLES Final Result Performing Organization Address [facility] Co de Phone Number [facility] [address] [place] [phone] * APTT (07/08/2022 11:37 AM EDT) Partial Thromboplastin Time 30.5 26.0 - 36.4 SEC [facility] 07/08/2022 11:3 7 AM EDT 07/08/2022 11:37 AM EDT [facility] External Provider LAB BLO OD ORDERABLES Final Result Performing Organization Address [facility] de Phone Number [facility] [address] [place] [address] [phone] * Prothrombin Time-INR (07/08/2022 11:37 AM EDT) [facility] Prothrombin Time 11.8 10.0 - 13.1 SEC [facility] INTERNATIONAL NORM RATIO 1.0 0.9 - 1.1 [facility] Comment:INTERNATIONAL NORMAL IZED RATIO (INR) REFERENCE [...] OD ORDERABLES Final Result Performing Organization Address City/State/[facility] Co de Phone Number [facility] [address] [place] [phone] * (ABNORMAL) CBC auto differential (07/08/2022 11:37 AM EDT) [facility] White Blood Count 9.3 4.8 - 10.8 X10*3/uL [facility] Red Blood Count 4.52 4.20 - 5.50 X10*6/uL [facility] Hemoglobin 14.3 12.0 - 16.0 g/dl [facility] Hematocrit 42.3 37.0 - 47.0 % [facility] Mean Corpuscular Volume 93.6 80.0 - 98.0 fL [facility] Mean Corpuscular Hemoglobin 31.6 27.0 - 33.0 pg [facility] Mean Corpuscular HGB Conc 33.8 31.0 - 35.0 g/dl [facility] Red Cell Distribution Width 12.4 11.0 - 16.0 % [facility] Platelet Count 260 160 - 400 X10*3/uL [facility] Mean Platelet Volume 11.0 9.4 - 12.3 fL [facility] Neutrophils Percent Auto 67.8 45 - 73 % [facility] Imm Gran Pct Auto 0.4 0.0 - 0.4 % [facility] Lymphocytes Percent Auto 24.9 20 - 40 % [facility] Monocytes Percent Auto 5.5 2 - 11 % [facility] Eosinophils Percent Auto 0.8 0 - 4 % [facility] Basophils Percent Auto 0.6 0 - 2 % [facility] NRBC Pct Auto 0.0 0.0 - 0.2 /100WBC [facility] Neutrophils Absolute Auto 6.3 2.0 - 8.3 x10*3/uL [facility] Imm Gran Abs Auto 0.04(H) 0.00 - 0.03 X10*3/uL [facility] Lymphocytes Absolute Auto 2.3 1.2 - 4.9 X10*3/uL [facility] Monocytes Absolute Auto 0.5 0.1 - 1.2 X10*3/uL [facility] Eosinophils Absolute Auto 0.1 0.0 - 0.4 X10*3/uL [facility] Basophils Absolute Auto 0.1 0.0 - 0.2 X10*3/uL [facility] NRBC Abs Auto 0.000 0.0 - 0.012 X10*3/uL [facility] 07/08/2022 11:3 7 AM EDT 07/08/2022 11:37 AM EDT us [facility] External Provider LAB BLO OD ORDERABLES Final Result [facility] [address] [place] [address] [phone] documented in this encounter Visit Diagnoses Diagnosis Right ovarian cyst- Primary Other and unspecified ovarian cyst documented in this encounter Additional Health Concerns Assessment Noted Time PHQ-9 Depression Total Score: 3 06/04/19 23 3:42 PM EDT documented as of this encounter Care Teams Airport Ramp Supervisor Relationship Specialty Start Date End Date Carlo Santana MD [address] [place] [phone] PCP - General Internal Medicine 12/28/17 documented as of this encounter
--- OUTSIDE RECORDS SUMMARY | 2024-12-12 12:34 | XMS_ITS | Encounter Summary ---
Author Organization [employer] Address [address] [facility] 7t [place] [address] Care Team Providers Care Business Operations Analyst Name Role Phone Carlo Santana MD Primary Care Provider [phone] Reason for Visit * Reason Onset Date Comments Referral 07/26/2022 Encounter Details Date Type Department Care Team ([facility] st Contact Info) Description 07/26/2022 Telephone [facility] MEDICINE [address] [place] [address] Carlo Santana MD [address] [place], [place] [phone] Referral Social History Tobacco Use Types Packs/Day [...] was not satisfied. Please contact pt at [phone] documented in this encounter Plan of Treatment Upcoming Encounters Date Type Department Care Team ([facility] st Contact Info) Description 01/02/2025 2:15 PM EDT Clinical Support [facility] MED & PEDS 505 [place] [address] Fariba Gandhi, HUGO 505 [place] [address] documented as of this encounter Visit Diagnoses Not on filedocumented in this encounter Additional Health Concerns Assessment Noted Time PHQ-9 Depression Total Score: 3 06/04/19 23 3:42 PM EDT documented as of this encounter Care Teams Business Operations Analyst Relationship Specialty Start Date End Date Carlo Santana MD [address] [place] [address] PCP - General Internal Medicine 12/28/17 documented as of this encounter
--- OUTSIDE RECORDS SUMMARY | 2024-12-12 12:34 | XMS_ITS | Encounter Summary ---
Author Organization [employer] Address [address] [place] [address] 7 [place] [address] Care Team Providers Care Carpenter'S Assistant Name Role Phone Carlo Santana MD Primary Care Provider [phone] Encounter Details Date Type Department Care Team (Latest Contact Info) Description 04/18/2018 Abstract [facility] CONVERSIONS Dental, Provider, DDS Social History Tobacco [...] Description 01/02/2025 2:15 PM EDT Clinical Support [facility]C MED & PEDS 505 [place] [address] Fariba Gandhi, HUGO 505 [place] [address] documented as of this encounter Visit Diagnoses Not on filedocumented in this encounter Care Teams Carpenter'S Assistant Relationship Specialty Start Date End Date Carlo Santana MD 505 [place] [address] PCP - General Internal Medicine 12/28/17 documented as of this encounter
--- OUTSIDE RECORDS SUMMARY | 2024-12-12 12:34 | XMS_ITS | Encounter Summary ---
Author Organization [email or web address] Address [address] [facility] 7t [place] [address] Care Team Providers Care Saw Operator Name Role Phone Calro Santana MD Primary Care Provider [phone] Reason for Visit * Reason Onset Date Comments Medication Question 10/25/2024 Encounter Details Date Type Department Care Team ([facility] Contact Info) Description 10/25/[address] [facility] MEDICINE [address] [place] [address] Carlo Santana MD 505 [place], [place] [phone] Medication Question Social History Tobacco Use Types [...] * Telephone Encounter - Олег Neil - 10/25/2024 3:48 PM EDT TC from pt requesting for provider to fix directions on lidocaine (Lidoderm) 5 % patch to 2x a day documented in this encounter Plan of Treatment Upcoming Encounters Date Type Department Care Team (Late st Contact Info) Description 01/02/2025 2:15 PM EDT Clinical Support [facility] CHC MED & PEDS 505 [place] [address] Fariba Gandhi RN 505 [place] [address] documented as of this encounter Visit Diagnoses Not on filedocumented in this encounter Additional Health Concerns Assessment Noted Time PHQ-9 Depression Total Score: 6 08/22/19 25 10:16 AM EDT documented as of this encounter Care Teams Saw Operator Relationship Specialty Start Date End Date Carlo Santana MD 505 [place] [address] PCP - General Internal Medicine 12/28/17 documented as of this encounter
--- OUTSIDE RECORDS SUMMARY | 2024-12-12 12:34 | XMS_ITS | Encounter Summary ---
Author Organization [employer] Address [address] [facility] 7t [place] [address] Care Team Providers Care Director Of Dietary Name Role Phone Carlo Santana MD Primary Care Provider [phone] Reason for Visit * Reason Onset Date Comments triage 08/10/2022 Encounter Details Date Type Department Care Team ([facility] st Contact Info) Description 08/10/2022 Telephone [facility] MEDICINE 230 [place] [address] Carlo Santana MD 505 [place], [place] [phone] triage Social History Tobacco Use Types Packs/Day [...] * Telephone Encounter - Ashley Gavin - 08/10/2022 4:05 PM EDT Symptom: Medication Reaction Outcome: Schedule an urgent appointment (within 1 hour) or talk to a nurse or provider soon Reason: Caller denied all higher acuity questions The caller accepted this outcome documented in this encounter Plan of Treatment Upcoming Encounters Date Type Department Care Team ([facility] st Contact Info) Description 01/02/2025 2:15 PM EDT Clinical Support [facility] MED & PEDS 505 [place] [address] Fariba Gandhi, HUGO 505 [place] [address] documented as of this encounter Visit Diagnoses Not on filedocumented in this encounter Additional Health Concerns Assessment Noted Time PHQ-9 Depression Total Score: 3 06/04/19 23 3:42 PM EDT documented as of this encounter Care Teams Director Of Dietary Relationship Specialty Start Date End Date Carlo Santana MD 505 [place] [address] PCP - General Internal Medicine 12/28/17 documented as of this encounter
--- OUTSIDE RECORDS SUMMARY | 2024-12-12 12:34 | XMS_ITS | Encounter Summary ---
Author Organization [employer] Address [address] [facility] 7 [place] [address] Care Team Providers Care Towboat Captain Name Role Phone Carlo Santana MD Primary Care Provider [phone] Encounter Details Date Type Department Care Team ([facility] st Contact Info) Description 09/28/2024 Orders Only [facility] CHC MED & PEDS 505 [place], [place] [phone] Carlo Santana MD 505 [place] [address] Social History Tobacco Use Types Packs/Day Years [...] Description 01/02/2025 2:15 PM EDT Clinical Support [facility] MED & PEDS 505 [place] [address] Fariba Gandhi, HUGO 505 [place] [address] documented as of this encounter Visit Diagnoses Not on filedocumented in this encounter Additional Health Concerns Assessment Noted Time PHQ-9 Depression Total Score: 6 08/22/19 25 10:16 AM EDT documented as of this encounter Care Teams Towboat Captain Relationship Specialty Start Date End Date Carlo Santana MD 505 [place] [address] PCP - General Internal Medicine 12/28/17 documented as of this encounter
--- OUTSIDE RECORDS SUMMARY | 2024-12-12 12:34 | XMS_ITS | Encounter Summary ---
Author Organization [employer] Address [address] [facility] 7t [place] [address] Care Team Providers Care Cocoa Press Operator Name Role Phone Carlo Santana MD Primary Care Provider [phone] Reason for Visit * Reason Comments Med Refill Encounter Details Date Type Department Care Team ([facility] Contact Info) Description 10/23/2024 Refill [facility] CHC MED & PEDS 505 [place], [place] [phone] Carlo Santana MD 505 [place], [place] [phone] Chronic left shoulder pain; Rib pain; Chronic [...] Description 01/02/2025 2:15 PM EDT Clinical Support [facility] MED & PEDS 505 [place] [address] Fariba Gandhi RN 505 [place] [address] documented as of this encounter Visit Diagnoses Diagnosis Chronic left shoulder pain Pain in joint, shoulder region Rib pain Unspecified chest pain Chronic left-sided low back pain with left-sided sciatica Neck pain Cervicalgia documented in this encounter Additional Health Concerns Assessment Noted Time PHQ-9 Depression Total Score: 6 08/22/19 25 10:16 AM EDT documented as of this encounter Care Teams Cocoa Press Operator Relationship Specialty Start Date End Date Carlo Santana MD 505 [place] [address] PCP - General Internal Medicine 12/28/17 documented as of this encounter
--- OUTSIDE RECORDS SUMMARY | 2024-12-12 12:34 | XMS_ITS | Encounter Summary ---
Author Organization [employer] Address [address] [facility] 7t [place] [address] Care Team Providers Care Die Trouble Shooter Name Role Phone Carlo Santana MD Primary Care Provider [phone] Reason for Visit * Reason Onset Date Comments Med Refill 10/25/2024 Encounter Details Date Type Department Care Team ([facility] st Contact Info) Description 10/25/[address] [facility] MEDICINE 230 [place] [address] Carlo Santana MD 505 [place], [place] [phone] Med Refill Social History Tobacco Use Types [...] Telephone Encounter - April Beard LPN - 10/25/2024 9:00 AM EDT Medications requested have refills. * Telephone Encounter - Tasha Barton - 10/25/2024 8:46 AM EDT TC from pt requesting medication refill. Medications needing refill : - lidocaine (Lidoderm) 5 % patch(for 2 times a day) - lidocaine (Xylocaine) 5 % ointment - topiramate 50 MG tablet To be sent to: - [facility]/pharmacy #[id number] LEATHA PHILLIPS - [address] [facility] documented in this encounter Plan of Treatment Upcoming Encounters Date Type Department Care Team ([facility] st Contact Info) Description 01/02/2025 2:15 PM EDT Clinical Support [facility] MED & PEDS 505 [place] [address] Fariba Gandhi, RN 505 [place] [address] documented as of this encounter Visit Diagnoses Not on filedocumented in this encounter Additional Health Concerns Assessment Noted Time PHQ-9 Depression Total Score: 6 08/22/19 25 10:16 AM EDT documented as of this encounter Care Teams Die Trouble Shooter Relationship Specialty Start Date End Date Carlo Santana MD 505 [place] [address] PCP - General Internal Medicine 12/28/17 documented as of this encounter
--- OUTSIDE RECORDS SUMMARY | 2024-12-12 12:34 | XMS_ITS | Encounter Summary ---
Author Organization [employer] Address [address] [facility] 7t [place] [address] Care Team Providers Care Antisubmarine Weapons Officer Name Role Phone Carlo Santana MD Primary Care Provider [phone] Reason for Visit * Reason Onset Date Comments Medication Question 01/25/2023 Encounter Details Date Type Department [facility] Description 01/25/2023 Telephone [facility] MED & PEDS 505 [place] [address] Carlo Santana MD 505 [place], [place] [phone] Medication Question Social History Tobacco Use Types [...] returning phone call Please contact pt at [phone] * Telephone Encounter - Rand Savage RN [...] losing any weight. Please contact pt at [phone] documented in this encounter Plan of Treatment Upcoming Encounters Date Type Department Care Team (Late st Contact Info) Description 01/02/2025 2:15 PM EDT Clinical Support [facility] MED & PEDS [address] [place] [address] Fariba Gandhi, HUGO 505 [place] [address] documented as of this encounter Visit Diagnoses Diagnosis Low back pain radiating down leg documented in this encounter Additional Health Concerns Assessment Noted Time PHQ-9 Depression Total Score: 3 06/04/19 23 3:42 PM EDT documented as of this encounter Care Teams Antisubmarine Weapons Officer Relationship Specialty Start Date End Date Carlo Santana MD [address] [place] [address] PCP - General Internal Medicine 12/28/17 documented as of this encounter
--- OUTSIDE RECORDS SUMMARY | 2024-12-12 12:34 | XMS_ITS | Encounter Summary ---
Author Organization [employer] Address [address] [facility] 7t [place] [address] Care Team Providers Care Label Operator Name Role Phone Carlo Santana MD Primary Care Provider [phone] Reason for Visit * Reason Onset Date Comments Appointment Request 06/04/2024 Encounter Details Date Type Department Care Team ([facility] Contact Info) Description 06/04/2024 Telephone [facility] MEDICINE 230 [place] [address] Carlo Santana MD 505 [place], [place] [phone] Appointment Request Social History Tobacco Use Types [...] R/s ppt from 05/31/24. Contact pt at [phone] documented in this encounter Plan of Treatment Upcoming Encounters Date Type Department Care Team ([facility] st Contact Info) Description 01/02/2025 2:15 PM EDT Clinical Support [facility] CHC MED & PEDS 505 [place] [address] Fariba Gandhi, HUGO 505 [place] [address] documented as of this encounter Visit Diagnoses Not on filedocumented in this encounter Additional Health Concerns Assessment Noted Time PHQ-9 Depression Total Score: 15 024 11:50 AM EST documented as of this encounter Care Teams Label Operator Relationship Specialty Start Date End Date Carlo Santana MD 505 [place] [address] PCP - General Internal Medicine 12/28/17 documented as of this encounter
--- OUTSIDE RECORDS SUMMARY | 2024-12-12 12:34 | XMS_ITS | Encounter Summary ---
Author Organization [employer] Address [address] [facility] 7t [place] [address] Care Team Providers Care Milling Planer Operator Name Role Phone Carlo Santana MD Primary Care Provider [phone] Reason for Visit * Reason Onset Date Comments Call Back Request 02/28/2024 Encounter Details Date Type Department Care Team ([facility] Contact Info) Description 02/28/2024 Telephone [facility] MEDICINE [address] [place] [address] Carlo Santana MD 505 [place], [place] [phone] Call Back Request Social History Tobacco Use [...] [facility]S 505 [place] [address] Fariba Gandhi RN 505 [place] [address] documented as of this encounter Visit Diagnoses Not on filedocumented in this encounter Additional Health Concerns Assessment Noted Time PHQ-9 Depression Total Score: 15 024 11:50 AM EST documented as of this encounter Care Teams Milling Planer Operator Relationship Specialty Start Date End Date Carlo Santana MD 505 [place] [address] PCP - General Internal Medicine 12/28/17 documented as of this encounter
--- OUTSIDE RECORDS SUMMARY | 2024-12-12 12:34 | XMS_ITS | Encounter Summary ---
Author Organization [employer] Address [address] [facility] 7t [place] [address] Care Team Providers Care Tag Press Operator Name Role Phone Carlo Santana MD Primary Care Provider [phone] Reason for Visit * Reason Onset Date Comments requesting a call back 09/03/2024 Encounter Details Date Type Department Care Team ([facility] Contact Info) Description 09/03/2024 Telephone [facility] CHC MED & PEDS 505 [place] [address] Carlo Santana MD 505 [place], [place] [phone] requesting a call back Social History Tobacco Use Types Packs/Day Years [...] Telephone Encounter - Rand Savage RN - 09/03/2024 4:29 PM EDT Pt has been scheduled to see PCP for matter * Telephone Encounter - Christ Chaidez - 09/03/2024 12:18 PM EDT Tc from pt requesting a returned call to further discuss the situation of the pt and the options other than back surgery. Contact pt at [phone] documented in this encounter Plan of Treatment Upcoming Encounters Date Type Department Care Team (Late st Contact Info) Description 01/02/2025 2:15 PM EDT Clinical Support [facility] MED & PEDS 505 [place] [address] Fariba Gandhi, RN 505 [place] [address] documented as of this encounter Visit Diagnoses Diagnosis [place] (generalized anxiety disorder) Generalized anxiety disorder documented in this encounter Additional Health Concerns Assessment Noted Time PHQ-9 Depression Total Score: 6 08/22/19 25 10:16 AM EDT documented as of this encounter Care Teams Tag Press Operator Relationship Specialty Start Date End Date Carlo Santana MD [address] [place] [address] PCP - General Internal Medicine 12/28/17 documented as of this encounter
--- OUTSIDE RECORDS SUMMARY | 2024-12-12 12:34 | XMS_ITS | Encounter Summary ---
Author Organization [employer] Address 75 [facility] 7t [place] [address] Care Team Providers Care Grout Machine Operator Name Role Phone Carlo Santana MD Primary Care Provider [phone] Reason for Visit * Reason Onset Date Comments Med Refill 10/30/2024 Encounter Details Date Type Department Care Team ([facility] Contact Info) Description 10/30/2024 Telephone [facility] MED & PEDS 505 [place] [address] Carlo Santana MD 505 [place] [address] Med Refill Social History Tobacco Use Types [...] Telephone Encounter - April Beard LPN - 10/30/2024 12:27 PM EDT Medication pended to PCP. * Telephone Encounter - Suyapa Santacruz - 10/30/2024 12:23 PM EDT TC from pt requesting medication refill. Medications needing refill : tiZANidine (Zanaflex) 4 MG tablet [facility] sent to: [facility] documented in this encounter Plan of Treatment Upcoming Encounters Date Type Department Care Team (Late st Contact Info) Description 01/02/2025 2:15 PM EDT Clinical Support [facility] MED & PEDS 505 [place] [address] Fariba Gandhi, HUGO [address] [place] [address] documented as of this encounter Visit Diagnoses Not on filedocumented in this encounter Additional Health Concerns Assessment Noted Time PHQ-9 Depression Total Score: 6 08/22/19 10:16 AM EDT documented as of this encounter Care Teams Grout Machine Operator Relationship Specialty Start Date End Date Carlo Santana MD [address] [place] [address] PCP - General Internal Medicine 12/28/17 documented as of this encounter
--- OUTSIDE RECORDS SUMMARY | 2024-12-12 12:34 | XMS_ITS | Encounter Summary ---
Author Organization [employer] Address [address] [facility] 7t [place] [address] Care Team Providers Care Addressograph Operator Name Role Phone Carlo Santana MD Primary Care Provider [phone] Reason for Visit * Reason Onset Date Comments Med Refill 01/14/2023 Encounter Details Date Type Department Care Team (Late st Contact Info) Description 01/14/2023 Telephone [facility] MEDICINE 230 [place] [address] Carlo Santana MD [address] [facility] [address] [place], [place] [phone] Med Refill Social History Tobacco Use Types [...] 01/02/2025 2:15 PM EDT Clinical Support [facility] MED & PEDS 505 [place] [address] Fariba Gandhi, HUGO 505 [place] [address] documented as of this encounter Visit Diagnoses Not on filedocumented in this encounter Additional Health Concerns Assessment Noted Time PHQ-9 Depression Total Score: 3 06/04/19 23 3:42 PM EDT documented as of this encounter Care Teams Addressograph Operator Relationship Specialty Start Date End Date Carlo Santana MD 505 [place] [address] PCP - General Internal Medicine 12/28/17 documented as of this encounter
--- OUTSIDE RECORDS SUMMARY | 2024-12-12 12:34 | XMS_ITS | Encounter Summary ---
Author Organization [employer] Address [address] [facility] 7t [place] [address] Care Team Providers Care Textile Slitting Machine Operator Name Role Phone Carlo Santana MD Primary Care Provider [phone] Encounter Details Date Type Department Care Team ([facility] st Contact Info) Description 01/19/2023 Orders Only [facility] CH[facility] MED & PEDS 505 [place], [place] [address] Carlo Santana MD 505 [place], [place] [phone] Neck pain (Primary Dx); Chronic left-sided low [...] ([facility] st Contact Info) Description 01/02/2025 2:15 PM EDT Clinical Support [facility] MED & PEDS 505 [place] [address] Fariba Gandhi, HUGO 505 [place] [address] documented as of this encounter Visit Diagnoses Diagnosis Neck pain- Primary Cervicalgia Chronic left-sided low back pain with left-sided sciatica documented in this encounter Additional Health Concerns Assessment Noted Time PHQ-9 Depression Total Score: 3 06/04/19 23 3:42 PM EDT documented as of this encounter Care Teams Textile Slitting Machine Operator Relationship Specialty Start Date End Date Carlo Santana MD [address] [place] [address] PCP - General Internal Medicine 12/28/17 documented as of this encounter
--- OUTSIDE RECORDS SUMMARY | 2024-12-12 12:34 | XMS_ITS | Encounter Summary ---
Author Organization [employer] Address [address] [facility] 7t [place] [address] Care Team Providers Care Blasting Contract Miner Name Role Phone Carlo Santana MD Primary Care Provider [phone] Reason for Visit * Reason Onset Date Comments Med Refill 10/29/2024 Encounter Details Date Type Department Care Team ([facility] st Contact Info) Description 10/29/2024 Telephone [facility] MEDICINE [address] [place] [address] Carlo Santana MD 505 [place], [place] [phone] Med Refill Social History Tobacco Use Types [...] Encounter - April Beard LPN - 10/30/2024 8:56 AM EDT Pended to PCP. * Telephone Encounter - Francesca Solares - 10/30/2024 8:22 AM EDT Tc from pt stating the inhaler was not sent to [facility] as she called pharmacy . She wants it sent to [facility] pharmacy Contact pt at [phone] * Telephone Encounter - April Beard LPN - 10/29/2024 8:28 AM EDT Medications were sent to [facility] #[id number] per patients request patient can call pharmacy and transfer medication. * Telephone Encounter - Tasha Barton - 10/29/2024 8:25 AM EDT TC from pt requesting medication refill. Medications needing refill : - albuterol 108 (90 Base) MCG/ACT inhaler - lidocaine (Lidoderm) 5 % patch To be sent to: - [facility] [place], [place] - [address] [place] [address] documented in this encounter Plan of Treatment Upcoming Encounters Date Type Department Care Team ([facility] st Contact Info) Description 01/02/2025 2:15 PM EDT Clinical Support [facility] MED & PEDS 505 [place] [address] Fariba Gandhi, HUGO 505 [place] [address] documented as of this encounter Visit Diagnoses Not on filedocumented in this encounter Additional Health Concerns Assessment Noted Time PHQ-9 Depression Total Score: 6 08/22/19 25 10:16 AM EDT documented as of this encounter Care Teams Blasting Contract Miner Relationship Specialty Start Date End Date Carlo Santana MD 505 [place] [address] PCP - General Internal Medicine 12/28/17 documented as of this encounter
--- OUTSIDE RECORDS SUMMARY | 2024-12-12 12:35 | XMS_ITS | Encounter Summary ---
Author Organization [employer] Address [address] [facility] 7t [place] [address] Care Team Providers Care Nail Sticker Name Role Phone Carlo Santana MD Primary Care Provider [phone] Reason for Visit * Reason Onset Date Comments Med Refill 10/18/2023 Encounter Details Date Type Department Care Team (Late st Contact Info) Description 10/18/2023 Telephone [facility] MEDICINE 230 [place] [address] Carlo Santana MD 505 [place], [place] [phone] Med Refill Social History Tobacco Use Types [...] 1 MG tablet To be sent to: [facility] documented in this encounter Plan of Treatment Upcoming Encounters Date Type Department Care Team (Late st Contact Info) Description 01/02/2025 2:15 PM EDT Clinical Support [facility] MED & PEDS 505 [place] [address] Fariba Gandhi, HUGO 505 [place] [address] documented as of this encounter Visit Diagnoses Not on filedocumented in this encounter Additional Health Concerns Assessment Noted Time PHQ-9 Depression Total Score: 3 06/04/19 23 3:42 PM EDT documented as of this encounter Care Teams Nail Sticker Relationship Specialty Start Date End Date Carol Santana MD 505 [place] [address] PCP - General Internal Medicine 12/28/17 documented as of this encounter
--- OUTSIDE RECORDS SUMMARY | 2024-12-12 12:35 | XMS_ITS | Encounter Summary ---
Author Organization [employer] Address [address] [place] [address] 7t [place] [address] Care Team Providers Care Business Unit Director Name Role Phone Carlo Santana MD Primary Care Provider [phone] Reason for Visit * Reason Onset Date Comments Med Refill 09/16/2022 Encounter Details Date Type Department Care Team ([facility] Contact Info) Description 09/16/2022 Telephone [facility] MED & PEDS [address] [place] [address] Carlo Santana MD 505 [place] [address] Med Refill Social History Tobacco Use Types [...] * Telephone Encounter - Ashley Romaine - 09/16/2022 10:39 AM EDT Tc from pt requesting medication refill on oxyCODONE-acetaminophen (Percocet) 5- 325 MG tablet documented in this encounter Plan of Treatment Upcoming Encounters Date Type Department Care Team (Late st Contact Info) Description 01/02/2025 2:15 PM EDT Clinical Support [facility] MED & PEDS [address] [place] [address] Fariba Gandhi, HUGO 505 [place] [address] documented as of this encounter Visit Diagnoses Not on filedocumented in this encounter Additional Health Concerns Assessment Noted Time PHQ-9 Depression Total Score: 3 06/04/19 23 3:42 PM EDT documented as of this encounter Care Teams Business Unit Director Relationship Specialty Start Date End Date Carlo Santana MD 505 [place] [address] PCP - General Internal Medicine 12/28/17 documented as of this encounter
--- OUTSIDE RECORDS SUMMARY | 2024-12-12 12:35 | XMS_ITS | Encounter Summary ---
Author Organization [email or web address] Address [address] [facility] 7t [place] [address] Care Team Providers Care Sales Process Manager Name Role Phone Carlo Santana MD Primary Care Provider [phone] Reason for Visit * Reason Onset Date Comments Appointment Request 09/16/2023 Encounter Details Date Type Department Care Team ([facility] Contact Info) Description 09/16/2023 Telephone [facility] MED & PEDS [address] [place] [address] Carlo Santana MD 505 [place] [address] Appointment Request Social History Tobacco Use Types [...] requesting telehealth with PCP to discuss medication. Patient Account Analyst attempted to schedule for November but pt declined and stated would like a sooner appointment. Denied triage. Contact pt at [phone] documented in this encounter Plan of Treatment Upcoming Encounters Date Type Department Care Team (Late st Contact Info) Description 01/02/2025 2:15 PM EDT Clinical Support [facility] MED & PEDS [address] [place] [address] Fariba Gandhi, HUGO 505 [place] [address] documented as of this encounter Visit Diagnoses Not on filedocumented in this encounter Additional Health Concerns Assessment Noted Time PHQ-9 Depression Total Score: 3 06/04/19 23 3:42 PM EDT documented as of this encounter Care Teams Sales Process Manager Relationship Specialty Start Date End Date Carlo Santana MD [address] [place] [address] PCP - General Internal Medicine 12/28/17 documented as of this encounter
--- OUTSIDE RECORDS SUMMARY | 2024-12-12 12:35 | XMS_ITS | Encounter Summary ---
Author Organization [employer] Address [address] 7t [place] [address] Care Team Providers Care Area Captain Name Role Phone Carlo Santana MD Primary Care Provider [phone] Reason for Visit * Reason Onset Date Comments Referral 12/01/2023 Encounter Details Date Type Department Care Team ([facility] st Contact Info) Description 12/01/[address] [facility] MEDICINE [address] [place] [address] Carlo Santana MD [address] [facility] [address] [place], [place] [phone] Referral Social History Tobacco Use Types Packs/Day [...] Tc from pt requesting a referral to [facility]. Stated not satisfied with [facility]. Specialty: [facility] Behavioral Health - Adult Outpatient Address: [address] [place] [address] If any questions contact pt at [phone] * Telephone Encounter - Angel Luis Oreilly - 12/01/2023 10:34 AM EDT Tc from patient calling to request a referral for a therapist states has been waiting for a call back from [facility] and has not heard a response documented in this encounter Plan of Treatment Upcoming Encounters Date Type Department Care Team ([facility] st Contact Info) Description 01/02/2025 2:15 PM EDT Clinical Support [facility] MED & PEDS [address] [place] [address] Fariba Gandhi RN 505 [place] [address] documented as of this encounter Visit Diagnoses Not on filedocumented in this encounter Additional Health Concerns Assessment Noted Time PHQ-9 Depression Total Score: 3 06/04/19 23 3:42 PM EDT documented as of this encounter Care Teams Area Captain Relationship Specialty Start Date End Date Carlo Santana MD [address] [place] [address] PCP - General Internal Medicine 12/28/17 documented as of this encounter
--- OUTSIDE RECORDS SUMMARY | 2024-12-12 12:35 | XMS_ITS | Encounter Summary ---
Author Organization [employer] Address [address] [facility] 7t [place] [address] Care Team Providers Care Ocean Rescue Lieutenant Name Role Phone Carlo Santana MD Primary Care Provider [phone] Reason for Visit * Reason Onset Date Comments Med Refill 11/01/2023 Encounter Details Date Type Department Care Team (Late st Contact Info) Description 11/01/2023 Telephone [facility] MEDICINE [address] [place] [address] Carlo Santana MD [address] [place], [place] [phone] Med Refill Social History Tobacco Use Types [...] MG tablet To be sent to: [facility]/pharmacy #[id number] LEATHA PHILLIPS - [address] [place] [address] documented in this encounter Plan of Treatment Upcoming Encounters Date Type Department Care Team (Late st Contact Info) Description 01/02/2025 2:15 PM EDT Clinical Support [facility] MED & PEDS 505 [place] [address] Fariba Gandhi, HUGO 505 [place] [address] documented as of this encounter Visit Diagnoses Not on filedocumented in this encounter Additional Health Concerns Assessment Noted Time PHQ-9 Depression Total Score: 3 06/04/19 23 3:42 PM EDT documented as of this encounter Care Teams Ocean Rescue Lieutenant Relationship Specialty Start Date End Date Carlo Santana MD 505 [place] [address] PCP - General Internal Medicine 12/28/17 documented as of this encounter
--- OUTSIDE RECORDS SUMMARY | 2024-12-12 12:35 | XMS_ITS | Encounter Summary ---
Author Organization [employer] Address [address] [facility] [address] 7t [place] [address] Care Team Providers Care Director Of Business Services Name Role Phone Carlo Santana MD Primary Care Provider [phone] Reason for Visit * Reason Onset Date Comments Nurse Triage 10/31/2023 Encounter Details Date Type Department Care Team ([facility] st Contact Info) Description 10/31/2023 Telephone [facility] MEDICINE 230 [place] [address] Carlo Santaan MD 505 [place], [place] [phone] Nurse Triage Social History Tobacco Use Types [...] need for follow-up with a provider. Suggested [facility] but pt wanted to see PCP for stronger lidocaine patches for her back. Pt reports pain as a constant 7-8/10 and can barely move. Reiterated that pt should be seen for the fall to be properly evaluated and there was not same daycare appt at [facility]. Pt declined [place] and ended [...] [facility] 505 [place] [address] Fariba Gandhi RN 505 [place] [address] documented as of this encounter Visit Diagnoses Not on filedocumented in this encounter Additional Health Concerns Assessment Noted Time PHQ-9 Depression Total Score: 3 06/04/19 23 3:42 PM EDT documented as of this encounter Care Teams Director Of Business Services Relationship Specialty Start Date End Date Carlo Santana MD 505 [place] [address] PCP - General Internal Medicine 12/28/17 documented as of this encounter
--- OUTSIDE RECORDS SUMMARY | 2024-12-12 12:35 | XMS_ITS | Encounter Summary ---
Author Organization [employer] Address [address] [facility] 7t [place] [address] Care Team Providers Care Crust Sorter Name Role Phone Carlo Santana MD Primary Care Provider [phone] Reason for Visit * Reason Onset Date Comments Referral 02/22/2024 Encounter Details Date Type Department Care Team ([facility] st Contact Info) Description 02/22/2024 Telephone [facility] MEDICINE 230 [place] [address] Carlo Santana MD [address] [facility] [address] [place], [place] [phone] Referral Social History Tobacco Use Types Packs/Day [...] second referral for Outpatient Therapy, Callback number [phone] documented in this encounter Plan of Treatment Upcoming Encounters Date Type Department Care Team ([facility] st Contact Info) Description 01/02/2025 2:15 PM EDT Clinical Support [facility] MED & PEDS 505 [place] [address] Fariba Gandhi, RN 505 [place] [address] documented as of this encounter Visit Diagnoses Not on filedocumented in this encounter Additional Health Concerns Assessment Noted Time PHQ-9 Depression Total Score: 15 024 11:50 AM EST documented as of this encounter Care Teams Crust Sorter Relationship Specialty Start Date End Date Carlo Santana MD [address] [place] [address] PCP - General Internal Medicine 12/28/17 documented as of this encounter
--- OUTSIDE RECORDS SUMMARY | 2024-12-12 12:35 | XMS_ITS | Encounter Summary ---
Author Organization [employer] Address [address] [facility] 7t [place] [address] Care Team Providers Care Pens And Pencils Repairer Name Role Phone Carlo Santana MD Primary Care Provider [phone] Reason for Visit * Reason Onset Date Comments Med Refill 02/20/2024 Encounter Details Date Type Department Care Team ([facility] st Contact Info) Description 02/20/2024 Telephone [facility] MEDICINE 230 [place] [address] Carlo Santana MD 505 [place], [place] [phone] Med Refill Social History Tobacco Use Types [...] encounter Miscellaneous Notes * Telephone Encounter - aRnd Savage RN - 02/20/2024 4:47 PM EST Disposable underpads order sent to [employer] and signed rx sent to scan pending decision. * Telephone Encounter - Grabiel Taylor - 02/20/2024 9:08 AM EST Tc from pt stating that the doctor stated that he would prescribe disposable bed pads. Pt would like for them to go to [facility]. If any question you can contact pt at [phone] documented in this encounter Plan of Treatment Upcoming Encounters Date Type Department Care Team (Late st Contact Info) Description 01/02/2025 2:15 PM EDT Clinical Support [facility] MED & PEDS 505 [place] [address] Fariba Gandhi, RN 505 [place] [address] documented as of this encounter Visit Diagnoses Not on filedocumented in this encounter Additional Health Concerns Assessment Noted Time PHQ-9 Depression Total Score: 15 024 11:50 AM EST documented as of this encounter Care Teams Pens And Pencils Repairer Relationship Specialty Start Date End Date Carlo Santana MD [address] [place] [address] PCP - General Internal Medicine 12/28/17 documented as of this encounter
--- OUTSIDE RECORDS SUMMARY | 2024-12-12 12:35 | XMS_ITS | Encounter Summary ---
Author Organization [employer] Address [address] [facility] [address] [address] 7t [place] [address] Care Team Providers Care Executive Sales Assistant Name Role Phone Carlo Santana MD Primary Care Provider [phone] Reason for Visit * Reason Onset Date Comments Nurse Triage 04/12/2023 Encounter Details Date Type Department Care Team ([facility] st Contact Info) Description 04/12/2023 Telephone [facility] MEDICINE 230 [place] [address] Carlo Santana MD 505 [place], [place] [phone] Nurse Triage Social History Tobacco Use Types [...] with disposition and home care reviewed. A[facility] 04/13/23 @ 1120am. Insurance is veriifed as [...] [facility] st Contact Info) Description 01/02/2025 2:15 PM EDT Clinical Support [facility] MED & PEDS 505 [place] [address] Fariba Gandhi, HUGO 505 [place] [address] documented as of this encounter Visit Diagnoses Not on filedocumented in this encounter Additional Health Concerns Assessment Noted Time PHQ-9 Depression Total Score: 3 06/04/19 23 3:42 PM EDT documented as of this encounter Care Teams Executive Sales Assistant Relationship Specialty Start Date End Date Carlo Santana MD 505 [place] [address] PCP - General Internal Medicine 12/28/17 documented as of this encounter
--- OUTSIDE RECORDS SUMMARY | 2024-12-12 12:35 | XMS_ITS | Encounter Summary ---
Author Organization [employer] Address [address] [facility] 7t [place] [address] Care Team Providers Care Vet Tech Name Role Phone Carlo Santana MD Primary Care Provider [phone] Reason for Visit * Reason Comments Med Change Request Encounter Details Date Type Department Care Team ([facility] st Contact Info) Description 08/14/2024 Refill [facility] MEDICINE 230 [place] [address] Carlo Santana MD 505 [place], [place] [phone] Bipolar affective disorder, remission status unspecified (CMS/HCC) [...] Upcoming Encounters Date Type Department Care Team ([facility] st Contact Info) Description 01/02/2025 2:15 PM EDT Clinical Support [facility] MED & PEDS 505 [place] [address] Fariba Gandhi, HUGO 505 [place] [address] documented as of this encounter Visit Diagnoses Diagnosis Bipolar affective disorder, remission status unspecified (CMS/HCC) (HCC) documented in this encounter Additional Health Concerns Assessment Noted Time PHQ-9 Depression Total Score: 15 024 11:50 AM EST documented as of this encounter Care Teams Vet Tech Relationship Specialty Start Date End Date Carlo Santana MD 505 [place] [address] PCP - General Internal Medicine 12/28/17 documented as of this encounter
--- OUTSIDE RECORDS SUMMARY | 2024-12-12 12:35 | XMS_ITS | Encounter Summary ---
Author Organization [employer] Address [address] [facility] 7t [place] [address] Care Team Providers Care Ribbon Cutter Name Role Phone Carlo Santana MD Primary Care Provider [phone] Reason for Visit * Reason Onset Date Comments Med Refill 05/04/2023 Encounter Details Date Type Department Care Team (Late st Contact Info) Description 05/04/2023 Telephone [facility] MEDICINE 230 [place] [address] Carlo Santana MD [address] [facility] [address] [place], [place] [phone] Med Refill Social History Tobacco Use Types [...] 200 MG capsule To be sent to: [facility]/pharmacy #[id number] LEATHA PHILLIPS - [address] [facility] documented in this encounter Plan of Treatment Upcoming Encounters Date Type Department Care Team (Late st Contact Info) Description 01/02/2025 2:15 PM EDT Clinical Support [facility] MED & PEDS [address] [place] [address] Fariba Gandhi, HUGO 505 [place] [address] documented as of this encounter Visit Diagnoses Not on filedocumented in this encounter Additional Health Concerns Assessment Noted Time PHQ-9 Depression Total Score: 3 06/04/19 23 3:42 PM EDT documented as of this encounter Care Teams Ribbon Cutter Relationship Specialty Start Date End Date Carlo Santana MD 505 [place] [address] PCP - General Internal Medicine 12/28/17 documented as of this encounter
--- OUTSIDE RECORDS SUMMARY | 2024-12-12 12:35 | XMS_ITS | Encounter Summary ---
Author Organization [employer] Address [address] [facility] 7 [place] [address] Care Team Providers Care Accounting System Expert Name Role Phone Carlo Santana MD Primary Care Provider [phone] Encounter Details Date Type Department Care Team ([facility] Contact Info[facility] Description 02/08/2024 Orders Only [facility] MED & PEDS [address] [place], [place] [phone] Carlo Santana MD [address] [place], [place] [phone] [place] (generalized anxiety disorder) (Primary Dx) Social [...] Team ([facility] st Contact Info) Description 01/02/2025 2:15 PM EDT Clinical Support [facility] MED & PEDS [address] [place] [address] Fariba Gandhi, HUGO 505 [place] [address] documented as of this encounter Visit Diagnoses Diagnosis [place] (generalized anxiety disorder)- Primary Generalized anxiety disorder documented in this encounter Additional Health Concerns Assessment Noted Time PHQ-9 Depression Total Score: 15 024 11:50 AM EST documented as of this encounter Care Teams Accounting System Expert Relationship Specialty Start Date End Date Carlo Santana MD 505 [place] [address] PCP - General Internal Medicine 12/28/17 documented as of this encounter
--- OUTSIDE RECORDS SUMMARY | 2024-12-12 12:35 | XMS_ITS | Encounter Summary ---
Author Organization [employer] Address [address] [facility] 7t [place] [address] Care Team Providers Care Web Graphic Designer Name Role Phone Carlo Santana MD Primary Care Provider [phone] Reason for Visit * Reason Comments Med Refill Encounter Details Date Type Department Care Team ([facility] st Contact Info) Description 03/31/2023 Refill [facility] MEDICINE 230 [place] [address] Carlo Santana MD [address] [facility] [address] [place], [place] [phone] Chronic left-sided low back pain with left-sided [...] [facility] MED & PEDS 505 [place] [address] Fariba Gandhi RN 505 [place] [address] documented as of this encounter Visit Diagnoses Diagnosis Chronic left-sided low back pain with left-sided sciatica Low back pain radiating down leg documented in this encounter Additional Health Concerns Assessment Noted Time PHQ-9 Depression Total Score: 3 06/04/19 23 3:42 PM EDT documented as of this encounter Care Teams Web Graphic Designer Relationship Specialty Start Date End Date Carlo Santana MD 505 [place] [address] PCP - General Internal Medicine 12/28/17 documented as of this encounter
--- OUTSIDE RECORDS SUMMARY | 2024-12-12 12:35 | XMS_ITS | Encounter Summary ---
Author Organization [employer] Address [address] 7t [place] [address] Care Team Providers Care Yard Loader Operator Name Role Phone Carlo Santana MD Primary Care Provider [phone] Encounter Details Date Type Department Care Team (Late st Contact Info) Description 11/02/2023 Orders Only [facility] 230 [place] [address] Carlo Santana MD [address] [facility] [address] [place], [place] [phone] Chronic left-sided low back pain with left-sided [...] [facility] 505 [place] [address] Fariba Gandhi RN 505 [place] [address] documented as of this encounter Visit Diagnoses Diagnosis Chronic left-sided low back pain with left-sided sciatica documented in this encounter Additional Health Concerns Assessment Noted Time PHQ-9 Depression Total Score: 3 06/04/19 23 3:42 PM EDT documented as of this encounter Care Teams Yard Loader Operator Relationship Specialty Start Date End Date Carlo Santana MD 505 [place] [address] PCP - General Internal Medicine 12/28/17 documented as of this encounter
--- OUTSIDE RECORDS SUMMARY | 2024-12-12 12:35 | XMS_ITS | Encounter Summary ---
Author Organization [employer] Address [address] [facility] 7t [place] [address] Care Team Providers Care Med Care Manager Name Role Phone Carlo Santana MD Primary Care Provider [phone] Reason for Visit * Reason Onset Date Comments Call Back Request 10/13/2023 Encounter Details Date Type Department Care Team ([facility] st Contact Info) Description 10/13/2023 Telephone [facility] MEDICINE 230 [place] [address] Carlo Santana MD [address] [facility] [address] [place], [place] [phone] Call Back Request Social History Tobacco Use [...] pt requesting a call back 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 No further details provided. documented in this encounter Plan of Treatment Upcoming Encounters Date Type Department Care Team (Late st Contact Info) Description 01/02/2025 2:15 PM EDT Clinical Support [facility] MED & PEDS 505 [place] [address] Fariba Gadnhi, HUGO 505 [place] [address] documented as of this encounter Visit Diagnoses Not on filedocumented in this encounter Additional Health Concerns Assessment Noted Time PHQ-9 Depression Total Score: 3 06/04/19 23 3:42 PM EDT documented as of this encounter Care Teams Med Care Manager Relationship Specialty Start Date End Date Carlo Santana MD 505 [place] [address] PCP - General Internal Medicine 12/28/17 documented as of this encounter
--- OUTSIDE RECORDS SUMMARY | 2024-12-12 12:35 | XMS_ITS | Encounter Summary ---
Author Organization [employer] Address [address] [facility] 7t [place] [address] Care Team Providers Care Foam Molder Name Role Phone Carlo Santana MD Primary Care Provider [phone] Encounter Details Date Type Department Care Team ([facility] st Contact Info) Description 12/21/2023 Orders Only [facility] CHC MED & PEDS [address] [place], [place] [phone] Carlo Santana MD [address] [place], [place] [phone] Hypoproteinemia (CMS/HCC) (Primary Dx); Diarrhea, unspecified type [...] 01/02/2025 2:15 PM EDT Clinical Support [facility] MED & PEDS [address] [place] [address] Fariba Gandhi, RN 505 [place] [address] documented as of this encounter Procedures Procedure Name Priority Date/Time Associated Diagnosis Comments GASTROINTESTINAL PANEL Routine 5:33 PM EDT Diarrhea, unspecified type documented in this encounter Results * Gastrointestinal panel (aka ova & parasites) (12/24/2023 5:33 PM EDT) Campylobacter Not Detected Not Detect. [facility] Plesiomonas shigelloides Not Detected Not Detect. [facility] Salmonella Not Detected Not Detect. [facility] Vibrio Not Detected Not Detect. [facility] Vibrio cholerae Not Detected Not Detect. [facility] YERSINIA ENTEROCOLITICA Not Detected Not Detect. [facility] Enteroaggregative E. coli (EAEC) Not Detected Not Detect. [facility] Enteropathogenic E. coli (EPEC) Not Detected Not Detect. [facility] Enterotoxigenic E. coli (ETEC) lt/st Not Detected Not Detect. [facility] Shiga-like toxin-producing E. coli (STEC) stx1/stx2 Not Detected Not Detect. [facility] E coli O157 Not applicable Not Detect. [facility] Comment:E. coli containing t he O157 antigen are a subset ofShiga-like toxin- producing E. coli (STEC). Shigella/Enteroinvasive E. coli (EIEC) Not Detected Not Detect. [facility] Cryptosporidium Not Detected Not Detect. [facility] Cyclospora cayetanensis Not Detected Not Detect. [facility] Entamoeba histolytica Not Detected Not Detect. [facility] Giardia lamblia Not Detected Not Detect. [facility] Adenovirus F 40/41 Not Detected Not Detect. [facility] Astrovirus Not Detected Not Detect. [facility] Norovirus GI/GII Not Detected Not Detect. [facility] Rotavirus A Not Detected Not Detect. [facility] Sapovirus Not Detected Not Detect. [facility] Comment: All results must be [...] assay is performed by Multiplexed PCR, utilizing [employer] Array. Stool Rectal contents / Unknown 12/24/2023 5:33 PM EDT 12/27/2023 12:21 PM EDT us Thevenin Beauzile MD LAB MICROBIOLOGY - GENERAL ORDERABLES Final Result [facility] [address] [place] [address] [phone] documented in this encounter Visit Diagnoses Diagnosis Hypoproteinemia (CMS/HCC)- Primary Other disorders of plasma protein metabolism Diarrhea, unspecified type documented in this encounter Additional Health Concerns Assessment Noted Time PHQ-9 Depression Total Score: 3 06/04/19 23 3:42 PM EDT documented as of this encounter Care Teams Foam Molder Relationship Specialty Start Date End Date Carlo Santana MD [address] [place] [address] PCP - General Internal Medicine 12/28/17 documented as of this encounter
--- OUTSIDE RECORDS SUMMARY | 2024-12-12 12:35 | XMS_ITS | Encounter Summary ---
Author Organization [employer] Address [address] [facility] 7t [place] [address] Care Team Providers Care Physician Ophthalmologist Name Role Phone Carlo Santana MD Primary Care Provider [phone] Reason for Visit * Reason Onset Date Comments Prior Authorization 09/14/2023 Encounter Details Date Type Department Care Team ([facility] Contact Info) Description 09/14/2023 Telephone [facility] CHC MED & PEDS [address] [place] [address] Carol Santana MD 505 [place] [address] Prior Authorization Social History Tobacco Use Types [...] Description 01/02/2025 2:15 PM EDT Clinical Support [facility] CHC MED & PEDS [address] [place] [address] Fariba Gandhi, HUGO [address] [place] [address] documented as of this encounter Visit Diagnoses Diagnosis Chronic left-sided low back pain with left-sided sciatica documented in this encounter Additional Health Concerns Assessment Noted Time PHQ-9 Depression Total Score: 3 06/04/19 23 3:42 PM EDT documented as of this encounter Care Teams Physician Ophthalmologist Relationship Specialty Start Date End Date Carlo Santana MD [address] [place] [address] PCP - General Internal Medicine 12/28/17 documented as of this encounter
--- OUTSIDE RECORDS SUMMARY | 2024-12-12 12:35 | XMS_ITS | Encounter Summary ---
Author Organization [employer] Address [address] [facility] 7t [place] [address] Care Team Providers Care Engineering Team Supervisor Name Role Phone Carlo Santana MD Primary Care Provider [phone] Encounter Details Date Type Department Care Team ([facility] st Contact Info) Description 09/16/2023 Orders Only [facility] CHC MED & PEDS [address] [place], [place] [phone] Carlo Santana MD [address] [place], [place] [phone] Bipolar affective disorder, remission status unspecified ([facility]) Social History Tobacco Use Types [...] [facility] MED & PEDS [address] [place] [address] Fariba Gandhi RN 505 [place] [address] documented as of this encounter Visit Diagnoses Diagnosis Bipolar affective disorder, remission status unspecified (CMS/HCC) (HCC) documented in this encounter Additional Health Concerns Assessment Noted Time PHQ-9 Depression Total Score: 3 06/04/19 23 3:42 PM EDT documented as of this encounter Care Teams Engineering Team Supervisor Relationship Specialty Start Date End Date Carlo Santana MD [address] [place] [address] PCP - General Internal Medicine 12/28/17 documented as of this encounter
--- OUTSIDE RECORDS SUMMARY | 2024-12-12 12:35 | XMS_ITS | Encounter Summary ---
Author Organization [employer] Address [address] [place] [address] 7 [place] [address] Care Team Providers Care Fuel Efficient Aircraft Designer Name Role Phone Carlo Santana MD Primary Care Provider [phone] Reason for Visit * Reason Comments Med Refill Encounter Details Date Type Department Care Team (Late st Contact Info) Description 05/06/2022 Refill [facility] MED & PEDS [address] [place] [address] Servando Howard MD 505 [place] [address] Chronic left-sided low back pain with left-sided [...] 2:15 PM EDT Clinical Support [facility] MED & PEDS [address] [place] [address] Fariba Gandhi RN 505 [place], [place] [phone] documented as of this encounter Visit Diagnoses Diagnosis Chronic left-sided low back pain with left-sided sciatica documented in this encounter Care Teams Fuel Efficient Aircraft Designer Relationship Specialty Start Date End Date Carlo Santana MD [address] [place] [address] PCP - General Internal Medicine 12/28/17 documented as of this encounter
--- OUTSIDE RECORDS SUMMARY | 2024-12-12 12:35 | XMS_ITS | Encounter Summary ---
Author Organization [employer] Address [address] [facility] 7t [place] [address] Care Team Providers Care Brewer Helper Name Role Phone Carlo Santana MD Primary Care Provider [phone] Reason for Visit * Reason Comments Med Refill Encounter Details Date Type Department Care Team ([facility] st Contact Info) Description 11/02/2023 Refill [facility] MEDICINE [address] [place] [address] Carlo Santana MD [address] [facility] [address] [place], [place] [phone] Chronic left-sided low back pain with left-sided [...] Upcoming Encounters Date Type Department Care Team ([facility] st Contact Info) Description 01/02/2025 2:15 PM EDT Clinical Support [facility] MED & PEDS 505 [place] [address] Fariba Gandhi, HUGO [address] [place] [address] documented as of this encounter Visit Diagnoses Diagnosis Chronic left-sided low back pain with left-sided sciatica documented in this encounter Additional Health Concerns Assessment Noted Time PHQ-9 Depression Total Score: 3 06/04/19 23 3:42 PM EDT documented as of this encounter Care Teams Brewer Helper Relationship Specialty Start Date End Date Carlo Santana MD 505 [place] [address] PCP - General Internal Medicine 12/28/17 documented as of this encounter
--- OUTSIDE RECORDS SUMMARY | 2024-12-12 12:35 | XMS_ITS | Encounter Summary ---
Author Organization [email or web address] Address [address] [facility] 7t [place] [address] Care Team Providers Care Custom Grinder Name Role Phone Carlo Santana MD Primary Care Provider [phone] Encounter Details Date Type Department Care Team ([facility] st Contact Info) Description 11/07/2023 Orders Only [facility] CHC MED & PEDS [address] [place], [place] [phone] Carlo Santana MD 505 [place], [place] [phone] Muscle spasm Social History Tobacco Use Types [...] Description 01/02/2025 2:15 PM EDT Clinical Support [facility] MED & PEDS [address] [place] [address] Fariba Gandhi, HUGO 505 [place] [address] documented as of this encounter Visit Diagnoses Diagnosis Muscle spasm Spasm of muscle documented in this encounter Additional Health Concerns Assessment Noted Time PHQ-9 Depression Total Score: 3 06/04/19 23 3:42 PM EDT documented as of this encounter Care Teams Custom Grinder Relationship Specialty Start Date End Date Carlo Santana MD [address] [place] [address] PCP - General Internal Medicine 12/28/17 documented as of this encounter
--- OUTSIDE RECORDS SUMMARY | 2024-12-12 12:35 | XMS_ITS | Encounter Summary ---
Author Organization [employer] Address [address] [facility] 7t [place] [address] Care Team Providers Care Head Insulation Board Saw Operator Name Role Phone Carlo Santana MD Primary Care Provider [phone] Reason for Visit * Reason Onset Date Comments Referral 08/09/2024 Encounter Details Date Type Department Care Team ([facility] st Contact Info) Description 08/09/[address] [facility] MEDICINE [address] [place] [address] Carlo Santaan MD [address] [place], [place] [phone] Referral Social History Tobacco Use Types Packs/Day [...] * Telephone Encounter - Edna Espinal - 08/10/2024 9:54 AM EDT Message left for patient to [facility] for pain management. She refused an appointment at [facility] but was seen at [facility] pain clinic in June. * Telephone Encounter - Patricia Espinal - 08/09/2024 11:39 AM EDT Telephone call received from patient requesting a referral to Pain Management at [facility]. Patient reports had a previous referral, but states it has . documented in this encounter Plan of Treatment Upcoming Encounters Date Type Department Care Team ([facility] st Contact Info) Description 01/02/2025 2:15 PM EDT Clinical Support [facility] MED & PEDS 505 [place] [address] Fariba Gandhi, HUGO 505 [place] [address] documented as of this encounter Visit Diagnoses Not on filedocumented in this encounter Additional Health Concerns Assessment Noted Time PHQ-9 Depression Total Score: 15 024 11:50 AM EST documented as of this encounter Care Teams Head Insulation Board Saw Operator Relationship Specialty Start Date End Date Carlo Santana MD [address] [place] [address] PCP - General Internal Medicine 12/28/17 documented as of this encounter
--- OUTSIDE RECORDS SUMMARY | 2024-12-12 12:35 | XMS_ITS | Encounter Summary ---
Author Organization [employer] Address [address] [facility] 7t [place] [address] Care Team Providers Care Entry Level Truck Driver Name Role Phone Carlo Santana MD Primary Care Provider [phone] Reason for Visit * Reason Onset Date Comments Med Refill 11/02/2023 Encounter Details Date Type Department Care Team (Late st Contact Info) Description 11/02/2023 Telephone [facility] MEDICINE [address] [place] [address] Carlo Santana MD [address] [facility] [address] [place], [place] [phone] Med Refill Social History Tobacco Use Types [...] script for oxycodone to be sent to [facility] on file. * Telephone Encounter - Quan Mena - 11/02/2023 9:15 AM EDT Tc from pt stating oxyCODONE-acetaminophen (Percocet) 7.5-325 MG tablet was sent to the wrong pharmacy and was advised by the pharmacy to contact pcp to have script transferred to the right pharmacy.Pt is requesting to have script sent to [facility]. If any questions you can contact pt at [phone]. documented in this encounter Plan of Treatment Upcoming Encounters Date Type Department Care Team (Late st Contact Info) Description 01/02/2025 2:15 PM EDT Clinical Support [facility] MED & PEDS 505 [place] [address] Fariba Gandhi, RN 505 [place] [address] documented as of this encounter Visit Diagnoses Not on filedocumented in this encounter Additional Health Concerns Assessment Noted Time PHQ-9 Depression Total Score: 3 06/04/19 23 3:42 PM EDT documented as of this encounter Care Teams Entry Level Truck Driver Relationship Specialty Start Date End Date Carlo Santana MD [address] [place] [address] PCP - General Internal Medicine 12/28/17 documented as of this encounter
--- OUTSIDE RECORDS SUMMARY | 2024-12-12 12:35 | XMS_ITS | Encounter Summary ---
Author Organization [employer] Address [address] [facility] 7t [place] [address] Care Team Providers Care Sales Planning Analyst Name Role Phone Carlo Santana MD Primary Care Provider [phone] Reason for Visit * Reason Onset Date Comments Med Refill 09/17/2023 Encounter Details Date Type Department Care Team (Late st Contact Info) Description 09/17/2023 Refill [facility] MEDICINE [address] [place] [address] Carlo Santana MD [address] [facility] [address] [place], [place] [phone] Chronic left-sided low back pain with left-sided [...] Upcoming Encounters Date Type Department Care Team ([facility] st Contact Info) Description 01/02/2025 2:15 PM EDT Clinical Support [facility] MED & PEDS [address] [place] [address] Fariba Gandhi RN 505 [place] [address] documented as of this encounter Visit Diagnoses Diagnosis Chronic left-sided low back pain with left-sided sciatica documented in this encounter Additional Health Concerns Assessment Noted Time PHQ-9 Depression Total Score: 3 06/04/19 23 3:42 PM EDT documented as of this encounter Care Teams Sales Planning Analyst Relationship Specialty Start Date End Date Carlo Santana MD 505 [place] [address] PCP - General Internal Medicine 12/28/17 documented as of this encounter
--- OUTSIDE RECORDS SUMMARY | 2024-12-12 12:35 | XMS_ITS | Encounter Summary ---
Author Organization [employer] Address [address] [facility] [address] 7t [place] [address] Care Team Providers Care Alliance Consultant Name Role Phone Carlo Santana MD Primary Care Provider [phone] Reason for Visit * Reason Onset Date Comments Med Refill 02/28/2024 Medication Question 02/28/2024 Encounter Details Date Type Department Care Team ([facility] st Contact Info) Description 02/28/2024 Telephone [facility] MEDICINE [address] [place] [address] Carlo Santana MD [address] [facility] [address] [place], [place] [phone] Med Refill; Medication Question Social History Tobacco [...] tablet If any questions contact pt at [phone] documented in this encounter Plan of Treatment Upcoming Encounters Date Type Department Care Team ([facility] st Contact Info) Description 01/02/2025 2:15 PM EDT Clinical Support [facility] CHC MED & PEDS [address] [place] [address] Fariba Gandhi, HUGO 505 [place] [address] documented as of this encounter Visit Diagnoses Not on filedocumented in this encounter Additional Health Concerns Assessment Noted Time PHQ-9 Depression Total Score: 15 024 11:50 AM EST documented as of this encounter Care Teams Alliance Consultant Relationship Specialty Start Date End Date Carlo Santana MD 505 [place] [address] PCP - General Internal Medicine 12/28/17 documented as of this encounter
--- OUTSIDE RECORDS SUMMARY | 2024-12-12 12:35 | XMS_ITS | Encounter Summary ---
Author Organization [employer] Address [address] [facility] 7t [place] [address] Care Team Providers Care Guide Cruise Name Role Phone Carlo Santana MD Primary Care Provider [phone] Encounter Details Date Type Department Care Team ([facility] st Contact Info) Description 05/02/2023 Orders Only [facility] CHC MED & PEDS [address] [place], [place] [phone] Carlo Santana MD 505 [place], [place] [phone] New daily persistent headache (Primary Dx) Social [...] 01/02/2025 2:15 PM EDT Clinical Support [facility] CHC MED & PEDS [address] [place] [address] Fariba Gandhi RN 505 [place] [address] documented as of this encounter Procedures Procedure [...] PM EST Narrative 05/23/2023 11:39 AM EDT [facility] [address] [place] [address] Magnetic Resonance Report Signed Patient: Peri Sandy MR#: [id number] 338 : 1980 Acct:[id number] Age/Sex: 42 / F ADM Date: 05/18/23 Loc: HO.MRI Attending Dr: Karl VICTOR Ordering Physician: Karl Meade Date of Service: 05/18/23 Procedure(s): MR lumbar spine wo con Accession Number(s): [id number] cc: Carlo Santana MD; Karl eMade EXAMINATION: MR LUMBAR SPINE WITHOUT CONTRAST CLINICAL [...] interval compression fractures. DISC SPACES AND ENDPLATES: Tiynahbo-kx-mqjqbd intervertebral disc space height loss asymmetric to the left at L4-L5 with disc desiccation stable in appearance. Uguk-pu-fbiubneh disc volume loss at L3-L4 asymmetric to the left, slightly progressed from previous exam with a stable small Schmorl's node along the superior endplate of L4 on the left. Minor spondylosis is unchanged. Mild disc volume loss at L2-L3 with disc desiccation is stable. Pqshgrwn-rp-lcuqmm intervertebral disc space height loss asymmetric to [...] previous study. No significant central canal stenosis. Nqdg-nu-ayaohweb bilateral facet joint arthropathy is stable with [...] the exam. Within the pelvis on the fitness attendant view, there is a 5.5 cm cystic structure in the expected location of the right adnexa, similar in appearance to the previous study, based on evaluation of the fitness attendant view. MR/MR lumbar spine wo con IMPRESSION: [...] nerve roots bilaterally progressed from previous study. Queqbqek-vy-ddaxub left and bovd-mm-wcemdwuy right-sided neural foraminal stenosis at L3-L4, similar [...] location of the right adnexa on the fitness attendant view similar to the previous study. As noted on the previous study, this likely reflects a physiologic right ovarian cyst but is not definitely characterized as simple-appearing based on this study and therefore follow up ultrasound may be indicated. Dictated By: JOVANY BARROS MD Signed By: <Electronically signed by JOVANY BARROS MD in OV> 05/23/23 1135 DD/ 06 TD/TT: Paediatrician: Procedure Note Donotuseinterpreter, Image - 05/23/[address] [address] Magnetic Resonance Report Signed Patient: Peri Sandy [facility]#: [id number] : 1980Acct:[id number] Age/Sex: 42 / FADM Date: 05/18/23 Loc: HO.MRI Attending Dr: Karl VICTOR Ordering Physician: Karl Meade Date of Service: 05/18/23 Procedure(s): MR lumbar spine wo con Accession Number(s): [id number] cc: Carlo Santana MD; Karl Meade EXAMINATION: [...] interval compression fractures. DISC SPACES AND ENDPLATES: Uuszjcgb-ov-uvdtzt intervertebral disc space height loss asymmetric to the left at L4-L5 with disc desiccation stable in appearance. Ehly-ef-ctnsfoqj disc volume loss at L3-L4 asymmetric to the left, slightly progressed from previous exam with a stable small Schmorl's node along the superior endplate of L4 on the left. Minor spondylosis is unchanged. Mild disc volume loss at L2-L3 with disc desiccation is stable. Seuarawy-rc-aevjeo intervertebral disc space height loss asymmetric to [...] previous study. No significant central canal stenosis. Mmyv-dc-pynuaehz bilateral facet joint arthropathy is stable with [...] the exam. Within the pelvis on the fitness attendant view, there is a 5.5 cm cystic structure in the expected location of the right adnexa, similar in appearance to the previous study, based on evaluation of the fitness attendant view. MR/MR lumbar spine wo con IMPRESSION: [...] nerve roots bilaterally progressed from previous study. Dsplltvr-xd-wkvrir left and mvyl-sn-hovuamdy right-sided neural foraminal stenosis at L3-L4, similar [...] location of the right adnexa on the fitness attendant view similar to the previous study. As noted on the previous study, this likely reflects a physiologic right ovarian cyst but is not definitely characterized as simple-appearing based on this study and therefore follow up ultrasound may be indicated. Dictated By: JOVANY BARROS MD Signed By: <Electronically signed by JOVANY BARROS MD in OV> 05/23/23 1135 DD/ 06 TD/TT: Paediatrician: us [facility] External Provider IMG MRI PROCEDURES Final Result * US RETROPERITONEAL LIMITED (05/17/2023 3:44 PM EST) Anatomical Region Laterality Modality Abdomen Ultrasound 05/17/2023 3:44 PM EST Narrative 05/19/2023 7:57 PM EST [address] [address] Ultrasound Report Signed Patient: Peri Sandy MR#: [id number] 338 : 1980 Acct:[id number] Age/Sex: 42 / F ADM Date: 05/17/23 Loc: HO.US Attending Dr: Luis Manuel Singh MD Ordering Physician: Luis Manuel Singh MD Date of Service: 05/17/23 Procedure(s): US retroperitoneal limited Accession Number(s): [id number] cc: Luis Manuel Singh MD; Carlo Santana [...] Nidhi Shaw MD in OV> 05/19/231952 DD/ 43 TD/TT: Paediatrician: Procedure Note Wilfredo, Image - 05/19/2023 [place] [address] Ultrasound Report Signed Patient: Peri Sandy [facility]#: [id number] 338 : 1980Acct:[id number] Age/Sex: 42 / FADM Date: 05/17/23 Loc: HO.US Attending Dr: Luis Manuel Singh MD Ordering Physician: Luis Manuel Singh MD Date of Service: 05/17/23 Procedure(s): US retroperitoneal limited Accession Number(s): [id number] cc: Luis Manuel Singh MD; Carlo Santana [...] Nidhi Shaw MD in OV> 05/19/231952 DD/ 43 TD/TT: Paediatrician: us [facility] External Provider IMG US PROCEDURES Final Result documented in this encounter Visit Diagnoses Diagnosis New daily persistent headache- Primary documented in this encounter Additional Health Concerns Assessment Noted Time PHQ-9 Depression Total Score: 3 06/04/19 23 3:42 PM EDT documented as of this encounter Care Teams Guide Cruise Relationship Specialty Start Date End Date Carlo Santana MD [address] [place] [address] PCP - General Internal Medicine 12/28/17 documented as of this encounter
--- OUTSIDE RECORDS SUMMARY | 2024-12-12 12:35 | XMS_ITS | Encounter Summary ---
Author Organization [employer] Address [address] [facility] 7t [place] [address] Care Team Providers Care Toe Lining Closer Name Role Phone Carlo Santana MD Primary Care Provider [phone] Reason for Visit * Reason Onset Date Comments Med Refill 02/20/2024 Encounter Details Date Type Department Care Team ([facility] st Contact Info) Description 02/20/2024 Telephone [facility] MEDICINE [address] [place] [address] Carlo Santana MD 505 [place], [place] [phone] Med Refill Social History Tobacco Use Types [...] (1000 UT) capsule To be sent to: [facility]/pharmacy #[id number] LEATHA PHILLIPS - [address] [facility] documented in this encounter Plan of Treatment Upcoming Encounters Date Type Department Care Team ([facility] st Contact Info) Description 01/02/2025 2:15 PM EDT Clinical Support [facility] MED & PEDS 505 [place] [address] Fariba Gandhi RN 505 [facility] [place] [address] documented as of this encounter Visit Diagnoses Not on filedocumented in this encounter Additional Health Concerns Assessment Noted Time PHQ-9 Depression Total Score: 15 024 11:50 AM EST documented as of this encounter Care Teams Toe Lining Closer Relationship Specialty Start Date End Date Carlo Santana MD 505 [place] [address] PCP - General Internal Medicine 12/28/17 documented as of this encounter
--- OUTSIDE RECORDS SUMMARY | 2024-12-12 12:35 | XMS_ITS | Encounter Summary ---
Author Organization [employer] Address [address] [facility] 7t [place] [address] Care Team Providers Care Racebook Writer Name Role Phone Carlo Santana MD Primary Care Provider [phone] Reason for Visit * Reason Onset Date Comments Med Refill 03/01/2023 Encounter Details Date Type Department Care Team ([facility] st Contact Info) Description 03/01/[address] [facility] MEDICINE 230 [place] [address] Carlo Santana MD [address] [place], [place] [phone] Med Refill Social History Tobacco Use Types [...] refill on oxyCODONE-acetaminophen (Percocet) 5-325 MG tablet [facility]/pharmacy #[id number] LEATHA PHILLIPS - [address] [facility] documented in this encounter Plan of Treatment Upcoming Encounters Date Type Department Care Team (Late st Contact Info) Description 01/02/2025 2:15 PM EDT Clinical Support [facility] MED & PEDS 505 [place] [address] Fariba Gandhi, HUGO 505 [place] [address] documented as of this encounter Visit Diagnoses Not on filedocumented in this encounter Additional Health Concerns Assessment Noted Time PHQ-9 Depression Total Score: 3 06/04/19 23 3:42 PM EDT documented as of this encounter Care Teams Racebook Writer Relationship Specialty Start Date End Date Carlo Santana MD 505 [place] [address] PCP - General Internal Medicine 12/28/17 documented as of this encounter
--- OUTSIDE RECORDS SUMMARY | 2024-12-12 12:35 | XMS_ITS | Encounter Summary ---
Author Organization [employer] Address [address] [place] [address] 7 [place] [address] Care Team Providers Care Director Audience Marketing Name Role Phone Carlo Santana MD Primary Care Provider [phone] Reason for Visit * Reason Comments Med Refill Encounter Details Date Type Department Care Team (Late st Contact Info) Description 05/19/2022 Refill [facility] MED & PEDS 505 [place] [address] Servando Howard MD 505 [place] [address] Chronic left-sided low back pain with left-sided [...] [facility] MED & PED[facility] [address] [place] [address] Fariba Gandhi RN 505 [place], [place] [phone] documented as of this encounter Visit Diagnoses Diagnosis Chronic left-sided low back pain with left-sided sciatica documented in this encounter Care Teams Director Audience Marketing Relationship Specialty Start Date End Date Carlo Santana MD [address] [place] [address] PCP - General Internal Medicine 12/28/17 documented as of this encounter
--- OUTSIDE RECORDS SUMMARY | 2024-12-12 12:35 | XMS_ITS | Encounter Summary ---
Author Organization [employer] Address [address] [facility] 7t [place] [address] Care Team Providers Care Chili Maker Name Role Phone Carlo Santana MD Primary Care Provider [phone] Reason for Visit * Reason Onset Date Comments Med Refill 04/21/2023 Encounter Details Date Type Department Care Team (Late st Contact Info) Description 04/21/2023 Refill [facility] MEDICINE 230 [place] [address] Carlo Santana MD [address] [place], [place] [phone] Low back pain radiating down leg Social [...] Upcoming Encounters Date Type Department Care Team ([facility] st Contact Info) Description 01/02/2025 2:15 PM EDT Clinical Support [facility] MED & PEDS 505 [place] [address] Fariba Gandhi RN 505 [place] [address] documented as of this encounter Visit Diagnoses Diagnosis Low back pain radiating down leg documented in this encounter Additional Health Concerns Assessment Noted Time PHQ-9 Depression Total Score: 3 06/04/19 23 3:42 PM EDT documented as of this encounter Care Teams Chili Maker Relationship Specialty Start Date End Date Carlo Santana MD 505 [place] [address] PCP - General Internal Medicine 12/28/17 documented as of this encounter
--- OUTSIDE RECORDS SUMMARY | 2024-12-12 12:35 | XMS_ITS | Encounter Summary ---
Author Organization [employer] Address [address] [facility] 7t [place] [address] Care Team Providers Care Pyrometer Temperature Regulator Name Role Phone Carlo Santana MD Primary Care Provider [phone] Reason for Visit * Reason Onset Date Comments Call Back Request 07/10/2024 Encounter Details Date Type Department Care Team ([facility] st Contact Info) Description 07/10/2024 Telephone [facility] MEDICINE [address] [place] [address] Carlo Santana MD [address] [facility] [address] [place], [place] [phone] Call Back Request Social History Tobacco Use [...] Fariba regarding her appt, Contact pt at [phone] documented in this encounter Plan of Treatment Upcoming Encounters Date Type Department Care Team ([facility] st Contact Info) Description 01/02/2025 2:15 PM EDT Clinical Support [facility] MED & PEDS 505 [place] [address] Fariba Gandhi RN 505 [place] [address] documented as of this encounter Visit Diagnoses Not on filedocumented in this encounter Additional Health Concerns Assessment Noted Time PHQ-9 Depression Total Score: 15 024 11:50 AM EST documented as of this encounter Care Teams Pyrometer Temperature Regulator Relationship Specialty Start Date End Date Carlo Santana MD 505 [place] [address] PCP - General Internal Medicine 12/28/17 documented as of this encounter
--- OUTSIDE RECORDS SUMMARY | 2024-12-12 12:35 | XMS_ITS | Encounter Summary ---
Author Organization [employer] Address [address] [place] [address] 7 [place] [address] Care Team Providers Care Biofuels Plant Construction Worker Name Role Phone Carlo Santana MD Primary Care Provider [phone] Reason for Visit * Reason Onset Date Comments Appointment Request 05/04/2022 Encounter Details Date Type Department Care Team ([facility] Contact Info) Description 05/04/2022 Telephone [facility] CH[facility] MED & PEDS 505 [place] [address] Carlo Santana MD 505 [place] [address] Appointment Request Social History Tobacco Use Types [...] done for the low back pain but [facility] advised to pt that she is not ableto make the appt , the provider has to make the appt for her. Please contact pt at [phone] documented in this encounter Plan of Treatment Upcoming Encounters Date Type Department Care Team ([facility] st Contact Info) Description 01/02/2025 2:15 PM EDT Clinical Support [facility] MED & PEDS 505 [place] [address] Fariba Gandhi, HUGO 505 [place] [address] documented as of this encounter Visit Diagnoses Not on filedocumented in this encounter Care Teams Biofuels Plant Construction Worker Relationship Specialty Start Date End Date Carlo Santana MD 505 [place] [address] PCP - General Internal Medicine 12/28/17 documented as of this encounter
--- OUTSIDE RECORDS SUMMARY | 2024-12-12 12:35 | XMS_ITS | Encounter Summary ---
Author Organization [employer] Address [address] [facility] 7t [place] [address] Care Team Providers Care Auditor/Quality Name Role Phone Carlo Santana MD Primary Care Provider [phone] Reason for Visit * Reason Comments Med Refill Encounter Details Date Type Department Care Team ([facility] Contact Info) Description 12/06/2023 Refill [facility] CH[facility] MED & PEDS [address] [place], [place] [phone] Carlo Santana MD 505 [place], [place] [phone] Bipolar affective disorder, remission status unspecified (CMS/[facility]) Social History Tobacco Use Types Packs/Day [...] Upcoming Encounters Date Type Department Care Team ([facility] st Contact Info) Description 01/02/2025 2:15 PM EDT Clinical Support [facility] MED & PEDS 505 [place] [address] Fariba Gandhi RN 505 [place] [address] documented as of this encounter Visit Diagnoses Diagnosis Bipolar affective disorder, remission status unspecified (CMS/HCC) ([facility]) documented in this encounter Additional Health Concerns Assessment Noted Time PHQ-9 Depression Total Score: 3 06/04/19 23 3:42 PM EDT documented as of this encounter Care Teams Auditor/Quality Relationship Specialty Start Date End Date Carlo Santana MD 505 [place] [address] PCP - General Internal Medicine 12/28/17 documented as of this encounter
--- OUTSIDE RECORDS SUMMARY | 2024-12-12 12:35 | XMS_ITS | Encounter Summary ---
Author Organization [employer] Address [address] [facility] 7t [place] [address] Care Team Providers Care Kiosk Sales Representative Name Role Phone Carlo Santana MD Primary Care Provider [phone] Reason for Visit * Reason Onset Date Comments Nurse Triage 11/09/2023 Encounter Details Date Type Department Care Team ([facility] Contact Info) Description 11/09/2023 Telephone [facility] CH[facility] MED & PEDS 505 [place] [address] Carlo Santana MD 505 [place] [address] Nurse Triage Social History Tobacco Use Types [...] [facility] MED & PEDS 505 [place] [address] Fariba Gandhi RN 505 [place] [address] documented as of this encounter Visit Diagnoses Not on filedocumented in this encounter Additional Health Concerns Assessment Noted Time PHQ-9 Depression Total Score: 3 06/04/19 23 3:42 PM EDT documented as of this encounter Care Teams Kiosk Sales Representative Relationship Specialty Start Date End Date Carlo Santana MD 505 [place] [address] PCP - General Internal Medicine 12/28/17 documented as of this encounter
--- OUTSIDE RECORDS SUMMARY | 2024-12-12 12:35 | XMS_ITS | Encounter Summary ---
Author Organization [employer] Address [address] [facility] [address] 7t [place] [address] Care Team Providers Care American Studies Professor Name Role Phone Carlo Santana MD Primary Care Provider [phone] Reason for Visit * Reason Onset Date Comments Appointment Request 09/20/2023 Encounter Details Date Type Department Care Team ([facility] st Contact Info) Description 09/20/2023 Telephone [facility] MEDICINE 230 [place] [address] Carlo Santana MD 505 [place], [place] [phone] Appointment Request Social History Tobacco Use Types [...] 2:15 PM EDT Clinical Support [facility] MED & PEDS 505 [place] [address] Fariba Gandhi, HUGO 505 [place] [address] documented as of this encounter Visit Diagnoses Not on filedocumented in this encounter Additional Health Concerns Assessment Noted Time PHQ-9 Depression Total Score: 3 06/04/19 23 3:42 PM EDT documented as of this encounter Care Teams American Studies Professor Relationship Specialty Start Date End Date Carlo Santana MD 505 [place] [address] PCP - General Internal Medicine 12/28/17 documented as of this encounter
--- OUTSIDE RECORDS SUMMARY | 2024-12-12 12:35 | XMS_ITS | Encounter Summary ---
Author Organization [employer] Address 75 [facility] 7t [place] [address] Care Team Providers Care Database Marketing Manager Name Role Phone Carlo Santana MD Primary Care Provider [phone] Encounter Details Date Type Department Care Team ([facility] st Contact Info) Description 04/21/2023 Telephone [facility] MEDICINE 230 [place] [address] Carlo Santana MD [address] [place], [place] [phone] Social History Tobacco Use Types Packs/Day Years [...] [facility] MED & PEDS 505 [place] [address] Fariba Gandhi, HUGO 505 [place] [address] documented as of this encounter Visit Diagnoses Not on filedocumented in this encounter Additional Health Concerns Assessment Noted Time PHQ-9 Depression Total Score: 3 06/04/19 23 3:42 PM EDT documented as of this encounter Care Teams Database Marketing Manager Relationship Specialty Start Date End Date Carlo Santana MD [address] [place] [address] PCP - General Internal Medicine 12/28/17 documented as of this encounter
--- OUTSIDE RECORDS SUMMARY | 2024-12-12 12:35 | XMS_ITS | Encounter Summary ---
Author Organization [employer] Address [address] [facility] 7t [place] [address] Care Team Providers Care Photographic Hand Developer Name Role Phone Carlo Santana MD Primary Care Provider [phone] Reason for Visit * Reason Comments Med Change Request Encounter Details Date Type Department Care Team ([facility] Contact Info) Description 04/08/2023 Refill [facility] CH[facility] MED & PEDS 505 [place], [place] [phone] Carlo Santana MD 505 [place], [place] [address] Obesity (BMI 30-39.9) Social History Tobacco Use [...] PM EDT Clinical Support [facility] MED & PEDS 505 [place] [address] Fariba Gandhi, HUGO 505 [place] [address] documented as of this encounter Visit Diagnoses Diagnosis Obesity (BMI 30-39.9) documented in this encounter Additional Health Concerns Assessment Noted Time PHQ-9 Depression Total Score: 3 06/04/19 23 3:42 PM EDT documented as of this encounter Care Teams Photographic Hand Developer Relationship Specialty Start Date End Date Carlo Santana MD 505 [place] [address] PCP - General Internal Medicine 12/28/17 documented as of this encounter
--- OUTSIDE RECORDS SUMMARY | 2024-12-12 12:35 | XMS_ITS | Encounter Summary ---
Author Organization [employer] Address 75 [facility] 7t [place] [address] Care Team Providers Care Network Administrator Name Role Phone Carlo Santana MD Primary Care Provider [phone] Reason for Visit * Reason Onset Date Comments Appointment Request 11/08/2023 Encounter Details Date Type Department Care Team ([facility] Contact Info) Description 11/08/2023 Telephone [facility] MED & PEDS 505 [place] [address] Carlo Santana MD 505 [place] [address] Appointment Request Social History Tobacco Use Types [...] Encounters Date Type Department Care Team ([facility] st Contact Info) Description 01/02/2025 2:15 PM EDT Clinical Support [facility] MED & PEDS 505 [place] [address] Fariba Gandhi RN 505 [place] [address] documented as of this encounter Visit Diagnoses Not on filedocumented in this encounter Additional Health Concerns Assessment Noted Time PHQ-9 Depression Total Score: 3 06/04/19 23 3:42 PM EDT documented as of this encounter Care Teams Network Administrator Relationship Specialty Start Date End Date Carlo Santana MD [address] [place] [address] PCP - General Internal Medicine 12/28/17 documented as of this encounter
--- OUTSIDE RECORDS SUMMARY | 2024-12-12 12:36 | XMS_ITS | Encounter Summary ---
Author Organization [employer] Address 75 [facility] 7t [place] [address] Care Team Providers Care Firestopper Technician Name Role Phone Carlo Santana MD Primary Care Provider [phone] Reason for Visit * Reason Onset Date Comments Med Refill 12/06/2024 Encounter Details Date Type Department Care Team (Late st Contact Info) Description 12/06/2024 Telephone [facility] MEDICINE 230 [place] [address] Carlo Santana MD 505 [place], [place] [phone] Med Refill Social History Tobacco Use Types [...] Telephone Encounter - April Beard LPN - 12/06/2024 1:08 PM EDT Medication was sent to [facility] on 12/03/24 90 day supply. * Telephone Encounter - Tasha Barton - 12/06/2024 1:03 PM EDT TC from pt requesting medication refill. Medications needing refill : - DULoxetine (Cymbalta) [address] capsule To be sent to: - [facility] - [place] - [address] documented in this encounter Plan of Treatment Upcoming Encounters Date Type Department Care Team (Late st Contact Info) Description 01/02/2025 2:15 PM EDT Clinical Support [facility] MED & PEDS [address] [place] [address] Fariba Gandhi, RN [address] [place] [address] documented as of this encounter Visit Diagnoses Not on filedocumented in this encounter Additional Health Concerns Assessment Noted Time PHQ-9 Depression Total Score: 6 08/22/19 25 10:16 AM EDT documented as of this encounter Care Teams Firestopper Technician Relationship Specialty Start Date End Date Carlo Santana MD [address] [place] [address] PCP - General Internal Medicine 12/28/17 documented as of this encounter
--- OUTSIDE RECORDS SUMMARY | 2024-12-12 12:36 | XMS_ITS | Encounter Summary ---
Author Organization [employer] Address [address] [facility] 7t [place] [address] Care Team Providers Care Rail Setter Name Role Phone Carlo Santana MD Primary Care Provider [phone] Reason for Visit * Reason Onset Date Comments Med Refill 12/06/2024 Encounter Details Date Type Department Care Team (Late st Contact Info) Description 12/06/2024 Telephone [facility] MEDICINE 230 [place] [address] Carlo Santana MD 505 [place], [place] [phone] Med Refill Social History Tobacco Use Types [...] encounter Miscellaneous Notes * Telephone Encounter - Tasha Barton - 12/06/2024 1:06 PM EDT TC from pt requesting medication refill. Medications needing refill : - oxyCODONE (Roxicodone) 10 MG immediate release tablet To be sent to: - [facility] - [place] Leblanc - [address] [facility] documented in this encounter Plan of Treatment Upcoming Encounters Date Type Department Care Team ([facility] st Contact Info) Description 01/02/2025 2:15 PM EDT Clinical Support [facility] MED & PEDS [address] [facility] [address] Fariba Gandhi RN 505 [place] [address] documented as of this encounter Visit Diagnoses Not on filedocumented in this encounter Additional Health Concerns Assessment Noted Time PHQ-9 Depression Total Score: 6 08/22/19 25 10:16 AM EDT documented as of this encounter Care Teams Rail Setter Relationship Specialty Start Date End Date Carlo Santana MD 505 [place] [address] PCP - General Internal Medicine 12/28/17 documented as of this encounter
--- OUTSIDE RECORDS SUMMARY | 2024-12-12 12:36 | XMS_ITS | Encounter Summary ---
Author Organization [employer] Address 75 [facility] 7t [place] [address] Care Team Providers Care Meat Grader Name Role Phone Carlo Santana MD Primary Care Provider [phone] Reason for Visit * Reason Onset Date Comments Call Back Request 06/09/2023 Encounter Details Date Type Department Care Team ([facility] st Contact Info) Description 06/09/2023 Telephone [facility] MEDICINE 230 [place] [address] Carlo Santana MD [address] [facility] [address] [place], [place] [phone] Call Back Request Social History Tobacco Use [...] Tc from pt requesting a call back, chart writer ask pt if wanted to r/s appt but pt sated I wanted to talk about it documented in this encounter Plan of Treatment Upcoming Encounters Date Type Department Care Team (Late st Contact Info) Description 01/02/2025 2:15 PM EDT Clinical Support [facility] MED & PEDS 505 [place] [address] Fariba Gandhi, HUGO 505 [place] [address] documented as of this encounter Visit Diagnoses Not on filedocumented in this encounter Additional Health Concerns Assessment Noted Time PHQ-9 Depression Total Score: 3 06/04/19 23 3:42 PM EDT documented as of this encounter Care Teams Meat Grader Relationship Specialty Start Date End Date Carlo Santana MD 505 [place] [address] PCP - General Internal Medicine 12/28/17 documented as of this encounter
--- OUTSIDE RECORDS SUMMARY | 2024-12-12 12:36 | XMS_ITS | Encounter Summary ---
Author Organization [employer] Address [address] [facility] 7t [place] [address] Care Team Providers Care Assistant Laboratory Director Name Role Phone Carlo Santana MD Primary Care Provider [phone] Reason for Visit * Reason Onset Date Comments Durable Medical Equipment 12/23/2023 Encounter Details Date Type Department Care Team ([facility] Contact Info) Description 12/23/2023 Telephone [facility] MED & PEDS 505 [place] [address] Carlo Santana MD [address] [place] [address] Durable Medical Equipment Social History Tobacco Use [...] small If any questions contact pt at [phone] documented in this encounter Plan of Treatment Upcoming Encounters Date Type Department Care Team ([facility] st Contact Info) Description 01/02/2025 2:15 PM EDT Clinical Support [facility] MED & PEDS 505 [place] [address] Fariba Gandhi RN 505 [place] [address] documented as of this encounter Visit Diagnoses Diagnosis Chronic left-sided low back pain with left-sided sciatica documented in this encounter Additional Health Concerns Assessment Noted Time PHQ-9 Depression Total Score: 3 06/04/19 3:42 PM EDT documented as of this encounter Care Teams Assistant Laboratory Director Relationship Specialty Start Date End Date Carlo Santana MD [address] [place] [address] PCP - General Internal Medicine 12/28/17 documented as of this encounter
--- OUTSIDE RECORDS SUMMARY | 2024-12-12 12:36 | XMS_ITS | Encounter Summary ---
Author Organization [employer] Address [address] [place] [address] 7t [place] [address] Care Team Providers Care Chartered Accountant Name Role Phone Carlo Santana MD Primary Care Provider [phone]- [phone] Reason for Visit * Reason Onset Date Comments Med Refill 10/28/2022 Encounter Details Date Type Department Care Team ([facility] Contact Info) Description 10/28/2022 Telephone [facility] CHC MED & PEDS [address] [place] [address] Carlo Santana MD 505 [place] [address] Med Refill Social History Tobacco Use Types [...] * Telephone Encounter - Ashley Romaine - 10/28/2022 8:53 AM EDT Tc from [...] Description 01/02/2025 2:15 PM EDT Clinical Support [facility] MED & PEDS 505 [place] [address] Fariba Gandhi, HUGO 505 [place] [address] documented as of this encounter Visit Diagnoses Not on filedocumented in this encounter Additional Health Concerns Assessment Noted Time PHQ-9 Depression Total Score: 3 06/04/19 23 3:42 PM EDT documented as of this encounter Care Teams Chartered Accountant Relationship Specialty Start Date End Date Carlo Santana MD 505 [place] [address] PCP - General Internal Medicine 12/28/17 documented as of this encounter
--- OUTSIDE RECORDS SUMMARY | 2024-12-12 12:36 | XMS_ITS | Encounter Summary ---
Author Organization [employer] Address [address] [facility] 7t [place] [address] Care Team Providers Care Sales Agent Financial Report Service Name Role Phone Carlo Santana MD Primary Care Provider [phone] Encounter Details Date Type Department Care Team ([facility] st Contact Info) Description 12/04/2024 Telephone [facility] MEDICINE [address] [place] [address] Carlo Santnaa MD 505 [place], [place] [phone] Social History Tobacco Use Types Packs/Day Years [...] 01/02/2025 2:15 PM EDT Clinical Support [facility] MED & PEDS 505 [place] [address] Fariba Gandhi, HUGO 505 [place] [address] documented as of this encounter Visit Diagnoses Not on filedocumented in this encounter Additional Health Concerns Assessment Noted Time PHQ-9 Depression Total Score: 6 08/22/19 25 10:16 AM EDT documented as of this encounter Care Teams Sales Agent Financial Report Service Relationship Specialty Start Date End Date Carlo Santana MD 505 [place] [address] PCP - General Internal Medicine 12/28/17 documented as of this encounter
--- OUTSIDE RECORDS SUMMARY | 2024-12-12 12:36 | XMS_ITS | Encounter Summary ---
Author Organization [employer] Address [address] [place] [address] 7t [place] [address] Care Team Providers Care Baking Factory Worker Name Role Phone Carlo Santana MD Primary Care Provider [phone] Reason for Visit * Reason Comments Med Refill Encounter Details Date Type Department [facility] ([facility] Contact Info[facility] Description 06/20/2022 Refill [facility] CHC MED & PEDS 505 [place], [place] [phone] Servando Howard MD 505 [place] [address] Social History Tobacco Use Types Packs/Day Years [...] 2:15 PM EDT Clinical Support [facility] CHC MED & PEDS 505 [place] [address] Fariba Gandhi, RN 505 [place] [address] documented as of this encounter Visit Diagnoses Not on filedocumented in this encounter Additional Health Concerns Assessment Noted Time PHQ-9 Depression Total Score: 3 06/04/19 23 3:42 PM EDT documented as of this encounter Care Teams Baking Factory Worker Relationship Specialty Start Date End Date Carlo Santana MD 505 [place] [address] PCP - General Internal Medicine 12/28/17 documented as of this encounter
--- OUTSIDE RECORDS SUMMARY | 2024-12-12 12:36 | XMS_ITS | Encounter Summary ---
Author Organization [employer] Address [address] [facility] 7t [place] [address] Care Team Providers Care Telephone Sex Worker Name Role Phone Carlo Santana MD Primary Care Provider [phone] Reason for Visit * Reason Onset Date Comments Medication Question 04/17/2024 Med Refill 04/17/2024 Encounter Details Date Type Department Care Team ([facility] st Contact Info) Description 04/17/[address] [facility] MEDICINE [address] [place] [address] Carlo Santana MD 505 [place], [place] [phone] Medication Question; Med Refill Social History Tobacco [...] only has 2 left. Contact pt at [phone] documented in this encounter Plan of Treatment Upcoming Encounters Date Type Department Care Team ([facility] st Contact Info) Description 01/02/2025 2:15 PM EDT Clinical Support [facility] CHC MED & PEDS 505 [place] [address] Fariba Gandhi, HUGO 505 [place] [address] documented as of this encounter Visit Diagnoses Not on filedocumented in this encounter Additional Health Concerns Assessment Noted Time PHQ-9 Depression Total Score: 15 024 11:50 AM EST documented as of this encounter Care Teams Telephone Sex Worker Relationship Specialty Start Date End Date Carlo Santana MD 505 [place] [address] PCP - General Internal Medicine 12/28/17 documented as of this encounter
--- OUTSIDE RECORDS SUMMARY | 2024-12-12 12:36 | XMS_ITS | Encounter Summary ---
Author Organization [employer] Address [address] [facility] [address] 7t [place] [address] Care Team Providers Care Laborer Laboratory Name Role Phone Carlo Santana MD Primary Care Provider [phone] Encounter Details Date Type Department Care Team (Late st Contact Info) Description 12/20/2023 Orders Only [facility] [address] [place] [address] Carlo Santana MD [address] [facility] [address] [place], [place] [phone] Hypoproteinemia (CMS/HCC) (Primary Dx) Social History Tobacco [...] ([facility] st Contact Info) Description 01/02/2025 2:15 PM EDT Clinical Support [facility] MED & PEDS 505 [place] [address] Fariba Gandhi RN 505 [place] [address] documented as of this encounter Visit Diagnoses Diagnosis Hypoproteinemia (CMS/HCC)- Primary Other disorders of plasma protein metabolism documented in this encounter Additional Health Concerns Assessment Noted Time PHQ-9 Depression Total Score: 3 06/04/19 23 3:42 PM EDT documented as of this encounter Care Teams Laborer Laboratory Relationship Specialty Start Date End Date Carlo Santana MD 505 [place] [address] PCP - General Internal Medicine 12/28/17 documented as of this encounter
--- OUTSIDE RECORDS SUMMARY | 2024-12-12 12:36 | XMS_ITS | Encounter Summary ---
Author Organization [employer] Address [address] [place] [address] 7t [place] [address] Care Team Providers Care Beam Press Operator Name Role Phone Carlo Santana MD Primary Care Provider [phone] Reason for Visit * Reason Onset Date Comments Med Refill 10/18/2022 Encounter Details Date Type Department Care Team ([facility] Contact Info) Description 10/18/2022 Telephone [facility] CHC MED & PEDS [address] [place] [address] Carlo Santana MD 505 [place] [address] Med Refill Social History Tobacco Use Types [...] Miscellaneous Notes * Telephone Encounter - Jaylen Renner Morelia - 10/18/2022 4:03 PM EDT Tc from pt requesting status on script. Please contact at [phone] * Telephone Encounter - Avelina Brown - 10/18/2022 8:27 AM EDT Tc from patient requesting a med refill for medication oxycodone 5 mg. Please send to [facility]/pharmacy #[id number] - LEATHA PHILLIPS - [phone] [facility] [address] Santana documented in this encounter Plan of Treatment Upcoming Encounters Date Type Department Care Team ([facility] st Contact Info) Description 01/02/2025 2:15 PM EDT Clinical Support [facility] MED & PEDS [address] [place] [address] Fariba Gandhi, HUGO 505 [place] [address] documented as of this encounter Visit Diagnoses Diagnosis Low back pain radiating down leg documented in this encounter Additional Health Concerns Assessment Noted Time PHQ-9 Depression Total Score: 3 06/04/19 23 3:42 PM EDT documented as of this encounter Care Teams Beam Press Operator Relationship Specialty Start Date End Date Carlo Santana MD 505 [place] [address] PCP - General Internal Medicine 12/28/17 documented as of this encounter
--- OUTSIDE RECORDS SUMMARY | 2024-12-12 12:36 | XMS_ITS | Encounter Summary ---
Author Organization [employer] Address [address] [facility] 7t [place] [address] Care Team Providers Care Dry Room Operator Name Role Phone Carlo Santana MD Primary Care Provider [phone] Reason for Visit * Reason Comments Med Refill Encounter Details Date Type Department Care Team ([facility] Contact Info) Description 07/10/[address] [facility] CHC MED & PEDS 505 [place], [place] [phone] Carlo Santana MD 505 [place] [address] Chronic left-sided low back pain with left-sided [...] Telephone Encounter - Fariba Gandhi RN - 07/12/2024 9:56 AM EDT Pt here for CREDIT REPORTER visit. States she is going through a lot in her life right now. states she spoke with you in the past and she is interested in resuming care. Can you please call her? Ty! documented in this encounter Plan of Treatment Upcoming Encounters Date Type Department Care Team ([facility] st Contact Info) Description 01/02/2025 2:15 PM EDT Clinical Support [facility] MED & PEDS 505 [facility] [place] [address] Fariba Gandhi, HUGO 505 [facility] [place] [address] documented as of this encounter Visit Diagnoses Diagnosis Chronic left-sided low back pain with left-sided sciatica documented in this encounter Additional Health Concerns Assessment Noted Time PHQ-9 Depression Total Score: 15 024 11:50 AM EST documented as of this encounter Care Teams Dry Room Operator Relationship Specialty Start Date End Date Carlo Santana MD [address] [place] [address] PCP - General Internal Medicine 12/28/17 documented as of this encounter
--- OUTSIDE RECORDS SUMMARY | 2024-12-12 12:36 | XMS_ITS | Encounter Summary ---
Author Organization [email or web address] Address [address] [place] [address] 7t [place] [address] Care Team Providers Care Technical Sales Specialist Name Role Phone Carlo Santana MD Primary Care Provider [phone] Reason for Referral * Imaging (Routine) - Closed Specialty Diagnoses / Procedures Referred By Contac t Referred To Contact Radiology Diagnoses Daily headache Procedures MRA Head w/o Contrast Carlo Santana MD 505 [place] [address] Phone: tel: fax: [address] Phone: tel: fax: Referral ID Status Reason Start Date Expiration Date Visits Re quested Visits Authorized [id number] Closed 11/21/2024 11/21/2025 1 1 Encounter Details Date Type Department Care Team (Late st Contact Info) Description 11/21/2024 Orders Only [facility] CHC MED & PEDS [address] [place], [place] [phone] Carlo Santana MD 505 [place] [address] Daily headache (Primary Dx) Social History Tobacco Use [...] ([facility] st Contact Info) Description 01/02/2025 2:15 PM EDT Clinical Support [facility] MED & PEDS 505 [place] [address] Fariba Gandhi, HUGO 505 [place] [address] Scheduled Orders Name Type Priority Associated Diagnoses Orde r Schedule MRA Head w/o Contrast Imaging Routine Daily headache Expected: 11/21/2024, Expires: 11/21/2025 documented as of this encounter Visit Diagnoses Diagnosis Daily headache- Primary documented in this encounter Additional Health Concerns Assessment Noted Time PHQ-9 Depression Total Score: 6 08/22/19 25 10:16 AM EDT documented as of this encounter Care Teams Technical Sales Specialist Relationship Specialty Start Date End Date Carlo Santana MD 505 [place] [address] PCP - General Internal Medicine 12/28/17 documented as of this encounter
--- OUTSIDE RECORDS SUMMARY | 2024-12-12 12:36 | XMS_ITS | Encounter Summary ---
Author Organization [employer] Address [address] [facility] 7t [place] [address] Care Team Providers Care Mail List Librarian Name Role Phone Carlo Santana MD Primary Care Provider [phone] Encounter Details Date Type Department Care Team ([facility] Contact Info) Description 03/05/2024 Orders Only [facility] CHC MED & PEDS 505 [place], [place] [phone] Carlo Santana MD 505 [place] [address] Social History Tobacco Use Types Packs/Day Years [...] Description 01/02/2025 2:15 PM EDT Clinical Support [facility] MED & PEDS 505 [place] [address] Fariba Gandhi, HUGO 505 [place] [address] documented as of this encounter Visit Diagnoses Not on filedocumented in this encounter Additional Health Concerns Assessment Noted Time PHQ-9 Depression Total Score: 15 024 11:50 AM EST documented as of this encounter Care Teams Mail List Librarian Relationship Specialty Start Date End Date Carlo Santana MD 505 [place] [address] PCP - General Internal Medicine 12/28/17 documented as of this encounter
--- OUTSIDE RECORDS SUMMARY | 2024-12-12 12:36 | XMS_ITS | Encounter Summary ---
Author Organization [id number] Address [address] [facility] 7t [place] [address] Care Team Providers Care Educational Therapy Teacher Name Role Phone Carlo Santana MD Primary Care Provider [phone] Encounter Details Date Type Department Care Team ([facility] st Contact Info) Description 06/09/2023 Telephone [facility] MEDICINE [address] [place] [address] Carlo Santana MD 505 [place], [place] [phone] Social History Tobacco Use Types Packs/Day Years [...] [facility] MED & PEDS 505 [place] [address] Fariba Gandhi, HUGO 505 [place] [address] documented as of this encounter Visit Diagnoses Not on filedocumented in this encounter Additional Health Concerns Assessment Noted Time PHQ-9 Depression Total Score: 3 06/04/19 23 3:42 PM EDT documented as of this encounter Care Teams Educational Therapy Teacher Relationship Specialty Start Date End Date Carlo Santana MD 505 [place] [address] PCP - General Internal Medicine 12/28/17 documented as of this encounter
--- OUTSIDE RECORDS SUMMARY | 2024-12-12 12:36 | XMS_ITS | Encounter Summary ---
Author Organization [employer] Address [address] [facility] 7t [place] [address] Care Team Providers Care Professor Of Art History Name Role Phone Carlo Santana MD Primary Care Provider [phone] Reason for Visit * Reason Onset Date Comments Call Back Request 12/19/2023 Encounter Details Date Type Department Care Team ([facility] st Contact Info) Description 12/19/2023 Telephone [facility] MEDICINE 230 [place] [address] Carlo Santana MD [address] [facility] [address] [place], [place] [phone] Call Back Request Social History Tobacco Use [...] Description 01/02/2025 2:15 PM EDT Clinical Support [facility] CHC MED & PEDS 505 [place] [address] Fariba Gandhi, HUGO 505 [place] [address] documented as of this encounter Visit Diagnoses Not on filedocumented in this encounter Additional Health Concerns Assessment Noted Time PHQ-9 Depression Total Score: 3 06/04/19 23 3:42 PM EDT documented as of this encounter Care Teams Professor Of Art History Relationship Specialty Start Date End Date Carlo Santana MD 505 [place] [address] PCP - General Internal Medicine 12/28/17 documented as of this encounter
--- OUTSIDE RECORDS SUMMARY | 2024-12-12 12:36 | XMS_ITS | Encounter Summary ---
Author Organization [employer] Address [address] [facility] [address] 7t [place] [address] Care Team Providers Care Woolen Tester Name Role Phone Carlo Santana MD Primary Care Provider [phone] Reason for Visit * Reason Onset Date Comments Appointment Request 12/13/2023 Encounter Details Date Type Department Care Team ([facility] st Contact Info) Description 12/13/2023 Telephone [facility] MEDICINE 230 [place] [address] Carlo Santana MD 505 [place], [place] [phone] Appointment Request Social History Tobacco Use Types [...] [facility] MED & PEDS 505 [place] [address] Fariba Gandhi, HUGO 505 [place] [address] documented as of this encounter Visit Diagnoses Not on filedocumented in this encounter Additional Health Concerns Assessment Noted Time PHQ-9 Depression Total Score: 3 06/04/19 23 3:42 PM EDT documented as of this encounter Care Teams Woolen Tester Relationship Specialty Start Date End Date Carlo Santana MD 505 [place] [address] PCP - General Internal Medicine 12/28/17 documented as of this encounter
--- OUTSIDE RECORDS SUMMARY | 2024-12-12 12:36 | XMS_ITS | Encounter Summary ---
Author Organization [employer] Address [address] [facility] 7t [place] [address] Care Team Providers Care Food And Beverage Associate Name Role Phone Carlo Santana MD Primary Care Provider [phone] Reason for Visit * Reason Comments Med Refill Encounter Details Date Type Department Care Team ([facility] Contact Info) Description 12/19/2023 Refill [facility] CHC MED & PEDS 505 [place], [place] [phone] Carlo Santana MD 505 [place] [address] Diarrhea, unspecified type Social History Tobacco Use [...] - [facility] MED & PEDS 505 [place] [address] Fariba Gandhi RN 505 [place] [address] documented as of this encounter Visit Diagnoses Diagnosis Diarrhea, unspecified type documented in this encounter Additional Health Concerns Assessment Noted Time PHQ-9 Depression Total Score: 3 06/04/19 23 3:42 PM EDT documented as of this encounter Care Teams Food And Beverage Associate Relationship Specialty Start Date End Date Carlo Santana MD 505 [place] [address] PCP - General Internal Medicine 12/28/17 documented as of this encounter
--- OUTSIDE RECORDS SUMMARY | 2024-12-12 12:36 | XMS_ITS | Encounter Summary ---
Author Organization [employer] Address [address] [facility] [address] 7t [place] [address] Care Team Providers Care Broadcast Chief Engineer Name Role Phone Carlo Santana MD Primary Care Provider [phone] Reason for Visit * Reason Onset Date Comments Medication Question 05/06/2023 Encounter Details Date Type Department Care Team ([facility] st Contact Info) Description 05/06/2023 Telephone [facility] MED[facility]INE 230 [place] [address] Carlo Santana MD 505 [place], [place] [phone] Medication Question Social History Tobacco Use Types [...] [facility] MED & PEDS [address] [place] [address] Fariba Gandhi, HUGO 505 [place] [address] documented as of this encounter Visit Diagnoses Not on filedocumented in this encounter Additional Health Concerns Assessment Noted Time PHQ-9 Depression Total Score: 3 06/04/19 23 3:42 PM EDT documented as of this encounter Care Teams Broadcast Chief Engineer Relationship Specialty Start Date End Date Carlo Santana MD 505 [place] [address] PCP - General Internal Medicine 12/28/17 documented as of this encounter
--- OUTSIDE RECORDS SUMMARY | 2024-12-12 12:36 | XMS_ITS | Encounter Summary ---
Author Organization [employer] Address [address] [place] [address] 7 [place] [address] Care Team Providers Care Order Caller Name Role Phone Carlo Santana MD Primary Care Provider [phone] Reason for Referral * Imaging (Routine) - Canceled Specialty Diagnoses / Procedures Referred By Contac t Referred To Contact Radiology Diagnoses Transaminitis Procedures US Abdomen Complete Carlo Santana MD 505 [place] [address] Phone: tel: fax: Referral ID Status Reason Start Date Expiration Date V isits Requested Visits Authorized [id number] Canceled 04/11/2024 04/11/2025 1 1 Encounter Details Date Type Department Care Team ([facility] Contact Info) Description 04/11/2024 Orders Only [facility] CHC MED & PEDS 505 [place] [address] Carlo Santana MD 505 [place] [address] Normocytic anemia (Primary Dx); Transaminitis Social History [...] [facility] Description 01/02/2025 2:15 PM EDT Clinical Support [facility] MED & PEDS 505 [place] [address] Fariba Gandhi, RN 505 [place] [address] Scheduled Orders Name Type Priority Associated Diagnoses Orde r Schedule US Abdomen Complete Imaging Routine Transaminitis Expected: 04/11/2024, Expires: 04/11/2025 documented as of this encounter Procedures Procedure Name Priority Date/Time Associated Diagnosis Comments HEPATITIS PANEL, GENERAL Routine 08/16/2024 11:35 AM EDT Normocytic anemia Transaminitis MITOCHONDRIAL ANTIBODY WITH REFLEX TO TITER Routine 08/16/2024 11:35 AM EDT Transaminitis T-SPOT(R).TB Routine 04/11/2024 11:20 AM EST Normocytic anemia documented in this encounter Results * Mitochondrial Antibody with Reflex to Titer (08/16/2024 11:35 AM EDT) Mitochondrial Antibodies NEGATIVE NEGATIVE [facility] Comment:THIS TEST WAS PERFOR MED AT:[employer] [place] [phone] HUTTON MD Mitochondrial Ab Titer TNP [facility] Blood Venous blood specimen / Unknown 08/16/2024 11:35 AM EDT 08/16/2024 11:35 AM EDT us Carlo Santana MD LAB BLOOD ORDERABLES Final Result [facility] [address] [place] [phone] * Hepatitis A,B,C Profile (08/16/2024 11:35 AM EDT) Hepatitis A IgM Nonreactive Nonreactive [facility] Comment:IgM antibodies to OLIVA V not detected; does not exclude earlyacute or recovered HAV infection. ~Hepatitis B Surface Antibody REACTIVE Nonreactive [facility] Comment:REACTIVE: > 11.99 mI U/mL Hepatitis B Core Antibody Nonreactive Nonreactive [facility] Hepatitis C Antibody Nonreactive Nonreactive [facility] Comment:Antibodies to HCV no t detected; does not exclude early acuteHCV infection. Hepatitis B Surface Ag Negative Negative [facility] Blood Venous blood specimen / Unknown 08/16/2024 11:35 AM EDT 08/16/2024 11:35 AM EDT us Carlo Santana MD LAB BLOOD ORDERABLES Final Result Performing Organization Address [facility]/ZIP Co de Phone Number [facility] [address] [place] [phone] * T-SPOT??.TB (04/11/2024 11:20 AM EST) T Spot TB Negative Negative [facility] Comment:A negative test resu lt [...] as aquantitative test. TS PANEL A 0 [facility] TS PANEL B 1 [facility] Negative Control Passed [facility] Positive Control Passed [facility] Comment:For additional infor matpaulie, please refer [email or web address].[employer]il[employer]/faq/CGH740(This link is being provided for informational/educational purposes only.)THIS TEST WAS PERFORMED AT:[employer] [id number] [place] [phone] KOENIG MD,PHD 04/11/2024 11:2 0 AM EST 04/11/2024 2:39 PM EST us Carlo Santana MD LAB BLOOD ORDERABLES Final Result Performing Organization Address [facility]/ZIP Co de Phone Number [facility] [address] [place] [phone] documented in this encounter Visit Diagnoses Diagnosis Normocytic anemia- Primary Unspecified anemia Transaminitis Nonspecific elevation of levels of transaminase or lactic acid dehydrogenase (LDH) documented in this encounter Additional Health Concerns Assessment Noted Time PHQ-9 Depression Total Score: 15 024 11:50 AM EST documented as of this encounter Care Teams Order Caller Relationship Specialty Start Date End Date Carlo Santana MD 505 [place] [address] PCP - General Internal Medicine 12/28/17 documented as of this encounter
--- OUTSIDE RECORDS SUMMARY | 2024-12-12 12:36 | XMS_ITS | Encounter Summary ---
Author Organization [employer] Address [address] [place] [address] 7t [place] [address] Care Team Providers Care Prescription Clerk Lenses Name Role Phone Carlo Santana MD Primary Care Provider [phone] Reason for Visit * Reason Comments Med Change Request Encounter Details Date Type Department Care Team ([facility] Contact Info) Description 06/21/2022 Refill [facility] MED & PEDS 505 [place], [place] [phone] Carlo Santana MD 505 [place] [address] Chronic left-sided low back pain with left-sided [...] Description 01/02/2025 2:15 PM EDT Clinical Support [facility] MED & PEDS 505 [place] [address] Fariba Gandhi, HUGO 505 [place] [address] documented as of this encounter Visit Diagnoses Diagnosis Chronic left-sided low back pain with left-sided sciatica documented in this encounter Additional Health Concerns Assessment Noted Time PHQ-9 Depression Total Score: 3 06/04/19 23 3:42 PM EDT documented as of this encounter Care Teams Prescription Clerk Lenses Relationship Specialty Start Date End Date Carlo Santana MD 505 [place] [address] PCP - General Internal Medicine 12/28/17 documented as of this encounter
--- OUTSIDE RECORDS SUMMARY | 2024-12-12 12:36 | XMS_ITS | Encounter Summary ---
Author Organization [employer] Address 75 [facility] 7t [place] [address] Care Team Providers Care Audio Visual Arts Director Name Role Phone Carlo Santana MD Primary Care Provider [phone] Reason for Visit * Reason Onset Date Comments Medication Question 04/25/2024 Encounter Details Date Type Department Care Team ([facility] Contact Info) Description 04/25/2024 Telephone [facility] MEDICINE [address] [place] [address] Carlo Santana MD 505 [place], [place] [phone] Medication Question Social History Tobacco Use Types [...] any questions you can contact pt at [phone]. documented in this encounter Plan of Treatment Upcoming Encounters Date Type Department Care Team ([facility] st Contact Info) Description 01/02/2025 2:15 PM EDT Clinical Support [facility] MED & PEDS 505 [place] [address] Fariba Gandhi RN 505 [place] [address] documented as of this encounter Visit Diagnoses Not on filedocumented in this encounter Additional Health Concerns Assessment Noted Time PHQ-9 Depression Total Score: 15 024 11:50 AM EST documented as of this encounter Care Teams Audio Visual Arts Director Relationship Specialty Start Date End Date Carlo Santana MD 505 [place] [address] PCP - General Internal Medicine 12/28/17 documented as of this encounter
--- OUTSIDE RECORDS SUMMARY | 2024-12-12 12:36 | XMS_ITS | Encounter Summary ---
Author Organization [employer] Address 75 [facility] 7t [place] [address] Care Team Providers Care Cleaning Manager Name Role Phone Carlo Santana MD Primary Care Provider [phone]- [phone] Reason for Visit * Reason Comments Med Refill Encounter Details Date Type Department Care Team ([facility] st Contact Info) Description 06/20/2022 Refill [facility] 230 [place] [address] Carlo Santana MD 505 [place], [place] [phone] Chronic left-sided low back pain with left-sided [...] [facility] 505 [place] [address] Fariba Gandhi, RN 505 [place] [address] documented as of this encounter Visit Diagnoses Diagnosis Chronic left-sided low back pain with left-sided sciatica documented in this encounter Additional Health Concerns Assessment Noted Time PHQ-9 Depression Total Score: 3 06/04/19 23 3:42 PM EDT documented as of this encounter Care Teams Cleaning Manager Relationship Specialty Start Date End Date Carlo Santana MD 505 [place] [address] PCP - General Internal Medicine 12/28/17 documented as of this encounter
--- OUTSIDE RECORDS SUMMARY | 2024-12-12 12:36 | XMS_ITS | Encounter Summary ---
Author Organization [employer] Address 75 [facility] 7t [place] [address] Care Team Providers Care Academic Support Coordinator Name Role Phone Carlo Santana MD Primary Care Provider [phone] Reason for Visit * Reason Comments Med Refill Encounter Details Date Type Department Care Team ([facility] st Contact Info) Description 05/09/2024 Refill [facility] MEDICINE 230 [place] [address] Carlo Santana MD 505 [place], [place] [phone] Diarrhea, unspecified type; Chronic left shoulder pain; [...] 2:15 PM EDT Clinical Support [facility] MED & PEDS 505 [place] [address] Fariba Gandhi, HUGO 505 [place] [address] documented as of this encounter Visit Diagnoses Diagnosis Diarrhea, unspecified type Chronic left shoulder pain Pain in joint, shoulder region Rib pain Unspecified chest pain Chronic left-sided low back pain with left-sided sciatica Neck pain Cervicalgia documented in this encounter Additional Health Concerns Assessment Noted Time PHQ-9 Depression Total Score: 15 024 11:50 AM EST documented as of this encounter Care Teams Academic Support Coordinator Relationship Specialty Start Date End Date Carlo Santana MD 505 [place] [address] PCP - General Internal Medicine 12/28/17 documented as of this encounter
--- OUTSIDE RECORDS SUMMARY | 2024-12-12 12:36 | XMS_ITS | Encounter Summary ---
Author Organization [employer] Address [address] [facility] [address] 7t [place] [address] Care Team Providers Care Spinning Mule Operator Name Role Phone Carlo Santana MD Primary Care Provider [phone] Reason for Visit * Reason Onset Date Comments Results 12/19/2023 Encounter Details Date Type Department Care Team ([facility] st Contact Info) Description 12/19/2023 Telephone [facility] MEDICINE 230 [place] [address] Carlo Santana MD [address] [facility] [address] [place], [place] [phone] Results Social History Tobacco Use Types Packs/Day [...] results: Labs Date when done: 12/15 Facility: [facility] documented in this encounter Plan of Treatment Upcoming Encounters Date Type Department Care Team (Late st Contact Info) Description 01/02/2025 2:15 PM EDT Clinical Support [facility] MED & PEDS 505 [place] [address] Fariba Gandhi, HUGO 505 [place] [address] documented as of this encounter Visit Diagnoses Not on filedocumented in this encounter Additional Health Concerns Assessment Noted Time PHQ-9 Depression Total Score: 3 06/04/19 23 3:42 PM EDT documented as of this encounter Care Teams Spinning Mule Operator Relationship Specialty Start Date End Date Carlo Santana MD 505 [place] [address] PCP - General Internal Medicine 12/28/17 documented as of this encounter
--- OUTSIDE RECORDS SUMMARY | 2024-12-12 12:36 | XMS_ITS | Encounter Summary ---
Author Organization [employer] Address [address] [facility] [address] 7t [place] [address] Care Team Providers Care Floodplain Manager Name Role Phone Carlo Santana MD Primary Care Provider [phone] Reason for Visit * Reason Comments Med Change Request Encounter Details Date Type Department Care Team ([facility] st Contact Info) Description 12/20/2023 Refill [facility] 230 [place] [address] Carlo Santana MD [address] [facility] [address] [place], [place] [phone] Hypoproteinemia (CMS/HCC) Social History Tobacco Use Types [...] [facility] MED & PEDS 505 [place] [address] Fariba Gandhi, HUGO 505 [place] [address] documented as of this encounter Visit Diagnoses Diagnosis Hypoproteinemia (CMS/HCC) Other disorders of plasma protein metabolism documented in this encounter Additional Health Concerns Assessment Noted Time PHQ-9 Depression Total Score: 3 06/04/19 23 3:42 PM EDT documented as of this encounter Care Teams Floodplain Manager Relationship Specialty Start Date End Date Carlo Santana MD 505 [place] [address] PCP - General Internal Medicine 12/28/17 documented as of this encounter
--- OUTSIDE RECORDS SUMMARY | 2024-12-12 12:36 | XMS_ITS | Encounter Summary ---
Author Organization [employer] Address [address] [place] [address] 7 [place] [address] Care Team Providers Care Wirer Maintenance Name Role Phone Carlo Santana MD Primary Care Provider [phone] Reason for Visit * Reason Comments Med Refill Encounter Details Date Type Department Care Team ([facility] Contact Info) Description 10/28/2022 Refill [facility] MED & PEDS 505 [place] [address] Carlo Santana MD 505 [place] [address] Muscle spasm Social History Tobacco Use Types [...] Encounters Date Type Department Care Team ([facility] Contact Info) Description 01/02/2025 2:15 PM EDT Clinical Support [facility] MED & PEDS 505 [place] [address] Fariba Gandhi, HUGO 505 [place] [address] documented as of this encounter Visit Diagnoses Diagnosis Muscle spasm Spasm of muscle documented in this encounter Additional Health Concerns Assessment Noted Time PHQ-9 Depression Total Score: 3 06/04/19 23 3:42 PM EDT documented as of this encounter Care Teams Wirer Maintenance Relationship Specialty Start Date End Date Carlo Santana MD 505 [place] [address] PCP - General Internal Medicine 12/28/17 documented as of this encounter
[2024-12-12 14:04] LABS: MANUAL DIFF FLAG NO
[2024-12-12 14:07] LABS: Hematocrit 37.2 % (37.0-47.0); Hemoglobin 12.4 g/dl (12.0-16.0); Imm Gran Abs Auto 0.02 X10*3/uL (0.00-0.03); Imm Gran Pct Auto 0.3 % (0.0-0.4); Lymphocytes Absolute Auto 1.6 X10*3/uL (1.2-4.9); Mean Corpuscular HGB Conc 33.3 g/dl (31.0-35.0); Mean Corpuscular Hemoglobin 32.6 pg (27.0-33.0); Mean Corpuscular Volume 97.9 fL (80.0-98.0); NRBC Abs Auto 0.000 X10*3/uL (0.0-0.012); NRBC Pct Auto 0.0 /100WBC (0.0-0.2); Platelet Count 338 X10*3/uL (160-400); Red Blood Count 3.80 X10*6/uL (4.20-5.50); White Blood Count 7.3 X10*3/uL (4.8-10.8)
[2024-12-12 14:41] LABS: Alanine Aminotransferase 51 U/L (0-31); Albumin Level 4.4 g/dL (3.5-5.0); Alkaline Phosphatase 63 U/L (39-117); Anion Gap 10 (12-20); Aspartate Amino Transferase 34 U/L (5-31); Blood Urea Nitrogen 12 mg/dL (9-16); Calcium 8.8 mg/dL (8.4-10.2); Carbon Dioxide 27 mmol/L (22-29); Chloride 108 mmol/L (96-108); Estimated Glomerular Filt Rate > 60; Magnesium 2.1 mg/dL (1.6-2.6); Potassium 4.0 mmol/L (3.3-5.1); Sodium 141 mmol/L (135-145); Total Protein 6.8 g/dL (6.5-8.0)
[2024-12-12 15:04] LABS: Folate 8.1 ng/mL (> or = 4.0); Vitamin B12 666 pg/mL (200-900)
== END 2024-12-12 11:03 | disposition home or self-care (01) ==
LOC: HO.CHCLDS 11:02
PROVIDERS: Physician Assistant Medical; Visit Provider Internal Medicine
DX: R51.9 Headache, unspecified (principal); R20.2 Paresthesia of skin; M25.511 Pain in right shoulder; G89.29 Other chronic pain; L73.2 Hidradenitis suppurativa; Z11.1 Encounter for screening for respiratory tuberculosis
CPT/HCPCS: 36415; 80053; 82248; 82607; 82746; 83735; 84443; 85025; 86481

== ENCOUNTER 2024-12-28 09:30 | Outpatient (REF) | payer MEDICAID, SELFPAY ==
--- OUTSIDE RECORDS SUMMARY | 2024-12-28 10:47 | XMS_ITS | Encounter Summary ---
Author Organization [employer] Address 75 [facility] 7t [place] [address] Care Team Providers Care Draw Hand Name Role Phone Carlo Santana MD Primary Care Provider [phone] Reason for Visit * Reason Onset Date Comments Prior Authorization 02/07/2024 Encounter Details Date Type Department Care Team ([facility] st Contact Info) Description 02/07/2024 Telephone [facility] MEDICINE [address] [place] [address] Carlo Santana MD 505 [place], [place] [phone] Prior Authorization Social History Tobacco Use Types [...] Description 01/02/2025 2:15 PM EDT Clinical Support [facility] MED & PEDS 505 [place] [address] Fariba Gandhi, HUGO 505 [place] [address] documented as of this encounter Visit Diagnoses Not on filedocumented in this encounter Additional Health Concerns Assessment Noted Time PHQ-9 Depression Total Score: 15 024 11:50 AM EST documented as of this encounter Care Teams Draw Hand Relationship Specialty Start Date End Date Carlo Santana MD [address] [place] [address] PCP - General Internal Medicine 12/28/17 documented as of this encounter
--- OUTSIDE RECORDS SUMMARY | 2024-12-28 10:47 | XMS_ITS | Encounter Summary ---
Author Organization [employer] Address [address] [place] [address] 7t [place] [address] Care Team Providers Care Chicken Picker Name Role Phone Carlo Santana MD Primary Care Provider [phone] Reason for Visit * Reason Comments Med Refill Encounter Details Date Type Department Care Team ([facility] Contact Info) Description 11/11/2024 Refill [facility] CHC MED & PEDS 505 [place], [place] [phone] Carlo Santana MD 505 [place] [address] Chronic left shoulder pain; Muscle spasm Social [...] 2:15 PM EDT Clinical Support [facility] MED & PEDS 505 [place] [address] Fariba Gandhi, HUGO 505 [place] [address] documented as of this encounter Visit Diagnoses Diagnosis Chronic left shoulder pain Pain in joint, shoulder region Muscle spasm Spasm of muscle documented in this encounter Additional Health Concerns Assessment Noted Time PHQ-9 Depression Total Score: 6 08/22/19 25 10:16 AM EDT documented as of this encounter Care Teams Chicken Picker Relationship Specialty Start Date End Date Carlo Santana MD 505 [place] [address] PCP - General Internal Medicine 12/28/17 documented as of this encounter
--- OUTSIDE RECORDS SUMMARY | 2024-12-28 10:47 | XMS_ITS | Encounter Summary ---
Author Organization [employer] Address 75 [facility] 7t [place] [address] Care Team Providers Care Claim Processing Specialist Name Role Phone Carlo Santana MD Primary Care Provider [phone] Reason for Visit * Reason Onset Date Comments Med Refill 11/19/2024 Encounter Details Date Type Department Care Team ([facility] Contact Info) Description 11/19/2024 Telephone [facility] MED & PEDS 505 [place] [address] Carlo Santana MD 505 [place] [address] Med Refill Social History Tobacco Use Types [...] 9:01 AM EDT Medication was sent to [facility] on 11/13/24 with 3 refills. * Telephone Encounter - Francesca Solares - 11/19/2024 8:59 AM EDT TC from pt requesting medication refill. Medications needing refill : tiZANidine (Zanaflex) 4 MG tablet To be sent to: [facility] - [place] - [address] documented in this encounter Plan of Treatment Upcoming Encounters Date Type Department Care Team (Late st Contact Info) Description 01/02/2025 2:15 PM EDT Clinical Support [facility] MED & PEDS [address] [place] [address] Fariba Gandhi, RN [address] [place] [address] documented as of this encounter Visit Diagnoses Not on filedocumented in this encounter Additional Health Concerns Assessment Noted Time PHQ-9 Depression Total Score: 6 08/22/19 25 10:16 AM EDT documented as of this encounter Care Teams Claim Processing Specialist Relationship Specialty Start Date End Date Carlo Santana MD [address] [place] [address] PCP - General Internal Medicine 12/28/17 documented as of this encounter
--- OUTSIDE RECORDS SUMMARY | 2024-12-28 10:47 | XMS_ITS | Encounter Summary ---
Author Organization [employer] Address 75 [facility] 7t [place] [address] Care Team Providers Care Axle Inspector Name Role Phone Carlo Santana MD Primary Care Provider [phone] Encounter Details Date Type Department Care Team ([facility] st Contact Info) Description 01/06/2024 Orders Only [facility] CHC MED & PEDS 505 [place], [place] [phone] Carlo Santana MD 505 [place], [place] [phone] Diarrhea, unspecified type (Primary Dx); Chronic left-sided [...] [facility] MED & PEDS [address] [place] [address] Fariba Gandhi RN 505 [place] [address] Scheduled Orders Name Type Priority Associated Diagnoses [...] Protein <0.10 < or = 0.50 mg/dL [facility] Blood Venous blood specimen / Unknown 01/06/2024 1:18 PM EDT 01/06/2024 2:16 PM EDT Carlo Santana MD LAB BLOOD ORDERABLES Final Result [facility] [address] [place] [address] [phone] documented in this encounter Visit Diagnoses Diagnosis Diarrhea, unspecified type- Primary Chronic left-sided low back pain with left-sided sciatica documented in this encounter Additional Health Concerns Assessment Noted Time PHQ-9 Depression Total Score: 3 06/04/19 23 3:42 PM EDT documented as of this encounter Care Teams Axle Inspector Relationship Specialty Start Date End Date Carlo Santana MD [address] [place] [address] PCP - General Internal Medicine 12/28/17 documented as of this encounter
--- OUTSIDE RECORDS SUMMARY | 2024-12-28 10:47 | XMS_ITS | Encounter Summary ---
Author Organization [employer] Address 75 [facility] 7t [place] [address] Care Team Providers Care Patient Companion Name Role Phone Carlo Santana MD Primary Care Provider [phone] Reason for Visit * Reason Onset Date Comments Prior Authorization 09/02/2023 Encounter Details Date Type Department Care Team ([facility] Contact Info) Description 09/02/2023 Telephone [facility] MED & PEDS 505 [place] [address] Carlo Santana MD 505 [place] [address] Prior Authorization Social History Tobacco Use Types [...] Description 01/02/2025 2:15 PM EDT Clinical Support [facility] MED & PEDS 505 [place] [address] Fariba Gandhi, RN 505 [place] [address] documented as of this encounter Visit Diagnoses Diagnosis Bipolar affective disorder, remission status unspecified (CMS/HCC) (HCC) documented in this encounter Additional Health Concerns Assessment Noted Time PHQ-9 Depression Total Score: 3 06/04/19 23 3:42 PM EDT documented as of this encounter Care Teams Patient Companion Relationship Specialty Start Date End Date Carlo Santana MD [address] [place] [address] PCP - General Internal Medicine 12/28/17 documented as of this encounter
--- OUTSIDE RECORDS SUMMARY | 2024-12-28 10:47 | XMS_ITS | Encounter Summary ---
Author Organization [employer] Address 75 [facility] 7t [place] [address] Care Team Providers Care Pharmacy Order Entry Technician Name Role Phone Carlo Santana MD Primary Care Provider [phone] Reason for Visit * Reason Onset Date Comments Medication Question 01/31/2024 Encounter Details Date Type Department Care Team ([facility] Contact Info) Description 01/31/2024 Telephone [facility] CHC MED & PEDS [address] [place] [address] Carlo Santana MD 505 [place] [address] Medication Question Social History Tobacco Use Types [...] Mayorga LPN - 01/31/2024 10:10 AM EST [employer] communicated with the patient's insurance provider, who indicated that prior authorization is not required. Oxycodone was discontinued because the patient received a prescription for acetaminophen 600 mg from another physician's office on January 25, 2024. I requested that the [place] [facility] nurse join this discussion to ensure she is informed about the patient's situation. The insurance expressed concerns regarding the patient's liver health due to the use of these medications. An override for Oxycodone was granted; however, it was noted that it will be revoked if the patient continuesto use this medication (acetaminophen 600 mg). This information is being shared with both the [facility] nurse and the primary care physician to [...] [facility] st Contact Info) Description 01/02/2025 2:15 PM EDT Clinical Support [facility] MED & PEDS [address] [place] [address] Fariba Gandhi RN 505 [place] [address] documented as of this encounter Visit Diagnoses Not on filedocumented in this encounter Additional Health Concerns Assessment Noted Time PHQ-9 Depression Total Score: 15 024 11:50 AM EST documented as of this encounter Care Teams Pharmacy Order Entry Technician Relationship Specialty Start Date End Date Carlo Santana MD 505 [place] [address] PCP - General Internal Medicine 12/28/17 documented as of this encounter
--- OUTSIDE RECORDS SUMMARY | 2024-12-28 10:47 | XMS_ITS | Encounter Summary ---
Author Organization [employer] Address [address] [place] [address] 7t [place] [address] Care Team Providers Care Purchasing Internship Name Role Phone Carlo Santana MD Primary Care Provider [phone] Reason for Visit * Reason Onset Date Comments Referral 12/13/2024 Encounter Details Date Type Department Care Team ([facility] Contact Info) Description 12/13/2024 Telephone [facility] MED & PEDS 505 [place] [address] Carlo Santana MD 505 [place] [address] Referral Social History Tobacco Use Types Packs/Day [...] encounter Miscellaneous Notes * Telephone Encounter - Francesca Solares - 12/13/2024 11:17 AM EDT Tc from pt requesting referral to [facility] [address] [facility] [address] Contact pt at [phone] documented in this encounter Plan of Treatment Upcoming Encounters Date Type Department Care Team ([facility] st Contact Info) Description 01/02/2025 2:15 PM EDT Clinical Support [facility] MED & PEDS 505 [place] [address] Fariba Gandhi, HUGO 505 [place] [address] documented as of this encounter Visit Diagnoses Not on filedocumented in this encounter Additional Health Concerns Assessment Noted Time PHQ-9 Depression Total Score: 6 08/22/19 25 10:16 AM EDT documented as of this encounter Care Teams Purchasing Internship Relationship Specialty Start Date End Date Carlo Santana MD 505 [place] [address] PCP - General Internal Medicine 12/28/17 documented as of this encounter
--- OUTSIDE RECORDS SUMMARY | 2024-12-28 10:47 | XMS_ITS | Encounter Summary ---
Author Organization [employer] Address [address] [place] [address] 7t [place] [address] Care Team Providers Care Mail Handlers Supervisor Name Role Phone Carlo Santana MD Primary Care Provider [phone] Reason for Visit * Reason Onset Date Comments PA 01/31/2024 Encounter Details Date Type Department Care Team ([facility] Contact Info) Description 01/31/2024 Telephone [facility] MED & PEDS 505 [place] [address] Carlo Santana MD 505 [place] [address] PA Social History Tobacco Use Types Packs/Day [...] [facility] st Contact Info) Description 01/02/2025 2:15 PM EDT Clinical Support [facility] MED & PEDS 505 [place] [address] Fariba Gandhi RN 505 [place] [address] documented as of this encounter Visit Diagnoses Not on filedocumented in this encounter Additional Health Concerns Assessment Noted Time PHQ-9 Depression Total Score: 15 024 11:50 AM EST documented as of this encounter Care Teams Mail Handlers Supervisor Relationship Specialty Start Date End Date Carlo Santana MD 505 [place] [address] PCP - General Internal Medicine 12/28/17 documented as of this encounter
--- OUTSIDE RECORDS SUMMARY | 2024-12-28 10:47 | XMS_ITS | Encounter Summary ---
Author Organization [employer] Address 75 [facility] 7t [place] [address] Care Team Providers Care Assistant Attorney General Name Role Phone Carlo Santana MD Primary Care Provider [phone] Reason for Visit * Reason Onset Date Comments Med Refill 09/14/2023 Encounter Details Date Type Department Care Team ([facility] Contact Info) Description 09/14/2023 Telephone [facility] MED & PEDS 505 [place] [address] Carlo Santana MD [address] [place] [address] Med Refill Social History Tobacco Use Types [...] Miscellaneous Notes * Telephone Encounter - Hien Jaruqin - 09/14/2023 3:55 PM EDT Pt is also requesting: lidocaine (Xylocaine) 5 % ointment * Telephone Encounter - Ashley Gavin - 09/14/2023 11:58 AM EDT TC from pt requesting medication refill. Medications needing refill : lidocaine (Lidoderm) 5 % patch To be sent to: [id number] - [place] - [address] [facility] documented in this encounter Plan of Treatment Upcoming Encounters Date Type Department Care Team (Late st Contact Info) Description 01/02/2025 2:15 PM EDT Clinical Support [facility] MED & PEDS [address] [place] [address] Fariba Gandhi, HUGO 505 [facility] [place] [address] documented as of this encounter Visit Diagnoses Not on filedocumented in this encounter Additional Health Concerns Assessment Noted Time PHQ-9 Depression Total Score: 3 06/04/19 23 3:42 PM EDT documented as of this encounter Care Teams Assistant Attorney General Relationship Specialty Start Date End Date Carlo Santana MD [address] [place] [address] PCP - General Internal Medicine 12/28/17 documented as of this encounter
--- OUTSIDE RECORDS SUMMARY | 2024-12-28 10:47 | XMS_ITS | Encounter Summary ---
Author Organization [employer] Address [address] [facility] 7t [place] [address] Care Team Providers Care Dispatcher Service Name Role Phone Carlo Santana MD Primary Care Provider [phone] Encounter Details Date Type Department Care Team ([facility] st Contact Info) Description 08/17/2023 Orders Only [facility] CHC MED & PEDS [address] [place], [place] [phone] Carlo Santana MD 505 [place], [place] [phone] Bipolar affective disorder, remission status unspecified (CMS/HCC) [...] [facility] MED & PEDS 505 [place] [address] Fariba Gandhi, HUGO 505 [place] [address] documented as of this encounter Visit Diagnoses Diagnosis Bipolar affective disorder, remission status unspecified (CMS/HCC) ([facility])- Primary documented in this encounter Additional Health Concerns Assessment Noted Time PHQ-9 Depression Total Score: 3 06/04/19 23 3:42 PM EDT documented as of this encounter Care Teams Dispatcher Service Relationship Specialty Start Date End Date Carlo Santana MD 505 [place] [address] PCP - General Internal Medicine 12/28/17 documented as of this encounter
--- OUTSIDE RECORDS SUMMARY | 2024-12-28 10:47 | XMS_ITS | Encounter Summary ---
Author Organization [employer] Address [address] [facility] 7t [place] [address] Care Team Providers Care School Occupational Therapist Name Role Phone Carlo Santana MD Primary Care Provider [phone] Reason for Visit * Reason Onset Date Comments Prior Authorization 12/29/2023 Encounter Details Date Type Department Care Team ([facility] st Contact Info) Description 12/29/2023 Telephone [facility] [address] [place] [address] Carlo Santana MD 505 [place], [place] [phone] Prior Authorization Social History Tobacco Use Types [...] from pt stating she was informed by [facility] pharmacy that oxyCODONE-acetaminophen (Percocet) 7.5-325MG tablet needs a PA. If any questions for the pt you can contact them at [phone]. documented in this encounter Plan of Treatment Upcoming Encounters Date Type Department Care Team (Late st Contact Info) Description 01/02/2025 2:15 PM EDT Clinical Support [facility] MED & PEDS 505 [place] [address] Fariba Gandhi, HUGO 505 [place] [address] documented as of this encounter Visit Diagnoses Not on filedocumented in this encounter Additional Health Concerns Assessment Noted Time PHQ-9 Depression Total Score: 3 06/04/19 23 3:42 PM EDT documented as of this encounter Care Teams School Occupational Therapist Relationship Specialty Start Date End Date Carlo Santana MD [address] [place] [address] PCP - General Internal Medicine 12/28/17 documented as of this encounter
--- OUTSIDE RECORDS SUMMARY | 2024-12-28 10:47 | XMS_ITS | Encounter Summary ---
Author Organization [employer] Address [address] [place] [address] 7 [place] [address] Care Team Providers Care Computer Hardware Technician Name Role Phone Carlo Santana MD Primary Care Provider [phone] Reason for Referral * Imaging (Routine) - Closed Specialty Diagnoses / Procedures Referred By Contac t Referred To Contact Radiology Diagnoses Transaminitis Procedures US Abdomen Complete Carlo Santana MD 505 [place] [address] Phone: tel: fax: [address] Phone: tel: fax: Referral ID Status Reason Start Date Expiration Date Visits Re quested Visits Authorized [id number] Closed 03/23/2024 03/23/2025 1 1 Reason for Visit * Reason Comments Med Refill Encounter Details Date Type Department Care Team (Late st Contact Info) Description 03/21/2024 Refill [facility] CHC MED & PEDS 505 [place] [address] Carlo Santana MD 505 [place] [address] Chronic left-sided low back pain with left-sided [...] Description 01/02/2025 2:15 PM EDT Clinical Support [facility] MED & PEDS 505 [place] [address] Fariba Gandhi RN 505 [place] [address] Scheduled Orders Name Type Priority Associated Diagnoses [...] documented as of this encounter Care Teams Computer Hardware Technician Relationship Specialty Start Date End Date Carlo Santana MD 505 [place] [address] PCP - General Internal Medicine 12/28/17 documented as of this encounter
--- OUTSIDE RECORDS SUMMARY | 2024-12-28 10:47 | XMS_ITS | Encounter Summary ---
Author Organization [employer] Address [address] [place] [address] 7 [place] [address] Care Team Providers Care Ballroom Dancer Name Role Phone Carlo Santana MD Primary Care Provider [phone] Reason for Referral * Consultation (Routine) - Closed Specialty Diagnoses / Procedures Referred By Contac t Referred To Contact Pain Medicine Diagnoses Chronic left-sided low back pain with left-sided sciatica Carlo Santana MD 505 [place] [address] Phone: tel: fax: Referral ID Status Reason Start Date Expiration Date V isits Requested Visits Authorized [id number] Closed Specialty Services Required 12/14/2024 12/14/2025 1 1 Encounter Details Date Type Department Care Team ([facility] st Contact Info) Description 12/14/2024 Orders Only [facility] CHC MED & PEDS 505 [place] [address] Carlo Santana MD 505 [place] [address] Chronic left-sided low back pain with left-sided sciatica (Primary Dx) Social History Tobacco Use Types [...] ([facility] st Contact Info) Description 01/02/2025 2:15 PM EDT Clinical Support [facility] MED & PEDS 505 [place] [address] Fariba Gandhi, HUGO 505 [place] [address] Scheduled Referrals Name Type Priority Associated Diagnoses Orde r Schedule Referral to Pain Medicine Outpatient Referral Routine Chronic left-sided low back pain with left-sided sciatica Expected: 12/14/2024 (Approximate), Expires: 12/14/2025 documented as of this encounter Visit Diagnoses Diagnosis Chronic left-sided low back pain with left-sided sciatica- Primary documented in this encounter Additional Health Concerns Assessment Noted Time PHQ-9 Depression Total Score: 6 08/22/19 25 10:16 AM EDT documented as of this encounter Care Teams Ballroom Dancer Relationship Specialty Start Date End Date Carlo Santana MD [address] [place] [address] PCP - General Internal Medicine 12/28/17 documented as of this encounter
--- OUTSIDE RECORDS SUMMARY | 2024-12-28 10:47 | XMS_ITS | Encounter Summary ---
Author Organization [employer] Address [address] [facility] [facility] [address] 7t [place] [address] Care Team Providers Care Hot Tar Roofer Name Role Phone Carlo Santana MD Primary Care Provider [phone] Reason for Visit * Reason Onset Date Comments Results 01/03/2024 Encounter Details Date Type Department Care Team ([facility] st Contact Info) Description 01/03/2024 Telephone [facility] MEDICINE 230 [place] [address] Carlo Santana MD [address] [facility] [address] [place], [place] [phone] Results Social History Tobacco Use Types Packs/Day [...] borderline values. THIS TEST WAS PERFORMED AT: [facility] [address] [place] [address] CHERYL MOLINA MD,PHD,BATSHEVA Dr. Santana, This is the results found on [employer] for pt recent Calprotectin stool testing. Pt would like a call back with the interpretation of the results. * Telephone Encounter - Quan Mena - 01/03/2024 11:01 AM EDT TC from pt requesting call back regarding Results. Type of results: Labs Date when done: 12/24/23 Facility: [facility] labs documented in this encounter Plan of Treatment Upcoming Encounters Date Type Department Care Team (Late st Contact Info) Description 01/02/2025 2:15 PM EDT Clinical Support [facility] CHC MED & PEDS 505 [place] [address] Fariba Gandhi RN 505 [place] [address] documented as of this encounter Visit Diagnoses Not on filedocumented in this encounter Additional Health Concerns Assessment Noted Time PHQ-9 Depression Total Score: 3 06/04/19 23 3:42 PM EDT documented as of this encounter Care Teams Hot Tar Roofer Relationship Specialty Start Date End Date Carlo Santana MD 505 [place] [address] PCP - General Internal Medicine 12/28/17 documented as of this encounter
--- OUTSIDE RECORDS SUMMARY | 2024-12-28 10:47 | XMS_ITS | Encounter Summary ---
Author Organization [employer] Address [address] [facility] 7t [place] [address] Care Team Providers Care Sand Slinger Name Role Phone Carlo Santana MD Primary Care Provider [phone] Reason for Visit * Reason Onset Date Comments Med Refill 07/30/2024 Encounter Details Date Type Department Care Team ([facility] st Contact Info) Description 07/30/2024 Telephone [facility] MEDICINE 230 [place] [address] Carlo Santana MD 505 [place], [place] [phone] Med Refill Social History Tobacco Use Types [...] 5 % ointment To be sent to: [facility]/pharmacy #[id number] LEATHA PHILLIPS - [address] [facility] documented in this encounter Plan of Treatment Upcoming Encounters Date Type Department Care Team ([facility] st Contact Info) Description 01/02/2025 2:15 PM EDT Clinical Support [facility] CHC MED & PEDS 505 [place] [address] Fariba Gandhi, RN 505 [place] [address] documented as of this encounter Visit Diagnoses Not on filedocumented in this encounter Additional Health Concerns Assessment Noted Time PHQ-9 Depression Total Score: 15 024 11:50 AM EST documented as of this encounter Care Teams Sand Slinger Relationship Specialty Start Date End Date Carlo Santana MD [address] [place] [address] PCP - General Internal Medicine 12/28/17 documented as of this encounter
--- OUTSIDE RECORDS SUMMARY | 2024-12-28 10:47 | XMS_ITS | Encounter Summary ---
Author Organization [employer] Address [address] [facility] [address] 7t [place] [address] Care Team Providers Care Supervisor Pastry Name Role Phone Carlo Santana MD Primary Care Provider [phone] Reason for Visit * Reason Onset Date Comments Medication Question 12/28/2023 Encounter Details Date Type Department Care Team ([facility] Contact Info) Description 12/28/2023 Telephone [facility] MEDICINE 230 [place] [address] Carlo Santana MD 505 [place], [place] [phone] Medication Question Social History Tobacco Use Types [...] any questions you can contact pt at [phone]. documented in this encounter Plan of Treatment Upcoming Encounters Date Type Department Care Team ([facility] st Contact Info) Description 01/02/2025 2:15 PM EDT Clinical Support [facility] MED & PEDS 505 [place] [address] Fariba Gandhi RN 505 [place] [address] documented as of this encounter Visit Diagnoses Not on filedocumented in this encounter Additional Health Concerns Assessment Noted Time PHQ-9 Depression Total Score: 3 06/04/19 23 3:42 PM EDT documented as of this encounter Care Teams Supervisor Pastry Relationship Specialty Start Date End Date Carlo Santana MD [address] [place] [address] PCP - General Internal Medicine 12/28/17 documented as of this encounter
--- OUTSIDE RECORDS SUMMARY | 2024-12-28 10:47 | XMS_ITS | Encounter Summary ---
Author Organization [employer] Address 75 [facility] 7t [place] [address] Care Team Providers Care Order Tracer Name Role Phone Carlo Santana MD Primary Care Provider [phone] Reason for Visit * Reason Onset Date Comments Med Refill 06/14/2024 Encounter Details Date Type Department Care Team (Late st Contact Info) Description 06/14/2024 Telephone [facility] MEDICINE 230 [place] [address] Carlo Santana MD 505 [place], [place] [phone] Med Refill Social History Tobacco Use Types [...] ([facility] st Contact Info) Description 01/02/2025 2:15 PM EDT Clinical Support [facility] MED & PEDS 505 [place] [address] Fariba Gandhi RN 505 [place] [address] documented as of this encounter Visit Diagnoses Not on filedocumented in this encounter Additional Health Concerns Assessment Noted Time PHQ-9 Depression Total Score: 15 024 11:50 AM EST documented as of this encounter Care Teams Order Tracer Relationship Specialty Start Date End Date Carlo Santana MD 505 [place] [address] PCP - General Internal Medicine 12/28/17 documented as of this encounter
--- OUTSIDE RECORDS SUMMARY | 2024-12-28 10:47 | XMS_ITS | Encounter Summary ---
Author Organization [employer] Address [address] [facility] 7t [place] [address] Care Team Providers Care Supervisor Burling And Joining Name Role Phone Carlo Santana MD Primary Care Provider [phone] Reason for Visit * Reason Onset Date Comments Nurse Triage 03/21/2024 Encounter Details Date Type Department Care Team ([facility] st Contact Info) Description 03/21/2024 Telephone [facility] MEDICINE 230 [place] [address] Carlo Santana MD 505 [place], [place] [phone] Nurse Triage Social History Tobacco Use Types [...] EST Triage call Pt reports seen by home service technician and Pt believes they may have [...] Reason: Joint pain Please contact pt at [phone]. documented in this encounter Plan of Treatment Upcoming Encounters Date Type Department Care Team ([facility] st Contact Info) Description 01/02/2025 2:15 PM EDT Clinical Support [facility] MED & PEDS 505 [place] [address] Fariba Gandhi RN 505 [place] [address] documented as of this encounter Visit Diagnoses Diagnosis Acute pain of both shoulders documented in this encounter Additional Health Concerns Assessment Noted Time PHQ-9 Depression Total Score: 15 024 11:50 AM EST documented as of this encounter Care Teams Supervisor Burling And Joining Relationship Specialty Start Date End Date Carlo Santana MD 505 [place] [address] PCP - General Internal Medicine 12/28/17 documented as of this encounter
--- OUTSIDE RECORDS SUMMARY | 2024-12-28 10:47 | XMS_ITS | Encounter Summary ---
Author Organization [employer] Address [address] [facility] 7t [place] [address] Care Team Providers Care Survey Research Teacher Name Role Phone Carlo Santana MD Primary Care Provider [phone] Reason for Visit * Reason Onset Date Comments Medication Question 06/11/2024 Encounter Details Date Type Department Care Team ([facility] Contact Info) Description 06/11/2024 Telephone [facility] MEDICINE 230 [place] [address] Carlo Santana MD 505 [place], [place] [phone] Medication Question Social History Tobacco Use Types [...] MG immediate release tablet. Contact pt at [phone] documented in this encounter Plan of Treatment Upcoming Encounters Date Type Department Care Team ([facility] st Contact Info) Description 01/02/2025 2:15 PM EDT Clinical Support [facility] CHC MED & PEDS 505 [place] [address] Fariba Gandhi RN 505 [place] [address] documented as of this encounter Visit Diagnoses Not on filedocumented in this encounter Additional Health Concerns Assessment Noted Time PHQ-9 Depression Total Score: 15 024 11:50 AM EST documented as of this encounter Care Teams Survey Research Teacher Relationship Specialty Start Date End Date Carlo Santana MD 505 [place] [address] PCP - General Internal Medicine 12/28/17 documented as of this encounter
--- OUTSIDE RECORDS SUMMARY | 2024-12-28 10:47 | XMS_ITS | Encounter Summary ---
Author Organization [employer] Address [address] [address] 7t [place] [address] Care Team Providers Care Building Operator Name Role Phone Carlo Santana MD Primary Care Provider [phone] Reason for Visit * Reason Comments Med Refill Encounter Details Date Type Department Care Team ([facility] st Contact Info) Description 12/14/2024 Refill [facility] CHC MED & PEDS [address] [place], [place] [phone] Oneal Liu MD 230 [place] [address] Social History Tobacco Use Types Packs/Day Years [...] your housing situation today? I have dionne nataliia 01/19/[address] you li [...] [facility] st Contact Info) Description 01/02/2025 2:15 PM EDT Clinical Support [facility] CHC MED & PEDS 505 [place] [address] Fariba Gandhi, HUGO 505 [place] [address] documented as of this encounter Visit Diagnoses Not on filedocumented in this encounter Additional Health Concerns Assessment Noted Time PHQ-9 Depression Total Score: 6 08/22/19 25 10:16 AM EDT documented as of this encounter Care Teams Building Operator Relationship Specialty Start Date End Date Carlo Santana MD 505 [place] [address] PCP - General Internal Medicine 12/28/17 documented as of this encounter
--- OUTSIDE RECORDS SUMMARY | 2024-12-28 10:47 | XMS_ITS | Encounter Summary ---
Author Organization [employer] Address [address] [facility] 7t [place] [address] Care Team Providers Care Plant Maintenance Technician Name Role Phone Carlo Santana MD Primary Care Provider [phone] Encounter Details Date Type Department Care Team ([facility] st Contact Info) Description 04/03/2024 Telephone [facility] MEDICINE 230 [place] [address] Carlo Santana MD 505 [place], [place] [phone] Social History Tobacco Use Types Packs/Day Years [...] [facility] MED & PEDS 505 [place] [address] Fariba Gandhi, HUGO 505 [place] [address] documented as of this encounter Visit Diagnoses Not on filedocumented in this encounter Additional Health Concerns Assessment Noted Time PHQ-9 Depression Total Score: 15 024 11:50 AM EST documented as of this encounter Care Teams Plant Maintenance Technician Relationship Specialty Start Date End Date Carlo Santana MD 505 [place] [address] PCP - General Internal Medicine 12/28/17 documented as of this encounter
--- OUTSIDE RECORDS SUMMARY | 2024-12-28 10:47 | XMS_ITS | Encounter Summary ---
Author Organization [employer] Address [address] [facility] 7t [place] [address] Care Team Providers Care Jersey Knitter Name Role Phone Carlo Santana MD Primary Care Provider [phone] Reason for Visit * Reason Onset Date Comments Med Change Request 09/14/2023 Encounter Details Date Type Department Care Team ([facility] Contact Info) Description 09/14/2023 Telephone [facility] MED & PEDS 505 [place] [address] Carlo Santana MD 505 [place] [address] Med Change Request Social History Tobacco Use [...] in the morning. Please contact pt at [phone] documented in this encounter Plan of Treatment Upcoming Encounters Date Type Department Care Team (Late st Contact Info) Description 01/02/2025 2:15 PM EDT Clinical Support [facility] CHC MED & PEDS 505 [place] [address] Fariba Gandhi, RN 505 [place] [address] documented as of this encounter Visit Diagnoses Not on filedocumented in this encounter Additional Health Concerns Assessment Noted Time PHQ-9 Depression Total Score: 3 06/04/19 23 3:42 PM EDT documented as of this encounter Care Teams Jersey Knitter Relationship Specialty Start Date End Date Carlo Santana MD 505 [place] [address] PCP - General Internal Medicine 12/28/17 documented as of this encounter
--- OUTSIDE RECORDS SUMMARY | 2024-12-28 10:47 | XMS_ITS | Encounter Summary ---
Author Organization [employer] Address [address] [facility] 7t [place] [address] Care Team Providers Care Dispatcher Electric Power Name Role Phone Carlo Santana MD Primary Care Provider [phone] Reason for Visit * Reason Comments Med Refill Encounter Details Date Type Department Care Team ([facility] Contact Info) Description 11/13/2024 Refill [facility] CHC MED & PEDS 505 [place], [place] [phone] Carlo Santana MD 505 [place] [address] Chronic left-sided low back pain with left-sided [...] [facility] Description 01/02/2025 2:15 PM EDT Clinical Support [facility] MED & PEDS 505 [place] [address] Fariba Gandhi, HUGO 505 [place] [address] documented as of this encounter Visit Diagnoses Diagnosis Chronic left-sided low back pain with left-sided sciatica documented in this encounter Additional Health Concerns Assessment Noted Time PHQ-9 Depression Total Score: 6 08/22/19 25 10:16 AM EDT documented as of this encounter Care Teams Dispatcher Electric Power Relationship Specialty Start Date End Date Carlo Santana MD 505 [place] [address] PCP - General Internal Medicine 12/28/17 documented as of this encounter
--- OUTSIDE RECORDS SUMMARY | 2024-12-28 10:47 | XMS_ITS | Encounter Summary ---
Author Organization [employer] Address [address] [facility] 7t [place] [address] Care Team Providers Care Clam Treader Name Role Phone Carlo Santana MD Primary Care Provider [phone] Reason for Visit * Reason Onset Date Comments Med Refill 12/25/2024 Encounter Details Date Type Department Care Team (Late st Contact Info) Description 12/25/2024 Refill [facility] MEDICINE 230 [place] [address] Carlo Santana MD [address] [address] [place], [place] [phone] Chronic left shoulder pain; Muscle spasm Social [...] encounter Miscellaneous Notes * Telephone Encounter - Cary Alfaro LPN - 12/25/2024 1:26 PM EDT hydrOXYzine pamoate (Vistaril) 50 MG capsule - DULoxetine (Cymbalta) [address] capsule are to soon to refill/last seen 9.9.25 * Telephone Encounter - Tasha Barton - 12/25/2024 12:19 PM EDT TC from pt requesting medication refill. Medications needing refill : - hydrOXYzine pamoate (Vistaril) 50 MG capsule - DULoxetine (Cymbalta) [address] capsule - celecoxib (CeleBREX) 200 MG capsule To be sent to: - [facility] - LEATHA Leblanc - [address] documented in this encounter Plan of Treatment Upcoming Encounters Date Type Department Care Team (Late st Contact Info) Description 01/02/2025 2:15 PM EDT Clinical Support [facility] MED & PEDS 505 [place] [address] Fariba Gandhi, RN 505 [place] [address] documented as of this encounter Visit Diagnoses Diagnosis Chronic left shoulder pain Pain in joint, shoulder region Muscle spasm Spasm of muscle documented in this encounter Additional Health Concerns Assessment Noted Time PHQ-9 Depression Total Score: 6 08/22/19 25 10:16 AM EDT documented as of this encounter Care Teams Clam Treader Relationship Specialty Start Date End Date Carlo Santana MD 505 [place] [address] PCP - General Internal Medicine 12/28/17 documented as of this encounter
--- OUTSIDE RECORDS SUMMARY | 2024-12-28 10:47 | XMS_ITS | Encounter Summary ---
Author Organization [employer] Address [address] [facility] 7t [place] [address] Care Team Providers Care Form Presser Name Role Phone Carlo Santana MD Primary Care Provider [phone] Reason for Visit * Reason Onset Date Comments Nurse Triage 12/14/2024 Encounter Details Date Type Department Care Team ([facility] st Contact Info) Description 12/14/2024 Telephone [facility] [address] [place] [address] Carlo Santana MD [address] [place], [place] [phone] Nurse Triage Social History Tobacco Use Types [...] * Telephone Encounter - Tasha Barton - 12/14/2024 8:16 AM EDT Symptoms: Leg Pain - Not From Injury, Foot or Ankle Pain - Not From Injury Outcome: Schedule an urgent appointment (within 1 hour) or talk to a nurse or provider soon Reason: Trouble walking The caller accepted this outcome. Contact pt at [phone] documented in this encounter Plan of Treatment Upcoming Encounters Date Type Department Care Team ([facility] st Contact Info) Description 01/02/2025 2:15 PM EDT Clinical Support [facility] PED[facility] 505 [place] [address] Fariba Gandhi, HUGO 505 [place] [address] documented as of this encounter Visit Diagnoses Not on filedocumented in this encounter Additional Health Concerns Assessment Noted Time PHQ-9 Depression Total Score: 6 08/22/19 25 10:16 AM EDT documented as of this encounter Care Teams Form Presser Relationship Specialty Start Date End Date Carlo Santana MD [address] [place] [address] PCP - General Internal Medicine 12/28/17 documented as of this encounter
--- OUTSIDE RECORDS SUMMARY | 2024-12-28 10:48 | XMS_ITS | Encounter Summary ---
Author Organization [employer] Address [address] [facility] 7t [place] [address] Care Team Providers Care Associate Professor Of Communication Name Role Phone Carlo Santana MD Primary Care Provider [phone] Reason for Visit * Reason Onset Date Comments Call Back Request 07/20/2023 Encounter Details Date Type Department Care Team ([facility] st Contact Info) Description 07/20/[address] [facility] MED[facility]INE [address] [place] [address] Carlo Santana MD [address] [facility] [address] [place], [place] [phone] Call Back Request Social History Tobacco Use [...] [facility] PED[facility] [address] [place] [address] Fariba Gandhi, HUGO [address] [place] [address] documented as of this encounter Visit Diagnoses Not on filedocumented in this encounter Additional Health Concerns Assessment Noted Time PHQ-9 Depression Total Score: 3 06/04/19 23 3:42 PM EDT documented as of this encounter Care Teams Associate Professor Of Communication Relationship Specialty Start Date End Date Carlo Santana MD 505 [place] [address] PCP - General Internal Medicine 12/28/17 documented as of this encounter
--- OUTSIDE RECORDS SUMMARY | 2024-12-28 10:48 | XMS_ITS | Encounter Summary ---
Author Organization [employer] Address 75 [facility] 7t [place] [address] Care Team Providers Care Mergers And Acquisitions Manager Name Role Phone Carlo Santana MD Primary Care Provider [phone] Reason for Visit * Reason Onset Date Comments Durable Medical Equipment 08/27/2024 Encounter Details Date Type Department Care Team ([facility] Contact Info) Description 08/27/[address] [facility] & PEDS [address] [place] [address] Carlo Santana MD 505 [place] [address] Durable Medical Equipment Social History Tobacco Use [...] to a size medium. Contact pt at [phone] * Telephone Encounter - Francesca Solares - 08/27/2024 8:22 AM EDT Tc from pt requesting to change the size of depends from a small to a size medium. Contact pt at [phone] documented in this encounter Plan of Treatment Upcoming Encounters Date Type Department Care Team ([facility] st Contact Info) Description 01/02/2025 2:15 PM EDT Clinical Support [facility] MED & PEDS [address] [place] [address] Fariba Gandhi, RN 505 [place] [address] documented as of this encounter Visit Diagnoses Diagnosis Chronic left-sided low back pain with left-sided sciatica documented in this encounter Additional Health Concerns Assessment Noted Time PHQ-9 Depression Total Score: 6 08/22/19 25 10:16 AM EDT documented as of this encounter Care Teams Mergers And Acquisitions Manager Relationship Specialty Start Date End Date Carlo Santana MD [address] [place] [address] PCP - General Internal Medicine 12/28/17 documented as of this encounter
--- OUTSIDE RECORDS SUMMARY | 2024-12-28 10:48 | XMS_ITS | Encounter Summary ---
Author Organization [employer] Address [address] [facility] 7 [place] [address] Care Team Providers Care Media Relations Associate Name Role Phone Carlo Santana MD Primary Care Provider [phone] Encounter Details Date Type Department Care Team ([facility] st Contact Info) Description 06/14/2024 Orders Only [facility] MED & PEDS [address] [place], [place] [phone] Carlo Santana MD [address] [place], [place] [phone] Chronic left-sided low back pain with left-sided [...] Clinical Support [facility] MED & PEDS [address] [place] [address] Fariba Gandhi, RN 505 [place] [address] documented as of this encounter Procedures Procedure [...] PM EDT Narrative 06/22/2024 8:00 PM EDT [address] [address] XRay Report Signed Patient: Peri Sandy MR#: [id number] 338 : 1980 Acct:[id number] Age/Sex: 43 / F ADM Date: 06/22/24 Loc: HO.ED Attending Dr: Ordering Physician: Javier Dubois Date of Service: 06/22/24 Procedure(s): XR knee RT 4V Accession Number(s): [id number] cc: Carlo Santana MD; Javier Dubois CLINICAL [...] in OV> 06/22/241999 DD/ 57 TD/TT: 06/22/241957 Manager Telecom: Procedure Note Donotluisinterpreter, Image - 06/22/[address] [address] XRay Report Signed Patient: Peri Sandy MMR#: [id number] 338 : 1980Acct:[id number] Age/Sex: 43 / FADM Date: 06/22/24 Loc: .ED Attending Dr: Ordering Physician: Javier Dubois Date of Service: 06/22/24 Procedure(s): XR knee RT 4V Accession Number(s): [id number] cc: Carlo Santana MD; Javier uDbois CLINICAL HISTORY: trauma,pain 4 view right knee [...] in OV> 06/22/241999 DD/ 57 TD/TT: 06/22/241957 Manager Telecom: [facility] External Provider IMG XR PROCEDURES Edited Result - Final * CT Cervical Spine w/o Contrast (06/22/2024 7:56 PM EDT) Anatomical Region Laterality Modality Spine, C-spine Computed Tomogra phy 06/22/2024 7:56 PM EDT Narrative 06/22/2024 7:58 PM EDT [place] [address] CT Scan Report Signed Patient: Peri Sandy MR#: [id number] 338 : 1980 Acct:[id number] Age/Sex: 43 / F ADM Date: 06/22/24 Loc: HO.ED Attending Dr: Ordering Physician: Javier Dubois Date of Service: 06/22/24 Procedure(s): CT cervical spine wo IV con Accession Number(s): [id number] cc: Carlo Santana MD; Javier Dubois Report Number: [id number]: Total DLP = 333.00 mGy-cm CLINICAL HISTORY: trauma CT cervical spine without contrast Comparison: MR/OR/SR - MR CERVICAL SPINE WO CON - [...] in OV> 06/22/241957 DD/ 55 TD/TT: 06/22/241955 Manager Telecom: Procedure Note Donotuseinterpreter, Image - 06/22/[address] [address] [address] Scan Report Signed Patient: Peri Sandy MMR#: [id number] 338 : 1980Acct:[id number] Age/Sex: 43 / FADM Date: 06/22/24 Loc: HO.ED Attending Dr: Ordering Physician: Javier Dubois Date of Service: 06/22/24 Procedure(s): CT cervical spine wo IV con Accession Number(s): [id number] cc: Carlo Santana MD; Javier Dubois Report Number: [id number]: Total DLP = 333.00 mGy-cm CLINICAL HISTORY: trauma CT cervical spine without contrast Comparison: MR/OR/SR - MR CERVICAL SPINE WO CON - [...] in OV> 06/22/241957 DD/ 55 TD/TT: 06/22/241955 Manager Telecom: us [facility] External Provider IMG CT PROCEDURES Edited Result - Final * XR Chest 1 View (06/22/2024 7:56 PM EDT) Anatomical Region Laterality Modality Chest Radiographic Yi ging 06/22/2024 7:56 PM EDT Narrative 06/22/2024 7:58 PM EDT [address] [address] XRay Report Signed Patient: Peri Sandy MR#: [id number] 338 : 1980 Acct:[id number] Age/Sex: 43 / F ADM Date: 06/22/24 Loc: HO.ED Attending Dr: Ordering Physician: Javier Dubois Date of Service: 06/22/24 Procedure(s): XR chest 1V Accession Number(s): [id number] cc: Carlo Santana MD; Javier Dubois CLINICAL HISTORY: trauma EXAM: One view chest x-ray COMPARISON: None FINDINGS: Normal cardiac, mediastinal, and hilar contours. Normal heart size. No pleural effusion or pneumothorax. Lungs are clear. No acute bone finding. IMPRESSION: 1. No acute cardiopulmonary process demonstrated. This document has been electronically signed by: Luisito Goldman MD on 06/22/2024 19:56:47 Dictated By: Liusito Goldman MD Signed By: <Electronically signed by Luisito Goldman MD in OV> 06/22/241957 DD/ 55 TD/TT: 06/22/241955 Manager Telecom: Procedure Note Donotuseinterpreter, Image - 06/22/2024 [place] [address] XRay Report Signed Patient: Peri Sandy MMR#: [id number] 338 : 1980Acct:[id number] Age/Sex: 43 / FADM Date: 06/22/24 Loc: .ED Attending Dr: Ordering Physician: Javier Dubois Date of Service: 06/22/24 Procedure(s): XR chest 1V Accession Number(s): [id number] cc: Carlo Santana MD; Javier Dubois CLINICAL [...] in OV> 06/22/241957 DD/ 55 TD/TT: 06/22/241955 Manager Telecom: [facility] External Provider IMG XR PROCEDURES Edited Result - Final * CT Head w/o Contrast (06/22/2024 7:16 PM EDT) Anatomical Region Laterality Modality Head, Neck Computed Tomogra phy 06/22/2024 7:16 PM EDT Narrative 06/22/2024 7:18 PM EDT [place] [address] CT Scan Report Signed Patient: Peri Sandy MR#: [id number] 338 : 1980 Acct:[id number] Age/Sex: 43 / F ADM Date: 06/22/24 Loc: HO.ED Attending Dr: Ordering Physician: Javier Dubois Date of Service: 06/22/24 Procedure(s): CT head/brain wo IV con Accession Number(s): [id number] cc: Carlo Santana MD; Javier Dubois Report Number: [id number]: Total DLP = 967.00 mGy-cm CLINICAL HISTORY: [...] in OV> 06/22/241917 DD/ 15 TD/TT: 06/22/241915 Manager Telecom: Procedure Note Donotuseinterpreter, Image - 06/22/[address] [address] [address] Scan Report Signed Patient: Peri Sandy MMR#: [id number] 338 : 1980Acct:[id number] Age/Sex: 43 / FADM Date: 06/22/24 Loc: HO.ED Attending Dr: Ordering Physician: Javier Dubois Date of Service: 06/22/24 Procedure(s): CT head/brain wo IV con Accession Number(s): [id number] cc: Carlo Santana MD; Javier Dubois Report Number: [id number]: Total DLP = 967.00 mGy-cm CLINICAL HISTORY: [...] in OV> 06/22/241917 DD/ 15 TD/TT: 06/22/241915 Manager Telecom: [facility] External Provider IMG CT PROCEDURES Edited Result - Final documented in this encounter Visit Diagnoses Diagnosis Chronic left-sided low back pain with left-sided sciatica documented in this encounter Additional Health Concerns Assessment Noted Time PHQ-9 Depression Total Score: 15 01/25/ 024 11:50 AM EST documented as of this encounter Care Teams Media Relations Associate Relationship Specialty Start Date End Date Carlo Santana MD [address] [place] [address] PCP - General Internal Medicine 12/28/17 documented as of this encounter
--- OUTSIDE RECORDS SUMMARY | 2024-12-28 10:48 | XMS_ITS | Encounter Summary ---
Author Organization [employer] Address [address] [facility] [address] 7t [place] [address] Care Team Providers Care Engineer Specialist Name Role Phone Carlo Santana MD Primary Care Provider [phone] Reason for Visit * Reason Onset Date Comments Referral 07/25/2023 Encounter Details Date Type Department Care Team ([facility] st Contact Info) Description 07/25/2023 Telephone [facility] MEDICINE [address] [place] [address] Carlo Santana MD [address] [facility] [address] [place], [place] [phone] Referral Social History Tobacco Use Types Packs/Day [...] in regards to moving pain management to [facility] in [place]. Pt stated she called the [place] office and it didn't go well. States [...] with switching locations. Please contact pt at [phone] * Telephone Encounter - Rand Savage RN - 07/28/2023 2:55 PM EDT Returned call to pt regarding message below. Pt stated she did not say another referral to Urology she said pain management. Pt is currently seen Pain management in [place] and has tried two different doctors. The first one told her her pain was in her head, and was very rude and dismissive. The socond doctor, she stated was no well prepared for her visit and not aware of what she has tried and not tried. I advised pt that if she decides to go with a different location, the wait times for HAZMAT TRUCK DRIVER appts can be lengthy. Pt advised if maybe she can try to resolve issues directly with this office so there won't be a lapse in care. Pt states she will call [place] office and speak to their tax accounting manager andsee if maybe she can try another provider. Pt advised to call their office and based on response they give her she can think about it and decide and speak with PCP next on appt. Pt agrees with plan. Will send to PCP as FYI and if pt does decide she will wants to switch she would like a location in [place]. * Telephone Encounter - Quan Mena - 07/25/2023 3:01 PM EDT Tc from pt calling in regards to urology referral, stating she's not satisfied with care and would like to change location. Pt is requesting to be referred to [facility] instead pt provided location [address] [facility]. If nay questions you can contact pt at [phone]. documented in this encounter Plan of Treatment Upcoming Encounters Date Type Department Care Team ([facility] st Contact Info) Description 01/02/2025 2:15 PM EDT Clinical Support [facility] MED & PEDS 505 [place] [address] Fariba Gandhi RN 505 [place] [address] documented as of this encounter Visit Diagnoses Not on filedocumented in this encounter Additional Health Concerns Assessment Noted Time PHQ-9 Depression Total Score: 3 06/04/19 23 3:42 PM EDT documented as of this encounter Care Teams Engineer Specialist Relationship Specialty Start Date End Date Carlo Santana MD 505 [place] [address] PCP - General Internal Medicine 12/28/17 documented as of this encounter
--- OUTSIDE RECORDS SUMMARY | 2024-12-28 10:48 | XMS_ITS | Encounter Summary ---
Author Organization [employer] Address [address] [facility] [address] 7t [place] [address] Care Team Providers Care Seafood Process Worker Name Role Phone Carlo Santana MD Primary Care Provider [phone] Reason for Visit * Reason Comments Med Refill Encounter Details Date Type Department Care Team ([facility] st Contact Info) Description 10/26/2024 Refill [facility] [address] [place] [address] Carlo Santana MD 505 [place], [place] [phone] Chronic left-sided low back pain with left-sided [...] ([facility] st Contact Info) Description 01/02/2025 2:15 PM EDT Clinical Support [facility] MED & PEDS 505 [place] [address] Fariba Gadnhi, HUGO 505 [place] [address] documented as of this encounter Visit Diagnoses Diagnosis Chronic left-sided low back pain with left-sided sciatica documented in this encounter Additional Health Concerns Assessment Noted Time PHQ-9 Depression Total Score: 6 08/22/19 25 10:16 AM EDT documented as of this encounter Care Teams Seafood Process Worker Relationship Specialty Start Date End Date Carlo Santana MD 505 [place] [address] PCP - General Internal Medicine 12/28/17 documented as of this encounter
--- OUTSIDE RECORDS SUMMARY | 2024-12-28 10:48 | XMS_ITS | Encounter Summary ---
Author Organization [employer] Address [address] [place] [address] 7 [place] [address] Care Team Providers Care Senior Account Executive Name Role Phone Carlo Santana MD Primary Care Provider [phone] Reason for Referral * Imaging (Routine) - Closed Specialty Diagnoses / Procedures Referred By Contac t Referred To Contact Diagnoses Right ovarian cyst Procedures Us Pelvis complete Carlo Santana MD 505 [place] [address] Phone: tel: fax: [address] Phone: tel: fax: Referral ID Status Reason Start Date Expiration Date Visits Re quested Visits Authorized [id number] Closed 07/08/2022 01/04/2023 1 1 * Imaging (Routine) - Closed Specialty Diagnoses / Procedures Referred By Contac t Referred To Contact Diagnoses Right ovarian cyst Procedures US Pelvis Transvaginal Carlo Santana MD [address] [place] [address] Phone: tel: fax: [address] Phone: tel: fax: Referral ID Status Reason Start Date Expiration Date Visits Re quested Visits Authorized [id number] Closed 07/08/2022 01/04/2023 1 1 Encounter Details Date Type Department Care Team ([facility] Contact Info) Description 07/08/2022 Orders Only [facility] MED & PEDS [address] [place] [address] aCrlo Santana MD 505 [place] [address] Right ovarian cyst (Primary Dx) Social History [...] Upcoming Encounters Date Type Department Care Team ([facility] Contact Info) Description 01/02/2025 2:15 PM EDT Clinical Support [facility] MED & PEDS [address] [place] [address] Fariba Gandhi, HUGO [address] [place] [address] Scheduled Orders Name Type Priority Associated Diagnoses [...] Nuclear Antibody Screen POSITIV E(A) NEGATIVE [facility] Comment:TRUDY IFA is a first l ine screen for detecting thepresence of up to approximately 150 autoantibodies invarious autoimmune diseases. A positive TRUDY IFA resultis suggestive of autoimmune disease and reflexes totiter and pattern. Further laboratory testing may beconsidered if clinically indicated.For additional information, please refer tohttp://education.Viveve/faq/DIO008(This link is being provided for informational/educational purposes only.) TRUDY Titer 1:640(A ) titer [facility] Comment:Reference Range <1:4 0 Negative 1:40-1:80 Low Antibody Level >1:80 Elevated Antibody Level TRUDY Pattern Nuclear , Homogen eous(A) [facility] Comment:Homogeneous pattern is associated with systemic lupuserythematosus (SLE), drug-induced lupus and juvenileidiopathic arthritis.AC-1: HomogeneousInternational Consensus on TRUDY Patterns(https://doi.org/10.1515/dlbi-6462-8829)THIS TEST WAS PERFORMED AT:[employer] [place] [phone] HUTTON MD TRUDY TITER 2 (REF LAB) [facility] TRUDY Pattern 2 [facility] TITER 3 [facility] TRUDY PAT[facility] 3 [facility] 07/08/2022 11:3 7 AM EDT 07/08/2022 11:37 AM EDT [facility] External Provider LAB BLO OD ORDERABLES Final Result Performing Organization Address [facility] Co de Phone Number [facility] [address] [place] [address] [phone] * Sed Rate by Modified Magdalene (07/08/2022 11:37 AM EDT) Pathologist [facility] Erythrocyte Sedimentation Rate 6 0 - 20 MM/HR [facility] Comment:Patients with polycy themia and many hemoglobin abnormalitiesmay have depressed sed rates whereas patients with anemiamay have elevated sed rates. 07/08/2022 11:3 7 AM EDT 07/08/2022 11:37 AM EDT [facility] External Provider LAB BLO OD ORDERABLES Final Result Performing Organization Address [facility] Co de Phone Number [facility] [address] [place] [phone] * APTT (07/08/2022 11:37 AM EDT) Partial Thromboplastin Time 30.5 26.0 - 36.4 SEC [facility] 07/08/2022 11:3 7 AM EDT 07/08/2022 11:37 AM EDT [facility] External Provider LAB BLO OD ORDERABLES Final Result Performing Organization Address [facility] de Phone Number [facility] [address] [place] [address] [phone] * Prothrombin Time-INR (07/08/2022 11:37 AM EDT) [facility] Prothrombin Time 11.8 10.0 - 13.1 SEC [facility] INTERNATIONAL NORM RATIO 1.0 0.9 - 1.1 [facility] Comment:INTERNATIONAL NORMAL IZED RATIO (INR) [...] 7 AM EDT 07/08/2022 11:37 AM EDT [facility] External Provider LAB BLO OD ORDERABLES Final Result Performing Organization Address City/State/[facility] Co de Phone Number [facility] [address] [place] [phone] * (ABNORMAL) CBC auto differential (07/08/2022 11:37 AM EDT) [facility] White Blood Count 9.3 4.8 - 10.8 X10*3/uL [facility] Red Blood Count 4.52 4.20 - 5.50 X10*6/uL [facility] Hemoglobin 14.3 12.0 - 16.0 g/dl [facility] Hematocrit 42.3 37.0 - 47.0 % [facility] Mean Corpuscular Volume 93.6 80.0 - 98.0 fL [facility] Mean Corpuscular Hemoglobin 31.6 27.0 - 33.0 pg [facility] Mean Corpuscular HGB Conc 33.8 31.0 - 35.0 g/dl [facility] Red Cell Distribution Width 12.4 11.0 - 16.0 % [facility] Platelet Count 260 160 - 400 X10*3/uL [facility] Mean Platelet Volume 11.0 9.4 - 12.3 fL [facility] Neutrophils Percent Auto 67.8 45 - 73 % [facility] Imm Gran Pct Auto 0.4 0.0 - 0.4 % [facility] Lymphocytes Percent Auto 24.9 20 - 40 % [facility] Monocytes Percent Auto 5.5 2 - 11 % [facility] Eosinophils Percent Auto 0.8 0 - 4 % [facility] Basophils Percent Auto 0.6 0 - 2 % [facility] NRBC Pct Auto 0.0 0.0 - 0.2 /100WBC [facility] Neutrophils Absolute Auto 6.3 2.0 - 8.3 x10*3/uL [facility] Imm Gran Abs Auto 0.04(H) 0.00 - 0.03 X10*3/uL [facility] Lymphocytes Absolute Auto 2.3 1.2 - 4.9 X10*3/uL [facility] Monocytes Absolute Auto 0.5 0.1 - 1.2 X10*3/uL [facility] Eosinophils Absolute Auto 0.1 0.0 - 0.4 X10*3/uL [facility] Basophils Absolute Auto 0.1 0.0 - 0.2 X10*3/uL [facility] NRBC Abs Auto 0.000 0.0 - 0.012 X10*3/uL [facility] 07/08/2022 11:3 7 AM EDT 07/08/2022 11:37 AM EDT us [facility] External Provider LAB BLO OD ORDERABLES Final Result [facility] [address] [place] [address] [phone] documented in this encounter Visit Diagnoses Diagnosis Right ovarian cyst- Primary Other and unspecified ovarian cyst documented in this encounter Additional Health Concerns Assessment Noted Time PHQ-9 Depression Total Score: 3 06/04/19 23 3:42 PM EDT documented as of this encounter Care Teams Senior Account Executive Relationship Specialty Start Date End Date Carlo Santana MD [address] [place] [phone] PCP - General Internal Medicine 12/28/17 documented as of this encounter
--- OUTSIDE RECORDS SUMMARY | 2024-12-28 10:48 | XMS_ITS | Encounter Summary ---
Author Organization [employer] Address [address] [facility] 7t [place] [address] Care Team Providers Care Obiee Obia Solution Architect Name Role Phone Carlo Santana MD Primary Care Provider [phone] Reason for Visit * Reason Onset Date Comments Med Refill 10/26/2024 Encounter Details Date Type Department Care Team ([facility] st Contact Info) Description 10/26/2024 Telephone [facility] MEDICINE [address] [place] [address] Carlo Santana MD 505 [place], [place] [phone] Med Refill Social History Tobacco Use Types [...] (Roxicodone) 10 [facility]. If any questions you can contact pt at [phone]. documented in this encounter Plan of Treatment Upcoming Encounters Date Type Department Care Team ([facility] st Contact Info) Description 01/02/2025 2:15 PM EDT Clinical Support [facility] MED & PEDS 505 [place] [address] Fariba Gandhi RN 505 [place] [address] documented as of this encounter Visit Diagnoses Not on filedocumented in this encounter Additional Health Concerns Assessment Noted Time PHQ-9 Depression Total Score: 6 08/22/19 25 10:16 AM EDT documented as of this encounter Care Teams Obiee Obia Solution Architect Relationship Specialty Start Date End Date Carlo Santana MD 505 [place] [address] PCP - General Internal Medicine 12/28/17 documented as of this encounter
--- OUTSIDE RECORDS SUMMARY | 2024-12-28 10:48 | XMS_ITS | Encounter Summary ---
Author Organization [employer] Address [address] [facility] 7t [place] [address] Care Team Providers Care Security Door Installer Name Role Phone Carlo Santana MD Primary Care Provider +- [phone] Reason for Visit * Reason Onset Date Comments Medication Question 01/25/2023 Encounter Details Date Type Department Care Team ([facility] Contact Info) Description 01/25/2023 Telephone [facility]S 505 [place] [address] Carlo Santana MD 505 [place], [place] [phone] Medication Question Social History Tobacco Use Types [...] returning phone call Please contact pt at [phone] * Telephone Encounter - Rand Savage RN [...] losing any weight. Please contact pt at [phone] documented in this encounter Plan of Treatment Upcoming Encounters Date Type Department Care Team (Late st Contact Info) Description 01/02/2025 2:15 PM EDT Clinical Support [facility]S 505 [place] [address] Fariba Gandhi, HUGO 505 [place] [address] documented as of this encounter Visit Diagnoses Diagnosis Low back pain radiating down leg documented in this encounter Additional Health Concerns Assessment Noted Time PHQ-9 Depression Total Score: 3 06/04/19 23 3:42 PM EDT documented as of this encounter Care Teams Security Door Installer Relationship Specialty Start Date End Date Carlo Santana MD 505 [place] [address] PCP - General Internal Medicine 12/28/17 documented as of this encounter
--- OUTSIDE RECORDS SUMMARY | 2024-12-28 10:48 | XMS_ITS | Encounter Summary ---
Author Organization [employer] Address [address] [facility] 7t [place] [address] Care Team Providers Care Metal Shaping Machine Operator Name Role Phone Carlo Santana MD Primary Care Provider [phone] Reason for Visit * Reason Onset Date Comments Medication Question 10/25/2024 Encounter Details Date Type Department Care Team ([facility] Contact Info) Description 10/25/2024 Telephone [facility] MEDICINE 230 [place] [address] Carlo Santana MD 505 [place], [place] [phone] Medication Question Social History Tobacco Use Types [...] Description 01/02/2025 2:15 PM EDT Clinical Support [facility] MED & PEDS 505 [place] [address] Fariba Gandhi RN 505 [place] [address] documented as of this encounter Visit Diagnoses Not on filedocumented in this encounter Additional Health Concerns Assessment Noted Time PHQ-9 Depression Total Score: 6 08/22/19 25 10:16 AM EDT documented as of this encounter Care Teams Metal Shaping Machine Operator Relationship Specialty Start Date End Date Carlo Santana MD 505 [place] [address] PCP - General Internal Medicine 12/28/17 documented as of this encounter
--- OUTSIDE RECORDS SUMMARY | 2024-12-28 10:48 | XMS_ITS | Encounter Summary ---
Author Organization [employer] Address [address] [facility] 7t [place] [address] Care Team Providers Care Batch Dumper Name Role Phone Calro Santana MD Primary Care Provider [phone] Reason for Visit * Reason Onset Date Comments Referral 07/26/2022 Encounter Details Date Type Department Care Team ([facility] st Contact Info) Description 07/26/2022 Telephone [facility] MEDICINE 230 [place] [address] Carlo Santana MD 505 [place], [place] [phone] Referral Social History Tobacco Use Types Packs/Day [...] was not satisfied. Please contact pt at [phone] documented in this encounter Plan of Treatment Upcoming Encounters Date Type Department Care Team ([facility] st Contact Info) Description 01/02/2025 2:15 PM EDT Clinical Support [facility] MED & PEDS 505 [place] [address] Fariba Gandhi, HUGO 505 [place] [address] documented as of this encounter Visit Diagnoses Not on filedocumented in this encounter Additional Health Concerns Assessment Noted Time PHQ-9 Depression Total Score: 3 06/04/19 23 3:42 PM EDT documented as of this encounter Care Teams Batch Dumper Relationship Specialty Start Date End Date Carlo Santana MD 505 [place] [address] PCP - General Internal Medicine 12/28/17 documented as of this encounter
--- OUTSIDE RECORDS SUMMARY | 2024-12-28 10:48 | XMS_ITS | Encounter Summary ---
Author Organization [employer] Address [address] [facility] 7t [place] [address] Care Team Providers Care Examination Scorer Name Role Phone Carlo Santana MD Primary Care Provider [phone] Reason for Visit * Reason Onset Date Comments requesting a call back 09/03/2024 Encounter Details Date Type Department Care Team ([facility] Contact Info) Description 09/03/2024 Telephone [facility] MED & PEDS 505 [place] [address] Carlo Santana MD 505 [place], [place] [phone] requesting a call back Social History Tobacco [...] other than back surgery. Contact pt at [phone] documented in this encounter Plan of Treatment Upcoming Encounters Date Type Department Care Team (Late st Contact Info) Description 01/02/2025 2:15 PM EDT Clinical Support [facility] MED & PEDS 505 [place] [address] Fariba Gandhi, RN 505 [place] [address] documented as of this encounter Visit Diagnoses Diagnosis [place] (generalized anxiety disorder) Generalized anxiety disorder documented in this encounter Additional Health Concerns Assessment Noted Time PHQ-9 Depression Total Score: 6 08/22/19 25 10:16 AM EDT documented as of this encounter Care Teams Examination Scorer Relationship Specialty Start Date End Date Carlo Santana MD 505 [place] [address] PCP - General Internal Medicine 12/28/17 documented as of this encounter
--- OUTSIDE RECORDS SUMMARY | 2024-12-28 10:48 | XMS_ITS | Encounter Summary ---
Author Organization [employer] Address [address] [facility] 7t [place] [address] Care Team Providers Care Flow Coordinator Name Role Phone Carlo Santana MD Primary Care Provider [phone] Reason for Visit * Reason Comments Med Refill Encounter Details Date Type Department Care Team ([facility] st Contact Info) Description 01/16/2023 Refill [facility] MEDICINE 230 [place] [address] Carlo Santana MD [address] [facility] [facility] [address] [place], [place] [phone] Muscle spasm Social History Tobacco Use Types [...] 2:15 PM EDT Clinical Support [facility] MED & PEDS 505 [place] [address] Fariba Gandhi, HUGO 505 [place] [address] documented as of this encounter Visit Diagnoses Diagnosis Muscle spasm Spasm of muscle documented in this encounter Additional Health Concerns Assessment Noted Time PHQ-9 Depression Total Score: 3 06/04/19 23 3:42 PM EDT documented as of this encounter Care Teams Flow Coordinator Relationship Specialty Start Date End Date Carlo Santana MD 505 [place] [address] PCP - General Internal Medicine 12/28/17 documented as of this encounter
--- OUTSIDE RECORDS SUMMARY | 2024-12-28 10:48 | XMS_ITS | Encounter Summary ---
Author Organization [employer] Address [address] [facility] 7t [place] [address] Care Team Providers Care Regulatory Law Specialist Name Role Phone Carlo Santana MD Primary Care Provider [phone] Reason for Visit * Reason Comments Med Change Request Encounter Details Date Type Department Care Team ([facility] st Contact Info) Description 09/11/2024 Refill [facility] MEDICINE 230 [place] [address] Carlo Santana MD 505 [place], [place] [phone] Bipolar affective disorder, remission status unspecified (CMS/HCC) [...] ([facility] st Contact Info) Description 01/02/2025 2:15 PM EDT Clinical Support [facility] MED & PEDS 505 [place] [address] Fariba Gandhi, HUGO 505 [place] [address] documented as of this encounter Visit Diagnoses Diagnosis Bipolar affective disorder, remission status unspecified (CMS/HCC) (HCC) documented in this encounter Additional Health Concerns Assessment Noted Time PHQ-9 Depression Total Score: 6 08/22/19 25 10:16 AM EDT documented as of this encounter Care Teams Regulatory Law Specialist Relationship Specialty Start Date End Date Carlo Santana MD 505 [place] [address] PCP - General Internal Medicine 12/28/17 documented as of this encounter
--- OUTSIDE RECORDS SUMMARY | 2024-12-28 10:48 | XMS_ITS | Encounter Summary ---
Author Organization [employer] Address [address] [facility] 7t [place] [address] Care Team Providers Care Human Resources Professional Name Role Phone Carlo Santana MD Primary Care Provider [phone] Reason for Visit * Reason Onset Date Comments FYI 08/10/2023 Encounter Details Date Type Department Care Team ([facility] st Contact Info) Description 08/10/2023 Telephone [facility] MEDICINE 230 [place] [address] Carlo Santana MD 505 [place], [place] [phone] FYI Social History Tobacco Use Types Packs/Day [...] 2:15 PM EDT Clinical Support [facility] MED & PEDS 505 [place] [address] Fariba Gandhi, HUGO 505 [place] [address] documented as of this encounter Visit Diagnoses Not on filedocumented in this encounter Additional Health Concerns Assessment Noted Time PHQ-9 Depression Total Score: 3 06/04/19 23 3:42 PM EDT documented as of this encounter Care Teams Human Resources Professional Relationship Specialty Start Date End Date Carlo Santana MD 505 [place] [address] PCP - General Internal Medicine 12/28/17 documented as of this encounter
--- OUTSIDE RECORDS SUMMARY | 2024-12-28 10:48 | XMS_ITS | Encounter Summary ---
Author Organization [employer] Address [address] [facility] 7t [place] [address] Care Team Providers Care Motor Pool Clerk Name Role Phone Carlo Santana MD Primary Care Provider [phone] Reason for Visit * Reason Onset Date Comments Appointment Request 06/04/2024 Encounter Details Date Type Department Care Team ([facility] Contact Info) Description 06/04/2024 Telephone [facility] MEDICINE 230 [place] [address] Carlo Santana MD 505 [place], [place] [phone] Appointment Request Social History Tobacco Use Types [...] R/s ppt from 05/31/24. Contact pt at [phone] documented in this encounter Plan of Treatment Upcoming Encounters Date Type Department Care Team ([facility] st Contact Info) Description 01/02/2025 2:15 PM EDT Clinical Support [facility] MED & PEDS 505 [place] [address] Fariba Gandhi, HUGO 505 [place] [address] documented as of this encounter Visit Diagnoses Not on filedocumented in this encounter Additional Health Concerns Assessment Noted Time PHQ-9 Depression Total Score: 15 024 11:50 AM EST documented as of this encounter Care Teams Motor Pool Clerk Relationship Specialty Start Date End Date Carlo Santana MD 505 [place] [address] PCP - General Internal Medicine 12/28/17 documented as of this encounter
--- OUTSIDE RECORDS SUMMARY | 2024-12-28 10:48 | XMS_ITS | Encounter Summary ---
Author Organization [employer] Address [address] [facility] 7t [place] [address] Care Team Providers Care Manager Lvn Name Role Phone Carlo Santana MD Primary Care Provider [phone] Reason for Visit * Reason Onset Date Comments triage 08/10/2022 Encounter Details Date Type Department Care Team ([facility] st Contact Info) Description 08/10/2022 Telephone [facility] MEDICINE 230 [place] [address] Carlo Santana MD 505 [place], [place] [phone] triage Social History Tobacco Use Types Packs/Day [...] Support [facility] MED & PEDS 505 [place] [address] Fariba Gandhi, HUGO 505 [place] [address] documented as of this encounter Visit Diagnoses Not on filedocumented in this encounter Additional Health Concerns Assessment Noted Time PHQ-9 Depression Total Score: 3 06/04/19 23 3:42 PM EDT documented as of this encounter Care Teams Manager Lvn Relationship Specialty Start Date End Date Carlo Santana MD 505 [place] [address] PCP - General Internal Medicine 12/28/17 documented as of this encounter
--- OUTSIDE RECORDS SUMMARY | 2024-12-28 10:48 | XMS_ITS | Encounter Summary ---
Author Organization [employer] Address [address] [facility] 7t [place] [address] Care Team Providers Care Supply Room Clerk Name Role Phone Carlo Santana MD Primary Care Provider [phone] Reason for Visit * Reason Onset Date Comments Med Refill 01/14/2023 Encounter Details Date Type Department Care Team (Late st Contact Info) Description 01/14/2023 Telephone [facility] MEDICINE 230 [place] [address] Carlo Santana MD [address] [place], [place] [phone] Med Refill Social History Tobacco Use Types [...] Notes * Telephone Encounter - Angel Luis Oreilyl - 01/14/2023 10:04 AM EDT Tc from patient requesting medication refill for oxyCODONE-acetaminophen (Percocet) 5-325 MG tablet. documented in this encounter Plan of Treatment Upcoming Encounters Date Type Department Care Team (Late st Contact Info) Description 01/02/2025 2:15 PM EDT Clinical Support [facility] MED & PEDS 505 [place] [address] Fariba Gandhi, HUGO 505 [place] [address] documented as of this encounter Visit Diagnoses Not on filedocumented in this encounter Additional Health Concerns Assessment Noted Time PHQ-9 Depression Total Score: 3 06/04/19 23 3:42 PM EDT documented as of this encounter Care Teams Supply Room Clerk Relationship Specialty Start Date End Date Carlo Santana MD 505 [place] [address] PCP - General Internal Medicine 12/28/17 documented as of this encounter
--- OUTSIDE RECORDS SUMMARY | 2024-12-28 10:48 | XMS_ITS | Encounter Summary ---
Author Organization [employer] Address [address] [facility] [address], [place] [address] Care Team Providers Care Paint Specialist Name Role Phone Carlo Santana MD Primary Care Provider [phone] Reason for Referral * Consultation (Routine) - Authorized Specialty Diagnoses / Procedures Referred By Contac t Referred To Contact Physiatry Diagnoses History of fall Chronic left-sided low back pain with left-sided sciatica Carlo Santana MD 505 [place] [address] Phone: tel: fax: [facility] [address] Phone: tel: fax: Referral ID Status Reason Start Date Expiration Date Visits Requested Visits Authorized [id number] Authorized Specialty Services Required 08/29/2024 08/29/2025 1 1 * Neurology (Routine) - Closed Specialty Diagnoses / Procedures Referred By Contac t Referred To Contact Diagnoses History of fall Dizziness Procedures EEG awake or drowsy routine Carlo Santana MD 505 [place] [address] Phone: tel: fax: [address] Phone: tel: fax: Referral ID Status Reason Start Date Expiration Date Visits Re quested Visits Authorized [id number] Closed 08/23/2024 08/23/2025 1 1 Encounter Details Date Type Department Care Team ([facility] st Contact Info) Description 08/23/2024 Orders Only [facility] MED & PEDS 505 [place] [address] Carlo Santana MD 505 [place] [address] History of fall (Primary Dx); Dizziness; Chronic [...] [facility] 505 [place] [address] Fariba Gandhi, HUGO 505 [place] [address] Scheduled Orders Name Type Priority Associated Diagnoses [...] documented as of this encounter Care Teams Paint Specialist Relationship Specialty Start Date End Date Carlo Santana MD 505 [place] [address] PCP - General Internal Medicine 12/28/17 documented as of this encounter
--- OUTSIDE RECORDS SUMMARY | 2024-12-28 10:48 | XMS_ITS | Encounter Summary ---
Author Organization [employer] Address 75 [facility] 7t [place] [address] Care Team Providers Care Manager Car Name Role Phone Carlo Santana MD Primary Care Provider [phone] Reason for Visit * Reason Onset Date Comments Call Back Request 06/21/2024 Encounter Details Date Type Department Care Team ([facility] st Contact Info) Description 06/21/2024 Telephone [facility] MEDICINE 230 [place] [address] Carlo Santana MD [address] [facility] [address] [place], [place] [phone] Call Back Request Social History Tobacco Use [...] Description 01/02/2025 2:15 PM EDT Clinical Support [facility] MED & PEDS 505 [place] [address] Fariba Gandhi RN 505 [place] [address] documented as of this encounter Visit Diagnoses Diagnosis Chronic left-sided low back pain with left-sided sciatica documented in this encounter Additional Health Concerns Assessment Noted Time PHQ-9 Depression Total Score: 15 024 11:50 AM EST documented as of this encounter Care Teams Manager Car Relationship Specialty Start Date End Date Carlo Santana MD [address] [place] [address] PCP - General Internal Medicine 12/28/17 documented as of this encounter
--- OUTSIDE RECORDS SUMMARY | 2024-12-28 10:48 | XMS_ITS | Encounter Summary ---
Author Organization [employer] Address 75 [facility] 7t [place] [address] Care Team Providers Care Creative Services Producer Name Role Phone Carlo Santana MD Primary Care Provider [phone] Reason for Visit * Reason Onset Date Comments Med Refill 10/30/2024 Encounter Details Date Type Department Care Team ([facility] Contact Info) Description 10/30/2024 Telephone [facility] MED & PEDS 505 [place] [address] Carlo Santana MD 505 [place] [address] Med Refill Social History Tobacco Use Types [...] Description 01/02/2025 2:15 PM EDT Clinical Support [facility] MED & PEDS 505 [place] [address] Fariba Gandhi, HUGO 505 [place] [address] documented as of this encounter Visit Diagnoses Not on filedocumented in this encounter Additional Health Concerns Assessment Noted Time PHQ-9 Depression Total Score: 6 08/22/19 10:16 AM EDT documented as of this encounter Care Teams Creative Services Producer Relationship Specialty Start Date End Date Carlo Santana MD [address] [place] [address] PCP - General Internal Medicine 12/28/17 documented as of this encounter
--- OUTSIDE RECORDS SUMMARY | 2024-12-28 10:48 | XMS_ITS | Encounter Summary ---
Author Organization [employer] Address 75 [facility] 7t [place] [address] Care Team Providers Care General Worker Name Role Phone Carlo Santana MD Primary Care Provider [phone] Encounter Details Date Type Department Care Team ([facility] st Contact Info) Description 08/05/2023 Telephone [facility] MEDICINE 230 [place] [address] Carlo Santana MD 505 [place], [place] [phone] Social History Tobacco Use Types Packs/Day Years [...] [facility] MED & PEDS 505 [place] [address] Fariba Gandhi, HUGO 505 [place] [address] documented as of this encounter Visit Diagnoses Not on filedocumented in this encounter Additional Health Concerns Assessment Noted Time PHQ-9 Depression Total Score: 3 06/04/19 23 3:42 PM EDT documented as of this encounter Care Teams General Worker Relationship Specialty Start Date End Date Carlo Santana MD 505 [place] [address] PCP - General Internal Medicine 12/28/17 documented as of this encounter
--- OUTSIDE RECORDS SUMMARY | 2024-12-28 10:48 | XMS_ITS | Encounter Summary ---
Author Organization [employer] Address [address] [facility] 7t [place] [address] Care Team Providers Care Bedspread Inspector Name Role Phone Carlo Santana MD Primary Care Provider [phone] Reason for Visit * Reason Onset Date Comments Med Refill 06/04/2024 Encounter Details Date Type Department Care Team (Late st Contact Info) Description 06/04/2024 Telephone [facility] MEDICINE 230 [place] [address] Carlo Santana MD 505 [place], [place] [phone] Med Refill Social History Tobacco Use Types [...] immediate release tablet To be sent to: [facility]/pharmacy #[id number] LEATHA PHILLIPS - [id number] [facility] documented in this encounter Plan of Treatment Upcoming Encounters Date Type Department Care Team ([facility] Contact Info) Description 01/02/2025 2:15 PM EDT Clinical Support [facility] MED & PEDS 505 [place] [address] Fariba Gandhi RN 505 [place] [address] documented as of this encounter Visit Diagnoses Not on filedocumented in this encounter Additional Health Concerns Assessment Noted Time PHQ-9 Depression Total Score: 15 024 11:50 AM EST documented as of this encounter Care Teams Bedspread Inspector Relationship Specialty Start Date End Date Carlo Santana MD 505 [facility] [place] [address] PCP - General Internal Medicine 12/28/17 documented as of this encounter
--- OUTSIDE RECORDS SUMMARY | 2024-12-28 10:48 | XMS_ITS | Encounter Summary ---
Author Organization [employer] Address [address] [place] [address] Care Team Providers Care Engineer Third Assistant Name Role Phone Carlo Santana MD Primary Care Provider [phone] Reason for Referral * Consultation (Routine) - Closed Specialty Diagnoses / Procedures Referred By Contac t Referred To Contact Pain Medicine Diagnoses Chronic left-sided low back pain with left-sided sciatica Lumbar radiculopathy Chronic right-sided low back pain with right-sided sciatica Carlo Santana MD [address] [place] [address] Phone: tel: fax: [facility] [address] [place] [address] Phone: tel: fax: Referral ID Status Reason Start Date Expiration Date V isits Requested Visits Authorized [id number] Closed Specialty Services Required 07/29/2023 07/28/2024 1 1 Encounter Details Date Type Department Care Team ([facility] st Contact Info) Description 07/29/2023 Orders Only [facility] CHC MED & PEDS [address] [place] [address] Carlo Santana MD [address] [place] [address] Chronic left-sided low back pain with left-sided [...] 2:15 PM EDT Clinical Support [facility] MED & PEDS 505 [place] [address] Fariba Gandhi RN 505 [place] [address] Scheduled Referrals Name Type Priority Associated Diagnoses [...] as of this encounter Care Teams Engineer Third Assistant Relationship Specialty Start Date End Date Carlo Santana MD [address] [place] [address] PCP - General Internal Medicine 12/28/17 documented as of this encounter
--- OUTSIDE RECORDS SUMMARY | 2024-12-28 10:48 | XMS_ITS | Encounter Summary ---
Author Organization [employer] Address [address] [place] [address] 7 [place] [address] Care Team Providers Care Registered Nurse Hh Case Manager Name Role Phone Carlo Santana MD Primary Care Provider [phone] Encounter Details Date Type Department Care Team (Late st Contact Info) Description 11/03/2022 Orders Only [facility] CHC MED & PEDS [address] [place], [place] [phone] Carlo Santana MD [address] [place] [address] Obesity (BMI 30-39.9) (Primary Dx); Chronic left-sided [...] Support [facility] CHC MED & PEDS [address] [place] [address] Fariba Gandhi, RN 505 [place] [address] documented as of this encounter Visit Diagnoses Diagnosis Obesity (BMI 30-39.9)- Primary Chronic left-sided low back pain with left-sided sciatica documented in this encounter Additional Health Concerns Assessment Noted Time PHQ-9 Depression Total Score: 3 06/04/19 23 3:42 PM EDT documented as of this encounter Care Teams Registered Nurse Hh Case Manager Relationship Specialty Start Date End Date Carlo Santana MD 505 [place] [address] PCP - General Internal Medicine 12/28/17 documented as of this encounter
--- OUTSIDE RECORDS SUMMARY | 2024-12-28 10:48 | XMS_ITS | Encounter Summary ---
Author Organization [employer] Address 75 [facility] 7t [place] [address] Care Team Providers Care Recreation Leader Name Role Phone Carlo Santana MD Primary Care Provider [phone] Reason for Visit * Reason Onset Date Comments Results 08/22/2024 Encounter Details Date Type Department Care Team ([facility] Contact Info) Description 08/22/2024 Telephone [facility] MEDICINE [address] [place] [address] Carlo Santana MD [address] [place], [place] [phone] Results Social History Tobacco Use Types Packs/Day [...] Lumbar Spine Date when done: 08/22 Facility: [facility] documented in this encounter Plan of Treatment Upcoming Encounters Date Type Department Care Team ([facility] st Contact Info) Description 01/02/2025 2:15 PM EDT Clinical Support [facility] MED & PEDS 505 [place] [address] Fariba Gandhi RN 505 [place] [address] documented as of this encounter Visit Diagnoses Not on filedocumented in this encounter Additional Health Concerns Assessment Noted Time PHQ-9 Depression Total Score: 6 08/22/19 25 10:16 AM EDT documented as of this encounter Care Teams Recreation Leader Relationship Specialty Start Date End Date Carlo Santana MD [address] [place] [address] PCP - General Internal Medicine 12/28/17 documented as of this encounter
--- OUTSIDE RECORDS SUMMARY | 2024-12-28 10:48 | XMS_ITS | Encounter Summary ---
Author Organization [employer] Address 75 [facility] 7t [place] [address] Care Team Providers Care Education Coordinator Name Role Phone Carlo Santana MD Primary Care Provider [phone] Encounter Details Date Type Department Care Team ([facility] st Contact Info) Description 01/19/2023 Orders Only [facility] CHC MED & PEDS 505 [place], [place] [phone] Carlo Santana MD 505 [place], [place] [phone] Neck pain (Primary Dx); Chronic left-sided low [...] ([facility] st Contact Info) Description 01/02/2025 2:15 PM EDT Clinical Support [facility] MED & PEDS 505 [place] [address] Fariba Gandhi, HUGO 505 [place] [address] documented as of this encounter Visit Diagnoses Diagnosis Neck pain- Primary Cervicalgia Chronic left-sided low back pain with left-sided sciatica documented in this encounter Additional Health Concerns Assessment Noted Time PHQ-9 Depression Total Score: 3 06/04/19 23 3:42 PM EDT documented as of this encounter Care Teams Education Coordinator Relationship Specialty Start Date End Date Carlo Santana MD 505 [place] [address] PCP - General Internal Medicine 12/28/17 documented as of this encounter
--- OUTSIDE RECORDS SUMMARY | 2024-12-28 10:48 | XMS_ITS | Encounter Summary ---
Author Organization [employer] Address 75 [facility] 7t [place] [address] Care Team Providers Care Street Commissioner Name Role Phone Carlo Santana MD Primary Care Provider [phone] Reason for Visit * Reason Onset Date Comments Med Refill 09/17/2024 Encounter Details Date Type Department Care Team (Late st Contact Info) Description 09/17/[address] [facility] MEDICINE [address] [place] [address] Carlo Santana MD 505 [place], [place] [phone] Chronic left-sided low back pain with left-sided [...] 01/02/2025 2:15 PM EDT Clinical Support [facility] CHC MED & PEDS 505 [place] [address] Fariba Gandhi, HUGO 505 [place] [address] documented as of this encounter Visit Diagnoses Diagnosis Chronic left-sided low back pain with left-sided sciatica documented in this encounter Additional Health Concerns Assessment Noted Time PHQ-9 Depression Total Score: 6 08/22/19 25 10:16 AM EDT documented as of this encounter Care Teams Street Commissioner Relationship Specialty Start Date End Date Carlo Santana MD 505 [place] [address] PCP - General Internal Medicine 12/28/17 documented as of this encounter
--- OUTSIDE RECORDS SUMMARY | 2024-12-28 10:48 | XMS_ITS | Encounter Summary ---
Author Organization [employer] Address 75 [facility] 7 [place] [address] Care Team Providers Care Trade Sales Assistant Name Role Phone Carlo Santana MD Primary Care Provider [phone] Encounter Details Date Type Department Care Team ([facility] st Contact Info) Description 10/26/2024 Orders Only [facility] CHC MED & PEDS 505 [place], [place] [phone] Carlo Santana MD 505 [place], [place] [phone] Chronic left-sided low back pain with left-sided [...] Upcoming Encounters Date Type Department Care Team ([facility] st Contact Info) Description 01/02/2025 2:15 PM EDT Clinical Support [facility] CHC MED & PEDS 505 [place] [address] Fariba Gandhi, HUGO 505 [place] [address] documented as of this encounter Visit Diagnoses Diagnosis Chronic left-sided low back pain with left-sided sciatica documented in this encounter Additional Health Concerns Assessment Noted Time PHQ-9 Depression Total Score: 6 08/22/19 25 10:16 AM EDT documented as of this encounter Care Teams Trade Sales Assistant Relationship Specialty Start Date End Date Carlo Santana MD 505 [place] [address] PCP - General Internal Medicine 12/28/17 documented as of this encounter
--- OUTSIDE RECORDS SUMMARY | 2024-12-28 10:48 | XMS_ITS | Encounter Summary ---
Author Organization [employer] Address 75 [facility] 7 [place] [address] Care Team Providers Care Engraved Roller Inspector Name Role Phone Carlo Santana MD Primary Care Provider [phone] Encounter Details Date Type Department Care Team ([facility] st Contact Info) Description 09/28/2024 Orders Only [facility] CHC MED & PEDS [address] [place], [place] [phone] Carlo Santana MD 505 [place], [place] [phone] Social History Tobacco Use Types Packs/Day Years [...] Support [facility] MED & PEDS [address] [place] [address] Fariba Gandhi, HUGO 505 [place] [address] documented as of this encounter Visit Diagnoses Not on filedocumented in this encounter Additional Health Concerns Assessment Noted Time PHQ-9 Depression Total Score: 6 08/22/19 25 10:16 AM EDT documented as of this encounter Care Teams Engraved Roller Inspector Relationship Specialty Start Date End Date Carlo Santana MD [address] [place] [address] PCP - General Internal Medicine 12/28/17 documented as of this encounter
--- OUTSIDE RECORDS SUMMARY | 2024-12-28 10:49 | XMS_ITS | Encounter Summary ---
Author Organization [employer] Address 75 [facility] 7t [place] [address] Care Team Providers Care Elementary Librarian Name Role Phone Carlo Santana MD Primary Care Provider [phone] Reason for Visit * Reason Onset Date Comments Med Refill 10/25/2024 Encounter Details Date Type Department Care Team ([facility] st Contact Info) Description 10/25/2024 Telephone [facility] MEDICINE [address] [place] [address] Carlo Santana MD [address] [place], [place] [phone] Med Refill Social History Tobacco Use Types [...] MG tablet To be sent to: - [facility]/pharmacy #[id number] LEATHA PHILLIPS - [address] [facility] documented in this encounter Plan of Treatment Upcoming Encounters Date Type Department Care Team ([facility] st Contact Info) Description 01/02/2025 2:15 PM EDT Clinical Support [facility] MED & PEDS 505 [place] [address] Fariba Gandhi, RN 505 [place] [address] documented as of this encounter Visit Diagnoses Not on filedocumented in this encounter Additional Health Concerns Assessment Noted Time PHQ-9 Depression Total Score: 6 08/22/19 25 10:16 AM EDT documented as of this encounter Care Teams Elementary Librarian Relationship Specialty Start Date End Date Carlo Santana MD [address] [place] [address] PCP - General Internal Medicine 12/28/17 documented as of this encounter
--- OUTSIDE RECORDS SUMMARY | 2024-12-28 10:49 | XMS_ITS | Encounter Summary ---
Author Organization [employer] Address 75 [facility] 7t [place] [address] Care Team Providers Care Logistics System Engineer Name Role Phone Carlo Santana MD Primary Care Provider [phone] Reason for Visit * Reason Onset Date Comments Med Refill 10/18/2024 Encounter Details Date Type Department Care Team (Late st Contact Info) Description 10/18/2024 Telephone [facility] MEDICINE [address] [place] [address] Carlo Santana MD 505 [place], [place] [phone] Med Refill Social History Tobacco Use Types [...] immediate release tablet To be sent to: [facility]/pharmacy #[id number] - LEATHA PHILLIPS - [address] *aware due next week documented in this encounter Plan of Treatment Upcoming Encounters Date Type Department Care Team ([facility] st Contact Info) Description 01/02/2025 2:15 PM EDT Clinical Support [facility] CHC MED & PEDS 505 [place] [address] Fariba Gandhi, HUGO 505 [place] [address] documented as of this encounter Visit Diagnoses Not on filedocumented in this encounter Additional Health Concerns Assessment Noted Time PHQ-9 Depression Total Score: 6 08/22/19 25 10:16 AM EDT documented as of this encounter Care Teams Logistics System Engineer Relationship Specialty Start Date End Date Carlo Santana MD [address] [place] [address] PCP - General Internal Medicine 12/28/17 documented as of this encounter
--- OUTSIDE RECORDS SUMMARY | 2024-12-28 10:49 | XMS_ITS | Encounter Summary ---
Author Organization [employer] Address 75 [facility] 7t [place] [address] Care Team Providers Care Director Intelligence Analysis Programs Name Role Phone Carlo Santana MD Primary Care Provider [phone] Encounter Details Date Type Department Care Team ([facility] st Contact Info) Description 11/07/2023 Orders Only [facility] CHC MED & PEDS [address] [place], [place] [phone] Carlo Santana MD 505 [place], [place] [phone] Muscle spasm Social History Tobacco Use Types [...] [facility] MED & PEDS [address] [place] [address] Fariba Gandhi, HUGO 505 [place] [address] documented as of this encounter Visit Diagnoses Diagnosis Muscle spasm Spasm of muscle documented in this encounter Additional Health Concerns Assessment Noted Time PHQ-9 Depression Total Score: 3 06/04/19 23 3:42 PM EDT documented as of this encounter Care Teams Director Intelligence Analysis Programs Relationship Specialty Start Date End Date Carlo Santana MD 505 [place] [address] PCP - General Internal Medicine 12/28/17 documented as of this encounter
--- OUTSIDE RECORDS SUMMARY | 2024-12-28 10:49 | XMS_ITS | Encounter Summary ---
Author Organization [employer] Address 75 [facility] 7t [place] [address] Care Team Providers Care Global Creative Chairman Name Role Phone Carlo Santana MD Primary Care Provider [phone] Reason for Visit * Reason Comments Med Refill Encounter Details Date Type Department Care Team ([facility] st Contact Info) Description 11/02/2023 Refill [facility] MEDICINE [address] [place], [place] [phone] Carlo Santana MD [address] [facility] [address] [place], [place] [phone] Chronic left-sided low back pain with left-sided [...] Upcoming Encounters Date Type Department Care Team ([facility] st Contact Info) Description 01/02/2025 2:15 PM EDT Clinical Support [facility] MED & PEDS 505 [place] [address] Fariba Gandhi, HUGO 505 [place] [address] documented as of this encounter Visit Diagnoses Diagnosis Chronic left-sided low back pain with left-sided sciatica documented in this encounter Additional Health Concerns Assessment Noted Time PHQ-9 Depression Total Score: 3 06/04/19 23 3:42 PM EDT documented as of this encounter Care Teams Global Creative Chairman Relationship Specialty Start Date End Date Carlo Santana MD 505 [place] [address] PCP - General Internal Medicine 12/28/17 documented as of this encounter
--- OUTSIDE RECORDS SUMMARY | 2024-12-28 10:49 | XMS_ITS | Encounter Summary ---
Author Organization [employer] Address 75 [facility] 7t [place] [address] Care Team Providers Care Manager Radiation Name Role Phone Carlo Santana MD Primary Care Provider [phone] Reason for Visit * Reason Onset Date Comments Med Refill 02/20/2024 Encounter Details Date Type Department Care Team ([facility] st Contact Info) Description 02/20/2024 Telephone [facility] MEDICINE 230 [place] [address] Carlo Santana MD 505 [place], [place] [phone] Med Refill Social History Tobacco Use Types [...] PM EST Disposable underpads order sent to [employer] and signed rx sent to scan pending decision. * Telephone Encounter - Grabiel Taylor - 02/20/2024 9:08 AM EST Tc from pt stating that the doctor stated that he would prescribe disposable bed pads. Pt would like for them to go to [facility]. If any question you can contact pt at [phone] documented in this encounter Plan of Treatment Upcoming Encounters Date Type Department Care Team (Late st Contact Info) Description 01/02/2025 2:15 PM EDT Clinical Support [facility] CHC MED & PEDS [address] [place] [address] Fariba Gandhi, RN 505 [place] [address] documented as of this encounter Visit Diagnoses Not on filedocumented in this encounter Additional Health Concerns Assessment Noted Time PHQ-9 Depression Total Score: 15 024 11:50 AM EST documented as of this encounter Care Teams Manager Radiation Relationship Specialty Start Date End Date Carlo Santana MD [address] [place] [address] PCP - General Internal Medicine 12/28/17 documented as of this encounter
--- OUTSIDE RECORDS SUMMARY | 2024-12-28 10:49 | XMS_ITS | Encounter Summary ---
Author Organization [employer] Address 75 [facility] 7t [place] [address] Care Team Providers Care Beater Engineer Name Role Phone Carlo Santana MD Primary Care Provider [phone] Reason for Visit * Reason Onset Date Comments Results 02/14/2023 Encounter Details Date Type Department Care Team ([facility] Contact Info) Description 02/14/2023 Telephone [facility] MED & PEDS 505 [place] [address] Carlo Santana MD 505 [place] [address] Results Social History Tobacco Use Types Packs/Day [...] hip on 02/09. Please contact pt at [phone] documented in this encounter Plan of Treatment Upcoming Encounters Date Type Department Care Team (Late st Contact Info) Description 01/02/2025 2:15 PM EDT Clinical Support [facility] MED & PEDS 505 [place] [address] Fariba Gandhi RN 505 [place] [address] documented as of this encounter Visit Diagnoses Not on filedocumented in this encounter Additional Health Concerns Assessment Noted Time PHQ-9 Depression Total Score: 3 06/04/19 23 3:42 PM EDT documented as of this encounter Care Teams Beater Engineer Relationship Specialty Start Date End Date Carlo Santana MD [address] [place] [address] PCP - General Internal Medicine 12/28/17 documented as of this encounter
--- OUTSIDE RECORDS SUMMARY | 2024-12-28 10:49 | XMS_ITS | Encounter Summary ---
Author Organization [employer] Address 75 [facility] 7t [place] [address] Care Team Providers Care Can Cutter Name Role Phone Carlo Santana MD Primary Care Provider [phone] Reason for Visit * Reason Comments Med Refill Encounter Details Date Type Department Care Team ([facility] st Contact Info) Description 03/31/2023 Refill [facility] MEDICINE [address] [place] [address] Carlo Santana MD [address] [facility] [address] [place], [place] [phone] Chronic left-sided low back pain with left-sided [...] [facility] MED [facility]ED[facility] [address] [place] [address] Fariba Gandhi RN 505 [place] [address] documented as of this encounter Visit Diagnoses Diagnosis Chronic left-sided low back pain with left-sided sciatica Low back pain radiating down leg documented in this encounter Additional Health Concerns Assessment Noted Time PHQ-9 Depression Total Score: 3 06/04/19 23 3:42 PM EDT documented as of this encounter Care Teams Can Cutter Relationship Specialty Start Date End Date Carlo Santana MD 505 [place] [address] PCP - General Internal Medicine 12/28/17 documented as of this encounter
--- OUTSIDE RECORDS SUMMARY | 2024-12-28 10:49 | XMS_ITS | Encounter Summary ---
Author Organization [employer] Address 75 [facility] 7t [place] [address] Care Team Providers Care Behavioral Consultant Name Role Phone Carlo Santana MD Primary Care Provider [phone] Encounter Details Date Type Department Care Team ([facility] st Contact Info) Description 09/16/2023 Orders Only [facility] CHC MED & PEDS [address] [place], [place] [phone] Carlo Santana MD 505 [place], [place] [phone] Bipolar affective disorder, remission status unspecified ([facility]) Social History Tobacco Use Types Packs/Day [...] [facility] MED & PEDS [address] [place] [address] Fariba Gandhi RN 505 [place] [address] documented as of this encounter Visit Diagnoses Diagnosis Bipolar affective disorder, remission status unspecified (CMS/HCC) (HCC) documented in this encounter Additional Health Concerns Assessment Noted Time PHQ-9 Depression Total Score: 3 06/04/19 23 3:42 PM EDT documented as of this encounter Care Teams Behavioral Consultant Relationship Specialty Start Date End Date Carlo Santana MD 505 [place] [address] PCP - General Internal Medicine 12/28/17 documented as of this encounter
--- OUTSIDE RECORDS SUMMARY | 2024-12-28 10:49 | XMS_ITS | Encounter Summary ---
Author Organization [employer] [facility] Address [address] [place] [address] 7 [place] [address] Care Team Providers Care Clerical Office Worker Name Role Phone Carlo Santana MD Primary Care Provider [phone] Encounter Details Date Type Department Care Team (Latest Contact Info) Description 10/14/2021 Abstract [facility] CONVERSIONS Dental, Provider, DDS Social History Tobacco [...] 2:15 PM EDT Clinical Support [facility] CHC MED & PEDS 505 [place] [address] Fariba Gandhi, HUGO 505 [place] [address] documented as of this encounter Visit Diagnoses Not on filedocumented in this encounter Care Teams Clerical Office Worker Relationship Specialty Start Date End Date Carlo Santana MD 505 [place] [address] PCP - General Internal Medicine 12/28/17 documented as of this encounter
--- OUTSIDE RECORDS SUMMARY | 2024-12-28 10:49 | XMS_ITS | Encounter Summary ---
Author Organization [employer] Address 75 [facility] 7t [place] [address] Care Team Providers Care Critical Care Paramedic Name Role Phone Carlo Santana MD Primary Care Provider [phone] Reason for Visit * Reason Onset Date Comments Med Refill 03/01/2023 Encounter Details Date Type Department Care Team ([facility] st Contact Info) Description 03/01/[address] [facility] MEDICINE [address] [place] [address] Carlo Santana MD [address] [facility] [address] [place], [place] [phone] Med Refill Social History Tobacco Use Types [...] on oxyCODONE-acetaminophen (Percocet) 5-325 MG tablet [facility]/pharmacy #[id number] LEATHA PHILLIPS - [address] [facility] documented in this encounter Plan of Treatment Upcoming Encounters Date Type Department Care Team (Late st Contact Info) Description 01/02/2025 2:15 PM EDT Clinical Support [facility] CHC MED & PEDS 505 [place] [address] Fariba Gandhi, HUGO 505 [place] [address] documented as of this encounter Visit Diagnoses Not on filedocumented in this encounter Additional Health Concerns Assessment Noted Time PHQ-9 Depression Total Score: 3 06/04/19 23 3:42 PM EDT documented as of this encounter Care Teams Critical Care Paramedic Relationship Specialty Start Date End Date Carlo Santana MD 505 [place] [address] PCP - General Internal Medicine 12/28/17 documented as of this encounter
--- OUTSIDE RECORDS SUMMARY | 2024-12-28 10:49 | XMS_ITS | Encounter Summary ---
Author Organization [employer] Address [address] [facility] 7t [place] [address] Care Team Providers Care Global Human Resources Director Name Role Phone Carlo Santana MD Primary Care Provider [phone] Reason for Visit * Reason Onset Date Comments Appointment Request 09/16/2023 Encounter Details Date Type Department Care Team ([facility] Contact Info) Description 09/16/2023 Telephone [facility] CHC MED & PEDS [address] [place] [address] Carlo Santana MD [address] [place] [address] Appointment Request Social History Tobacco Use Types [...] requesting telehealth with PCP to discuss medication. Process Planner attempted to schedule for November but pt declined and stated would like a sooner appointment. Denied triage. Contact pt at [phone] documented in this encounter Plan of Treatment Upcoming Encounters Date Type Department Care Team (Late st Contact Info) Description 01/02/2025 2:15 PM EDT Clinical Support [facility] CH[facility] MED & PEDS [address] [place] [address] Fariba Gandhi, HUGO [address] [place] [address] documented as of this encounter Visit Diagnoses Not on filedocumented in this encounter Additional Health Concerns Assessment Noted Time PHQ-9 Depression Total Score: 3 06/04/19 23 3:42 PM EDT documented as of this encounter Care Teams Global Human Resources Director Relationship Specialty Start Date End Date Carlo Santana MD [address] [place] [address] PCP - General Internal Medicine 12/28/17 documented as of this encounter
--- OUTSIDE RECORDS SUMMARY | 2024-12-28 10:49 | XMS_ITS | Encounter Summary ---
Author Organization [employer] Address [address] [facility] [address] 7[address] [place] [address] Care Team Providers Care Salesperson Recreational Vehicles Name Role Phone Carlo Santana MD Primary Care Provider [phone] Reason for Visit * Reason Onset Date Comments Med Refill 02/28/2024 Medication Question 02/28/2024 Encounter Details Date Type Department Care Team ([facility] st Contact Info) Description 02/28/2024 Telephone [facility] MEDICINE [address] [place] [address] Carlo Santana MD [address] [facility] [address] [place], [place] [phone] Med Refill; Medication Question Social History Tobacco [...] tablet If any questions contact pt at [phone] documented in this encounter Plan of Treatment Upcoming Encounters Date Type Department Care Team ([facility] st Contact Info) Description 01/02/2025 2:15 PM EDT Clinical Support [facility] CHC MED & PEDS [address] [place] [address] Fariba Gandhi, HUGO [address] [place] [address] documented as of this encounter Visit Diagnoses Not on filedocumented in this encounter Additional Health Concerns Assessment Noted Time PHQ-9 Depression Total Score: 15 024 11:50 AM EST documented as of this encounter Care Teams Salesperson Recreational Vehicles Relationship Specialty Start Date End Date Carlo Santana MD [address] [place] [address] PCP - General Internal Medicine 12/28/17 documented as of this encounter
--- OUTSIDE RECORDS SUMMARY | 2024-12-28 10:49 | XMS_ITS | Encounter Summary ---
Author Organization [employer] Address [address] [facility] 7[address] [place] [address] Care Team Providers Care Fruit Vendor Name Role Phone Carlo Santana MD Primary Care Provider [phone] Reason for Visit * Reason Onset Date Comments Prior Authorization 09/14/2023 Encounter Details Date Type Department Care Team ([facility] Contact Info) Description 09/14/2023 Telephone [facility] CHC MED & PEDS [address] [place] [address] Carlo Santana MD [address] [place] [address] Prior Authorization Social History Tobacco Use Types [...] 01/02/2025 2:15 PM EDT Clinical Support [facility] CHC MED & PEDS [address] [place] [address] Fariba Gandhi, HUGO [address] [place] [address] documented as of this encounter Visit Diagnoses Diagnosis Chronic left-sided low back pain with left-sided sciatica documented in this encounter Additional Health Concerns Assessment Noted Time PHQ-9 Depression Total Score: 3 06/04/19 23 3:42 PM EDT documented as of this encounter Care Teams Fruit Vendor Relationship Specialty Start Date End Date Carlo Santana MD [address] [place] [address] PCP - General Internal Medicine 12/28/17 documented as of this encounter
--- OUTSIDE RECORDS SUMMARY | 2024-12-28 10:49 | XMS_ITS | Encounter Summary ---
Author Organization [employer] Address [address] [place] [address] 7 [place] [address] Care Team Providers Care Principal Technologist Name Role Phone Carlo Santana MD Primary Care Provider [phone] Encounter Details Date Type Department Care Team (Latest Contact Info) Description 04/18/2018 Abstract [facility] CONVERSIONS Dental, Provider, DDS Social [...] Description 01/02/2025 2:15 PM EDT Clinical Support [facility] CHC MED & PEDS [address] [place] [address] Fariba Gandhi, HUGO [address] [place] [address] documented as of this encounter Visit Diagnoses Not on filedocumented in this encounter Care Teams Principal Technologist Relationship Specialty Start Date End Date Carlo Santana MD [address] [place] [address] PCP - General Internal Medicine 12/28/17 documented as of this encounter
--- OUTSIDE RECORDS SUMMARY | 2024-12-28 10:49 | XMS_ITS | Encounter Summary ---
Author Organization [employer] Address [address] [facility] 7t [place] [address] Care Team Providers Care Printed Circuit Board Panels Trimmer Name Role Phone Carlo Santana MD Primary Care Provider [phone] Reason for Visit * Reason Onset Date Comments Med Refill 10/18/2023 Encounter Details Date Type Department Care Team (Late st Contact Info) Description 10/18/2023 Telephone [facility] [address] [place] [address] Carlo Santana MD [address] [place], [place] [phone] Med Refill Social History Tobacco Use Types [facility] [address] [place] [address] Fariba Gandhi, HUGO [address] [place] [address] documented as of this encounter Visit Diagnoses Not on filedocumented in this encounter Additional Health Concerns Assessment Noted Time PHQ-9 Depression Total Score: 3 06/04/19 23 3:42 PM EDT documented as of this encounter Care Teams Printed Circuit Board Panels Trimmer Relationship Specialty Start Date End Date Carlo Santana MD [address] [place] [address] PCP - General Internal Medicine 12/28/17 documented as of this encounter
--- OUTSIDE RECORDS SUMMARY | 2024-12-28 10:49 | XMS_ITS | Encounter Summary ---
Author Organization [employer] Address [address] [facility] 7[address] [place] [address] Care Team Providers Care Spiral Tube Winder Name Role Phone Carlo Santana MD Primary Care Provider [phone] Encounter Details Date Type Department Care Team ([facility] st Contact Info) Description 05/02/2023 Orders Only [facility] CHC MED & PEDS [address] [place], [place] [phone] Carlo Santana MD [address] [place], [place] [phone] New daily persistent headache (Primary Dx) Social [...] 01/02/2025 2:15 PM EDT Clinical Support [facility] CHC MED & PEDS [address] [place] [address] Fariba Gandhi RN [address] [place] [address] documented as of this encounter Procedures Procedure [...] PM EST Narrative 05/23/2023 11:39 AM EDT [facility] [address] [place] [address] Magnetic Resonance Report Signed Patient: Peri Sandy MR#: [id number] 338 : 1980 Acct:[id number] Age/Sex: 42 / F ADM Date: 05/18/23 Loc: HO.MRI Attending Dr: Karl VICTOR Ordering Physician: Karl Meade Date of Service: 05/18/23 Procedure(s): MR lumbar spine wo con Accession Number(s): [id number] cc: Carlo Santana MD; Karl Meade EXAMINATION: [...] interval compression fractures. DISC SPACES AND ENDPLATES: Qlwqobxe-ku-eujfpx intervertebral disc space height loss asymmetric to the left at L4-L5 with disc desiccation stable in appearance. Tcxj-wx-ukvitumc disc volume loss at L3-L4 asymmetric to the left, slightly progressed from previous exam with a stable small Schmorl's node along the superior endplate of L4 on the left. Minor spondylosis is unchanged. Mild disc volume loss at L2-L3 with disc desiccation is stable. Jyvusief-eg-gesbie intervertebral disc space height loss asymmetric to [...] previous study. No significant central canal stenosis. Ftlv-jx-asmzwrwr bilateral facet joint arthropathy is stable with [...] the exam. Within the pelvis on the hydraulic modeling engineer view, there is a 5.5 cm cystic structure in the expected location of the right adnexa, similar in appearance to the previous study, based on evaluation of the hydraulic modeling engineer view. MR/MR lumbar spine wo con IMPRESSION: [...] nerve roots bilaterally progressed from previous study. 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 As noted on the previous study, this likely reflects a physiologic right ovarian cyst but is not definitely characterized as simple-appearing based on this study and therefore follow up ultrasound may be indicated. Dictated By: JOVANY BARROS MD Signed By: <Electronically signed by JOVANY BARROS MD in OV> 05/23/23 1135 DD/ 06 TD/TT: Poultry Process Worker: Procedure Note Donotuseinterpreter, Image - 05/23/[address] [address] Magnetic Resonance Report Signed Patient: Peri Sandy [facility]#: [id number] 338 : 1980Acct:[id number] Age/Sex: 42 / FADM Date: 05/18/23 Loc: HO.MRI Attending Dr: Karl VICTOR Ordering Physician: Karl Meade Date of Service: 05/18/23 Procedure(s): MR lumbar spine wo con Accession Number(s): [id number] cc: Carlo Santana MD; Karl Meade EXAMINATION: [...] interval compression fractures. DISC SPACES AND ENDPLATES: Yogfqfbn-tc-ullsca intervertebral disc space height loss asymmetric to the left at L4-L5 with disc desiccation stable in appearance. Bzxu-sb-gvutlveh disc volume loss at L3-L4 asymmetric to the left, slightly progressed from previous exam with a stable small Schmorl's node along the superior endplate of L4 on the left. Minor spondylosis is unchanged. Mild disc volume loss at L2-L3 with disc desiccation is stable. Atjxkyee-il-fpsijj intervertebral disc space height loss asymmetric to [...] previous study. No significant central canal stenosis. Jwpk-nd-qlgreplq bilateral facet joint arthropathy is stable with [...] the exam. Within the pelvis on the hydraulic modeling engineer view, there is a 5.5 cm cystic structure in the expected location of the right adnexa, similar in appearance to the previous study, based on evaluation of the hydraulic modeling engineer view. MR/MR lumbar spine wo con IMPRESSION: [...] nerve roots bilaterally progressed from previous study. 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 As noted on the previous study, this likely reflects a physiologic right ovarian cyst but is not definitely characterized as simple-appearing based on this study and therefore follow up ultrasound may be indicated. Dictated By: JOVANY BARROS MD Signed By: <Electronically signed by JOVANY BARROS MD in OV> 05/23/23 1135 DD/ 06 TD/TT: Poultry Process Worker: us [facility] External Provider IMG MRI PROCEDURES Final Result * US RETROPERITONEAL LIMITED (05/17/2023 3:44 PM EST) Anatomical Region Laterality Modality Abdomen Ultrasound 05/17/2023 3:44 PM EST Narrative 05/19/2023 7:57 PM EST [address] [address] Ultrasound Report Signed Patient: Peri Sandy MR#: [id number] 338 : 1980 Acct:[id number] Age/Sex: 42 / F ADM Date: 05/17/23 Loc: HO.US Attending Dr: Luis Manuel Singh MD Ordering Physician: Luis Manuel Singh MD Date of Service: 05/17/23 Procedure(s): US retroperitoneal limited Accession Number(s): [id number] cc: Luis Manuel Singh MD; Carlo Santana [...] MD in OV> 05/19/231952 DD/ 43 TD/TT: Poultry Process Worker: Procedure Note Wilfredo, Image - 05/19/2023 [place] [address] Ultrasound Report Signed Patient: Peri Sandy [facility]#: [id number] 338 : 1980Acct:[id number] Age/Sex: 42 / FADM Date: 05/17/23 Loc: HO.US Attending Dr: Luis Manuel Singh MD Ordering Physician: Luis Manuel Singh MD Date of Service: 05/17/23 Procedure(s): US retroperitoneal limited Accession Number(s): [id number] cc: Luis Manuel Singh MD; Carlo Santana [...] MD in OV> 05/19/231952 DD/ 43 TD/TT: Poultry Process Worker: us [facility] External Provider IMG US PROCEDURES Final Result documented in this encounter Visit Diagnoses Diagnosis New daily persistent headache- Primary documented in this encounter Additional Health Concerns Assessment Noted Time PHQ-9 Depression Total Score: 3 06/04/19 23 3:42 PM EDT documented as of this encounter Care Teams Spiral Tube Winder Relationship Specialty Start Date End Date Carlo Santana MD [address] [place] [address] PCP - General Internal Medicine 12/28/17 documented as of this encounter
--- OUTSIDE RECORDS SUMMARY | 2024-12-28 10:49 | XMS_ITS | Clinical Summary ---
Author Organization [employer] Address [address] [facility] [address] [place] [address] Care Team Providers Care Blood Bank Booking Clerk Name Role Phone Carlo Santana MD Primary Care Provider [phone] Allergies No known active allergies Medications * This document contains information received from the source organization and may not represent a complete record from that organization. naloxone (Narcan) 4 mg/0.1 mL nasal spray Administer 0.1 mL into affected nostril(s). [place] 0.1 milliliter by intranasal route in 1 nostril may repeat dose every 2-3 minutes as needed alternating nostrils with each dose 11/12/19 22 Active spironolactone (Aldactone) 50 MG tablet Take 1 tablet by mouth 1 (one) time each day. Active amLODIPine (Norvasc) 5 MG tablet TAKE 1 TABLET BY MOUTH EVERY MORNING 90 tablet 2 07/01/19 24 Active oxybutynin XL (Ditropan-XL) 5 MG [...] ions:Bipolar affective disorder, remission status unspecified (CMS/HCC) ([facility]) TAKE 1 CAPSULE BY MOUTH EVERY 8 [...] ions:Bipolar affective disorder, remission status unspecified (CMS/HCC) ([facility]) Take 1 capsule (80 mg) by mouth [...] DAY 90 tablet 1 12/04/19 25 Active oxyCODONE (Roxicodone) 10 MG immediate release tabletIndicati ons:Chronic left-sided low back pain with left-sided sciatica Take 1 tablet (10 mg) by mouth every 8 (eight) hours if needed for severe pain for up to 28 days. Do not start before December 19, 2024. 84 tablet 12/20/19 25 025 Active cetirizine (ZyrTEC) 10 MG tabletIndicati ons:Seasonal allergies Take 1 tablet (10 mg) by mouth in the morning. 90 tablet 3 12/20/19 25 Active celecoxib (CeleBREX) 200 MG capsuleIndicat ions:Chronic left shoulder pain,Muscle spasm TAKE 1 CAPSULE BY MOUTH IN THE MORNING AND AT BEDTIME NEEDED FOR MODERATE PAIN 60 capsule 12/26/19 25 Active cetirizine (ZyrTEC) 10 MG tabletIndicati ons:Seasonal allergies TAKE 1 TABLET BY MOUTH EVERY DAY IN THE MORNING 90 tablet 3 07/07/19 24 025 Discontinued(R eorder (will not trigger [...] BY MOUTH EVERY DAY 90 tablet 09/19/19 25 025 Discontinued(R eorder (will not trigger [...] FOR MODERATE PAIN 60 capsule 12/04/19 25 025 Discontinued(R eorder (will not trigger [...] the last 15 years. Now engaged with [facility] for OP, and waiting to be connected with psych provider. Severe anxiety is interfering with daily activities and affecting her interpersonal relationships. PLAN: (check all that apply) Continue with current services (defined as services in the past 12 months) Behavioral Health Integration Plan Patient Self Plan Patient to utilize skills provided in intervention , Patient [facility] as [facility], Patient to engage in OP therapy , and Patient to reach out to [facility] as needed. Pt reports being connected with [facility] for individual therapy. She completed third OP session and was added to wait list for psych provider within [facility]. Mixed stress and urge urinary [...] the last 15 years. Now engaged with [facility] for OP, and waiting to be connected with psych provider. Severe anxiety is interfering with daily activities and affecting her interpersonal relationships. PLAN: (check all that apply) Continue with current services (defined as services in the past 12 months) Behavioral Health Integration Plan Patient Self Plan Patient to utilize skills provided in intervention , Patient to [facility] to [facility] team as needed, Patient to engage in OP therapy , and Patient to reach out to [facility] as needed. Pt reports being connected with [facility] for individual therapy. She completed third OP session and was added to wait list for psych provider within [facility]. Obesity with body mass index [...] Encounters Date Type Department Care Team Description 12/25/[address] [facility] [address] [place] [phone] Carlo Santana MD Chronic left shoulder pain; Muscle spasm 12/20/[address] [facility] [address] [place] [phone] Carlo Santana MD No Show 12/19/2024 Telephone [facility] [address] [place] [address] Carlo Santana MD Chart Prep 12/19/[address] [facility] [address] [place] [phone] Carlo Santana MD Med Refill 12/17/2024 Telephone [facility] [address] [place] [address] Carlo Santana MD 12/14/2024 Orders Only [facility] [address] [place] [address] Carlo Santana MD Chronic left-sided low back pain with left-sided sciatica (Primary Dx) 12/14/[address] [facility] [address] [place] [phone] Carlo Santana MD Nurse Triage 12/14/2024 Refill [facility] [address] [place] [address] Oneal Liu MD 12/13/2024 Results Follow-Up [facility] [address] [place] [phone] Lupe Loyola RN Comprehensive Metabolic Panel, Magnesium, TSH W/Reflex to FT4, Vitamin B12/Folate, Serum Panel 12/13/2024 Telephone [facility] [address] [place] [address] Carlo Santana MD Results 12/13/2024 Telephone [facility] [address] [place] [address] Carlo Santana MD Referral 12/12/2024 Orders Only GENERIC EXTERNAL DATA DEPARTMENT Provider, Generic External Data 12/06/[address] [address] Carlo Santana MD Med Refill 12/06/[address] [facility] [address] [place] [address] Carlo Santana MD Med Refill 12/04/[address] [address] Carlo Santana MD 12/03/2024 Refill [facility] [address] [place] [address] Carlo Santana MD Chronic left-sided low back pain with left-sided sciatica 12/03/2024 Refill [facility] [address] [place] [address] Carlo Santana MD Laceration of nose without foreign body, initial encounter; Chronic left shoulder pain; Muscle spasm 11/22/[address] [facility] [address] [place] [address] Carlo Santana MD 11/21/2024 Orders Only [facility] [address] [place] [address] Carlo Santana MD Daily headache (Primary Dx) 11/21/2024 Telephone [facility] [address] [place] [address] Carlo Santana MD MRI BRAIN ORDER 11/20/2024 11:15 AM EDT Office Visit [facility] [address] [place] [address] Carlo Santana MD Daily headache (Primary Dx); Paresthesia; Anxiety; Chronic left-sided low back pain with left-sided sciatica; Seborrheic dermatitis 11/20/2024 Travel 11/19/2024 Telephone [facility] [address] [place] [address] Carlo Santana MD Chart Prep 11/19/2024 Telephone [facility] [address] [place] [address] Carlo aSntana MD Medication Question 11/19/2024 Telephone [facility] [address] [place] [address] Carlo Santana MD Med Refill 11/16/[address] [facility] [address] [place] [address] Carlo Santana MD Chronic left-sided low back pain with left-sided sciatica 11/13/2024 Refill [facility] [address] [place] [address] Carlo Santana MD Chronic left-sided low back pain with left-sided sciatica 11/13/2024 Telephone [facility] [address] [place] [address] Carlo Santana MD Med Refill 11/13/2024 Refill [facility] [address] [place] [address] Carlo Santana MD VALENTINA (generalized anxiety disorder) 11/11/2024 Refill [facility] [address], [place] [phone] Carlo Santana MD Chronic left shoulder pain; Muscle spasm 11/09/2024 Refill [facility] [address], [place] [phone] Carlo Santana MD Chronic left shoulder pain; Muscle spasm; Chronic left-sided low back pain with left-sided sciatica 11/07/2024 Telephone [facility] [address] [place] [address] Carlo Santana MD Med Refill 11/07/[address] [address] Carlo Santana MD FYI 11/06/[address] [address] Carlo Santana MD Chronic left-sided low back pain with left-sided sciatica 11/02/2024 Refill [facility] [address] [place] [address] Carlo Santana MD Hypoproteinemia (CMS/HCC) 10/30/2024 Telephone [facility] [address], [place] [phone] Carlo Santana MD Medication Question 10/30/2024 Telephone [facility] [address], [place] [phone] Carlo Santana MD Med Refill 10/30/2024 Refill [facility] [address] [place] [address] Carlo Santana MD SOB (shortness of breath); Chronic left-sided low back pain with left-sided sciatica 10/29/[address] [facility] [address] [place] [address] Carlo Santana MD Med Refill 10/26/2024 Orders Only [facility] [address], [place] [phone] Carlo Santana MD Chronic left-sided low back pain with left-sided sciatica 10/26/[address] [facility] [address] [place] [address] Carlo Santana MD Chronic left-sided low back pain with left-sided sciatica 10/26/[address] [address] Carlo Santana MD Nurse Triage 10/26/[address] [address] Carlo Santana MD Med Refill 10/25/[address] [address] Carlo Santana MD Medication Question 10/25/[address] [address] Carlo Santana MD Bipolar affective disorder, remission status unspecified (CMS/HCC) 10/25/[address] [address] Carlo Santana MD Med Refill 10/25/2024 Refill [facility] [address] [place] [address] Carlo Santana MD Bipolar affective disorder, remission status unspecified ([facility]); Chronic left-sided low back pain with left-sided sciatica 10/23/2024 [facility] [address] [place] [address] Carlo Santana MD Medication Question 10/23/2024 Refill [facility] [address], [place] [phone] Carlo Santana MD SOB (shortness of breath) 10/23/2024 Refill [facility] [address], [place] [phone] Carlo Santana MD Chronic left shoulder pain; Rib pain; Chronic left-sided low back pain with left-sided sciatica; Neck pain 10/22/2024 Telephone [facility] [address] [place] [address] Carlo Santana MD no show 10/22/2024 Telephone [facility] [address] [place] [address] Carlo Santnaa MD Referral 10/22/2024 Refill [facility] [address], [place] [phone] Carlo Santana MD Chronic left-sided low back pain with left-sided sciatica 10/22/2024 Refill [facility] [address], [place] [phone] Carlo Santana MD 10/19/2024 Refill [facility] [address], [place] [phone] Carlo Santana MD Chronic left-sided low back pain with left-sided sciatica 10/18/[address] [facility] [address] [place] [address] Carlo Santana MD Nurse Triage 10/18/[address] [facility] [address] [place] [address] Carlo Santana MD Med Refill 10/15/2024 Telephone [facility] [address] [place] [address] Carlo Santana MD Med Refill 10/15/2024 Refill [facility] [address] [place] [address] Oneal Liu MD Chronic left shoulder pain; Muscle spasm; Chronic left-sided low back pain with left-sided sciatica 10/11/2024 Refill [facility] [address] [place] [address] Carlo Santana MD Bipolar affective disorder, remission status unspecified ([facility]) 10/11/2024 Refill [facility] [address] [place] [address] Carlo Santana MD VALENTINA (generalized anxiety disorder) 10/08/2024 10:30 AM EDT Telemedicine [facility] [address] [place] [address] Fariba Gandhi RN Chronic right-sided low back pain with right-sided sciatica 10/08/2024 Refill [facility] [address] [place] [address] Fariba Gandhi RN Chronic left-sided low back pain with left-sided sciatica 10/08/2024 Travel 10/04/[address] [facility] [address] [place] [address] Carlo Santana MD Medication Question 10/03/2024 3:40 PM EDT Office Visit [facility] [address] [place] [address] Nataly Choe MD Severe low back pain (Primary Dx) 10/03/2024 Travel 10/03/2024 Telephone [facility] [address] [place] [address] Carlo Santana MD Nurse Triage 09/28/2024 Orders Only [facility] [address] [place] [address] Carlo Santana MD 09/28/[address] [facility] [address] [place] [address] Kai Zhang MD Chronic left-sided low back pain with left-sided sciatica 09/28/2024 Telephone [facility] [address] [place] [address] Carlo Santana MD Med Refill 09/27/[address] [address] Carlo Santana MD Med Refill from Last 3 Months Immunizations Immunization Administration [...] [facility] [address] [place] [address] Fariba Gandhi, RN [address] [place] [address] Health Maintenance Due Date Last Done Comments [...] topic Meningococcal Vaccine Aged Out No marlo regien eligible based on patient's age to complete [...] Procedure Name Priority Date/Time Associated Diagnosis Comments HEMOGLOBIN A1C Routine 12/28/2024 9:56 AM EDT Elevated glucose T-SPOT(R).TB Routine 12/12/2024 11:07 AM EDT VITAMIN B12/FOLATE, SERUM PANEL Routine 12/12/2024 11:07 AM EDT Daily headache Paresthesia TSH W/REFLEX TO FT4 Routine 12/12/2024 1 1:07 AM EDT Daily headache Paresthesia MAGNESIUM Routine 12/12/2024 11:07 AM EDT Daily headache Paresthesia COMPREHENSIVE METABOLIC PANEL Routine 12/12/2024 11:07 AM EDT Daily headache Paresthesia HEPATIC FUNCTION PANEL Routine 11:07 AM EDT Chronic right shoulder pain CBC WITH AUTO DIFFERENTIAL Routine 12/12/2024 11:07 AM EDT Chronic right shoulder pain HEPATITIS PANEL, GENERAL Routine 08/16/2024 11:35 AM [...] Recently Relevant to Health Maintenance Results * Hemoglobin A1c (12/28/2024 9:56 AM EDT) Hemoglobin A1c 5.1 <6.0 % [facility] Comment:Hemoglobin A1C Refer ence Range Adults: 4.8 - 6.0 % Non diabetic: < 6.0 % Goal: < 7.0 %Additional Action Suggested: > 8.0 %Note: Hemoglobin A1c results are invalid for patients with abnormal amounts of HbF. Blood transfusions may impact the HbA1c concentration in the patient sample. Estimated Average Glucose 100 mg/dL [facility] Comment:eAG = Estimated ave rage glucose which is %A1C expressed asaverage glucose, using the formula of the Q1Q-OcjhkwuKibaphx Glucose study (ADAG), Diabetes Care, Vol.31,#8,Oct. 2007 Blood Venous blood specimen / Unknown 12/28/2024 9:56 AM EDT 12/28/2024 9:56 AM EDT us Carlo Santana MD LAB BLOOD ORDERABLES Final Result Performing Organization Address [facility]/ZIP Co de Phone Number [facility] [address] [place] [address] [phone] * Vitamin B12/Folate, Serum Panel (12/12/2024 11:07 AM EDT) [facility] Vitamin B12 666 200 - 900 pg/mL [facility] Comment:NORMAL 200-900 PG/ML INDETERMINATE 160-199 PG/ML DEFICIENT < 160 PG/ML Folate 8.1 > or = 4.0 ng/mL [facility] Comment:Reference Values:> o r = 4.0 ng/mL< 4.0 ng/mL suggests folate deficiency Methotrexate, aminopterin and folinic acid(leucovorin) are chemotherapeutic agents whose molecularstructures are similar to folate; therefore, the Architectfolate assay cannot be used for patients using these drugs. Blood Venous blood specimen / Unknown 12/12/2024 11:07 AM EDT 12/12/2024 1:58 PM EDT us Carlo Santana MD LAB BLOOD ORDERABLES Final Result Performing Organization Address [facility] Co de Phone Number [facility] [address] [place] [address] [phone] * T-SPOT??.TB (12/12/2024 11:07 AM EDT) Pathologist [facility] T Spot TB Negative Negative [facility] Comment:A negative test resu lt does [...] as aquantitative test. TS PANEL A 0 [facility] TS PANEL B 1 [facility] Negative Control Passed [facility] Positive Control Passed [facility] Comment:For additional infor matpaulie, please refer tohttp://education.Like.com/faq/DLY258(This link is being provided for informational/educational purposes only.)THIS TEST WAS PERFORMED AT:[id number] [place] [id number] KOENIG MD,PHD 12/12/2024 11:0 7 AM EDT 12/12/2024 1:58 PM EDT us Generic External Data Provider LAB BLOOD ORDERAB LES Final Result Performing Organization Address [facility]/ZIP Co de Phone Number [facility] [address] [place] [phone] * TSH W/Reflex to FT4 (12/12/2024 11:07 AM EDT) TSH reflex Free T4 1.76 0.32 - 4.0 uIU/mL [facility] Blood Venous blood specimen / Unknown 12/12/2024 11:07 AM EDT 12/12/2024 1:58 PM EDT us Carlo Santana MD LAB BLOOD ORDERABLES Final Result Performing Organization Address City/[facility]/ZIP Co de Phone Number [facility] [address] [place] [address] [phone] * (ABNORMAL) CBC auto differential (12/12/2024 11:07 AM EDT) White Blood Count 7.3 4.8 - 10.8 X10*3/uL [facility] Red Blood Count 3.80(L) 4.20 - 5.50 X10*6/uL [facility] Hemoglobin 12.4 12.0 - 16.0 g/dl [facility] Hematocrit 37.2 37.0 - 47.0 % [facility] Mean Corpuscular Volume 97.9 80.0 - 98.0 fL [facility] Mean Corpuscular Hemoglobin 32.6 27.0 - 33.0 pg [facility] Mean Corpuscular HGB Conc 33.3 31.0 - 35.0 g/dl [facility] Red Cell Distribution Width 14.4 11.0 - 16.0 % [facility] Platelet Count 338 160 - 400 X10*3/uL [facility] Mean Platelet Volume 10.0 9.4 - 12.3 fL [facility] Neutrophils Percent Auto 69.4 45 - 73 % [facility] Imm Gran Pct Auto 0.3 0.0 - 0.4 % [facility] Lymphocytes Percent Auto 22.3 20 - 40 % [facility] Monocytes Percent Auto 4.2 2 - 11 % [facility] Eosinophils Percent Auto 3.0 0 - 4 % [facility] Basophils Percent Auto 0.8 0 - 2 % [facility] NRBC Pct Auto 0.0 0.0 - 0.2 /100WBC [facility] Neutrophils Absolute Auto 5.1 2.0 - 8.3 x10*3/uL [facility] Imm Gran Abs Auto 0.02 0.00 - 0.03 X10*3/uL [facility] Lymphocytes Absolute Auto 1.6 1.2 - 4.9 X10*3/uL [facility] Monocytes Absolute Auto 0.3 0.1 - 1.2 X10*3/uL [facility] Eosinophils Absolute Auto 0.2 0.0 - 0.4 X10*3/uL [facility] Basophils Absolute Auto 0.1 0.0 - 0.2 X10*3/uL [facility] NRBC Abs Auto 0.000 0.0 - 0.012 X10*3/uL [facility] Blood Venous blood specimen / Unknown 12/12/2024 11:07 AM EDT 12/12/2024 1:58 PM EDT us Carlo Santana MD LAB BLOOD ORDERABLES Final Result Performing Organization Address City/[facility]/ZIP Co de Phone Number [facility] [address] [place] [phone] * Magnesium (12/12/2024 11:07 AM EDT) Magnesium 2.1 1.6 - 2.6 mg/dL [facility] Blood Venous blood specimen / Unknown 12/12/2024 11:07 AM EDT 12/12/2024 1:58 PM EDT us Carlo Santana MD LAB BLOOD ORDERABLES Final Result Performing Organization Address [facility] Co de Phone Number [facility] [address] [place] [phone] * Hepatic Function Panel (12/12/2024 11:07 AM EDT) Bilirubin, Direct 0.2 0.0 - 0.5 mg/dL [facility] Blood Venous blood specimen / Unknown 12/12/2024 11:07 AM EDT 12/12/2024 1:58 PM EDT us Carlo Santana MD LAB BLOOD ORDERABLES Final Result Performing Organization Address [facility] Co de Phone Number [facility] [address] [place] [phone] * (ABNORMAL) Comprehensive Metabolic Panel (12/12/2024 11:07 AM EDT) Pathologist [facility] Sodium 141 135 - 145 mmol/L [facility] Potassium 4.0 3.3 - 5.1 mmol/L [facility] Chloride 108 96 - 108 mmol/L [facility] Carbon Dioxide 27 22 - 29 mmol/L [facility] Anion Gap 10(L) 12 - 20 [facility] Urea Nitrogen (BUN) 12 9 - 16 mg/dL [facility] Creatinine, Serum 0.66 0.5 - 1.4 mg/dL [facility] Estimated Glomerular Filt Rate >60 [facility] Comment:Chronic Kidney Disea se: Estimated GFR < 60 mL/min/1.51o7Hndnva Kidney Disease: Estimated GFR < 15 mL/min/1.73m2 Glucose 128(H) 60 - 115 mg/dL [facility] Calcium 8.8 8.4 - 10.2 mg/dL [facility] Bilirubin, Total 0.4 0.0 - 1.0 mg/dL [facility] Aspartate Amino Transferase 34(H) 5 - 31 U/L [facility] Alanine Aminotransferase 51(H) 0 - 31 U/L [facility] Total Protein 6.8 6.5 - 8.0 g/dL [facility] Albumin Level 4.4 3.5 - 5.0 g/dL [facility] Alkaline Phosphatase 63 39 - 117 U/L [facility] Blood Venous blood specimen / Unknown 12/12/2024 11:07 AM EDT 12/12/2024 1:58 PM EDT us Carlo Santana MD LAB BLOOD ORDERABLES Final Result [facility] [address] [place] [phone] * Hepatitis A,B,C Profile (08/16/2024 11:35 AM EDT) Hepatitis A IgM Nonreactive Nonreactive [facility] Comment:IgM antibodies to OLIVA V not detected; does not exclude earlyacute or recovered HAV infection. ~Hepatitis B Surface Antibody REACTIVE Nonreactive [facility] Comment:REACTIVE: > 11.99 mI U/mL Hepatitis B Core Antibody Nonreactive Nonreactive [facility] Hepatitis C Antibody Nonreactive Nonreactive [facility] Comment:Antibodies to HCV no t detected; does not exclude early acuteHCV infection. Hepatitis B Surface Ag Negative Negative [facility] Blood Venous blood specimen / Unknown 08/16/2024 11:35 AM EDT 08/16/2024 11:35 AM EDT us Carlo Santana MD LAB BLOOD ORDERABLES Final Result [facility] [address] [place] [phone] * HIV-1/2 Antigen and Antibodies, Fourth Generation, with Reflexes (01/26/2024 11:58 AM EST) Pathologist [facility] HIV AB/AG Nonreactive Nonreactive [facility] Comment:HIV-1 p24 Ag and/or HIV-1/HIV-2 Ab not detected.A test result that is nonreactive does not exclude thepossibility of exposure to or infection with HIV-1 and/orHIV-2. Nonreactive results in this assay for individualswith prior exposure to HIV-1 and/or HIV-2 may be due toantigen and antibody levels that are below the limit ofdetection of this assay.The [employer] HIV Ag/Ab Combo assay result andsupplemental assay results should be interpreted inconjunction with the patient's clinical presentation,history and other laboratory results. If the results areinconsistent with clinical evidence, additional testing issuggested to confirm the result. Blood Venous blood specimen / Unknown 01/26/2024 11:58 AM EST 01/26/2024 2:10 PM EST us Carlo Santana MD LAB BLOOD ORDERABLES Final Result [facility] [address] [place] [address] [phone] * Pap Smear (02/11/2021) Pap Negative for intraephithelial lesion or malignancy Negative for intraephithelial lesion or malignancy, Other HPV Undetected Undetected, Indeterminate, Quantitative, Not Detected us Historical Provider HEALTH MAINTENANCE Final Result from Last 3 Months or Most Recently Relevant to Health Maintenance Insurance [facility] C3 DENT[facility] MEDICAID STAND ADULT Care Teams Blood Bank Booking Clerk Relationship Specialty Start Date End Date Carlo Santana MD [address] [place] [address] LEATHA Phillips [address] PCP - General Internal Medicine 12/28/17
--- OUTSIDE RECORDS SUMMARY | 2024-12-28 10:49 | XMS_ITS | Encounter Summary ---
Author Organization [employer] Address [address] [facility] 7t [place] [address] Care Team Providers Care Gusset Edger Name Role Phone Carlo Santana MD Primary Care Provider [phone] Reason for Visit * Reason Onset Date Comments Med Refill 02/20/2024 Encounter Details Date Type Department Care Team ([facility] st Contact Info) Description 02/20/2024 Telephone [facility] MEDICINE [address] [place] [address] Carlo Santana MD 505 [place], [place] [phone] Med Refill Social History Tobacco Use Types [...] (1000 UT) capsule To be sent to: [facility]/pharmacy #[id number] LEATHA PHILLIPS - [address] [facility] documented in this encounter Plan of Treatment Upcoming Encounters Date Type Department Care Team ([facility] st Contact Info) Description 01/02/2025 2:15 PM EDT Clinical Support [facility] MED & PEDS 505 [place] [address] Fariba Gandhi RN [address] [place] [address] documented as of this encounter Visit Diagnoses Not on filedocumented in this encounter Additional Health Concerns Assessment Noted Time PHQ-9 Depression Total Score: 15 024 11:50 AM EST documented as of this encounter Care Teams Gusset Edger Relationship Specialty Start Date End Date Carlo Santana MD 505 [place] [address] PCP - General Internal Medicine 12/28/17 documented as of this encounter
--- OUTSIDE RECORDS SUMMARY | 2024-12-28 10:49 | XMS_ITS | Encounter Summary ---
Author Organization [employer] Address [address] [facility] [address] 7t [place] [address] Care Team Providers Care Order Management Specialist Name Role Phone Carlo Santana MD Primary Care Provider [phone] Reason for Visit * Reason Onset Date Comments Appointment Request 09/20/2023 Encounter Details Date Type Department Care Team ([facility] st Contact Info) Description 09/20/2023 Telephone [facility] MEDICINE 230 [place] [address] Carlo Santana MD 505 [place], [place] [phone] Appointment Request Social History Tobacco Use Types [...] 2:15 PM EDT Clinical Support [facility] MED & PEDS 505 [place] [address] Fariba Gandhi, HUGO 505 [place] [address] documented as of this encounter Visit Diagnoses Not on filedocumented in this encounter Additional Health Concerns Assessment Noted Time PHQ-9 Depression Total Score: 3 06/04/19 23 3:42 PM EDT documented as of this encounter Care Teams Order Management Specialist Relationship Specialty Start Date End Date Carlo Santana MD 505 [place] [address] PCP - General Internal Medicine 12/28/17 documented as of this encounter
--- OUTSIDE RECORDS SUMMARY | 2024-12-28 10:49 | XMS_ITS | Encounter Summary ---
Author Organization [employer] Address [address] [facility] 7t [place] [address] Care Team Providers Care Director Of Scientific Research Name Role Phone Carlo Santana MD Primary Care Provider [phone] Reason for Visit * Reason Comments Med Change Request Encounter Details Date Type Department Care Team ([facility] Contact Info) Description 04/08/2023 Refill [facility] MED & PEDS 505 [place], [place] [phone] Carlo Santana MD 505 [place], [place] [phone] Obesity (BMI 30-39.9) Social History Tobacco Use [...] [facility] MED & PED[facility] 505 [place] [address] Fariba Gandhi, HUGO 505 [place] [address] documented as of this encounter Visit Diagnoses Diagnosis Obesity (BMI 30-39.9) documented in this encounter Additional Health Concerns Assessment Noted Time PHQ-9 Depression Total Score: 3 06/04/19 23 3:42 PM EDT documented as of this encounter Care Teams Director Of Scientific Research Relationship Specialty Start Date End Date Carlo Santana MD 505 [place] [address] PCP - General Internal Medicine 12/28/17 documented as of this encounter
--- OUTSIDE RECORDS SUMMARY | 2024-12-28 10:49 | XMS_ITS | Encounter Summary ---
Author Organization [employer] Address 75 [facility] 7t [place] [address] Care Team Providers Care Patient Case Coordinator Name Role Phone Carlo Santana MD Primary Care Provider [phone] Reason for Visit * Reason Comments Med Refill Encounter Details Date Type Department Care Team ([facility] Contact Info) Description 12/06/2023 Refill [facility] MED & PEDS 505 [place], [place] [phone] Carlo Santana MD 505 [place], [place] [phone] Bipolar affective disorder, remission status unspecified (CMS/[facility]) Social History Tobacco Use Types Packs/Day [...] [facility] st Contact Info) Description 01/02/2025 2:15 PM EDT Clinical Support [facility] MED & PEDS 505 [place] [address] Fariba Gandhi RN 505 [place] [address] documented as of this encounter Visit Diagnoses Diagnosis Bipolar affective disorder, remission status unspecified (CMS/HCC) ([facility]) documented in this encounter Additional Health Concerns Assessment Noted Time PHQ-9 Depression Total Score: 3 06/04/19 23 3:42 PM EDT documented as of this encounter Care Teams Patient Case Coordinator Relationship Specialty Start Date End Date Carlo Santana MD 505 [place] [address] PCP - General Internal Medicine 12/28/17 documented as of this encounter
--- OUTSIDE RECORDS SUMMARY | 2024-12-28 10:49 | XMS_ITS | Encounter Summary ---
Author Organization [employer] Address [address] 7[address] [place] [address] Care Team Providers Care Adjunct History Instructor Name Role Phone Carlo Santana MD Primary Care Provider [phone] Encounter Details Date Type Department Care Team (Late st Contact Info) Description 11/02/2023 Orders Only [facility] 230 [place] [address] Carlo Santana MD [address] [facility] [address] [place], [place] [phone] Chronic left-sided low back pain with left-sided [...] 2:15 PM EDT Clinical Support [facility] MED & PEDS 505 [place] [address] Fariba Gandhi RN 505 [place] [address] documented as of this encounter Visit Diagnoses Diagnosis Chronic left-sided low back pain with left-sided sciatica documented in this encounter Additional Health Concerns Assessment Noted Time PHQ-9 Depression Total Score: 3 06/04/19 23 3:42 PM EDT documented as of this encounter Care Teams Adjunct History Instructor Relationship Specialty Start Date End Date Carlo Santana MD 505 [place] [address] PCP - General Internal Medicine 12/28/17 documented as of this encounter
--- OUTSIDE RECORDS SUMMARY | 2024-12-28 10:49 | XMS_ITS | Encounter Summary ---
Author Organization [employer] Address [address] [facility] 7 [place] [address] Care Team Providers Care Supervisor Cooperage Shop Name Role Phone Carlo Santana MD Primary Care Provider [phone] Encounter Details Date Type Department [facility] Team ([facility] Contact Info) Description 02/08/2024 Orders Only [facility] CH[facility] MED & PEDS 505 [place], [place] [phone] Carlo Santana MD 505 [place], [place] [phone] [place] (generalized anxiety disorder) (Primary Dx) Social [...] Encounters Date Type Department Care Team ([facility] st Contact Info) Description 01/02/2025 2:15 PM EDT Clinical Support [facility] MED & PEDS [address] [place] [address] Fariba Gandhi, HUGO 505 [place] [address] documented as of this encounter Visit Diagnoses Diagnosis [place] (generalized anxiety disorder)- Primary Generalized anxiety disorder documented in this encounter Additional Health Concerns Assessment Noted Time PHQ-9 Depression Total Score: 15 024 11:50 AM EST documented as of this encounter Care Teams Supervisor Cooperage Shop Relationship Specialty Start Date End Date Carlo Santana MD 505 [place] [address] PCP - General Internal Medicine 12/28/17 documented as of this encounter
--- OUTSIDE RECORDS SUMMARY | 2024-12-28 10:49 | XMS_ITS | Encounter Summary ---
Author Organization [employer] Address [address] 7[address] [place] [address] Care Team Providers Care Senior It Security Analyst Name Role Phone Carlo Santana MD Primary Care Provider [phone] Reason for Visit * Reason Onset Date Comments Nurse Triage 10/31/2023 Encounter Details Date Type Department Care Team ([facility] st Contact Info) Description 10/31/2023 Telephone [facility] MEDICINE 230 [place] [address] Carlo Santana MD 505 [place], [place] [phone] Nurse Triage Social History Tobacco Use Types [...] need for follow-up with a provider. Suggested [facility] but pt wanted to see PCP for stronger lidocaine patches for her back. Pt reports pain as a constant 7-8/10 and can barely move. Reiterated that pt should be seen for the fall to be properly evaluated and there was not same daycare appt at [facility]. Pt declined [place] and ended call. [...] [facility] 505 [place] [address] Fariba Gandhi RN 505 [place] [address] documented as of this encounter Visit Diagnoses Not on filedocumented in this encounter Additional Health Concerns Assessment Noted Time PHQ-9 Depression Total Score: 3 06/04/19 23 3:42 PM EDT documented as of this encounter Care Teams Senior It Security Analyst Relationship Specialty Start Date End Date Carlo Santana MD 505 [place] [address] PCP - General Internal Medicine 12/28/17 documented as of this encounter
--- OUTSIDE RECORDS SUMMARY | 2024-12-28 10:49 | XMS_ITS | Encounter Summary ---
Author Organization [employer] Address [address] [facility] 7t [place] [address] Care Team Providers Care Patternmaker Sample Name Role Phone Carlo Santana MD Primary Care Provider [phone] Reason for Visit * Reason Onset Date Comments Call Back Request 10/13/2023 Encounter Details Date Type Department Care Team ([facility] st Contact Info) Description 10/13/2023 Telephone [facility] MEDICINE 230 [place] [address] Carlo Santana MD [address] [facility] [address] [place], [place] [phone] Call Back Request Social History Tobacco Use [...] pt requesting a call back in regards 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 No further details provided. documented in this encounter Plan of Treatment Upcoming Encounters Date Type Department Care Team (Late st Contact Info) Description 01/02/2025 2:15 PM EDT Clinical Support [facility] MED & PEDS 505 [place] [address] Fariba Gandhi, HUGO 505 [place] [address] documented as of this encounter Visit Diagnoses Not on filedocumented in this encounter Additional Health Concerns Assessment Noted Time PHQ-9 Depression Total Score: 3 06/04/19 23 3:42 PM EDT documented as of this encounter Care Teams Patternmaker Sample Relationship Specialty Start Date End Date Carlo Santana MD 505 [place] [address] PCP - General Internal Medicine 12/28/17 documented as of this encounter
--- OUTSIDE RECORDS SUMMARY | 2024-12-28 10:49 | XMS_ITS | Encounter Summary ---
Author Organization [employer] Address [address] [facility] 7t [place] [address] Care Team Providers Care Consulting Software Engineer Name Role Phone Carlo Santana MD Primary Care Provider [phone] Reason for Visit * Reason Onset Date Comments Call Back Request 07/10/2024 Encounter Details Date Type Department Care Team ([facility] st Contact Info) Description 07/10/2024 Telephone [facility] MEDICINE 230 [place] [address] Carlo Santana MD [address] [facility] [facility] [address] [place], [place] [phone] Call Back Request Social History Tobacco Use [...] Fariba regarding her appt, Contact pt at [phone] documented in this encounter Plan of Treatment Upcoming Encounters Date Type Department Care Team ([facility] st Contact Info) Description 01/02/2025 2:15 PM EDT Clinical Support [facility] CHC MED & PEDS 505 [place] [address] Fariba Gandhi RN 505 [place] [address] documented as of this encounter Visit Diagnoses Not on filedocumented in this encounter Additional Health Concerns Assessment Noted Time PHQ-9 Depression Total Score: 15 024 11:50 AM EST documented as of this encounter Care Teams Consulting Software Engineer Relationship Specialty Start Date End Date Carlo Santana MD 505 [place] [address] PCP - General Internal Medicine 12/28/17 documented as of this encounter
--- OUTSIDE RECORDS SUMMARY | 2024-12-28 10:49 | XMS_ITS | Encounter Summary ---
Author Organization [employer] Address [address] [facility] 7t [place] [address] Care Team Providers Care Liaison Planner Name Role Phone Carlo Santana MD Primary Care Provider [phone] Reason for Visit * Reason Onset Date Comments Med Refill 11/01/2023 Encounter Details Date Type Department Care Team (Late st Contact Info) Description 11/01/2023 Telephone [facility] MEDICINE 230 [place] [address] Carlo Santana MD [address] [place], [place] [phone] Med Refill Social History Tobacco Use Types [...] 7.5-325 MG tablet To be sent to: [facility]/pharmacy #[id number] LEATHA PHILLIPS - [address] [place] [address] documented in this encounter Plan of Treatment Upcoming Encounters Date Type Department Care Team (Late st Contact Info) Description 01/02/2025 2:15 PM EDT Clinical Support [facility] CH[facility] MED & PEDS 505 [place] [address] Fariba Gandhi, HUGO 505 [place] [address] documented as of this encounter Visit Diagnoses Not on filedocumented in this encounter Additional Health Concerns Assessment Noted Time PHQ-9 Depression Total Score: 3 06/04/19 23 3:42 PM EDT documented as of this encounter Care Teams Liaison Planner Relationship Specialty Start Date End Date Carlo Santana MD 505 [place] [address] PCP - General Internal Medicine 12/28/17 documented as of this encounter
--- OUTSIDE RECORDS SUMMARY | 2024-12-28 10:49 | XMS_ITS | Encounter Summary ---
Author Organization [employer] Address [address] [facility] 7t [place] [address] Care Team Providers Care Industry Segment Specialist Name Role Phone Carlo Santana MD Primary Care Provider [phone] Reason for Visit * Reason Comments Med Refill Encounter Details Date Type Department Care Team ([facility] Contact Info) Description 10/23/2024 Refill [facility] CH[facility] MED & PEDS 505 [place], [place] [phone] Carlo Santana MD 505 [place], [place] [phone] Chronic left shoulder pain; Rib pain; Chronic [...] [facility] MED & PEDS 505 [place] [address] Fariba Gandhi RN 505 [place] [address] documented as of this encounter Visit Diagnoses Diagnosis Chronic left shoulder pain Pain in joint, shoulder region Rib pain Unspecified chest pain Chronic left-sided low back pain with left-sided sciatica Neck pain Cervicalgia documented in this encounter Additional Health Concerns Assessment Noted Time PHQ-9 Depression Total Score: 6 08/22/19 25 10:16 AM EDT documented as of this encounter Care Teams Industry Segment Specialist Relationship Specialty Start Date End Date Carlo Santana MD 505 [place] [address] PCP - General Internal Medicine 12/28/17 documented as of this encounter
--- OUTSIDE RECORDS SUMMARY | 2024-12-28 10:49 | XMS_ITS | Encounter Summary ---
Author Organization [employer] Address 75 [facility] 7t [place] [address] Care Team Providers Care Supervisor Rework Name Role Phone Carlo Santana MD Primary Care Provider [phone] Reason for Visit * Reason Comments Med Change Request Encounter Details Date Type Department Care Team ([facility] st Contact Info) Description 08/14/2024 Refill [facility] MEDICINE 230 [place] [address] Carlo Santana MD 505 [place], [place] [phone] Bipolar affective disorder, remission status unspecified (CMS/HCC) [...] Upcoming Encounters Date Type Department Care Team ([facility] st Contact Info) Description 01/02/2025 2:15 PM EDT Clinical Support [facility] MED & PEDS 505 [place] [address] Fariba Gandhi, HUGO 505 [place] [address] documented as of this encounter Visit Diagnoses Diagnosis Bipolar affective disorder, remission status unspecified (CMS/HCC) (HCC) documented in this encounter Additional Health Concerns Assessment Noted Time PHQ-9 Depression Total Score: 15 024 11:50 AM EST documented as of this encounter Care Teams Supervisor Rework Relationship Specialty Start Date End Date Carlo Santana MD 505 [place] [address] PCP - General Internal Medicine 12/28/17 documented as of this encounter
--- OUTSIDE RECORDS SUMMARY | 2024-12-28 10:49 | XMS_ITS | Encounter Summary ---
Author Organization [employer] Address [address] [facility] 7t [place] [address] Care Team Providers Care Brush Fabrication Supervisor Name Role Phone Carlo Santana MD Primary Care Provider [phone] Reason for Visit * Reason Onset Date Comments Med Refill 11/02/2023 Encounter Details Date Type Department Care Team (Late st Contact Info) Description 11/02/2023 Telephone [facility] MEDICINE [address] [place] [address] Carlo Santana MD [address] [facility] [address] [place], [place] [phone] Med Refill Social History Tobacco Use Types [...] script for oxycodone to be sent to [facility] on file. * Telephone Encounter - Quan Mena - 11/02/2023 9:15 AM EDT Tc from pt stating oxyCODONE-acetaminophen (Percocet) 7.5-325 MG tablet was sent to the wrong pharmacy and was advised by the pharmacy to contact pcp to have script transferred to the right pharmacy.Pt is requesting to have script sent to [facility]. If any questions you can contact pt at [phone]. documented in this encounter Plan of Treatment Upcoming Encounters Date Type Department Care Team (Late st Contact Info) Description 01/02/2025 2:15 PM EDT Clinical Support [facility] MED & PEDS 505 [place] [address] Fariba Gandhi, RN 505 [place] [address] documented as of this encounter Visit Diagnoses Not on filedocumented in this encounter Additional Health Concerns Assessment Noted Time PHQ-9 Depression Total Score: 3 06/04/19 23 3:42 PM EDT documented as of this encounter Care Teams Brush Fabrication Supervisor Relationship Specialty Start Date End Date Carlo Santana MD [address] [place] [address] PCP - General Internal Medicine 12/28/17 documented as of this encounter
--- OUTSIDE RECORDS SUMMARY | 2024-12-28 10:49 | XMS_ITS | Encounter Summary ---
Author Organization [employer] Address [address] [facility] 7t [place] [address] Care Team Providers Care Food And Drink Factory Workers Name Role Phone Carlo Santana MD Primary Care Provider [phone] Reason for Visit * Reason Onset Date Comments Call Back Request 02/28/2024 Encounter Details Date Type Department Care Team ([facility] Contact Info) Description 02/28/2024 Telephone [facility] MEDICINE 230 [place] [address] Carlo Santana MD 505 [place], [place] [phone] Call Back Request Social History Tobacco Use [...] [facility] MED & [facility]ED[facility] 505 [place] [address] Fariba Gandhi RN 505 [place] [address] documented as of this encounter Visit Diagnoses Not on filedocumented in this encounter Additional Health Concerns Assessment Noted Time PHQ-9 Depression Total Score: 15 024 11:50 AM EST documented as of this encounter Care Teams Food And Drink Factory Workers Relationship Specialty Start Date End Date Carlo Santana MD 505 [place] [address] PCP - General Internal Medicine 12/28/17 documented as of this encounter
--- OUTSIDE RECORDS SUMMARY | 2024-12-28 10:49 | XMS_ITS | Encounter Summary ---
Author Organization [employer] Address 75 [facility] 7t [place] [address] Care Team Providers Care Boat Motor Mechanic Name Role Phone Carlo Santana MD Primary Care Provider [phone] Reason for Visit * Reason Onset Date Comments Referral 08/09/2024 Encounter Details Date Type Department Care Team ([facility] st Contact Info) Description 08/09/2024 Telephone [facility] MEDICINE 230 [place] [address] Carlo Santana MD 505 [place], [place] [phone] Referral Social History Tobacco Use Types Packs/Day [...] AM EDT Message left for patient to [facility] for pain management. She refused an appointment at [facility] but was seen at [facility] pain clinic in June. * Telephone Encounter - Patricia Espinal - 08/09/2024 11:39 AM EDT Telephone call received from patient requesting a referral to Pain Management at [facility]. Patient reports had a previous referral, but states it has . documented in this encounter Plan of Treatment Upcoming Encounters Date Type Department Care Team ([facility] st Contact Info) Description 01/02/2025 2:15 PM EDT Clinical Support [facility] MED & PEDS 505 [place] [address] Fariba Gandhi, HUGO 505 [place] [address] documented as of this encounter Visit Diagnoses Not on filedocumented in this encounter Additional Health Concerns Assessment Noted Time PHQ-9 Depression Total Score: 15 024 11:50 AM EST documented as of this encounter Care Teams Boat Motor Mechanic Relationship Specialty Start Date End Date Carlo Santana MD [address] [place] [address] PCP - General Internal Medicine 12/28/17 documented as of this encounter
--- OUTSIDE RECORDS SUMMARY | 2024-12-28 10:49 | XMS_ITS | Encounter Summary ---
Author Organization [employer] Address [address] [facility] 7t [place] [address] Care Team Providers Care Senior Accounts Payable Clerk Name Role Phone Carlo Santana MD Primary Care Provider [phone] Reason for Visit * Reason Onset Date Comments Med Refill 09/17/2023 Encounter Details Date Type Department Care Team (Late st Contact Info) Description 09/17/2023 Refill [facility] 230 [place] [address] Carlo Santana MD [address] [facility] [facility] [address] [place], [place] [phone] Chronic left-sided low back pain with left-sided [...] [facility] 505 [place] [address] Fariba Gandhi RN 505 [place] [address] documented as of this encounter Visit Diagnoses Diagnosis Chronic left-sided low back pain with left-sided sciatica documented in this encounter Additional Health Concerns Assessment Noted Time PHQ-9 Depression Total Score: 3 06/04/19 23 3:42 PM EDT documented as of this encounter Care Teams Senior Accounts Payable Clerk Relationship Specialty Start Date End Date Carlo Santana MD 505 [place] [address] PCP - General Internal Medicine 12/28/17 documented as of this encounter
--- OUTSIDE RECORDS SUMMARY | 2024-12-28 10:49 | XMS_ITS | Encounter Summary ---
Author Organization [employer] Address [address] [facility] 7t [place] [address] Care Team Providers Care Inside Account Executive Name Role Phone Carlo Santana MD Primary Care Provider [phone] Reason for Visit * Reason Onset Date Comments Referral 02/22/2024 Encounter Details Date Type Department Care Team ([facility] st Contact Info) Description 02/22/2024 Telephone [facility] MEDICINE [address] [place] [address] Carlo Santana MD [address] [facility] [address] [place], [place] [phone] Referral Social History Tobacco Use Types Packs/Day [...] second referral for Outpatient Therapy, Callback number [phone] documented in this encounter Plan of Treatment Upcoming Encounters Date Type Department Care Team ([facility] st Contact Info) Description 01/02/2025 2:15 PM EDT Clinical Support [facility] CHC MED & PEDS 505 [place] [address] Fariba Gandhi, RN 505 [place] [address] documented as of this encounter Visit Diagnoses Not on filedocumented in this encounter Additional Health Concerns Assessment Noted Time PHQ-9 Depression Total Score: 15 024 11:50 AM EST documented as of this encounter Care Teams Inside Account Executive Relationship Specialty Start Date End Date Carlo Santana MD [address] [place] [address] PCP - General Internal Medicine 12/28/17 documented as of this encounter
--- OUTSIDE RECORDS SUMMARY | 2024-12-28 10:49 | XMS_ITS | Encounter Summary ---
Author Organization [employer] Address [address] [place] [address] 7 [place] [address] Care Team Providers Care Brick Handler Name Role Phone Carlo Santana MD Primary Care Provider [phone] Encounter Details Date Type Department Care Team (Latest Contact Info) Description 01/18/[address] [facility] CONVERSIONS Dental, Provider, DDS Social History [...] [facility] 505 [place] [address] Fariba Gandhi, HUGO 505 [place] [address] documented as of this encounter Visit Diagnoses Not on filedocumented in this encounter Care Teams Brick Handler Relationship Specialty Start Date End Date Carlo Santana MD 505 [place] [address] PCP - General Internal Medicine 12/28/17 documented as of this encounter
--- OUTSIDE RECORDS SUMMARY | 2024-12-28 10:50 | XMS_ITS | Encounter Summary ---
Author Organization [employer] Address [address] [facility] 7t [place] [address] Care Team Providers Care Deputy District Customs Director Name Role Phone Carlo Santana MD Primary Care Provider [phone] Encounter Details Date Type Department Care Team ([facility] Contact Info) Description 03/05/2024 Orders Only [facility] CHC MED & PEDS 505 [place], [place] [phone] Carlo Santana MD 505 [place] [address] Social History Tobacco Use Types Packs/Day Years [...] [facility] MED [facility]EDS 505 [place] [address] Fariba Gandhi, HUGO 505 [place] [address] documented as of this encounter Visit Diagnoses Not on filedocumented in this encounter Additional Health Concerns Assessment Noted Time PHQ-9 Depression Total Score: 15 024 11:50 AM EST documented as of this encounter Care Teams Deputy District Customs Director Relationship Specialty Start Date End Date Carlo Santana MD 505 [place] [address] PCP - General Internal Medicine 12/28/17 documented as of this encounter
--- OUTSIDE RECORDS SUMMARY | 2024-12-28 10:50 | XMS_ITS | Encounter Summary ---
Author Organization [employer] Address 75 [facility] 7t [place] [address] Care Team Providers Care Upset Operator Name Role Phone Carlo Santana MD Primary Care Provider [phone] Reason for Visit * Reason Comments Med Refill Encounter Details Date Type Department Care Team ([facility] st Contact Info) Description 05/09/2024 Refill [facility] MEDICINE 230 [place] [address] Carlo Santana MD 505 [place], [place] [phone] Diarrhea, unspecified type; Chronic left shoulder pain; [...] [facility] MED & PEDS 505 [place] [address] Fariba Gandhi, HUGO 505 [place] [address] documented as of this encounter Visit Diagnoses Diagnosis Diarrhea, unspecified type Chronic left shoulder pain Pain in joint, shoulder region Rib pain Unspecified chest pain Chronic left-sided low back pain with left-sided sciatica Neck pain Cervicalgia documented in this encounter Additional Health Concerns Assessment Noted Time PHQ-9 Depression Total Score: 15 024 11:50 AM EST documented as of this encounter Care Teams Upset Operator Relationship Specialty Start Date End Date Carlo Santana MD 505 [place] [address] PCP - General Internal Medicine 12/28/17 documented as of this encounter
--- OUTSIDE RECORDS SUMMARY | 2024-12-28 10:50 | XMS_ITS | Encounter Summary ---
Author Organization [employer] Address [address] [facility] [address] 7t [place] [address] Care Team Providers Care Herpetology Teacher Name Role Phone Carlo Santana MD Primary Care Provider [phone] Reason for Visit * Reason Onset Date Comments Appointment Request 12/13/2023 Encounter Details Date Type Department Care Team ([facility] st Contact Info) Description 12/13/2023 Telephone [facility] 230 [place] [address] Carlo Santana MD 505 [place], [place] [phone] Appointment Request Social History Tobacco Use Types [...] [facility] MED & PEDS 505 [place] [address] Fariba Gandhi, HUGO 505 [place] [address] documented as of this encounter Visit Diagnoses Not on filedocumented in this encounter Additional Health Concerns Assessment Noted Time PHQ-9 Depression Total Score: 3 06/04/19 23 3:42 PM EDT documented as of this encounter Care Teams Herpetology Teacher Relationship Specialty Start Date End Date Carlo Santana MD 505 [place] [address] PCP - General Internal Medicine 12/28/17 documented as of this encounter
--- OUTSIDE RECORDS SUMMARY | 2024-12-28 10:50 | XMS_ITS | Encounter Summary ---
Author Organization [employer] Address [address] [facility] [address] 7t [place] [address] Care Team Providers Care Pediatric Surgeon Name Role Phone Carlo Santana MD Primary Care Provider [phone] Reason for Visit * Reason Onset Date Comments Results 12/19/2023 Encounter Details Date Type Department Care Team ([facility] st Contact Info) Description 12/19/2023 Telephone [facility] MEDICINE 230 [place] [address] Carlo Santana MD [address] [facility] [address] [place], [place] [phone] Results Social History Tobacco Use Types Packs/Day [...] results: Labs Date when done: 12/15 Facility: [facility] documented in this encounter Plan of Treatment Upcoming Encounters Date Type Department Care Team (Late st Contact Info) Description 01/02/2025 2:15 PM EDT Clinical Support [facility] MED & PEDS [address] [place] [address] Fariba Gandhi, HUGO 505 [place] [address] documented as of this encounter Visit Diagnoses Not on filedocumented in this encounter Additional Health Concerns Assessment Noted Time PHQ-9 Depression Total Score: 3 06/04/19 23 3:42 PM EDT documented as of this encounter Care Teams Pediatric Surgeon Relationship Specialty Start Date End Date Carlo Santana MD 505 [place] [address] PCP - General Internal Medicine 12/28/17 documented as of this encounter
--- OUTSIDE RECORDS SUMMARY | 2024-12-28 10:50 | XMS_ITS | Encounter Summary ---
Author Organization [employer] Address [address] [facility] [address] 7t [place] [address] Care Team Providers Care Audograph Operator Name Role Phone Carlo Santana MD Primary Care Provider [phone] Reason for Visit * Reason Onset Date Comments Medication Question 05/06/2023 Encounter Details Date Type Department Care Team ([facility] st Contact Info) Description 05/06/2023 Telephone [facility] MEDICINE 230 [place] [address] Carlo Santana MD 505 [place], [place] [phone] Medication Question Social History Tobacco Use Types [...] [facility]EDS [address] [place] [address] Fariba Gandhi, HUGO 505 [place] [address] documented as of this encounter Visit Diagnoses Not on filedocumented in this encounter Additional Health Concerns Assessment Noted Time PHQ-9 Depression Total Score: 3 06/04/19 23 3:42 PM EDT documented as of this encounter Care Teams Audograph Operator Relationship Specialty Start Date End Date Carlo Santana MD 505 [place] [address] PCP - General Internal Medicine 12/28/17 documented as of this encounter
--- OUTSIDE RECORDS SUMMARY | 2024-12-28 10:50 | XMS_ITS | Encounter Summary ---
Author Organization [employer] Address [address] [facility] 7t [place] [address] Care Team Providers Care Tier Truck Driver Name Role Phone Carlo Santana MD Primary Care Provider [phone] Reason for Visit * Reason Onset Date Comments Call Back Request 12/19/2023 Encounter Details Date Type Department Care Team ([facility] st Contact Info) Description 12/19/2023 Telephone [facility] MEDICINE 230 [place] [address] Carlo Santana MD [address] [facility] [address] [place], [place] [phone] Call Back Request Social History Tobacco Use [...] 2:15 PM EDT Clinical Support [facility] CHC MED & PEDS 505 [place] [address] Fariba Gandhi, HUGO 505 [place] [address] documented as of this encounter Visit Diagnoses Not on filedocumented in this encounter Additional Health Concerns Assessment Noted Time PHQ-9 Depression Total Score: 3 06/04/19 23 3:42 PM EDT documented as of this encounter Care Teams Tier Truck Driver Relationship Specialty Start Date End Date Carlo Santana MD 505 [place] [address] PCP - General Internal Medicine 12/28/17 documented as of this encounter
--- OUTSIDE RECORDS SUMMARY | 2024-12-28 10:50 | XMS_ITS | Encounter Summary ---
Author Organization [employer] Address [address] [place] [address] 7t [place] [address] Care Team Providers Care Bank Clerk Name Role Phone Carlo Santana MD Primary Care Provider [phone] Reason for Visit * Reason Onset Date Comments Med Refill 09/16/2022 Encounter Details Date Type Department Care Team ([facility] Contact Info) Description 09/16/2022 Telephone [facility] MED & PEDS 505 [place] [address] Carlo Santana MD 505 [place] [address] Med Refill Social History Tobacco Use Types [...] [facility] MED & PEDS 505 [place] [address] Fariba Gandhi, HUGO 505 [place] [address] documented as of this encounter Visit Diagnoses Not on filedocumented in this encounter Additional Health Concerns Assessment Noted Time PHQ-9 Depression Total Score: 3 06/04/19 23 3:42 PM EDT documented as of this encounter Care Teams Bank Clerk Relationship Specialty Start Date End Date Carlo Santana MD 505 [place] [address] PCP - General Internal Medicine 12/28/17 documented as of this encounter
--- OUTSIDE RECORDS SUMMARY | 2024-12-28 10:50 | XMS_ITS | Encounter Summary ---
Author Organization [employer] Address [address] [facility] 7t [place] [address] Care Team Providers Care Irrigation System Operator Name Role Phone Carlo Santana MD Primary Care Provider [phone] Encounter Details Date Type Department Care Team ([facility] st Contact Info) Description 12/21/2023 Orders Only [facility] CHC MED & PEDS 505 [place], [place] [phone] Carlo Santana MD 505 [place], [place] [phone] Hypoproteinemia (CMS/HCC) (Primary Dx); Diarrhea, unspecified type [...] [facility] MED & PEDS 505 [place] [address] Fariba Gandhi, RN 505 [place] [address] documented as of this encounter Procedures Procedure Name Priority Date/Time Associated Diagnosis Comments GASTROINTESTINAL PANEL Routine 5:33 PM EDT Diarrhea, unspecified type documented in this encounter Results * Gastrointestinal panel (aka ova & parasites) (12/24/2023 5:33 PM EDT) Campylobacter Not Detected Not Detect. [facility] Plesiomonas shigelloides Not Detected Not Detect. [facility] Salmonella Not Detected Not Detect. [facility] Vibrio Not Detected Not Detect. [facility] Vibrio cholerae Not Detected Not Detect. [facility] YERSINIA ENTEROCOLITICA Not Detected Not Detect. [facility] Enteroaggregative E. coli (EAEC) Not Detected Not Detect. [facility] Enteropathogenic E. coli (EPEC) Not Detected Not Detect. [facility] Enterotoxigenic E. coli (ETEC) lt/st Not Detected Not Detect. [facility] Shiga-like toxin-producing E. coli (STEC) stx1/stx2 Not Detected Not Detect. [facility] E coli O157 Not applicable Not Detect. [facility] Comment:E. coli containing t he O157 antigen are a subset ofShiga-like toxin- producing E. coli (STEC). Shigella/Enteroinvasive E. coli (EIEC) Not Detected Not Detect. [facility] Cryptosporidium Not Detected Not Detect. [facility] Cyclospora cayetanensis Not Detected Not Detect. [facility] Entamoeba histolytica Not Detected Not Detect. [facility] Giardia lamblia Not Detected Not Detect. [facility] Adenovirus F 40/41 Not Detected Not Detect. [facility] Astrovirus Not Detected Not Detect. [facility] Norovirus GI/GII Not Detected Not Detect. [facility] Rotavirus A Not Detected Not Detect. [facility] Sapovirus Not Detected Not Detect. [facility] Comment: All results must be [...] assay is performed by Multiplexed PCR, utilizing Local Magnet Array. Stool Rectal contents / Unknown 12/24/2023 5:33 PM EDT 12/27/2023 12:21 PM EDT us Thevenin Beauzile MD LAB MICROBIOLOGY - GENERAL ORDERABLES Final Result [facility] [address] [place] [address] [phone] documented in this encounter Visit Diagnoses Diagnosis Hypoproteinemia (CMS/HCC)- Primary Other disorders of plasma protein metabolism Diarrhea, unspecified type documented in this encounter Additional Health Concerns Assessment Noted Time PHQ-9 Depression Total Score: 3 06/04/19 23 3:42 PM EDT documented as of this encounter Care Teams Irrigation System Operator Relationship Specialty Start Date End Date Carlo Santana MD [address] [place] [address] PCP - General Internal Medicine 12/28/17 documented as of this encounter
--- OUTSIDE RECORDS SUMMARY | 2024-12-28 10:50 | XMS_ITS | Encounter Summary ---
Author Organization [employer] Address [address] 7t [place] [address] Care Team Providers Care Wire Insulator Name Role Phone Carlo Santana MD Primary Care Provider [phone] Reason for Visit * Reason Onset Date Comments Referral 12/01/2023 Encounter Details Date Type Department Care Team ([facility] st Contact Info) Description 12/01/2023 Telephone [facility] MEDICINE 230 [place] [address] Carlo Santana MD [address] [facility] [address] [place], [place] [phone] Referral Social History Tobacco Use Types Packs/Day [...] Tc from pt requesting a referral to [facility]. Stated not satisfied with [facility]. Specialty: [facility] - Adult Outpatient Address: [address] [place] [address] If any questions contact pt at [phone] * Telephone Encounter - Angel Luis Oreilly - 12/01/2023 10:34 AM EDT Tc from patient calling to request a referral for a therapist states has been waiting for a call back from [facility] and has not heard a response documented in this encounter Plan of Treatment Upcoming Encounters Date Type Department Care Team ([facility] st Contact Info) Description 01/02/2025 2:15 PM EDT Clinical Support [facility] MED & PEDS 505 [place] [address] Fariba Gandhi RN 505 [place] [address] documented as of this encounter Visit Diagnoses Not on filedocumented in this encounter Additional Health Concerns Assessment Noted Time PHQ-9 Depression Total Score: 3 06/04/19 23 3:42 PM EDT documented as of this encounter Care Teams Wire Insulator Relationship Specialty Start Date End Date Carlo Santana MD [address] [place] [address] PCP - General Internal Medicine 12/28/17 documented as of this encounter
--- OUTSIDE RECORDS SUMMARY | 2024-12-28 10:50 | XMS_ITS | Encounter Summary ---
Author Organization [employer] Address [address] [facility] 7t [place] [address] Care Team Providers Care Bed Manager Name Role Phone Carlo Santana MD Primary Care Provider [phone] Reason for Visit * Reason Comments Med Refill Encounter Details Date Type Department Care Team ([facility] st Contact Info) Description 06/20/2022 Refill [facility] MEDICINE 230 [place] [address] Carlo Santana MD 505 [place], [place] [phone] Chronic left-sided low back pain with left-sided [...] 2:15 PM EDT Clinical Support [facility] CHC MED & PEDS 505 [place] [address] Fariba Gandhi, RN 505 [place] [address] documented as of this encounter Visit Diagnoses Diagnosis Chronic left-sided low back pain with left-sided sciatica documented in this encounter Additional Health Concerns Assessment Noted Time PHQ-9 Depression Total Score: 3 06/04/19 23 3:42 PM EDT documented as of this encounter Care Teams Bed Manager Relationship Specialty Start Date End Date Carlo Santana MD 505 [place] [address] PCP - General Internal Medicine 12/28/17 documented as of this encounter
--- OUTSIDE RECORDS SUMMARY | 2024-12-28 10:50 | XMS_ITS | Encounter Summary ---
Author Organization [employer] Address [address] [place] [address] 7 [place] [address] Care Team Providers Care Sales Service Supervisor Name Role Phone Carlo Santana MD Primary Care Provider [phone] Reason for Visit * Reason Comments Med Refill Encounter Details Date Type Department Care Team (Late st Contact Info) Description 05/19/[address] [facility] MED & PEDS 505 [place] [address] Servando Howard MD 505 [place] [address] Chronic left-sided low back pain with left-sided [...] [facility] 505 [place] [address] Fariba Gandhi RN 505 [place], [place] [phone] documented as of this encounter Visit Diagnoses Diagnosis Chronic left-sided low back pain with left-sided sciatica documented in this encounter Care Teams Sales Service Supervisor Relationship Specialty Start Date End Date Carlo Santana MD [address] [place] [address] PCP - General Internal Medicine 12/28/17 documented as of this encounter
--- OUTSIDE RECORDS SUMMARY | 2024-12-28 10:50 | XMS_ITS | Encounter Summary ---
Author Organization [employer] Address [address] [facility] [address] 7t [place] [address] Care Team Providers Care Gradall Operator Name Role Phone Carlo Santana MD Primary Care Provider [phone] Reason for Visit * Reason Comments Med Change Request Encounter Details Date Type Department Care Team ([facility] st Contact Info) Description 12/20/2023 Refill [facility] 230 [place] [address] Carlo Santana MD [address] [facility] [facility] [address] [place], [place] [address] Hypoproteinemia (CMS/HCC) Social History Tobacco Use Types [...] [facility] 505 [place] [address] Fariba Gandhi, HUGO 505 [place] [address] documented as of this encounter Visit Diagnoses Diagnosis Hypoproteinemia (CMS/HCC) Other disorders of plasma protein metabolism documented in this encounter Additional Health Concerns Assessment Noted Time PHQ-9 Depression Total Score: 3 06/04/19 23 3:42 PM EDT documented as of this encounter Care Teams Gradall Operator Relationship Specialty Start Date End Date Carlo Santana MD 505 [place] [address] PCP - General Internal Medicine 12/28/17 documented as of this encounter
--- OUTSIDE RECORDS SUMMARY | 2024-12-28 10:50 | XMS_ITS | Encounter Summary ---
Author Organization [employer] Address [address] [facility] 7t [place] [address] Care Team Providers Care Movie Theater Manager Name Role Phone Carlo Santana MD Primary Care Provider [phone] Reason for Visit * Reason Comments Med Refill Encounter Details Date Type Department Care Team ([facility] Contact Info) Description 12/19/2023 Refill [facility] CHC MED & PEDS 505 [place], [place] [phone] Carlo Santana MD 505 [place] [address] Diarrhea, unspecified type Social History Tobacco Use [...] 01/02/2025 2:15 PM EDT Clinical Support [facility] MED & PEDS 505 [place] [address] Fariba Gandhi RN 505 [place] [address] documented as of this encounter Visit Diagnoses Diagnosis Diarrhea, unspecified type documented in this encounter Additional Health Concerns Assessment Noted Time PHQ-9 Depression Total Score: 3 06/04/19 23 3:42 PM EDT documented as of this encounter Care Teams Movie Theater Manager Relationship Specialty Start Date End Date Carlo Santana MD 505 [place] [address] PCP - General Internal Medicine 12/28/17 documented as of this encounter
--- OUTSIDE RECORDS SUMMARY | 2024-12-28 10:50 | XMS_ITS | Encounter Summary ---
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 States she is going through a [...] [facility] 505 [facility] [place] [address] Fariba Gandhi, HUGO 505 [facility] [place] [address] documented as of this encounter Visit Diagnoses Diagnosis Chronic left-sided low back pain with left-sided sciatica documented in this encounter Additional Health Concerns Assessment Noted Time PHQ-9 Depression Total Score: 15 024 11:50 AM EST documented as of this encounter Care Teams Trench Pipe Layer Relationship Specialty Start Date End Date Carlo Santana MD [address] [place] [address] PCP - General Internal Medicine 12/28/17 documented as of this encounter
--- OUTSIDE RECORDS SUMMARY | 2024-12-28 10:50 | XMS_ITS | Encounter Summary ---
Author Organization [employer] Address [address] [place] [address] 7 [place] [address] Care Team Providers Care Wheel Aligner Name Role Phone Carlo Santana MD Primary Care Provider [phone] Reason for Visit * Reason Comments Med Refill Encounter Details Date Type Department Care Team ([facility] Contact Info) Description 10/28/2022 Refill [facility] MED & PEDS [address] [place] [address] Carlo Santana MD 505 [place] [address] Muscle spasm Social History Tobacco Use Types [...] Department Care Team ([facility] Contact Info) Description 01/02/2025 2:15 PM EDT Clinical Support [facility] MED & PEDS 505 [place] [address] Fariba Gandhi, HUGO 505 [place] [address] documented as of this encounter Visit Diagnoses Diagnosis Muscle spasm Spasm of muscle documented in this encounter Additional Health Concerns Assessment Noted Time PHQ-9 Depression Total Score: 3 06/04/19 23 3:42 PM EDT documented as of this encounter Care Teams Wheel Aligner Relationship Specialty Start Date End Date Carlo Santana MD 505 [place] [address] PCP - General Internal Medicine 12/28/17 documented as of this encounter
--- OUTSIDE RECORDS SUMMARY | 2024-12-28 10:50 | XMS_ITS | Encounter Summary ---
Author Organization [employer] Address 75 [facility] 7t [place] [address] Care Team Providers Care Wrapper Layer And Examiner Soft Work Name Role Phone Carlo Santana MD Primary Care Provider [phone] Reason for Visit * Reason Onset Date Comments Durable Medical Equipment 12/23/2023 Encounter Details Date Type Department Care Team ([facility] Contact Info) Description 12/23/2023 Telephone [facility] MED & PEDS 505 [place] [address] Carlo Santana MD 505 [place] [address] Durable Medical Equipment Social History Tobacco Use [...] small If any questions contact pt at [phone] documented in this encounter Plan of Treatment Upcoming Encounters Date Type Department Care Team ([facility] st Contact Info) Description 01/02/2025 2:15 PM EDT Clinical Support [facility] MED & PEDS 505 [place] [address] Fariba Gandhi RN 505 [place] [address] documented as of this encounter Visit Diagnoses Diagnosis Chronic left-sided low back pain with left-sided sciatica documented in this encounter Additional Health Concerns Assessment Noted Time PHQ-9 Depression Total Score: 3 06/04/19 3:42 PM EDT documented as of this encounter Care Teams Wrapper Layer And Examiner Soft Work Relationship Specialty Start Date End Date Carlo Santana MD 505 [place] [address] PCP - General Internal Medicine 12/28/17 documented as of this encounter
--- OUTSIDE RECORDS SUMMARY | 2024-12-28 10:50 | XMS_ITS | Encounter Summary ---
Author Organization [employer] Address [address] [place] [address] 7 [place] [address] Care Team Providers Care Assistant Director Of Security Name Role Phone Carlo Santana MD Primary Care Provider [phone] Reason for Visit * Reason Comments Med Change Request Encounter Details Date Type Department Care Team ([facility] Contact Info) Description 06/21/2022 Refill [facility] MED & PEDS 505 [place], [place] [phone] Carlo Santana MD 505 [place] [address] Chronic left-sided low back pain with left-sided [...] 2:15 PM EDT Clinical Support [facility] CHC MED & PEDS 505 [place] [address] Fariba Gandhi, HUGO 505 [place] [address] documented as of this encounter Visit Diagnoses Diagnosis Chronic left-sided low back pain with left-sided sciatica documented in this encounter Additional Health Concerns Assessment Noted Time PHQ-9 Depression Total Score: 3 06/04/19 23 3:42 PM EDT documented as of this encounter Care Teams Assistant Director Of Security Relationship Specialty Start Date End Date Carlo Santana MD 505 [place] [address] PCP - General Internal Medicine 12/28/17 documented as of this encounter
--- OUTSIDE RECORDS SUMMARY | 2024-12-28 10:50 | XMS_ITS | Encounter Summary ---
Author Organization [employer] Address 75 [facility] 7t [place] [address] Care Team Providers Care Dial Maker Name Role Phone Carlo Santana MD Primary Care Provider [phone] Encounter Details Date Type Department Care Team ([facility] st Contact Info) Description 12/04/2024 Telephone [facility] MEDICINE 230 [place] [address] Carlo Santana MD 505 [place], [place] [phone] Social History Tobacco Use Types Packs/Day Years [...] [facility] MED & PEDS 505 [place] [address] Fariba Gandhi, HUGO 505 [place] [address] documented as of this encounter Visit Diagnoses Not on filedocumented in this encounter Additional Health Concerns Assessment Noted Time PHQ-9 Depression Total Score: 6 08/22/19 25 10:16 AM EDT documented as of this encounter Care Teams Dial Maker Relationship Specialty Start Date End Date Carlo Santana MD 505 [place] [address] PCP - General Internal Medicine 12/28/17 documented as of this encounter
--- OUTSIDE RECORDS SUMMARY | 2024-12-28 10:50 | XMS_ITS | Encounter Summary ---
Author Organization [employer] Address [address] [facility] [address] 7t [place] [address] Care Team Providers Care E Commerce Marketing Analyst Name Role Phone Carlo Santana MD Primary Care Provider [phone] Reason for Visit * Reason Onset Date Comments Nurse Triage 04/12/2023 Encounter Details Date Type Department Care Team ([facility] st Contact Info) Description 04/12/2023 Telephone [facility] MEDICINE 230 [place] [address] Carlo Santana MD 505 [place], [place] [phone] Nurse Triage Social History Tobacco Use Types [...] with disposition and home care reviewed. Apt [facility] 04/13/23 @ 1120am. Insurance is veriifed [...] [facility] MED & PEDS 505 [place] [address] Fariba Gandhi, HUGO 505 [place] [address] documented as of this encounter Visit Diagnoses Not on filedocumented in this encounter Additional Health Concerns Assessment Noted Time PHQ-9 Depression Total Score: 3 06/04/19 23 3:42 PM EDT documented as of this encounter Care Teams E Commerce Marketing Analyst Relationship Specialty Start Date End Date Carlo Santana MD 505 [place] [address] PCP - General Internal Medicine 12/28/17 documented as of this encounter
--- OUTSIDE RECORDS SUMMARY | 2024-12-28 10:50 | XMS_ITS | Encounter Summary ---
Author Organization [employer] Address [address] [place] [address] 7t [place] [address] Care Team Providers Care Needle Leader Name Role Phone Carlo Santana MD Primary Care Provider [phone] Reason for Visit * Reason Comments Med Refill Encounter Details Date Type Department Care Team ([facility] Contact Info) Description 06/20/2022 Refill [facility] CH[facility] MED & PEDS 505 [place], [place] [phone] Servando Howard MD 505 [place] [address] Social History Tobacco Use Types Packs/Day Years [...] Clinical Support [facility] CHC MED & PEDS 505 [place] [address] Fariba Gandhi, RN 505 [place] [address] documented as of this encounter Visit Diagnoses Not on filedocumented in this encounter Additional Health Concerns Assessment Noted Time PHQ-9 Depression Total Score: 3 06/04/19 23 3:42 PM EDT documented as of this encounter Care Teams Needle Leader Relationship Specialty Start Date End Date Carlo Santana MD 505 [place] [address] PCP - General Internal Medicine 12/28/17 documented as of this encounter
--- OUTSIDE RECORDS SUMMARY | 2024-12-28 10:50 | XMS_ITS | Encounter Summary ---
Author Organization [employer] Address 75 [facility] 7t [place] [address] Care Team Providers Care Night Club Manager Name Role Phone Carlo Santana MD Primary Care Provider [phone] Reason for Visit * Reason Onset Date Comments Med Refill 04/21/2023 Encounter Details Date Type Department Care Team (Late st Contact Info) Description 04/21/2023 Refill [facility] MEDICINE 230 [place] [address] Carlo Santana MD [address] [facility] [address] [place], [place] [phone] Low back pain radiating down leg Social [...] [facility] MED [facility] 505 [place] [address] Fariba Gandhi RN 505 [place] [address] documented as of this encounter Visit Diagnoses Diagnosis Low back pain radiating down leg documented in this encounter Additional Health Concerns Assessment Noted Time PHQ-9 Depression Total Score: 3 06/04/19 23 3:42 PM EDT documented as of this encounter Care Teams Night Club Manager Relationship Specialty Start Date End Date Carlo Santana MD 505 [place] [address] PCP - General Internal Medicine 12/28/17 documented as of this encounter
--- OUTSIDE RECORDS SUMMARY | 2024-12-28 10:50 | XMS_ITS | Encounter Summary ---
Author Organization [employer] Address 75 [facility] 7t [place] [address] Care Team Providers Care Sand Tester Name Role Phone Carlo Santana MD Primary Care Provider [phone] Reason for Visit * Reason Onset Date Comments Medication Question 04/25/2024 Encounter Details Date Type Department Care Team ([facility] Contact Info) Description 04/25/2024 Telephone [facility] MEDICINE 230 [place] [address] Carlo Santana MD 505 [place], [place] [phone] Medication Question Social History Tobacco Use Types [...] any questions you can contact pt at [phone]. documented in this encounter Plan of Treatment Upcoming Encounters Date Type Department Care Team ([facility] st Contact Info) Description 01/02/2025 2:15 PM EDT Clinical Support [facility] MED & PEDS 505 [place] [address] Fariba Gandhi RN 505 [place] [address] documented as of this encounter Visit Diagnoses Not on filedocumented in this encounter Additional Health Concerns Assessment Noted Time PHQ-9 Depression Total Score: 15 024 11:50 AM EST documented as of this encounter Care Teams Sand Tester Relationship Specialty Start Date End Date Carlo Santana MD 505 [place] [address] PCP - General Internal Medicine 12/28/17 documented as of this encounter
--- OUTSIDE RECORDS SUMMARY | 2024-12-28 10:50 | XMS_ITS | Encounter Summary ---
Author Organization [employer] Address 75 [facility] 7t [place] [address] Care Team Providers Care Bacteriologist Medical Name Role Phone Carlo Santana MD Primary Care Provider [phone] Encounter Details Date Type Department Care Team ([facility] st Contact Info) Description 04/21/2023 Telephone [facility] MEDICINE 230 [place] [address] Carlo Santana MD 505 [place], [place] [phone] Social History Tobacco Use Types Packs/Day Years [...] [facility] 505 [place] [address] Fariba Gandhi, HUGO 505 [place] [address] documented as of this encounter Visit Diagnoses Not on filedocumented in this encounter Additional Health Concerns Assessment Noted Time PHQ-9 Depression Total Score: 3 06/04/19 23 3:42 PM EDT documented as of this encounter Care Teams Bacteriologist Medical Relationship Specialty Start Date End Date Carlo Santana MD 505 [place] [address] PCP - General Internal Medicine 12/28/17 documented as of this encounter
--- OUTSIDE RECORDS SUMMARY | 2024-12-28 10:50 | XMS_ITS | Encounter Summary ---
Author Organization [employer] Address 75 [facility] 7t [place] [address] Care Team Providers Care Field Crop Farmworker Name Role Phone Carlo Santana MD Primary Care Provider [phone] Reason for Visit * Reason Onset Date Comments Med Refill 12/06/2024 Encounter Details Date Type Department Care Team (Late st Contact Info) Description 12/06/2024 Telephone [facility] MEDICINE 230 [place] [address] Carlo Santana MD 505 [place], [place] [phone] Med Refill Social History Tobacco Use Types [...] EDT Medication was sent to [facility] on 12/03/24 90 day supply. * Telephone Encounter - Tasha Barton - 12/06/2024 1:03 PM EDT TC from pt requesting medication refill. Medications needing refill : - DULoxetine (Cymbalta) [address] capsule To be sent to: - [facility] - [place] - [address] documented in this encounter Plan of Treatment Upcoming Encounters Date Type Department Care Team (Late st Contact Info) Description 01/02/2025 2:15 PM EDT Clinical Support [facility] MED & PEDS [address] [place] [address] Fariba Gandhi, RN [address] [place] [address] documented as of this encounter Visit Diagnoses Not on filedocumented in this encounter Additional Health Concerns Assessment Noted Time PHQ-9 Depression Total Score: 6 08/22/19 25 10:16 AM EDT documented as of this encounter Care Teams Field Crop Farmworker Relationship Specialty Start Date End Date Carlo Santana MD [address] [place] [address] PCP - General Internal Medicine 12/28/17 documented as of this encounter
--- OUTSIDE RECORDS SUMMARY | 2024-12-28 10:50 | XMS_ITS | Encounter Summary ---
Author Organization [employer] Address [address] [place] [address] 7 [place] [address] Care Team Providers Care Test Grader Name Role Phone Carlo Santana MD Primary Care Provider [phone] Reason for Visit * Reason Onset Date Comments Appointment Request 05/04/2022 Encounter Details Date Type Department Care Team ([facility] Contact Info) Description 05/04/2022 Telephone [facility] CHC MED & PEDS 505 [place] [address] Carlo Santana MD 505 [place] [address] Appointment Request Social History Tobacco Use Types [...] done for the low back pain but [facility] advised to pt that she is not ableto make the appt , the provider has to make the appt for her. Please contact pt at [phone] documented in this encounter Plan of Treatment Upcoming Encounters Date Type Department Care Team ([facility] st Contact Info) Description 01/02/2025 2:15 PM EDT Clinical Support [facility] MED & PEDS 505 [place] [address] Fariba Gandhi, HUGO 505 [place] [address] documented as of this encounter Visit Diagnoses Not on filedocumented in this encounter Care Teams Test Grader Relationship Specialty Start Date End Date Carlo Santana MD 505 [place] [address] PCP - General Internal Medicine 12/28/17 documented as of this encounter
--- OUTSIDE RECORDS SUMMARY | 2024-12-28 10:50 | XMS_ITS | Encounter Summary ---
Author Organization [employer] Address [address] [place] [address] 7t [place] [address] Care Team Providers Care Database Development Project Manager Name Role Phone Carlo Santana MD Primary Care Provider [phone] Reason for Visit * Reason Onset Date Comments Med Refill 10/28/2022 Encounter Details Date Type Department Care Team ([facility] Contact Info) Description 10/28/2022 Telephone [facility] CHC MED & PEDS 505 [place] [address] Carlo Santana MD 505 [place] [address] Med Refill Social History Tobacco Use Types [...] Support [facility] MED & PEDS 505 [place] [address] Fariba Gandhi, HUGO 505 [place] [address] documented as of this encounter Visit Diagnoses Not on filedocumented in this encounter Additional Health Concerns Assessment Noted Time PHQ-9 Depression Total Score: 3 06/04/19 23 3:42 PM EDT documented as of this encounter Care Teams Database Development Project Manager Relationship Specialty Start Date End Date Carlo Santana MD 505 [place] [address] PCP - General Internal Medicine 12/28/17 documented as of this encounter
--- OUTSIDE RECORDS SUMMARY | 2024-12-28 10:50 | XMS_ITS | Encounter Summary ---
Author Organization [employer] Address 75 [facility] 7t [place] [address] Care Team Providers Care Certified Legal Secretary Specialist Name Role Phone Carlo Santana MD Primary Care Provider [phone] Reason for Visit * Reason Onset Date Comments Med Refill 05/04/2023 Encounter Details Date Type Department Care Team ([facility] Contact Info) Description 05/04/2023 Telephone [facility] MEDICINE 230 [place] [address] Carlo Santana MD [address] [facility] [address] [place], [place] [phone] Med Refill Social History Tobacco Use Types [...] 200 MG capsule To be sent to: [facility]/pharmacy #[id number] [place] - [address] [facility] documented in this encounter Plan of Treatment Upcoming Encounters Date Type Department Care Team (Late st Contact Info) Description 01/02/2025 2:15 PM EDT Clinical Support [facility] CHC MED & PEDS 505 [place] [address] Fariba Gandhi, HUGO 505 [place] [address] documented as of this encounter Visit Diagnoses Not on filedocumented in this encounter Additional Health Concerns Assessment Noted Time PHQ-9 Depression Total Score: 3 06/04/19 23 3:42 PM EDT documented as of this encounter Care Teams Certified Legal Secretary Specialist Relationship Specialty Start Date End Date Carlo Santana MD 505 [place] [address] PCP - General Internal Medicine 12/28/17 documented as of this encounter
--- OUTSIDE RECORDS SUMMARY | 2024-12-28 10:50 | XMS_ITS | Encounter Summary ---
Author Organization [employer] Address 75 [facility] 7t [place] [address] Care Team Providers Care Sample Steamer Name Role Phone Carlo Santana MD Primary Care Provider [phone] Reason for Visit * Reason Onset Date Comments Nurse Triage 11/09/2023 Encounter Details Date Type Department Care Team ([facility] Contact Info) Description 11/09/2023 Telephone [facility] CHC MED & PEDS 505 [place] [address] Carlo Santana MD 505 [place] [address] Nurse Triage Social History Tobacco Use Types [...] Encounters Date Type Department Care Team ([facility] st Contact Info) Description 01/02/2025 2:15 PM EDT Clinical Support [facility] MED & PEDS 505 [place] [address] Fariba Gandhi RN 505 [place] [address] documented as of this encounter Visit Diagnoses Not on filedocumented in this encounter Additional Health Concerns Assessment Noted Time PHQ-9 Depression Total Score: 3 06/04/19 23 3:42 PM EDT documented as of this encounter Care Teams Sample Steamer Relationship Specialty Start Date End Date Carlo Santana MD 505 [place] [address] PCP - General Internal Medicine 12/28/17 documented as of this encounter
--- OUTSIDE RECORDS SUMMARY | 2024-12-28 10:50 | XMS_ITS | Encounter Summary ---
Author Organization [employer] Address 75 [facility] 7t [place] [address] Care Team Providers Care Corporate Physical Security Supervisor Name Role Phone Carlo Santana MD Primary Care Provider [phone] Encounter Details Date Type Department Care Team ([facility] st Contact Info) Description 06/09/2023 Telephone [facility] MEDICINE 230 [place] [address] Carlo Santana MD 505 [place], [place] [phone] Social History Tobacco Use Types Packs/Day Years [...] Clinical Support [facility] MED & PEDS 505 [place] [address] Fariba Gandhi, HUGO 505 [place] [address] documented as of this encounter Visit Diagnoses Not on filedocumented in this encounter Additional Health Concerns Assessment Noted Time PHQ-9 Depression Total Score: 3 06/04/19 23 3:42 PM EDT documented as of this encounter Care Teams Corporate Physical Security Supervisor Relationship Specialty Start Date End Date Carlo Santana MD 505 [place] [address] PCP - General Internal Medicine 12/28/17 documented as of this encounter
--- OUTSIDE RECORDS SUMMARY | 2024-12-28 10:50 | XMS_ITS | Encounter Summary ---
Author Organization [employer] Address 75 [facility] 7t [place] [address] Care Team Providers Care Producer Arborist Manager Name Role Phone Carlo Santana MD Primary Care Provider [phone] Reason for Visit * Reason Onset Date Comments Call Back Request 06/09/2023 Encounter Details Date Type Department Care Team ([facility] st Contact Info) Description 06/09/2023 Telephone [facility] MEDICINE 230 [place] [address] Carlo Santana MD [address] [facility] [address] [place], [place] [phone] Call Back Request Social History Tobacco Use [...] Tc from pt requesting a call back, magazine writer ask pt if wanted to r/s appt but pt sated I wanted to talk about it documented in this encounter Plan of Treatment Upcoming Encounters Date Type Department Care Team (Late st Contact Info) Description 01/02/2025 2:15 PM EDT Clinical Support [facility] CHC MED & PEDS 505 [place] [address] Fariba Gandhi, HUGO 505 [place] [address] documented as of this encounter Visit Diagnoses Not on filedocumented in this encounter Additional Health Concerns Assessment Noted Time PHQ-9 Depression Total Score: 3 06/04/19 23 3:42 PM EDT documented as of this encounter Care Teams Producer Arborist Manager Relationship Specialty Start Date End Date Carlo Santana MD 505 [place] [address] PCP - General Internal Medicine 12/28/17 documented as of this encounter
--- OUTSIDE RECORDS SUMMARY | 2024-12-28 10:50 | XMS_ITS | Encounter Summary ---
Author Organization [employer] Address 75 [facility] 7t [place] [address] Care Team Providers Care Vault Person Name Role Phone Carlo Santana MD Primary Care Provider [phone] Reason for Visit * Reason Onset Date Comments Appointment Request 11/08/2023 Encounter Details Date Type Department Care Team ([facility] Contact Info) Description 11/08/2023 Telephone [facility] CHC MED & PEDS 505 [place] [address] Carlo Santana MD 505 [place] [address] Appointment Request Social History Tobacco Use Types [...] Miscellaneous Notes * Telephone Encounter - Suyapa aSntacruz - 11/08/2023 3:51 PM EDT Outgoing call [...] ([facility] st Contact Info) Description 01/02/2025 2:15 PM EDT Clinical Support [facility] MED & PEDS 505 [place] [address] Fariba Gandhi RN 505 [place] [address] documented as of this encounter Visit Diagnoses Not on filedocumented in this encounter Additional Health Concerns Assessment Noted Time PHQ-9 Depression Total Score: 3 06/04/19 23 3:42 PM EDT documented as of this encounter Care Teams Vault Person Relationship Specialty Start Date End Date Carlo Santana MD [address] [place] [address] PCP - General Internal Medicine 12/28/17 documented as of this encounter
--- OUTSIDE RECORDS SUMMARY | 2024-12-28 10:50 | XMS_ITS | Encounter Summary ---
Author Organization [employer] Address [address] 7t [place] [address] Care Team Providers Care Child Welfare Worker Name Role Phone Carlo Santana MD Primary Care Provider [phone] Encounter Details Date Type Department Care Team (Late st Contact Info) Description 12/20/2023 Orders Only [facility] [address] [place] [address] Carlo Santana MD [address] [place], [place] [phone] Hypoproteinemia (CMS/HCC) (Primary Dx) Social History Tobacco [...] ([facility] st Contact Info) Description 01/02/2025 2:15 PM EDT Clinical Support [facility] & [facility]ED[facility] 505 [place] [address] Fariba Gandhi RN 505 [place] [address] documented as of this encounter Visit Diagnoses Diagnosis Hypoproteinemia (CMS/HCC)- Primary Other disorders of plasma protein metabolism documented in this encounter Additional Health Concerns Assessment Noted Time PHQ-9 Depression Total Score: 3 06/04/19 23 3:42 PM EDT documented as of this encounter Care Teams Child Welfare Worker Relationship Specialty Start Date End Date Carlo Santana MD 505 [place] [address] PCP - General Internal Medicine 12/28/17 documented as of this encounter
--- OUTSIDE RECORDS SUMMARY | 2024-12-28 10:50 | XMS_ITS | Encounter Summary ---
Author Organization [employer] Address [address] [facility] 7t [place] [address] Care Team Providers Care Webfocus Developer Name Role Phone Carlo Santana MD Primary Care Provider [phone] Reason for Visit * Reason Onset Date Comments Med Refill 12/06/2024 Encounter Details Date Type Department Care Team (Late st Contact Info) Description 12/06/2024 Telephone [facility] [address] [place] [address] Carlo Santnaa MD 505 [place], [place] [phone] Med Refill Social History Tobacco Use Types [...] release tablet To be sent to: - [facility] - LEATHA Leblanc - [address] [facility] documented in this encounter Plan of Treatment Upcoming Encounters Date Type Department Care Team ([facility] st Contact Info) Description 01/02/2025 2:15 PM EDT Clinical Support [facility] 505 [facility] [address] Farbia Gandhi RN 505 [facility] [place] [address] documented as of this encounter Visit Diagnoses Not on filedocumented in this encounter Additional Health Concerns Assessment Noted Time PHQ-9 Depression Total Score: 6 08/22/19 25 10:16 AM EDT documented as of this encounter Care Teams Webfocus Developer Relationship Specialty Start Date End Date Carlo Santana MD 505 [place] [address] PCP - General Internal Medicine 12/28/17 documented as of this encounter
--- OUTSIDE RECORDS SUMMARY | 2024-12-28 10:50 | XMS_ITS | Encounter Summary ---
Author Organization [employer] Address [address] [place] [address] 7 [place] [address] Care Team Providers Care Photographic Processor Name Role Phone Carlo Santana MD Primary Care Provider [phone] Reason for Referral * Imaging (Routine) - Closed Specialty Diagnoses / Procedures Referred By Contac t Referred To Contact Radiology Diagnoses Daily headache Procedures MRA Head w/o Contrast Carlo Santana MD [address] [place] [address] Phone: tel: fax: [address] Phone: tel: fax: Referral ID Status Reason Start Date Expiration Date Visits Re quested Visits Authorized [id number] Closed 11/21/2024 11/21/2025 1 1 Encounter Details Date Type Department Care Team (Late st Contact Info) Description 11/21/2024 Orders Only [facility]S [address] [place], [place] [phone] Carlo Santana MD 505 [place] [address] Daily headache (Primary Dx) Social History Tobacco [...] 2:15 PM EDT Clinical Support [facility] [address] [place] [address] Fariba Gandhi, HUGO 505 [place] [address] Scheduled Orders Name Type Priority Associated Diagnoses Orde r Schedule MRA Head w/o Contrast Imaging Routine Daily headache Expected: 11/21/2024, Expires: 11/21/2025 documented as of this encounter Visit Diagnoses Diagnosis Daily headache- Primary documented in this encounter Additional Health Concerns Assessment Noted Time PHQ-9 Depression Total Score: 6 08/22/19 25 10:16 AM EDT documented as of this encounter Care Teams Photographic Processor Relationship Specialty Start Date End Date Carlo Santana MD 505 [place] [address] PCP - General Internal Medicine 12/28/17 documented as of this encounter
--- OUTSIDE RECORDS SUMMARY | 2024-12-28 10:50 | XMS_ITS | Encounter Summary ---
Author Organization [employer] Address [address] [place] [address] 7 [place] [address] Care Team Providers Care Interior Design Coordinator Name Role Phone Carlo Santana MD Primary Care Provider [phone] Reason for Visit * Reason Comments Med Refill Encounter Details Date Type Department Care Team (Late st Contact Info) Description 05/06/2022 Refill [facility] [address] [place] [address] Servando Howard MD 505 [place] [address] Chronic left-sided low back pain with left-sided [...] [facility] [place] [address] [place] [address] Fariba Gandhi RN 505 [place], [place] [phone] documented as of this encounter Visit Diagnoses Diagnosis Chronic left-sided low back pain with left-sided sciatica documented in this encounter Care Teams Interior Design Coordinator Relationship Specialty Start Date End Date Carlo Santana MD [address] [place] [phone] PCP - General Internal Medicine 12/28/17 documented as of this encounter
--- OUTSIDE RECORDS SUMMARY | 2024-12-28 10:51 | XMS_ITS | Encounter Summary ---
Author Organization [employer] Address [address] [facility] 7t [place] [address] Care Team Providers Care Employment Coordinator Name Role Phone Carlo Santana MD Primary Care Provider [phone] Reason for Visit * Reason Onset Date Comments Medication Question 04/17/2024 Med Refill 04/17/2024 Encounter Details Date Type Department Care Team ([facility] st Contact Info) Description 04/17/2024 Telephone [facility] [address] [place] [address] Carlo Santana MD [address] [place], [place] [phone] Medication Question; Med Refill Social History Tobacco [...] only has 2 left. Contact pt at [phone] documented in this encounter Plan of Treatment Upcoming Encounters Date Type Department Care Team ([facility] st Contact Info) Description 01/02/2025 2:15 PM EDT Clinical Support [facility]S 505 [place] [address] Fariba Gandhi, HUGO 505 [place] [address] documented as of this encounter Visit Diagnoses Not on filedocumented in this encounter Additional Health Concerns Assessment Noted Time PHQ-9 Depression Total Score: 15 024 11:50 AM EST documented as of this encounter Care Teams Employment Coordinator Relationship Specialty Start Date End Date Carlo Santana MD [address] [place] [address] PCP - General Internal Medicine 12/28/17 documented as of this encounter
--- OUTSIDE RECORDS SUMMARY | 2024-12-28 10:51 | XMS_ITS | Encounter Summary ---
Author Organization [employer] Address [address] [place] [address] 7t [place] [address] Care Team Providers Care Hearing Officer Name Role Phone Carlo Santana MD Primary Care Provider [phone] Reason for Visit * Reason Onset Date Comments Med Refill 10/18/2022 Encounter Details Date Type Department Care Team ([facility] Contact Info) Description 10/18/2022 Telephone [facility] [address] [place] [address] Carlo Santana MD [address] [place] [address] Med Refill Social History Tobacco Use Types [...] requesting status on script. Please contact at [phone] * Telephone Encounter - Avelina Brown - 10/18/2022 8:27 AM EDT Tc from patient requesting a med refill for medication oxycodone 5 mg. Please send to [facility]/pharmacy #[id number] - LEATHA PHILLIPS - [phone] Santana documented in this encounter Plan of Treatment Upcoming Encounters Date Type Department Care Team ([facility] st Contact Info) Description 01/02/2025 2:15 PM EDT Clinical Support [facility] MED & PEDS 505 [place] [address] Fariba Gandhi, HUGO 505 [place] [address] documented as of this encounter Visit Diagnoses Diagnosis Low back pain radiating down leg documented in this encounter Additional Health Concerns Assessment Noted Time PHQ-9 Depression Total Score: 3 06/04/19 23 3:42 PM EDT documented as of this encounter Care Teams Hearing Officer Relationship Specialty Start Date End Date Carlo Santana MD 505 [place] [address] PCP - General Internal Medicine 12/28/17 documented as of this encounter
--- OUTSIDE RECORDS SUMMARY | 2024-12-28 10:51 | XMS_ITS | Encounter Summary ---
Author Organization [employer] Address [address] [place] [address] 7 [place] [address] Care Team Providers Care Continuous Linter Drier Operator Name Role Phone Carlo Santana MD Primary Care Provider [phone] Reason for Referral * Imaging (Routine) - Canceled Specialty Diagnoses / Procedures Referred By Contac t Referred To Contact Radiology Diagnoses Transaminitis Procedures US Abdomen Complete Carlo Santana MD [address] [place] [address] Phone: tel: fax: Referral ID Status Reason Start Date Expiration Date V isits Requested Visits Authorized [id number] Canceled 04/11/2024 04/11/2025 1 1 Encounter Details Date Type Department Care Team ([facility] Contact Info) Description 04/11/2024 Orders Only [facility]EDS [address] [place] [address] Carlo Santana MD 505 [place] [address] Normocytic anemia (Primary Dx); Transaminitis Social History [...] Upcoming Encounters Date Type Department Care Team ([facility] st Contact Info) Description 01/02/2025 2:15 PM EDT Clinical Support [facility] [address] [place] [address] Fariba Gandhi, RN 505 [place] [address] Scheduled Orders Name Type Priority Associated Diagnoses [...] 11:35 AM EDT) Mitochondrial Antibodies NEGATIVE NEGATIVE [facility] Comment:THIS TEST WAS PERFOR MED AT:[employer] [place] [id number] HUTTON MD Mitochondrial Ab Titer TNP [facility] Blood Venous blood specimen / Unknown 08/16/2024 11:35 AM EDT 08/16/2024 11:35 AM EDT us Carlo Santana MD LAB BLOOD ORDERABLES Final Result [facility] [address] [place] [phone] * Hepatitis A,B,C Profile (08/16/2024 11:35 AM EDT) Hepatitis A IgM Nonreactive Nonreactive [facility] Comment:IgM antibodies to OLIVA V not detected; does not exclude earlyacute or recovered HAV infection. ~Hepatitis B Surface Antibody REACTIVE Nonreactive [facility] Comment:REACTIVE: > 11.99 mI U/mL Hepatitis B Core Antibody Nonreactive Nonreactive [facility] Hepatitis C Antibody Nonreactive Nonreactive [facility] Comment:Antibodies to HCV no t detected; does not exclude early acuteHCV infection. Hepatitis B Surface Ag Negative Negative [facility] Blood Venous blood specimen / Unknown 08/16/2024 11:35 AM EDT 08/16/2024 11:35 AM EDT us Carlo Santana MD LAB BLOOD ORDERABLES Final Result Performing Organization Address [facility]/ZIP Co de Phone Number [facility] [address] [place] [phone] * T-SPOT??.TB (04/11/2024 11:20 AM EST) T Spot TB Negative Negative [facility] Comment:A negative test resu lt [...] as aquantitative test. TS PANEL A 0 [facility] TS PANEL B 1 [facility] Negative Control Passed [facility] Positive Control Passed [facility] Comment:For additional infor matpaulie, please refer [email or web address] [email or web address](This link is being provided for informational/educational purposes only.)THIS TEST WAS PERFORMED AT:[facility] [id number] [place] [id number] KOENIG MD,PHD 04/11/2024 11:2 0 AM EST 04/11/2024 2:39 PM EST us Carlo Santana MD LAB BLOOD ORDERABLES Final Result Performing Organization Address [facility]/ZIP Co de Phone Number [facility] [address] [place] [phone] documented in this encounter Visit Diagnoses Diagnosis Normocytic anemia- Primary Unspecified anemia Transaminitis Nonspecific elevation of levels of transaminase or lactic acid dehydrogenase (LDH) documented in this encounter Additional Health Concerns Assessment Noted Time PHQ-9 Depression Total Score: 15 024 11:50 AM EST documented as of this encounter Care Teams Continuous Linter Drier Operator Relationship Specialty Start Date End Date Carlo Santana MD [address] [place] [address] PCP - General Internal Medicine 12/28/17 documented as of this encounter
[2024-12-28 11:04] LABS: Appearance Urine Clear; Glucose Urine UA Negative (Negative); PH 8.5 (5.0-9.0); Specific Gravity - Urine 1.010 (1.005-1.025); UMIC TRIGGER UA YES
[2024-12-28 13:53] LABS: Anion Gap 10 (12-20); Blood Urea Nitrogen 8 mg/dL (9-16); Calcium 9.1 mg/dL (8.4-10.2); Carbon Dioxide 24 mmol/L (22-29); Chloride 110 mmol/L (96-108); Estimated Glomerular Filt Rate > 60; Potassium 4.1 mmol/L (3.3-5.1); Sodium 140 mmol/L (135-145)
== END 2024-12-28 09:31 | disposition home or self-care (01) ==
LOC: HO.LAB 09:30
PROVIDERS: Urology; PCP Internal Medicine; Visit Provider Internal Medicine
DX: R20.2 Paresthesia of skin (principal); R31.29 Other microscopic hematuria; N39.41 Urge incontinence; R73.09 Other abnormal glucose; M25.511 Pain in right shoulder; G89.29 Other chronic pain; R51.9 Headache, unspecified
CPT/HCPCS: 36415; 80048; 81001; 83036; 84207; 84425; 87086; 87088; 87186

== ENCOUNTER 2025-01-17 13:56 | Outpatient (REF) | payer MEDICAID, SELFPAY | END 2025-01-17 13:57 | disposition home or self-care (01) | LOC: HO.LAB 13:56 | PROVIDERS: PCP Internal Medicine; Visit Provider Urology | DX: N39.0 Urinary tract infection, site not specified (principal); N39.41 Urge incontinence; R15.9 Full incontinence of feces; N39.8 Other specified disorders of urinary system; Z79.899 Other long term (current) drug therapy | CPT/HCPCS: 51798; 81003; 87086; 87088; 87186; 99212 ==

== ENCOUNTER 2025-01-17 13:56 | Outpatient (AMB) | payer MEDICAID, SELFPAY ==
--- NOTE | 2025-01-17 14:30 | A.OFFVIS_ITS ---
Intake Visit Reasons: follow up/UTI Intake Note: Patient is present for a follow up/UTI Urology Med: Oxybutynin Antibiotic Allergies: None Blood Thinners: None PVR:614ml Space Control Supervisor Required: No Accompanied by: Self / Same As Patient Allergies No Known Allergies Allergy (Verified 01/17/25 14:31) Medication List - Last Reconciled 01/17/25 by Luis Manuel Singh MD acetaminophen (Tylenol) 325 mg PO TID PRN 30 days amlodipine 5 mg PO QAM clonazepam 1 mg PO BEDTIME PRN duloxetine 30 mg PO BID food supplemt, lactose-reduced (Boost High Protein) ea PO BID hydroxyzine pamoate 50 mg PO Q8H PRN incontinence pad, liner, disp (Dry Comfort pads) As directed seven daily lidocaine 5% 1 appl topical DAILY PRN methocarbamol 1,000 mg PO TID PRN 30 days nitrofurantoin monohyd/m-cryst 100 mg (Macrobid) 100 mg PO BID 7 days nitrofurantoin monohyd/m-cryst 100 mg (Macrobid) 100 mg PO BID 7 days ondansetron HCl 8 mg PO Q8H PRN pantoprazole 40 mg (2 x 20 mg) PO QAM spironolactone 200 mg PO QAM Held on 05/14/21. Instructions: Discuss restart with Dr Faulkner tamsulosin (Flomax) 0.4 mg PO BEDTIME topiramate 50 mg PO BID PRN underpads (Bed Underpads) As directed five nightly. ziprasidone HCl 2 caps PO BEDTIME HPI Comments Details: 01/17/25-- History of Present Illness The patient is a 44-year-old female presenting with a urinary tract infection and voiding dysfunction. H/o lumbar radiculopathy and sacralitis which may contribute to LUTS. The urinary tract infection was identified during the visit, with symptoms of burning and increased frequency of urination every half an hour. The patient reports voiding dysfunction, characterized by incomplete bladder emptying, ongoing since her last visit. She was on oxybutynin 10 mg daily, which was intended to decrease urgency but may have contributed to incomplete bladder empt marco. The patient has a post-void residual (PVR) of 600 mL, indicating significant urinary retention. Results - Post-void residual (PVR): 600 mL Plan 1. Urinary Tract Infection - Prescribe macrobid 100 mg twice a day for 7 days pending urine culture results. 2. Voiding Dysfunction - Discontinue oxybutynin and initiate tamsulosin to improve urinary flow and ensure proper bladder emptying. - Schedule follow-up in one month to reassess post-void residual and evaluate urine. 04/09/24--Peri is a 43-year-old female who presents today to the office for follow up mixed urinary incontinence. Peri is currently on oxybutynin 5 mg daily. She states that the VESIcare was not covered. She is wearing pads for intermittent urine leakage and also fecal incontinence. She states she is being followed by GI for her bowel symptoms. She had a recent CT scan 04/05/2024 ordered by GI. I have reviewed results small left renal cyst no hydronephrosis or suspicious parenchymal lesions. Again noted right ovarian cyst. The patient states that she we will be following up with shop technician regarding the ovarian cyst. 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 I will increase oxybutynin from 5 mg to 10 mg. I have discussed other therapies to consider include neuromodulation, InterStim therapy. 04/11/23--Peri is a 42-year-old female who was initially evaluated 01/07/2023 for mixed urinary incontinence. She was started on VESIcare 10 mg daily. She states the medication has been helping. She did not show up for her renal ultrasound that was ordered. Urinalysis-microscopic hematuria. Plan discussed-will reschedule renal ultrasound, continue VESIcare. Consider office cystoscopy on follow-up. 01/07/2023?She presents today for an evaluation of urge urinary incontinence. She has a past medical history of status post gastric bypass in 2011 at [facility], status post gastric sleeve in 05/13/2021, and history of chronic PTSD, bipolar 1, and depression. She also has a history of chronic lower back pain, fibromyalgia, and arthritis. She states that she has had frequency of urination specifically at night time. She is up 4-6 times to urinate and sometimes she leaks before getting into the bathroom. Patient is taking medication to help her sleep at 8 PM. She also takes Spironolactone 200 mg each morning. FH-her son was diagnosed with leukemia at the age 3 and currently, he is doing well. She states that she has occasional burning with urination that may last about a week and goes away on its own. She drinks only water approximately 60 ounces. She adds lemon juice to the water. Patient states that she does drink soda or coffee. She has been taking Trulicity for weight loss. She was prescribed oxybutynin daily by her PCP which she states did not help her urinary symptoms. She denies any history of cigarette smoking. I reviewed the urine culture results from 11/02/2022 which came back 10,000 to 50,000 cfu/ml mixed bacterial aren characteristic of urogenital contamination. Evaluation today?UA?leukocytes: negative; blood: negative. Plan Trial anticholinergic -Vesicare 10 mg daily, renal US ordered. [facility] Medical History Elevated fecal calprotectin Overweight Morbid obesity Obesity BMI 38.0-38.9,adult Back pain Diarrhea Numbness Insomnia Postgastrectomy malabsorption History of headache Arthritis Fibromyalgia HTN (hypertension) Intra-abdominal adhesions Depression Hidradenitis Abnormal EKG Bipolar 1 disorder Hx of borderline personality disorder ADHD Chronic post-traumatic stress disorder (PTSD) Pre-op evaluation Surgical History S/P panniculectomy S/P laparoscopic sleeve gastrectomy Hx of esophagogastroduodenoscopy Gastric bypass status for obesity Family History Mother Obesity Diabetes mellitus Sister No problems noted. Son Leukemia Obesity Social History Are you a primary healthcare facility administrator to a significant other at home: No Do you presently have visiting nurse or other home services: No Alcohol intake: current Alcohol intake frequency: a few times a week Patient Tobacco Use Status: Never used Tobacco Advance Directives Date on File: 05/15/21 service: No Current occupational status: unemployed Review of Systems Const All systems reviewed & are unremarkable except as noted in HPI and below Reports no additional complaints Eyes Reports no additional complaints ENT Reports no additional complaints Card Reports no additional complaints Resp Reports no additional complaints GI Reports no additional complaints Reports as per HPI Musc Reports no additional complaints Skin/Breast Reports system reviewed and no additional complaints, except as documented Neuro Reports no additional complaints Psych Reports no additional complaints Endo Reports no additional complaints Rashard/Lymph Reports no additional complaints Aller/Immun Reports no additional complaints Assessment & Plan Assessment & Plan (1) Urge incontinence of urine: Code(s): N39.41 - Urge incontinence Category: Medical (2) Fecal incontinence: Code(s): R15.9 - Full incontinence of feces Category: Medical (3) Voiding dysfunction: Code(s): N39.8 - Other specified disorders of urinary system Category: Medical Plan Plan 1. Urinary Tract Infection - Prescribe macrobid 100 mg twice a day for 7 days pending urine culture results. 2. Voiding Dysfunction - Discontinue oxybutynin and initiate tamsulosin to improve urinary flow and ensure proper bladder emptying. - Schedule follow-up in one month to reassess post-void residual and evaluate urine. Medications: New tamsulosin (Flomax) 0.4 mg PO BEDTIME 30 caps 5RF nitrofurantoin monohyd/m-cryst 100 mg (Macrobid) must administer with a meal/food 100 mg PO BID 14 caps 0RF 7 days Changed From underpads (Bed Underpads) As directed two nightly. 60 ea 3RF To underpads (Bed Underpads) As directed five nightly. 150 ea 3RF From incontinence pad, liner, disp (Dry Comfort pads) As directed 144 ea 3RF To incontinence pad, liner, disp (Dry Comfort pads) As directed seven daily 210 ea 3RF Discontinued oxybutynin chloride ER Discontinued Reason: Doctor's Order 10 mg PO DAILY 90 tabs 4RF Patient Instructions: The patient had an opportunity to ask questions regarding treatment plan. The patient expressed understanding and agreement with the above treatment plan. The patient is aware they should contact our office by phone for worsening of their current condition or the appearance of new symptoms. Compliance is encouraged with any medications and followup testing that is ordered. It is a privilege to be allowed the opportunity to participate in the urologic care of your patient. If you have any questions or concerns regarding treatment for the above conditions please do not hesitate to contact me. The office telephone contact is [phone]. This note is constructed in part using voice recognition software. While every effort has been made to ensure accuracy building consultant errors may have been included. Yours sincerely, Luis Manuel Singh MD Scribe Plan - Not visible on output: Patient was informed and verbally consented to the use of an ambient scribe for clinic note documentation during this visit. Coding Level of Care Code Est Pt Level 4 (84876) Complex EM visit Add On G2211 Diagnoses Urge incontinence of urine N39.41 Fecal incontinence R15.9 Voiding dysfunction N39.8
--- OUTSIDE RECORDS SUMMARY | 2025-01-17 16:58 | XMS_ITS | Encounter Summary ---
Author Organization [employer] Address [address] [facility] 7t [place] [address] Care Team Providers Care Oil And Gas Principal Name Role Phone Carlo Santana MD Primary Care Provider [phone] Encounter Details Date Type Department Care Team ([facility] st Contact Info) Description 08/17/2023 Orders Only [facility] [address] [place], [place] [phone] Carlo Santana MD [address] [place], [place] [phone] Bipolar affective disorder, remission status unspecified (CMS/HCC) [...] Care Team (Late st Contact Info) Description 01/30/2025 10:30 AM EST Clinical Support [facility] PEDS [address] [place] [address] Fariba Gandhi, HUGO [address] [place] [address] documented as of this encounter Visit Diagnoses Diagnosis Bipolar affective disorder, remission status unspecified (CMS/HCC) ([facility])- Primary documented in this encounter Additional Health Concerns Assessment Noted Time PHQ-9 Depression Total Score: 3 06/04/19 23 3:42 PM EDT documented as of this encounter Care Teams Oil And Gas Principal Relationship Specialty Start Date End Date Carlo Santana MD [address] [place] [address] PCP - General Internal Medicine 12/28/17 documented as of this encounter
--- OUTSIDE RECORDS SUMMARY | 2025-01-17 16:58 | XMS_ITS | Encounter Summary ---
Author Organization [employer] Address [address] [facility] 7t [place] [address] Care Team Providers Care Pattern Assembler Name Role Phone Carlo Santana MD Primary Care Provider [phone] Reason for Visit * Reason Onset Date Comments Nurse Triage 12/14/2024 Encounter Details Date Type Department Care Team ([facility] st Contact Info) Description 12/14/2024 Telephone [facility] MEDICINE [address] [place] [address] Carlo Santana MD 505 [place], [place] [phone] Nurse Triage Social History Tobacco Use Types [...] caller accepted this outcome. Contact pt at [phone] documented in this encounter Plan of Treatment Upcoming Encounters Date Type Department Care Team ([facility] st Contact Info) Description 01/30/2025 10:30 AM EST Clinical Support [facility] MED & PEDS 505 [place] [address] Fariba Gandhi, HUGO 505 [place] [address] documented as of this encounter Visit Diagnoses Not on filedocumented in this encounter Additional Health Concerns Assessment Noted Time PHQ-9 Depression Total Score: 6 08/22/19 25 10:16 AM EDT documented as of this encounter Care Teams Pattern Assembler Relationship Specialty Start Date End Date Carlo Santana MD 505 [place] [address] PCP - General Internal Medicine 12/28/17 documented as of this encounter
--- OUTSIDE RECORDS SUMMARY | 2025-01-17 16:58 | XMS_ITS | Encounter Summary ---
Author Organization [employer] Address [address] [facility] [address] 7t [place] [address] Care Team Providers Care Mink Rancher Name Role Phone Carlo Santana MD Primary Care Provider [phone] Reason for Visit * Reason Comments Med Refill Encounter Details Date Type Department Care Team ([facility] st Contact Info) Description 12/14/2024 Refill [facility] MED & PEDS [address] [place], [place] [phone] Oneal Liu MD 230 [place] [address] Social History Tobacco Use Types Packs/Day Years [...] ([facility] st Contact Info) Description 01/30/2025 10:30 AM EST Clinical Support [facility] MED & PEDS 505 [place] [address] Fariba Gandhi, HUGO 505 [place] [address] documented as of this encounter Visit Diagnoses Not on filedocumented in this encounter Additional Health Concerns Assessment Noted Time PHQ-9 Depression Total Score: 6 08/22/19 25 10:16 AM EDT documented as of this encounter Care Teams Mink Rancher Relationship Specialty Start Date End Date Carlo Santana MD 505 [place] [address] PCP - General Internal Medicine 12/28/17 documented as of this encounter
--- OUTSIDE RECORDS SUMMARY | 2025-01-17 16:58 | XMS_ITS | Encounter Summary ---
Author Organization [employer] Address [address] [place] [address] 7t [place] [address] Care Team Providers Care Engraver Machine Name Role Phone Carlo Santana MD Primary Care Provider [phone] Reason for Visit * Reason Onset Date Comments PA 01/31/2024 Encounter Details Date Type Department Care Team ([facility] Contact Info) Description 01/31/2024 [facility]phone [facility] 505 [place] [address] Carlo Santana MD 505 [place] [address] PA Social History Tobacco Use Types Packs/Day [...] ([facility] st Contact Info) Description 01/30/2025 10:30 AM EST Clinical Support [facility] MED & [facility]EDS 505 [place] [address] Fariba Gandhi RN 505 [place] [address] documented as of this encounter Visit Diagnoses Not on filedocumented in this encounter Additional Health Concerns Assessment Noted Time PHQ-9 Depression Total Score: 15 024 11:50 AM EST documented as of this encounter Care Teams Engraver Machine Relationship Specialty Start Date End Date Carlo Santana MD 505 [place] [address] PCP - General Internal Medicine 12/28/17 documented as of this encounter
--- OUTSIDE RECORDS SUMMARY | 2025-01-17 16:58 | XMS_ITS | Encounter Summary ---
Author Organization [employer] Address [address] [facility] 7t [place] [address] Care Team Providers Care Sales Director Name Role Phone Carlo Santana MD Primary Care Provider [phone] Reason for Visit * Reason Onset Date Comments Med Change Request 09/14/2023 Encounter Details Date Type Department Care Team ([facility] Contact Info) Description 09/14/2023 Telephone [facility] MED & PEDS 505 [place] [address] Carlo Santana MD 505 [place] [address] Med Change Request Social History Tobacco Use [...] in the morning. Please contact pt at [phone] documented in this encounter Plan of Treatment Upcoming Encounters Date Type Department Care Team (Late st Contact Info) Description 01/30/2025 10:30 AM EST Clinical Support [facility] CHC MED & PEDS 505 [place] [address] Fariba Gandhi, HUGO 505 [place] [address] documented as of this encounter Visit Diagnoses Not on filedocumented in this encounter Additional Health Concerns Assessment Noted Time PHQ-9 Depression Total Score: 3 06/04/19 23 3:42 PM EDT documented as of this encounter Care Teams Sales Director Relationship Specialty Start Date End Date Carlo Santana MD 505 [place] [address] PCP - General Internal Medicine 12/28/17 documented as of this encounter
--- OUTSIDE RECORDS SUMMARY | 2025-01-17 16:58 | XMS_ITS | Encounter Summary ---
Author Organization [employer] Address 75 [facility] 7t [place] [address] Care Team Providers Care Director Of Catering Sales Name Role Phone Carlo Santana MD Primary Care Provider [phone] Encounter Details Date Type Department Care Team ([facility] st Contact Info) Description 04/03/2024 Telephone [facility] MEDICINE 230 [place] [address] Carlo Santana MD 505 [place], [place] [phone] Social History Tobacco Use Types Packs/Day Years [...] Description 01/30/2025 10:30 AM EST Clinical Support [facility] MED & PEDS 505 [place] [address] Fariba Gandhi, HUGO 505 [place] [address] documented as of this encounter Visit Diagnoses Not on filedocumented in this encounter Additional Health Concerns Assessment Noted Time PHQ-9 Depression Total Score: 15 024 11:50 AM EST documented as of this encounter Care Teams Director Of Catering Sales Relationship Specialty Start Date End Date Carlo Santana MD 505 [place] [address] PCP - General Internal Medicine 12/28/17 documented as of this encounter
--- OUTSIDE RECORDS SUMMARY | 2025-01-17 16:58 | XMS_ITS | Encounter Summary ---
Author Organization [employer] Address 75 [facility] 7t [place] [address] Care Team Providers Care Business Operations Consultant Name Role Phone Carlo Santana MD Primary Care Provider [phone] Reason for Visit * Reason Onset Date Comments Prior Authorization 12/29/2023 Encounter Details Date Type Department Care Team ([facility] st Contact Info) Description 12/29/2023 Telephone [facility] MEDICINE 230 [place] [address] Carlo Santana MD 505 [place], [place] [phone] Prior Authorization Social History Tobacco Use Types [...] from pt stating she was informed by [facility] pharmacy that oxyCODONE-acetaminophen (Percocet) 7.5-325MG tablet needs a PA. If any questions for the pt you can contact them at [phone]. documented in this encounter Plan of Treatment Upcoming Encounters Date Type Department Care Team (Late st Contact Info) Description 01/30/2025 10:30 AM EST Clinical Support [facility] MED & PEDS 505 [place] [address] Fariba Gandhi, HUGO 505 [place] [address] documented as of this encounter Visit Diagnoses Not on filedocumented in this encounter Additional Health Concerns Assessment Noted Time PHQ-9 Depression Total Score: 3 06/04/19 23 3:42 PM EDT documented as of this encounter Care Teams Business Operations Consultant Relationship Specialty Start Date End Date Carlo Santana MD 505 [place] [address] PCP - General Internal Medicine 12/28/17 documented as of this encounter
--- OUTSIDE RECORDS SUMMARY | 2025-01-17 16:58 | XMS_ITS | Encounter Summary ---
Author Organization [employer] Address [address] [facility] 7t [place] [address] Care Team Providers Care Skin Lifter Bacon Name Role Phone Carlo Santana MD Primary Care Provider [phone] Reason for Visit * Reason Onset Date Comments Medication Question 01/31/2024 Encounter Details Date Type Department Care Team ([facility] Contact Info) Description 01/31/2024 Telephone [facility] CHC MED & PEDS 505 [place] [address] Carlo Santana MD 505 [place] [address] Medication Question Social History Tobacco Use Types [...] Mayorga LPN - 01/31/2024 10:10 AM EST Log Buyer communicated with the patient's insurance provider, who indicated that prior authorization is not required. Oxycodone was discontinued because the patient received a prescription for acetaminophen 600 mg from another physician's office on January 25, 2024. I requested that the [facility] nurse join this discussion to ensure she is informed about the patient's situation. The insurance expressed concerns regarding the patient's liver health due to the use of these medications. An override for Oxycodone was granted; however, it was noted that it will be revoked if the patient continuesto use this medication (acetaminophen 600 mg). This information is being shared with both the CONCRETE BOOM OPERATOR nurse and the primary care physician to [...] [facility] Description 01/30/2025 10:30 AM EST Clinical Support [facility] CH[facility] MED & PEDS 505 [place] [address] Fariba Gandhi RN 505 [place] [address] documented as of this encounter Visit Diagnoses Not on filedocumented in this encounter Additional Health Concerns Assessment Noted Time PHQ-9 Depression Total Score: 15 024 11:50 AM EST documented as of this encounter Care Teams Skin Lifter Bacon Relationship Specialty Start Date End Date Carlo Santana MD 505 [place] [address] PCP - General Internal Medicine 12/28/17 documented as of this encounter
--- OUTSIDE RECORDS SUMMARY | 2025-01-17 16:58 | XMS_ITS | Encounter Summary ---
Author Organization [employer] Address 75 [facility] 7t [place] [address] Care Team Providers Care Hair Preparer Name Role Phone Carlo Santana MD Primary Care Provider [phone] Reason for Visit * Reason Comments Med Refill Encounter Details Date Type Department Care Team ([facility] Contact Info) Description 11/13/[address] [facility] CHC MED & PEDS 505 [place], [place] [phone] Carlo Santana MD 505 [place] [address] Chronic left-sided low back pain with left-sided [...] Description 01/30/2025 10:30 AM EST Clinical Support [facility] MED & PEDS 505 [place] [address] Fariba Gandhi, HUGO 505 [place] [address] documented as of this encounter Visit Diagnoses Diagnosis Chronic left-sided low back pain with left-sided sciatica documented in this encounter Additional Health Concerns Assessment Noted Time PHQ-9 Depression Total Score: 6 08/22/19 25 10:16 AM EDT documented as of this encounter Care Teams Hair Preparer Relationship Specialty Start Date End Date Carlo Santana MD 505 [place] [address] PCP - General Internal Medicine 12/28/17 documented as of this encounter
--- OUTSIDE RECORDS SUMMARY | 2025-01-17 16:58 | XMS_ITS | Encounter Summary ---
Author Organization [employer] Address [address] [facility] [address] 7t [place] [address] Care Team Providers Care Chief Nuclear Medicine Technologist Name Role Phone Carlo Santana MD Primary Care Provider [phone] Reason for Visit * Reason Onset Date Comments Medication Question 12/28/2023 Encounter Details Date Type Department Care Team ([facility] st Contact Info) Description 12/28/2023 Telephone [facility] MEDICINE 230 [place] [address] Carlo Santana MD 505 [place], [place] [phone] Medication Question Social History Tobacco Use Types [...] any questions you can contact pt at [phone]. documented in this encounter Plan of Treatment Upcoming Encounters Date Type Department Care Team ([facility] st Contact Info) Description 01/30/2025 10:30 AM EST Clinical Support [facility] MED & PEDS 505 [place] [address] Fariba Gandhi RN 505 [place] [address] documented as of this encounter Visit Diagnoses Not on filedocumented in this encounter Additional Health Concerns Assessment Noted Time PHQ-9 Depression Total Score: 3 06/04/19 23 3:42 PM EDT documented as of this encounter Care Teams Chief Nuclear Medicine Technologist Relationship Specialty Start Date End Date Carlo Santana MD 505 [place] [address] PCP - General Internal Medicine 12/28/17 documented as of this encounter
--- OUTSIDE RECORDS SUMMARY | 2025-01-17 16:58 | XMS_ITS | Encounter Summary ---
Author Organization [employer] Address [address] [facility] 7t [place] [address] Care Team Providers Care Supplemental Nurse Name Role Phone Carlo Santana MD Primary Care Provider [phone] Reason for Visit * Reason Onset Date Comments Prior Authorization 09/02/2023 Encounter Details Date Type Department Care Team ([facility] Contact Info) Description 09/02/2023 Telephone [facility] CH[facility] MED & PEDS 505 [place] [address] Carlo Santana MD 505 [place] [address] Prior Authorization Social History Tobacco Use Types [...] Description 01/30/2025 10:30 AM EST Clinical Support [facility] MED & PEDS 505 [place] [address] Fariba Gandhi, RN 505 [place] [address] documented as of this encounter Visit Diagnoses Diagnosis Bipolar affective disorder, remission status unspecified (CMS/HCC) (HCC) documented in this encounter Additional Health Concerns Assessment Noted Time PHQ-9 Depression Total Score: 3 06/04/19 23 3:42 PM EDT documented as of this encounter Care Teams Supplemental Nurse Relationship Specialty Start Date End Date Carlo Santana MD [address] [place] [address] PCP - General Internal Medicine 12/28/17 documented as of this encounter
--- OUTSIDE RECORDS SUMMARY | 2025-01-17 16:58 | XMS_ITS | Encounter Summary ---
Author Organization [employer] Address [address] [place] [address] 7t [place] [address] Care Team Providers Care Online Marketing Specialist Name Role Phone Carlo Santana MD Primary Care Provider [phone] Reason for Visit * Reason Onset Date Comments Referral 12/13/2024 Encounter Details Date Type Department Care Team ([facility] Contact Info) Description 12/13/2024 Telephone [facility] MED & PEDS [address] [place] [address] Carlo Santana MD 505 [place] [address] Referral Social History Tobacco Use Types Packs/Day [...] EDT Tc from pt requesting referral to [facility] [address] [facility] [address] Contact pt at [phone] documented in this encounter Plan of Treatment Upcoming Encounters Date Type Department Care Team ([facility] st Contact Info) Description 01/30/2025 10:30 AM EST Clinical Support [facility] CHC MED & PEDS 505 [place] [address] Fariba Gandhi, HUGO 505 [place] [address] documented as of this encounter Visit Diagnoses Not on filedocumented in this encounter Additional Health Concerns Assessment Noted Time PHQ-9 Depression Total Score: 6 08/22/19 25 10:16 AM EDT documented as of this encounter Care Teams Online Marketing Specialist Relationship Specialty Start Date End Date Carlo Santana MD 505 [place] [address] PCP - General Internal Medicine 12/28/17 documented as of this encounter
--- OUTSIDE RECORDS SUMMARY | 2025-01-17 16:58 | XMS_ITS | Encounter Summary ---
Author Organization [employer] Address [address] [place] [address] 7 [place] [address] Care Team Providers Care Director Of Programming Name Role Phone Carlo Santana MD Primary Care Provider [phone] Reason for Referral * Consultation (Routine) - Closed Specialty Diagnoses / Procedures Referred By Contac t Referred To Contact Pain Medicine Diagnoses Chronic left-sided low back pain with left-sided sciatica Carlo Santana MD 505 [place] [address] Phone: tel: fax: Referral ID Status Reason Start Date Expiration Date V isits Requested Visits Authorized [id number] Closed Specialty Services Required 12/14/2024 12/14/2025 1 1 Encounter Details Date Type Department Care Team ([facility] st Contact Info) Description 12/14/2024 Orders Only [facility] CHC MED & PEDS 505 [place] [address] Carlo Santana MD 505 [place] [address] Chronic left-sided low back pain with left-sided [...] Upcoming Encounters Date Type Department Care Team ([facility] st Contact Info) Description 01/30/2025 10:30 AM EST Clinical Support [facility] CHC MED & PEDS 505 [place] [address] Fariba Gandhi, HUGO 505 [place] [address] Scheduled Referrals Name Type Priority Associated Diagnoses [...] of this encounter Care Teams Director Of Programming Relationship Specialty Start Date End Date Carlo Santana MD [address] [place] [address] PCP - General Internal Medicine 12/28/17 documented as of this encounter
--- OUTSIDE RECORDS SUMMARY | 2025-01-17 16:58 | XMS_ITS | Encounter Summary ---
Author Organization [employer] Address [address] [facility] 7t [place] [address] Care Team Providers Care Buttonhole Marker Name Role Phone Carlo Santana MD Primary Care Provider [phone] Reason for Visit * Reason Onset Date Comments Med Refill 09/14/2023 Encounter Details Date Type Department Care Team ([facility] Contact Info) Description 09/14/2023 Telephone [facility] MED & PEDS [address] [place] [address] Carlo Santana MD 505 [place] [address] Med Refill Social History Tobacco Use Types [...] 5 % patch To be sent to: [facility]/pharmacy #[id number] - [place] PHILLIPS - [address] [facility] documented in this encounter Plan of Treatment Upcoming Encounters Date Type Department Care Team (Late st Contact Info) Description 01/30/2025 10:30 AM EST Clinical Support [facility] MED & PEDS [address] [place] [address] Fariba Gandhi, HUOG 505 [place] [address] documented as of this encounter Visit Diagnoses Not on filedocumented in this encounter Additional Health Concerns Assessment Noted Time PHQ-9 Depression Total Score: 3 06/04/19 23 3:42 PM EDT documented as of this encounter Care Teams Buttonhole Marker Relationship Specialty Start Date End Date Carlo Santana MD [address] [place] [address] PCP - General Internal Medicine 12/28/17 documented as of this encounter
--- OUTSIDE RECORDS SUMMARY | 2025-01-17 16:58 | XMS_ITS | Encounter Summary ---
Author Organization [employer] Address [address] [place] [address] 7 [place] [address] Care Team Providers Care Cupola Operator Insulation Name Role Phone Carlo Santana MD Primary Care Provider [phone] Reason for Referral * Imaging (Routine) - Closed Specialty Diagnoses / Procedures Referred By Contac t Referred To Contact Radiology Diagnoses Transaminitis Procedures US Abdomen Complete Carlo Santana MD 505 [place] [address] Phone: tel: fax: [address] Phone: tel: fax: Referral ID Status Reason Start Date Expiration Date Visits Re quested Visits Authorized [id number] Closed 03/23/2024 03/23/2025 1 1 Reason for Visit * Reason Comments Med Refill Encounter Details Date Type Department Care Team (Late st Contact Info) Description 03/21/2024 Refill [facility] CHC MED & PEDS [address] [place] [address] Carlo Santana MD 505 [place] [address] Chronic left-sided low back pain with left-sided [...] [facility] st Contact Info) Description 01/30/2025 10:30 AM EST Clinical Support [facility] CH[facility] MED & PEDS [address] [place] [address] Fariba Gandhi RN 505 [place] [address] Scheduled Orders Name Type Priority Associated Diagnoses [...] documented as of this encounter Care Teams Cupola Operator Insulation Relationship Specialty Start Date End Date Carlo Santana MD 505 [place] [address] PCP - General Internal Medicine 12/28/17 documented as of this encounter
--- OUTSIDE RECORDS SUMMARY | 2025-01-17 16:58 | XMS_ITS | Encounter Summary ---
Author Organization [employer] Address [address] [place] [address] 7t [place] [address] Care Team Providers Care Surgical Appliances Salesperson Name Role Phone Carlo Santana MD Primary Care Provider [phone] Reason for Visit * Reason Comments Med Refill Encounter Details Date Type Department Care Team ([facility] Contact Info) Description 11/11/2024 Refill [facility] MED & PEDS [address] [place], [place] [phone] Carlo Santana MD 505 [place], [place] [phone] Chronic left shoulder pain; Muscle spasm Social [...] ([facility] st Contact Info) Description 01/30/2025 10:30 AM EST Clinical Support [facility] MED & PEDS [address] [place] [address] Fariba Gandhi, HUGO 505 [place] [address] documented as of this encounter Visit Diagnoses Diagnosis Chronic left shoulder pain Pain in joint, shoulder region Muscle spasm Spasm of muscle documented in this encounter Additional Health Concerns Assessment Noted Time PHQ-9 Depression Total Score: 6 08/22/19 25 10:16 AM EDT documented as of this encounter Care Teams Surgical Appliances Salesperson Relationship Specialty Start Date End Date Carlo Santana MD [address] [place] [address] PCP - General Internal Medicine 12/28/17 documented as of this encounter
--- OUTSIDE RECORDS SUMMARY | 2025-01-17 16:58 | XMS_ITS | Encounter Summary ---
Author Organization [employer] Address [address] [facility] 7t [place] [address] Care Team Providers Care Gum Machine Operator Name Role Phone Carlo Santana MD Primary Care Provider [phone] Reason for Visit * Reason Onset Date Comments Nurse Triage 03/21/2024 Encounter Details Date Type Department Care Team ([facility] st Contact Info) Description 03/21/2024 Telephone [facility] MEDICINE [address] [place] [address] Carlo Santana MD 505 [place], [place] [phone] Nurse Triage Social History Tobacco Use Types [...] EST Triage call 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 documented in this encounter Plan of Treatment Upcoming Encounters Date Type Department Care Team (Late st Contact Info) Description 01/30/2025 10:30 AM EST Clinical Support [facility] MED & PEDS 505 [place] [address] Fariba Gandhi RN 505 [place] [address] documented as of this encounter Visit Diagnoses Diagnosis Acute pain of both shoulders documented in this encounter Additional Health Concerns Assessment Noted Time PHQ-9 Depression Total Score: 15 024 11:50 AM EST documented as of this encounter Care Teams Gum Machine Operator Relationship Specialty Start Date End Date Carlo Santana MD 505 [place] [address] PCP - General Internal Medicine 12/28/17 documented as of this encounter
--- OUTSIDE RECORDS SUMMARY | 2025-01-17 16:58 | XMS_ITS | Encounter Summary ---
Author Organization [employer] Address [address] [facility] 7t [place] [address] Care Team Providers Care Airplane Designer Name Role Phone Carlo Santana MD Primary Care Provider [phone] Reason for Visit * Reason Onset Date Comments Med Refill 11/19/2024 Encounter Details Date Type Department Care Team ([facility] Contact Info) Description 11/19/2024 Telephone [facility] [address] [place] [address] Carlo Santana MD [address] [place] [address] Med Refill Social History Tobacco Use Types [...] 9:01 AM EDT Medication was sent to [facility] on 11/13/24 with 3 refills. * Telephone Encounter - Francesca Solares - 11/19/2024 8:59 AM EDT TC from pt requesting medication refill. Medications needing refill : tiZANidine (Zanaflex) 4 MG tablet To be sent to: [facility] - LEATHA Leblanc - [address] documented in this encounter Plan of Treatment Upcoming Encounters Date Type Department Care Team (Late st Contact Info) Description 01/30/2025 10:30 AM EST Clinical Support [facility] [address] [place] [address] Fariba Gandhi, RN [address] [place] [address] documented as of this encounter Visit Diagnoses Not on filedocumented in this encounter Additional Health Concerns Assessment Noted Time PHQ-9 Depression Total Score: 6 08/22/19 25 10:16 AM EDT documented as of this encounter Care Teams Airplane Designer Relationship Specialty Start Date End Date Carlo Santana MD [address] [place] [address] PCP - General Internal Medicine 12/28/17 documented as of this encounter
--- OUTSIDE RECORDS SUMMARY | 2025-01-17 16:58 | XMS_ITS | Encounter Summary ---
Author Organization [employer] Address 75 [facility] 7t [place] [address] Care Team Providers Care Cellular Plastics Cutter Name Role Phone Carlo Santana MD Primary Care Provider [phone] Encounter Details Date Type Department Care Team ([facility] st Contact Info) Description 01/06/2024 Orders Only [facility] & PEDS [address] [place], [place] [phone] Carlo Santana MD 505 [place], [place] [phone] Diarrhea, unspecified type (Primary Dx); Chronic left-sided [...] 10:30 AM EST Clinical Support [facility] MED & PEDS [address] [place] [address] Fariba Gandhi RN 505 [place] [address] Scheduled Orders Name Type Priority Associated Diagnoses [...] Protein <0.10 < or = 0.50 mg/dL [facility] Blood Venous blood specimen / Unknown 01/06/2024 1:18 PM EDT 01/06/2024 2:16 PM EDT us Carlo Santana MD LAB BLOOD ORDERABLES Final Result [facility] [address] [place] [address] [phone] documented in this encounter Visit Diagnoses Diagnosis Diarrhea, unspecified type- Primary Chronic left-sided low back pain with left-sided sciatica documented in this encounter Additional Health Concerns Assessment Noted Time PHQ-9 Depression Total Score: 3 06/04/19 23 3:42 PM EDT documented as of this encounter Care Teams Cellular Plastics Cutter Relationship Specialty Start Date End Date Carlo Santana MD [address] [place] [phone] PCP - General Internal Medicine 12/28/17 documented as of this encounter
--- OUTSIDE RECORDS SUMMARY | 2025-01-17 16:58 | XMS_ITS | Encounter Summary ---
Author Organization [email or web address] Address [address] [facility] 7t [place] [address] Care Team Providers Care Supervisor Assembly And Packing Name Role Phone Carlo Santana MD Primary Care Provider [phone] Reason for Visit * Reason Onset Date Comments Prior Authorization 02/07/2024 Encounter Details Date Type Department Care Team ([facility] st Contact Info) Description 02/07/2024 Telephone [facility] MED[facility] [address] [place] [address] Carlo Santana MD 505 [place], [place] [phone] Prior Authorization Social History Tobacco Use Types [...] Description 01/30/2025 10:30 AM EST Clinical Support [facility] 505 [place] [address] Fariba Gandhi RN 505 [facility] [place] [address] documented as of this encounter Visit Diagnoses Not on filedocumented in this encounter Additional Health Concerns Assessment Noted Time PHQ-9 Depression Total Score: 15 024 11:50 AM EST documented as of this encounter Care Teams Supervisor Assembly And Packing Relationship Specialty Start Date End Date Carlo Santana MD [address] [place] [address] PCP - General Internal Medicine 12/28/17 documented as of this encounter
--- OUTSIDE RECORDS SUMMARY | 2025-01-17 16:58 | XMS_ITS | Encounter Summary ---
Author Organization [employer] Address [address] [facility] 7t [place] [address] Care Team Providers Care Cook Boat Name Role Phone Carlo Santana MD Primary Care Provider [phone] Reason for Visit * Reason Onset Date Comments Med Refill 07/30/2024 Encounter Details Date Type Department Care Team ([facility] st Contact Info) Description 07/30/2024 Telephone [facility] [address] [place] [address] Carlo Santana MD 505 [place], [place] [phone] Med Refill Social History Tobacco Use Types [...] 5 % ointment To be sent to: [facility]/pharmacy #[id number] LEATHA PHILLIPS - [address] [facility] documented in this encounter Plan of Treatment Upcoming Encounters Date Type Department Care Team ([facility] st Contact Info) Description 01/30/2025 10:30 AM EST Clinical Support [facility] MED & PEDS 505 [place] [address] Fariba Gandhi, RN 505 [place] [address] documented as of this encounter Visit Diagnoses Not on filedocumented in this encounter Additional Health Concerns Assessment Noted Time PHQ-9 Depression Total Score: 15 024 11:50 AM EST documented as of this encounter Care Teams Cook Boat Relationship Specialty Start Date End Date Carlo Santana MD [address] [place] [address] PCP - General Internal Medicine 12/28/17 documented as of this encounter
--- OUTSIDE RECORDS SUMMARY | 2025-01-17 16:58 | XMS_ITS | Encounter Summary ---
Author Organization [employer] Address [address] [facility] [address] 7t [place] [address] Care Team Providers Care Automotive Exhaust Emissions Technician Name Role Phone aCrlo Santana MD Primary Care Provider [phone] Reason for Visit * Reason Onset Date Comments Results 01/03/2024 Encounter Details Date Type Department Care Team ([facility] st Contact Info) Description 01/03/2024 Telephone [facility] MEDICINE [address] [place] [address] Carlo Santana MD [address] [facility] [address] [place], [place] [phone] Results Social History Tobacco Use Types Packs/Day [...] borderline values. THIS TEST WAS PERFORMED AT: [facility] [address] [place] [address] CHERYL MOLINA MD,PHD,BATSHEVA Dr. Santana, This is the results found on TRUECar for pt recent Calprotectin stool testing. Pt would like a call back with the interpretation of the results. * Telephone Encounter - Quan Mena - 01/03/2024 11:01 AM EDT TC from pt requesting call back regarding Results. Type of results: Labs Date when done: 12/24/23 Facility: [facility] labs documented in this encounter Plan of Treatment Upcoming Encounters Date Type Department Care Team (Late st Contact Info) Description 01/30/2025 10:30 AM EST Clinical Support [facility] & [facility]EDS [address] [place] [address] Fariba Gandhi RN 505 [place] [address] documented as of this encounter Visit Diagnoses Not on filedocumented in this encounter Additional Health Concerns Assessment Noted Time PHQ-9 Depression Total Score: 3 06/04/19 23 3:42 PM EDT documented as of this encounter Care Teams Automotive Exhaust Emissions Technician Relationship Specialty Start Date End Date Carlo Santana MD 505 [place] [address] PCP - General Internal Medicine 12/28/17 documented as of this encounter
--- OUTSIDE RECORDS SUMMARY | 2025-01-17 16:59 | XMS_ITS | Encounter Summary ---
Author Organization [employer] Address [address] [facility] [address] 7t [place] [address] Care Team Providers Care Fleet Dispatch Manager Name Role Phone Carlo Santana MD Primary Care Provider [phone] Reason for Visit * Reason Comments Med Refill Encounter Details Date Type Department Care Team ([facility] st Contact Info) Description 10/26/2024 Refill [facility] [address] [place] [address] Carlo Santana MD [address] [place], [place] [phone] Chronic left-sided low back pain with left-sided [...] 10:30 AM EST Clinical Support [facility] MED & PEDS 505 [place] [address] Fariba Gandhi, HUGO [address] [place] [address] documented as of this encounter Visit Diagnoses Diagnosis Chronic left-sided low back pain with left-sided sciatica documented in this encounter Additional Health Concerns Assessment Noted Time PHQ-9 Depression Total Score: 6 08/22/19 25 10:16 AM EDT documented as of this encounter Care Teams Fleet Dispatch Manager Relationship Specialty Start Date End Date Carlo Santana MD [address] [place] [address] PCP - General Internal Medicine 12/28/17 documented as of this encounter
--- OUTSIDE RECORDS SUMMARY | 2025-01-17 16:59 | XMS_ITS | Encounter Summary ---
Author Organization [employer] Address [address] [place] [address] 7 [place] [address] Care Team Providers Care Edger Feeder Name Role Phone Carlo Santana MD Primary Care Provider [phone] Reason for Referral * Imaging (Routine) - Closed Specialty Diagnoses / Procedures Referred By Contac t Referred To Contact Diagnoses Right ovarian cyst Procedures Us Pelvis complete Carlo Santana MD [address] [place] [address] Phone: tel: fax: [address] Phone: tel: fax: Referral ID Status Reason Start Date Expiration Date Visits Re quested Visits Authorized [id number] Closed 07/08/2022 01/04/2023 1 1 * Imaging (Routine) - Closed Specialty Diagnoses / Procedures Referred By Contac t Referred To Contact Diagnoses Right ovarian cyst Procedures US Pelvis Transvaginal Carlo Santana MD [address] [place] [address] Phone: tel: fax: [address] Phone: tel: fax: Referral ID Status Reason Start Date Expiration Date Visits Re quested Visits Authorized [id number] Closed 07/08/2022 01/04/2023 1 1 Encounter Details Date Type Department Care Team ([facility] Contact Info) Description 07/08/2022 Orders Only [facility] MED & PEDS [address] [place] [address] Carlo Santana MD [address] [place] [address] Right ovarian cyst (Primary Dx) Social History [...] Upcoming Encounters Date Type Department Care Team ([facility] Contact Info) Description 01/30/2025 10:30 AM EST Clinical Support [facility] MED [facility] PEDS [address] [place] [address] Fariba Gandhi, HUGO 505 [place] [address] Scheduled Orders Name Type Priority Associated Diagnoses [...] Anti Nuclear Antibody Screen POSITIV E(A) NEGATIVE [facility] Comment:TRUDY IFA is a first l ine screen for detecting thepresence of up to approximately 150 autoantibodies invarious autoimmune diseases. A positive TRUDY IFA resultis suggestive of autoimmune disease and reflexes totiter and pattern. Further laboratory testing may beconsidered if clinically indicated.For additional information, please refer tohttp://education.Incap/faq/LAH383(This link is being provided for informational/educational purposes only.) TRUDY Titer 1:640(A ) titer [facility] Comment:Reference Range <1:4 0 Negative 1:40-1:80 Low Antibody Level >1:80 Elevated Antibody Level TRUDY Pattern Nuclear , Homogen eous(A) [facility] Comment:Homogeneous pattern is associated with systemic lupuserythematosus (SLE), drug-induced lupus and juvenileidiopathic arthritis.AC-1: HomogeneousInternational Consensus on TRUDY Patterns(https://doi.org/10.1515/auhc-6917-3375)THIS TEST WAS PERFORMED AT:[facility] [place] [address]- [address]LIBRA HUTTON MD TRUDY Titer 2 TNP [facility] TRUDY Pattern 2 TNP [facility] TRUDY TITER 3 TNP [facility] TRUDY PATTERN 3 TNP [facility] 07/08/2022 11:3 7 AM EDT 07/08/2022 11:37 AM EDT [facility] External Provider LAB BLO OD ORDERABLES Final Result Performing Organization Address City/[facility] Co de Phone Number [facility] [address] [place] [phone] * Sed Rate by Modified Magdalene (07/08/2022 11:37 AM EDT) Erythrocyte Sedimentation Rate 6 0 - 20 MM/HR [facility] Comment:Patients with polycy themia and many hemoglobin abnormalitiesmay have depressed sed rates whereas patients with anemiamay have elevated sed rates. 07/08/2022 11:3 7 AM EDT 07/08/2022 11:37 AM EDT [facility] External Provider LAB BLO OD ORDERABLES Final Result Performing Organization Address [facility] Co de Phone Number [facility] [address] [place] [phone] * APTT (07/08/2022 11:37 AM EDT) Partial Thromboplastin Time 30.5 26.0 - 36.4 SEC [facility] 07/08/2022 11:3 7 AM EDT 07/08/2022 11:37 AM EDT [facility] External Provider LAB BLO OD ORDERABLES Final Result Performing Organization Address [facility] Co de Phone Number [facility] [address] [place] [phone] * Prothrombin Time-INR (07/08/2022 11:37 AM EDT) [facility] Prothrombin Time 11.8 10.0 - 13.1 SEC [facility] INTERNATIONAL NORM RATIO 1.0 0.9 - 1.1 [facility] Comment:INTERNATIONAL NORMAL IZED RATIO (INR) [...] AM EDT 07/08/2022 11:37 AM EDT us [facility] External Provider LAB BLO OD ORDERABLES Final Result Performing Organization Address City/State/[facility] Co de Phone Number [facility] [address] [place] [phone] * (ABNORMAL) CBC auto differential (07/08/2022 11:37 AM EDT) [facility] White Blood Count 9.3 4.8 - 10.8 X10*3/uL [facility] Red Blood Count 4.52 4.20 - 5.50 X10*6/uL [facility] Hemoglobin 14.3 12.0 - 16.0 g/dl [facility] Hematocrit 42.3 37.0 - 47.0 % [facility] Mean Corpuscular Volume 93.6 80.0 - 98.0 fL [facility] Mean Corpuscular Hemoglobin 31.6 27.0 - 33.0 pg [facility] Mean Corpuscular HGB Conc 33.8 31.0 - 35.0 g/dl [facility] Red Cell Distribution Width 12.4 11.0 - 16.0 % [facility] Platelet Count 260 160 - 400 X10*3/uL [facility] Mean Platelet Volume 11.0 9.4 - 12.3 fL [facility] Neutrophils Percent Auto 67.8 45 - 73 % [facility] Imm Gran Pct Auto 0.4 0.0 - 0.4 % [facility] Lymphocytes Percent Auto 24.9 20 - 40 % [facility] Monocytes Percent Auto 5.5 2 - 11 % [facility] Eosinophils Percent Auto 0.8 0 - 4 % [facility] Basophils Percent Auto 0.6 0 - 2 % [facility] NRBC Pct Auto 0.0 0.0 - 0.2 /100WBC [facility] Neutrophils Absolute Auto 6.3 2.0 - 8.3 x10*3/uL [facility] Imm Gran Abs Auto 0.04(H) 0.00 - 0.03 X10*3/uL [facility] Lymphocytes Absolute Auto 2.3 1.2 - 4.9 X10*3/uL [facility] Monocytes Absolute Auto 0.5 0.1 - 1.2 X10*3/uL [facility] Eosinophils Absolute Auto 0.1 0.0 - 0.4 X10*3/uL [facility] Basophils Absolute Auto 0.1 0.0 - 0.2 X10*3/uL [facility] NRBC Abs Auto 0.000 0.0 - 0.012 X10*3/uL [facility] 07/08/2022 11:3 7 AM EDT 07/08/2022 11:37 AM EDT us [facility] External Provider LAB BLO OD ORDERABLES Final Result [facility] [address] [place] [address] [phone] documented in this encounter Visit Diagnoses Diagnosis Right ovarian cyst- Primary Other and unspecified ovarian cyst documented in this encounter Additional Health Concerns Assessment Noted Time PHQ-9 Depression Total Score: 3 06/04/19 23 3:42 PM EDT documented as of this encounter Care Teams Edger Feeder Relationship Specialty Start Date End Date Carlo Santana MD [address] [place] [address] PCP - General Internal Medicine 12/28/17 documented as of this encounter
--- OUTSIDE RECORDS SUMMARY | 2025-01-17 16:59 | XMS_ITS | Encounter Summary ---
Author Organization [employer] Address [address] [facility] 7t [place] [address] Care Team Providers Care Vehicle Check In Clerk Name Role Phone Carlo Santana MD Primary Care Provider [phone] Reason for Visit * Reason Onset Date Comments Med Refill 06/14/2024 Encounter Details Date Type Department Care Team (Late st Contact Info) Description 06/14/2024 Telephone [facility] MEDICINE [address] [place] [address] Carlo Santana MD 505 [place], [place] [phone] Med Refill Social History Tobacco Use Types [facility] Description 01/30/2025 10:30 AM EST Clinical Support [facility] & [facility]S [address] [place] [address] Fariba Gandhi RN [address] [place] [address] documented as of this encounter Visit Diagnoses Not on filedocumented in this encounter Additional Health Concerns Assessment Noted Time PHQ-9 Depression Total Score: 15 024 11:50 AM EST documented as of this encounter Care Teams Vehicle Check In Clerk Relationship Specialty Start Date End Date Carlo Santana MD [address] [place] [address] PCP - General Internal Medicine 12/28/17 documented as of this encounter
--- OUTSIDE RECORDS SUMMARY | 2025-01-17 16:59 | XMS_ITS | Encounter Summary ---
Author Organization [employer] Address [address] [facility] 7t [place] [address] Care Team Providers Care Soda Fountain Clerk Name Role Phone Carlo Santana MD Primary Care Provider [phone]- [phone] Reason for Visit * Reason Onset Date Comments Medication Question 01/25/2023 Encounter Details Date Type Department Care Team ([facility] Contact Info) Description 01/25/2023 Telephone [facility] [address] [place] [address] Carlo Santana MD [address] [place], [place] [phone] Medication Question Social History Tobacco Use Types [...] returning phone call Please contact pt at [phone] * Telephone Encounter - Rand Savage RN [...] losing any weight. Please contact pt at [phone] documented in this encounter Plan of Treatment Upcoming Encounters Date Type Department Care Team (Late st Contact Info) Description 01/30/2025 10:30 AM EST Clinical Support [facility] [address] [place] [address] Fariba Gandhi, HUGO [address] [place] [address] documented as of this encounter Visit Diagnoses Diagnosis Low back pain radiating down leg documented in this encounter Additional Health Concerns Assessment Noted Time PHQ-9 Depression Total Score: 3 06/04/19 23 3:42 PM EDT documented as of this encounter Care Teams Soda Fountain Clerk Relationship Specialty Start Date End Date Carlo Santana MD [address] [place] [address] PCP - General Internal Medicine 12/28/17 documented as of this encounter
--- OUTSIDE RECORDS SUMMARY | 2025-01-17 16:59 | XMS_ITS | Encounter Summary ---
Author Organization [employer] Address [address] [facility] 7t [place] [address] Care Team Providers Care Manager Deli Name Role Phone Carlo Santana MD Primary Care Provider [phone] Reason for Visit * Reason Comments Med Change Request Encounter Details Date Type Department Care Team ([facility] st Contact Info) Description 09/11/2024 Refill [facility] MEDICINE [address] [place] [address] Carlo Santana MD [address] [place], [place] [phone] Bipolar affective disorder, remission status unspecified (CMS/HCC) [...] Description 01/30/2025 10:30 AM EST Clinical Support [facility] MED & PEDS [address] [place] [address] Fariba Gandhi, HUGO [address] [place] [address] documented as of this encounter Visit Diagnoses Diagnosis Bipolar affective disorder, remission status unspecified (CMS/HCC) (HCC) documented in this encounter Additional Health Concerns Assessment Noted Time PHQ-9 Depression Total Score: 6 08/22/19 25 10:16 AM EDT documented as of this encounter Care Teams Manager Deli Relationship Specialty Start Date End Date Carlo Santana MD [address] [place] [address] PCP - General Internal Medicine 12/28/17 documented as of this encounter
--- OUTSIDE RECORDS SUMMARY | 2025-01-17 16:59 | XMS_ITS | Encounter Summary ---
Author Organization [employer] Address [address] [facility] 7t [place] [address] Care Team Providers Care Transportation Department Supervisor Name Role Phone Carlo Santana MD Primary Care Provider [phone] Reason for Visit * Reason Onset Date Comments Med Refill 01/14/2023 Encounter Details Date Type Department Care Team (Late st Contact Info) Description 01/14/2023 Telephone [facility] MEDICINE [address] [place] [address] Carlo Santana MD [address] [facility] [address] [place], [place] [phone] Med Refill Social History Tobacco Use Types [...] Description 01/30/2025 10:30 AM EST Clinical Support [facility]S 505 [place] [address] Fariba Gandhi, HUGO [address] [place] [address] documented as of this encounter Visit Diagnoses Not on filedocumented in this encounter Additional Health Concerns Assessment Noted Time PHQ-9 Depression Total Score: 3 06/04/19 23 3:42 PM EDT documented as of this encounter Care Teams Transportation Department Supervisor Relationship Specialty Start Date End Date Carlo Santana MD [address] [place] [address] PCP - General Internal Medicine 12/28/17 documented as of this encounter
--- OUTSIDE RECORDS SUMMARY | 2025-01-17 16:59 | XMS_ITS | Encounter Summary ---
Author Organization [employer] Address 75 [facility] 7t [place] [address] Care Team Providers Care Pad Making Machine Operator Name Role Phone Carlo Santana MD Primary Care Provider [phone] Reason for Visit * Reason Onset Date Comments Results 08/22/2024 Encounter Details Date Type Department Care Team ([facility] Contact Info) Description 08/22/2024 Telephone [facility] MEDICINE [address] [place] [address] Carlo Santana MD [address] [place], [place] [phone] Results Social History Tobacco Use Types Packs/Day [...] Lumbar Spine Date when done: 08/22 Facility: [facility] documented in this encounter Plan of Treatment Upcoming Encounters Date Type Department Care Team (Late st Contact Info) Description 01/30/2025 10:30 AM EST Clinical Support [facility] MED & PEDS 505 [place] [address] Fariba Gandhi RN 505 [place] [address] documented as of this encounter Visit Diagnoses Not on filedocumented in this encounter Additional Health Concerns Assessment Noted Time PHQ-9 Depression Total Score: 6 08/22/19 25 10:16 AM EDT documented as of this encounter Care Teams Pad Making Machine Operator Relationship Specialty Start Date End Date Carlo Santana MD [address] [place] [address] PCP - General Internal Medicine 12/28/17 documented as of this encounter
--- OUTSIDE RECORDS SUMMARY | 2025-01-17 16:59 | XMS_ITS | Encounter Summary ---
Author Organization [employer] Address 75 [facility] 7t [place] [address] Care Team Providers Care Bead Flipper Name Role Phone Carlo Santana MD Primary Care Provider [phone] Encounter Details Date Type Department Care Team ([facility] st Contact Info) Description 01/19/2023 Orders Only [facility] CHC MED & PEDS 505 [place], [place] [phone] Carlo Santana MD 505 [place], [place] [phone] Neck pain (Primary Dx); Chronic left-sided low [...] Team ([facility] st Contact Info) Description 01/30/2025 10:30 AM EST Clinical Support [facility] MED & PEDS 505 [place] [address] Fariba Gandhi, HUGO 505 [place] [address] documented as of this encounter Visit Diagnoses Diagnosis Neck pain- Primary Cervicalgia Chronic left-sided low back pain with left-sided sciatica documented in this encounter Additional Health Concerns Assessment Noted Time PHQ-9 Depression Total Score: 3 06/04/19 23 3:42 PM EDT documented as of this encounter Care Teams Bead Flipper Relationship Specialty Start Date End Date Carlo Santana MD 505 [place] [address] PCP - General Internal Medicine 12/28/17 documented as of this encounter
--- OUTSIDE RECORDS SUMMARY | 2025-01-17 16:59 | XMS_ITS | Encounter Summary ---
Author Organization [employer] Address 75 [facility] 7t [place] [address] Care Team Providers Care Lacemaker Name Role Phone Carlo Santana MD Primary Care Provider [phone] Reason for Visit * Reason Onset Date Comments Med Refill 10/30/2024 Encounter Details Date Type Department Care Team ([facility] Contact Info) Description 10/30/2024 Telephone [facility] MED & PEDS 505 [place] [address] Carlo Santana MD 505 [place] [address] Med Refill Social History Tobacco Use Types [...] 10:30 AM EST Clinical Support [facility] MED & PEDS 505 [place] [address] Fariba Gandhi, HUGO 505 [place] [address] documented as of this encounter Visit Diagnoses Not on filedocumented in this encounter Additional Health Concerns Assessment Noted Time PHQ-9 Depression Total Score: 6 06/10/20 25 10:16 AM EDT documented as of this encounter Care Teams Lacemaker Relationship Specialty Start Date End Date Carlo Santana MD [address] [place] [address] PCP - General Internal Medicine 12/28/17 documented as of this encounter
--- OUTSIDE RECORDS SUMMARY | 2025-01-17 16:59 | XMS_ITS | Encounter Summary ---
Author Organization [employer] Address 75 [facility] 7t [place] [address] Care Team Providers Care Representative Government Relations Name Role Phone Carlo Santana MD Primary Care Provider [phone] Reason for Visit * Reason Onset Date Comments Med Refill 10/26/2024 Encounter Details Date Type Department Care Team ([facility] st Contact Info) Description 10/26/2024 Telephone [facility] MEDICINE 230 [place] [address] Carlo Santana MD 505 [place], [place] [phone] Med Refill Social History Tobacco Use Types [...] (Roxicodone) 10 MG [facility]. If any questions you can contact pt at [phone]. documented in this encounter Plan of Treatment Upcoming Encounters Date Type Department Care Team (Late st Contact Info) Description 01/30/2025 10:30 AM EST Clinical Support [facility] MED & PEDS 505 [place] [address] Fariba Gandhi RN 505 [place] [address] documented as of this encounter Visit Diagnoses Not on filedocumented in this encounter Additional Health Concerns Assessment Noted Time PHQ-9 Depression Total Score: 6 08/22/19 25 10:16 AM EDT documented as of this encounter Care Teams Representative Government Relations Relationship Specialty Start Date End Date Carlo Santana MD 505 [place] [address] PCP - General Internal Medicine 12/28/17 documented as of this encounter
--- OUTSIDE RECORDS SUMMARY | 2025-01-17 16:59 | XMS_ITS | Encounter Summary ---
Author Organization [employer] Address [address] [place] [address] Care Team Providers Care Fork Lift Technician Name Role Phone Carlo Santana MD Primary Care Provider [phone] Reason for Referral * Consultation (Routine) - Closed Specialty Diagnoses / Procedures Referred By Contac t Referred To Contact Pain Medicine Diagnoses Chronic left-sided low back pain with left-sided sciatica Lumbar radiculopathy Chronic right-sided low back pain with right-sided sciatica Carlo Santana MD 505 [place] [address] Phone: tel: fax: [facility] [address] [place] [address] Phone: tel: fax: Referral ID Status Reason Start Date Expiration Date V isits Requested Visits Authorized [id number] Closed Specialty Services Required 07/29/2023 07/28/2024 1 1 Encounter Details Date Type Department Care Team ([facility] st Contact Info) Description 07/29/2023 Orders Only [facility] CHC MED & PEDS [address] [place] [address] Carlo Santana MD 505 [place] [address] Chronic left-sided low back pain with left-sided [...] 10:30 AM EST Clinical Support [facility] MED & PEDS [address] [place] [address] Fariba Gandhi RN 505 [place] [address] Scheduled Referrals Name Type Priority Associated Diagnoses [...] documented as of this encounter Care Teams Fork Lift Technician Relationship Specialty Start Date End Date Carlo Santana MD 505 [place] [address] PCP - General Internal Medicine 12/28/17 documented as of this encounter
--- OUTSIDE RECORDS SUMMARY | 2025-01-17 16:59 | XMS_ITS | Encounter Summary ---
Author Organization [employer] Address 75 [facility] 7t [place] [address] Care Team Providers Care Customer Relations Consultant Name Role Phone Carlo Santana MD Primary Care Provider [phone] Reason for Visit * Reason Onset Date Comments Appointment Request 06/04/2024 Encounter Details Date Type Department Care Team ([facility] Contact Info) Description 06/04/2024 Telephone [facility] MEDICINE 230 [place] [address] Carlo Santana MD [address] [place], [place] [phone] Appointment Request Social History Tobacco Use Types [...] R/s ppt from 05/31/24. Contact pt at [phone] documented in this encounter Plan of Treatment Upcoming Encounters Date Type Department Care Team ([facility] st Contact Info) Description 01/30/2025 10:30 AM EST Clinical Support [facility] CHC MED & PEDS 505 [place] [address] Fariba Gandhi RN 505 [place] [address] documented as of this encounter Visit Diagnoses Not on filedocumented in this encounter Additional Health Concerns Assessment Noted Time PHQ-9 Depression Total Score: 15 024 11:50 AM EST documented as of this encounter Care Teams Customer Relations Consultant Relationship Specialty Start Date End Date Carlo Santana MD [address] [place] [address] PCP - General Internal Medicine 12/28/17 documented as of this encounter
--- OUTSIDE RECORDS SUMMARY | 2025-01-17 16:59 | XMS_ITS | Encounter Summary ---
Author Organization [employer] Address 75 [facility] 7t [place] [address] Care Team Providers Care Supervisor Cutting Department Name Role Phone Carlo Santana MD Primary Care Provider [phone] Reason for Visit * Reason Onset Date Comments FYI 08/10/2023 Encounter Details Date Type Department Care Team ([facility] st Contact Info) Description 08/10/2023 Telephone [facility] MEDICINE [address] [place] [address] Carlo Santana MD 505 [place], [place] [phone] FYI Social History Tobacco Use Types Packs/Day [...] 01/30/2025 10:30 AM EST Clinical Support [facility] MED & PEDS 505 [place] [address] Fariba Gandhi, HUGO 505 [place] [address] documented as of this encounter Visit Diagnoses Not on filedocumented in this encounter Additional Health Concerns Assessment Noted Time PHQ-9 Depression Total Score: 3 06/04/19 23 3:42 PM EDT documented as of this encounter Care Teams Supervisor Cutting Department Relationship Specialty Start Date End Date Carlo Santana MD [address] [place] [address] PCP - General Internal Medicine 12/28/17 documented as of this encounter
--- OUTSIDE RECORDS SUMMARY | 2025-01-17 16:59 | XMS_ITS | Encounter Summary ---
Author Organization [employer] Address [address] [facility] [address] [address] Care Team Providers Care Virginia Line Attendant Name Role Phone Carlo Santana MD Primary Care Provider [phone] Reason for Referral * Consultation (Routine) - Authorized Specialty Diagnoses / Procedures Referred By Contac t Referred To Contact Physiatry Diagnoses History of fall Chronic left-sided low back pain with left-sided sciatica Carlo Santana MD 505 [place] [address] Phone: tel: fax: [facility] [address] Phone: tel: fax: Referral ID Status Reason Start Date Expiration Date Visits Requested Visits Authorized [id number] Authorized Specialty Services Required 08/29/2024 08/29/2025 1 1 * Neurology (Routine) - Closed Specialty Diagnoses / Procedures Referred By Contac t Referred To Contact Diagnoses History of fall Dizziness Procedures EEG awake or drowsy routine Carlo Santana MD [address] [place] [address] Phone: tel: fax: [address] Phone: tel: fax: Referral ID Status Reason Start Date Expiration Date Visits Re quested Visits Authorized [id number] Closed 08/23/2024 08/23/2025 1 1 Encounter Details Date Type Department Care Team ([facility] st Contact Info) Description 08/23/2024 Orders Only [facility] CHC MED & PEDS [address] [place] [address] Carlo Santana MD [address] [place] [address] History of fall (Primary Dx); Dizziness; Chronic [...] AM EST Clinical Support [facility] MED & PEDS 505 [place] [address] Fariba Gandhi, HUGO 505 [place] [address] Scheduled Orders Name Type Priority Associated Diagnoses [...] documented as of this encounter Care Teams Virginia Line Attendant Relationship Specialty Start Date End Date Carlo Santana MD 505 [place] [address] PCP - General Internal Medicine 12/28/17 documented as of this encounter
--- OUTSIDE RECORDS SUMMARY | 2025-01-17 16:59 | XMS_ITS | Encounter Summary ---
Author Organization [employer] Address 75 [facility] 7t [place] [address] Care Team Providers Care Garbage Collector Driver Name Role Phone Carlo Santana MD Primary Care Provider [phone] Reason for Visit * Reason Onset Date Comments Med Refill 09/17/2024 Encounter Details Date Type Department Care Team (Late st Contact Info) Description 09/17/2024 Refill [facility] MEDICINE 230 [place] [address] Carlo Santana MD 505 [place], [place] [phone] Chronic left-sided low back pain with left-sided [...] 01/30/2025 10:30 AM EST Clinical Support [facility] MED & PEDS 505 [place] [address] Fariba Gandhi, HUGO 505 [place] [address] documented as of this encounter Visit Diagnoses Diagnosis Chronic left-sided low back pain with left-sided sciatica documented in this encounter Additional Health Concerns Assessment Noted Time PHQ-9 Depression Total Score: 6 08/22/19 25 10:16 AM EDT documented as of this encounter Care Teams Garbage Collector Driver Relationship Specialty Start Date End Date Carlo Santana MD 505 [place] [address] PCP - General Internal Medicine 12/28/17 documented as of this encounter
--- OUTSIDE RECORDS SUMMARY | 2025-01-17 16:59 | XMS_ITS | Encounter Summary ---
Author Organization [employer] Address 75 [facility] 7 [place] [address] Care Team Providers Care Federal District Clerk Name Role Phone Carlo Santana MD Primary Care Provider [phone] Encounter Details Date Type Department Care Team ([facility] st Contact Info) Description 09/28/2024 Orders Only [facility] CHC MED & PEDS 505 [place], [place] [phone] Carlo Santana MD 505 [place], [place] [phone] Social History Tobacco Use Types Packs/Day Years [...] [facility] 505 [place] [address] Fariba Gandhi, HUGO 505 [place] [address] documented as of this encounter Visit Diagnoses Not on filedocumented in this encounter Additional Health Concerns Assessment Noted Time PHQ-9 Depression Total Score: 6 08/22/19 25 10:16 AM EDT documented as of this encounter Care Teams Federal District Clerk Relationship Specialty Start Date End Date Carlo Santana MD 505 [place] [address] PCP - General Internal Medicine 12/28/17 documented as of this encounter
--- OUTSIDE RECORDS SUMMARY | 2025-01-17 16:59 | XMS_ITS | Encounter Summary ---
Author Organization [employer] Address [address] [facility] 7t [place] [address] Care Team Providers Care Forder Operator Name Role Phone Carlo Santana MD Primary Care Provider [phone] Reason for Visit * Reason Onset Date Comments Call Back Request 06/21/2024 Encounter Details Date Type Department Care Team ([facility] st Contact Info) Description 06/21/2024 Telephone [facility] MEDICINE [address] [place] [address] Carlo Santana MD [address] [facility] [address] [place], [place] [phone] Call Back Request Social History Tobacco Use [...] AM EST Clinical Support [facility] MED & PEDS [address] [place] [address] Fariba Gandhi RN 505 [place] [address] documented as of this encounter Visit Diagnoses Diagnosis Chronic left-sided low back pain with left-sided sciatica documented in this encounter Additional Health Concerns Assessment Noted Time PHQ-9 Depression Total Score: 15 01/25/ 024 11:50 AM EST documented as of this encounter Care Teams Forder Operator Relationship Specialty Start Date End Date Carlo Santana MD [address] [place] [address] PCP - General Internal Medicine 12/28/17 documented as of this encounter
--- OUTSIDE RECORDS SUMMARY | 2025-01-17 16:59 | XMS_ITS | Encounter Summary ---
Author Organization [employer] Address 75 [facility] 7 [place] [address] Care Team Providers Care Extractor Puller Name Role Phone Carlo Santana MD Primary Care Provider [phone] Encounter Details Date Type Department Care Team ([facility] st Contact Info) Description 06/14/2024 Orders Only [facility] CHC MED & PEDS 505 [place], [place] [phone] Carlo Santana MD [address] [place], [place] [phone] Chronic left-sided low back pain with left-sided [...] ([facility] st Contact Info) Description 01/30/2025 10:30 AM EST Clinical Support [facility] MED & PEDS 505 [place] [address] Fariba Gandhi, RN 505 [place] [address] documented as of this encounter Procedures Procedure [...] PM EDT Narrative 06/22/2024 8:00 PM EDT [address] [address] XRay Report Signed Patient: Peri Sandy MR#: [id number] 338 : 1980 Acct:[id number] Age/Sex: 43 / F ADM Date: 06/22/24 Loc: HO.ED Attending Dr: Ordering Physician: Javier Dubois Date of Service: 06/22/24 Procedure(s): XR knee RT 4V Accession Number(s): [id number] cc: Carlo Santana MD; Javier Dubois CLINICAL [...] in OV> 06/22/241999 DD/ 57 TD/TT: 06/22/241957 Splicing Machine Operator: Procedure Note Donotuseinterpreter, Image - 06/22/[address] [address] XRay Report Signed Patient: Peri Sandy MMR#: [id number] 338 : 1980Acct:[id number] Age/Sex: 43 / FADM Date: 06/22/24 Loc: .ED Attending Dr: Ordering Physician: Javier Dubois Date of Service: 06/22/24 Procedure(s): XR knee RT 4V Accession Number(s): [id number] cc: Carlo Santana MD; Javier Dubois CLINICAL HISTORY: trauma,pain 4 view right knee Comparison: None Findings: No fractures or dislocations. No significant loss of joint space, osteophytes, or erosions. No joint effusion. No radiopaque foreign body. IMPRESSION: 1. No acute findings. This document has been electronically signed by: uLisito Goldman MD on 06/22/2024 19:58:57 Dictated By: Luisito Goldman MD Signed By: <Electronically signed by Luisito Goldman MD in OV> 06/22/241999 DD/ 57 TD/TT: 06/22/241957 Splicing Machine Operator: [facility] External Provider IMG XR PROCEDURES Edited Result - Final * CT Cervical Spine w/o Contrast (06/22/2024 7:56 PM EDT) Anatomical Region Laterality Modality Spine, C-spine Computed Tomogra phy 06/22/2024 7:56 PM EDT Narrative 06/22/2024 7:58 PM EDT [place] [address] CT Scan Report Signed Patient: Peri Sandy MR#: [id number] 338 : 1980 Acct:[id number] Age/Sex: 43 / F ADM Date: 06/22/24 Loc: HO.ED Attending Dr: Ordering Physician: Javier Dubois Date of Service: 06/22/24 Procedure(s): CT cervical spine wo IV con Accession Number(s): [id number] cc: aCrlo Santana MD; Javier Dubois Report Number: [id number]: Total DLP = 333.00 mGy-cm CLINICAL HISTORY: trauma CT cervical spine without contrast Comparison: MR/GA/SR - MR CERVICAL SPINE WO CON - [...] in OV> 06/22/241957 DD/ 55 TD/TT: 06/22/241955 Splicing Machine Operator: Procedure Note Donotuseinterpreter, Image - 06/22/[address] [address] [address] Scan Report Signed Patient: Peri Sandy MMR#: [id number] 338 : 1980Acct:[id number] Age/Sex: 43 / FADM Date: 06/22/24 Loc: HO.ED Attending Dr: Ordering Physician: Javier Dubois Date of Service: 06/22/24 Procedure(s): CT cervical spine wo IV con Accession Number(s): [id number] cc: Carlo Santana MD; Javier Dubois Report Number: [id number]: Total DLP = 333.00 mGy-cm CLINICAL HISTORY: trauma CT cervical spine without contrast Comparison: MR/GA/SR - MR CERVICAL SPINE WO CON - [...] in OV> 06/22/241957 DD/ 55 TD/TT: 06/22/241955 Splicing Machine Operator: us [facility] External Provider IMG CT PROCEDURES Edited Result - Final * XR Chest 1 View (06/22/2024 7:56 PM EDT) Anatomical Region Laterality Modality Chest Radiographic Yi ging 06/22/2024 7:56 PM EDT Narrative 06/22/2024 7:58 PM EDT [address] [address] XRay Report Signed Patient: Peri Sandy MR#: [id number] 338 : 1980 Acct:[id number] Age/Sex: 43 / F ADM Date: 06/22/24 Loc: .ED Attending Dr: Ordering Physician: Javier Dubois Date of Service: 06/22/24 Procedure(s): XR chest 1V Accession Number(s): [id number] cc: Carlo Santana MD; Javier Dubois CLINICAL [...] in OV> 06/22/241957 DD/ 55 TD/TT: 06/22/241955 Splicing Machine Operator: Procedure Note Donotuseinterpreter, Image - 06/22/2024 [place] [address] XRay Report Signed Patient: Peri Sandy MMR#: [id number] 338 : 1980Acct:[id number] Age/Sex: 43 / FADM Date: 06/22/24 Loc: .ED Attending Dr: Ordering Physician: Javier Dubois Date of Service: 06/22/24 Procedure(s): XR chest 1V Accession Number(s): [id number] cc: Carlo Santana MD; Javier Dubois CLINICAL [...] in OV> 06/22/241957 DD/ 55 TD/TT: 06/22/241955 Splicing Machine Operator: [facility] External Provider IMG XR PROCEDURES Edited Result - Final * CT Head w/o Contrast (06/22/2024 7:16 PM EDT) Anatomical Region Laterality Modality Head, Neck Computed Tomogra phy 06/22/2024 7:16 PM EDT Narrative 06/22/2024 7:18 PM EDT [place] [address] CT Scan Report Signed Patient: Peri Sandy MR#: [id number] 338 : 1980 Acct:[id number] Age/Sex: 43 / F ADM Date: 06/22/24 Loc: HO.ED Attending Dr: Ordering Physician: Javier Dubois Date of Service: 06/22/24 Procedure(s): CT head/brain wo IV con Accession Number(s): [id number] cc: Carlo Santana MD; Javier Dubois Report Number: [id number]: Total DLP = 967.00 mGy-cm CLINICAL HISTORY: [...] in OV> 06/22/241917 DD/ 15 TD/TT: 06/22/241915 Splicing Machine Operator: Procedure Note Donotuseinterpreter, Image - 06/22/[address] [address] [address] Scan Report Signed Patient: Peri Sandy MMR#: [id number] 338 : 1980Acct:[id number] Age/Sex: 43 / FADM Date: 06/22/24 Loc: HO.ED Attending Dr: Ordering Physician: Javier Dubois Date of Service: 06/22/24 Procedure(s): CT head/brain wo IV con Accession Number(s): [id number] cc: Carlo Santaan MD; Javier Dubois Report Number: [id number]: Total DLP = 967.00 mGy-cm CLINICAL HISTORY: [...] in OV> 06/22/241917 DD/ 15 TD/TT: 06/22/241915 Splicing Machine Operator: [facility] External Provider IMG CT PROCEDURES Edited Result - Final documented in this encounter Visit Diagnoses Diagnosis Chronic left-sided low back pain with left-sided sciatica documented in this encounter Additional Health Concerns Assessment Noted Time PHQ-9 Depression Total Score: 15 01/25/ 024 11:50 AM EST documented as of this encounter Care Teams Extractor Puller Relationship Specialty Start Date End Date Carlo Santana MD [address] [place] [address] PCP - General Internal Medicine 12/28/17 documented as of this encounter
--- OUTSIDE RECORDS SUMMARY | 2025-01-17 16:59 | XMS_ITS | Encounter Summary ---
Author Organization [employer] Address [address] [facility] [address] [facility] [address] 7[address] [place] [address] Care Team Providers Care Director Statistical Programming Name Role Phone Carlo Santana MD Primary Care Provider [phone] Reason for Visit * Reason Onset Date Comments Referral 07/25/2023 Encounter Details Date Type Department Care Team ([facility] st Contact Info) Description 07/25/2023 Telephone [facility] [address] [place] [address] Carlo Santana MD [address] [place], [place] [phone] Referral Social History Tobacco Use Types Packs/Day [...] in regards to moving pain management to [facility] in [place]. Pt stated she called the [place] office and it didn't go well. States [...] with switching locations. Please contact pt at [phone] * Telephone Encounter - Rand Savage RN - 07/28/2023 2:55 PM EDT Returned call to pt regarding message below. Pt stated she did not say another referral to Urology she said pain management. Pt is currently seen Pain management in [place] and has tried two different doctors. The first one told her her pain was in her head, and was very rude and dismissive. The socond doctor, she stated was no well prepared for her visit and not aware of what she has tried and not tried. I advised pt that if she decides to go with a different location, the wait times for REPORTS ANALYSIS MANAGER appts can be lengthy. Pt advised if maybe she can try to resolve issues directly with this office so there won't be a lapse in care. Pt states she will call [place] office and speak to their manager local andsee if maybe she can try another provider. Pt advised to call their office and based on response they give her she can think about it and decide and speak with PCP next on appt. Pt agrees with plan. Will send to PCP as FYI and if pt does decide she will wants to switch she would like a location in [place]. * Telephone Encounter - Quan Mena - 07/25/2023 3:01 PM EDT Tc from pt calling in regards to urology referral, stating she's not satisfied with care and would like to change location. Pt is requesting to be referred to [facility] instead pt provided location [address] [facility]. If nay questions you can contact pt at [phone]. documented in this encounter Plan of Treatment Upcoming Encounters Date Type Department Care Team ([facility] st Contact Info) Description 01/30/2025 10:30 AM EST Clinical Support [facility] MED & PEDS [address] [place] [address] Fariba Gandhi RN 505 [place] [address] documented as of this encounter Visit Diagnoses Not on filedocumented in this encounter Additional Health Concerns Assessment Noted Time PHQ-9 Depression Total Score: 3 06/04/19 23 3:42 PM EDT documented as of this encounter Care Teams Director Statistical Programming Relationship Specialty Start Date End Date Carlo Santana MD 505 [place] [address] PCP - General Internal Medicine 12/28/17 documented as of this encounter
--- OUTSIDE RECORDS SUMMARY | 2025-01-17 16:59 | XMS_ITS | Encounter Summary ---
Author Organization [employer] Address [address] [facility] 7t [place] [address] Care Team Providers Care Media Technician Name Role Phone Carlo Santana MD Primary Care Provider [phone] Encounter Details Date Type Department Care Team ([facility] st Contact Info) Description 08/05/2023 Telephone [facility] MED[facility]INE [address] [place] [address] Carlo Santana MD 505 [place], [place] [phone] Social History Tobacco Use Types Packs/Day Years [...] 10:30 AM EST Clinical Support [facility] MED & PEDS 505 [place] [address] Fariba Gandhi, HUGO 505 [place] [address] documented as of this encounter Visit Diagnoses Not on filedocumented in this encounter Additional Health Concerns Assessment Noted Time PHQ-9 Depression Total Score: 3 06/04/19 23 3:42 PM EDT documented as of this encounter Care Teams Media Technician Relationship Specialty Start Date End Date Carlo Santana MD 505 [place] [address] PCP - General Internal Medicine 12/28/17 documented as of this encounter
--- OUTSIDE RECORDS SUMMARY | 2025-01-17 16:59 | XMS_ITS | Encounter Summary ---
Author Organization [employer] Address [address] [facility] 7t [place] [address] Care Team Providers Care Shovel Logger Name Role Phone Carlo Santana MD Primary Care Provider [phone] Reason for Visit * Reason Onset Date Comments requesting a call back 09/03/2024 Encounter Details Date Type Department Care Team ([facility] Contact Info) Description 09/03/2024 Telephone [facility] CHC MED & PEDS [address] [place] [address] Carlo Santana MD 505 [place], [place] [phone] requesting a call back Social History Tobacco [...] other than back surgery. Contact pt at [phone] documented in this encounter Plan of Treatment Upcoming Encounters Date Type Department Care Team (Late st Contact Info) Description 01/30/2025 10:30 AM EST Clinical Support [facility] MED & PEDS 505 [place] [address] Fariba Gandhi, RN 505 [place] [address] documented as of this encounter Visit Diagnoses Diagnosis [place] (generalized anxiety disorder) Generalized anxiety disorder documented in this encounter Additional Health Concerns Assessment Noted Time PHQ-9 Depression Total Score: 6 08/22/19 25 10:16 AM EDT documented as of this encounter Care Teams Shovel Logger Relationship Specialty Start Date End Date Carlo Santana MD 505 [place] [address] PCP - General Internal Medicine 12/28/17 documented as of this encounter
--- OUTSIDE RECORDS SUMMARY | 2025-01-17 16:59 | XMS_ITS | Encounter Summary ---
Author Organization [employer] Address [address] [facility] 7t [place] [address] Care Team Providers Care Product Control And Logistics Analyst Name Role Phone Carlo Santana MD Primary Care Provider [phone] Reason for Visit * Reason Onset Date Comments Med Refill 06/04/2024 Encounter Details Date Type Department Care Team (Late st Contact Info) Description 06/04/2024 Telephone [facility]INE 230 [place] [address] Carlo Santana MD 505 [place], [place] [phone] Med Refill Social History Tobacco Use Types [...] immediate release tablet To be sent to: [facility]/pharmacy #[id number] LEATHA PHILLIPS - [address] [facility] documented in this encounter Plan of Treatment Upcoming Encounters Date Type Department Care Team ([facility] st Contact Info) Description 01/30/2025 10:30 AM EST Clinical Support [facility] CH[facility] MED & PEDS 505 [place] [address] Fariba Gandhi, HUGO 505 [place] [address] documented as of this encounter Visit Diagnoses Not on filedocumented in this encounter Additional Health Concerns Assessment Noted Time PHQ-9 Depression Total Score: 15 024 11:50 AM EST documented as of this encounter Care Teams Product Control And Logistics Analyst Relationship Specialty Start Date End Date Carlo Santana MD [address] [facility] [address] PCP - General Internal Medicine 12/28/17 documented as of this encounter
--- OUTSIDE RECORDS SUMMARY | 2025-01-17 16:59 | XMS_ITS | Encounter Summary ---
Author Organization [employer] Address [address] [facility] 7t [place] [address] Care Team Providers Care Geothermal Heat Pump Machinist Name Role Phone Carlo Santana MD Primary Care Provider [phone] Reason for Visit * Reason Onset Date Comments Medication Question 10/25/2024 Encounter Details Date Type Department Care Team ([facility] Contact Info) Description 10/25/2024 Telephone [facility] MEDICINE 230 [place] [address] Carlo Santana MD 505 [place], [place] [phone] Medication Question Social History Tobacco Use Types [...] Description 01/30/2025 10:30 AM EST Clinical Support [facility] MED & PEDS 505 [place] [address] Fariba Gandhi RN 505 [place] [address] documented as of this encounter Visit Diagnoses Not on filedocumented in this encounter Additional Health Concerns Assessment Noted Time PHQ-9 Depression Total Score: 6 08/22/19 25 10:16 AM EDT documented as of this encounter Care Teams Geothermal Heat Pump Machinist Relationship Specialty Start Date End Date Carlo Santana MD 505 [place] [address] PCP - General Internal Medicine 12/28/17 documented as of this encounter
--- OUTSIDE RECORDS SUMMARY | 2025-01-17 16:59 | XMS_ITS | Encounter Summary ---
Author Organization [employer] Address [address] [facility] 7t [place] [address] Care Team Providers Care Atg Java Developer Name Role Phone Carlo Santana MD Primary Care Provider [phone] Reason for Visit * Reason Onset Date Comments Medication Question 06/11/2024 Encounter Details Date Type Department Care Team ([facility] Contact Info) Description 06/11/2024 Telephone [facility] MEDICINE 230 [place] [address] Carlo Santana MD 505 [place], [place] [phone] Medication Question Social History Tobacco Use Types [...] MG immediate release tablet. Contact pt at [phone] documented in this encounter Plan of Treatment Upcoming Encounters Date Type Department Care Team ([facility] st Contact Info) Description 01/30/2025 10:30 AM EST Clinical Support [facility] CHC MED & PEDS 505 [place] [address] Fariba Gandhi, HUGO 505 [place] [address] documented as of this encounter Visit Diagnoses Not on filedocumented in this encounter Additional Health Concerns Assessment Noted Time PHQ-9 Depression Total Score: 15 024 11:50 AM EST documented as of this encounter Care Teams Atg Java Developer Relationship Specialty Start Date End Date Carlo Santana MD 505 [place] [address] PCP - General Internal Medicine 12/28/17 documented as of this encounter
--- OUTSIDE RECORDS SUMMARY | 2025-01-17 16:59 | XMS_ITS | Encounter Summary ---
Author Organization [employer] Address [address] [place] [address] 7 [place] [address] Care Team Providers Care Patternmaker Metal Bench Name Role Phone Carlo Santana MD Primary Care Provider [phone] Encounter Details Date Type Department Care Team (Late Contact Info) Description 11/03/2022 Orders Only [facility] 505 [place], [place] [phone] Carlo Santana MD 505 [place] [address] Obesity (BMI 30-39.9) (Primary Dx); Chronic left-sided [...] [facility] 505 [place] [address] Fariba Gandhi, RN 505 [place] [address] documented as of this encounter Visit Diagnoses Diagnosis Obesity (BMI 30-39.9)- Primary Chronic left-sided low back pain with left-sided sciatica documented in this encounter Additional Health Concerns Assessment Noted Time PHQ-9 Depression Total Score: 3 06/04/19 23 3:42 PM EDT documented as of this encounter Care Teams Patternmaker Metal Bench Relationship Specialty Start Date End Date Carlo Santana MD 505 [place] [address] PCP - General Internal Medicine 12/28/17 documented as of this encounter
--- OUTSIDE RECORDS SUMMARY | 2025-01-17 16:59 | XMS_ITS | Encounter Summary ---
Author Organization [employer] Address [address] [facility] 7t [place] [address] Care Team Providers Care Independent Jeweler Name Role Phone Carlo Santana MD Primary Care Provider [phone] Reason for Visit * Reason Comments Med Refill Encounter Details Date Type Department Care Team ([facility] st Contact Info) Description 01/16/2023 Refill [facility] MEDICINE 230 [place] [address] Carlo Santana MD [address] [facility] [address] [place], [place] [phone] Muscle spasm Social History Tobacco Use Types [...] Description 01/30/2025 10:30 AM EST Clinical Support [facility] CH[facility] MED & PEDS 505 [place] [address] Fariba Gandhi RN 505 [place] [address] documented as of this encounter Visit Diagnoses Diagnosis Muscle spasm Spasm of muscle documented in this encounter Additional Health Concerns Assessment Noted Time PHQ-9 Depression Total Score: 3 06/04/19 23 3:42 PM EDT documented as of this encounter Care Teams Independent Jeweler Relationship Specialty Start Date End Date Carlo Santana MD 505 [place] [address] PCP - General Internal Medicine 12/28/17 documented as of this encounter
--- OUTSIDE RECORDS SUMMARY | 2025-01-17 16:59 | XMS_ITS | Encounter Summary ---
Author Organization [employer] Address [address] [facility] 7t [place] [address] Care Team Providers Care Burlap Man Name Role Phone Carlo Santana MD Primary Care Provider [phone] Reason for Visit * Reason Onset Date Comments Durable Medical Equipment 08/27/2024 Encounter Details Date Type Department Care Team ([facility] Contact Info) Description 08/27/2024 Telephone [facility] CHC MED & PEDS 505 [place] [address] Carlo Santana MD 505 [place] [address] Durable Medical Equipment Social History Tobacco Use [...] to a size medium. Contact pt at [phone] * Telephone Encounter - Francesca Solares - 08/27/2024 8:22 AM EDT Tc from pt requesting to change the size of depends from a small to a size medium. Contact pt at [phone] documented in this encounter Plan of Treatment Upcoming Encounters Date Type Department Care Team (Late st Contact Info) Description 01/30/2025 10:30 AM EST Clinical Support [facility] MED & PEDS 505 [place] [address] Fariba Gandhi, RN 505 [place] [address] documented as of this encounter Visit Diagnoses Diagnosis Chronic left-sided low back pain with left-sided sciatica documented in this encounter Additional Health Concerns Assessment Noted Time PHQ-9 Depression Total Score: 6 08/22/19 25 10:16 AM EDT documented as of this encounter Care Teams Burlap Man Relationship Specialty Start Date End Date Carlo Snatana MD [address] [place] [address] PCP - General Internal Medicine 12/28/17 documented as of this encounter
--- OUTSIDE RECORDS SUMMARY | 2025-01-17 16:59 | XMS_ITS | Encounter Summary ---
Author Organization [employer] Address [address] [facility] 7t [place] [address] Care Team Providers Care Medical Records Manager Name Role Phone Carlo Santana MD Primary Care Provider [phone] Reason for Visit * Reason Onset Date Comments Referral 07/26/2022 Encounter Details Date Type Department Care Team ([facility] st Contact Info) Description 07/26/2022 Telephone [facility] MEDICINE 230 [place] [address] Carlo Santana MD 505 [place], [place] [phone] Referral Social History Tobacco Use Types Packs/Day [...] was not satisfied. Please contact pt at [phone] documented in this encounter Plan of Treatment Upcoming Encounters Date Type Department Care Team ([facility] st Contact Info) Description 01/30/2025 10:30 AM EST Clinical Support [facility] MED & PEDS 505 [place] [address] Fariba Gandhi, HUGO 505 [place] [address] documented as of this encounter Visit Diagnoses Not on filedocumented in this encounter Additional Health Concerns Assessment Noted Time PHQ-9 Depression Total Score: 3 06/04/19 23 3:42 PM EDT documented as of this encounter Care Teams Medical Records Manager Relationship Specialty Start Date End Date Carlo Santana MD 505 [place] [address] PCP - General Internal Medicine 12/28/17 documented as of this encounter
--- OUTSIDE RECORDS SUMMARY | 2025-01-17 16:59 | XMS_ITS | Encounter Summary ---
Author Organization [employer] Address [address] [facility] 7t [place] [address] Care Team Providers Care Program Director/Morning Show Host Name Role Phone Carlo Santana MD Primary Care Provider [phone] Reason for Visit * Reason Onset Date Comments triage 08/10/2022 Encounter Details Date Type Department Care Team ([facility] st Contact Info) Description 08/10/[address] [facility] MEDICINE 230 [place] [address] Carlo Santana MD 505 [place], [place] [phone] triage Social History Tobacco Use Types Packs/Day [...] 10:30 AM EST Clinical Support [facility] MED & PEDS 505 [place] [address] Fariba Gandhi, HUGO 505 [place] [address] documented as of this encounter Visit Diagnoses Not on filedocumented in this encounter Additional Health Concerns Assessment Noted Time PHQ-9 Depression Total Score: 3 06/04/19 23 3:42 PM EDT documented as of this encounter Care Teams Program Director/Morning Show Host Relationship Specialty Start Date End Date Carlo Santana MD 505 [place] [address] PCP - General Internal Medicine 12/28/17 documented as of this encounter
--- OUTSIDE RECORDS SUMMARY | 2025-01-17 16:59 | XMS_ITS | Encounter Summary ---
Author Organization [employer] Address [address] [facility] 7t [place] [address] Care Team Providers Care Ham Trimmer Name Role Phone Carlo Santana MD Primary Care Provider [phone] Reason for Visit * Reason Onset Date Comments Call Back Request 07/20/2023 Encounter Details Date Type Department Care Team ([facility] st Contact Info) Description 07/20/2023 Telephone [facility] MEDICINE 230 [place] [address] Carlo Santana MD [address] [facility] [address] [place], [place] [phone] Call Back Request Social History Tobacco Use [...] [facility] MED & PEDS 505 [place] [address] Fariba Gandhi, HUGO 505 [place] [address] documented as of this encounter Visit Diagnoses Not on filedocumented in this encounter Additional Health Concerns Assessment Noted Time PHQ-9 Depression Total Score: 3 06/04/19 23 3:42 PM EDT documented as of this encounter Care Teams Ham Trimmer Relationship Specialty Start Date End Date Carlo Santana MD 505 [place] [address] PCP - General Internal Medicine 12/28/17 documented as of this encounter
--- OUTSIDE RECORDS SUMMARY | 2025-01-17 16:59 | XMS_ITS | Encounter Summary ---
Author Organization [employer] Address [address] [facility] 7 [place] [address] Care Team Providers Care Budder Name Role Phone Carlo Santana MD Primary Care Provider [phone] Encounter Details Date Type Department Care Team ([facility] st Contact Info) Description 10/26/2024 Orders Only [facility] CHC MED & PEDS 505 [place], [place] [phone] Carlo Santana MD 505 [place], [place] [phone] Chronic left-sided low back pain with left-sided [...] is your housing situation today? I have doinne william 01/19/[address] you [...] [facility] st Contact Info) Description 01/30/2025 10:30 AM EST Clinical Support [facility] CHC MED & PEDS 505 [place] [address] Fariba Gandhi, HUGO 505 [place] [address] documented as of this encounter Visit Diagnoses Diagnosis Chronic left-sided low back pain with left-sided sciatica documented in this encounter Additional Health Concerns Assessment Noted Time PHQ-9 Depression Total Score: 6 08/22/19 25 10:16 AM EDT documented as of this encounter Care Teams Budder Relationship Specialty Start Date End Date Carlo Santana MD [address] [place] [address] PCP - General Internal Medicine 12/28/17 documented as of this encounter
--- OUTSIDE RECORDS SUMMARY | 2025-01-17 17:00 | XMS_ITS | Encounter Summary ---
Author Organization [employer] Address [address] [facility] [address] [place] [address] Care Team Providers Care Gm Name Role Phone Carlo Santana MD Primary Care Provider [phone] Reason for Visit * Reason Onset Date Comments Appointment Request 09/20/2023 Encounter Details Date Type Department Care Team ([facility] st Contact Info) Description 09/20/2023 Telephone [facility] 230 [place] [address] Carlo Santana MD 505 [place], [place] [phone] Appointment Request Social History Tobacco Use Types [...] AM EST Clinical Support [facility] MED & PEDS 505 [place] [address] Fariba Gandhi, HUGO 505 [place] [address] documented as of this encounter Visit Diagnoses Not on filedocumented in this encounter Additional Health Concerns Assessment Noted Time PHQ-9 Depression Total Score: 3 06/04/19 23 3:42 PM EDT documented as of this encounter Care Teams Gm Relationship Specialty Start Date End Date Carlo Santana MD 505 [place] [address] PCP - General Internal Medicine 12/28/17 documented as of this encounter
--- OUTSIDE RECORDS SUMMARY | 2025-01-17 17:00 | XMS_ITS | Encounter Summary ---
Author Organization [employer] Address [address] [facility] [address] [place] [address] Care Team Providers Care Clinical Dietetic Technician Name Role Phone Carlo Santana MD Primary Care Provider [phone] Reason for Visit * Reason Onset Date Comments Nurse Triage 10/31/2023 Encounter Details Date Type Department Care Team ([facility] st Contact Info) Description 10/31/2023 Telephone [facility] MEDICINE 230 [place] [address] Carlo Santana MD 505 [place], [place] [phone] Nurse Triage Social History Tobacco Use Types [...] need for follow-up with a provider. Suggested [facility] WIC but pt wanted to see PCP for stronger lidocaine patches for her back. Pt reports pain as a constant 7-8/10 and can barely move. Reiterated that pt should be seen for the fall to be properly evaluated and there was not same daycare appt at [facility]. Pt declined [place] and ended call. * [...] Upcoming Encounters Date Type Department Care Team ([facility] Contact Info) Description 01/30/2025 10:30 AM EST Clinical Support [facility] MED & PEDS 505 [place] [address] Fariba Gandhi RN 505 [place] [address] documented as of this encounter Visit Diagnoses Not on filedocumented in this encounter Additional Health Concerns Assessment Noted Time PHQ-9 Depression Total Score: 3 06/04/19 23 3:42 PM EDT documented as of this encounter Care Teams Clinical Dietetic Technician Relationship Specialty Start Date End Date Carlo Santana MD 505 [place] [address] PCP - General Internal Medicine 12/28/17 documented as of this encounter
--- OUTSIDE RECORDS SUMMARY | 2025-01-17 17:00 | XMS_ITS | Encounter Summary ---
Author Organization [employer] Address [address] [facility] 7t [place] [address] Care Team Providers Care Horticultural Services Supervisor Name Role Phone Carlo Santana MD Primary Care Provider [phone] Encounter Details Date Type Department Care Team ([facility] st Contact Info) Description 09/16/2023 Orders Only [facility] MED & PEDS 505 [place], [place] [phone] Carlo Santana MD 505 [place], [place] [phone] Bipolar affective disorder, remission status unspecified ([facility]) Social History Tobacco Use Types Packs/Day [...] ([facility] st Contact Info) Description 01/30/2025 10:30 AM EST Clinical Support [facility] MED & PEDS 505 [place] [address] Fariba Gandhi RN 505 [place] [address] documented as of this encounter Visit Diagnoses Diagnosis Bipolar affective disorder, remission status unspecified (CMS/HCC) (HCC) documented in this encounter Additional Health Concerns Assessment Noted Time PHQ-9 Depression Total Score: 3 06/04/19 23 3:42 PM EDT documented as of this encounter Care Teams Horticultural Services Supervisor Relationship Specialty Start Date End Date Carlo Santana MD 505 [place] [address] PCP - General Internal Medicine 12/28/17 documented as of this encounter
--- OUTSIDE RECORDS SUMMARY | 2025-01-17 17:00 | XMS_ITS | Encounter Summary ---
Author Organization [employer] Address [address] [place] [address] 7 [place] [address] Care Team Providers Care Rod Puller Name Role Phone Carlo Santana MD Primary Care Provider [phone] Encounter Details Date Type Department Care Team (Latest Contact Info) Description 10/14/2021 Abstract [facility] CONVERSIONS Dental, Provider, DDS Social [...] Description 01/30/2025 10:30 AM EST Clinical Support [facility] CHC MED & PEDS 505 [place] [address] Fariba Gandhi, HUGO 505 [place] [address] documented as of this encounter Visit Diagnoses Not on filedocumented in this encounter Care Teams Rod Puller Relationship Specialty Start Date End Date Carlo Santana MD 505 [place] [address] PCP - General Internal Medicine 12/28/17 documented as of this encounter
--- OUTSIDE RECORDS SUMMARY | 2025-01-17 17:00 | XMS_ITS | Encounter Summary ---
Author Organization [employer] Address [address] [facility] [address] 7t [place] [address] Care Team Providers Care Potato Inspector Name Role Phone Carlo Santana MD Primary Care Provider [phone] Reason for Visit * Reason Onset Date Comments Med Refill 02/28/2024 Medication Question 02/28/2024 Encounter Details Date Type Department Care Team ([facility] st Contact Info) Description 02/28/2024 Telephone [facility] MEDICINE [address] [place] [address] Carlo Santana MD [address] [place], [place] [phone] Med Refill; Medication Question Social History Tobacco [...] tablet If any questions contact pt at [phone] documented in this encounter Plan of Treatment Upcoming Encounters Date Type Department Care Team ([facility] st Contact Info) Description 01/30/2025 10:30 AM EST Clinical Support [facility] CHC MED & PEDS 505 [place] [address] Fariba Gandhi RN 505 [place] [address] documented as of this encounter Visit Diagnoses Not on filedocumented in this encounter Additional Health Concerns Assessment Noted Time PHQ-9 Depression Total Score: 15 024 11:50 AM EST documented as of this encounter Care Teams Potato Inspector Relationship Specialty Start Date End Date Carlo Santana MD 505 [place] [address] PCP - General Internal Medicine 12/28/17 documented as of this encounter
--- OUTSIDE RECORDS SUMMARY | 2025-01-17 17:00 | XMS_ITS | Encounter Summary ---
Author Organization [employer] Address [address] [facility] 7 [place] [address] Care Team Providers Care Client Consultant Name Role Phone Carlo Santana MD Primary Care Provider [phone] Encounter Details Date Type Department Care Team ([facility] Contact Info) Description 02/08/2024 Orders Only [facility] CHC MED & PEDS [address] [place], [place] [phone] Carlo Santana MD 505 [place], [place] [phone] [place] (generalized anxiety disorder) (Primary Dx) Social [...] [facility] st Contact Info) Description 01/30/2025 10:30 AM EST Clinical Support [facility] CHC MED & PEDS 505 [place] [address] Fariba Gandhi, HUGO 505 [place] [address] documented as of this encounter Visit Diagnoses Diagnosis [place] (generalized anxiety disorder)- Primary Generalized anxiety disorder documented in this encounter Additional Health Concerns Assessment Noted Time PHQ-9 Depression Total Score: 15 024 11:50 AM EST documented as of this encounter Care Teams Client Consultant Relationship Specialty Start Date End Date Carlo Santana MD 505 [place] [address] PCP - General Internal Medicine 12/28/17 documented as of this encounter
--- OUTSIDE RECORDS SUMMARY | 2025-01-17 17:00 | XMS_ITS | Encounter Summary ---
Author Organization [employer] Address [address] [facility] 7t [place] [address] Care Team Providers Care Middle School English Teacher Name Role Phone Carlo Santana MD Primary Care Provider [phone] Reason for Visit * Reason Comments Med Refill Encounter Details Date Type Department Care Team ([facility] Contact Info) Description 10/23/2024 Refill [facility] CHC MED & PEDS 505 [place], [place] [phone] Carlo Santana MD 505 [place], [place] [phone] Chronic left shoulder pain; Rib pain; Chronic [...] 01/30/2025 10:30 AM EST Clinical Support [facility] CHC MED & PEDS 505 [place] [address] Fariba Gandhi RN 505 [place] [address] documented as of this encounter Visit Diagnoses Diagnosis Chronic left shoulder pain Pain in joint, shoulder region Rib pain Unspecified chest pain Chronic left-sided low back pain with left-sided sciatica Neck pain Cervicalgia documented in this encounter Additional Health Concerns Assessment Noted Time PHQ-9 Depression Total Score: 6 08/22/19 25 10:16 AM EDT documented as of this encounter Care Teams Middle School English Teacher Relationship Specialty Start Date End Date Carlo Santana MD 505 [place] [address] PCP - General Internal Medicine 12/28/17 documented as of this encounter
--- OUTSIDE RECORDS SUMMARY | 2025-01-17 17:00 | XMS_ITS | Encounter Summary ---
Author Organization [employer] Address [address] [facility] 7t [place] [address] Care Team Providers Care Worm Farm Laborer Name Role Phone Carlo Santana MD Primary Care Provider [phone] Reason for Visit * Reason Comments Med Change Request Encounter Details Date Type Department Care Team ([facility] Contact Info) Description 04/08/2023 Refill [facility] CHC MED & PEDS 505 [place], [place] [phone] Carlo Santana MD [address] [place], [place] [phone] Obesity (BMI 30-39.9) Social History Tobacco Use Types Packs/Day Years Used Date Smoking Tobacco: Never Passive Smoke Exposure: Never Smokeless Tobacco: Never Alcohol Use Standard Drinks/Week Comments Never 0 (1 standard drink = 0.6 oz pur e alcohol) Depression Answer Date Recorded Patient Health Questionnaire-9 Score 3 06/03/2022 Housing Stability Answer Date Recorded What is your housing situation today? I have dionne willima 12/27/[address] you li [...] Description 01/30/2025 10:30 AM EST Clinical Support [facility] MED & PEDS 505 [place] [address] Fariba Gandhi, HUGO 505 [place] [address] documented as of this encounter Visit Diagnoses Diagnosis Obesity (BMI 30-39.9) documented in this encounter Additional Health Concerns Assessment Noted Time PHQ-9 Depression Total Score: 3 06/04/19 23 3:42 PM EDT documented as of this encounter Care Teams Worm Farm Laborer Relationship Specialty Start Date End Date Carlo Santana MD 505 [place] [address] PCP - General Internal Medicine 12/28/17 documented as of this encounter
--- OUTSIDE RECORDS SUMMARY | 2025-01-17 17:00 | XMS_ITS | Encounter Summary ---
Author Organization [email or web address] Address [address] 7t [place] [address] Care Team Providers Care Slot Machine Repairer Name Role Phone Carlo Santana MD Primary Care Provider [phone] Encounter Details Date Type Department Care Team (Late st Contact Info) Description 11/02/2023 Orders Only [facility] WALK-IN CENTER [address] [place] [address] Carlo Santana MD [address] [place], [place] [phone] Chronic left-sided low back pain with left-sided [...] [facility] MED & PEDS [address] [place] [address] Fariba Gandhi RN 505 [place] [address] documented as of this encounter Visit Diagnoses Diagnosis Chronic left-sided low back pain with left-sided sciatica documented in this encounter Additional Health Concerns Assessment Noted Time PHQ-9 Depression Total Score: 3 06/04/19 23 3:42 PM EDT documented as of this encounter Care Teams Slot Machine Repairer Relationship Specialty Start Date End Date Carlo Santana MD 505 [place] [address] PCP - General Internal Medicine 12/28/17 documented as of this encounter
--- OUTSIDE RECORDS SUMMARY | 2025-01-17 17:00 | XMS_ITS | Encounter Summary ---
Author Organization [employer] Address [address] [facility] 7t [place] [address] Care Team Providers Care Lumber Estimator Name Role Phone Carlo Santana MD Primary Care Provider [phone] Reason for Visit * Reason Onset Date Comments Med Refill 02/20/2024 Encounter Details Date Type Department Care Team ([facility] st Contact Info) Description 02/20/2024 Telephone [facility] MEDICINE 230 [place] [address] Carlo Santana MD 505 [place], [place] [phone] Med Refill Social History Tobacco Use Types [...] PM EST Disposable underpads order sent to [email or web address] and signed rx sent to scan pending decision. * Telephone Encounter - Grabiel Taylor - 02/20/2024 9:08 AM EST Tc from pt stating that the doctor stated that he would prescribe disposable bed pads. Pt would like for them to go to [facility]. If any question you can contact pt at [phone] documented in this encounter Plan of Treatment Upcoming Encounters Date Type Department Care Team (Late st Contact Info) Description 01/30/2025 10:30 AM EST Clinical Support [facility] MED & PEDS 505 [place] [address] Fariba Gandhi, RN 505 [place] [address] documented as of this encounter Visit Diagnoses Not on filedocumented in this encounter Additional Health Concerns Assessment Noted Time PHQ-9 Depression Total Score: 15 024 11:50 AM EST documented as of this encounter Care Teams Lumber Estimator Relationship Specialty Start Date End Date Carlo Santana MD 505 [place] [address] PCP - General Internal Medicine 12/28/17 documented as of this encounter
--- OUTSIDE RECORDS SUMMARY | 2025-01-17 17:00 | XMS_ITS | Encounter Summary ---
Author Organization [employer] Address [address] [facility] 7t [place] [address] Care Team Providers Care Vehicle Body Maker Name Role Phone Carlo Santana MD Primary Care Provider [phone] Reason for Visit * Reason Onset Date Comments Med Refill 11/02/2023 Encounter Details Date Type Department Care Team (Late st Contact Info) Description 11/02/2023 Telephone [facility] MEDICINE 230 [place] [address] Carlo Santana MD 505 [place], [place] [phone] Med Refill Social History Tobacco Use Types [...] script for oxycodone to be sent to [facility] on file. * Telephone Encounter - Quan Mena - 11/02/2023 9:15 AM EDT Tc from pt stating oxyCODONE-acetaminophen (Percocet) 7.5-325 MG tablet was sent to the wrong pharmacy and was advised by the pharmacy to contact pcp to have script transferred to the right pharmacy.Pt is requesting to have script sent to [facility]. If any questions you can contact pt at [phone]. documented in this encounter Plan of Treatment Upcoming Encounters Date Type Department Care Team ([facility] st Contact Info) Description 01/30/2025 10:30 AM EST Clinical Support [facility] MED & PEDS 505 [place] [address] Fariba Gandhi, RN [address] [place] [address] documented as of this encounter Visit Diagnoses Not on filedocumented in this encounter Additional Health Concerns Assessment Noted Time PHQ-9 Depression Total Score: 3 06/04/19 23 3:42 PM EDT documented as of this encounter Care Teams Vehicle Body Maker Relationship Specialty Start Date End Date Carlo Santana MD [address] [place] [address] PCP - General Internal Medicine 12/28/17 documented as of this encounter
--- OUTSIDE RECORDS SUMMARY | 2025-01-17 17:00 | XMS_ITS | Encounter Summary ---
Author Organization [employer] Address [address] [place] [address] 7 [place] [address] Care Team Providers Care Interlocking Machine Operator Name Role Phone Carlo Santana MD Primary Care Provider [phone] Encounter Details Date Type Department Care Team (Latest Contact Info) Description 04/18/[address] [facility] CONVERSIONS Dental, Provider, DDS Social [...] 01/30/2025 10:30 AM EST Clinical Support [facility] CHC MED & PEDS 505 [place] [address] Fariba Gandhi RN 505 [place] [address] documented as of this encounter Visit Diagnoses Not on filedocumented in this encounter Care Teams Interlocking Machine Operator Relationship Specialty Start Date End Date Carlo Santana MD 505 [place] [address] PCP - General Internal Medicine 12/28/17 documented as of this encounter
--- OUTSIDE RECORDS SUMMARY | 2025-01-17 17:00 | XMS_ITS | Encounter Summary ---
Author Organization [employer] Address [address] [facility] 7t [place] [address] Care Team Providers Care Treatment Manager Name Role Phone Carlo Santana MD Primary Care Provider [phone] Reason for Visit * Reason Onset Date Comments Results 02/14/2023 Encounter Details Date Type Department Care Team ([facility] [address] Contact Info) Description 02/14/2023 Telephone [facility] MED & PEDS 505 [place] [address] Carlo Santana MD 505 [place] [address] Results Social History Tobacco Use Types Packs/Day [...] hip on 02/09. Please contact pt at [phone] documented in this encounter Plan of Treatment Upcoming Encounters Date Type Department Care Team (Late st Contact Info) Description 01/30/2025 10:30 AM EST Clinical Support [facility] MED & PEDS 505 [place] [address] Fariba Gandhi RN 505 [place] [address] documented as of this encounter Visit Diagnoses Not on filedocumented in this encounter Additional Health Concerns Assessment Noted Time PHQ-9 Depression Total Score: 3 06/04/19 23 3:42 PM EDT documented as of this encounter Care Teams Treatment Manager Relationship Specialty Start Date End Date Carlo Santana MD 505 [place] [address] PCP - General Internal Medicine 12/28/17 documented as of this encounter
--- OUTSIDE RECORDS SUMMARY | 2025-01-17 17:00 | XMS_ITS | Encounter Summary ---
Author Organization [employer] Address [address] [facility] 7t [place] [address] Care Team Providers Care Senior Software Development Manager Name Role Phone Carlo Santana MD Primary Care Provider [phone] Reason for Visit * Reason Comments Med Refill Encounter Details Date Type Department Care Team ([facility] st Contact Info) Description 03/31/2023 Refill [facility] MEDICINE 230 [place] [address] Carlo Santana MD [address] [facility] [address] [place], [place] [phone] Chronic left-sided low back pain with left-sided [...] [facility] st Contact Info) Description 01/30/2025 10:30 AM EST Clinical Support [facility] MED & PEDS 505 [place] [address] Fariba Gandhi RN 505 [place] [address] documented as of this encounter Visit Diagnoses Diagnosis Chronic left-sided low back pain with left-sided sciatica Low back pain radiating down leg documented in this encounter Additional Health Concerns Assessment Noted Time PHQ-9 Depression Total Score: 3 06/04/19 23 3:42 PM EDT documented as of this encounter Care Teams Senior Software Development Manager Relationship Specialty Start Date End Date Carlo Santana MD 505 [place] [address] PCP - General Internal Medicine 12/28/17 documented as of this encounter
--- OUTSIDE RECORDS SUMMARY | 2025-01-17 17:00 | XMS_ITS | Encounter Summary ---
Author Organization [employer] Address [address] [facility] 7t [place] [address] Care Team Providers Care Vocational Teacher Name Role Phone Carlo Santana MD Primary Care Provider [phone] Reason for Visit * Reason Onset Date Comments Referral 02/22/2024 Encounter Details Date Type Department Care Team ([facility] st Contact Info) Description 02/22/2024 Telephone [facility] MEDICINE 230 [place] [address] Carlo Santana MD [address] [facility] [address] [place], [place] [phone] Referral Social History Tobacco Use Types Packs/Day [...] second referral for Outpatient Therapy, Callback number [phone] documented in this encounter Plan of Treatment Upcoming Encounters Date Type Department Care Team ([facility] st Contact Info) Description 01/30/2025 10:30 AM EST Clinical Support [facility] CHC MED & PEDS 505 [place] [address] Fariba Gandhi, RN 505 [place] [address] documented as of this encounter Visit Diagnoses Not on filedocumented in this encounter Additional Health Concerns Assessment Noted Time PHQ-9 Depression Total Score: 15 024 11:50 AM EST documented as of this encounter Care Teams Vocational Teacher Relationship Specialty Start Date End Date Carlo Santana MD [address] [place] [address] PCP - General Internal Medicine 12/28/17 documented as of this encounter
--- OUTSIDE RECORDS SUMMARY | 2025-01-17 17:00 | XMS_ITS | Encounter Summary ---
Author Organization [employer] Address [address] [facility] 7t [place] [address] Care Team Providers Care Supervisor Felting Name Role Phone Carlo Santana MD Primary Care Provider [phone] Reason for Visit * Reason Onset Date Comments Med Refill 02/20/2024 Encounter Details Date Type Department Care Team ([facility] st Contact Info) Description 02/20/2024 Telephone [facility] MEDICINE 230 [place] [address] Carlo Santana MD 505 [place], [place] [phone] Med Refill Social History Tobacco Use Types [...] (1000 UT) capsule To be sent to: [facility]/pharmacy #[id number] LEATHA PHILLIPS - [phone] [facility] documented in this encounter Plan of Treatment Upcoming Encounters Date Type Department Care Team ([facility] st Contact Info) Description 01/30/2025 10:30 AM EST Clinical Support [facility] MED & PEDS 505 [place] [address] Fariba Gandhi RN 505 [place] [address] documented as of this encounter Visit Diagnoses Not on filedocumented in this encounter Additional Health Concerns Assessment Noted Time PHQ-9 Depression Total Score: 15 024 11:50 AM EST documented as of this encounter Care Teams Supervisor Felting Relationship Specialty Start Date End Date Carlo Santana MD 505 [facility] [place] [address] PCP - General Internal Medicine 12/28/17 documented as of this encounter
--- OUTSIDE RECORDS SUMMARY | 2025-01-17 17:00 | XMS_ITS | Clinical Summary ---
Author Organization [employer] Address [address] [place] [address] Care Team Providers Care Film Sound Coordinator Name Role Phone Carlo Santana MD Primary Care Provider [phone] Allergies No known active allergies Medications * This document contains information received from the source organization and may not represent a complete record from that organization. naloxone (Narcan) 4 mg/0.1 mL nasal spray Administer 0.1 mL into affected nostril(s). [place] 0.1 milliliter by intranasal route in 1 [...] ions:Bipolar affective disorder, remission status unspecified (CMS/HCC) (HCC) TAKE 1 CAPSULE BY MOUTH EVERY 8 HOURS IF NEEDED FOR ITCHING 270 capsule 10/27/19 25 Active albuterol 108 (90 Base) MCG/ACT inhalerIndicat ions:SOB (shortness of breath) INHALE 2 PUFFS BY MOUTH EVERY 4 HOURS NEEDED FOR WHEEZING 18 g 11/01/19 25 Active Nutritional Supplements (Boost High Protein) liquidIndicati ons:Hypoprotei nemia (CMS/[facility]) DRINK 1 CAN TWICE DAILY 5688 mL 11 11/03/19 25 Active clonazePAM (KlonoPIN) 1 MG tabletIndicati [...] 30 g 1 11/23/19 25 026 Active econazole nitrate 1 % creamIndicatio ns:Seborrheic [...] DAY 90 tablet 1 12/04/19 25 Active cetirizine (ZyrTEC) 10 MG tabletIndicati ons:Seasonal allergies Take 1 tablet (10 mg) by mouth in the morning. 90 tablet 3 12/20/19 25 Active celecoxib (CeleBREX) 200 MG capsuleIndicat ions:Chronic left shoulder pain,Muscle spasm TAKE 1 CAPSULE BY MOUTH IN THE MORNING AND AT BEDTIME NEEDED FOR MODERATE PAIN 60 capsule 12/26/19 25 Active ondansetron (Zofran) 4 MG tablet TAKE 2 TABLETS BY MOUTH EVERY 8 HOURS NEEDED FOR NAUSEA AND VOMITING 30 tablet 3 01/12/20 25 Active ziprasidone (Geodon) 80 MG capsuleIndicat ions:Bipolar affective disorder, remission status unspecified (CMS/HCC) (HCC) TAKE ONE CAPSULE TWICE DAILY 60 capsule 2 01/15/20 25 Active oxyCODONE (Roxicodone) 10 MG immediate release tabletIndicati ons:Chronic left-sided low back pain with left-sided sciatica Take 1 tablet (10 mg) by mouth every 8 (eight) hours if needed for severe pain for up to 28 days. 84 tablet 01/15/20 25 025 Active cetirizine (ZyrTEC) 10 MG tabletIndicati ons:Seasonal allergies TAKE 1 TABLET BY MOUTH EVERY DAY IN THE MORNING 90 tablet 3 07/07/19 24 025 Discontinued(R eorder (will not trigger notification to Pharmacy)) ziprasidone (Geodon) 80 MG capsuleIndicat ions:Bipolar affective disorder, remission status unspecified (CMS/HCC) (HCC) Take 1 capsule (80 mg) by mouth 2 times daily. 60 capsule 2 11/08/19 25 025 Discontinued ondansetron (Zofran) 4 MG tablet TAKE 2 TABLETS BY MOUTH EVERY 8 HOURS NEEDED FOR NAUSEA AND VOMITING 30 tablet 3 11/23/19 25 025 Discontinued celecoxib (CeleBREX) 200 MG capsuleIndicat ions:Chronic left [...] 19, 2024. 84 tablet 12/20/19 25 025 Discontinued(R eorder (will not trigger notification to Pharmacy)) Active Problems Problem Noted Date Diagnosed Date Long-term current use of opiate analgesic 2024 Lumbar radiculopathy 03/22/2024 Secondary female infertility 12/09/2023 [...] the last 15 years. Now engaged with [facility] for OP, and waiting to be connected with psych provider. Severe anxiety is interfering with daily activities and affecting her interpersonal relationships. PLAN: (check all that apply) Continue with current services (defined as services in the past 12 months) Behavioral Health Integration Plan Patient Self Plan Patient to utilize skills provided in intervention , Patient to reach out to [facility] team as needed, Patient to engage in OP therapy , and Patient to reach out to [facility] as needed. Pt reports being connected with [facility] for individual therapy. She completed third OP session and was added to wait list for psych provider within [facility]. Mixed stress and urge urinary incontinence [...] the last 15 years. Now engaged with [facility] for OP, and waiting to be connected with psych provider. Severe anxiety is interfering with daily activities and affecting her interpersonal relationships. PLAN: (check all that apply) Continue with current services (defined as services in the past 12 months) Behavioral Health Integration Plan Patient Self Plan Patient to utilize skills provided in intervention , [facility], Patient to engage in OP therapy , and Patient to reach out to [facility] as needed. Pt reports being connected with [facility] for individual therapy. She completed third OP session and was added to wait list for psych provider within [facility]. Obesity with body mass index 30 [...] Encounters Date Type Department Care Team Description 01/14/[address] [phone] Carlo Santana MD Med Refill 01/14/[address] [address] Carlo Santana MD Med Refill 01/13/2025 Refill [facility] [address] [place] [address] Carlo Santana MD Bipolar affective disorder, remission status unspecified (CMS/HCC) (HCC); Chronic left-sided low back pain with left-sided sciatica 01/11/[address] [address] Carlo Santana MD 01/08/[address] [address] Carlo Santana MD Med Refill 01/08/2025 Telephone [facility] [address] [place] [address] Carlo Santana MD Appointment Request 01/04/[address] [address] Carlo Santana MD Med Refill 01/02/2025 Telephone [facility] [address] [place] [address] Fariba Gandhi, HUGO 12/28/2024 Orders Only GENERIC EXTERNAL DATA DEPARTMENT Provider, Generic External Data 12/25/[address] [address] Carlo Santana MD Chronic left shoulder pain; Muscle spasm 12/20/[address] [address] Carlo Santana MD No Show 12/19/2024 Telephone [facility] [address] [place] [address] Carlo Santana MD Chart Prep 12/19/[address] [address] Carlo Santana MD Med Refill 12/17/2024 Telephone [facility] [address] [place] [address] Carlo Santana MD 12/14/2024 Orders Only [facility] [address] [place], [place] [phone] Carlo Santana MD Chronic left-sided low back pain with left-sided sciatica (Primary Dx) 12/14/[address] [address] Carlo Santana MD Nurse Triage 12/14/2024 Refill [facility] [address] [place] [address] Oneal Liu MD 12/13/2024 Results Follow-Up [facility] [address] [place] [phone] Lupe Loyola RN Comprehensive Metabolic Panel, Magnesium, TSH W/Reflex to FT4, Vitamin B12/Folate, Serum Panel 12/13/2024 Telephone [facility] [address] [place] [address] Carlo Santana MD Results 12/13/2024 Telephone [facility] [address] [place] [address] Carlo Santana MD Referral 12/12/2024 Orders Only GENERIC EXTERNAL DATA DEPARTMENT Provider, Generic External Data 12/06/[address] [address] Carlo Santana MD Med Refill 12/06/[address] [address] Carlo Santana MD Med Refill 12/04/2024 Telephone [facility] [address] [place] [address] Carlo Santana MD 12/03/2024 Refill [facility] [address] [place] [address] Carlo Santana MD Chronic left-sided low back pain with left-sided sciatica 12/03/2024 Refill [facility] [address] [place] [address] Carlo Santana MD Laceration of nose without foreign body, initial encounter; Chronic left shoulder pain; Muscle spasm 11/22/2024 Refill [facility] [address] [place] [address] Carlo Santana MD 11/21/2024 Orders Only [facility] [address] [place] [address] Carlo Santana MD Daily headache (Primary Dx) 11/21/2024 Telephone [facility] [address] [place] [address] Carlo Santana MD MRI BRAIN ORDER 11/20/2024 11:15 AM EDT Office Visit [facility] [address] [place] [phone] Carlo Santana MD Daily headache (Primary Dx); Paresthesia; Anxiety; Chronic left-sided low back pain with left-sided sciatica; Seborrheic dermatitis 11/20/2024 Travel 11/19/2024 Telephone [facility] [address] [place] [address] Carlo Santana MD Chart Prep 11/19/2024 Telephone [facility] [address] [place] [address] Carlo Santana MD Medication Question 11/19/2024 Telephone [facility] [address] [place] [address] Carlo Santana MD Med Refill 11/16/2024 Refill [facility] [address] [place] [address] Carlo Santana MD Chronic left-sided low back pain with left-sided sciatica 11/13/2024 Refill [facility] [address] [place] [address] Carlo Santana MD Chronic left-sided low back pain with left-sided sciatica 11/13/2024 Telephone [facility] [address] [place] [address] Carlo Santana MD Med Refill 11/13/2024 Refill [facility] [address] [place] [address] Carlo Santana MD VAL[place] (generalized anxiety disorder) 11/11/2024 Refill [facility] [address] [place] [address] Carlo Santana MD Chronic left shoulder pain; Muscle spasm 11/09/2024 Refill [facility] [address] [place] [address] Carlo Santana MD Chronic left shoulder pain; Muscle spasm; Chronic left-sided low back pain with left-sided sciatica 11/07/2024 Telephone [facility] [address] [place] [address] Carlo Santana MD Med Refill 11/07/2024 Telephone [facility] [address] [place] [address] Carlo Santana MD FYI 11/06/2024 Refill [facility] [address] [place] [address] Carlo Santana MD Chronic left-sided low back pain with left-sided sciatica 11/02/2024 Refill [facility] [address] [place] [address] Carlo Santana MD Hypoproteinemia (CMS/HCC) 10/30/2024 Telephone [facility] [address] [place] [address] Carlo Santana MD Medication Question 10/30/2024 Telephone [facility] [address] [place] [address] Carlo Santana MD Med Refill 10/30/2024 Refill [facility] [address] [place] [address] Carlo Santana MD SOB (shortness of breath); Chronic left-sided low back pain with left-sided sciatica 10/29/2024 Telephone [facility] [address] [place] [address] Carlo Santana MD Med Refill 10/26/2024 Orders Only [facility] [address] [place] [address] Carlo Santana MD Chronic left-sided low back pain with left-sided sciatica 10/26/2024 Refill [facility] [address] [place] [address] Carlo Santana MD Chronic left-sided low back pain with left-sided sciatica 10/26/[address] [address] Carlo Santana MD Nurse Triage 10/26/[address] [address] Carlo Santana MD Med Refill 10/25/[address] [address] Carlo Santana MD Medication Question 10/25/[address] [address] Carlo Santana MD Bipolar affective disorder, remission status unspecified ([facility]) 10/25/2024 Telephone [facility] [address] [place] [address] Carlo Santana MD Med Refill 10/25/2024 Refill [facility] [address] [place] [address] Carlo Santana MD Bipolar affective disorder, remission status unspecified (CMS/HCC); Chronic left-sided low back pain with left-sided sciatica 10/23/2024 Telephone [facility] [address] [place] [address] Carlo Santana MD Medication Question 10/23/2024 Refill [facility] [address] [place] [address] Carlo Santana MD SOB (shortness of breath) 10/23/2024 Refill [facility] [address] [place], [place] [phone] Carlo Santana MD Chronic left shoulder pain; Rib pain; Chronic left-sided low back pain with left-sided sciatica; Neck pain 10/22/2024 Telephone [facility] [address] [place] [address] Carlo Santana MD no show 10/22/2024 Telephone [facility] [address] [place], [place] [phone] Carlo Santana MD Referral 10/22/2024 Refill [facility] [address] [place], [place] [phone] Carlo Santana MD Chronic left-sided low back pain with left-sided sciatica 10/22/2024 Refill [facility] [address] [place] [address] Carlo Santana MD 10/19/2024 Refill [facility] [address] [place], [place] [phone] Carlo Santana MD Chronic left-sided low back pain with left-sided sciatica 10/18/2024 Telephone [facility] [address] [place] [phone] Carlo Santana MD Nurse Triage 10/18/2024 Telephone [facility] [address] [place] [address] Carlo Santana MD Med Refill from Last [...] Description 01/30/2025 10:30 AM EST Clinical Support [facility] [address] [place] [address] Fariba Gandhi, RN [address] [place] [address] Health Maintenance Due Date Last Done Comments [...] Routine 12/28/2024 9:56 AM EDT Elevated glucose VITAMIN B6 Routine 12/28/2024 9:56 AM EDT Daily headache Paresthesia VITAMIN B1 Routine 12/28/2024 9:56 AM EDT Daily headache Paresthesia BASIC METABOLIC PANEL Routine 12/28/2024 9:56 AM EDT Chronic right shoulder pain URINALYSIS, COMPLETE Routine 12/28/2024 9:50 AM EDT CULTURE, URINE, ROUTINE Routine 12/28/2024 9:50 AM EDT T-SPOT(R).TB Routine 12/12/2024 11:07 AM EDT VITAMIN [...] Recently Relevant to Health Maintenance Results * (ABNORMAL) Vitamin B1 (12/28/2024 9:56 AM EDT) Vitamin B1 7(A) 8 - 30 nmol/L [facility] Comment:Vitamin supplementat ion within 24 hours prior toblood draw may affect the accuracy of the results.This test was developed and its analytical performancecharacteristics have been determined by [employer] [place], [place]. It hasnot been cleared or approved by the U.S. Food and DrugAdministration. This assay has been validated pursuantto the CLIA regulations and is used for clinicalpurposes.THIS TEST WAS PERFORMED AT:[employer] [id number] [place] [address]PRRPLMPOK KOENIG MD,PHD Blood Venous blood specimen / Unknown 12/28/2024 9:56 AM EDT 12/28/2024 9:56 AM EDT Carlo Santana MD LAB BLOOD ORDERABLES Final Result [facility] [address] [place] [phone] * (ABNORMAL) Vitamin B6 (12/28/2024 9:56 AM EDT) Vitamin B6 22.8(A) 2.1 - 21.7 ng/mL [facility] Comment:Vitamin supplementat ion within 24 hours prior toblood draw may affect the accuracy of the results.This test was developed and its analytical performancecharacteristics have been determined by [place] It hasnot been cleared or approved by the U.S. Food and DrugAdministration. This assay has been validated pursuantto the CLIA regulations and is used for clinicalpurposes.THIS TEST WAS PERFORMED AT:[employer]/[id number] [place] [address]DAVCZYYOK KOENIG MD,PHD Blood Venous blood specimen / Unknown 12/28/2024 9:56 AM EDT 12/28/2024 9:56 AM EDT us Carlo Santana MD LAB BLOOD ORDERABLES Final Result Performing Organization Address [facility] Co de Phone Number [facility] [address] [place] [address] [phone] * Hemoglobin A1c (12/28/2024 9:56 AM EDT) Hemoglobin A1c 5.1 <6.0 % [facility] Comment:Hemoglobin A1C Refer ence Range Adults: 4.8 - 6.0 % Non diabetic: < 6.0 % Goal: < 7.0 %Additional Action Suggested: > 8.0 %Note: Hemoglobin A1c results are invalid for patients with abnormal amounts of HbF. Blood transfusions may impact the HbA1c concentration in the patient sample. Estimated Average Glucose 100 mg/dL [facility] Comment:eAG = Estimated ave rage glucose which is %A1C expressed asaverage glucose, using the formula of the E6Z-LoydwznXcvjdur Glucose study (ADAG), Diabetes Care, Vol.31,#8,Oct. 2007 Blood Venous blood specimen / Unknown 12/28/2024 9:56 AM EDT 12/28/2024 9:56 AM EDT us Carlo Santana MD LAB BLOOD ORDERABLES Final Result Performing Organization Address [facility] Co de Phone Number [facility] [address] [place] [address] [phone] * (ABNORMAL) Basic Metabolic Panel (12/28/2024 9:56 AM EDT) Sodium 140 135 - 145 mmol/L [facility] Potassium 4.1 3.3 - 5.1 mmol/L [facility] Chloride 110(H) 96 - 108 mmol/L [facility] Carbon Dioxide 24 22 - 29 mmol/L [facility] Anion Gap 10(L) 12 - 20 [facility] Urea Nitrogen (BUN) 8(L) 9 - 16 mg/dL [facility] Creatinine, Serum 0.81 0.5 - 1.4 mg/dL [facility] Estimated Glomerular Filt Rate >60 [facility] Comment:Chronic Kidney Disea se: Estimated GFR < 60 mL/min/1.65s6Xplyum Kidney Disease: Estimated GFR < 15 mL/min/1.73m2 Glucose 112 60 - 115 mg/dL [facility] Calcium 9.1 8.4 - 10.2 mg/dL [facility] Blood Venous blood specimen / Unknown 12/28/2024 9:56 AM EDT 12/28/2024 9:56 AM EDT us Carlo Santana MD LAB BLOOD ORDERABLES Final Result [facility] [address] [place] [phone] [phone] * (ABNORMAL) Urinalysis Complete (12/28/2024 9:50 AM EDT) Color Urine Yellow [facility] Appearance Urine Clear [facility] PH 8.5 5.0 - 9.0 [facility] Glucose Urine UA Negative Negative mg/dL [facility] Urine Blood Negative Negative [facility] Specific [place] - Urine 1.010 1.005 - 1.025 [facility] Urine Protein Negative Neg-Trace mg/dL [facility] Urine Ketones Negative Negative mg/dL [facility] Nitrite Urine Negative Negative [facility] Leukocyte Esterase Urine Large (3+)(A) Negative [facility] RBC Urine 0-2 0 - 2 /HPF [facility] Urine WBC >50(A) 0 - 5 /HPF [facility] Urine Squamous Epithelial Cell 0-2 0 - 2 /HPF [facility] Urine Bacteria None Seen None Seen [facility] Hyaline Casts, Urine 0-2 0 - 2 /LPF [facility] 12/28/2024 9:50 AM EDT 12/28/2024 10:17 AM EDT Generic External Data Provider LAB URINE ORDERAB LES Final Result Performing Organization Address City/[facility]/ZIP Co de Phone Number [facility] [address] [place] [phone] * Culture, Urine, Routine (12/28/2024 9:50 AM EDT) Urine Urine specimen obtained by clean catch procedure / Unknown 12/28/2024 9:50 AM EDT 12/28/2024 10:17 AM EDT Comment:[facility]ACC Narrative [facility] - 12/30/2024 7:31 AM EDT Escherichia coli Quant 10,000 to 50,000 cfu/mL Escherichia coli: Ampicillin 8(S) Escherichia coli: Cefazolin (Urine) <=1(S) Escherichia coli: Cefepime <=0.12(S) Escherichia coli: Ceftriaxone <=0.25(S) Escherichia coli: Ciprofloxacin <=0.06(S) Escherichia coli: Gentamicin <=1(S) Escherichia coli: Nitrofurantoin <=16(S) Escherichia coli: Trimethoprim/Sulfamethoxazole <=20(S) Specimen Source: Urine clean catch Generic External Data Provider LAB MICROBIOLOGY - GENERAL ORDERABLES Final Result Performing Organization Address City/[facility]/ZIP Co de Phone Number [facility] [address] [place] [address] [phone] * Vitamin B12/Folate, Serum Panel (12/12/2024 11:07 AM EDT) Vitamin B12 666 200 - 900 pg/mL [facility] Comment:NORMAL 200-900 PG/ML INDETERMINATE 160-199 PG/ML DEFICIENT < 160 PG/ML Folate 8.1 > or = 4.0 ng/mL [facility] Comment:Reference Values:> o r = 4.0 ng/mL< 4.0 ng/mL suggests folate deficiency Methotrexate, aminopterin and folinic acid(leucovorin) are chemotherapeutic agents whose molecularstructures are similar to folate; therefore, the Architectfolate assay cannot be used for patients using these drugs. Blood Venous blood specimen / Unknown 12/12/2024 11:07 AM EDT 12/12/2024 1:58 PM EDT us Carlo Santana MD LAB BLOOD ORDERABLES Final Result [facility] [address] [place] [phone] * T-SPOT??.TB (12/12/2024 11:07 AM EDT) T Spot TB Negative Negative [facility] Comment:A negative test resu lt [...] as aquantitative test. TS PANEL A 0 [facility] TS PANEL B 1 [facility] Negative Control Passed [facility] Positive Control Passed [facility] Comment:For additional infor francis, please refer [email or web address]/faq/[email or web address](This link is being provided for informational/educational purposes only.)THIS TEST WAS PERFORMED AT:[employer]/[id number] [place] [address]JUDKVCMOK KOENIG MD,PHD 12/12/2024 11:0 7 AM EDT 12/12/2024 1:58 PM EDT us Generic External Data Provider LAB BLOOD ORDERAB LES Final Result Performing Organization Address [facility]/ZIP Co de Phone Number [facility] [address] [place] [phone] * TSH W/Reflex to FT4 (12/12/2024 11:07 AM EDT) Pathologist [facility] TSH reflex Free T4 1.76 0.32 - 4.0 uIU/mL [facility] Blood Venous blood specimen / Unknown 12/12/2024 11:07 AM EDT 12/12/2024 1:58 PM EDT us Carlo Santana MD LAB BLOOD ORDERABLES Final Result Performing Organization Address [facility] Co de Phone Number [facility] [address] [place] [phone] * (ABNORMAL) CBC auto differential (12/12/2024 11:07 AM EDT) White Blood Count 7.3 4.8 - 10.8 X10*3/uL [facility] Red Blood Count 3.80(L) 4.20 - 5.50 X10*6/uL [facility] Hemoglobin 12.4 12.0 - 16.0 g/dl [facility] Hematocrit 37.2 37.0 - 47.0 % [facility] Mean Corpuscular Volume 97.9 80.0 - 98.0 fL [facility] Mean Corpuscular Hemoglobin 32.6 27.0 - 33.0 pg [facility] Mean Corpuscular HGB Conc 33.3 31.0 - 35.0 g/dl [facility] Red Cell Distribution Width 14.4 11.0 - 16.0 % [facility] Platelet Count 338 160 - 400 X10*3/uL [facility] Mean Platelet Volume 10.0 9.4 - 12.3 fL [facility] Neutrophils Percent Auto 69.4 45 - 73 % [facility] Imm Gran Pct Auto 0.3 0.0 - 0.4 % [facility] Lymphocytes Percent Auto 22.3 20 - 40 % [facility] Monocytes Percent Auto 4.2 2 - 11 % [facility] Eosinophils Percent Auto 3.0 0 - 4 % [facility] Basophils Percent Auto 0.8 0 - 2 % [facility] [facility] NRBC Pct Auto 0.0 0.0 - 0.2 /100WBC [facility] Neutrophils Absolute Auto 5.1 2.0 - 8.3 x10*3/uL [facility] Imm Gran Abs Auto 0.02 0.00 - 0.03 X10*3/uL [facility] Lymphocytes Absolute Auto 1.6 1.2 - 4.9 X10*3/uL [facility] Monocytes Absolute Auto 0.3 0.1 - 1.2 X10*3/uL [facility] Eosinophils Absolute Auto 0.2 0.0 - 0.4 X10*3/uL [facility] Basophils Absolute Auto 0.1 0.0 - 0.2 X10*3/uL [facility] NRBC Abs Auto 0.000 0.0 - 0.012 X10*3/uL [facility] Blood Venous blood specimen / Unknown 12/12/2024 11:07 AM EDT 12/12/2024 1:58 PM EDT us Carlo Santana MD LAB BLOOD ORDERABLES Final Result [facility] [address] [place] [address] [phone] * Magnesium (12/12/2024 11:07 AM EDT) Pathologist [facility] Magnesium 2.1 1.6 - 2.6 mg/dL [facility] Blood Venous blood specimen / Unknown 12/12/2024 11:07 AM EDT 12/12/2024 1:58 PM EDT Carlo Santana MD LAB BLOOD ORDERABLES Final Result Performing Organization Address City/[facility]/ZIP Co de Phone Number [facility] [address] [place] [address] [phone] * Hepatic Function Panel (12/12/2024 11:07 AM EDT) Pathologist [facility] Bilirubin, Direct 0.2 0.0 - 0.5 mg/dL [facility] Blood Venous blood specimen / Unknown 12/12/2024 11:07 AM EDT 12/12/2024 1:58 PM EDT Carlo Santana MD LAB BLOOD ORDERABLES Final Result Performing Organization Address City/[facility] de Phone Number [facility] [address] [place] [phone] * (ABNORMAL) Comprehensive Metabolic Panel (12/12/2024 11:07 AM EDT) Pathologist [facility] Sodium 141 135 - 145 mmol/L [facility] Potassium 4.0 3.3 - 5.1 mmol/L [facility] Chloride 108 96 - 108 mmol/L [facility] Carbon Dioxide 27 22 - 29 mmol/L [facility] Anion Gap 10(L) 12 - 20 [facility] Urea Nitrogen (BUN) 12 9 - 16 mg/dL [facility] Creatinine, Serum 0.66 0.5 - 1.4 mg/dL [facility] Estimated Glomerular Filt Rate >60 [facility] Comment:Chronic Kidney Disea se: Estimated GFR < 60 mL/min/1.41b3Upddnr Kidney Disease: Estimated GFR < 15 mL/min/1.73m2 Glucose 128(H) 60 - 115 mg/dL [facility] Calcium 8.8 8.4 - 10.2 mg/dL [facility] Bilirubin, Total 0.4 0.0 - 1.0 mg/dL [facility] Aspartate Amino Transferase 34(H) 5 - 31 U/L [facility] Alanine Aminotransferase 51(H) 0 - 31 U/L [facility] Total Protein 6.8 6.5 - 8.0 g/dL [facility] Albumin Level 4.4 3.5 - 5.0 g/dL [facility] Alkaline Phosphatase 63 39 - 117 U/L [facility] Blood Venous blood specimen / Unknown 12/12/2024 11:07 AM EDT 12/12/2024 1:58 PM EDT us Carlo Santana MD LAB BLOOD ORDERABLES Final Result Performing Organization Address City/[facility]/ZIP Co de Phone Number [facility] [address] [place] [phone] * Hepatitis A,B,C Profile (08/16/2024 11:35 AM EDT) Hepatitis A IgM Nonreactive Nonreactive [facility] Comment:IgM antibodies to OLIVA V not detected; does not exclude earlyacute or recovered HAV infection. ~Hepatitis B Surface Antibody REACTIVE Nonreactive [facility] Comment:REACTIVE: > 11.99 mI U/mL Hepatitis B Core Antibody Nonreactive Nonreactive [facility] Hepatitis C Antibody Nonreactive Nonreactive [facility] Comment:Antibodies to HCV no t detected; does not exclude early acuteHCV infection. Hepatitis B Surface Ag Negative Negative [facility] Blood Venous blood specimen / Unknown 08/16/2024 11:35 AM EDT 08/16/2024 11:35 AM EDT us Carlo Santana MD LAB BLOOD ORDERABLES Final Result [facility] [address] [place] [address] [phone] * HIV-1/2 Antigen and Antibodies, Fourth Generation, with Reflexes (01/26/2024 11:58 AM EST) HIV AB/AG Nonreactive Nonreactive [facility] Comment:HIV-1 p24 Ag and/or HIV-1/HIV-2 Ab not detected.A test result that is nonreactive does not exclude thepossibility of exposure to or infection with HIV-1 and/orHIV-2. Nonreactive results in this assay for individualswith prior exposure to HIV-1 and/or HIV-2 may be due toantigen and antibody levels that are below the limit ofdetection of this assay.The Hemarina HIV Ag/Ab Combo assay result andsupplemental assay results should be interpreted inconjunction with the patient's clinical presentation,history and other laboratory results. If the results areinconsistent with clinical evidence, additional testing issuggested to confirm the result. Blood Venous blood specimen / Unknown 01/26/2024 11:58 AM EST 01/26/2024 2:10 PM EST Carlo Santana MD LAB BLOOD ORDERABLES Final Result Performing Organization Address [facility] Co de Phone Number [facility] [address] [place] [address] [phone] * Hm Pap Smear (02/11/2021) Pap Negative for intraephithelial lesion or malignancy Negative for intraephithelial lesion or malignancy, Other HPV Undetected Undetected, Indeterminate, Quantitative, Not Detected [facility] Provider HEALTH MAINTENANCE Final Result from Last 3 Months or Most Recently Relevant to Health Maintenance [place] [facility] STAND ADULT [address] [facility] [place] [address] LEATHA PHILLIPS Care Teams Film Sound Coordinator Relationship Specialty Start Date End Date Carlo Santana MD [address] [place] [address] [place] [address] PCP - General Internal Medicine 12/28/17
--- OUTSIDE RECORDS SUMMARY | 2025-01-17 17:00 | XMS_ITS | Encounter Summary ---
Author Organization [employer] Address [address] [facility] 7t [place] [address] Care Team Providers Care Medical Practitioners Name Role Phone Carlo Santana MD Primary Care Provider [phone] Reason for Visit * Reason Onset Date Comments Appointment Request 09/16/2023 Encounter Details Date Type Department Care Team ([facility] Contact Info) Description 09/16/2023 Telephone [facility] MED [facility] PEDS [address] [place] [address] Carlo Santana MD [address] [place] [address] Appointment Request Social History Tobacco Use Types [...] requesting telehealth with PCP to discuss medication. Air Pollution Analyst attempted to schedule for November but pt declined and stated would like a sooner appointment. Denied triage. Contact pt at [phone] documented in this encounter Plan of Treatment Upcoming Encounters Date Type Department Care Team (Late st Contact Info) Description 01/30/2025 10:30 AM EST Clinical Support [facility] MED [facility]EDS [address] [place] [address] Fariba Gandhi, RN [address] [place] [address] documented as of this encounter Visit Diagnoses Not on filedocumented in this encounter Additional Health Concerns Assessment Noted Time PHQ-9 Depression Total Score: 3 06/04/19 23 3:42 PM EDT documented as of this encounter Care Teams Medical Practitioners Relationship Specialty Start Date End Date Carlo Santana MD [address] [place] [address] PCP - General Internal Medicine 12/28/17 documented as of this encounter
--- OUTSIDE RECORDS SUMMARY | 2025-01-17 17:00 | XMS_ITS | Encounter Summary ---
Author Organization [employer] Address [address] [facility] 7t [place] [address] Care Team Providers Care Supervisor Cold Rolling Name Role Phone Carlo Santana MD Primary Care Provider [phone] Reason for Visit * Reason Onset Date Comments Med Refill 09/17/2023 Encounter Details Date Type Department Care Team (Late st Contact Info) Description 09/17/2023 Refill [facility] MEDICINE [address] [place] [address] Carlo Santana MD [address] [facility] [address] [place], [place] [phone] Chronic left-sided low back pain with left-sided [...] Support [facility] MED & PEDS [address] [place] [address] Fariba Gandhi RN [address] [place] [address] documented as of this encounter Visit Diagnoses Diagnosis Chronic left-sided low back pain with left-sided sciatica documented in this encounter Additional Health Concerns Assessment Noted Time PHQ-9 Depression Total Score: 3 06/04/19 23 3:42 PM EDT documented as of this encounter Care Teams Supervisor Cold Rolling Relationship Specialty Start Date End Date Carlo Santana MD [address] [place] [address] PCP - General Internal Medicine 12/28/17 documented as of this encounter
--- OUTSIDE RECORDS SUMMARY | 2025-01-17 17:00 | XMS_ITS | Encounter Summary ---
Author Organization [employer] Address [address] [facility] 7t [place] [address] Care Team Providers Care Front Office Attendant Name Role Phone Carlo Santana MD Primary Care Provider [phone] Reason for Visit * Reason Onset Date Comments Med Refill 03/01/2023 Encounter Details Date Type Department Care Team ([facility] st Contact Info) Description 03/01/2023 Telephone [facility] MEDICINE [address] [place] [address] Carlo Santana MD [address] [place], [place] [phone] Med Refill Social History Tobacco Use Types [...] refill on oxyCODONE-acetaminophen (Percocet) 5-325 MG tablet [facility]/pharmacy #[id number] LEATHA PHILLIPS - [id number] [facility] documented in this encounter Plan of Treatment Upcoming Encounters Date Type Department Care Team (Late st Contact Info) Description 01/30/2025 10:30 AM EST Clinical Support [facility] MED & PEDS [address] [place] [address] Fariba Gandhi, HUGO [address] [place] [address] documented as of this encounter Visit Diagnoses Not on filedocumented in this encounter Additional Health Concerns Assessment Noted Time PHQ-9 Depression Total Score: 3 06/04/19 23 3:42 PM EDT documented as of this encounter Care Teams Front Office Attendant Relationship Specialty Start Date End Date Carlo Santana MD [address] [place] [address] PCP - General Internal Medicine 12/28/17 documented as of this encounter
--- OUTSIDE RECORDS SUMMARY | 2025-01-17 17:00 | XMS_ITS | Encounter Summary ---
Author Organization [employer] Address [address] [facility] 7t [place] [address] Care Team Providers Care Abrasive Band Winder Name Role Phone Carlo Santana MD Primary Care Provider [phone] Reason for Visit * Reason Onset Date Comments Prior Authorization 09/14/2023 Encounter Details Date Type Department Care Team ([facility] Contact Info) Description 09/14/2023 Telephone [facility] CH[facility] MED & PEDS [address] [place] [address] Carlo Santana MD [address] [place] [address] Prior Authorization Social History Tobacco Use Types Packs/Day Years Used Date Smoking Tobacco: Never Passive Smoke Exposure: Never Smokeless Tobacco: Never Alcohol Use Standard Drinks/Week Comments Never 0 (1 standard drink = 0.6 oz pur e alcohol) Depression Answer Date Recorded Patient Health Questionnaire-9 Score 3 06/03/2022 Housing Stability Answer Date Recorded What is your housing situation today? I have doinne william 12/27/[address] you [...] Description 01/30/2025 10:30 AM EST Clinical Support [facility] MED & PEDS [address] [place] [address] Fariba Gandhi, HUGO [address] [place] [address] documented as of this encounter Visit Diagnoses Diagnosis Chronic left-sided low back pain with left-sided sciatica documented in this encounter Additional Health Concerns Assessment Noted Time PHQ-9 Depression Total Score: 3 06/04/19 23 3:42 PM EDT documented as of this encounter Care Teams Abrasive Band Winder Relationship Specialty Start Date End Date Carlo Santana MD [address] [place] [address] PCP - General Internal Medicine 12/28/17 documented as of this encounter
--- OUTSIDE RECORDS SUMMARY | 2025-01-17 17:00 | XMS_ITS | Encounter Summary ---
Author Organization [employer] Address [address] [facility] 7t [place] [address] Care Team Providers Care Back Up Worker Name Role Phone Carlo Santana MD Primary Care Provider [phone] Reason for Visit * Reason Onset Date Comments Med Refill 10/18/2024 Encounter Details Date Type Department Care Team (Late st Contact Info) Description 10/18/2024 Telephone [facility] MEDICINE [address] [place] [address] Carlo Santana MD [address] [place], [place] [phone] Med Refill Social History Tobacco Use Types [...] immediate release tablet To be sent to: [facility]/pharmacy #[id number] LEATHA PHILLIPS - [id number] *aware due next week documented in this encounter Plan of Treatment Upcoming Encounters Date Type Department Care Team ([facility] st Contact Info) Description 01/30/2025 10:30 AM EST Clinical Support [facility] MED & PEDS [address] [place] [address] Fariba Gandhi, HUGO [address] [place] [address] documented as of this encounter Visit Diagnoses Not on filedocumented in this encounter Additional Health Concerns Assessment Noted Time PHQ-9 Depression Total Score: 6 08/22/19 25 10:16 AM EDT documented as of this encounter Care Teams Back Up Worker Relationship Specialty Start Date End Date Carlo Santana MD [address] [place] [address] PCP - General Internal Medicine 12/28/17 documented as of this encounter
--- OUTSIDE RECORDS SUMMARY | 2025-01-17 17:00 | XMS_ITS | Encounter Summary ---
Author Organization [employer] Address [address] [facility] 7t [place] [address] Care Team Providers Care Scoop Operator Name Role Phone Carlo Santana MD Primary Care Provider [phone] Reason for Visit * Reason Onset Date Comments Med Refill 11/01/2023 Encounter Details Date Type Department Care Team (Late st Contact Info) Description 11/01/2023 Telephone [facility] MEDICINE [address] [place] [address] Carlo Santana MD [address] [place], [place] [phone] Med Refill Social History Tobacco Use Types [...] MG tablet To be sent to: [facility]/pharmacy #[id number] LEATHA PHILLIPS - [id number] [facility] documented in this encounter Plan of Treatment Upcoming Encounters Date Type Department Care Team (Late st Contact Info) Description 01/30/2025 10:30 AM EST Clinical Support [facility] CH[facility] MED & PEDS [address] [place] [address] Fariba Gandhi, HUGO [address] [place] [address] documented as of this encounter Visit Diagnoses Not on filedocumented in this encounter Additional Health Concerns Assessment Noted Time PHQ-9 Depression Total Score: 3 06/04/19 23 3:42 PM EDT documented as of this encounter Care Teams Scoop Operator Relationship Specialty Start Date End Date Carlo Santana MD [address] [place] [address] PCP - General Internal Medicine 12/28/17 documented as of this encounter
--- OUTSIDE RECORDS SUMMARY | 2025-01-17 17:00 | XMS_ITS | Encounter Summary ---
Author Organization [employer] Address [address] [facility] 7t [place] [address] Care Team Providers Care Brush Fabrication Supervisor Name Role Phone Carlo Santana MD Primary Care Provider [phone] Reason for Visit * Reason Onset Date Comments Call Back Request 10/13/2023 Encounter Details Date Type Department Care Team ([facility] st Contact Info) Description 10/13/2023 Telephone [facility] MEDICINE [address] [place] [address] Carlo Santana MD [address] [facility] [address] [place], [place] [phone] Call Back Request Social History Tobacco Use [...] pt requesting a call back in regards TRAVEL 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 No further details provided. documented in this encounter Plan of Treatment Upcoming Encounters Date Type Department Care Team (Late st Contact Info) Description 01/30/2025 10:30 AM EST Clinical Support [facility] MED & PEDS [address] [place] [address] Fariba Gandhi, HUGO [address] [place] [address] documented as of this encounter Visit Diagnoses Not on filedocumented in this encounter Additional Health Concerns Assessment Noted Time PHQ-9 Depression Total Score: 3 06/04/19 23 3:42 PM EDT documented as of this encounter Care Teams Brush Fabrication Supervisor Relationship Specialty Start Date End Date Carlo Santana MD [address] [place] [address] PCP - General Internal Medicine 12/28/17 documented as of this encounter
--- OUTSIDE RECORDS SUMMARY | 2025-01-17 17:00 | XMS_ITS | Encounter Summary ---
Author Organization [employer] Address [address] [facility] 7t [place] [address] Care Team Providers Care Auto Body Repairer Name Role Phone Carlo Santana MD Primary Care Provider [phone] Reason for Visit * Reason Onset Date Comments Med Refill 10/18/2023 Encounter Details Date Type Department Care Team (Late st Contact Info) Description 10/18/2023 Telephone [facility] MEDICINE [address] [place] [address] Carlo Santana MD [address] [place], [place] [phone] Med Refill Social History Tobacco Use Types [...] 1 MG tablet To be sent to: [facility] documented in this encounter Plan of Treatment Upcoming Encounters Date Type Department Care Team (Late st Contact Info) Description 01/30/2025 10:30 AM EST Clinical Support [facility] CH[facility] MED & PEDS [address] [place] [address] Fariba Gandhi, HUGO [address] [place] [address] documented as of this encounter Visit Diagnoses Not on filedocumented in this encounter Additional Health Concerns Assessment Noted Time PHQ-9 Depression Total Score: 3 06/04/19 23 3:42 PM EDT documented as of this encounter Care Teams Auto Body Repairer Relationship Specialty Start Date End Date Carlo Santana MD [address] [place] [address] PCP - General Internal Medicine 12/28/17 documented as of this encounter
--- OUTSIDE RECORDS SUMMARY | 2025-01-17 17:00 | XMS_ITS | Encounter Summary ---
Author Organization [employer] Address [address] [facility] 7t [place] [address] Care Team Providers Care Foundry Patternmaker Name Role Phone Carlo Santana MD Primary Care Provider [phone] Reason for Visit * Reason Onset Date Comments Call Back Request 02/28/2024 Encounter Details Date Type Department Care Team ([facility] Contact Info) Description 02/28/2024 Telephone [facility] MEDICINE [address] [place] [address] Carlo Santana MD [address] [place], [place] [phone] Call Back Request Social History Tobacco Use [...] [facility] [address] [place] [address] Fariba Gandhi RN 505 [place] [address] documented as of this encounter Visit Diagnoses Not on filedocumented in this encounter Additional Health Concerns Assessment Noted Time PHQ-9 Depression Total Score: 15 024 11:50 AM EST documented as of this encounter Care Teams Foundry Patternmaker Relationship Specialty Start Date End Date Carlo Santana MD [address] [place] [address] PCP - General Internal Medicine 12/28/17 documented as of this encounter
--- OUTSIDE RECORDS SUMMARY | 2025-01-17 17:00 | XMS_ITS | Encounter Summary ---
Author Organization [employer] Address [address] [facility] 7t [place] [address] Care Team Providers Care Trimmer Hand Name Role Phone Carlo Santana MD Primary Care Provider [phone] Reason for Visit * Reason Comments Med Refill Encounter Details Date Type Department Care Team ([facility] st Contact Info) Description 11/02/2023 Refill [facility] MEDICINE [address] [place] [address] Carlo Santana MD [address] [facility] [address] [place], [place] [phone] Chronic left-sided low back pain with left-sided [...] ([facility] st Contact Info) Description 01/30/2025 10:30 AM EST Clinical Support [facility] MED & PEDS [address] [place] [address] Fariba Gandhi, HUGO [address] [place] [address] documented as of this encounter Visit Diagnoses Diagnosis Chronic left-sided low back pain with left-sided sciatica documented in this encounter Additional Health Concerns Assessment Noted Time PHQ-9 Depression Total Score: 3 06/04/19 23 3:42 PM EDT documented as of this encounter Care Teams Trimmer Hand Relationship Specialty Start Date End Date Carlo Santana MD [address] [place] [address] PCP - General Internal Medicine 12/28/17 documented as of this encounter
--- OUTSIDE RECORDS SUMMARY | 2025-01-17 17:00 | XMS_ITS | Encounter Summary ---
Author Organization [employer] Address [address] [place] [address] 7 [place] [address] Care Team Providers Care Fiberglass Machine Operator Name Role Phone Carlo Santana MD Primary Care Provider [phone] Encounter Details Date Type Department Care Team (Latest Contact Info) Description 01/18/2019 Abstract [facility] CONVERSIONS Dental, Provider, DDS Social History Tobacco [...] Description 01/30/2025 10:30 AM EST Clinical Support [facility] CHC MED & PEDS [address] [place] [address] Fariba Gandhi RN [address] [place] [address] documented as of this encounter Visit Diagnoses Not on filedocumented in this encounter Care Teams Fiberglass Machine Operator Relationship Specialty Start Date End Date Carlo Santana MD [address] [place] [address] PCP - General Internal Medicine 12/28/17 documented as of this encounter
--- OUTSIDE RECORDS SUMMARY | 2025-01-17 17:00 | XMS_ITS | Encounter Summary ---
Author Organization [employer] Address [address] [facility] 7t [place] [address] Care Team Providers Care Circle Beveler Name Role Phone Carlo Santana MD Primary Care Provider [phone] Encounter Details Date Type Department Care Team ([facility] st Contact Info) Description 11/07/2023 Orders Only [facility] CHC MED & PEDS [address] [place], [place] [phone] Carlo Santana MD [address] [place], [place] [phone] Muscle spasm Social History Tobacco Use Types [...] [facility] st Contact Info) Description 01/30/2025 10:30 AM EST Clinical Support [facility] CHC MED & PEDS [address] [place] [address] Fariba Gandhi, RN 505 [place] [address] documented as of this encounter Visit Diagnoses Diagnosis Muscle spasm Spasm of muscle documented in this encounter Additional Health Concerns Assessment Noted Time PHQ-9 Depression Total Score: 3 06/04/19 23 3:42 PM EDT documented as of this encounter Care Teams Circle Beveler Relationship Specialty Start Date End Date Carlo Santana MD [address] [place] [address] PCP - General Internal Medicine 12/28/17 documented as of this encounter
--- OUTSIDE RECORDS SUMMARY | 2025-01-17 17:01 | XMS_ITS | Encounter Summary ---
Author Organization [employer] Address [address] [place] [address] 7t [place] [address] Care Team Providers Care Luncheonette Operator Name Role Phone Carlo Santana MD Primary Care Provider [phone] Reason for Visit * Reason Onset Date Comments Med Refill 09/16/2022 Encounter Details Date Type Department Care Team ([facility] Contact Info) Description 09/16/2022 Telephone [facility] MED & PEDS [address] [place] [address] Carlo Santana MD [address] [place] [address] Med Refill Social History Tobacco Use Types [...] 10:30 AM EST Clinical Support [facility] MED & PEDS [address] [place] [address] Fariba Gandhi, HUGO [address] [place] [address] documented as of this encounter Visit Diagnoses Not on filedocumented in this encounter Additional Health Concerns Assessment Noted Time PHQ-9 Depression Total Score: 3 06/04/19 23 3:42 PM EDT documented as of this encounter Care Teams Luncheonette Operator Relationship Specialty Start Date End Date Carlo Santana MD [address] [place] [address] PCP - General Internal Medicine 12/28/17 documented as of this encounter
--- OUTSIDE RECORDS SUMMARY | 2025-01-17 17:01 | XMS_ITS | Encounter Summary ---
Author Organization [employer] Address 75 [facility] 7t [place] [address] Care Team Providers Care Cigarette Stamper Name Role Phone Carlo Santana MD Primary Care Provider [phone] Reason for Visit * Reason Comments Med Refill Encounter Details Date Type Department Care Team ([facility] Contact Info) Description 01/13/2025 Refill [facility] [address] [place], [place] [phone] Carlo Santana MD 505 [place] [address] Bipolar affective disorder, remission status unspecified (CMS/HCC) [...] Description 01/30/2025 10:30 AM EST Clinical Support [facility] [address] [place] [address] Fariba Gandhi RN 505 [place] [address] documented as of this encounter Visit Diagnoses Diagnosis Bipolar affective disorder, remission status unspecified (CMS/HCC) (HCC) Chronic left-sided low back pain with left-sided sciatica documented in this encounter Additional Health Concerns Assessment Noted Time PHQ-9 Depression Total Score: 6 08/22/19 25 10:16 AM EDT documented as of this encounter Care Teams Cigarette Stamper Relationship Specialty Start Date End Date Carlo Santana MD 505 [place] [address] PCP - General Internal Medicine 12/28/17 documented as of this encounter
--- OUTSIDE RECORDS SUMMARY | 2025-01-17 17:01 | XMS_ITS | Encounter Summary ---
Author Organization [employer] Address [address] [place] [address] 7t [place] [address] Care Team Providers Care Yoga Instructor Name Role Phone Carlo Santana MD Primary Care Provider [phone] Reason for Referral * Imaging (Routine) - Closed Specialty Diagnoses / Procedures Referred By Contac t Referred To Contact Radiology Diagnoses Daily headache Procedures MRA Head w/o Contrast Carlo Santana MD 505 [place] [address] Phone: tel: fax: [address] Phone: tel: fax: Referral ID Status Reason Start Date Expiration Date Visits Re quested Visits Authorized [id number] Closed 11/21/2024 11/21/2025 1 1 Encounter Details Date Type Department Care Team (Late st Contact Info) Description 11/21/2024 Orders Only [facility] MED & PEDS [address] [place], [place] [phone] Carlo Santana MD 505 [place] [address] Daily headache (Primary Dx) Social History Tobacco [...] Description 01/30/2025 10:30 AM EST Clinical Support [facility] MED & PEDS 505 [place] [address] Fariba Gandhi, HUGO 505 [place] [address] Scheduled Orders Name Type Priority Associated Diagnoses Orde r Schedule MRA Head w/o Contrast Imaging Routine Daily headache Expected: 11/21/2024, Expires: 11/21/2025 documented as of this encounter Visit Diagnoses Diagnosis Daily headache- Primary documented in this encounter Additional Health Concerns Assessment Noted Time PHQ-9 Depression Total Score: 6 08/22/19 25 10:16 AM EDT documented as of this encounter Care Teams Yoga Instructor Relationship Specialty Start Date End Date Carlo Santana MD 505 [place] [address] PCP - General Internal Medicine 12/28/17 documented as of this encounter
--- OUTSIDE RECORDS SUMMARY | 2025-01-17 17:01 | XMS_ITS | Encounter Summary ---
Author Organization [employer] Address [address] [place] [address] 7t [place] [address] Care Team Providers Care Relationship Advisor Name Role Phone Carlo Santana MD Primary Care Provider +- [phone] Reason for Visit * Reason Onset Date Comments Med Refill 10/28/2022 Encounter Details Date Type Department Care Team ([facility] Contact Info) Description 10/28/2022 Telephone [facility] MED & PEDS 505 [place] [address] Carlo Santana MD 505 [place] [address] Med Refill Social History Tobacco Use Types [...] [facility] MED & PEDS 505 [place] [address] Fariba Gandhi, HUGO 505 [place] [address] documented as of this encounter Visit Diagnoses Not on filedocumented in this encounter Additional Health Concerns Assessment Noted Time PHQ-9 Depression Total Score: 3 06/04/19 23 3:42 PM EDT documented as of this encounter Care Teams Relationship Advisor Relationship Specialty Start Date End Date Carlo Santana MD 505 [place] [address] PCP - General Internal Medicine 12/28/17 documented as of this encounter
--- OUTSIDE RECORDS SUMMARY | 2025-01-17 17:01 | XMS_ITS | Encounter Summary ---
Author Organization [employer] Address 75 [facility] 7t [place] [address] Care Team Providers Care Visual Basic Programmer Name Role Phone Carlo Santana MD Primary Care Provider [phone] Encounter Details Date Type Department Care Team ([facility] st Contact Info) Description 12/04/2024 Telephone [facility] MED[facility] [address] [place] [address] Carlo Santana MD 505 [place], [place] [phone] Social History Tobacco Use Types Packs/Day Years [...] [facility] MED & PEDS 505 [place] [address] Fariba Gandhi, HUGO 505 [place] [address] documented as of this encounter Visit Diagnoses Not on filedocumented in this encounter Additional Health Concerns Assessment Noted Time PHQ-9 Depression Total Score: 6 08/22/19 25 10:16 AM EDT documented as of this encounter Care Teams Visual Basic Programmer Relationship Specialty Start Date End Date Carlo Santana MD 505 [place] [address] PCP - General Internal Medicine 12/28/17 documented as of this encounter
--- OUTSIDE RECORDS SUMMARY | 2025-01-17 17:01 | XMS_ITS | Encounter Summary ---
Author Organization [employer] Address 75 [facility] 7t [place] [address] Care Team Providers Care Gyn Name Role Phone Carlo Santana MD Primary Care Provider [phone] Encounter Details Date Type Department Care Team ([facility] st Contact Info) Description 06/09/2023 Telephone [facility] MEDICINE 230 [place] [address] Carlo Santana MD 505 [place], [place] [phone] Social History Tobacco Use Types Packs/Day Years [...] 01/30/2025 10:30 AM EST Clinical Support [facility] MED & PEDS 505 [place] [address] Fariba Gandhi, HUGO 505 [place] [address] documented as of this encounter Visit Diagnoses Not on filedocumented in this encounter Additional Health Concerns Assessment Noted Time PHQ-9 Depression Total Score: 3 06/04/19 23 3:42 PM EDT documented as of this encounter Care Teams Gyn Relationship Specialty Start Date End Date Carlo Santana MD 505 [place] [address] PCP - General Internal Medicine 12/28/17 documented as of this encounter
--- OUTSIDE RECORDS SUMMARY | 2025-01-17 17:01 | XMS_ITS | Encounter Summary ---
Author Organization [employer] Address 75 [facility] 7t [place] [address] Care Team Providers Care Information Technology Internship Name Role Phone Carlo Santana MD Primary Care Provider [phone] Reason for Visit * Reason Onset Date Comments Med Refill 12/06/2024 Encounter Details Date Type Department Care Team (Late st Contact Info) Description 12/06/2024 Telephone [facility] MEDICINE 230 [place] [address] Carlo Santana MD 505 [place], [place] [phone] Med Refill Social History Tobacco Use Types [...] 1:08 PM EDT Medication was sent to [facility] on 12/03/24 90 day supply. * Telephone Encounter - Tasha Barton - 12/06/2024 1:03 PM EDT TC from pt requesting medication refill. Medications needing refill : - DULoxetine (Cymbalta) [address] capsule To be sent to: - [facility] - [place] - [address] documented in this encounter Plan of Treatment Upcoming Encounters Date Type Department Care Team (Late st Contact Info) Description 01/30/2025 10:30 AM EST Clinical Support [facility] MED & PEDS [address] [place] [address] Fariba Gandhi, RN [address] [place] [address] documented as of this encounter Visit Diagnoses Not on filedocumented in this encounter Additional Health Concerns Assessment Noted Time PHQ-9 Depression Total Score: 6 08/22/19 25 10:16 AM EDT documented as of this encounter Care Teams Information Technology Internship Relationship Specialty Start Date End Date Carlo Santana MD 505 [place] [address] PCP - General Internal Medicine 12/28/17 documented as of this encounter
--- OUTSIDE RECORDS SUMMARY | 2025-01-17 17:01 | XMS_ITS | Encounter Summary ---
Author Organization [employer] Address 75 [facility] 7t [place] [address] Care Team Providers Care Health Spa Manager Name Role Phone Carlo Santana MD Primary Care Provider [phone] Reason for Visit * Reason Comments Med Change Request Encounter Details Date Type Department Care Team ([facility] st Contact Info) Description 08/14/2024 Refill [facility] MEDICINE 230 [place] [address] Carlo Santana MD [address] [place], [place] [phone] Bipolar affective disorder, remission status unspecified (CMS/HCC) [...] AM EST Clinical Support [facility] MED & PEDS 505 [place] [address] Fariba Gandhi, HUGO 505 [place] [address] documented as of this encounter Visit Diagnoses Diagnosis Bipolar affective disorder, remission status unspecified (CMS/HCC) (HCC) documented in this encounter Additional Health Concerns Assessment Noted Time PHQ-9 Depression Total Score: 15 024 11:50 AM EST documented as of this encounter Care Teams Health Spa Manager Relationship Specialty Start Date End Date Carlo Santana MD [address] [place] [address] PCP - General Internal Medicine 12/28/17 documented as of this encounter
--- OUTSIDE RECORDS SUMMARY | 2025-01-17 17:01 | XMS_ITS | Encounter Summary ---
Author Organization [employer] Address 75 [facility] 7t [place] [address] Care Team Providers Care Registered Nurse Maternity Name Role Phone Carlo Santana MD Primary Care Provider [phone] Reason for Visit * Reason Onset Date Comments Appointment Request 11/08/2023 Encounter Details Date Type Department Care Team ([facility] Contact Info) Description 11/08/2023 Telephone [facility] MED & PEDS [address] [place] [address] Carlo Santana MD 505 [place] [address] Appointment Request Social History Tobacco Use Types [...] ([facility] st Contact Info) Description 01/30/2025 10:30 AM EST Clinical Support [facility] MED & PEDS 505 [place] [address] Fariba Gandhi RN 505 [place] [address] documented as of this encounter Visit Diagnoses Not on filedocumented in this encounter Additional Health Concerns Assessment Noted Time PHQ-9 Depression Total Score: 3 06/04/19 23 3:42 PM EDT documented as of this encounter Care Teams Registered Nurse Maternity Relationship Specialty Start Date End Date Carlo Santana MD 505 [place] [address] PCP - General Internal Medicine 12/28/17 documented as of this encounter
--- OUTSIDE RECORDS SUMMARY | 2025-01-17 17:01 | XMS_ITS | Encounter Summary ---
Author Organization [employer] Address 75 [facility] 7t [place] [address] Care Team Providers Care Metal Treater Name Role Phone Carlo Santana MD Primary Care Provider [phone] Reason for Visit * Reason Comments Med Refill Encounter Details Date Type Department Care Team ([facility] Contact Info) Description 12/06/2023 Refill [facility] MED & PEDS 505 [place], [place] [phone] Carlo Santana MD 505 [place], [place] [phone] Bipolar affective disorder, remission status unspecified (CMS/[facility]) Social History Tobacco Use Types [...] ([facility] st Contact Info) Description 01/30/2025 10:30 AM EST Clinical Support [facility] MED & PEDS 505 [place] [address] Fariba Gandhi RN 505 [place] [address] documented as of this encounter Visit Diagnoses Diagnosis Bipolar affective disorder, remission status unspecified (CMS/HCC) ([facility]) documented in this encounter Additional Health Concerns Assessment Noted Time PHQ-9 Depression Total Score: 3 06/04/19 23 3:42 PM EDT documented as of this encounter Care Teams Metal Treater Relationship Specialty Start Date End Date Carlo Santana MD [address] [place] [address] PCP - General Internal Medicine 12/28/17 documented as of this encounter
--- OUTSIDE RECORDS SUMMARY | 2025-01-17 17:01 | XMS_ITS | Encounter Summary ---
Author Organization [employer] Address 75 [facility] 7t [place] [address] Care Team Providers Care Sleeve Ironer Name Role Phone Carlo Santana MD Primary Care Provider [phone] Reason for Visit * Reason Onset Date Comments Call Back Request 07/10/2024 Encounter Details Date Type Department Care Team ([facility] st Contact Info) Description 07/10/2024 Telephone [facility] MEDICINE 230 [place] [address] Carlo Santana MD [address] [facility] [address] [place], [place] [phone] Call Back Request Social History Tobacco Use [...] Fariba regarding her appt, Contact pt at [phone] documented in this encounter Plan of Treatment Upcoming Encounters Date Type Department Care Team ([facility] st Contact Info) Description 01/30/2025 10:30 AM EST Clinical Support [facility] MED & PEDS 505 [place] [address] Fariba Gandhi RN 505 [place] [address] documented as of this encounter Visit Diagnoses Not on filedocumented in this encounter Additional Health Concerns Assessment Noted Time PHQ-9 Depression Total Score: 15 024 11:50 AM EST documented as of this encounter Care Teams Sleeve Ironer Relationship Specialty Start Date End Date Carlo Santana MD 505 [place] [address] PCP - General Internal Medicine 12/28/17 documented as of this encounter
--- OUTSIDE RECORDS SUMMARY | 2025-01-17 17:01 | XMS_ITS | Encounter Summary ---
Author Organization [employer] Address 75 [facility] 7t [place] [address] Care Team Providers Care Die Sinking Machine Operator Name Role Phone Carlo Santana MD Primary Care Provider [phone] Reason for Visit * Reason Comments Med Refill Encounter Details Date Type Department Care Team ([facility] Contact Info) Description 12/19/2023 Refill [facility] MED & PEDS 505 [place], [place] [phone] Carlo Santana MD 505 [place] [address] Diarrhea, unspecified type Social History Tobacco Use [...] ([facility] st Contact Info) Description 01/30/2025 10:30 AM EST Clinical Support [facility] MED & PEDS 505 [place] [address] Fariba Gandhi, HUGO 505 [place] [address] documented as of this encounter Visit Diagnoses Diagnosis Diarrhea, unspecified type documented in this encounter Additional Health Concerns Assessment Noted Time PHQ-9 Depression Total Score: 3 06/04/19 23 3:42 PM EDT documented as of this encounter Care Teams Die Sinking Machine Operator Relationship Specialty Start Date End Date Carlo Santana MD 505 [place] [address] PCP - General Internal Medicine 12/28/17 documented as of this encounter
--- OUTSIDE RECORDS SUMMARY | 2025-01-17 17:01 | XMS_ITS | Encounter Summary ---
Author Organization [employer] Address 75 [facility] 7t [place] [address] Care Team Providers Care Hawk Missile System Crewmember Name Role Phone Carlo Santana MD Primary Care Provider [phone] Reason for Visit * Reason Comments Med Refill Encounter Details Date Type Department Care Team ([facility] st Contact Info) Description 05/09/2024 Refill [facility] MEDICINE [address] [place] [address] Carlo Santana MD 505 [place], [place] [phone] Diarrhea, unspecified type; Chronic left shoulder pain; [...] 01/30/2025 10:30 AM EST Clinical Support [facility] MED & PEDS 505 [place] [address] Fariba Gandhi, HUGO 505 [place] [address] documented as of this encounter Visit Diagnoses Diagnosis Diarrhea, unspecified type Chronic left shoulder pain Pain in joint, shoulder region Rib pain Unspecified chest pain Chronic left-sided low back pain with left-sided sciatica Neck pain Cervicalgia documented in this encounter Additional Health Concerns Assessment Noted Time PHQ-9 Depression Total Score: 15 024 11:50 AM EST documented as of this encounter Care Teams [employer] System Crewmember Relationship Specialty Start Date End Date Carlo Santana MD 505 [place] [address] PCP - General Internal Medicine 12/28/17 documented as of this encounter
--- OUTSIDE RECORDS SUMMARY | 2025-01-17 17:01 | XMS_ITS | Encounter Summary ---
Author Organization [employer] Address [address] [facility] 7t [place] [address] Care Team Providers Care Electrical Maintenance Worker Name Role Phone Carlo Santana MD Primary Care Provider [phone] Reason for Visit * Reason Onset Date Comments Referral 12/01/2023 Encounter Details Date Type Department Care Team ([facility] st Contact Info) Description 12/01/2023 Telephone [facility] MEDICINE [address] [place] [address] Carlo Santana MD [address] [facility] [address] [place], [place] [phone] Referral Social History Tobacco Use Types Packs/Day [...] Tc from pt requesting a referral to [facility]. Stated not satisfied with [facility]. Specialty: [facility] Behavioral Health - Adult Outpatient Address: [address] [place] [address] If any questions contact pt at [phone] * Telephone Encounter - Angel Luis Oreilly - 12/01/2023 10:34 AM EDT Tc from patient calling to request a referral for a therapist states has been waiting for a call back from [facility] and has not heard a response documented in this encounter Plan of Treatment Upcoming Encounters Date Type Department Care Team ([facility] st Contact Info) Description 01/30/2025 10:30 AM EST Clinical Support [facility] MED & PEDS 505 [place] [address] Fariba Gandhi, HUGO 505 [place] [address] documented as of this encounter Visit Diagnoses Not on filedocumented in this encounter Additional Health Concerns Assessment Noted Time PHQ-9 Depression Total Score: 3 06/04/19 23 3:42 PM EDT documented as of this encounter Care Teams Electrical Maintenance Worker Relationship Specialty Start Date End Date Beauzile, Thevenin, MD [address] [place] [address] PCP - General Internal Medicine 12/28/17 documented as of this encounter
--- OUTSIDE RECORDS SUMMARY | 2025-01-17 17:01 | XMS_ITS | Encounter Summary ---
Author Organization [employer] Address 75 [facility] 7t [place] [address] Care Team Providers Care Invertebrate Paleontologist Name Role Phone Carlo Santana MD Primary Care Provider [phone] Reason for Visit * Reason Onset Date Comments Durable Medical Equipment 12/23/2023 Encounter Details Date Type Department Care Team ([facility] Contact Info) Description 12/23/2023 Telephone [facility] MED & PEDS 505 [place] [address] Carlo Santana MD 505 [place] [address] Durable Medical Equipment Social History Tobacco Use [...] small If any questions contact pt at [phone] documented in this encounter Plan of Treatment Upcoming Encounters Date Type Department Care Team ([facility] st Contact Info) Description 01/30/2025 10:30 AM EST Clinical Support [facility] MED & PEDS 505 [place] [address] Fariba Gandhi, HUGO 505 [place] [address] documented as of this encounter Visit Diagnoses Diagnosis Chronic left-sided low back pain with left-sided sciatica documented in this encounter Additional Health Concerns Assessment Noted Time PHQ-9 Depression Total Score: 3 06/04/19 23 3:42 PM EDT documented as of this encounter Care Teams Invertebrate Paleontologist Relationship Specialty Start Date End Date Carlo Santana MD 505 [place] [address] PCP - General Internal Medicine 12/28/17 documented as of this encounter
--- OUTSIDE RECORDS SUMMARY | 2025-01-17 17:01 | XMS_ITS | Encounter Summary ---
Author Organization [employer] Address 75 [facility] 7t [place] [address] Care Team Providers Care Furnace Maintenance Name Role Phone Carlo Santana MD Primary Care Provider [phone] Reason for Visit * Reason Onset Date Comments Nurse Triage 11/09/2023 Encounter Details Date Type Department Care Team ([facility] Contact Info) Description 11/09/2023 Telephone [facility] CHC MED & PEDS [address] [place] [address] Carlo Santana MD [address] [place] [address] Nurse Triage Social History Tobacco Use Types [...] Miscellaneous Notes * Telephone Encounter - Rosalina Armneta RN - 11/09/2023 10:28 AM EDT Triage [...] [facility] [address] [place] [address] Fariba Gandhi RN 505 [place] [address] documented as of this encounter Visit Diagnoses Not on filedocumented in this encounter Additional Health Concerns Assessment Noted Time PHQ-9 Depression Total Score: 3 06/04/19 23 3:42 PM EDT documented as of this encounter Care Teams Furnace Maintenance Relationship Specialty Start Date End Date Carlo Santana MD 505 [place] [address] PCP - General Internal Medicine 12/28/17 documented as of this encounter
--- OUTSIDE RECORDS SUMMARY | 2025-01-17 17:01 | XMS_ITS | Encounter Summary ---
Author Organization [employer] Address [address] [place] [address] 7 [place] [address] Care Team Providers Care Jd Edwards Consultant Name Role Phone Carlo Santana MD Primary Care Provider [phone] Reason for Visit * Reason Onset Date Comments Appointment Request 05/04/2022 Encounter Details Date Type Department Care Team ([facility] Contact Info) Description 05/04/2022 Telephone [facility]C MED & PEDS 505 [place] [address] Carlo Santana MD 505 [place] [address] Appointment Request Social History Tobacco Use Types [...] done for the low back pain but [facility] advised to pt that she is not ableto make the appt , the provider has to make the appt for her. Please contact pt at [phone] documented in this encounter Plan of Treatment Upcoming Encounters Date Type Department Care Team (Late st Contact Info) Description 01/30/2025 10:30 AM EST Clinical Support [facility] MED & PEDS 505 [place] [address] Fariba Gandhi, RN 505 [place] [address] documented as of this encounter Visit Diagnoses Not on filedocumented in this encounter Care Teams Jd Edwards Consultant Relationship Specialty Start Date End Date Carlo Santana MD 505 [place] [address] PCP - General Internal Medicine 12/28/17 documented as of this encounter
--- OUTSIDE RECORDS SUMMARY | 2025-01-17 17:01 | XMS_ITS | Encounter Summary ---
Author Organization [employer] Address [address] [facility] 7t [place] [address] Care Team Providers Care Marketing Intelligence Manager Name Role Phone Carlo Santana MD Primary Care Provider [phone] Reason for Visit * Reason Onset Date Comments Call Back Request 06/09/2023 Encounter Details Date Type Department Care Team ([facility] st Contact Info) Description 06/09/2023 Telephone [facility] MEDICINE [address] [place] [address] Carlo Santana MD [address] [facility] [address] [place], [place] [phone] Call Back Request Social History Tobacco Use [...] Tc from pt requesting a call back, creative writer ask pt if wanted to r/s appt but pt sated I wanted to talk about it documented in this encounter Plan of Treatment Upcoming Encounters Date Type Department Care Team (Late st Contact Info) Description 01/30/2025 10:30 AM EST Clinical Support [facility] CHC MED & PEDS 505 [place] [address] Fariba Gandhi, HUGO 505 [place] [address] documented as of this encounter Visit Diagnoses Not on filedocumented in this encounter Additional Health Concerns Assessment Noted Time PHQ-9 Depression Total Score: 3 06/04/19 23 3:42 PM EDT documented as of this encounter Care Teams Marketing Intelligence Manager Relationship Specialty Start Date End Date Carlo Santana MD 505 [place] [address] PCP - General Internal Medicine 12/28/17 documented as of this encounter
--- OUTSIDE RECORDS SUMMARY | 2025-01-17 17:01 | XMS_ITS | Encounter Summary ---
Author Organization [employer] Address 75 [facility] 7 [place] [address] Care Team Providers Care Galley Stripper Name Role Phone Carlo Santana MD Primary Care Provider [phone] Encounter Details Date Type Department Care Team ([facility] Contact Info) Description 03/05/2024 Orders Only [facility] CHC MED & PEDS 505 [place], [place] [phone] Carlo Santana MD 505 [place] [address] Social History Tobacco Use Types Packs/Day Years [...] Description 01/30/2025 10:30 AM EST Clinical Support [facility] MED & PEDS 505 [place] [address] Fariba Gandhi, HUGO 505 [place] [address] documented as of this encounter Visit Diagnoses Not on filedocumented in this encounter Additional Health Concerns Assessment Noted Time PHQ-9 Depression Total Score: 15 024 11:50 AM EST documented as of this encounter Care Teams Galley Stripper Relationship Specialty Start Date End Date Carlo Santana MD 505 [place] [address] PCP - General Internal Medicine 12/28/17 documented as of this encounter
--- OUTSIDE RECORDS SUMMARY | 2025-01-17 17:01 | XMS_ITS | Encounter Summary ---
Author Organization [employer] Address 75 [facility] 7t [place] [address] Care Team Providers Care Licensing Coordinator Name Role Phone Carlo Santana MD Primary Care Provider [phone] Reason for Visit * Reason Onset Date Comments Med Refill 04/21/2023 Encounter Details Date Type Department Care Team (Late st Contact Info) Description 04/21/[address] [facility] MEDICINE 230 [place] [address] Carlo Santana MD [address] [facility] [address] [place], [place] [phone] Low back pain radiating down leg Social [...] ([facility] st Contact Info) Description 01/30/2025 10:30 AM EST Clinical Support [facility] MED & PEDS 505 [place] [address] Fariba Gandhi, HUGO 505 [place] [address] documented as of this encounter Visit Diagnoses Diagnosis Low back pain radiating down leg documented in this encounter Additional Health Concerns Assessment Noted Time PHQ-9 Depression Total Score: 3 06/04/19 23 3:42 PM EDT documented as of this encounter Care Teams Licensing Coordinator Relationship Specialty Start Date End Date Carlo Santana MD 505 [place] [address] PCP - General Internal Medicine 12/28/17 documented as of this encounter
--- OUTSIDE RECORDS SUMMARY | 2025-01-17 17:01 | XMS_ITS | Encounter Summary ---
Author Organization [employer] Address [address] [place] [address] 7 [place] [address] Care Team Providers Care Spindle Repairer Name Role Phone Carlo Santana MD Primary Care Provider [phone] Reason for Visit * Reason Comments Med Change Request Encounter Details Date Type Department Care Team ([facility] Contact Info) Description 06/21/[address] [facility] CHC MED & PEDS 505 [place], [place] [phone] Carlo Santana MD 505 [place] [address] Chronic left-sided low back pain with left-sided [...] Support [facility] MED & PEDS 505 [place] [address] Fariba Gandhi, HUGO 505 [place] [address] documented as of this encounter Visit Diagnoses Diagnosis Chronic left-sided low back pain with left-sided sciatica documented in this encounter Additional Health Concerns Assessment Noted Time PHQ-9 Depression Total Score: 3 06/04/19 23 3:42 PM EDT documented as of this encounter Care Teams Spindle Repairer Relationship Specialty Start Date End Date Carol Santana MD 505 [place] [address] PCP - General Internal Medicine 12/28/17 documented as of this encounter
--- OUTSIDE RECORDS SUMMARY | 2025-01-17 17:01 | XMS_ITS | Encounter Summary ---
Author Organization [employer] Address [address] [facility] 7t [place] [address] Care Team Providers Care Waste And Batting Waste Chopper Name Role Phone Carlo Santana MD Primary Care Provider [phone] Encounter Details Date Type Department Care Team ([facility] st Contact Info) Description 05/02/2023 Orders Only [facility] CHC MED & PEDS 505 [place], [place] [phone] Carlo Santana MD 505 [place], [place] [phone] New daily persistent headache (Primary Dx) Social [...] 10:30 AM EST Clinical Support [facility] CHC MED & PEDS 505 [place] [address] Fariba Gandhi RN 505 [place] [address] documented as of this encounter Procedures Procedure [...] PM EST Narrative 05/23/2023 11:39 AM EDT [facility] [address] [place] [address] Magnetic Resonance Report Signed Patient: Peri Sandy MR#: [id number] : 1980 Acct:[id number] Age/Sex: 42 / F ADM Date: 05/18/23 Loc: HO.MRI Attending Dr: Karl VICTOR Ordering Physician: Karl Meade Date of Service: 05/18/23 Procedure(s): MR lumbar spine wo con Accession Number(s): [id number] cc: Carlo Santana MD; Karl Meade EXAMINATION: [...] interval compression fractures. DISC SPACES AND ENDPLATES: Qivcnkto-vk-qfjidq intervertebral disc space height loss asymmetric to the left at L4-L5 with disc desiccation stable in appearance. Horx-fj-ziltvdte disc volume loss at L3-L4 asymmetric to the left, slightly progressed from previous exam with a stable small Schmorl's node along the superior endplate of L4 on the left. Minor spondylosis is unchanged. Mild disc volume loss at L2-L3 with disc desiccation is stable. Zqhdccsb-fh-pzabse intervertebral disc space height loss asymmetric to [...] previous study. No significant central canal stenosis. Uwwa-ho-pejywkhc bilateral facet joint arthropathy is stable with [...] the exam. Within the pelvis on the retail marketing executive view, there is a 5.5 cm cystic structure in the expected location of the right adnexa, similar in appearance to the previous study, based on evaluation of the retail marketing executive view. MR/MR lumbar spine wo con IMPRESSION: [...] nerve roots bilaterally progressed from previous study. Hfbwjneq-vq-pwbpay left and nfiu-aj-oqicjlfk right-sided neural foraminal stenosis at L3-L4, similar [...] location of the right adnexa on the retail marketing executive view similar to the previous study. As noted on the previous study, this likely reflects a physiologic right ovarian cyst but is not definitely characterized as simple-appearing based on this study and therefore follow up ultrasound may be indicated. Dictated By: JOVANY BARROS MD Signed By: <Electronically signed by JOVANY BARROS MD in OV> 05/23/23 1135 DD/ 06 TD/TT: Construction Stonemason: Procedure Note Donotuseinterpreter, Image - 05/23/[address] [address] Magnetic Resonance Report Signed Patient: Peri Sandy [facility]#: [id number] : 1980Acct:[id number] Age/Sex: 42 / FADM Date: 05/18/23 Loc: HO.MRI Attending Dr: Karl VICTOR Ordering Physician: Karl Meade Date of Service: 05/18/23 Procedure(s): MR lumbar spine wo con Accession Number(s): [id number] cc: Carlo Santana MD; Karl Meade EXAMINATION: [...] interval compression fractures. DISC SPACES AND ENDPLATES: Utnamqbz-vd-shwnoh intervertebral disc space height loss asymmetric to the left at L4-L5 with disc desiccation stable in appearance. Utvo-lz-stoqgknm disc volume loss at L3-L4 asymmetric to the left, slightly progressed from previous exam with a stable small Schmorl's node along the superior endplate of L4 on the left. Minor spondylosis is unchanged. Mild disc volume loss at L2-L3 with disc desiccation is stable. Uftmrjtj-me-bwvzic intervertebral disc space height loss asymmetric to [...] previous study. No significant central canal stenosis. Xwtg-fp-nyanncho bilateral facet joint arthropathy is stable with [...] the exam. Within the pelvis on the retail marketing executive view, there is a 5.5 cm cystic structure in the expected location of the right adnexa, similar in appearance to the previous study, based on evaluation of the retail marketing executive view. MR/MR lumbar spine wo con IMPRESSION: [...] nerve roots bilaterally progressed from previous study. Fzmhkgew-oj-vvucdg left and nswb-ju-uzoyevsf right-sided neural foraminal stenosis at L3-L4, similar [...] location of the right adnexa on the retail marketing executive view similar to the previous study. As noted on the previous study, this likely reflects a physiologic right ovarian cyst but is not definitely characterized as simple-appearing based on this study and therefore follow up ultrasound may be indicated. Dictated By: JOVANY BARROS MD Signed By: <Electronically signed by JOVANY BARROS MD in OV> 05/23/23 1135 DD/ 06 TD/TT: Construction Stonemason: us [facility] External Provider IMG MRI PROCEDURES Final Result * US RETROPERITONEAL LIMITED (05/17/2023 3:44 PM EST) Anatomical Region Laterality Modality Abdomen Ultrasound 05/17/2023 3:44 PM EST Narrative 05/19/2023 7:57 PM EST [address] [address] Ultrasound Report Signed Patient: Peri Sandy MR#: [id number] 338 : 1980 Acct:[id number] Age/Sex: 42 / F ADM Date: 05/17/23 Loc: HO.US Attending Dr: Luis Manuel Singh MD Ordering Physician: Luis Manuel Singh MD Date of Service: 05/17/23 Procedure(s): US retroperitoneal limited Accession Number(s): [id number] cc: Luis Manuel Singh MD; Carlo Santana [...] MD in OV> 05/19/231952 DD/ 43 TD/TT: Construction Stonemason: Procedure Note Wilfredo, Image - 05/19/2023 [place] [address] Ultrasound Report Signed Patient: Peri Sandy MMR#: [id number] 338 : 1980Acct:[id number] Age/Sex: 42 / FADM Date: 05/17/23 Loc: HO.US Attending Dr: Luis Manuel Singh MD Ordering Physician: Luis Manuel Singh MD Date of Service: 05/17/23 Procedure(s): US retroperitoneal limited Accession Number(s): [id number] cc: Luis Manuel Singh MD; Carlo Santana [...] MD in OV> 05/19/231952 DD/ 43 TD/TT: Construction Stonemason: us [facility] External Provider IMG US PROCEDURES Final Result documented in this encounter Visit Diagnoses Diagnosis New daily persistent headache- Primary documented in this encounter Additional Health Concerns Assessment Noted Time PHQ-9 Depression Total Score: 3 06/04/19 23 3:42 PM EDT documented as of this encounter Care Teams Waste And Batting Waste Chopper Relationship Specialty Start Date End Date Carlo Santana MD [address] [place] [address] PCP - General Internal Medicine 12/28/17 documented as of this encounter
--- OUTSIDE RECORDS SUMMARY | 2025-01-17 17:01 | XMS_ITS | Encounter Summary ---
Author Organization [employer] Address [address] [facility] 7t [place] [address] Care Team Providers Care Brake Operator Helper Name Role Phone Carlo Santana MD Primary Care Provider [phone] Encounter Details Date Type Department Care Team ([facility] st Contact Info) Description 04/21/2023 Telephone [facility] MEDICINE 230 [place] [address] Carlo Santana MD 505 [place], [place] [phone] Social History Tobacco Use Types Packs/Day Years [...] [facility] MED & PEDS 505 [place] [address] Fariba Gandhi, HUGO 505 [place] [address] documented as of this encounter Visit Diagnoses Not on filedocumented in this encounter Additional Health Concerns Assessment Noted Time PHQ-9 Depression Total Score: 3 06/04/19 23 3:42 PM EDT documented as of this encounter Care Teams Brake Operator Helper Relationship Specialty Start Date End Date Carlo Santana MD 505 [place] [address] PCP - General Internal Medicine 12/28/17 documented as of this encounter
--- OUTSIDE RECORDS SUMMARY | 2025-01-17 17:01 | XMS_ITS | Encounter Summary ---
Author Organization [employer] Address [address] [place] [address] 7 [place] [address] Care Team Providers Care Stripping Shovel Operator Name Role Phone Carlo Santana MD Primary Care Provider [phone] Reason for Visit * Reason Comments Med Refill Encounter Details Date Type Department Care Team (Late st Contact Info) Description 05/06/2022 Refill [facility] MED & PEDS 505 [place] [address] Servando Howard MD 505 [place] [address] Chronic left-sided low back pain with left-sided [...] [facility] 505 [place] [address] Fariba Gandhi RN 505 [place], [place] [phone] documented as of this encounter Visit Diagnoses Diagnosis Chronic left-sided low back pain with left-sided sciatica documented in this encounter Care Teams Stripping Shovel Operator Relationship Specialty Start Date End Date Carlo Santana MD [address] [place] [address] PCP - General Internal Medicine 12/28/17 documented as of this encounter
--- OUTSIDE RECORDS SUMMARY | 2025-01-17 17:01 | XMS_ITS | Encounter Summary ---
Author Organization [employer] Address 75 [facility] 7t [place] [address] Care Team Providers Care Sales And Events Coordinator Name Role Phone Carlo Santana MD Primary Care Provider [phone] Reason for Visit * Reason Onset Date Comments Med Refill 01/14/2025 Encounter Details Date Type Department Care Team ([facility] st Contact Info) Description 01/14/2025 Telephone [facility] MEDICINE 230 [place] [address] Carlo Santana MD 505 [place], [place] [phone] Med Refill Social History Tobacco Use Types [...] Telephone Encounter - April Beard LPN - 01/14/2025 9:02 AM EST Please advise the patient to call the pharmacy medications have refills. * Telephone Encounter - Quan Mena - 01/14/2025 8:50 AM EST TC from pt requesting medication refill. Medications needing refill: DULoxetine (Cymbalta) [address] capsule hydrOXYzine pamoate (Vistaril) 50 MG capsule ziprasidone (Geodon) 80 MG capsule To be sent to: [facility] - [place] - [address] documented in this encounter Plan of Treatment Upcoming Encounters Date Type Department Care Team ([facility] st Contact Info) Description 01/30/2025 10:30 AM EST Clinical Support [facility] MED & PEDS [address] [place] [address] Fariba Gandhi, RN [address] [place] [address] documented as of this encounter Visit Diagnoses Not on filedocumented in this encounter Additional Health Concerns Assessment Noted Time PHQ-9 Depression Total Score: 6 08/22/19 25 10:16 AM EDT documented as of this encounter Care Teams Sales And Events Coordinator Relationship Specialty Start Date End Date Carlo Santana MD [address] [place] [address] PCP - General Internal Medicine 12/28/17 documented as of this encounter
--- OUTSIDE RECORDS SUMMARY | 2025-01-17 17:01 | XMS_ITS | Encounter Summary ---
Author Organization [employer] Address [address] [facility] 7t [place] [address] Care Team Providers Care Medical Records Director Name Role Phone Carlo Santana MD Primary Care Provider [phone] Encounter Details Date Type Department Care Team ([facility] st Contact Info) Description 12/21/2023 Orders Only [facility] CHC MED & PEDS [address] [place], [place] [phone] Carlo Santana MD 505 [place], [place] [phone] Hypoproteinemia (CMS/HCC) (Primary Dx); Diarrhea, unspecified type [...] [facility] MED & PEDS [address] [place] [address] Fariba Gandhi, RN 505 [place] [address] documented as of this encounter Procedures Procedure Name Priority Date/Time Associated Diagnosis Comments GASTROINTESTINAL PANEL Routine 5:33 PM EDT Diarrhea, unspecified type documented in this encounter Results * Gastrointestinal panel (aka ova & parasites) (12/24/2023 5:33 PM EDT) Campylobacter Not Detected Not Detect. [facility] Plesiomonas shigelloides Not Detected Not Detect. [facility] Salmonella Not Detected Not Detect. [facility] Vibrio Not Detected Not Detect. [facility] Vibrio cholerae Not Detected Not Detect. [facility] YERSINIA ENTEROCOLITICA Not Detected Not Detect. [facility] Enteroaggregative E. coli (EAEC) Not Detected Not Detect. [facility] Enteropathogenic E. coli (EPEC) Not Detected Not Detect. [facility] Enterotoxigenic E. coli (ETEC) lt/st Not Detected Not Detect. [facility] Shiga-like toxin-producing E. coli (STEC) stx1/stx2 Not Detected Not Detect. [facility] E coli O157 Not applicable Not Detect. [facility] Comment:E. coli containing t he O157 antigen are a subset ofShiga-like toxin- producing E. coli (STEC). Shigella/Enteroinvasive E. coli (EIEC) Not Detected Not Detect. [facility] Cryptosporidium Not Detected Not Detect. [facility] Cyclospora cayetanensis Not Detected Not Detect. [facility] Entamoeba histolytica Not Detected Not Detect. [facility] Giardia lamblia Not Detected Not Detect. [facility] Adenovirus F 40/41 Not Detected Not Detect. [facility] Astrovirus Not Detected Not Detect. [facility] Norovirus GI/GII Not Detected Not Detect. [facility] Rotavirus A Not Detected Not Detect. [facility] Sapovirus Not Detected Not Detect. [facility] Comment: All results must be [...] assay is performed by Multiplexed PCR, utilizing [employer] Array. Stool Rectal contents / Unknown 12/24/2023 5:33 PM EDT 12/27/2023 12:21 PM EDT us Thevenin Beauzile MD LAB MICROBIOLOGY - GENERAL ORDERABLES Final Result [facility] [address] [place] [address] [phone] documented in this encounter Visit Diagnoses Diagnosis Hypoproteinemia (CMS/HCC)- Primary Other disorders of plasma protein metabolism Diarrhea, unspecified type documented in this encounter Additional Health Concerns Assessment Noted Time PHQ-9 Depression Total Score: 3 06/04/19 23 3:42 PM EDT documented as of this encounter Care Teams Medical Records Director Relationship Specialty Start Date End Date Carlo Santana MD [address] [place] [address] PCP - General Internal Medicine 12/28/17 documented as of this encounter
--- OUTSIDE RECORDS SUMMARY | 2025-01-17 17:01 | XMS_ITS | Encounter Summary ---
Author Organization [employer] Address [address] [facility] 7t [place] [address] Care Team Providers Care Trout Farmer Name Role Phone Carlo Santana MD Primary Care Provider [phone] Reason for Visit * Reason Onset Date Comments Med Refill 01/14/2025 Encounter Details Date Type Department Care Team ([facility] st Contact Info) Description 01/14/[address] [facility] MEDICINE [address] [place] [address] Carlo Santana MD 505 [place], [place] [phone] Med Refill Social History Tobacco Use Types [...] Telephone Encounter - Quan Mena - 01/14/2025 8:53 AM EST TC from pt requesting medication refill. Medications needing refill: oxyCODONE (Roxicodone) 10 MG immediate release tablet To be sent to: [facility] - [place] - [address] [place] [address] documented in this encounter Plan of Treatment Upcoming Encounters Date Type Department Care Team ([facility] st Contact Info) Description 01/30/2025 10:30 AM EST Clinical Support [facility] MED & PEDS 505 [facility] [place] [address] Fariba Gandhi RN 505 [place] [address] documented as of this encounter Visit Diagnoses Not on filedocumented in this encounter Additional Health Concerns Assessment Noted Time PHQ-9 Depression Total Score: 6 08/22/19 25 10:16 AM EDT documented as of this encounter Care Teams Trout Farmer Relationship Specialty Start Date End Date Carlo Santana MD 505 [facility] [place] [address] PCP - General Internal Medicine 12/28/17 documented as of this encounter
--- OUTSIDE RECORDS SUMMARY | 2025-01-17 17:01 | XMS_ITS | Encounter Summary ---
Author Organization [employer] Address [address] [place] [address] 7 [place] [address] Care Team Providers Care Category Planner Name Role Phone Carlo Santana MD Primary Care Provider [phone] Reason for Visit * Reason Comments Med Refill Encounter Details Date Type Department Care Team ([facility] Contact Info) Description 10/28/2022 Refill [facility] MED & PEDS [address] [place] [address] Carlo Santana MD 505 [place] [address] Muscle spasm Social History Tobacco Use Types [...] Department Care Team (Late Contact Info) Description 01/30/2025 10:30 AM EST Clinical Support [facility] MED & PEDS 505 [place] [address] Fariba Gandhi, HUGO [address] [place] [address] documented as of this encounter Visit Diagnoses Diagnosis Muscle spasm Spasm of muscle documented in this encounter Additional Health Concerns Assessment Noted Time PHQ-9 Depression Total Score: 3 06/04/19 23 3:42 PM EDT documented as of this encounter Care Teams Category Planner Relationship Specialty Start Date End Date Carlo Santana MD 505 [place] [address] PCP - General Internal Medicine 12/28/17 documented as of this encounter
--- OUTSIDE RECORDS SUMMARY | 2025-01-17 17:01 | XMS_ITS | Encounter Summary ---
Author Organization [employer] Address [address] [facility] 7t [place] [address] Care Team Providers Care Appliance Sales Associate Name Role Phone Carlo Santana MD Primary Care Provider [phone] Reason for Visit * Reason Onset Date Comments Med Refill 12/06/2024 Encounter Details Date Type Department Care Team (Late st Contact Info) Description 12/06/2024 Telephone [facility] MEDICINE [address] [place] [address] Carlo Santana MD 505 [place], [place] [phone] Med Refill Social History Tobacco Use Types [...] release tablet To be sent to: - [facility] - LEATHA Leblanc - [address] [facility] documented in this encounter Plan of Treatment Upcoming Encounters Date Type Department Care Team ([facility] st Contact Info) Description 01/30/2025 10:30 AM EST Clinical Support [facility] MED & PEDS [address] [place] [address] Fariba Gandhi, HUGO 505 [facility] [address] documented as of this encounter Visit Diagnoses Not on filedocumented in this encounter Additional Health Concerns Assessment Noted Time PHQ-9 Depression Total Score: 6 08/22/19 25 10:16 AM EDT documented as of this encounter Care Teams Appliance Sales Associate Relationship Specialty Start Date End Date Carlo Santana MD [address] [place] [address] PCP - General Internal Medicine 12/28/17 documented as of this encounter
--- OUTSIDE RECORDS SUMMARY | 2025-01-17 17:01 | XMS_ITS | Encounter Summary ---
Author Organization [employer] Address [address] [facility] 7t [place] [address] Care Team Providers Care Bean Snapper Name Role Phone Carlo Santana MD Primary Care Provider [phone] Reason for Visit * Reason Onset Date Comments Med Refill 05/04/2023 Encounter Details Date Type Department Care Team ([facility] st Contact Info) Description 05/04/2023 Telephone [facility] MEDICINE 230 [place] [address] Carlo Santana MD [address] [facility] [address] [place], [place] [phone] Med Refill Social History Tobacco Use Types [...] 200 MG capsule To be sent to: [facility]/pharmacy #[id number] LEATHA PHILLIPS - [id number] [facility] documented in this encounter Plan of Treatment Upcoming Encounters Date Type Department Care Team (Late st Contact Info) Description 01/30/2025 10:30 AM EST Clinical Support [facility] PEDS 505 [place] [address] Fariba Gandhi, HUGO 505 [place] [address] documented as of this encounter Visit Diagnoses Not on filedocumented in this encounter Additional Health Concerns Assessment Noted Time PHQ-9 Depression Total Score: 3 06/04/19 23 3:42 PM EDT documented as of this encounter Care Teams Bean Snapper Relationship Specialty Start Date End Date Carlo Santana MD 505 [place] [address] PCP - General Internal Medicine 12/28/17 documented as of this encounter
--- OUTSIDE RECORDS SUMMARY | 2025-01-17 17:01 | XMS_ITS | Encounter Summary ---
Author Organization [employer] Address [address] [facility] 7t [place] [address] Care Team Providers Care Roll Up Helper Name Role Phone Carlo Santana MD Primary Care Provider [phone] Reason for Visit * Reason Onset Date Comments Referral 08/09/2024 Encounter Details Date Type Department Care Team ([facility] st Contact Info) Description 08/09/2024 Telephone [facility] MEDICINE 230 [place] [address] Carlo Santana MD 505 [place], [place] [phone] Referral Social History Tobacco Use Types Packs/Day [...] AM EDT Message left [facility]. She refused an appointment at [facility] but was seen at [facility] pain clinic in June. * Telephone Encounter - Patricia Espinal - 08/09/2024 11:39 AM EDT Telephone call received from patient requesting a referral to Pain Management at [facility]. Patient reports had a previous referral, but states it has . documented in this encounter Plan of Treatment Upcoming Encounters Date Type Department Care Team (Late st Contact Info) Description 01/30/2025 10:30 AM EST Clinical Support [facility] MED & PEDS 505 [place] [address] Fariba Gandhi, HUGO 505 [place] [address] documented as of this encounter Visit Diagnoses Not on filedocumented in this encounter Additional Health Concerns Assessment Noted Time PHQ-9 Depression Total Score: 15 024 11:50 AM EST documented as of this encounter Care Teams Roll Up Helper Relationship Specialty Start Date End Date Carlo Santana MD [address] [place] [address] PCP - General Internal Medicine 12/28/17 documented as of this encounter
--- OUTSIDE RECORDS SUMMARY | 2025-01-17 17:01 | XMS_ITS | Encounter Summary ---
Author Organization [employer] Address [address] [facility] [address] 7t [place] [address] Care Team Providers Care Pocketed Spring Assembler Name Role Phone Carlo Santana MD Primary Care Provider [phone] Reason for Visit * Reason Onset Date Comments Nurse Triage 04/12/2023 Encounter Details Date Type Department Care Team ([facility] st Contact Info) Description 04/12/2023 Telephone [facility] MEDICINE 230 [place] [address] Carlo Santana MD 505 [place], [place] [phone] Nurse Triage Social History Tobacco Use Types [...] with disposition and home care reviewed. Apt [facility] 04/13/23 @ 1120am. Insurance is veriifed [...] 01/30/2025 10:30 AM EST Clinical Support [facility] MED & PEDS 505 [place] [address] Fariba Gandhi, HUGO 505 [place] [address] documented as of this encounter Visit Diagnoses Not on filedocumented in this encounter Additional Health Concerns Assessment Noted Time PHQ-9 Depression Total Score: 3 06/04/19 23 3:42 PM EDT documented as of this encounter Care Teams Pocketed Spring Assembler Relationship Specialty Start Date End Date Carlo Santana MD 505 [place] [address] PCP - General Internal Medicine 12/28/17 documented as of this encounter
--- OUTSIDE RECORDS SUMMARY | 2025-01-17 17:01 | XMS_ITS | Encounter Summary ---
Author Organization [employer] Address [address] [place] [address] 7 [place] [address] Care Team Providers Care Watch Crystal Grinder Name Role Phone Carlo Santana MD Primary Care Provider [phone] Reason for Visit * Reason Comments Med Refill Encounter Details Date Type Department Care Team (Late st Contact Info) Description 05/19/2022 Refill [facility] MED & PEDS 505 [place] [address] Servando Howard MD 505 [place] [address] Chronic left-sided low back pain with left-sided [...] [facility] 505 [place] [address] Fariba Gandhi RN 505 [place], [place] [phone] documented as of this encounter Visit Diagnoses Diagnosis Chronic left-sided low back pain with left-sided sciatica documented in this encounter Care Teams Watch Crystal Grinder Relationship Specialty Start Date End Date Carlo Santana MD [address] [place] [address] PCP - General Internal Medicine 12/28/17 documented as of this encounter
--- OUTSIDE RECORDS SUMMARY | 2025-01-17 17:01 | XMS_ITS | Encounter Summary ---
Author Organization [employer] Address [address] [facility] 7t [place] [address] Care Team Providers Care Electrician Helper Automotive Name Role Phone Carlo Santana MD Primary Care Provider [phone] Reason for Visit * Reason Onset Date Comments Medication Question 04/25/2024 Encounter Details Date Type Department Care Team ([facility] Contact Info) Description 04/25/2024 Telephone [facility] MEDICINE 230 [place] [address] Carlo Santana MD 505 [place], [place] [phone] Medication Question Social History Tobacco Use Types [...] any questions you can contact pt at [phone]. documented in this encounter Plan of Treatment Upcoming Encounters Date Type Department Care Team ([facility] st Contact Info) Description 01/30/2025 10:30 AM EST Clinical Support [facility] MED & PEDS 505 [place] [address] Fariba Gandhi RN 505 [place] [address] documented as of this encounter Visit Diagnoses Not on filedocumented in this encounter Additional Health Concerns Assessment Noted Time PHQ-9 Depression Total Score: 15 024 11:50 AM EST documented as of this encounter Care Teams Electrician Helper Automotive Relationship Specialty Start Date End Date Carlo Santana MD 505 [place] [address] PCP - General Internal Medicine 12/28/17 documented as of this encounter
--- OUTSIDE RECORDS SUMMARY | 2025-01-17 17:02 | XMS_ITS | Encounter Summary ---
Author Organization [employer] Address [address] [facility] [address] 7t [place] [address] Care Team Providers Care Hair Preparer Name Role Phone Carlo Santana MD Primary Care Provider [phone] Reason for Visit * Reason Comments Med Change Request Encounter Details Date Type Department Care Team ([facility] st Contact Info) Description 12/20/2023 Refill [facility] 230 [place] [address] Carlo Santana MD [address] [facility] [address] [place], [place] [phone] Hypoproteinemia (CMS/HCC) Social History Tobacco Use Types [...] 10:30 AM EST Clinical Support [facility] MED & PEDS 505 [place] [address] Fariba Gandhi, HUGO 505 [place] [address] documented as of this encounter Visit Diagnoses Diagnosis Hypoproteinemia (CMS/HCC) Other disorders of plasma protein metabolism documented in this encounter Additional Health Concerns Assessment Noted Time PHQ-9 Depression Total Score: 3 06/04/19 23 3:42 PM EDT documented as of this encounter Care Teams Hair Preparer Relationship Specialty Start Date End Date Carlo Santana MD 505 [place] [address] PCP - General Internal Medicine 12/28/17 documented as of this encounter
--- OUTSIDE RECORDS SUMMARY | 2025-01-17 17:02 | XMS_ITS | Encounter Summary ---
Author Organization [employer] Address [address] [facility] [address] 7t [place] [address] Care Team Providers Care Potter Or Ceramic Artist Name Role Phone Carlo Santana MD Primary Care Provider [phone] Reason for Visit * Reason Onset Date Comments Medication Question 05/06/2023 Encounter Details Date Type Department Care Team ([facility] st Contact Info) Description 05/06/[address] [facility] MEDICINE 230 [place] [address] Carlo Santana MD 505 [place], [place] [phone] Medication Question Social History Tobacco Use Types [...] Support [facility] MED & PEDS 505 [place] [address] Fariba Gandhi, HUGO 505 [place] [address] documented as of this encounter Visit Diagnoses Not on filedocumented in this encounter Additional Health Concerns Assessment Noted Time PHQ-9 Depression Total Score: 3 06/04/19 23 3:42 PM EDT documented as of this encounter Care Teams Potter Or Ceramic Artist Relationship Specialty Start Date End Date Carlo Santana MD 505 [place] [address] PCP - General Internal Medicine 12/28/17 documented as of this encounter
--- OUTSIDE RECORDS SUMMARY | 2025-01-17 17:02 | XMS_ITS | Encounter Summary ---
Author Organization [employer] Address [address] [place] [address] 7t [place] [address] Care Team Providers Care Chief Order Dispatcher Name Role Phone Carlo Santana MD Primary Care Provider [phone] Reason for Visit * Reason Comments Med Refill Encounter Details Date Type Department Care Team ([facility] Contact Info) Description 06/20/2022 Refill [facility] PEDS 505 [place], [place] [phone] Servando Howard MD 505 [place] [address] Social History Tobacco Use Types Packs/Day Years [...] Description 01/30/2025 10:30 AM EST Clinical Support [facility]EDS 505 [place] [address] Fariba Gandhi, RN 505 [place] [address] documented as of this encounter Visit Diagnoses Not on filedocumented in this encounter Additional Health Concerns Assessment Noted Time PHQ-9 Depression Total Score: 3 06/04/19 23 3:42 PM EDT documented as of this encounter Care Teams Chief Order Dispatcher Relationship Specialty Start Date End Date Carlo Santana MD 505 [place] [address] PCP - General Internal Medicine 12/28/17 documented as of this encounter
--- OUTSIDE RECORDS SUMMARY | 2025-01-17 17:02 | XMS_ITS | Encounter Summary ---
Author Organization [employer] Address [address] [address] 7t [place] [address] Care Team Providers Care Test Preparation Tutor Name Role Phone Carlo Santana MD Primary Care Provider [phone] Encounter Details Date Type Department Care Team (Late st Contact Info) Description 12/20/2023 Orders Only [facility] 230 [place] [address] Carlo Santana MD [address] [facility] [address] [place], [place] [phone] Hypoproteinemia (CMS/HCC) (Primary Dx) Social History Tobacco [...] [facility] st Contact Info) Description 01/30/2025 10:30 AM EST Clinical Support [facility] MED & PEDS 505 [place] [address] Fariba Gandhi RN 505 [place] [address] documented as of this encounter Visit Diagnoses Diagnosis Hypoproteinemia (CMS/HCC)- Primary Other disorders of plasma protein metabolism documented in this encounter Additional Health Concerns Assessment Noted Time PHQ-9 Depression Total Score: 3 06/04/19 23 3:42 PM EDT documented as of this encounter Care Teams Test Preparation Tutor Relationship Specialty Start Date End Date Carlo Santana MD 505 [place] [address] PCP - General Internal Medicine 12/28/17 documented as of this encounter
--- OUTSIDE RECORDS SUMMARY | 2025-01-17 17:02 | XMS_ITS | Encounter Summary ---
Author Organization [employer] Address [address] [facility] 7t [place] [address] Care Team Providers Care Registered Nurse Bone Marrow Transplant Name Role Phone Carlo Santana MD Primary Care Provider +- [phone] Reason for Visit * Reason Comments Med Refill Encounter Details Date Type Department Care Team ([facility] st Contact Info) Description 06/20/2022 Refill [facility] 230 [place] [address] Carlo Santana MD 505 [place], [place] [phone] Chronic left-sided low back pain with left-sided [...] Description 01/30/2025 10:30 AM EST Clinical Support [facility] 505 [place] [address] Fariba Gandhi, RN 505 [place] [address] documented as of this encounter Visit Diagnoses Diagnosis Chronic left-sided low back pain with left-sided sciatica documented in this encounter Additional Health Concerns Assessment Noted Time PHQ-9 Depression Total Score: 3 06/04/19 23 3:42 PM EDT documented as of this encounter Care Teams Registered Nurse Bone Marrow Transplant Relationship Specialty Start Date End Date Carlo Santana MD 505 [place] [address] PCP - General Internal Medicine 12/28/17 documented as of this encounter
--- OUTSIDE RECORDS SUMMARY | 2025-01-17 17:02 | XMS_ITS | Encounter Summary ---
Author Organization [employer] Address [address] [facility] 7t [place] [address] Care Team Providers Care Licensed Architect Name Role Phone Carlo Santana MD Primary Care Provider [phone] Reason for Visit * Reason Comments Med Refill Encounter Details Date Type Department Care Team ([facility] Contact Info) Description 07/10/2024 Refill [facility] MED & PEDS 505 [place], [place] [phone] Carlo Santana MD 505 [place] [address] Chronic left-sided low back pain with left-sided [...] 07/12/2024 9:56 AM EDT Pt here for TILE SHADER visit. States she is going through a lot in her life right now. states she spoke with you in the past and she is interested in resuming care. Can you please call her? Ty! documented in this encounter Plan of Treatment Upcoming Encounters Date Type Department Care Team ([facility] st Contact Info) Description 01/30/2025 10:30 AM EST Clinical Support [facility] MED & PEDS 505 [place] [address] Fariba Gandhi, HUGO 505 [place] [address] documented as of this encounter Visit Diagnoses Diagnosis Chronic left-sided low back pain with left-sided sciatica documented in this encounter Additional Health Concerns Assessment Noted Time PHQ-9 Depression Total Score: 15 024 11:50 AM EST documented as of this encounter Care Teams Licensed Architect Relationship Specialty Start Date End Date Carlo Santana MD [address] [place] [address] PCP - General Internal Medicine 12/28/17 documented as of this encounter
--- OUTSIDE RECORDS SUMMARY | 2025-01-17 17:02 | XMS_ITS | Encounter Summary ---
Author Organization [employer] Address [address] [place] [address] 7t [place] [address] Care Team Providers Care Registered Nurse Step Down Name Role Phone Carlo Santana MD Primary Care Provider [phone] Reason for Visit * Reason Onset Date Comments Med Refill 10/18/2022 Encounter Details Date Type Department Care Team ([facility] Contact Info) Description 10/18/2022 Telephone [facility] MED & PEDS 505 [place] [address] Carlo Santana MD 505 [place] [address] Med Refill Social History Tobacco Use Types [...] requesting status on script. Please contact at [phone] * Telephone Encounter - Avelina Brown - 10/18/2022 8:27 AM EDT Tc from patient requesting a med refill for medication oxycodone 5 mg. Please send to [facility]/pharmacy #[id number] - LEATHA PHILLIPS - [address] [facility] [address] Santana documented in this encounter Plan of Treatment Upcoming Encounters Date Type Department Care Team ([facility] st Contact Info) Description 01/30/2025 10:30 AM EST Clinical Support [facility] MED & PEDS 505 [place] [address] Fariba Gandhi, RN 505 [place] [address] documented as of this encounter Visit Diagnoses Diagnosis Low back pain radiating down leg documented in this encounter Additional Health Concerns Assessment Noted Time PHQ-9 Depression Total Score: 3 06/04/19 23 3:42 PM EDT documented as of this encounter Care Teams Registered Nurse Step Down Relationship Specialty Start Date End Date Carlo Santana MD 505 [place] [address] PCP - General Internal Medicine 12/28/17 documented as of this encounter
--- OUTSIDE RECORDS SUMMARY | 2025-01-17 17:02 | XMS_ITS | Encounter Summary ---
Author Organization [employer] Address [address] [facility] [address] 7t [place] [address] Care Team Providers Care Car Sander Name Role Phone Carlo Santana MD Primary Care Provider [phone] Reason for Visit * Reason Onset Date Comments Results 12/19/2023 Encounter Details Date Type Department Care Team ([facility] st Contact Info) Description 12/19/2023 Telephone [facility] MEDICINE 230 [place] [address] Carlo Santana MD [address] [facility] [address] [place], [place] [phone] Results Social History Tobacco Use Types Packs/Day [...] Notes * Telephone Encounter - Angel Luis Denilson - 12/19/2023 11:59 AM EDT TC from pt requesting call back regarding Results. Type of results: Labs Date when done: 12/15 Facility[facility] documented in this encounter Plan of Treatment Upcoming Encounters Date Type Department Care Team (Late st Contact Info) Description 01/30/2025 10:30 AM EST Clinical Support [facility] MED & PEDS 505 [place] [address] Fariba Gandhi, HUGO 505 [place] [address] documented as of this encounter Visit Diagnoses Not on filedocumented in this encounter Additional Health Concerns Assessment Noted Time PHQ-9 Depression Total Score: 3 06/04/19 23 3:42 PM EDT documented as of this encounter Care Teams Car Sander Relationship Specialty Start Date End Date Carlo Santana MD 505 [place] [address] PCP - General Internal Medicine 12/28/17 documented as of this encounter
--- OUTSIDE RECORDS SUMMARY | 2025-01-17 17:02 | XMS_ITS | Encounter Summary ---
Author Organization [employer] Address [address] [facility] 7t [place] [address] Care Team Providers Care Digital Learning Platforms Manager Name Role Phone Carlo Santana MD Primary Care Provider [phone] Reason for Visit * Reason Onset Date Comments Medication Question 04/17/2024 Med Refill 04/17/2024 Encounter Details Date Type Department Care Team ([facility] st Contact Info) Description 04/17/2024 Telephone [facility] MEDICINE 230 [place] [address] Carlo Santana MD 505 [place], [place] [phone] Medication Question; Med Refill Social History Tobacco [...] only has 2 left. Contact pt at [phone] documented in this encounter Plan of Treatment Upcoming Encounters Date Type Department Care Team ([facility] st Contact Info) Description 01/30/2025 10:30 AM EST Clinical Support [facility] MED & PEDS [address] [place] [address] Fariba Gandhi, HUGO 505 [place] [address] documented as of this encounter Visit Diagnoses Not on filedocumented in this encounter Additional Health Concerns Assessment Noted Time PHQ-9 Depression Total Score: 15 024 11:50 AM EST documented as of this encounter Care Teams Digital Learning Platforms Manager Relationship Specialty Start Date End Date Carlo Santana MD 505 [place] [address] PCP - General Internal Medicine 12/28/17 documented as of this encounter
--- OUTSIDE RECORDS SUMMARY | 2025-01-17 17:02 | XMS_ITS | Encounter Summary ---
Author Organization [employer] Address [address] [facility] 7t [place] [address] Care Team Providers Care Picker And Packer Name Role Phone Carlo Santana MD Primary Care Provider [phone] Reason for Visit * Reason Onset Date Comments Call Back Request 12/19/2023 Encounter Details Date Type Department Care Team ([facility] st Contact Info) Description 12/19/2023 Telephone [facility] MEDICINE 230 [place] [address] Carlo Santana MD [address] [facility] [address] [place], [place] [phone] Call Back Request Social History Tobacco Use [...] 01/30/2025 10:30 AM EST Clinical Support [facility] MED & PEDS 505 [place] [address] Fariba Gandhi, HUGO 505 [place] [address] documented as of this encounter Visit Diagnoses Not on filedocumented in this encounter Additional Health Concerns Assessment Noted Time PHQ-9 Depression Total Score: 3 06/04/19 23 3:42 PM EDT documented as of this encounter Care Teams Picker And Packer Relationship Specialty Start Date End Date Carlo Santana MD 505 [place] [address] PCP - General Internal Medicine 12/28/17 documented as of this encounter
--- OUTSIDE RECORDS SUMMARY | 2025-01-17 17:02 | XMS_ITS | Encounter Summary ---
Author Organization [employer] Address [address] [place] [address] 7 [place] [address] Care Team Providers Care Bath Attendant Name Role Phone Carlo Santana MD Primary Care Provider [phone] Reason for Referral * Imaging (Routine) - Canceled Specialty Diagnoses / Procedures Referred By Contac t Referred To Contact Radiology Diagnoses Transaminitis Procedures US Abdomen Complete Carlo Santana MD [address] [place] [address] Phone: tel: fax: Referral ID Status Reason Start Date Expiration Date V isits Requested Visits Authorized [id number] Canceled 04/11/2024 04/11/2025 1 1 Encounter Details Date Type Department Care Team ([facility] Contact Info) Description 04/11/2024 Orders Only [facility] [address] [place] [address] Carlo Santana MD [address] [place] [address] Normocytic anemia (Primary Dx); Transaminitis Social History [...] [facility] [address] [place] [address] Fariba Gandhi, HUGO [address] [place] [address] Scheduled Orders Name Type Priority Associated Diagnoses [...] 11:35 AM EDT) Mitochondrial Antibodies NEGATIVE NEGATIVE [facility] Comment:THIS TEST WAS PERFOR MED AT:[employer] [place] [id number] HUTTON MD Mitochondrial Ab Titer TNP [facility] Blood Venous blood specimen / Unknown 08/16/2024 11:35 AM EDT 08/16/2024 11:35 AM EDT us Carlo Santana MD LAB BLOOD ORDERABLES Final Result [facility] [address] [place] [phone] * Hepatitis A,B,C Profile (08/16/2024 11:35 AM EDT) Hepatitis A IgM Nonreactive Nonreactive [facility] Comment:IgM antibodies to OLIVA V not detected; does not exclude earlyacute or recovered HAV infection. ~Hepatitis B Surface Antibody REACTIVE Nonreactive [facility] Comment:REACTIVE: > 11.99 mI U/mL Hepatitis B Core Antibody Nonreactive Nonreactive [facility] Hepatitis C Antibody Nonreactive Nonreactive [facility] Comment:Antibodies to HCV no t detected; does not exclude early acuteHCV infection. Hepatitis B Surface Ag Negative Negative [facility] Blood Venous blood specimen / Unknown 08/16/2024 11:35 AM EDT 08/16/2024 11:35 AM EDT us Carlo Santana MD LAB BLOOD ORDERABLES Final Result Performing Organization Address [facility]/ZIP Co de Phone Number [facility] [address] [place] [address] [phone] * T-SPOT??.TB (04/11/2024 11:20 AM EST) [facility] T Spot TB Negative Negative [facility] Comment:A negative test resu lt [...] as aquantitative test. TS PANEL A 0 [facility] TS PANEL B 1 [facility] Negative Control Passed [facility] Positive Control Passed [facility] Comment:For additional infor matpaulei, please refer [email or web address](This link is being provided for informational/educational purposes only.)THIS TEST WAS PERFORMED AT:[employer] [id number] [place] [id number] KOENIG MD,PHD 04/11/2024 11:2 0 AM EST 04/11/2024 2:39 PM EST Carlo Santana MD LAB BLOOD ORDERABLES Final Result Performing Organization Address [facility]/ZIP Co de Phone Number [facility] [address] [place] [address] [phone] documented in this encounter Visit Diagnoses Diagnosis Normocytic anemia- Primary Unspecified anemia Transaminitis Nonspecific elevation of levels of transaminase or lactic acid dehydrogenase (LDH) documented in this encounter Additional Health Concerns Assessment Noted Time PHQ-9 Depression Total Score: 15 024 11:50 AM EST documented as of this encounter Care Teams Bath Attendant Relationship Specialty Start Date End Date Carlo Santana MD [address] [place] [address] [place] [phone] PCP - General Internal Medicine 12/28/17 documented as of this encounter
--- OUTSIDE RECORDS SUMMARY | 2025-01-17 17:02 | XMS_ITS | Encounter Summary ---
Author Organization [employer] Address [address] [facility] [address] [place] [address] Care Team Providers Care Fire Department Battalion Chief Name Role Phone Carlo Santana MD Primary Care Provider [phone] Reason for Visit * Reason Onset Date Comments Appointment Request 12/13/2023 Encounter Details Date Type Department Care Team ([facility] st Contact Info) Description 12/13/2023 Telephone [facility] [address] [place] [address] Carlo Santana MD [address] [place], [place] [phone] Appointment Request Social History Tobacco Use Types [...] 01/30/2025 10:30 AM EST Clinical Support [facility] [address] [place] [address] Fariba Gandhi, HUGO [address] [place] [address] documented as of this encounter Visit Diagnoses Not on filedocumented in this encounter Additional Health Concerns Assessment Noted Time PHQ-9 Depression Total Score: 3 06/04/19 23 3:42 PM EDT documented as of this encounter Care Teams Fire Department Battalion Chief Relationship Specialty Start Date End Date Carlo Santana MD [address] [place] [address] PCP - General Internal Medicine 12/28/17 documented as of this encounter
== END 2025-01-17 15:02 | disposition home or self-care (01) ==
LOC: HO.HUSH 13:56
PROVIDERS: PCP Internal Medicine; Visit Provider Urology
DX: N39.41 Urge incontinence (principal); R15.9 Full incontinence of feces; N39.8 Other specified disorders of urinary system; Z13.9 Encounter for screening, unspecified
CPT/HCPCS: 99214